=== PATIENT | female | born 1935 | race Caucasian/White ===

== ENCOUNTER → 2016-08-15 | Outpatient (CLI) | payer MEDICARE, BC ==
--- NOTE | 2016-08-16 07:18 | MM ---
Reason for exam: additional evaluation requested from abnormal screening. Last mammogram was performed less than 1 month ago. History: Patient is postmenopausal and has history of endometrial cancer at age 66. Cancelled Left Mammotome of the left breast, September 22, 2009. Benign cyst aspiration of the left breast, 1996. Physical Findings: Nurse did not find any significant physical abnormalities on exam. MG Work Up Mamm w CAD RT LM and CC with magnification view(s) were taken of the right breast. Prior study comparison: August 05, 2016, bilateral MG 3d screening mammo w/cad. August 03, 2015, bilateral MG screening mammo w CAD. Calcifications are part of the calcified vessel. No suspicious calcifications. These results were verbally communicated with the patient and result sheet given to the patient on 08/15/16. ASSESSMENT: Benign, BI-RAD 2 RECOMMENDATION: Return to routine screening mammogram schedule for both breasts.
== END | disposition home or self-care (01) ==
LOC: RADMAMWWP 14:22
PROVIDERS: ATTEND Internal Medicine Hematology & Oncology
DX: R92.8 Other abnormal and inconclusive findings on diagnostic imaging of breast (principal)

== ENCOUNTER 2017-01-11 06:53 | Day surgery (SDC) | payer MEDICARE, BC ==
--- NOTE | 2016-12-23 21:30 | P.GSHP ---
History of Present Illness H&P Date: 12/23/16 Chief Complaint: Left brachial skin lesion Patient seen in the office complaining of an atypical skin lesion in the left brachial region. It was first noticed a few months ago but has been increasing in size and at times his bleeding. The family states it is ulcerating at times. No history of similar events in the past. Only minimal discomfort. No prior biopsy. Past Medical History Past Medical History: Atrial Fibrillation, Coronary Artery Disease (CAD), Cancer , Deep Vein Thrombosis (DVT), GERD/Reflux, Hypertension Additional Past Medical History / Comment(s): Macular Degeneration, Needs hip replacement on Right Side. Greenfleid Filter in right leg. has gallstones, stage 4 kidney failure History of Any Multi-Drug Resistant Organisms: ESBL, VRE Date of last positivie culture/infection: 01/13/16 MDRO Source:: urine, E.coli, VRE 09/29/13 Past Surgical History: Appendectomy, Hysterectomy, Orthopedic Surgery Additional Past Surgical History / Comment(s): uterus ca 2001 and Groin Ca 2003 , gastrointestinal surgery for bowel obstruction 01/22/2014. left hip replacement Past Anesthesia/Blood Transfusion Reactions: No Reported Reaction Past Psychological History: No Psychological Hx Reported Smoking Status: Former smoker Past Alcohol Use History: None Reported Past Drug Use History: None Reported Medications and Allergies Home Medications Medication Instructions Recorded Confirmed Type Allopurinol [Zyloprim] 200 mg PO DAILY@79901/22/14 11/08/16 History Digoxin [Lanoxin] 125 mcg PO DAILY@69901/22/14 11/08/16 History Furosemide [Lasix] 40 mg PO DAILY@79901/22/14 11/08/16 History Linagliptin [Tradjenta] 5 mg PO DAILY@1600 01/22/14 11/08/16 History Omeprazole [PriLOSEC] 20 mg PO DAILY@69901/22/14 11/08/16 History Rivaroxaban [Xarelto] 15 mg PO DAILY@79901/22/14 11/08/16 History Spironolactone [Aldactone] 25 mg PO DAILY@79901/22/14 11/08/16 History Docusate Sodium [Stool Softener] 100 mg PO BID@899,199902/22/14 11/08/16 History Garlic 1 tab PO BID@899,199902/22/14 11/08/16 History Calcitriol 0.25 mcg PO DIRECTED 08/22/14 11/08/16 History Diclofenac Sodium Gel [Voltaren 1 applic TOPICAL Q8H PRN 01/13/16 11/08/16 History Gel] Diltiazem HCl [Diltiazem ER] 240 mg PO DAILY@0701/13/16 11/08/16 History Magnesium Oxide [Mag-Ox] 400 mg PO DAILY@79901/13/16 11/08/16 History Wheat Dextrin [Benefiber] 1 pack PO BID@799,199901/13/16 11/08/16 History traMADol HCL [Ultram] 50 mg PO Q8HR PRN 01/13/16 11/08/16 History Cholecalciferol [Vitamin D3] 2,000 mg PO DAILY 11/08/16 11/08/16 History Allergies Allergy/AdvReac Type Severity Reaction Status Date / Time atorvastatin calcium Allergy Unknown Verified 11/08/16 08:13 [From Lipitor] hydrocodone Allergy Vomiting Verified 11/08/16 08:13 Surgical - Exam GENERAL: Well-developed, well-nourished HEENT: Normocephalic, sclera nonicteric, EOM intact, no swelling CHEST: No deformities ABDOMEN: Soft, nontender, nondistended EXTREMITIES: No deformities, motor grossly intact, Left brachial region posterior laterally reveals a 1.5-2 cm raised ulcerated almost necrotic- appearing skin lesion minimally tender, no satellite lesions, no adenopathy in the axilla or Antecubital region NEURO: Awake and alert Assessment and Plan (1) Skin cancer Narrative/Plan: Options discussed with the patient and her family. They wish for us to proceed with surgical resection. We'll proceed under sedation. Risks of bleeding, infection, potential need for reresection,, recurrence were discussed. They understand and wish to proceed. Status: Acute
[2017-01-05 14:41] VITALS: BMI 33.0
[~2017-01-11 06:53] MED LIST: HEPARIN SODIUM,PORCINE 5,000 UNIT/ML 1 ML VIAL SQ ONE; HYDROmorphone 1 MG/ML 1 ML SYRINGE IVP PRN; LACTATED RINGERS 1,000 ML IV SCH; LIDOCAINE 1% 20 ML VIAL (10MG/ML) FOR IV START INTRADERMA PRN; Pre Op ABX Message 1 EACH MISC MISCELLANE ONE
[2017-01-11 07:21] VITALS: RESP 16; TEMP 97.7
[2017-01-11 07:25] LABS: Glucose,Whole Blood 146 mg/dL (75-99)
[2017-01-11] MEDS ORDERED: ONDANSETRON 4 MG/2 ML VIAL IVP ONE (07:49)
[2017-01-11] MEDS ORDERED: BUPIVACAIN-EPI 0.25%-1:200,000 30 ML VIAL SQ ONE ×2 (08:03)
[2017-01-11 08:13] LABS: Calcium 9.3 mg/dL (8.4-10.2); Potassium 4.2 mmol/L (3.5-5.1)
[2017-01-11] MEDS ORDERED: MIDAZOLAM 2 MG/2 ML VIAL ONE (08:24)
[2017-01-11] MEDS ORDERED: fentaNYL (PF) 50 MCG/ML 2 ML AMP ONE (08:24)
[2017-01-11] MEDS ORDERED: PROPOFOL 10 MG/ML 20 ML VIAL IV ONE (08:24)
[2017-01-11] MEDS ORDERED: SODIUM CHLORIDE 0.9% 50 ML with ceFAZolin 2,000 MG IV ONE ×2 (08:30)
[2017-01-11] MEDS ORDERED: BACITRACIN 500 UNIT/GM OINT 28.4 GM TUBE TOPICAL ONE (08:47)
[2017-01-11] MEDS ORDERED: HYDROcodone/APAP 5-325MG 1 EACH TAB PO PRN (08:59)
[2017-01-11] MEDS ORDERED: NALOXONE 0.4 MG/ML 1 ML VIAL IV PRN (08:59)
[2017-01-11 09:06] LABS: Glucose,Whole Blood 174 mg/dL (75-99)
--- NOTE | 2017-01-11 09:10 | P.OP ---
Date of Procedure: 01/11/17 Preoperative Diagnosis: Postoperative Diagnosis: Procedure(s) Performed: PREOPERATIVE DIAGNOSIS: Left arm lesion POSTOPERATIVE DIAGNOSIS: Same PROCEDURE: Excision left arm lesion SURGEON: Yevgeniy EBL: Minimal ANESTHESIA: Sedation COMPLICATIONS: None OPERATIVE PROCEDURE: Patient In the supine position. Left arm was prepped and draped in usual sterile fashion. The 2.1 cm mass in the left posterior brachial region was prepped and draped in usual sterile fashion. The skin was localized with Marcaine. An elliptical incision was made with a margin of approximately 6 mm laterally. The subcutaneous tissues were dissected using both the scalpel and electrocautery. The subcutaneous tissues were closed using 3-0 Vicryl sutures. The skin was closed using a running 4-0 nylon stitch. Sterile dressings were applied. DISPOSITION: Stable to recovery room Implants: Indications for Procedure: Operative Findings: Description of Procedure:
[2017-01-11 09:41] VITALS: BP 116/69; PULSE 71
== END 2017-01-11 09:52 | disposition home or self-care (01) ==
LOC: OR 06:53
PROVIDERS: ATTEND Surgery
DX: C44.619 Basal cell carcinoma of skin of left upper limb, including shoulder (principal); I10 Essential (primary) hypertension; E78.5 Hyperlipidemia, unspecified; I25.10 Atherosclerotic heart disease of native coronary artery without angina pectoris; I48.91 Unspecified atrial fibrillation; E11.9 Type 2 diabetes mellitus without complications; H35.30 Unspecified macular degeneration; K21.9 Gastro-esophageal reflux disease without esophagitis; M10.9 Gout, unspecified; Z87.891 Personal history of nicotine dependence; Z79.899 Other long term (current) drug therapy; Z79.01 Long term (current) use of anticoagulants; Z88.8 Allergy status to other drugs, medicaments and biological substances; Z86.718 Personal history of other venous thrombosis and embolism
CPT/HCPCS: 88305; 80048; 11603; J2250; J1644; J2405; J3010; J0690; J2704

== ENCOUNTER → 2017-02-24 | Outpatient (CLI) | payer MEDICARE, BC ==
--- NOTE | 2017-02-24 10:04 | CT ---
EXAMINATION TYPE: CT ChestAbdPelvis wo con DATE OF EXAM: 02/24/2017 COMPARISON: January 08, 2015 HISTORY: Carcinoma of the uterus CT DLP: 640.30mGycm Unenhanced CT of the Chest, Abdomen and Pelvis Unenhanced CT of the chest ,abdomen and pelvis is performed. The lack of intravenous contrast limits evaluation of the solid and hollow viscera. Oral contrast: Yes CT Chest: LUNGS: The lungs are clear and free of infiltrate or atelectasis. No pulmonary nodule or mass is det ected. No pleural effusion or CT evidence of interstitial lung disease. MEDIASTINUM: Thoracic aorta is of normal caliber. The heart is enlarged. No evidence for mediastin al mass or adenopathy. HILAR STRUCTURES: No evidence for mass. No hilar adenopathy is appreciated. OTHER: No significant abnormality. CONTRAST CT ABDOMEN AND PELVIS: LIVER/GB: Numerous calcified gallstones without wall thickening. No space occupying hepatic lesion. B iliary tree is of normal caliber. PANCREAS: No inflammation. No distinct mass. SPLEEN: No splenic enlargement. No lesion seen. ADRENALS: No nodule. No thickening. KIDNEYS/BLADDER: Renal parenchymal thinning noted bilaterally. No hydronephrosis. No nephrolithiasi s. No disctinct renal mass. BOWEL: Normal appendix. Normal bowel caliber. No inflammation. Small sliding-type hiatal hernia. Co lonic diverticulosis without diverticulitis. GENITAL ORGANS: No gross abnormality. LYMPH NODES: No greater than 1cm abdominal or pelvic lymph nodes areappreciated. AORTA: No significant abnormality. OSSEOUS STRUCTURES: Degenerative changes lumbar spine. Left hip prosthesis. OTHER: IVC filter is noted. IMPRESSION: 1. No CT evidence to suggest metastatic disease at this time. Overall stable examination.
== END | disposition home or self-care (01) ==
LOC: RADCTMAIN 09:19
PROVIDERS: ATTEND Internal Medicine Hematology & Oncology
DX: C54.9 Malignant neoplasm of corpus uteri, unspecified (principal)
CPT/HCPCS: 71250; 74176

== ENCOUNTER → 2017-05-11 | Outpatient (CLI) | payer MEDICARE, BC ==
[2017-05-11 14:02] VITALS: BP 176/84; PULSE 44; RESP 16; TEMP 97.4
--- NOTE | 2017-05-11 16:11 | P.CONS ---
History of Present Illness - Reason for Consult Consult date: 05/11/17 - History of Present Illness This is the initial consultation visit for this 81 years old female , with a chronic history of severe right hip pain, pain is constant and increases with any activity intensity of the pain is 8/10 increased to 10 over 10, he was diagnosed with also arthritis of the right hip and she was evaluated by orthopedic surgeon , Dr. Dr. Wan and he did not recommend surgical interventions, go she is high risk secondary to history of a blood clot in her right leg, and he recommended medication management, she'll continue to use Ultram 50 mg every morning and 50 mg every 2 p.m. and 100 mg daily at bedtime, she denies any side effect of the medication she denies any excessive drowsiness or sleepiness and she for the current medication helping to some degree but she wished that she had a better control of her pain, she tried Tylenol 3 she had significant side effects from it , she had side effects from hydrocodone and oxycodone, her insurance did not cover fentanyl patch,, she denies any bowel or bladder dysfunction, she describe her pain as sharp stabbing aching pain localized in the right hip area exacerbated with standing and walking and twisting bending, tried physical therapy without any benefit Past Medical History Past Medical History: Atrial Fibrillation, Coronary Artery Disease (CAD), Cancer , Diabetes Mellitus, Deep Vein Thrombosis (DVT), Eye Disorder, GERD/Reflux, Hypertension Additional Past Medical History / Comment(s): Macular Degeneration, Needs hip replacement on Right Side. Toyin Filter in right leg. has gallstones, stage 3 kidney failure; Uterine & groin CA; "borderline diabetes" History of Any Multi-Drug Resistant Organisms: ESBL, VRE Year Discovered:: 01/13/16 MDRO Source:: urine, E.coli, VRE 09/29/13 Past Surgical History: Appendectomy, Hysterectomy, Orthopedic Surgery Additional Past Surgical History / Comment(s): uterus ca 2001 and Groin Ca 2003 , gastrointestinal surgery for bowel obstruction 01/22/2014. left hip replacement Past Anesthesia/Blood Transfusion Reactions: No Reported Reaction Past Psychological History: No Psychological Hx Reported Smoking Status: Former smoker Past Alcohol Use History: None Reported Additional Past Alcohol Use History / Comment(s): smoked 1 pkg from 1961 to 1971 Past Drug Use History: None Reported - Past Family History Mother Family Medical History: No Reported History Medications and Allergies Home Medications Medication Instructions Recorded Confirmed Type Allopurinol [Zyloprim] 200 mg PO DAILY@0801/22/14 05/11/17 History Digoxin [Lanoxin] 125 mcg PO DAILY@0701/22/14 05/11/17 History Furosemide [Lasix] 40 mg PO DAILY@0800 01/22/14 05/11/17 History Linagliptin [Tradjenta] 5 mg PO DAILY@159901/22/14 05/11/17 History Omeprazole [PriLOSEC] 20 mg PO DAILY@69901/22/14 05/11/17 History Rivaroxaban [Xarelto] 15 mg PO DAILY@79901/22/14 05/11/17 History Spironolactone [Aldactone] 25 mg PO DAILY@79901/22/14 05/11/17 History Docusate Sodium [Stool Softener] 100 mg PO BID@0900,199902/22/14 05/11/17 History Garlic 1 tab PO BID@899,199902/22/14 05/11/17 History Calcitriol 0.25 mcg PO DIRECTED 08/22/14 05/11/17 History Diclofenac Sodium Gel [Voltaren 1 applic TOPICAL Q8H PRN 01/13/16 05/11/17 History Gel] Diltiazem HCl [Diltiazem ER] 240 mg PO DAILY@69901/13/16 05/11/17 History Magnesium Oxide [Mag-Ox] 400 mg PO DAILY@79901/13/16 05/11/17 History Wheat Dextrin [Benefiber] 1 pack PO BID@08,199901/13/16 05/11/17 History traMADol HCL [Ultram] 50 mg PO Q8HR PRN 01/13/16 05/11/17 History Cholecalciferol [Vitamin D3] 2,000 mg PO DAILY 11/08/16 05/11/17 History Acetaminophen [Tylenol Extra 500 mg PO DIRECTED PRN 05/11/17 05/11/17 History Strength] Brinzolamide/Brimonidine Tart 1 drop BOTH EYES BID 05/11/17 05/11/17 History [Simbrinza 1%-0.2% Eye Drops] Lanacane Otc Cream 05/11/17 History Vit C/E/Zn/Coppr/Lutein/Zeaxan 2 each PO DAILY 05/11/17 05/11/17 History [Preservision Areds 2 Softgel] Allergies Allergy/AdvReac Type Severity Reaction Status Date / Time atorvastatin calcium Allergy Unknown Verified 05/11/17 13:40 [From Lipitor] hydrocodone Allergy Vomiting Verified 05/11/17 13:40 Physical Exam Vitals: Vital Signs Temp Pulse Resp BP 05/11/17 13:45 97.4 F L 44 L 16 176/84 Intake and Output 05/11/17 05/11/17 05/11/17 06:59 14:59 22:59 Other: Weight 81.647 kg Patient Weight 05/12/17 06:59 Weight 81.647 kg Social history : not smoker , NO ETOH , NO Illegal drugs use Review of Systems : 1- Constitutional : no chills , no fever , no night sweats , 2- Ears : no ear discharge , no change in hearing 3-Nose, Mouth ,Throat ; no bleeding gums, no sore throat , no epistaxis , 4-Cardiovascular : Denies chest pain, , no orthopnea , no palpitation 5-Respiratory : Denies cough , no dyspnea , no hemoptysis 6-Gastrointestinal :, no change in bowel habits , no coffee- ground emesis . 7-Genitourinary : No hematuria , no discharge , no incontinence, 8-Musculoskeletal : No gait dysfunction , report low back pain , 9- Neurological : no ataxia , no tremor , no sezure , 10-Psychatric , no suicidal ideation no hallucination 11- Endocrine : no cold intolerence , no polyuria , no polydypsia , 12-Hematologic : no easy bleeding , no easy brusing , 13-Allergic / immunology : no angioedema , no wheezing ,no allergic rhinitis 14-Integumentary : no brttle nails , no change hair / nails , no foot/leg ulcers . Physical Examinations : 1-Constitutional : Cooperative , not in acute distress . 2-HEENT : nech ; supple , no Lymphadenopathy , no Thyromegaly , :eyes , no icterus, no photophobia . ENT : , normal oropharynx , no Thrush 3- Respiratory : Chest clear to auscultations Bilaterally , no wheezing . 4- Cardiovascular : irregular rate and rhythem , S1 , S2 , no S3 , no S4. 5- Gastrointestinal: abdomen soft no tenderness , no organomegally . 6- Genitourinary : Defferred . 7-Integumentary : No cellulitis , no ulcers , normal skin turgor , no cyanotic . 8- neurologic : Cranial nerve II to XII intact , no focal neurological deffecit 9-psychatric : alert , oriented X 3 , appropriate affect , intact judgment and insight . 10-Lymphatic : no Lymphadenopathy. 11- musculoskeltal: abnormal gait Severe pain in the right hip with flexion and extension and severe tenderness in the lateral palpation of the right hip, severe pain at the groin with manipulated the right hip joint Assessment and Plan Plan: Assessment and plan= severe right hip pain secondary to also arthritis of the right hip she is not candidate to have a total hip replacement secondary to history of blood clot in the right lower extremity Patient could benefit from increased the ultram to 50 mg 2 tablets every 8 hours ( total 6 per day ) In the future she continued to have pain then we can consider doing a block of the right hip and possible radiofrequency ablation of the hip joint , I will try to keep the interventional pain management as a last options ,because she had a history of atrial fibrillation and she is currently on blood thinner ( Xeralto ) also patient had a blood clot in the lower extremity, patient will be seen in the pain clinic in 4-6 weeks to reevaluate Time with Patient: Greater than 30
== END | disposition home or self-care (01) ==
LOC: PNWHC3 12:32
PROVIDERS: ATTEND Specialist
DX: M16.11 Unilateral primary osteoarthritis, right hip (principal); I48.91 Unspecified atrial fibrillation; I25.10 Atherosclerotic heart disease of native coronary artery without angina pectoris; E11.9 Type 2 diabetes mellitus without complications; K21.9 Gastro-esophageal reflux disease without esophagitis; I10 Essential (primary) hypertension; Z88.5 Allergy status to narcotic agent; Z88.8 Allergy status to other drugs, medicaments and biological substances; Z86.718 Personal history of other venous thrombosis and embolism; Z85.9 Personal history of malignant neoplasm, unspecified; Z87.891 Personal history of nicotine dependence; Z79.01 Long term (current) use of anticoagulants; Z79.899 Other long term (current) drug therapy
CPT/HCPCS: 99211

== ENCOUNTER → 2017-06-22 | Outpatient (CLI) | payer MEDICARE, BC ==
[2017-06-22 12:50] VITALS: BP 125/80; PULSE 75; RESP 16; TEMP 98.2
--- NOTE | 2017-06-22 14:47 | CT ---
EXAMINATION TYPE: CT lumbar spine wo con DATE OF EXAM: 06/22/2017 COMPARISON: NONE HISTORY: Right hip osteoarthritis CT DLP: 629.60 mGycm CONTRAST: None TECHNIQUE: CT of the lumbar spine is performed on a spiral scan at 3 mm thick sections. Reconstructed images are performed in the coronal and sagittal planes. FINDINGS: T10-T11: No focal disc herniation or significant disc bulge is evident. No spinal canal stenosis or n eural foraminal stenosis present. T11-T12: No focal disc herniation or significant disc bulge is evident. No spinal canal stenosis or neural foraminal stenosis present. T12-L1: No focal disc herniation or significant disc bulge is evident. No spinal canal stenosis or neural foraminal stenosis is present. There is a small left paracentral calcification likely calcific ation along the disc annulus which may have mild anterior thecal sac compression. No stenosis however is evident. L1-L2: Minimal disc bulge is present with anterior thecal sac contact. No spinal canal stenosis or ne ural foraminal stenosis present. L2-L3: Mild disc bulge has anterior thecal sac compression. No spinal canal stenosis or neural forami nal stenosis is present. L3-L4: Broad-based disc bulge has moderate anterior thecal sac compression. Ligamentum flavum laxity and facet hypertrophy are contributing to spinal canal stenosis. Bilateral foraminal narrowing is pre sent, greater on the left. L4-L5: Grade 1 spondylolisthesis is present with disc uncovering. Broad-based anterior thecal sac com pression from the disc uncovering is evident. Facet hypertrophy and ligamentum flavum laxity is contr ibuting to spinal canal stenosis at this level. Facet degenerative changes are present. L5-S1: Broad-based disc bulge is present with anterior thecal sac contact. No AP spinal canal stenosi s present. Some calcification of the posterior disc space may be present. Neural foramen are patent. Vertebral body heights are preserved. Minimal disc vacuum phenomenon may be present at L3-4. Vascular calcification is within the aorta. Note is made of an inferior vena cava filter. IMPRESSION: 1. Spinal canal stenosis due to disc bulging and facet hypertrophy with ligamentum flavum laxity L3-4 and to a lesser degree L4-5. 2. Grade 1 spondylolisthesis of L4 anterior and L5. 3. Additional levels of disc bulging with anterior thecal sac contact without stenosis.
--- NOTE | 2017-06-22 20:40 | P.PN ---
Subjective Progress Note Date: 06/22/17 this is 82 years old female with a chronic history of severe right hip pain, most with osteoarthritis of the hip and she is not a surgical candidate, or hip replacement because she had history of clot in the right lower extremity, he shouldn't currently complaining of severe low back pain, and severe right hip pain and she is currently on Ultram 50 mg 2 tablets every 8 hours, she continued to have severe pain in spite of the medication management, pain is constant and increases with any activity she is not able to ambulate on her own , she is using a cane, wheelchair , pain is constant but fluctuates in intensity between 6-10 over 10 Objective - Vital Signs Vital signs: Vital Signs Temp 98.2 F 06/22/17 12:39 Pulse 75 06/22/17 12:39 Resp 16 06/22/17 12:39 BP 125/80 06/22/17 12:39 Pulse Ox Intake & Output 06/22/17 06/22/17 06/23/17 06:59 18:59 06:59 Weight 80.739 kg - Exam Physical Examinations : 1-Constitutiona : Cooperative , not in acute distress . 2-HEENT : nech ; supple , no Lymphadenopathy , normal thyroid size . eyes : no ptosis , no icterus, no photophobia . ENT : normal of hearing , normal oropharynx , no Thrush . 3- Respiratory : Chest clear to auscultations Bilaterally , no wheezing , no Rhonchi . 4- Cardiovascular : regular rate and rhythem , S1 , S2 , no S3 , no S4. 5- Gastrointestinal : abdomen soft no tenderness , bowel sounds positive all four quadrents , no organomegally . 6- Genitourinary : Defferred . 7- neurologic : Cranial nerve II to XII intact , no focal neurological deffecit . 8-psychatric : alert , oriented X 3 , appropriate affect , intact judgment and insight . 9-Lymphatic : no Lymphadenopathy . 10- musculoskeltal : can not Ambulate on her own , severe pain in flexion and extension of the both hips R>L , Lumber spine = normal moter stegnth lower extremities ,thigh and legs .4/5 positive lumber facet Loading Test strait leg raising test positive at 30 degree , RT ,LT , Fabere test positive RT and positive LT . Sever tenderness over the Sacroiliac joint on the Right , and Left side Assessment and Plan Plan: Assessment and plan= chronic low back pain secondary to lumbar degenerative disc disease , lumbar spondylosis with lumbar facet arthropathy , Severe osteoarthritis of the hip joint mainly the right side,she is not a candidate to have right hip replacement chronic and current use of high-risk medication (opioids) Patient denies any side effects of the current pain medication and the current treatment/medication ML and the patient to do activity of daily living , Diagnoses, prognosis, treatment options, including but not limited to physical therapy, medication management, interventional therapies, and surgery, were discussed with the patient All the questions answered Patient signed the narcotic agreement, and he was orally counseled, not to overuse, not to abuse, not to Divert , not tp sell pain medication, and to take it as prescribed only, Patient was counseled not to drive or operate heavy equipment while using narcotic medication, and advised not to use alcohol or any Illicit drugs while using the narcotis, the patient's verbalized understanding that lack of compliance with any of the above instructions and will likely to cause discharge from the pain service, not to renew his narcotic prescriptions Medication managements= patient will be given prescription refills for 1-refile ultram 50 MG 2 TABLETS EVERY 8 HOURS WHEN NECESSAR Interventional pain management= we'll consider doing diagnostic medial branch block lumbar area L3-4 /l 45/L5-S1 (had to stop Xarelto for 24 hours before the procedure ) Refferal = to regularly department to have computed tomography scan of the lumbar spine (not candidate to have MRI because patient had a Toyin filter ) Follow-up=2-3 weeks ,
== END | disposition home or self-care (01) ==
LOC: PNWHC3 12:21
PROVIDERS: ATTEND Specialist
DX: M51.36 Other intervertebral disc degeneration, lumbar region (principal); M47.816 Spondylosis without myelopathy or radiculopathy, lumbar region; M46.86 Other specified inflammatory spondylopathies, lumbar region; M16.11 Unilateral primary osteoarthritis, right hip
CPT/HCPCS: 72131; G0463; 99211

== ENCOUNTER → 2017-07-20 | Outpatient (CLI) | payer MEDICARE, BC ==
[2017-07-20 12:55] VITALS: BP 157/81; RESP 18
--- NOTE | 2017-07-20 15:32 | P.PN ---
Subjective Progress Note Date: 07/20/17 This is follow-up visit for this patient with a history of severe and chronic hip pain and low back pain , diagnosed with osteoarthritis of the right hip , to surgical candidate because she had a clot in the lower extremity and , recently we ordered a computed tomography scan of the lumbar spine , as he today to diagnosed a result of the skin of the spine . Patients currently on 1-ultram 50 mg 2 tablets every 8 hours Patient denies any side effects of the medication, denies excessive drowsiness or sleepiness, denies suicidal ideation, and reports that the current pain medication is NOT helping To control the pain and improve activity of daily living Patient denies any motor or sensory deficit , patient denies any fever or night sweats, denies any change in the bowel movements or urination Physical Examinations : 1-Constitutiona : Cooperative , not in acute distress . 2-HEENT : nech ; supple , no Lymphadenopathy , no Thyromegaly , normal thyroid size . eyes : no ptosis , no icterus, no photophobia . ENT : normal of hearing , normal oropharynx , no Thrush . 3- Respiratory : Chest clear to auscultations Bilaterally , no wheezing , no Rhonchi . 4- Cardiovascular : regular rate and rhythem , S1 , S2 , no S3 , no S4. 5- Gastrointestinal : abdomen soft no tenderness , bowel sounds positive all four quadrents , no organomegally . 6- Genitourinary : Defferred . 7- neurologic : Cranial nerve II to XII intact , no focal neurological deffecit . 8-psychatric : alert , oriented X 3 , appropriate affect , intact judgment and insight . 9-Lymphatic : no Lymphadenopathy . 10- musculoskeltal : exams of the Lumber spine = motor strength lower extremities ,thigh and legs .4/5 deep tendon reflexes : normal Knee Jerk , normal ankle Jerk . lumber facet Loading Test positive strait leg raising test positive at 30 degree , RT ,LT , Fabere test positive RT and positive LT . Range of motion: Range of motion in flexion of the lumbar spine 30 degrees Range of motion range of motion of extension of the lumbar spine 10 Sever tenderness over the Sacroiliac joint on the Right , and Left side Active and passive movement of the right hip associated with severe pain Computed tomography scan of the lumbar spine reviewed and it showed patient had multilevel lumbar degenerative disc disease and lumbar facet arthropathy and lumbar anterolisthesis Assessment and plan = Chronic low back pain secondary to lumbar degenerative disc disease , lumbar spondylosis with facet arthropathy without myelopathy , severe right hip secondary to osteoarthritis of the right hip , patient is not a surgical candidate because she had a history of DVT in the lower extremity chronic and current use of high-risk medication (Opioids). Patient could benefit from a right hip steroid injections , seizure risk and benefits and alternatives discussed with the patient she agreed with the preceding patient has to stop her Xarelto 448 hours before the procedure
== END | disposition home or self-care (01) ==
LOC: PNWHC3 12:18
PROVIDERS: ATTEND Specialist
DX: G89.29 Other chronic pain (principal); M54.5 Low back pain; M25.551 Pain in right hip; M51.36 Other intervertebral disc degeneration, lumbar region; M47.816 Spondylosis without myelopathy or radiculopathy, lumbar region; M46.96 Unspecified inflammatory spondylopathy, lumbar region; M16.11 Unilateral primary osteoarthritis, right hip; Z79.899 Other long term (current) drug therapy; Z79.891 Long term (current) use of opiate analgesic
CPT/HCPCS: 99211

== ENCOUNTER → 2017-08-16 | Outpatient (CLI) | payer MEDICARE, BC ==
--- NOTE | 2017-08-17 07:42 | MM ---
Reason for exam: additional evaluation requested from prior study. Last mammogram was performed 1 year ago. History: Patient is postmenopausal and has history of endometrial cancer at age 66. Cancelled Left Mammotome of the left breast, September 22, 2009. Benign cyst aspiration of the left breast, 1996. Physical Findings: Nurse did not find any significant physical abnormalities on exam. MG 3D Diag Mammo W/Cad VIK Bilateral CC and MLO view(s) were taken. Prior study comparison: August 15, 2016, right breast MG work up mamm w CAD RT. August 05, 2016, bilateral MG 3d screening mammo w/cad. The breast tissue is heterogeneously dense. This may lower the sensitivity of mammography. Stable benign calcifications. Area improves in the upper outer quadrant, 10cm from nipple. Ultrasound is recommended. These results were verbally communicated with the patient and result sheet given to the patient on 08/16/17. ASSESSMENT: Incomplete: need additional imaging evaluation, BI-RAD 0 RECOMMENDATION: Ultrasound of the left breast.
--- NOTE | 2017-08-17 07:44 | USB ---
Reason for exam: additional evaluation requested from abnormal screening. History: Patient is postmenopausal and has history of endometrial cancer at age 66. Cancelled Left Mammotome of the left breast, September 22, 2009. Benign cyst aspiration of the left breast, 1996. US Breast Limited LT Left breast ultrasound demonstrates a 8 x 3 x 8mm lobular, mixed, hypoechoic lesion at 2 o'clock. These results were verbally communicated with the patient and result sheet given to the patient on 08/16/17. ASSESSMENT: Suspicious, BI-RAD 4 RECOMMENDATION: Ultrasound core biopsy of the left breast. Called Dr. Barreto with mammographic findings and has scheduled an appointment for the patient for 09/13/17 at 1:[address] Vuong. Biopsy scheduled for 08/31/17 at 12:20. PRELIMINARY REPORT CALLED AND FAXED TO DR. VUONG ON 08/17/17.
== END | disposition home or self-care (01) ==
LOC: RADMAMWWP 14:15
PROVIDERS: ATTEND Internal Medicine Hematology & Oncology
DX: R92.8 Other abnormal and inconclusive findings on diagnostic imaging of breast (principal)
CPT/HCPCS: 77066; 76642; G0279

== ENCOUNTER → 2017-08-24 | Outpatient (CLI) | payer MEDICARE, BC ==
[2017-08-24 10:47] LABS: Potassium 4.8 mmol/L (3.5-5.1)
== END ==
LOC: LABWHC1 09:56
PROVIDERS: ATTEND Internal Medicine Interventional Cardiology
DX: I10 Essential (primary) hypertension (principal)
CPT/HCPCS: 36415; 80051; 82565; 84520

== ENCOUNTER → 2017-08-31 | Day surgery (SDC) | payer MEDICARE, BC ==
[2017-08-31 11:39] VITALS: RESP 16; BMI 33.0
[2017-08-31 13:46] VITALS: BP 152/80; PULSE 75; TEMP 97.6
--- NOTE | 2017-08-31 19:56 | USB ---
EXAMINATION TYPE: US biopsy breast VAD LT DATE OF EXAM: 08/31/2017 CLINICAL HISTORY: R92.8 PREV ABN MAMMO. TECHNIQUE: Ultrasound guided core biopsy of left breast. COMPARISON: 08/16/2017 ultrasound and mammogram. FINDINGS: The procedure of ultrasound guided core biopsy was explained to the patient. Benefits, alternatives, and risks were discussed. An informed consent was then obtained. The patient was placed in supine positioning for imaging and for the procedure. The overlying skin was prepped and draped in usual sterile fashion. Lidocaine buffered with bicarbonate was used as anesthetic into the skin and subcutaneous tissue up to area of concern in the left breast. A erika was made with surgical scalpel. Under ultrasound guidance, a 12-gauge vacuum assisted biopsy gun device was used to obtain 4 core samples. Additional sampling was not performed as the lesion was largely resected and the biopsy window was very close to a known vessel. Additionally, patient had slight discomfort with the fourth biopsy. Following this, a biopsy clip was left in lesion. The patient tolerated the procedure well without any immediate complication. Good hemostasis was obtained with direct pressure. Discharge instructions were discussed with the patient. Patient tolerated procedure very well. Patient will follow-up with her referring physician. Postprocedure mammogram ordered by the physician was obtained. Clip appears to be within the region evaluated with diagnostic mammography 08/16/2017. IMPRESSION: 1. Successful ultrasound-guided core biopsy left breast upper outer quadrant. Recommendations: 1. Recommendations are pending pathology results. Pathology Results: Benign BREAST, LEFT, ULTRASOUND GUIDED CORE BIOPSY: FIBROCYSTIC CHANGE (STROMAL FIBROSIS, CYST FORMATION, ADENOSIS, COLUMNAR CELL CHANGE, DUCT HYPERPLASIA AND CALCIFICATIONS). Recommendation Follow up mammogram of the left breast in 6 months. SUJATHA
--- NOTE | 2017-09-01 07:35 | MM ---
Reason for exam: additional evaluation requested from abnormal screening. Last mammogram was performed less than 1 month ago. History: Patient is postmenopausal and has history of endometrial cancer at age 66. Cancelled Left Mammotome of the left breast, September 22, 2009. Benign cyst aspiration of the left breast, 1996. MG Diagnostic Mammo LT Wo CAD CC and LM view(s) were taken of the left breast. Prior study comparison: August 16, 2017, bilateral MG 3d diag mammo w/cad VIK. August 15, 2016, right breast MG work up mamm w CAD RT. ASSESSMENT: Post procedure mammogram for marker placement RECOMMENDATION: Ultrasound of the left breast in 6 months. PENDING PATHOLOGY RESULTS.
== END ==
LOC: RADUSWWP 11:11
PROVIDERS: ATTEND Surgery
DX: N60.32 Fibrosclerosis of left breast (principal); N60.02 Solitary cyst of left breast; N60.22 Fibroadenosis of left breast; N60.92 Unspecified benign mammary dysplasia of left breast; R92.1 Mammographic calcification found on diagnostic imaging of breast; Z88.5 Allergy status to narcotic agent; Z88.8 Allergy status to other drugs, medicaments and biological substances
CPT/HCPCS: 88305; 77065; 19083; A4648; J2001

== ENCOUNTER 2017-09-28 10:12 | Day surgery (SDC) | payer MEDICARE, BC ==
[2017-09-26 11:13] VITALS: BMI 34.4
[2017-09-28 10:38] VITALS: TEMP 97.9
[2017-09-28] MEDS: LACTATED RINGERS 1,000 ML IV SCH ×2 (10:39→10:43)
[2017-09-28 10:51] LABS: Glucose,Whole Blood 132 mg/dL (75-99)
--- NOTE | 2017-09-28 11:17 | P.PCN ---
Date of Procedure: 09/28/17 Procedure(s) Performed: Preoperative diagnoses= 1-severe osteoarthritis of the right hip. 2-lumbar degenerative disc disease. 3-lumbar spondylosis with lumbar facet arthropathy Postoperative diagnoses= same as preoperative diagnosis. Procedure= Right hip joint steroid injection under fluoroscopic guidance. Anesthesia= moderate sedation with Versed 2 mg and fentanyl 100 micrograms and local infiltration with lidocaine 1% 2 ml Estimated blood loss=minimal. Procedure indication= the patient had a history of severe chronic low back pain , diagnosed with sacroiliitis and lumbar sacral facet arthropathy unresponsive to conservative treatment. Procedure description= the patient was seen and identified in the preoperative holding area, risks and benefits and alternative of the procedure and possible complications discussed with the patient, and he agreed with the preceding, patient signed the consent, an IV was started, and vital signs were monitored and were stable throughout the procedure, patient was placed in the supine position or table and the right hip area was prepped and draped with a sterile fashion, vital signs were closely monitored during the procedure, the fluoroscopy camera was placed in the PA view on the right hip joint and the lower part of the joint was identified, local infiltration of the skin and subcutaneous tissue with lidocaine 1% 2 mL then a 22-gauge Quincke-type 5 inches spinal needle advanced slowly under fluoroscopy and placed in the anterior , inferior border of the right hip joint, placement confirmed with AP and lateral view, and with injections of omnipaque 2 ml , and after appropriate needle placement confirmed and after negative aspiration for heme and CSF and there was no paresthesia during the injection, 5 ml of Marcaine 0.5% and 40 mg of Kenalog injected after negative aspiration, the needle removed, Patient tolerated the procedure well without any complication, the hip area was cleaned and a Band-Aid applied, the patient transported to recovery room in stable condition and he was monitored for 30 minutes before he was discharged home and then patient was reexamined before going home and patient was discharged in stable condition and patient will follow up with the pain clinic in a few weeks
[2017-09-28] MEDS ORDERED: IV FLUID CONTINUATION 1,000 ML IV ONE (11:21)
[2017-09-28 11:42] VITALS: PULSE 75
[2017-09-28] MEDS ORDERED: HYDROcodone/APAP 5-325MG 1 EACH TAB PO ONE (11:46)
[2017-09-28 11:52] VITALS: BP 153/96; RESP 18
--- NOTE | 2017-09-28 14:38 | FL ---
Fluoroscopy HISTORY: Pain 16 seconds fluoroscopy time supplied to the referring clinician. 1 intraoperative C-arm images docum ent the procedure. See dictated report from anesthesia.
== END 2017-09-28 12:22 | disposition home or self-care (01) ==
LOC: ORPAIN 10:12
PROVIDERS: ATTEND Specialist
DX: M16.11 Unilateral primary osteoarthritis, right hip (principal); M51.36 Other intervertebral disc degeneration, lumbar region; M47.816 Spondylosis without myelopathy or radiculopathy, lumbar region; Z79.01 Long term (current) use of anticoagulants; Z88.6 Allergy status to analgesic agent; Z88.5 Allergy status to narcotic agent; Z88.8 Allergy status to other drugs, medicaments and biological substances
CPT/HCPCS: 20610; J2250; J3301; Q9965; J3010; 99152

== ENCOUNTER → 2017-10-26 | Day surgery (SDC) | payer MEDICARE, BC ==
[2017-10-24 14:54] VITALS: BMI 32.7
[~2017-10-26] MED LIST changes: -HEPARIN SODIUM,PORCINE 5,000 UNIT/ML 1 ML VIAL SQ ONE; -HYDROmorphone 1 MG/ML 1 ML SYRINGE IVP PRN; +IV FLUID CONTINUATION 1,000 ML IV ONE; +LIDOCAINE 1% 20 ML VIAL (10MG/ML) FOR IV START INTRADERMA ONE; -LIDOCAINE 1% 20 ML VIAL (10MG/ML) FOR IV START INTRADERMA PRN; -Pre Op ABX Message 1 EACH MISC MISCELLANE ONE
[2017-10-26 10:31] VITALS: TEMP 97.6
[2017-10-26 10:38] LABS: Glucose,Whole Blood 157 mg/dL (75-99)
--- NOTE | 2017-10-26 11:03 | P.PCN ---
Date of Procedure: 10/26/17 Procedure(s) Performed: Preoperative diagnoses= 1-severe osteoarthritis of the right hip joint 2- lumbar degenerative disc disease 3-lumbar spondylosis with lumbar facet arthropathy Postoperative diagnoses= same as preoperative diagnosis. Procedure= Right hip showing steroid injections under fluoroscopy guidance Anesthesia= moderate sedation with Versed 1 mg and fentanyl 50 micrograms and local infiltration with lidocaine 1% 2 ml Estimated blood loss=minimal. Procedure indication= the patient had a history of severe chronic low back pain today] osteoarthritis of the right hip joint and lumbar sacral facet arthropathy unresponsive to conservative treatment. Procedure description= the patient was seen and identified in the preoperative holding area, risks and benefits and alternative of the procedure and possible complications discussed with the patient, and he agreed with the preceding, patient signed the consent, an IV was started, and vital signs were monitored and were stable throughout the procedure, patient was placed in the supine position or table, and the right hip area was prepped and draped with a sterile fashion, vital signs were closely monitored during the procedure, the fluoroscopy camera was placed in the contralateral oblique view on the right sacroiliac joint and the lower part of the joint was identified, local infiltration of the skin and subcutaneous tissue with lidocaine 1% 2 mL then a 22-gauge 5 inches Quincke-type spinal needle advanced slowly under fluoroscopy and placed in the anterior, and inferior border of the right hip joint, placement confirmed with AP and lateral view, and after appropriate needle placement confirmed and after negative aspiration for heme and CSF , and after injection of Omnipaque 180 mg/mL 2 mL injected , which showed appropriate placement of the needle and there was no paresthesia during the injection, 5 ml of Marcaine 0.5% and 40 mg of Kenalog injected after negative aspiration, the needle removed, Patient tolerated the procedure well without any complication, The patient returned to supine position after the back was cleaned and a Band- Aid applied, the patient transported to recovery room in stable condition and he was monitored for 30 minutes before he was discharged home and then patient was reexamined before going home and patient was discharged in stable condition and patient will follow up with the pain clinic in a few weeks , if she gets good results after the injection today she would be good candidate to have RF of the right hip joint Patient gets more than 80% decrease in her right hip pain, after the first hip injection done a few weeks ago
[2017-10-26 11:15] VITALS: RESP 18
[2017-10-26 11:32] VITALS: BP 140/83; PULSE 73
--- NOTE | 2017-10-26 13:17 | FL ---
Fluoroscopy HISTORY: Pain 5 seconds fluoroscopy time supplied to the referring clinician. 1 intraoperative C-arm images docume nt the procedure. See dictated report from anesthesia.
== END | disposition home or self-care (01) ==
LOC: ORPAIN 08:39
PROVIDERS: ATTEND Specialist
DX: G89.29 Other chronic pain (principal); M16.11 Unilateral primary osteoarthritis, right hip; M51.36 Other intervertebral disc degeneration, lumbar region; E11.9 Type 2 diabetes mellitus without complications; I25.10 Atherosclerotic heart disease of native coronary artery without angina pectoris; I48.91 Unspecified atrial fibrillation; Z79.01 Long term (current) use of anticoagulants; Z88.5 Allergy status to narcotic agent; Z88.6 Allergy status to analgesic agent; Z86.718 Personal history of other venous thrombosis and embolism
CPT/HCPCS: 20610; J2250; J1030; Q9965; J3010; 99152

== ENCOUNTER → 2017-11-20 | Outpatient (CLI) | payer MEDICARE, BC ==
--- NOTE | 2017-11-20 15:02 | P.PN ---
Progress Note - Text Progress Note Date: 11/20/17 Patient returns for followup for chronic R hip pain without substantial radiation. Patient recently underwent R hip steroid injection (intra-articular ) x 2, which provided two weeks' relief from first procedure and less than 1 day 's relief from second. Patient continues on tramadol medications for pain with some relief. Patient denies adverse drug effects from medications. Today, pt denies new-onset weakness, bowel/bladder incontinence, or any other signs or symptoms of cauda equina syndrome. There are no signs of acute intoxication, and no indications of medication diversion or overuse. In addition to above, 13-point review of systems is also negative for chest pain , shortness of breath, changes in vision, changes in hearing, new onset weakness , abdominal pain, diarrhea, extreme fatigue, malaise, fever, skin changes, homicidal or suicidal ideation, or bowel or bladder incontinence. Vital Signs: Reviewed in EMR Gen: WDWN, AAOx3, NAD HEENT: NCAT, EOMI, hearing grossly normal Pulm: resp unlabored Abd: soft, NT, ND Neck: supple, trachea midline ROM in flexion lumbar spine: neg ROM in extension lumbar spine: neg Lumbar paravertebral tenderness: neg Facet loading: neg SI joint tenderness: + R side Carroll's test: + R side Straight leg raise: neg Imaging: Reviewed in EMR Assessment: 1. hip OA 2. SIJ dysfunction 3. chronic pain syndrome Plan: 1. Explanation: Opioid and psychological risk scores were reviewed. Diagnoses , prognoses, and multiple treatment options including but not limited to physical therapy, interventional therapies, adjuvant medical therapies, narcotic medication therapies, and surgery were discussed with the patient and all questions were answered to the patient's satisfaction. 2. Opioid agreement: Patient has previously signed narcotic agreement, and was orally counseled to not overuse, abuse, divert, or cell medications, and to take them as prescribed by only 1 healthcare provider. The patient was also counseled to store opioid medications in a safe and preferably locked location. Patient was also counseled against driving or operating heavy equipment while using narcotic medications and also to not use alcohol or any illicit or recreational drugs. The patient verbalized understanding that lack of compliance with any of the above and likely result in failure to renew narcotic prescriptions, possible discharge from the clinic, and possible legal ramifications thereafter if indicated. 3. Counseling: The patient was counseled extensively on BODY MASS INDEX, EXERCISE. Specifically, the patient was instructed regarding the importance of weight control, and exercise in the context of both chronic pain and overall health. 4. Procedures: R SIJ injection + R trochanteric bursa injection 5. Consultations: None 6. Investigations: UDS not done today, MAPS queried and appropriate 7. Medications: none for now, patient has refills 8. Disposition: f/u for procedure as scheduled; anticipate decreasing tramadol to #120 in future if patient gets relief from procedures
[2017-11-20 15:29] VITALS: BP 147/77; PULSE 75; RESP 16
== END | disposition home or self-care (01) ==
LOC: PNWHC3 14:23
PROVIDERS: ATTEND Anesthesiology
DX: G89.4 Chronic pain syndrome (principal); M16.10 Unilateral primary osteoarthritis, unspecified hip; M53.3 Sacrococcygeal disorders, not elsewhere classified; Z79.891 Long term (current) use of opiate analgesic
CPT/HCPCS: 99211

== ENCOUNTER 2017-12-02 15:30 | Inpatient (IN) | payer MEDICARE, BC ==
[2017-12-02] MEDS ORDERED: IPRATROPIUM-ALBUTEROL 3 ML NEB INHALATION STA (15:51)
--- NOTE | 2017-12-02 15:54 | ED ---
Chest Pain HPI - General Chief Complaint: Chest Pain Stated Complaint: CP Time Seen by Provider: 12/02/17 15:39 Source: patient, family, RN notes reviewed Mode of arrival: wheelchair Limitations: no limitations - History of Present Illness Initial Comments: This 82-year-old female who presents with family members complaints of shortness of breath and chest pain for the past 3 days she had a 4 pound weight gain overnight she has a history of chronic right DVT. History of chronic A. fib. No fevers chills nausea vomiting sweats. She recently was changed from digoxin to metoprolol. Patient has also been having some intermittent right upper quadrant discomfort the family does believe it may be intermittent episodes of gallbladder pain. No other complaints are reported problems at this time MD Complaint: chest pain, other - Related Data Home Medications Medication Instructions Recorded Confirmed Allopurinol [Zyloprim] 200 mg PO DAILY 01/22/14 11/20/17 Furosemide [Lasix] 20 mg PO Q48H 01/22/14 11/20/17 Linagliptin [Tradjenta] 5 mg PO DAILY@1600 01/22/14 11/20/17 Omeprazole [PriLOSEC] 20 mg PO QAM 01/22/14 11/20/17 Rivaroxaban [Xarelto] 15 mg PO QAM 01/22/14 11/20/17 Spironolactone [Aldactone] 25 mg PO QAM 01/22/14 11/20/17 Docusate Sodium [Stool Softener] 100 mg PO BID 02/22/14 11/20/17 Garlic 1 tab PO BID 02/22/14 11/20/17 Calcitriol 0.25 mcg PO SUTUTHSA 08/22/14 11/20/17 Diclofenac Sodium Gel [Voltaren 1 applic TOPICAL Q8H PRN 01/13/16 11/20/17 Gel] Diltiazem HCl [Diltiazem ER] 240 mg PO QAM 01/13/16 11/20/17 Magnesium Oxide [Mag-Ox] 400 mg PO QAM 01/13/16 11/20/17 Wheat Dextrin [Benefiber] 1 pack PO BID 01/13/16 11/20/17 traMADol HCL [Ultram] 50 mg PO Q6HR PRN 01/13/16 11/20/17 Cholecalciferol [Vitamin D3] 5,000 mg PO QMONTH 11/08/16 11/20/17 Acetaminophen [Tylenol Extra 500 mg PO DIRECTED PRN 05/11/17 11/20/17 Strength] Brinzolamide/Brimonidine Tart 1 drop BOTH EYES BID 05/11/17 11/20/17 [Simbrinza 1%-0.2% Eye Drops] Vit C/E/Zn/Coppr/Lutein/Zeaxan 2 each PO DAILY 05/11/17 11/20/17 [Preservision Areds 2 Softgel] Furosemide [Lasix] 40 mg PO Q48H 10/24/17 11/20/17 Allergies Allergy/AdvReac Type Severity Reaction Status Date / Time acetaminophen Allergy Unknown Verified 11/20/17 15:20 [From Tylenol-Codeine #3] atorvastatin calcium Allergy Unknown Verified 11/20/17 15:20 [From Lipitor] codeine Allergy Unknown Verified 11/20/17 15:20 [From Tylenol-Codeine #3] hydrocodone Allergy Vomiting Verified 11/20/17 15:20 Review of Systems ROS Statement: Those systems with pertinent positive or pertinent negative responses have been documented in the HPI. ROS Other: All systems not noted in ROS Statement are negative. EKG Findings - EKG Results: EKG: interpreted by ERMD, sinus rhythm (Atrial fibrillation rate 94 QRS 80 QT since QTC of 358/447 nonspecific T-wave configuration) Past Medical History Past Medical History: Atrial Fibrillation, Coronary Artery Disease (CAD), Cancer , Diabetes Mellitus, Deep Vein Thrombosis (DVT), Eye Disorder, GERD/Reflux, Hypertension, Renal Disease Additional Past Medical History / Comment(s): Macular Degeneration, gallstones, stage 3 kidney failure, hx Uterine & groin CA; WEARS BILAT THIGH HIGH HOSE, uses cane or walker History of Any Multi-Drug Resistant Organisms: ESBL, VRE Date of last positivie culture/infection: 01/13/16 MDRO Source:: urine, E.coli, VRE 09/29/13 Past Surgical History: Appendectomy, Bowel Resection, Hysterectomy, Joint Replacement Additional Past Surgical History / Comment(s): gastrointestinal surgery for bowel obstruction. left hip replacement, rt breast biopsy, darcy filter rt leg, Past Anesthesia/Blood Transfusion Reactions: No Reported Reaction Past Psychological History: No Psychological Hx Reported Smoking Status: Former smoker Past Alcohol Use History: None Reported Past Drug Use History: None Reported - Past Family History Mother Family Medical History: No Reported History General Exam - General Exam Comments Initial Comments: This is a well-developed well-nourished awake alert oriented 3 female Limitations: no limitations General appearance: alert, in no apparent distress Head exam: Present: atraumatic, normocephalic, normal inspection Eye exam: Present: normal appearance, PERRL, EOMI. Absent: scleral icterus, conjunctival injection, periorbital swelling ENT exam: Present: normal exam, mucous membranes moist Neck exam: Present: normal inspection. Absent: tenderness, meningismus, lymphadenopathy Respiratory exam: Present: decreased breath sounds. Absent: respiratory distress, wheezes, rales, rhonchi, stridor Cardiovascular Exam: Present: irregular rhythm. Absent: systolic murmur, diastolic murmur, rubs, gallop, clicks GI/Abdominal exam: Present: soft, normal bowel sounds. Absent: distended, tenderness, guarding, rebound, rigid Extremities exam: Present: full ROM, normal capillary refill, pedal edema. Absent: tenderness, joint swelling, calf tenderness Back exam: Present: normal inspection Neurological exam: Present: alert, oriented X3, CN II-XII intact Psychiatric exam: Present: normal affect, normal mood Skin exam: Present: warm, dry, intact, normal color. Absent: rash Course Vital Signs 12/02/17 12/02/17 12/02/17 15:35 16:01 16:18 Temperature 97.1 F L Pulse Rate 94 82 90 Respiratory 18 16 Rate Blood Pressure 122/80 134/79 O2 Sat by Pulse 93 L Oximetry 12/02/17 12/02/17 12/02/17 16:27 17:31 18:00 Temperature Pulse Rate 90 78 83 Respiratory 18 16 Rate Blood Pressure 112/83 111/73 O2 Sat by Pulse 96 96 Oximetry 12/02/17 19:09 Temperature Pulse Rate 83 Respiratory 16 Rate Blood Pressure 111/64 O2 Sat by Pulse 98 Oximetry - Reevaluation(s) Reevaluation #1: 12/02/17 19:12 Reevaluation patient reveals some improvement after the nebulizer treatment she still dyspneic however. Chest Pain MDM - MDM Review the x-ray shows evidence can't medically and CHF. I did discuss findings with patient family as well as with Dr. Rodriges, patient will be admitted for inpatient treatment of congestive heart failure renal insufficiency Critical Care Time Critical Care Time: Yes Critical Care Time: 37 minutes of critical care time which includes the initial history physical evaluation the presentation several reevaluation the patient discussed with the patient family members discussion with the admitting physician and documentation of the above Disposition Clinical Impression: Congestive heart failure (CHF), Acute bronchospasm, Renal insufficiency syndrome, Chronic atrial fibrillation Disposition: ADMITTED IP TO THIS HOSP Condition: Stable Referrals: Jak Nathan MD [Primary Care Provider] - 1-2 days
[2017-12-02 16:09] LABS: Basophils % (A) 0 %; Eosinophils # (A) 0.1 k/uL (0-0.7); Eosinophils % (A) 1 %; HCT 38.3 % (34.0-46.0); HGB 11.9 gm/dL (11.4-16.0); Hypochromasia Slight; Lymphocytes # (A) 1.5 k/uL (1.0-4.8); Lymphocytes % (A) 11 %; MCH 32.4 pg (25.0-35.0); MCHC 31.2 g/dL (31.0-37.0); MCV 104.1 fL (80.0-100.0); Macrocytosis Moderate; Mean Platelet Volume 8.6; Monocytes # (A) 0.6 k/uL (0-1.0); Monocytes % (A) 4 %; Neutrophils # (A) 11.9 k/uL (1.3-7.7); Neutrophils % (A) 84 %; Platelet Count 243 k/uL (150-450); RBC 3.68 m/uL (3.80-5.40); RDW 15.6 % (11.5-15.5); WBC 14.2 k/uL (3.8-10.6)
[2017-12-02 16:20] LABS: Calcium 9.7 mg/dL (8.4-10.2); Magnesium 2.3 mg/dL (1.6-2.3); Potassium 5.2 mmol/L (3.5-5.1); Total Bilirubin 0.8 mg/dL (0.2-1.3); Total Protein 6.7 g/dL (6.3-8.2)
[2017-12-02 16:23] LABS: INR 1.5 (<1.2); Prothrombin Time 14.2 sec (9.0-12.0)
[2017-12-02 16:24] LABS: Creatine Kinase <20 U/L (30-135)
[2017-12-02 16:31] LABS: D-Dimer 0.94 mg/L FEU (<0.60)
[2017-12-02 16:37] LABS: Amylase 69 U/L (30-110); Lipase 139 U/L (23-300)
[2017-12-02 16:38] LABS: Troponin I 0.038 ng/mL (0.000-0.034)
--- NOTE | 2017-12-02 17:03 | XR ---
EXAMINATION TYPE: XR chest 2V DATE OF EXAM: 12/02/2017 COMPARISON: 01/13/2016 HISTORY: 82-year-old female difficulty breathing TECHNIQUE: AP and lateral views FINDINGS: Heart mildly enlarged. Diffuse interstitial prominence. Strands of atelectasis in the mid lungs. Poss ible trace effusions. IMPRESSION: Mild cardiomegaly and interstitial changes increased from prior. Trace effusions. Correlate for mild CHF.
[2017-12-02] MEDS ORDERED: FUROSEMIDE 10 MG/ML 4 ML VIAL IV STA (17:51)
[2017-12-02] MEDS ORDERED: ACETAMINOPHEN TAB 500 MG TAB PO PRN (19:18)
[2017-12-02] MEDS ORDERED: DICLOFENAC SODIUM GEL 100 GM TUBE TOPICAL PRN (19:18)
[2017-12-02] MEDS: DOCUSATE 100 MG CAP PO SCH (21:47)
[2017-12-02] MEDS: NITROGLYCERIN OINT 1 INCH/GM PACKET TOPICAL SCH (21:48)
[2017-12-02] MEDS: DORZOLAMIDE HCL 2% DROPS 10 ML BTL BOTH EYES SCH (21:48)
[2017-12-02] MEDS: BRIMONIDINE TARTRATE 0.2% DROPS 5 ML BTL BOTH EYES SCH (21:48)
[2017-12-02] MEDS: traMADol 50 MG TAB PO PRN (21:56)
[2017-12-02] MEDS: FUROSEMIDE 10 MG/ML 4 ML VIAL IV SCH (21:58)
[2017-12-03] MEDS: traMADol 50 MG TAB PO PRN ×3 (04:27→21:45)
[2017-12-03 04:51] LABS: Anisocytosis Slight; Basophils # (A) 0.1 k/uL (0-0.2); Basophils % (A) 1 %; Eosinophils # (A) 0.1 k/uL (0-0.7); Eosinophils % (A) 1 %; HCT 34.3 % (34.0-46.0); HGB 10.5 gm/dL (11.4-16.0); Lymphocytes # (A) 1.5 k/uL (1.0-4.8); Lymphocytes % (A) 14 %; MCH 32.3 pg (25.0-35.0); MCHC 30.8 g/dL (31.0-37.0); Macrocytosis Moderate; Mean Platelet Volume 8.3; Monocytes # (A) 0.5 k/uL (0-1.0); Monocytes % (A) 4 %; Neutrophils % (A) 78 %; Platelet Count 207 k/uL (150-450); RBC 3.26 m/uL (3.80-5.40); RDW 16.1 % (11.5-15.5); WBC 10.3 k/uL (3.8-10.6)
[2017-12-03 04:58] LABS: Calcium 9.5 mg/dL (8.4-10.2)
[2017-12-03 05:05] LABS: Potassium 4.4 mmol/L (3.5-5.1)
[2017-12-03 05:57] LABS: Glucose,Whole Blood 116 mg/dL (75-99)
[2017-12-03] MEDS: FUROSEMIDE 10 MG/ML 4 ML VIAL IV SCH ×2 (06:19→19:00)
[2017-12-03] MEDS: PANTOPRAZOLE 40 MG TABLET PO SCH (06:19)
[2017-12-03] MEDS: NITROGLYCERIN OINT 1 INCH/GM PACKET TOPICAL SCH ×2 (09:29→15:49)
[2017-12-03] MEDS: SPIRONOLACTONE 25 MG TAB PO SCH (09:29)
[2017-12-03] MEDS: DORZOLAMIDE HCL 2% DROPS 10 ML BTL BOTH EYES SCH ×2 (09:29→19:57)
[2017-12-03] MEDS: DILTIAZEM CD 240 MG CAP.ER.24H PO SCH (09:30)
[2017-12-03] MEDS: CHOLECALCIFEROL 1,000 UNIT TAB PO SCH (09:30)
[2017-12-03] MEDS: RIVAROXABAN 15 MG TAB PO SCH (09:30)
[2017-12-03] MEDS: DOCUSATE 100 MG CAP PO SCH ×2 (09:30→19:57)
[2017-12-03] MEDS: BRIMONIDINE TARTRATE 0.2% DROPS 5 ML BTL BOTH EYES SCH ×2 (09:30→19:57)
[2017-12-03] MEDS: ALLOPURINOL 100 MG TAB PO SCH (09:30)
[2017-12-03 11:27] LABS: Glucose,Whole Blood 182 mg/dL (75-99)
--- NOTE | 2017-12-03 13:10 | P.HPIM ---
History of Present Illness H&P Date: 12/03/17 Chief Complaint: Shortness of breath This is a 82-year-old female with past medical history noted below presented to the emergency room with shortness of breath. Patient said that her symptoms started few days ago and is being getting progressively worse. Yesterday she was having difficulty even walking around without being short of breath. She also reported worsening lower extremity edema. Patient said that she had chronic edema involving the right lower extremity where she was diagnosed with a chronic DVT years and years ago and she is maintained on anticoagulation. She also had a history of [place] filter placed several years ago. She is on anticoagulation at home with Rivaroxaban. She is known to have underlying heart failure but no known history of coronary artery disease. She was evaluated in the emergency room and was found to have evidence of fluid overload. There was evidence of early heart failure and congestion on chest x- ray. D-dimer was elevated and patient underwent a VQ scan that is not reported as of yet. Patient also was noted to have slightly elevated troponin. She denies any chest pain. She is currently admitted to telemetry floor for further evaluation. Review of Systems Review of system: 14 points review of systems were obtained and were negative except to what were mentioned in the HPI. Past Medical History Past Medical History: Atrial Fibrillation, Coronary Artery Disease (CAD), Cancer , Diabetes Mellitus, Deep Vein Thrombosis (DVT), Eye Disorder, GERD/Reflux, Hypertension, Renal Disease Additional Past Medical History / Comment(s): Macular Degeneration, gallstones, stage 3 kidney failure, hx Uterine & groin CA; WEARS BILAT THIGH HIGH HOSE, uses cane or walker, patient states she has "2 blood clots in right groin since 2003" History of Any Multi-Drug Resistant Organisms: ESBL, VRE Date of last positivie culture/infection: 01/13/16 MDRO Source:: urine, E.coli, VRE 09/29/13 Past Surgical History: Appendectomy, Bowel Resection, Hysterectomy, Joint Replacement Additional Past Surgical History / Comment(s): gastrointestinal surgery for bowel obstruction. left hip replacement, rt breast biopsy, darcy filter rt leg, Past Anesthesia/Blood Transfusion Reactions: No Reported Reaction Past Psychological History: No Psychological Hx Reported Smoking Status: Former smoker Past Alcohol Use History: None Reported Additional Past Alcohol Use History / Comment(s): smoked 1 pkg from 1961 to 1971 Past Drug Use History: None Reported - Past Family History Mother Family Medical History: No Reported History Medications and Allergies Home Medications Medication Instructions Recorded Confirmed Type Allopurinol [Zyloprim] 200 mg PO DAILY 01/22/14 12/03/17 History Furosemide [Lasix] 20 mg PO Q48H 01/22/14 12/03/17 History Linagliptin [Tradjenta] 5 mg PO DAILY@1600 01/22/14 12/03/17 History Omeprazole [PriLOSEC] 20 mg PO QAM 01/22/14 12/03/17 History Rivaroxaban [Xarelto] 15 mg PO QAM 01/22/14 12/03/17 History Spironolactone [Aldactone] 25 mg PO QAM 01/22/14 12/03/17 History Docusate Sodium [Stool Softener] 100 mg PO BID 02/22/14 12/03/17 History Garlic 1 tab PO BID 02/22/14 12/03/17 History Calcitriol 0.25 mcg PO SUTUTHSA 08/22/14 12/03/17 History Diltiazem HCl [Diltiazem ER] 240 mg PO QAM 01/13/16 12/03/17 History Magnesium Oxide [Mag-Ox] 400 mg PO QAM 01/13/16 12/03/17 History Wheat Dextrin [Benefiber] 1 pack PO BID 01/13/16 12/03/17 History traMADol HCL [Ultram] 50 mg PO Q8HR 01/13/16 12/03/17 History Cholecalciferol [Vitamin D3] 2,000 mg PO DAILY 11/08/16 12/03/17 History Brinzolamide/Brimonidine Tart 1 drop BOTH EYES BID 05/11/17 12/03/17 History [Simbrinza 1%-0.2% Eye Drops] Furosemide [Lasix] 40 mg PO Q48H 10/24/17 12/03/17 History Acetaminophen Tab [Tylenol Tab] 500 - 1,000 mg PO Q6HR PRN 12/03/17 12/03/17 History Ammonium Lactate Lotion 1 applic TOPICAL BID 12/03/17 12/03/17 History [Lac-Hydrin 12% Lotion] Metoprolol Tartrate [Lopressor] 25 mg PO BID 12/03/17 12/03/17 History Vit C/E/Zn/Coppr/Lutein/Zeaxan 1 cap PO BID 12/03/17 12/03/17 History [Preservision Areds 2 Softgel] Allergies Allergy/AdvReac Type Severity Reaction Status Date / Time atorvastatin calcium Allergy Unknown Verified 12/03/17 11:25 [From Lipitor] codeine Allergy Unknown Verified 12/03/17 11:25 [From Tylenol-Codeine #3] hydrocodone Allergy Vomiting Verified 12/03/17 11:25 Physical Exam Vitals: Vital Signs Temp Pulse Pulse Resp BP BP Pulse Ox 12/03/17 03:54 76 18 12/03/17 03:52 96.9 F L 76 18 111/50 98 12/02/17 23:30 97.1 F L 83 18 94/67 97 12/02/17 20:46 96.9 F L 89 18 129/76 97 12/02/17 20:40 89 18 12/02/17 19:09 83 16 111/64 98 12/02/17 18:00 83 16 111/73 96 12/02/17 17:31 78 18 112/83 96 12/02/17 16:27 90 12/02/17 16:18 90 12/02/17 16:01 82 16 134/79 12/02/17 15:35 97.1 F L 94 18 122/80 93 L Intake and Output 12/02/17 12/03/17 12/03/17 22:59 06:59 14:59 Intake Total 600 240 Output Total 300 Balance 600 -60 Intake: Oral 600 240 Output: Urine 300 Other: Voiding Method Toilet Toilet Bedside Commode Bedside Commode # Voids 1 # Bowel Movements 1 Weight 85.2 kg 85.2 kg General: The patient is awake and alert, in no distress Eye: there is normal conjunctiva bilaterally. Neck: The neck is supple, there is no JVD. Cardiovascular: Normal S1-S2, no S3-S4, no murmurs. Respiratory: Lungs clear to auscultation bilaterally Gastrointestinal: Abdomen is soft, nontender Musculoskeletal: There is +1-2 pedal edema. Neurological:. Speech is normal. Skin: Skin is warm and dry Results CBC & Chem 7: 12/03/17 04:19 12/03/17 04:19 Labs: Abnormal Lab Results - Last 24 Hours (Table) 12/02/17 12/02/17 12/02/17 Range/Units 15:57 15:57 15:57 WBC 14.2 H (3.8-10.6) k/uL RBC 3.68 L (3.80-5.40) m/uL Hgb (11.4-16.0) gm/dL MCV 104.1 H (80.0-100.0) fL MCHC (31.0-37.0) g/dL RDW 15.6 H (11.5-15.5) % Neutrophils # 11.9 H (1.3-7.7) k/uL PT (9.0-12.0) sec INR (<1.2) APTT (22.0-30.0) sec D-Dimer (<0.60) mg/L FEU Potassium 5.2 H (3.5-5.1) mmol/L Carbon Dioxide 21 L (22-30) mmol/L BUN 43 H (7-17) mg/dL Creatinine 2.00 H (0.52-1.04) mg/dL Glucose 166 H (74-99) mg/dL POC Glucose (mg/dL) (75-99) mg/dL Total Creatine Kinase <20 L (30-135) U/L Troponin I 0.038 H* (0.000-0.034) ng/mL 12/02/17 12/02/17 12/03/17 Range/Units 15:57 23:34 04:19 WBC (3.8-10.6) k/uL RBC (3.80-5.40) m/uL Hgb (11.4-16.0) gm/dL MCV (80.0-100.0) fL MCHC (31.0-37.0) g/dL RDW (11.5-15.5) % Neutrophils # (1.3-7.7) k/uL PT 14.2 H (9.0-12.0) sec INR 1.5 H (<1.2) APTT 47.0 H (22.0-30.0) sec D-Dimer 0.94 H (<0.60) mg/L FEU Potassium (3.5-5.1) mmol/L Carbon Dioxide (22-30) mmol/L BUN (7-17) mg/dL Creatinine (0.52-1.04) mg/dL Glucose (74-99) mg/dL POC Glucose (mg/dL) (75-99) mg/dL Total Creatine Kinase (30-135) U/L Troponin I 0.038 H* 0.039 H* (0.000-0.034) ng/mL 12/03/17 12/03/17 12/03/17 Range/Units 04:19 04:19 05:56 WBC (3.8-10.6) k/uL RBC 3.26 L (3.80-5.40) m/uL Hgb 10.5 L (11.4-16.0) gm/dL MCV 105.0 H (80.0-100.0) fL MCHC 30.8 L (31.0-37.0) g/dL RDW 16.1 H (11.5-15.5) % Neutrophils # 8.0 H (1.3-7.7) k/uL PT (9.0-12.0) sec INR (<1.2) APTT (22.0-30.0) sec D-Dimer (<0.60) mg/L FEU Potassium (3.5-5.1) mmol/L Carbon Dioxide (22-30) mmol/L BUN 47 H (7-17) mg/dL Creatinine 2.00 H (0.52-1.04) mg/dL Glucose 125 H (74-99) mg/dL POC Glucose (mg/dL) 116 H (75-99) mg/dL Total Creatine Kinase (30-135) U/L Troponin I (0.000-0.034) ng/mL 12/03/17 Range/Units 11:24 WBC (3.8-10.6) k/uL RBC (3.80-5.40) m/uL Hgb (11.4-16.0) gm/dL MCV (80.0-100.0) fL MCHC (31.0-37.0) g/dL RDW (11.5-15.5) % Neutrophils # (1.3-7.7) k/uL PT (9.0-12.0) sec INR (<1.2) APTT (22.0-30.0) sec D-Dimer (<0.60) mg/L FEU Potassium (3.5-5.1) mmol/L Carbon Dioxide (22-30) mmol/L BUN (7-17) mg/dL Creatinine (0.52-1.04) mg/dL Glucose (74-99) mg/dL POC Glucose (mg/dL) 182 H (75-99) mg/dL Total Creatine Kinase (30-135) U/L Troponin I (0.000-0.034) ng/mL Thrombosis Risk Factor Assmnt - Choose All That Apply Any of the Below Risk Factors Present?: Yes Each Factor Represents 1 point: Obesity (BMI >25) Other Risk Factors: Yes Each Risk Factor Represents 3 Points: Age 75 years or older, History of DVT/PE Other congenital or acquired thrombophilia - If yes, enter type in comment: No Thrombosis Risk Factor Assessment Total Risk Factor Score: 7 Thrombosis Risk Factor Assessment Level: High Risk Assessment and Plan Assessment: 1. Acute congestive heart failure exacerbation, possibly systolic. Would obtain echocardiogram. Continue IV Lasix for now. May consider repeat chest x- ray within the next day or 2. May consider repeat BMP within the next day or 2. 2. Chronic atrial fibrillation on anticoagulation with Rivaroxaban 3. History of right lower extremity DVT status post filter placement several years ago. Also on anticoagulation 4. History of uterine cancer status post complete hysterectomy several years ago 5. Stage IIIB chronic kidney disease with baseline creatinine around 1.8 Today, I reviewed her medication list and lab work results. I had a prolonged discussion with patient and her family about her current condition. We will continue gentle diuresis. Obtain echocardiogram of the heart. Awaiting cardiology evaluation
--- NOTE | 2017-12-03 14:07 | CONS ---
CONSULTATION Mrs. Carrillo is an 82-year-old, history patient who came to the emergency room with a complaint of shortness of breath. The patient has been having difficulty in breathing over the last 3-4 days. The patient's pain and shortness of breath occurs with minimal activities with a history suggestive of orthopnea and PND and patient also developed lower extremity edema. The patient denied any cough, fever or chills. Chest x-ray was suggestive of congestive heart failure. This patient has a history of chronic atrial fibrillation. History of a DVT and history of [place] filter. She has been on anticoagulation at home. The patient lives alone and is physically and functionally independent. There is no definite previous history of myocardial infarction. The patient has a history of chronic atrial fibrillation. PAST MEDICAL HISTORY: Includes history of macular degeneration, stage III chronic disease, uterine cancer and she had a blood clot in the right groin 2004, appendicectomy, bowel resection, hysterectomy, bowel obstruction, left hip replacement and right breast biopsy. HOME MEDICATIONS: Included Lasix, Prilosec, Xarelto, Aldactone 25 mg daily, Lopressor 25 mg b.i.d., Lipitor, and Cardizem. PHYSICAL EXAMINATION: At present reveals an 82-year-old female, who does not appear to be in any acute distress. Patient's heart rate is 85 per minute, blood pressure is 112/71 mmHg. Head and ENT examination is negative. NECK: Supple. Jugular venous pressure is elevated. Both the carotid pulses are felt. There is no bruit. Chest is symmetrical. Heart the PMI is not felt. First and second heart sounds are normal. There is a holosystolic murmur heard at the apex suggestive of mitral insufficiency. Lungs examination reveals bilateral basilar rales. ABDOMEN: Soft. EXTREMITIES: There is a 2+ leg edema. EKG shows evidence of atrial fibrillation with a controlled rate. Chest x-ray suggestive of congestive cardiac failure. Patient's 3 sets of troponins are identical and it is not suggestive of acute coronary syndrome. The patient's proBNP level is 9300. FINAL IMPRESSION: 1. This patient is admitted with acute congestive cardiac failure. At present, patient's ejection fraction is unknown. 2. Patient has a murmur of mitral insufficiency. Echo and Doppler study will be done to assess for mitral regurgitation. 3. Chronic kidney disease. The GFR of 23. 4. Chronic atrial fibrillation with a controlled rate. We will add hydralazine 25 mg b.i.d. and Imdur and continue the rest of the medications. Echo and Doppler study will be done. EL / HARRISONN: [id number] /
--- NOTE | 2017-12-03 14:45 | NM ---
EXAMINATION TYPE: NM pul vent and perfuse DATE OF EXAM: 12/03/2017 COMPARISON: NONE HISTORY: Difficulty breathing. TECHNIQUE: Utilizing inhalation of 64.2 mCi Tc 99m DTPA aerosol and intravenous injection of 4.97 mC i of Tc 99m MAA, ventilation and perfusion images are acquired post injection in multiple projections . FINDINGS: There are patchy, matched defects bilaterally. There are no VQ mismatches. IMPRESSION: THIS EXAMINATION IS LOW PROBABILITY FOR PULMONARY EMBOLUS.
[2017-12-03] MEDS ORDERED: LINAGLIPTIN 5 MG TABLET PO SCH (16:00)
[2017-12-03 17:02] LABS: Glucose,Whole Blood 149 mg/dL (75-99)
[2017-12-03] MEDS: ISOSORBIDE MONONITRATE ER 60 MG TAB.ER.24H PO SCH (18:59)
[2017-12-03 20:43] LABS: Glucose,Whole Blood 182 mg/dL (75-99)
[2017-12-03] MEDS: hydrALAZINE HCL 25 MG TAB PO SCH (21:41)
--- NOTE | 2017-12-03 22:49 | P.CNPUL ---
History of Present Illness Consult date: 12/03/17 Reason for consult: dyspnea Chief complaint: Increased shortness of breath and lower extremity swelling for over a week History of present illness: Ms. Carrillo is a pleasant 82-year-old female who is been noted by family member to have increasing shortness of breath also has intermittent chest pain patient bilateral lower extremity were more swelling which were asymmetric patient does have a history of chronic swelling of the right lower extremity related chronic DVT she has been on the Xaralto, since arrival patient has been diuresed with furosemide has been responding well with improvement in shortness of breath and decreased swelling Review of Systems All systems: negative Past Medical History Past Medical History: Atrial Fibrillation, Coronary Artery Disease (CAD), Cancer , Diabetes Mellitus, Deep Vein Thrombosis (DVT), Eye Disorder, GERD/Reflux, Hypertension, Renal Disease Additional Past Medical History / Comment(s): Macular Degeneration, gallstones, stage 3 kidney failure, hx Uterine & groin CA; WEARS BILAT THIGH HIGH HOSE, uses cane or walker, patient states she has "2 blood clots in right groin since 2003" History of Any Multi-Drug Resistant Organisms: ESBL, VRE Date of last positivie culture/infection: 01/13/16 MDRO Source:: urine, E.coli, VRE 09/29/13 Past Surgical History: Appendectomy, Bowel Resection, Hysterectomy, Joint Replacement Additional Past Surgical History / Comment(s): gastrointestinal surgery for bowel obstruction. left hip replacement, rt breast biopsy, darcy filter rt leg, Past Anesthesia/Blood Transfusion Reactions: No Reported Reaction Past Psychological History: No Psychological Hx Reported Smoking Status: Former smoker Past Alcohol Use History: None Reported Additional Past Alcohol Use History / Comment(s): smoked 1 pkg from 1961 to 1971 Past Drug Use History: None Reported - Past Family History Mother Family Medical History: No Reported History Medications and Allergies Home Medications Medication Instructions Recorded Confirmed Type Allopurinol [Zyloprim] 200 mg PO DAILY 01/22/14 12/03/17 History Furosemide [Lasix] 20 mg PO Q48H 01/22/14 12/03/17 History Linagliptin [Tradjenta] 5 mg PO DAILY@1600 01/22/14 12/03/17 History Omeprazole [PriLOSEC] 20 mg PO QAM 01/22/14 12/03/17 History Rivaroxaban [Xarelto] 15 mg PO QAM 01/22/14 12/03/17 History Spironolactone [Aldactone] 25 mg PO QAM 01/22/14 12/03/17 History Docusate Sodium [Stool Softener] 100 mg PO BID 02/22/14 12/03/17 History Garlic 1 tab PO BID 02/22/14 12/03/17 History Calcitriol 0.25 mcg PO SUTUTHSA 08/22/14 12/03/17 History Diltiazem HCl [Diltiazem ER] 240 mg PO QAM 01/13/16 12/03/17 History Magnesium Oxide [Mag-Ox] 400 mg PO QAM 01/13/16 12/03/17 History Wheat Dextrin [Benefiber] 1 pack PO BID 01/13/16 12/03/17 History traMADol HCL [Ultram] 50 mg PO Q8HR 01/13/16 12/03/17 History Cholecalciferol [Vitamin D3] 2,000 mg PO DAILY 11/08/16 12/03/17 History Brinzolamide/Brimonidine Tart 1 drop BOTH EYES BID 05/11/17 12/03/17 History [Simbrinza 1%-0.2% Eye Drops] Furosemide [Lasix] 40 mg PO Q48H 10/24/17 12/03/17 History Acetaminophen Tab [Tylenol Tab] 500 - 1,000 mg PO Q6HR PRN 12/03/17 12/03/17 History Ammonium Lactate Lotion 1 applic TOPICAL BID 12/03/17 12/03/17 History [Lac-Hydrin 12% Lotion] Metoprolol Tartrate [Lopressor] 25 mg PO BID 12/03/17 12/03/17 History Vit C/E/Zn/Coppr/Lutein/Zeaxan 1 cap PO BID 12/03/17 12/03/17 History [Preservision Areds 2 Softgel] Allergies Allergy/AdvReac Type Severity Reaction Status Date / Time atorvastatin calcium Allergy Unknown Verified 12/03/17 11:25 [From Lipitor] codeine Allergy Unknown Verified 12/03/17 11:25 [From Tylenol-Codeine #3] hydrocodone Allergy Vomiting Verified 12/03/17 11:25 Physical Exam Vitals: Vital Signs Temp Pulse Resp BP Pulse Ox 12/03/17 15:38 96.8 F L 88 16 102/68 95 12/03/17 12:00 96.7 F L 88 16 112/71 99 12/03/17 08:00 96.9 F L 91 16 100 12/03/17 03:54 76 18 12/03/17 03:52 96.9 F L 76 18 111/50 98 12/02/17 23:30 97.1 F L 83 18 94/67 97 Intake and Output 12/03/17 12/03/17 12/03/17 06:59 14:59 22:59 Intake Total 600 240 Output Total 600 1000 Balance 600 -360 -1000 Intake: Oral 600 240 Output: Urine 600 1000 Other: Voiding Method Toilet Toilet Toilet Bedside Commode # Voids 1 200 # Bowel Movements 1 1 Weight 85.2 kg This is a well-developed well-nourished awake alert oriented 3 female Limitations: no limitations General appearance: alert, in no apparent distress Head exam: Present: atraumatic, normocephalic, normal inspection Eye exam: Present: normal appearance, PERRL, EOMI. Absent: scleral icterus, conjunctival injection, periorbital swelling ENT exam: Present: normal exam, mucous membranes moist Neck exam: Present: normal inspection. Absent: tenderness, meningismus, lymphadenopathy Respiratory exam: Present: decreased breath sounds. Absent: respiratory distress, wheezes, rales, rhonchi, stridor Cardiovascular Exam: Present: irregular rhythm. Absent: systolic murmur, diastolic murmur, rubs, gallop, clicks GI/Abdominal exam: Present: soft, normal bowel sounds. Absent: distended, tenderness, guarding, rebound, rigid Extremities exam: Present: full ROM, normal capillary refill, pedal edema. Absent: tenderness, joint swelling, calf tenderness, asymmetric swelling noted more so on the right side compared to left side Back exam: Present: normal inspection Neurological exam: Present: alert, oriented X3, CN II-XII intact Psychiatric exam: Present: normal affect, normal mood Skin exam: Present: warm, dry, intact, normal color. Absent: rash Results - Laboratory Findings CBC and BMP: 12/03/17 04:19 12/03/17 04:19 PT/INR, D-dimer PT 14.2 sec (9.0-12.0) H 12/02/17 15:57 INR 1.5 (<1.2) H 12/02/17 15:57 D-Dimer 0.94 mg/L FEU (<0.60) H 12/02/17 15:57 Abnormal lab findings: Abnormal Labs 12/02/17 12/02/17 12/02/17 15:57 15:57 15:57 WBC 14.2 H RBC 3.68 L Hgb MCV 104.1 H MCHC RDW 15.6 H Neutrophils # 11.9 H PT INR APTT D-Dimer Potassium 5.2 H Carbon Dioxide 21 L BUN 43 H Creatinine 2.00 H Glucose 166 H POC Glucose (mg/dL) Total Creatine Kinase <20 L Troponin I 0.038 H* 12/02/17 12/02/17 12/03/17 15:57 23:34 04:19 WBC RBC Hgb MCV MCHC RDW Neutrophils # PT 14.2 H INR 1.5 H APTT 47.0 H D-Dimer 0.94 H Potassium Carbon Dioxide BUN Creatinine Glucose POC Glucose (mg/dL) Total Creatine Kinase Troponin I 0.038 H* 0.039 H* 12/03/17 12/03/17 12/03/17 04:19 04:19 05:56 WBC RBC 3.26 L Hgb 10.5 L MCV 105.0 H MCHC 30.8 L RDW 16.1 H Neutrophils # 8.0 H PT INR APTT D-Dimer Potassium Carbon Dioxide BUN 47 H Creatinine 2.00 H Glucose 125 H POC Glucose (mg/dL) 116 H Total Creatine Kinase Troponin I 12/03/17 12/03/17 12/03/17 11:24 16:52 20:41 WBC RBC Hgb MCV MCHC RDW Neutrophils # PT INR APTT D-Dimer Potassium Carbon Dioxide BUN Creatinine Glucose POC Glucose (mg/dL) 182 H 149 H 182 H Total Creatine Kinase Troponin I - Diagnostic Findings Chest x-ray: report reviewed, image reviewed (VQ scan results reviewed very low probably for pulmonary embolism) Assessment and Plan Assessment: Acute exacerbation of CHF likely acute on chronic diastolic heart failure Chronic atrial fibrillation Chronic renal failure stage III History of prior pleural effusion History of DVT on anticoagulation Plan: Continue gentle diuresis Follow up on echocardiogram report and results Bronchodilator as needed Increase activity as follows tolerated but continued to have fall precautions Further recommendations pending plan of care as per clinical response of the patient Time with Patient: Greater than 30
[2017-12-04] MEDS: traMADol 50 MG TAB PO PRN ×4 (04:13→23:28)
[2017-12-04 06:05] LABS: Glucose,Whole Blood 119 mg/dL (75-99)
[2017-12-04 06:19] LABS: Basophils % (A) 0 %; Eosinophils # (A) 0.2 k/uL (0-0.7); Eosinophils % (A) 2 %; HCT 34.5 % (34.0-46.0); Lymphocytes # (A) 1.6 k/uL (1.0-4.8); Lymphocytes % (A) 14 %; MCH 33.3 pg (25.0-35.0); MCHC 31.8 g/dL (31.0-37.0); MCV 104.9 fL (80.0-100.0); Macrocytosis Moderate; Mean Platelet Volume 8.4; Monocytes # (A) 0.5 k/uL (0-1.0); Monocytes % (A) 5 %; Neutrophils # (A) 8.5 k/uL (1.3-7.7); Neutrophils % (A) 77 %; Platelet Count 230 k/uL (150-450); RBC 3.29 m/uL (3.80-5.40)
[2017-12-04] MEDS: FUROSEMIDE 10 MG/ML 4 ML VIAL IV SCH ×2 (06:29→15:29)
[2017-12-04] MEDS: PANTOPRAZOLE 40 MG TABLET PO SCH (06:29)
[2017-12-04 06:41] LABS: Albumin 3.4 g/dL (3.5-5.0); Calcium 9.7 mg/dL (8.4-10.2); Magnesium 2.2 mg/dL (1.6-2.3); Total Bilirubin 0.5 mg/dL (0.2-1.3); Total Protein 6.1 g/dL (6.3-8.2)
[2017-12-04] MEDS: DORZOLAMIDE HCL 2% DROPS 10 ML BTL BOTH EYES SCH ×2 (08:16→19:36)
[2017-12-04] MEDS: DOCUSATE 100 MG CAP PO SCH ×2 (08:16→19:42)
[2017-12-04] MEDS: RIVAROXABAN 15 MG TAB PO SCH (08:17)
[2017-12-04] MEDS: SPIRONOLACTONE 25 MG TAB PO SCH (08:18)
[2017-12-04] MEDS: ALLOPURINOL 100 MG TAB PO SCH (08:18)
[2017-12-04] MEDS: BRIMONIDINE TARTRATE 0.2% DROPS 5 ML BTL BOTH EYES SCH ×2 (08:18→19:36)
[2017-12-04] MEDS: CHOLECALCIFEROL 1,000 UNIT TAB PO SCH (08:18)
[2017-12-04] MEDS: DILTIAZEM CD 240 MG CAP.ER.24H PO SCH (08:18)
[2017-12-04] MEDS: hydrALAZINE HCL 25 MG TAB PO SCH ×3 (08:19→19:36)
[2017-12-04] MEDS: METOPROLOL TARTRATE 25 MG TAB PO SCH ×2 (09:57→19:36)
--- NOTE | 2017-12-04 10:48 | P.PN ---
Subjective Progress Note Date: 12/04/17 This is a 82-year-old female with past medical history noted below presented to the emergency room with shortness of breath. Patient said that her symptoms started few days ago and is being getting progressively worse. Yesterday she was having difficulty even walking around without being short of breath. She also reported worsening lower extremity edema. Patient said that she had chronic edema involving the right lower extremity where she was diagnosed with a chronic DVT years and years ago and she is maintained on anticoagulation. She also had a history of Toyin filter placed several years ago. She is on anticoagulation at home with Rivaroxaban. She is known to have underlying heart failure but no known history of coronary artery disease. She was evaluated in the emergency room and was found to have evidence of fluid overload. There was evidence of early heart failure and congestion on chest x- ray. D-dimer was elevated and patient underwent a VQ scan that is not reported as of yet. Patient also was noted to have slightly elevated troponin. She denies any chest pain. She is currently admitted to telemetry floor for further evaluation. 12/04/2017 Patient is reporting improvement in her shortness of breath. Still having lower extremity edema. Nursing staff is replacing patient's IV to continue IV Lasix. Patient is being followed by cardiology and pulmonary service. Cardiology has added hydralazine and Imdur. On telemetry was reported that her heart rate did get into the 180s. We'll resume patient's home dose metoprolol 25 mg twice a day. Patient denies any chest pain. Denies any nausea or vomiting. Denies any bowel movement changes or urinary symptoms Objective - Vital Signs Vital signs: Vital Signs Temp 95.7 F L 12/04/17 08:00 Pulse 113 H 12/04/17 08:00 Resp 20 12/04/17 08:00 BP 125/64 12/04/17 08:00 Pulse Ox 97 12/04/17 08:00 Intake & Output 12/03/17 12/04/17 12/04/17 18:59 06:59 18:59 Intake Total 240 240 Output Total 1400 1200 300 Balance -1160 -1200 -60 Weight 82 kg Intake: Oral 240 240 Output: Urine 1400 1200 300 Other: Voiding Method Toilet Toilet # Voids 200 # Bowel Movements 1 1 - Exam Head normocephalic Neck supple Lungs clear to auscultation bilaterally no wheezing or crackles Heart regular rate and rhythm S1-S2, no rub or gallop Abdomen is soft nontender nondistended positive bowel sounds no hepatosplenomegaly Extremities +1 to +2 pitting edema bilateral lower extremities. Right greater than left Neuro alert and orientated to 3 - Labs CBC & Chem 7: 12/04/17 06:08 12/04/17 06:08 Labs: Abnormal Lab Results - Last 24 Hours (Table) 12/03/17 12/03/17 12/03/17 Range/Units 11:24 16:52 20:41 WBC (3.8-10.6) k/uL RBC (3.80-5.40) m/uL Hgb (11.4-16.0) gm/dL MCV (80.0-100.0) fL RDW (11.5-15.5) % Neutrophils # (1.3-7.7) k/uL BUN (7-17) mg/dL Creatinine (0.52-1.04) mg/dL Glucose (74-99) mg/dL POC Glucose (mg/dL) 182 H 149 H 182 H (75-99) mg/dL Total Protein (6.3-8.2) g/dL Albumin (3.5-5.0) g/dL 12/04/17 12/04/17 12/04/17 Range/Units 06:03 06:08 06:08 WBC 11.0 H (3.8-10.6) k/uL RBC 3.29 L (3.80-5.40) m/uL Hgb 11.0 L (11.4-16.0) gm/dL MCV 104.9 H (80.0-100.0) fL RDW 16.0 H (11.5-15.5) % Neutrophils # 8.5 H (1.3-7.7) k/uL BUN 47 H (7-17) mg/dL Creatinine 2.00 H (0.52-1.04) mg/dL Glucose 126 H (74-99) mg/dL POC Glucose (mg/dL) 119 H (75-99) mg/dL Total Protein 6.1 L (6.3-8.2) g/dL Albumin 3.4 L (3.5-5.0) g/dL Assessment and Plan Assessment: 1. Acute congestive heart failure exacerbation, possibly systolic. Echo results pending. Continue IV Lasix for now. 2. Chronic atrial fibrillation on anticoagulation with Rivaroxaban. Resume patient's metoprolol 3. History of right lower extremity DVT status post filter placement several years ago. Also on anticoagulation 4. History of uterine cancer status post complete hysterectomy several years ago 5. Stage IIIB chronic kidney disease with baseline creatinine around 1.8. Creatinine 2. Monitor kidney functions closely while on Lasix 6. Chronic right hip pain: Followed at the pain clinic for injections. We'll continue with Ultram for pain control. I performed an examination of the patient and discussed their management with the physician Vest Finisher. I have reviewed the Physician Vest Finisher's notes and agree with the documented findings and plan of care
--- NOTE | 2017-12-04 11:26 | ECHOF ---
Referral Reason:CHF MEASUREMENTS -------- HEIGHT: 157.5 cm WEIGHT: 81.6 kg BP: 109/66 IVSd: 1.2 cm (0.6 - 1.1) LVIDd: 4.8 cm (3.9 - 5.3) LVPWd: 1.0 cm (0.6 - 1.1) IVSs: 1.5 cm LVIDs: 4.3 cm LVPWs: 1.3 cm LA Diam: 4.7 cm (2.7 - 3.8) LAESV Index (A-L): 64.50 ml/m Ao Diam: 3.2 cm (2.0 - 3.7) AV Cusp: 1.2 cm (1.5 - 2.6) LA Diam: 5.3 cm (2.7 - 3.8) MV EXCURSION: 13.883 mm (> 18.000) MV EF SLOPE: 78 mm/s (70 - 150) EPSS: 1.4 cm AV maxP.44 mmHg AV meanP.82 mmHg RAP: 5.00 mmHg RVSP: 37.51 mmHg FINDINGS -------- Atrial fibrillation. This was a technically adequate study. The left ventricular size is normal. There is mild concentric left ventricular hypertrophy. Overa ll left ventricular systolic function is mild-moderately impaired with, an EF between 40 - 45 %. Po sterior hypokinesis The right ventricle is normal in size. The left atrium is markedly dilated. LA is severely dilated >40 ml/m2 The right atrial size is normal. There is mild aortic stenosis present. Peak/mean gradient across the Aortic Valve is 16.44mmHg / 8. 82mmHg. The mitral valve leaflets are mildly thickened. Mild mitral annular calcification present. Modera lg-sd-mlwhhy mitral regurgitation is present. Mild tricuspid regurgitation present. There is mild pulmonary hypertension. The right ventricular systolic pressure, as measured by Doppler, is 37.51mmHg. Trace/mild (physiologic) pulmonic regurgitation. The aortic root size is normal. There is no pericardial effusion. Small Pleural Effusion. CONCLUSIONS -------- 1. The left ventricular size is normal. 2. There is mild concentric left ventricular hypertrophy. 3. Overall left ventricular systolic function is mild-moderately impaired with, an EF between 40 - 45 %. 4. Posterior hypokinesis 5. The right ventricle is normal in size. 6. The left atrium is markedly dilated. 7. LA is severely dilated >40 ml/m2 8. There is mild aortic stenosis present. 9. Peak/mean gradient across the Aortic Valve is 16.44mmHg / 8.82mmHg. 10. The mitral valve leaflets are mildly thickened. 11. Mild mitral annular calcification present. 12. Cjngahxn-kl-clgdnt mitral regurgitation is present. 13. Mild tricuspid regurgitation present. 14. There is mild pulmonary hypertension. 15. The right ventricular systolic pressure, as measured by Doppler, is 37.51mmHg. 16. Trace/mild (physiologic) pulmonic regurgitation. 17. The aortic root size is normal. 18. There is no pericardial effusion. 19. Small Pleural Effusion. TEMPORARY ADMINISTRATIVE ASSISTANT: Tasha Harley RDCS
[2017-12-04 11:53] LABS: Glucose,Whole Blood 140 mg/dL (75-99)
[2017-12-04] MEDS: INSULIN ASPART 100 UNIT/ML 1 ML 10 ML VIAL SQ SCH ×3 (12:42→21:11)
--- NOTE | 2017-12-04 14:52 | P.PN ---
Subjective Progress Note Date: 12/04/17 Principal diagnosis: CHF This is a pleasant 82-year-old female who presented to the emergency room with symptoms of progressively worsening shortness of breath for 3-4 duration, patient was also noticing a significant increase in peripheral edema. For this reason she came to the emergency room for further evaluation. Patient was seen in consultation yesterday by Dr. VC Enamorado. She's been diuresing overall very well on IV Lasix. His weight is down 3 kg from admission. Blood cell count 11 , hemoglobin 11, platelet count 2:30. Sodium 140, potassium 4.0, BUN 47, creatinine 2.0. Blood pressure 104/64 with a heart rate in the 90s. 100% on 2 L. Objective - Vital Signs Vital signs: Vital Signs Temp 97 F L 12/04/17 11:04 Pulse 94 12/04/17 11:04 Resp 20 12/04/17 11:04 BP 103/63 12/04/17 11:04 Pulse Ox 100 12/04/17 11:04 Intake & Output 12/03/17 12/04/17 12/04/17 18:59 06:59 18:59 Intake Total 240 240 Output Total 1400 1200 300 Balance -1160 -1200 -60 Weight 82 kg Intake: Oral 240 240 Output: Urine 1400 1200 300 Other: Voiding Method Toilet Toilet Toilet # Voids 200 # Bowel Movements 1 1 - Exam PHYSICAL EXAMINATION: HEENT: Head is atraumatic, normocephalic. Pupils equal, round. Neck is supple. There is elevated jugular venous pressure. HEART EXAMINATION: S1 and S2 1 holosystolic murmur is heard. CHEST EXAMINATION: His reveal diminished air entry with fine rales to the bases bilaterally ABDOMEN: Soft, nontender. Bowel sounds are heard. No organomegaly noted. EXTREMITIES: 2+ peripheral pulses with 1+ evidence of peripheral edema and no calf tenderness noted. NEUROLOGIC patient is awake, alert and oriented -3. . - Labs CBC & Chem 7: 12/04/17 06:08 12/04/17 06:08 Labs: Abnormal Lab Results - Last 24 Hours (Table) 12/03/17 12/03/17 12/04/17 Range/Units 16:52 20:41 06:03 WBC (3.8-10.6) k/uL RBC (3.80-5.40) m/uL Hgb (11.4-16.0) gm/dL MCV (80.0-100.0) fL RDW (11.5-15.5) % Neutrophils # (1.3-7.7) k/uL BUN (7-17) mg/dL Creatinine (0.52-1.04) mg/dL Glucose (74-99) mg/dL POC Glucose (mg/dL) 149 H 182 H 119 H (75-99) mg/dL Total Protein (6.3-8.2) g/dL Albumin (3.5-5.0) g/dL 12/04/17 12/04/17 12/04/17 Range/Units 06:08 06:08 11:50 WBC 11.0 H (3.8-10.6) k/uL RBC 3.29 L (3.80-5.40) m/uL Hgb 11.0 L (11.4-16.0) gm/dL MCV 104.9 H (80.0-100.0) fL RDW 16.0 H (11.5-15.5) % Neutrophils # 8.5 H (1.3-7.7) k/uL BUN 47 H (7-17) mg/dL Creatinine 2.00 H (0.52-1.04) mg/dL Glucose 126 H (74-99) mg/dL POC Glucose (mg/dL) 140 H (75-99) mg/dL Total Protein 6.1 L (6.3-8.2) g/dL Albumin 3.4 L (3.5-5.0) g/dL Assessment and Plan Plan: Assessment and plan #1 systolic congestive heart failure acute on chronic\ #2 chronic kidney disease #3 chronic persistent atrial fibrillation Plan Echo cardiac gram with Doppler study was performed which revealed an ejection fraction of 40-45%, posterior hypokinesis noted. Severely dilated left atrium with moderate to severe mitral regurgitation noted. We will continue current dose of IV Lasix, check lytes BUN and creatinine as well as daily weights in the morning. DNP note has been reviewed, I agree with a documented findings and plan of care. Patient was seen and examined.
[2017-12-04] MEDS: ISOSORBIDE MONONITRATE ER 60 MG TAB.ER.24H PO SCH (15:29)
[2017-12-04 16:30] LABS: Glucose,Whole Blood 151 mg/dL (75-99)
--- NOTE | 2017-12-04 18:37 | P.PN ---
Subjective Progress Note Date: 12/04/17 Principal diagnosis: Acute exacerbation of CHF related to acute on chronic systolic heart failure, paroxysmal atrial fibrillation, history of pleural effusion, DVT chronic on right lower extremity 12/04/2017, patient seen and evaluated examined during the rounds clinically patient is doing better continued to diurese very well shortness of breath on activity and exertion is still present swelling the lower extremity however has improved labs reviewed medications reviewed care plan discussed with patient and daughter present at bedside at length Ms. Carrillo is a pleasant 82-year-old female who is been noted by family member to have increasing shortness of breath also has intermittent chest pain patient bilateral lower extremity were more swelling which were asymmetric patient does have a history of chronic swelling of the right lower extremity related chronic DVT she has been on the [place]ar[place], since arrival patient has been diuresed with furosemide has been responding well with improvement in shortness of breath and decreased swelling Objective - Vital Signs Vital signs: Vital Signs Temp 96.9 F L 12/04/17 15:25 Pulse 79 12/04/17 15:25 Resp 20 12/04/17 15:25 BP 103/61 12/04/17 15:25 Pulse Ox 98 12/04/17 15:25 Intake & Output 12/03/17 12/04/17 12/04/17 18:59 06:59 18:59 Intake Total 240 480 Output Total 1400 1200 900 Balance -1160 -1200 -420 Weight 82 kg 82 kg Intake: Oral 240 480 Output: Urine 1400 1200 900 Other: Voiding Method Toilet Toilet Toilet # Voids 200 # Bowel Movements 1 1 - Exam This is a well-developed well-nourished awake alert oriented 3 female Limitations: no limitations General appearance: alert, in no apparent distress Head exam: Present: atraumatic, normocephalic, normal inspection Eye exam: Present: normal appearance, PERRL, EOMI. Absent: scleral icterus, conjunctival injection, periorbital swelling ENT exam: Present: normal exam, mucous membranes moist Neck exam: Present: normal inspection. Absent: tenderness, meningismus, lymphadenopathy Respiratory exam: Present: decreased breath sounds. Absent: respiratory distress, wheezes, rales, rhonchi, stridor Cardiovascular Exam: Present: irregular rhythm. Absent: systolic murmur, diastolic murmur, rubs, gallop, clicks GI/Abdominal exam: Present: soft, normal bowel sounds. Absent: distended, tenderness, guarding, rebound, rigid Extremities exam: Present: full ROM, normal capillary refill, pedal edema. Absent: tenderness, joint swelling, calf tenderness, asymmetric swelling noted more so on the right side compared to left side Back exam: Present: normal inspection Neurological exam: Present: alert, oriented X3, CN II-XII intact Psychiatric exam: Present: normal affect, normal mood Skin exam: Present: warm, dry, intact, normal color. Absent: rash - Labs CBC & Chem 7: 12/04/17 06:08 12/04/17 06:08 Labs: Abnormal Lab Results - Last 24 Hours (Table) 12/03/17 12/04/17 12/04/17 Range/Units 20:41 06:03 06:08 WBC 11.0 H (3.8-10.6) k/uL RBC 3.29 L (3.80-5.40) m/uL Hgb 11.0 L (11.4-16.0) gm/dL MCV 104.9 H (80.0-100.0) fL RDW 16.0 H (11.5-15.5) % Neutrophils # 8.5 H (1.3-7.7) k/uL BUN (7-17) mg/dL Creatinine (0.52-1.04) mg/dL Glucose (74-99) mg/dL POC Glucose (mg/dL) 182 H 119 H (75-99) mg/dL Total Protein (6.3-8.2) g/dL Albumin (3.5-5.0) g/dL 12/04/17 12/04/17 12/04/17 Range/Units 06:08 11:50 16:27 WBC (3.8-10.6) k/uL RBC (3.80-5.40) m/uL Hgb (11.4-16.0) gm/dL MCV (80.0-100.0) fL RDW (11.5-15.5) % Neutrophils # (1.3-7.7) k/uL BUN 47 H (7-17) mg/dL Creatinine 2.00 H (0.52-1.04) mg/dL Glucose 126 H (74-99) mg/dL POC Glucose (mg/dL) 140 H 151 H (75-99) mg/dL Total Protein 6.1 L (6.3-8.2) g/dL Albumin 3.4 L (3.5-5.0) g/dL Assessment and Plan Assessment: Acute exacerbation of CHF likely acute on chronic diastolic heart failure Chronic atrial fibrillation Chronic renal failure stage III History of prior pleural effusion History of DVT on anticoagulation Plan: Continue gentle diuresis Follow up on echocardiogram report and results Bronchodilator as needed Increase activity as follows tolerated but continued to have fall precautions Further recommendations pending plan of care as per clinical response of the patient Time with Patient: Greater than 30
[2017-12-04] MEDS: VIT A,C & E-LUTEIN-MINERALS 1 EACH TAB PO SCH (19:36)
[2017-12-04 20:24] LABS: Hemoglobin A1C 7.4 % (4.0-6.0)
[2017-12-04 20:58] LABS: Glucose,Whole Blood 178 mg/dL (75-99)
[2017-12-05] MEDS: traMADol 50 MG TAB PO PRN ×3 (05:20→18:35)
[2017-12-05 06:03] LABS: Glucose,Whole Blood 126 mg/dL (75-99)
[2017-12-05] MEDS: INSULIN ASPART 100 UNIT/ML 1 ML 10 ML VIAL SQ SCH ×4 (06:10→21:41)
[2017-12-05] MEDS: FUROSEMIDE 10 MG/ML 4 ML VIAL IV SCH ×2 (06:33→18:35)
[2017-12-05] MEDS: PANTOPRAZOLE 40 MG TABLET PO SCH (06:33)
[2017-12-05 06:58] LABS: Anisocytosis Slight; Basophils % (A) 0 %; Eosinophils # (A) 0.2 k/uL (0-0.7); Eosinophils % (A) 2 %; HCT 33.4 % (34.0-46.0); HGB 10.6 gm/dL (11.4-16.0); Lymphocytes # (A) 1.2 k/uL (1.0-4.8); Lymphocytes % (A) 14 %; MCH 33.4 pg (25.0-35.0); MCHC 31.9 g/dL (31.0-37.0); MCV 104.7 fL (80.0-100.0); Macrocytosis Moderate; Monocytes # (A) 0.4 k/uL (0-1.0); Monocytes % (A) 5 %; Neutrophils # (A) 6.8 k/uL (1.3-7.7); Neutrophils % (A) 77 %; Platelet Count 204 k/uL (150-450); RBC 3.19 m/uL (3.80-5.40); RDW 16.2 % (11.5-15.5); WBC 8.8 k/uL (3.8-10.6)
[2017-12-05 07:11] LABS: Albumin 3.1 g/dL (3.5-5.0); Calcium 9.2 mg/dL (8.4-10.2); Potassium 4.1 mmol/L (3.5-5.1); Total Bilirubin 0.5 mg/dL (0.2-1.3); Total Protein 5.7 g/dL (6.3-8.2)
[2017-12-05] MEDS: METOPROLOL TARTRATE 25 MG TAB PO SCH ×2 (09:39→19:41)
[2017-12-05] MEDS: ALLOPURINOL 100 MG TAB PO SCH (09:39)
[2017-12-05] MEDS: SPIRONOLACTONE 25 MG TAB PO SCH (09:39)
[2017-12-05] MEDS: hydrALAZINE HCL 25 MG TAB PO SCH ×2 (09:39→19:40)
[2017-12-05] MEDS: VIT A,C & E-LUTEIN-MINERALS 1 EACH TAB PO SCH ×2 (09:39→19:41)
[2017-12-05] MEDS: DOCUSATE 100 MG CAP PO SCH ×2 (09:39→19:40)
[2017-12-05] MEDS: CHOLECALCIFEROL 1,000 UNIT TAB PO SCH (09:39)
[2017-12-05] MEDS: DORZOLAMIDE HCL 2% DROPS 10 ML BTL BOTH EYES SCH ×2 (09:40→19:40)
[2017-12-05] MEDS: BRIMONIDINE TARTRATE 0.2% DROPS 5 ML BTL BOTH EYES SCH ×2 (09:40→19:40)
[2017-12-05] MEDS: RIVAROXABAN 15 MG TAB PO SCH (09:40)
--- NOTE | 2017-12-05 10:41 | P.PN ---
Subjective Progress Note Date: 12/05/17 This is a 82-year-old female with past medical history noted below presented to the emergency room with shortness of breath. Patient said that her symptoms started few days ago and is being getting progressively worse. Yesterday she was having difficulty even walking around without being short of breath. She also reported worsening lower extremity edema. Patient said that she had chronic edema involving the right lower extremity where she was diagnosed with a chronic DVT years and years ago and she is maintained on anticoagulation. She also had a history of Toyin filter placed several years ago. She is on anticoagulation at home with Rivaroxaban. She is known to have underlying heart failure but no known history of coronary artery disease. She was evaluated in the emergency room and was found to have evidence of fluid overload. There was evidence of early heart failure and congestion on chest x- ray. D-dimer was elevated and patient underwent a VQ scan that is not reported as of yet. Patient also was noted to have slightly elevated troponin. She denies any chest pain. She is currently admitted to telemetry floor for further evaluation. 12/04/2017 Patient is reporting improvement in her shortness of breath. Still having lower extremity edema. Nursing staff is replacing patient's IV to continue IV Lasix. Patient is being followed by cardiology and pulmonary service. Cardiology has added hydralazine and Imdur. On telemetry was reported that her heart rate did get into the 180s. We'll resume patient's home dose metoprolol 25 mg twice a day. Patient denies any chest pain. Denies any nausea or vomiting. Denies any bowel movement changes or urinary symptoms 12/05/2017 patient still having significant lower extremity edema. She remains on IV Lasix. Her weight is staying about the same. Echo shows an EF of 40-45% with moderate to severe mitral regurgitation. Patient reports improvement in her shortness of breath. She denies any chest pain. Denies any nausea vomiting. Reports having bowel movements. Denies any difficulty urinating. Hemoglobin is dropped to 10.6 no evidence of blood in the stools. She does have iron deficiency anemia and receives IV injections a couple times a year. Objective - Vital Signs Vital signs: Vital Signs Temp 96.8 F L 12/05/17 09:20 Pulse 85 12/05/17 09:20 Resp 20 12/05/17 09:20 BP 130/76 12/05/17 09:20 Pulse Ox 98 12/05/17 09:20 Intake & Output 12/04/17 12/05/17 12/05/17 18:59 06:59 18:59 Intake Total 840 300 240 Output Total 900 700 Balance -60 -400 240 Weight 82 kg 82.2 kg Intake: Oral 840 300 240 Output: Urine 900 700 Other: Voiding Method Toilet Toilet # Voids 2 1 # Bowel Movements 1 1 - Exam Head normocephalic Neck supple Lungs clear to auscultation bilaterally no wheezing or crackles Heart regular rate and rhythm S1-S2, no rub or gallop Abdomen is soft nontender nondistended positive bowel sounds no hepatosplenomegaly Extremities +1 to +2 pitting edema bilateral lower extremities. Neuro alert and orientated to 3 - Labs CBC & Chem 7: 12/05/17 06:29 12/05/17 06:29 Labs: Abnormal Lab Results - Last 24 Hours (Table) 12/03/17 12/04/17 12/04/17 Range/Units 04:19 11:50 16:27 RBC (3.80-5.40) m/uL Hgb (11.4-16.0) gm/dL Hct (34.0-46.0) % MCV (80.0-100.0) fL RDW (11.5-15.5) % BUN (7-17) mg/dL Creatinine (0.52-1.04) mg/dL Glucose (74-99) mg/dL POC Glucose (mg/dL) 140 H 151 H (75-99) mg/dL Hemoglobin A1c 7.4 H (4.0-6.0) % Total Protein (6.3-8.2) g/dL Albumin (3.5-5.0) g/dL 12/04/17 12/05/17 12/05/17 Range/Units 20:57 06:02 06:29 RBC 3.19 L (3.80-5.40) m/uL Hgb 10.6 L (11.4-16.0) gm/dL Hct 33.4 L (34.0-46.0) % MCV 104.7 H (80.0-100.0) fL RDW 16.2 H (11.5-15.5) % BUN (7-17) mg/dL Creatinine (0.52-1.04) mg/dL Glucose (74-99) mg/dL POC Glucose (mg/dL) 178 H 126 H (75-99) mg/dL Hemoglobin A1c (4.0-6.0) % Total Protein (6.3-8.2) g/dL Albumin (3.5-5.0) g/dL 12/05/17 Range/Units 06:29 RBC (3.80-5.40) m/uL Hgb (11.4-16.0) gm/dL Hct (34.0-46.0) % MCV (80.0-100.0) fL RDW (11.5-15.5) % BUN 48 H (7-17) mg/dL Creatinine 1.99 H (0.52-1.04) mg/dL Glucose 114 H (74-99) mg/dL POC Glucose (mg/dL) (75-99) mg/dL Hemoglobin A1c (4.0-6.0) % Total Protein 5.7 L (6.3-8.2) g/dL Albumin 3.1 L (3.5-5.0) g/dL Assessment and Plan Assessment: 1. Acute on chronic systolic congestive heart failure exacerbation: Continue IV Lasix. Cardiology following and will await their further recommendations 2. Chronic atrial fibrillation on anticoagulation with Rivaroxaban. Heart rate improved resuming her metoprolol 3. History of right lower extremity DVT status post filter placement several years ago. Also on anticoagulation 4. History of uterine cancer status post complete hysterectomy several years ago 5. Stage IIIB chronic kidney disease with baseline creatinine around 1.8. Creatinine 2. Monitor kidney functions closely while on Lasix 6. Chronic right hip pain: Followed at the pain clinic for injections. We'll continue with Ultram for pain control. 7. History of iron deficiency anemia: Hemoglobin dropped to 10.6. Check iron studies. No evidence of blood in the stools. 8. Diabetes mellitus type 2 continue sliding scale coverage. Tradjenta her home medication is nonformulary. A1c 7.4 Consult physical therapy I performed an examination of the patient and discussed their management with the physician Laundry Housekeeper. I have reviewed the Physician Laundry Housekeeper's notes and agree with the documented findings and plan of care
[2017-12-05 11:23] LABS: Glucose,Whole Blood 138 mg/dL (75-99)
[2017-12-05] MEDS: ISOSORBIDE MONONITRATE ER 60 MG TAB.ER.24H PO SCH (12:40)
[2017-12-05] MEDS: CALCITRIOL 0.25 MCG CAP PO SCH (12:40)
[2017-12-05] MEDS: MAGNESIUM OXIDE 400 MG TAB PO SCH (12:41)
[2017-12-05 16:04] LABS: Iron Saturation 11.46 (12.00-45.00)
[2017-12-05 16:27] LABS: Glucose,Whole Blood 165 mg/dL (75-99)
--- NOTE | 2017-12-05 17:05 | XR ---
EXAMINATION TYPE: XR chest 2V DATE OF EXAM: 12/05/2017 COMPARISON: 12/02/2017 HISTORY: 82-year-old female follow-up CHF TECHNIQUE: Frontal and lateral views FINDINGS: Heart mildly enlarged. Elongation of the thoracic aorta. Diffuse interstitial and vascular prominence . Slight improving aeration in the lower lungs with persistent small effusions. IMPRESSION: 1. CHF with pulmonary vascular congestion/mild interstitial edema, stable to slightly improved. 2. Small effusions persist.
--- NOTE | 2017-12-05 17:07 | P.PN ---
Subjective Progress Note Date: 12/05/17 Principal diagnosis: CHF This is a pleasant 82-year-old female who presented to the emergency room with symptoms of progressively worsening shortness of breath for 3-4 duration, patient was also noticing a significant increase in peripheral edema. For this reason she came to the emergency room for further evaluation. Patient was seen in consultation yesterday by Dr. VC Enamorado. She's been diuresing overall very well on IV Lasix. His weight is down 3 kg from admission. Blood cell count 11 , hemoglobin 11, platelet count 2:30. Sodium 140, potassium 4.0, BUN 47, creatinine 2.0. Blood pressure 104/64 with a heart rate in the 90s. 100% on 2 L. 12/05/2017 Patient was seen and examined this morning, sitting up in the chair at bedside. Continues to be on IV Lasix 40 mg twice a day, blood pressure 118/70, heart rate in the 80s to 90s, 99% on 2 L of oxygen. BUN 48, creatinine 1.9, 1300 out last night. We will repeat a chest x-ray, continue current dose of IV Lasix. Patient continues to have significant edema in both of her extremities, right leg greater than the left because of history of blood clots. Objective - Vital Signs Vital signs: Vital Signs Temp 96.8 F L 12/05/17 16:00 Pulse 88 12/05/17 16:00 Resp 16 12/05/17 16:00 BP 114/77 12/05/17 16:00 Pulse Ox 97 12/05/17 16:00 Intake & Output 12/04/17 12/05/17 12/05/17 18:59 06:59 18:59 Intake Total 840 300 476 Output Total 900 700 Balance -60 -400 476 Weight 82 kg 82.2 kg Intake: Oral 840 300 476 Output: Urine 900 700 Other: Voiding Method Toilet Toilet Toilet # Voids 2 1 1 # Bowel Movements 1 1 - Exam PHYSICAL EXAMINATION: HEENT: Head is atraumatic, normocephalic. Pupils equal, round. Neck is supple. There is elevated jugular venous pressure. HEART EXAMINATION: S1 and S2 1 holosystolic murmur is heard. CHEST EXAMINATION: His reveal diminished air entry with fine rales to the bases bilaterally ABDOMEN: Soft, nontender. Bowel sounds are heard. No organomegaly noted. EXTREMITIES: 2+ peripheral pulses with 1-2+ evidence of peripheral edema and no calf tenderness noted. Right leg more swelling than the left NEUROLOGIC patient is awake, alert and oriented -3. . - Labs CBC & Chem 7: 12/05/17 06:29 12/05/17 06:29 Labs: Abnormal Lab Results - Last 24 Hours (Table) 12/03/17 12/04/17 12/05/17 Range/Units 04:19 20:57 06:02 RBC (3.80-5.40) m/uL Hgb (11.4-16.0) gm/dL Hct (34.0-46.0) % MCV (80.0-100.0) fL RDW (11.5-15.5) % BUN (7-17) mg/dL Creatinine (0.52-1.04) mg/dL Glucose (74-99) mg/dL POC Glucose (mg/dL) 178 H 126 H (75-99) mg/dL Hemoglobin A1c 7.4 H (4.0-6.0) % Total Protein (6.3-8.2) g/dL Albumin (3.5-5.0) g/dL 12/05/17 12/05/17 12/05/17 Range/Units 06:29 06:29 11:22 RBC 3.19 L (3.80-5.40) m/uL Hgb 10.6 L (11.4-16.0) gm/dL Hct 33.4 L (34.0-46.0) % MCV 104.7 H (80.0-100.0) fL RDW 16.2 H (11.5-15.5) % BUN 48 H (7-17) mg/dL Creatinine 1.99 H (0.52-1.04) mg/dL Glucose 114 H (74-99) mg/dL POC Glucose (mg/dL) 138 H (75-99) mg/dL Hemoglobin A1c (4.0-6.0) % Total Protein 5.7 L (6.3-8.2) g/dL Albumin 3.1 L (3.5-5.0) g/dL 12/05/17 Range/Units 16:25 RBC (3.80-5.40) m/uL Hgb (11.4-16.0) gm/dL Hct (34.0-46.0) % MCV (80.0-100.0) fL RDW (11.5-15.5) % BUN (7-17) mg/dL Creatinine (0.52-1.04) mg/dL Glucose (74-99) mg/dL POC Glucose (mg/dL) 165 H (75-99) mg/dL Hemoglobin A1c (4.0-6.0) % Total Protein (6.3-8.2) g/dL Albumin (3.5-5.0) g/dL Assessment and Plan Plan: Assessment and plan #1 systolic congestive heart failure acute on chronic\ #2 chronic kidney disease #3 chronic persistent atrial fibrillation Plan Echo cardiac gram with Doppler study was performed which revealed an ejection fraction of 40-45%, posterior hypokinesis noted. Severely dilated left atrium with moderate to severe mitral regurgitation noted. We will continue current dose of IV Lasix, check lytes BUN and creatinine as well as daily weights in the morning. Repeat chest x-ray. DNP note has been reviewed, I agree with a documented findings and plan of care. Patient was seen and examined.
--- NOTE | 2017-12-05 18:48 | P.PN ---
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 12/05/2017, patient seen eval examined during the rounds her shortness of breath is stable she is diuresing well however lower extremity continued to be significantly erythematous patient is keeping her legs propped up, chest x-ray performed today reviewed and compared with the prior x-ray continued to manifest CHF-like changes with interstitial edema and small bilateral pleural effusion overall interstitial edema has improved significantly compared to prior radiographic studies 12/04/2017, patient seen and evaluated examined during the rounds clinically patient is doing better continued to diurese very well shortness of breath on activity and exertion is still present swelling the lower extremity however has improved labs reviewed medications reviewed care plan discussed with patient and daughter present at bedside at length Ms. Carrillo is a pleasant 82-year-old female who is been noted by family member to have increasing shortness of breath also has intermittent chest pain patient bilateral lower extremity were more swelling which were asymmetric patient does have a history of chronic swelling of the right lower extremity related chronic DVT she has been on the Xaralto, since arrival patient has been diuresed with furosemide has been responding well with improvement in shortness of breath and decreased swelling Objective - Vital Signs Vital signs: Vital Signs Temp 96.8 F L 12/05/17 16:00 Pulse 88 12/05/17 16:00 Resp 16 12/05/17 16:00 BP 114/77 12/05/17 16:00 Pulse Ox 97 12/05/17 16:00 Intake & Output 12/04/17 12/05/17 12/05/17 18:59 06:59 18:59 Intake Total 840 300 712 Output Total 900 700 Balance -60 -400 712 Weight 82 kg 82.2 kg Intake: Oral 840 300 712 Output: Urine 900 700 Other: Voiding Method Toilet Toilet Toilet # Voids 2 1 1 # Bowel Movements 1 1 - Exam This is a well-developed well-nourished awake alert oriented 3 female Limitations: no limitations General appearance: alert, in no apparent distress Head exam: Present: atraumatic, normocephalic, normal inspection Eye exam: Present: normal appearance, PERRL, EOMI. Absent: scleral icterus, conjunctival injection, periorbital swelling ENT exam: Present: normal exam, mucous membranes moist Neck exam: Present: normal inspection. Absent: tenderness, meningismus, lymphadenopathy Respiratory exam: Present: decreased breath sounds. Absent: respiratory distress, wheezes, rales, rhonchi, stridor Cardiovascular Exam: Present: irregular rhythm. Absent: systolic murmur, diastolic murmur, rubs, gallop, clicks GI/Abdominal exam: Present: soft, normal bowel sounds. Absent: distended, tenderness, guarding, rebound, rigid Extremities exam: Present: full ROM, normal capillary refill, pedal edema. Extensive bilateral asymmetric swelling noted more so on the right side compared to left side Back exam: Present: normal inspection Neurological exam: Present: alert, oriented X3, CN II-XII intact Psychiatric exam: Present: normal affect, normal mood Skin exam: Present: warm, dry, intact, normal color. Absent: rash - Labs CBC & Chem 7: 12/05/17 06:29 12/05/17 06:29 Labs: Abnormal Lab Results - Last 24 Hours (Table) 12/03/17 12/04/17 12/05/17 Range/Units 04:19 20:57 06:02 RBC (3.80-5.40) m/uL Hgb (11.4-16.0) gm/dL Hct (34.0-46.0) % MCV (80.0-100.0) fL RDW (11.5-15.5) % BUN (7-17) mg/dL Creatinine (0.52-1.04) mg/dL Glucose (74-99) mg/dL POC Glucose (mg/dL) 178 H 126 H (75-99) mg/dL Hemoglobin A1c 7.4 H (4.0-6.0) % Total Protein (6.3-8.2) g/dL Albumin (3.5-5.0) g/dL 12/05/17 12/05/17 12/05/17 Range/Units 06:29 06:29 11:22 RBC 3.19 L (3.80-5.40) m/uL Hgb 10.6 L (11.4-16.0) gm/dL Hct 33.4 L (34.0-46.0) % MCV 104.7 H (80.0-100.0) fL RDW 16.2 H (11.5-15.5) % BUN 48 H (7-17) mg/dL Creatinine 1.99 H (0.52-1.04) mg/dL Glucose 114 H (74-99) mg/dL POC Glucose (mg/dL) 138 H (75-99) mg/dL Hemoglobin A1c (4.0-6.0) % Total Protein 5.7 L (6.3-8.2) g/dL Albumin 3.1 L (3.5-5.0) g/dL 12/05/17 Range/Units 16:25 RBC (3.80-5.40) m/uL Hgb (11.4-16.0) gm/dL Hct (34.0-46.0) % MCV (80.0-100.0) fL RDW (11.5-15.5) % BUN (7-17) mg/dL Creatinine (0.52-1.04) mg/dL Glucose (74-99) mg/dL POC Glucose (mg/dL) 165 H (75-99) mg/dL Hemoglobin A1c (4.0-6.0) % Total Protein (6.3-8.2) g/dL Albumin (3.5-5.0) g/dL Assessment and Plan Assessment: Acute exacerbation of CHF likely acute on chronic diastolic heart failure Chronic atrial fibrillation Chronic renal failure stage III History of prior pleural effusion History of right lower extremity DVT on anticoagulation Plan: Continue gentle diuresis U echocardiogram report and results Bronchodilator as needed Increase activity as follows tolerated but continued to have fall precautions Further recommendations pending plan of care as per clinical response of the patient Time with Patient: Greater than 30
[2017-12-05] MEDS: DILTIAZEM CD 240 MG CAP.ER.24H PO SCH (19:32)
[2017-12-05] MEDS: AMMONIUM LACTATE 12% LOTION 225 GM BTL TOPICAL SCH (19:53)
[2017-12-05 20:53] LABS: Glucose,Whole Blood 152 mg/dL (75-99)
[2017-12-06] MEDS: traMADol 50 MG TAB PO PRN ×3 (00:02→14:22)
[2017-12-06 05:49] LABS: Glucose,Whole Blood 129 mg/dL (75-99)
[2017-12-06] MEDS: INSULIN ASPART 100 UNIT/ML 1 ML 10 ML VIAL SQ SCH ×4 (06:01→20:47)
[2017-12-06] MEDS: PANTOPRAZOLE 40 MG TABLET PO SCH (06:27)
[2017-12-06] MEDS: FUROSEMIDE 10 MG/ML 4 ML VIAL IV SCH ×2 (06:27→18:33)
[2017-12-06 07:02] LABS: Basophils % (A) 0 %; Eosinophils # (A) 0.1 k/uL (0-0.7); Eosinophils % (A) 1 %; HCT 31.9 % (34.0-46.0); Hypochromasia Slight; Lymphocytes # (A) 1.4 k/uL (1.0-4.8); Lymphocytes % (A) 16 %; MCH 32.3 pg (25.0-35.0); MCHC 31.4 g/dL (31.0-37.0); MCV 102.9 fL (80.0-100.0); Macrocytosis Moderate; Mean Platelet Volume 8.4; Monocytes # (A) 0.5 k/uL (0-1.0); Monocytes % (A) 5 %; Neutrophils # (A) 6.7 k/uL (1.3-7.7); Neutrophils % (A) 76 %; Platelet Count 194 k/uL (150-450); RDW 15.8 % (11.5-15.5); WBC 8.9 k/uL (3.8-10.6)
[2017-12-06 07:27] LABS: Albumin 3.2 g/dL (3.5-5.0); Calcium 9.3 mg/dL (8.4-10.2); Potassium 3.9 mmol/L (3.5-5.1); Total Bilirubin 0.4 mg/dL (0.2-1.3); Total Protein 5.6 g/dL (6.3-8.2)
[2017-12-06] MEDS: RIVAROXABAN 15 MG TAB PO SCH (08:22)
[2017-12-06] MEDS: DOCUSATE 100 MG CAP PO SCH ×2 (08:22→20:42)
[2017-12-06] MEDS: CHOLECALCIFEROL 1,000 UNIT TAB PO SCH (08:22)
[2017-12-06] MEDS: MAGNESIUM OXIDE 400 MG TAB PO SCH (08:22)
[2017-12-06] MEDS: ALLOPURINOL 100 MG TAB PO SCH (08:22)
[2017-12-06] MEDS: DORZOLAMIDE HCL 2% DROPS 10 ML BTL BOTH EYES SCH ×2 (08:23→20:42)
[2017-12-06] MEDS: VIT A,C & E-LUTEIN-MINERALS 1 EACH TAB PO SCH ×2 (08:23→20:42)
[2017-12-06] MEDS: BRIMONIDINE TARTRATE 0.2% DROPS 5 ML BTL BOTH EYES SCH ×2 (08:23→23:19)
[2017-12-06] MEDS: AMMONIUM LACTATE 12% LOTION 225 GM BTL TOPICAL SCH ×2 (10:28→20:42)
[2017-12-06 10:54] VITALS: BMI 32.7
[2017-12-06] MEDS: ISOSORBIDE MONONITRATE ER 60 MG TAB.ER.24H PO SCH (12:01)
[2017-12-06] MEDS: SPIRONOLACTONE 25 MG TAB PO SCH ×2 (12:01→15:48)
[2017-12-06] MEDS: METOPROLOL TARTRATE 25 MG TAB PO SCH ×2 (12:01→20:42)
[2017-12-06] MEDS: hydrALAZINE HCL 25 MG TAB PO SCH ×2 (12:01→20:42)
[2017-12-06 12:14] LABS: Glucose,Whole Blood 174 mg/dL (75-99)
--- NOTE | 2017-12-06 12:45 | P.PN ---
Subjective Progress Note Date: 12/06/17 This is a 82-year-old female with past medical history noted below presented to the emergency room with shortness of breath. Patient said that her symptoms started few days ago and is being getting progressively worse. Yesterday she was having difficulty even walking around without being short of breath. She also reported worsening lower extremity edema. Patient said that she had chronic edema involving the right lower extremity where she was diagnosed with a chronic DVT years and years ago and she is maintained on anticoagulation. She also had a history of Toyin filter placed several years ago. She is on anticoagulation at home with Rivaroxaban. She is known to have underlying heart failure but no known history of coronary artery disease. She was evaluated in the emergency room and was found to have evidence of fluid overload. There was evidence of early heart failure and congestion on chest x- ray. D-dimer was elevated and patient underwent a VQ scan that is not reported as of yet. Patient also was noted to have slightly elevated troponin. She denies any chest pain. She is currently admitted to telemetry floor for further evaluation. 12/04/2017 Patient is reporting improvement in her shortness of breath. Still having lower extremity edema. Nursing staff is replacing patient's IV to continue IV Lasix. Patient is being followed by cardiology and pulmonary service. Cardiology has added hydralazine and Imdur. On telemetry was reported that her heart rate did get into the 180s. We'll resume patient's home dose metoprolol 25 mg twice a day. Patient denies any chest pain. Denies any nausea or vomiting. Denies any bowel movement changes or urinary symptoms 12/05/2017 patient still having significant lower extremity edema. She remains on IV Lasix. Her weight is staying about the same. Echo shows an EF of 40-45% with moderate to severe mitral regurgitation. Patient reports improvement in her shortness of breath. She denies any chest pain. Denies any nausea vomiting. Reports having bowel movements. Denies any difficulty urinating. Hemoglobin is dropped to 10.6 no evidence of blood in the stools. She does have iron deficiency anemia and receives IV injections a couple times a year. On 12/06/2017 patient is alert and oriented complaining of shortness of breath with activity, feels comfortable at rest, denies any chest pain, no nausea or vomiting, no abdominal pain, no diarrhea and no urinary symptoms. Objective - Vital Signs Vital signs: Vital Signs Temp 97.4 F L 12/06/17 08:00 Pulse 63 12/06/17 10:27 Resp 18 12/06/17 08:00 BP 98/64 12/06/17 10:27 Pulse Ox 96 12/06/17 08:00 Intake & Output 12/05/17 12/06/17 12/06/17 18:59 06:59 18:59 Intake Total 712 600 240 Output Total 100 600 Balance 712 500 -360 Weight 81.2 kg 81.2 kg Intake: Oral 712 600 240 Output: Urine 100 600 Other: Voiding Method Toilet Toilet Toilet # Voids 1 1 # Bowel Movements 1 - Exam Head normocephalic Neck supple Lungs clear to auscultation bilaterally no wheezing or crackles Heart regular rate and rhythm S1-S2, no rub or gallop Abdomen is soft nontender nondistended positive bowel sounds no hepatosplenomegaly Extremities +1 to +2 pitting edema bilateral lower extremities. Right more than left. Neuro alert and orientated to 3 - Labs CBC & Chem 7: 12/06/17 06:24 12/06/17 06:24 Labs: Abnormal Lab Results - Last 24 Hours (Table) 12/05/17 12/05/17 12/05/17 Range/Units 06:29 16:25 20:51 RBC (3.80-5.40) m/uL Hgb (11.4-16.0) gm/dL Hct (34.0-46.0) % MCV (80.0-100.0) fL RDW (11.5-15.5) % BUN (7-17) mg/dL Creatinine (0.52-1.04) mg/dL Glucose (74-99) mg/dL POC Glucose (mg/dL) 165 H 152 H (75-99) mg/dL Iron 33 L (50-170) ug/dL Iron Saturation 11.46 L (12.00-45.00) Total Protein (6.3-8.2) g/dL Albumin (3.5-5.0) g/dL 12/06/17 12/06/17 12/06/17 Range/Units 05:48 06:24 06:24 RBC 3.10 L (3.80-5.40) m/uL Hgb 10.0 L (11.4-16.0) gm/dL Hct 31.9 L (34.0-46.0) % MCV 102.9 H (80.0-100.0) fL RDW 15.8 H (11.5-15.5) % BUN 53 H (7-17) mg/dL Creatinine 2.15 H (0.52-1.04) mg/dL Glucose 112 H (74-99) mg/dL POC Glucose (mg/dL) 129 H (75-99) mg/dL Iron (50-170) ug/dL Iron Saturation (12.00-45.00) Total Protein 5.6 L (6.3-8.2) g/dL Albumin 3.2 L (3.5-5.0) g/dL 12/06/17 Range/Units 11:44 RBC (3.80-5.40) m/uL Hgb (11.4-16.0) gm/dL Hct (34.0-46.0) % MCV (80.0-100.0) fL RDW (11.5-15.5) % BUN (7-17) mg/dL Creatinine (0.52-1.04) mg/dL Glucose (74-99) mg/dL POC Glucose (mg/dL) 174 H (75-99) mg/dL Iron (50-170) ug/dL Iron Saturation (12.00-45.00) Total Protein (6.3-8.2) g/dL Albumin (3.5-5.0) g/dL Assessment and Plan Plan: 1. Acute on chronic systolic congestive heart failure exacerbation: Continue IV Lasix. Cardiology following and will await their further recommendations 2. Chronic atrial fibrillation on anticoagulation with Rivaroxaban. Heart rate improved resuming her metoprolol 3. History of right lower extremity DVT status post filter placement several years ago. Also on anticoagulation 4. History of uterine cancer status post complete hysterectomy several years ago 5. Stage IIIB chronic kidney disease with baseline creatinine around 1.8. Creatinine 2. Monitor kidney functions closely while on Lasix 6. Chronic right hip pain: Followed at the pain clinic for injections. We'll continue with Ultram for pain control. 7. History of iron deficiency anemia: Hemoglobin dropped to 10.6. Check iron studies. No evidence of blood in the stools. 8. Diabetes mellitus type 2 continue sliding scale coverage. Adryan her home medication is nonformulary. A1c 7.4 9. Right lower extremity larger than left will check Doppler Consult physical therapy
--- NOTE | 2017-12-06 14:41 | P.PN ---
Subjective Progress Note Date: 12/06/17 Principal diagnosis: CHF This is a pleasant 82-year-old female who presented to the emergency room with symptoms of progressively worsening shortness of breath for 3-4 duration, patient was also noticing a significant increase in peripheral edema. For this reason she came to the emergency room for further evaluation. Patient was seen in consultation yesterday by Dr. VC Enamorado. She's been diuresing overall very well on IV Lasix. His weight is down 3 kg from admission. Blood cell count 11 , hemoglobin 11, platelet count 2:30. Sodium 140, potassium 4.0, BUN 47, creatinine 2.0. Blood pressure 104/64 with a heart rate in the 90s. 100% on 2 L. 12/05/2017 Patient was seen and examined this morning, sitting up in the chair at bedside. Continues to be on IV Lasix 40 mg twice a day, blood pressure 118/70, heart rate in the 80s to 90s, 99% on 2 L of oxygen. BUN 48, creatinine 1.9, 1300 out last night. We will repeat a chest x-ray, continue current dose of IV Lasix. Patient continues to have significant edema in both of her extremities, right leg greater than the left because of history of blood clots. 12/06/2017 Patient was seen and examined this morning, sitting up in the chair at bedside. Repeat chest x-ray revealed CHF with pulmonary vascular congestion, slightly improved from prior. Weight is unchanged from yesterday, patient is diuresing from the IV Lasix. White blood cell count 8.9, hemoglobin 10.0, platelet count 194. Sodium 140, potassium 3.9, BUN 53, creatinine 2.1., 1.9 creatinine yesterday. Objective - Vital Signs Vital signs: Vital Signs Temp 96.8 F L 12/06/17 12:00 Pulse 94 12/06/17 12:00 Resp 18 12/06/17 12:00 BP 101/76 12/06/17 12:00 Pulse Ox 96 12/06/17 12:00 Intake & Output 12/05/17 12/06/17 12/06/17 18:59 06:59 18:59 Intake Total 712 600 480 Output Total 100 900 Balance 712 500 -420 Weight 81.2 kg 81.2 kg Intake: Oral 712 600 480 Output: Urine 100 900 Other: Voiding Method Toilet Toilet Toilet # Voids 1 1 # Bowel Movements 1 1 - Exam PHYSICAL EXAMINATION: HEENT: Head is atraumatic, normocephalic. Pupils equal, round. Neck is supple. There is elevated jugular venous pressure. HEART EXAMINATION: S1 and S2 1 holosystolic murmur is heard. CHEST EXAMINATION: His reveal diminished air entry with fine rales to the bases bilaterally ABDOMEN: Soft, nontender. Bowel sounds are heard. No organomegaly noted. EXTREMITIES: 2+ peripheral pulses with 1-2+ evidence of peripheral edema and no calf tenderness noted. Right leg more swelling than the left NEUROLOGIC patient is awake, alert and oriented -3. . - Labs CBC & Chem 7: 12/06/17 06:24 12/06/17 06:24 Labs: Abnormal Lab Results - Last 24 Hours (Table) 12/05/17 12/05/17 12/05/17 Range/Units 06:29 16:25 20:51 RBC (3.80-5.40) m/uL Hgb (11.4-16.0) gm/dL Hct (34.0-46.0) % MCV (80.0-100.0) fL RDW (11.5-15.5) % BUN (7-17) mg/dL Creatinine (0.52-1.04) mg/dL Glucose (74-99) mg/dL POC Glucose (mg/dL) 165 H 152 H (75-99) mg/dL Iron 33 L (50-170) ug/dL Iron Saturation 11.46 L (12.00-45.00) Total Protein (6.3-8.2) g/dL Albumin (3.5-5.0) g/dL 12/06/17 12/06/17 12/06/17 Range/Units 05:48 06:24 06:24 RBC 3.10 L (3.80-5.40) m/uL Hgb 10.0 L (11.4-16.0) gm/dL Hct 31.9 L (34.0-46.0) % MCV 102.9 H (80.0-100.0) fL RDW 15.8 H (11.5-15.5) % BUN 53 H (7-17) mg/dL Creatinine 2.15 H (0.52-1.04) mg/dL Glucose 112 H (74-99) mg/dL POC Glucose (mg/dL) 129 H (75-99) mg/dL Iron (50-170) ug/dL Iron Saturation (12.00-45.00) Total Protein 5.6 L (6.3-8.2) g/dL Albumin 3.2 L (3.5-5.0) g/dL 12/06/17 Range/Units 11:44 RBC (3.80-5.40) m/uL Hgb (11.4-16.0) gm/dL Hct (34.0-46.0) % MCV (80.0-100.0) fL RDW (11.5-15.5) % BUN (7-17) mg/dL Creatinine (0.52-1.04) mg/dL Glucose (74-99) mg/dL POC Glucose (mg/dL) 174 H (75-99) mg/dL Iron (50-170) ug/dL Iron Saturation (12.00-45.00) Total Protein (6.3-8.2) g/dL Albumin (3.5-5.0) g/dL Assessment and Plan Plan: Assessment and plan #1 systolic congestive heart failure acute on chronic\ #2 chronic kidney disease #3 chronic persistent atrial fibrillation Plan Echo cardiac gram with Doppler study was performed which revealed an ejection fraction of 40-45%, posterior hypokinesis noted. Severely dilated left atrium with moderate to severe mitral regurgitation noted. We will continue current dose of IV Lasix, check lytes BUN and creatinine as well as daily weights in the morning. DNP note has been reviewed, I agree with a documented findings and plan of care. Patient was seen and examined.
[2017-12-06] MEDS ORDERED: METOLAZONE 5 MG TAB PO STA (15:00)
--- NOTE | 2017-12-06 15:38 | US ---
EXAMINATION TYPE: US venous doppler duplex LE RT DATE OF EXAM: 12/06/2017 3:19 PM COMPARISON: 09/25/2013 CLINICAL HISTORY: lower extremity swelling. Right leg pain and swelling, history of right leg DVT, pa tient on blood thinners SIDE PERFORMED: Right TECHNIQUE: The lower extremity deep venous system is examined utilizing real time linear array sonog momo with graded compression, doppler sonography and color-flow sonography. VESSELS IMAGED: External Iliac Vein (EIV) Common Femoral Vein Deep Femoral Vein Greater Saphenous Vein * Femoral Vein Popliteal Vein Small Saphenous Vein * Proximal Calf Veins (* superficial vessels) Difficult and limited study due to leg swelling Right Leg: Visualized portions appear positive for DVT from EIV through proximal calf veins IMPRESSION: 1. Findings are compatible with diffuse DVT. Similar findings are seen in the exam of 09/25/2013. Supe rimposed acute thrombus in the differential diagnosis.
[2017-12-06 17:18] LABS: Glucose,Whole Blood 113 mg/dL (75-99)
[2017-12-06 20:45] LABS: Glucose,Whole Blood 191 mg/dL (75-99)
[2017-12-07 06:05] LABS: Glucose,Whole Blood 127 mg/dL (75-99)
[2017-12-07] MEDS: PANTOPRAZOLE 40 MG TABLET PO SCH (06:21)
[2017-12-07] MEDS: FUROSEMIDE 10 MG/ML 4 ML VIAL IV SCH (06:21)
[2017-12-07] MEDS: INSULIN ASPART 100 UNIT/ML 1 ML 10 ML VIAL SQ SCH ×4 (06:21→20:40)
[2017-12-07 07:42] LABS: Basophils % (A) 0 %; Eosinophils # (A) 0.1 k/uL (0-0.7); Eosinophils % (A) 1 %; HCT 35.8 % (34.0-46.0); HGB 11.7 gm/dL (11.4-16.0); Lymphocytes # (A) 1.5 k/uL (1.0-4.8); Lymphocytes % (A) 16 %; MCH 33.1 pg (25.0-35.0); MCHC 32.7 g/dL (31.0-37.0); MCV 101.1 fL (80.0-100.0); Macrocytosis Slight; Mean Platelet Volume 7.9; Monocytes # (A) 0.4 k/uL (0-1.0); Monocytes % (A) 4 %; Neutrophils # (A) 7.3 k/uL (1.3-7.7); Neutrophils % (A) 77 %; Platelet Count 218 k/uL (150-450); RBC 3.54 m/uL (3.80-5.40); RDW 15.9 % (11.5-15.5); WBC 9.5 k/uL (3.8-10.6)
[2017-12-07 07:46] LABS: Albumin 3.7 g/dL (3.5-5.0); Calcium 9.6 mg/dL (8.4-10.2); Total Bilirubin 0.5 mg/dL (0.2-1.3); Total Protein 6.4 g/dL (6.3-8.2)
[2017-12-07] MEDS: VIT A,C & E-LUTEIN-MINERALS 1 EACH TAB PO SCH ×2 (08:06→20:03)
[2017-12-07] MEDS: CHOLECALCIFEROL 1,000 UNIT TAB PO SCH (08:07)
[2017-12-07] MEDS: BRIMONIDINE TARTRATE 0.2% DROPS 5 ML BTL BOTH EYES SCH ×2 (08:07→20:02)
[2017-12-07] MEDS: CALCITRIOL 0.25 MCG CAP PO SCH (08:07)
[2017-12-07] MEDS: AMMONIUM LACTATE 12% LOTION 225 GM BTL TOPICAL SCH ×2 (08:07→20:02)
[2017-12-07] MEDS: DOCUSATE 100 MG CAP PO SCH ×2 (08:07→20:03)
[2017-12-07] MEDS: ALLOPURINOL 100 MG TAB PO SCH (08:07)
[2017-12-07] MEDS: RIVAROXABAN 15 MG TAB PO SCH (08:08)
[2017-12-07] MEDS: METOPROLOL TARTRATE 25 MG TAB PO SCH ×2 (08:08→20:03)
[2017-12-07] MEDS: SPIRONOLACTONE 25 MG TAB PO SCH (08:08)
[2017-12-07] MEDS: DORZOLAMIDE HCL 2% DROPS 10 ML BTL BOTH EYES SCH ×2 (08:09→20:03)
[2017-12-07] MEDS: MAGNESIUM OXIDE 400 MG TAB PO SCH (08:09)
[2017-12-07] MEDS: ISOSORBIDE MONONITRATE ER 60 MG TAB.ER.24H PO SCH (08:09)
[2017-12-07] MEDS: hydrALAZINE HCL 25 MG TAB PO SCH ×2 (08:09→20:03)
[2017-12-07] MEDS: FERROUS SULFATE 325 MG TAB PO SCH ×2 (09:33→20:03)
[2017-12-07] MEDS: traMADol 50 MG TAB PO PRN ×3 (09:33→22:42)
[2017-12-07 11:23] LABS: Glucose,Whole Blood 160 mg/dL (75-99)
--- NOTE | 2017-12-07 11:36 | P.PN ---
Subjective Progress Note Date: 12/07/17 This is a 82-year-old female with past medical history noted below presented to the emergency room with shortness of breath. Patient said that her symptoms started few days ago and is being getting progressively worse. Yesterday she was having difficulty even walking around without being short of breath. She also reported worsening lower extremity edema. Patient said that she had chronic edema involving the right lower extremity where she was diagnosed with a chronic DVT years and years ago and she is maintained on anticoagulation. She also had a history of Toyin filter placed several years ago. She is on anticoagulation at home with Rivaroxaban. She is known to have underlying heart failure but no known history of coronary artery disease. She was evaluated in the emergency room and was found to have evidence of fluid overload. There was evidence of early heart failure and congestion on chest x- ray. D-dimer was elevated and patient underwent a VQ scan that is not reported as of yet. Patient also was noted to have slightly elevated troponin. She denies any chest pain. She is currently admitted to telemetry floor for further evaluation. 12/04/2017 Patient is reporting improvement in her shortness of breath. Still having lower extremity edema. Nursing staff is replacing patient's IV to continue IV Lasix. Patient is being followed by cardiology and pulmonary service. Cardiology has added hydralazine and Imdur. On telemetry was reported that her heart rate did get into the 180s. We'll resume patient's home dose metoprolol 25 mg twice a day. Patient denies any chest pain. Denies any nausea or vomiting. Denies any bowel movement changes or urinary symptoms 12/05/2017 patient still having significant lower extremity edema. She remains on IV Lasix. Her weight is staying about the same. Echo shows an EF of 40-45% with moderate to severe mitral regurgitation. Patient reports improvement in her shortness of breath. She denies any chest pain. Denies any nausea vomiting. Reports having bowel movements. Denies any difficulty urinating. Hemoglobin is dropped to 10.6 no evidence of blood in the stools. She does have iron deficiency anemia and receives IV injections a couple times a year. 12/07/2017 patient still having some shortness of breath with activity. Lower extremity edema present but showing improvement. She has had decrease in her weight. Patient denies any chest pain. Denies any nausea or vomiting. Reports having bowel movements. Denies any burning with urination. Venous Doppler shows diffuse DVT in the right leg similar on exam in 09/25/2013. Also , superimposed acute thrombus in the differential. Dr. Collado has been consulted for further evaluation patient is also having elevated heart rate into the 160s and 170s with activity. Discussed with nursing staff cardiology has been notified. We'll await their further recommendations. Objective - Vital Signs Vital signs: Vital Signs Temp 96.7 F L 12/07/17 08:00 Pulse 97 12/07/17 08:00 Resp 18 12/07/17 08:00 BP 105/62 12/07/17 08:00 Pulse Ox 95 12/07/17 08:00 Intake & Output 12/06/17 12/07/17 12/07/17 18:59 06:59 18:59 Intake Total 480 250 360 Output Total 1100 1100 900 Balance -620 -850 -540 Weight 81.2 kg 81.1 kg 80.7 kg Intake: IV 10 0.9 10 Oral 480 240 360 Output: Urine 1100 1100 700 Stool 200 Other: Voiding Method Toilet Toilet Toilet # Voids 5 # Bowel Movements 1 - Exam Head normocephalic Neck supple Lungs clear to auscultation bilaterally no wheezing or crackles Heart regular rate and rhythm S1-S2, no rub or gallop Abdomen is soft nontender nondistended positive bowel sounds no hepatosplenomegaly Extremities +1 pitting edema bilateral lower extremities. Right greater than left Neuro alert and orientated to 3 - Labs CBC & Chem 7: 12/07/17 07:00 12/07/17 07:00 Labs: Abnormal Lab Results - Last 24 Hours (Table) 12/06/17 12/06/17 12/06/17 Range/Units 11:44 16:33 20:43 RBC (3.80-5.40) m/uL MCV (80.0-100.0) fL RDW (11.5-15.5) % Chloride (98-107) mmol/L BUN (7-17) mg/dL Creatinine (0.52-1.04) mg/dL Glucose (74-99) mg/dL POC Glucose (mg/dL) 174 H 113 H 191 H (75-99) mg/dL 12/07/17 12/07/17 12/07/17 Range/Units 06:03 07:00 07:00 RBC 3.54 L (3.80-5.40) m/uL MCV 101.1 H (80.0-100.0) fL RDW 15.9 H (11.5-15.5) % Chloride 97 L (98-107) mmol/L BUN 59 H (7-17) mg/dL Creatinine 2.06 H (0.52-1.04) mg/dL Glucose 128 H (74-99) mg/dL POC Glucose (mg/dL) 127 H (75-99) mg/dL 12/07/17 Range/Units 11:20 RBC (3.80-5.40) m/uL MCV (80.0-100.0) fL RDW (11.5-15.5) % Chloride (98-107) mmol/L BUN (7-17) mg/dL Creatinine (0.52-1.04) mg/dL Glucose (74-99) mg/dL POC Glucose (mg/dL) 160 H (75-99) mg/dL Assessment and Plan Assessment: 1. Acute on chronic systolic congestive heart failure exacerbation: Echo shows an EF of 40-45%. Continue IV Lasix. Cardiology following 2. Chronic atrial fibrillation on anticoagulation with Rivaroxaban. Has increased heart rate with activity. We'll await further recommendations per cardiology 3. History of right lower extremity DVT status post filter placement several years ago. Also on anticoagulation. Venous Doppler showing a diffusely DVT similar from 09/25/2013 with superimposed acute thrombus into her differential. Consult Dr. Collado for further evaluation 4. History of uterine cancer status post complete hysterectomy several years ago 5. Stage IIIB chronic kidney disease with baseline creatinine around 1.8. Creatinine 2.06 Monitor kidney functions closely while on Lasix 6. Chronic right hip pain: Followed at the pain clinic for injections. We'll continue with Ultram for pain control. 7. History of iron deficiency anemia: Hemoglobin dropped to 10.6. Iron low at 33 and iron saturation 11.46. Start ferrous sulfate. No evidence of blood in the stools. 8. Diabetes mellitus type 2 continue sliding scale coverage. Tradjenta her home medication is nonformulary. A1c 7.4 Consult physical therapy I performed an examination of the patient and discussed their management with the physician Bed Manager. I have reviewed the Physician Bed Manager's notes and agree with the documented findings and plan of care
--- NOTE | 2017-12-07 14:40 | P.PN ---
Subjective Progress Note Date: 12/07/17 Principal diagnosis: CHF This is a pleasant 82-year-old female who presented to the emergency room with symptoms of progressively worsening shortness of breath for 3-4 duration, patient was also noticing a significant increase in peripheral edema. For this reason she came to the emergency room for further evaluation. Patient was seen in consultation yesterday by Dr. VC Enamorado. She's been diuresing overall very well on IV Lasix. His weight is down 3 kg from admission. Blood cell count 11 , hemoglobin 11, platelet count 2:30. Sodium 140, potassium 4.0, BUN 47, creatinine 2.0. Blood pressure 104/64 with a heart rate in the 90s. 100% on 2 L. 12/05/2017 Patient was seen and examined this morning, sitting up in the chair at bedside. Continues to be on IV Lasix 40 mg twice a day, blood pressure 118/70, heart rate in the 80s to 90s, 99% on 2 L of oxygen. BUN 48, creatinine 1.9, 1300 out last night. We will repeat a chest x-ray, continue current dose of IV Lasix. Patient continues to have significant edema in both of her extremities, right leg greater than the left because of history of blood clots. 12/06/2017 Patient was seen and examined this morning, sitting up in the chair at bedside. Repeat chest x-ray revealed CHF with pulmonary vascular congestion, slightly improved from prior. Weight is unchanged from yesterday, patient is diuresing from the IV Lasix. White blood cell count 8.9, hemoglobin 10.0, platelet count 194. Sodium 140, potassium 3.9, BUN 53, creatinine 2.1., 1.9 creatinine yesterday. 12/07/2017 Patient seen and examined this morning, weight is down 1 kg today, diuresing well. We had given her one dose of Zaroxolyn yesterday which she responded well to. Patient was up to the bathroom earlier this morning, it was noted that her heart rate was up in the 150s, quickly came back down to normal. We will continue to monitor her, continue to increase her activity as tolerated. We will give her one more dose of Zaroxolyn today, discontinue the IV Lasix and start her on oral diuretics. Plan for possible discharge home in 24-48 hours if stable. Objective - Vital Signs Vital signs: Vital Signs Temp 97.1 F L 12/07/17 12:00 Pulse 86 12/07/17 12:00 Resp 18 12/07/17 12:00 BP 102/65 12/07/17 12:00 Pulse Ox 95 12/07/17 12:27 Intake & Output 12/06/17 12/07/17 12/07/17 18:59 06:59 18:59 Intake Total 480 250 360 Output Total 1100 1100 1200 Balance -620 -850 -840 Weight 81.2 kg 81.1 kg 80.7 kg Intake: IV 10 0.9 10 Oral 480 240 360 Output: Urine 1100 1100 1000 Stool 200 Other: Voiding Method Toilet Toilet Toilet # Voids 5 # Bowel Movements 1 - Exam PHYSICAL EXAMINATION: HEENT: Head is atraumatic, normocephalic. Pupils equal, round. Neck is supple. There is elevated jugular venous pressure. HEART EXAMINATION: S1 and S2 1 holosystolic murmur is heard. CHEST EXAMINATION: Lungs reveal improvement in entry bilaterally ABDOMEN: Soft, nontender. Bowel sounds are heard. No organomegaly noted. EXTREMITIES: 2+ peripheral pulses with trace evidence of peripheral edema and no calf tenderness noted. Right leg more swelling than the left NEUROLOGIC patient is awake, alert and oriented -3. . - Labs CBC & Chem 7: 12/07/17 07:00 12/07/17 07:00 Labs: Abnormal Lab Results - Last 24 Hours (Table) 12/06/17 12/06/17 12/07/17 Range/Units 16:33 20:43 06:03 RBC (3.80-5.40) m/uL MCV (80.0-100.0) fL RDW (11.5-15.5) % Chloride (98-107) mmol/L BUN (7-17) mg/dL Creatinine (0.52-1.04) mg/dL Glucose (74-99) mg/dL POC Glucose (mg/dL) 113 H 191 H 127 H (75-99) mg/dL 12/07/17 12/07/17 12/07/17 Range/Units 07:00 07:00 11:20 RBC 3.54 L (3.80-5.40) m/uL MCV 101.1 H (80.0-100.0) fL RDW 15.9 H (11.5-15.5) % Chloride 97 L (98-107) mmol/L BUN 59 H (7-17) mg/dL Creatinine 2.06 H (0.52-1.04) mg/dL Glucose 128 H (74-99) mg/dL POC Glucose (mg/dL) 160 H (75-99) mg/dL Assessment and Plan Plan: Assessment and plan #1 systolic congestive heart failure acute on chronic\ #2 chronic kidney disease #3 chronic persistent atrial fibrillation Plan We will give the patient a one time additional dose of Zaroxolyn. Discontinue IV Lasix and start the patient on oral diuretics today. Plan for possible discharge home in 24-48 hours if stable. DNP note has been reviewed, I agree with a documented findings and plan of care. Patient was seen and examined.
--- NOTE | 2017-12-07 15:06 | P.PN ---
Subjective Progress Note Date: 12/06/17 (Late entry note for services provided on 2017) Principal diagnosis: Acute exacerbation of CHF related to acute on chronic systolic heart failure, paroxysmal atrial fibrillation, history of pleural effusion, DVT chronic on right lower extremity 12/06/2017, patient seen eval examined during the rounds clinically patient is doing better from respiratory standpoint but has significant swelling of the lower extremity she gets short of breath on minimal activity and exertion she still have intermittent episodes of tachycardia as well family is present at the bedside, labs reviewed medications reviewed him a duplex ultrasound of the lower extremity reviewed, on right-sided diffuse deep venous thromboses noted, patient is already on Xarelto 12/05/2017, patient seen eval examined during the rounds her shortness of breath is stable she is diuresing well however lower extremity continued to be significantly erythematous patient is keeping her legs propped up, chest x-ray performed today reviewed and compared with the prior x-ray continued to manifest CHF-like changes with interstitial edema and small bilateral pleural effusion overall interstitial edema has improved significantly compared to prior radiographic studies 12/04/2017, patient seen and evaluated examined during the rounds clinically patient is doing better continued to diurese very well shortness of breath on activity and exertion is still present swelling the lower extremity however has improved labs reviewed medications reviewed care plan discussed with patient and daughter present at bedside at length Ms. Carrillo is a pleasant 82-year-old female who is been noted by family member to have increasing shortness of breath also has intermittent chest pain patient bilateral lower extremity were more swelling which were asymmetric patient does have a history of chronic swelling of the right lower extremity related chronic DVT she has been on the Xaralto, since arrival patient has been diuresed with furosemide has been responding well with improvement in shortness of breath and decreased swelling Objective - Vital Signs Vital signs: Vital Signs Temp 97.1 F L 12/07/17 12:00 Pulse 86 12/07/17 12:00 Resp 18 12/07/17 12:00 BP 102/65 12/07/17 12:00 Pulse Ox 95 12/07/17 12:27 Intake & Output 12/06/17 12/07/17 12/07/17 18:59 06:59 18:59 Intake Total 480 250 360 Output Total 1100 1100 1200 Balance -620 -850 -840 Weight 81.2 kg 81.1 kg 80.7 kg Intake: IV 10 0.9 10 Oral 480 240 360 Output: Urine 1100 1100 1000 Stool 200 Other: Voiding Method Toilet Toilet Toilet # Voids 5 # Bowel Movements 1 - Exam This is a well-developed well-nourished awake alert oriented 3 female Limitations: no limitations General appearance: alert, in no apparent distress Head exam: Present: atraumatic, normocephalic, normal inspection Eye exam: Present: normal appearance, PERRL, EOMI. Absent: scleral icterus, conjunctival injection, periorbital swelling ENT exam: Present: normal exam, mucous membranes moist Neck exam: Present: normal inspection. Absent: tenderness, meningismus, lymphadenopathy Respiratory exam: Present: decreased breath sounds. Absent: respiratory distress, wheezes, rales, rhonchi, stridor Cardiovascular Exam: Present: irregular rhythm. Absent: systolic murmur, diastolic murmur, rubs, gallop, clicks GI/Abdominal exam: Present: soft, normal bowel sounds. Absent: distended, tenderness, guarding, rebound, rigid Extremities exam: Present: full ROM, normal capillary refill, pedal edema. Extensive bilateral asymmetric swelling noted more so on the right side compared to left side Back exam: Present: normal inspection Neurological exam: Present: alert, oriented X3, CN II-XII intact Psychiatric exam: Present: normal affect, normal mood Skin exam: Present: warm, dry, intact, normal color. Absent: rash - Labs CBC & Chem 7: 12/07/17 07:00 12/07/17 07:00 Labs: Abnormal Lab Results - Last 24 Hours (Table) 12/06/17 12/06/17 12/07/17 Range/Units 16:33 20:43 06:03 RBC (3.80-5.40) m/uL MCV (80.0-100.0) fL RDW (11.5-15.5) % Chloride (98-107) mmol/L BUN (7-17) mg/dL Creatinine (0.52-1.04) mg/dL Glucose (74-99) mg/dL POC Glucose (mg/dL) 113 H 191 H 127 H (75-99) mg/dL 12/07/17 12/07/17 12/07/17 Range/Units 07:00 07:00 11:20 RBC 3.54 L (3.80-5.40) m/uL MCV 101.1 H (80.0-100.0) fL RDW 15.9 H (11.5-15.5) % Chloride 97 L (98-107) mmol/L BUN 59 H (7-17) mg/dL Creatinine 2.06 H (0.52-1.04) mg/dL Glucose 128 H (74-99) mg/dL POC Glucose (mg/dL) 160 H (75-99) mg/dL Assessment and Plan Assessment: Acute exacerbation of CHF likely acute on chronic diastolic heart failure Chronic atrial fibrillation Chronic renal failure stage III History of prior pleural effusion Chronic right lower extremity DVT on anticoagulation Plan: Continue gentle diuresis Reviewed echocardiogram report and results Bronchodilator as needed Increase activity as follows tolerated but continued to have fall precautions Further recommendations pending plan of care as per clinical response of the patient Continues Xarelto, adjustment of dose to 20 mg daily will be deferred to cardiovascular services Time with Patient: Greater than 30
--- NOTE | 2017-12-07 15:09 | P.PN ---
Subjective Progress Note Date: 12/07/17 Principal diagnosis: Acute exacerbation of CHF related to acute on chronic systolic heart failure, paroxysmal atrial fibrillation, history of pleural effusion, DVT chronic on right lower extremity 12/07/2017, patient seen eval examined during the rounds care plan discussed with the staff patient had episode of tachycardia while she was walking however spontaneously resolved at rest, patient is aggressively being diuresed, has received a dose of Zaroxolyn yesterday and today and seems to be working well as she is been diuresing well and lost over a kilogram in last 24 hours. From respiratory standpoint address denies any shortness of breath cough or congestion denies any sputum production 12/06/2017, patient seen eval examined during the rounds clinically patient is doing better from respiratory standpoint but has significant swelling of the lower extremity she gets short of breath on minimal activity and exertion she still have intermittent episodes of tachycardia as well family is present at the bedside, labs reviewed medications reviewed him a duplex ultrasound of the lower extremity reviewed, on right-sided diffuse deep venous thromboses noted, patient is already on Xarelto 12/05/2017, patient seen eval examined during the rounds her shortness of breath is stable she is diuresing well however lower extremity continued to be significantly erythematous patient is keeping her legs propped up, chest x-ray performed today reviewed and compared with the prior x-ray continued to manifest CHF-like changes with interstitial edema and small bilateral pleural effusion overall interstitial edema has improved significantly compared to prior radiographic studies 12/04/2017, patient seen and evaluated examined during the rounds clinically patient is doing better continued to diurese very well shortness of breath on activity and exertion is still present swelling the lower extremity however has improved labs reviewed medications reviewed care plan discussed with patient and daughter present at bedside at length Ms. Carrillo is a pleasant 82-year-old female who is been noted by family member to have increasing shortness of breath also has intermittent chest pain patient bilateral lower extremity were more swelling which were asymmetric patient does have a history of chronic swelling of the right lower extremity related chronic DVT she has been on the Xaralto, since arrival patient has been diuresed with furosemide has been responding well with improvement in shortness of breath and decreased swelling Objective - Vital Signs Vital signs: Vital Signs Temp 97.1 F L 12/07/17 12:00 Pulse 86 05/03/18 12:00 Resp 18 12/07/17 12:00 BP 102/65 12/07/17 12:00 Pulse Ox 95 12/07/17 12:27 Intake & Output 12/06/17 12/07/17 12/07/17 18:59 06:59 18:59 Intake Total 480 250 360 Output Total 1100 1100 1200 Balance -620 -850 -840 Weight 81.2 kg 81.1 kg 80.7 kg Intake: IV 10 0.9 10 Oral 480 240 360 Output: Urine 1100 1100 1000 Stool 200 Other: Voiding Method Toilet Toilet Toilet # Voids 5 # Bowel Movements 1 - Exam This is a well-developed well-nourished awake alert oriented 3 female Limitations: no limitations General appearance: alert, in no apparent distress Head exam: Present: atraumatic, normocephalic, normal inspection Eye exam: Present: normal appearance, PERRL, EOMI. Absent: scleral icterus, conjunctival injection, periorbital swelling ENT exam: Present: normal exam, mucous membranes moist Neck exam: Present: normal inspection. Absent: tenderness, meningismus, lymphadenopathy Respiratory exam: Present: decreased breath sounds. Absent: respiratory distress, wheezes, rales, rhonchi, stridor Cardiovascular Exam: Present: irregular rhythm. Absent: systolic murmur, diastolic murmur, rubs, gallop, clicks GI/Abdominal exam: Present: soft, normal bowel sounds. Absent: distended, tenderness, guarding, rebound, rigid Extremities exam: Present: full ROM, normal capillary refill, pedal edema. Extensive bilateral asymmetric swelling noted more so on the right side compared to left side Back exam: Present: normal inspection Neurological exam: Present: alert, oriented X3, CN II-XII intact Psychiatric exam: Present: normal affect, normal mood Skin exam: Present: warm, dry, intact, normal color. Absent: rash - Labs CBC & Chem 7: 12/07/17 07:00 12/07/17 07:00 Labs: Abnormal Lab Results - Last 24 Hours (Table) 12/06/17 12/06/17 12/07/17 Range/Units 16:33 20:43 06:03 RBC (3.80-5.40) m/uL MCV (80.0-100.0) fL RDW (11.5-15.5) % Chloride (98-107) mmol/L BUN (7-17) mg/dL Creatinine (0.52-1.04) mg/dL Glucose (74-99) mg/dL POC Glucose (mg/dL) 113 H 191 H 127 H (75-99) mg/dL 12/07/17 12/07/17 12/07/17 Range/Units 07:00 07:00 11:20 RBC 3.54 L (3.80-5.40) m/uL MCV 101.1 H (80.0-100.0) fL RDW 15.9 H (11.5-15.5) % Chloride 97 L (98-107) mmol/L BUN 59 H (7-17) mg/dL Creatinine 2.06 H (0.52-1.04) mg/dL Glucose 128 H (74-99) mg/dL POC Glucose (mg/dL) 160 H (75-99) mg/dL Assessment and Plan Assessment: Acute exacerbation of CHF likely acute on chronic diastolic heart failure Chronic atrial fibrillation Chronic renal failure stage III History of prior pleural effusion Chronic right lower extremity DVT on anticoagulation with Xarelto Plan: Continue gentle diuresis Reviewed echocardiogram report and results Bronchodilator as needed Increase activity as follows tolerated but continued to have fall precautions Further recommendations pending plan of care as per clinical response of the patient Continues Xarelto, Time with Patient: Greater than 30
[2017-12-07] MEDS: METOLAZONE 5 MG TAB PO SCH (15:52)
[2017-12-07] MEDS: FUROSEMIDE 40 MG TAB PO SCH (15:52)
[2017-12-07 16:59] LABS: Glucose,Whole Blood 225 mg/dL (75-99)
[2017-12-07 20:47] LABS: Glucose,Whole Blood 122 mg/dL (75-99)
[2017-12-08 06:11] LABS: Glucose,Whole Blood 130 mg/dL (75-99)
[2017-12-08] MEDS: PANTOPRAZOLE 40 MG TABLET PO SCH (06:23)
[2017-12-08] MEDS: INSULIN ASPART 100 UNIT/ML 1 ML 10 ML VIAL SQ SCH ×4 (06:24→20:37)
[2017-12-08 07:01] LABS: Anisocytosis Slight; Basophils % (A) 0 %; Eosinophils # (A) 0.2 k/uL (0-0.7); Eosinophils % (A) 2 %; HCT 35.3 % (34.0-46.0); HGB 11.5 gm/dL (11.4-16.0); Lymphocytes # (A) 1.5 k/uL (1.0-4.8); Lymphocytes % (A) 16 %; MCH 33.1 pg (25.0-35.0); MCHC 32.5 g/dL (31.0-37.0); MCV 101.6 fL (80.0-100.0); Macrocytosis Slight; Mean Platelet Volume 8.1; Monocytes # (A) 0.5 k/uL (0-1.0); Monocytes % (A) 5 %; Neutrophils # (A) 6.9 k/uL (1.3-7.7); Neutrophils % (A) 75 %; Platelet Count 226 k/uL (150-450); RBC 3.47 m/uL (3.80-5.40); RDW 16.1 % (11.5-15.5); WBC 9.2 k/uL (3.8-10.6)
[2017-12-08 07:31] LABS: Albumin 3.6 g/dL (3.5-5.0); Calcium 9.5 mg/dL (8.4-10.2); Magnesium 1.9 mg/dL (1.6-2.3); Potassium 3.8 mmol/L (3.5-5.1); Total Bilirubin 0.4 mg/dL (0.2-1.3); Total Protein 6.2 g/dL (6.3-8.2)
--- NOTE | 2017-12-08 07:34 | CONS ---
DATE OF CONSULTATION: 12/08/2017 This is an 82-year-old female. She has been admitted to [facility]. I was consulted for acute chronic DVT involving the right leg. Patient had this history of DVT in the past and she has been on anticoagulation. Patient also has a history of a Toyin filter placed in the past. She also has some history of congestive heart failure by the chest x-ray. Medically, patient has history of atrial fibrillation, coronary artery disease, history of diabetes mellitus, history of hypertension and renal disease. Patient was seen in her room. She is sitting and her vital signs are stable, neck is supple, chest is clear to auscultation. Abdomen is soft. Femoral pulses are present. No calf tenderness noted. Ultrasound reviewed which showed patient has a diffuse DVT as similar finding was noted in study in 09/25/2013, superimposed acute thrombosis in the differential diagnosis. At this point, patient has no vascular compromise. Patient is on anticoagulation. Recommend continue with anticoagulation. At this point, no role of any surgical intervention. Follow with you. MARIBELODL / IJN: [id number] / MTDD
--- NOTE | 2017-12-08 07:51 | P.PN ---
Subjective Progress Note Date: 12/08/17 Principal diagnosis: Acute exacerbation of CHF related to acute on chronic systolic heart failure, paroxysmal atrial fibrillation, history of pleural effusion, DVT chronic on right lower extremity 2017, patient seen eval examined during the rounds clinically she is doing slightly better respiratory status is improved to she however does get short of breath activity and exertion no more episodes tachycardia or tachypnea has been noted overnight she able to get up and move around but does get short of breath , for chronic DVT venous thrombosis in the right lower extremity doctor who sent for vascular surgery is on consult commended to continue current anticoagulation therapy 12/07/2017, patient seen eval examined during the rounds care plan discussed with the staff patient had episode of tachycardia while she was walking however spontaneously resolved at rest, patient is aggressively being diuresed, has received a dose of Zaroxolyn yesterday and today and seems to be working well as she is been diuresing well and lost over a kilogram in last 24 hours. From respiratory standpoint address denies any shortness of breath cough or congestion denies any sputum production 12/06/2017, patient seen eval examined during the rounds clinically patient is doing better from respiratory standpoint but has significant swelling of the lower extremity she gets short of breath on minimal activity and exertion she still have intermittent episodes of tachycardia as well family is present at the bedside, labs reviewed medications reviewed him a duplex ultrasound of the lower extremity reviewed, on right-sided diffuse deep venous thromboses noted, patient is already on Xarelto 12/05/2017, patient seen eval examined during the rounds her shortness of breath is stable she is diuresing well however lower extremity continued to be significantly erythematous patient is keeping her legs propped up, chest x-ray performed today reviewed and compared with the prior x-ray continued to manifest CHF-like changes with interstitial edema and small bilateral pleural effusion overall interstitial edema has improved significantly compared to prior radiographic studies 12/04/2017, patient seen and evaluated examined during the rounds clinically patient is doing better continued to diurese very well shortness of breath on activity and exertion is still present swelling the lower extremity however has improved labs reviewed medications reviewed care plan discussed with patient and daughter present at bedside at length Ms. Carrillo is a pleasant 82-year-old female who is been noted by family member to have increasing shortness of breath also has intermittent chest pain patient bilateral lower extremity were more swelling which were asymmetric patient does have a history of chronic swelling of the right lower extremity related chronic DVT she has been on the Xaralto, since arrival patient has been diuresed with furosemide has been responding well with improvement in shortness of breath and decreased swelling Objective - Vital Signs Vital signs: Vital Signs Temp 97.6 F 12/08/17 04:00 Pulse 76 12/08/17 04:00 Resp 18 12/08/17 04:00 BP 102/57 12/08/17 04:00 Pulse Ox 96 12/08/17 04:00 Intake & Output 12/07/17 12/08/17 12/08/17 18:59 06:59 18:59 Intake Total 360 10 Output Total 1200 800 Balance -840 -790 Weight 80.7 kg 80.1 kg Intake: IV 10 0.9 10 Oral 360 Output: Urine 1000 800 Stool 200 Other: Voiding Method Toilet Toilet - Exam This is a well-developed well-nourished awake alert oriented 3 female Limitations: no limitations General appearance: alert, in no apparent distress Head exam: Present: atraumatic, normocephalic, normal inspection Eye exam: Present: normal appearance, PERRL, EOMI. Absent: scleral icterus, conjunctival injection, periorbital swelling ENT exam: Present: normal exam, mucous membranes moist Neck exam: Present: normal inspection. Absent: tenderness, meningismus, lymphadenopathy Respiratory exam: Present: decreased breath sounds. Absent: respiratory distress, wheezes, rales, rhonchi, stridor Cardiovascular Exam: Present: irregular rhythm. Absent: systolic murmur, diastolic murmur, rubs, gallop, clicks GI/Abdominal exam: Present: soft, normal bowel sounds. Absent: distended, tenderness, guarding, rebound, rigid Extremities exam: Present: full ROM, normal capillary refill, pedal edema. Extensive bilateral asymmetric swelling noted more so on the right side compared to left side Back exam: Present: normal inspection Neurological exam: Present: alert, oriented X3, CN II-XII intact Psychiatric exam: Present: normal affect, normal mood Skin exam: Present: warm, dry, intact, normal color. Absent: rash - Labs CBC & Chem 7: 12/08/17 06:33 12/08/17 06:33 Labs: Abnormal Lab Results - Last 24 Hours (Table) 12/07/17 12/07/17 12/07/17 Range/Units 07:00 11:20 16:29 RBC (3.80-5.40) m/uL MCV (80.0-100.0) fL RDW (11.5-15.5) % Sodium (137-145) mmol/L Chloride 97 L (98-107) mmol/L BUN 59 H (7-17) mg/dL Creatinine 2.06 H (0.52-1.04) mg/dL Glucose 128 H (74-99) mg/dL POC Glucose (mg/dL) 160 H 225 H (75-99) mg/dL Total Protein (6.3-8.2) g/dL 12/07/17 12/08/17 12/08/17 Range/Units 20:40 06:03 06:33 RBC 3.47 L (3.80-5.40) m/uL MCV 101.6 H (80.0-100.0) fL RDW 16.1 H (11.5-15.5) % Sodium (137-145) mmol/L Chloride (98-107) mmol/L BUN (7-17) mg/dL Creatinine (0.52-1.04) mg/dL Glucose (74-99) mg/dL POC Glucose (mg/dL) 122 H 130 H (75-99) mg/dL Total Protein (6.3-8.2) g/dL 12/08/17 Range/Units 06:33 RBC (3.80-5.40) m/uL MCV (80.0-100.0) fL RDW (11.5-15.5) % Sodium 136 L (137-145) mmol/L Chloride 93 L (98-107) mmol/L BUN 61 H (7-17) mg/dL Creatinine 2.09 H (0.52-1.04) mg/dL Glucose 121 H (74-99) mg/dL POC Glucose (mg/dL) (75-99) mg/dL Total Protein 6.2 L (6.3-8.2) g/dL Assessment and Plan Assessment: Acute exacerbation of CHF likely acute on chronic diastolic heart failure Chronic atrial fibrillation Chronic renal failure stage III History of prior pleural effusion Chronic right lower extremity DVT on anticoagulation with Xarelto Plan: Continue gentle diuresis Reviewed echocardiogram report and results Bronchodilator as needed Increase activity as follows tolerated but continued to have fall precautions Further recommendations pending plan of care as per clinical response of the patient Continues Charito, Agree with discharge planning with follow-up in outpatient setting Time with Patient: Greater than 30
[2017-12-08] MEDS: VIT A,C & E-LUTEIN-MINERALS 1 EACH TAB PO SCH ×2 (08:40→20:39)
[2017-12-08] MEDS: FUROSEMIDE 40 MG TAB PO SCH ×2 (08:40→16:24)
[2017-12-08] MEDS: METOPROLOL TARTRATE 25 MG TAB PO SCH ×2 (08:40→20:39)
[2017-12-08] MEDS: traMADol 50 MG TAB PO PRN ×3 (08:40→22:59)
[2017-12-08] MEDS: BRIMONIDINE TARTRATE 0.2% DROPS 5 ML BTL BOTH EYES SCH ×2 (08:41→20:40)
[2017-12-08] MEDS: MAGNESIUM OXIDE 400 MG TAB PO SCH (08:41)
[2017-12-08] MEDS: ALLOPURINOL 100 MG TAB PO SCH (08:41)
[2017-12-08] MEDS: CHOLECALCIFEROL 1,000 UNIT TAB PO SCH (08:41)
[2017-12-08] MEDS: AMMONIUM LACTATE 12% LOTION 225 GM BTL TOPICAL SCH ×2 (08:41→20:40)
[2017-12-08] MEDS: DORZOLAMIDE HCL 2% DROPS 10 ML BTL BOTH EYES SCH ×2 (08:41→20:39)
[2017-12-08] MEDS: ISOSORBIDE MONONITRATE ER 60 MG TAB.ER.24H PO SCH (08:41)
[2017-12-08] MEDS: hydrALAZINE HCL 25 MG TAB PO SCH ×2 (08:42→20:39)
[2017-12-08] MEDS: RIVAROXABAN 15 MG TAB PO SCH (08:42)
[2017-12-08] MEDS: DOCUSATE 100 MG CAP PO SCH ×2 (08:42→20:39)
[2017-12-08] MEDS: SPIRONOLACTONE 25 MG TAB PO SCH (08:42)
[2017-12-08] MEDS: FERROUS SULFATE 325 MG TAB PO SCH ×2 (08:42→20:38)
[2017-12-08] MEDS: METOLAZONE 5 MG TAB PO SCH (08:42)
[2017-12-08 12:08] LABS: Glucose,Whole Blood 161 mg/dL (75-99)
--- NOTE | 2017-12-08 14:15 | P.PN ---
Subjective Progress Note Date: 12/08/17 Principal diagnosis: CHF This is a pleasant 82-year-old female who presented to the emergency room with symptoms of progressively worsening shortness of breath for 3-4 duration, patient was also noticing a significant increase in peripheral edema. For this reason she came to the emergency room for further evaluation. Patient was seen in consultation yesterday by Dr. VC Enamorado. She's been diuresing overall very well on IV Lasix. His weight is down 3 kg from admission. Blood cell count 11 , hemoglobin 11, platelet count 2:30. Sodium 140, potassium 4.0, BUN 47, creatinine 2.0. Blood pressure 104/64 with a heart rate in the 90s. 100% on 2 L. 12/05/2017 Patient was seen and examined this morning, sitting up in the chair at bedside. Continues to be on IV Lasix 40 mg twice a day, blood pressure 118/70, heart rate in the 80s to 90s, 99% on 2 L of oxygen. BUN 48, creatinine 1.9, 1300 out last night. We will repeat a chest x-ray, continue current dose of IV Lasix. Patient continues to have significant edema in both of her extremities, right leg greater than the left because of history of blood clots. 12/06/2017 Patient was seen and examined this morning, sitting up in the chair at bedside. Repeat chest x-ray revealed CHF with pulmonary vascular congestion, slightly improved from prior. Weight is unchanged from yesterday, patient is diuresing from the IV Lasix. White blood cell count 8.9, hemoglobin 10.0, platelet count 194. Sodium 140, potassium 3.9, BUN 53, creatinine 2.1., 1.9 creatinine yesterday. 12/07/2017 Patient seen and examined this morning, weight is down 1 kg today, diuresing well. We had given her one dose of Zaroxolyn yesterday which she responded well to. Patient was up to the bathroom earlier this morning, it was noted that her heart rate was up in the 150s, quickly came back down to normal. We will continue to monitor her, continue to increase her activity as tolerated. We will give her one more dose of Zaroxolyn today, discontinue the IV Lasix and start her on oral diuretics. Plan for possible discharge home in 24-48 hours if stable. 12/08/2017 Patient seen and examined this morning, diuresing well through the night last night. Feels significantly better today. Edema has also significantly improved overall. From cardiology's perspective, patient may be able to be discharged home today. We will make her a follow-up appointment with Dr. May in the office post discharge. Objective - Vital Signs Vital signs: Vital Signs Temp 97.8 F 12/08/17 11:53 Pulse 97 12/08/17 11:53 Resp 18 12/08/17 11:53 BP 95/48 12/08/17 11:53 Pulse Ox 95 12/08/17 11:53 Intake & Output 12/07/17 12/08/17 12/08/17 18:59 06:59 18:59 Intake Total 360 10 720 Output Total 1200 800 900 Balance -840 -790 -180 Weight 80.7 kg 80.1 kg Intake: IV 10 0.9 10 Oral 360 720 Output: Urine 1000 800 900 Stool 200 Other: Voiding Method Toilet Toilet Toilet # Bowel Movements 1 - Exam PHYSICAL EXAMINATION: HEENT: Head is atraumatic, normocephalic. Pupils equal, round. Neck is supple. There is elevated jugular venous pressure. HEART EXAMINATION: S1 and S2 1 holosystolic murmur is heard. CHEST EXAMINATION: Lungs reveal improvement in entry bilaterally ABDOMEN: Soft, nontender. Bowel sounds are heard. No organomegaly noted. EXTREMITIES: 2+ peripheral pulses with trace evidence of peripheral edema and no calf tenderness noted. Right leg more swelling than the left NEUROLOGIC patient is awake, alert and oriented -3. . - Labs CBC & Chem 7: 12/08/17 06:33 12/08/17 06:33 Labs: Abnormal Lab Results - Last 24 Hours (Table) 12/07/17 12/07/17 12/08/17 Range/Units 16:29 20:40 06:03 RBC (3.80-5.40) m/uL MCV (80.0-100.0) fL RDW (11.5-15.5) % Sodium (137-145) mmol/L Chloride (98-107) mmol/L BUN (7-17) mg/dL Creatinine (0.52-1.04) mg/dL Glucose (74-99) mg/dL POC Glucose (mg/dL) 225 H 122 H 130 H (75-99) mg/dL Total Protein (6.3-8.2) g/dL 12/08/17 12/08/17 12/08/17 Range/Units 06:33 06:33 11:50 RBC 3.47 L (3.80-5.40) m/uL MCV 101.6 H (80.0-100.0) fL RDW 16.1 H (11.5-15.5) % Sodium 136 L (137-145) mmol/L Chloride 93 L (98-107) mmol/L BUN 61 H (7-17) mg/dL Creatinine 2.09 H (0.52-1.04) mg/dL Glucose 121 H (74-99) mg/dL POC Glucose (mg/dL) 161 H (75-99) mg/dL Total Protein 6.2 L (6.3-8.2) g/dL Assessment and Plan Plan: Assessment and plan #1 systolic congestive heart failure acute on chronic\ #2 chronic kidney disease #3 chronic persistent atrial fibrillation Plan From cardiology's perspective, patient may be able to be discharged once cleared by the primary. We'll make a follow-up appointment to see Dr. May in the office post discharge. DNP note has been reviewed, I agree with a documented findings and plan of care. Patient was seen and examined.
--- NOTE | 2017-12-08 15:10 | P.DS ---
Providers Date of admission: 12/02/17 19:20 Expected date of discharge: 12/08/17 Attending physician: Zuleima Rodriges Consults: 12/02/17 19:15 Consult Physician Routine Consulting Provider: Rocky Wellington Consult Reason/Comments: CHF, acute bronchospasm Do you want consulting provider notified?: Yes Consult Physician Routine Consulting Provider: Tasha May Consult Reason/Comments: CHF, chronic A. fib Do you want consulting provider notified?: Yes 12/07/17 08:48 Consult Physician Routine Consulting Provider: Sandip Collado Consult Reason/Comments: possible new DVT Do you want consulting provider notified?: Yes Primary care physician: Jak Nathan Hospital Course: Discharge diagnosis 1. Acute on chronic systolic congestive heart failure exacerbation: Echo shows an EF of 40-45%. Continue IV Lasix. Cardiology following 2. Chronic atrial fibrillation on anticoagulation with Rivaroxaban. Has increased heart rate with activity. We'll await further recommendations per cardiology 3. History of right lower extremity DVT status post filter placement several years ago. Also on anticoagulation. Venous Doppler showing a diffusely DVT similar from 09/25/2013 with superimposed acute thrombus into her differential. Consult Dr. Collado for further evaluation 4. History of uterine cancer status post complete hysterectomy several years ago 5. Stage IIIB chronic kidney disease with baseline creatinine around 1.8. Creatinine 2.06 Monitor kidney functions closely while on Lasix 6. Chronic right hip pain: Followed at the pain clinic for injections. We'll continue with Ultram for pain control. 7. History of iron deficiency anemia: Hemoglobin dropped to 10.6. Iron low at 33 and iron saturation 11.46. Start ferrous sulfate. No evidence of blood in the stools. 8. Diabetes mellitus type 2 continue sliding scale coverage. A1c 7.4 Hospital course This is a 82-year-old female with past medical history noted below presented to the emergency room with shortness of breath. Patient said that her symptoms started few days ago and is being getting progressively worse. Yesterday she was having difficulty even walking around without being short of breath. She also reported worsening lower extremity edema. Patient said that she had chronic edema involving the right lower extremity where she was diagnosed with a chronic DVT years and years ago and she is maintained on anticoagulation. She also had a history of Toyin filter placed several years ago. She is on anticoagulation at home with Rivaroxaban. She is known to have underlying heart failure but no known history of coronary artery disease. She was evaluated in the emergency room and was found to have evidence of fluid overload. There was evidence of early heart failure and congestion on chest x- ray. D-dimer was elevated and patient underwent a VQ scan that is not reported as of yet. Patient also was noted to have slightly elevated troponin. She denies any chest pain. She is currently admitted to telemetry floor for further evaluation. 12/04/2017 Patient is reporting improvement in her shortness of breath. Still having lower extremity edema. Nursing staff is replacing patient's IV to continue IV Lasix. Patient is being followed by cardiology and pulmonary service. Cardiology has added hydralazine and Imdur. On telemetry was reported that her heart rate did get into the 180s. We'll resume patient's home dose metoprolol 25 mg twice a day. Patient denies any chest pain. Denies any nausea or vomiting. Denies any bowel movement changes or urinary symptoms 12/05/2017 patient still having significant lower extremity edema. She remains on IV Lasix. Her weight is staying about the same. Echo shows an EF of 40-45% with moderate to severe mitral regurgitation. Patient reports improvement in her shortness of breath. She denies any chest pain. Denies any nausea vomiting. Reports having bowel movements. Denies any difficulty urinating. Hemoglobin is dropped to 10.6 no evidence of blood in the stools. She does have iron deficiency anemia and receives IV injections a couple times a year. 12/07/2017 patient still having some shortness of breath with activity. Lower extremity edema present but showing improvement. She has had decrease in her weight. Patient denies any chest pain. Denies any nausea or vomiting. Reports having bowel movements. Denies any burning with urination. Venous Doppler shows diffuse DVT in the right leg similar on exam in 09/25/2013. Also , superimposed acute thrombus in the differential. Dr. Collado has been consulted for further evaluation patient is also having elevated heart rate into the 160s and 170s with activity. Discussed with nursing staff cardiology has been notified. We'll await their further recommendations. Patient was seen by cardiology, pulmonary service and vascular surgery. Cardiology has adjusted patient's medications. During this admission Imdur 60 mg daily and hydralazine 25 mg twice a day. Patient's Lasix was increased to 40 mg twice a day. Aldactone increased to 50 mg daily and they added Zaroxolyn 5 mg daily. Patient has had improvement in her shortness of breath lower extremity edema and decrease in her overall weight. Vision does have some lower extremity edema present. Some of this is chronic especially on the right leg due to her DVT. Patient seen by vascular surgery in regards to possible new DVT in that right leg they are not recommending any surgical intervention. The recommend patient continues on her Xarelto for anticoagulation. Patient is been cleared by consulting physicians for discharge. Please refer to chart for any further details. I performed an examination of the patient and discussed their management with the physician Public Records Officer. I have reviewed the Physician Public Records Officer's notes and agree with the documented findings and plan of care Patient Condition at Discharge: Stable Plan - Discharge Summary Discharge Rx Participant: No New Discharge Prescriptions: New Ferrous Sulfate [Iron (65 MG Elemental)] 325 mg PO BID #60 tab Furosemide [Lasix] 40 mg PO BID@0900,1600 #60 tab hydrALAZINE HCL [Apresoline] 25 mg PO BID #60 tab Isosorbide Mononitrate ER [Imdur] 60 mg PO DAILY #30 tab.er.24h Metolazone [Zaroxolyn] 5 mg PO DAILY #30 tab Spironolactone [Aldactone] 50 mg PO DAILY #30 tab Continue Linagliptin [Tradjenta] 5 mg PO DAILY@1600 Allopurinol [Zyloprim] 200 mg PO DAILY Rivaroxaban [Xarelto] 15 mg PO QAM Omeprazole [PriLOSEC] 20 mg PO QAM Docusate Sodium [Stool Softener] 100 mg PO BID Garlic 1 tab PO BID Calcitriol 0.25 mcg PO SUTUTHSA Wheat Dextrin [Benefiber] 1 pack PO BID traMADol HCL [Ultram] 50 mg PO Q8HR Magnesium Oxide [Mag-Ox] 400 mg PO QAM Cholecalciferol [Vitamin D3] 2,000 mg PO DAILY Brinzolamide/Brimonidine Tart [Simbrinza 1%-0.2% Eye Drops] 1 drop BOTH EYES BID Ammonium Lactate Lotion [Lac-Hydrin 12% Lotion] 1 applic TOPICAL BID Vit C/E/Zn/Coppr/Lutein/Zeaxan [Preservision Areds 2 Softgel] 1 cap PO BID Acetaminophen Tab [Tylenol] 500 - 1,000 mg PO Q6HR PRN PRN Reason: Pain Metoprolol Tartrate [Lopressor] 25 mg PO BID Discontinued Spironolactone [Aldactone] 25 mg PO QAM Furosemide [Lasix] 20 mg PO Q48H Diltiazem HCl [Diltiazem ER] 240 mg PO QAM Furosemide [Lasix] 40 mg PO Q48H Discharge Medication List Allopurinol [Zyloprim] 200 mg PO DAILY 01/22/14 [History] Linagliptin [Tradjenta] 5 mg PO DAILY@1600 01/22/14 [History] Omeprazole [PriLOSEC] 20 mg PO QAM 01/22/14 [History] Rivaroxaban [Xarelto] 15 mg PO QAM 01/22/14 [History] Docusate Sodium [Stool Softener] 100 mg PO BID 02/22/14 [History] Garlic 1 tab PO BID 02/22/14 [History] Calcitriol 0.25 mcg PO SUTUTHSA 08/22/14 [History] Magnesium Oxide [Mag-Ox] 400 mg PO QAM 01/13/16 [History] Wheat Dextrin [Benefiber] 1 pack PO BID 01/13/16 [History] traMADol HCL [Ultram] 50 mg PO Q8HR 01/13/16 [History] Cholecalciferol [Vitamin D3] 2,000 mg PO DAILY 11/08/16 [History] Brinzolamide/Brimonidine Tart [Simbrinza 1%-0.2% Eye Drops] 1 drop BOTH EYES BID 05/11/17 [History] Acetaminophen Tab [Tylenol] 500 - 1,000 mg PO Q6HR PRN 12/03/17 [History] Ammonium Lactate Lotion [Lac-Hydrin 12% Lotion] 1 applic TOPICAL BID 12/03/17 [ History] Metoprolol Tartrate [Lopressor] 25 mg PO BID 12/03/17 [History] Vit C/E/Zn/Coppr/Lutein/Zeaxan [Preservision Areds 2 Softgel] 1 cap PO BID 12/03 [History] Ferrous Sulfate [Iron (65 MG Elemental)] 325 mg PO BID #60 tab 12/08/17 [Rx] Furosemide [Lasix] 40 mg PO BID@0900,1600 #60 tab 12/08/17 [Rx] Isosorbide Mononitrate ER [Imdur] 60 mg PO DAILY #30 tab.er.24h 12/08/17 [Rx] Metolazone [Zaroxolyn] 5 mg PO DAILY #30 tab 12/08/17 [Rx] Spironolactone [Aldactone] 50 mg PO DAILY #30 tab 12/08/17 [Rx] hydrALAZINE HCL [Apresoline] 25 mg PO BID #60 tab 12/08/17 [Rx] Follow up Appointment(s)/Referral(s): [facility], [NON-STAFF] - Jak Nathan MD [Primary Care Provider] - 1 Week Rocky Wellington MD [STAFF PHYSICIAN] - 1 Week Tasha May MD [STAFF PHYSICIAN] - 1 Week Ambulatory/Diagnostic Orders: Basic Metabolic Panel [LAB.AMB] Time Frame: 3 Days, Location: Determined By Patient Activity/Diet/Wound Care/Special Instructions: Diet: cardiac, diabetic Activity: as tolerated Discharge Disposition: HOME WITH HOME HEALTH SERVICES
[2017-12-08 16:24] LABS: Glucose,Whole Blood 176 mg/dL (75-99)
[2017-12-08 17:12] LABS: Glucose,Whole Blood 167 mg/dL (75-99)
[2017-12-08 20:39] LABS: Glucose,Whole Blood 151 mg/dL (75-99)
[2017-12-09 01:15] VITALS: RESP 18
[2017-12-09] MEDS: traMADol 50 MG TAB PO PRN (06:09)
[2017-12-09 06:28] VITALS: BP 105/71; PULSE 88; TEMP 97.7
[2017-12-09 07:29] LABS: Glucose,Whole Blood 131 mg/dL (75-99)
[2017-12-09] MEDS: hydrALAZINE HCL 25 MG TAB PO SCH (08:01)
[2017-12-09] MEDS: INSULIN ASPART 100 UNIT/ML 1 ML 10 ML VIAL SQ SCH ×2 (08:03→12:29)
[2017-12-09] MEDS: AMMONIUM LACTATE 12% LOTION 225 GM BTL TOPICAL SCH (08:04)
[2017-12-09] MEDS: FERROUS SULFATE 325 MG TAB PO SCH (08:05)
[2017-12-09] MEDS: RIVAROXABAN 15 MG TAB PO SCH (08:05)
[2017-12-09] MEDS: DORZOLAMIDE HCL 2% DROPS 10 ML BTL BOTH EYES SCH (08:05)
[2017-12-09] MEDS: ALLOPURINOL 100 MG TAB PO SCH (08:05)
[2017-12-09] MEDS: METOLAZONE 5 MG TAB PO SCH (08:05)
[2017-12-09] MEDS: BRIMONIDINE TARTRATE 0.2% DROPS 5 ML BTL BOTH EYES SCH (08:05)
[2017-12-09] MEDS: METOPROLOL TARTRATE 25 MG TAB PO SCH (08:05)
[2017-12-09] MEDS: DOCUSATE 100 MG CAP PO SCH (08:05)
[2017-12-09] MEDS: PANTOPRAZOLE 40 MG TABLET PO SCH (08:05)
[2017-12-09] MEDS: ISOSORBIDE MONONITRATE ER 60 MG TAB.ER.24H PO SCH (08:05)
[2017-12-09] MEDS: FUROSEMIDE 40 MG TAB PO SCH (08:05)
[2017-12-09] MEDS: VIT A,C & E-LUTEIN-MINERALS 1 EACH TAB PO SCH (08:06)
[2017-12-09] MEDS: CALCITRIOL 0.25 MCG CAP PO SCH (08:06)
[2017-12-09] MEDS: CHOLECALCIFEROL 1,000 UNIT TAB PO SCH (08:06)
[2017-12-09] MEDS: MAGNESIUM OXIDE 400 MG TAB PO SCH (08:06)
[2017-12-09] MEDS: SPIRONOLACTONE 25 MG TAB PO SCH (08:06)
[2017-12-09 12:13] LABS: Glucose,Whole Blood 145 mg/dL (75-99)
--- NOTE | 2017-12-09 15:00 | PN ---
PROGRESS NOTE DATE OF SERVICE: 12/09/2017 The patient has been hemodynamically stable. She is not complaining of shortness of breath. She is in a chair. She has no electricity at home. PHYSICAL EXAMINATION: Her blood pressure is 105/71, respiratory rate of 18, pulse rate 88, temperature 97.7 degrees Fahrenheit, O2 saturation on room air is 99%. HEENT reveals pupils that equal. Mild prominence of the jugular veins. Chest reveals occasional rhonchi. Cardiovascular system reveals an S1, S2. Abdomen is soft. There is trace pedal edema. IMPRESSION: 1. Congestive heart failure. 2. Chronic atrial fibrillation. 3. Previous pleural effusion. 4. Chronic right lower extremity deep venous thrombosis. Continue to keep her fluid status optimal with diuresis. Continue anticoagulation. Increase her activity level. Agree with discharge planning on her. MMODL / HARRISONN: [id number] /
== END 2017-12-09 15:22 | disposition home health service (06) | DRG 291 ==
LOC: EC 15:30 → 6SEL 19:20 → 4MS4W 12-08 17:09
PROVIDERS: ADMIT Internal Medicine; ATTEND Internal Medicine
DX: I13.0 Hypertensive heart and chronic kidney disease with heart failure and stage 1 through stage 4 chronic kidney disease, or unspecified chronic kidney disease (principal); I50.23 Acute on chronic systolic (congestive) heart failure; E44.1 Mild protein-calorie malnutrition; I82.501 Chronic embolism and thrombosis of unspecified deep veins of right lower extremity; D50.9 Iron deficiency anemia, unspecified; E11.22 Type 2 diabetes mellitus with diabetic chronic kidney disease; G89.29 Other chronic pain; H35.30 Unspecified macular degeneration; I25.10 Atherosclerotic heart disease of native coronary artery without angina pectoris; I34.0 Nonrheumatic mitral (valve) insufficiency; I48.2 Chronic atrial fibrillation; J98.01 Acute bronchospasm; K21.9 Gastro-esophageal reflux disease without esophagitis; N18.3 Chronic kidney disease, stage 3 (moderate); K80.20 Calculus of gallbladder without cholecystitis without obstruction; M25.551 Pain in right hip; R77.8 Other specified abnormalities of plasma proteins; Z79.84 Long term (current) use of oral hypoglycemic drugs; Z79.01 Long term (current) use of anticoagulants; Z79.899 Other long term (current) drug therapy; Z96.642 Presence of left artificial hip joint; Z90.710 Acquired absence of both cervix and uterus; Z90.49 Acquired absence of other specified parts of digestive tract; Z87.891 Personal history of nicotine dependence; Z85.42 Personal history of malignant neoplasm of other parts of uterus; Z68.31 Body mass index [BMI] 31.0-31.9, adult; Z88.6 Allergy status to analgesic agent; Z88.5 Allergy status to narcotic agent; Z88.8 Allergy status to other drugs, medicaments and biological substances
CPT/HCPCS: 36415; 71046; 78582; 80048; 80053; 82150; 82550; 82553; 82728; 83036; 83540; 83550; 83690; 83735; 83880; 84484; 85025; 85379; 85610; 85730; 93005; 93306; 94640; 94760; 96374; 99291

== ENCOUNTER → 2017-12-15 | Outpatient (CLI) | payer MEDICARE, BC ==
[2017-12-15 11:43] LABS: Calcium 9.9 mg/dL (8.4-10.2); Potassium 3.3 mmol/L (3.5-5.1)
== END | disposition home or self-care (01) ==
LOC: LABWHC1 10:40
PROVIDERS: ATTEND Internal Medicine Interventional Cardiology
DX: E87.6 Hypokalemia (principal)
CPT/HCPCS: 36415; 80048

== ENCOUNTER → 2017-12-18 | Outpatient (CLI) | payer MEDICARE, BC ==
[2017-12-18 10:19] LABS: Calcium 9.1 mg/dL (8.4-10.2)
[2017-12-18 10:27] LABS: Potassium 2.7 mmol/L (3.5-5.1)
== END | disposition home or self-care (01) ==
LOC: LABWHC1 09:16
PROVIDERS: ATTEND Internal Medicine Interventional Cardiology
DX: I42.8 Other cardiomyopathies (principal)
CPT/HCPCS: 36415; 80048

== ENCOUNTER → 2017-12-20 | Outpatient (CLI) | payer MEDICARE, BC ==
[2017-12-20 12:48] LABS: Potassium 3.6 mmol/L (3.5-5.1)
== END | disposition home or self-care (01) ==
LOC: LABWHC1 11:43
PROVIDERS: ATTEND Internal Medicine Interventional Cardiology
DX: E87.6 Hypokalemia (principal)
CPT/HCPCS: 36415; 80051; 82565; 84520

== ENCOUNTER → 2017-12-27 | Outpatient (CLI) | payer MEDICARE, BC ==
[2017-12-27 12:20] LABS: Potassium 3.7 mmol/L (3.5-5.1)
== END | disposition home or self-care (01) ==
LOC: LABWHC1 11:39
PROVIDERS: ATTEND Internal Medicine Interventional Cardiology
DX: I10 Essential (primary) hypertension (principal)
CPT/HCPCS: 36415; 80051; 82565; 84520

== ENCOUNTER 2018-01-10 17:02 | Inpatient (IN) | payer MEDICARE, BC ==
[2018-01-10] MEDS ORDERED: ACETAMINOPHEN TAB 500 MG TAB PO PRN (18:24)
--- NOTE | 2018-01-10 18:54 | XR ---
EXAMINATION: XR chest 2V DATE AND TIME: 01/10/2018 6:44 PM ORDERING PROVIDER: Elyse Owen MD CLINICAL INDICATION: chf TECHNIQUE: PA and lateral COMPARISON: None. DESCRIPTION: Mild-moderately enlarged cardiac silhouette appears similar to the prior study. Also similar is the anterior interstitial phase cardiogenic pulmonary edema pattern seen at that time . There are no pulmonary consolidations; the lungs appear clear and well expanded otherwise. Pleural spaces are negative. Bones and soft tissues are unremarkable for acute findings. IMPRESSION: Mild plus interstitial phase cardiac pulmonary edema pattern.
[2018-01-10 18:58] LABS: Anisocytosis Slight; Basophils % (A) 0 %; Eosinophils # (A) 0.1 k/uL (0-0.7); Eosinophils % (A) 1 %; HCT 37.3 % (34.0-46.0); HGB 11.7 gm/dL (11.4-16.0); Hypochromasia Moderate; Lymphocytes # (A) 1.3 k/uL (1.0-4.8); Lymphocytes % (A) 16 %; MCH 33.7 pg (25.0-35.0); MCHC 31.5 g/dL (31.0-37.0); Macrocytosis Marked; Monocytes # (A) 0.5 k/uL (0-1.0); Monocytes % (A) 6 %; Neutrophils # (A) 6.2 k/uL (1.3-7.7); Neutrophils % (A) 75 %; Platelet Count 212 k/uL (150-450); RBC 3.48 m/uL (3.80-5.40); WBC 8.2 k/uL (3.8-10.6)
[2018-01-10 19:00] LABS: Albumin 3.8 g/dL (3.5-5.0); Calcium 9.6 mg/dL (8.4-10.2); Total Bilirubin 0.6 mg/dL (0.2-1.3); Total Protein 6.5 g/dL (6.3-8.2)
[2018-01-10 19:13] LABS: Anisocytosis (M) Present; Polychromasia Present; Target Cells Present
[2018-01-10] MEDS: METOPROLOL TARTRATE 25 MG TAB PO SCH ×2 (19:41→23:30)
[2018-01-10] MEDS: LINAGLIPTIN 5 MG TABLET PO SCH (19:41)
[2018-01-10 20:51] LABS: Glucose,Whole Blood 160 mg/dL (75-99)
[2018-01-10] MEDS ORDERED: BRIMONIDINE TARTRATE 0.2% DROPS 5 ML BTL BOTH EYES SCH (21:00)
[2018-01-10] MEDS ORDERED: NON-FORMULARY DRUG (Garlic [Garlic] 1 TAB) PO SCH (21:00)
[2018-01-10] MEDS ORDERED: DORZOLAMIDE HCL 2% DROPS 10 ML BTL BOTH EYES SCH (21:00)
[2018-01-10] MEDS: hydrALAZINE HCL 25 MG TAB PO SCH (21:39)
[2018-01-10] MEDS: CALCIUM POLYCARBOPHIL 625 MG TAB PO SCH (21:39)
[2018-01-10] MEDS: FERROUS SULFATE 325 MG TAB PO SCH (21:39)
[2018-01-10] MEDS: DOCUSATE 100 MG CAP PO SCH (21:39)
[2018-01-10] MEDS: VIT A,C & E-LUTEIN-MINERALS 1 EACH TAB PO SCH (21:41)
[2018-01-10] MEDS: AMMONIUM LACTATE 12% LOTION 225 GM BTL TOPICAL SCH (22:01)
[2018-01-10] MEDS: traMADol 50 MG TAB PO SCH (23:30)
[2018-01-11 06:13] LABS: Glucose,Whole Blood 112 mg/dL (75-99)
[2018-01-11] MEDS: PANTOPRAZOLE 40 MG TABLET PO SCH (06:25)
[2018-01-11 06:29] LABS: Anisocytosis Slight; Basophils % (A) 0 %; Eosinophils # (A) 0.1 k/uL (0-0.7); Eosinophils % (A) 1 %; HCT 34.6 % (34.0-46.0); HGB 10.6 gm/dL (11.4-16.0); Hypochromasia Moderate; Lymphocytes % (A) 16 %; MCH 32.4 pg (25.0-35.0); MCHC 30.5 g/dL (31.0-37.0); MCV 106.2 fL (80.0-100.0); Mean Platelet Volume 8.7; Monocytes # (A) 0.4 k/uL (0-1.0); Monocytes % (A) 6 %; Neutrophils # (A) 4.9 k/uL (1.3-7.7); Neutrophils % (A) 74 %; Platelet Count 174 k/uL (150-450); RBC 3.26 m/uL (3.80-5.40); RDW 18.1 % (11.5-15.5); WBC 6.5 k/uL (3.8-10.6)
[2018-01-11 06:31] LABS: Macrocytosis Marked
[2018-01-11 06:42] LABS: Albumin 3.2 g/dL (3.5-5.0); Calcium 9.1 mg/dL (8.4-10.2); Potassium 4.6 mmol/L (3.5-5.1); Total Bilirubin 0.5 mg/dL (0.2-1.3); Total Protein 5.7 g/dL (6.3-8.2)
--- NOTE | 2018-01-11 08:01 | P.CRDCN ---
History of Present Illness Consult date: 01/11/18 Requesting physician: Elyse Owen Consult reason: congestive heart failure Chief complaint: BiLateral leg swelling and shortness of breath History of present illness: This is an 82-year-old female with known history of stage III chronic kidney disease, macular degeneration, uterine cancer, history of DVT with Darcy filter placement on anticoagulation at home, chronic persistent atrial fibrillation, chronic systolic congestive heart failure, most recent echocardiogram with Doppler study was performed in November of this year which revealed an ejection fraction of 40-45%, moderate to severe mitral regurg. Patient was seen yesterday by her visiting nurse, she was concerned about low blood pressure and call Dr. Owen who directly admitted patient to the hospital. Patient was also noted to have a significant increase in bilateral lower extremity edema. Her blood pressure on arrival here 102/80 with a heart rate in the 70s, 96% on room air. Blood pressure this morning 98/68 with a heart rate in the 80s, temperature 98.1. White blood cell count 6.5, hemoglobin 10.6, platelet count 174. Sodium 137, potassium 4.6, BUN 80, creatinine 2.5. BNP level 17,600, troponin 0.016. Patient was seen and examined this morning, overall she states that she doesn't feel too bad, mild shortness of breath especially when laying flat, she does have an increase in her bilateral peripheral edema. Patient was resumed on her home medications, she was not heard on IV Lasix. Chest x-ray shows mild plus interstitial phase cardiac pulmonary edema pattern. No EKG was performed. Past Medical History Past Medical History: Atrial Fibrillation, Coronary Artery Disease (CAD), Cancer , Diabetes Mellitus, Deep Vein Thrombosis (DVT), Eye Disorder, GERD/Reflux, Hypertension, Renal Disease Additional Past Medical History / Comment(s): Macular Degeneration, gallstones, stage 3 kidney failure, hx Uterine & groin CA; WEARS BILAT THIGH HIGH HOSE, uses cane or walker, patient states she has "2 blood clots in right groin since 2003" History of Any Multi-Drug Resistant Organisms: ESBL, VRE Date of last positivie culture/infection: 01/13/16 MDRO Source:: urine, E.coli, VRE 09/29/13 Past Surgical History: Appendectomy, Bowel Resection, Hysterectomy, Joint Replacement Additional Past Surgical History / Comment(s): gastrointestinal surgery for bowel obstruction. left hip replacement, rt breast biopsy, darcy filter rt leg, Past Anesthesia/Blood Transfusion Reactions: No Reported Reaction Past Psychological History: No Psychological Hx Reported Smoking Status: Former smoker Past Alcohol Use History: None Reported Additional Past Alcohol Use History / Comment(s): smoked 1 pkg from 1961 to 1971 Past Drug Use History: None Reported - Past Family History Mother Family Medical History: No Reported History Medications and Allergies Home Medications Medication Instructions Recorded Confirmed Type Allopurinol [Zyloprim] 200 mg PO DAILY 01/22/14 01/10/18 History Linagliptin [Tradjenta] 5 mg PO DAILY@1600 01/22/14 01/10/18 History Omeprazole [PriLOSEC] 20 mg PO QAM 01/22/14 01/10/18 History Rivaroxaban [Xarelto] 15 mg PO QAM 01/22/14 01/10/18 History Docusate Sodium [Stool Softener] 100 mg PO BID 02/22/14 01/10/18 History Garlic 1 tab PO BID 02/22/14 01/10/18 History Calcitriol 0.25 mcg PO SUTUTHSA 08/22/14 01/10/18 History Magnesium Oxide [Mag-Ox] 400 mg PO QAM 01/13/16 01/10/18 History Wheat Dextrin [Benefiber] 1 pack PO BID 01/13/16 01/10/18 History traMADol HCL [Ultram] 50 mg PO QAM 01/13/16 01/10/18 History Brinzolamide/Brimonidine Tart 1 drop BOTH EYES BID 05/11/17 01/10/18 History [Simbrinza 1%-0.2% Eye Drops] Metoprolol Tartrate [Lopressor] 25 mg PO BID 12/03/17 01/10/18 History Vit C/E/Zn/Coppr/Lutein/Zeaxan 1 cap PO BID 12/03/17 01/10/18 History [Preservision Areds 2 Softgel] Furosemide [Lasix] 40 mg PO BID@0900,1600 #60 tab 12/08/17 01/10/18 Rx Isosorbide Mononitrate ER [Imdur] 60 mg PO DAILY #30 tab.er.24h 12/08/17 Rx Spironolactone [Aldactone] 50 mg PO DAILY #30 tab 12/08/17 01/10/18 Rx hydrALAZINE HCL [Apresoline] 25 mg PO BID #60 tab 12/08/17 01/10/18 Rx Diltiazem HCl [Cartia Xt] 240 mg PO DAILY 01/10/18 01/10/18 History traMADol HCL [Ultram] 100 mg PO HS 01/10/18 01/10/18 History Ferrous Sulfate [Feosol] 325 mg PO DAILY 01/11/18 01/11/18 History Ferrous Sulfate [Iron (65 MG 01/11/18 History Elemental)] Allergies Allergy/AdvReac Type Severity Reaction Status Date / Time atorvastatin calcium Allergy Unknown Verified 01/10/18 19:16 [From Lipitor] codeine Allergy Unknown Verified 01/10/18 19:16 [From Tylenol-Codeine #3] hydrocodone Allergy Vomiting Verified 01/10/18 19:16 Physical Exam Vitals: Vital Signs Temp Pulse Resp BP Pulse Ox 01/11/18 03:30 98.1 F 86 16 98/68 97 01/10/18 23:25 97.1 F L 94 16 104/64 98 01/10/18 21:20 96.8 F L 73 18 114/74 99 01/10/18 19:09 97.7 F 73 18 102/83 96 Intake and Output 01/10/18 01/11/18 01/11/18 22:59 06:59 14:59 Output Total 0 300 Balance 0 -300 Output: Urine 0 300 Stool 0 Urine/Stool Mix 0 Emesis 0 Other: Voiding Method Toilet Toilet # Voids 0 1 # Bowel Movements 0 Weight 82.4 kg 82.5 kg PHYSICAL EXAMINATION: GENERAL: 82-year-old female in no apparent distress at the time of my examination HEENT: Head is atraumatic, normocephalic. Pupils equal, round. Sclera anicteric. Conjunctiva are clear. Mucous membranes of the mouth are moist. Neck is supple. There is elevated jugular venous pressure.] bruit is heard. HEART EXAMINATION: Heart S1 and S2 irregularly irregular, systolic murmur is heard. CHEST EXAMINATION: Lungs are essentially clear with fine rales to bilateral bases ABDOMEN: Soft, nontender. Bowel sounds are heard. No organomegaly noted. EXTREMITIES: 2+ peripheral pulses with 2+ evidence of peripheral edema and no calf tenderness noted. NEUROLOGIC patient is awake, alert and oriented -3. . Results 01/11/18 05:46 01/11/18 05:46 Cardiac Enzymes 01/10/18 01/11/18 01/11/18 Range/Units 18:28 00:25 05:46 AST 23 18 (14-36) U/L Troponin I 0.016 (0.000-0.034) ng/mL CBC 01/10/18 01/11/18 Range/Units 18:28 05:46 WBC 8.2 6.5 (3.8-10.6) k/uL RBC 3.48 L 3.26 L (3.80-5.40) m/uL Hgb 11.7 10.6 L (11.4-16.0) gm/dL Hct 37.3 34.6 (34.0-46.0) % Plt Count 212 174 (150-450) k/uL Comprehensive Metabolic Panel 01/10/18 01/11/18 Range/Units 18:28 05:46 Sodium 137 137 (137-145) mmol/L Potassium 5.0 4.6 (3.5-5.1) mmol/L Chloride 104 105 (98-107) mmol/L Carbon Dioxide 17 L 17 L (22-30) mmol/L BUN 82 H* 80 H* (7-17) mg/dL Creatinine 2.40 H 2.50 H (0.52-1.04) mg/dL Glucose 128 H 111 H (74-99) mg/dL Calcium 9.6 9.1 (8.4-10.2) mg/dL AST 23 18 (14-36) U/L ALT 39 34 (9-52) U/L Alkaline Phosphatase 79 69 (38-126) U/L Total Protein 6.5 5.7 L (6.3-8.2) g/dL Albumin 3.8 3.2 L (3.5-5.0) g/dL Current Medications Generic Name Dose Route Start Last Admin Trade Name Freq PRN Reason Stop Dose Admin Acetaminophen 1,000 mg 01/10/18 18:24 Tylenol Tab PO Q6HR PRN Mild Pain Allopurinol 200 mg 01/11/18 09:00 Zyloprim PO DAILY [facility] Calcitriol 0.25 mcg 06/07/18 09:00 Rocaltrol PO SUTUTHSA [facility] Calcium Polycarbophil 625 mg 01/10/18 21:00 01/10/18 21:39 Fibercon PO 625 mg BID [facility] Administration Cholecalciferol 2,000 unit 01/11/18 12:00 Vitamin D3 PO DAILY@1200 [facility] Docusate Sodium 100 mg 01/10/18 21:00 01/10/18 21:39 Colace PO 100 mg BID [facility] Administration Ferrous Sulfate 325 mg 01/10/18 21:00 01/10/18 21:39 Feosol PO 325 mg BID [facility] Administration Hydralazine HCl 25 mg 01/10/18 21:00 01/10/18 21:39 Apresoline PO 25 mg BID [facility] Administration Isosorbide Mononitrate 60 mg 01/11/18 09:00 Imdur PO DAILY [facility] Lactic Acid 1 applic 01/10/18 21:00 01/10/18 22:01 Lac-Hydrin 12% TOPICAL 1 applic BID [facility] Administration Linagliptin 5 mg 01/10/18 18:45 01/10/18 19:41 Tradjenta PO 5 mg DAILY@1600 [facility] Administration Magnesium Oxide 400 mg 01/11/18 09:00 Mag-Ox PO QAM [facility] Metolazone 5 mg 01/11/18 09:00 Zaroxolyn PO DAILY [facility] Metoprolol Tartrate 25 mg 01/10/18 18:45 01/10/18 23:30 Lopressor PO 25 mg TID [facility] Administration Multivitamins/Minerals 1 each 01/10/18 21:00 01/10/18 21:41 Ivite PO 1 each BID [facility] Administration Simbrinza 1%-0.2% 1 each 01/10/18 21:00 01/10/18 21:41 Eye Drops BOTH EYES 1 each BID [facility] Administration Pantoprazole Sodium 40 mg 01/11/18 07:30 01/11/18 06:25 Protonix PO 40 mg [id number] [facility] Administration Rivaroxaban 15 mg 01/11/18 09:00 Xarelto PO QAM [facility] Spironolactone 50 mg 01/11/18 09:00 Aldactone PO DAILY [facility] Tramadol HCl 50 mg 01/10/18 23:00 01/10/18 23:30 Ultram PO 50 mg Q8HR@0800,1600,2300 [facility] Administration Intake and Output 01/10/18 01/11/18 01/11/18 22:59 06:59 14:59 Output Total 0 300 Balance 0 -300 Output: Urine 0 300 Stool 0 Urine/Stool Mix 0 Emesis 0 Other: Voiding Method Toilet Toilet # Voids 0 1 # Bowel Movements 0 Weight 82.4 kg 82.5 kg 01/11/18 05:46 01/11/18 05:46 EKG Interpretations (text) No EKG performed. Rhythm strips show atrial fibrillation with a controlled ventricular response. Assessment and Plan Plan: Assessment and plan #1 systolic congestive heart failure acute on chronic, BNP level 17,600. Chest x-ray shows early pulmonary edema #2 chronic kidney disease stage III #3 chronic persistent atrial fibrillation on xarelto #4 history of DVT with prior Darcy filter placement #5 diabetes #6 hypertension Plan We will give the patient one time dose of 40 mg IV Lasix. Start her on Lasix 60 mg IV twice a day we will also initiate Zaroxolyn 2.5 mg every other day. Obtain EKG. She just had an echo performed in November of this year, we will not repeat an echo this admission, her EF at that time was 40-45% with moderate to severe MR. Further recommendations to follow. DNP note has been reviewed, I agree with a documented findings and plan of care. Patient was seen and examined.
[2018-01-11] MEDS ORDERED: FUROSEMIDE 10 MG/ML 4 ML VIAL IV STA (08:02)
[2018-01-11] MEDS: traMADol 50 MG TAB PO SCH ×3 (08:26→22:12)
[2018-01-11] MEDS: CALCITRIOL 0.25 MCG CAP PO SCH (08:27)
[2018-01-11] MEDS: DOCUSATE 100 MG CAP PO SCH ×2 (08:27→19:48)
[2018-01-11] MEDS: AMMONIUM LACTATE 12% LOTION 225 GM BTL TOPICAL SCH ×2 (08:27→19:47)
[2018-01-11] MEDS: ALLOPURINOL 100 MG TAB PO SCH (08:27)
[2018-01-11] MEDS: CALCIUM POLYCARBOPHIL 625 MG TAB PO SCH ×2 (08:27→19:50)
[2018-01-11] MEDS: FERROUS SULFATE 325 MG TAB PO SCH ×2 (08:28→19:48)
[2018-01-11] MEDS: MAGNESIUM OXIDE 400 MG TAB PO SCH (08:28)
[2018-01-11] MEDS: hydrALAZINE HCL 25 MG TAB PO SCH (08:28)
[2018-01-11] MEDS: ISOSORBIDE MONONITRATE ER 60 MG TAB.ER.24H PO SCH (08:28)
[2018-01-11] MEDS: RIVAROXABAN 15 MG TAB PO SCH (08:29)
[2018-01-11] MEDS: METOPROLOL TARTRATE 25 MG TAB PO SCH ×3 (08:29→19:50)
[2018-01-11] MEDS: VIT A,C & E-LUTEIN-MINERALS 1 EACH TAB PO SCH (08:30)
[2018-01-11] MEDS ORDERED: SPIRONOLACTONE 25 MG TAB PO SCH (09:00)
--- NOTE | 2018-01-11 10:35 | P.NPCON ---
History of Present Illness - Reason for Consult acute renal failure, chronic renal failure - History of Present Illness Reason for consultation: Acute kidney injury on chronic kidney disease History of present illness: Patient is a 82-year-old female sitting in consultation for acute kidney injury on chronic kidney disease. Patient has chronic kidney disease stage IV secondary to cardiorenal syndrome with baseline creatinine in the range of 1.8- 2. Creatinine on admission was 2.4 and is up to 2.5 today. Patient has history of systolic CHF with ejection fraction of 40-45% with severe mitral regurgitation. Patient was taking Lasix but states that it was recently discontinued. She subsequently developed worsening left lower extremity swelling and weight gain. She also admits to abdominal bloating. Her chest x- ray was suggestive of early pulmonary edema. She is currently maintained on Lasix 60 mg IV twice daily. Oral intake is good. Denies vomiting or diarrhea. Denies use of NSAIDs. Denies chest pain. Her blood pressure was in the systolic 90s this admission and was 116/69 this morning. Denies hematuria or dysuria. Vital signs are stable. General: The patient appeared well nourished and normally developed. HEENT: Head exam is unremarkable. Neck is without jugular venous distension. LUNGS: Lungs are clear to auscultation and percussion. Breath sounds decreased. HEART: Rate and Rhythm are regular. First and second heart sounds normal. No murmurs, rubs or gallops. ABDOMEN: Abdominal exam reveals normal bowel sounds. Non-tender and non- distended. No evidence of peritonitis. EXTREMITITES: 2+ edema. Past Medical History Past Medical History: Atrial Fibrillation, Coronary Artery Disease (CAD), Cancer , Diabetes Mellitus, Deep Vein Thrombosis (DVT), Eye Disorder, GERD/Reflux, Hypertension, Renal Disease Additional Past Medical History / Comment(s): Macular Degeneration, gallstones, stage 3 kidney failure, hx Uterine & groin CA; WEARS BILAT THIGH HIGH HOSE, uses cane or walker, patient states she has "2 blood clots in right groin since 2003" History of Any Multi-Drug Resistant Organisms: ESBL, VRE Date of last positivie culture/infection: 01/13/16 MDRO Source:: urine, E.coli, VRE 09/29/13 Past Surgical History: Appendectomy, Bowel Resection, Hysterectomy, Joint Replacement Additional Past Surgical History / Comment(s): gastrointestinal surgery for bowel obstruction. left hip replacement, rt breast biopsy, darcy filter rt leg, Past Anesthesia/Blood Transfusion Reactions: No Reported Reaction Past Psychological History: No Psychological Hx Reported Smoking Status: Former smoker Past Alcohol Use History: None Reported Additional Past Alcohol Use History / Comment(s): smoked 1 pkg from 1961 to 1971 Past Drug Use History: None Reported - Past Family History Mother Family Medical History: No Reported History Medications and Allergies Home Medications Medication Instructions Recorded Confirmed Type Allopurinol [Zyloprim] 200 mg PO DAILY 01/22/14 01/10/18 History Linagliptin [Tradjenta] 5 mg PO DAILY@1600 01/22/14 01/10/18 History Omeprazole [PriLOSEC] 20 mg PO QAM 01/22/14 01/10/18 History Rivaroxaban [Xarelto] 15 mg PO QAM 01/22/14 01/10/18 History Docusate Sodium [Stool Softener] 100 mg PO BID 02/22/14 01/10/18 History Garlic 1 tab PO BID 02/22/14 01/10/18 History Calcitriol 0.25 mcg PO SUTUTHSA 08/22/14 01/10/18 History Magnesium Oxide [Mag-Ox] 400 mg PO QAM 01/13/16 01/10/18 History Wheat Dextrin [Benefiber] 1 pack PO BID 01/13/16 01/10/18 History traMADol HCL [Ultram] 50 mg PO QAM 01/13/16 01/10/18 History Brinzolamide/Brimonidine Tart 1 drop BOTH EYES BID 05/11/17 01/10/18 History [Simbrinza 1%-0.2% Eye Drops] Metoprolol Tartrate [Lopressor] 25 mg PO BID 12/03/17 01/10/18 History Vit C/E/Zn/Coppr/Lutein/Zeaxan 1 cap PO BID 12/03/17 01/10/18 History [Preservision Areds 2 Softgel] Furosemide [Lasix] 40 mg PO BID@0900,1600 #60 tab 12/08/17 01/10/18 Rx Isosorbide Mononitrate ER [Imdur] 60 mg PO DAILY #30 tab.er.24h 12/08/17 Rx Spironolactone [Aldactone] 50 mg PO DAILY #30 tab 12/08/17 01/10/18 Rx hydrALAZINE HCL [Apresoline] 25 mg PO BID #60 tab 12/08/17 01/10/18 Rx Diltiazem HCl [Cartia Xt] 240 mg PO DAILY 01/10/18 01/10/18 History traMADol HCL [Ultram] 100 mg PO HS 01/10/18 01/10/18 History Ferrous Sulfate [Feosol] 325 mg PO DAILY 01/11/18 01/11/18 History Ferrous Sulfate [Iron (65 MG 01/11/18 History Elemental)] Allergies Allergy/AdvReac Type Severity Reaction Status Date / Time atorvastatin calcium Allergy Unknown Verified 01/10/18 19:16 [From Lipitor] codeine Allergy Unknown Verified 01/10/18 19:16 [From Tylenol-Codeine #3] hydrocodone Allergy Vomiting Verified 01/10/18 19:16 Physical Exam Vitals: Vital Signs Temp Pulse Resp BP Pulse Ox 01/11/18 08:00 97.1 F L 95 16 116/69 98 01/11/18 03:30 98.1 F 86 16 98/68 97 01/10/18 23:25 97.1 F L 94 16 104/64 98 01/10/18 21:20 96.8 F L 73 18 114/74 99 01/10/18 19:09 97.7 F 73 18 102/83 96 Intake and Output 01/10/18 01/11/18 01/11/18 22:59 06:59 14:59 Output Total 0 300 Balance 0 -300 Output: Urine 0 300 Stool 0 0 Urine/Stool Mix 0 Emesis 0 Other: Voiding Method Toilet Toilet Toilet # Voids 0 1 # Bowel Movements 0 Weight 82.4 kg 82.5 kg Results - Lab Results Most recent lab results Calcium 9.1 mg/dL (8.4-10.2) 01/11/18 05:46 01/11/18 05:46 01/11/18 05:46 Assessment and Plan Plan: Assessment: 1. Nonoliguric acute kidney injury secondary to ATN secondary to cardiorenal syndrome. Creatinine up to 2.5 today. Rule out urinary retention. 2. Volume overload. 3. Systolic CHF with ejection fraction of 40-45% with severe mitral regurgitation. 4. Metabolic acidosis secondary to chronic kidney disease. 5. Chronic kidney disease stage IV with baseline creatinine in the range of 1.8 -2 secondary to cardiorenal syndrome. 6. Chronic kidney disease mineral bone disease maintained on calcitriol. 7. Diabetes mellitus. Plan: Continue Lasix 60 mg IV twice daily. Check postvoid residual. Add oral sodium bicarbonate 650 mg twice daily. Check urinalysis. Low-salt diet. Repeat electrolytes in the morning. Thank you for the consultation. I will continue to follow the patient with you during her hospital stay.
[2018-01-11] MEDS: METOLAZONE 5 MG TAB PO SCH (11:01)
--- NOTE | 2018-01-11 11:48 | P.HPIM ---
History of Present Illness H&P Date: 01/11/18 Chief Complaint: Low blood pressure This is a 82-year-old female with complex past medical history noted below significant for chronic systolic congestive heart failure who was sent to the hospital for further evaluation of hypotension. Apparently her systolic blood pressure was found to be in the 90s to low 100 by her visiting nurse. Patient reports mild shortness of breath. She also reports worsening bilateral lower extremity edema. She was admitted to the hospital directly by her primary care physician. She was found to have a BNP of 17,000 which is significantly higher than her baseline. Chest x-ray showed evidence of congestion. Patient was started on IV Lasix and was seen and evaluated by cardiology. She is feeling relatively better right now. Family at bedside. Review of Systems Review of system: 14 points review of systems were obtained and were negative except to what were mentioned in the HPI. Past Medical History Past Medical History: Atrial Fibrillation, Coronary Artery Disease (CAD), Cancer , Diabetes Mellitus, Deep Vein Thrombosis (DVT), Eye Disorder, GERD/Reflux, Hypertension, Renal Disease Additional Past Medical History / Comment(s): Macular Degeneration, gallstones, stage 3 kidney failure, hx Uterine & groin CA; WEARS BILAT THIGH HIGH HOSE, uses cane or walker, patient states she has "2 blood clots in right groin since 2003" History of Any Multi-Drug Resistant Organisms: ESBL, VRE Date of last positivie culture/infection: 01/13/16 MDRO Source:: urine, E.coli, VRE 09/29/13 Past Surgical History: Appendectomy, Bowel Resection, Hysterectomy, Joint Replacement Additional Past Surgical History / Comment(s): gastrointestinal surgery for bowel obstruction. left hip replacement, rt breast biopsy, darcy filter rt leg, Past Anesthesia/Blood Transfusion Reactions: No Reported Reaction Past Psychological History: No Psychological Hx Reported Smoking Status: Former smoker Past Alcohol Use History: None Reported Additional Past Alcohol Use History / Comment(s): smoked 1 pkg from 2 to 1971 Past Drug Use History: None Reported - Past Family History Mother Family Medical History: No Reported History Medications and Allergies Home Medications Medication Instructions Recorded Confirmed Type Allopurinol [Zyloprim] 200 mg PO DAILY 01/22/14 01/10/18 History Linagliptin [Tradjenta] 5 mg PO DAILY@1600 01/22/14 01/10/18 History Omeprazole [PriLOSEC] 20 mg PO QAM 01/22/14 01/10/18 History Rivaroxaban [Xarelto] 15 mg PO QAM 01/22/14 01/10/18 History Docusate Sodium [Stool Softener] 100 mg PO BID 02/22/14 01/10/18 History Garlic 1 tab PO BID 02/22/14 01/10/18 History Calcitriol 0.25 mcg PO SUTUTHSA 08/22/14 01/10/18 History Magnesium Oxide [Mag-Ox] 400 mg PO QAM 01/13/16 01/10/18 History Wheat Dextrin [Benefiber] 1 pack PO BID 01/13/16 01/10/18 History traMADol HCL [Ultram] 50 mg PO QAM 01/13/16 01/10/18 History Brinzolamide/Brimonidine Tart 1 drop BOTH EYES BID 05/11/17 01/10/18 History [Simbrinza 1%-0.2% Eye Drops] Metoprolol Tartrate [Lopressor] 25 mg PO BID 12/03/17 01/10/18 History Vit C/E/Zn/Coppr/Lutein/Zeaxan 1 cap PO BID 12/03/17 01/10/18 History [Preservision Areds 2 Softgel] Furosemide [Lasix] 40 mg PO BID@0900,1600 #60 tab 12/08/17 01/10/18 Rx Isosorbide Mononitrate ER [Imdur] 60 mg PO DAILY #30 tab.er.24h 12/08/17 Rx Spironolactone [Aldactone] 50 mg PO DAILY #30 tab 12/08/17 01/10/18 Rx hydrALAZINE HCL [Apresoline] 25 mg PO BID #60 tab 12/08/17 01/10/18 Rx Diltiazem HCl [Cartia Xt] 240 mg PO DAILY 01/10/18 01/10/18 History traMADol HCL [Ultram] 100 mg PO HS 01/10/18 01/10/18 History Ferrous Sulfate [Feosol] 325 mg PO DAILY 01/11/18 01/11/18 History Ferrous Sulfate [Iron (65 MG 01/11/18 History Elemental)] Allergies Allergy/AdvReac Type Severity Reaction Status Date / Time atorvastatin calcium Allergy Unknown Verified 01/10/18 19:16 [From Lipitor] codeine Allergy Unknown Verified 01/10/18 19:16 [From Tylenol-Codeine #3] hydrocodone Allergy Vomiting Verified 01/10/18 19:16 Physical Exam Vitals: Vital Signs Temp Pulse Resp BP Pulse Ox 01/11/18 08:00 97.1 F L 95 16 116/69 98 01/11/18 03:30 98.1 F 86 16 98/68 97 01/10/18 23:25 97.1 F L 94 16 104/64 98 01/10/18 21:20 96.8 F L 73 18 114/74 99 01/10/18 19:09 97.7 F 73 18 102/83 96 Intake and Output 01/10/18 01/11/18 01/11/18 22:59 06:59 14:59 Output Total 0 300 Balance 0 -300 Output: Urine 0 300 Stool 0 0 Urine/Stool Mix 0 Emesis 0 Other: Voiding Method Toilet Toilet Toilet # Voids 0 1 # Bowel Movements 0 Weight 82.4 kg 82.5 kg General: The patient is awake and alert, in no distress Eye: there is normal conjunctiva bilaterally. Neck: The neck is supple, there is no JVD. Cardiovascular: Normal S1-S2, no S3-S4, no murmurs. Respiratory: Lungs clear to auscultation bilaterally Gastrointestinal: Abdomen is soft, nontender Musculoskeletal: There is +2 pedal edema. Neurological:. Speech is normal. Skin: Skin is warm and dry Results CBC & Chem 7: 01/11/18 05:46 01/11/18 05:46 Labs: Abnormal Lab Results - Last 24 Hours (Table) 01/10/18 01/10/18 01/10/18 Range/Units 18:28 18:28 20:49 RBC 3.48 L (3.80-5.40) m/uL Hgb (11.4-16.0) gm/dL MCV 107.0 H D (80.0-100.0) fL MCHC (31.0-37.0) g/dL RDW 18.0 H (11.5-15.5) % Carbon Dioxide 17 L (22-30) mmol/L BUN 82 H* (7-17) mg/dL Creatinine 2.40 H (0.52-1.04) mg/dL Glucose 128 H (74-99) mg/dL POC Glucose (mg/dL) 160 H (75-99) mg/dL Total Protein (6.3-8.2) g/dL Albumin (3.5-5.0) g/dL 01/11/18 01/11/18 01/11/18 Range/Units 05:46 05:46 06:11 RBC 3.26 L (3.80-5.40) m/uL Hgb 10.6 L (11.4-16.0) gm/dL MCV 106.2 H (80.0-100.0) fL MCHC 30.5 L (31.0-37.0) g/dL RDW 18.1 H (11.5-15.5) % Carbon Dioxide 17 L (22-30) mmol/L BUN 80 H* (7-17) mg/dL Creatinine 2.50 H (0.52-1.04) mg/dL Glucose 111 H (74-99) mg/dL POC Glucose (mg/dL) 112 H (75-99) mg/dL Total Protein 5.7 L (6.3-8.2) g/dL Albumin 3.2 L (3.5-5.0) g/dL Thrombosis Risk Factor Assmnt - Choose All That Apply Each Factor Represents 1 point: Obesity (BMI >25), Swollen legs (current) Each Risk Factor Represents 3 Points: Age 75 years or older, History of DVT/PE Thrombosis Risk Factor Assessment Total Risk Factor Score: 8 Thrombosis Risk Factor Assessment Level: High Risk Assessment and Plan Assessment: 1. Acute systolic heart failure exacerbation with elevated BNP and evidence of fluid overload. Continue IV Lasix for now. Cardiology following. Last echocardiogram showed ejection fraction of 40%. 2. Acute on chronic kidney disease stage IIIB. Nephrology following closely. We will continue to monitor while on IV Lasix 3. Chronic atrial fibrillation on anticoagulation with Rivaroxaban. Heart rate within acceptable range 4. History of DVT with prior Darcy filter placement 5. Essential hypertension: Blood pressure on the lower side now. I adjusted her regimen by discontinuing hydralazine and decreasing Aldactone dose to 25. We will continue to monitor closely 6. Type 2 diabetes mellitus 7. DVT prophylaxis, patient anticoagulated with Rivaroxaban.
[2018-01-11 12:20] LABS: Glucose,Whole Blood 137 mg/dL (75-99)
[2018-01-11] MEDS: CHOLECALCIFEROL 1,000 UNIT TAB PO SCH (12:36)
[2018-01-11] MEDS: SODIUM BICARBONATE TAB 650 MG TAB PO SCH ×2 (12:36→19:51)
[2018-01-11] MEDS: [UNRECOGNIZED DRUG - OTHER] PO SCH ×2 (13:04→19:49)
[2018-01-11 13:41] VITALS: BMI 33.3
--- NOTE | 2018-01-11 13:57 | P.CNPUL ---
History of Present Illness Consult date: 01/11/18 Reason for consult: dyspnea, cough, pleural effusion Chief complaint: Shortness of breath, hypotension, increased swelling of the lower extremit History of present illness: 82-year-old female with prior medical history of chronic systolic heart failure as well as history of small bilateral pleural effusion and chronic atrial fibrillation patient has been having issues associated low blood pressure also increased swelling of the lower extremity has been more short of breath than baseline came into emergency department was seen eval reexamined and found to have been acute exacerbation of CHF likely related to acute systolic heart failure with baseline chronic systolic heart failure BNP was over 17,000 she has increased swelling of the lower extremity and chest x-ray suggestive of interstitial edema as well as a small bilateral pleural effusion patient has received a dose of Lasix since then she is feeling slightly better and they're making a good urine Her significant history includes coronary artery disease chronic systolic heart failure, history of deep venous thrombosis GERD history of the eye disorder chronic atrial fibrillation type 2 diabetes mellitus and 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 patient also has history of macular degeneration On specific questioning denies any loss of consciousness) denies any chest pain denies any cough or sputum production denies any bowel or bladder dysfunction Review of Systems All systems: negative Past Medical History Past Medical History: Atrial Fibrillation, Coronary Artery Disease (CAD), Cancer , Diabetes Mellitus, Deep Vein Thrombosis (DVT), Eye Disorder, GERD/Reflux, Hypertension, Renal Disease Additional Past Medical History / Comment(s): Macular Degeneration, gallstones, stage 3 kidney failure, hx Uterine & groin CA; WEARS BILAT THIGH HIGH HOSE, uses cane or walker, patient states she has "2 blood clots in right groin since 2003" History of Any Multi-Drug Resistant Organisms: ESBL, VRE Date of last positivie culture/infection: 01/13/16 MDRO Source:: urine, E.coli, VRE 09/29/13 Past Surgical History: Appendectomy, Bowel Resection, Hysterectomy, Joint Replacement Additional Past Surgical History / Comment(s): gastrointestinal surgery for bowel obstruction. left hip replacement, rt breast biopsy, [place] filter rt leg, Past Anesthesia/Blood Transfusion Reactions: No Reported Reaction Past Psychological History: No Psychological Hx Reported Smoking Status: Former smoker Past Alcohol Use History: None Reported Additional Past Alcohol Use History / Comment(s): smoked 1 pkg from 1961 to 1971 Past Drug Use History: None Reported - Past Family History Mother Family Medical History: No Reported History Medications and Allergies Home Medications Medication Instructions Recorded Confirmed Type Allopurinol [Zyloprim] 200 mg PO DAILY 01/22/14 01/10/18 History Linagliptin [Tradjenta] 5 mg PO DAILY@1600 01/22/14 01/10/18 History Omeprazole [PriLOSEC] 20 mg PO QAM 01/22/14 01/10/18 History Rivaroxaban [Xarelto] 15 mg PO QAM 01/22/14 01/10/18 History Docusate Sodium [Stool Softener] 100 mg PO BID 02/22/14 01/10/18 History Garlic 1 tab PO BID 02/22/14 01/10/18 History Calcitriol 0.25 mcg PO SUTUTHSA 08/22/14 01/10/18 History Magnesium Oxide [Mag-Ox] 400 mg PO QAM 01/13/16 01/10/18 History Wheat Dextrin [Benefiber] 1 pack PO BID 01/13/16 01/10/18 History traMADol HCL [Ultram] 50 mg PO QAM 01/13/16 01/10/18 History Brinzolamide/Brimonidine Tart 1 drop BOTH EYES BID 05/11/17 01/10/18 History [Simbrinza 1%-0.2% Eye Drops] Metoprolol Tartrate [Lopressor] 25 mg PO BID 12/03/17 01/10/18 History Vit C/E/Zn/Coppr/Lutein/Zeaxan 1 cap PO BID 12/03/17 01/10/18 History [Preservision Areds 2 Softgel] Furosemide [Lasix] 40 mg PO BID@0900,1600 #60 tab 12/08/17 01/10/18 Rx Isosorbide Mononitrate ER [Imdur] 60 mg PO DAILY #30 tab.er.24h 12/08/17 Rx Spironolactone [Aldactone] 50 mg PO DAILY #30 tab 12/08/17 01/10/18 Rx hydrALAZINE HCL [Apresoline] 25 mg PO BID #60 tab 12/08/17 01/10/18 Rx Diltiazem HCl [Cartia Xt] 240 mg PO DAILY 01/10/18 01/10/18 History traMADol HCL [Ultram] 100 mg PO HS 01/10/18 01/10/18 History Ferrous Sulfate [Feosol] 325 mg PO DAILY 01/11/18 01/11/18 History Ferrous Sulfate [Iron (65 MG 01/11/18 History Elemental)] Allergies Allergy/AdvReac Type Severity Reaction Status Date / Time atorvastatin calcium Allergy Unknown Verified 01/10/18 19:16 [From Lipitor] codeine Allergy Unknown Verified 01/10/18 19:16 [From Tylenol-Codeine #3] hydrocodone Allergy Vomiting Verified 01/10/18 19:16 Physical Exam Vitals: Vital Signs Temp Pulse Resp BP Pulse Ox 01/11/18 12:00 97.1 F L 104 H 16 117/69 97 01/11/18 08:00 97.1 F L 95 16 116/69 98 01/11/18 03:30 98.1 F 86 16 98/68 97 01/10/18 23:25 97.1 F L 94 16 104/64 98 01/10/18 21:20 96.8 F L 73 18 114/74 99 01/10/18 19:09 97.7 F 73 18 102/83 96 Intake and Output 01/10/18 01/11/18 01/11/18 22:59 06:59 14:59 Output Total 0 300 Balance 0 -300 Output: Urine 0 300 Stool 0 0 Urine/Stool Mix 0 Emesis 0 Other: Voiding Method Toilet Toilet Toilet # Voids 0 1 # Bowel Movements 0 Weight 82.4 kg 82.5 kg 82.5 kg - Constitutional General appearance: cooperative, disheveled, mild distress, obese - EENT Eyes: EOMI, PERRLA, normal appearance ENT: hearing grossly normal, normal oropharynx Ears: bilateral: normal - Neck Carotids: bilateral: upstroke normal, bruit absent Thyroid: bilateral: normal size - Respiratory Respiratory: bilateral: diminished, rales, negative: dullness, rhonchi, wheezing - Cardiovascular Heart sounds: normal: S1, S2 - Integumentary +3 edema bilaterally Integumentary: normal, normal turgor - Neurologic Neurologic: CNII-XII intact, focal deficits - Musculoskeletal Musculoskeletal: gait normal, generalized weakness, strength equal bilaterally - Psychiatric Psychiatric: A&O x's 3, appropriate affect, intact judgment & insight Results - Laboratory Findings CBC and BMP: 01/11/18 05:46 01/11/18 05:46 Abnormal lab findings: Abnormal Labs 01/10/18 01/10/18 01/10/18 18:28 18:28 20:49 RBC 3.48 L Hgb MCV 107.0 H D MCHC RDW 18.0 H Carbon Dioxide 17 L BUN 82 H* Creatinine 2.40 H Glucose 128 H POC Glucose (mg/dL) 160 H Total Protein Albumin 01/11/18 01/11/18 01/11/18 05:46 05:46 06:11 RBC 3.26 L Hgb 10.6 L MCV 106.2 H MCHC 30.5 L RDW 18.1 H Carbon Dioxide 17 L BUN 80 H* Creatinine 2.50 H Glucose 111 H POC Glucose (mg/dL) 112 H Total Protein 5.7 L Albumin 3.2 L 01/11/18 12:00 RBC Hgb MCV MCHC RDW Carbon Dioxide BUN Creatinine Glucose POC Glucose (mg/dL) 137 H Total Protein Albumin - Diagnostic Findings Chest x-ray: report reviewed, image reviewed (Cardiomegaly, interstitial edema, very small bilateral tiny pleural effusion cannot be excluded) Assessment and Plan Assessment: Acute hypoxic respirator failure Acute exacerbation of congestive heart failure related chronic systolic heart failure with acute exacerbation Chronic atrial failure acute worsening stage IV Chronic atrial fibrillation Obesity Small bilateral pleural effusion History of chronic recurrent right-sided DVT Plan: Gentle diuresis Continue Anticoagulation Deep breathing exercise incentive spirometry Monitor renal functions closely Increase activity as tolerated Monitor pleural effusion closely no plans for more invasive to mention we'll diurese and observe Time with Patient: Greater than 30
[2018-01-11] MEDS: GARLIC PO SCH ×2 (14:47→19:48)
[2018-01-11] MEDS: LINAGLIPTIN 5 MG TABLET PO SCH (15:01)
[2018-01-11 17:26] LABS: Glucose,Whole Blood 164 mg/dL (75-99)
[2018-01-11] MEDS: FUROSEMIDE 10 MG/ML 10 ML VIAL IV SCH (19:53)
[2018-01-11] MEDS ORDERED: VIT A,C & E-LUTEIN-MINERALS 1 EACH TAB PO SCH (21:00)
[2018-01-11 21:43] LABS: Glucose,Whole Blood 165 mg/dL (75-99)
[2018-01-12] MEDS: PANTOPRAZOLE 40 MG TABLET PO SCH (06:26)
[2018-01-12 06:37] LABS: Anisocytosis Slight; Basophils % (A) 0 %; Eosinophils # (A) 0.1 k/uL (0-0.7); Eosinophils % (A) 2 %; HCT 34.1 % (34.0-46.0); HGB 10.5 gm/dL (11.4-16.0); Hypochromasia Moderate; Lymphocytes # (A) 1.2 k/uL (1.0-4.8); Lymphocytes % (A) 18 %; MCH 33.1 pg (25.0-35.0); MCHC 30.9 g/dL (31.0-37.0); MCV 106.9 fL (80.0-100.0); Mean Platelet Volume 8.3; Monocytes # (A) 0.4 k/uL (0-1.0); Monocytes % (A) 5 %; Neutrophils % (A) 72 %; Platelet Count 180 k/uL (150-450); RBC 3.19 m/uL (3.80-5.40); RDW 19.1 % (11.5-15.5); WBC 6.9 k/uL (3.8-10.6)
[2018-01-12 06:38] LABS: Macrocytosis Marked
[2018-01-12 06:41] LABS: Glucose,Whole Blood 107 mg/dL (75-99)
[2018-01-12 06:51] LABS: Calcium 9.3 mg/dL (8.4-10.2); Magnesium 2.6 mg/dL (1.6-2.3); Phosphorus 5.7 mg/dL (2.5-4.5); Potassium 4.2 mmol/L (3.5-5.1)
[2018-01-12] MEDS: AMMONIUM LACTATE 12% LOTION 225 GM BTL TOPICAL SCH ×2 (09:25→21:27)
[2018-01-12] MEDS: ALLOPURINOL 100 MG TAB PO SCH (09:26)
[2018-01-12] MEDS: CALCIUM POLYCARBOPHIL 625 MG TAB PO SCH ×2 (09:26→21:27)
[2018-01-12] MEDS: FERROUS SULFATE 325 MG TAB PO SCH ×2 (09:26→21:27)
[2018-01-12] MEDS: DOCUSATE 100 MG CAP PO SCH ×2 (09:26→21:27)
[2018-01-12] MEDS: FUROSEMIDE 10 MG/ML 10 ML VIAL IV SCH ×2 (09:26→21:27)
[2018-01-12] MEDS: ISOSORBIDE MONONITRATE ER 60 MG TAB.ER.24H PO SCH (09:27)
[2018-01-12] MEDS: GARLIC PO SCH ×2 (09:27→21:28)
[2018-01-12] MEDS: MAGNESIUM OXIDE 400 MG TAB PO SCH (09:27)
[2018-01-12] MEDS: METOLAZONE 5 MG TAB PO SCH (09:28)
[2018-01-12] MEDS: METOPROLOL TARTRATE 25 MG TAB PO SCH ×3 (09:28→21:29)
[2018-01-12] MEDS: [UNRECOGNIZED DRUG - OTHER] PO SCH ×2 (09:28→21:28)
[2018-01-12] MEDS: RIVAROXABAN 15 MG TAB PO SCH (09:29)
[2018-01-12] MEDS: SPIRONOLACTONE 25 MG TAB PO SCH (09:29)
[2018-01-12] MEDS: SODIUM BICARBONATE TAB 650 MG TAB PO SCH ×2 (09:29→21:29)
[2018-01-12] MEDS: traMADol 50 MG TAB PO SCH ×3 (09:31→21:45)
--- NOTE | 2018-01-12 10:33 | P.PN ---
Subjective Progress Note Date: 01/12/18 This is an 82-year-old female with known history of stage III chronic kidney disease, macular degeneration, uterine cancer, history of DVT with [place] filter placement on anticoagulation at home, chronic persistent atrial fibrillation, chronic systolic congestive heart failure, most recent echocardiogram with Doppler study was performed in November of this year which revealed an ejection fraction of 40-45%, moderate to severe mitral regurg. Patient was seen yesterday by her visiting nurse, she was concerned about low blood pressure and call Dr. Owen who directly admitted patient to the hospital. Patient was also noted to have a significant increase in bilateral lower extremity edema. Her blood pressure on arrival here 102/80 with a heart rate in the 70s, 96% on room air. Blood pressure this morning 98/68 with a heart rate in the 80s, temperature 98.1. White blood cell count 6.5, hemoglobin 10.6, platelet count 174. Sodium 137, potassium 4.6, BUN 80, creatinine 2.5. BNP level 17,600, troponin 0.016. Patient was seen and examined this morning, overall she states that she doesn't feel too bad, mild shortness of breath especially when laying flat, she does have an increase in her bilateral peripheral edema. Patient was resumed on her home medications, she was not heard on IV Lasix. Chest x-ray shows mild plus interstitial phase cardiac pulmonary edema pattern. No EKG was performed. 01/12/2010 Patient was seen and examined this morning, echocardiogram revealed an ejection fraction of 40-45%. Her weight is down today, creatinine down to 2.4, she continues to be on IV Lasix. She is sitting up at the bedside time of her examination today, continues to have bilateral peripheral edema, breathing is overall improving. Blood pressure 108/60 with a heart rate in the 80s. 97% on room air. White blood cell count 6.9, hemoglobin 10.5, platelet count 180. Sodium 138, potassium 4.2, BUN 80, creatinine 2.4. Objective - Vital Signs Vital signs: Vital Signs Temp 97.2 F L 01/12/18 08:00 Pulse 107 H 01/12/18 08:00 Resp 16 01/12/18 08:00 BP 108/64 01/12/18 04:00 Pulse Ox 97 01/12/18 08:00 Intake & Output 01/11/18 01/12/18 01/12/18 18:59 06:59 18:59 Intake Total 600 400 Output Total 1650 800 0 Balance -1050 -800 400 Weight 82.5 kg 81.4 kg Intake: IV 10 sodium chloride 10 Oral 590 400 Output: Urine 1650 800 Stool 0 0 Other: Voiding Method Toilet Toilet Toilet # Voids 1 3 1 # Bowel Movements 1 - Exam PHYSICAL EXAMINATION: GENERAL: 82-year-old female in no apparent distress at the time of my examination HEENT: Head is atraumatic, normocephalic. Pupils equal, round. Sclera anicteric. Conjunctiva are clear. Mucous membranes of the mouth are moist. Neck is supple. There is no elevated jugular venous pressure.] bruit is heard. HEART EXAMINATION: Heart S1 and S2 irregularly irregular, systolic murmur is heard. CHEST EXAMINATION: Lungs are clear to auscultation. ABDOMEN: Soft, nontender. Bowel sounds are heard. No organomegaly noted. EXTREMITIES: 2+ peripheral pulses with 1+ evidence of peripheral edema, Rt Leg > Lt and no calf tenderness noted. NEUROLOGIC patient is awake, alert and oriented -3. - Labs CBC & Chem 7: 01/12/18 05:57 01/12/18 05:57 Labs: Abnormal Lab Results - Last 24 Hours (Table) 01/11/18 01/11/18 01/11/18 Range/Units 12:00 17:18 21:41 RBC (3.80-5.40) m/uL Hgb (11.4-16.0) gm/dL MCV (80.0-100.0) fL MCHC (31.0-37.0) g/dL RDW (11.5-15.5) % Carbon Dioxide (22-30) mmol/L BUN (7-17) mg/dL Creatinine (0.52-1.04) mg/dL POC Glucose (mg/dL) 137 H 164 H 165 H (75-99) mg/dL Phosphorus (2.5-4.5) mg/dL Magnesium (1.6-2.3) mg/dL 01/12/18 01/12/18 01/12/18 Range/Units 05:57 05:57 06:39 RBC 3.19 L (3.80-5.40) m/uL Hgb 10.5 L (11.4-16.0) gm/dL MCV 106.9 H (80.0-100.0) fL MCHC 30.9 L (31.0-37.0) g/dL RDW 19.1 H (11.5-15.5) % Carbon Dioxide 17 L (22-30) mmol/L BUN 80 H* (7-17) mg/dL Creatinine 2.40 H (0.52-1.04) mg/dL POC Glucose (mg/dL) 107 H (75-99) mg/dL Phosphorus 5.7 H (2.5-4.5) mg/dL Magnesium 2.6 H (1.6-2.3) mg/dL Assessment and Plan Plan: Assessment and plan #1 systolic congestive heart failure acute on chronic, BNP level 17,600. Chest x-ray shows early pulmonary edema #2 chronic kidney disease stage III #3 chronic persistent atrial fibrillation on xarelto #4 history of DVT with prior [place] filter placement #5 diabetes #6 hypertension Plan From cardiology's perspective, we will recommend to continue the patient on her current medications. Continue to monitor daily weights, daily lytes BUN and creatinine as well as intake and outputs. Patient has also been encouraged to keep her feet elevated. DNP note has been reviewed, I agree with a documented findings and plan of care. Patient was seen and examined.
[2018-01-12] MEDS: CHOLECALCIFEROL 1,000 UNIT TAB PO SCH (11:07)
[2018-01-12 11:53] LABS: Glucose,Whole Blood 131 mg/dL (75-99)
--- NOTE | 2018-01-12 14:15 | P.PN ---
Subjective Progress Note Date: 01/12/18 Patient is doing well today. She was up in the chair when I saw her. She is diuresing well. Lower extremity edema is improving. Objective - Vital Signs Vital signs: Vital Signs Temp 96.9 F L 01/12/18 11:46 Pulse 82 01/12/18 11:46 Resp 18 01/12/18 11:46 BP 102/58 01/12/18 11:46 Pulse Ox 97 01/12/18 11:46 Intake & Output 01/11/18 01/12/18 01/12/18 18:59 06:59 18:59 Intake Total 600 400 Output Total 1650 800 0 Balance -1050 -800 400 Weight 82.5 kg 81.4 kg Intake: IV 10 sodium chloride 10 Oral 590 400 Output: Urine 1650 800 Stool 0 0 Other: Voiding Method Toilet Toilet Toilet # Voids 1 3 1 # Bowel Movements 1 - Exam General: The patient is awake and alert, in no distress Eye: there is normal conjunctiva bilaterally. Neck: The neck is supple, there is no JVD. Cardiovascular: Normal S1-S2, no S3-S4, no murmurs. Respiratory: Lungs clear to auscultation bilaterally Gastrointestinal: Abdomen is soft, nontender Musculoskeletal: There is +2 pedal edema. Neurological:. Speech is normal. Skin: Skin is warm and dry - Labs CBC & Chem 7: 01/12/18 05:57 01/12/18 05:57 Labs: Abnormal Lab Results - Last 24 Hours (Table) 01/11/18 01/11/18 01/12/18 Range/Units 17:18 21:41 05:57 RBC 3.19 L (3.80-5.40) m/uL Hgb 10.5 L (11.4-16.0) gm/dL MCV 106.9 H (80.0-100.0) fL MCHC 30.9 L (31.0-37.0) g/dL RDW 19.1 H (11.5-15.5) % Carbon Dioxide (22-30) mmol/L BUN (7-17) mg/dL Creatinine (0.52-1.04) mg/dL POC Glucose (mg/dL) 164 H 165 H (75-99) mg/dL Phosphorus (2.5-4.5) mg/dL Magnesium (1.6-2.3) mg/dL 01/12/18 01/12/18 01/12/18 Range/Units 05:57 06:39 11:50 RBC (3.80-5.40) m/uL Hgb (11.4-16.0) gm/dL MCV (80.0-100.0) fL MCHC (31.0-37.0) g/dL RDW (11.5-15.5) % Carbon Dioxide 17 L (22-30) mmol/L BUN 80 H* (7-17) mg/dL Creatinine 2.40 H (0.52-1.04) mg/dL POC Glucose (mg/dL) 107 H 131 H (75-99) mg/dL Phosphorus 5.7 H (2.5-4.5) mg/dL Magnesium 2.6 H (1.6-2.3) mg/dL Assessment and Plan Assessment: 1. Acute systolic heart failure exacerbation with elevated BNP and evidence of fluid overload. Continue IV Lasix for now. Cardiology following. Last echocardiogram showed ejection fraction of 40%. 2. Acute on chronic kidney disease stage IIIB. Nephrology following closely. We will continue to monitor while on IV Lasix 3. Chronic atrial fibrillation on anticoagulation with Rivaroxaban. Heart rate within acceptable range 4. History of DVT with prior [place] filter placement 5. Essential hypertension: Blood pressure on the lower side now. I adjusted her regimen by discontinuing hydralazine and decreasing Aldactone dose to 25. We will continue to monitor closely 6. Type 2 diabetes mellitus 7. DVT prophylaxis, patient anticoagulated with Rivaroxaban.
--- NOTE | 2018-01-12 14:24 | PN ---
PROGRESS NOTE Patient is seen for followup for CKD and acute kidney injury. She was admitted to the hospital with volume overload. Patient is currently maintained on IV push Lasix 60 mg q.12 hours. She has had good urine output. She states she is feeling better. Her lower extremity edema has improved. Ejection fraction on echocardiogram done in November of 2017 was 40%-45%. PHYSICAL EXAMINATION: Today blood pressure is 108/64, heart rate 107 per minute. Patient is afebrile. Examination of the heart S1, S2. Examination of the lungs, bilateral breath sounds are heard. Abdomen is soft, nontender, obese. Examination lower extremity shows 3+ edema bilaterally. OPTHALMIC TECH exam is grossly intact. LABS SHOW: 1. Sodium 138, potassium 4.2, chloride 105, BUN 80, serum creatinine 2.4, hemoglobin 10.5 g/dL. ASSESSMENT: 1. Acute kidney injury, mainly cardiorenal. Currently maintained on IV push Lasix which she will continue for now. Renal function is fairly stable with creatinine staying at 2.4. 2. Chronic kidney disease and NKF stage IIIB to 4 with baseline creatinine about 1.6-2 mg/dL. 3. Cardiomyopathy, ejection fraction 40r\-45%. 4. Congestive heart failure, acute on top of chronic, systolic. 5. Severe mitral regurgitation. 6. Mineral bone disorder maintained on calcitriol. PLAN: Continue with Rocaltrol. Continue current dose of IV Lasix and the metolazone and repeat labs in a.m. MMODL / IJN: [id number] /
[2018-01-12] MEDS: LINAGLIPTIN 5 MG TABLET PO SCH (16:28)
[2018-01-12 16:44] LABS: Glucose,Whole Blood 137 mg/dL (75-99)
[2018-01-12 21:04] LABS: Glucose,Whole Blood 165 mg/dL (75-99)
[2018-01-13] MEDS: PANTOPRAZOLE 40 MG TABLET PO SCH (06:18)
[2018-01-13 06:21] LABS: Glucose,Whole Blood 117 mg/dL (75-99)
[2018-01-13 06:43] LABS: Anisocytosis Slight; Basophils % (A) 0 %; Eosinophils # (A) 0.2 k/uL (0-0.7); Eosinophils % (A) 2 %; HCT 37.5 % (34.0-46.0); HGB 11.8 gm/dL (11.4-16.0); Hypochromasia Moderate; Lymphocytes # (A) 1.5 k/uL (1.0-4.8); Lymphocytes % (A) 18 %; MCH 33.6 pg (25.0-35.0); MCHC 31.4 g/dL (31.0-37.0); Macrocytosis Marked; Mean Platelet Volume 7.9; Monocytes # (A) 0.4 k/uL (0-1.0); Monocytes % (A) 5 %; Neutrophils # (A) 5.7 k/uL (1.3-7.7); Neutrophils % (A) 72 %; Platelet Count 192 k/uL (150-450); RBC 3.51 m/uL (3.80-5.40); RDW 19.3 % (11.5-15.5)
[2018-01-13 06:55] LABS: Calcium 9.9 mg/dL (8.4-10.2); Magnesium 2.5 mg/dL (1.6-2.3); Phosphorus 5.6 mg/dL (2.5-4.5); Potassium 4.2 mmol/L (3.5-5.1)
[2018-01-13] MEDS: traMADol 50 MG TAB PO SCH ×3 (08:47→21:57)
[2018-01-13] MEDS: ALLOPURINOL 100 MG TAB PO SCH (08:48)
[2018-01-13] MEDS: CALCIUM POLYCARBOPHIL 625 MG TAB PO SCH ×2 (08:49→20:29)
[2018-01-13] MEDS: CALCITRIOL 0.25 MCG CAP PO SCH (08:49)
[2018-01-13] MEDS: DOCUSATE 100 MG CAP PO SCH ×2 (08:49→20:30)
[2018-01-13] MEDS: FERROUS SULFATE 325 MG TAB PO SCH ×2 (08:49→20:30)
[2018-01-13] MEDS: AMMONIUM LACTATE 12% LOTION 225 GM BTL TOPICAL SCH ×2 (08:49→20:29)
[2018-01-13] MEDS: FUROSEMIDE 10 MG/ML 10 ML VIAL IV SCH ×2 (08:49→20:30)
[2018-01-13] MEDS: ISOSORBIDE MONONITRATE ER 60 MG TAB.ER.24H PO SCH (08:50)
[2018-01-13] MEDS: [UNRECOGNIZED DRUG - OTHER] PO SCH ×2 (08:50→20:30)
[2018-01-13] MEDS: MAGNESIUM OXIDE 400 MG TAB PO SCH (08:50)
[2018-01-13] MEDS: GARLIC PO SCH ×2 (08:50→20:30)
[2018-01-13] MEDS: METOLAZONE 5 MG TAB PO SCH (08:50)
[2018-01-13] MEDS: METOPROLOL TARTRATE 25 MG TAB PO SCH ×3 (08:50→20:30)
[2018-01-13] MEDS: SODIUM BICARBONATE TAB 650 MG TAB PO SCH ×2 (08:52→20:30)
[2018-01-13] MEDS: SPIRONOLACTONE 25 MG TAB PO SCH (08:52)
[2018-01-13] MEDS: CHOLECALCIFEROL 1,000 UNIT TAB PO SCH (08:52)
[2018-01-13] MEDS: RIVAROXABAN 15 MG TAB PO SCH (08:52)
--- NOTE | 2018-01-13 10:37 | P.PN ---
Subjective Progress Note Date: 01/13/18 This is an 82-year-old female with known history of stage III chronic kidney disease, macular degeneration, uterine cancer, history of DVT with [place] filter placement on anticoagulation at home, chronic persistent atrial fibrillation, chronic systolic congestive heart failure, most recent echocardiogram with Doppler study was performed in November of this year which revealed an ejection fraction of 40-45%, moderate to severe mitral regurg. Patient was seen yesterday by her visiting nurse, she was concerned about low blood pressure and call Dr. Owen who directly admitted patient to the hospital. Patient was also noted to have a significant increase in bilateral lower extremity edema. Her blood pressure on arrival here 102/80 with a heart rate in the 70s, 96% on room air. Blood pressure this morning 98/68 with a heart rate in the 80s, temperature 98.1. White blood cell count 6.5, hemoglobin 10.6, platelet count 174. Sodium 137, potassium 4.6, BUN 80, creatinine 2.5. BNP level 17,600, troponin 0.016. Patient was seen and examined this morning, overall she states that she doesn't feel too bad, mild shortness of breath especially when laying flat, she does have an increase in her bilateral peripheral edema. Patient was resumed on her home medications, she was not heard on IV Lasix. Chest x-ray shows mild plus interstitial phase cardiac pulmonary edema pattern. No EKG was performed. 01/12/2010 Patient was seen and examined this morning, echocardiogram revealed an ejection fraction of 40-45%. Her weight is down today, creatinine down to 2.4, she continues to be on IV Lasix. She is sitting up at the bedside time of her examination today, continues to have bilateral peripheral edema, breathing is overall improving. Blood pressure 108/60 with a heart rate in the 80s. 97% on room air. White blood cell count 6.9, hemoglobin 10.5, platelet count 180. Sodium 138, potassium 4.2, BUN 80, creatinine 2.4. 01/13/2010 Patient was seen and examined this morning, sitting up in the chair at bedside. Breathing is improving overall. Swelling is down however she still continues to have at least one plus bilateral edema, weight is down 2 kg today and creatinine stable at 2.4. Repeat chest x-ray has been ordered for this morning. Objective - Vital Signs Vital signs: Vital Signs Temp 97.8 F 01/13/18 08:00 Pulse 82 01/13/18 08:00 Resp 18 01/13/18 08:00 BP 99/55 01/13/18 08:00 Pulse Ox 99 01/13/18 08:00 Intake & Output 01/12/18 01/13/18 01/13/18 18:59 06:59 18:59 Intake Total 880 10 Output Total 400 Balance 480 10 Weight 79.9 kg Intake: IV 10 sodium chloride 10 Oral 880 Output: Urine 400 Stool 0 Other: Voiding Method Toilet Toilet # Voids 1 2 # Bowel Movements 1 - Exam PHYSICAL EXAMINATION: GENERAL: 82-year-old female in no apparent distress at the time of my examination HEENT: Head is atraumatic, normocephalic. Pupils equal, round. Sclera anicteric. Conjunctiva are clear. Mucous membranes of the mouth are moist. Neck is supple. There is no elevated jugular venous pressure.] bruit is heard. HEART EXAMINATION: Heart S1 and S2 irregularly irregular, systolic murmur is heard. CHEST EXAMINATION: Lungs are clear to auscultation. ABDOMEN: Soft, nontender. Bowel sounds are heard. No organomegaly noted. EXTREMITIES: 2+ peripheral pulses with 1+ evidence of peripheral edema, Rt Leg > Lt and no calf tenderness noted. NEUROLOGIC patient is awake, alert and oriented -3. - Labs CBC & Chem 7: 01/13/18 06:28 01/13/18 06:28 Labs: Abnormal Lab Results - Last 24 Hours (Table) 01/12/18 01/12/18 01/12/18 Range/Units 11:50 16:42 21:01 RBC (3.80-5.40) m/uL MCV (80.0-100.0) fL RDW (11.5-15.5) % Carbon Dioxide (22-30) mmol/L BUN (7-17) mg/dL Creatinine (0.52-1.04) mg/dL Glucose (74-99) mg/dL POC Glucose (mg/dL) 131 H 137 H 165 H (75-99) mg/dL Phosphorus (2.5-4.5) mg/dL Magnesium (1.6-2.3) mg/dL 01/13/18 01/13/18 01/13/18 Range/Units 06:15 06:28 06:28 RBC 3.51 L (3.80-5.40) m/uL MCV 107.0 H (80.0-100.0) fL RDW 19.3 H (11.5-15.5) % Carbon Dioxide 20 L (22-30) mmol/L BUN 82 H* (7-17) mg/dL Creatinine 2.40 H (0.52-1.04) mg/dL Glucose 114 H (74-99) mg/dL POC Glucose (mg/dL) 117 H (75-99) mg/dL Phosphorus 5.6 H (2.5-4.5) mg/dL Magnesium 2.5 H (1.6-2.3) mg/dL Assessment and Plan Plan: Assessment and plan #1 systolic congestive heart failure acute on chronic, BNP level 17,600. Chest x-ray shows early pulmonary edema #2 chronic kidney disease stage III #3 chronic persistent atrial fibrillation on xarelto #4 history of DVT with prior [place] filter placement #5 diabetes #6 hypertension Plan From cardiology's perspective, we will recommend to continue the patient on her current medications. Continue to monitor daily weights, daily lytes BUN and creatinine as well as intake and outputs. Patient has also been encouraged to keep her feet elevated. View chest x-ray from today. DNP note has been reviewed, I agree with a documented findings and plan of care. Patient was seen and examined.
--- NOTE | 2018-01-13 11:04 | XR ---
EXAMINATION TYPE: XR chest 2V DATE OF EXAM: 01/13/2018 COMPARISON: 01/10/2018 HISTORY: Shortness of breath TECHNIQUE: Frontal and lateral views of the chest are obtained. FINDINGS: Prominent interstitial lung markings are unchanged from the prior. Chronic atelectasis and /or parenchymal scarring are seen within the bilateral mid lungs. Cardiomediastinal silhouette is aga in mildly enlarged. There is generalized osseous demineralization. There is slight vertebral body hei ght loss of a midthoracic vertebral body, unchanged from the prior. There is no new focal air space o pacity, pleural effusion, or pneumothorax seen. IMPRESSION: Running changes with no acute cardiopulmonary process.
[2018-01-13 12:07] LABS: Glucose,Whole Blood 144 mg/dL (75-99)
--- NOTE | 2018-01-13 13:49 | P.PN ---
Subjective Progress Note Date: 01/12/18 (Late entry note) Principal diagnosis: Acute exacerbation of congestive heart failure, acute on chronic diastolic and systolic heart failure baseline ejection fraction 40%, small bilateral pleural effusion, chronic atrial fibrillation, chronic anemia, history of prior DVT on the right lower extremity 01/12/2018, patient seen eval examined during the rounds clinically patient is slightly better as she is being diuresed breathing more comfortably echocardiogram results and reports are reviewed patient's renal functions are being monitor observe closely on Lasix creatinine remains stable, the lower extremity swelling is not much changed however symptomatically patient is slightly improved 82-year-old female with prior medical history of chronic systolic heart failure as well as history of small bilateral pleural effusion and chronic atrial fibrillation patient has been having issues associated low blood pressure also increased swelling of the lower extremity has been more short of breath than baseline came into emergency department was seen eval reexamined and found to have been acute exacerbation of CHF likely related to acute systolic heart failure with baseline chronic systolic heart failure BNP was over 17,000 she has increased swelling of the lower extremity and chest x-ray suggestive of interstitial edema as well as a small bilateral pleural effusion patient has received a dose of Lasix since then she is feeling slightly better and they're making a good urine Her significant history includes coronary artery disease chronic systolic heart failure, history of deep venous thrombosis GERD history of the eye disorder chronic atrial fibrillation type 2 diabetes mellitus and 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 patient also has history of macular degeneration On specific questioning denies any loss of consciousness) denies any chest pain denies any cough or sputum production denies any bowel or bladder dysfunction Objective - Vital Signs Vital signs: Vital Signs Temp 97.7 F 01/13/18 11:29 Pulse 94 01/13/18 11:31 Resp 18 01/13/18 11:29 BP 99/69 01/13/18 11:29 Pulse Ox 97 01/13/18 11:29 Intake & Output 01/12/18 01/13/18 01/13/18 18:59 06:59 18:59 Intake Total 880 10 Output Total 400 Balance 480 10 Weight 79.9 kg Intake: IV 10 sodium chloride 10 Oral 880 Output: Urine 400 Stool 0 Other: Voiding Method Toilet Toilet # Voids 1 2 # Bowel Movements 1 - Exam - Constitutional General appearance: cooperative, disheveled, mild distress, obese - EENT Eyes: EOMI, PERRLA, normal appearance ENT: hearing grossly normal, normal oropharynx Ears: bilateral: normal - Neck Carotids: bilateral: upstroke normal, bruit absent Thyroid: bilateral: normal size - Respiratory Respiratory: bilateral: diminished, rales, negative: dullness, rhonchi, wheezing - Cardiovascular Heart sounds: normal: S1, S2 - Integumentary +3 edema bilaterally Integumentary: normal, normal turgor - Neurologic Neurologic: CNII-XII intact, focal deficits - Musculoskeletal Musculoskeletal: gait normal, generalized weakness, strength equal bilaterally - Psychiatric Psychiatric: A&O x's 3, appropriate affect, intact judgment & insight - Labs CBC & Chem 7: 01/13/18 06:28 18 06:28 Labs: Abnormal Lab Results - Last 24 Hours (Table) 01/12/18 01/12/18 01/13/18 Range/Units 16:42 21:01 06:15 RBC (3.80-5.40) m/uL MCV (80.0-100.0) fL RDW (11.5-15.5) % Carbon Dioxide (22-30) mmol/L BUN (7-17) mg/dL Creatinine (0.52-1.04) mg/dL Glucose (74-99) mg/dL POC Glucose (mg/dL) 137 H 165 H 117 H (75-99) mg/dL Phosphorus (2.5-4.5) mg/dL Magnesium (1.6-2.3) mg/dL 01/13/18 01/13/18 01/13/18 Range/Units 06:28 06:28 12:00 RBC 3.51 L (3.80-5.40) m/uL MCV 107.0 H (80.0-100.0) fL RDW 19.3 H (11.5-15.5) % Carbon Dioxide 20 L (22-30) mmol/L BUN 82 H* (7-17) mg/dL Creatinine 2.40 H (0.52-1.04) mg/dL Glucose 114 H (74-99) mg/dL POC Glucose (mg/dL) 144 H (75-99) mg/dL Phosphorus 5.6 H (2.5-4.5) mg/dL Magnesium 2.5 H (1.6-2.3) mg/dL Assessment and Plan Assessment: Acute hypoxic respirator failure Acute exacerbation of congestive heart failure related chronic systolic heart failure with acute exacerbation ejection fraction 40% Chronic atrial failure acute worsening stage IV Chronic atrial fibrillation Obesity Small bilateral pleural effusion History of chronic recurrent right-sided DVT Plan: Gentle diuresis Continue Anticoagulation Deep breathing exercise incentive spirometry Monitor renal functions closely Increase activity as tolerated Monitor pleural effusion closely no plans for more invasive to mention we'll diurese and observe Time with Patient: Greater than 30
--- NOTE | 2018-01-13 14:40 | P.PN ---
Subjective Progress Note Date: 01/13/18 Principal diagnosis: This is an 82-year-old female followed up because of chronic kidney disease and acute kidney injury from cardiorenal syndrome she is being diuresed. She continues to have significant edema. She is overall improved though with less shortness of breath appetite is fair no dizziness on standing up and walking. She has chronic kidney disease stage III with baseline creatinine of about 1.6-2 , cardiomyopathy ejection fraction is 40-45%. She has mitral regurg. Currently she is on Zaroxolyn 5 mg, Lasix 60 every 12 IV, Aldactone 25 mg. She is responding clinically but with urine output not well documented though. Last 24 hours only 590 mL have been documented. Her weight though is going down from 82.5-79.9 or the last 3 days. Objective - Vital Signs Vital signs: Vital Signs Temp 97.7 F 01/13/18 11:29 Pulse 94 01/13/18 11:31 Resp 18 01/13/18 11:29 BP 99/69 01/13/18 11:29 Pulse Ox 97 01/13/18 11:29 Intake & Output 01/12/18 01/13/18 01/13/18 18:59 06:59 18:59 Intake Total 880 10 Output Total 400 Balance 480 10 Weight 79.9 kg Intake: IV 10 sodium chloride 10 Oral 880 Output: Urine 400 Stool 0 Other: Voiding Method Toilet Toilet # Voids 1 2 # Bowel Movements 1 On examination she is awake alert oriented comfortable. HEENT exam no JVP neck is supple no facial asymmetry Lungs are clear to auscultation fair air entry bilaterally normal to percussion Heart sounds are unremarkable for any murmur rub gallop, she does have mitral regurg though. Abdomen soft nontender Extremity exam was 2+ edema - Labs CBC & Chem 7: 01/13/18 06:28 01/13/18 06:28 Labs: Abnormal Lab Results - Last 24 Hours (Table) 01/12/18 01/12/18 01/13/18 Range/Units 16:42 21:01 06:15 RBC (3.80-5.40) m/uL MCV (80.0-100.0) fL RDW (11.5-15.5) % Carbon Dioxide (22-30) mmol/L BUN (7-17) mg/dL Creatinine (0.52-1.04) mg/dL Glucose (74-99) mg/dL POC Glucose (mg/dL) 137 H 165 H 117 H (75-99) mg/dL Phosphorus (2.5-4.5) mg/dL Magnesium (1.6-2.3) mg/dL 01/13/18 01/13/18 01/13/18 Range/Units 06:28 06:28 12:00 RBC 3.51 L (3.80-5.40) m/uL MCV 107.0 H (80.0-100.0) fL RDW 19.3 H (11.5-15.5) % Carbon Dioxide 20 L (22-30) mmol/L BUN 82 H* (7-17) mg/dL Creatinine 2.40 H (0.52-1.04) mg/dL Glucose 114 H (74-99) mg/dL POC Glucose (mg/dL) 144 H (75-99) mg/dL Phosphorus 5.6 H (2.5-4.5) mg/dL Magnesium 2.5 H (1.6-2.3) mg/dL Assessment and Plan Assessment: Impression 1. Acute kidney injury from cardiorenal syndrome. Creatinine is slowly getting better on Lasix, creatinine down from 2.5-2.4. 2. Maintain current diuretic regimen with Lasix and metolazone and Aldactone. 3. Check orthostatic changes. 4. Accurate I's and O's 5. Monitor labs daily.
[2018-01-13] MEDS: LINAGLIPTIN 5 MG TABLET PO SCH (15:15)
--- NOTE | 2018-01-13 15:31 | P.PN ---
Subjective Patient is doing well today. She was up in the chair when I saw her. She is diuresing well. Lower extremity edema is improving. Objective - Vital Signs Vital signs: Vital Signs Temp 97.8 F 01/13/18 15:19 Pulse 121 H 01/13/18 15:19 Resp 18 01/13/18 15:19 BP 91/63 01/13/18 15:19 Pulse Ox 99 01/13/18 15:19 Intake & Output 01/12/18 01/13/18 01/13/18 18:59 06:59 18:59 Intake Total 880 10 Output Total 400 Balance 480 10 Weight 79.9 kg Intake: IV 10 sodium chloride 10 Oral 880 Output: Urine 400 Stool 0 Other: Voiding Method Toilet Toilet # Voids 1 2 # Bowel Movements 1 - Exam General: The patient is awake and alert, in no distress Eye: there is normal conjunctiva bilaterally. Neck: The neck is supple, there is no JVD. Cardiovascular: Normal S1-S2, no S3-S4, no murmurs. Respiratory: Lungs clear to auscultation bilaterally Gastrointestinal: Abdomen is soft, nontender Musculoskeletal: There is +2 pedal edema. Neurological:. Speech is normal. Skin: Skin is warm and dry - Labs CBC & Chem 7: 01/13/18 06:28 01/13/18 06:28 Labs: Abnormal Lab Results - Last 24 Hours (Table) 01/12/18 01/12/18 01/13/18 Range/Units 16:42 21:01 06:15 RBC (3.80-5.40) m/uL MCV (80.0-100.0) fL RDW (11.5-15.5) % Carbon Dioxide (22-30) mmol/L BUN (7-17) mg/dL Creatinine (0.52-1.04) mg/dL Glucose (74-99) mg/dL POC Glucose (mg/dL) 137 H 165 H 117 H (75-99) mg/dL Phosphorus (2.5-4.5) mg/dL Magnesium (1.6-2.3) mg/dL 01/13/18 01/13/18 01/13/18 Range/Units 06:28 06:28 12:00 RBC 3.51 L (3.80-5.40) m/uL MCV 107.0 H (80.0-100.0) fL RDW 19.3 H (11.5-15.5) % Carbon Dioxide 20 L (22-30) mmol/L BUN 82 H* (7-17) mg/dL Creatinine 2.40 H (0.52-1.04) mg/dL Glucose 114 H (74-99) mg/dL POC Glucose (mg/dL) 144 H (75-99) mg/dL Phosphorus 5.6 H (2.5-4.5) mg/dL Magnesium 2.5 H (1.6-2.3) mg/dL Assessment and Plan Assessment: 1. Acute systolic heart failure exacerbation with elevated BNP and evidence of fluid overload. Continue IV Lasix for now. Cardiology following. Last echocardiogram showed ejection fraction of 40%. 2. Acute on chronic kidney disease stage IIIB. Nephrology following closely. We will continue to monitor while on IV Lasix 3. Chronic atrial fibrillation on anticoagulation with Rivaroxaban. Heart rate within acceptable range 4. History of DVT with prior [place] filter placement 5. Essential hypertension: Blood pressure on the lower side now. I adjusted her regimen by discontinuing hydralazine and decreasing Aldactone dose to 25. We will continue to monitor closely 6. Type 2 diabetes mellitus 7. DVT prophylaxis, patient anticoagulated with Rivaroxaban.
[2018-01-13 16:51] LABS: Glucose,Whole Blood 190 mg/dL (75-99)
[2018-01-13 20:42] LABS: Glucose,Whole Blood 183 mg/dL (75-99)
[2018-01-14 06:08] LABS: Glucose,Whole Blood 120 mg/dL (75-99)
[2018-01-14] MEDS: PANTOPRAZOLE 40 MG TABLET PO SCH (06:26)
[2018-01-14 06:50] LABS: Anisocytosis Slight; Basophils % (A) 0 %; Eosinophils # (A) 0.1 k/uL (0-0.7); Eosinophils % (A) 2 %; HCT 34.5 % (34.0-46.0); HGB 10.7 gm/dL (11.4-16.0); Hypochromasia Slight; Lymphocytes # (A) 1.3 k/uL (1.0-4.8); Lymphocytes % (A) 18 %; MCH 33.3 pg (25.0-35.0); MCV 107.2 fL (80.0-100.0); Mean Platelet Volume 7.9; Monocytes # (A) 0.4 k/uL (0-1.0); Monocytes % (A) 5 %; Neutrophils # (A) 5.2 k/uL (1.3-7.7); Neutrophils % (A) 73 %; Platelet Count 189 k/uL (150-450); RBC 3.22 m/uL (3.80-5.40); RDW 19.5 % (11.5-15.5); WBC 7.2 k/uL (3.8-10.6)
[2018-01-14 06:53] LABS: Macrocytosis Marked
[2018-01-14 07:10] LABS: Calcium 9.5 mg/dL (8.4-10.2); Magnesium 2.1 mg/dL (1.6-2.3); Phosphorus 5.3 mg/dL (2.5-4.5); Potassium 3.6 mmol/L (3.5-5.1)
[2018-01-14] MEDS: traMADol 50 MG TAB PO SCH ×2 (07:39→17:43)
[2018-01-14] MEDS: AMMONIUM LACTATE 12% LOTION 225 GM BTL TOPICAL SCH ×2 (07:40→21:29)
[2018-01-14] MEDS: [UNRECOGNIZED DRUG - OTHER] PO SCH ×2 (07:40→21:32)
[2018-01-14] MEDS: GARLIC PO SCH ×2 (07:40→21:31)
[2018-01-14] MEDS: SODIUM BICARBONATE TAB 650 MG TAB PO SCH ×2 (07:41→21:33)
[2018-01-14] MEDS: CHOLECALCIFEROL 1,000 UNIT TAB PO SCH (07:41)
[2018-01-14] MEDS: FUROSEMIDE 10 MG/ML 10 ML VIAL IV SCH ×2 (07:41→21:30)
[2018-01-14] MEDS: MAGNESIUM OXIDE 400 MG TAB PO SCH (07:41)
[2018-01-14] MEDS: RIVAROXABAN 15 MG TAB PO SCH (07:42)
[2018-01-14] MEDS: METOLAZONE 5 MG TAB PO SCH (07:42)
[2018-01-14] MEDS: METOPROLOL TARTRATE 25 MG TAB PO SCH ×3 (07:42→21:34)
[2018-01-14] MEDS: CALCIUM POLYCARBOPHIL 625 MG TAB PO SCH ×2 (07:43→21:30)
[2018-01-14] MEDS: FERROUS SULFATE 325 MG TAB PO SCH ×2 (07:43→21:30)
[2018-01-14] MEDS: ISOSORBIDE MONONITRATE ER 60 MG TAB.ER.24H PO SCH (07:43)
[2018-01-14] MEDS: DOCUSATE 100 MG CAP PO SCH ×2 (07:43→21:30)
[2018-01-14] MEDS: CALCITRIOL 0.25 MCG CAP PO SCH (07:43)
[2018-01-14] MEDS: ALLOPURINOL 100 MG TAB PO SCH (07:43)
[2018-01-14] MEDS: SPIRONOLACTONE 25 MG TAB PO SCH (07:44)
--- NOTE | 2018-01-14 10:53 | P.PN ---
Subjective Progress Note Date: 01/14/18 Principal diagnosis: Acute exacerbation of congestive heart failure, acute on chronic diastolic and systolic heart failure baseline ejection fraction 40%, small bilateral pleural effusion, chronic atrial fibrillation, chronic anemia, history of prior DVT on the right lower extremity 01/14/2018, patient seen eval examined during the rounds clinically overall remains stable but still mild degree or shortness of breath and lower extremity edema is present which however has improved patient is breathing more comfortably, she has poor quality of sleep due to frequently nocturnal awakening in order to go to the washroom to pass urine she is been diuresing very well labs reviewed medications reviewed, on current dose of diuresis his BUN/creatinine remains 82 and 2.5 for overall stable sugar levels are stable as well while cell count and hemoglobin count remains stable as well 01/13/2018, patient seen eval examined during the rounds clinically has been doing well awake and alert breathing comfortably she has been on diuresis tolerating well no obvious distress is present 01/12/2018, patient seen eval examined during the rounds clinically patient is slightly better as she is being diuresed breathing more comfortably echocardiogram results and reports are reviewed patient's renal functions are being monitor observe closely on Lasix creatinine remains stable, the lower extremity swelling is not much changed however symptomatically patient is slightly improved 82-year-old female with prior medical history of chronic systolic heart failure as well as history of small bilateral pleural effusion and chronic atrial fibrillation patient has been having issues associated low blood pressure also increased swelling of the lower extremity has been more short of breath than baseline came into emergency department was seen eval reexamined and found to have been acute exacerbation of CHF likely related to acute systolic heart failure with baseline chronic systolic heart failure BNP was over 17,000 she has increased swelling of the lower extremity and chest x-ray suggestive of interstitial edema as well as a small bilateral pleural effusion patient has received a dose of Lasix since then she is feeling slightly better and they're making a good urine Her significant history includes coronary artery disease chronic systolic heart failure, history of deep venous thrombosis GERD history of the eye disorder chronic atrial fibrillation type 2 diabetes mellitus and 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 patient also has history of macular degeneration On specific questioning denies any loss of consciousness) denies any chest pain denies any cough or sputum production denies any bowel or bladder dysfunction Objective - Vital Signs Vital signs: Vital Signs Temp 97.6 F 01/14/18 07:37 Pulse 87 01/14/18 08:00 Resp 18 01/14/18 07:37 BP 104/59 01/14/18 07:37 Pulse Ox 98 01/14/18 07:37 Intake & Output 01/13/18 01/14/18 01/14/18 18:59 06:59 18:59 Intake Total 240 Balance 240 Weight 78.1 kg Intake: Oral 240 Other: Voiding Method Toilet # Voids 1 - Exam - Constitutional General appearance: cooperative, disheveled, mild distress, obese - EENT Eyes: EOMI, PERRLA, normal appearance ENT: hearing grossly normal, normal oropharynx Ears: bilateral: normal - Neck Carotids: bilateral: upstroke normal, bruit absent Thyroid: bilateral: normal size - Respiratory Respiratory: bilateral: diminished, minimal basal rales, negative: dullness, rhonchi, wheezing - Cardiovascular Heart sounds: normal: S1, S2 - Integumentary +3 edema bilaterally Integumentary: normal, normal turgor - Neurologic Neurologic: CNII-XII intact, focal deficits - Musculoskeletal Musculoskeletal: gait normal, generalized weakness, strength equal bilaterally - Psychiatric Psychiatric: A&O x's 3, appropriate affect, intact judgment & insight - Labs CBC & Chem 7: 01/14/18 06:02 01/14/18 06:02 Labs: Abnormal Lab Results - Last 24 Hours (Table) 01/13/18 01/13/18 01/13/18 Range/Units 12:00 16:49 20:40 RBC (3.80-5.40) m/uL Hgb (11.4-16.0) gm/dL MCV (80.0-100.0) fL RDW (11.5-15.5) % BUN (7-17) mg/dL Creatinine (0.52-1.04) mg/dL Glucose (74-99) mg/dL POC Glucose (mg/dL) 144 H 190 H 183 H (75-99) mg/dL Phosphorus (2.5-4.5) mg/dL 01/14/18 01/14/18 01/14/18 Range/Units 06:02 06:02 06:06 RBC 3.22 L (3.80-5.40) m/uL Hgb 10.7 L (11.4-16.0) gm/dL MCV 107.2 H (80.0-100.0) fL RDW 19.5 H (11.5-15.5) % BUN 82 H* (7-17) mg/dL Creatinine 2.54 H (0.52-1.04) mg/dL Glucose 106 H (74-99) mg/dL POC Glucose (mg/dL) 120 H (75-99) mg/dL Phosphorus 5.3 H (2.5-4.5) mg/dL Assessment and Plan Assessment: Acute hypoxic respirator failure Acute exacerbation of congestive heart failure related chronic systolic heart failure with acute exacerbation ejection fraction 40% Acute on Chronic renal failure with some acute worsening stage IV, however renal functions are stable now Chronic atrial fibrillation Obesity Small bilateral minimal pleural effusion History of chronic recurrent right-sided DVT Plan: Gentle diuresis Continue Anticoagulation Deep breathing exercise incentive spirometry Monitor renal functions closely Increase activity as tolerated Monitor pleural effusion closely no plans for more invasive intervention we'll diurese and observe Time with Patient: Greater than 30
[2018-01-14 11:40] LABS: Glucose,Whole Blood 135 mg/dL (75-99)
--- NOTE | 2018-01-14 13:08 | PN ---
PROGRESS NOTE DATE OF SERVICE: 01/14/2018. HISTORY: Trina is an 82-year-old lady who was admitted to the hospital with congestive heart failure. She has she has chronic and complex medical problems including renal failure, macular degeneration, history of DVT with a [place] filter. She continues to be on IV diuretics with improvement in her symptoms. Leg edema has improved. She lost another 4 pounds. EXAM: She is afebrile. Heart rate is 90 beats per minute. Blood pressure is 97/50, respirations 18. Chest exam reveals good air entry bilaterally. Heart exam reveals first and second heart sounds. No gallop. Abdomen is soft. Exam of extremities reveals bilateral pitting edema. The patient is currently on Xarelto 15 mg daily along with Lasix 60 IV every 12, Lopressor 25 t.i.d., and Aldactone. ASSESSMENT: 1. Acute exacerbation of chronic congestive heart failure. 2. Chronic atrial fibrillation. 3. Diabetes. 4. Hypertension. PLAN: 1. I will continue the IV Lasix. 2. Patient will continue the anticoagulant. Given the renal insufficiency, I am going to stop the Aldactone that the patient is on. MMODL / IJN: [id number] /
--- NOTE | 2018-01-14 14:29 | P.PN ---
Subjective Progress Note Date: 01/14/18 Principal diagnosis: This is an 82-year-old female followed up because of chronic kidney disease and acute kidney injury from cardiorenal syndrome she is being diuresed. She continues to have significant edema although it's much improved. She is overall improved though with less shortness of breath appetite is fair no dizziness on standing up and walking. She has chronic kidney disease stage III with baseline creatinine of about 1.6-2 , cardiomyopathy ejection fraction is 40-45%. She has mitral regurg. Currently she is on Zaroxolyn 5 mg, Lasix 60 every 12 IV, Aldactone 25 mg. Objective - Vital Signs Vital signs: Vital Signs Temp 97.5 F L 01/14/18 11:08 Pulse 92 01/14/18 11:08 Resp 18 01/14/18 11:08 BP 97/53 01/14/18 11:08 Pulse Ox 98 01/14/18 11:08 Intake & Output 01/13/18 01/14/18 01/14/18 18:59 06:59 18:59 Intake Total 240 Balance 240 Weight 78.1 kg Intake: Oral 240 Other: Voiding Method Toilet # Voids 1 On examination she is awake alert oriented cheerful HEENT exam JVP is elevated about 8 cm neck is supple no facial asymmetry Lungs are clear to auscultation percussion good air entry bilaterally Heart sounds are unremarkable for any murmur rub gallop Abdomen soft nontender Extremity exam was moderate edema but much better. Neurologically awake alert oriented - Labs CBC & Chem 7: 01/14/18 06:02 01/14/18 06:02 Labs: Abnormal Lab Results - Last 24 Hours (Table) 01/13/18 01/13/18 01/14/18 Range/Units 16:49 20:40 06:02 RBC 3.22 L (3.80-5.40) m/uL Hgb 10.7 L (11.4-16.0) gm/dL MCV 107.2 H (80.0-100.0) fL RDW 19.5 H (11.5-15.5) % BUN (7-17) mg/dL Creatinine (0.52-1.04) mg/dL Glucose (74-99) mg/dL POC Glucose (mg/dL) 190 H 183 H (75-99) mg/dL Phosphorus (2.5-4.5) mg/dL 01/14/18 01/14/18 01/14/18 Range/Units 06:02 06:06 11:39 RBC (3.80-5.40) m/uL Hgb (11.4-16.0) gm/dL MCV (80.0-100.0) fL RDW (11.5-15.5) % BUN 82 H* (7-17) mg/dL Creatinine 2.54 H (0.52-1.04) mg/dL Glucose 106 H (74-99) mg/dL POC Glucose (mg/dL) 120 H 135 H (75-99) mg/dL Phosphorus 5.3 H (2.5-4.5) mg/dL Assessment and Plan Assessment: Impression 1. Acute kidney injury from cardiorenal syndrome. Creatinine is slowly getting better on Lasix, creatinine down from 2.5-2.4. 2. Chronic kidney disease with baseline creatinine off 1.8 g to 2 mg, etiology is nephrosclerosis 3. History of mitral regurgitation. 4. 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 5. History of coronary artery disease and atrial fibrillation. 6. History of diabetes mellitus. 7. History of DVT. Recommendation 1. Maintain current diuretic regimen with Lasix and metolazone and Aldactone. 2. If she is discharged she needs to be on Lasix and possibly other diuretics but this may need to be frequently adjusted therefore she needs to call our office with blood pressures and urine outputs on a frequent basis. 3. Check orthostatic changes. 4. Accurate I's and O's 5. Monitor labs daily.
--- NOTE | 2018-01-14 15:07 | P.PN ---
Subjective Patient is doing well today. She was up in the chair when I saw her. She is diuresing well. Lower extremity edema is improving. Objective - Vital Signs Vital signs: Vital Signs Temp 97.5 F L 01/14/18 11:08 Pulse 92 01/14/18 11:08 Resp 18 01/14/18 11:08 BP 97/53 01/14/18 11:08 Pulse Ox 98 01/14/18 11:08 Intake & Output 01/13/18 01/14/18 01/14/18 18:59 06:59 18:59 Intake Total 240 Balance 240 Weight 78.1 kg Intake: Oral 240 Other: Voiding Method Toilet # Voids 1 - Exam General: The patient is awake and alert, in no distress Eye: there is normal conjunctiva bilaterally. Neck: The neck is supple, there is no JVD. Cardiovascular: Normal S1-S2, no S3-S4, no murmurs. Respiratory: Lungs clear to auscultation bilaterally Gastrointestinal: Abdomen is soft, nontender Musculoskeletal: There is +2 pedal edema. Neurological:. Speech is normal. Skin: Skin is warm and dry - Labs CBC & Chem 7: 01/14/18 06:02 01/14/18 06:02 Labs: Abnormal Lab Results - Last 24 Hours (Table) 01/13/18 01/13/18 01/14/18 Range/Units 16:49 20:40 06:02 RBC 3.22 L (3.80-5.40) m/uL Hgb 10.7 L (11.4-16.0) gm/dL MCV 107.2 H (80.0-100.0) fL RDW 19.5 H (11.5-15.5) % BUN (7-17) mg/dL Creatinine (0.52-1.04) mg/dL Glucose (74-99) mg/dL POC Glucose (mg/dL) 190 H 183 H (75-99) mg/dL Phosphorus (2.5-4.5) mg/dL 01/14/18 01/14/18 01/14/18 Range/Units 06:02 06:06 11:39 RBC (3.80-5.40) m/uL Hgb (11.4-16.0) gm/dL MCV (80.0-100.0) fL RDW (11.5-15.5) % BUN 82 H* (7-17) mg/dL Creatinine 2.54 H (0.52-1.04) mg/dL Glucose 106 H (74-99) mg/dL POC Glucose (mg/dL) 120 H 135 H (75-99) mg/dL Phosphorus 5.3 H (2.5-4.5) mg/dL Assessment and Plan Assessment: 1. Acute systolic heart failure exacerbation with elevated BNP and evidence of fluid overload. Continue IV Lasix for now. Cardiology following. Last echocardiogram showed ejection fraction of 40%. 2. Acute on chronic kidney disease stage IIIB. Nephrology following closely. We will continue to monitor while on IV Lasix 3. Chronic atrial fibrillation on anticoagulation with Rivaroxaban. Heart rate within acceptable range 4. History of DVT with prior [place] filter placement 5. Essential hypertension: Blood pressure on the lower side now. I adjusted her regimen by discontinuing hydralazine and decreasing Aldactone dose to 25. We will continue to monitor closely 6. Type 2 diabetes mellitus 7. DVT prophylaxis, patient anticoagulated with Rivaroxaban. Anticipated discharge home
[2018-01-14 16:35] LABS: Glucose,Whole Blood 147 mg/dL (75-99)
[2018-01-14] MEDS: LINAGLIPTIN 5 MG TABLET PO SCH (17:42)
[2018-01-15 06:49] LABS: Anisocytosis Slight; Basophils % (A) 0 %; Eosinophils # (A) 0.1 k/uL (0-0.7); Eosinophils % (A) 1 %; HCT 35.5 % (34.0-46.0); HGB 11.1 gm/dL (11.4-16.0); Hypochromasia Slight; Lymphocytes # (A) 1.3 k/uL (1.0-4.8); Lymphocytes % (A) 18 %; MCH 32.9 pg (25.0-35.0); MCHC 31.4 g/dL (31.0-37.0); MCV 104.8 fL (80.0-100.0); Mean Platelet Volume 8.9; Monocytes # (A) 0.4 k/uL (0-1.0); Monocytes % (A) 5 %; Neutrophils # (A) 5.1 k/uL (1.3-7.7); Neutrophils % (A) 72 %; Platelet Count 177 k/uL (150-450); RBC 3.39 m/uL (3.80-5.40); RDW 18.6 % (11.5-15.5)
[2018-01-15 06:53] LABS: Macrocytosis Marked
[2018-01-15 07:00] LABS: Calcium 9.6 mg/dL (8.4-10.2); Magnesium 1.9 mg/dL (1.6-2.3); Potassium 3.4 mmol/L (3.5-5.1)
[2018-01-15] MEDS: FUROSEMIDE 10 MG/ML 10 ML VIAL IV SCH (07:05)
[2018-01-15] MEDS: PANTOPRAZOLE 40 MG TABLET PO SCH (07:05)
[2018-01-15] MEDS: traMADol 50 MG TAB PO SCH ×4 (08:01→23:44)
[2018-01-15] MEDS: AMMONIUM LACTATE 12% LOTION 225 GM BTL TOPICAL SCH ×2 (08:27→21:21)
[2018-01-15] MEDS: CALCIUM POLYCARBOPHIL 625 MG TAB PO SCH ×2 (08:27→21:23)
[2018-01-15] MEDS: ALLOPURINOL 100 MG TAB PO SCH (08:27)
[2018-01-15] MEDS: DOCUSATE 100 MG CAP PO SCH ×2 (08:27→21:23)
[2018-01-15] MEDS: MAGNESIUM OXIDE 400 MG TAB PO SCH (08:28)
[2018-01-15] MEDS: FERROUS SULFATE 325 MG TAB PO SCH ×2 (08:28→21:22)
[2018-01-15] MEDS: [UNRECOGNIZED DRUG - OTHER] PO SCH ×2 (08:28→21:21)
[2018-01-15] MEDS: METOPROLOL TARTRATE 25 MG TAB PO SCH ×3 (08:28→21:24)
[2018-01-15] MEDS: RIVAROXABAN 15 MG TAB PO SCH (08:28)
[2018-01-15] MEDS: ISOSORBIDE MONONITRATE ER 60 MG TAB.ER.24H PO SCH (08:28)
[2018-01-15] MEDS: METOLAZONE 5 MG TAB PO SCH (08:28)
[2018-01-15] MEDS: GARLIC PO SCH ×2 (08:28→21:23)
[2018-01-15] MEDS: SODIUM BICARBONATE TAB 650 MG TAB PO SCH (08:28)
--- NOTE | 2018-01-15 11:18 | PN ---
PROGRESS NOTE Patient is seen for followup for chronic kidney disease and acute kidney injury. She is currently being diuresed. The patient states she is feeling much better. The Lasix has been switched to p.o. Leg swelling has decreased. PHYSICAL EXAMINATION: On examination, blood pressure is 108/66, heart rate 94 per minute. She is afebrile. EXAMINATION OF THE HEART: S1, S2. EXAMINATION OF THE LUNGS: Bilateral breath sounds are heard. Abdomen is soft, nontender. Examination of the lower extremities shows edema 1+ bilaterally with chronic skin changes. [employer] exam is grossly intact. LABS: Labs show sodium of 140, potassium 3.4, chloride 95, CO2 of 28, BUN 81, serum creatinine 2.5 mg/dL. Phosphorus 5.0. ASSESSMENT: 1. Acute kidney injury, cardiorenal, renal function is fairly stable. Agree with changing Lasix to p.o. 2. Hypokalemia secondary to diuresis. Will replace. 3. Metabolic acidosis, now improved. I will decrease the sodium bicarb to help decrease some of the sodium load which will help with the swelling as well. 4. Chronic kidney disease secondary to nephrosclerosis with baseline creatinine about 1.8. NKF stage IIIB to 4. 5. Cardiomyopathy, ejection fraction of 40% to 45%. 6. Coronary artery disease. 7. History of atrial fibrillation. PLAN: sodium bicarb. Continue current dose of p.o. Lasix. The patient will need follow up as outpatient in about 1 week's time. MMROMINAL / HARRISONN: [id number] /
[2018-01-15] MEDS: CHOLECALCIFEROL 1,000 UNIT TAB PO SCH (11:38)
[2018-01-15] MEDS ORDERED: POTASSIUM CHLORIDE ER 20 MEQ TAB.ER PO STA (12:09)
--- NOTE | 2018-01-15 12:11 | P.PN ---
Subjective Progress Note Date: 01/15/18 This is a 82-year-old female with complex past medical history noted below significant for chronic systolic congestive heart failure who was sent to the hospital for further evaluation of hypotension. Apparently her systolic blood pressure was found to be in the 90s to low 100 by her visiting nurse. Patient reports mild shortness of breath. She also reports worsening bilateral lower extremity edema. She was admitted to the hospital directly by her primary care physician. She was found to have a BNP of 17,000 which is significantly higher than her baseline. Chest x-ray showed evidence of congestion. Patient was started on IV Lasix and was seen and evaluated by cardiology. She is feeling relatively better right now. Family at bedside. 01/15/2018 patient shortness of breath and lower extremity edema are improving. Cardiology has just switched her over to oral Lasix starting tomorrow. Blood pressures are stable. Potassium will be replaced. Creatinine is down to 2.50. She is followed by nephrology. Nephrology discontinue the sodium bicarbonate Objective - Vital Signs Vital signs: Vital Signs Temp 97.0 F L 01/15/18 08:00 Pulse 87 01/15/18 08:00 Resp 18 01/15/18 08:00 BP 102/59 01/15/18 08:00 Pulse Ox 98 01/15/18 08:00 Intake & Output 01/14/18 01/15/18 01/15/18 18:59 06:59 18:59 Intake Total 240 240 Output Total 600 Balance 240 -600 240 Weight 75.5 kg Intake: Oral 240 240 Output: Urine 600 Stool 0 Other: Voiding Method Toilet # Voids 1 1 - Exam Head normocephalic Neck supple Lungs clear to auscultation bilaterally no wheezing or crackles Heart irregular. A. fib on monitor Abdomen is soft nontender nondistended positive bowel sounds no hepatosplenomegaly Extremities no edema Neuro alert and orientated to 3 - Labs CBC & Chem 7: 01/15/18 06:29 01/15/18 06:29 Labs: Abnormal Lab Results - Last 24 Hours (Table) 01/14/18 01/15/18 01/15/18 Range/Units 16:30 06:29 06:29 RBC 3.39 L (3.80-5.40) m/uL Hgb 11.1 L (11.4-16.0) gm/dL MCV 104.8 H (80.0-100.0) fL RDW 18.6 H (11.5-15.5) % Potassium 3.4 L (3.5-5.1) mmol/L Chloride 95 L (98-107) mmol/L BUN 81 H* (7-17) mg/dL Creatinine 2.50 H (0.52-1.04) mg/dL Glucose 108 H (74-99) mg/dL POC Glucose (mg/dL) 147 H (75-99) mg/dL Phosphorus 5.0 H (2.5-4.5) mg/dL Assessment and Plan Assessment: 1. Acute systolic heart failure exacerbation with elevated BNP and evidence of fluid overload. Cardiology is switched her over to oral Lasix starting tomorrow. Last echocardiogram showed ejection fraction of 40%. 2. Acute on chronic kidney disease stage IIIB. Nephrology following closely. 3. Chronic atrial fibrillation on anticoagulation with Rivaroxaban. Heart rate within acceptable range 4. History of DVT with prior [place] filter placement 5. Essential hypertension: Blood pressure on the lower side now. Aldactone and hydralazine discontinued during this admission. BP has shown improvement 6. Type 2 diabetes mellitus 7. DVT prophylaxis, patient anticoagulated with Rivaroxaban. Anticipate discharge home tomorrow, if cleared by all consulting physicians I performed an examination of the patient and discussed their management with the physician Layout Technician. I have reviewed the Physician Layout Technician's notes and agree with the documented findings and plan of care
--- NOTE | 2018-01-15 13:08 | P.PN ---
Subjective Principal diagnosis: Patient looks comfortable. She is doing well. No chest pain no undue shortness of breath. Afebrile lead 7.2F pulse rate in the 80s and 90s, respirations 18, blood pressure 103/61 mmHg Breath sounds are reduced bilaterally but no rhonchi no crackles Heart sounds. Irregular normal Lower extremity edema improving Suggest Switched to by mouth Lasix 40 mrem by mouth daily. Lasix was recently discontinued as an outpatient Continue metoprolol for rate control of atrial fibrillation Will sign off now and please call us as needed Objective - Vital Signs Vital signs: Vital Signs Temp 97.2 F L 01/15/18 11:51 Pulse 91 01/15/18 11:51 Resp 18 01/15/18 11:51 BP 103/61 01/15/18 11:51 Pulse Ox 96 01/15/18 11:51 Intake & Output 01/14/18 01/15/18 01/15/18 18:59 06:59 18:59 Intake Total 240 240 Output Total 600 Balance 240 -600 240 Weight 75.5 kg Intake: Oral 240 240 Output: Urine 600 Stool 0 Other: Voiding Method Toilet # Voids 1 1 - Labs CBC & Chem 7: 01/15/18 06:29 01/15/18 06:29 Labs: Abnormal Lab Results - Last 24 Hours (Table) 01/14/18 01/15/18 01/15/18 Range/Units 16:30 06:29 06:29 RBC 3.39 L (3.80-5.40) m/uL Hgb 11.1 L (11.4-16.0) gm/dL MCV 104.8 H (80.0-100.0) fL RDW 18.6 H (11.5-15.5) % Potassium 3.4 L (3.5-5.1) mmol/L Chloride 95 L (98-107) mmol/L BUN 81 H* (7-17) mg/dL Creatinine 2.50 H (0.52-1.04) mg/dL Glucose 108 H (74-99) mg/dL POC Glucose (mg/dL) 147 H (75-99) mg/dL Phosphorus 5.0 H (2.5-4.5) mg/dL
[2018-01-15] MEDS: LINAGLIPTIN 5 MG TABLET PO SCH (15:25)
--- NOTE | 2018-01-15 17:11 | P.PN ---
Subjective Progress Note Date: 01/15/18 Principal diagnosis: Acute exacerbation of congestive heart failure, acute on chronic diastolic and systolic heart failure baseline ejection fraction 40%, small bilateral pleural effusion, chronic atrial fibrillation, chronic anemia, history of prior DVT on the right lower extremity 01/14/2018, patient seen evmin examined during the rounds clinically patient has been doing relatively better in terms of breathing has been on oral furosemide cardiovascular service and recommended to maintain patient's furosemide not to stop it, from respiratory standpoint she is doing well breathing comfortably no obvious distress present denies any cough or sputum production labs reviewed medications reviewed 01/14/2018, patient seen evmin examined during the rounds clinically overall remains stable but still mild degree or shortness of breath and lower extremity edema is present which however has improved patient is breathing more comfortably, she has poor quality of sleep due to frequently nocturnal awakening in order to go to the washroom to pass urine she is been diuresing very well labs reviewed medications reviewed, on current dose of diuresis his BUN/creatinine remains 82 and 2.5 for overall stable sugar levels are stable as well while cell count and hemoglobin count remains stable as well 01/13/2018, patient seen evmin examined during the rounds clinically has been doing well awake and alert breathing comfortably she has been on diuresis tolerating well no obvious distress is present 01/12/2018, patient seen juventino examined during the rounds clinically patient is slightly better as she is being diuresed breathing more comfortably echocardiogram results and reports are reviewed patient's renal functions are being monitor observe closely on Lasix creatinine remains stable, the lower extremity swelling is not much changed however symptomatically patient is slightly improved 82-year-old female with prior medical history of chronic systolic heart failure as well as history of small bilateral pleural effusion and chronic atrial fibrillation patient has been having issues associated low blood pressure also increased swelling of the lower extremity has been more short of breath than baseline came into emergency department was seen juventino reexamined and found to have been acute exacerbation of CHF likely related to acute systolic heart failure with baseline chronic systolic heart failure BNP was over 17,000 she has increased swelling of the lower extremity and chest x-ray suggestive of interstitial edema as well as a small bilateral pleural effusion patient has received a dose of Lasix since then she is feeling slightly better and they're making a good urine Her significant history includes coronary artery disease chronic systolic heart failure, history of deep venous thrombosis GERD history of the eye disorder chronic atrial fibrillation type 2 diabetes mellitus and 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 patient also has history of macular degeneration On specific questioning denies any loss of consciousness) denies any chest pain denies any cough or sputum production denies any bowel or bladder dysfunction Objective - Vital Signs Vital signs: Vital Signs Temp 97.4 F L 01/15/18 16:00 Pulse 87 01/15/18 16:00 Resp 18 01/15/18 16:00 BP 109/56 01/15/18 16:00 Pulse Ox 100 01/15/18 16:00 Intake & Output 01/14/18 01/15/18 01/15/18 18:59 06:59 18:59 Intake Total 240 480 Output Total 600 400 Balance 240 -600 80 Weight 75.5 kg Intake: Oral 240 480 Output: Urine 600 400 Stool 0 Other: Voiding Method Toilet # Voids 1 1 - Exam - Constitutional General appearance: cooperative, disheveled, mild distress, obese - EENT Eyes: EOMI, PERRLA, normal appearance ENT: hearing grossly normal, normal oropharynx Ears: bilateral: normal - Neck Carotids: bilateral: upstroke normal, bruit absent Thyroid: bilateral: normal size - Respiratory Respiratory: bilateral: diminished, minimal basal rales, negative: dullness, rhonchi, wheezing - Cardiovascular Heart sounds: normal: S1, S2 - Integumentary +3 edema bilaterally Integumentary: normal, normal turgor - Neurologic Neurologic: CNII-XII intact, focal deficits - Musculoskeletal Musculoskeletal: gait normal, generalized weakness, strength equal bilaterally - Psychiatric Psychiatric: A&O x's 3, appropriate affect, intact judgment & insight - Labs CBC & Chem 7: 01/15/18 06:29 01/15/18 06:29 Labs: Abnormal Lab Results - Last 24 Hours (Table) 01/15/18 01/15/18 Range/Units 06:29 06:29 RBC 3.39 L (3.80-5.40) m/uL Hgb 11.1 L (11.4-16.0) gm/dL MCV 104.8 H (80.0-100.0) fL RDW 18.6 H (11.5-15.5) % Potassium 3.4 L (3.5-5.1) mmol/L Chloride 95 L (98-107) mmol/L BUN 81 H* (7-17) mg/dL Creatinine 2.50 H (0.52-1.04) mg/dL Glucose 108 H (74-99) mg/dL Phosphorus 5.0 H (2.5-4.5) mg/dL Assessment and Plan Assessment: Acute hypoxic respirator failure Acute exacerbation of congestive heart failure related chronic systolic heart failure with acute exacerbation ejection fraction 40% Acute on Chronic renal failure with some acute worsening stage IV, however renal functions are stable now Chronic atrial fibrillation Obesity Small bilateral minimal pleural effusion History of chronic recurrent right-sided DVT Plan: Gentle diuresis Continue Anticoagulation Deep breathing exercise incentive spirometry Monitor renal functions closely Increase activity as tolerated Monitor pleural effusion closely no plans for more invasive intervention we'll diurese and observe Time with Patient: Greater than 30
[2018-01-16 06:56] LABS: Anisocytosis Slight; Basophils % (A) 0 %; Eosinophils # (A) 0.1 k/uL (0-0.7); Eosinophils % (A) 1 %; HCT 37.7 % (34.0-46.0); HGB 11.9 gm/dL (11.4-16.0); Hypochromasia Slight; Lymphocytes # (A) 1.7 k/uL (1.0-4.8); Lymphocytes % (A) 20 %; MCH 33.7 pg (25.0-35.0); MCHC 31.4 g/dL (31.0-37.0); MCV 107.2 fL (80.0-100.0); Mean Platelet Volume 7.7; Monocytes # (A) 0.5 k/uL (0-1.0); Monocytes % (A) 5 %; Neutrophils # (A) 6.2 k/uL (1.3-7.7); Neutrophils % (A) 71 %; Platelet Count 185 k/uL (150-450); RBC 3.52 m/uL (3.80-5.40); RDW 19.2 % (11.5-15.5); WBC 8.8 k/uL (3.8-10.6)
[2018-01-16 06:59] LABS: Macrocytosis Marked
[2018-01-16] MEDS: PANTOPRAZOLE 40 MG TABLET PO SCH (07:02)
[2018-01-16 07:08] LABS: Calcium 9.6 mg/dL (8.4-10.2); Phosphorus 4.9 mg/dL (2.5-4.5)
[2018-01-16] MEDS: AMMONIUM LACTATE 12% LOTION 225 GM BTL TOPICAL SCH (08:15)
[2018-01-16] MEDS: DOCUSATE 100 MG CAP PO SCH (08:15)
[2018-01-16] MEDS: CHOLECALCIFEROL 1,000 UNIT TAB PO SCH (08:16)
[2018-01-16] MEDS: METOLAZONE 5 MG TAB PO SCH (08:16)
[2018-01-16] MEDS: ALLOPURINOL 100 MG TAB PO SCH (08:16)
[2018-01-16] MEDS: ISOSORBIDE MONONITRATE ER 60 MG TAB.ER.24H PO SCH (08:16)
[2018-01-16] MEDS: METOPROLOL TARTRATE 25 MG TAB PO SCH (08:16)
[2018-01-16] MEDS: MAGNESIUM OXIDE 400 MG TAB PO SCH (08:16)
[2018-01-16] MEDS: CALCITRIOL 0.25 MCG CAP PO SCH (08:17)
[2018-01-16] MEDS: CALCIUM POLYCARBOPHIL 625 MG TAB PO SCH (08:17)
[2018-01-16] MEDS: FERROUS SULFATE 325 MG TAB PO SCH (08:17)
[2018-01-16] MEDS: GARLIC PO SCH (08:18)
[2018-01-16] MEDS: RIVAROXABAN 15 MG TAB PO SCH (08:18)
[2018-01-16] MEDS: [UNRECOGNIZED DRUG - OTHER] PO SCH (08:19)
[2018-01-16] MEDS: traMADol 50 MG TAB PO SCH (08:23)
[2018-01-16 08:41] VITALS: BP 109/66; PULSE 67; RESP 18; TEMP 97.7
[2018-01-16] MEDS ORDERED: FUROSEMIDE 40 MG TAB PO SCH (09:00)
--- NOTE | 2018-01-16 10:44 | P.DS ---
Providers Date of admission: 01/10/18 17:27 Expected date of discharge: 01/16/18 Attending physician: Elyse Owen Consults: 01/10/18 18:20 Consult Physician Routine Consulting Provider: Tasha May Consult Reason/Comments: CHF Do you want consulting provider notified?: Yes 01/10/18 18:21 Consult Physician Routine Consulting Provider: Amish Torres Consult Reason/Comments: hypotension shortness of breath Do you want consulting provider notified?: Yes 01/10/18 21:34 Consult Physician Routine Consulting Provider: Hanna Escobar Consult Reason/Comments: CKD, elevated BUN and creatinine Do you want consulting provider notified?: Yes, Notify in am Primary care physician: Elyse Owen [facility] Course: Discharge diagnosis 1. Acute systolic heart failure exacerbation with elevated BNP and evidence of fluid overload. Cardiology is switched her over to oral Lasix starting tomorrow. Last echocardiogram showed ejection fraction of 40%. 2. Acute on chronic kidney disease stage IIIB. Nephrology following closely. 3. Chronic atrial fibrillation on anticoagulation with Rivaroxaban. Heart rate within acceptable range 4. History of DVT with prior [place] filter placement 5. Essential hypertension: Blood pressure on the lower side now. Aldactone and hydralazine discontinued during this admission. BP has shown improvement 6. Type 2 diabetes mellitus 7. DVT prophylaxis, patient anticoagulated with Rivaroxaban. Hospital course This is a 82-year-old female with complex past medical history noted below significant for chronic systolic congestive heart failure who was sent to the hospital for further evaluation of hypotension. Apparently her systolic blood pressure was found to be in the 90s to low 100 by her visiting nurse. Patient reports mild shortness of breath. She also reports worsening bilateral lower extremity edema. She was admitted to the hospital directly by her primary care physician. She was found to have a BNP of 17,000 which is significantly higher than her baseline. Chest x-ray showed evidence of congestion. Patient was started on IV Lasix and was seen and evaluated by cardiology. She is feeling relatively better right now. Family at bedside. During this admission patient's Aldactone and hydralazine were discontinued because of hypotension. Blood pressures had shown improvement. She was also treated for congestive heart failure exacerbation. She is followed closely by cardiology and nephrology. She was able to be switched over from IV Lasix to oral Lasix 40 mg daily. Her shortness of breath and lower extremity edema has improved greatly. Cardiology is recommending that patient continues on Lasix 40 mg daily for her congestive heart failure. Patient has been cleared by consulting physicians. She'll follow-up with cardiology and nephrology in the outpatient setting. Creatinine at discharge is 2.30. Case was discussed with cardiology. Patient is medically stable for discharge. Please refer to chart for any further details. I performed an examination of the patient and discussed their management with the physician Organic Section Technical Lead. I have reviewed the Physician Organic Section Technical Lead's notes and agree with the documented findings and plan of care Patient Condition at Discharge: Stable Plan - Discharge Summary Discharge Rx Participant: No New Discharge Prescriptions: New Furosemide [Lasix] 40 mg PO DAILY #30 tab Metoprolol Tartrate [Lopressor] 25 mg PO TID #90 tab Continue Linagliptin [Tradjenta] 5 mg PO DAILY@1600 Allopurinol [Zyloprim] 200 mg PO DAILY Rivaroxaban [Xarelto] 15 mg PO QAM Omeprazole [PriLOSEC] 20 mg PO QAM Docusate Sodium [Stool Softener] 100 mg PO BID Garlic 1 tab PO BID Calcitriol 0.25 mcg PO SUTUTHSA Wheat Dextrin [Benefiber] 1 pack PO BID traMADol HCL [Ultram] 50 mg PO QAM Magnesium Oxide [Mag-Ox] 400 mg PO QAM Brinzolamide/Brimonidine Tart [Simbrinza 1%-0.2% Eye Drops] 1 drop BOTH EYES BID Vit C/E/Zn/Coppr/Lutein/Zeaxan [Preservision Areds 2 Softgel] 1 cap PO BID Isosorbide Mononitrate ER [Imdur] 60 mg PO DAILY #30 tab.er.24h traMADol HCL [Ultram] 100 mg PO HS Ferrous Sulfate [Feosol] 325 mg PO DAILY Discontinued Metoprolol Tartrate [Lopressor] 25 mg PO BID Furosemide [Lasix] 40 mg PO BID@0900,1600 #60 tab hydrALAZINE HCL [Apresoline] 25 mg PO BID #60 tab Spironolactone [Aldactone] 50 mg PO DAILY #30 tab Diltiazem HCl [Cartia Xt] 240 mg PO DAILY Ferrous Sulfate [Iron (65 MG Elemental)] Discharge Medication List Allopurinol [Zyloprim] 200 mg PO DAILY 01/22/14 [History] Linagliptin [Tradjenta] 5 mg PO DAILY@1600 01/22/14 [History] Omeprazole [PriLOSEC] 20 mg PO QAM 01/22/14 [History] Rivaroxaban [Xarelto] 15 mg PO QAM 01/22/14 [History] Docusate Sodium [Stool Softener] 100 mg PO BID 02/22/14 [History] Garlic 1 tab PO BID 02/22/14 [History] Calcitriol 0.25 mcg PO SUTUTHSA 08/22/14 [History] Magnesium Oxide [Mag-Ox] 400 mg PO QAM 01/13/16 [History] Wheat Dextrin [Benefiber] 1 pack PO BID 01/13/16 [History] traMADol HCL [Ultram] 50 mg PO QAM 01/13/16 [History] Brinzolamide/Brimonidine Tart [Simbrinza 1%-0.2% Eye Drops] 1 drop BOTH EYES BID 05/11/17 [History] Vit C/E/Zn/Coppr/Lutein/Zeaxan [Preservision Areds 2 Softgel] 1 cap PO BID 12/03 [History] Isosorbide Mononitrate ER [Imdur] 60 mg PO DAILY #30 tab.er.24h 12/08/17 [Rx] traMADol HCL [Ultram] 100 mg PO HS 01/10/18 [History] Ferrous Sulfate [Feosol] 325 mg PO DAILY 01/11/18 [History] Furosemide [Lasix] 40 mg PO DAILY #30 tab 01/16/18 [Rx] Metoprolol Tartrate [Lopressor] 25 mg PO TID #90 tab 01/16/18 [Rx] Follow up Appointment(s)/Referral(s): Hanna Escobar MD [STAFF PHYSICIAN] - 01/26/18 11:00 am (Next available appointment not until February.) [facility], [NON-STAFF] - Tasha May MD [STAFF PHYSICIAN] - 01/29/18 (Please keep previous follow up appointment.) Jak Nathan MD [STAFF PHYSICIAN] - 01/26/18 9:45 am (Monday- Previous appointment changed per hospital protocol.) Rocky Wellington MD [STAFF PHYSICIAN] - 01/25/18 11:45 am Patient Instructions/Handouts: Heart Failure (DC), Acute Kidney Injury (DC), Hypotension (DC) Activity/Diet/Wound Care/Special Instructions: Diet: cardiac, diabetic, renal Activity: as tolerated Discharge Disposition: HOME WITH HOME HEALTH SERVICES
--- NOTE | 2018-01-16 14:19 | P.PN ---
Subjective Progress Note Date: 01/16/18 This is an 82-year-old female with known history of stage III chronic kidney disease, macular degeneration, uterine cancer, history of DVT with [place] filter placement on anticoagulation at home, chronic persistent atrial fibrillation, chronic systolic congestive heart failure, most recent echocardiogram with Doppler study was performed in November of this year which revealed an ejection fraction of 40-45%, moderate to severe mitral regurg. Patient was seen yesterday by her visiting nurse, she was concerned about low blood pressure and call Dr. Owen who directly admitted patient to the hospital. Patient was also noted to have a significant increase in bilateral lower extremity edema. Her blood pressure on arrival here 102/80 with a heart rate in the 70s, 96% on room air. Blood pressure this morning 98/68 with a heart rate in the 80s, temperature 98.1. White blood cell count 6.5, hemoglobin 10.6, platelet count 174. Sodium 137, potassium 4.6, BUN 80, creatinine 2.5. BNP level 17,600, troponin 0.016. Patient was seen and examined this morning, overall she states that she doesn't feel too bad, mild shortness of breath especially when laying flat, she does have an increase in her bilateral peripheral edema. Patient was resumed on her home medications, she was not heard on IV Lasix. Chest x-ray shows mild plus interstitial phase cardiac pulmonary edema pattern. No EKG was performed. 01/12/2010 Patient was seen and examined this morning, echocardiogram revealed an ejection fraction of 40-45%. Her weight is down today, creatinine down to 2.4, she continues to be on IV Lasix. She is sitting up at the bedside time of her examination today, continues to have bilateral peripheral edema, breathing is overall improving. Blood pressure 108/60 with a heart rate in the 80s. 97% on room air. White blood cell count 6.9, hemoglobin 10.5, platelet count 180. Sodium 138, potassium 4.2, BUN 80, creatinine 2.4. 01/13/2010 Patient was seen and examined this morning, sitting up in the chair at bedside. Breathing is improving overall. Swelling is down however she still continues to have at least one plus bilateral edema, weight is down 2 kg today and creatinine stable at 2.4. Repeat chest x-ray has been ordered for this morning. 01/16/2018 Patient seen and examined this morning, feeling well overall. Anticipating discharge home today. Hemodynamically stable. Objective - Vital Signs Vital signs: Vital Signs Temp 97.7 F 01/16/18 08:00 Pulse 67 01/16/18 08:00 Resp 18 01/16/18 08:00 BP 109/66 01/16/18 08:00 Pulse Ox 96 01/16/18 08:00 Intake & Output 01/15/18 01/16/18 01/16/18 18:59 06:59 18:59 Intake Total 716 200 180 Output Total 400 1000 Balance 316 -800 180 Weight 75 kg Intake: Oral 716 200 180 Output: Urine 400 1000 Stool 0 Other: Voiding Method Toilet # Voids 3 - Exam PHYSICAL EXAMINATION: GENERAL: 82-year-old female in no apparent distress at the time of my examination HEENT: Head is atraumatic, normocephalic. Pupils equal, round. Sclera anicteric. Conjunctiva are clear. Mucous membranes of the mouth are moist. Neck is supple. There is no elevated jugular venous pressure.] bruit is heard. HEART EXAMINATION: Heart S1 and S2 irregularly irregular, systolic murmur is heard. CHEST EXAMINATION: Lungs are clear to auscultation. ABDOMEN: Soft, nontender. Bowel sounds are heard. No organomegaly noted. EXTREMITIES: 2+ peripheral pulses with trace to 1+ evidence of peripheral edema , Rt Leg > Lt and no calf tenderness noted. NEUROLOGIC patient is awake, alert and oriented -3. - Labs CBC & Chem 7: 01/16/18 06:33 01/16/18 06:33 Labs: Abnormal Lab Results - Last 24 Hours (Table) 01/16/18 01/16/18 Range/Units 06:33 06:33 RBC 3.52 L (3.80-5.40) m/uL MCV 107.2 H (80.0-100.0) fL RDW 19.2 H (11.5-15.5) % Chloride 96 L (98-107) mmol/L BUN 83 H* (7-17) mg/dL Creatinine 2.30 H (0.52-1.04) mg/dL Glucose 109 H (74-99) mg/dL Phosphorus 4.9 H (2.5-4.5) mg/dL Assessment and Plan Plan: Assessment and plan #1 systolic congestive heart failure acute on chronic, BNP level 17,600. Chest x-ray shows early pulmonary edema #2 chronic kidney disease stage III #3 chronic persistent atrial fibrillation on xarelto #4 history of DVT with prior [place] filter placement #5 diabetes #6 hypertension Plan From cardiology's perspective, we will recommend to continue the patient on her current medications. Arrangements are being made for her to be discharged home today. We will make a follow-up appointment in the office post discharge. DNP note has been reviewed, I agree with a documented findings and plan of care. Patient was seen and examined.
--- NOTE | 2018-01-16 16:16 | PN ---
PROGRESS NOTE Patient is seen for followup for chronic kidney disease and acute kidney injury. She was admitted with volume overload. She has been diuresed. Patient states she is feeling much better. Her Lasix is currently at 40 mg p.o. daily. Patient is ready for discharge. Her creatinine has decreased slightly to 2.3 from 2.5 mg/dL. On examination, blood pressure is 100/57, heart rate 87 per minute. Patient is afebrile. EXAMINATION OF THE HEART: S1, S2. EXAMINATION OF LUNGS: Bilateral breath sounds are heard. ABDOMEN: Soft, non-tender. Examination of lower extremities shows trace edema bilaterally. ROLLER SKATER exam is grossly intact. Labs show sodium 138, potassium 4.0, BUN 83, serum creatinine 2.3, hemoglobin 11.9 g/dL. ASSESSMENT: 1. Acute kidney injury, cardiorenal, currently improved. 2. Congestive heart failure, systolic, acute on top of chronic. 3. Cardiomyopathy, ejection fraction 40% to 45%. 4. Chronic kidney disease secondary to nephrosclerosis, NKF stage IIIB to IV with baseline creatinine about 1.8 mg/dL. 5. History of atrial fibrillation. 6. Hypokalemia secondary to diuretics, status post replacement. PLAN: Patient can be discharged on 40 mg p.o. daily of Lasix. She will see us for followup in about one week's time. MMODL / IJN: [id number] /
== END 2018-01-16 11:35 | disposition home health service (06) | DRG 291 ==
LOC: EEVIPCON 17:27 → 6SEL 17:27
PROVIDERS: ADMIT Internal Medicine; ATTEND Internal Medicine
DX: I13.0 Hypertensive heart and chronic kidney disease with heart failure and stage 1 through stage 4 chronic kidney disease, or unspecified chronic kidney disease (principal); I50.23 Acute on chronic systolic (congestive) heart failure; N17.9 Acute kidney failure, unspecified; E87.2 Acidosis; N18.4 Chronic kidney disease, stage 4 (severe); I95.9 Hypotension, unspecified; E11.22 Type 2 diabetes mellitus with diabetic chronic kidney disease; I34.0 Nonrheumatic mitral (valve) insufficiency; I42.9 Cardiomyopathy, unspecified; I48.2 Chronic atrial fibrillation; D63.1 Anemia in chronic kidney disease; E66.9 Obesity, unspecified; E87.6 Hypokalemia; H35.30 Unspecified macular degeneration; I25.10 Atherosclerotic heart disease of native coronary artery without angina pectoris; K21.9 Gastro-esophageal reflux disease without esophagitis; E83.89 Other disorders of mineral metabolism; T50.2X5A Adverse effect of carbonic-anhydrase inhibitors, benzothiadiazides and other diuretics, initial encounter; T50.0X5A Adverse effect of mineralocorticoids and their antagonists, initial encounter; T46.5X5A Adverse effect of other antihypertensive drugs, initial encounter; Z79.84 Long term (current) use of oral hypoglycemic drugs; Z79.01 Long term (current) use of anticoagulants; Z79.899 Other long term (current) drug therapy; Z88.5 Allergy status to narcotic agent; Z88.8 Allergy status to other drugs, medicaments and biological substances; Z85.42 Personal history of malignant neoplasm of other parts of uterus; Z86.718 Personal history of other venous thrombosis and embolism; Z96.642 Presence of left artificial hip joint; Z90.710 Acquired absence of both cervix and uterus; Z87.891 Personal history of nicotine dependence; Z68.30 Body mass index [BMI] 30.0-30.9, adult; Z90.49 Acquired absence of other specified parts of digestive tract; Y92.009 Unspecified place in unspecified non-institutional (private) residence as the place of occurrence of the external cause
CPT/HCPCS: 71046; 80048; 80053; 83735; 83880; 84100; 84484; 85025

== ENCOUNTER → 2018-02-09 | Outpatient (CLI) | payer MEDICARE, BC ==
--- NOTE | 2018-02-09 12:48 | US ---
EXAMINATION TYPE: US kidneys/renal and bladder DATE OF EXAM: 02/09/2018 COMPARISON: NONE CLINICAL HISTORY: N17.9 Acute Kidney Injury. elderly pt EXAM MEASUREMENTS: Right Kidney: 10.2 x 4.0 x 4.4 cm Left Kidney: 11.0 x 6.3 x 6.2 cm Some limitations due to overlying bowel gas. Right Kidney: cortical thinning with heterogeneous sinus Left Kidney: somewhat heterogeneous sinus and cortical thinning Bladder: Bilateral Jets seen: wnl as seen Incidental note of cholelithiasis. Right kidney shows increased cortical echogenicity, cortical medullary differentiation is maintained. IMPRESSION: No evident hydronephrosis. Findings suggest medical renal disease.
== END | disposition home or self-care (01) ==
LOC: RADUSWWP 10:14
PROVIDERS: ATTEND Internal Medicine Nephrology
DX: N17.9 Acute kidney failure, unspecified (principal)
CPT/HCPCS: 76770

== ENCOUNTER 2018-02-10 12:26 | Inpatient (IN) | payer MEDICARE, BC ==
[2018-02-10] MEDS ORDERED: KETOROLAC 60 MG/2 ML VIAL IVP STA (12:55)
--- NOTE | 2018-02-10 12:57 | ED ---
General Adult HPI - General Chief complaint: Shortness of Breath Stated complaint: john, chest pain Time Seen by Provider: 02/10/18 12:26 Source: patient, RN notes reviewed Mode of arrival: wheelchair Limitations: no limitations - History of Present Illness Initial comments: This is an 83-year-old female presents emergency Department with a past medical history significant for hypertension and congestive heart failure. Patient also has chronic right hip pain. Patient comes in today because when she was up trying to get around she was having significant right hip pain and she became short of breath until she sat down and rested. Patient also complains of left-sided chest tightness associated with this difficulty breathing. Patient denies any difficulty breathing at this time is only complaining of right hip pain. Patient denies any recent fever chills or cough. Patient denies any abdominal pain patient denies nausea vomiting diarrhea. Patient denies any lightheadedness or dizziness. Patient denies any headache patient denies numbness weakness. Patient also states she has a chronic clot in her right leg. Patient states she has not noticed any increased edema in her feet lately but has noticed an increase in weight over the last couple of days - Related Data Home Medications Medication Instructions Recorded Confirmed Allopurinol [Zyloprim] 200 mg PO DAILY@79901/22/14 02/10/18 Linagliptin [Tradjenta] 5 mg PO DAILY@1500 01/22/14 02/10/18 Omeprazole [PriLOSEC] 20 mg PO DAILY@69901/22/14 02/10/18 Rivaroxaban [Xarelto] 15 mg PO DAILY@79901/22/14 02/10/18 Docusate Sodium [Stool Softener] 100 mg PO BID@02/22/14 02/10/18 Garlic 1 tab PO BID@02/22/14 02/10/18 Calcitriol 0.25 mcg PO SUTUTHSA@0808/22/14 02/10/18 Magnesium Oxide [Mag-Ox] 400 mg PO DAILY@79901/13/16 02/10/18 traMADol HCL [Ultram] 50 mg PO TID@08,16,01/13/16 02/10/18 Brinzolamide/Brimonidine Tart 1 drop BOTH EYES BID@,05/11/17 02/10/18 [Simbrinza 1%-0.2% Eye Drops] Vit C/E/Zn/Coppr/Lutein/Zeaxan 1 cap PO BID@12/03/17 02/10/18 [Preservision Areds 2 Softgel] Ferrous Sulfate [Feosol] 325 mg PO DAILY@79901/11/18 02/10/18 Ammonium Lactate Cream [Lac-Hydrin 1 applic TOPICAL BID@02/10/18 02/10/18 12% Cream] Cholecalciferol (Vitamin D3) 2,000 unit PO DAILY@79902/10/18 02/10/18 [Vitamin D3] Isosorbide Mononitrate ER [Imdur] 60 mg PO DAILY@79902/10/18 02/10/18 Metoprolol Tartrate [Lopressor] 25 mg PO TID@,,02/10/18 02/10/18 Torsemide 10 mg PO DAILY@79902/10/18 02/10/18 Wheat Dextrin [Benefiber] 1 packet PO BID@02/10/18 02/10/18 Allergies Allergy/AdvReac Type Severity Reaction Status Date / Time atorvastatin calcium Allergy Unknown Verified 02/10/18 12:58 [From Lipitor] codeine Allergy Unknown Verified 02/10/18 12:58 [From Tylenol-Codeine #3] hydrocodone Allergy Vomiting Verified 02/10/18 12:58 Review of Systems ROS Statement: Those systems with pertinent positive or pertinent negative responses have been documented in the HPI. ROS Other: All systems not noted in ROS Statement are negative. Past Medical History Past Medical History: Atrial Fibrillation, Coronary Artery Disease (CAD), Cancer , Heart Failure, Diabetes Mellitus, Deep Vein Thrombosis (DVT), Eye Disorder, GERD/Reflux, Hypertension, Renal Disease Additional Past Medical History / Comment(s): Macular Degeneration, gallstones, stage 3 kidney failure, hx Uterine & groin CA; WEARS BILAT THIGH HIGH HOSE, uses cane or walker, patient states she has "2 blood clots in right groin since 2003" CHF History of Any Multi-Drug Resistant Organisms: ESBL, VRE Date of last positivie culture/infection: 01/13/16 MDRO Source:: urine, E.coli, VRE 09/29/13 Past Surgical History: Appendectomy, Bowel Resection, Hysterectomy, Joint Replacement Additional Past Surgical History / Comment(s): gastrointestinal surgery for bowel obstruction. left hip replacement, rt breast biopsy, darcy filter rt leg, Past Anesthesia/Blood Transfusion Reactions: No Reported Reaction Past Psychological History: No Psychological Hx Reported Smoking Status: Former smoker Past Alcohol Use History: None Reported Past Drug Use History: None Reported - Past Family History Mother Family Medical History: No Reported History General Exam - General Exam Comments Initial Comments: GENERAL: Patient is well-developed and well-nourished. Patient is nontoxic and well- hydrated and is in mild distress. ENT: Neck is soft and supple. No significant lymphadenopathy is noted. Oropharynx is clear. Moist mucous membranes. Neck has full range of motion without eliciting any pain. EYES: The sclera were anicteric and conjunctiva were pink and moist. Extraocular movements were intact and pupils were equal round and reactive to light. Eyelids were unremarkable. PULMONARY: Unlabored respirations. Good breath sounds bilaterally. No audible rales rhonchi or wheezing was noted. CARDIOVASCULAR: There is a regular rate and rhythm without any murmurs gallops or rubs. ABDOMEN: Soft and nontender with normal bowel sounds. No palpable organomegaly was noted. There is no palpable pulsatile mass. SKIN: Skin is clear with no lesions or rashes and otherwise unremarkable. NEUROLOGIC: Patient is alert and oriented x3. Cranial nerves II through XII are grossly intact. Motor and sensory are also intact. Normal speech, volume and content. Symmetrical smile. MUSCULOSKELETAL: Normal extremities with adequate strength and full range of motion. No lower extremity swelling or edema. No calf tenderness. LYMPHATICS: No significant lymphadenopathy is noted PSYCHIATRIC: Normal psychiatric evaluation. Limitations: no limitations Course Vital Signs 02/10/18 02/10/18 12:31 13:19 Temperature 97.5 F L Pulse Rate 98 84 Respiratory 18 20 Rate Blood Pressure 125/83 110/70 O2 Sat by Pulse 100 100 Oximetry Medical Decision Making - Medical Decision Making EKG shows atrial fibrillation with rapid ventricular response at 112 bpm QRS is 90 QT interval 370 QTC is 505. Patient's EKG shows no ST segment elevation or depression or T wave abnormalities are noted Chest x-ray shows mild pulmonary edema. Patient did get up and ambulate but became significantly short of breath on ambulation. - Lab Data Result diagrams: 02/10/18 13:15 02/10/18 13:15 Lab Results 02/10/18 02/10/18 02/10/18 Range/Units 13:15 13:15 13:15 WBC 9.5 (3.8-10.6) k/uL RBC 3.47 L (3.80-5.40) m/uL Hgb 11.8 (11.4-16.0) gm/dL Hct 38.2 (34.0-46.0) % MCV 110.1 H (80.0-100.0) fL MCH 34.1 (25.0-35.0) pg MCHC 31.0 (31.0-37.0) g/dL RDW 19.3 H (11.5-15.5) % Plt Count 161 (150-450) k/uL PT (9.0-12.0) sec INR (<1.2) APTT (22.0-30.0) sec Sodium 137 (137-145) mmol/L Potassium 3.9 (3.5-5.1) mmol/L Chloride 102 (98-107) mmol/L Carbon Dioxide 22 (22-30) mmol/L Anion Gap 13 mmol/L BUN 51 H (7-17) mg/dL Creatinine 1.90 H (0.52-1.04) mg/dL Est GFR (CKD-EPI)AfAm 27 (>60 ml/min/1.73 sqM) Est GFR (CKD-EPI)NonAf 24 (>60 ml/min/1.73 sqM) Glucose 128 H (74-99) mg/dL Calcium 9.4 (8.4-10.2) mg/dL Magnesium 2.3 (1.6-2.3) mg/dL Total Bilirubin 1.2 (0.2-1.3) mg/dL AST 23 (14-36) U/L ALT 25 (9-52) U/L Alkaline Phosphatase 80 (38-126) U/L Total Creatine Kinase <20 L (30-135) U/L CK-MB (CK-2) 1.0 (0.0-2.4) ng/mL CK-MB (CK-2) Rel Index Troponin I 0.019 (0.000-0.034) ng/mL NT-Pro-B Natriuret Pep pg/mL Total Protein 6.4 (6.3-8.2) g/dL Albumin 3.5 (3.5-5.0) g/dL 02/10/18 02/10/18 Range/Units 13:15 13:15 WBC (3.8-10.6) k/uL RBC (3.80-5.40) m/uL Hgb (11.4-16.0) gm/dL Hct (34.0-46.0) % MCV (80.0-100.0) fL MCH (25.0-35.0) pg MCHC (31.0-37.0) g/dL RDW (11.5-15.5) % Plt Count (150-450) k/uL PT 14.7 H (9.0-12.0) sec INR 1.6 H (<1.2) APTT 42.0 H (22.0-30.0) sec Sodium (137-145) mmol/L Potassium (3.5-5.1) mmol/L Chloride (98-107) mmol/L Carbon Dioxide (22-30) mmol/L Anion Gap mmol/L BUN (7-17) mg/dL Creatinine (0.52-1.04) mg/dL Est GFR (CKD-EPI)AfAm (>60 ml/min/1.73 sqM) Est GFR (CKD-EPI)NonAf (>60 ml/min/1.73 sqM) Glucose (74-99) mg/dL Calcium (8.4-10.2) mg/dL Magnesium (1.6-2.3) mg/dL Total Bilirubin (0.2-1.3) mg/dL AST (14-36) U/L ALT (9-52) U/L Alkaline Phosphatase (38-126) U/L Total Creatine Kinase (30-135) U/L CK-MB (CK-2) (0.0-2.4) ng/mL CK-MB (CK-2) Rel Index Troponin I (0.000-0.034) ng/mL NT-Pro-B Natriuret Pep 98238 pg/mL Total Protein (6.3-8.2) g/dL Albumin (3.5-5.0) g/dL Disposition Clinical Impression: Acute pulmonary edema, Chronic hip pain Disposition: ADMITTED IP TO THIS HOSP Referrals: Jak Nathan MD [Primary Care Provider] - 1-2 days Time of Disposition: 14:27
[2018-02-10 13:36] LABS: Anisocytosis Slight; Basophils % (A) 0 %; Eosinophils # (A) 0.1 k/uL (0-0.7); Eosinophils % (A) 1 %; HCT 38.2 % (34.0-46.0); HGB 11.8 gm/dL (11.4-16.0); Hypochromasia Moderate; Lymphocytes # (A) 1.3 k/uL (1.0-4.8); Lymphocytes % (A) 14 %; MCH 34.1 pg (25.0-35.0); MCV 110.1 fL (80.0-100.0); Macrocytosis Marked; Mean Platelet Volume 8.4; Monocytes # (A) 0.7 k/uL (0-1.0); Monocytes % (A) 7 %; Neutrophils # (A) 7.2 k/uL (1.3-7.7); Neutrophils % (A) 75 %; Platelet Count 161 k/uL (150-450); RBC 3.47 m/uL (3.80-5.40); RDW 19.3 % (11.5-15.5); WBC 9.5 k/uL (3.8-10.6)
--- NOTE | 2018-02-10 13:40 | XR ---
EXAMINATION TYPE: XR chest 2V DATE OF EXAM: 02/10/2018 HISTORY: difficulty breathing. REFERENCE: Previous study dated 01/13/2018. FINDINGS: Lung volumes are prominent. The heart is enlarged. There is mild vascular congestion and delgado btle interstitial change. This has improved from previous. There is blunting of the posterior costoph renic sulcus on the right on the lateral projection. I could not exclude a small right-sided effusion . IMPRESSION: 1. COPD. 2. CARDIOMEGALY. 3. MILD VASCULAR CONGESTION AND INTERSTITIAL CHANGE, COMPATIBLE WITH MILD CONGESTIVE HEART FAILURE. 4. I CANNOT EXCLUDE A SMALL RIGHT-SIDED EFFUSION.
[2018-02-10 13:44] LABS: INR 1.6 (<1.2); Prothrombin Time 14.7 sec (9.0-12.0)
[2018-02-10 13:56] LABS: Creatine Kinase <20 U/L (30-135)
[2018-02-10 13:57] LABS: Albumin 3.5 g/dL (3.5-5.0); Calcium 9.4 mg/dL (8.4-10.2); Magnesium 2.3 mg/dL (1.6-2.3); Potassium 3.9 mmol/L (3.5-5.1); Total Bilirubin 1.2 mg/dL (0.2-1.3); Total Protein 6.4 g/dL (6.3-8.2)
[2018-02-10 14:09] LABS: Troponin I 0.019 ng/mL (0.000-0.034)
[2018-02-10] MEDS ORDERED: FUROSEMIDE 10 MG/ML 4 ML VIAL IV STA (14:26)
[2018-02-10] MEDS ORDERED: NITROGLYCERIN OINT 1 INCH/GM PACKET TOPICAL STA (14:27)
[2018-02-10 16:27] LABS: Glucose,Whole Blood 128 mg/dL (75-99)
[2018-02-10] MEDS: METOPROLOL TARTRATE 25 MG TAB PO SCH ×2 (16:33→22:51)
[2018-02-10] MEDS: traMADol 50 MG TAB PO SCH ×2 (16:34→22:51)
[2018-02-10] MEDS: LINAGLIPTIN 5 MG TABLET PO SCH (17:48)
[2018-02-10] MEDS: NITROGLYCERIN OINT 1 INCH/GM PACKET TOPICAL SCH ×2 (17:48→20:59)
[2018-02-10] MEDS ORDERED: DORZOLAMIDE HCL 2% DROPS 10 ML BTL BOTH EYES SCH (20:00)
[2018-02-10] MEDS ORDERED: BRIMONIDINE TARTRATE 0.2% DROPS 5 ML BTL BOTH EYES SCH (20:00)
[2018-02-10 20:53] LABS: Glucose,Whole Blood 161 mg/dL (75-99)
[2018-02-10] MEDS: AMMONIUM LACTATE 12% CREAM 140 GM TUBE TOPICAL SCH (20:58)
[2018-02-10] MEDS: DOCUSATE 100 MG CAP PO SCH (20:58)
[2018-02-10] MEDS: VIT A,C & E-LUTEIN-MINERALS 1 EACH TAB PO SCH (20:58)
[2018-02-10] MEDS: FUROSEMIDE 10 MG/ML 4 ML VIAL IV SCH (20:59)
[2018-02-10] MEDS: GARLIC PO SCH (21:00)
[2018-02-10] MEDS: SIMBRINZA BOTH EYES SCH (21:00)
[2018-02-10] MEDS: PSYLLIUM HUSK 100% 6 GM PACKET PO SCH (21:01)
[2018-02-11 05:45] LABS: Glucose,Whole Blood 117 mg/dL (75-99)
[2018-02-11] MEDS: AMMONIUM LACTATE 12% CREAM 140 GM TUBE TOPICAL SCH ×2 (06:21→22:05)
[2018-02-11] MEDS: METOPROLOL TARTRATE 25 MG TAB PO SCH ×3 (06:22→22:07)
[2018-02-11] MEDS: PANTOPRAZOLE 40 MG TABLET PO SCH (06:22)
[2018-02-11] MEDS: SIMBRINZA BOTH EYES SCH ×2 (06:23→22:04)
[2018-02-11] MEDS ORDERED: FUROSEMIDE 20 MG TAB PO SCH (08:00)
[2018-02-11] MEDS: traMADol 50 MG TAB PO SCH ×3 (08:24→22:03)
[2018-02-11] MEDS: CALCITRIOL 0.25 MCG CAP PO SCH (08:24)
[2018-02-11] MEDS: ALLOPURINOL 100 MG TAB PO SCH (08:24)
[2018-02-11] MEDS: FUROSEMIDE 10 MG/ML 4 ML VIAL IV SCH ×2 (08:25→22:06)
[2018-02-11] MEDS: CHOLECALCIFEROL 1,000 UNIT TAB PO SCH (08:25)
[2018-02-11] MEDS: VIT A,C & E-LUTEIN-MINERALS 1 EACH TAB PO SCH ×2 (08:25→22:05)
[2018-02-11] MEDS: ISOSORBIDE MONONITRATE ER 60 MG TAB.ER.24H PO SCH (08:25)
[2018-02-11] MEDS: MAGNESIUM OXIDE 400 MG TAB PO SCH (08:25)
[2018-02-11] MEDS: DOCUSATE 100 MG CAP PO SCH ×2 (08:25→22:08)
[2018-02-11] MEDS: FERROUS SULFATE 325 MG TAB PO SCH (08:25)
[2018-02-11] MEDS: PSYLLIUM HUSK 100% 6 GM PACKET PO SCH ×2 (08:25→22:00)
[2018-02-11] MEDS: RIVAROXABAN 15 MG TAB PO SCH (08:25)
[2018-02-11] MEDS: NITROGLYCERIN OINT 1 INCH/GM PACKET TOPICAL SCH ×4 (08:25→22:00)
[2018-02-11] MEDS: GARLIC PO SCH ×2 (08:26→22:07)
--- NOTE | 2018-02-11 10:47 | P.CRDCN ---
History of Present Illness Consult date: 02/11/18 Chief complaint: Shortness of breath History of present illness: This is a pleasant 83-year-old female patient who sees Dr. 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 The patient just discharged from the hospital recently on new medical regimen and the new diuretics. Since then she has been gaining weight very slowly and she was seen in the office recently by Dr. May who did increase the dose of diuretics and in spite of that the patient continues to gain weight very slowly and over the last 3 days she has been feeling short of breath with exertion and also she did develop bilateral lower extremities edema. No chest pain or chest discomfort. No dizziness or lightheadedness and no syncope. The patient stated that she was compliant with her medications and also she has been compliant with her diet and not having any salt whatsoever. The chest x-ray showed findings consistent with CHF. The BNP came in to be elevated as well. The EKG showed A. fib with controlled heart rate. Clearly on physical examination she does have crackles in both lung devlin and also she does have bilateral lower extremities edema worse on the right side probably because of the history of DVT in the right leg. The creatinine is 1.90 which is her baseline. The patient seems to be clinically in overt congestive heart failure. I will continue the Lasix IV and DC the Lasix by mouth. Continue monitor the kidney function and electrolytes and follow-up with the patient. Past Medical History Past Medical History: Atrial Fibrillation, Coronary Artery Disease (CAD), Cancer , Heart Failure, Diabetes Mellitus, Deep Vein Thrombosis (DVT), Eye Disorder, GERD/Reflux, Hypertension, Renal Disease Additional Past Medical History / Comment(s): Macular Degeneration, gallstones, stage 3 kidney failure, hx Uterine & groin CA; WEARS BILAT THIGH HIGH HOSE, uses cane or walker, patient states she has "2 blood clots in right groin since 2003" family states now clot is "through the whole leg" CHF History of Any Multi-Drug Resistant Organisms: ESBL, VRE Date of last positivie culture/infection: 01/13/16 MDRO Source:: urine, E.coli, VRE 09/29/13 Past Surgical History: Appendectomy, Bowel Resection, Hysterectomy, Joint Replacement Additional Past Surgical History / Comment(s): gastrointestinal surgery for bowel obstruction. left hip replacement, rt breast biopsy, darcy filter rt leg, Past Anesthesia/Blood Transfusion Reactions: No Reported Reaction Past Psychological History: No Psychological Hx Reported Smoking Status: Former smoker Past Alcohol Use History: None Reported Additional Past Alcohol Use History / Comment(s): smoked 1 pkg from 1961 to 1971 Past Drug Use History: None Reported - Past Family History Mother Family Medical History: No Reported History Medications and Allergies Home Medications Medication Instructions Recorded Confirmed Type Allopurinol [Zyloprim] 200 mg PO DAILY@0801/22/14 02/10/18 History Linagliptin [Tradjenta] 5 mg PO DAILY@1500 01/22/14 02/10/18 History Omeprazole [PriLOSEC] 20 mg PO DAILY@69901/22/14 02/10/18 History Rivaroxaban [Xarelto] 15 mg PO DAILY@79901/22/14 02/10/18 History Docusate Sodium [Stool Softener] 100 mg PO BID@02/22/14 02/10/18 History Garlic 1 tab PO BID@02/22/14 02/10/18 History Calcitriol 0.25 mcg PO SUTUTHSA@79908/22/14 02/10/18 History Magnesium Oxide [Mag-Ox] 400 mg PO DAILY@79901/13/16 02/10/18 History traMADol HCL [Ultram] 50 mg PO TID@,,01/13/16 02/10/18 History Brinzolamide/Brimonidine Tart 1 drop BOTH EYES BID@05/11/17 02/10/18 History [Simbrinza 1%-0.2% Eye Drops] Vit C/E/Zn/Coppr/Lutein/Zeaxan 1 cap PO BID@12/03/17 02/10/18 History [Preservision Areds 2 Softgel] Ferrous Sulfate [Feosol] 325 mg PO DAILY@79901/11/18 02/10/18 History Ammonium Lactate Cream [Lac-Hydrin 1 applic TOPICAL BID@02/10/18 02/10/18 History 12% Cream] Cholecalciferol (Vitamin D3) 2,000 unit PO DAILY@79902/10/18 02/10/18 History [Vitamin D3] Isosorbide Mononitrate ER [Imdur] 60 mg PO DAILY@79902/10/18 02/10/18 History Metoprolol Tartrate [Lopressor] 25 mg PO TID@,,02/10/18 02/10/18 History Torsemide 10 mg PO DAILY@79902/10/18 02/10/18 History Wheat Dextrin [Benefiber] 1 packet PO BID@02/10/18 02/10/18 History Allergies Allergy/AdvReac Type Severity Reaction Status Date / Time atorvastatin calcium Allergy Unknown Verified 02/10/18 12:58 [From Lipitor] codeine Allergy Unknown Verified 02/10/18 12:58 [From Tylenol-Codeine #3] hydrocodone Allergy Vomiting Verified 02/10/18 12:58 Physical Exam Vitals: Vital Signs Temp Pulse Pulse Resp BP BP Pulse Ox 02/11/18 08:20 96.8 F L 90 18 98/68 96 02/11/18 08:18 93 L 02/11/18 02:16 97.1 F L 100 17 100/63 97 02/10/18 23:49 97.0 F L 105 H 18 115/61 98 02/10/18 20:00 97.0 F L 87 17 104/61 95 02/10/18 15:10 96 F L 95 18 113/77 99 02/10/18 15:05 97.8 F 98 16 116/78 98 02/10/18 14:34 97.8 F 93 16 117/72 96 02/10/18 14:27 96 02/10/18 13:19 84 20 110/70 100 02/10/18 12:31 97.5 F L 98 18 125/83 100 Intake and Output 02/10/18 02/11/18 02/11/18 22:59 06:59 14:59 Output Total 400 Balance -400 Output: Urine 400 Other: Voiding Method Toilet Toilet # Voids 1 Weight 81.9 kg - Constitutional General appearance: no acute distress - Respiratory Respiratory: bilateral: diminished, rales - Cardiovascular Rhythm: irregularly irregular Heart sounds: normal: S1, S2 Abnormal Heart Sounds: systolic murmur Results 02/10/18 13:15 02/10/18 13:15 Cardiac Enzymes 02/10/18 02/10/18 Range/Units 13:15 13:15 AST 23 (14-36) U/L CK-MB (CK-2) 1.0 (0.0-2.4) ng/mL Troponin I 0.019 (0.000-0.034) ng/mL Coagulation 02/10/18 Range/Units 13:15 PT 14.7 H (9.0-12.0) sec APTT 42.0 H (22.0-30.0) sec CBC 02/10/18 Range/Units 13:15 WBC 9.5 (3.8-10.6) k/uL RBC 3.47 L (3.80-5.40) m/uL Hgb 11.8 (11.4-16.0) gm/dL Hct 38.2 (34.0-46.0) % Plt Count 161 (150-450) k/uL Comprehensive Metabolic Panel 02/10/18 Range/Units 13:15 Sodium 137 (137-145) mmol/L Potassium 3.9 (3.5-5.1) mmol/L Chloride 102 (98-107) mmol/L Carbon Dioxide 22 (22-30) mmol/L BUN 51 H (7-17) mg/dL Creatinine 1.90 H (0.52-1.04) mg/dL Glucose 128 H (74-99) mg/dL Calcium 9.4 (8.4-10.2) mg/dL AST 23 (14-36) U/L ALT 25 (9-52) U/L Alkaline Phosphatase 80 (38-126) U/L Total Protein 6.4 (6.3-8.2) g/dL Albumin 3.5 (3.5-5.0) g/dL Current Medications Generic Name Dose Route Start Last Admin Trade Name Freq PRN Reason Stop Dose Admin Allopurinol 200 mg 02/11/18 08:00 02/11/18 08:24 Zyloprim PO 200 mg DAILY@0800 [facility] Administration Calcitriol 0.25 mcg 02/11/18 08:00 02/11/18 08:24 Rocaltrol PO 0.25 mcg SUTUTHSA@0800 [facility] Administration Cholecalciferol 2,000 unit 02/11/18 08:00 02/11/18 08:25 Vitamin D3 PO 2,000 unit DAILY@08 [facility] Administration Docusate Sodium 100 mg 02/10/18 20:00 02/11/18 08:25 Colace PO 100 mg BID@ [facility] Administration Ferrous Sulfate 325 mg 02/11/18 08:00 02/11/18 08:25 Feosol PO 325 mg DAILY@08 [facility] Administration Furosemide 40 mg 02/10/18 21:00 02/11/18 08:25 Lasix IV 40 mg Q12HR [facility] Administration Furosemide 20 mg 02/11/18 08:00 02/11/18 08:26 Lasix PO Not Given DAILY@08 [facility] Isosorbide Mononitrate 60 mg 02/11/18 08:00 02/11/18 08:25 Imdur PO 60 mg DAILY@08 [facility] Administration Lactic Acid 1 applic 02/10/18 20:00 02/11/18 06:21 Ammonium Lactate TOPICAL 1 applic BID@ [facility] Administration Linagliptin 5 mg 02/10/18 16:35 02/10/18 17:48 Tradjenta PO 5 mg DAILY@1500 [facility] Administration Magnesium Oxide 400 mg 02/11/18 08:00 02/11/18 08:25 Mag-Ox PO 400 mg DAILY@08 [facility] Administration Metoprolol Tartrate 25 mg 02/10/18 16:07 02/11/18 06:22 Lopressor PO 25 mg TID@ [facility] Administration Multivitamins/Minerals 1 each 02/10/18 20:00 02/11/18 08:25 Ivite PO 1 each BID@ [facility] Administration Nitroglycerin 1 inch 02/10/18 18:00 02/11/18 08:25 Nitro-Bid Oint TOPICAL 1 inch QID [facility] Administration Garlic 1 tab 02/10/18 20:00 02/11/18 08:26 PO Not Given BID@09,20 [facility] Simbrinza Ophth 1 each 02/10/18 20:00 02/11/18 06:23 BOTH EYES 1 each BID@699,1999 [facility] Administration Pantoprazole Sodium 40 mg 02/11/18 07:00 02/11/18 06:22 Protonix PO 40 mg DAILY@0700 [facility] Administration Psyllium Hydrophilic Mucilloid 6 gm 02/10/18 20:00 02/11/18 08:25 Metamucil PO 6 gm BID@08,20 [facility] Administration Rivaroxaban 15 mg 02/11/18 08:00 02/11/18 08:25 Xarelto PO 15 mg DAILY@0800 [facility] Administration Tramadol HCl 50 mg 02/10/18 16:07 02/11/18 08:24 Ultram PO 50 mg TID@08,16,23 [facility] Administration Intake and Output 02/10/18 02/11/18 02/11/18 22:59 06:59 14:59 Output Total 400 Balance -400 Output: Urine 400 Other: Voiding Method Toilet Toilet # Voids 1 Weight 81.9 kg 02/10/18 13:15 02/10/18 13:15 Assessment and Plan Assessment: Assessment #1 congestive heart failure exacerbation secondary to systolic dysfunction #2 chronic atrial fibrillation was controlled heart rate #3 history of right leg DVT #4 moderate to severe mitral regurgitation #5 mild aortic stenosis #6 cardiomyopathy with an EF around 40%. Plan #1 I would continue the Lasix IV for at least additional 24 hours #2 monitor the kidney function and electrolytes giving the patient known chronic kidney disease. Her creatinine on admission is a baseline #3 monitor the input and output and weight daily #4 follow-up with the patient.
[2018-02-11 11:32] LABS: Glucose,Whole Blood 118 mg/dL (75-99)
--- NOTE | 2018-02-11 13:10 | P.HPIM ---
History of Present Illness H&P Date: 02/11/18 Chief Complaint: Worsening shortness of breath Trina Carrillo is an 83-year-old female who presented to [facility] emergency room with a chief complaint of worsening shortness of breath patient has a known history of congestive heart failure was cardiomyopathy she also has a known history of chronic kidney disease she was last admitted to [facility] 3 weeks ago, she has been following was Dr. May switchgear repairer and Dr. Escobar ranch rider as outpatient, she states that recently Lasix was discontinued and patient was started on torsemide 10 mg by mouth daily she states that her weight has been going up gradually, she gained 19 pounds in the last 3 weeks, she started having worsening shortness of breath, and eventually her family decided to bring her back to emergency room. She has a known history of atrial fibrillation with controlled heart rate, she is maintained on Xarelto 15 mg daily for stroke prevention, her last echocardiogram was done on 12/04/2017 and revealed an ejection fraction of 40-45 %. Past Medical History Past Medical History: Atrial Fibrillation, Coronary Artery Disease (CAD), Cancer , Heart Failure, Diabetes Mellitus, Deep Vein Thrombosis (DVT), Eye Disorder, GERD/Reflux, Hypertension, Renal Disease Additional Past Medical History / Comment(s): Macular Degeneration, gallstones, stage 3 kidney failure, hx Uterine & groin CA; WEARS BILAT THIGH HIGH HOSE, uses cane or walker, patient states she has "2 blood clots in right groin since 2003" family states now clot is "through the whole leg" CHF History of Any Multi-Drug Resistant Organisms: ESBL, VRE Date of last positivie culture/infection: 01/13/16 MDRO Source:: urine, E.coli, VRE 09/29/13 Past Surgical History: Appendectomy, Bowel Resection, Hysterectomy, Joint Replacement Additional Past Surgical History / Comment(s): gastrointestinal surgery for bowel obstruction. left hip replacement, rt breast biopsy, darcy filter rt leg, Past Anesthesia/Blood Transfusion Reactions: No Reported Reaction Past Psychological History: No Psychological Hx Reported Smoking Status: Former smoker Past Alcohol Use History: None Reported Additional Past Alcohol Use History / Comment(s): smoked 1 pkg from 1962 to 1971 Past Drug Use History: None Reported - Past Family History Mother Family Medical History: No Reported History Medications and Allergies Home Medications Medication Instructions Recorded Confirmed Type Allopurinol [Zyloprim] 200 mg PO DAILY@79901/22/14 02/10/18 History Linagliptin [Tradjenta] 5 mg PO DAILY@149901/22/14 02/10/18 History Omeprazole [PriLOSEC] 20 mg PO DAILY@69901/22/14 02/10/18 History Rivaroxaban [Xarelto] 15 mg PO DAILY@79901/22/14 02/10/18 History Docusate Sodium [Stool Softener] 100 mg PO BID@02/22/14 02/10/18 History Garlic 1 tab PO BID@02/22/14 02/10/18 History Calcitriol 0.25 mcg PO SUTUTHSA@79908/22/14 02/10/18 History Magnesium Oxide [Mag-Ox] 400 mg PO DAILY@79901/13/16 02/10/18 History traMADol HCL [Ultram] 50 mg PO TID@,,01/13/16 02/10/18 History Brinzolamide/Brimonidine Tart 1 drop BOTH EYES BID@05/11/17 02/10/18 History [Simbrinza 1%-0.2% Eye Drops] Vit C/E/Zn/Coppr/Lutein/Zeaxan 1 cap PO BID@12/03/17 02/10/18 History [Preservision Areds 2 Softgel] Ferrous Sulfate [Feosol] 325 mg PO DAILY@79901/11/18 02/10/18 History Ammonium Lactate Cream [Lac-Hydrin 1 applic TOPICAL BID@02/10/18 02/10/18 History 12% Cream] Cholecalciferol (Vitamin D3) 2,000 unit PO DAILY@79902/10/18 02/10/18 History [Vitamin D3] Isosorbide Mononitrate ER [Imdur] 60 mg PO DAILY@79902/10/18 02/10/18 History Metoprolol Tartrate [Lopressor] 25 mg PO TID@,,02/10/18 02/10/18 History Torsemide 10 mg PO DAILY@79902/10/18 02/10/18 History Wheat Dextrin [Benefiber] 1 packet PO BID@08,20 02/10/18 02/10/18 History Allergies Allergy/AdvReac Type Severity Reaction Status Date / Time atorvastatin calcium Allergy Unknown Verified 02/10/18 12:58 [From Lipitor] codeine Allergy Unknown Verified 02/10/18 12:58 [From Tylenol-Codeine #3] hydrocodone Allergy Vomiting Verified 02/10/18 12:58 Physical Exam Vitals: Vital Signs Temp Pulse Pulse Resp BP BP Pulse Ox 02/11/18 11:50 90 16 114/65 96 02/11/18 08:20 96.8 F L 90 18 98/68 96 02/11/18 08:18 93 L 02/11/18 02:16 97.1 F L 100 17 100/63 97 02/10/18 23:49 97.0 F L 105 H 18 115/61 98 02/10/18 20:00 97.0 F L 87 17 104/61 95 02/10/18 15:10 96 F L 95 18 113/77 99 02/10/18 15:05 97.8 F 98 16 116/78 98 02/10/18 14:34 97.8 F 93 16 117/72 96 02/10/18 14:27 96 02/10/18 13:19 84 20 110/70 100 Intake and Output 02/10/18 02/11/18 02/11/18 22:59 06:59 14:59 Intake Total 360 Output Total 400 Balance -400 360 Intake: Oral 360 Output: Urine 400 Other: Voiding Method Toilet Toilet # Voids 1 Weight 81.9 kg In general patient is alert and oriented 3 in no apparent distress HEENT head normocephalic and atraumatic Neck is supple no JVD no goiter no lymphadenopathy Chest exam reveals a few scattered crackles no wheezing Cardiac exam reveals irregular heart sounds no gallops no murmurs Abdomen is soft nontender no organomegaly with normal bowel sounds Extremity exam reveals 3+ edema no cyanosis or clubbing Neurological examination reveals no gross focal deficit Results CBC & Chem 7: 02/10/18 13:15 02/10/18 13:15 Labs: Abnormal Lab Results - Last 24 Hours (Table) 02/10/18 02/10/18 02/10/18 Range/Units 13:15 13:15 13:15 RBC 3.47 L (3.80-5.40) m/uL MCV 110.1 H (80.0-100.0) fL RDW 19.3 H (11.5-15.5) % PT (9.0-12.0) sec INR (<1.2) APTT (22.0-30.0) sec BUN 51 H (7-17) mg/dL Creatinine 1.90 H (0.52-1.04) mg/dL Glucose 128 H (74-99) mg/dL POC Glucose (mg/dL) (75-99) mg/dL Total Creatine Kinase <20 L (30-135) U/L 02/10/18 02/10/18 02/10/18 Range/Units 13:15 16:25 20:42 RBC (3.80-5.40) m/uL MCV (80.0-100.0) fL RDW (11.5-15.5) % PT 14.7 H (9.0-12.0) sec INR 1.6 H (<1.2) APTT 42.0 H (22.0-30.0) sec BUN (7-17) mg/dL Creatinine (0.52-1.04) mg/dL Glucose (74-99) mg/dL POC Glucose (mg/dL) 128 H 161 H (75-99) mg/dL Total Creatine Kinase (30-135) U/L 02/11/18 02/11/18 Range/Units 05:41 11:29 RBC (3.80-5.40) m/uL MCV (80.0-100.0) fL RDW (11.5-15.5) % PT (9.0-12.0) sec INR (<1.2) APTT (22.0-30.0) sec BUN (7-17) mg/dL Creatinine (0.52-1.04) mg/dL Glucose (74-99) mg/dL POC Glucose (mg/dL) 117 H 118 H (75-99) mg/dL Total Creatine Kinase (30-135) U/L Thrombosis Risk Factor Assmnt - Choose All That Apply Any of the Below Risk Factors Present?: Yes Each Factor Represents 1 point: Swollen legs (current) Other Risk Factors: No Each Risk Factor Represents 3 Points: Age 75 years or older Other congenital or acquired thrombophilia - If yes, enter type in comment: No Thrombosis Risk Factor Assessment Total Risk Factor Score: 4 Thrombosis Risk Factor Assessment Level: Moderate Risk Assessment and Plan Plan: #1 acute exacerbation of systolic congestive heart failure #2 underlying history of cardiomyopathy with decreased ejection fraction to 40- 45% #3 underlying history of atrial fibrillation heart rate is well-controlled #4 underlying history of moderate to severe mitral regurgitation #5 underlying history of chronic kidney disease #6 underlying history of hypertension #7 underlying history of diabetes mellitus, will check hemoglobin A1c to assess control #8 underlying history of gout #9 underlying history of chronic back pain At this time patient is admitted to telemetry floor cardiology consultation is requested We'll add nephrology consultation patient is well known to Dr. Escobar Continue with IV Lasix at this time and monitor input and output and daily weight For DVT prophylaxis patient is on Xarelto, for GI prophylaxis patient on pantoprazole
[2018-02-11] MEDS ORDERED: LINAGLIPTIN 5 MG TABLET PO SCH (15:00)
[2018-02-11] MEDS: LINAGLIPTIN 5 MG TABLET PO SCH (15:05)
[2018-02-11 16:25] LABS: Glucose,Whole Blood 119 mg/dL (75-99)
[2018-02-11 21:19] LABS: Glucose,Whole Blood 146 mg/dL (75-99)
[2018-02-12 06:05] LABS: Glucose,Whole Blood 124 mg/dL (75-99)
[2018-02-12 06:24] LABS: Anisocytosis Slight; Basophils % (A) 0 %; Eosinophils # (A) 0.1 k/uL (0-0.7); Eosinophils % (A) 2 %; HCT 34.4 % (34.0-46.0); HGB 10.6 gm/dL (11.4-16.0); Hypochromasia Moderate; Lymphocytes # (A) 1.1 k/uL (1.0-4.8); Lymphocytes % (A) 17 %; MCH 32.9 pg (25.0-35.0); MCHC 30.7 g/dL (31.0-37.0); MCV 107.1 fL (80.0-100.0); Mean Platelet Volume 8.7; Monocytes # (A) 0.4 k/uL (0-1.0); Monocytes % (A) 6 %; Neutrophils # (A) 4.7 k/uL (1.3-7.7); Neutrophils % (A) 73 %; Platelet Count 138 k/uL (150-450); RBC 3.21 m/uL (3.80-5.40); RDW 18.5 % (11.5-15.5); WBC 6.5 k/uL (3.8-10.6)
[2018-02-12] MEDS: SIMBRINZA BOTH EYES SCH ×2 (06:24→21:12)
[2018-02-12] MEDS: AMMONIUM LACTATE 12% CREAM 140 GM TUBE TOPICAL SCH ×2 (06:24→21:06)
[2018-02-12] MEDS: METOPROLOL TARTRATE 25 MG TAB PO SCH ×3 (06:25→22:15)
[2018-02-12] MEDS: PANTOPRAZOLE 40 MG TABLET PO SCH (06:26)
[2018-02-12 06:29] LABS: Macrocytosis A
[2018-02-12 06:33] LABS: Albumin 3.2 g/dL (3.5-5.0); Calcium 9.3 mg/dL (8.4-10.2); Potassium 3.6 mmol/L (3.5-5.1); Total Bilirubin 0.7 mg/dL (0.2-1.3); Total Protein 5.8 g/dL (6.3-8.2)
[2018-02-12] MEDS: CHOLECALCIFEROL 1,000 UNIT TAB PO SCH (08:42)
[2018-02-12] MEDS: ALLOPURINOL 100 MG TAB PO SCH (08:42)
[2018-02-12] MEDS: traMADol 50 MG TAB PO SCH ×3 (08:42→22:14)
[2018-02-12] MEDS: FERROUS SULFATE 325 MG TAB PO SCH (08:42)
[2018-02-12] MEDS: VIT A,C & E-LUTEIN-MINERALS 1 EACH TAB PO SCH ×2 (08:43→21:12)
[2018-02-12] MEDS: RIVAROXABAN 15 MG TAB PO SCH (08:43)
[2018-02-12] MEDS: ISOSORBIDE MONONITRATE ER 60 MG TAB.ER.24H PO SCH (08:43)
[2018-02-12] MEDS: DOCUSATE 100 MG CAP PO SCH ×2 (08:43→21:11)
[2018-02-12] MEDS: PSYLLIUM HUSK 100% 6 GM PACKET PO SCH ×3 (08:43→21:10)
[2018-02-12] MEDS: MAGNESIUM OXIDE 400 MG TAB PO SCH (08:43)
[2018-02-12] MEDS: FUROSEMIDE 10 MG/ML 4 ML VIAL IV SCH (08:44)
[2018-02-12] MEDS: NITROGLYCERIN OINT 1 INCH/GM PACKET TOPICAL SCH ×2 (08:45→12:54)
[2018-02-12] MEDS: GARLIC PO SCH ×2 (08:45→21:10)
--- NOTE | 2018-02-12 10:12 | P.PN ---
Subjective Progress Note Date: 02/12/18 Trina Carrillo is an 83-year-old female who presented to [facility] emergency room with a chief complaint of worsening shortness of breath patient has a known history of congestive heart failure was cardiomyopathy she also has a known history of chronic kidney disease she was last admitted to [facility] 3 weeks ago, she has been following was Dr. May tongsman and Dr. Escobar home care consultant as outpatient, she states that recently Lasix was discontinued and patient was started on torsemide 10 mg by mouth daily she states that her weight has been going up gradually, she gained 19 pounds in the last 3 weeks, she started having worsening shortness of breath, and eventually her family decided to bring her back to emergency room. She has a known history of atrial fibrillation with controlled heart rate, she is maintained on Xarelto 15 mg daily for stroke prevention, her last echocardiogram was done on 12/04/2017 and revealed an ejection fraction of 40-45 %. 02/12/2018 patient still having lower extremity edema and shortness of breath with activity. Nephrology is consulted, patient follows with Dr. Bernal outpatient and is known to her. Patient denies any chest pain. Denies any nausea or vomiting. Denies any bowel movement changes or urinary symptoms. Patient does reports that she feels she should be urinating more often than she has with the IV Lasix Objective - Vital Signs Vital signs: Vital Signs Temp 97.2 F L 02/12/18 06:28 Pulse 88 02/12/18 06:28 Resp 16 02/12/18 06:28 BP 117/67 02/12/18 06:28 Pulse Ox 95 02/12/18 06:28 Intake & Output 02/11/18 02/12/18 02/12/18 18:59 06:59 18:59 Intake Total 600 240 Output Total 200 250 Balance 400 -250 240 Weight 81.9 kg Intake: Oral 600 240 Output: Urine 200 250 Other: Voiding Method Toilet # Voids 1 1 - Exam Head normocephalic Neck supple Lungs diminished in the bases bilaterally Heart regular rate and rhythm S1-S2, no rub or gallop Abdomen is soft nontender nondistended positive bowel sounds no hepatosplenomegaly Extremities +1 to +2 pitting edema bilaterally Neuro alert and orientated to 3 - Labs CBC & Chem 7: 02/12/18 05:38 02/12/18 05:38 Labs: Abnormal Lab Results - Last 24 Hours (Table) 02/11/18 02/11/18 02/11/18 Range/Units 11:29 16:23 21:17 RBC (3.80-5.40) m/uL Hgb (11.4-16.0) gm/dL MCV (80.0-100.0) fL MCHC (31.0-37.0) g/dL RDW (11.5-15.5) % Plt Count (150-450) k/uL Carbon Dioxide (22-30) mmol/L BUN (7-17) mg/dL Creatinine (0.52-1.04) mg/dL Glucose (74-99) mg/dL POC Glucose (mg/dL) 118 H 119 H 146 H (75-99) mg/dL Total Protein (6.3-8.2) g/dL Albumin (3.5-5.0) g/dL HDL Cholesterol (40-60) mg/dL 02/12/18 02/12/18 02/12/18 Range/Units 05:38 05:38 06:04 RBC 3.21 L (3.80-5.40) m/uL Hgb 10.6 L (11.4-16.0) gm/dL MCV 107.1 H (80.0-100.0) fL MCHC 30.7 L (31.0-37.0) g/dL RDW 18.5 H (11.5-15.5) % Plt Count 138 L (150-450) k/uL Carbon Dioxide 21 L (22-30) mmol/L BUN 55 H (7-17) mg/dL Creatinine 1.80 H (0.52-1.04) mg/dL Glucose 113 H (74-99) mg/dL POC Glucose (mg/dL) 124 H (75-99) mg/dL Total Protein 5.8 L (6.3-8.2) g/dL Albumin 3.2 L (3.5-5.0) g/dL HDL Cholesterol 30 L (40-60) mg/dL Assessment and Plan Assessment: #1 acute on chronic systolic congestive heart failure exacerbation: Currently on IV Lasix 40 mg every 12 hours. Cardiology and nephrology following. Continue to monitor daily weights and I's and O's #2 underlying history of cardiomyopathy with decreased ejection fraction to 40- 45% #3 underlying history of atrial fibrillation heart rate is well-controlled #4 underlying history of moderate to severe mitral regurgitation #5 underlying history of chronic kidney disease #6 underlying history of hypertension #7 underlying history of diabetes mellitus, will check hemoglobin A1c to assess control #8 underlying history of gout #9 underlying history of chronic back pain For DVT prophylaxis patient is on Xarelto, for GI prophylaxis patient on pantoprazole I performed an examination of the patient and discussed their management with the physician Roast Master. I have reviewed the Physician Roast Master's notes and agree with the documented findings and plan of care
--- NOTE | 2018-02-12 10:12 | P.PN ---
Subjective Progress Note Date: 02/12/18 Principal diagnosis: CHF secondary to systolic dysfunction This is a pleasant 83-year-old female patient who sees Dr. 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 The patient just discharged from the hospital recently on new medical regimen and the new diuretics. Since then she has been gaining weight very slowly and she was seen in the office recently by Dr. May who did increase the dose of diuretics and in spite of that the patient continues to gain weight very slowly and over the last 3 days she has been feeling short of breath with exertion and also she did develop bilateral lower extremities edema. No chest pain or chest discomfort. No dizziness or lightheadedness and no syncope. The patient stated that she was compliant with her medications and also she has been compliant with her diet and not having any salt whatsoever. The chest x-ray showed findings consistent with CHF. The BNP came in to be elevated as well. The EKG showed A. fib with controlled heart rate. Clearly on physical examination she does have crackles in both lung devlin and also she does have bilateral lower extremities edema worse on the right side probably because of the history of DVT in the right leg. The creatinine is 1.90 which is her baseline. On follow-up with the patient today, she stated that the shortness of breath is better. She still have severe bilateral lower extremities edema which seems to be pitting edema and worse on the right side. She is on Lasix at 40 mg IV twice a day. The creatinine seems to be slightly better today. The nephrology service is on the case and there is a possibility that she might need to be started on Lasix drip. Objective - Vital Signs Vital signs: Vital Signs Temp 97.2 F L 02/12/18 06:28 Pulse 88 02/12/18 06:28 Resp 16 02/12/18 06:28 BP 117/67 02/12/18 06:28 Pulse Ox 95 02/12/18 06:28 Intake & Output 02/11/18 02/12/18 02/12/18 18:59 06:59 18:59 Intake Total 600 240 Output Total 200 250 Balance 400 -250 240 Weight 81.9 kg Intake: Oral 600 240 Output: Urine 200 250 Other: Voiding Method Toilet # Voids 1 1 - Constitutional General appearance: Present: no acute distress - Respiratory Respiratory: bilateral: CTA - Cardiovascular Heart sounds: normal: S1, S2 Abnormal Heart Sounds: Present: systolic murmur - Labs CBC & Chem 7: 02/12/18 05:38 02/12/18 05:38 Labs: Abnormal Lab Results - Last 24 Hours (Table) 02/11/18 02/11/18 02/11/18 Range/Units 11:29 16:23 21:17 RBC (3.80-5.40) m/uL Hgb (11.4-16.0) gm/dL MCV (80.0-100.0) fL MCHC (31.0-37.0) g/dL RDW (11.5-15.5) % Plt Count (150-450) k/uL Carbon Dioxide (22-30) mmol/L BUN (7-17) mg/dL Creatinine (0.52-1.04) mg/dL Glucose (74-99) mg/dL POC Glucose (mg/dL) 118 H 119 H 146 H (75-99) mg/dL Total Protein (6.3-8.2) g/dL Albumin (3.5-5.0) g/dL HDL Cholesterol (40-60) mg/dL 02/12/18 02/12/18 02/12/18 Range/Units 05:38 05:38 06:04 RBC 3.21 L (3.80-5.40) m/uL Hgb 10.6 L (11.4-16.0) gm/dL MCV 107.1 H (80.0-100.0) fL MCHC 30.7 L (31.0-37.0) g/dL RDW 18.5 H (11.5-15.5) % Plt Count 138 L (150-450) k/uL Carbon Dioxide 21 L (22-30) mmol/L BUN 55 H (7-17) mg/dL Creatinine 1.80 H (0.52-1.04) mg/dL Glucose 113 H (74-99) mg/dL POC Glucose (mg/dL) 124 H (75-99) mg/dL Total Protein 5.8 L (6.3-8.2) g/dL Albumin 3.2 L (3.5-5.0) g/dL HDL Cholesterol 30 L (40-60) mg/dL Assessment and Plan Assessment: Assessment #1 congestive heart failure exacerbation secondary to systolic dysfunction #2 chronic atrial fibrillation was controlled heart rate #3 history of right leg DVT #4 moderate to severe mitral regurgitation #5 mild aortic stenosis #6 cardiomyopathy with an EF around 40%. Plan #1 continue the Lasix IV #2 monitor the kidney function and electrolytes giving the patient known chronic kidney disease. Her creatinine on admission is a baseline #3 monitor the input and output and weight daily #4 follow-up with the patient.
[2018-02-12 11:55] LABS: Glucose,Whole Blood 124 mg/dL (75-99)
[2018-02-12] MEDS ORDERED: FUROSEMIDE 10 MG/ML 10 ML VIAL IV SCH (12:00)
[2018-02-12] MEDS: FUROSEMIDE 250 MG in SODIUM CHLORIDE 0.9% 225 ML IVP SCH (13:30)
[2018-02-12 15:44] LABS: Hemoglobin A1C 7.1 % (4.0-6.0)
[2018-02-12] MEDS: LINAGLIPTIN 5 MG TABLET PO SCH (15:53)
[2018-02-12 17:16] LABS: Glucose,Whole Blood 151 mg/dL (75-99)
[2018-02-12 20:49] LABS: Glucose,Whole Blood 156 mg/dL (75-99)
--- NOTE | 2018-02-12 21:06 | CONS ---
CONSULTATION REASON FOR CONSULT: Renal failure. HISTORY OF PRESENT ILLNESS: Patient is an 83-year-old female with history of chronic kidney disease and NKF stage IV with baseline creatinine about 1.82 mg/dL secondary to nephrosclerosis. The patient was admitted to the hospital with increasing weight gain and shortness of breath. She was recently discharged from the hospital in the beginning of January after hospitalization for a similar complaint of fluid overload. According to the family the patient's weight steadily climbed after she was discharged and she felt significantly short of breath yesterday and came in. There was no complaints of chest pain, fever, chills, or cough. The patient does have underlying cardiomyopathy with ejection fraction of 40% to 45%. She is currently maintained on Lasix 40 mg IV q.12 hours. The patient states she has not been losing much weight. PAST MEDICAL HISTORY: CKD stage IV, cardiomyopathy, previous history of CHF, ejection fraction 40 to 45%, coronary artery disease, type 2 diabetes, gastroesophageal reflux disease, hypertension, DVT, macular degeneration, gallstones, chronic lower extremity edema. History of VRE, ESBL E coli. PAST SURGICAL HISTORY: Appendectomy, bowel resection for bowel obstruction. Hysterectomy, right breast biopsy, left hip arthroplasty, Toyin filter placement. SOCIAL HISTORY: Patient is a former smoker. No history of drug abuse or alcohol abuse. MEDICATIONS: Medications at home included Zyloprim, Tradjenta, Prilosec, Xarelto, iron, Imdur, vitamin D3, Lopressor, torsemide. ALLERGIES: Include LIPITOR, CODEINE. EXAMINATION: Patient is currently comfortable, awake. She is not in any acute distress. She is alert and oriented x3. Blood pressure this morning was 121/60, heart rate of 95 per minute. Patient is afebrile. Examination of the heart: S1, S2. Examination lungs: Bilateral breath sounds are heard. Decreased breath sounds bases. Abdomen is soft, nontender. Examination of lower extremities shows edema 2+ bilaterally. SANDBLAST CARVER exam is grossly intact. LAB: Shows sodium 139, potassium 3.6, chloride 104, BUN 55, serum creatinine 1.8, hemoglobin 10.6 g/dL. ASSESSMENT: 1. 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 Renal function close to baseline. 2. Fluid overload and congestive heart failure. Will start patient on Lasix drip. I will increase the Lasix to 60 mg q.8 hours and if she does not respond by this afternoon, we will switch her to an IV Lasix drip. The patient will be discharged on higher dose of torsemide this time along with Zaroxolyn as well. 3. Cardiomyopathy, ejection fraction 40 to 45%. 4. Congestive heart failure, acute on top of chronic systolic. 5. Anemia of chronic disease. PLAN: Increase diuretics, will likely be switched to Lasix drip if the patient does not respond by this afternoon. Upon discharge, patient will need higher dose of Demadex along with Zaroxolyn. Thank you for this consultation. We will continue to follow the patient with you during her hospitalization. MMROMINAL / IJN: [id number] /
[2018-02-13] MEDS: AMMONIUM LACTATE 12% CREAM 140 GM TUBE TOPICAL SCH ×2 (06:03→21:22)
[2018-02-13 06:04] LABS: Glucose,Whole Blood 121 mg/dL (75-99)
[2018-02-13] MEDS: PANTOPRAZOLE 40 MG TABLET PO SCH (06:05)
[2018-02-13] MEDS: METOPROLOL TARTRATE 25 MG TAB PO SCH ×3 (06:05→22:00)
[2018-02-13] MEDS: SIMBRINZA BOTH EYES SCH ×2 (06:05→22:00)
[2018-02-13 06:44] LABS: Anisocytosis Slight; Basophils % (A) 0 %; Eosinophils # (A) 0.1 k/uL (0-0.7); Eosinophils % (A) 2 %; HCT 35.1 % (34.0-46.0); HGB 11.2 gm/dL (11.4-16.0); Hypochromasia Slight; Lymphocytes # (A) 1.1 k/uL (1.0-4.8); Lymphocytes % (A) 15 %; MCH 34.2 pg (25.0-35.0); MCHC 31.9 g/dL (31.0-37.0); MCV 107.3 fL (80.0-100.0); Monocytes # (A) 0.4 k/uL (0-1.0); Monocytes % (A) 6 %; Neutrophils # (A) 5.4 k/uL (1.3-7.7); Neutrophils % (A) 75 %; Platelet Count 149 k/uL (150-450); RBC 3.27 m/uL (3.80-5.40); RDW 19.3 % (11.5-15.5); WBC 7.2 k/uL (3.8-10.6)
[2018-02-13 06:46] LABS: Macrocytosis Marked
[2018-02-13 07:20] LABS: Calcium 9.3 mg/dL (8.4-10.2); Potassium 3.5 mmol/L (3.5-5.1)
[2018-02-13] MEDS: PSYLLIUM HUSK 100% 6 GM PACKET PO SCH ×2 (09:11→21:22)
[2018-02-13] MEDS: GARLIC PO SCH ×2 (09:12→21:22)
[2018-02-13] MEDS: VIT A,C & E-LUTEIN-MINERALS 1 EACH TAB PO SCH ×2 (09:18→22:00)
[2018-02-13] MEDS: ALLOPURINOL 100 MG TAB PO SCH (09:18)
[2018-02-13] MEDS: RIVAROXABAN 15 MG TAB PO SCH (09:18)
[2018-02-13] MEDS: CALCITRIOL 0.25 MCG CAP PO SCH (09:18)
[2018-02-13] MEDS: FERROUS SULFATE 325 MG TAB PO SCH (09:18)
[2018-02-13] MEDS: DOCUSATE 100 MG CAP PO SCH ×2 (09:18→22:00)
[2018-02-13] MEDS: traMADol 50 MG TAB PO SCH ×3 (09:18→22:00)
[2018-02-13] MEDS: CHOLECALCIFEROL 1,000 UNIT TAB PO SCH (09:18)
[2018-02-13] MEDS: ISOSORBIDE MONONITRATE ER 60 MG TAB.ER.24H PO SCH (09:18)
[2018-02-13] MEDS: MAGNESIUM OXIDE 400 MG TAB PO SCH (09:18)
[2018-02-13] MEDS ORDERED: Potassium Replacement Protocol 1 EACH MISC MISCELLANE PRN (10:30)
--- NOTE | 2018-02-13 11:32 | P.PN ---
Subjective Progress Note Date: 02/13/18 Trina Carrillo is an 83-year-old female who presented to [facility] emergency room with a chief complaint of worsening shortness of breath patient has a known history of congestive heart failure was cardiomyopathy she also has a known history of chronic kidney disease she was last admitted to [facility] 3 weeks ago, she has been following was Dr. May dredge master and Dr. Escobar insulation estimator as outpatient, she states that recently Lasix was discontinued and patient was started on torsemide 10 mg by mouth daily she states that her weight has been going up gradually, she gained 19 pounds in the last 3 weeks, she started having worsening shortness of breath, and eventually her family decided to bring her back to emergency room. She has a known history of atrial fibrillation with controlled heart rate, she is maintained on Xarelto 15 mg daily for stroke prevention, her last echocardiogram was done on 12/04/2017 and revealed an ejection fraction of 40-45 %. 02/12/2018 patient still having lower extremity edema and shortness of breath with activity. Nephrology is consulted, patient follows with Dr. Bernal outpatient and is known to her. Patient denies any chest pain. Denies any nausea or vomiting. Denies any bowel movement changes or urinary symptoms. Patient does reports that she feels she should be urinating more often than she has with the IV Lasix 02/13/2018 patient was started on IV Lasix drip yesterday. She's had 1 pound weight loss. Patient denies any chest pain. Still having some lower extremity edema. Shortness of breath is improving. Denies any nausea or vomiting. Reports bowel movement. Denies any difficulty urinating. Objective - Vital Signs Vital signs: Vital Signs Temp 97.8 F 02/13/18 09:00 Pulse 93 02/13/18 09:00 Resp 16 02/13/18 09:00 BP 107/57 02/13/18 09:00 Pulse Ox 97 02/13/18 09:00 Intake & Output 02/12/18 02/13/18 02/13/18 18:59 06:59 18:59 Intake Total 617 Output Total 1450 1250 Balance -833 -1250 Weight 81.9 kg 81.5 kg Intake: Intake, IV Titration 20 Amount Furosemide 250 mg In 20 Sodium Chloride 0.9% 225 ml @ 10 MG/HR 10 mls/hr IVP .Q24H [facility] Rx#: [id number] Oral 597 Output: Urine 1450 1250 Other: Voiding Method Toilet # Bowel Movements 1 - Exam Head normocephalic Neck supple Lungs diminished in the bases bilaterally Heart regular rate and rhythm S1-S2, no rub or gallop Abdomen is soft nontender nondistended positive bowel sounds no hepatosplenomegaly Extremities +1 to +2 pitting edema bilaterally Neuro alert and orientated to 3 - Labs CBC & Chem 7: 02/13/18 06:03 02/13/18 06:03 Labs: Abnormal Lab Results - Last 24 Hours (Table) 02/11/18 02/12/18 02/12/18 Range/Units 13:15 11:44 17:00 RBC (3.80-5.40) m/uL Hgb (11.4-16.0) gm/dL MCV (80.0-100.0) fL RDW (11.5-15.5) % Plt Count (150-450) k/uL BUN (7-17) mg/dL Creatinine (0.52-1.04) mg/dL Glucose (74-99) mg/dL POC Glucose (mg/dL) 124 H 151 H (75-99) mg/dL Hemoglobin A1c 7.1 H (4.0-6.0) % 02/12/18 02/13/18 02/13/18 Range/Units 20:48 06:02 06:03 RBC 3.27 L (3.80-5.40) m/uL Hgb 11.2 L (11.4-16.0) gm/dL MCV 107.3 H (80.0-100.0) fL RDW 19.3 H (11.5-15.5) % Plt Count 149 L (150-450) k/uL BUN (7-17) mg/dL Creatinine (0.52-1.04) mg/dL Glucose (74-99) mg/dL POC Glucose (mg/dL) 156 H 121 H (75-99) mg/dL Hemoglobin A1c (4.0-6.0) % 02/13/18 Range/Units 06:03 RBC (3.80-5.40) m/uL Hgb (11.4-16.0) gm/dL MCV (80.0-100.0) fL RDW (11.5-15.5) % Plt Count (150-450) k/uL BUN 57 H (7-17) mg/dL Creatinine 1.88 H (0.52-1.04) mg/dL Glucose 119 H (74-99) mg/dL POC Glucose (mg/dL) (75-99) mg/dL Hemoglobin A1c (4.0-6.0) % Assessment and Plan Assessment: #1 acute on chronic systolic congestive heart failure exacerbation: Started on IV Lasix drip. Continue to monitor daily weights and I's and O's. Followed by cardiology and nephrology. Appreciate nephrology input. #2 underlying history of cardiomyopathy with decreased ejection fraction to 40- 45% #3 underlying history of atrial fibrillation heart rate is well-controlled #4 underlying history of moderate to severe mitral regurgitation #5 underlying history of chronic kidney disease #6 underlying history of hypertension #7 underlying history of diabetes mellitus, will check hemoglobin A1c to assess control #8 underlying history of gout #9 underlying history of chronic back pain For DVT prophylaxis patient is on Xarelto, for GI prophylaxis patient on pantoprazole I performed an examination of the patient and discussed their management with the physician Filter Assembler. I have reviewed the Physician Filter Assembler's notes and agree with the documented findings and plan of care
[2018-02-13 11:44] LABS: Glucose,Whole Blood 134 mg/dL (75-99)
[2018-02-13] MEDS: POTASSIUM CHLORIDE ER 20 MEQ TAB.ER PO SCH ×2 (11:58→13:17)
--- NOTE | 2018-02-13 12:22 | P.PN ---
Subjective Progress Note Date: 02/13/18 Principal diagnosis: CHF secondary to systolic dysfunction This is a pleasant 83-year-old female patient who sees Dr. 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 The patient just discharged from the hospital recently on new medical regimen and the new diuretics. Since then she has been gaining weight very slowly and she was seen in the office recently by Dr. May who did increase the dose of diuretics and in spite of that the patient continues to gain weight very slowly and over the last 3 days she has been feeling short of breath with exertion and also she did develop bilateral lower extremities edema. No chest pain or chest discomfort. No dizziness or lightheadedness and no syncope. The patient stated that she was compliant with her medications and also she has been compliant with her diet and not having any salt whatsoever. The chest x-ray showed findings consistent with CHF. The BNP came in to be elevated as well. The EKG showed A. fib with controlled heart rate. Clearly on physical examination she does have crackles in both lung devlin and also she does have bilateral lower extremities edema worse on the right side probably because of the history of DVT in the right leg. The creatinine is 1.90 which is her baseline. On follow-up with the patient today, she stated that the shortness of breath is better. She still have severe bilateral lower extremities edema which seems to be pitting edema and worse on the right side. The patient was started on Lasix drip yesterday. The kidney function seems to be stable and creatinine is 1.9. I would keep the patient on Lasix drip for at least 0.4 hour and continue monitor the kidney function and electrolytes. Objective - Vital Signs Vital signs: Vital Signs Temp 97.8 F 02/13/18 09:00 Pulse 93 02/13/18 09:00 Resp 16 02/13/18 09:00 BP 107/57 02/13/18 09:00 Pulse Ox 97 02/13/18 09:00 Intake & Output 02/12/18 02/13/18 02/13/18 18:59 06:59 18:59 Intake Total 617 240 Output Total 1450 1250 Balance -833 -1250 240 Weight 81.9 kg 81.5 kg Intake: Intake, IV Titration 20 Amount Furosemide 250 mg In 20 Sodium Chloride 0.9% 225 ml @ 10 MG/HR 10 mls/hr IVP .Q24H [facility] Rx#: [id number] Oral 597 240 Output: Urine 1450 1250 Other: Voiding Method Toilet # Bowel Movements 1 - Constitutional General appearance: Present: no acute distress - Respiratory Respiratory: bilateral: CTA - Cardiovascular Heart sounds: normal: S1, S2 - Labs CBC & Chem 7: 02/13/18 06:03 02/13/18 06:03 Labs: Abnormal Lab Results - Last 24 Hours (Table) 02/11/18 02/12/18 02/12/18 Range/Units 13:15 17:00 20:48 RBC (3.80-5.40) m/uL Hgb (11.4-16.0) gm/dL MCV (80.0-100.0) fL RDW (11.5-15.5) % Plt Count (150-450) k/uL BUN (7-17) mg/dL Creatinine (0.52-1.04) mg/dL Glucose (74-99) mg/dL POC Glucose (mg/dL) 151 H 156 H (75-99) mg/dL Hemoglobin A1c 7.1 H (4.0-6.0) % 02/13/18 02/13/18 02/13/18 Range/Units 06:02 06:03 06:03 RBC 3.27 L (3.80-5.40) m/uL Hgb 11.2 L (11.4-16.0) gm/dL MCV 107.3 H (80.0-100.0) fL RDW 19.3 H (11.5-15.5) % Plt Count 149 L (150-450) k/uL BUN 57 H (7-17) mg/dL Creatinine 1.88 H (0.52-1.04) mg/dL Glucose 119 H (74-99) mg/dL POC Glucose (mg/dL) 121 H (75-99) mg/dL Hemoglobin A1c (4.0-6.0) % 02/13/18 Range/Units 11:23 RBC (3.80-5.40) m/uL Hgb (11.4-16.0) gm/dL MCV (80.0-100.0) fL RDW (11.5-15.5) % Plt Count (150-450) k/uL BUN (7-17) mg/dL Creatinine (0.52-1.04) mg/dL Glucose (74-99) mg/dL POC Glucose (mg/dL) 134 H (75-99) mg/dL Hemoglobin A1c (4.0-6.0) % Assessment and Plan Assessment: Assessment #1 congestive heart failure exacerbation secondary to systolic dysfunction #2 chronic atrial fibrillation was controlled heart rate #3 history of right leg DVT #4 moderate to severe mitral regurgitation #5 mild aortic stenosis #6 cardiomyopathy with an EF around 40%. Plan #1 continue the Lasix drip #2 monitor the kidney function and electrolytes giving the patient known chronic kidney disease. Her creatinine on admission is a baseline #3 monitor the input and output and weight daily #4 follow-up with the patient.
--- NOTE | 2018-02-13 12:31 | PN ---
PROGRESS NOTE Patient is seen for followup for chronic kidney disease and fluid overload. Patient states was started on a Lasix drip yesterday. She states she is feeling slightly better. She has had good urine output. Weight is down by about half a kg. PHYSICAL EXAMINATION: This morning, blood pressure is 107/57, heart rate 93 per minute, patient is afebrile. Examination of the heart, S1, S2. Examination of the lungs, bilateral breath sounds are heard. Abdomen is soft, nontender. Examination of the lower extremities shows no gross edema, 2+ bilaterally. POSTDOCTORAL RESEARCH FELLOW exam is grossly intact. LABS SHOW: Sodium of 143, potassium 3.5, BUN 57, serum creatinine 1.8, hemoglobin 11.2 g/dL. ASSESSMENT: 1. 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 Renal function at baseline. 2. Fluid overload, currently maintained on Lasix drip and this morning, I will continue with the Lasix drip for now. 3. Cardiomyopathy, ejection fraction 40%-45%. 4. Congestive heart failure, acute on top of chronic mainly systolic. 5. Anemia of chronic disease. PLAN: Continue with the Lasix drip. Repeat labs in a.m. MMODL / IJN: [id number] /
[2018-02-13] MEDS: FUROSEMIDE 250 MG in SODIUM CHLORIDE 0.9% 225 ML IVP SCH (13:17)
[2018-02-13 14:20] VITALS: BMI 32.8
[2018-02-13] MEDS: LINAGLIPTIN 5 MG TABLET PO SCH (15:22)
[2018-02-13 17:10] LABS: Glucose,Whole Blood 146 mg/dL (75-99)
[2018-02-13 21:12] LABS: Glucose,Whole Blood 162 mg/dL (75-99)
[2018-02-14] MEDS: AMMONIUM LACTATE 12% CREAM 140 GM TUBE TOPICAL SCH ×2 (06:31→21:37)
[2018-02-14] MEDS: PANTOPRAZOLE 40 MG TABLET PO SCH (06:37)
[2018-02-14] MEDS: SIMBRINZA BOTH EYES SCH ×2 (06:37→21:39)
[2018-02-14] MEDS: METOPROLOL TARTRATE 25 MG TAB PO SCH ×3 (06:37→21:38)
[2018-02-14 06:50] LABS: Anisocytosis Slight; Basophils % (A) 0 %; Eosinophils # (A) 0.1 k/uL (0-0.7); Eosinophils % (A) 2 %; HCT 35.4 % (34.0-46.0); HGB 10.9 gm/dL (11.4-16.0); Hypochromasia Moderate; Lymphocytes # (A) 1.4 k/uL (1.0-4.8); Lymphocytes % (A) 20 %; MCH 33.7 pg (25.0-35.0); MCHC 30.7 g/dL (31.0-37.0); MCV 109.9 fL (80.0-100.0); Macrocytosis Marked; Mean Platelet Volume 8.3; Monocytes # (A) 0.4 k/uL (0-1.0); Monocytes % (A) 5 %; Neutrophils # (A) 4.7 k/uL (1.3-7.7); Neutrophils % (A) 70 %; Platelet Count 143 k/uL (150-450); RBC 3.22 m/uL (3.80-5.40); RDW 19.2 % (11.5-15.5); WBC 6.7 k/uL (3.8-10.6)
[2018-02-14 07:45] LABS: Calcium 9.5 mg/dL (8.4-10.2); Potassium 3.4 mmol/L (3.5-5.1)
[2018-02-14] MEDS: GARLIC PO SCH ×2 (08:15→21:39)
[2018-02-14] MEDS: PSYLLIUM HUSK 100% 6 GM PACKET PO SCH ×2 (08:17→21:39)
[2018-02-14] MEDS: ALLOPURINOL 100 MG TAB PO SCH (08:22)
[2018-02-14] MEDS: FERROUS SULFATE 325 MG TAB PO SCH (08:22)
[2018-02-14] MEDS: ISOSORBIDE MONONITRATE ER 60 MG TAB.ER.24H PO SCH (08:22)
[2018-02-14] MEDS: VIT A,C & E-LUTEIN-MINERALS 1 EACH TAB PO SCH ×2 (08:22→21:38)
[2018-02-14] MEDS: MAGNESIUM OXIDE 400 MG TAB PO SCH (08:23)
[2018-02-14] MEDS: DOCUSATE 100 MG CAP PO SCH ×2 (08:23→21:37)
[2018-02-14] MEDS: CHOLECALCIFEROL 1,000 UNIT TAB PO SCH (08:23)
[2018-02-14] MEDS: RIVAROXABAN 15 MG TAB PO SCH (08:23)
[2018-02-14] MEDS: traMADol 50 MG TAB PO SCH ×3 (08:23→21:37)
[2018-02-14] MEDS: FUROSEMIDE 250 MG in SODIUM CHLORIDE 0.9% 225 ML IVP SCH (08:25)
[2018-02-14] MEDS: POTASSIUM CHLORIDE ER 20 MEQ TAB.ER PO SCH ×2 (09:26→10:14)
--- NOTE | 2018-02-14 10:17 | CDI ---
Last Revision, July 2017 Documentation Clarification Form Date: 02/14/2018 12:00:00 AM From: Vandana Davis Admit Date: 02/10/2018 2:28:00 PM Patient Name: Trina Carrillo Visit Number: [id number] Discharge Date: ATTENTION: The Clinical Documentation Specialists (CDI) and [facility] Coding Staff appreciate your assistance in clarifying documentation. Please respond to the clarification below the line at the bottom and electronically sign. The CDI & [facility] Coding staff will review the response and follow-up if needed. Please note: Queries are made part of the Legal Health Record. If you have any questions, please contact the author of this message via ITS. Dr. Buck Peres Cardiomyopathy is documented in the past medical history, your consultation and ongoing progress notes. . History/Risk Factors: Systolic congestive heart failure, CKD stage IV, Hypertension, Chronic atrial fibrillation, Cardiomyopathy Former smoker Clinical indicators: Present with complaints of shortness of breath and chest pain. patient did get up and ambulate but became significantly short of breath on ambulation. He continues to gain weight. Radiology Reports: Chest x-ray; shows mild pulmonary edema Echocardiogram: EF 40 %, valvular heart disease with moderate to severe MR and mild aortic stenosis. Treatment: Lasix IV Imdur PO Lopressor PO Monitor Labs Monitor input and output and weight daily In your professional opinion, can you please clarify the type of cardiomyopathy and underlying cause if known Dilated Hypertrophic Ischemic Secondary, please indicate underlying cause if known Other, please specify Unable to determine Please continue to document in your progress notes and discharge summary in order to capture severity of illness and risk of mortality. Include clinical findings that support your diagnosis. MTDD
--- NOTE | 2018-02-14 10:18 | P.PN ---
Subjective Progress Note Date: 02/14/18 Principal diagnosis: CHF secondary to systolic dysfunction This is a pleasant 83-year-old female patient who sees Dr. 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 The patient just discharged from the hospital recently on new medical regimen and the new diuretics. Since then she has been gaining weight very slowly and she was seen in the office recently by Dr. May who did increase the dose of diuretics and in spite of that the patient continues to gain weight very slowly and over the last 3 days she has been feeling short of breath with exertion and also she did develop bilateral lower extremities edema. No chest pain or chest discomfort. No dizziness or lightheadedness and no syncope. The patient stated that she was compliant with her medications and also she has been compliant with her diet and not having any salt whatsoever. The chest x-ray showed findings consistent with CHF. The BNP came in to be elevated as well. The EKG showed A. fib with controlled heart rate. Clearly on physical examination she does have crackles in both lung devlin and also she does have bilateral lower extremities edema worse on the right side probably because of the history of DVT in the right leg. The creatinine is 1.90 which is her baseline. On follow-up with the patient today, she stated that the shortness of breath is better. She still have severe bilateral lower extremities edema which seems to be pitting edema and worse on the right side. She continues to be on Lasix drip. The kidney function is slightly worse today. Objective - Vital Signs Vital signs: Vital Signs Temp 97.1 F L 02/14/18 08:23 Pulse 90 02/14/18 08:23 Resp 18 02/14/18 08:23 BP 113/47 02/14/18 08:23 Pulse Ox 96 02/14/18 08:23 Intake & Output 02/13/18 02/14/18 02/14/18 18:59 06:59 18:59 Intake Total 1237.833 431.333 Output Total 600 Balance 1237.833 -600 431.333 Weight 81.5 kg 80.2 kg Intake: IV 40 .9 40 Intake, IV Titration 237.833 191.333 Amount Furosemide 250 mg In 237.833 191.333 Sodium Chloride 0.9% 225 ml @ 10 MG/HR 10 mls/hr IVP .Q24H [facility] Rx#: [id number] Oral 960 240 Output: Urine 600 Other: Voiding Method Toilet - Constitutional General appearance: Present: no acute distress - Respiratory Respiratory: bilateral: CTA - Cardiovascular Heart sounds: normal: S1, S2 - Labs CBC & Chem 7: 02/14/18 05:33 02/14/18 05:33 Labs: Abnormal Lab Results - Last 24 Hours (Table) 02/13/18 02/13/18 02/13/18 Range/Units 11:23 16:52 21:10 RBC (3.80-5.40) m/uL Hgb (11.4-16.0) gm/dL MCV (80.0-100.0) fL MCHC (31.0-37.0) g/dL RDW (11.5-15.5) % Plt Count (150-450) k/uL Potassium (3.5-5.1) mmol/L BUN (7-17) mg/dL Creatinine (0.52-1.04) mg/dL Glucose (74-99) mg/dL POC Glucose (mg/dL) 134 H 146 H 162 H (75-99) mg/dL 02/14/18 02/14/18 Range/Units 05:33 05:33 RBC 3.22 L (3.80-5.40) m/uL Hgb 10.9 L (11.4-16.0) gm/dL MCV 109.9 H (80.0-100.0) fL MCHC 30.7 L (31.0-37.0) g/dL RDW 19.2 H (11.5-15.5) % Plt Count 143 L (150-450) k/uL Potassium 3.4 L (3.5-5.1) mmol/L BUN 58 H (7-17) mg/dL Creatinine 2.07 H (0.52-1.04) mg/dL Glucose 112 H (74-99) mg/dL POC Glucose (mg/dL) (75-99) mg/dL Assessment and Plan Assessment: Assessment #1 congestive heart failure exacerbation secondary to systolic dysfunction #2 chronic atrial fibrillation was controlled heart rate #3 history of right leg DVT #4 moderate to severe mitral regurgitation #5 mild aortic stenosis #6 cardiomyopathy with an EF around 40%. Plan #1 continue the Lasix drip #2 monitor the kidney function and electrolytes giving the patient known chronic kidney disease. Her creatinine on admission is a baseline #3 monitor the input and output and weight daily #4 follow-up with the patient.
--- NOTE | 2018-02-14 11:58 | P.PN ---
Subjective Progress Note Date: 02/14/18 Trina Carrillo is an 83-year-old female who presented to [facility] emergency room with a chief complaint of worsening shortness of breath patient has a known history of congestive heart failure was cardiomyopathy she also has a known history of chronic kidney disease she was last admitted to [facility] 3 weeks ago, she has been following was Dr. May pipe racker and Dr. Escobar professor of industrial technology as outpatient, she states that recently Lasix was discontinued and patient was started on torsemide 10 mg by mouth daily she states that her weight has been going up gradually, she gained 19 pounds in the last 3 weeks, she started having worsening shortness of breath, and eventually her family decided to bring her back to emergency room. She has a known history of atrial fibrillation with controlled heart rate, she is maintained on Xarelto 15 mg daily for stroke prevention, her last echocardiogram was done on 12/04/2017 and revealed an ejection fraction of 40-45 %. 02/12/2018 patient still having lower extremity edema and shortness of breath with activity. Nephrology is consulted, patient follows with Dr. Bernal outpatient and is known to her. Patient denies any chest pain. Denies any nausea or vomiting. Denies any bowel movement changes or urinary symptoms. Patient does reports that she feels she should be urinating more often than she has with the IV Lasix 02/13/2018 patient was started on IV Lasix drip yesterday. She's had 1 pound weight loss. Patient denies any chest pain. Still having some lower extremity edema. Shortness of breath is improving. Denies any nausea or vomiting. Reports bowel movement. Denies any difficulty urinating. On 02/14/2018 patient remains on IV Lasix drip. Patient weight down from 81.5 kg to 80.2 kg this a.m. patient states the shortness of breath is significantly improving along with lower extremity edema. Denies chest pain or shortness of breath at this time. Creatinine increasing to 2.07, discussed case with nurse who spoke to Dr. Escobar. Per nephrology would like to keep patient on Lasix drip for 1 more day. Objective - Vital Signs Vital signs: Vital Signs Temp 97 F L 02/14/18 11:00 Pulse 95 02/14/18 11:00 Resp 18 02/14/18 11:00 BP 140/63 02/14/18 11:00 Pulse Ox 98 02/14/18 11:00 Intake & Output 02/13/18 02/14/18 02/14/18 18:59 06:59 18:59 Intake Total 1237.833 431.333 Output Total 600 300 Balance 1237.833 -600 131.333 Weight 81.5 kg 80.2 kg Intake: IV 40 .9 40 Intake, IV Titration 237.833 191.333 Amount Furosemide 250 mg In 237.833 191.333 Sodium Chloride 0.9% 225 ml @ 10 MG/HR 10 mls/hr IVP .Q24H [facility] Rx#: [id number] Oral 960 240 Output: Urine 600 300 Other: Voiding Method Toilet - Exam Head normocephalic Neck supple Lungs diminished in the bases bilaterally Heart regular rate and rhythm S1-S2, no rub or gallop Abdomen is soft nontender nondistended positive bowel sounds no hepatosplenomegaly Extremities +1 to +2 pitting edema bilaterally Neuro alert and orientated to 3 - Labs CBC & Chem 7: 02/14/18 05:33 02/14/18 05:33 Labs: Abnormal Lab Results - Last 24 Hours (Table) 02/13/18 02/13/18 02/14/18 Range/Units 16:52 21:10 05:33 RBC 3.22 L (3.80-5.40) m/uL Hgb 10.9 L (11.4-16.0) gm/dL MCV 109.9 H (80.0-100.0) fL MCHC 30.7 L (31.0-37.0) g/dL RDW 19.2 H (11.5-15.5) % Plt Count 143 L (150-450) k/uL Potassium (3.5-5.1) mmol/L BUN (7-17) mg/dL Creatinine (0.52-1.04) mg/dL Glucose (74-99) mg/dL POC Glucose (mg/dL) 146 H 162 H (75-99) mg/dL 02/14/18 Range/Units 05:33 RBC (3.80-5.40) m/uL Hgb (11.4-16.0) gm/dL MCV (80.0-100.0) fL MCHC (31.0-37.0) g/dL RDW (11.5-15.5) % Plt Count (150-450) k/uL Potassium 3.4 L (3.5-5.1) mmol/L BUN 58 H (7-17) mg/dL Creatinine 2.07 H (0.52-1.04) mg/dL Glucose 112 H (74-99) mg/dL POC Glucose (mg/dL) (75-99) mg/dL Assessment and Plan Assessment: #1 acute on chronic systolic congestive heart failure exacerbation: Started on IV Lasix drip. Continue to monitor daily weights and I's and O's. Followed by cardiology and nephrology. Per nephrology would like to keep patient on Lasix drip for 24 more hours. Patient weight down from 81.5-80.2 kg #2 underlying history of cardiomyopathy with decreased ejection fraction to 40- 45% #3 underlying history of atrial fibrillation heart rate is well-controlled. Patient on Xarelto. #4 underlying history of moderate to severe mitral regurgitation #5 underlying history of chronic kidney disease. Creatinine increasing to 2.07 this a.m. Per nephrology services would like to keep patient on Lasix drip for 1 more day . We'll continue to monitor closely #6 underlying history of hypertension #7 underlying history of diabetes mellitus. Hemoglobin A1c 7.1. #8 underlying history of gout. Maintained on Allopurional #9 underlying history of chronic back pain #10 hypokalemia. Potassium replacement per protocol For DVT prophylaxis patient is on Xarelto, for GI prophylaxis patient on pantoprazole I performed an examination of the patient and discussed their management with the Nurse Practitioner. I have reviewed the Nurse Practitioner's notes and agree with the documented findings and plan of care
--- NOTE | 2018-02-14 14:20 | PN ---
PROGRESS NOTE Patient is seen for followup for chronic kidney disease and volume overload. She is maintained on Lasix drip. She is doing better with good diuresis. Her weight is down as well. Renal function is not far from baseline. Creatinine did not go up from 1.8 to 2, but she has been at 2 as outpatient. PHYSICAL EXAMINATION: Blood pressure 140/63, heart rate 95 per minute, patient is afebrile. Examination of the heart, S1, S2. Examination of the lungs, bilateral breath sounds are heard. Abdomen is soft, nontender. Examination of the lower extremities shows edema 1+ bilaterally. Chronic skin changes are noted. LABS: Show sodium 143, potassium 3.4, BUN 58, serum creatinine 2.07, hemoglobin 10.9 g/dL. ASSESSMENT: 1. Chronic kidney disease secondary to nephrosclerosis, NKF stage IV, renal function close to baseline. 2. Hypokalemia, secondary to diuretics, currently being replaced. 3. Volume overload maintained on Lasix drip, responding well. I will continue Lasix drip for one more day. 4. Cardiomyopathy, ejection fraction 40%-45%. 5. Congestive heart failure, acute on top of chronic, mainly systolic. 6. Anemia of chronic disease. 7. Chronic kidney disease mineral bone disorder, maintained on calcitriol, which I will continue. PLAN: Replace potassium. Continue with the Lasix drip for one more day. Will switch to IV push Lasix tomorrow. MMODL / IJN: [id number] /
[2018-02-14] MEDS: LINAGLIPTIN 5 MG TABLET PO SCH (15:11)
[2018-02-14 16:47] LABS: Glucose,Whole Blood 135 mg/dL (75-99)
[2018-02-14 20:58] LABS: Glucose,Whole Blood 202 mg/dL (75-99)
[2018-02-15 06:14] LABS: Anisocytosis Slight; Basophils % (A) 0 %; Eosinophils # (A) 0.1 k/uL (0-0.7); Eosinophils % (A) 2 %; HCT 34.3 % (34.0-46.0); HGB 10.6 gm/dL (11.4-16.0); Hypochromasia Moderate; Lymphocytes # (A) 1.2 k/uL (1.0-4.8); Lymphocytes % (A) 20 %; MCH 34.2 pg (25.0-35.0); MCV 110.2 fL (80.0-100.0); Macrocytosis Marked; Mean Platelet Volume 8.2; Monocytes # (A) 0.3 k/uL (0-1.0); Monocytes % (A) 5 %; Neutrophils # (A) 4.4 k/uL (1.3-7.7); Neutrophils % (A) 70 %; Platelet Count 141 k/uL (150-450); RBC 3.11 m/uL (3.80-5.40); RDW 19.4 % (11.5-15.5); WBC 6.3 k/uL (3.8-10.6)
[2018-02-15 06:16] LABS: Glucose,Whole Blood 120 mg/dL (75-99)
[2018-02-15] MEDS: AMMONIUM LACTATE 12% CREAM 140 GM TUBE TOPICAL SCH ×2 (06:16→20:07)
[2018-02-15] MEDS: SIMBRINZA BOTH EYES SCH ×2 (06:16→20:07)
[2018-02-15] MEDS: METOPROLOL TARTRATE 25 MG TAB PO SCH ×3 (06:17→23:07)
[2018-02-15] MEDS: PANTOPRAZOLE 40 MG TABLET PO SCH (06:17)
[2018-02-15 06:31] LABS: Calcium 9.2 mg/dL (8.4-10.2); Potassium 3.5 mmol/L (3.5-5.1)
[2018-02-15 07:11] LABS: Poikilocytosis (M) Present
[2018-02-15] MEDS: GARLIC PO SCH ×2 (08:09→20:02)
[2018-02-15] MEDS: VIT A,C & E-LUTEIN-MINERALS 1 EACH TAB PO SCH ×2 (08:13→20:07)
[2018-02-15] MEDS: CALCITRIOL 0.25 MCG CAP PO SCH (08:13)
[2018-02-15] MEDS: ALLOPURINOL 100 MG TAB PO SCH (08:13)
[2018-02-15] MEDS: MAGNESIUM OXIDE 400 MG TAB PO SCH (08:14)
[2018-02-15] MEDS: CHOLECALCIFEROL 1,000 UNIT TAB PO SCH (08:14)
[2018-02-15] MEDS: FERROUS SULFATE 325 MG TAB PO SCH (08:14)
[2018-02-15] MEDS: PSYLLIUM HUSK 100% 6 GM PACKET PO SCH ×2 (08:15→20:03)
[2018-02-15] MEDS: RIVAROXABAN 15 MG TAB PO SCH (08:15)
[2018-02-15] MEDS: DOCUSATE 100 MG CAP PO SCH ×2 (08:16→20:07)
[2018-02-15] MEDS: traMADol 50 MG TAB PO SCH ×3 (08:16→23:07)
[2018-02-15] MEDS: ISOSORBIDE MONONITRATE ER 60 MG TAB.ER.24H PO SCH (08:20)
[2018-02-15] MEDS ORDERED: METOLAZONE 2.5 MG TAB PO SCH (09:45)
[2018-02-15] MEDS: TORSEMIDE 20 MG TAB PO SCH ×2 (10:12→15:27)
--- NOTE | 2018-02-15 10:18 | P.PN ---
Subjective Progress Note Date: 02/15/18 Principal diagnosis: CHF secondary to systolic dysfunction This is a pleasant 83-year-old female patient who sees Dr. 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 The patient just discharged from the hospital recently on new medical regimen and the new diuretics. Since then she has been gaining weight very slowly and she was seen in the office recently by Dr. May who did increase the dose of diuretics and in spite of that the patient continues to gain weight very slowly and over the last 3 days she has been feeling short of breath with exertion and also she did develop bilateral lower extremities edema. No chest pain or chest discomfort. No dizziness or lightheadedness and no syncope. The patient stated that she was compliant with her medications and also she has been compliant with her diet and not having any salt whatsoever. The chest x-ray showed findings consistent with CHF. The BNP came in to be elevated as well. The EKG showed A. fib with controlled heart rate. Clearly on physical examination she does have crackles in both lung devlin and also she does have bilateral lower extremities edema worse on the right side probably because of the history of DVT in the right leg. The creatinine is 1.90 which is her baseline. On follow-up with the patient today, she stated that the shortness of breath is better. She still have severe bilateral lower extremities edema which seems to be pitting edema and worse on the right side. The Lasix drip was stopped and the patient currently on the Torsemide and Zaroxolyn Objective - Vital Signs Vital signs: Vital Signs Temp 98.6 F 02/15/18 08:00 Pulse 99 02/15/18 08:00 Resp 20 02/15/18 08:00 BP 99/52 02/15/18 08:00 Pulse Ox 94 L 02/15/18 08:00 Intake & Output 02/14/18 02/15/18 02/15/18 18:59 06:59 18:59 Intake Total 671.333 Output Total 600 1050 Balance 71.333 -1050 Weight 79.8 kg Intake: Intake, IV Titration 191.333 Amount Furosemide 250 mg In 191.333 Sodium Chloride 0.9% 225 ml @ 10 MG/HR 10 mls/hr IVP .Q24H [facility] Rx#: [id number] Oral 480 Output: Urine 600 1050 Other: Voiding Method Toilet Toilet # Voids 1 # Bowel Movements 0 - Constitutional General appearance: Present: no acute distress - Respiratory Respiratory: bilateral: CTA - Cardiovascular Heart sounds: normal: S1, S2 - Labs CBC & Chem 7: 02/15/18 05:38 02/15/18 05:38 Labs: Abnormal Lab Results - Last 24 Hours (Table) 02/14/18 02/14/18 02/15/18 Range/Units 16:44 20:55 05:38 RBC 3.11 L (3.80-5.40) m/uL Hgb 10.6 L (11.4-16.0) gm/dL MCV 110.2 H (80.0-100.0) fL RDW 19.4 H (11.5-15.5) % Plt Count 141 L (150-450) k/uL BUN (7-17) mg/dL Creatinine (0.52-1.04) mg/dL Glucose (74-99) mg/dL POC Glucose (mg/dL) 135 H 202 H (75-99) mg/dL 02/15/18 02/15/18 Range/Units 05:38 06:15 RBC (3.80-5.40) m/uL Hgb (11.4-16.0) gm/dL MCV (80.0-100.0) fL RDW (11.5-15.5) % Plt Count (150-450) k/uL BUN 60 H (7-17) mg/dL Creatinine 2.00 H (0.52-1.04) mg/dL Glucose 114 H (74-99) mg/dL POC Glucose (mg/dL) 120 H (75-99) mg/dL Assessment and Plan Assessment: Assessment #1 congestive heart failure exacerbation secondary to systolic dysfunction #2 chronic atrial fibrillation was controlled heart rate #3 history of right leg DVT #4 moderate to severe mitral regurgitation #5 mild aortic stenosis #6 cardiomyopathy with an EF around 40%. Plan #1 continue the current by mouth diuretics #2 monitor the kidney function and electrolytes giving the patient known chronic kidney disease. Her creatinine on admission is a baseline #3 monitor the input and output and weight daily #4 follow-up with the patient.
--- NOTE | 2018-02-15 11:13 | P.PN ---
Subjective Progress Note Date: 02/08/18 Trina Carrillo is an 83-year-old female who presented to [facility] emergency room with a chief complaint of worsening shortness of breath patient has a known history of congestive heart failure was cardiomyopathy she also has a known history of chronic kidney disease she was last admitted to [facility] 3 weeks ago, she has been following was Dr. May farm products shipper and Dr. Escobar setter up as outpatient, she states that recently Lasix was discontinued and patient was started on torsemide 10 mg by mouth daily she states that her weight has been going up gradually, she gained 19 pounds in the last 3 weeks, she started having worsening shortness of breath, and eventually her family decided to bring her back to emergency room. She has a known history of atrial fibrillation with controlled heart rate, she is maintained on Xarelto 15 mg daily for stroke prevention, her last echocardiogram was done on 12/04/2017 and revealed an ejection fraction of 40-45 %. 02/12/2018 patient still having lower extremity edema and shortness of breath with activity. Nephrology is consulted, patient follows with Dr. Bernal outpatient and is known to her. Patient denies any chest pain. Denies any nausea or vomiting. Denies any bowel movement changes or urinary symptoms. Patient does reports that she feels she should be urinating more often than she has with the IV Lasix 02/13/2018 patient was started on IV Lasix drip yesterday. She's had 1 pound weight loss. Patient denies any chest pain. Still having some lower extremity edema. Shortness of breath is improving. Denies any nausea or vomiting. Reports bowel movement. Denies any difficulty urinating. On 02/14/2018 patient remains on IV Lasix drip. Patient weight down from 81.5 kg to 80.2 kg this a.m. patient states the shortness of breath is significantly improving along with lower extremity edema. Denies chest pain or shortness of breath at this time. Creatinine increasing to 2.07, discussed case with nurse who spoke to Dr. Escobar. Per nephrology would like to keep patient on Lasix drip for 1 more day. 02/15/2018 Lasix drip discontinued today by nephrology. They have started patient on torsemide 20 mg twice a day and Zaroxolyn 2.5 mg daily. Patient's weight has decreased from 80.2 kg to 79.8 kg. She denies any shortness of breath. Has had some decrease in the lower extremity swelling. She is complaining of some burning when she urinates. However, she feels it's more due to skin irritation from the frequent urinating from the Lasix. However, we' ll check a urinalysis with culture. Also will supply zinc oxide to the irritated skin Objective - Vital Signs Vital signs: Vital Signs Temp 98.6 F 02/15/18 08:00 Pulse 99 02/15/18 08:00 Resp 20 02/15/18 08:00 BP 99/52 02/15/18 08:00 Pulse Ox 94 L 02/15/18 08:00 Intake & Output 02/14/18 02/15/18 02/15/18 18:59 06:59 18:59 Intake Total 671.333 236 Output Total 600 1050 Balance 71.333 -1050 236 Weight 79.8 kg Intake: Intake, IV Titration 191.333 Amount Furosemide 250 mg In 191.333 Sodium Chloride 0.9% 225 ml @ 10 MG/HR 10 mls/hr IVP .Q24H [facility] Rx#: [id number] Oral 480 236 Output: Urine 600 1050 Other: Voiding Method Toilet Toilet # Voids 1 # Bowel Movements 0 - Exam Head normocephalic Neck supple Lungs diminished in the bases bilaterally Heart irregular. A. fib on monitor Abdomen is soft nontender nondistended positive bowel sounds no hepatosplenomegaly Extremities +1 pitting edema bilaterally Neuro alert and orientated to 3 - Labs CBC & Chem 7: 02/15/18 05:38 02/15/18 05:38 Labs: Abnormal Lab Results - Last 24 Hours (Table) 02/14/18 02/14/18 02/15/18 Range/Units 16:44 20:55 05:38 RBC 3.11 L (3.80-5.40) m/uL Hgb 10.6 L (11.4-16.0) gm/dL MCV 110.2 H (80.0-100.0) fL RDW 19.4 H (11.5-15.5) % Plt Count 141 L (150-450) k/uL BUN (7-17) mg/dL Creatinine (0.52-1.04) mg/dL Glucose (74-99) mg/dL POC Glucose (mg/dL) 135 H 202 H (75-99) mg/dL 02/15/18 02/15/18 Range/Units 05:38 06:15 RBC (3.80-5.40) m/uL Hgb (11.4-16.0) gm/dL MCV (80.0-100.0) fL RDW (11.5-15.5) % Plt Count (150-450) k/uL BUN 60 H (7-17) mg/dL Creatinine 2.00 H (0.52-1.04) mg/dL Glucose 114 H (74-99) mg/dL POC Glucose (mg/dL) 120 H (75-99) mg/dL Assessment and Plan Assessment: #1 acute on chronic systolic congestive heart failure exacerbation: Nephrology has discontinue the Lasix drip. Started patient on torsemide 20 g twice a day and Zaroxolyn 2.5 mg daily #2 underlying history of cardiomyopathy with decreased ejection fraction to 40- 45% #3 underlying history of atrial fibrillation heart rate is well-controlled #4 underlying history of moderate to severe mitral regurgitation #5 underlying history of chronic kidney disease #6 underlying history of hypertension #7 underlying history of diabetes mellitus, type II A1c 7.1 #8 underlying history of gout #9 underlying history of chronic back pain For DVT prophylaxis patient is on Xarelto, for GI prophylaxis patient on pantoprazole Possible discharge home tomorrow I performed an examination of the patient and discussed their management with the physician Egg Smeller. I have reviewed the Physician Egg Smeller's notes and agree with the documented findings and plan of care
[2018-02-15 11:50] LABS: Glucose,Whole Blood 141 mg/dL (75-99)
[2018-02-15] MEDS: ZINC OXIDE 20% OINT 28.4 GM TUBE TOPICAL SCH ×2 (12:19→20:07)
[2018-02-15 12:39] LABS: Appearance,Urine Cloudy (Clear); Bacteria,Urine Moderate /hpf; Bilirubin,Urine Negative (Negative); Blood,Urine Small (Negative); Color,Urine Yellow; Glucose,Urine (UA) Negative (Negative); Hyaline Casts,Urine 4 /lpf (0-2); Ketones,Urine Negative (Negative); Leukocyte Esterase,Urine Large (Negative); Mucus,Urine Rare /hpf; Nitrite,Urine Negative (Negative); PH, Urine 5.5 (5.0-8.0); Protein,Urine Trace (Negative); RBC,Urine 1 /hpf (0-5); Specific Gravity,Urine 1.008 (1.001-1.035); Squamous Epithelial Cell,Urine <1 /hpf (0-4); Urobilinogen,Urine <2.0 mg/dL (<2.0); WBC,Urine 175 /hpf (0-5)
[2018-02-15] MEDS: LINAGLIPTIN 5 MG TABLET PO SCH (15:27)
[2018-02-15 16:33] LABS: Glucose,Whole Blood 148 mg/dL (75-99)
--- NOTE | 2018-02-15 17:51 | PN ---
PROGRESS NOTE Patient is seen for followup for chronic kidney disease and volume overload. She has been maintained on Lasix drip. Her weight has improved. She has diuresed fairly well. I will switch her to p.o. diuretics. We can observe her for one more day and she can be discharged tomorrow. On examination, blood pressure is 100/62, heart rate 99 per minute. She is afebrile. EXAMINATION OF THE HEART: S1, S2. EXAMINATION OF LUNGS: Bilateral breath sounds are heard. ABDOMEN: Soft, non-tender. Examination of lower extremities shows edema 1+ bilaterally which is currently improved since admission. AUTO BODY SERVICE MECHANIC exam is grossly intact. Labs show sodium 140, potassium 3.5, BUN 60, serum creatinine 2.0, hemoglobin 10.6 g/dL. ASSESSMENT: 1. Chronic kidney disease secondary to nephrosclerosis, NKF stage IV. Renal function close to baseline. 2. Congestive heart failure, acute on top of chronic, mainly systolic, currently on Lasix drip. We will switch her to oral diuretics. 3. Urinary tract infection. UA is positive for UTI. I will check urine culture and we will give her a dose of Rocephin. 4. Atrial fibrillation with controlled ventricular response. 5. Moderate to severe mitral regurgitation. 6. Type 2 diabetes. PLAN: Check urine cultures and Rocephin IV x1 today. Repeat labs in a.m. and switch to oral Demadex along with small dose of Zaroxolyn. Possible discharge in a.m. MMODL / IJN: [id number] /
[2018-02-15] MEDS: cefTRIAXone IN SWFI 1,000 MG/10 ML SYRINGE IVP SCH (18:07)
[2018-02-15 21:03] LABS: Glucose,Whole Blood 164 mg/dL (75-99)
[2018-02-16] MEDS: AMMONIUM LACTATE 12% CREAM 140 GM TUBE TOPICAL SCH ×2 (05:54→21:44)
[2018-02-16 06:00] LABS: Glucose,Whole Blood 105 mg/dL (75-99)
[2018-02-16 06:17] LABS: Anisocytosis Slight; Basophils % (A) 0 %; Eosinophils # (A) 0.2 k/uL (0-0.7); Eosinophils % (A) 3 %; HCT 34.5 % (34.0-46.0); HGB 10.6 gm/dL (11.4-16.0); Hypochromasia Slight; Lymphocytes # (A) 1.4 k/uL (1.0-4.8); Lymphocytes % (A) 22 %; MCH 33.5 pg (25.0-35.0); MCHC 30.8 g/dL (31.0-37.0); MCV 108.7 fL (80.0-100.0); Macrocytosis Marked; Mean Platelet Volume 8.2; Monocytes # (A) 0.4 k/uL (0-1.0); Monocytes % (A) 6 %; Neutrophils # (A) 4.2 k/uL (1.3-7.7); Neutrophils % (A) 67 %; Platelet Count 149 k/uL (150-450); RBC 3.17 m/uL (3.80-5.40); RDW 19.2 % (11.5-15.5); WBC 6.3 k/uL (3.8-10.6)
[2018-02-16 06:20] LABS: Calcium 9.4 mg/dL (8.4-10.2); Potassium 3.2 mmol/L (3.5-5.1)
[2018-02-16] MEDS: METOPROLOL TARTRATE 25 MG TAB PO SCH ×2 (06:45→21:48)
[2018-02-16] MEDS: PANTOPRAZOLE 40 MG TABLET PO SCH (06:45)
[2018-02-16] MEDS: SIMBRINZA BOTH EYES SCH ×2 (06:45→21:47)
[2018-02-16] MEDS: GARLIC PO SCH (08:18)
[2018-02-16] MEDS: MAGNESIUM OXIDE 400 MG TAB PO SCH (08:22)
[2018-02-16] MEDS: ALLOPURINOL 100 MG TAB PO SCH (08:22)
[2018-02-16] MEDS: DOCUSATE 100 MG CAP PO SCH ×2 (08:22→21:47)
[2018-02-16] MEDS: RIVAROXABAN 15 MG TAB PO SCH (08:23)
[2018-02-16] MEDS: VIT A,C & E-LUTEIN-MINERALS 1 EACH TAB PO SCH ×2 (08:23→21:48)
[2018-02-16] MEDS: FERROUS SULFATE 325 MG TAB PO SCH (08:23)
[2018-02-16] MEDS: PSYLLIUM HUSK 100% 6 GM PACKET PO SCH ×2 (08:23→21:43)
[2018-02-16] MEDS: CHOLECALCIFEROL 1,000 UNIT TAB PO SCH (08:23)
[2018-02-16] MEDS: traMADol 50 MG TAB PO SCH ×3 (08:24→23:54)
[2018-02-16] MEDS: TORSEMIDE 20 MG TAB PO SCH ×2 (08:24→15:49)
[2018-02-16] MEDS: ZINC OXIDE 20% OINT 28.4 GM TUBE TOPICAL SCH ×2 (08:28→21:44)
[2018-02-16] MEDS ORDERED: METOLAZONE 2.5 MG TAB PO SCH (09:00)
[2018-02-16] MEDS: ISOSORBIDE MONONITRATE ER 60 MG TAB.ER.24H PO SCH (10:00)
[2018-02-16] MEDS: METOLAZONE 5 MG TAB PO SCH (10:00)
--- NOTE | 2018-02-16 10:03 | P.PN ---
Subjective Progress Note Date: 02/16/18 Trina Carrillo is an 83-year-old female who presented to [facility] emergency room with a chief complaint of worsening shortness of breath patient has a known history of congestive heart failure was cardiomyopathy she also has a known history of chronic kidney disease she was last admitted to [facility] 3 weeks ago, she has been following was Dr. May machine container washer and Dr. Escobar literacy consultant as outpatient, she states that recently Lasix was discontinued and patient was started on torsemide 10 mg by mouth daily she states that her weight has been going up gradually, she gained 19 pounds in the last 3 weeks, she started having worsening shortness of breath, and eventually her family decided to bring her back to emergency room. She has a known history of atrial fibrillation with controlled heart rate, she is maintained on Xarelto 15 mg daily for stroke prevention, her last echocardiogram was done on 12/04/2017 and revealed an ejection fraction of 40-45 %. 02/12/2018 patient still having lower extremity edema and shortness of breath with activity. Nephrology is consulted, patient follows with Dr. Bernal outpatient and is known to her. Patient denies any chest pain. Denies any nausea or vomiting. Denies any bowel movement changes or urinary symptoms. Patient does reports that she feels she should be urinating more often than she has with the IV Lasix 02/13/2018 patient was started on IV Lasix drip yesterday. She's had 1 pound weight loss. Patient denies any chest pain. Still having some lower extremity edema. Shortness of breath is improving. Denies any nausea or vomiting. Reports bowel movement. Denies any difficulty urinating. On 02/14/2018 patient remains on IV Lasix drip. Patient weight down from 81.5 kg to 80.2 kg this a.m. patient states the shortness of breath is significantly improving along with lower extremity edema. Denies chest pain or shortness of breath at this time. Creatinine increasing to 2.07, discussed case with nurse who spoke to Dr. Escobar. Per nephrology would like to keep patient on Lasix drip for 1 more day. 02/15/2018 Lasix drip discontinued today by nephrology. They have started patient on torsemide 20 mg twice a day and Zaroxolyn 2.5 mg daily. Patient's weight has decreased from 80.2 kg to 79.8 kg. She denies any shortness of breath. Has had some decrease in the lower extremity swelling. She is complaining of some burning when she urinates. However, she feels it's more due to skin irritation from the frequent urinating from the Lasix. However, we' ll check a urinalysis with culture. Also will supply zinc oxide to the irritated skin 02/16/2018 patient still having lower extremity edema. Weight increased from 79.8 kg to 80.1 kg. Denies shortness of breath. Blood pressure 97/51. Patient seen by nephrology. The recommending patient stay 1 more day. Zaroxolyn increased to 5 mg daily. Patient found to have evidence of a UTI started on Rocephin. Awaiting urine culture. Objective - Vital Signs Vital signs: Vital Signs Temp 96.4 F L 02/16/18 08:00 Pulse 73 02/16/18 08:00 Resp 18 02/16/18 08:00 BP 97/51 02/16/18 08:00 Pulse Ox 95 02/16/18 08:00 Intake & Output 02/15/18 02/16/18 02/16/18 18:59 06:59 18:59 Intake Total 472 236 Output Total 300 1075 Balance 172 -1075 236 Weight 80.1 kg Intake: Oral 472 236 Output: Urine 300 1075 Other: Voiding Method Toilet Toilet # Voids 2 # Bowel Movements 1 - Exam Head normocephalic Neck supple Lungs diminished in the bases bilaterally Heart irregular. A. fib on monitor Abdomen is soft nontender nondistended positive bowel sounds no hepatosplenomegaly Extremities +1 pitting edema bilaterally Neuro alert and orientated to 3 - Labs CBC & Chem 7: 02/16/18 05:28 02/16/18 05:28 Labs: Abnormal Lab Results - Last 24 Hours (Table) 02/15/18 02/15/18 02/15/18 Range/Units 11:49 12:22 16:32 RBC (3.80-5.40) m/uL Hgb (11.4-16.0) gm/dL MCV (80.0-100.0) fL MCHC (31.0-37.0) g/dL RDW (11.5-15.5) % Plt Count (150-450) k/uL Potassium (3.5-5.1) mmol/L BUN (7-17) mg/dL Creatinine (0.52-1.04) mg/dL Glucose (74-99) mg/dL POC Glucose (mg/dL) 141 H 148 H (75-99) mg/dL Urine Appearance Cloudy H (Clear) Urine Protein Trace H (Negative) Urine Blood Small H (Negative) Ur Leukocyte Esterase Large H (Negative) Urine WBC 175 H (0-5) /hpf Urine WBC Clumps Moderate H (None) /hpf Urine Bacteria Moderate H (None) /hpf Hyaline Casts 4 H (0-2) /lpf Urine Mucus Rare H (None) /hpf 02/15/18 02/16/18 02/16/18 Range/Units 21:01 05:28 05:28 RBC 3.17 L (3.80-5.40) m/uL Hgb 10.6 L (11.4-16.0) gm/dL MCV 108.7 H (80.0-100.0) fL MCHC 30.8 L (31.0-37.0) g/dL RDW 19.2 H (11.5-15.5) % Plt Count 149 L (150-450) k/uL Potassium 3.2 L (3.5-5.1) mmol/L BUN 61 H (7-17) mg/dL Creatinine 2.00 H (0.52-1.04) mg/dL Glucose 101 H (74-99) mg/dL POC Glucose (mg/dL) 164 H (75-99) mg/dL Urine Appearance (Clear) Urine Protein (Negative) Urine Blood (Negative) Ur Leukocyte Esterase (Negative) Urine WBC (0-5) /hpf Urine WBC Clumps (None) /hpf Urine Bacteria (None) /hpf Hyaline Casts (0-2) /lpf Urine Mucus (None) /hpf 02/16/18 Range/Units 05:59 RBC (3.80-5.40) m/uL Hgb (11.4-16.0) gm/dL MCV (80.0-100.0) fL MCHC (31.0-37.0) g/dL RDW (11.5-15.5) % Plt Count (150-450) k/uL Potassium (3.5-5.1) mmol/L BUN (7-17) mg/dL Creatinine (0.52-1.04) mg/dL Glucose (74-99) mg/dL POC Glucose (mg/dL) 105 H (75-99) mg/dL Urine Appearance (Clear) Urine Protein (Negative) Urine Blood (Negative) Ur Leukocyte Esterase (Negative) Urine WBC (0-5) /hpf Urine WBC Clumps (None) /hpf Urine Bacteria (None) /hpf Hyaline Casts (0-2) /lpf Urine Mucus (None) /hpf Microbiology - Last 24 Hours (Table) 02/15/18 12:22 Urine Culture - Preliminary Urine,Clean Catch Assessment and Plan Assessment: #1 acute on chronic systolic congestive heart failure exacerbation: Nephrology has discontinue the Lasix drip. Started patient on torsemide 20 g twice a day yesterday. Nephrology has increase the Zaroxolyn to 5 mg daily. Continue to monitor daily weights #2 underlying history of cardiomyopathy with decreased ejection fraction to 40- 45% #3 underlying history of atrial fibrillation heart rate is well-controlled #4 underlying history of moderate to severe mitral regurgitation #5 underlying history of chronic kidney disease #6 underlying history of hypertension #7 underlying history of diabetes mellitus, type II A1c 7.1 #8 underlying history of gout #9 underlying history of chronic back pain #10 UTI: Continue Rocephin 1 g daily. Await urine culture Patient is not ready for discharge today For DVT prophylaxis patient is on Xarelto, for GI prophylaxis patient on pantoprazole I performed an examination of the patient and discussed their management with the physician Health Underwriter. I have reviewed the Physician Health Underwriter's notes and agree with the documented findings and plan of care
--- NOTE | 2018-02-16 10:23 | P.PN ---
Subjective Progress Note Date: 02/16/18 Principal diagnosis: CHF secondary to systolic dysfunction This is a pleasant 83-year-old female patient who sees Dr. 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 The patient just discharged from the hospital recently on new medical regimen and the new diuretics. Since then she has been gaining weight very slowly and she was seen in the office recently by Dr. May who did increase the dose of diuretics and in spite of that the patient continues to gain weight very slowly and over the last 3 days she has been feeling short of breath with exertion and also she did develop bilateral lower extremities edema. No chest pain or chest discomfort. No dizziness or lightheadedness and no syncope. The patient stated that she was compliant with her medications and also she has been compliant with her diet and not having any salt whatsoever. The chest x-ray showed findings consistent with CHF. The BNP came in to be elevated as well. The EKG showed A. fib with controlled heart rate. Clearly on physical examination she does have crackles in both lung devlin and also she does have bilateral lower extremities edema worse on the right side probably because of the history of DVT in the right leg. The creatinine is 1.90 which is her baseline. I'll follow-up with the patient today, she denies having any chest pain or discomfort or shortness of breath that she has been up and around. She still have bilateral lower extremities edema worse on the right side. The blood pressure has been marginally low. I'm going to decrease the dose of metoprolol to 25 mg by mouth twice a day. The weight did not change a lot compared to before. Objective - Vital Signs Vital signs: Vital Signs Temp 96.4 F L 02/16/18 08:00 Pulse 73 02/16/18 08:00 Resp 18 02/16/18 08:00 BP 97/51 02/16/18 08:00 Pulse Ox 95 02/16/18 08:00 Intake & Output 02/15/18 02/16/18 02/16/18 18:59 06:59 18:59 Intake Total 472 236 Output Total 300 1075 Balance 172 -1075 236 Weight 80.1 kg Intake: Oral 472 236 Output: Urine 300 1075 Other: Voiding Method Toilet Toilet # Voids 2 # Bowel Movements 1 - Constitutional General appearance: Present: no acute distress - Respiratory Respiratory: bilateral: CTA - Cardiovascular Heart sounds: normal: S1, S2 - Labs CBC & Chem 7: 02/16/18 05:28 02/16/18 05:28 Labs: Abnormal Lab Results - Last 24 Hours (Table) 02/15/18 02/15/18 02/15/18 Range/Units 11:49 12:22 16:32 RBC (3.80-5.40) m/uL Hgb (11.4-16.0) gm/dL MCV (80.0-100.0) fL MCHC (31.0-37.0) g/dL RDW (11.5-15.5) % Plt Count (150-450) k/uL Potassium (3.5-5.1) mmol/L BUN (7-17) mg/dL Creatinine (0.52-1.04) mg/dL Glucose (74-99) mg/dL POC Glucose (mg/dL) 141 H 148 H (75-99) mg/dL Urine Appearance Cloudy H (Clear) Urine Protein Trace H (Negative) Urine Blood Small H (Negative) Ur Leukocyte Esterase Large H (Negative) Urine WBC 175 H (0-5) /hpf Urine WBC Clumps Moderate H (None) /hpf Urine Bacteria Moderate H (None) /hpf Hyaline Casts 4 H (0-2) /lpf Urine Mucus Rare H (None) /hpf 02/15/18 02/16/18 02/16/18 Range/Units 21:01 05:28 05:28 RBC 3.17 L (3.80-5.40) m/uL Hgb 10.6 L (11.4-16.0) gm/dL MCV 108.7 H (80.0-100.0) fL MCHC 30.8 L (31.0-37.0) g/dL RDW 19.2 H (11.5-15.5) % Plt Count 149 L (150-450) k/uL Potassium 3.2 L (3.5-5.1) mmol/L BUN 61 H (7-17) mg/dL Creatinine 2.00 H (0.52-1.04) mg/dL Glucose 101 H (74-99) mg/dL POC Glucose (mg/dL) 164 H (75-99) mg/dL Urine Appearance (Clear) Urine Protein (Negative) Urine Blood (Negative) Ur Leukocyte Esterase (Negative) Urine WBC (0-5) /hpf Urine WBC Clumps (None) /hpf Urine Bacteria (None) /hpf Hyaline Casts (0-2) /lpf Urine Mucus (None) /hpf 02/16/18 Range/Units 05:59 RBC (3.80-5.40) m/uL Hgb (11.4-16.0) gm/dL MCV (80.0-100.0) fL MCHC (31.0-37.0) g/dL RDW (11.5-15.5) % Plt Count (150-450) k/uL Potassium (3.5-5.1) mmol/L BUN (7-17) mg/dL Creatinine (0.52-1.04) mg/dL Glucose (74-99) mg/dL POC Glucose (mg/dL) 105 H (75-99) mg/dL Urine Appearance (Clear) Urine Protein (Negative) Urine Blood (Negative) Ur Leukocyte Esterase (Negative) Urine WBC (0-5) /hpf Urine WBC Clumps (None) /hpf Urine Bacteria (None) /hpf Hyaline Casts (0-2) /lpf Urine Mucus (None) /hpf Microbiology - Last 24 Hours (Table) 02/15/18 12:22 Urine Culture - Preliminary Urine,Clean Catch Assessment and Plan Assessment: Assessment #1 congestive heart failure exacerbation secondary to systolic dysfunction #2 chronic atrial fibrillation was controlled heart rate #3 history of right leg DVT #4 moderate to severe mitral regurgitation #5 mild aortic stenosis #6 cardiomyopathy with an EF around 40%. Plan #1 decrease the dose of metoprolol to 25 mg by mouth twice a day. #2 monitor the kidney function and electrolytes giving the patient known chronic kidney disease. Her creatinine on admission is a baseline #3 monitor the input and output and weight daily #4 follow-up with the patient.
[2018-02-16 11:44] LABS: Glucose,Whole Blood 127 mg/dL (75-99)
[2018-02-16] MEDS: MIDODRINE 5 MG TAB PO SCH ×2 (12:31→17:30)
[2018-02-16] MEDS: POTASSIUM CHLORIDE ER 20 MEQ TAB.ER PO SCH ×2 (12:31→13:58)
--- NOTE | 2018-02-16 12:49 | PN ---
PROGRESS NOTE Patient is seen for followup for chronic kidney disease and volume overload. She was admitted with CHF exacerbation. Patient has been on Lasix drip. Her volume status has improved. She was switched over to oral diuretic yesterday. Patient's daughter is concerned that she may come back with increased weight gain if we do not observe her more closely. She has had about 1.3 L of urine output this morning. Blood pressure was low. I have added Zaroxolyn. Patient also has underlying A. Fib and is maintained on beta blockers. Her heart rate goes up in the 102-110 range with exertion. Therefore, we are not able to decrease the dose of beta blockers significantly. Patient is also maintained on Imdur. If her blood pressure remains low, we can consider adding midodrine. Overall volume status is improved since admission. PHYSICAL EXAMINATION: Blood pressure is 87/48, heart rate 90 per minute, patient is afebrile. Examination of the heart, S1, S2. Examination of the lungs, bilateral breath sounds are heard. Abdomen is soft, nontender. Examination of the lower extremities shows edema 1+ bilaterally. CHART PICKER exam is grossly intact. Patient is moving all 4 extremities. LABS: Show sodium of 139, potassium 3.2, chloride 103, BUN 61, serum creatinine 2.0. ASSESSMENT: 1. Chronic kidney disease, NKF stage IV. Renal function at baseline. Etiology is nephrosclerosis. 2. Volume overload, currently improved. patient has been switched over from Lasix drip to torsemide p.o. I have added Zaroxolyn. Her output for 24 hours was okay at 1.3 L. She did have low blood pressure which will affect the diuresis as well. I will add midodrine to help with the hypotension. Patient needs to be maintained on the beta blockers for the atrial fibrillation. 3. Hypokalemia, secondary to diuretics. Will replace. 4. Cardiomyopathy, ejection fraction 40%-45% on previous echocardiogram in November of 2016. 5. Moderate to severe mitral regurgitation. PLAN: Add low-dose midodrine. Continue with current dose of torsemide. Increase Zaroxolyn to 5 mg daily. Repeat labs in a.m. Patient should be stable for discharge tomorrow. MMODL / IJN: [id number] /
[2018-02-16] MEDS: LINAGLIPTIN 5 MG TABLET PO SCH (15:11)
[2018-02-16] MEDS ORDERED: POTASSIUM CHLORIDE ER 20 MEQ TAB.ER PO STA (15:50)
[2018-02-16 16:33] LABS: Glucose,Whole Blood 181 mg/dL (75-99)
[2018-02-16] MEDS: cefTRIAXone IN SWFI 1,000 MG/10 ML SYRINGE IVP SCH (17:30)
[2018-02-16 21:01] LABS: Glucose,Whole Blood 197 mg/dL (75-99)
[2018-02-17] MEDS: AMMONIUM LACTATE 12% CREAM 140 GM TUBE TOPICAL SCH ×2 (06:28→19:48)
[2018-02-17] MEDS: MIDODRINE 5 MG TAB PO SCH ×2 (06:29→17:37)
[2018-02-17] MEDS: SIMBRINZA BOTH EYES SCH ×2 (06:29→19:51)
[2018-02-17] MEDS: PANTOPRAZOLE 40 MG TABLET PO SCH (06:29)
[2018-02-17 06:41] LABS: Anisocytosis Slight; Basophils % (A) 1 %; Eosinophils # (A) 0.2 k/uL (0-0.7); Eosinophils % (A) 3 %; HCT 36.3 % (34.0-46.0); HGB 11.1 gm/dL (11.4-16.0); Hypochromasia Slight; Lymphocytes # (A) 1.5 k/uL (1.0-4.8); Lymphocytes % (A) 22 %; MCH 33.5 pg (25.0-35.0); MCHC 30.7 g/dL (31.0-37.0); MCV 109.1 fL (80.0-100.0); Macrocytosis Marked; Mean Platelet Volume 8.6; Monocytes # (A) 0.4 k/uL (0-1.0); Monocytes % (A) 6 %; Neutrophils # (A) 4.6 k/uL (1.3-7.7); Neutrophils % (A) 67 %; Platelet Count 162 k/uL (150-450); RBC 3.33 m/uL (3.80-5.40); RDW 19.1 % (11.5-15.5); WBC 6.9 k/uL (3.8-10.6)
[2018-02-17 06:50] LABS: Albumin 3.4 g/dL (3.5-5.0); Calcium 9.6 mg/dL (8.4-10.2); Potassium 3.4 mmol/L (3.5-5.1); Total Bilirubin 0.6 mg/dL (0.2-1.3); Total Protein 5.9 g/dL (6.3-8.2)
[2018-02-17] MEDS ORDERED: POTASSIUM CHLORIDE ER 20 MEQ TAB.ER PO STA (09:50)
--- NOTE | 2018-02-17 10:22 | P.PN ---
Subjective Patient is seen in follow-up for chronic kidney disease. Patient has chronic kidney disease stage IV with baseline creatinine near 2. GFR is at baseline. Patient's currently resting in bed. Denies vomiting or diarrhea. Oral intake is good. Vital signs are stable. General: The patient appeared well nourished and normally developed. HEENT: Head exam is unremarkable. Neck is without jugular venous distension. LUNGS: Lungs are clear to auscultation and percussion. Breath sounds decreased. HEART: Rate and Rhythm are regular. First and second heart sounds normal. No murmurs, rubs or gallops. ABDOMEN: Abdominal exam reveals normal bowel sounds. Non-tender and non- distended. No evidence of peritonitis. EXTREMITITES: No clubbing, cyanosis, or edema. Objective - Vital Signs Vital signs: Vital Signs Temp 96.9 F L 02/16/18 23:59 Pulse 93 02/17/18 04:00 Resp 16 02/17/18 04:00 BP 129/72 02/17/18 04:00 Pulse Ox 97 02/17/18 04:00 Intake & Output 02/16/18 02/17/18 02/17/18 18:59 06:59 18:59 Intake Total 652 540 Output Total 800 200 Balance -148 340 Weight 78.3 kg Intake: Oral 652 540 Output: Urine 800 200 Other: Voiding Method Toilet Toilet # Voids 3 # Bowel Movements 1 1 - Labs CBC & Chem 7: 02/17/18 06:09 02/17/18 06:09 Labs: Abnormal Lab Results - Last 24 Hours (Table) 02/16/18 02/16/18 02/16/18 Range/Units 11:43 16:31 21:00 RBC (3.80-5.40) m/uL Hgb (11.4-16.0) gm/dL MCV (80.0-100.0) fL MCHC (31.0-37.0) g/dL RDW (11.5-15.5) % Potassium (3.5-5.1) mmol/L BUN (7-17) mg/dL Creatinine (0.52-1.04) mg/dL Glucose (74-99) mg/dL POC Glucose (mg/dL) 127 H 181 H 197 H (75-99) mg/dL Total Protein (6.3-8.2) g/dL Albumin (3.5-5.0) g/dL 02/17/18 02/17/18 Range/Units 06:09 06:09 RBC 3.33 L (3.80-5.40) m/uL Hgb 11.1 L (11.4-16.0) gm/dL MCV 109.1 H (80.0-100.0) fL MCHC 30.7 L (31.0-37.0) g/dL RDW 19.1 H (11.5-15.5) % Potassium 3.4 L (3.5-5.1) mmol/L BUN 60 H (7-17) mg/dL Creatinine 1.99 H (0.52-1.04) mg/dL Glucose 108 H (74-99) mg/dL POC Glucose (mg/dL) (75-99) mg/dL Total Protein 5.9 L (6.3-8.2) g/dL Albumin 3.4 L (3.5-5.0) g/dL Microbiology - Last 24 Hours (Table) 02/15/18 12:22 Urine Culture - Preliminary Urine,Clean Catch Gram Neg Bacilli Assessment and Plan Plan: Assessment: 1. Chronic kidney disease stage IV secondary to nephrosclerosis and cardiorenal syndrome with baseline creatinine near 2. GFR at baseline. 2. Systolic CHF with ejection fraction of 40-45% with moderate to severe mitral regurgitation. 3. Hypokalemia secondary to diuresis. 4. Chronic kidney disease mineral bone disease maintained on calcitriol. 5. Volume overload. Improved. 6. UTI with urine culture positive for gram-negative bacilli maintained on IV Rocephin. Plan: Continue torsemide 20 mg twice daily. Replace potassium. 40 mEq today. Add maintenance potassium supplementation. Anticipate discharge soon. She will need to follow-up as an outpatient in the next 1-2 weeks.
[2018-02-17] MEDS: traMADol 50 MG TAB PO SCH ×3 (10:34→22:00)
[2018-02-17] MEDS: DOCUSATE 100 MG CAP PO SCH ×2 (10:35→19:51)
[2018-02-17] MEDS: FERROUS SULFATE 325 MG TAB PO SCH (10:35)
[2018-02-17] MEDS: CALCITRIOL 0.25 MCG CAP PO SCH (10:35)
[2018-02-17] MEDS: ISOSORBIDE MONONITRATE ER 60 MG TAB.ER.24H PO SCH (10:35)
[2018-02-17] MEDS: METOLAZONE 5 MG TAB PO SCH (10:35)
[2018-02-17] MEDS: TORSEMIDE 20 MG TAB PO SCH ×2 (10:35→14:17)
[2018-02-17] MEDS: CHOLECALCIFEROL 1,000 UNIT TAB PO SCH (10:36)
[2018-02-17] MEDS: RIVAROXABAN 15 MG TAB PO SCH (10:36)
[2018-02-17] MEDS: MAGNESIUM OXIDE 400 MG TAB PO SCH (10:37)
[2018-02-17] MEDS: ALLOPURINOL 100 MG TAB PO SCH (10:38)
[2018-02-17] MEDS: METOPROLOL TARTRATE 25 MG TAB PO SCH ×2 (10:38→19:50)
[2018-02-17] MEDS: VIT A,C & E-LUTEIN-MINERALS 1 EACH TAB PO SCH ×2 (10:38→19:51)
[2018-02-17] MEDS: PSYLLIUM HUSK 100% 6 GM PACKET PO SCH ×2 (10:41→19:49)
[2018-02-17] MEDS: ZINC OXIDE 20% OINT 28.4 GM TUBE TOPICAL SCH ×2 (10:41→19:50)
--- NOTE | 2018-02-17 10:51 | P.PN ---
Subjective Progress Note Date: 02/17/18 Principal diagnosis: CHF secondary to systolic dysfunction This is a pleasant 83-year-old female patient who sees Dr. 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 The patient just discharged from the hospital recently on new medical regimen and the new diuretics. Since then she has been gaining weight very slowly and she was seen in the office recently by Dr. May who did increase the dose of diuretics and in spite of that the patient continues to gain weight very slowly and over the last 3 days she has been feeling short of breath with exertion and also she did develop bilateral lower extremities edema. No chest pain or chest discomfort. No dizziness or lightheadedness and no syncope. The patient stated that she was compliant with her medications and also she has been compliant with her diet and not having any salt whatsoever. The chest x-ray showed findings consistent with CHF. The BNP came in to be elevated as well. The EKG showed A. fib with controlled heart rate. Clearly on physical examination she does have crackles in both lung devlin and also she does have bilateral lower extremities edema worse on the right side probably because of the history of DVT in the right leg. The creatinine is 1.90 which is her baseline. I'll follow-up with the patient today, she denies having any chest pain or discomfort or shortness of breath that she has been up and around. She still have bilateral lower extremities edema worse on the right side. The blood pressure is better. The patient would like to go home. Objective - Vital Signs Vital signs: Vital Signs Temp 96.9 F L 02/16/18 23:59 Pulse 93 02/17/18 04:00 Resp 16 02/17/18 04:00 BP 129/72 02/17/18 04:00 Pulse Ox 97 02/17/18 04:00 Intake & Output 02/16/18 02/17/18 02/17/18 18:59 06:59 18:59 Intake Total 652 540 Output Total 800 200 Balance -148 340 Weight 78.3 kg Intake: Oral 652 540 Output: Urine 800 200 Other: Voiding Method Toilet Toilet # Voids 3 # Bowel Movements 1 1 - Constitutional General appearance: Present: no acute distress - Respiratory Respiratory: bilateral: CTA - Cardiovascular Heart sounds: normal: S1, S2 - Labs CBC & Chem 7: 02/17/18 06:09 02/17/18 06:09 Labs: Abnormal Lab Results - Last 24 Hours (Table) 02/16/18 02/16/18 02/16/18 Range/Units 11:43 16:31 21:00 RBC (3.80-5.40) m/uL Hgb (11.4-16.0) gm/dL MCV (80.0-100.0) fL MCHC (31.0-37.0) g/dL RDW (11.5-15.5) % Potassium (3.5-5.1) mmol/L BUN (7-17) mg/dL Creatinine (0.52-1.04) mg/dL Glucose (74-99) mg/dL POC Glucose (mg/dL) 127 H 181 H 197 H (75-99) mg/dL Total Protein (6.3-8.2) g/dL Albumin (3.5-5.0) g/dL 02/17/18 02/17/18 Range/Units 06:09 06:09 RBC 3.33 L (3.80-5.40) m/uL Hgb 11.1 L (11.4-16.0) gm/dL MCV 109.1 H (80.0-100.0) fL MCHC 30.7 L (31.0-37.0) g/dL RDW 19.1 H (11.5-15.5) % Potassium 3.4 L (3.5-5.1) mmol/L BUN 60 H (7-17) mg/dL Creatinine 1.99 H (0.52-1.04) mg/dL Glucose 108 H (74-99) mg/dL POC Glucose (mg/dL) (75-99) mg/dL Total Protein 5.9 L (6.3-8.2) g/dL Albumin 3.4 L (3.5-5.0) g/dL Microbiology - Last 24 Hours (Table) 07/12/18 12:22 Urine Culture - Preliminary Urine,Clean Catch Gram Neg Bacilli Assessment and Plan Assessment: Assessment #1 congestive heart failure exacerbation secondary to systolic dysfunction #2 chronic atrial fibrillation was controlled heart rate #3 history of right leg DVT #4 moderate to severe mitral regurgitation #5 mild aortic stenosis #6 cardiomyopathy with an EF around 40%. Plan #1 the blood pressure has improved after we decrease the dose of metoprolol and after she was started on midodrine and #2 the kidney function continues to be stable with a creatinine of 1.90 #3 follow-up with the patient.
[2018-02-17 11:56] LABS: Glucose,Whole Blood 189 mg/dL (75-99)
--- NOTE | 2018-02-17 12:10 | P.PN ---
Subjective Progress Note Date: 02/17/18 Trina Carrillo is an 83-year-old female who presented to [facility] emergency room with a chief complaint of worsening shortness of breath patient has a known history of congestive heart failure was cardiomyopathy she also has a known history of chronic kidney disease she was last admitted to [facility] 3 weeks ago, she has been following was Dr. May room service manager and Dr. Escobar packing and shipping clerk as outpatient, she states that recently Lasix was discontinued and patient was started on torsemide 10 mg by mouth daily she states that her weight has been going up gradually, she gained 19 pounds in the last 3 weeks, she started having worsening shortness of breath, and eventually her family decided to bring her back to emergency room. She has a known history of atrial fibrillation with controlled heart rate, she is maintained on Xarelto 15 mg daily for stroke prevention, her last echocardiogram was done on 12/04/2017 and revealed an ejection fraction of 40-45 %. 02/12/2018 patient still having lower extremity edema and shortness of breath with activity. Nephrology is consulted, patient follows with Dr. Bernal outpatient and is known to her. Patient denies any chest pain. Denies any nausea or vomiting. Denies any bowel movement changes or urinary symptoms. Patient does reports that she feels she should be urinating more often than she has with the IV Lasix 02/13/2018 patient was started on IV Lasix drip yesterday. She's had 1 pound weight loss. Patient denies any chest pain. Still having some lower extremity edema. Shortness of breath is improving. Denies any nausea or vomiting. Reports bowel movement. Denies any difficulty urinating. On 02/14/2018 patient remains on IV Lasix drip. Patient weight down from 81.5 kg to 80.2 kg this a.m. patient states the shortness of breath is significantly improving along with lower extremity edema. Denies chest pain or shortness of breath at this time. Creatinine increasing to 2.07, discussed case with nurse who spoke to Dr. Escobar. Per nephrology would like to keep patient on Lasix drip for 1 more day. 02/15/2018 Lasix drip discontinued today by nephrology. They have started patient on torsemide 20 mg twice a day and Zaroxolyn 2.5 mg daily. Patient's weight has decreased from 80.2 kg to 79.8 kg. She denies any shortness of breath. Has had some decrease in the lower extremity swelling. She is complaining of some burning when she urinates. However, she feels it's more due to skin irritation from the frequent urinating from the Lasix. However, we' ll check a urinalysis with culture. Also will supply zinc oxide to the irritated skin 02/16/2018 patient still having lower extremity edema. Weight increased from 79.8 kg to 80.1 kg. Denies shortness of breath. Blood pressure 97/51. Patient seen by nephrology. The recommending patient stay 1 more day. Zaroxolyn increased to 5 mg daily. Patient found to have evidence of a UTI started on Rocephin. Awaiting urine culture. On 02/17/2018 patient is alert and oriented 3 still having significant lower extremity edema her weight today is 78.3 kg. She is ambulating and her shortness of breath has improved, she denies any chest pain no fever or chills no headache or dizziness no nausea or vomiting no abdominal pain and no urinary symptoms Objective - Vital Signs Vital signs: Vital Signs Temp 96.9 F L 02/16/18 23:59 Pulse 93 02/17/18 04:00 Resp 16 02/17/18 04:00 BP 129/72 02/17/18 04:00 Pulse Ox 97 02/17/18 04:00 Intake & Output 02/16/18 02/17/18 02/17/18 18:59 06:59 18:59 Intake Total 652 540 Output Total 800 200 Balance -148 340 Weight 78.3 kg Intake: Oral 652 540 Output: Urine 800 200 Other: Voiding Method Toilet Toilet # Voids 3 # Bowel Movements 1 1 - Exam Head normocephalic and atraumatic Neck supple no JVD no goiter Lungs diminished in the bases bilaterally Heart irregular, no gallops no murmurs Abdomen is soft nontender nondistended positive bowel sounds no hepatosplenomegaly Extremities +1 pitting edema bilaterally Neuro alert and orientated to 3 - Labs CBC & Chem 7: 02/17/18 06:09 02/17/18 06:09 Labs: Abnormal Lab Results - Last 24 Hours (Table) 02/16/18 02/16/18 02/17/18 Range/Units 16:31 21:00 06:09 RBC 3.33 L (3.80-5.40) m/uL Hgb 11.1 L (11.4-16.0) gm/dL MCV 109.1 H (80.0-100.0) fL MCHC 30.7 L (31.0-37.0) g/dL RDW 19.1 H (11.5-15.5) % Potassium (3.5-5.1) mmol/L BUN (7-17) mg/dL Creatinine (0.52-1.04) mg/dL Glucose (74-99) mg/dL POC Glucose (mg/dL) 181 H 197 H (75-99) mg/dL Total Protein (6.3-8.2) g/dL Albumin (3.5-5.0) g/dL 02/17/18 02/17/18 Range/Units 06:09 11:52 RBC (3.80-5.40) m/uL Hgb (11.4-16.0) gm/dL MCV (80.0-100.0) fL MCHC (31.0-37.0) g/dL RDW (11.5-15.5) % Potassium 3.4 L (3.5-5.1) mmol/L BUN 60 H (7-17) mg/dL Creatinine 1.99 H (0.52-1.04) mg/dL Glucose 108 H (74-99) mg/dL POC Glucose (mg/dL) 189 H (75-99) mg/dL Total Protein 5.9 L (6.3-8.2) g/dL Albumin 3.4 L (3.5-5.0) g/dL Microbiology - Last 24 Hours (Table) 02/15/18 12:22 Urine Culture - Preliminary Urine,Clean Catch Gram Neg Bacilli Assessment and Plan Plan: #1 acute on chronic systolic congestive heart failure exacerbation: Nephrology has discontinue the Lasix drip. Started patient on torsemide 20 g twice a day yesterday. Nephrology has increase the Zaroxolyn to 5 mg daily. Continue to monitor daily weights #2 underlying history of cardiomyopathy with decreased ejection fraction to 40- 45% #3 underlying history of atrial fibrillation heart rate is well-controlled #4 underlying history of moderate to severe mitral regurgitation #5 underlying history of chronic kidney disease #6 underlying history of hypertension #7 underlying history of diabetes mellitus, type II A1c 7.1 #8 underlying history of gout #9 underlying history of chronic back pain #10 UTI: Continue Rocephin 1 g daily. Await urine culture For DVT prophylaxis patient is on Xarelto, for GI prophylaxis patient on pantoprazole Patient is improving gradually possible discharge to home in the next 1-2 days medications are still being adjusted by cardiology and nephrology
[2018-02-17] MEDS: POTASSIUM CHLORIDE ER 10 MEQ TAB.ER.PRT PO SCH (14:17)
[2018-02-17] MEDS: LINAGLIPTIN 5 MG TABLET PO SCH (14:17)
[2018-02-17 17:03] LABS: Glucose,Whole Blood 133 mg/dL (75-99)
[2018-02-17] MEDS: cefTRIAXone IN SWFI 1,000 MG/10 ML SYRINGE IVP SCH (17:36)
[2018-02-17 20:54] LABS: Glucose,Whole Blood 159 mg/dL (75-99)
[2018-02-18] MEDS: MEROPENEM 1 GM in SODIUM CHLORIDE 0.9% 100 ML IVPB SCH ×4 (01:15→23:16)
[2018-02-18 05:49] VITALS: RESP 18
[2018-02-18 06:19] LABS: Glucose,Whole Blood 122 mg/dL (75-99)
[2018-02-18] MEDS: AMMONIUM LACTATE 12% CREAM 140 GM TUBE TOPICAL SCH ×2 (06:53→20:26)
[2018-02-18] MEDS: SIMBRINZA BOTH EYES SCH ×2 (06:55→20:26)
[2018-02-18] MEDS: PANTOPRAZOLE 40 MG TABLET PO SCH (06:56)
[2018-02-18] MEDS: MIDODRINE 5 MG TAB PO SCH ×2 (06:56→18:02)
[2018-02-18 07:05] LABS: Albumin 3.4 g/dL (3.5-5.0); Calcium 9.7 mg/dL (8.4-10.2); Magnesium 1.8 mg/dL (1.6-2.3); Potassium 3.5 mmol/L (3.5-5.1); Total Bilirubin 0.5 mg/dL (0.2-1.3); Total Protein 6.1 g/dL (6.3-8.2)
[2018-02-18 07:21] LABS: Anisocytosis Slight; Basophils % (A) 1 %; Eosinophils # (A) 0.1 k/uL (0-0.7); Eosinophils % (A) 2 %; HCT 35.7 % (34.0-46.0); HGB 11.1 gm/dL (11.4-16.0); Hypochromasia Moderate; Lymphocytes # (A) 1.5 k/uL (1.0-4.8); Lymphocytes % (A) 22 %; MCH 33.6 pg (25.0-35.0); MCV 108.3 fL (80.0-100.0); Macrocytosis Marked; Mean Platelet Volume 8.3; Monocytes # (A) 0.4 k/uL (0-1.0); Monocytes % (A) 6 %; Neutrophils # (A) 4.3 k/uL (1.3-7.7); Neutrophils % (A) 66 %; Platelet Count 160 k/uL (150-450); RDW 18.8 % (11.5-15.5); WBC 6.6 k/uL (3.8-10.6)
[2018-02-18] MEDS: ISOSORBIDE MONONITRATE ER 60 MG TAB.ER.24H PO SCH (08:12)
[2018-02-18] MEDS: POTASSIUM CHLORIDE ER 10 MEQ TAB.ER.PRT PO SCH (08:12)
[2018-02-18] MEDS: MAGNESIUM OXIDE 400 MG TAB PO SCH (08:12)
[2018-02-18] MEDS: METOLAZONE 5 MG TAB PO SCH (08:12)
[2018-02-18] MEDS: ALLOPURINOL 100 MG TAB PO SCH (08:12)
[2018-02-18] MEDS: CHOLECALCIFEROL 1,000 UNIT TAB PO SCH (08:12)
[2018-02-18] MEDS: CALCITRIOL 0.25 MCG CAP PO SCH (08:12)
[2018-02-18] MEDS: FERROUS SULFATE 325 MG TAB PO SCH (08:13)
[2018-02-18] MEDS: METOPROLOL TARTRATE 25 MG TAB PO SCH ×2 (08:13→20:27)
[2018-02-18] MEDS: traMADol 50 MG TAB PO SCH ×3 (08:13→21:59)
[2018-02-18] MEDS: VIT A,C & E-LUTEIN-MINERALS 1 EACH TAB PO SCH ×2 (08:13→20:27)
[2018-02-18] MEDS: RIVAROXABAN 15 MG TAB PO SCH (08:13)
[2018-02-18] MEDS: TORSEMIDE 20 MG TAB PO SCH ×2 (08:13→15:42)
[2018-02-18] MEDS: DOCUSATE 100 MG CAP PO SCH ×2 (08:14→20:26)
[2018-02-18] MEDS: ZINC OXIDE 20% OINT 28.4 GM TUBE TOPICAL SCH ×2 (08:19→20:27)
[2018-02-18] MEDS: PSYLLIUM HUSK 100% 6 GM PACKET PO SCH ×2 (08:19→20:28)
[2018-02-18] MEDS ORDERED: POTASSIUM CHLORIDE ER 20 MEQ TAB.ER PO STA (09:27)
--- NOTE | 2018-02-18 09:46 | P.PN ---
Subjective Patient is seen in follow-up for chronic kidney disease. Patient has chronic kidney disease stage IV with baseline creatinine near 2. Renal function a little worse with creatinine at 2.3 today. Edema is gradually improving. No vomiting or diarrhea. Currently being treated for ESBL E. coli UTI. Vital signs are stable. General: The patient appeared well nourished and normally developed. HEENT: Head exam is unremarkable. Neck is without jugular venous distension. LUNGS: Lungs are clear to auscultation and percussion. Breath sounds decreased. HEART: Rate and Rhythm are regular. First and second heart sounds normal. No murmurs, rubs or gallops. ABDOMEN: Abdominal exam reveals normal bowel sounds. Non-tender and non- distended. No evidence of peritonitis. EXTREMITITES: 1+ edema. Objective - Vital Signs Vital signs: Vital Signs Temp 98 F 02/18/18 08:00 Pulse 96 02/18/18 08:00 Resp 18 02/18/18 08:00 BP 116/68 02/18/18 08:00 Pulse Ox 95 02/18/18 08:00 Intake & Output 02/17/18 02/18/18 02/18/18 18:59 06:59 18:59 Intake Total 240 240 Output Total 1500 Balance -1260 240 Weight 77.7 kg Intake: Oral 240 240 Output: Urine 1500 Other: Voiding Method Toilet # Voids 2 # Bowel Movements 0 - Labs CBC & Chem 7: 02/18/18 06:09 02/18/18 06:09 Labs: Abnormal Lab Results - Last 24 Hours (Table) 02/17/18 02/17/18 02/17/18 Range/Units 11:52 17:00 20:43 RBC (3.80-5.40) m/uL Hgb (11.4-16.0) gm/dL MCV (80.0-100.0) fL RDW (11.5-15.5) % BUN (7-17) mg/dL Creatinine (0.52-1.04) mg/dL Glucose (74-99) mg/dL POC Glucose (mg/dL) 189 H 133 H 159 H (75-99) mg/dL Total Protein (6.3-8.2) g/dL Albumin (3.5-5.0) g/dL 02/18/18 02/18/18 02/18/18 Range/Units 06:09 06:09 06:16 RBC 3.30 L (3.80-5.40) m/uL Hgb 11.1 L (11.4-16.0) gm/dL MCV 108.3 H (80.0-100.0) fL RDW 18.8 H (11.5-15.5) % BUN 65 H (7-17) mg/dL Creatinine 2.31 H (0.52-1.04) mg/dL Glucose 113 H (74-99) mg/dL POC Glucose (mg/dL) 122 H (75-99) mg/dL Total Protein 6.1 L (6.3-8.2) g/dL Albumin 3.4 L (3.5-5.0) g/dL Microbiology - Last 24 Hours (Table) 02/15/18 12:22 Urine Culture - Final Urine,Clean Catch Escherichia coli Assessment and Plan Plan: Assessment: 1. Chronic kidney disease stage IV secondary to nephrosclerosis and cardiorenal syndrome with baseline creatinine near 2. 2. Systolic CHF with ejection fraction of 40-45% with moderate to severe mitral regurgitation. 3. Hypokalemia secondary to diuresis. 4. Chronic kidney disease mineral bone disease maintained on calcitriol. 5. Volume overload. Improved. 6. UTI with urine culture positive ESBL E. coli maintained on IV antibiotics. 7. Acute kidney injury secondary to diuresis and UTI. Creatinine up to 2.3 today. Plan: Continue torsemide 20 mg twice daily. Replace potassium. 40 mEq today. Continue maintenance potassium supplementation. Continue to monitor renal function and urine output. Repeat electrolytes in the morning.
--- NOTE | 2018-02-18 10:52 | P.PN ---
Subjective Progress Note Date: 02/18/18 Principal diagnosis: CHF secondary to systolic dysfunction This is a pleasant 83-year-old female patient who sees Dr. 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 The patient just discharged from the hospital recently on new medical regimen and the new diuretics. Since then she has been gaining weight very slowly and she was seen in the office recently by Dr. May who did increase the dose of diuretics and in spite of that the patient continues to gain weight very slowly and over the last 3 days she has been feeling short of breath with exertion and also she did develop bilateral lower extremities edema. No chest pain or chest discomfort. No dizziness or lightheadedness and no syncope. The patient stated that she was compliant with her medications and also she has been compliant with her diet and not having any salt whatsoever. The chest x-ray showed findings consistent with CHF. The BNP came in to be elevated as well. The EKG showed A. fib with controlled heart rate. Clearly on physical examination she does have crackles in both lung devlin and also she does have bilateral lower extremities edema worse on the right side probably because of the history of DVT in the right leg. The creatinine is 1.90 which is her baseline. I'll follow-up with the patient today, she denies having any chest pain or discomfort or shortness of breath that she has been up and around. She still have bilateral lower extremities edema worse on the right side. The blood pressure is better. She was found to have ESBL in the urine and for that reason the patient stayed in the hospital and currently she is on IV antibiotic. From the cardiac standpoint she seems to be stable. Objective - Vital Signs Vital signs: Vital Signs Temp 98 F 02/18/18 08:00 Pulse 96 02/18/18 08:00 Resp 18 02/18/18 08:00 BP 116/68 02/18/18 08:00 Pulse Ox 95 02/18/18 08:00 Intake & Output 02/17/18 02/18/18 02/18/18 18:59 06:59 18:59 Intake Total 240 240 Output Total 1500 Balance -1260 240 Weight 77.7 kg Intake: Oral 240 240 Output: Urine 1500 Other: Voiding Method Toilet # Voids 2 # Bowel Movements 0 - Labs CBC & Chem 7: 02/18/18 06:09 02/18/18 06:09 Labs: Abnormal Lab Results - Last 24 Hours (Table) 02/17/18 02/17/18 02/17/18 Range/Units 11:52 17:00 20:43 RBC (3.80-5.40) m/uL Hgb (11.4-16.0) gm/dL MCV (80.0-100.0) fL RDW (11.5-15.5) % BUN (7-17) mg/dL Creatinine (0.52-1.04) mg/dL Glucose (74-99) mg/dL POC Glucose (mg/dL) 189 H 133 H 159 H (75-99) mg/dL Total Protein (6.3-8.2) g/dL Albumin (3.5-5.0) g/dL 02/18/18 02/18/18 02/18/18 Range/Units 06:09 06:09 06:16 RBC 3.30 L (3.80-5.40) m/uL Hgb 11.1 L (11.4-16.0) gm/dL MCV 108.3 H (80.0-100.0) fL RDW 18.8 H (11.5-15.5) % BUN 65 H (7-17) mg/dL Creatinine 2.31 H (0.52-1.04) mg/dL Glucose 113 H (74-99) mg/dL POC Glucose (mg/dL) 122 H (75-99) mg/dL Total Protein 6.1 L (6.3-8.2) g/dL Albumin 3.4 L (3.5-5.0) g/dL Microbiology - Last 24 Hours (Table) 02/15/18 12:22 Urine Culture - Final Urine,Clean Catch Escherichia coli Assessment and Plan Assessment: Assessment #1 congestive heart failure exacerbation secondary to systolic dysfunction #2 chronic atrial fibrillation was controlled heart rate #3 history of right leg DVT #4 moderate to severe mitral regurgitation #5 mild aortic stenosis #6 cardiomyopathy with an EF around 40%. Plan #1 the blood pressure has improved after we decrease the dose of metoprolol and after she was started on midodrine and #2 the kidney function continues to be stable with a creatinine of 1.90 #3 the patient can be discharged home.
[2018-02-18 11:46] LABS: Glucose,Whole Blood 122 mg/dL (75-99)
--- NOTE | 2018-02-18 13:21 | P.PN ---
Subjective Progress Note Date: 02/18/18 Trina Carrillo is an 83-year-old female who presented to [facility] emergency room with a chief complaint of worsening shortness of breath patient has a known history of congestive heart failure was cardiomyopathy she also has a known history of chronic kidney disease she was last admitted to [facility] 3 weeks ago, she has been following was Dr. May histology technologist and Dr. Escobar surgical attendant as outpatient, she states that recently Lasix was discontinued and patient was started on torsemide 10 mg by mouth daily she states that her weight has been going up gradually, she gained 19 pounds in the last 3 weeks, she started having worsening shortness of breath, and eventually her family decided to bring her back to emergency room. She has a known history of atrial fibrillation with controlled heart rate, she is maintained on Xarelto 15 mg daily for stroke prevention, her last echocardiogram was done on 12/04/2017 and revealed an ejection fraction of 40-45 %. 02/12/2018 patient still having lower extremity edema and shortness of breath with activity. Nephrology is consulted, patient follows with Dr. Bernal outpatient and is known to her. Patient denies any chest pain. Denies any nausea or vomiting. Denies any bowel movement changes or urinary symptoms. Patient does reports that she feels she should be urinating more often than she has with the IV Lasix 02/13/2018 patient was started on IV Lasix drip yesterday. She's had 1 pound weight loss. Patient denies any chest pain. Still having some lower extremity edema. Shortness of breath is improving. Denies any nausea or vomiting. Reports bowel movement. Denies any difficulty urinating. On 02/14/2018 patient remains on IV Lasix drip. Patient weight down from 81.5 kg to 80.2 kg this a.m. patient states the shortness of breath is significantly improving along with lower extremity edema. Denies chest pain or shortness of breath at this time. Creatinine increasing to 2.07, discussed case with nurse who spoke to Dr. Escobar. Per nephrology would like to keep patient on Lasix drip for 1 more day. 02/15/2018 Lasix drip discontinued today by nephrology. They have started patient on torsemide 20 mg twice a day and Zaroxolyn 2.5 mg daily. Patient's weight has decreased from 80.2 kg to 79.8 kg. She denies any shortness of breath. Has had some decrease in the lower extremity swelling. She is complaining of some burning when she urinates. However, she feels it's more due to skin irritation from the frequent urinating from the Lasix. However, we' ll check a urinalysis with culture. Also will supply zinc oxide to the irritated skin 02/16/2018 patient still having lower extremity edema. Weight increased from 79.8 kg to 80.1 kg. Denies shortness of breath. Blood pressure 97/51. Patient seen by nephrology. The recommending patient stay 1 more day. Zaroxolyn increased to 5 mg daily. Patient found to have evidence of a UTI started on Rocephin. Awaiting urine culture. On 02/17/2018 patient is alert and oriented 3 still having significant lower extremity edema her weight today is 78.3 kg. She is ambulating and her shortness of breath has improved, she denies any chest pain no fever or chills no headache or dizziness no nausea or vomiting no abdominal pain and no urinary symptoms On 02/18/2018 patient is alert and oriented 3 in no apparent distress lower extremity edema is improving, weight is down to 77.7 kg BUN is up to 65 creatinine to 2.31 shortness of breath improved significantly since admission, urine culture now is positive for ESBL IV Rocephin discontinued yesterday and patient was started on meropenem infectious disease consultation requested Objective - Vital Signs Vital signs: Vital Signs Temp 98 F 02/18/18 08:00 Pulse 96 02/18/18 08:00 Resp 18 02/18/18 08:00 BP 116/68 02/18/18 08:00 Pulse Ox 95 02/18/18 08:00 Intake & Output 02/17/18 02/18/18 02/18/18 18:59 06:59 18:59 Intake Total 240 240 Output Total 1500 Balance -1260 240 Weight 77.7 kg Intake: Oral 240 240 Output: Urine 1500 Other: Voiding Method Toilet # Voids 2 # Bowel Movements 0 - Exam Head normocephalic and atraumatic Neck supple no JVD no goiter Lungs diminished in the bases bilaterally Heart irregular, no gallops no murmurs Abdomen is soft nontender nondistended positive bowel sounds no hepatosplenomegaly Extremities +1 pitting edema bilaterally Neuro alert and orientated to 3 - Labs CBC & Chem 7: 02/18/18 06:09 02/18/18 06:09 Labs: Abnormal Lab Results - Last 24 Hours (Table) 02/17/18 02/17/18 02/18/18 Range/Units 17:00 20:43 06:09 RBC 3.30 L (3.80-5.40) m/uL Hgb 11.1 L (11.4-16.0) gm/dL MCV 108.3 H (80.0-100.0) fL RDW 18.8 H (11.5-15.5) % BUN (7-17) mg/dL Creatinine (0.52-1.04) mg/dL Glucose (74-99) mg/dL POC Glucose (mg/dL) 133 H 159 H (75-99) mg/dL Total Protein (6.3-8.2) g/dL Albumin (3.5-5.0) g/dL 02/18/18 02/18/18 02/18/18 Range/Units 06:09 06:16 11:42 RBC (3.80-5.40) m/uL Hgb (11.4-16.0) gm/dL MCV (80.0-100.0) fL RDW (11.5-15.5) % BUN 65 H (7-17) mg/dL Creatinine 2.31 H (0.52-1.04) mg/dL Glucose 113 H (74-99) mg/dL POC Glucose (mg/dL) 122 H 122 H (75-99) mg/dL Total Protein 6.1 L (6.3-8.2) g/dL Albumin 3.4 L (3.5-5.0) g/dL Microbiology - Last 24 Hours (Table) 02/15/18 12:22 Urine Culture - Final Urine,Clean Catch Escherichia coli Assessment and Plan Plan: #1 acute on chronic systolic congestive heart failure exacerbation: Nephrology has discontinue the Lasix drip. Started patient on torsemide 20 g twice a day yesterday. Nephrology has increase the Zaroxolyn to 5 mg daily. Continue to monitor daily weights, continue to monitor kidney function #2 underlying history of cardiomyopathy with decreased ejection fraction to 40- 45% #3 underlying history of atrial fibrillation heart rate is well-controlled #4 underlying history of moderate to severe mitral regurgitation #5 underlying history of chronic kidney disease #6 underlying history of hypertension #7 underlying history of diabetes mellitus, type II A1c 7.1 #8 underlying history of gout #9 underlying history of chronic back pain #10 UTI urine culture positive for ESBL IV Rocephin discontinued patient was started on IV meropenem infectious disease consultation was requested For DVT prophylaxis patient is on Xarelto, for GI prophylaxis patient on pantoprazole Patient is improving gradually possible discharge to home in the next 1-2 days medications are still being adjusted by cardiology and nephrology
[2018-02-18] MEDS: LINAGLIPTIN 5 MG TABLET PO SCH (15:42)
[2018-02-18 16:59] LABS: Glucose,Whole Blood 152 mg/dL (75-99)
[2018-02-18 21:35] LABS: Glucose,Whole Blood 182 mg/dL (75-99)
[2018-02-19] MEDS: SIMBRINZA BOTH EYES SCH (06:03)
[2018-02-19] MEDS: AMMONIUM LACTATE 12% CREAM 140 GM TUBE TOPICAL SCH (06:03)
[2018-02-19] MEDS: MIDODRINE 5 MG TAB PO SCH ×4 (06:04→15:22)
[2018-02-19] MEDS: PANTOPRAZOLE 40 MG TABLET PO SCH (06:04)
[2018-02-19 06:45] LABS: Glucose,Whole Blood 134 mg/dL (75-99)
[2018-02-19 07:28] LABS: Anisocytosis Slight; Basophils % (A) 0 %; Eosinophils # (A) 0.2 k/uL (0-0.7); Eosinophils % (A) 3 %; HGB 11.5 gm/dL (11.4-16.0); Hypochromasia Slight; Lymphocytes # (A) 1.6 k/uL (1.0-4.8); Lymphocytes % (A) 22 %; MCH 33.1 pg (25.0-35.0); MCHC 31.1 g/dL (31.0-37.0); MCV 106.5 fL (80.0-100.0); Macrocytosis Marked; Mean Platelet Volume 8.3; Monocytes # (A) 0.4 k/uL (0-1.0); Monocytes % (A) 5 %; Neutrophils # (A) 4.9 k/uL (1.3-7.7); Neutrophils % (A) 67 %; Platelet Count 180 k/uL (150-450); RBC 3.47 m/uL (3.80-5.40); RDW 18.6 % (11.5-15.5); WBC 7.3 k/uL (3.8-10.6)
[2018-02-19 07:51] LABS: Albumin 3.7 g/dL (3.5-5.0); Potassium 3.2 mmol/L (3.5-5.1); Total Bilirubin 0.6 mg/dL (0.2-1.3); Total Protein 6.4 g/dL (6.3-8.2)
[2018-02-19] MEDS: ALLOPURINOL 100 MG TAB PO SCH (07:53)
[2018-02-19] MEDS: FERROUS SULFATE 325 MG TAB PO SCH (07:54)
[2018-02-19] MEDS: CHOLECALCIFEROL 1,000 UNIT TAB PO SCH (07:54)
[2018-02-19] MEDS: ISOSORBIDE MONONITRATE ER 60 MG TAB.ER.24H PO SCH (07:55)
[2018-02-19] MEDS: RIVAROXABAN 15 MG TAB PO SCH (07:55)
[2018-02-19] MEDS: MAGNESIUM OXIDE 400 MG TAB PO SCH (07:55)
[2018-02-19] MEDS: DOCUSATE 100 MG CAP PO SCH (07:55)
[2018-02-19] MEDS: TORSEMIDE 20 MG TAB PO SCH ×2 (07:56→15:22)
[2018-02-19] MEDS: METOPROLOL TARTRATE 25 MG TAB PO SCH (07:56)
[2018-02-19] MEDS: METOLAZONE 5 MG TAB PO SCH (07:56)
[2018-02-19] MEDS: POTASSIUM CHLORIDE ER 10 MEQ TAB.ER.PRT PO SCH (07:56)
[2018-02-19] MEDS: VIT A,C & E-LUTEIN-MINERALS 1 EACH TAB PO SCH (07:57)
[2018-02-19] MEDS: MEROPENEM 1 GM in SODIUM CHLORIDE 0.9% 100 ML IVPB SCH (08:00)
[2018-02-19] MEDS: traMADol 50 MG TAB PO SCH (08:00)
[2018-02-19] MEDS: PSYLLIUM HUSK 100% 6 GM PACKET PO SCH (08:01)
[2018-02-19] MEDS ORDERED: POTASSIUM CHLORIDE ER 20 MEQ TAB.ER PO STA (08:10)
[2018-02-19 08:25] LABS: Poikilocytosis (M) Present
--- NOTE | 2018-02-19 08:27 | P.PN ---
Subjective Patient is seen in follow-up for chronic kidney disease. Patient has chronic kidney disease stage IV with baseline creatinine near 2. Renal function a little worse with creatinine at 2.43 today. Edema is gradually improving. No vomiting or diarrhea. Currently being treated for ESBL E. coli UTI. She is eager to go home. Vital signs are stable. General: The patient appeared well nourished and normally developed. HEENT: Head exam is unremarkable. Neck is without jugular venous distension. LUNGS: Lungs are clear to auscultation and percussion. Breath sounds decreased. HEART: Rate and Rhythm are regular. First and second heart sounds normal. No murmurs, rubs or gallops. ABDOMEN: Abdominal exam reveals normal bowel sounds. Non-tender and non- distended. No evidence of peritonitis. EXTREMITITES: 1+ edema. Objective - Vital Signs Vital signs: Vital Signs Temp 97.2 F L 02/19/18 04:00 Pulse 94 02/19/18 04:00 Resp 18 02/19/18 04:00 BP 101/57 02/19/18 04:00 Pulse Ox 98 02/19/18 04:00 Intake & Output 02/18/18 02/19/18 02/19/18 18:59 06:59 18:59 Intake Total 480 100 180 Balance 480 100 180 Weight 76.3 kg Intake: Intake, IV Titration 100 Amount Meropenem 1 gm In Sodium 100 Chloride 0.9% 100 ml @ 200 mls/hr IVPB Q8HR [facility] Rx#:[id number] Oral 480 180 Other: Voiding Method Toilet Toilet # Voids 1 1 - Labs CBC & Chem 7: 02/19/18 06:35 02/19/18 06:35 Labs: Abnormal Lab Results - Last 24 Hours (Table) 02/18/18 02/18/18 02/18/18 Range/Units 11:42 16:57 21:15 RBC (3.80-5.40) m/uL MCV (80.0-100.0) fL RDW (11.5-15.5) % Potassium (3.5-5.1) mmol/L Chloride (98-107) mmol/L BUN (7-17) mg/dL Creatinine (0.52-1.04) mg/dL Glucose (74-99) mg/dL POC Glucose (mg/dL) 122 H 152 H 182 H (75-99) mg/dL 02/19/18 02/19/18 02/19/18 Range/Units 06:35 06:35 06:41 RBC 3.47 L (3.80-5.40) m/uL MCV 106.5 H (80.0-100.0) fL RDW 18.6 H (11.5-15.5) % Potassium 3.2 L (3.5-5.1) mmol/L Chloride 97 L (98-107) mmol/L BUN 66 H (7-17) mg/dL Creatinine 2.43 H (0.52-1.04) mg/dL Glucose 118 H (74-99) mg/dL POC Glucose (mg/dL) 134 H (75-99) mg/dL Microbiology - Last 24 Hours (Table) 02/15/18 12:22 Urine Culture - Final Urine,Clean Catch Escherichia coli Assessment and Plan Plan: Assessment: 1. Chronic kidney disease stage IV secondary to nephrosclerosis and cardiorenal syndrome with baseline creatinine near 2. 2. Systolic CHF with ejection fraction of 40-45% with moderate to severe mitral regurgitation. 3. Hypokalemia secondary to diuresis. 4. Chronic kidney disease mineral bone disease maintained on calcitriol. 5. Volume overload. Improved. 6. UTI with urine culture positive ESBL E. coli maintained on IV antibiotics. 7. Acute kidney injury secondary to diuresis and UTI. Creatinine up to 2.43 today. Plan: Continue torsemide 20 mg twice daily. Replace potassium. 40 mEq today. Continue maintenance potassium supplementation - increased to 20 meq daily. Continue to monitor renal function and urine output. Repeat electrolytes in the morning. Increase midodrine to 5 mg 3 times daily. She will need to get a BMP checked within 2-3 days of discharge and follow-up as an outpatient within 1 week.
[2018-02-19] MEDS ORDERED: POTASSIUM CHLORIDE ER 20 MEQ TAB.ER PO SCH (09:00)
--- NOTE | 2018-02-19 09:04 | P.PN ---
Subjective Progress Note Date: 02/19/18 Principal diagnosis: CHF secondary to systolic dysfunction This is a pleasant 83-year-old female patient who sees Dr. 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 The patient just discharged from the hospital recently on new medical regimen and the new diuretics. Since then she has been gaining weight very slowly and she was seen in the office recently by Dr. May who did increase the dose of diuretics and in spite of that the patient continues to gain weight very slowly and over the last 3 days she has been feeling short of breath with exertion and also she did develop bilateral lower extremities edema. No chest pain or chest discomfort. No dizziness or lightheadedness and no syncope. The patient stated that she was compliant with her medications and also she has been compliant with her diet and not having any salt whatsoever. The chest x-ray showed findings consistent with CHF. The BNP came in to be elevated as well. The EKG showed A. fib with controlled heart rate. Clearly on physical examination she does have crackles in both lung devlin and also she does have bilateral lower extremities edema worse on the right side probably because of the history of DVT in the right leg. The creatinine is 1.90 which is her baseline. I'll follow-up with the patient today, she denies having any chest pain or discomfort or shortness of breath that she has been up and around. She still have bilateral lower extremities edema worse on the right side. The blood pressure is better. She was found to have ESBL in the urine and for that reason the patient stayed in the hospital and currently she is on IV antibiotic. From the cardiac standpoint she seems to be stable. The patient can be discharged home. Objective - Vital Signs Vital signs: Vital Signs Temp 97.2 F L 02/19/18 04:00 Pulse 94 02/19/18 04:00 Resp 18 02/19/18 04:00 BP 101/57 02/19/18 04:00 Pulse Ox 98 02/19/18 04:00 Intake & Output 07/02/19/18 02/19/18 18:59 06:59 18:59 Intake Total 480 100 180 Balance 480 100 180 Weight 76.3 kg Intake: Intake, IV Titration 100 Amount Meropenem 1 gm In Sodium 100 Chloride 0.9% 100 ml @ 200 mls/hr IVPB Q8HR [facility] Rx#:[id number] Oral 480 180 Other: Voiding Method Toilet Toilet # Voids 1 1 - Constitutional General appearance: Present: no acute distress - Respiratory Respiratory: bilateral: CTA - Cardiovascular Rhythm: regular Heart sounds: normal: S1, S2 - Labs CBC & Chem 7: 02/19/18 06:35 02/19/18 06:35 Labs: Abnormal Lab Results - Last 24 Hours (Table) 02/18/18 02/18/18 02/18/18 Range/Units 11:42 16:57 21:15 RBC (3.80-5.40) m/uL MCV (80.0-100.0) fL RDW (11.5-15.5) % Potassium (3.5-5.1) mmol/L Chloride (98-107) mmol/L BUN (7-17) mg/dL Creatinine (0.52-1.04) mg/dL Glucose (74-99) mg/dL POC Glucose (mg/dL) 122 H 152 H 182 H (75-99) mg/dL 02/19/18 02/19/18 02/19/18 Range/Units 06:35 06:35 06:41 RBC 3.47 L (3.80-5.40) m/uL MCV 106.5 H (80.0-100.0) fL RDW 18.6 H (11.5-15.5) % Potassium 3.2 L (3.5-5.1) mmol/L Chloride 97 L (98-107) mmol/L BUN 66 H (7-17) mg/dL Creatinine 2.43 H (0.52-1.04) mg/dL Glucose 118 H (74-99) mg/dL POC Glucose (mg/dL) 134 H (75-99) mg/dL Microbiology - Last 24 Hours (Table) 02/15/18 12:22 Urine Culture - Final Urine,Clean Catch Escherichia coli Assessment and Plan Assessment: Assessment #1 congestive heart failure exacerbation secondary to systolic dysfunction #2 chronic atrial fibrillation was controlled heart rate #3 history of right leg DVT #4 moderate to severe mitral regurgitation #5 mild aortic stenosis #6 cardiomyopathy with an EF around 40%. Plan #1 the blood pressure has improved after we decrease the dose of metoprolol and after she was started on midodrine and #2 the kidney function continues to be stable with a creatinine of 1.90 #3 the patient can be discharged home.
[2018-02-19 10:14] VITALS: TEMP 97.3
[2018-02-19 11:36] LABS: Glucose,Whole Blood 131 mg/dL (75-99)
--- NOTE | 2018-02-19 13:13 | P.PN ---
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 She has a known history of atrial fibrillation with controlled heart rate, she is maintained on Xarelto 15 mg daily for stroke prevention, her last echocardiogram was done on 12/04/2017 and revealed an ejection fraction of 40-45 %. 02/12/2018 patient still having lower extremity edema and shortness of breath with activity. Nephrology is consulted, patient follows with Dr. Bernal outpatient and is known to her. Patient denies any chest pain. Denies any nausea or vomiting. Denies any bowel movement changes or urinary symptoms. Patient does reports that she feels she should be urinating more often than she has with the IV Lasix 02/13/2018 patient was started on IV Lasix drip yesterday. She's had 1 pound weight loss. Patient denies any chest pain. Still having some lower extremity edema. Shortness of breath is improving. Denies any nausea or vomiting. Reports bowel movement. Denies any difficulty urinating. On 02/14/2018 patient remains on IV Lasix drip. Patient weight down from 81.5 kg to 80.2 kg this a.m. patient states the shortness of breath is significantly improving along with lower extremity edema. Denies chest pain or shortness of breath at this time. Creatinine increasing to 2.07, discussed case with nurse who spoke to Dr. Escobar. Per nephrology would like to keep patient on Lasix drip for 1 more day. 02/15/2018 Lasix drip discontinued today by nephrology. They have started patient on torsemide 20 mg twice a day and Zaroxolyn 2.5 mg daily. Patient's weight has decreased from 80.2 kg to 79.8 kg. She denies any shortness of breath. Has had some decrease in the lower extremity swelling. She is complaining of some burning when she urinates. However, she feels it's more due to skin irritation from the frequent urinating from the Lasix. However, we' ll check a urinalysis with culture. Also will supply zinc oxide to the irritated skin 02/16/2018 patient still having lower extremity edema. Weight increased from 79.8 kg to 80.1 kg. Denies shortness of breath. Blood pressure 97/51. Patient seen by nephrology. The recommending patient stay 1 more day. Zaroxolyn increased to 5 mg daily. Patient found to have evidence of a UTI started on Rocephin. Awaiting urine culture. On 02/17/2018 patient is alert and oriented 3 still having significant lower extremity edema her weight today is 78.3 kg. She is ambulating and her shortness of breath has improved, she denies any chest pain no fever or chills no headache or dizziness no nausea or vomiting no abdominal pain and no urinary symptoms On 02/18/2018 patient is alert and oriented 3 in no apparent distress lower extremity edema is improving, weight is down to 77.7 kg BUN is up to 65 creatinine to 2.31 shortness of breath improved significantly since admission, urine culture now is positive for ESBL IV Rocephin discontinued yesterday and patient was started on meropenem infectious disease consultation requested 02/19/2018 patient wants to be discharged home. Her lower extremity edema is showing improvement. She continues to have a decrease in her weight. Weight has dropped from 77.7 kg to 76.3 kg. Nephrology and cardiology had cleared her for discharge. Urine culture growing ESBL. Case discussed with infectious disease. They are recommending a repeat urinalysis with culture. Per infectious disease if urinalysis is clean and no further antibiotics are needed. If urinalysis is still showing evidence of infection patient will require IV antibiotics at discharge. Case discussed with nephrology Zaroxolyn will be decreased to 2.5 mg daily since patient has had increase of creatinine up to 2.43. Objective - Vital Signs Vital signs: Vital Signs Temp 97.3 F L 02/19/18 08:00 Pulse 94 07/16/18 08:00 Resp 18 02/19/18 08:00 BP 90/53 02/19/18 08:00 Pulse Ox 95 02/19/18 08:00 Intake & Output 02/18/18 02/19/18 02/19/18 18:59 06:59 18:59 Intake Total 480 100 180 Balance 480 100 180 Weight 76.3 kg Intake: Intake, IV Titration 100 Amount Meropenem 1 gm In Sodium 100 Chloride 0.9% 100 ml @ 200 mls/hr IVPB Q8HR [facility] Rx#:[id number] Oral 480 180 Other: Voiding Method Toilet Toilet Toilet # Voids 1 1 - Exam Head normocephalic Neck supple Lungs diminished in the bases bilaterally Heart irregular. A. fib on monitor Abdomen is soft nontender nondistended positive bowel sounds no hepatosplenomegaly Extremities +1 pitting edema bilaterally legs are becoming softer. There is improvement in her overall edema. Neuro alert and orientated to 3 - Labs CBC & Chem 7: 02/19/18 06:35 02/19/18 06:35 Labs: Abnormal Lab Results - Last 24 Hours (Table) 02/18/18 02/18/18 02/19/18 Range/Units 16:57 21:15 06:35 RBC 3.47 L (3.80-5.40) m/uL MCV 106.5 H (80.0-100.0) fL RDW 18.6 H (11.5-15.5) % Potassium (3.5-5.1) mmol/L Chloride (98-107) mmol/L BUN (7-17) mg/dL Creatinine (0.52-1.04) mg/dL Glucose (74-99) mg/dL POC Glucose (mg/dL) 152 H 182 H (75-99) mg/dL 02/19/18 02/19/18 02/19/18 Range/Units 06:35 06:41 11:34 RBC (3.80-5.40) m/uL MCV (80.0-100.0) fL RDW (11.5-15.5) % Potassium 3.2 L (3.5-5.1) mmol/L Chloride 97 L (98-107) mmol/L BUN 66 H (7-17) mg/dL Creatinine 2.43 H (0.52-1.04) mg/dL Glucose 118 H (74-99) mg/dL POC Glucose (mg/dL) 134 H 131 H (75-99) mg/dL Microbiology - Last 24 Hours (Table) 02/15/18 12:22 Urine Culture - Final Urine,Clean Catch Escherichia coli Assessment and Plan Assessment: #1 acute on chronic systolic congestive heart failure exacerbation: Nephrology has discontinue the Lasix drip. Started patient on torsemide 20 g twice a day. Continue to monitor daily weights, I's and O's and kidney function. Case discussed with nephrology. We'll decrease the Zaroxolyn to 2.5 mg daily due to the increase in her creatinine. #2 underlying history of cardiomyopathy with decreased ejection fraction to 40- 45% #3 underlying history of atrial fibrillation heart rate is well-controlled #4 underlying history of moderate to severe mitral regurgitation #5 underlying history of chronic kidney disease #6 underlying history of hypertension #7 underlying history of diabetes mellitus, type II A1c 7.1 #8 underlying history of gout #9 underlying history of chronic back pain #10 UTI: Urine culture growing ESBL. Case discussed with infectious disease. Awaiting repeat urinalysis with culture and sensitivity to finalize antibiotics Anticipate discharge possibly tomorrow For DVT prophylaxis patient is on Xarelto, for GI prophylaxis patient on pantoprazole I performed an examination of the patient and discussed their management with the physician Arabic Linguist. I have reviewed the Physician Arabic Linguist's notes and agree with the documented findings and plan of care
[2018-02-19] MEDS: ZINC OXIDE 20% OINT 28.4 GM TUBE TOPICAL SCH (14:05)
[2018-02-19 14:17] LABS: Appearance,Urine Clear (Clear); Bacteria,Urine Rare /hpf; Bilirubin,Urine Negative (Negative); Blood,Urine Trace (Negative); Color,Urine Light Yellow; Glucose,Urine (UA) Negative (Negative); Hyaline Casts,Urine 5 /lpf (0-2); Ketones,Urine Negative (Negative); Leukocyte Esterase,Urine Trace (Negative); Mucus,Urine Rare /hpf; Nitrite,Urine Negative (Negative); Protein,Urine Negative (Negative); RBC,Urine 1 /hpf (0-5); Specific Gravity,Urine 1.007 (1.001-1.035); Squamous Epithelial Cell,Urine 1 /hpf (0-4); Urobilinogen,Urine <2.0 mg/dL (<2.0); WBC,Urine 3 /hpf (0-5)
[2018-02-19] MEDS ORDERED: ERTAPENEM 1 GM in SODIUM CHLORIDE 0.9% 50 ML IVPB STA (14:44)
[2018-02-19] MEDS: LINAGLIPTIN 5 MG TABLET PO SCH (15:22)
[2018-02-19 15:33] VITALS: BP 106/59; PULSE 94
--- NOTE | 2018-02-19 15:49 | P.DS ---
Providers Date of admission: 02/10/18 14:28 Expected date of discharge: 02/19/18 Attending physician: Elyse Owen Consults: 02/10/18 14:28 Consult Physician Routine Consulting Provider: [facility] Consult Reason/Comments: Acute pulmonary edema Do you want consulting provider notified?: Yes 02/12/18 08:24 Consult Physician ONCE Consulting Provider: Hanna Escobar Consult Reason/Comments: CKD, CHF Do you want consulting provider notified?: Yes 02/18/18 13:04 Consult Physician Routine Consulting Provider: Beau Berman Consult Reason/Comments: ESBL in urine Do you want consulting provider notified?: Yes Primary care physician: Jak Nathan [facility] Course: Discharge diagnosis #1 acute on chronic systolic congestive heart failure exacerbation: Patient will continue torsemide 20 mg twice a day and Zaroxolyn 2.5 mg daily #2 underlying history of cardiomyopathy with decreased ejection fraction to 40- 45% #3 underlying history of atrial fibrillation heart rate is well-controlled #4 underlying history of moderate to severe mitral regurgitation #5 underlying history of chronic kidney disease #6 underlying history of hypertension #7 underlying history of diabetes mellitus, type II A1c 7.1 #8 underlying history of gout #9 underlying history of chronic back pain #10 UTI: Urine culture growing ESBL. Repeat urinalysis shows improvement in infection. Infectious diseases recommending one more dose of Invanz. 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 Escobar horse farm manager as outpatient, she states that recently Lasix was discontinued and patient was started on torsemide 10 mg by mouth daily she states that her weight has been going up gradually, she gained 19 pounds in the last 3 weeks, she started having worsening shortness of breath, and eventually her family decided to bring her back to emergency room. She has a known history of atrial fibrillation with controlled heart rate, she is maintained on Xarelto 15 mg daily for stroke prevention, her last echocardiogram was done on 12/04/2017 and revealed an ejection fraction of 40-45 %. 02/12/2018 patient still having lower extremity edema and shortness of breath with activity. Nephrology is consulted, patient follows with Dr. Bernal outpatient and is known to her. Patient denies any chest pain. Denies any nausea or vomiting. Denies any bowel movement changes or urinary symptoms. Patient does reports that she feels she should be urinating more often than she has with the IV Lasix 02/13/2018 patient was started on IV Lasix drip yesterday. She's had 1 pound weight loss. Patient denies any chest pain. Still having some lower extremity edema. Shortness of breath is improving. Denies any nausea or vomiting. Reports bowel movement. Denies any difficulty urinating. On 02/14/2018 patient remains on IV Lasix drip. Patient weight down from 81.5 kg to 80.2 kg this a.m. patient states the shortness of breath is significantly improving along with lower extremity edema. Denies chest pain or shortness of breath at this time. Creatinine increasing to 2.07, discussed case with nurse who spoke to Dr. Escobar. Per nephrology would like to keep patient on Lasix drip for 1 more day. 02/15/2018 Lasix drip discontinued today by nephrology. They have started patient on torsemide 20 mg twice a day and Zaroxolyn 2.5 mg daily. Patient's weight has decreased from 80.2 kg to 79.8 kg. She denies any shortness of breath. Has had some decrease in the lower extremity swelling. She is complaining of some burning when she urinates. However, she feels it's more due to skin irritation from the frequent urinating from the Lasix. However, we' ll check a urinalysis with culture. Also will supply zinc oxide to the irritated skin 02/16/2018 patient still having lower extremity edema. Weight increased from 79.8 kg to 80.1 kg. Denies shortness of breath. Blood pressure 97/51. Patient seen by nephrology. The recommending patient stay 1 more day. Zaroxolyn increased to 5 mg daily. Patient found to have evidence of a UTI started on Rocephin. Awaiting urine culture. On 02/17/2018 patient is alert and oriented 3 still having significant lower extremity edema her weight today is 78.3 kg. She is ambulating and her shortness of breath has improved, she denies any chest pain no fever or chills no headache or dizziness no nausea or vomiting no abdominal pain and no urinary symptoms On 02/18/2018 patient is alert and oriented 3 in no apparent distress lower extremity edema is improving, weight is down to 77.7 kg BUN is up to 65 creatinine to 2.31 shortness of breath improved significantly since admission, urine culture now is positive for ESBL IV Rocephin discontinued yesterday and patient was started on meropenem infectious disease consultation requested 02/19/2018 patient wants to be discharged home. Her lower extremity edema is showing improvement. She continues to have a decrease in her weight. Weight has dropped from 77.7 kg to 76.3 kg. Nephrology and cardiology had cleared her for discharge. Urine culture growing ESBL. Case discussed with infectious disease. They are recommending a repeat urinalysis with culture. Per infectious disease if urinalysis is clean and no further antibiotics are needed. If urinalysis is still showing evidence of infection patient will require IV antibiotics at discharge. Case discussed with nephrology Zaroxolyn will be decreased to 2.5 mg daily since patient has had increase of creatinine up to 2.43. Patient shortness of breath and lower extremity edema improved slowly over this admission. She did require IV Lasix drip. Patient will follow-up with nephrology and cardiology outpatient. Diuretics have been adjusted. She's been placed on torsemide 20 mg twice a day and Zaroxolyn 2.5 mg daily. Midodrin needed to be added due to her episodes of hypotension. Blood pressures have improved. She is now tolerating her diuretics and symptomatically her congestive heart failure has improved greatly. Lopressor was adjusted to 25 mg twice a day instead of 3 times a day. Patient was cleared by nephrology and cardiology for discharge. Patient was also treated for UTI initially started on Rocephin urine culture came back positive with ESBL. Antibiotics were changed to meropenem. She was seen evaluated by infectious disease. They have repeated urinalysis which shows improvement and given 1 dose of Invanz. Infectious diseases recommending discharge with no further need of antibiotics. Patient's symptoms have improved. Patient is medical stable for discharge. Please refer to chart for any further details. Patient will have a BMP checked in 3 days I performed an examination of the patient and discussed their management with the physician Aircraft Quality Control Inspector. I have reviewed the Physician Aircraft Quality Control Inspector's notes and agree with the documented findings and plan of care Patient Condition at Discharge: Stable Plan - Discharge Summary Discharge Rx Participant: No New Discharge Prescriptions: New Metolazone [Zaroxolyn] 2.5 mg PO DAILY #30 tab Metoprolol Tartrate [Lopressor] 25 mg PO BID #60 tab Midodrine [ProAmatine] 5 mg PO TID-W/MEALS #90 tab Potassium Chloride ER [K-Dur 20] 20 meq PO DAILY #30 tab.er.prt Torsemide [Demadex] 20 mg PO BID@0900,1600 #60 tab Zinc Oxide 20% Oint 1 applic TOPICAL BID applic Continue Linagliptin [Tradjenta] 5 mg PO DAILY@1500 Allopurinol [Zyloprim] 200 mg PO DAILY@0800 Rivaroxaban [Xarelto] 15 mg PO DAILY@0800 Omeprazole [PriLOSEC] 20 mg PO DAILY@0700 Docusate Sodium [Stool Softener] 100 mg PO BID@, Garlic 1 tab PO BID@,20 Calcitriol 0.25 mcg PO SUTUTHSA@0800 traMADol HCL [Ultram] 50 mg PO TID@,, Magnesium Oxide [Mag-Ox] 400 mg PO DAILY@0800 Brinzolamide/Brimonidine Tart [Simbrinza 1%-0.2% Eye Drops] 1 drop BOTH EYES BID@07,20 Vit C/E/Zn/Coppr/Lutein/Zeaxan [Preservision Areds 2 Softgel] 1 cap PO BID@09 ,20 Ferrous Sulfate [Feosol] 325 mg PO DAILY@0800 Ammonium Lactate Cream [Lac-Hydrin 12% Cream] 1 applic TOPICAL BID@07,20 Cholecalciferol (Vitamin D3) [Vitamin D3] 2,000 unit PO DAILY@0800 Wheat Dextrin [Benefiber] 1 packet PO BID@08,20 Isosorbide Mononitrate ER [Imdur] 60 mg PO DAILY@0800 Discontinued Torsemide 10 mg PO DAILY@0800 Metoprolol Tartrate [Lopressor] 25 mg PO TID@,, Discharge Medication List Allopurinol [Zyloprim] 200 mg PO DAILY@0800 01/22/14 [History] Linagliptin [Tradjenta] 5 mg PO DAILY@149901/22/14 [History] Omeprazole [PriLOSEC] 20 mg PO DAILY@69901/22/14 [History] Rivaroxaban [Xarelto] 15 mg PO DAILY@79901/22/14 [History] Docusate Sodium [Stool Softener] 100 mg PO BID@,02/22/14 [History] Garlic 1 tab PO BID@02/22/14 [History] Calcitriol 0.25 mcg PO SUTUTHSA@79908/22/14 [History] Magnesium Oxide [Mag-Ox] 400 mg PO DAILY@79901/13/16 [History] traMADol HCL [Ultram] 50 mg PO TID@,,01/13/16 [History] Brinzolamide/Brimonidine Tart [Simbrinza 1%-0.2% Eye Drops] 1 drop BOTH EYES BID @05/11/17 [History] Vit C/E/Zn/Coppr/Lutein/Zeaxan [Preservision Areds 2 Softgel] 1 cap PO BID@12/03/17 [History] Ferrous Sulfate [Feosol] 325 mg PO DAILY@79901/11/18 [History] Ammonium Lactate Cream [Lac-Hydrin 12% Cream] 1 applic TOPICAL BID@ [History] Cholecalciferol (Vitamin D3) [Vitamin D3] 2,000 unit PO DAILY@79902/10/18 [ History] Isosorbide Mononitrate ER [Imdur] 60 mg PO DAILY@79902/10/18 [History] Wheat Dextrin [Benefiber] 1 packet PO BID@02/10/18 [History] Metolazone [Zaroxolyn] 2.5 mg PO DAILY #30 tab 02/19/18 [Rx] Metoprolol Tartrate [Lopressor] 25 mg PO BID #60 tab 02/19/18 [Rx] Midodrine [ProAmatine] 5 mg PO TID-W/MEALS #90 tab 02/19/18 [Rx] Potassium Chloride ER [K-Dur 20] 20 meq PO DAILY #30 tab.er.prt 02/19/18 [Rx] Torsemide [Demadex] 20 mg PO BID@0900,1600 #60 tab 02/19/18 [Rx] Zinc Oxide 20% Oint 1 applic TOPICAL BID applic 02/19/18 [Rx] Follow up Appointment(s)/Referral(s): [facility], [NON-STAFF] - As Needed Jak Nathan MD [Primary Care Provider] - 02/22/18 11:10 am () Beau Berman MD [STAFF PHYSICIAN] - 1 Week Hanna Escobar MD [STAFF PHYSICIAN] - 1 Week Buck Peres MD [STAFF PHYSICIAN] - 1 Week Ambulatory/Diagnostic Orders: Basic Metabolic Panel [LAB.AMB] Time Frame: 3 Days, Location: None Selected Activity/Diet/Wound Care/Special Instructions: Diet: cardiac, diabetic Activity: as tolerated Discharge Disposition: HOME SELF-CARE
[2018-02-19 16:54] LABS: Glucose,Whole Blood 151 mg/dL (75-99)
[2018-02-20] MEDS ORDERED: METOLAZONE 2.5 MG TAB PO SCH (09:00)
--- NOTE | 2018-02-20 11:14 | CONS ---
CONSULTATION DATE OF SERVICE: 02/19/2018. REASON FOR CONSULTATION: ESBL E coli positive urine culture. HISTORY OF PRESENT ILLNESS: The patient is an 83-year-old female who presented to the [facility] ER about 9 days ago with chief complaints of worsening shortness of breath. The patient did have history of congestive heart failure and chronic insufficiency. The patient subsequently has been admitted to the hospital and been diagnosed with CHF and being treated with torsemide and Xarelto for underlying atrial fibrillation with RVR. The patient did not have any fever during this admission. She did have urinary incontinence into the pads. On the , the patient did have a UA obtained which shows large leukocyte esterases with moderate WBC clumps and moderate bacteria. Blood culture finalized with the ESBL E coli yesterday for which the patient started on meropenem and Infectious Disease was consulted for further recommendation regarding antibiotic therapy. At the time of my evaluation this morning, the patient has been afebrile. She continued complaining of some urinary frequency with minimal burning on urination, but no suprapubic or flank pain. No nausea, vomiting, or any diarrhea. The patient has been very adamant about going home today. She has been here for almost 9 days now and no fever has been recorded or elevated white count. REVIEW OF SYSTEMS: CONSTITUTIONAL: Positive for weakness. Denies any fever. EYES: No complaint. ENT: No complaint. RESPIRATORY: As per HPI. CARDIOVASCULAR: As per HPI. GENITOURINARY: As per HPI. GASTROINTESTINAL: No complaint. MUSCULOSKELETAL: No complaint. INTEGUMENTARY: No complaint. PSYCHOLOGICAL: No complaint. NEUROLOGIC: No complaint. PAST MEDICAL HISTORY: Atrial fibrillation, coronary artery disease, heart failure, diabetes mellitus, DVT, gastroesophageal reflux disease, hypertension, macular degeneration, gallstones, previous history of VRE and urinary tract infection. PAST SURGICAL HISTORY: Appendectomy, bowel resection, hysterectomy, right breast biopsy, left hip replacement and Toyin filter placement. SOCIAL HISTORY: Remote history of smoking. Quit back in 1971. Denies any drinking or drug use. FAMILY HISTORY: No pertinent findings noticed. ALLERGIES: To LIPITOR and HYDROCODONE. MEDICATIONS: Include the patient is currently on allopurinol, Rocaltrol, vitamin D3, Colace, iron sulfate, Imdur, lactic acid, Tradjenta, meropenem 1 g q.i.d., Zaroxolyn, Lopressor, I- Shanice, zinc oxide, Protonix, K-Dur, Metamucil. EXAMINATION: Blood pressure 153/59, pulse 89, temperature 97.3. She is 95% on room air. General description is an elderly female up in the chair in no distress. No tachypnea or accessory muscle of respiration use. HEENT: Shows no pallor or scleral icterus. Oral mucosa is dry. No pharyngeal erythema or thrush. NECK: Trachea central. No thyromegaly. LUNGS: Unlabored breathing. Clear to auscultation anteriorly. No wheeze or crackle. HEART: S1, S2. Regular rate and rhythm. ABDOMEN: Soft, no tenderness. No guarding or rigidity. EXTREMITIES: No edema of the feet. SKIN: No rash or mass palpable. NEUROLOGICAL: Patient is awake, alert, oriented x3. Mood and affect normal. LABS: Hemoglobin 11.5, white count 7.3, BUN of 66, creatinine 2.43. UA on 02/07 has been positive. Repeat UA ordered today. Straight cath did shows some trace leukocyte esterases and rare bacteria. Culture positive for ESBL E coli. DIAGNOSTIC IMPRESSION AND PLAN: Patient with ESBL E coli positive urine cultures with question of possible mild urinary tract infection and possible cystitis versus possible contamination as the patient is currently not running fever or elevated white count. However, the patient did have some urinary symptom. PLAN: 1. The patient will be given 1 dose of Invanz. 2. Afterward the patient will go home and I will follow patient in outpatient setting and if the urinary symptoms persist will repeat urine cultures before finishing further antibiotic therapy. Plan of care was discussed in detail with the nurse practitioner for the primary team. MMODL / IJN: [id number] /
== END 2018-02-19 18:06 | disposition home or self-care (01) | DRG 291 ==
LOC: EC 12:26 → 6SEL 14:28
PROVIDERS: ADMIT Internal Medicine; ATTEND Internal Medicine
DX: I13.0 Hypertensive heart and chronic kidney disease with heart failure and stage 1 through stage 4 chronic kidney disease, or unspecified chronic kidney disease (principal); I50.23 Acute on chronic systolic (congestive) heart failure; N17.9 Acute kidney failure, unspecified; N18.4 Chronic kidney disease, stage 4 (severe); N39.0 Urinary tract infection, site not specified; B96.20 Unspecified Escherichia coli [E. coli] as the cause of diseases classified elsewhere; D63.8 Anemia in other chronic diseases classified elsewhere; E11.22 Type 2 diabetes mellitus with diabetic chronic kidney disease; E87.6 Hypokalemia; G89.29 Other chronic pain; H35.30 Unspecified macular degeneration; I25.10 Atherosclerotic heart disease of native coronary artery without angina pectoris; I42.9 Cardiomyopathy, unspecified; I48.2 Chronic atrial fibrillation; K21.9 Gastro-esophageal reflux disease without esophagitis; T50.2X5A Adverse effect of carbonic-anhydrase inhibitors, benzothiadiazides and other diuretics, initial encounter; K80.20 Calculus of gallbladder without cholecystitis without obstruction; M10.9 Gout, unspecified; I95.9 Hypotension, unspecified; M25.551 Pain in right hip; M54.9 Dorsalgia, unspecified; I08.0 Rheumatic disorders of both mitral and aortic valves; E83.89 Other disorders of mineral metabolism; Z16.12 Extended spectrum beta lactamase (ESBL) resistance; Z79.01 Long term (current) use of anticoagulants; Z79.899 Other long term (current) drug therapy; Z79.84 Long term (current) use of oral hypoglycemic drugs; Z96.642 Presence of left artificial hip joint; Z90.710 Acquired absence of both cervix and uterus; Z87.891 Personal history of nicotine dependence; Z86.718 Personal history of other venous thrombosis and embolism; Z90.49 Acquired absence of other specified parts of digestive tract; Z85.42 Personal history of malignant neoplasm of other parts of uterus; Z88.5 Allergy status to narcotic agent; Z88.8 Allergy status to other drugs, medicaments and biological substances
CPT/HCPCS: 36415; 71046; 80048; 80053; 80061; 81001; 82550; 82553; 83036; 83735; 83880; 84132; 84484; 85025; 85610; 85730; 87077; 87086; 87186; 93005; 94760; 96374; 96375; 99285

== ENCOUNTER → 2018-02-22 | Outpatient (CLI) | payer MEDICARE, BC ==
[2018-02-22 11:07] LABS: Calcium 9.7 mg/dL (8.4-10.2); Potassium 3.3 mmol/L (3.5-5.1)
== END | disposition home or self-care (01) ==
LOC: LABWHC1 09:36
PROVIDERS: ATTEND Physician Assistant
DX: N17.9 Acute kidney failure, unspecified (principal); E87.6 Hypokalemia
CPT/HCPCS: 36415; 80048

== ENCOUNTER → 2018-03-13 | Outpatient (CLI) | payer MEDICARE, BC ==
--- NOTE | 2018-03-13 14:47 | USB ---
Reason for exam: follow-up at short interval from prior study. History: Patient is postmenopausal and has history of endometrial cancer at age 66. Benign US biopsy breast VAD LT of the left breast, August 31, 2017. Cancelled Left Mammotome of the left breast, September 22, 2009. Benign cyst aspiration of the left breast, 1996. Physical Findings: Nurse did not find any significant physical abnormalities on exam. US Breast LT Left complete breast ultrasound includes all four quadrants, the retroareolar region and axilla. Finding demonstrates a 8 x 3 x 6 mm lobular hypoechoic lesion at 2 o'clock that was previously biopsied. These results were verbally communicated with the patient and result sheet given to the patient on 03/13/18. ASSESSMENT: Probably benign, BI-RAD 3 RECOMMENDATION: Routine screening mammogram of both breasts in 6 months. Ultrasound of the left breast in 6 months.
== END | disposition home or self-care (01) ==
LOC: RADUSWWP 09:34
PROVIDERS: ATTEND Surgery
DX: R92.8 Other abnormal and inconclusive findings on diagnostic imaging of breast (principal)

== ENCOUNTER 2018-05-18 00:42 | Emergency (ER) | payer MEDICARE, BC ==
[2018-05-18] MEDS ORDERED: DIPH,PERTUS(ACELL)TETVAC-LF 0.5 ML VIAL IM ONE (01:09)
--- NOTE | 2018-05-18 01:46 | XR ---
EXAMINATION TYPE: XR Hip Complete RT DATE OF EXAM: 05/18/2018 COMPARISON: 03/05/2014 HISTORY: Fall. Right hip pain TECHNIQUE: 2 views. FINDINGS: There is severe narrowing of the right hip joint space with sclerosis on both sides of the joint. The re are subchondral cystic changes. I see no fracture. IMPRESSION: Advanced osteoarthritis. No fracture. There is progression of the osteosclerosis compared to old exam.
--- NOTE | 2018-05-18 01:47 | XR ---
EXAMINATION TYPE: XR thoracic spine 2V DATE OF EXAM: 05/18/2018 COMPARISON: 04/10/2018 HISTORY: Back pain TECHNIQUE: 3 views FINDINGS: The thoracic vertebra have normal alignment. Posterior elements are intact. There is no par aspinal mass. I see no compression fracture. IMPRESSION: Degenerative spur formation. No fracture. No change compared to old chest x-ray.
--- NOTE | 2018-05-18 01:54 | ED ---
Fall HPI - General Chief Complaint: Fall Stated Complaint: Fall Time Seen by Provider: 05/18/18 00:57 Source: patient Mode of arrival: ambulatory - History of Present Illness Initial Comments: This patient is an 83-year-old woman who presents to be evaluated after she had a fall tonight. The patient states that she had gotten out of bed and was leaning forward to get her walker. The walker has wheels and as she was reaching forward and rolled forward. She lost her balance and then fell. She states that when she fell she landed mainly on her back, sliding down and then also landing on her right hip. She complains of pain to the thoracic area of the back and also to the right hip. She denies any head or neck injury. She denies injury to the other extremities. The patient also had a couple of small skin tears. Complaint: fall Onset/Timin -: hour(s) Fall From: standing When Fall Occurred: just prior to arrival Fall Witnessed: no Place Fall Occurred: home Loss of Consciousness: none Prolonged Down Time?: no Symptoms Prior to Fall: none Location: back Location - Extremities: Right: Leg Severity: moderate Quality: aching Context: other (Lost balance) Associated Symptoms: denies - Related Data Home Medications Medication Instructions Recorded Confirmed Allopurinol [Zyloprim] 200 mg PO DAILY@0800 01/22/14 04/10/18 Linagliptin [Tradjenta] 5 mg PO DAILY@1500 01/22/14 04/10/18 Omeprazole [PriLOSEC] 20 mg PO DAILY@0701/22/14 04/10/18 Docusate Sodium [Stool Softener] 100 mg PO BID@02/22/14 04/10/18 Garlic 1 tab PO BID@02/22/14 04/10/18 Calcitriol 0.25 mcg PO SUTUTHSA@0800 08/22/14 04/10/18 Magnesium Oxide [Mag-Ox] 400 mg PO DAILY@0800 01/13/16 04/10/18 traMADol HCL [Ultram] 50 mg PO TID@0800,1500,2300 01/13/16 04/10/18 Brinzolamide/Brimonidine Tart 1 drop BOTH EYES BID@07,20 05/11/17 04/10/18 [Simbrinza 1%-0.2% Eye Drops] Vit C/E/Zn/Coppr/Lutein/Zeaxan 1 cap PO BID@,12/03/17 04/10/18 [Preservision Areds 2 Softgel] Ferrous Sulfate [Feosol] 325 mg PO DAILY@79901/11/18 04/10/18 Ammonium Lactate Cream [Lac-Hydrin 1 applic TOPICAL BID@,02/10/18 04/10/18 12% Cream] Cholecalciferol (Vitamin D3) 2,000 unit PO DAILY@79902/10/18 04/10/18 [Vitamin D3] Isosorbide Mononitrate ER [Imdur] 60 mg PO DAILY@79902/10/18 04/10/18 Wheat Dextrin [Benefiber] 1 packet PO BID@,02/10/18 04/10/18 Midodrine [ProAmatine] 5 mg PO TID@07,15,04/10/18 04/10/18 Rivaroxaban [Xarelto] 10 mg PO DAILY@79904/10/18 04/10/18 Torsemide [Demadex] 10 mg PO BID@0900,1500 04/10/18 04/10/18 Previous Rx's Medication Instructions Recorded Zinc Oxide 20% Oint 1 applic TOPICAL BID applic 02/19/18 Metoprolol Tartrate [Lopressor] 25 mg PO DIRECTED #90 tab 04/13/18 Potassium Chloride ER [K-Dur 20] 20 meq PO DAILY #30 tab 04/13/18 Sodium Bicarbonate Tab 650 mg PO BID #60 tab 04/13/18 Allergies Allergy/AdvReac Type Severity Reaction Status Date / Time atorvastatin calcium Allergy Unknown Verified 05/18/18 00:49 [From Lipitor] codeine Allergy Unknown Verified 05/18/18 00:49 [From Tylenol-Codeine #3] hydrocodone Allergy Vomiting Verified 05/18/18 00:49 Review of Systems ROS Statement: Those systems with pertinent positive or pertinent negative responses have been documented in the HPI. ROS Other: All systems not noted in ROS Statement are negative. Constitutional: Denies: fever, weakness ENT: Denies: epistaxis Respiratory: Denies: cough, dyspnea Cardiovascular: Denies: chest pain, edema, syncope Gastrointestinal: Denies: abdominal pain, nausea, vomiting Musculoskeletal: Reports: as per HPI, back pain, arthralgia. Denies: joint swelling, myalgia Skin: Reports: lesions. Denies: rash Neurological: Denies: headache, weakness, numbness, paresthesias, confusion Past Medical History Past Medical History: Atrial Fibrillation, Coronary Artery Disease (CAD), Cancer , Heart Failure, Diabetes Mellitus, Deep Vein Thrombosis (DVT), Eye Disorder, GERD/Reflux, Hypertension, Renal Disease Additional Past Medical History / Comment(s): Macular Degeneration and gluacoma , gallstones, stage 3 kidney failure, hx Uterine & groin CA; WEARS BILAT THIGH HIGH HOSE, uses cane or walker, patient states she has "2 blood clots in right groin since 2003" family states now clot is "through the whole leg" CHF, History of Any Multi-Drug Resistant Organisms: ESBL, VRE Date of last positivie culture/infection: 02/15/18 MDRO Source:: urine, E.coli, VRE 09/29/13 Past Surgical History: Appendectomy, Bowel Resection, Hysterectomy, Joint Replacement Additional Past Surgical History / Comment(s): gastrointestinal surgery for bowel obstruction. left hip replacement, rt breast biopsy, darcy filter rt leg, biopsy of right nostril no results yet Past Anesthesia/Blood Transfusion Reactions: No Reported Reaction Past Psychological History: No Psychological Hx Reported Smoking Status: Former smoker Past Alcohol Use History: None Reported Past Drug Use History: None Reported - Past Family History Mother Family Medical History: No Reported History General Exam Limitations: no limitations General appearance: alert, in no apparent distress Head exam: Present: atraumatic, normocephalic Eye exam: Present: normal appearance, PERRL, EOMI. Absent: scleral icterus, conjunctival injection ENT exam: Present: normal oropharynx Neck exam: Present: normal inspection, full ROM. Absent: tenderness Respiratory exam: Present: normal lung sounds bilaterally. Absent: respiratory distress, wheezes, rales, rhonchi, stridor Cardiovascular Exam: Present: normal rhythm, irregular rhythm, normal heart sounds. Absent: systolic murmur, diastolic murmur, rubs, gallop GI/Abdominal exam: Present: soft. Absent: distended, tenderness, guarding, rebound, rigid, mass Extremities exam: Present: full ROM, tenderness, normal capillary refill. Absent: pedal edema, calf tenderness Back exam: Present: full ROM, vertebral tenderness. Absent: CVA tenderness (R) , CVA tenderness (L) Neurological exam: Present: alert, oriented X3, CN II-XII intact. Absent: motor sensory deficit Skin exam: Present: warm, dry, intact, normal color, abrasion (Patient has abrasions overlying the mid portion of the T-spine. She has 2 small approximately 2 x 3 cm skin tears to the forearm.), other (2 small skin tears). Absent: rash Course Vital Signs 05/18/18 05/18/18 00:44 03:47 Temperature 97.6 F 97.8 F Pulse Rate 95 94 Respiratory 16 18 Rate Blood Pressure 121/93 148/77 O2 Sat by Pulse 99 98 Oximetry Medical Decision Making - Medical Decision Making Patient is a 3-year-old woman presenting with ground-level low mechanism of injury fall. Radiographs of the areas of injury reveal no fracture. The patient did have relief with analgesia here. We discussed appropriate further care and follow-up. Disposition Clinical Impression: Fall, Contusion Disposition: HOME SELF-CARE Condition: Fair Instructions: Fall Prevention for Older Adults (ED) Is patient prescribed a controlled substance at d/c from ED?: No Referrals: Jak Nathan MD [Primary Care Provider] - 1-2 days
[2018-05-18] MEDS ORDERED: MORPHINE SULFATE 4 MG/ML SYRINGE IM STA (03:31)
[2018-05-18 03:48] VITALS: BP 148/77; PULSE 94; RESP 18; TEMP 97.8
--- NOTE | 2018-05-21 03:03 | CDI ---
Dear Giancarlo Springer MD: Please do addendum the Contusion site. Thank you, Tiny Calvin, Boarding House Cook. If you have any questions, please contact Boat Cleaning Supervisor at [phone]. JADED
== END 2018-05-18 03:50 | disposition home or self-care (01) ==
LOC: EEVIPCON 00:42 → EC 00:42
DX: S70.01XA Contusion of right hip, initial encounter (principal); S51.819A Laceration without foreign body of unspecified forearm, initial encounter; S20.419A Abrasion of unspecified back wall of thorax, initial encounter; I49.9 Cardiac arrhythmia, unspecified; I48.91 Unspecified atrial fibrillation; N18.3 Chronic kidney disease, stage 3 (moderate); I13.0 Hypertensive heart and chronic kidney disease with heart failure and stage 1 through stage 4 chronic kidney disease, or unspecified chronic kidney disease; E11.22 Type 2 diabetes mellitus with diabetic chronic kidney disease; I50.9 Heart failure, unspecified; I25.10 Atherosclerotic heart disease of native coronary artery without angina pectoris; H35.30 Unspecified macular degeneration; H40.9 Unspecified glaucoma; K21.9 Gastro-esophageal reflux disease without esophagitis; Z87.891 Personal history of nicotine dependence; Z88.5 Allergy status to narcotic agent; Z88.8 Allergy status to other drugs, medicaments and biological substances; Z79.01 Long term (current) use of anticoagulants; Z79.84 Long term (current) use of oral hypoglycemic drugs; Z79.891 Long term (current) use of opiate analgesic; Z79.899 Other long term (current) drug therapy; Z86.718 Personal history of other venous thrombosis and embolism; Z90.710 Acquired absence of both cervix and uterus; Z85.42 Personal history of malignant neoplasm of other parts of uterus; Z23 Encounter for immunization; W01.0XXA Fall on same level from slipping, tripping and stumbling without subsequent striking against object, initial encounter; Y93.89 Activity, other specified; Y92.009 Unspecified place in unspecified non-institutional (private) residence as the place of occurrence of the external cause
CPT/HCPCS: 99283; 90471; 96372; 72070; 73502; 90715; J2270

== ENCOUNTER 2018-06-02 10:02 | Inpatient (IN) | payer MEDICARE, BC ==
[2018-06-02] MEDS ORDERED: ONDANSETRON 4 MG/2 ML VIAL IVP STA (10:44)
[2018-06-02] MEDS ORDERED: FUROSEMIDE 10 MG/ML 4 ML VIAL IV STA (10:44)
--- NOTE | 2018-06-02 10:47 | ED ---
General Adult HPI - General Chief complaint: Recheck/Abnormal Lab/Rx Stated complaint: Palpitations/vomiting Time Seen by Provider: 06/02/18 10:24 Source: patient, family, RN notes reviewed Mode of arrival: wheelchair Limitations: no limitations - History of Present Illness Initial comments: Patient is a pleasant 83-year-old female presenting to the emergency department with weight gain. Patient has been having some increased swelling and mild dyspnea over the past several days. Patient did gain 6 pounds since last night. Legs are more swollen. Patient denies fevers. Patient does have a history of similar symptoms previously associated with congestive heart failure. - Related Data Home Medications Medication Instructions Recorded Confirmed Allopurinol [Zyloprim] 200 mg PO DAILY@0800 01/22/14 04/10/18 Linagliptin [Tradjenta] 5 mg PO DAILY@1500 01/22/14 04/10/18 Omeprazole [PriLOSEC] 20 mg PO DAILY@0701/22/14 04/10/18 Docusate Sodium [Stool Softener] 100 mg PO BID@02/22/14 04/10/18 Garlic 1 tab PO BID@02/22/14 04/10/18 Calcitriol 0.25 mcg PO SUTUTHSA@0800 08/22/14 04/10/18 Magnesium Oxide [Mag-Ox] 400 mg PO DAILY@79901/13/16 04/10/18 traMADol HCL [Ultram] 50 mg PO TID@0800,1500,2300 01/13/16 04/10/18 Brinzolamide/Brimonidine Tart 1 drop BOTH EYES BID@05/11/17 04/10/18 [Simbrinza 1%-0.2% Eye Drops] Vit C/E/Zn/Coppr/Lutein/Zeaxan 1 cap PO BID@12/03/17 04/10/18 [Preservision Areds 2 Softgel] Ferrous Sulfate [Feosol] 325 mg PO DAILY@79901/11/18 04/10/18 Ammonium Lactate Cream [Lac-Hydrin 1 applic TOPICAL BID@,02/10/18 04/10/18 12% Cream] Cholecalciferol (Vitamin D3) 2,000 unit PO DAILY@79902/10/1818 [Vitamin D3] Isosorbide Mononitrate ER [Imdur] 60 mg PO DAILY@0800 02/10/18 04/10/18 Wheat Dextrin [Benefiber] 1 packet PO BID@08,20 02/10/18 04/10/18 Midodrine [ProAmatine] 5 mg PO TID@07,15,23 04/10/18 04/10/18 Rivaroxaban [Xarelto] 10 mg PO DAILY@0800 04/10/18 04/10/18 Torsemide [Demadex] 10 mg PO BID@0900,1500 04/10/18 04/10/18 Previous Rx's Medication Instructions Recorded Zinc Oxide 20% Oint 1 applic TOPICAL BID applic 02/19/18 Metoprolol Tartrate [Lopressor] 25 mg PO DIRECTED #90 tab 04/13/18 Potassium Chloride ER [K-Dur 20] 20 meq PO DAILY #30 tab 04/13/18 Sodium Bicarbonate Tab 650 mg PO BID #60 tab 04/13/18 Allergies Allergy/AdvReac Type Severity Reaction Status Date / Time atorvastatin calcium Allergy Unknown Verified 06/02/18 13:03 [From Lipitor] codeine Allergy Unknown Verified 06/02/18 13:03 [From Tylenol-Codeine #3] hydrocodone Allergy Vomiting Verified 06/02/18 13:03 Review of Systems ROS Statement: Those systems with pertinent positive or pertinent negative responses have been documented in the HPI. ROS Other: All systems not noted in ROS Statement are negative. Constitutional: Denies: fever Eyes: Denies: eye pain ENT: Denies: ear pain Respiratory: Reports: dyspnea Cardiovascular: Denies: chest pain Endocrine: Reports: fatigue Gastrointestinal: Denies: abdominal pain Genitourinary: Denies: dysuria Musculoskeletal: Denies: back pain Skin: Denies: rash Neurological: Denies: weakness Past Medical History Past Medical History: Atrial Fibrillation, Coronary Artery Disease (CAD), Cancer , Heart Failure, Diabetes Mellitus, Deep Vein Thrombosis (DVT), Eye Disorder, GERD/Reflux, Hypertension, Renal Disease Additional Past Medical History / Comment(s): Macular Degeneration and gluacoma , gallstones, stage 3 kidney failure, hx Uterine & groin CA; WEARS BILAT THIGH HIGH HOSE, uses cane or walker, patient states she has "2 blood clots in right groin since 2003" family states now clot is "through the whole leg" CHF, History of Any Multi-Drug Resistant Organisms: ESBL, VRE Date of last positivie culture/infection: 02/15/18 MDRO Source:: urine, E.coli, VRE 09/29/13 Past Surgical History: Appendectomy, Bowel Resection, Hysterectomy, Joint Replacement Additional Past Surgical History / Comment(s): gastrointestinal surgery for bowel obstruction. left hip replacement, rt breast biopsy, darcy filter rt leg, biopsy of right nostril no results yet Past Anesthesia/Blood Transfusion Reactions: No Reported Reaction Past Psychological History: No Psychological Hx Reported Smoking Status: Former smoker Past Alcohol Use History: None Reported Past Drug Use History: None Reported - Past Family History Mother Family Medical History: No Reported History General Exam Limitations: no limitations General appearance: alert, in no apparent distress Head exam: Present: atraumatic Eye exam: Present: normal appearance, PERRL Neck exam: Present: normal inspection Respiratory exam: Present: normal lung sounds bilaterally Cardiovascular Exam: Present: tachycardia, irregular rhythm GI/Abdominal exam: Present: soft. Absent: tenderness Extremities exam: Present: pedal edema. Absent: calf tenderness Back exam: Present: normal inspection Neurological exam: Present: alert Psychiatric exam: Present: normal affect, normal mood Skin exam: Present: normal color Course Vital Signs 06/02/18 06/02/18 06/02/18 10:16 11:10 11:30 Temperature 97 F L Pulse Rate 109 H 93 Respiratory 16 16 Rate Blood Pressure 103/76 116/91 116/91 O2 Sat by Pulse 99 94 L Oximetry 06/02/18 12:30 Temperature Pulse Rate 104 H Respiratory 9 L Rate Blood Pressure 121/85 O2 Sat by Pulse Oximetry EKG Findings - EKG Comments: EKG Findings:: A. fib with rate of 99. QRS 90. QT 342. QTC 438. Right axis. Normal QRS. T wave inversion in V4 through V6. Medical Decision Making - Medical Decision Making Patient reevaluated. Patient and family updated. Case was discussed in detail with Dr. marquis, who will admit for Dr. Nathan - Lab Data Result diagrams: 06/02/18 11:00 06/02/18 11:00 Lab Results 06/02/18 06/02/18 06/02/18 Range/Units 11:00 11:00 11:00 WBC 11.4 H (3.8-10.6) k/uL RBC 3.73 L (3.80-5.40) m/uL Hgb 13.1 (11.4-16.0) gm/dL Hct 43.0 (34.0-46.0) % MCV 115.1 H (80.0-100.0) fL MCH 35.2 H (25.0-35.0) pg MCHC 30.6 L (31.0-37.0) g/dL RDW 18.0 H (11.5-15.5) % Plt Count 202 (150-450) k/uL Neutrophils % 80 % Lymphocytes % 13 % Monocytes % 4 % Eosinophils % 1 % Basophils % 0 % Neutrophils # 9.1 H (1.3-7.7) k/uL Lymphocytes # 1.4 (1.0-4.8) k/uL Monocytes # 0.5 (0-1.0) k/uL Eosinophils # 0.1 (0-0.7) k/uL Basophils # 0.0 (0-0.2) k/uL Manual Slide Review Performed Hypochromasia Marked Anisocytosis Slight Macrocytosis Marked PT (9.0-12.0) sec INR (<1.2) APTT (22.0-30.0) sec Sodium 139 (137-145) mmol/L Potassium 4.4 (3.5-5.1) mmol/L Chloride 102 (98-107) mmol/L Carbon Dioxide 23 (22-30) mmol/L Anion Gap 14 mmol/L BUN 54 H (7-17) mg/dL Creatinine 2.46 H (0.52-1.04) mg/dL Est GFR (CKD-EPI)AfAm 20 (>60 ml/min/1.73 sqM) Est GFR (CKD-EPI)NonAf 17 (>60 ml/min/1.73 sqM) Glucose 157 H (74-99) mg/dL Calcium 9.4 (8.4-10.2) mg/dL Total Bilirubin 2.2 H (0.2-1.3) mg/dL AST 25 (14-36) U/L ALT 27 (9-52) U/L Alkaline Phosphatase 101 (38-126) U/L Total Creatine Kinase <20 L (30-135) U/L CK-MB (CK-2) 0.8 (0.0-2.4) ng/mL CK-MB (CK-2) Rel Index Troponin I <0.012 (0.000-0.034) ng/mL NT-Pro-B Natriuret Pep pg/mL Total Protein 6.8 (6.3-8.2) g/dL Albumin 3.7 (3.5-5.0) g/dL 06/02/18 06/02/18 Range/Units 11:00 11:00 WBC (3.8-10.6) k/uL RBC (3.80-5.40) m/uL Hgb (11.4-16.0) gm/dL Hct (34.0-46.0) % MCV (80.0-100.0) fL MCH (25.0-35.0) pg MCHC (31.0-37.0) g/dL RDW (11.5-15.5) % Plt Count (150-450) k/uL Neutrophils % % Lymphocytes % % Monocytes % % Eosinophils % % Basophils % % Neutrophils # (1.3-7.7) k/uL Lymphocytes # (1.0-4.8) k/uL Monocytes # (0-1.0) k/uL Eosinophils # (0-0.7) k/uL Basophils # (0-0.2) k/uL Manual Slide Review Hypochromasia Anisocytosis Macrocytosis PT 12.8 H (9.0-12.0) sec INR 1.4 H (<1.2) APTT 34.8 H (22.0-30.0) sec Sodium (137-145) mmol/L Potassium (3.5-5.1) mmol/L Chloride (98-107) mmol/L Carbon Dioxide (22-30) mmol/L Anion Gap mmol/L BUN (7-17) mg/dL Creatinine (0.52-1.04) mg/dL Est GFR (CKD-EPI)AfAm (>60 ml/min/1.73 sqM) Est GFR (CKD-EPI)NonAf (>60 ml/min/1.73 sqM) Glucose (74-99) mg/dL Calcium (8.4-10.2) mg/dL Total Bilirubin (0.2-1.3) mg/dL AST (14-36) U/L ALT (9-52) U/L Alkaline Phosphatase (38-126) U/L Total Creatine Kinase (30-135) U/L CK-MB (CK-2) (0.0-2.4) ng/mL CK-MB (CK-2) Rel Index Troponin I (0.000-0.034) ng/mL NT-Pro-B Natriuret Pep 10650 pg/mL Total Protein (6.3-8.2) g/dL Albumin (3.5-5.0) g/dL - Radiology Data Radiology results: image reviewed (Chest x-ray with findings consistent of mild heart failure) Disposition Clinical Impression: Congestive heart failure (CHF) Disposition: ADMITTED IP TO THIS HOSP Is patient prescribed a controlled substance at d/c from ED?: No Referrals: Jak Nathan MD [Primary Care Provider] - 1-2 days Decision Time: 13:11
[2018-06-02 11:33] LABS: Albumin 3.7 g/dL (3.5-5.0); Calcium 9.4 mg/dL (8.4-10.2); Total Bilirubin 2.2 mg/dL (0.2-1.3); Total Protein 6.8 g/dL (6.3-8.2)
[2018-06-02 11:34] LABS: Anisocytosis Slight; Basophils % (A) 0 %; Eosinophils # (A) 0.1 k/uL (0-0.7); Eosinophils % (A) 1 %; HGB 13.1 gm/dL (11.4-16.0); Hypochromasia Marked; Lymphocytes # (A) 1.4 k/uL (1.0-4.8); Lymphocytes % (A) 13 %; MCH 35.2 pg (25.0-35.0); MCHC 30.6 g/dL (31.0-37.0); MCV 115.1 fL (80.0-100.0); Macrocytosis Marked; Mean Platelet Volume 8.5; Monocytes # (A) 0.5 k/uL (0-1.0); Monocytes % (A) 4 %; Neutrophils # (A) 9.1 k/uL (1.3-7.7); Neutrophils % (A) 80 %; Platelet Count 202 k/uL (150-450); RBC 3.73 m/uL (3.80-5.40); WBC 11.4 k/uL (3.8-10.6)
[2018-06-02 11:42] LABS: Creatine Kinase <20 U/L (30-135)
--- NOTE | 2018-06-02 11:42 | XR ---
EXAMINATION TYPE: XR chest 2V DATE OF EXAM: 06/02/2018 HISTORY: difficulty breathing. REFERENCE: Previous study dated 04/10/2018. FINDINGS: The heart is enlarged in this has worsened from the previous study. There is vascular conge stion. There are small, bilateral effusions. I cannot exclude some mild interstitial change. IMPRESSION: FINDINGS CONSISTENT WITH MILD HEART FAILURE.
[2018-06-02 11:54] LABS: Potassium 4.4 mmol/L (3.5-5.1)
[2018-06-02 11:56] LABS: Creatine Kinase MB 0.8 ng/mL (0.0-2.4); Troponin I <0.012 ng/mL (0.000-0.034)
[2018-06-02 11:58] LABS: INR 1.4 (<1.2); Partial Thromboplastin Time 34.8 sec (22.0-30.0); Prothrombin Time 12.8 sec (9.0-12.0)
[2018-06-02] MEDS ORDERED: ASPIRIN 325 MG TAB PO STA (13:12)
[2018-06-02] MEDS ORDERED: FUROSEMIDE 10 MG/ML 4 ML VIAL IV SCH (18:00)
[2018-06-02] MEDS ORDERED: traMADol 50 MG TAB PO STA (18:54)
[2018-06-02] MEDS ORDERED: METOPROLOL TARTRATE 25 MG TAB PO STA (18:55)
[2018-06-02] MEDS: NITROGLYCERIN OINT 1 INCH/GM PACKET TOPICAL SCH ×2 (20:54→22:56)
[2018-06-02 21:20] LABS: Glucose,Whole Blood 111 mg/dL (75-99)
[2018-06-02] MEDS ORDERED: METOPROLOL TARTRATE 25 MG TAB PO SCH (21:45)
[2018-06-02] MEDS ORDERED: traMADol 50 MG TAB PO PRN (23:00)
[2018-06-02] MEDS: METOPROLOL TARTRATE 50 MG TAB PO SCH (23:01)
[2018-06-02] MEDS: MIDODRINE 5 MG TAB PO SCH (23:01)
[2018-06-03] MEDS ORDERED: FUROSEMIDE 10 MG/ML 4 ML VIAL IV SCH (06:00)
[2018-06-03 06:23] LABS: Glucose,Whole Blood 103 mg/dL (75-99)
[2018-06-03] MEDS: INSULIN ASPART 100 UNIT/ML 1 ML 10 ML VIAL SQ SCH ×4 (06:26→21:20)
[2018-06-03] MEDS: MIDODRINE 5 MG TAB PO SCH ×2 (06:38→16:10)
[2018-06-03] MEDS: PANTOPRAZOLE 40 MG TABLET PO SCH (06:38)
[2018-06-03] MEDS: Brinzolamide/Brimonidine Tart [Simbrinza 1%-0.2% Eye Drops] BOTH EYES SCH ×2 (06:47→19:51)
[2018-06-03] MEDS ORDERED: NON-FORMULARY DRUG (Vit C/E/Zn/Coppr/Lutein/Zeaxan [Preservision Areds 2 Softgel] 1 CAP) PO SCH (08:00)
[2018-06-03] MEDS ORDERED: WHEAT DEXTRIN PO SCH (08:00)
[2018-06-03] MEDS ORDERED: NON-FORMULARY DRUG (Garlic [Garlic] 1 TAB) PO SCH (09:00)
[2018-06-03] MEDS: NITROGLYCERIN OINT 1 INCH/GM PACKET TOPICAL SCH (10:16)
[2018-06-03] MEDS: FERROUS SULFATE 325 MG TAB PO SCH (10:16)
[2018-06-03] MEDS: CALCITRIOL 0.25 MCG CAP PO SCH (10:16)
[2018-06-03] MEDS: SODIUM BICARBONATE TAB 650 MG TAB PO SCH ×2 (10:16→19:51)
[2018-06-03] MEDS: POTASSIUM CHLORIDE ER 10 MEQ TAB.ER.PRT PO SCH (10:17)
[2018-06-03] MEDS: POTASSIUM CHLORIDE ER 20 MEQ TAB.ER PO SCH (10:17)
[2018-06-03] MEDS: DOCUSATE 100 MG CAP PO SCH ×2 (10:17→19:51)
[2018-06-03] MEDS: RIVAROXABAN 10 MG TAB PO SCH (10:17)
[2018-06-03] MEDS: ISOSORBIDE MONONITRATE ER 60 MG TAB.ER.24H PO SCH (10:18)
[2018-06-03] MEDS: CHOLECALCIFEROL 1,000 UNIT TAB PO SCH (10:18)
[2018-06-03] MEDS: ALLOPURINOL 100 MG TAB PO SCH (10:18)
[2018-06-03] MEDS: MAGNESIUM OXIDE 400 MG TAB PO SCH (10:18)
[2018-06-03] MEDS: METOPROLOL TARTRATE 50 MG TAB PO SCH ×2 (10:18→19:51)
[2018-06-03] MEDS: NON-FORMULARY DRUG (Garlic [Garlic] 1 TAB) PO SCH ×2 (10:19→19:51)
[2018-06-03] MEDS: Wheat Dextrin [Benefiber] PO SCH ×2 (10:19→19:55)
[2018-06-03] MEDS: [UNRECOGNIZED DRUG - OTHER] PO SCH ×2 (10:19→19:52)
[2018-06-03 12:20] LABS: Glucose,Whole Blood 134 mg/dL (75-99)
[2018-06-03] MEDS: FUROSEMIDE 10 MG/ML 4 ML VIAL IV SCH (13:09)
[2018-06-03] MEDS ORDERED: ASPIRIN 325 MG TAB PO SCH (13:14)
[2018-06-03] MEDS: METOPROLOL TARTRATE 25 MG TAB PO SCH (13:18)
--- NOTE | 2018-06-03 13:42 | CONS ---
CONSULTATION Ms. Carrillo is an 83-year-old female with a known history of chronic persistent atrial fibrillation, history of congestive heart failure, chronic kidney disease who presented to the hospital with symptoms of progressive dyspnea that happened over the last couple days with weight gain. She had taken extra diuretics without a lot of improvement and because of that she came into the emergency room. She has some cough productive of clear sputum. She had no fever. She had some peripheral edema. No palpitation. No dizziness. Her ejection fraction is in the 45% in the past, but she had moderate severe mitral regurgitation. The patient was not felt to be a candidate for surgical intervention and was treated medically. The patient has been anticoagulated all along and has a history of DVT and [place] filter placement. On presentation her medications include: Tramadol, Demodex 10 mg twice a day, sodium bicarb, Xarelto 10 mg daily, potassium, midodrine, metoprolol tartrate at 25 mg daily, magnesium, Tradjenta, Zyloprim. REVIEW OF SYSTEMS: RESPIRATORY SYSTEM: She had dyspnea on exertion. She has the cough. No recent wheezing. GI SYSTEM: No recent GI bleed. No peptic ulcer disease. SYSTEM: No dysuria or hematuria. NERVOUS SYSTEM: No history of seizure. PHYSICAL EXAMINATION: 83-year-old female, alert, oriented, in no apparent distress. Blood pressure 148/90 with a heart in the 70s. HEAD: Normocephalic. EYES: Sclerae anicteric. NECK: Good upstroke, no bruit. LUNGS: With few crackles at the bases. HEART: Irregular regular S1, S2. No S3 with a holosystolic murmur. No diastolic murmur, no rub. ABDOMEN: Soft, nontender. EXTREMITIES: 1+ edema. LAB DATA: Revealed hemoglobin of 13.1. INR of 1.4. BUN and creatinine 54 and 2.46. Troponin less than 0.012. NT proBNP of 19,800. EKG shows atrial fibrillation with nonspecific ST-T wave changes and poor R progression. Her chest x-ray shows mild heart failure. IMPRESSION: 1. Worsening heart failure, was mildly impaired left ventricular systolic functions and significant valve disease. 2. Chronic kidney disease. 3. Persistent chronic atrial fibrillation. 4. Prior history of DVT. RECOMMENDATION: From the cardiac standpoint, I will continue on intravenous diuretics. I will follow her renal function closely, adjust her medical regimen and depending on her progress, further recommendation will be made. The patient has been compliant with his salt intake in the recent past and has done well with that. Unfortunately, the long-term prognosis remains guarded. Thank you for this consult. We will follow with you. EL / LUCI: [id number] /
--- NOTE | 2018-06-03 13:43 | P.HPIM ---
History of Present Illness H&P Date: 06/03/18 Chief Complaint: Nausea and shortness of breath Trina Carrillo is an 83-year-old female patient of Dr. Nathan who presented to [facility] emergency room with a chief complaint of nausea and worsening shortness of breath. Patient has a known history of congestive heart failure she had an echocardiogram in November 2017 which revealed an ejection fraction of 40-45% she was admitted recently to [facility] with acute congestive heart failure exacerbation and was discharged home on 02/2018 patient has been doing well since then. However in the last few days she started having episodes of nausea and worsening shortness of breath and weight gain with lower extremity edema she decided to come to emergency room. In the ER patient was evaluated her clinical picture, BNP level, and chest x- ray were all compatible with acute congestive heart failure exacerbation, she was started on IV Lasix, oral Demadex was held patient was admitted to telemetry floor, cardiology consultation was requested. Patient has a known history of atrial fibrillation heart rate on presentation was 99 she is maintained on Xarelto for anticoagulation. Past Medical History Past Medical History: Atrial Fibrillation, Coronary Artery Disease (CAD), Cancer , Heart Failure, Diabetes Mellitus, Deep Vein Thrombosis (DVT), Eye Disorder, GERD/Reflux, Hypertension, Renal Disease Additional Past Medical History / Comment(s): Macular Degeneration and gluacoma , gallstones, stage 3 kidney failure, hx Uterine & groin CA; WEARS BILAT THIGH HIGH HOSE, uses cane or walker, patient states she has "2 blood clots in right groin since 2003" family states now clot is "through the whole leg" CHF, History of Any Multi-Drug Resistant Organisms: ESBL, VRE Date of last positivie culture/infection: 02/15/18 MDRO Source:: urine, E.coli, VRE 09/29/13 Past Surgical History: Appendectomy, Bowel Resection, Hysterectomy, Joint Replacement Additional Past Surgical History / Comment(s): gastrointestinal surgery for bowel obstruction. left hip replacement, rt breast biopsy, darcy filter rt leg, biopsy of right nostril no results yet Past Anesthesia/Blood Transfusion Reactions: No Reported Reaction Past Psychological History: No Psychological Hx Reported Smoking Status: Former smoker Past Alcohol Use History: None Reported Additional Past Alcohol Use History / Comment(s): smoked 1 pkg from 1962 to 1971 Past Drug Use History: None Reported - Past Family History Mother Family Medical History: No Reported History Medications and Allergies Home Medications Medication Instructions Recorded Confirmed Type Allopurinol [Zyloprim] 200 mg PO DAILY@0800 01/22/14 06/02/18 History Linagliptin [Tradjenta] 5 mg PO DAILY@1500 01/22/14 06/02/18 History Omeprazole [PriLOSEC] 20 mg PO DAILY@0700 01/22/14 06/02/18 History Docusate Sodium [Stool Softener] 100 mg PO BID@0900,199902/22/14 06/02/18 History Garlic 1 tab PO BID@09,199902/22/14 06/02/18 History Calcitriol 0.25 mcg PO SUTUTHSA@0800 08/22/14 06/02/18 History Magnesium Oxide [Mag-Ox] 400 mg PO DAILY@0800 01/13/16 06/02/18 History traMADol HCL [Ultram] 50 mg PO TID@0800,1500,2300 01/13/16 06/02/18 History Brinzolamide/Brimonidine Tart 1 drop BOTH EYES BID@0700,199905/11/17 06/02/18 History [Simbrinza 1%-0.2% Eye Drops] Vit C/E/Zn/Coppr/Lutein/Zeaxan 1 cap PO BID@0800,199912/03/17 06/02/18 History [Preservision Areds 2 Softgel] Ferrous Sulfate [Feosol] 325 mg PO DAILY@0801/11/18 06/02/18 History Ammonium Lactate Cream [Lac-Hydrin 1 applic TOPICAL BID@07,199902/10/1806/02 History 12% Cream] Cholecalciferol (Vitamin D3) 2,000 unit PO DAILY@79902/10/18 06/02/18 History [Vitamin D3] Isosorbide Mononitrate ER [Imdur] 60 mg PO DAILY@0800 02/10/18 06/02/18 History Wheat Dextrin [Benefiber] 1 packet PO BID@0800,199902/10/18 06/02/18 History Midodrine [ProAmatine] 5 mg PO TID@0700,1500,2300 04/10/18 06/02/18 History Rivaroxaban [Xarelto] 10 mg PO DAILY@0800 04/10/18 06/02/18 History Metoprolol Tartrate [Lopressor] 25 mg PO DIRECTED #90 tab 04/13/18 06/02/18 Rx Potassium Chloride ER [K-Dur 20] 20 meq PO DAILY #30 tab 04/13/18 06/02/18 Rx Sodium Bicarbonate Tab 650 mg PO BID #60 tab 04/13/18 06/02/18 Rx Potassium Chloride ER [K-Dur 10] 10 meq PO DAILY 06/02/18 06/02/18 History Torsemide [Demadex] 10 mg PO BID@0900,1500 06/02/18 06/02/18 History Allergies Allergy/AdvReac Type Severity Reaction Status Date / Time atorvastatin calcium Allergy Unknown Verified 06/02/18 13:03 [From Lipitor] codeine Allergy Unknown Verified 06/02/18 13:03 [From Tylenol-Codeine #3] hydrocodone Allergy Vomiting Verified 06/02/18 13:03 Physical Exam Vitals: Vital Signs Temp Pulse Pulse Resp BP BP Pulse Ox 06/03/18 08:00 97.7 F 79 14 148/93 96 06/03/18 04:00 97 F L 110 H 18 119/88 100 06/03/18 01:04 168/99 06/03/18 00:00 97.8 F 99 18 123/87 98 06/02/18 20:00 97.7 F 111 H 18 111/87 99 06/02/18 19:00 92 12 134/83 96 06/02/18 18:30 100 15 125/99 93 L 06/02/18 18:00 96 10 L 121/86 95 06/02/18 17:30 88 15 121/91 96 06/02/18 17:00 95 17 123/98 96 06/02/18 16:30 88 11 L 116/90 91 L 06/02/18 16:00 105 H 15 124/93 96 06/02/18 15:40 91 11 L 124/93 96 06/02/18 14:00 97 18 128/106 96 Intake and Output 06/02/18 06/03/18 06/03/18 22:59 06:59 14:59 Intake Total 10 10 Balance 10 10 Intake: IV 10 10 0.9 10 10 Other: Voiding Method Toilet Toilet Weight 76.9 kg In general patient is alert and oriented 3 in no apparent distress HEENT head normocephalic and atraumatic Neck is supple no JVD no goiter no lymphadenopathy Chest exam reveals a few scattered rhonchi in bases no wheezing Cardiac exam reveals regular heart sounds S1 and S2 no gallops no murmurs Abdomen is soft nontender no organomegaly with normal bowel sounds Extremity exam reveals 2+ edema no cyanosis or clubbing Neurological examination reveals no gross focal deficit Results CBC & Chem 7: 06/02/18 11:00 06/02/18 11:00 Labs: Abnormal Lab Results - Last 24 Hours (Table) 06/02/18 06/03/18 06/03/18 Range/Units 21:17 06:01 11:56 POC Glucose (mg/dL) 111 H 103 H 134 H (75-99) mg/dL Thrombosis Risk Factor Assmnt - Choose All That Apply Any of the Below Risk Factors Present?: Yes Each Factor Represents 1 point: Swollen legs (current) Each Risk Factor Represents 3 Points: Age 75 years or older, Family history of DVT/PE Thrombosis Risk Factor Assessment Total Risk Factor Score: 7 Thrombosis Risk Factor Assessment Level: High Risk Assessment and Plan Plan: #1 acute on chronic systolic congestive heart failure exacerbation #2 atrial fibrillation chronic heart rate is well-controlled, maintained on Xarelto for anticoagulation #3 nausea, cause is unclear family is relating that to taking potassium. We will add Zofran if not improving will proceed with further testing for nausea #4 history of chronic kidney disease stage IV #5 underlying history of hypertension #6 underlying history of diabetes mellitus type 2 continue home medication and add insulin sliding scale #7 underlying history of gout #8 Underlying history of chronic back pain #9 Chronic history of gallstones patient evaluated by surgery last admission no surgical intervention recommended at that time At this time patient is maintained on IV Lasix will monitor daily weight lower extremity edema and respiratory status We will add Zofran and monitor response with nausea Will obtain ultrasound of the gallbladder to assess if there is any evidence of common bile duct stones or acute cholecystitis Will recheck labs and follow in a.m.
[2018-06-03] MEDS: LINAGLIPTIN 5 MG TABLET PO SCH (16:10)
[2018-06-03 17:10] LABS: Glucose,Whole Blood 124 mg/dL (75-99)
--- NOTE | 2018-06-03 18:05 | P.CNPUL ---
History of Present Illness Consult date: 06/03/18 Reason for consult: dyspnea, cough, hypoxemia, pleural effusion Chief complaint: Shortness of breath History of present illness: 83-year-old female with the history of chronic atrial fibrillation and chronic systolic and diastolic heart failure with baseline ejection fraction of 40-45% patient does have a history of the pleural effusion requiring thoracentesis in the past however lately her fluid status has been fairly stable does follow in outpatient setting for her chronic intermittent asthma as well as pleural effusion, patient has not been feeling well with increasing shortness of breath started about 3-4 days ago, prior exacerbation occurred back in April she has been doing otherwise fairly well has intermittent cough but stable severity denies any sputum production she also noted increased swelling of the lower extremity patient presented into the emergency department she was seen eval reexamined has been admitted to hospital she has received IV furosemide with good urine output she has lost close to about 7-10 pounds in last 24 hours with diuresis, she is legally blind, she is on anticoagulation and tolerating very well, on specific questioning he denies any seizure-like to a loss of consciousness), denies any night sweats fever or chills denies any chest pain, denies any other bowel or bladder dysfunction, patient does have a chronic lower extremity swelling which has progressed in the last few days but settling down now, Review of Systems All systems: negative Past Medical History Past Medical History: Atrial Fibrillation, Coronary Artery Disease (CAD), Cancer , Heart Failure, Diabetes Mellitus, Deep Vein Thrombosis (DVT), Eye Disorder, GERD/Reflux, Hypertension, Renal Disease Additional Past Medical History / Comment(s): Macular Degeneration and gluacoma , gallstones, stage 3 kidney failure, hx Uterine & groin CA; WEARS BILAT THIGH HIGH HOSE, uses cane or walker, patient states she has "2 blood clots in right groin since 2003" family states now clot is "through the whole leg" CHF, History of Any Multi-Drug Resistant Organisms: ESBL, VRE Date of last positivie culture/infection: 02/15/18 MDRO Source:: urine, E.coli, VRE 09/29/13 Past Surgical History: Appendectomy, Bowel Resection, Hysterectomy, Joint Replacement Additional Past Surgical History / Comment(s): gastrointestinal surgery for bowel obstruction. left hip replacement, rt breast biopsy, darcy filter rt leg, biopsy of right nostril no results yet Past Anesthesia/Blood Transfusion Reactions: No Reported Reaction Past Psychological History: No Psychological Hx Reported Smoking Status: Former smoker Past Alcohol Use History: None Reported Additional Past Alcohol Use History / Comment(s): smoked 1 pkg from 2 to 1971 Past Drug Use History: None Reported - Past Family History Mother Family Medical History: No Reported History Medications and Allergies Home Medications Medication Instructions Recorded Confirmed Type Allopurinol [Zyloprim] 200 mg PO DAILY@0800 01/22/14 06/02/18 History Linagliptin [Tradjenta] 5 mg PO DAILY@1500 01/22/14 06/02/18 History Omeprazole [PriLOSEC] 20 mg PO DAILY@0701/22/14 06/02/18 History Docusate Sodium [Stool Softener] 100 mg PO BID@0900,199902/22/14 06/02/18 History Garlic 1 tab PO BID@899,199902/22/14 06/02/18 History Calcitriol 0.25 mcg PO SUTUTHSA@0800 08/22/14 06/02/18 History Magnesium Oxide [Mag-Ox] 400 mg PO DAILY@0801/13/16 06/02/18 History traMADol HCL [Ultram] 50 mg PO TID@0800,1500,2300 01/13/16 06/02/18 History Brinzolamide/Brimonidine Tart 1 drop BOTH EYES BID@699,199905/11/17 06/02/18 History [Simbrinza 1%-0.2% Eye Drops] Vit C/E/Zn/Coppr/Lutein/Zeaxan 1 cap PO BID@0800,199912/03/17 06/02/18 History [Preservision Areds 2 Softgel] Ferrous Sulfate [Feosol] 325 mg PO DAILY@79901/11/18 06/02/18 History Ammonium Lactate Cream [Lac-Hydrin 1 applic TOPICAL BID@699,199902/10/1806/02 History 12% Cream] Cholecalciferol (Vitamin D3) 2,000 unit PO DAILY@0800 02/10/18 06/02/18 History [Vitamin D3] Isosorbide Mononitrate ER [Imdur] 60 mg PO DAILY@0800 02/10/18 06/02/18 History Wheat Dextrin [Benefiber] 1 packet PO BID@0800,2000 02/10/18 06/02/18 History Midodrine [ProAmatine] 5 mg PO TID@0700,1500,2300 04/10/18 06/02/18 History Rivaroxaban [Xarelto] 10 mg PO DAILY@0800 04/10/18 06/02/18 History Metoprolol Tartrate [Lopressor] 25 mg PO DIRECTED #90 tab 04/13/18 06/02/18 Rx Potassium Chloride ER [K-Dur 20] 20 meq PO DAILY #30 tab 04/13/18 06/02/18 Rx Sodium Bicarbonate Tab 650 mg PO BID #60 tab 04/13/18 06/02/18 Rx Potassium Chloride ER [K-Dur 10] 10 meq PO DAILY 06/02/18 06/02/18 History Torsemide [Demadex] 10 mg PO BID@0900,1500 06/02/18 06/02/18 History Allergies Allergy/AdvReac Type Severity Reaction Status Date / Time atorvastatin calcium Allergy Unknown Verified 06/02/18 13:03 [From Lipitor] codeine Allergy Unknown Verified 06/02/18 13:03 [From Tylenol-Codeine #3] hydrocodone Allergy Vomiting Verified 06/02/18 13:03 Physical Exam Vitals: Vital Signs Temp Pulse Pulse Resp BP BP Pulse Ox 06/03/18 16:00 98.7 F 103 H 18 102/68 96 06/03/18 12:00 96 14 107/71 96 06/03/18 08:00 97.8 F 79 16 92/59 97 06/03/18 04:00 97 F L 110 H 18 119/88 100 06/03/18 01:04 168/99 06/03/18 00:00 97.8 F 99 18 123/87 98 06/02/18 20:00 97.7 F 111 H 18 111/87 99 06/02/18 19:00 92 12 134/83 96 06/02/18 18:30 100 15 125/99 93 L 06/02/18 18:00 96 10 L 121/86 95 Intake and Output 06/03/18 06/03/18 06/03/18 06:59 14:59 22:59 Intake Total 10 Balance 10 Intake: IV 10 0.9 10 Other: Voiding Method Toilet Toilet Weight 76.9 kg - Constitutional General appearance: cooperative, disheveled, mild distress - EENT Eyes: EOMI, PERRLA, normal appearance ENT: hard of hearing, normal oropharynx Ears: bilateral: normal - Neck Neck: normal ROM Carotids: bilateral: upstroke normal, bruit absent Thyroid: bilateral: normal size - Respiratory Respiratory: bilateral: diminished, rales, negative: dullness, rhonchi, wheezing , prolonged expiration, prolonged inspiration - Cardiovascular Rhythm: irregularly irregular Heart sounds: normal: S1, S2 - Gastrointestinal General gastrointestinal: decreased bowel sounds, distended, normal bowel sounds , soft - Integumentary Integumentary: normal turgor - Musculoskeletal Musculoskeletal: gait normal, generalized weakness, strength equal bilaterally - Psychiatric Psychiatric: A&O x's 3, appropriate affect, intact judgment & insight Results - Laboratory Findings CBC and BMP: 06/02/18 11:00 06/02/18 11:00 PT/INR, D-dimer PT 12.8 sec (9.0-12.0) H 06/02/18 11:00 INR 1.4 (<1.2) H 06/02/18 11:00 Abnormal lab findings: Abnormal Labs 06/02/18 06/02/18 06/02/18 11:00 11:00 11:00 WBC 11.4 H RBC 3.73 L MCV 115.1 H MCH 35.2 H MCHC 30.6 L RDW 18.0 H Neutrophils # 9.1 H PT INR APTT BUN 54 H Creatinine 2.46 H Glucose 157 H POC Glucose (mg/dL) Total Bilirubin 2.2 H Total Creatine Kinase <20 L 06/02/18 06/02/18 06/03/18 11:00 21:17 06:01 WBC RBC MCV MCH MCHC RDW Neutrophils # PT 12.8 H INR 1.4 H APTT 34.8 H BUN Creatinine Glucose POC Glucose (mg/dL) 111 H 103 H Total Bilirubin Total Creatine Kinase 06/03/18 06/03/18 11:56 17:08 WBC RBC MCV MCH MCHC RDW Neutrophils # PT INR APTT BUN Creatinine Glucose POC Glucose (mg/dL) 134 H 124 H Total Bilirubin Total Creatine Kinase - Diagnostic Findings Chest x-ray: report reviewed, image reviewed (Cardiomegaly, interstitial edema, very small bilateral pleural effusion) Assessment and Plan Assessment: Acute exacerbation of acute on chronic systolic heart failure as well as diastolic heart failure Small bilateral pleural effusion Atrial fibrillation with rapid ventricular response now better under control Chronic asthma mild intermittent, patient is being monitored off of therapy Chronic renal failure stage IV Hypertension hypertensive cardiovascular disease Type 2 diabetes mellitus with complication Chronic gout Legally blind Plan: Observe patient off of bronchodilators Pleural effusion is very small no plans for thoracentesis continue maximal medical therapy with diuresis with close monitoring and observation of renal function Continue anticoagulation Fall precautions Care plan discussed with the patient and son present at bedside at length, will follow closely Time with Patient: Greater than 30
[2018-06-03 20:34] LABS: Glucose,Whole Blood 166 mg/dL (75-99)
[2018-06-04] MEDS: MIDODRINE 5 MG TAB PO SCH ×4 (00:41→22:56)
[2018-06-04] MEDS: FUROSEMIDE 10 MG/ML 4 ML VIAL IV SCH ×3 (00:41→22:56)
[2018-06-04 05:53] LABS: Glucose,Whole Blood 121 mg/dL (75-99)
[2018-06-04] MEDS: INSULIN ASPART 100 UNIT/ML 1 ML 10 ML VIAL SQ SCH ×4 (06:03→21:18)
[2018-06-04] MEDS: Brinzolamide/Brimonidine Tart [Simbrinza 1%-0.2% Eye Drops] BOTH EYES SCH ×2 (06:34→20:03)
[2018-06-04] MEDS: PANTOPRAZOLE 40 MG TABLET PO SCH (06:34)
[2018-06-04 07:03] LABS: Anisocytosis Slight; Basophils % (A) 0 %; Eosinophils # (A) 0.1 k/uL (0-0.7); Eosinophils % (A) 2 %; HCT 38.2 % (34.0-46.0); HGB 11.9 gm/dL (11.4-16.0); Hypochromasia Moderate; Lymphocytes # (A) 1.5 k/uL (1.0-4.8); Lymphocytes % (A) 16 %; MCH 35.9 pg (25.0-35.0); MCHC 31.3 g/dL (31.0-37.0); MCV 114.8 fL (80.0-100.0); Mean Platelet Volume 8.4; Monocytes # (A) 0.5 k/uL (0-1.0); Monocytes % (A) 6 %; Neutrophils # (A) 6.8 k/uL (1.3-7.7); Neutrophils % (A) 74 %; Platelet Count 180 k/uL (150-450); RBC 3.32 m/uL (3.80-5.40); RDW 18.5 % (11.5-15.5); WBC 9.2 k/uL (3.8-10.6)
[2018-06-04 07:13] LABS: Macrocytosis Marked
[2018-06-04 08:42] LABS: Albumin 2.9 g/dL (3.5-5.0); Calcium 9.1 mg/dL (8.4-10.2); Potassium 4.1 mmol/L (3.5-5.1); Total Bilirubin 1.6 mg/dL (0.2-1.3); Total Protein 5.8 g/dL (6.3-8.2)
[2018-06-04] MEDS: CHOLECALCIFEROL 1,000 UNIT TAB PO SCH (08:49)
[2018-06-04] MEDS: ALLOPURINOL 100 MG TAB PO SCH (08:49)
[2018-06-04] MEDS: ISOSORBIDE MONONITRATE ER 60 MG TAB.ER.24H PO SCH (08:50)
[2018-06-04] MEDS: FERROUS SULFATE 325 MG TAB PO SCH (08:50)
[2018-06-04] MEDS: RIVAROXABAN 10 MG TAB PO SCH (08:50)
[2018-06-04] MEDS: [UNRECOGNIZED DRUG - OTHER] PO SCH ×2 (08:50→20:03)
[2018-06-04] MEDS: MAGNESIUM OXIDE 400 MG TAB PO SCH (08:50)
[2018-06-04] MEDS: Wheat Dextrin [Benefiber] PO SCH ×2 (08:50→20:03)
[2018-06-04] MEDS: NON-FORMULARY DRUG (Garlic [Garlic] 1 TAB) PO SCH (08:52)
[2018-06-04] MEDS: DOCUSATE 100 MG CAP PO SCH ×2 (08:52→20:03)
[2018-06-04] MEDS: POTASSIUM CHLORIDE ER 10 MEQ TAB.ER.PRT PO SCH (08:53)
[2018-06-04] MEDS: METOPROLOL TARTRATE 50 MG TAB PO SCH ×2 (08:53→20:07)
[2018-06-04] MEDS: POTASSIUM CHLORIDE ER 20 MEQ TAB.ER PO SCH (08:53)
[2018-06-04] MEDS: SODIUM BICARBONATE TAB 650 MG TAB PO SCH ×2 (08:53→20:07)
[2018-06-04 10:31] LABS: Hemoglobin A1C 6.8 % (4.0-6.0)
[2018-06-04 11:23] LABS: Glucose,Whole Blood 142 mg/dL (75-99)
[2018-06-04] MEDS: METOPROLOL TARTRATE 25 MG TAB PO SCH (11:45)
--- NOTE | 2018-06-04 11:47 | P.PN ---
Subjective Progress Note Date: 06/04/18 Trina Carrillo is an 83-year-old female patient of Dr. Nathan who presented to [facility] emergency room with a chief complaint of nausea and worsening shortness of breath. Patient has a known history of congestive heart failure she had an echocardiogram in November 2017 which revealed an ejection fraction of 40-45% she was admitted recently to [facility] with acute congestive heart failure exacerbation and was discharged home on 02/2018 patient has been doing well since then. However in the last few days she started having episodes of nausea and worsening shortness of breath and weight gain with lower extremity edema she decided to come to emergency room. In the ER patient was evaluated her clinical picture, BNP level, and chest x- ray were all compatible with acute congestive heart failure exacerbation, she was started on IV Lasix, oral Demadex was held patient was admitted to telemetry floor, cardiology consultation was requested. Patient has a known history of atrial fibrillation heart rate on presentation was 99 she is maintained on Xarelto for anticoagulation. 06/04/2018 patient is reporting improvement in her shortness of breath since being placed on the IV Lasix. She is tolerating a diet no longer having any nausea or dry heaves. Initially an abdominal ultrasound was ordered this morning it was canceled. We'll look into further why ultrasound was canceled. At this time patient reports regular bowel movements. Denies any chest pain. Denies any difficulty or burning with urination. White count has normalized. Creatinine down from 2.46-2.34. Weight has gone up from 76.9 kg to 77.4 Objective - Vital Signs Vital signs: Vital Signs Temp 97.6 F 06/04/18 08:52 Pulse 86 06/04/18 08:52 Resp 18 06/04/18 08:52 BP 124/56 06/04/18 08:52 Pulse Ox 98 06/04/18 08:52 Intake & Output 06/03/18 06/04/18 06/04/18 18:59 06:59 18:59 Intake Total 360 Balance 360 Weight 77.4 kg Intake: Oral 360 Other: Voiding Method Toilet Toilet Toilet # Voids 1 1 # Bowel Movements 1 - Exam Head normocephalic Neck supple Lungs clear to auscultation bilaterally no wheezing or crackles Heart regular rate and rhythm S1-S2, no rub or gallop Abdomen is soft nontender nondistended positive bowel sounds no hepatosplenomegaly Extremities +1 edema bilaterally Neuro alert and orientated to 3 - Labs CBC & Chem 7: 06/04/18 05:45 06/04/18 05:45 Labs: Abnormal Lab Results - Last 24 Hours (Table) 06/02/18 06/03/18 06/03/18 Range/Units 11:00 11:56 17:08 RBC (3.80-5.40) m/uL MCV (80.0-100.0) fL MCH (25.0-35.0) pg RDW (11.5-15.5) % BUN (7-17) mg/dL Creatinine (0.52-1.04) mg/dL Glucose (74-99) mg/dL POC Glucose (mg/dL) 134 H 124 H (75-99) mg/dL Hemoglobin A1c 6.8 H (4.0-6.0) % Total Bilirubin (0.2-1.3) mg/dL Total Protein (6.3-8.2) g/dL Albumin (3.5-5.0) g/dL 06/03/18 06/04/18 06/04/18 Range/Units 20:31 05:45 05:45 RBC 3.32 L (3.80-5.40) m/uL MCV 114.8 H (80.0-100.0) fL MCH 35.9 H (25.0-35.0) pg RDW 18.5 H (11.5-15.5) % BUN 54 H (7-17) mg/dL Creatinine 2.34 H (0.52-1.04) mg/dL Glucose 119 H (74-99) mg/dL POC Glucose (mg/dL) 166 H (75-99) mg/dL Hemoglobin A1c (4.0-6.0) % Total Bilirubin 1.6 H (0.2-1.3) mg/dL Total Protein 5.8 L (6.3-8.2) g/dL Albumin 2.9 L (3.5-5.0) g/dL 06/04/18 06/04/18 Range/Units 05:48 11:21 RBC (3.80-5.40) m/uL MCV (80.0-100.0) fL MCH (25.0-35.0) pg RDW (11.5-15.5) % BUN (7-17) mg/dL Creatinine (0.52-1.04) mg/dL Glucose (74-99) mg/dL POC Glucose (mg/dL) 121 H 142 H (75-99) mg/dL Hemoglobin A1c (4.0-6.0) % Total Bilirubin (0.2-1.3) mg/dL Total Protein (6.3-8.2) g/dL Albumin (3.5-5.0) g/dL Assessment and Plan Assessment: #1 acute on chronic systolic congestive heart failure exacerbation. Last echo from November 2017 shows an EF of 40-45%. Continue with IV Lasix. Continue monitor I's and O's and daily weights. Cardiology following #2 chronic atrial fibrillation. heart rate is well-controlled, maintained on Xarelto for anticoagulation #3 nausea, cause is unclear family is relating that to taking potassium. #4 history of chronic kidney disease stage IV #5 underlying history of hypertension #6 underlying history of diabetes mellitus type 2 continue home medication and add insulin sliding scale #7 underlying history of gout #8 Underlying history of chronic back pain #9 Chronic history of gallstones patient evaluated by surgery last admission no surgical intervention recommended at that time GI prophylaxis Protonix and DVT prophylaxis Xarelto I performed an examination of the patient and discussed their management with the physician Sec Accountant. I have reviewed the Physician Sec Accountant's notes and agree with the documented findings and plan of care
--- NOTE | 2018-06-04 12:05 | P.PN ---
Subjective Progress Note Date: 06/04/18 Principal diagnosis: Acute exacerbation of CHF, acute on chronic systolic heart failure, atrial fibrillation with rapid ventricular response, coronary artery disease, history of prior lower extremity deep venous thrombosis, legally blind 06/04/2018, patient seen eval reexamined during the rounds clinically patient is doing slightly better in terms of breathing cuff congestion shortness of breath remains absent, does get short of breath on activity and exertion she has been diuresing very well labs reviewed medications reviewed, BUN/creatinine today is 54 and 2.34 83-year-old female with the history of chronic atrial fibrillation and chronic systolic and diastolic heart failure with baseline ejection fraction of 40-45% patient does have a history of the pleural effusion requiring thoracentesis in the past however lately her fluid status has been fairly stable does follow in outpatient setting for her chronic intermittent asthma as well as pleural effusion, patient has not been feeling well with increasing shortness of breath started about 3-4 days ago, prior exacerbation occurred back in April she has been doing otherwise fairly well has intermittent cough but stable severity denies any sputum production she also noted increased swelling of the lower extremity patient presented into the emergency department she was seen eval reexamined has been admitted to hospital she has received IV furosemide with good urine output she has lost close to about 7-10 pounds in last 24 hours with diuresis, she is legally blind, she is on anticoagulation and tolerating very well, on specific questioning he denies any seizure-like to a loss of consciousness), denies any night sweats fever or chills denies any chest pain, denies any other bowel or bladder dysfunction, patient does have a chronic lower extremity swelling which has progressed in the last few days but settling down now, Objective - Vital Signs Vital signs: Vital Signs Temp 97.6 F 06/04/18 08:52 Pulse 86 06/04/18 08:52 Resp 18 06/04/18 08:52 BP 124/56 06/04/18 08:52 Pulse Ox 98 06/04/18 08:52 Intake & Output 06/03/18 06/04/18 06/04/18 18:59 06:59 18:59 Intake Total 360 Balance 360 Weight 77.4 kg Intake: Oral 360 Other: Voiding Method Toilet Toilet Toilet # Voids 1 1 # Bowel Movements 1 - Exam Constitutional General appearance: cooperative, disheveled, mild distress - EENT Eyes: EOMI, PERRLA, normal appearance ENT: hard of hearing, normal oropharynx Ears: bilateral: normal - Neck Neck: normal ROM Carotids: bilateral: upstroke normal, bruit absent Thyroid: bilateral: normal size - Respiratory Respiratory: bilateral: diminished, rales, negative: dullness, rhonchi, wheezing , prolonged expiration, prolonged inspiration - Cardiovascular Rhythm: irregularly irregular Heart sounds: normal: S1, S2 - Gastrointestinal General gastrointestinal: decreased bowel sounds, distended, normal bowel sounds , soft - Integumentary Integumentary: normal turgor - Musculoskeletal Musculoskeletal: gait normal, generalized weakness, strength equal bilaterally - Psychiatric Psychiatric: A&O x's 3, appropriate affect, intact judgment & insight - Labs CBC & Chem 7: 06/04/18 05:45 06/04/18 05:45 Labs: Abnormal Lab Results - Last 24 Hours (Table) 06/02/18 06/03/18 06/03/18 Range/Units 11:00 11:56 17:08 RBC (3.80-5.40) m/uL MCV (80.0-100.0) fL MCH (25.0-35.0) pg RDW (11.5-15.5) % BUN (7-17) mg/dL Creatinine (0.52-1.04) mg/dL Glucose (74-99) mg/dL POC Glucose (mg/dL) 134 H 124 H (75-99) mg/dL Hemoglobin A1c 6.8 H (4.0-6.0) % Total Bilirubin (0.2-1.3) mg/dL Total Protein (6.3-8.2) g/dL Albumin (3.5-5.0) g/dL 06/03/18 06/04/18 06/04/18 Range/Units 20:31 05:45 05:45 RBC 3.32 L (3.80-5.40) m/uL MCV 114.8 H (80.0-100.0) fL MCH 35.9 H (25.0-35.0) pg RDW 18.5 H (11.5-15.5) % BUN 54 H (7-17) mg/dL Creatinine 2.34 H (0.52-1.04) mg/dL Glucose 119 H (74-99) mg/dL POC Glucose (mg/dL) 166 H (75-99) mg/dL Hemoglobin A1c (4.0-6.0) % Total Bilirubin 1.6 H (0.2-1.3) mg/dL Total Protein 5.8 L (6.3-8.2) g/dL Albumin 2.9 L (3.5-5.0) g/dL 06/04/18 06/04/18 Range/Units 05:48 11:21 RBC (3.80-5.40) m/uL MCV (80.0-100.0) fL MCH (25.0-35.0) pg RDW (11.5-15.5) % BUN (7-17) mg/dL Creatinine (0.52-1.04) mg/dL Glucose (74-99) mg/dL POC Glucose (mg/dL) 121 H 142 H (75-99) mg/dL Hemoglobin A1c (4.0-6.0) % Total Bilirubin (0.2-1.3) mg/dL Total Protein (6.3-8.2) g/dL Albumin (3.5-5.0) g/dL Assessment and Plan Assessment: Acute exacerbation of acute on chronic systolic heart failure as well as some component of diastolic heart failure Small bilateral pleural effusion Atrial fibrillation with rapid ventricular response now better under control Chronic asthma mild intermittent, patient is being monitored off of therapy Chronic renal failure stage IV Hypertension hypertensive cardiovascular disease Type 2 diabetes mellitus with complication Chronic gout Legally blind Plan: Observe patient off of bronchodilators Continue gentle diuresis monitor renal functions closely Pleural effusion is very small no plans for thoracentesis continue maximal medical therapy with diuresis with close monitoring and observation of renal function Continue anticoagulation Fall precautions Care plan discussed with the patient and daughter present at bedside at length, will follow closely Time with Patient: Greater than 30
[2018-06-04 13:56] VITALS: BMI 31.1
[2018-06-04] MEDS: LINAGLIPTIN 5 MG TABLET PO SCH (15:10)
[2018-06-04] MEDS: traMADol 50 MG TAB PO SCH ×2 (15:10→22:55)
--- NOTE | 2018-06-04 15:34 | P.PN ---
Subjective Progress Note Date: 06/04/18 This is a pleasant 83-year-old female who follows regularly with Dr. May in the office. She has known history of chronic kidney disease, chronic persistent atrial fibrillation, congestive heart failure, presented to the hospital with symptoms of progressively worsening shortness of breath with associated peripheral edema. Her ejection fraction was documented to be 45% in the past with moderate to severe mitral regurgitation. Patient was not felt to be a candidate for surgical intervention and was treated medically. She's been anticoagulated all along and has a history of DVT and [place] filter placement. Patient was seen and examined this morning, she sitting up in the chair at bedside. Breathing overall is significantly improved, she still continues to have at least one plus peripheral edema. He is diuresing however her weight reflected that it was up from yesterday. I pressure this morning 120 /70 with a heart rate in the 80s, 98% on room air. Sodium 142, potassium 4.1, BUN 54, creatinine 2.3. White blood cell count 9.2, hemoglobin 11.9, platelet count 180. Objective - Vital Signs Vital signs: Vital Signs Temp 97.6 F 06/04/18 08:52 Pulse 88 06/04/18 11:46 Resp 18 06/04/18 11:46 BP 119/71 06/04/18 11:46 Pulse Ox 98 06/04/18 11:46 Intake & Output 06/03/18 06/04/18 06/04/18 18:59 06:59 18:59 Intake Total 540 Balance 540 Weight 77.4 kg 77.4 kg Intake: Oral 540 Other: Voiding Method Toilet Toilet Toilet # Voids 1 1 # Bowel Movements 1 - Exam PHYSICAL EXAMINATION: GENERAL: 83-year-old female in no acute distress at the time of my examination HEENT: Head is atraumatic, normocephalic. Pupils equal, round. Sclera anicteric. Conjunctiva are clear. Mucous membranes of the mouth are moist. Neck is supple. There is no elevated jugular venous pressure. Carotid bruit is heard. HEART EXAMINATION: S1-S2 irregularly irregular a holosystolic murmur is heard. CHEST EXAMINATION: Lungs are clear to auscultation and precussion. No chest wall tenderness is noted on palpation or with deep breathing. ABDOMEN: Soft, nontender. Bowel sounds are heard. No organomegaly noted. EXTREMITIES: 2+ peripheral pulses with 2+ evidence of peripheral edema and no calf tenderness noted. NEUROLOGIC patient is awake, alert and oriented X3. . - Labs CBC & Chem 7: 06/04/18 05:45 06/04/18 05:45 Labs: Abnormal Lab Results - Last 24 Hours (Table) 06/02/18 06/03/18 06/03/18 Range/Units 11:00 17:08 20:31 RBC (3.80-5.40) m/uL MCV (80.0-100.0) fL MCH (25.0-35.0) pg RDW (11.5-15.5) % BUN (7-17) mg/dL Creatinine (0.52-1.04) mg/dL Glucose (74-99) mg/dL POC Glucose (mg/dL) 124 H 166 H (75-99) mg/dL Hemoglobin A1c 6.8 H (4.0-6.0) % Magnesium (1.6-2.3) mg/dL Total Bilirubin (0.2-1.3) mg/dL Total Protein (6.3-8.2) g/dL Albumin (3.5-5.0) g/dL 06/04/18 06/04/18 06/04/18 Range/Units 05:45 05:45 05:45 RBC 3.32 L (3.80-5.40) m/uL MCV 114.8 H (80.0-100.0) fL MCH 35.9 H (25.0-35.0) pg RDW 18.5 H (11.5-15.5) % BUN 54 H (7-17) mg/dL Creatinine 2.34 H (0.52-1.04) mg/dL Glucose 119 H (74-99) mg/dL POC Glucose (mg/dL) (75-99) mg/dL Hemoglobin A1c (4.0-6.0) % Magnesium 2.7 H (1.6-2.3) mg/dL Total Bilirubin 1.6 H (0.2-1.3) mg/dL Total Protein 5.8 L (6.3-8.2) g/dL Albumin 2.9 L (3.5-5.0) g/dL 06/04/18 06/04/18 Range/Units 05:48 11:21 RBC (3.80-5.40) m/uL MCV (80.0-100.0) fL MCH (25.0-35.0) pg RDW (11.5-15.5) % BUN (7-17) mg/dL Creatinine (0.52-1.04) mg/dL Glucose (74-99) mg/dL POC Glucose (mg/dL) 121 H 142 H (75-99) mg/dL Hemoglobin A1c (4.0-6.0) % Magnesium (1.6-2.3) mg/dL Total Bilirubin (0.2-1.3) mg/dL Total Protein (6.3-8.2) g/dL Albumin (3.5-5.0) g/dL Assessment and Plan Plan: Assessment and plan #1 systolic congestive heart failure acute on chronic #2 acute on chronic kidney disease #3 chronic persistent atrial fibrillation #4 history of DVT prior [place] filter placement #5 severe MR Plan From cardiology's perspective, we'll continue current dose of IV Lasix, check lytes BUN and creatinine in the morning. DNP note has been reviewed, I agree with a documented findings and plan of care. Patient was seen and examined.
[2018-06-04 16:20] LABS: Glucose,Whole Blood 121 mg/dL (75-99)
[2018-06-04 20:52] LABS: Glucose,Whole Blood 171 mg/dL (75-99)
[2018-06-05] MEDS: Brinzolamide/Brimonidine Tart [Simbrinza 1%-0.2% Eye Drops] BOTH EYES SCH ×2 (05:28→20:53)
[2018-06-05] MEDS: PANTOPRAZOLE 40 MG TABLET PO SCH (05:28)
[2018-06-05] MEDS: MIDODRINE 5 MG TAB PO SCH ×3 (05:28→22:32)
[2018-06-05 05:52] LABS: Glucose,Whole Blood 83 mg/dL (75-99)
[2018-06-05] MEDS: INSULIN ASPART 100 UNIT/ML 1 ML 10 ML VIAL SQ SCH ×4 (06:11→20:57)
[2018-06-05 07:13] LABS: Albumin 3.2 g/dL (3.5-5.0); Calcium 9.2 mg/dL (8.4-10.2); Potassium 3.9 mmol/L (3.5-5.1); Total Bilirubin 1.8 mg/dL (0.2-1.3); Total Protein 6.2 g/dL (6.3-8.2)
[2018-06-05 07:33] LABS: Anisocytosis Slight; Basophils % (A) 0 %; Eosinophils # (A) 0.2 k/uL (0-0.7); Eosinophils % (A) 2 %; HCT 39.7 % (34.0-46.0); HGB 11.9 gm/dL (11.4-16.0); Hypochromasia Marked; Lymphocytes # (A) 1.4 k/uL (1.0-4.8); Lymphocytes % (A) 17 %; MCH 35.3 pg (25.0-35.0); MCHC 30.1 g/dL (31.0-37.0); MCV 117.1 fL (80.0-100.0); Macrocytosis Marked; Mean Platelet Volume 8.3; Monocytes # (A) 0.4 k/uL (0-1.0); Monocytes % (A) 5 %; Neutrophils # (A) 6.1 k/uL (1.3-7.7); Neutrophils % (A) 73 %; Platelet Count 173 k/uL (150-450); RBC 3.39 m/uL (3.80-5.40); RDW 18.2 % (11.5-15.5); WBC 8.3 k/uL (3.8-10.6)
--- NOTE | 2018-06-05 08:27 | US ---
EXAMINATION TYPE: US abdomen complete DATE OF EXAM: 06/05/2018 COMPARISON: NONE CLINICAL HISTORY: abdominal pain, nausea. Abdominal pain, history of gallstones EXAM MEASUREMENTS: Liver Length: 16.4 cm Gallbladder Wall: 0.8 cm CBD: 0.3 cm Spleen: 9.5 cm Right Kidney: 10.1 x 4.2 x 5.0 cm Left Kidney: 10.4 x 5.0 x 4.7 cm Technical limitation due to overlying bowel content Pancreas: limited evaluation due to overlying bowel content Liver: appears wnl Gallbladder: multiple stones noted, thickened GB wall Evidence for sonographic Crawford's sign: no CBD: limited evaluation Spleen: wnl Right Kidney: thin renal cortex Left Kidney: thin renal cortex Upper IVC: wnl Abd Aorta: calcifications noted There is no ascites. Kidneys show normal cortical medullary differentiation. No hydronephrosis or per inephric fluid, no pathologic calcification. IMPRESSION: Cholelithiasis, correlate for cholecystitis
[2018-06-05 09:01] LABS: Target Cells Present
[2018-06-05] MEDS: ALLOPURINOL 100 MG TAB PO SCH (09:14)
[2018-06-05] MEDS: CALCITRIOL 0.25 MCG CAP PO SCH (09:14)
[2018-06-05] MEDS: METOPROLOL TARTRATE 50 MG TAB PO SCH ×2 (09:14→20:54)
[2018-06-05] MEDS: CHOLECALCIFEROL 1,000 UNIT TAB PO SCH (09:15)
[2018-06-05] MEDS: MAGNESIUM OXIDE 400 MG TAB PO SCH (09:15)
[2018-06-05] MEDS: DOCUSATE 100 MG CAP PO SCH ×2 (09:15→20:53)
[2018-06-05] MEDS: FERROUS SULFATE 325 MG TAB PO SCH (09:15)
[2018-06-05] MEDS: traMADol 50 MG TAB PO SCH ×3 (09:15→22:32)
[2018-06-05] MEDS: SODIUM BICARBONATE TAB 650 MG TAB PO SCH ×2 (09:15→20:54)
[2018-06-05] MEDS: POTASSIUM CHLORIDE ER 10 MEQ TAB.ER.PRT PO SCH (09:16)
[2018-06-05] MEDS: POTASSIUM CHLORIDE ER 20 MEQ TAB.ER PO SCH (09:16)
[2018-06-05] MEDS: [UNRECOGNIZED DRUG - OTHER] PO SCH ×2 (09:23→20:53)
[2018-06-05] MEDS: Wheat Dextrin [Benefiber] PO SCH ×2 (09:23→20:53)
[2018-06-05] MEDS: RIVAROXABAN 10 MG TAB PO SCH (09:23)
[2018-06-05] MEDS: ISOSORBIDE MONONITRATE ER 60 MG TAB.ER.24H PO SCH (09:24)
[2018-06-05 11:31] LABS: Glucose,Whole Blood 124 mg/dL (75-99)
[2018-06-05] MEDS: METOPROLOL TARTRATE 25 MG TAB PO SCH (12:38)
[2018-06-05] MEDS: FUROSEMIDE 10 MG/ML 4 ML VIAL IV SCH (12:40)
--- NOTE | 2018-06-05 13:20 | P.PN ---
Subjective Progress Note Date: 06/05/18 Trina Carrillo is an 83-year-old female patient of Dr. Nathan who presented to [facility] emergency room with a chief complaint of nausea and worsening shortness of breath. Patient has a known history of congestive heart failure she had an echocardiogram in November 2017 which revealed an ejection fraction of 40-45% she was admitted recently to [facility] with acute congestive heart failure exacerbation and was discharged home on 02/2018 patient has been doing well since then. However in the last few days she started having episodes of nausea and worsening shortness of breath and weight gain with lower extremity edema she decided to come to emergency room. In the ER patient was evaluated her clinical picture, BNP level, and chest x- ray were all compatible with acute congestive heart failure exacerbation, she was started on IV Lasix, oral Demadex was held patient was admitted to telemetry floor, cardiology consultation was requested. Patient has a known history of atrial fibrillation heart rate on presentation was 99 she is maintained on Xarelto for anticoagulation. 06/04/2018 patient is reporting improvement in her shortness of breath since being placed on the IV Lasix. She is tolerating a diet no longer having any nausea or dry heaves. Initially an abdominal ultrasound was ordered this morning it was canceled. We'll look into further why ultrasound was canceled. At this time patient reports regular bowel movements. Denies any chest pain. Denies any difficulty or burning with urination. White count has normalized. Creatinine down from 2.46-2.34. Weight has gone up from 76.9 kg to 77.4 06/05/2018 patient reports improvement in her shortness of breath. She is stomach some lower extremity edema. Nausea has also shown improvement. No vomiting. Reports having a bowel movement. Abdominal ultrasound shows cholelithiasis and correlate for cholecystitis. Surgical consult has been placed. Total bili of has gone up from 1.6-1.8. Creatinine 2.34-2.43. Weight has decreased from 77.4 kg to 76.43 Objective - Vital Signs Vital signs: Vital Signs Temp 97.1 F L 06/05/18 08:00 Pulse 90 06/05/18 08:00 Resp 16 06/05/18 08:00 BP 105/64 06/05/18 08:00 Pulse Ox 96 06/05/18 08:00 Intake & Output 06/04/18 06/05/18 06/05/18 18:59 06:59 18:59 Intake Total 960 240 Output Total 1 Balance 960 -1 240 Weight 77.4 kg 76.43 kg Intake: Oral 960 240 Output: Stool 1 Other: Voiding Method Toilet Toilet Toilet # Voids 2 1 2 # Bowel Movements 1 - Exam Head normocephalic Neck supple Lungs clear to auscultation bilaterally no wheezing or crackles Heart regular rate and rhythm S1-S2, no rub or gallop Abdomen is soft nontender nondistended positive bowel sounds no hepatosplenomegaly Extremities +1 edema bilaterally right leg more swollen than left. No calf tenderness Neuro alert and orientated to 3 - Labs CBC & Chem 7: 06/05/18 06:10 06/05/18 06:10 Labs: Abnormal Lab Results - Last 24 Hours (Table) 06/04/18 06/04/18 06/05/18 Range/Units 16:18 20:50 06:10 RBC 3.39 L (3.80-5.40) m/uL MCV 117.1 H (80.0-100.0) fL MCH 35.3 H (25.0-35.0) pg MCHC 30.1 L (31.0-37.0) g/dL RDW 18.2 H (11.5-15.5) % Chloride (98-107) mmol/L BUN (7-17) mg/dL Creatinine (0.52-1.04) mg/dL POC Glucose (mg/dL) 121 H 171 H (75-99) mg/dL Total Bilirubin (0.2-1.3) mg/dL Total Protein (6.3-8.2) g/dL Albumin (3.5-5.0) g/dL 06/05/18 06/05/18 Range/Units 06:10 11:29 RBC (3.80-5.40) m/uL MCV (80.0-100.0) fL MCH (25.0-35.0) pg MCHC (31.0-37.0) g/dL RDW (11.5-15.5) % Chloride 108 H (98-107) mmol/L BUN 52 H (7-17) mg/dL Creatinine 2.43 H (0.52-1.04) mg/dL POC Glucose (mg/dL) 124 H (75-99) mg/dL Total Bilirubin 1.8 H (0.2-1.3) mg/dL Total Protein 6.2 L (6.3-8.2) g/dL Albumin 3.2 L (3.5-5.0) g/dL Assessment and Plan Assessment: #1 acute on chronic systolic congestive heart failure exacerbation. Last echo from November 2017 shows an EF of 40-45%. Continue with IV Lasix. Continue monitor I's and O's and daily weights. Cardiology following. Add NING hose for lower extremity edema. Keep legs elevated. #2 chronic atrial fibrillation. heart rate is well-controlled, maintained on Xarelto for anticoagulation #3 nausea, cause is unclear family is relating that to taking potassium. Abdominal ultrasound showing cholelithiasis and correlate for cholecystitis. Dr. Vuong will be consulted #4 history of chronic kidney disease stage IV #5 underlying history of hypertension #6 underlying history of diabetes mellitus type 2 continue home medication and add insulin sliding scale #7 underlying history of gout #8 Underlying history of chronic back pain #9 Chronic history of gallstones patient evaluated by surgery last admission no surgical intervention recommended at that time #10. Moderate protein calorie malnutrition: Add Glucerna shakes GI prophylaxis Protonix and DVT prophylaxis Xarelto I performed an examination of the patient and discussed their management with the physician Sports Equipment Repairer. I have reviewed the Physician Sports Equipment Repairer's notes and agree with the documented findings and plan of care
--- NOTE | 2018-06-05 14:38 | P.GSCN ---
History of Present Illness Consult date: 06/05/18 Reason for Consult: Cholelithiasis History of present illness: Patient will known to our service. Patient admitted for nausea and shortness of breath. She was having dry heaves. No abdominal pain. She noticed an increased weight gain while at home. For that reason she was admitted. She is being told she is being treated for congestive heart failure. Her bilirubin is slightly elevated at this time. Apparently at one point she was tender in the right upper quadrant. Ultrasound was repeated. Mild gallbladder wall thickening with stones as seen. Denies pain. Her dry heaves have resolved. She is tolerating a diet. Appetite is diminished. She is afebrile. The remainder of her liver enzymes are normal. White blood cell count was 11 on arrival. It is now normalized. Review of Systems The patient denies any acute changes in vision or hearing, no dysphagia or odynophagia, no chest pain or shortness of breath, no dysuria or hematuria, no headache, no runny nose, no rectal bleeding or melena, no unexplained weight loss Past Medical History Past Medical History: Atrial Fibrillation, Coronary Artery Disease (CAD), Cancer , Heart Failure, Diabetes Mellitus, Deep Vein Thrombosis (DVT), Eye Disorder, GERD/Reflux, Hypertension, Renal Disease Additional Past Medical History / Comment(s): Macular Degeneration and gluacoma , gallstones, stage 3 kidney failure, hx Uterine & groin CA; WEARS BILAT THIGH HIGH HOSE, uses cane or walker, patient states she has "2 blood clots in right groin since 2003" family states now clot is "through the whole leg" CHF, History of Any Multi-Drug Resistant Organisms: ESBL, VRE Year Discovered:: 02/15/18 ESBL E.Coli; 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 left hip replacement, rt breast biopsy, darcy filter rt leg, biopsy of right nostril no results yet Past Anesthesia/Blood Transfusion Reactions: No Reported Reaction Past Psychological History: No Psychological Hx Reported Smoking Status: Former smoker Past Alcohol Use History: None Reported Additional Past Alcohol Use History / Comment(s): smoked 1 pkg from 1961 to 1971 Past Drug Use History: None Reported - Past Family History Mother Family Medical History: No Reported History Medications and Allergies Home Medications Medication Instructions Recorded Confirmed Type Allopurinol [Zyloprim] 200 mg PO DAILY@0800 01/22/14 06/02/18 History Linagliptin [Tradjenta] 5 mg PO DAILY@1500 01/22/14 06/02/18 History Omeprazole [PriLOSEC] 20 mg PO DAILY@0700 01/22/14 06/02/18 History Docusate Sodium [Stool Softener] 100 mg PO BID@09,199902/22/14 06/02/18 History Garlic 1 tab PO BID@09,199902/22/14 06/02/18 History Calcitriol 0.25 mcg PO SUTUTHSA@0800 08/22/14 06/02/18 History Magnesium Oxide [Mag-Ox] 400 mg PO DAILY@0800 01/13/16 06/02/18 History traMADol HCL [Ultram] 50 mg PO TID@0800,1500,2300 01/13/16 06/02/18 History Brinzolamide/Brimonidine Tart 1 drop BOTH EYES BID@0700,199905/11/17 06/02/18 History [Simbrinza 1%-0.2% Eye Drops] Vit C/E/Zn/Coppr/Lutein/Zeaxan 1 cap PO BID@0800,199912/03/17 06/02/18 History [Preservision Areds 2 Softgel] Ferrous Sulfate [Feosol] 325 mg PO DAILY@0800 01/11/18 06/02/18 History Ammonium Lactate Cream [Lac-Hydrin 1 applic TOPICAL BID@07,199902/10/1806/02 History 12% Cream] Cholecalciferol (Vitamin D3) 2,000 unit PO DAILY@0800 02/10/18 06/02/18 History [Vitamin D3] Isosorbide Mononitrate ER [Imdur] 60 mg PO DAILY@0800 02/10/18 06/02/18 History Wheat Dextrin [Benefiber] 1 packet PO BID@0800,199902/10/18 06/02/18 History Midodrine [ProAmatine] 5 mg PO TID@0700,1500,2300 04/10/18 06/02/18 History Rivaroxaban [Xarelto] 10 mg PO DAILY@0800 04/10/18 06/02/18 History Metoprolol Tartrate [Lopressor] 25 mg PO DIRECTED #90 tab 04/13/18 06/02/18 Rx Potassium Chloride ER [K-Dur 20] 20 meq PO DAILY #30 tab 04/13/18 06/02/18 Rx Sodium Bicarbonate Tab 650 mg PO BID #60 tab 04/13/18 06/02/18 Rx Potassium Chloride ER [K-Dur 10] 10 meq PO DAILY 06/02/18 06/02/18 History Torsemide [Demadex] 10 mg PO BID@0900,1500 06/02/18 06/02/18 History Allergies Allergy/AdvReac Type Severity Reaction Status Date / Time atorvastatin calcium Allergy Unknown Verified 06/02/18 13:03 [From Lipitor] codeine Allergy Unknown Verified 06/02/18 13:03 [From Tylenol-Codeine #3] hydrocodone Allergy Vomiting Verified 06/02/18 13:03 Surgical - Exam Vital Signs Temp Pulse Resp BP Pulse Ox 97 F L 109 H 16 103/76 99 06/02/18 10:16 06/02/18 10:16 06/02/18 10:16 06/02/18 10:16 06/02/18 10:16 Physical exam: General: Well-developed, well-nourished HEENT: Normocephalic, sclerae nonicteric Abdomen: Nontender, nondistended Extremities: Bilateral lower cavity edema right greater than left Neuro: Alert and oriented Results - Labs 06/05/18 06:10 06/05/18 06:10 Abnormal Lab Results - Last 24 Hours (Table) 06/04/18 06/04/18 06/05/18 Range/Units 16:18 20:50 06:10 RBC 3.39 L (3.80-5.40) m/uL MCV 117.1 H (80.0-100.0) fL MCH 35.3 H (25.0-35.0) pg MCHC 30.1 L (31.0-37.0) g/dL RDW 18.2 H (11.5-15.5) % Chloride (98-107) mmol/L BUN (7-17) mg/dL Creatinine (0.52-1.04) mg/dL POC Glucose (mg/dL) 121 H 171 H (75-99) mg/dL Total Bilirubin (0.2-1.3) mg/dL Total Protein (6.3-8.2) g/dL Albumin (3.5-5.0) g/dL 06/05/18 06/05/18 Range/Units 06:10 11:29 RBC (3.80-5.40) m/uL MCV (80.0-100.0) fL MCH (25.0-35.0) pg MCHC (31.0-37.0) g/dL RDW (11.5-15.5) % Chloride 108 H (98-107) mmol/L BUN 52 H (7-17) mg/dL Creatinine 2.43 H (0.52-1.04) mg/dL POC Glucose (mg/dL) 124 H (75-99) mg/dL Total Bilirubin 1.8 H (0.2-1.3) mg/dL Total Protein 6.2 L (6.3-8.2) g/dL Albumin 3.2 L (3.5-5.0) g/dL Diabetes panel 06/05/18 Range/Units 06:10 Sodium 142 (137-145) mmol/L Potassium 3.9 (3.5-5.1) mmol/L Chloride 108 H (98-107) mmol/L Carbon Dioxide 25 (22-30) mmol/L BUN 52 H (7-17) mg/dL Creatinine 2.43 H (0.52-1.04) mg/dL Glucose 89 (74-99) mg/dL Calcium 9.2 (8.4-10.2) mg/dL AST 26 (14-36) U/L ALT 24 (9-52) U/L Alkaline Phosphatase 109 (38-126) U/L Total Protein 6.2 L (6.3-8.2) g/dL Albumin 3.2 L (3.5-5.0) g/dL Calcium panel 06/05/18 Range/Units 06:10 Calcium 9.2 (8.4-10.2) mg/dL Albumin 3.2 L (3.5-5.0) g/dL Pituitary panel 06/05/18 Range/Units 06:10 Sodium 142 (137-145) mmol/L Potassium 3.9 (3.5-5.1) mmol/L Chloride 108 H (98-107) mmol/L Carbon Dioxide 25 (22-30) mmol/L BUN 52 H (7-17) mg/dL Creatinine 2.43 H (0.52-1.04) mg/dL Glucose 89 (74-99) mg/dL Calcium 9.2 (8.4-10.2) mg/dL Adrenal panel 06/05/18 Range/Units 06:10 Sodium 142 (137-145) mmol/L Potassium 3.9 (3.5-5.1) mmol/L Chloride 108 H (98-107) mmol/L Carbon Dioxide 25 (22-30) mmol/L BUN 52 H (7-17) mg/dL Creatinine 2.43 H (0.52-1.04) mg/dL Glucose 89 (74-99) mg/dL Calcium 9.2 (8.4-10.2) mg/dL Total Bilirubin 1.8 H (0.2-1.3) mg/dL AST 26 (14-36) U/L ALT 24 (9-52) U/L Alkaline Phosphatase 109 (38-126) U/L Total Protein 6.2 L (6.3-8.2) g/dL Albumin 3.2 L (3.5-5.0) g/dL Assessment and Plan (1) Cholelithiasis Narrative/Plan: Patient with history of known cholelithiasis. Recent physical exam findings and ultrasound findings along with elevated bilirubin is likely related to liver congestion. Underlying cholecystitis is difficult to exclude with certainty. At this time we'll continue close observation. Options of cholecystectomy discussed with the patient and her family. They would like to avoid if possible which given her underlying cardiac issues is reasonable. Continue diet for now. We'll follow closely. Current Visit: No Status: Acute Code(s): K80.20 - CALCULUS OF GALLBLADDER W/ O CHOLECYSTITIS W/O OBSTRUCTION SNOMED Code(s): 304918756
--- NOTE | 2018-06-05 16:32 | P.PN ---
Subjective Progress Note Date: 06/05/18 This is a pleasant 83-year-old female who follows regularly with Dr. May in the office. She has known history of chronic kidney disease, chronic persistent atrial fibrillation, congestive heart failure, presented to the hospital with symptoms of progressively worsening shortness of breath with associated peripheral edema. Her ejection fraction was documented to be 45% in the past with moderate to severe mitral regurgitation. Patient was not felt to be a candidate for surgical intervention and was treated medically. She's been anticoagulated all along and has a history of DVT and [place] filter placement. Patient was seen and examined this morning, she sitting up in the chair at bedside. Breathing overall is significantly improved, she still continues to have at least one plus peripheral edema. He is diuresing however her weight reflected that it was up from yesterday. I pressure this morning 120 /70 with a heart rate in the 80s, 98% on room air. Sodium 142, potassium 4.1, BUN 54, creatinine 2.3. White blood cell count 9.2, hemoglobin 11.9, platelet count 180. 06/05/2018 Patient was seen and examined today, overall doing significantly better. Weight is down 1 kg today, creatinine up to 2.4. He did have an ultrasound of the abdomen performed today which revealed cholelithiasis, Dr. ferrer did see the patient in consultation and is just continue observation at this time. Objective - Vital Signs Vital signs: Vital Signs Temp 96.8 F L 06/05/18 12:00 Pulse 87 06/05/18 12:00 Resp 16 06/05/18 12:00 BP 107/69 06/05/18 12:00 Pulse Ox 100 06/05/18 12:00 Intake & Output 06/04/18 06/05/18 06/05/18 18:59 06:59 18:59 Intake Total 960 358 Output Total 1 1 Balance 960 -1 357 Weight 77.4 kg 76.43 kg Intake: Oral 960 358 Output: Stool 1 1 Other: Voiding Method Toilet Toilet Toilet # Voids 2 1 1 # Bowel Movements 1 - Exam PHYSICAL EXAMINATION: GENERAL: 83-year-old female in no acute distress at the time of my examination HEENT: Head is atraumatic, normocephalic. Pupils equal, round. Sclera anicteric. Conjunctiva are clear. Mucous membranes of the mouth are moist. Neck is supple. There is no elevated jugular venous pressure. Carotid bruit is heard. HEART EXAMINATION: S1-S2 irregularly irregular a holosystolic murmur is heard. CHEST EXAMINATION: Lungs are clear to auscultation and precussion. No chest wall tenderness is noted on palpation or with deep breathing. ABDOMEN: Soft, nontender. Bowel sounds are heard. No organomegaly noted. EXTREMITIES: 2+ peripheral pulses with 2+ evidence of peripheral edema and no calf tenderness noted. NEUROLOGIC patient is awake, alert and oriented X3. . - Labs CBC & Chem 7: 06/05/18 06:10 06/05/18 06:10 Labs: Abnormal Lab Results - Last 24 Hours (Table) 06/04/18 06/05/18 06/05/18 Range/Units 20:50 06:10 06:10 RBC 3.39 L (3.80-5.40) m/uL MCV 117.1 H (80.0-100.0) fL MCH 35.3 H (25.0-35.0) pg MCHC 30.1 L (31.0-37.0) g/dL RDW 18.2 H (11.5-15.5) % Chloride 108 H (98-107) mmol/L BUN 52 H (7-17) mg/dL Creatinine 2.43 H (0.52-1.04) mg/dL POC Glucose (mg/dL) 171 H (75-99) mg/dL Total Bilirubin 1.8 H (0.2-1.3) mg/dL Total Protein 6.2 L (6.3-8.2) g/dL Albumin 3.2 L (3.5-5.0) g/dL 06/05/18 Range/Units 11:29 RBC (3.80-5.40) m/uL MCV (80.0-100.0) fL MCH (25.0-35.0) pg MCHC (31.0-37.0) g/dL RDW (11.5-15.5) % Chloride (98-107) mmol/L BUN (7-17) mg/dL Creatinine (0.52-1.04) mg/dL POC Glucose (mg/dL) 124 H (75-99) mg/dL Total Bilirubin (0.2-1.3) mg/dL Total Protein (6.3-8.2) g/dL Albumin (3.5-5.0) g/dL Assessment and Plan Plan: Assessment and plan #1 systolic congestive heart failure acute on chronic #2 acute on chronic kidney disease #3 chronic persistent atrial fibrillation #4 history of DVT prior [place] filter placement #5 severe MR Plan From cardiology's perspective, we will discontinue IV Lasix and start oral diuretics today. Check lytes BUN and creatinine in the morning. DNP note has been reviewed, I agree with a documented findings and plan of care. Patient was seen and examined.
[2018-06-05 16:36] LABS: Glucose,Whole Blood 135 mg/dL (75-99)
[2018-06-05] MEDS: LINAGLIPTIN 5 MG TABLET PO SCH (16:52)
--- NOTE | 2018-06-05 17:55 | P.PN ---
Subjective Progress Note Date: 06/05/18 Principal diagnosis: Acute exacerbation of CHF, acute on chronic systolic heart failure, atrial fibrillation with rapid ventricular response, coronary artery disease, history of prior lower extremity deep venous thrombosis, legally blind 06/05/2018, patient seen and evaluated examined during the rounds clinically patient remains stable however is still left shortness breath activity and exertion, due to abdominal discomfort and pain patient underwent AN ultrasound of the abdomen which revealed presence of [place] cases with gallbladder thickening CBD is within normal limit oral appearance of possible chronic cholecystitis along with cholelithiasis, abs reviewed medications reviewed 06/04/2018, patient seen eval reexamined during the rounds clinically patient is doing slightly better in terms of breathing cuff congestion shortness of breath remains absent, does get short of breath on activity and exertion she has been diuresing very well labs reviewed medications reviewed, BUN/creatinine today is 54 and 2.34 83-year-old female with the history of chronic atrial fibrillation and chronic systolic and diastolic heart failure with baseline ejection fraction of 40-45% patient does have a history of the pleural effusion requiring thoracentesis in the past however lately her fluid status has been fairly stable does follow in outpatient setting for her chronic intermittent asthma as well as pleural effusion, patient has not been feeling well with increasing shortness of breath started about 3-4 days ago, prior exacerbation occurred back in April she has been doing otherwise fairly well has intermittent cough but stable severity denies any sputum production she also noted increased swelling of the lower extremity patient presented into the emergency department she was seen eval reexamined has been admitted to hospital she has received IV furosemide with good urine output she has lost close to about 7-10 pounds in last 24 hours with diuresis, she is legally blind, she is on anticoagulation and tolerating very well, on specific questioning he denies any seizure-like to a loss of consciousness), denies any night sweats fever or chills denies any chest pain, denies any other bowel or bladder dysfunction, patient does have a chronic lower extremity swelling which has progressed in the last few days but settling down now, Objective - Vital Signs Vital signs: Vital Signs Temp 96.8 F L 06/05/18 12:00 Pulse 100 06/05/18 16:00 Resp 16 06/05/18 16:00 BP 114/73 06/05/18 16:00 Pulse Ox 98 06/05/18 16:00 Intake & Output 06/04/18 06/05/18 06/05/18 18:59 06:59 18:59 Intake Total 960 358 Output Total 1 2 Balance 960 -1 356 Weight 77.4 kg 76.43 kg Intake: Oral 960 358 Output: Stool 1 2 Other: Voiding Method Toilet Toilet Toilet # Voids 2 1 1 # Bowel Movements 1 - Exam Constitutional General appearance: cooperative, disheveled, mild distress - EENT Eyes: EOMI, PERRLA, normal appearance ENT: hard of hearing, normal oropharynx Ears: bilateral: normal - Neck Neck: normal ROM Carotids: bilateral: upstroke normal, bruit absent Thyroid: bilateral: normal size - Respiratory Respiratory: bilateral: diminished, rales, negative: dullness, rhonchi, wheezing , prolonged expiration, prolonged inspiration - Cardiovascular Rhythm: irregularly irregular Heart sounds: normal: S1, S2 - Gastrointestinal General gastrointestinal: decreased bowel sounds, distended, normal bowel sounds , soft mild tenderness intermittent predominantly on the right side - Integumentary Integumentary: normal turgor - Musculoskeletal Musculoskeletal: gait normal, generalized weakness, strength equal bilaterally - Psychiatric Psychiatric: A&O x's 3, appropriate affect, intact judgment & insight - Labs CBC & Chem 7: 06/05/18 06:10 06/05/18 06:10 Labs: Abnormal Lab Results - Last 24 Hours (Table) 06/04/18 06/05/18 06/05/18 Range/Units 20:50 06:10 06:10 RBC 3.39 L (3.80-5.40) m/uL MCV 117.1 H (80.0-100.0) fL MCH 35.3 H (25.0-35.0) pg MCHC 30.1 L (31.0-37.0) g/dL RDW 18.2 H (11.5-15.5) % Chloride 108 H (98-107) mmol/L BUN 52 H (7-17) mg/dL Creatinine 2.43 H (0.52-1.04) mg/dL POC Glucose (mg/dL) 171 H (75-99) mg/dL Total Bilirubin 1.8 H (0.2-1.3) mg/dL Total Protein 6.2 L (6.3-8.2) g/dL Albumin 3.2 L (3.5-5.0) g/dL 06/05/18 06/05/18 Range/Units 11:29 16:31 RBC (3.80-5.40) m/uL MCV (80.0-100.0) fL MCH (25.0-35.0) pg MCHC (31.0-37.0) g/dL RDW (11.5-15.5) % Chloride (98-107) mmol/L BUN (7-17) mg/dL Creatinine (0.52-1.04) mg/dL POC Glucose (mg/dL) 124 H 135 H (75-99) mg/dL Total Bilirubin (0.2-1.3) mg/dL Total Protein (6.3-8.2) g/dL Albumin (3.5-5.0) g/dL Assessment and Plan Assessment: Leta Diana PSAs along with acute on chronic cholecystitis Acute exacerbation of acute on chronic systolic heart failure as well as some component of diastolic heart failure Small bilateral pleural effusion Atrial fibrillation with rapid ventricular response now better under control Chronic asthma mild intermittent, patient is being monitored off of therapy Chronic renal failure stage IV Hypertension hypertensive cardiovascular disease Type 2 diabetes mellitus with complication Chronic gout Legally blind Plan: Observe patient off of bronchodilators Agree with surgical evaluation of acute on chronic cholecystitis with cholelithiasis Continue gentle diuresis monitor renal functions closely Pleural effusion is very small no plans for thoracentesis continue maximal medical therapy with diuresis with close monitoring and observation of renal function Continue anticoagulation Fall precautions Care plan discussed with the patient and daughter present at bedside at length, will follow closely Time with Patient: Greater than 30
[2018-06-05 20:46] LABS: Glucose,Whole Blood 156 mg/dL (75-99)
[2018-06-06 05:52] LABS: Glucose,Whole Blood 135 mg/dL (75-99)
[2018-06-06] MEDS: MIDODRINE 5 MG TAB PO SCH ×3 (06:33→22:30)
[2018-06-06] MEDS: PANTOPRAZOLE 40 MG TABLET PO SCH (06:33)
[2018-06-06] MEDS: Brinzolamide/Brimonidine Tart [Simbrinza 1%-0.2% Eye Drops] BOTH EYES SCH ×2 (06:33→20:22)
[2018-06-06] MEDS: INSULIN ASPART 100 UNIT/ML 1 ML 10 ML VIAL SQ SCH ×4 (06:34→22:05)
[2018-06-06 07:19] LABS: Anisocytosis Slight; Basophils % (A) 0 %; Eosinophils # (A) 0.2 k/uL (0-0.7); Eosinophils % (A) 2 %; HCT 38.1 % (34.0-46.0); HGB 11.7 gm/dL (11.4-16.0); Hypochromasia Marked; Lymphocytes # (A) 1.5 k/uL (1.0-4.8); Lymphocytes % (A) 20 %; MCH 35.7 pg (25.0-35.0); MCHC 30.6 g/dL (31.0-37.0); MCV 116.7 fL (80.0-100.0); Macrocytosis Marked; Mean Platelet Volume 8.4; Monocytes # (A) 0.4 k/uL (0-1.0); Monocytes % (A) 6 %; Neutrophils # (A) 5.3 k/uL (1.3-7.7); Neutrophils % (A) 70 %; Platelet Count 184 k/uL (150-450); RBC 3.26 m/uL (3.80-5.40); RDW 18.2 % (11.5-15.5); WBC 7.6 k/uL (3.8-10.6)
[2018-06-06 07:34] LABS: Albumin 3.2 g/dL (3.5-5.0); Calcium 9.4 mg/dL (8.4-10.2); Potassium 4.4 mmol/L (3.5-5.1); Total Bilirubin 1.4 mg/dL (0.2-1.3); Total Protein 6.2 g/dL (6.3-8.2)
[2018-06-06] MEDS: POTASSIUM CHLORIDE ER 20 MEQ TAB.ER PO SCH (08:22)
[2018-06-06] MEDS: FERROUS SULFATE 325 MG TAB PO SCH (08:22)
[2018-06-06] MEDS: FUROSEMIDE 20 MG TAB PO SCH ×2 (08:22→18:07)
[2018-06-06] MEDS: POTASSIUM CHLORIDE ER 10 MEQ TAB.ER.PRT PO SCH (08:22)
[2018-06-06] MEDS: METOPROLOL TARTRATE 50 MG TAB PO SCH ×2 (08:22→20:22)
[2018-06-06] MEDS: DOCUSATE 100 MG CAP PO SCH ×2 (08:22→20:22)
[2018-06-06] MEDS: ISOSORBIDE MONONITRATE ER 60 MG TAB.ER.24H PO SCH (08:23)
[2018-06-06] MEDS: MAGNESIUM OXIDE 400 MG TAB PO SCH (08:23)
[2018-06-06] MEDS: CHOLECALCIFEROL 1,000 UNIT TAB PO SCH (08:23)
[2018-06-06] MEDS: ALLOPURINOL 100 MG TAB PO SCH (08:23)
[2018-06-06] MEDS: SODIUM BICARBONATE TAB 650 MG TAB PO SCH ×2 (08:24→20:22)
[2018-06-06] MEDS: Wheat Dextrin [Benefiber] PO SCH ×2 (08:24→20:22)
[2018-06-06] MEDS: RIVAROXABAN 10 MG TAB PO SCH (08:24)
[2018-06-06] MEDS: [UNRECOGNIZED DRUG - OTHER] PO SCH ×2 (08:24→20:23)
[2018-06-06] MEDS: traMADol 50 MG TAB PO SCH ×3 (08:24→22:30)
[2018-06-06 08:32] LABS: Poikilocytosis (M) Present
--- NOTE | 2018-06-06 11:05 | P.PN ---
Subjective Progress Note Date: 06/06/18 Trina Carrillo is an 83-year-old female patient of Dr. Nathan who presented to [facility] emergency room with a chief complaint of nausea and worsening shortness of breath. Patient has a known history of congestive heart failure she had an echocardiogram in November 2017 which revealed an ejection fraction of 40-45% she was admitted recently to [facility] with acute congestive heart failure exacerbation and was discharged home on 02/2018 patient has been doing well since then. However in the last few days she started having episodes of nausea and worsening shortness of breath and weight gain with lower extremity edema she decided to come to emergency room. In the ER patient was evaluated her clinical picture, BNP level, and chest x- ray were all compatible with acute congestive heart failure exacerbation, she was started on IV Lasix, oral Demadex was held patient was admitted to telemetry floor, cardiology consultation was requested. Patient has a known history of atrial fibrillation heart rate on presentation was 99 she is maintained on Xarelto for anticoagulation. 06/04/2018 patient is reporting improvement in her shortness of breath since being placed on the IV Lasix. She is tolerating a diet no longer having any nausea or dry heaves. Initially an abdominal ultrasound was ordered this morning it was canceled. We'll look into further why ultrasound was canceled. At this time patient reports regular bowel movements. Denies any chest pain. Denies any difficulty or burning with urination. White count has normalized. Creatinine down from 2.46-2.34. Weight has gone up from 76.9 kg to 77.4 06/05/2018 patient reports improvement in her shortness of breath. She is stomach some lower extremity edema. Nausea has also shown improvement. No vomiting. Reports having a bowel movement. Abdominal ultrasound shows cholelithiasis and correlate for cholecystitis. Surgical consult has been placed. Total bili of has gone up from 1.6-1.8. Creatinine 2.34-2.43. Weight has decreased from 77.4 kg to 76.43 On 06/06/2018 patient is currently alert and oriented 3. Patient is resting comfortably in chair. Lasix has been switched from IV to by mouth per cardiology services. Patient reports nausea vomiting has significantly improved. Patient denies chest pain or shortness breath patient denies any urinary burning or frequency. Total Bilirubin decreasing to 1.4. Objective - Vital Signs Vital signs: Vital Signs Temp 97.8 F 06/06/18 08:00 Pulse 93 06/06/18 08:00 Resp 16 06/06/18 08:00 BP 95/61 06/06/18 08:00 Pulse Ox 93 L 06/06/18 08:00 Intake & Output 06/05/18 06/06/18 06/06/18 18:59 06:59 18:59 Intake Total 718 240 Output Total 2 1 Balance 716 239 Weight 77.2 kg Intake: Oral 718 240 Output: Stool 2 1 Other: Voiding Method Toilet Toilet Toilet # Voids 1 2 3 # Bowel Movements 1 - Exam Head normocephalic Neck supple Lungs clear to auscultation bilaterally no wheezing or crackles Heart regular rate and rhythm S1-S2, no rub or gallop Abdomen is soft nontender nondistended positive bowel sounds no hepatosplenomegaly Extremities +1 edema bilaterally right leg more swollen than left. No calf tenderness Neuro alert and orientated to 3 - Labs CBC & Chem 7: 06/06/18 06:37 06/06/18 06:37 Labs: Abnormal Lab Results - Last 24 Hours (Table) 06/05/18 06/05/18 06/05/18 Range/Units 11:29 16:31 20:45 RBC (3.80-5.40) m/uL MCV (80.0-100.0) fL MCH (25.0-35.0) pg MCHC (31.0-37.0) g/dL RDW (11.5-15.5) % BUN (7-17) mg/dL Creatinine (0.52-1.04) mg/dL Glucose (74-99) mg/dL POC Glucose (mg/dL) 124 H 135 H 156 H (75-99) mg/dL Total Bilirubin (0.2-1.3) mg/dL Total Protein (6.3-8.2) g/dL Albumin (3.5-5.0) g/dL 06/06/18 06/06/18 06/06/18 Range/Units 05:49 06:37 06:37 RBC 3.26 L (3.80-5.40) m/uL MCV 116.7 H (80.0-100.0) fL MCH 35.7 H (25.0-35.0) pg MCHC 30.6 L (31.0-37.0) g/dL RDW 18.2 H (11.5-15.5) % BUN 53 H (7-17) mg/dL Creatinine 2.58 H (0.52-1.04) mg/dL Glucose 119 H (74-99) mg/dL POC Glucose (mg/dL) 135 H (75-99) mg/dL Total Bilirubin 1.4 H (0.2-1.3) mg/dL Total Protein 6.2 L (6.3-8.2) g/dL Albumin 3.2 L (3.5-5.0) g/dL Assessment and Plan Assessment: #1 acute on chronic systolic congestive heart failure exacerbation. Last echo from November 2017 shows an EF of 40-45%. Continue with IV Lasix. Continue monitor I's and O's and daily weights. Cardiology following. Add NING hose for lower extremity edema. Keep legs elevated. Lasix has been switched to by mouth per cardiology #2 chronic atrial fibrillation. heart rate is well-controlled, maintained on Xarelto for anticoagulation #3 nausea, cause is unclear family is relating that to taking potassium. Abdominal ultrasound showing cholelithiasis and correlate for cholecystitis. Per Dr. Vuong option for cholecystectomy discussed with the patient and her family. They would like to avoid possible surgical intervention at this time. #4 history of chronic kidney disease stage IV. Creatinine increasing to 2.58 #5 underlying history of hypertension #6 underlying history of diabetes mellitus type 2 continue home medication and add insulin sliding scale #7 underlying history of gout #8 Underlying history of chronic back pain #9 Chronic history of gallstones patient evaluated by surgery last admission no surgical intervention recommended at that time. #10. Moderate protein calorie malnutrition: Add Glucerna shakes DVT prophylaxis xarelato. GI prophylaxis protonix I performed an examination of the patient and discussed their management with the Nurse Practitioner. I have reviewed the Nurse Practitioner's notes and agree with the documented findings and plan of care
[2018-06-06 12:09] LABS: Glucose,Whole Blood 133 mg/dL (75-99)
[2018-06-06] MEDS: METOPROLOL TARTRATE 25 MG TAB PO SCH (13:08)
--- NOTE | 2018-06-06 13:28 | P.PN ---
Subjective Progress Note Date: 06/06/18 Principal diagnosis: Cholelithiasis Patient doing well today. Tolerating diet. No nausea or vomiting. Denies abdominal pain. Bilirubin today 1.4. Objective - Vital Signs Vital signs: Vital Signs Temp 97.8 F 06/06/18 08:00 Pulse 93 06/06/18 08:00 Resp 16 06/06/18 08:00 BP 95/61 06/06/18 08:00 Pulse Ox 93 L 06/06/18 08:00 Intake & Output 06/05/18 06/06/18 06/06/18 18:59 06:59 18:59 Intake Total 718 240 Output Total 2 1 Balance 716 239 Weight 77.2 kg Intake: Oral 718 240 Output: Stool 2 1 Other: Voiding Method Toilet Toilet Toilet # Voids 1 2 3 # Bowel Movements 1 - Exam Abdomen: Soft, nontender, nondistended - Labs CBC & Chem 7: 06/06/18 06:37 06/06/18 06:37 Labs: Abnormal Lab Results - Last 24 Hours (Table) 06/05/18 06/05/18 06/06/18 Range/Units 16:31 20:45 05:49 RBC (3.80-5.40) m/uL MCV (80.0-100.0) fL MCH (25.0-35.0) pg MCHC (31.0-37.0) g/dL RDW (11.5-15.5) % BUN (7-17) mg/dL Creatinine (0.52-1.04) mg/dL Glucose (74-99) mg/dL POC Glucose (mg/dL) 135 H 156 H 135 H (75-99) mg/dL Total Bilirubin (0.2-1.3) mg/dL Total Protein (6.3-8.2) g/dL Albumin (3.5-5.0) g/dL 06/06/18 06/06/18 06/06/18 Range/Units 06:37 06:37 11:54 RBC 3.26 L (3.80-5.40) m/uL MCV 116.7 H (80.0-100.0) fL MCH 35.7 H (25.0-35.0) pg MCHC 30.6 L (31.0-37.0) g/dL RDW 18.2 H (11.5-15.5) % BUN 53 H (7-17) mg/dL Creatinine 2.58 H (0.52-1.04) mg/dL Glucose 119 H (74-99) mg/dL POC Glucose (mg/dL) 133 H (75-99) mg/dL Total Bilirubin 1.4 H (0.2-1.3) mg/dL Total Protein 6.2 L (6.3-8.2) g/dL Albumin 3.2 L (3.5-5.0) g/dL Assessment and Plan (1) Cholelithiasis Narrative/Plan: Continue diet as tolerated. No surgical intervention planned as the elevated bilirubin, transient right upper quadrant tenderness, and ultrasound findings thought to reflect probable right heart failure. Patient asked to follow-up with me in the outpatient setting if for symptoms recur. Current Visit: No Status: Acute Code(s): K80.20 - CALCULUS OF GALLBLADDER W/ O CHOLECYSTITIS W/O OBSTRUCTION SNOMED Code(s): 548202873
--- NOTE | 2018-06-06 13:45 | P.PN ---
Subjective Progress Note Date: 06/06/18 Principal diagnosis: Acute exacerbation of CHF, acute on chronic systolic heart failure, atrial fibrillation with rapid ventricular response, coronary artery disease, history of prior lower extremity deep venous thrombosis, legally blind 06/06/2018, patient seen eval reexamined during the rounds is still short of breath on activity and exertion however severity has improved lower extremity edema especially on the right side slowly improving labs reviewed medications reviewed patient is being followed by general surgery as well awaiting their final input for possible cholecystitis and cholelithiasis 06/05/2018, patient seen and evaluated examined during the rounds clinically patient remains stable however is still left shortness breath activity and exertion, due to abdominal discomfort and pain patient underwent AN ultrasound of the abdomen which revealed presence of Sade cases with gallbladder thickening CBD is within normal limit oral appearance of possible chronic cholecystitis along with cholelithiasis, abs reviewed medications reviewed 06/04/2018, patient seen eval reexamined during the rounds clinically patient is doing slightly better in terms of breathing cuff congestion shortness of breath remains absent, does get short of breath on activity and exertion she has been diuresing very well labs reviewed medications reviewed, BUN/creatinine today is 54 and 2.34 83-year-old female with the history of chronic atrial fibrillation and chronic systolic and diastolic heart failure with baseline ejection fraction of 40-45% patient does have a history of the pleural effusion requiring thoracentesis in the past however lately her fluid status has been fairly stable does follow in outpatient setting for her chronic intermittent asthma as well as pleural effusion, patient has not been feeling well with increasing shortness of breath started about 3-4 days ago, prior exacerbation occurred back in April she has been doing otherwise fairly well has intermittent cough but stable severity denies any sputum production she also noted increased swelling of the lower extremity patient presented into the emergency department she was seen eval reexamined has been admitted to hospital she has received IV furosemide with good urine output she has lost close to about 7-10 pounds in last 24 hours with diuresis, she is legally blind, she is on anticoagulation and tolerating very well, on specific questioning he denies any seizure-like to a loss of consciousness), denies any night sweats fever or chills denies any chest pain, denies any other bowel or bladder dysfunction, patient does have a chronic lower extremity swelling which has progressed in the last few days but settling down now, Objective - Vital Signs Vital signs: Vital Signs Temp 97.8 F 06/06/18 08:00 Pulse 93 06/06/18 08:00 Resp 16 06/06/18 08:00 BP 95/61 06/06/18 08:00 Pulse Ox 93 L 06/06/18 08:00 Intake & Output 06/05/18 06/06/18 06/06/18 18:59 06:59 18:59 Intake Total 718 240 Output Total 2 1 Balance 716 239 Weight 77.2 kg Intake: Oral 718 240 Output: Stool 2 1 Other: Voiding Method Toilet Toilet Toilet # Voids 1 2 3 # Bowel Movements 1 - Exam Constitutional General appearance: cooperative, disheveled, mild distress - EENT Eyes: EOMI, PERRLA, normal appearance ENT: hard of hearing, normal oropharynx Ears: bilateral: normal - Neck Neck: normal ROM Carotids: bilateral: upstroke normal, bruit absent Thyroid: bilateral: normal size - Respiratory Respiratory: bilateral: diminished, rales, negative: dullness, rhonchi, wheezing , prolonged expiration, prolonged inspiration - Cardiovascular Rhythm: irregularly irregular Heart sounds: normal: S1, S2 - Gastrointestinal General gastrointestinal: decreased bowel sounds, distended, normal bowel sounds , soft mild tenderness intermittent predominantly on the right side - Integumentary Integumentary: normal turgor - Musculoskeletal Musculoskeletal: gait normal, generalized weakness, strength equal bilaterally - Psychiatric Psychiatric: A&O x's 3, appropriate affect, intact judgment & insight - Labs CBC & Chem 7: 06/06/18 06:37 06/06/18 06:37 Labs: Abnormal Lab Results - Last 24 Hours (Table) 06/05/18 06/05/18 06/06/18 Range/Units 16:31 20:45 05:49 RBC (3.80-5.40) m/uL MCV (80.0-100.0) fL MCH (25.0-35.0) pg MCHC (31.0-37.0) g/dL RDW (11.5-15.5) % BUN (7-17) mg/dL Creatinine (0.52-1.04) mg/dL Glucose (74-99) mg/dL POC Glucose (mg/dL) 135 H 156 H 135 H (75-99) mg/dL Total Bilirubin (0.2-1.3) mg/dL Total Protein (6.3-8.2) g/dL Albumin (3.5-5.0) g/dL 06/06/18 06/06/18 06/06/18 Range/Units 06:37 06:37 11:54 RBC 3.26 L (3.80-5.40) m/uL MCV 116.7 H (80.0-100.0) fL MCH 35.7 H (25.0-35.0) pg MCHC 30.6 L (31.0-37.0) g/dL RDW 18.2 H (11.5-15.5) % BUN 53 H (7-17) mg/dL Creatinine 2.58 H (0.52-1.04) mg/dL Glucose 119 H (74-99) mg/dL POC Glucose (mg/dL) 133 H (75-99) mg/dL Total Bilirubin 1.4 H (0.2-1.3) mg/dL Total Protein 6.2 L (6.3-8.2) g/dL Albumin 3.2 L (3.5-5.0) g/dL Assessment and Plan Assessment: Cholelithiasis along with acute on chronic cholecystitis Acute exacerbation of acute on chronic systolic heart failure as well as some component of diastolic heart failure Small bilateral pleural effusion Atrial fibrillation with rapid ventricular response now better under control Chronic asthma mild intermittent, patient is being monitored off of therapy Chronic renal failure stage IV Hypertension hypertensive cardiovascular disease Type 2 diabetes mellitus with complication Chronic gout Legally blind Plan: Observe patient off of bronchodilators Agree with surgical evaluation of acute on chronic cholecystitis with cholelithiasis Continue gentle diuresis monitor renal functions closely Pleural effusion is very small no plans for thoracentesis continue maximal medical therapy with diuresis with close monitoring and observation of renal function Continue anticoagulation Fall precautions Care plan discussed with the patient and daughter present at bedside at length, will follow closely Time with Patient: Greater than 30
--- NOTE | 2018-06-06 14:36 | P.PN ---
Subjective Progress Note Date: 06/06/18 This is a pleasant 83-year-old female who follows regularly with Dr. May in the office. She has known history of chronic kidney disease, chronic persistent atrial fibrillation, congestive heart failure, presented to the hospital with symptoms of progressively worsening shortness of breath with associated peripheral edema. Her ejection fraction was documented to be 45% in the past with moderate to severe mitral regurgitation. Patient was not felt to be a candidate for surgical intervention and was treated medically. She's been anticoagulated all along and has a history of DVT and [place] filter placement. Patient was seen and examined this morning, she sitting up in the chair at bedside. Breathing overall is significantly improved, she still continues to have at least one plus peripheral edema. He is diuresing however her weight reflected that it was up from yesterday. I pressure this morning 120 /70 with a heart rate in the 80s, 98% on room air. Sodium 142, potassium 4.1, BUN 54, creatinine 2.3. White blood cell count 9.2, hemoglobin 11.9, platelet count 180. 06/05/2018 Patient was seen and examined today, overall doing significantly better. Weight is down 1 kg today, creatinine up to 2.4. He did have an ultrasound of the abdomen performed today which revealed cholelithiasis, Dr. ferrer did see the patient in consultation and is just continue observation at this time. 06/06/2018 Patient was seen and examined this morning, sitting up in the chair at bedside. Overall feeling significantly better. Creatinine today is 2.5, BUN 53. Currently on Lasix 20 mg by mouth twice a day. From cardiology's perspective, she may be able to be discharged once cleared by primary. We will make her a follow-up appointment in the office post discharge. Objective - Vital Signs Vital signs: Vital Signs Temp 97.8 F 06/06/18 08:00 Pulse 93 06/06/18 08:00 Resp 16 06/06/18 08:00 BP 95/61 06/06/18 08:00 Pulse Ox 93 L 06/06/18 08:00 Intake & Output 06/05/18 06/06/18 06/06/18 18:59 06:59 18:59 Intake Total 718 480 Output Total 2 1 Balance 716 479 Weight 77.2 kg Intake: Oral 718 480 Output: Stool 2 1 Other: Voiding Method Toilet Toilet Toilet # Voids 1 2 3 # Bowel Movements 1 - Labs CBC & Chem 7: 06/06/18 06:37 06/06/18 06:37 Labs: Abnormal Lab Results - Last 24 Hours (Table) 06/05/18 06/05/18 06/06/18 Range/Units 16:31 20:45 05:49 RBC (3.80-5.40) m/uL MCV (80.0-100.0) fL MCH (25.0-35.0) pg MCHC (31.0-37.0) g/dL RDW (11.5-15.5) % BUN (7-17) mg/dL Creatinine (0.52-1.04) mg/dL Glucose (74-99) mg/dL POC Glucose (mg/dL) 135 H 156 H 135 H (75-99) mg/dL Total Bilirubin (0.2-1.3) mg/dL Total Protein (6.3-8.2) g/dL Albumin (3.5-5.0) g/dL 06/06/18 06/06/18 06/06/18 Range/Units 06:37 06:37 11:54 RBC 3.26 L (3.80-5.40) m/uL MCV 116.7 H (80.0-100.0) fL MCH 35.7 H (25.0-35.0) pg MCHC 30.6 L (31.0-37.0) g/dL RDW 18.2 H (11.5-15.5) % BUN 53 H (7-17) mg/dL Creatinine 2.58 H (0.52-1.04) mg/dL Glucose 119 H (74-99) mg/dL POC Glucose (mg/dL) 133 H (75-99) mg/dL Total Bilirubin 1.4 H (0.2-1.3) mg/dL Total Protein 6.2 L (6.3-8.2) g/dL Albumin 3.2 L (3.5-5.0) g/dL
[2018-06-06 16:55] LABS: Glucose,Whole Blood 162 mg/dL (75-99)
[2018-06-06] MEDS: LINAGLIPTIN 5 MG TABLET PO SCH (18:07)
[2018-06-06 21:47] LABS: Glucose,Whole Blood 158 mg/dL (75-99)
[2018-06-07 06:31] LABS: Glucose,Whole Blood 101 mg/dL (75-99)
[2018-06-07] MEDS: INSULIN ASPART 100 UNIT/ML 1 ML 10 ML VIAL SQ SCH ×2 (06:33→11:56)
[2018-06-07] MEDS: Brinzolamide/Brimonidine Tart [Simbrinza 1%-0.2% Eye Drops] BOTH EYES SCH (06:34)
[2018-06-07] MEDS: PANTOPRAZOLE 40 MG TABLET PO SCH (06:34)
[2018-06-07] MEDS: MIDODRINE 5 MG TAB PO SCH ×2 (06:34→15:10)
[2018-06-07 06:52] LABS: Anisocytosis Slight; Basophils % (A) 0 %; Eosinophils # (A) 0.2 k/uL (0-0.7); Eosinophils % (A) 2 %; HCT 40.7 % (34.0-46.0); HGB 12.6 gm/dL (11.4-16.0); Hypochromasia Marked; Lymphocytes # (A) 1.8 k/uL (1.0-4.8); Lymphocytes % (A) 21 %; MCH 36.5 pg (25.0-35.0); MCHC 30.9 g/dL (31.0-37.0); Macrocytosis Marked; Mean Platelet Volume 8.3; Monocytes # (A) 0.4 k/uL (0-1.0); Monocytes % (A) 5 %; Neutrophils % (A) 69 %; Platelet Count 183 k/uL (150-450); RBC 3.44 m/uL (3.80-5.40); WBC 8.8 k/uL (3.8-10.6)
[2018-06-07 07:11] LABS: Albumin 3.5 g/dL (3.5-5.0); Calcium 9.6 mg/dL (8.4-10.2); Potassium 4.8 mmol/L (3.5-5.1); Total Bilirubin 1.4 mg/dL (0.2-1.3); Total Protein 6.6 g/dL (6.3-8.2)
[2018-06-07] MEDS: MAGNESIUM OXIDE 400 MG TAB PO SCH (09:06)
[2018-06-07] MEDS: POTASSIUM CHLORIDE ER 10 MEQ TAB.ER.PRT PO SCH (09:10)
[2018-06-07] MEDS: POTASSIUM CHLORIDE ER 20 MEQ TAB.ER PO SCH (09:10)
[2018-06-07] MEDS: CHOLECALCIFEROL 1,000 UNIT TAB PO SCH (09:10)
[2018-06-07] MEDS: DOCUSATE 100 MG CAP PO SCH (09:11)
[2018-06-07] MEDS: FUROSEMIDE 20 MG TAB PO SCH ×2 (09:11→15:10)
[2018-06-07] MEDS: METOPROLOL TARTRATE 50 MG TAB PO SCH (09:11)
[2018-06-07] MEDS: RIVAROXABAN 10 MG TAB PO SCH (09:11)
[2018-06-07] MEDS: SODIUM BICARBONATE TAB 650 MG TAB PO SCH (09:11)
[2018-06-07] MEDS: FERROUS SULFATE 325 MG TAB PO SCH (09:11)
[2018-06-07] MEDS: ALLOPURINOL 100 MG TAB PO SCH (09:11)
[2018-06-07] MEDS: CALCITRIOL 0.25 MCG CAP PO SCH (09:12)
[2018-06-07] MEDS: traMADol 50 MG TAB PO SCH ×2 (09:13→15:10)
[2018-06-07] MEDS: ISOSORBIDE MONONITRATE ER 60 MG TAB.ER.24H PO SCH (09:13)
[2018-06-07] MEDS: Wheat Dextrin [Benefiber] PO SCH (09:14)
[2018-06-07] MEDS: [UNRECOGNIZED DRUG - OTHER] PO SCH (11:14)
[2018-06-07] MEDS: METOPROLOL TARTRATE 25 MG TAB PO SCH (11:15)
--- NOTE | 2018-06-07 11:21 | PN ---
PROGRESS NOTE Mrs. Carrillo is an 83-year-old female with a history of atrial fibrillation, history of congestive heart failure, history of renal failure, as well as mitral regurgitation. She is feeling better today. Her breathing is better. She denies any symptoms of chest pain. She denies any dizziness, palpitation. She denies any nausea. She continues to be at this time on furosemide 20 mg twice a day, isosorbide mononitrate 60 mg daily, metoprolol tartrate 50 mg twice a day and 25 at midday, midodrine, Xarelto 10 mg daily. PHYSICAL EXAMINATION: Blood pressure 114/60 with a heart rate in the 90s. LUNGS: Clear. HEART: Irregular, regular. S1, S2. No S3 with a holosystolic murmur. No diastolic murmur, no rub. ABDOMEN: Soft, nontender. EXTREMITIES: Trace edema. LAB DATA: Revealed BUN and creatinine 51 and 2.46, potassium 4.8, hemoglobin of 12.6. IMPRESSION: 1. Congestive heart failure, improving. 2. History of atrial fibrillation, anticoagulated. 3. Chronic kidney disease. 4. Cholelithiasis with no active cholecystitis. RECOMMENDATION: From the cardiac standpoint, she is stable. I would expect she should be able to be discharged home soon and followed as an outpatient. MMODL / IJN: [id number] /
[2018-06-07 11:23] VITALS: RESP 18; TEMP 97.2
[2018-06-07 11:53] LABS: Glucose,Whole Blood 137 mg/dL (75-99)
--- NOTE | 2018-06-07 13:41 | P.PN ---
Subjective Progress Note Date: 06/07/18 Principal diagnosis: Acute exacerbation of CHF, acute on chronic systolic heart failure, atrial fibrillation with rapid ventricular response, coronary artery disease, history of prior lower extremity deep venous thrombosis, legally blind 06/07/2018, patient seen eval reexamined during the rounds clinically patient has been doing well awake and alert breathing comfortably no obvious distress present, still however get short of breath on activity and exertion labs reviewed medications reviewed 06/06/2018, patient seen eval reexamined during the rounds is still short of breath on activity and exertion however severity has improved lower extremity edema especially on the right side slowly improving labs reviewed medications reviewed patient is being followed by general surgery as well awaiting their final input for possible cholecystitis and cholelithiasis 06/05/2018, patient seen and evaluated examined during the rounds clinically patient remains stable however is still left shortness breath activity and exertion, due to abdominal discomfort and pain patient underwent AN ultrasound of the abdomen which revealed presence of Sade cases with gallbladder thickening CBD is within normal limit oral appearance of possible chronic cholecystitis along with cholelithiasis, abs reviewed medications reviewed 06/04/2018, patient seen eval reexamined during the rounds clinically patient is doing slightly better in terms of breathing cuff congestion shortness of breath remains absent, does get short of breath on activity and exertion she has been diuresing very well labs reviewed medications reviewed, BUN/creatinine today is 54 and 2.34 83-year-old female with the history of chronic atrial fibrillation and chronic systolic and diastolic heart failure with baseline ejection fraction of 40-45% patient does have a history of the pleural effusion requiring thoracentesis in the past however lately her fluid status has been fairly stable does follow in outpatient setting for her chronic intermittent asthma as well as pleural effusion, patient has not been feeling well with increasing shortness of breath started about 3-4 days ago, prior exacerbation occurred back in April she has been doing otherwise fairly well has intermittent cough but stable severity denies any sputum production she also noted increased swelling of the lower extremity patient presented into the emergency department she was seen eval reexamined has been admitted to hospital she has received IV furosemide with good urine output she has lost close to about 7-10 pounds in last 24 hours with diuresis, she is legally blind, she is on anticoagulation and tolerating very well, on specific questioning he denies any seizure-like to a loss of consciousness), denies any night sweats fever or chills denies any chest pain, denies any other bowel or bladder dysfunction, patient does have a chronic lower extremity swelling which has progressed in the last few days but settling down now, Objective - Vital Signs Vital signs: Vital Signs Temp 97.2 F L 06/07/18 11:22 Pulse 89 06/07/18 11:22 Resp 18 06/07/18 11:22 BP 110/68 06/07/18 11:22 Pulse Ox 95 06/07/18 11:22 Intake & Output 06/06/18 06/07/18 06/07/18 18:59 06:59 18:59 Intake Total 720 250 558 Output Total 3 Balance 717 250 558 Weight 78.4 kg Intake: IV 10 20 0.9 10 Invasive Line 1 20 Oral 720 240 538 Output: Stool 3 Other: Voiding Method Toilet Toilet Toilet # Voids 3 3 - Exam Constitutional General appearance: cooperative, disheveled, mild distress - EENT Eyes: EOMI, PERRLA, normal appearance ENT: hard of hearing, normal oropharynx Ears: bilateral: normal - Neck Neck: normal ROM Carotids: bilateral: upstroke normal, bruit absent Thyroid: bilateral: normal size - Respiratory Respiratory: bilateral: diminished, rales, negative: dullness, rhonchi, wheezing , prolonged expiration, prolonged inspiration - Cardiovascular Rhythm: irregularly irregular Heart sounds: normal: S1, S2 - Gastrointestinal General gastrointestinal: decreased bowel sounds, distended, normal bowel sounds , soft mild tenderness intermittent predominantly on the right side - Integumentary Integumentary: normal turgor - Musculoskeletal Musculoskeletal: gait normal, generalized weakness, strength equal bilaterally - Psychiatric Psychiatric: A&O x's 3, appropriate affect, intact judgment & insight - Labs CBC & Chem 7: 06/07/18 06:25 06/07/18 06:25 Labs: Abnormal Lab Results - Last 24 Hours (Table) 06/06/18 06/06/18 06/07/18 Range/Units 16:35 21:19 06:02 RBC (3.80-5.40) m/uL MCV (80.0-100.0) fL MCH (25.0-35.0) pg MCHC (31.0-37.0) g/dL RDW (11.5-15.5) % BUN (7-17) mg/dL Creatinine (0.52-1.04) mg/dL Glucose (74-99) mg/dL POC Glucose (mg/dL) 162 H 158 H 101 H (75-99) mg/dL Magnesium (1.6-2.3) mg/dL Total Bilirubin (0.2-1.3) mg/dL 06/07/18 06/07/18 06/07/18 Range/Units 06:25 06:25 06:25 RBC 3.44 L (3.80-5.40) m/uL MCV 118.0 H (80.0-100.0) fL MCH 36.5 H (25.0-35.0) pg MCHC 30.9 L (31.0-37.0) g/dL RDW 18.0 H (11.5-15.5) % BUN 51 H (7-17) mg/dL Creatinine 2.46 H (0.52-1.04) mg/dL Glucose 111 H (74-99) mg/dL POC Glucose (mg/dL) (75-99) mg/dL Magnesium 2.6 H (1.6-2.3) mg/dL Total Bilirubin 1.4 H (0.2-1.3) mg/dL 06/07/18 Range/Units 11:47 RBC (3.80-5.40) m/uL MCV (80.0-100.0) fL MCH (25.0-35.0) pg MCHC (31.0-37.0) g/dL RDW (11.5-15.5) % BUN (7-17) mg/dL Creatinine (0.52-1.04) mg/dL Glucose (74-99) mg/dL POC Glucose (mg/dL) 137 H (75-99) mg/dL Magnesium (1.6-2.3) mg/dL Total Bilirubin (0.2-1.3) mg/dL Assessment and Plan Assessment: Cholelithiasis along with acute on chronic cholecystitis Acute exacerbation of acute on chronic systolic heart failure as well as some component of diastolic heart failure Small bilateral pleural effusion Atrial fibrillation with rapid ventricular response now better under control Chronic asthma mild intermittent, patient is being monitored off of therapy Chronic renal failure stage IV Hypertension hypertensive cardiovascular disease Type 2 diabetes mellitus with complication Chronic gout Legally blind Plan: Observe patient off of bronchodilators Agree with surgical evaluation of acute on chronic cholecystitis with cholelithiasis Continue gentle diuresis monitor renal functions closely Pleural effusion is very small no plans for thoracentesis continue maximal medical therapy with diuresis with close monitoring and observation of renal function Continue anticoagulation Fall precautions Care plan discussed with the patient and daughter present at bedside at length, will follow closely Time with Patient: Greater than 30
--- NOTE | 2018-06-07 14:01 | P.DS ---
Providers Date of admission: 06/02/18 13:14 Expected date of discharge: 06/07/18 Attending physician: Elyse Owen Consults: 06/02/18 13:12 Consult Physician Routine Consulting Provider: Buck Peres Consult Reason/Comments: chf Do you want consulting provider notified?: Yes 06/03/18 00:22 Consult Physician Routine Consulting Provider: Rocky Wellington Consult Reason/Comments: Fluid Overload Do you want consulting provider notified?: Yes 06/05/18 11:49 Consult Physician Routine Consulting Provider: Teodoro Vuong Consult Reason/Comments: abdominal pain, nausea, gallstones Do you want consulting provider notified?: Yes Primary care physician: Jak Nathan [facility] Course: Discharge diagnosis #1 acute on chronic systolic congestive heart failure exacerbation. Last echo from November 2017 shows an EF of 40-45%. Switch from IV to oral Lasix 20 mg twice a day. Which is same as torsemide 10 mg twice a day patient will continue this at home. Cardiology following. Add NING hose for lower extremity edema. Keep legs elevated. #2 chronic atrial fibrillation. heart rate is well-controlled, maintained on Xarelto for anticoagulation #3 nausea, transient right upper quadrant tenderness and elevated bilirubin likely related to patient's heart failure. Patient is to follow-up with surgical service if symptoms recur. Abdominal ultrasound showing cholelithiasis and correlate for cholecystitis. No surgical intervention required at this time. #4 history of chronic kidney disease stage IV #5 underlying history of hypertension #6 underlying history of diabetes mellitus type 2 continue home medication and add insulin sliding scale #7 underlying history of gout #8 Underlying history of chronic back pain #9 Chronic history of gallstones patient evaluated by surgery last admission no surgical intervention recommended at that time. #10. Moderate protein calorie malnutrition: Add Glucerna shakes #11 hyper magnesium: Hold magnesium supplement. Recheck magnesium level in 1 week. Magnesium at discharge 2.6 Hospital course Trina Carrillo is an 83-year-old female patient of Dr. Nathan who presented to [facility] emergency room with a chief complaint of nausea and worsening shortness of breath. Patient has a known history of congestive heart failure she had an echocardiogram in November 2017 which revealed an ejection fraction of 40-45% she was admitted recently to [facility] with acute congestive heart failure exacerbation and was discharged home on 02/2018 patient has been doing well since then. However in the last few days she started having episodes of nausea and worsening shortness of breath and weight gain with lower extremity edema she decided to come to emergency room. In the ER patient was evaluated her clinical picture, BNP level, and chest x- ray were all compatible with acute congestive heart failure exacerbation, she was started on IV Lasix, oral Demadex was held patient was admitted to telemetry floor, cardiology consultation was requested. Patient has a known history of atrial fibrillation heart rate on presentation was 99 she is maintained on Xarelto for anticoagulation. 06/04/2018 patient is reporting improvement in her shortness of breath since being placed on the IV Lasix. She is tolerating a diet no longer having any nausea or dry heaves. Initially an abdominal ultrasound was ordered this morning it was canceled. We'll look into further why ultrasound was canceled. At this time patient reports regular bowel movements. Denies any chest pain. Denies any difficulty or burning with urination. White count has normalized. Creatinine down from 2.46-2.34. Weight has gone up from 76.9 kg to 77.4 06/05/2018 patient reports improvement in her shortness of breath. She is stomach some lower extremity edema. Nausea has also shown improvement. No vomiting. Reports having a bowel movement. Abdominal ultrasound shows cholelithiasis and correlate for cholecystitis. Surgical consult has been placed. Total bili of has gone up from 1.6-1.8. Creatinine 2.34-2.43. Weight has decreased from 77.4 kg to 76.43 On 06/06/2018 patient is currently alert and oriented 3. Patient is resting comfortably in chair. Lasix has been switched from IV to by mouth per cardiology services. Patient reports nausea vomiting has significantly improved. Patient denies chest pain or shortness breath patient denies any urinary burning or frequency. Total Bilirubin decreasing to 1.4. Patient is medical stable for discharge on 06/07/2018. She was treated for congestive heart failure exacerbation and received IV Lasix. She's been switched over to oral Lasix. It is okay for her to continue with the torsemide 10 mg twice a day. Patient will follow-up with cardiology and Dr. Nathan in the office in one week. She was also seen by pulmonary service for small pleural effusions that did not require thoracentesis. Patient is medical stable for discharge. Please refer to chart for any further details. I performed an examination of the patient and discussed their management with the physician White Mixing Operator. I have reviewed the Physician White Mixing Operator's notes and agree with the documented findings and plan of care Patient Condition at Discharge: Stable Plan - Discharge Summary Discharge Rx Participant: No New Discharge Prescriptions: New Metoprolol Tartrate [Lopressor] 25 mg PO 1200 tab Metoprolol Tartrate [Lopressor] 50 mg PO BID tab Continue Linagliptin [Tradjenta] 5 mg PO DAILY@1500 Allopurinol [Zyloprim] 200 mg PO DAILY@0800 Omeprazole [PriLOSEC] 20 mg PO DAILY@0700 Docusate Sodium [Stool Softener] 100 mg PO BID@09,1999 Garlic 1 tab PO BID@899,1999 Calcitriol 0.25 mcg PO SUTUTHSA@0800 traMADol HCL [Ultram] 50 mg PO TID@0800,1500,2300 Brinzolamide/Brimonidine Tart [Simbrinza 1%-0.2% Eye Drops] 1 drop BOTH EYES BID@07,1999 Vit C/E/Zn/Coppr/Lutein/Zeaxan [Preservision Areds 2 Softgel] 1 cap PO BID@ 08,1999 Ferrous Sulfate [Feosol] 325 mg PO DAILY@0800 Ammonium Lactate Cream [Lac-Hydrin 12% Cream] 1 applic TOPICAL BID@699,1999 Cholecalciferol (Vitamin D3) [Vitamin D3] 2,000 unit PO DAILY@0800 Wheat Dextrin [Benefiber] 1 packet PO BID@08,1999 Isosorbide Mononitrate ER [Imdur] 60 mg PO DAILY@0800 Rivaroxaban [Xarelto] 10 mg PO DAILY@0800 Midodrine [ProAmatine] 5 mg PO TID@0700,1500,2300 Potassium Chloride ER [K-Dur 20] 20 meq PO DAILY #30 tab Sodium Bicarbonate Tab 650 mg PO BID #60 tab Torsemide [Demadex] 10 mg PO BID@0900,1500 Potassium Chloride ER [K-Dur 10] 10 meq PO DAILY Discontinued Magnesium Oxide [Mag-Ox] 400 mg PO DAILY@0800 Metoprolol Tartrate [Lopressor] 25 mg PO DIRECTED #90 tab Discharge Medication List Allopurinol [Zyloprim] 200 mg PO DAILY@0801/22/14 [History] Linagliptin [Tradjenta] 5 mg PO DAILY@1500 01/22/14 [History] Omeprazole [PriLOSEC] 20 mg PO DAILY@69901/22/14 [History] Docusate Sodium [Stool Softener] 100 mg PO BID@899,199902/22/14 [History] Garlic 1 tab PO BID@899,199902/22/14 [History] Calcitriol 0.25 mcg PO SUTUTHSA@79908/22/14 [History] traMADol HCL [Ultram] 50 mg PO TID@0800,1500,2300 01/13/16 [History] Brinzolamide/Brimonidine Tart [Simbrinza 1%-0.2% Eye Drops] 1 drop BOTH EYES BID @699,199905/11/17 [History] Vit C/E/Zn/Coppr/Lutein/Zeaxan [Preservision Areds 2 Softgel] 1 cap PO BID@799, 199912/03/17 [History] Ferrous Sulfate [Feosol] 325 mg PO DAILY@79901/11/18 [History] Ammonium Lactate Cream [Lac-Hydrin 12% Cream] 1 applic TOPICAL BID@699,02/21 [History] Cholecalciferol (Vitamin D3) [Vitamin D3] 2,000 unit PO DAILY@79902/10/18 [ History] Isosorbide Mononitrate ER [Imdur] 60 mg PO DAILY@79902/10/18 [History] Wheat Dextrin [Benefiber] 1 packet PO BID@799,199902/10/18 [History] Midodrine [ProAmatine] 5 mg PO TID@0700,1500,2300 04/10/18 [History] Rivaroxaban [Xarelto] 10 mg PO DAILY@79904/10/18 [History] Potassium Chloride ER [K-Dur 20] 20 meq PO DAILY #30 tab 04/13/18 [Rx] Sodium Bicarbonate Tab 650 mg PO BID #60 tab 04/13/18 [Rx] Potassium Chloride ER [K-Dur 10] 10 meq PO DAILY 06/02/18 [History] Torsemide [Demadex] 10 mg PO BID@0900,1500 06/02/18 [History] Metoprolol Tartrate [Lopressor] 25 mg PO 1200 tab 06/07/18 [Rx] Metoprolol Tartrate [Lopressor] 50 mg PO BID tab 06/07/18 [Rx] Follow up Appointment(s)/Referral(s): Tasha May MD [STAFF PHYSICIAN] - 1 Week Jak Nathan MD [Primary Care Provider] - 06/12/18 2:10 pm (MONDAY) Ambulatory/Diagnostic Orders: Comprehensive Metabolic Panel [LAB.AMB] Time Frame: 1 Week, Location: None Selected Magnesium [LAB.AMB] Time Frame: 1 Week, Location: None Selected Patient Instructions/Handouts: Heart Failure (DC), Heart Healthy Diet (DC) Activity/Diet/Wound Care/Special Instructions: Diet: cardiac, renal, diabetic Activity: as tolerated Discharge Disposition: HOME SELF-CARE
[2018-06-07 15:10] VITALS: BP 117/68; PULSE 85
[2018-06-07] MEDS: LINAGLIPTIN 5 MG TABLET PO SCH (15:10)
== END 2018-06-07 15:56 | disposition home or self-care (01) | DRG 291 ==
LOC: EC 10:02 → 3SCARD 13:14
PROVIDERS: ADMIT Internal Medicine; ATTEND Internal Medicine
DX: I13.0 Hypertensive heart and chronic kidney disease with heart failure and stage 1 through stage 4 chronic kidney disease, or unspecified chronic kidney disease (principal); I50.43 Acute on chronic combined systolic (congestive) and diastolic (congestive) heart failure; N18.4 Chronic kidney disease, stage 4 (severe); E44.0 Moderate protein-calorie malnutrition; N17.9 Acute kidney failure, unspecified; K80.10 Calculus of gallbladder with chronic cholecystitis without obstruction; E11.22 Type 2 diabetes mellitus with diabetic chronic kidney disease; K76.1 Chronic passive congestion of liver; I48.2 Chronic atrial fibrillation; I34.0 Nonrheumatic mitral (valve) insufficiency; R09.02 Hypoxemia; M54.9 Dorsalgia, unspecified; G89.29 Other chronic pain; J45.20 Mild intermittent asthma, uncomplicated; H91.90 Unspecified hearing loss, unspecified ear; H54.8 Legal blindness, as defined in USA; M1A.9XX0 Chronic gout, unspecified, without tophus (tophi); K21.9 Gastro-esophageal reflux disease without esophagitis; H35.30 Unspecified macular degeneration; H40.9 Unspecified glaucoma; I25.10 Atherosclerotic heart disease of native coronary artery without angina pectoris; Z79.84 Long term (current) use of oral hypoglycemic drugs; Z79.01 Long term (current) use of anticoagulants; Z79.891 Long term (current) use of opiate analgesic; Z79.899 Other long term (current) drug therapy; Z86.19 Personal history of other infectious and parasitic diseases; Z90.710 Acquired absence of both cervix and uterus; Z90.49 Acquired absence of other specified parts of digestive tract; Z86.718 Personal history of other venous thrombosis and embolism; Z88.5 Allergy status to narcotic agent; Z88.8 Allergy status to other drugs, medicaments and biological substances; Z96.642 Presence of left artificial hip joint; Z95.828 Presence of other vascular implants and grafts; Z87.891 Personal history of nicotine dependence
CPT/HCPCS: 36415; 71046; 76700; 80053; 82550; 82553; 83036; 83735; 83880; 84484; 85025; 85610; 85730; 93005; 96374; 96375; 96376; 99285

== ENCOUNTER 2018-06-14 11:50 | Inpatient (IN) | payer MEDICARE, BC ==
--- NOTE | 2018-06-14 12:44 | ED ---
General Adult HPI - General Chief complaint: Recheck/Abnormal Lab/Rx Stated complaint: AFib/vomiting/dizziness Time Seen by Provider: 06/14/18 12:42 Source: patient, RN notes reviewed Mode of arrival: wheelchair Limitations: no limitations - History of Present Illness Initial comments: This is an 83-year-old female whose been brought to the emergency department by her daughters because she has been having some difficulty breathing lately and much more fatigued. Patient also has increased edema to both legs and now in her abdomen. Patient was recently admitted to the hospital for same about a week or so ago family states she went home and she has gotten worse even though she's been on more Lasix recently. Patient denies any recent fevers or chills. Patient denies any chest pain palpitations. Patient states she is coughing up clear sputum on a regular basis. Patient denies any abdominal pain except if you press in her lower abdomen then it's tender she states. Patient denies any diarrhea or vomiting. Patient denies any injury or trauma. - Related Data Home Medications Medication Instructions Recorded Confirmed Allopurinol [Zyloprim] 200 mg PO DAILY 01/22/14 06/14/18 Linagliptin [Tradjenta] 5 mg PO DAILY 01/22/14 06/14/18 Omeprazole [PriLOSEC] 20 mg PO DAILY@0700 01/22/14 06/14/18 Docusate Sodium [Stool Softener] 100 mg PO BID 02/22/14 06/14/18 Garlic 1 tab PO BID 02/22/14 06/14/18 Calcitriol 0.25 mcg PO SUTUTHSA 08/22/14 06/14/18 traMADol HCL [Ultram] 50 mg PO TID 01/13/16 06/14/18 Brinzolamide/Brimonidine Tart 1 drop BOTH EYES BID 05/11/17 06/14/18 [Simbrinza 1%-0.2% Eye Drops] Vit C/E/Zn/Coppr/Lutein/Zeaxan 1 cap PO BID 12/03/17 06/14/18 [Preservision Areds 2 Softgel] Ferrous Sulfate [Feosol] 325 mg PO DAILY 01/11/18 06/14/18 Ammonium Lactate Cream [Lac-Hydrin 1 applic TOPICAL BID 02/10/18 06/14/18 12% Cream] Cholecalciferol (Vitamin D3) 2,000 unit PO DAILY 02/10/18 06/14/18 [Vitamin D3] Isosorbide Mononitrate ER [Imdur] 60 mg PO DAILY 02/10/18 06/14/18 Wheat Dextrin [Benefiber] 1 packet PO BID 02/10/18 06/14/18 Midodrine [ProAmatine] 5 mg PO TID 04/10/18 06/14/18 Rivaroxaban [Xarelto] 10 mg PO DAILY 04/10/18 06/14/18 Potassium Chloride ER [K-Dur 10] 10 meq PO DAILY 06/02/18 06/14/18 Furosemide [Lasix] 40 mg PO BID 06/14/18 06/14/18 Metoprolol Tartrate [Lopressor] 25 mg PO TID 06/14/18 06/14/18 Previous Rx's Medication Instructions Recorded Potassium Chloride ER [K-Dur 20] 20 meq PO DAILY #30 tab 04/13/18 Sodium Bicarbonate Tab 650 mg PO BID #60 tab 04/13/18 Allergies Allergy/AdvReac Type Severity Reaction Status Date / Time atorvastatin calcium Allergy Unknown Verified 06/14/18 12:59 [From Lipitor] codeine Allergy Unknown Verified 06/14/18 12:59 [From Tylenol-Codeine #3] hydrocodone Allergy Vomiting Verified 06/14/18 12:59 Review of Systems ROS Statement: Those systems with pertinent positive or pertinent negative responses have been documented in the HPI. ROS Other: All systems not noted in ROS Statement are negative. Past Medical History Past Medical History: Atrial Fibrillation, Coronary Artery Disease (CAD), Cancer , Heart Failure, Diabetes Mellitus, Deep Vein Thrombosis (DVT), Eye Disorder, GERD/Reflux, Hypertension, Renal Disease Additional Past Medical History / Comment(s): Macular Degeneration and gluacoma , gallstones, stage 3 kidney failure, hx Uterine & groin CA; WEARS BILAT THIGH HIGH HOSE, uses cane or walker, patient states she has "2 blood clots in right groin since 2003" family states now clot is "through the whole leg" CHF, History of Any Multi-Drug Resistant Organisms: ESBL, VRE Date of last positivie culture/infection: 02/15/18 ESBL E.Coli; 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 left hip replacement, rt breast biopsy, darcy filter rt leg, biopsy of right nostril no results yet Past Anesthesia/Blood Transfusion Reactions: No Reported Reaction Past Psychological History: No Psychological Hx Reported Smoking Status: Former smoker Past Alcohol Use History: None Reported Past Drug Use History: None Reported - Past Family History Mother Family Medical History: No Reported History General Exam - General Exam Comments Initial Comments: GENERAL: Patient is well-developed and well-nourished. Patient is nontoxic and well- hydrated and is in mild distress. ENT: Neck is soft and supple. No significant lymphadenopathy is noted. Oropharynx is clear. Moist mucous membranes. Neck has full range of motion without eliciting any pain. EYES: The sclera were anicteric and conjunctiva were pink and moist. Extraocular movements were intact and pupils were equal round and reactive to light. Eyelids were unremarkable. PULMONARY: Unlabored respirations. Good breath sounds bilaterally. No audible rales rhonchi or wheezing was noted. CARDIOVASCULAR: There is a regular rate and rhythm without any murmurs gallops or rubs. ABDOMEN: Patient has lower abdominal tenderness. No palpable organomegaly was noted. There is no palpable pulsatile mass. SKIN: Skin is clear with no lesions or rashes and otherwise unremarkable. NEUROLOGIC: Patient is alert and oriented x3. Cranial nerves II through XII are grossly intact. Motor and sensory are also intact. Normal speech, volume and content. Symmetrical smile. MUSCULOSKELETAL: Normal extremities with adequate strength and full range of motion. Patient has 2+ edema bilaterally and some edema along the distal aspect of her abdomen. LYMPHATICS: No significant lymphadenopathy is noted PSYCHIATRIC: Normal psychiatric evaluation. Limitations: no limitations Course Vital Signs 06/14/18 12:11 Pulse Rate 98 Respiratory 16 Rate Blood Pressure 117/87 O2 Sat by Pulse 99 Oximetry Medical Decision Making - Medical Decision Making EKG shows atrial fibrillation with rapid ventricular response at 111 bpm QRS is 98 QT interval 362 QTC is 492. Patient has some inverted T waves inferiorly as well as precordial leads V4 through V6 which were also seen her previous EKG. Patient is not exhibiting any chest pain at this time. Patient's potassium was elevated so started the patient some Kayexalate. Patient's chest x-ray showed no significant edema however the BMP was also started the patient some Lasix. I spoke with Dr. Owen he agreed with admitting the patient admitted the patient I consult Dr. Wellington I consulted cardiology and I wrote admitting orders and continue Lasix on the floor. - Lab Data Result diagrams: 06/14/18 15:23 06/14/18 16:38 Lab Results 06/14/18 06/14/18 06/14/18 Range/Units 15:23 15:23 15:23 WBC 9.1 (3.8-10.6) k/uL RBC 4.05 (3.80-5.40) m/uL Hgb 14.1 (11.4-16.0) gm/dL Hct 48.2 H (34.0-46.0) % MCV 118.9 H (80.0-100.0) fL MCH 34.7 (25.0-35.0) pg MCHC 29.2 L (31.0-37.0) g/dL RDW 18.1 H (11.5-15.5) % Plt Count 178 (150-450) k/uL Neutrophils % (Manual) 85 % Lymphocytes % (Manual) 12 % Monocytes % (Manual) 3 % Neutrophils # (Manual) 7.74 H (1.3-7.7) k/uL Lymphocytes # (Manual) 1.09 (1.0-4.8) k/uL Monocytes # (Manual) 0.27 (0-1.0) k/uL Nucleated RBCs 2 H (0-0) /100 WBC Polychromasia Present Hypochromasia Marked Anisocytosis Slight Macrocytosis Marked PT 17.6 H (9.0-12.0) sec INR 1.9 H (<1.2) APTT 40.7 H (22.0-30.0) sec D-Dimer 6.04 H (<0.60) mg/L FEU Sodium (137-145) mmol/L Potassium (3.5-5.1) mmol/L Chloride (98-107) mmol/L Carbon Dioxide (22-30) mmol/L Anion Gap mmol/L BUN (7-17) mg/dL Creatinine (0.52-1.04) mg/dL Est GFR (CKD-EPI)AfAm (>60 ml/min/1.73 sqM) Est GFR (CKD-EPI)NonAf (>60 ml/min/1.73 sqM) Glucose (74-99) mg/dL Calcium (8.4-10.2) mg/dL Magnesium (1.6-2.3) mg/dL Total Bilirubin (0.2-1.3) mg/dL AST (14-36) U/L ALT (9-52) U/L Alkaline Phosphatase (38-126) U/L Total Creatine Kinase 26 L (30-135) U/L CK-MB (CK-2) 1.7 (0.0-2.4) ng/mL CK-MB (CK-2) Rel Index 6.5 Troponin I 0.014 (0.000-0.034) ng/mL NT-Pro-B Natriuret Pep pg/mL Total Protein (6.3-8.2) g/dL Albumin (3.5-5.0) g/dL 06/14/18 06/14/18 Range/Units 15:23 16:38 WBC (3.8-10.6) k/uL RBC (3.80-5.40) m/uL Hgb (11.4-16.0) gm/dL Hct (34.0-46.0) % MCV (80.0-100.0) fL MCH (25.0-35.0) pg MCHC (31.0-37.0) g/dL RDW (11.5-15.5) % Plt Count (150-450) k/uL Neutrophils % (Manual) % Lymphocytes % (Manual) % Monocytes % (Manual) % Neutrophils # (Manual) (1.3-7.7) k/uL Lymphocytes # (Manual) (1.0-4.8) k/uL Monocytes # (Manual) (0-1.0) k/uL Nucleated RBCs (0-0) /100 WBC Polychromasia Hypochromasia Anisocytosis Macrocytosis PT (9.0-12.0) sec INR (<1.2) APTT (22.0-30.0) sec D-Dimer (<0.60) mg/L FEU Sodium 136 L (137-145) mmol/L Potassium 6.3 H* (3.5-5.1) mmol/L Chloride 100 (98-107) mmol/L Carbon Dioxide 21 L (22-30) mmol/L Anion Gap 15 mmol/L BUN 73 H (7-17) mg/dL Creatinine 3.72 H (0.52-1.04) mg/dL Est GFR (CKD-EPI)AfAm 12 (>60 ml/min/1.73 sqM) Est GFR (CKD-EPI)NonAf 11 (>60 ml/min/1.73 sqM) Glucose 103 H (74-99) mg/dL Calcium 9.8 (8.4-10.2) mg/dL Magnesium 2.5 H (1.6-2.3) mg/dL Total Bilirubin 2.3 H (0.2-1.3) mg/dL AST 70 H (14-36) U/L ALT 63 H (9-52) U/L Alkaline Phosphatase 102 (38-126) U/L Total Creatine Kinase (30-135) U/L CK-MB (CK-2) (0.0-2.4) ng/mL CK-MB (CK-2) Rel Index Troponin I (0.000-0.034) ng/mL NT-Pro-B Natriuret Pep 56387 pg/mL Total Protein 6.6 (6.3-8.2) g/dL Albumin 3.6 (3.5-5.0) g/dL Disposition Clinical Impression: Dyspnea, Weakness, Hyperkalemia Disposition: ADMITTED IP TO THIS HOSP Referrals: Jak Nathan MD [Primary Care Provider] - 1-2 days Time of Disposition: 17:58
--- NOTE | 2018-06-14 14:33 | XR ---
EXAMINATION TYPE: XR chest 2V DATE OF EXAM: 06/14/2018 COMPARISON: Chest x-ray June 02, 2018 HISTORY: Difficulty in breathing. Leg swelling. TECHNIQUE: Frontal and lateral views of the chest are obtained. FINDINGS: The cardiac silhouette size is enlarged with ectatic aorta. There is persistent small righ t pleural effusion. There is persistent bilateral midlung linear atelectasis and/or scarring. There i s no new focal airspace opacity or pneumothorax seen bilaterally. The osseous structures are intact. IMPRESSION: Cardiomegaly with small right pleural effusion and bilateral midlung linear scarring and /or atelectasis. No significant change from prior chest x-ray.
[2018-06-14 16:01] LABS: Anisocytosis Slight; HCT 48.2 % (34.0-46.0); HGB 14.1 gm/dL (11.4-16.0); Hypochromasia Marked; MCH 34.7 pg (25.0-35.0); MCHC 29.2 g/dL (31.0-37.0); MCV 118.9 fL (80.0-100.0); Macrocytosis Marked; Mean Platelet Volume 8.7; Platelet Count 178 k/uL (150-450); RBC 4.05 m/uL (3.80-5.40); RDW 18.1 % (11.5-15.5)
[2018-06-14 16:08] LABS: INR 1.9 (<1.2); Partial Thromboplastin Time 40.7 sec (22.0-30.0); Prothrombin Time 17.6 sec (9.0-12.0)
[2018-06-14 16:11] LABS: D-Dimer 6.04 mg/L FEU (<0.60)
[2018-06-14 16:20] LABS: Creatine Kinase MB 1.7 ng/mL (0.0-2.4); Troponin I 0.014 ng/mL (0.000-0.034)
[2018-06-14 16:26] LABS: Neutrophils % (M) 85 %; Nucleated Red Blood Cells 2 /100 WBC (0-0); Total Cells Counted 200
[2018-06-14 16:27] LABS: Lymphocytes # (M) 1.09 k/uL (1.0-4.8); Monocytes # (M) 0.27 k/uL (0-1.0); Neutrophils # (M) 7.74 k/uL (1.3-7.7); Polychromasia Present; WBC 9.1 k/uL (3.8-10.6)
[2018-06-14 17:29] LABS: Albumin 3.6 g/dL (3.5-5.0); Calcium 9.8 mg/dL (8.4-10.2); Magnesium 2.5 mg/dL (1.6-2.3); Total Bilirubin 2.3 mg/dL (0.2-1.3); Total Protein 6.6 g/dL (6.3-8.2)
[2018-06-14 17:32] LABS: Potassium 6.3 mmol/L (3.5-5.1)
[2018-06-14] MEDS ORDERED: SODIUM POLYSTYRENE SULFONATE 15 GM/60 ML BOTTLE PO STA (17:41)
[2018-06-14] MEDS ORDERED: FUROSEMIDE 10 MG/ML 4 ML VIAL IV STA (17:41)
[2018-06-14 21:15] LABS: Glucose,Whole Blood 88 mg/dL (75-99)
[2018-06-14] MEDS: traMADol 50 MG TAB PO SCH (21:51)
[2018-06-14] MEDS: METOPROLOL TARTRATE 25 MG TAB PO SCH (21:51)
[2018-06-14] MEDS: MIDODRINE 5 MG TAB PO SCH (21:53)
[2018-06-14] MEDS: FUROSEMIDE 10 MG/ML 4 ML VIAL IV SCH (23:32)
[2018-06-15] MEDS ORDERED: ONDANSETRON 4 MG/2 ML VIAL IVP PRN (05:13)
[2018-06-15 06:18] LABS: Glucose,Whole Blood 83 mg/dL (75-99)
[2018-06-15] MEDS: PANTOPRAZOLE 40 MG TABLET PO SCH ×2 (06:21→10:30)
[2018-06-15 06:38] LABS: Anisocytosis Slight; Basophils % (A) 0 %; Eosinophils # (A) 0.1 k/uL (0-0.7); Eosinophils % (A) 1 %; HCT 43.5 % (34.0-46.0); HGB 13.7 gm/dL (11.4-16.0); Hypochromasia Marked; Lymphocytes # (A) 1.5 k/uL (1.0-4.8); Lymphocytes % (A) 17 %; MCH 37.1 pg (25.0-35.0); MCHC 31.5 g/dL (31.0-37.0); MCV 117.7 fL (80.0-100.0); Macrocytosis Marked; Mean Platelet Volume 8.6; Monocytes # (A) 0.5 k/uL (0-1.0); Monocytes % (A) 5 %; Neutrophils # (A) 6.3 k/uL (1.3-7.7); Neutrophils % (A) 73 %; Platelet Count 195 k/uL (150-450); RDW 17.6 % (11.5-15.5); WBC 8.6 k/uL (3.8-10.6)
[2018-06-15 06:41] LABS: Potassium 5.9 mmol/L (3.5-5.1)
[2018-06-15] MEDS ORDERED: SODIUM BICARBONATE TAB 650 MG TAB PO SCH ×2 (09:00→21:00)
[2018-06-15] MEDS ORDERED: DEXTROSE 50%-WATER 50 ML SYRINGE IVP STA (09:06)
[2018-06-15] MEDS ORDERED: INSULIN REGULAR 100 UNIT/ML VIAL IV ONE (09:06)
--- NOTE | 2018-06-15 09:07 | P.NPCON ---
History of Present Illness - Reason for Consult acute renal failure, chronic renal failure - History of Present Illness reason for consultation: Acute kidney injury on chronic kidney disease History of present illness: Patient is a 83-year-old female seen in renal consultation for acute kidney injury on chronic kidney disease. 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 Recently her creatinine has been in the range of 2-2.5. Patient states she was taking torsemide 10 mg twice daily. This was changed to Lasix 40 mg orally twice daily last Monday. Patient continues to have progressive edema. She has gained about 5 pounds over the last 1 week. She does admit to good urine output. She feels weak. Potassium level was 6.3 on admission and is 5.9 this morning. She was noted to have elevated postvoid residuals and has a Erickson catheter in place. She has history of systolic CHF with ejection fraction of 40-45% with severe mitral regurgitation. Creatinine was 3.7-1 admission and is 3.83 today. Oral intake is poor. Vital signs are stable. General: The patient appeared well nourished and normally developed. HEENT: Head exam is unremarkable. Neck is without jugular venous distension. LUNGS: Lungs are clear to auscultation and percussion. Breath sounds decreased. HEART: Rate and Rhythm are regular. First and second heart sounds normal. No murmurs, rubs or gallops. ABDOMEN: Abdominal exam reveals normal bowel sounds. Non-tender and non- distended. No evidence of peritonitis. EXTREMITITES: 1+ edema. Past Medical History Past Medical History: Atrial Fibrillation, Coronary Artery Disease (CAD), Cancer , Heart Failure, Diabetes Mellitus, Deep Vein Thrombosis (DVT), Eye Disorder, GERD/Reflux, Hypertension, Renal Disease Additional Past Medical History / Comment(s): Macular Degeneration and gluacoma , gallstones, stage 3 kidney failure, hx Uterine & groin CA; WEARS BILAT THIGH HIGH HOSE, uses cane or walker, patient states she has "2 blood clots in right groin since 2003" family states now clot is "through the whole leg" CHF, History of Any Multi-Drug Resistant Organisms: ESBL, VRE Date of last positivie culture/infection: 02/15/18 ESBL E.Coli; 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 left hip replacement, rt breast biopsy, darcy filter rt leg, biopsy of right nostril Past Anesthesia/Blood Transfusion Reactions: No Reported Reaction Past Psychological History: No Psychological Hx Reported Smoking Status: Former smoker Past Alcohol Use History: None Reported Additional Past Alcohol Use History / Comment(s): smoked 1 pkg from 1961 to 1971 Past Drug Use History: None Reported - Past Family History Mother Family Medical History: No Reported History Additional Family Medical History / Comment(s): Family states pt's mother " of pneumonia". Father Family Medical History: Diabetes Mellitus Medications and Allergies Home Medications Medication Instructions Recorded Confirmed Type Allopurinol [Zyloprim] 200 mg PO DAILY 01/22/14 06/14/18 History Linagliptin [Tradjenta] 5 mg PO DAILY 01/22/14 06/14/18 History Omeprazole [PriLOSEC] 20 mg PO DAILY@0700 01/22/14 06/14/18 History Docusate Sodium [Stool Softener] 100 mg PO BID 02/22/14 06/14/18 History Garlic 1 tab PO BID 02/22/14 06/14/18 History Calcitriol 0.25 mcg PO SUTUTHSA 08/22/14 06/14/18 History traMADol HCL [Ultram] 50 mg PO TID 01/13/16 06/14/18 History Brinzolamide/Brimonidine Tart 1 drop BOTH EYES BID 05/11/17 06/14/18 History [Simbrinza 1%-0.2% Eye Drops] Vit C/E/Zn/Coppr/Lutein/Zeaxan 1 cap PO BID 12/03/17 06/14/18 History [Preservision Areds 2 Softgel] Ferrous Sulfate [Feosol] 325 mg PO DAILY 01/11/18 06/14/18 History Ammonium Lactate Cream [Lac-Hydrin 1 applic TOPICAL BID 02/10/18 06/14/18 History 12% Cream] Cholecalciferol (Vitamin D3) 2,000 unit PO DAILY 02/10/18 06/14/18 History [Vitamin D3] Isosorbide Mononitrate ER [Imdur] 60 mg PO DAILY 02/10/18 06/14/18 History Wheat Dextrin [Benefiber] 1 packet PO BID 02/10/18 06/14/18 History Midodrine [ProAmatine] 5 mg PO TID 04/10/18 06/14/18 History Rivaroxaban [Xarelto] 10 mg PO DAILY 04/10/18 06/14/18 History Potassium Chloride ER [K-Dur 20] 20 meq PO DAILY #30 tab 04/13/18 06/14/18 Rx Sodium Bicarbonate Tab 650 mg PO BID #60 tab 04/13/18 06/14/18 Rx Potassium Chloride ER [K-Dur 10] 10 meq PO DAILY 06/02/18 06/14/18 History Furosemide [Lasix] 40 mg PO BID 06/14/18 06/14/18 History Metoprolol Tartrate [Lopressor] 25 mg PO TID 06/14/18 06/14/18 History Allergies Allergy/AdvReac Type Severity Reaction Status Date / Time atorvastatin calcium Allergy Unknown Verified 06/14/18 12:59 [From Lipitor] codeine Allergy Unknown Verified 06/14/18 12:59 [From Tylenol-Codeine #3] hydrocodone Allergy Vomiting Verified 06/14/18 12:59 Physical Exam Vitals: Vital Signs Temp Pulse Pulse Pulse Resp BP BP 06/15/18 03:47 97.6 F 114 H 114 H 16 110/68 06/15/18 00:00 97.8 F 118 H 118 H 16 132/98 06/14/18 20:00 97.4 F L 106 H 18 113/74 06/14/18 19:00 102 H 17 116/74 06/14/18 18:00 115 H 18 106/88 06/14/18 17:00 106 H 17 106/88 06/14/18 16:01 105 H 18 106/88 06/14/18 15:00 117 H 18 106/88 06/14/18 14:00 98 18 106/88 06/14/18 13:30 105 H 18 113/82 06/14/18 12:11 98 16 117/87 Pulse Ox 06/15/18 03:47 97 06/15/18 00:00 94 L 06/14/18 20:00 98 06/14/18 19:00 06/14/18 18:00 06/14/18 17:00 96 06/14/18 16:01 78 L 06/14/18 15:00 06/14/18 14:00 06/14/18 13:30 20 L 06/14/18 12:11 99 Intake and Output 06/14/18 06/15/18 06/15/18 22:59 06:59 14:59 Intake Total 100 240 Output Total 150 Balance -50 240 Intake: Oral 100 240 Output: Urine 150 Uretheral (Erickson) 100 Other: # Voids 1 Weight 82.1 kg 82.2 kg Results - Lab Results Most recent lab results Calcium 10.0 mg/dL (8.4-10.2) 06/15/18 05:56 Magnesium 2.5 mg/dL (1.6-2.3) H 06/14/18 16:38 06/15/18 05:56 06/15/18 05:56 Assessment and Plan Plan: Assessment: 1. Nonoliguric acute kidney injury secondary to ATN secondary to prerenal syndrome. Creatinine up to 3.83 today. Also component of urinary retention. 2. Urinary retention status post Erickson catheter placement. 3. Hyperkalemia secondary to acute kidney injury and metabolic acidosis. Better. 4. Metabolic acidosis secondary to acute kidney injury. 5. Fluid overload. 6. Systolic CHF with ejection fraction of 40-45% with severe mitral regurgitation. 7. Chronic kidney disease stage IV secondary to cardiorenal syndrome. Recently creatinine has been in the range of 2-2.5. Plan: I will change Lasix to 80 mg IV twice daily. 1500 mL fluid restriction. Maintain Erickson catheter. Increase dose of oral sodium bicarbonate. 10 units of IV insulin with an amp of D50 now. Low potassium diet. Repeat potassium level this evening. Repeat electrolytes in the morning. Thank you for the consultation. I will continue to follow the patient with you during her hospital stay.
--- NOTE | 2018-06-15 09:29 | CONS ---
CONSULTATION Mrs. Carrillo is an 83-year-old female who was just discharged from the hospital, who presented with nausea and vomiting and was noted to be hyperkalemic. She had worsening dyspnea as well as peripheral edema. The patient has a known history of chronic persistent atrial fibrillation, history of chronic kidney disease who presented about a week ago with symptoms of progressive dyspnea. Her ejection fraction has been in the 45% and she had moderate to severe mitral regurgitation in the past. After going home, she started to complain of progressive dyspnea and had the worsening peripheral edema. She was nauseated and because of that came into the emergency room. She has gained weight since her discharge. She has no significant chest pain. She has no dizziness or palpitation. No syncope. Her coronary risk factors are remarkable for hyperlipidemia, hypertension and diabetes. MEDICATIONS: Her medications at the time of admission included tramadol, Xarelto 10 mg daily, potassium, omeprazole, midodrine, metoprolol tartrate 25 mg 3 times a day, Tradjenta, isosorbide mononitrate 60 mg daily, Lasix 40 mg twice a day, allopurinol. REVIEW OF SYSTEMS: RESPIRATORY SYSTEM: She has dyspnea on exertion. She has . GI SYSTEM: No recent GI bleeding. No peptic ulcer disease. SYSTEM: No dysuria or hematuria. NERVOUS SYSTEM: No seizure. PHYSICAL EXAMINATION: She is an 83-year-old female, alert, oriented, in no apparent distress. Blood pressure 110/60 with the heart rate in the low 100s. HEAD: Normocephalic. EYES: Sclerae anicteric. NECK: With increased jugular venous pressure. LUNGS: With minimal crackles at the bases. HEART: Irregular, irregular. S1, S2. No S3 with a holosystolic murmur at the apex. No diastolic murmur. No rub. ABDOMEN: Soft, nontender. EXTREMITIES: +2 to 3 edema. LAB DATA: Lab data revealed on presentation her BUN and creatinine at 73 and 3.72. Her potassium was up to 6.3. Her NT proBNP was 26,300. Her potassium today is down to 5.9. Hemoglobin is 13.7, white blood cell of 8.6. EKG revealed atrial fibrillation with a rapid ventricular response and nonspecific ST-T wave changes. IMPRESSION: 1. Worsening congestive heart failure in a patient with known history of systolic dysfunction with acute on chronic. 2. History of chronic persistent atrial fibrillation. 3. Hyperkalemia. 4. Chronic kidney disease. 5. History of hypertension. 6. History of diabetes mellitus. RECOMMENDATION: Her potassium supplement is on hold. She will receive IV diuretics. We will follow her renal function closely. We will obtain a consultation from the nephrology service. We will follow her blood pressure and adjust her dose of beta vilma accordingly. Unfortunately, the prognosis is guarded. MMODL / IJN: [id number] /
[2018-06-15] MEDS: VIT A,C & E-LUTEIN-MINERALS 1 EACH TAB PO SCH ×2 (10:29→21:15)
[2018-06-15] MEDS: CHOLECALCIFEROL 1,000 UNIT TAB PO SCH (10:29)
[2018-06-15] MEDS: LINAGLIPTIN 5 MG TABLET PO SCH (10:29)
[2018-06-15] MEDS: ISOSORBIDE MONONITRATE ER 60 MG TAB.ER.24H PO SCH (10:30)
[2018-06-15] MEDS: DOCUSATE 100 MG CAP PO SCH ×2 (10:30→21:13)
[2018-06-15] MEDS: RIVAROXABAN 10 MG TAB PO SCH (10:30)
[2018-06-15] MEDS: MIDODRINE 5 MG TAB PO SCH ×3 (10:30→21:16)
[2018-06-15] MEDS: ALLOPURINOL 100 MG TAB PO SCH (10:30)
[2018-06-15] MEDS: FERROUS SULFATE 325 MG TAB PO SCH (10:30)
[2018-06-15] MEDS: traMADol 50 MG TAB PO SCH ×3 (10:31→21:15)
[2018-06-15] MEDS: PSYLLIUM HUSK 100% 6 GM PACKET PO SCH ×2 (10:32→21:14)
[2018-06-15] MEDS: AMMONIUM LACTATE 12% CREAM 140 GM TUBE TOPICAL SCH ×2 (10:35→21:13)
[2018-06-15] MEDS: BRIMONIDINE TARTRATE 0.2% DROPS 5 ML BTL BOTH EYES SCH ×2 (10:36→21:15)
[2018-06-15] MEDS: DORZOLAMIDE HCL 2% DROPS 10 ML BTL BOTH EYES SCH ×2 (10:36→21:15)
[2018-06-15] MEDS: METOPROLOL TARTRATE 25 MG TAB PO SCH ×2 (10:44→16:47)
[2018-06-15] MEDS ORDERED: ALBUTEROL NEBULIZED 2.5 MG/3 ML INHALATION PRN (11:21)
--- NOTE | 2018-06-15 11:26 | P.CNPUL ---
History of Present Illness Consult date: 06/15/18 Requesting physician: Elyse Owen Reason for consult: dyspnea Chief complaint: shortness of breath History of present illness: This is an 83-year-old female patient being seen examined and evaluated on rounds while covering for Dr. Wellington. This patient came into the emergency room with her daughters after having difficulty in breathing, weakness and fatigue had been increasing over the last week or so. She also was noted to have some increased bilateral lower extremity edema examined her abdomen as well. The daughter also stated she has been gaining weight. She did see her family doctor about a weeks ago and was started on Lasix. She does have shortness of breath cough and congestion with clear sputum. She was admitted for further evaluation and treatment. Upon examination the patient is resting up in bed on room air. She appears quite tired and does get some slight exertional and conversational dyspnea. The patient was noted to have a potassium of 6.3 on admission and this morning and is 5.9. She also was having some post void residuals that were high therefore a Erickson catheter was in placed. Nephrology and cardiology were put on consult. She has a history of systolic CHF with an EF of 40-45% and severe mitral regurg. She is known to have acute on chronic kidney disease stage IV. Currently she is afebrile, hemodynamically stable. She does not utilize home oxygen, takes nebulizer treatments only as needed at home, no MDIs. No history of JUANY. Of note patient was hospitalized last month and was noted to have a small right pleural effusion, too small for any thoracentesis and she was diuresed with that. Her current chest x-ray shows no significant change from prior chest x-ray, pleural effusion still too small for thoracentesis. Review of Systems 14 point review of systems was completed and is negative unless noted above in HPI Past Medical History Past Medical History: Atrial Fibrillation, Coronary Artery Disease (CAD), Cancer , Heart Failure, Diabetes Mellitus, Deep Vein Thrombosis (DVT), Eye Disorder, GERD/Reflux, Hypertension, Renal Disease Additional Past Medical History / Comment(s): Macular Degeneration and gluacoma , gallstones, stage 3 kidney failure, hx Uterine & groin CA; WEARS BILAT THIGH HIGH HOSE, uses cane or walker, patient states she has "2 blood clots in right groin since 2003" family states now clot is "through the whole leg" CHF, History of Any Multi-Drug Resistant Organisms: ESBL, VRE Date of last positivie culture/infection: 02/15/18 ESBL E.Coli; 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 left hip replacement, rt breast biopsy, darcy filter rt leg, biopsy of right nostril Past Anesthesia/Blood Transfusion Reactions: No Reported Reaction Past Psychological History: No Psychological Hx Reported Smoking Status: Former smoker Past Alcohol Use History: None Reported Additional Past Alcohol Use History / Comment(s): smoked 1 pkg from 1961 to 1971 Past Drug Use History: None Reported - Past Family History Mother Family Medical History: No Reported History Additional Family Medical History / Comment(s): Family states pt's mother " of pneumonia". Father Family Medical History: Diabetes Mellitus Medications and Allergies Home Medications Medication Instructions Recorded Confirmed Type Allopurinol [Zyloprim] 200 mg PO DAILY 01/22/14 06/14/18 History Linagliptin [Tradjenta] 5 mg PO DAILY 01/22/14 06/14/18 History Omeprazole [PriLOSEC] 20 mg PO DAILY@0700 01/22/14 06/14/18 History Docusate Sodium [Stool Softener] 100 mg PO BID 02/22/14 06/14/18 History Garlic 1 tab PO BID 02/22/14 06/14/18 History Calcitriol 0.25 mcg PO SUTUTHSA 08/22/14 06/14/18 History traMADol HCL [Ultram] 50 mg PO TID 01/13/16 06/14/18 History Brinzolamide/Brimonidine Tart 1 drop BOTH EYES BID 05/11/17 06/14/18 History [Simbrinza 1%-0.2% Eye Drops] Vit C/E/Zn/Coppr/Lutein/Zeaxan 1 cap PO BID 12/03/17 06/14/18 History [Preservision Areds 2 Softgel] Ferrous Sulfate [Feosol] 325 mg PO DAILY 01/11/18 06/14/18 History Ammonium Lactate Cream [Lac-Hydrin 1 applic TOPICAL BID 02/10/18 06/14/18 History 12% Cream] Cholecalciferol (Vitamin D3) 2,000 unit PO DAILY 02/10/18 06/14/18 History [Vitamin D3] Isosorbide Mononitrate ER [Imdur] 60 mg PO DAILY 02/10/18 06/14/18 History Wheat Dextrin [Benefiber] 1 packet PO BID 02/10/18 06/14/18 History Midodrine [ProAmatine] 5 mg PO TID 04/10/18 06/14/18 History Rivaroxaban [Xarelto] 10 mg PO DAILY 04/10/18 06/14/18 History Potassium Chloride ER [K-Dur 20] 20 meq PO DAILY #30 tab 04/13/18 06/14/18 Rx Sodium Bicarbonate Tab 650 mg PO BID #60 tab 04/13/18 06/14/18 Rx Potassium Chloride ER [K-Dur 10] 10 meq PO DAILY 06/02/18 06/14/18 History Furosemide [Lasix] 40 mg PO BID 06/14/18 06/14/18 History Metoprolol Tartrate [Lopressor] 2 tab PO BID 06/14/18 06/15/18 History Metoprolol Tartrate [Lopressor] 1 tab PO PC-LUNCH 06/15/18 06/15/18 History Allergies Allergy/AdvReac Type Severity Reaction Status Date / Time atorvastatin calcium Allergy Unknown Verified 06/14/18 12:59 [From Lipitor] codeine Allergy Unknown Verified 06/14/18 12:59 [From Tylenol-Codeine #3] hydrocodone Allergy Vomiting Verified 06/14/18 12:59 Physical Exam Vitals: Vital Signs Temp Pulse Pulse Pulse Resp BP BP 06/15/18 03:47 97.6 F 114 H 114 H 16 110/68 06/15/18 00:00 97.8 F 118 H 118 H 16 132/98 06/14/18 20:00 97.4 F L 106 H 18 113/74 06/14/18 19:00 102 H 17 116/74 06/14/18 18:00 115 H 18 106/88 06/14/18 17:00 106 H 17 106/88 06/14/18 16:01 105 H 18 106/88 06/14/18 15:00 117 H 18 106/88 06/14/18 14:00 98 18 106/88 06/14/18 13:30 105 H 18 113/82 06/14/18 12:11 98 16 117/87 Pulse Ox 06/15/18 03:47 97 06/15/18 00:00 94 L 06/14/18 20:00 98 06/14/18 19:00 06/14/18 18:00 06/14/18 17:00 96 06/14/18 16:01 78 L 06/14/18 15:00 06/14/18 14:00 06/14/18 13:30 20 L 06/14/18 12:11 99 Intake and Output 06/14/18 06/15/18 06/15/18 22:59 06:59 14:59 Intake Total 100 240 Output Total 150 Balance -50 240 Intake: Oral 100 240 Output: Urine 150 Uretheral (Erickson) 100 Other: # Voids 1 Weight 82.1 kg 82.2 kg GENERAL EXAM: Alert, tired, comfortable in no apparent distress. HEAD: Normocephalic. EYES: Normal reaction of pupils, equal size. NOSE: Clear with pink turbinates. THROAT: No erythema or exudates. NECK: No masses, no JVD. CHEST: No chest wall deformity. LUNGS: Equal air entry with no crackles, wheeze, rhonchi or dullness. CVS: S1 and S2 normal with no audible mumurs, regular rhythm. ABDOMEN: No hepatosplenomegaly, normal bowel sounds, no guarding or rigidity. EXTREMITIES: No edema noted, pedal pulses palpable. CENTRAL NERVOUS SYSTEM: No focal deficits, tone is normal in all 4 extremities. Results - Laboratory Findings CBC and BMP: 06/15/18 05:56 06/15/18 05:56 PT/INR, D-dimer PT 17.6 sec (9.0-12.0) H 06/14/18 15:23 INR 1.9 (<1.2) H 06/14/18 15:23 D-Dimer 6.04 mg/L FEU (<0.60) H 06/14/18 15:23 Abnormal lab findings: Abnormal Labs 06/14/18 06/14/18 06/14/18 15:23 15:23 15:23 RBC Hct 48.2 H MCV 118.9 H MCH MCHC 29.2 L RDW 18.1 H Neutrophils # (Manual) 7.74 H Nucleated RBCs 2 H PT 17.6 H INR 1.9 H APTT 40.7 H D-Dimer 6.04 H Sodium Potassium Carbon Dioxide BUN Creatinine Glucose Magnesium Total Bilirubin AST ALT Total Creatine Kinase 26 L 06/14/18 06/15/18 06/15/18 16:38 05:56 05:56 RBC 3.70 L Hct MCV 117.7 H MCH 37.1 H MCHC RDW 17.6 H Neutrophils # (Manual) Nucleated RBCs PT INR APTT D-Dimer Sodium 136 L Potassium 6.3 H* 5.9 H Carbon Dioxide 21 L 20 L BUN 73 H 75 H Creatinine 3.72 H 3.83 H Glucose 103 H Magnesium 2.5 H Total Bilirubin 2.3 H AST 70 H ALT 63 H Total Creatine Kinase - Diagnostic Findings Chest x-ray: report reviewed, image reviewed Assessment and Plan Assessment: Assessment Acute exacerbation of systolic CHF Small right pleural effusion Severe mitral regurg Urinary retention Hyperkalemia Metabolic acidosis secondary to acute kidney injury Dyspnea related to Fluid overload Acute on chronic kidney disease stage IV History of chronic mild intermittent asthma, monitored off of therapy currently Chronic gout Plan Medications have been reviewed and will be continued as ordered. No plans for thoracentesis at this time, gentle diuresis advised Continue with pulmonary hygiene, coughing and deep breathing exercises, and supportive care. Supplemental oxygen to maintain oxygen saturations of 92% or better. Continue to monitor electrolytes Continue nebulizer treatments as needed. GI and DVT prophylaxis. We will continue to monitor labs/results and adjust treatment as necessary. Further recommendations pending. Thank you for this consultation we will continue to follow this patient with you Of note we are covering for Dr. Wellington. I, the signing physician performed an examination of the patient, discussed and directed their management with the nurse practitioner. I have reviewed the nurse practitioner's note and agree with the documented findings, orders and plan of care.
[2018-06-15 11:55] LABS: Glucose,Whole Blood 110 mg/dL (75-99)
[2018-06-15] MEDS: FUROSEMIDE 10 MG/ML 10 ML VIAL IV SCH ×2 (11:59→21:13)
[2018-06-15] MEDS: SODIUM BICARBONATE TAB 650 MG TAB PO SCH ×2 (11:59→21:14)
--- NOTE | 2018-06-15 13:10 | P.HPIM ---
History of Present Illness H&P Date: 06/15/18 Chief Complaint: Shortness of breath and lower extremity edema This is a 83-year-old female with a known past medical history of congestive heart failure with a known EF of 40-45%, diabetes mellitus, chronic kidney disease, uterine cancer status post hysterectomy, DVT with Darcy filter, chronic atrial fibrillation anticoagulated with Xarelto. Patient presents to the emergency room with complaints of worsening shortness of breath and lower extremity edema. She was just recently discharged from [facility] on June 07 at that time had been treated for an acute CHF exacerbation. She was discharged on torsemide 10 mg twice a day. She went to see her PCP, Dr. Nathan on Monday and the torsemide was changed to Lasix to 40 mg twice a day. However patient's symptoms continued to worsen she's had about a 5 pound weight Gain over the last week. Also had elevated potassium of 6.3 on admission. Creatinine is also elevated at 3.71 and his increased to 3.83. Consulted been placed for cardiology, nephrology and pulmonary service. Nephrology has increased the Lasix to 80 mg IV every 12 hours. Patient is still short of breath evidence of lower extremity edema and fatigued. She denies any fever, chills, sweats. Denies any chest pain. Denies any nausea vomiting bowel movement changes. She also had evidence of urinary retention and Erickson catheter inserted in the ER. Patient being treated for an acute CHF exacerbation. BNP was elevated at 26,300 on admission chest x-ray shows a small right pleural effusion and cardiomyopathy. EKG had shown atrial fibrillation with a heart rate of 111 Review of Systems Please refer to HPI otherwise unremarkable Past Medical History Past Medical History: Atrial Fibrillation, Coronary Artery Disease (CAD), Cancer , Heart Failure, Diabetes Mellitus, Deep Vein Thrombosis (DVT), Eye Disorder, GERD/Reflux, Hypertension, Renal Disease Additional Past Medical History / Comment(s): Macular Degeneration and gluacoma , gallstones, stage 3 kidney failure, hx Uterine & groin CA; WEARS BILAT THIGH HIGH HOSE, uses cane or walker, patient states she has "2 blood clots in right groin since 2003" family states now clot is "through the whole leg" CHF, History of Any Multi-Drug Resistant Organisms: ESBL, VRE Date of last positivie culture/infection: 02/15/18 ESBL E.Coli; 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 left hip replacement, rt breast biopsy, darcy filter rt leg, biopsy of right nostril Past Anesthesia/Blood Transfusion Reactions: No Reported Reaction Past Psychological History: No Psychological Hx Reported Smoking Status: Former smoker Past Alcohol Use History: None Reported Additional Past Alcohol Use History / Comment(s): smoked 1 pkg from 1961 to 1971 Past Drug Use History: None Reported - Past Family History Mother Family Medical History: No Reported History Additional Family Medical History / Comment(s): Family states pt's mother " of pneumonia". Father Family Medical History: Diabetes Mellitus Medications and Allergies Home Medications Medication Instructions Recorded Confirmed Type Allopurinol [Zyloprim] 200 mg PO DAILY 01/22/14 06/14/18 History Linagliptin [Tradjenta] 5 mg PO DAILY 01/22/14 06/14/18 History Omeprazole [PriLOSEC] 20 mg PO DAILY@0700 01/22/14 06/14/18 History Docusate Sodium [Stool Softener] 100 mg PO BID 02/22/14 06/14/18 History Garlic 1 tab PO BID 02/22/14 06/14/18 History Calcitriol 0.25 mcg PO SUTUTHSA 08/22/14 06/14/18 History traMADol HCL [Ultram] 50 mg PO TID 01/13/16 06/14/18 History Brinzolamide/Brimonidine Tart 1 drop BOTH EYES BID 05/11/17 06/14/18 History [Simbrinza 1%-0.2% Eye Drops] Vit C/E/Zn/Coppr/Lutein/Zeaxan 1 cap PO BID 12/03/17 06/14/18 History [Preservision Areds 2 Softgel] Ferrous Sulfate [Feosol] 325 mg PO DAILY 01/11/18 06/14/18 History Ammonium Lactate Cream [Lac-Hydrin 1 applic TOPICAL BID 02/10/18 06/14/18 History 12% Cream] Cholecalciferol (Vitamin D3) 2,000 unit PO DAILY 02/10/18 06/14/18 History [Vitamin D3] Isosorbide Mononitrate ER [Imdur] 60 mg PO DAILY 02/10/18 06/14/18 History Wheat Dextrin [Benefiber] 1 packet PO BID 02/10/18 06/14/18 History Midodrine [ProAmatine] 5 mg PO TID 04/10/18 06/14/18 History Rivaroxaban [Xarelto] 10 mg PO DAILY 04/10/18 06/14/18 History Potassium Chloride ER [K-Dur 20] 20 meq PO DAILY #30 tab 04/13/18 06/14/18 Rx Sodium Bicarbonate Tab 650 mg PO BID #60 tab 04/13/18 06/14/18 Rx Potassium Chloride ER [K-Dur 10] 10 meq PO DAILY 06/02/18 06/14/18 History Furosemide [Lasix] 40 mg PO BID 06/14/18 06/15/18 History Metoprolol Tartrate [Lopressor] 2 tab PO BID 06/14/18 06/15/18 History Metoprolol Tartrate [Lopressor] 1 tab PO PC-LUNCH 06/15/18 06/15/18 History Allergies Allergy/AdvReac Type Severity Reaction Status Date / Time atorvastatin calcium Allergy Unknown Verified 06/14/18 12:59 [From Lipitor] codeine Allergy Unknown Verified 06/14/18 12:59 [From Tylenol-Codeine #3] hydrocodone Allergy Vomiting Verified 06/14/18 12:59 Physical Exam Vitals: Vital Signs Temp Pulse Pulse Pulse Resp BP BP 06/15/18 03:47 97.6 F 114 H 114 H 16 110/68 06/15/18 00:00 97.8 F 118 H 118 H 16 132/98 06/14/18 20:00 97.4 F L 106 H 18 113/74 06/14/18 19:00 102 H 17 116/74 06/14/18 18:00 115 H 18 106/88 06/14/18 17:00 106 H 17 106/88 06/14/18 16:01 105 H 18 106/88 06/14/18 15:00 117 H 18 106/88 06/14/18 14:00 98 18 106/88 06/14/18 13:30 105 H 18 113/82 Pulse Ox 06/15/18 03:47 97 06/15/18 00:00 94 L 06/14/18 20:00 98 06/14/18 19:00 06/14/18 18:00 06/14/18 17:00 96 06/14/18 16:01 78 L 06/14/18 15:00 06/14/18 14:00 06/14/18 13:30 20 L Intake and Output 06/14/18 06/15/18 06/15/18 22:59 06:59 14:59 Intake Total 100 240 Output Total 150 Balance -50 240 Intake: Oral 100 240 Output: Urine 150 Uretheral (Erickson) 100 Other: # Voids 1 Weight 82.1 kg 82.2 kg Head normocephalic Neck supple Lungs crackles at the bases Heart irregular. A. fib on monitor Abdomen is soft nontender nondistended positive bowel sounds no hepatosplenomegaly. Under the abdominal skin fold evidence of disease to severe enough that there is scabbing and tender with palpation Extremities +2 bilateral lower extremity edema Neuro alert and orientated to 3 Results CBC & Chem 7: 06/15/18 05:56 06/15/18 05:56 Labs: Abnormal Lab Results - Last 24 Hours (Table) 06/14/18 06/14/18 06/14/18 Range/Units 15:23 15:23 15:23 RBC (3.80-5.40) m/uL Hct 48.2 H (34.0-46.0) % MCV 118.9 H (80.0-100.0) fL MCH (25.0-35.0) pg MCHC 29.2 L (31.0-37.0) g/dL RDW 18.1 H (11.5-15.5) % Neutrophils # (Manual) 7.74 H (1.3-7.7) k/uL Nucleated RBCs 2 H (0-0) /100 WBC PT 17.6 H (9.0-12.0) sec INR 1.9 H (<1.2) APTT 40.7 H (22.0-30.0) sec D-Dimer 6.04 H (<0.60) mg/L FEU Sodium (137-145) mmol/L Potassium (3.5-5.1) mmol/L Carbon Dioxide (22-30) mmol/L BUN (7-17) mg/dL Creatinine (0.52-1.04) mg/dL Glucose (74-99) mg/dL POC Glucose (mg/dL) (75-99) mg/dL Magnesium (1.6-2.3) mg/dL Total Bilirubin (0.2-1.3) mg/dL AST (14-36) U/L ALT (9-52) U/L Total Creatine Kinase 26 L (30-135) U/L 06/14/18 06/15/18 06/15/18 Range/Units 16:38 05:56 05:56 RBC 3.70 L (3.80-5.40) m/uL Hct (34.0-46.0) % MCV 117.7 H (80.0-100.0) fL MCH 37.1 H (25.0-35.0) pg MCHC (31.0-37.0) g/dL RDW 17.6 H (11.5-15.5) % Neutrophils # (Manual) (1.3-7.7) k/uL Nucleated RBCs (0-0) /100 WBC PT (9.0-12.0) sec INR (<1.2) APTT (22.0-30.0) sec D-Dimer (<0.60) mg/L FEU Sodium 136 L (137-145) mmol/L Potassium 6.3 H* 5.9 H (3.5-5.1) mmol/L Carbon Dioxide 21 L 20 L (22-30) mmol/L BUN 73 H 75 H (7-17) mg/dL Creatinine 3.72 H 3.83 H (0.52-1.04) mg/dL Glucose 103 H (74-99) mg/dL POC Glucose (mg/dL) (75-99) mg/dL Magnesium 2.5 H (1.6-2.3) mg/dL Total Bilirubin 2.3 H (0.2-1.3) mg/dL AST 70 H (14-36) U/L ALT 63 H (9-52) U/L Total Creatine Kinase (30-135) U/L 06/15/18 Range/Units 11:53 RBC (3.80-5.40) m/uL Hct (34.0-46.0) % MCV (80.0-100.0) fL MCH (25.0-35.0) pg MCHC (31.0-37.0) g/dL RDW (11.5-15.5) % Neutrophils # (Manual) (1.3-7.7) k/uL Nucleated RBCs (0-0) /100 WBC PT (9.0-12.0) sec INR (<1.2) APTT (22.0-30.0) sec D-Dimer (<0.60) mg/L FEU Sodium (137-145) mmol/L Potassium (3.5-5.1) mmol/L Carbon Dioxide (22-30) mmol/L BUN (7-17) mg/dL Creatinine (0.52-1.04) mg/dL Glucose (74-99) mg/dL POC Glucose (mg/dL) 110 H (75-99) mg/dL Magnesium (1.6-2.3) mg/dL Total Bilirubin (0.2-1.3) mg/dL AST (14-36) U/L ALT (9-52) U/L Total Creatine Kinase (30-135) U/L Thrombosis Risk Factor Assmnt - Choose All That Apply Any of the Below Risk Factors Present?: Yes Each Factor Represents 1 point: Abnormal pulmonary function (COPD), Heart failure (<1month), Swollen legs (current) Other Risk Factors: Yes Each Risk Factor Represents 3 Points: Age 75 years or older, History of DVT/PE Thrombosis Risk Factor Assessment Total Risk Factor Score: 9 Thrombosis Risk Factor Assessment Level: High Risk Assessment and Plan Assessment: 1. Acute on chronic systolic CHF exacerbation: Patient is currently on IV Lasix 80 mg every 12 hours. Cardiology and nephrology are following. Echo from November showed an EF of 40-45% with moderate to severe mitral regurgitation. Continue to monitor daily weights and I's and O's 2. Acute kidney injury secondary to ATN due to prerenal syndrome and urinary retention. Creatinine up to 3.83 today. Nephrology following 3. Urinary retention status post Erickson catheter placement 4. Hyperkalemia secondary to acute kidney injury and metabolic acidosis. Potassium 5.9. Nephrology is ordered 10 units of insulin and an amp of D50. Continue to monitor potassium level 5. Metabolic acidosis secondary to acute kidney injury. Nephrology has adjusted the sodium bicarbonate dosage 6. History of severe mitral regurgitation 7. Chronic kidney disease stage IV secondary to cardiorenal syndrome. Nephrology following. 8. Chronic persistent atrial fibrillation anticoagulated with Xarelto 9. Diabetes mellitus type 2 continue the tradjenta. Add sliding scale coverage 10. Candidiasis of the abdominal fold. Add nystatin cream 3 times a day 11. Elevated LFTs likely related to fluid congestion. She had been evaluated by surgical service on last admission due to history of gallstone and elevated total bilirubin. No surgical intervention required at that time. Patient denies any right upper quadrant abdominal pain or nausea. We will monitor 12. Hypermagnesemia: Follow-up on repeat magnesium level GI prophylaxis Protonix and DVT prophylaxis Xarelto Time with Patient: Greater than 30 (Greater than 60% of the total time spent in counseling and coordination of care.I performed an examination of the patient and discussed their management with the physician Tool And Die Maker Apprentice. I have reviewed the Physician Tool And Die Maker Apprentice's notes and agree with the documented findings and plan of care)
[2018-06-15] MEDS: NYSTATIN 100,000UNIT/GM CREAM 30 GM TUBE TOPICAL SCH ×3 (16:47→21:16)
[2018-06-15 16:57] LABS: Glucose,Whole Blood 113 mg/dL (75-99)
[2018-06-15] MEDS: INSULIN ASPART 100 UNIT/ML 1 ML 10 ML VIAL SQ SCH ×2 (18:00→21:40)
[2018-06-15 21:00] LABS: Glucose,Whole Blood 130 mg/dL (75-99)
[2018-06-15] MEDS ORDERED: FUROSEMIDE 10 MG/ML 10 ML VIAL IV SCH (21:00)
[2018-06-15] MEDS: METOPROLOL TARTRATE 50 MG TAB PO SCH (21:14)
[2018-06-15 21:40] LABS: Glucose,Whole Blood 132 mg/dL (75-99)
[2018-06-15] MEDS: FUROSEMIDE 10 MG/ML 4 ML VIAL IV SCH (21:52)
[2018-06-16 05:49] LABS: Glucose,Whole Blood 99 mg/dL (75-99)
[2018-06-16] MEDS: INSULIN ASPART 100 UNIT/ML 1 ML 10 ML VIAL SQ SCH ×4 (05:51→20:49)
[2018-06-16 06:54] LABS: Anisocytosis Slight; Basophils % (A) 0 %; Eosinophils # (A) 0.1 k/uL (0-0.7); Eosinophils % (A) 2 %; HCT 38.4 % (34.0-46.0); HGB 11.8 gm/dL (11.4-16.0); Hypochromasia Moderate; Lymphocytes # (A) 1.1 k/uL (1.0-4.8); Lymphocytes % (A) 16 %; MCH 35.7 pg (25.0-35.0); MCHC 30.6 g/dL (31.0-37.0); MCV 116.6 fL (80.0-100.0); Mean Platelet Volume 8.3; Monocytes # (A) 0.4 k/uL (0-1.0); Monocytes % (A) 6 %; Neutrophils # (A) 4.8 k/uL (1.3-7.7); Neutrophils % (A) 73 %; Platelet Count 172 k/uL (150-450); RBC 3.29 m/uL (3.80-5.40); RDW 18.2 % (11.5-15.5); WBC 6.5 k/uL (3.8-10.6)
[2018-06-16 06:55] LABS: Macrocytosis Marked
[2018-06-16 07:01] LABS: Albumin 2.9 g/dL (3.5-5.0); Magnesium 2.4 mg/dL (1.6-2.3); Potassium 3.5 mmol/L (3.5-5.1); Total Bilirubin 1.9 mg/dL (0.2-1.3); Total Protein 5.5 g/dL (6.3-8.2)
[2018-06-16] MEDS: traMADol 50 MG TAB PO SCH ×3 (09:26→21:07)
[2018-06-16] MEDS: CALCITRIOL 0.25 MCG CAP PO SCH (09:26)
[2018-06-16] MEDS: METOPROLOL TARTRATE 50 MG TAB PO SCH ×2 (09:27→21:05)
[2018-06-16] MEDS: ISOSORBIDE MONONITRATE ER 60 MG TAB.ER.24H PO SCH (09:27)
[2018-06-16] MEDS: LINAGLIPTIN 5 MG TABLET PO SCH (09:27)
[2018-06-16] MEDS: MIDODRINE 5 MG TAB PO SCH ×3 (09:27→21:07)
[2018-06-16] MEDS: VIT A,C & E-LUTEIN-MINERALS 1 EACH TAB PO SCH ×2 (09:27→21:07)
[2018-06-16] MEDS: FERROUS SULFATE 325 MG TAB PO SCH (09:27)
[2018-06-16] MEDS: DOCUSATE 100 MG CAP PO SCH ×2 (09:27→21:00)
[2018-06-16] MEDS: CHOLECALCIFEROL 1,000 UNIT TAB PO SCH (09:27)
[2018-06-16] MEDS: RIVAROXABAN 10 MG TAB PO SCH (09:27)
[2018-06-16] MEDS: FUROSEMIDE 10 MG/ML 10 ML VIAL IV SCH ×2 (09:28→21:00)
[2018-06-16] MEDS: ALLOPURINOL 100 MG TAB PO SCH (09:28)
[2018-06-16] MEDS: SODIUM BICARBONATE TAB 650 MG TAB PO SCH ×2 (09:28→21:05)
[2018-06-16] MEDS: PSYLLIUM HUSK 100% 6 GM PACKET PO SCH ×3 (09:28→21:05)
[2018-06-16] MEDS: DORZOLAMIDE HCL 2% DROPS 10 ML BTL BOTH EYES SCH ×2 (09:29→20:59)
[2018-06-16] MEDS: AMMONIUM LACTATE 12% CREAM 140 GM TUBE TOPICAL SCH ×2 (09:29→20:59)
[2018-06-16] MEDS: BRIMONIDINE TARTRATE 0.2% DROPS 5 ML BTL BOTH EYES SCH ×2 (09:29→20:59)
[2018-06-16] MEDS: NYSTATIN 100,000UNIT/GM CREAM 30 GM TUBE TOPICAL SCH ×3 (09:30→21:07)
--- NOTE | 2018-06-16 10:06 | P.PN ---
Subjective Progress Note Date: 06/16/18 Principal diagnosis: This is a 83-year-old female followed up for acute kidney injury and chronic kidney disease. She has significant edema and is short of breath. With diuresis her breathing is improved but the edema remains. She also is weak and tired. She says her appetite is good. She has a Erickson catheter. Her urine output was 14 75 mL over the last 24 hours. This is on intravenous Lasix 80 twice a day She is also known with atrial fibrillation, coronary artery disease, congestive heart failure, DVT, and uses bilateral thigh-high hose is at home. Objective - Vital Signs Vital signs: Vital Signs Temp 98.1 F 06/16/18 03:54 Pulse 100 06/16/18 03:54 Resp 16 06/16/18 03:54 BP 127/66 06/16/18 03:54 Pulse Ox 98 06/16/18 03:54 Intake & Output 06/15/18 06/16/18 06/16/18 18:59 06:59 18:59 Intake Total 480 100 Output Total 600 875 Balance -120 -875 100 Weight 82.5 kg Intake: Oral 480 100 Output: Urine 600 875 Uretheral (Erickson) 100 Other: Voiding Method Indwelling Catheter Indwelling Catheter # Bowel Movements 0 1 On examination she is a anxious or ill-looking female HEENT exam JVP is up at her earlobes. No lymphadenopathy neck is supple no facial asymmetry Lungs are significant for an occasional fine crackle at bases improved with cough. Fairly good air entry no dullness percussion Heart sounds are remarkable for atrial fibrillation no murmur was heard Abdomen is soft slightly tender in both the upper quadrants. I could not feel a liver enlargement but it may be a soft liver enlargement Extremity exam was moderate edema Warm to touch Neurologically awake alert but generalized weakness - Labs CBC & Chem 7: 06/16/18 05:45 06/16/18 05:45 Labs: Abnormal Lab Results - Last 24 Hours (Table) 06/15/18 06/15/18 06/15/18 Range/Units 11:53 16:54 20:48 RBC (3.80-5.40) m/uL MCV (80.0-100.0) fL MCH (25.0-35.0) pg MCHC (31.0-37.0) g/dL RDW (11.5-15.5) % Sodium (137-145) mmol/L Carbon Dioxide (22-30) mmol/L BUN (7-17) mg/dL Creatinine (0.52-1.04) mg/dL POC Glucose (mg/dL) 110 H 113 H 130 H (75-99) mg/dL Magnesium (1.6-2.3) mg/dL Total Bilirubin (0.2-1.3) mg/dL AST (14-36) U/L ALT (9-52) U/L Total Protein (6.3-8.2) g/dL Albumin (3.5-5.0) g/dL 06/15/18 06/16/18 06/16/18 Range/Units 21:38 05:45 05:45 RBC 3.29 L (3.80-5.40) m/uL MCV 116.6 H (80.0-100.0) fL MCH 35.7 H (25.0-35.0) pg MCHC 30.6 L (31.0-37.0) g/dL RDW 18.2 H (11.5-15.5) % Sodium 136 L (137-145) mmol/L Carbon Dioxide 21 L (22-30) mmol/L BUN 74 H (7-17) mg/dL Creatinine 3.59 H (0.52-1.04) mg/dL POC Glucose (mg/dL) 132 H (75-99) mg/dL Magnesium 2.4 H (1.6-2.3) mg/dL Total Bilirubin 1.9 H (0.2-1.3) mg/dL AST 45 H (14-36) U/L ALT 59 H (9-52) U/L Total Protein 5.5 L (6.3-8.2) g/dL Albumin 2.9 L (3.5-5.0) g/dL Assessment and Plan Assessment: Impression 1. Acute kidney injury secondary to cardiorenal syndrome with significant edema slightly better shortness of breath but edema remains per patient. Creatinine is worsened since admission from 3.72-3.83 but this morning is slightly better 3.59. 2. Chronic kidney disease Baseline creatinine approximately 1.98-2.67 or the last 2 months and has been as high as 3.49 as of 12/18/2017. Accurate Baseline not available therefore. Etiology is nephrosclerosis 3. Urinary retention requiring Erickson catheter placement 4. Metabolic acidosis secondary to acute kidney injury 5. Significant edema slowly better. Ejection fraction 40-45% with mitral regurg based on echocardiogram November 2017 Recommendation 1. Maintain Lasix regimen IV 80 mg every 12. 2. Monitor labs and orthostatic changes. 3. Monitor acidosis currently bicarb is 21 adequate.
--- NOTE | 2018-06-16 10:23 | P.PN ---
Subjective Progress Note Date: 06/16/18 This is a 83-year-old female with a known past medical history of congestive heart failure with a known EF of 40-45%, diabetes mellitus, chronic kidney disease, uterine cancer status post hysterectomy, DVT with Toyin filter, chronic atrial fibrillation anticoagulated with Xarelto. Patient presents to the emergency room with complaints of worsening shortness of breath and lower extremity edema. She was just recently discharged from [facility] on June 07 at that time had been treated for an acute CHF exacerbation. She was discharged on torsemide 10 mg twice a day. She went to see her PCP, Dr. Nathan on Monday and the torsemide was changed to Lasix to 40 mg twice a day. However patient's symptoms continued to worsen she's had about a 5 pound weight Gain over the last week. Also had elevated potassium of 6.3 on admission. Creatinine is also elevated at 3.71 and his increased to 3.83. Consulted been placed for cardiology, nephrology and pulmonary service. Nephrology has increased the Lasix to 80 mg IV every 12 hours. Patient is still short of breath evidence of lower extremity edema and fatigued. She denies any fever, chills, sweats. Denies any chest pain. Denies any nausea vomiting bowel movement changes. She also had evidence of urinary retention and Erickson catheter inserted in the ER. Patient being treated for an acute CHF exacerbation. BNP was elevated at 26,300 on admission chest x-ray shows a small right pleural effusion and cardiomyopathy. EKG had shown atrial fibrillation with a heart rate of 111 On 06/16/2018 patient was seen and examined on the third telemetry floor she is alert and oriented 3 she is complaining of abdominal discomfort she is complaining of shortness of breath with some improvement since yesterday she is complaining of bilateral lower extremity edema otherwise she denies any complaints there is no fever or chills no headache or dizziness no chest pain no cough no nausea or vomiting no constipation or diarrhea and no urinary symptoms Erickson catheter is in. Objective - Vital Signs Vital signs: Vital Signs Temp 98.1 F 06/16/18 03:54 Pulse 100 06/16/18 03:54 Resp 16 06/16/18 03:54 BP 127/66 06/16/18 03:54 Pulse Ox 98 06/16/18 03:54 Intake & Output 06/15/18 06/16/18 06/16/18 18:59 06:59 18:59 Intake Total 480 100 Output Total 600 875 Balance -120 -875 100 Weight 82.5 kg Intake: Oral 480 100 Output: Urine 600 875 Uretheral (Erickson) 100 Other: Voiding Method Indwelling Catheter Indwelling Catheter # Bowel Movements 0 1 - Exam Head normocephalic and atraumatic Neck supple no JVD no goiter Lungs crackles at the bases Heart irregular. A. fib on monitor, no gallops no murmurs Abdomen is soft with mild diffuse tenderness no organomegaly no palpable masses no rigidity or rebound with positive bowel sounds Extremities +2 bilateral lower extremity edema Neuro alert and orientated to 3 no gross focal deficit - Labs CBC & Chem 7: 06/16/18 05:45 06/16/18 05:45 Labs: Abnormal Lab Results - Last 24 Hours (Table) 06/15/18 06/15/18 06/15/18 Range/Units 11:53 16:54 20:48 RBC (3.80-5.40) m/uL MCV (80.0-100.0) fL MCH (25.0-35.0) pg MCHC (31.0-37.0) g/dL RDW (11.5-15.5) % Sodium (137-145) mmol/L Carbon Dioxide (22-30) mmol/L BUN (7-17) mg/dL Creatinine (0.52-1.04) mg/dL POC Glucose (mg/dL) 110 H 113 H 130 H (75-99) mg/dL Magnesium (1.6-2.3) mg/dL Total Bilirubin (0.2-1.3) mg/dL AST (14-36) U/L ALT (9-52) U/L Total Protein (6.3-8.2) g/dL Albumin (3.5-5.0) g/dL 06/15/18 06/16/18 06/16/18 Range/Units 21:38 05:45 05:45 RBC 3.29 L (3.80-5.40) m/uL MCV 116.6 H (80.0-100.0) fL MCH 35.7 H (25.0-35.0) pg MCHC 30.6 L (31.0-37.0) g/dL RDW 18.2 H (11.5-15.5) % Sodium 136 L (137-145) mmol/L Carbon Dioxide 21 L (22-30) mmol/L BUN 74 H (7-17) mg/dL Creatinine 3.59 H (0.52-1.04) mg/dL POC Glucose (mg/dL) 132 H (75-99) mg/dL Magnesium 2.4 H (1.6-2.3) mg/dL Total Bilirubin 1.9 H (0.2-1.3) mg/dL AST 45 H (14-36) U/L ALT 59 H (9-52) U/L Total Protein 5.5 L (6.3-8.2) g/dL Albumin 2.9 L (3.5-5.0) g/dL Assessment and Plan Plan: 1. Acute on chronic systolic CHF exacerbation: Patient is currently on IV Lasix 80 mg every 12 hours. Cardiology and nephrology are following. Echo from November showed an EF of 40-45% with moderate to severe mitral regurgitation. Continue to monitor daily weights and I's and O's 2. Acute kidney injury secondary to ATN due to prerenal syndrome and urinary retention. Creatinine up to 3.83 today. Nephrology following 3. Urinary retention status post Erickson catheter placement 4. Hyperkalemia secondary to acute kidney injury and metabolic acidosis. Potassium 5.9. Nephrology is ordered 10 units of insulin and an amp of D50. Continue to monitor potassium level 5. Metabolic acidosis secondary to acute kidney injury. Nephrology has adjusted the sodium bicarbonate dosage 6. History of severe mitral regurgitation 7. Chronic kidney disease stage IV secondary to cardiorenal syndrome. Nephrology following. 8. Chronic persistent atrial fibrillation anticoagulated with Xarelto 9. Diabetes mellitus type 2 continue the tradjenta. Add sliding scale coverage 10. Candidiasis of the abdominal fold. Add nystatin cream 3 times a day 11. Elevated LFTs likely related to fluid congestion. She had been evaluated by surgical service on last admission due to history of gallstone and elevated total bilirubin. No surgical intervention required at that time. Patient denies any right upper quadrant abdominal pain or nausea. We will monitor 12. Hypermagnesemia: Follow-up on repeat magnesium level GI prophylaxis Protonix and DVT prophylaxis Xarelto
[2018-06-16 12:07] LABS: Glucose,Whole Blood 192 mg/dL (75-99)
[2018-06-16] MEDS: METOPROLOL TARTRATE 25 MG TAB PO SCH (12:38)
--- NOTE | 2018-06-16 15:55 | PN ---
PROGRESS NOTE She was seen on 06/16/2018. She has been hemodynamically stable and is less short of breath overall. On physical examination blood pressure is 127/66, respiratory rate of 16, pulse rate of 100, but goes up into the 120s, O2 saturation on 2 L by nasal cannula is 98%. HEENT is unremarkable. Chest reveals decreased breath sounds in the bases. Cardiovascular system reveals an S1, S2. Abdomen is soft. There is 1+ to 2+ pedal edema. IMPRESSION: At this time: 1. Congestive heart failure with acute exacerbation. 2. Acute kidney injury with acute tubular necrosis. 3. Chronic kidney disease. 4. Atrial fibrillation with rapid ventricular response. 5. Diabetes mellitus. 6. Obesity. Continue to optimize the fluid status, keep her negative fluid balance. I agree with current medications which were reviewed. Increase her activity level slowly. MMODL / IJN: [id number] /
[2018-06-16 16:33] LABS: Glucose,Whole Blood 150 mg/dL (75-99)
[2018-06-16 20:49] LABS: Glucose,Whole Blood 126 mg/dL (75-99)
[2018-06-16] MEDS: hydrALAZINE HCL 25 MG TAB PO SCH (21:05)
[2018-06-17] MEDS: INSULIN ASPART 100 UNIT/ML 1 ML 10 ML VIAL SQ SCH ×4 (06:02→21:17)
[2018-06-17 06:04] LABS: Glucose,Whole Blood 124 mg/dL (75-99)
[2018-06-17 06:18] LABS: Anisocytosis Slight; Basophils % (A) 0 %; Eosinophils # (A) 0.2 k/uL (0-0.7); Eosinophils % (A) 3 %; HCT 38.3 % (34.0-46.0); HGB 11.7 gm/dL (11.4-16.0); Hypochromasia Moderate; Lymphocytes # (A) 1.1 k/uL (1.0-4.8); Lymphocytes % (A) 18 %; MCH 35.6 pg (25.0-35.0); MCHC 30.4 g/dL (31.0-37.0); MCV 117.1 fL (80.0-100.0); Mean Platelet Volume 7.8; Monocytes # (A) 0.5 k/uL (0-1.0); Monocytes % (A) 8 %; Neutrophils # (A) 4.1 k/uL (1.3-7.7); Neutrophils % (A) 68 %; Platelet Count 163 k/uL (150-450); RBC 3.27 m/uL (3.80-5.40); WBC 6.1 k/uL (3.8-10.6)
[2018-06-17] MEDS: PANTOPRAZOLE 40 MG TABLET PO SCH (06:18)
[2018-06-17 06:19] LABS: Macrocytosis Marked
[2018-06-17 06:35] LABS: Potassium 3.4 mmol/L (3.5-5.1)
[2018-06-17 06:36] LABS: Albumin 3.1 g/dL (3.5-5.0); Calcium 8.9 mg/dL (8.4-10.2); Total Bilirubin 1.7 mg/dL (0.2-1.3); Total Protein 5.8 g/dL (6.3-8.2)
--- NOTE | 2018-06-17 08:03 | US ---
EXAMINATION TYPE: US abdomen complete DATE OF EXAM: 06/17/2018 COMPARISON: Previous study dated 06/05/2018 CLINICAL HISTORY: abdominal pain. Abdominal pain, history of gallstones EXAM MEASUREMENTS: Liver Length: 16.1 cm Gallbladder Wall: 0.7 cm CBD: 0.4 cm Spleen: 11.2 cm Right Kidney: 9.2 x 4.2 x 4.4 cm Left Kidney: 9.5 x 5.0 x 5.0 cm Technical limitations due to large amount of overlying bowel content Pancreas: limited evaluation due to overlying bowel, visualized portions appear heterogeneous Liver: appears wnl Gallbladder: multiple large stones, thickened edematous wall Evidence for sonographic Crawford's sign: no CBD: limited evaluation Spleen: granulomas noted Right Kidney: thin renal cortex Left Kidney: limited evaluation, thin renal cortex Upper IVC: wnl Abd Aorta: bifurcation obscured Small amount of free fluid RUQ adjacent to liver Right pleural effusion Limited views of the pancreas are unremarkable. The liver is normal in size without biliary dilatation. There are multiple gallstones within the gallbladder. Gallbladder wall is thickened measuring 7 mm. T he distal common hepatic duct measures 4 mm. There is no sonographic Crawford's sign. There is granulomatous change within the spleen. There are some questionable thinning of the renal cortices bilaterally. There is a scant amount of ascites. There is a small right effusion. IMPRESSION: 1. CHOLELITHIASIS AND POSSIBLE CHOLECYSTITIS. PLEASE CORRELATE CLINICALLY. 2. OLD GRANULOMATOUS CHANGES WITHIN THE SPLEEN. 3. SMALL AMOUNT OF ASCITES. 4. SMALL RIGHT-SIDED PLEURAL EFFUSION.
[2018-06-17] MEDS: FUROSEMIDE 10 MG/ML 10 ML VIAL IV SCH ×2 (10:29→20:21)
[2018-06-17] MEDS: DORZOLAMIDE HCL 2% DROPS 10 ML BTL BOTH EYES SCH ×2 (10:30→20:20)
[2018-06-17] MEDS: BRIMONIDINE TARTRATE 0.2% DROPS 5 ML BTL BOTH EYES SCH ×2 (10:30→20:20)
[2018-06-17] MEDS: SODIUM BICARBONATE TAB 650 MG TAB PO SCH ×2 (10:31→20:20)
[2018-06-17] MEDS: ALLOPURINOL 100 MG TAB PO SCH (10:31)
[2018-06-17] MEDS: hydrALAZINE HCL 25 MG TAB PO SCH ×2 (10:31→20:21)
[2018-06-17] MEDS: VIT A,C & E-LUTEIN-MINERALS 1 EACH TAB PO SCH ×2 (10:31→20:30)
[2018-06-17] MEDS: ISOSORBIDE MONONITRATE ER 30 MG TAB.ER.24H PO SCH (10:32)
[2018-06-17] MEDS: MIDODRINE 5 MG TAB PO SCH ×3 (10:32→20:21)
[2018-06-17] MEDS: traMADol 50 MG TAB PO SCH ×3 (10:32→20:21)
[2018-06-17] MEDS: METOPROLOL TARTRATE 50 MG TAB PO SCH ×2 (10:33→20:21)
[2018-06-17] MEDS: FERROUS SULFATE 325 MG TAB PO SCH (10:33)
[2018-06-17] MEDS: RIVAROXABAN 10 MG TAB PO SCH (10:33)
[2018-06-17] MEDS: LINAGLIPTIN 5 MG TABLET PO SCH (10:33)
[2018-06-17] MEDS: DOCUSATE 100 MG CAP PO SCH ×2 (10:33→20:20)
[2018-06-17] MEDS: NYSTATIN 100,000UNIT/GM CREAM 30 GM TUBE TOPICAL SCH ×3 (10:34→20:26)
[2018-06-17] MEDS: CHOLECALCIFEROL 1,000 UNIT TAB PO SCH (10:34)
[2018-06-17] MEDS: AMMONIUM LACTATE 12% CREAM 140 GM TUBE TOPICAL SCH ×2 (10:34→20:26)
[2018-06-17] MEDS: PSYLLIUM HUSK 100% 6 GM PACKET PO SCH ×2 (10:34→20:19)
--- NOTE | 2018-06-17 11:09 | P.PN ---
Subjective Progress Note Date: 06/17/18 Principal diagnosis: This is a 83-year-old female followed up for acute kidney injury and chronic kidney disease. She has significant edema and is short of breath. With diuresis her breathing is improved but the edema remains. She also is weak and tired. She says her appetite is good. She has a Erickson catheter. Her urine output was 2800 mL over the last 24 hours. This is on intravenous Lasix 80 twice a day She is also known with atrial fibrillation, coronary artery disease, congestive heart failure, DVT, and uses bilateral thigh-high hose is at home. Objective - Vital Signs Vital signs: Vital Signs Temp 98.0 F 06/17/18 07:35 Pulse 104 H 06/17/18 07:35 Resp 18 06/17/18 07:35 BP 122/70 06/17/18 07:35 Pulse Ox 97 06/17/18 07:35 Intake & Output 06/16/18 06/17/18 06/17/18 18:59 06:59 18:59 Intake Total 460 300 Output Total 1200 1600 Balance -740 -1600 300 Weight 78.5 kg Intake: Oral 460 300 Output: Urine 1200 1600 Other: Voiding Method Indwelling Catheter Indwelling Catheter Indwelling Catheter # Bowel Movements 1 1 On examination she is awake alert oriented sitting in a chair. HEENT exam JVP is elevated she has atrial fibrillation. Neck is supple no facial asymmetry Lungs are clear to auscultation with an occasional coarse basilar crackle good air entry bilaterally Her sounds are remarkable for atrial fibrillation but no murmur rub gallop Abdomen soft nontender except in the right upper quadrant may be barely so. Extremity exam was 1-2+ edema improving Neurologically awake alert oriented but generalized weakness difficulty walking. - Labs CBC & Chem 7: 06/17/18 05:36 06/17/18 05:36 Labs: Abnormal Lab Results - Last 24 Hours (Table) 06/16/18 06/16/18 06/16/18 Range/Units 12:04 16:32 20:47 RBC (3.80-5.40) m/uL MCV (80.0-100.0) fL MCH (25.0-35.0) pg MCHC (31.0-37.0) g/dL RDW (11.5-15.5) % Potassium (3.5-5.1) mmol/L BUN (7-17) mg/dL Creatinine (0.52-1.04) mg/dL Glucose (74-99) mg/dL POC Glucose (mg/dL) 192 H 150 H 126 H (75-99) mg/dL Total Bilirubin (0.2-1.3) mg/dL Total Protein (6.3-8.2) g/dL Albumin (3.5-5.0) g/dL 06/17/18 06/17/18 06/17/18 Range/Units 05:36 05:36 06:01 RBC 3.27 L (3.80-5.40) m/uL MCV 117.1 H (80.0-100.0) fL MCH 35.6 H (25.0-35.0) pg MCHC 30.4 L (31.0-37.0) g/dL RDW 18.0 H (11.5-15.5) % Potassium 3.4 L (3.5-5.1) mmol/L BUN 69 H (7-17) mg/dL Creatinine 3.13 H (0.52-1.04) mg/dL Glucose 126 H (74-99) mg/dL POC Glucose (mg/dL) 124 H (75-99) mg/dL Total Bilirubin 1.7 H (0.2-1.3) mg/dL Total Protein 5.8 L (6.3-8.2) g/dL Albumin 3.1 L (3.5-5.0) g/dL Assessment and Plan Assessment: Impression 1. Acute kidney injury secondary to cardiorenal syndrome with significant edema slightly better shortness of breath but edema remains per patient. Creatinine is worsened since admission from 3.72-3.83 but slowly improving to 3.59 and 3.13 this morning. 2. Chronic kidney disease Baseline creatinine approximately 1.98-2.67 or the last 2 months and has been as high as 3.49 as of 12/18/2017. Accurate Baseline not available therefore. Etiology is nephrosclerosis 3. Urinary retention requiring Erickson catheter placement 4. Metabolic acidosis secondary to acute kidney injury, improved to bicarb of 23 this morning 5. Significant edema slowly better. Ejection fraction 40-45% with mitral regurg based on echocardiogram November 2017. 6. Mild hypokalemia secondary to diuretics. Magnesium is 2.4 as of yesterday morning 06/16/20 18 Recommendation 1. Maintain Lasix regimen IV 80 mg every 12. 2. Monitor labs and orthostatic changes. 3. Monitor acidosis 4. Replace potassium with 40 mEq of KCl
[2018-06-17] MEDS: POTASSIUM CHLORIDE ER 20 MEQ TAB.ER PO SCH ×2 (11:34→13:40)
[2018-06-17] MEDS: CALCITRIOL 0.25 MCG CAP PO SCH (11:34)
--- NOTE | 2018-06-17 11:44 | PN ---
PROGRESS NOTE HISTORY: Mrs. Carrillo is an 83-year-old female who has been admitted with congestive cardiac failure. The patient has acute on chronic diastolic failure. She has evidence of moderate degree of mitral regurgitation. PHYSICAL EXAMINATION: The patient is doing fairly well. She is comfortable. Pulse is 100, blood pressure is 127/66 mmHg. First and second heart sounds are heard. Lungs are fairly clear to auscultation and percussion. LABS: Patient's BUN is 74 and the creatinine is 3.6. RECOMMENDATIONS: This patient is admitted with acute exacerbation of congestive cardiac failure. Patient is feeling better. Clinically patient is not significantly hypervolemic. We will continue the current medications. Patient also has a evidence of acute on chronic renal failure. We will start the patient on hydralazine 25 mg b.i.d. as well as Isordil once a day. EL / LUCI: [id number] /
[2018-06-17 11:47] LABS: Glucose,Whole Blood 148 mg/dL (75-99)
--- NOTE | 2018-06-17 12:14 | P.PN ---
Subjective Progress Note Date: 06/17/18 This is a 83-year-old female with a known past medical history of congestive heart failure with a known EF of 40-45%, diabetes mellitus, chronic kidney disease, uterine cancer status post hysterectomy, DVT with Toyin filter, chronic atrial fibrillation anticoagulated with Xarelto. Patient presents to the emergency room with complaints of worsening shortness of breath and lower extremity edema. She was just recently discharged from [facility] on June 07 at that time had been treated for an acute CHF exacerbation. She was discharged on torsemide 10 mg twice a day. She went to see her PCP, Dr. Nathan on Monday and the torsemide was changed to Lasix to 40 mg twice a day. However patient's symptoms continued to worsen she's had about a 5 pound weight Gain over the last week. Also had elevated potassium of 6.3 on admission. Creatinine is also elevated at 3.71 and his increased to 3.83. Consulted been placed for cardiology, nephrology and pulmonary service. Nephrology has increased the Lasix to 80 mg IV every 12 hours. Patient is still short of breath evidence of lower extremity edema and fatigued. She denies any fever, chills, sweats. Denies any chest pain. Denies any nausea vomiting bowel movement changes. She also had evidence of urinary retention and Erickson catheter inserted in the ER. Patient being treated for an acute CHF exacerbation. BNP was elevated at 26,300 on admission chest x-ray shows a small right pleural effusion and cardiomyopathy. EKG had shown atrial fibrillation with a heart rate of 111 On 06/16/2018 patient was seen and examined on the third telemetry floor she is alert and oriented 3 she is complaining of abdominal discomfort she is complaining of shortness of breath with some improvement since yesterday she is complaining of bilateral lower extremity edema otherwise she denies any complaints there is no fever or chills no headache or dizziness no chest pain no cough no nausea or vomiting no constipation or diarrhea and no urinary symptoms Erickson catheter is in. On 06/17/2018 patient is currently sitting up in chair alert and oriented 3. Patient states she is feeling improved from yesterday. Patient has tolerated breakfast today. Patient is still making good urine output after Erickson catheter. At this time patient denies chest pain or shortness of breath. Patient down from 82.5 kg to 78.5 kg. Patient remains on IV Lasix 80 mg every 12 hours Objective - Vital Signs Vital signs: Vital Signs Temp 98.0 F 06/17/18 07:35 Pulse 104 H 06/17/18 07:35 Resp 18 06/17/18 07:35 BP 122/70 06/17/18 07:35 Pulse Ox 97 06/17/18 07:35 Intake & Output 06/16/18 06/17/18 06/17/18 18:59 06:59 18:59 Intake Total 460 300 Output Total 1200 1600 Balance -740 -1600 300 Weight 78.5 kg Intake: Oral 460 300 Output: Urine 1200 1600 Other: Voiding Method Indwelling Catheter Indwelling Catheter Indwelling Catheter # Bowel Movements 1 1 - Exam Head normocephalic and atraumatic Neck supple no JVD no goiter Lungs crackles at the bases Heart irregular. A. fib on monitor, no gallops no murmurs Abdomen is soft with mild diffuse tenderness no organomegaly no palpable masses no rigidity or rebound with positive bowel sounds Extremities +2 bilateral lower extremity edema Neuro alert and orientated to 3 no gross focal deficit - Labs CBC & Chem 7: 06/17/18 05:36 06/17/18 05:36 Labs: Abnormal Lab Results - Last 24 Hours (Table) 06/16/18 06/16/18 06/16/18 Range/Units 12:04 16:32 20:47 RBC (3.80-5.40) m/uL MCV (80.0-100.0) fL MCH (25.0-35.0) pg MCHC (31.0-37.0) g/dL RDW (11.5-15.5) % Potassium (3.5-5.1) mmol/L BUN (7-17) mg/dL Creatinine (0.52-1.04) mg/dL Glucose (74-99) mg/dL POC Glucose (mg/dL) 192 H 150 H 126 H (75-99) mg/dL Total Bilirubin (0.2-1.3) mg/dL Total Protein (6.3-8.2) g/dL Albumin (3.5-5.0) g/dL 06/17/18 06/17/18 06/17/18 Range/Units 05:36 05:36 06:01 RBC 3.27 L (3.80-5.40) m/uL MCV 117.1 H (80.0-100.0) fL MCH 35.6 H (25.0-35.0) pg MCHC 30.4 L (31.0-37.0) g/dL RDW 18.0 H (11.5-15.5) % Potassium 3.4 L (3.5-5.1) mmol/L BUN 69 H (7-17) mg/dL Creatinine 3.13 H (0.52-1.04) mg/dL Glucose 126 H (74-99) mg/dL POC Glucose (mg/dL) 124 H (75-99) mg/dL Total Bilirubin 1.7 H (0.2-1.3) mg/dL Total Protein 5.8 L (6.3-8.2) g/dL Albumin 3.1 L (3.5-5.0) g/dL 06/17/18 Range/Units 11:44 RBC (3.80-5.40) m/uL MCV (80.0-100.0) fL MCH (25.0-35.0) pg MCHC (31.0-37.0) g/dL RDW (11.5-15.5) % Potassium (3.5-5.1) mmol/L BUN (7-17) mg/dL Creatinine (0.52-1.04) mg/dL Glucose (74-99) mg/dL POC Glucose (mg/dL) 148 H (75-99) mg/dL Total Bilirubin (0.2-1.3) mg/dL Total Protein (6.3-8.2) g/dL Albumin (3.5-5.0) g/dL Assessment and Plan Assessment: 1. Acute on chronic systolic CHF exacerbation: Patient is currently on IV Lasix 80 mg every 12 hours. Cardiology and nephrology are following. Echo from November showed an EF of 40-45% with moderate to severe mitral regurgitation. Patient's weight is 78.5 kg from 82.5 2. Acute kidney injury secondary to ATN due to prerenal syndrome and urinary retention. Creatinine up to 3.83 today. Nephrology services continue patient on Lasix 80 mg every 12 hours at this time and monitor labs. Creatinine down to 3.13. Potassium replacement per nephrology services. 3. Urinary retention status post Erickson catheter placement 4. Hyperkalemia secondary to acute kidney injury and metabolic acidosis. Potassium 5.9. Nephrology is ordered 10 units of insulin and an amp of D50. Continue to monitor potassium level 5. Metabolic acidosis secondary to acute kidney injury. Nephrology has adjusted the sodium bicarbonate dosage 6. History of severe mitral regurgitation 7. Chronic kidney disease stage IV secondary to cardiorenal syndrome. Nephrology following. 8. Chronic persistent atrial fibrillation anticoagulated with Xarelto 9. Diabetes mellitus type 2 continue the tradjenta. Add sliding scale coverage 10. Candidiasis of the abdominal fold. Add nystatin cream 3 times a day 11. Elevated LFTs likely related to fluid congestion. She had been evaluated by surgical service on last admission due to history of gallstone and elevated total bilirubin. No surgical intervention required at that time. Abdominal ultrasound completed showing cholelithiasis and possible cholesytitis. Old granulomatous changes withing the spleen. Small amount of ascites. Small right -sided pleural effusion. 12. Hypermagnesemia: Follow-up on repeat magnesium level GI prophylaxis Protonix and DVT prophylaxis Xarelto I performed an examination of the patient and discussed their management with the Nurse Practitioner. I have reviewed the Nurse Practitioner's notes and agree with the documented findings and plan of care
[2018-06-17] MEDS: METOPROLOL TARTRATE 25 MG TAB PO SCH (13:40)
[2018-06-17 16:41] LABS: Glucose,Whole Blood 143 mg/dL (75-99)
--- NOTE | 2018-06-17 18:32 | PN ---
PROGRESS NOTE She was seen on 06/17/2018. She is less short of breath. On physical examination her blood pressure is 130/67, respiratory rate of 18, pulse rate 94, temperature 97.6, O2 saturation on 2 L by nasal cannula is 98%. HEENT reveals pupils that are equal. Chest reveals decreased breath sounds in the bases. No wheeze or crackle. Cardiovascular system reveals an S1, S2. Abdomen is soft. There is 1+ pedal edema. Sodium is 138, potassium 3.4, chloride 101, bicarb 23, BUN 69, creatinine of 3.13. White count 6.1, hemoglobin 11.7. IMPRESSION: At this time: 1. Congestive heart failure. 2. Acute on chronic renal failure. 3. Pleural effusion secondary to congestive heart failure and renal failure is likely. Continue to optimize her fluid status. Increase her activity level. Medications were reviewed and from a pulmonary standpoint, would not make any changes at this time. MMODL / IJN: [id number] /
[2018-06-17 21:16] LABS: Glucose,Whole Blood 138 mg/dL (75-99)
--- NOTE | 2018-06-18 05:14 | PN ---
PROGRESS NOTE This patient's medical records, lab tests and medications reviewed. The patient was admitted with symptoms of shortness of breath and significant leg edema. Patient's breathing is improving. She denied any orthopnea or PND. Some swelling in the legs persist. Blood pressure is 122/70 mmHg. Heart rate is 100 per minute. Patient is afebrile. First and second heart sounds are normal. Lungs are clinically clear to auscultation and percussion. Abdomen is soft. There is 1+ pedal edema. The patient's creatinine is 3.13, BUN is 69. ASSESSMENT AND PLAN: This patient has acute on chronic diastolic heart failure with only mildly impaired left ventricular systolic function. Patient has probably moderate degree of mitral regurgitation. We will continue the patient on current medical therapy, which she is improving. Patient is currently getting IV Lasix 80 mg twice a day. We will recheck the chest x-ray tomorrow morning. MMODL / IJN: [id number] /
[2018-06-18 06:25] LABS: Glucose,Whole Blood 133 mg/dL (75-99)
[2018-06-18] MEDS: INSULIN ASPART 100 UNIT/ML 1 ML 10 ML VIAL SQ SCH ×4 (06:40→20:38)
[2018-06-18] MEDS: PANTOPRAZOLE 40 MG TABLET PO SCH (06:43)
[2018-06-18 07:24] LABS: Anisocytosis Slight; Basophils % (A) 0 %; Eosinophils # (A) 0.2 k/uL (0-0.7); Eosinophils % (A) 3 %; HCT 38.7 % (34.0-46.0); HGB 12.1 gm/dL (11.4-16.0); Hypochromasia Moderate; Lymphocytes # (A) 1.2 k/uL (1.0-4.8); Lymphocytes % (A) 16 %; MCH 36.1 pg (25.0-35.0); MCHC 31.2 g/dL (31.0-37.0); MCV 115.7 fL (80.0-100.0); Macrocytosis Marked; Mean Platelet Volume 8.2; Monocytes # (A) 0.4 k/uL (0-1.0); Monocytes % (A) 6 %; Neutrophils # (A) 5.2 k/uL (1.3-7.7); Neutrophils % (A) 72 %; Platelet Count 169 k/uL (150-450); RBC 3.34 m/uL (3.80-5.40); RDW 17.9 % (11.5-15.5); WBC 7.3 k/uL (3.8-10.6)
[2018-06-18 07:39] LABS: Albumin 3.1 g/dL (3.5-5.0); Potassium 3.4 mmol/L (3.5-5.1); Total Bilirubin 1.5 mg/dL (0.2-1.3); Total Protein 5.9 g/dL (6.3-8.2)
[2018-06-18 08:14] LABS: Target Cells Present
[2018-06-18] MEDS ORDERED: POTASSIUM CHLORIDE ER 20 MEQ TAB.ER PO STA (09:24)
[2018-06-18] MEDS: ALLOPURINOL 100 MG TAB PO SCH (10:02)
[2018-06-18] MEDS: BRIMONIDINE TARTRATE 0.2% DROPS 5 ML BTL BOTH EYES SCH ×2 (10:03→20:19)
[2018-06-18] MEDS: FUROSEMIDE 10 MG/ML 10 ML VIAL IV SCH ×2 (10:03→20:19)
[2018-06-18] MEDS: DORZOLAMIDE HCL 2% DROPS 10 ML BTL BOTH EYES SCH ×2 (10:03→20:19)
[2018-06-18] MEDS: LINAGLIPTIN 5 MG TABLET PO SCH (10:04)
[2018-06-18] MEDS: METOPROLOL TARTRATE 50 MG TAB PO SCH ×2 (10:04→20:19)
[2018-06-18] MEDS: ISOSORBIDE MONONITRATE ER 30 MG TAB.ER.24H PO SCH (10:04)
[2018-06-18] MEDS: RIVAROXABAN 10 MG TAB PO SCH (10:05)
[2018-06-18] MEDS: FERROUS SULFATE 325 MG TAB PO SCH (10:05)
[2018-06-18] MEDS: hydrALAZINE HCL 25 MG TAB PO SCH ×2 (10:05→20:19)
[2018-06-18] MEDS: CHOLECALCIFEROL 1,000 UNIT TAB PO SCH (10:05)
[2018-06-18] MEDS: MIDODRINE 5 MG TAB PO SCH ×3 (10:05→20:20)
[2018-06-18] MEDS: DOCUSATE 100 MG CAP PO SCH ×2 (10:06→20:19)
[2018-06-18] MEDS: SODIUM BICARBONATE TAB 650 MG TAB PO SCH ×2 (10:06→20:20)
[2018-06-18] MEDS: traMADol 50 MG TAB PO SCH ×3 (10:06→20:20)
[2018-06-18] MEDS: PSYLLIUM HUSK 100% 6 GM PACKET PO SCH ×2 (10:06→20:14)
[2018-06-18] MEDS: NYSTATIN 100,000UNIT/GM CREAM 30 GM TUBE TOPICAL SCH ×3 (10:07→20:18)
[2018-06-18] MEDS: VIT A,C & E-LUTEIN-MINERALS 1 EACH TAB PO SCH ×2 (10:07→21:06)
--- NOTE | 2018-06-18 11:23 | P.PN ---
Subjective Progress Note Date: 06/18/18 This is a 83-year-old female with a known past medical history of congestive heart failure with a known EF of 40-45%, diabetes mellitus, chronic kidney disease, uterine cancer status post hysterectomy, DVT with Toyin filter, chronic atrial fibrillation anticoagulated with Xarelto. Patient presents to the emergency room with complaints of worsening shortness of breath and lower extremity edema. She was just recently discharged from [facility] on June 07 at that time had been treated for an acute CHF exacerbation. She was discharged on torsemide 10 mg twice a day. She went to see her PCP, Dr. Nathan on Monday and the torsemide was changed to Lasix to 40 mg twice a day. However patient's symptoms continued to worsen she's had about a 5 pound weight Gain over the last week. Also had elevated potassium of 6.3 on admission. Creatinine is also elevated at 3.71 and his increased to 3.83. Consulted been placed for cardiology, nephrology and pulmonary service. Nephrology has increased the Lasix to 80 mg IV every 12 hours. Patient is still short of breath evidence of lower extremity edema and fatigued. She denies any fever, chills, sweats. Denies any chest pain. Denies any nausea vomiting bowel movement changes. She also had evidence of urinary retention and Erickson catheter inserted in the ER. Patient being treated for an acute CHF exacerbation. BNP was elevated at 26,300 on admission chest x-ray shows a small right pleural effusion and cardiomyopathy. EKG had shown atrial fibrillation with a heart rate of 111 On 06/16/2018 patient was seen and examined on the third telemetry floor she is alert and oriented 3 she is complaining of abdominal discomfort she is complaining of shortness of breath with some improvement since yesterday she is complaining of bilateral lower extremity edema otherwise she denies any complaints there is no fever or chills no headache or dizziness no chest pain no cough no nausea or vomiting no constipation or diarrhea and no urinary symptoms Erickson catheter is in. On 06/17/2018 patient is currently sitting up in chair alert and oriented 3. Patient states she is feeling improved from yesterday. Patient has tolerated breakfast today. Patient is still making good urine output after Erickson catheter. At this time patient denies chest pain or shortness of breath. Patient down from 82.5 kg to 78.5 kg. Patient remains on IV Lasix 80 mg every 12 hours 06/18/2018 patient is sitting up at bedside chair. She reports she is feeling better. Shortness of breath has improved. Yesterday she was able to get to the bathroom on her own with support observing only. Lower extremity edema improving. She remains on the IV Lasix 80 every 12. Denies any chest pain. Denies any nausea or vomiting. She is asking when the Erickson catheter will be removed. Objective - Vital Signs Vital signs: Vital Signs Temp 97.1 F L 06/18/18 04:00 Pulse 93 06/18/18 04:00 Resp 18 06/18/18 04:00 BP 112/70 06/18/18 04:00 Pulse Ox 96 06/18/18 04:00 Intake & Output 06/17/18 06/18/18 06/18/18 18:59 06:59 18:59 Intake Total 858 120 Output Total 950 650 500 Balance -92 -650 -380 Intake: Oral 858 120 Output: Urine 950 650 500 Other: Voiding Method Indwelling Catheter Indwelling Catheter - Exam Head normocephalic Neck supple Lungs crackles at bases Heart irregular A. fib on monitor rate controlled Abdomen is soft nontender nondistended positive bowel sounds no hepatosplenomegaly Extremities +1 edema bilateral lower extremities Neuro alert and orientated to 3 - Labs CBC & Chem 7: 06/18/18 06:26 06/18/18 06:26 Labs: Abnormal Lab Results - Last 24 Hours (Table) 06/17/18 06/17/18 06/17/18 Range/Units 11:44 16:38 20:53 RBC (3.80-5.40) m/uL MCV (80.0-100.0) fL MCH (25.0-35.0) pg RDW (11.5-15.5) % Potassium (3.5-5.1) mmol/L BUN (7-17) mg/dL Creatinine (0.52-1.04) mg/dL Glucose (74-99) mg/dL POC Glucose (mg/dL) 148 H 143 H 138 H (75-99) mg/dL Total Bilirubin (0.2-1.3) mg/dL Total Protein (6.3-8.2) g/dL Albumin (3.5-5.0) g/dL 06/18/18 06/18/18 06/18/18 Range/Units 06:22 06:26 06:26 RBC 3.34 L (3.80-5.40) m/uL MCV 115.7 H (80.0-100.0) fL MCH 36.1 H (25.0-35.0) pg RDW 17.9 H (11.5-15.5) % Potassium 3.4 L (3.5-5.1) mmol/L BUN 59 H (7-17) mg/dL Creatinine 2.89 H (0.52-1.04) mg/dL Glucose 118 H (74-99) mg/dL POC Glucose (mg/dL) 133 H (75-99) mg/dL Total Bilirubin 1.5 H (0.2-1.3) mg/dL Total Protein 5.9 L (6.3-8.2) g/dL Albumin 3.1 L (3.5-5.0) g/dL Assessment and Plan Assessment: 1. Acute on chronic systolic CHF exacerbation: Patient is currently on IV Lasix 80 mg every 12 hours. Cardiology and nephrology are following. Echo from November showed an EF of 40-45% with moderate to severe mitral regurgitation. Continue to monitor daily weights and I's and O's 2. Acute kidney injury secondary to ATN due to prerenal syndrome and urinary retention. Nephrology following. Creatinine trending down. Awaiting nephrology recommendations regarding discontinuing the Erickson catheter. 3. Urinary retention status post Erickson catheter placement 4. Hyperkalemia secondary to acute kidney injury and metabolic acidosis. Resolved 5. Metabolic acidosis secondary to acute kidney injury. Nephrology has adjusted the sodium bicarbonate dosage 6. History of severe mitral regurgitation 7. Chronic kidney disease stage IV secondary to cardiorenal syndrome. Nephrology following. 8. Chronic persistent atrial fibrillation anticoagulated with Xarelto 9. Diabetes mellitus type 2 continue the tradjenta. Add sliding scale coverage 10. Candidiasis of the abdominal fold. Add nystatin cream 3 times a day 11. Elevated LFTs likely related to fluid congestion. She had been evaluated by surgical service on last admission due to history of gallstone and elevated total bilirubin. No surgical intervention required at that time. Patient denies any right upper quadrant abdominal pain or nausea. Abdominal ultrasound completed showing cholelithiasis and possible cholecystitis. Surgical service has been consulted. LFTs have normalized. Total bilirubin trending down. 12. Hypermagnesemia: Follow-up on repeat magnesium level 13. Hypokalemia patient receiving potassium supplement GI prophylaxis Protonix and DVT prophylaxis Xarelto Await further recommendations per cardiology and nephrology. I performed an examination of the patient and discussed their management with the physician Meat Service Team Member. I have reviewed the Physician Meat Service Team Member's notes and agree with the documented findings and plan of care
[2018-06-18 11:53] LABS: Glucose,Whole Blood 178 mg/dL (75-99)
[2018-06-18] MEDS: METOPROLOL TARTRATE 25 MG TAB PO SCH (13:15)
--- NOTE | 2018-06-18 14:16 | P.GSCN ---
History of Present Illness Consult date: 06/18/18 Reason for Consult: Abdominal pain History of present illness: 83-year-old female being seen at the request the attending for a surgical eval for abdominal pain. Has a known history of cholelithiasis Patient is known to Dr. bruno service. Was recently discharged from [facility] June 07. At that time the patient was treated for an acute exacerbation of systolic heart failure. stated that since being discharged had noted increased shortness of breath with increase edema involving the lower extremities. Currently patient is being followed by nephrology the Lasix is been increased to 80 IV every 12. Patient states breathing feels slightly improved and there is less edema to the lower extremities. Patient denies any nausea vomiting or frequent stooling. Patients being treated by the attending for acute exacerbation of systolic heart failure. Total bilirubin is mildly elevated at 1.5 this admission. Patient was seen the last admission on June [address] Bruno for mild gallbladder wall thickening with stones seen. At that admission options of cholecystectomy were discussed with the patient and family. At that time they wanted to avoid any possible surgical intervention given patient's underlying cardiac issues. Patient states that since being discharged has had very mild pain involving the right lower quadrant. Patient states it comes and goes it's not constant Patient reports no nausea vomiting at home and since being admitted there is decreased swelling to the lower extremities with improvement in the shortness of breath abdomen is soft with mild tenderness to the right lower quadrant patient again reports not anxious to have any surgery on the gallbladder Ultrasound obtained on June 17 reviewing the report cholelithiasis possible cholecystitis small amount of ascites multiple gallstones within the gallbladder, bile duct measures 4 mm Review of Systems Reviewed essentially unremarkable except as mentioned in the present illness Past Medical History Past Medical History: Atrial Fibrillation, Coronary Artery Disease (CAD), Cancer , Heart Failure, Diabetes Mellitus, Deep Vein Thrombosis (DVT), Eye Disorder, GERD/Reflux, Hypertension, Renal Disease Additional Past Medical History / Comment(s): Macular Degeneration and gluacoma , gallstones, stage 3 kidney failure, hx Uterine & groin CA; WEARS BILAT THIGH HIGH HOSE, uses cane or walker, patient states she has "2 blood clots in right groin since 2003" family states now clot is "through the whole leg" CHF, History of Any Multi-Drug Resistant Organisms: ESBL, VRE Year Discovered:: 02/15/18 ESBL E.Coli; 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 left hip replacement, rt breast biopsy, darcy filter rt leg, biopsy of right nostril Past Anesthesia/Blood Transfusion Reactions: No Reported Reaction Past Psychological History: No Psychological Hx Reported Smoking Status: Former smoker Past Alcohol Use History: None Reported Additional Past Alcohol Use History / Comment(s): smoked 1 pkg from 1961 to 1971 Past Drug Use History: None Reported - Past Family History Mother Family Medical History: No Reported History Additional Family Medical History / Comment(s): Family states pt's mother " of pneumonia". Father Family Medical History: Diabetes Mellitus Medications and Allergies Home Medications Medication Instructions Recorded Confirmed Type Allopurinol [Zyloprim] 200 mg PO DAILY 01/22/14 06/14/18 History Linagliptin [Tradjenta] 5 mg PO DAILY 01/22/14 06/14/18 History Omeprazole [PriLOSEC] 20 mg PO DAILY@0700 01/22/14 06/14/18 History Docusate Sodium [Stool Softener] 100 mg PO BID 02/22/14 06/14/18 History Garlic 1 tab PO BID 02/22/14 06/14/18 History Calcitriol 0.25 mcg PO SUTUTHSA 08/22/14 06/14/18 History traMADol HCL [Ultram] 50 mg PO TID 01/13/16 06/14/18 History Brinzolamide/Brimonidine Tart 1 drop BOTH EYES BID 05/11/17 06/14/18 History [Simbrinza 1%-0.2% Eye Drops] Vit C/E/Zn/Coppr/Lutein/Zeaxan 1 cap PO BID 12/03/17 06/14/18 History [Preservision Areds 2 Softgel] Ferrous Sulfate [Feosol] 325 mg PO DAILY 01/11/18 06/14/18 History Ammonium Lactate Cream [Lac-Hydrin 1 applic TOPICAL BID 02/10/18 06/14/18 History 12% Cream] Cholecalciferol (Vitamin D3) 2,000 unit PO DAILY 02/10/18 06/14/18 History [Vitamin D3] Isosorbide Mononitrate ER [Imdur] 60 mg PO DAILY 02/10/18 06/14/18 History Wheat Dextrin [Benefiber] 1 packet PO BID 02/10/18 06/14/18 History Midodrine [ProAmatine] 5 mg PO TID 04/10/18 06/14/18 History Rivaroxaban [Xarelto] 10 mg PO DAILY 04/10/18 06/14/18 History Potassium Chloride ER [K-Dur 20] 20 meq PO DAILY #30 tab 04/13/18 06/14/18 Rx Sodium Bicarbonate Tab 650 mg PO BID #60 tab 04/13/18 06/14/18 Rx Potassium Chloride ER [K-Dur 10] 10 meq PO DAILY 06/02/18 06/14/18 History Furosemide [Lasix] 40 mg PO BID 06/14/18 06/15/18 History Metoprolol Tartrate [Lopressor] 2 tab PO BID 06/14/18 06/15/18 History Metoprolol Tartrate [Lopressor] 1 tab PO PC-LUNCH 06/15/18 06/15/18 History Allergies Allergy/AdvReac Type Severity Reaction Status Date / Time atorvastatin calcium Allergy Unknown Verified 06/14/18 12:59 [From Lipitor] codeine Allergy Unknown Verified 06/14/18 12:59 [From Tylenol-Codeine #3] hydrocodone Allergy Vomiting Verified 06/14/18 12:59 Surgical - Exam Vital Signs Pulse Resp BP Pulse Ox 98 16 117/87 99 06/14/18 12:11 06/14/18 12:11 06/14/18 12:11 06/14/18 12:11 GENERAL APPEARANCE: Pleasant 83-year-old female sitting up in a chair taking a diet reviewed is alert, oriented, in no acute distress. VITAL SIGNS: Reviewed HEENT: Head is normocephalic and atraumatic. Pupils are equal and reactive. The nares are patent. Oropharynx is clear without lesions. NECK: Supple without lymphadenopathy. Traches midline. HEART: S1, S2. irregular Denying chest pain LUNGS: No crackles at the bases are heard. Good air movement no conversational shortness breath noted ABDOMEN: Soft, nontender, nondistended with good bowel sounds. No peritoneal signs. No palpable organomegaly or masses. EXTREMITIES: decreased pedal edema noted. Radial pedal pulses are 2/4 bilaterally. NEUROLOGICAL: No focal deficits. Strength and sensation are grossly intact. Results - Labs 06/18/18 06:26 06/18/18 06:26 Abnormal Lab Results - Last 24 Hours (Table) 06/17/18 06/17/18 06/18/18 Range/Units 16:38 20:53 06:22 RBC (3.80-5.40) m/uL MCV (80.0-100.0) fL MCH (25.0-35.0) pg RDW (11.5-15.5) % Potassium (3.5-5.1) mmol/L BUN (7-17) mg/dL Creatinine (0.52-1.04) mg/dL Glucose (74-99) mg/dL POC Glucose (mg/dL) 143 H 138 H 133 H (75-99) mg/dL Total Bilirubin (0.2-1.3) mg/dL Total Protein (6.3-8.2) g/dL Albumin (3.5-5.0) g/dL 06/18/18 06/18/18 06/18/18 Range/Units 06:26 06:26 11:37 RBC 3.34 L (3.80-5.40) m/uL MCV 115.7 H (80.0-100.0) fL MCH 36.1 H (25.0-35.0) pg RDW 17.9 H (11.5-15.5) % Potassium 3.4 L (3.5-5.1) mmol/L BUN 59 H (7-17) mg/dL Creatinine 2.89 H (0.52-1.04) mg/dL Glucose 118 H (74-99) mg/dL POC Glucose (mg/dL) 178 H (75-99) mg/dL Total Bilirubin 1.5 H (0.2-1.3) mg/dL Total Protein 5.9 L (6.3-8.2) g/dL Albumin 3.1 L (3.5-5.0) g/dL Diabetes panel 06/18/18 Range/Units 06:26 Sodium 141 (137-145) mmol/L Potassium 3.4 L (3.5-5.1) mmol/L Chloride 102 (98-107) mmol/L Carbon Dioxide 27 (22-30) mmol/L BUN 59 H (7-17) mg/dL Creatinine 2.89 H (0.52-1.04) mg/dL Glucose 118 H (74-99) mg/dL Calcium 9.0 (8.4-10.2) mg/dL AST 23 (14-36) U/L ALT 38 (9-52) U/L Alkaline Phosphatase 88 (38-126) U/L Total Protein 5.9 L (6.3-8.2) g/dL Albumin 3.1 L (3.5-5.0) g/dL Calcium panel 06/18/18 Range/Units 06:26 Calcium 9.0 (8.4-10.2) mg/dL Albumin 3.1 L (3.5-5.0) g/dL Pituitary panel 06/18/18 Range/Units 06:26 Sodium 141 (137-145) mmol/L Potassium 3.4 L (3.5-5.1) mmol/L Chloride 102 (98-107) mmol/L Carbon Dioxide 27 (22-30) mmol/L BUN 59 H (7-17) mg/dL Creatinine 2.89 H (0.52-1.04) mg/dL Glucose 118 H (74-99) mg/dL Calcium 9.0 (8.4-10.2) mg/dL Adrenal panel 06/18/18 Range/Units 06:26 Sodium 141 (137-145) mmol/L Potassium 3.4 L (3.5-5.1) mmol/L Chloride 102 (98-107) mmol/L Carbon Dioxide 27 (22-30) mmol/L BUN 59 H (7-17) mg/dL Creatinine 2.89 H (0.52-1.04) mg/dL Glucose 118 H (74-99) mg/dL Calcium 9.0 (8.4-10.2) mg/dL Total Bilirubin 1.5 H (0.2-1.3) mg/dL AST 23 (14-36) U/L ALT 38 (9-52) U/L Alkaline Phosphatase 88 (38-126) U/L Total Protein 5.9 L (6.3-8.2) g/dL Albumin 3.1 L (3.5-5.0) g/dL Assessment and Plan Assessment: Impression Urinary retention status post Erickson catheter placement Acute kidney injury secondary to ATN due to prerenal syndrome and urinary retention nephrology following Present on admission shortness of breath with increase edema to the lower extremity suspect due to acute on chronic systolic congestive heart failure exacerbation echo from November 2017 EF 40-45% Moderate to severe mitral regurgitation Hyperkalemia Chronic persistent atrial fibrillation on anticoagulation Xarelto Chronic kidney disease stage IV secondary to cardiorenal syndrome Present on admission mildly elevated bilirubin 1.5 Known cholelithiasis As noted on ultrasound of the abdomen Elevated bilirubin, transient right upper quadrant tenderness with an ultrasound findings suspect due to right heart failure Chronic history of gallstones with no plan surgical intervention at this time Plan Continue to monitor patient symptoms patient's requesting conservative management at this time given cardiac history Repeat labs in the morning Will follow with you DVT and GI prophylaxis No evidence of an acute surgical abdomen at this time Surgical consultation dictated for Dr.bhesania valencia on behalf of Dr. bruno The above impression and plan of care have been discussed and directed by signing physician. Jenna Queen nurse practitioner acting as scribe for signing physician.
--- NOTE | 2018-06-18 15:30 | P.PN ---
Subjective Progress Note Date: 06/18/18 This is a pleasant 83-year-old female who follows regularly with Dr. May in the office. She has a known history of chronic kidney disease, chronic persistent atrial fibrillation, congestive heart failure, diastolic in nature, and again presented to the hospital with symptoms of progressively worsening shortness of breath with seated peripheral edema. Her ejection fraction by last echo performed at was 45% with moderate regurgitation. Patient does have history also of prior DVT and [place] filter placement. Patient was seen and examined this morning, she continues to diurese well. Her creatinine today is 2.8 weight is down 1 kg. Patient's edema is overall improving. She does state that she feels better overall, sitting up in the chair at the time of my examination. Objective - Vital Signs Vital signs: Vital Signs Temp 97.4 F L 06/18/18 12:00 Pulse 95 06/18/18 12:00 Resp 18 06/18/18 12:00 BP 109/64 06/18/18 12:00 Pulse Ox 96 06/18/18 12:00 Intake & Output 06/17/18 06/18/18 06/18/18 18:59 06:59 18:59 Intake Total 858 240 Output Total 432 801 9331 Balance -92 -650 -960 Intake: Oral 858 240 Output: Urine 378 507 0391 Other: Voiding Method Indwelling Catheter Indwelling Catheter Indwelling Catheter - Exam PHYSICAL EXAMINATION: GENERAL: 83-year-old female in no acute distress at the time of my examination HEENT: Head is atraumatic, normocephalic. Pupils equal, round. Sclera anicteric. Conjunctiva are clear. Mucous membranes of the mouth are moist. Neck is supple. There is no elevated jugular venous pressure. Carotid bruit is heard. HEART EXAMINATION: S1-S2 irregularly irregular a holosystolic murmur is heard. CHEST EXAMINATION: Lungs are clear to auscultation and precussion. No chest wall tenderness is noted on palpation or with deep breathing. ABDOMEN: Soft, nontender. Bowel sounds are heard. No organomegaly noted. EXTREMITIES: 2+ peripheral pulses with 1+ evidence of peripheral edema and no calf tenderness noted. NEUROLOGIC patient is awake, alert and oriented X3. . - Labs CBC & Chem 7: 06/18/18 06:26 06/18/18 06:26 Labs: Abnormal Lab Results - Last 24 Hours (Table) 06/17/18 06/17/18 06/18/18 Range/Units 16:38 20:53 06:22 RBC (3.80-5.40) m/uL MCV (80.0-100.0) fL MCH (25.0-35.0) pg RDW (11.5-15.5) % Potassium (3.5-5.1) mmol/L BUN (7-17) mg/dL Creatinine (0.52-1.04) mg/dL Glucose (74-99) mg/dL POC Glucose (mg/dL) 143 H 138 H 133 H (75-99) mg/dL Total Bilirubin (0.2-1.3) mg/dL Total Protein (6.3-8.2) g/dL Albumin (3.5-5.0) g/dL 06/18/18 06/18/18 06/18/18 Range/Units 06:26 06:26 11:37 RBC 3.34 L (3.80-5.40) m/uL MCV 115.7 H (80.0-100.0) fL MCH 36.1 H (25.0-35.0) pg RDW 17.9 H (11.5-15.5) % Potassium 3.4 L (3.5-5.1) mmol/L BUN 59 H (7-17) mg/dL Creatinine 2.89 H (0.52-1.04) mg/dL Glucose 118 H (74-99) mg/dL POC Glucose (mg/dL) 178 H (75-99) mg/dL Total Bilirubin 1.5 H (0.2-1.3) mg/dL Total Protein 5.9 L (6.3-8.2) g/dL Albumin 3.1 L (3.5-5.0) g/dL Assessment and Plan Plan: Assessment and plan #1 diastolic congestive heart failure acute on chronic #2 acute on chronic kidney disease #3 chronic persistent atrial fibrillation #4 history of DVT with prior Toyin filter #5 severe MR Plan From cardiology's perspective, we'll continue current dose of Lasix, repeat chest x-ray, check lytes BUN and creatinine along with daily weights and intake and output in the morning. DNP note has been reviewed, I agree with a documented findings and plan of care. Patient was seen and examined.
--- NOTE | 2018-06-18 16:08 | PN ---
PROGRESS NOTE DATE OF SERVICE: 06/18/2018 Patient is an 83-year-old female who is seen sitting up in a chair, is awake and alert, listening to an audio book with a visitor at the bedside. Patient is afebrile. Hemodynamically stable in no acute distress. PHYSICAL EXAM: VITAL SIGNS: Temperature 97.4, heart rate is 95, respiratory rate 18, blood pressure is 109/64, O2 sats 96% on 2 L O2 via nasal cannula. HEENT. Head is normocephalic, atraumatic. Neck is supple. Trachea is midline. Lungs: Diminished to the bilateral bases, otherwise clear. HEART: S1, S2 are heard. Irregular not tachycardic. ABDOMEN: Soft. Bowel sounds are heard. EXTREMITIES: With 1 to 2+ lower and upper extremity edema. Neurologic: Patient is awake and alert. LABS: White count 7.3, hemoglobin is 12.1, hematocrit 38.7 with 169,000 platelets. Sodium is 141, potassium is 3.4, chloride is 102, CO2 is 27, anion gap is 12, BUN is 59, creatinine 2.89, glucose 118, magnesium is 2.1, total bilirubin 1.5, calcium is 9.0, AST is 23, ALT is 38, alkaline phosphatase is 88, total protein is 5.9, albumin is 3.1. Ultrasound of the abdomen done yesterday shows cholelithiasis and possible cholecystitis. Correlate clinically. Old granulomatous changes within the spleen. Small amount of ascites, small right-sided pleural effusion. IMPRESSION: At this time: 1. Congestive heart failure. 2. Acute on chronic renal failure. 3. Possible cholecystitis. 4. Pleural effusion secondary to congestive heart failure and renal failure is likely. PLAN: Continue current medications which have been reviewed. Continue to optimize fluid status. Continue surgical recommendations. Continue GI and DVT prophylaxis and we will follow patient closely with you making further changes as necessary. Please note, we are covering for Dr. Wellington. I performed a History & Physical Examination of the patient and discussed their management with nurse practitioner. I reviewed the nurse practitioner's note and agree with the documented findings and plan of care. MMODL / IJN: [id number] /
[2018-06-18 16:23] LABS: Glucose,Whole Blood 148 mg/dL (75-99)
[2018-06-18] MEDS: AMMONIUM LACTATE 12% CREAM 140 GM TUBE TOPICAL SCH ×2 (17:21→20:18)
--- NOTE | 2018-06-18 18:24 | PN ---
PROGRESS NOTE The patient is seen for followup for acute on top of chronic kidney disease. She was admitted with fluid overload, hyperkalemia, currently patient is maintained on IV Lasix. She has been diuresing well. Her renal function is fairly stable and improved. Creatinine is down to 2.89 from 3.7 on initial admission. Lowest creatinine has been about 2.32 mg/dL. PHYSICAL EXAMINATION: Blood pressure this morning was 114/66, heart rate of 93 per minute. Patient is afebrile. Examination of the heart S1, S2. Examination of the lungs bilateral breath sounds are heard. Abdomen is soft, nontender. Examination of lower extremities shows trace edema. Chronic skin changes. BLOOD [employer]ORAT[employer] PROFESSIONAL exam is grossly intact. LABS: Show sodium 141, potassium 3.4, chloride 102, BUN 59, serum creatinine 2.89, magnesium 2.1, hemoglobin 12.1 g/dL. ASSESSMENT: 1. Acute kidney injury, cardiorenal, currently improving. 2. Congestive heart failure, fluid overload, currently improved since admission. The patient is maintained on IV Lasix 80 mg q.12 hours. 3. Chronic kidney disease stage 4, baseline about 2-2.6 mg/dL. 4. Urine retention with indwelling Erickson catheter. 5. Metabolic acidosis. Maintained on oral sodium bicarb. 6. Hyperkalemia, improved currently potassium is on the lower side and being replaced. PLAN: We can switch to oral diuretics tomorrow. The patient is stable for discharge from Nephrology standpoint. However, she has issues with cholelithiasis, which are currently being addressed from surgical standpoint. MMODL / IJN: [id number] /
[2018-06-18 20:46] LABS: Glucose,Whole Blood 142 mg/dL (75-99)
--- NOTE | 2018-06-18 21:49 | XR ---
EXAMINATION TYPE: XR chest 2V DATE OF EXAM: 06/18/2018 COMPARISON: Prior chest x-ray 06/14/2018 HISTORY: Congestive heart failure TECHNIQUE: Frontal and lateral views of the chest are obtained. FINDINGS: There is no pneumothorax seen. Blunting of the costophrenic angle on the right, posterior ly noted with increased basilar density. The cardiac silhouette size is stable, enlarged. Interstit ium is increased. There are overlying cardiac leads. The osseous structures are intact. IMPRESSION: Correlate for pulmonary venous hypertension and interstitial edema. Follow-up recommende d. There may be right pleural effusion, correlate to exclude pneumonia versus edema or atelectasis.
[2018-06-19 05:53] LABS: Glucose,Whole Blood 113 mg/dL (75-99)
[2018-06-19] MEDS: INSULIN ASPART 100 UNIT/ML 1 ML 10 ML VIAL SQ SCH ×4 (05:54→20:55)
[2018-06-19 06:19] LABS: Anisocytosis Slight; Basophils % (A) 0 %; Eosinophils # (A) 0.3 k/uL (0-0.7); Eosinophils % (A) 4 %; HCT 40.1 % (34.0-46.0); HGB 11.9 gm/dL (11.4-16.0); Hypochromasia Moderate; Lymphocytes # (A) 1.2 k/uL (1.0-4.8); Lymphocytes % (A) 17 %; MCH 34.5 pg (25.0-35.0); MCHC 29.6 g/dL (31.0-37.0); MCV 116.7 fL (80.0-100.0); Mean Platelet Volume 7.9; Monocytes # (A) 0.5 k/uL (0-1.0); Monocytes % (A) 7 %; Neutrophils # (A) 4.9 k/uL (1.3-7.7); Neutrophils % (A) 70 %; Platelet Count 166 k/uL (150-450); RBC 3.44 m/uL (3.80-5.40)
[2018-06-19 06:23] LABS: Macrocytosis Marked
[2018-06-19 06:34] LABS: Albumin 3.1 g/dL (3.5-5.0); Calcium 9.1 mg/dL (8.4-10.2); Potassium 3.4 mmol/L (3.5-5.1); Total Bilirubin 1.6 mg/dL (0.2-1.3)
[2018-06-19] MEDS: PANTOPRAZOLE 40 MG TABLET PO SCH (06:37)
[2018-06-19] MEDS ORDERED: POTASSIUM CHLORIDE ER 20 MEQ TAB.ER PO STA (08:56)
[2018-06-19] MEDS: SODIUM BICARBONATE TAB 650 MG TAB PO SCH ×2 (10:09→20:18)
[2018-06-19] MEDS: MIDODRINE 5 MG TAB PO SCH ×3 (10:09→20:18)
[2018-06-19] MEDS: hydrALAZINE HCL 25 MG TAB PO SCH ×2 (10:10→20:18)
[2018-06-19] MEDS: FERROUS SULFATE 325 MG TAB PO SCH (10:10)
[2018-06-19] MEDS: ALLOPURINOL 100 MG TAB PO SCH (10:10)
[2018-06-19] MEDS: METOPROLOL TARTRATE 50 MG TAB PO SCH ×2 (10:10→20:18)
[2018-06-19] MEDS: ISOSORBIDE MONONITRATE ER 30 MG TAB.ER.24H PO SCH (10:10)
[2018-06-19] MEDS: LINAGLIPTIN 5 MG TABLET PO SCH (10:10)
[2018-06-19] MEDS: DOCUSATE 100 MG CAP PO SCH ×2 (10:11→20:18)
[2018-06-19] MEDS: RIVAROXABAN 10 MG TAB PO SCH (10:11)
[2018-06-19] MEDS: traMADol 50 MG TAB PO SCH ×3 (10:11→20:18)
[2018-06-19] MEDS: CHOLECALCIFEROL 1,000 UNIT TAB PO SCH (10:11)
[2018-06-19] MEDS: FUROSEMIDE 10 MG/ML 10 ML VIAL IV SCH (10:12)
[2018-06-19] MEDS: PSYLLIUM HUSK 100% 6 GM PACKET PO SCH ×2 (10:13→20:19)
[2018-06-19] MEDS: NYSTATIN 100,000UNIT/GM CREAM 30 GM TUBE TOPICAL SCH ×3 (10:14→20:19)
[2018-06-19] MEDS: AMMONIUM LACTATE 12% CREAM 140 GM TUBE TOPICAL SCH ×2 (10:14→20:19)
[2018-06-19] MEDS: DORZOLAMIDE HCL 2% DROPS 10 ML BTL BOTH EYES SCH ×2 (10:15→20:17)
[2018-06-19] MEDS: BRIMONIDINE TARTRATE 0.2% DROPS 5 ML BTL BOTH EYES SCH ×2 (10:16→20:17)
[2018-06-19] MEDS: CALCITRIOL 0.25 MCG CAP PO SCH (10:27)
[2018-06-19] MEDS: VIT A,C & E-LUTEIN-MINERALS 1 EACH TAB PO SCH ×2 (10:27→20:21)
--- NOTE | 2018-06-19 10:33 | P.PN ---
Subjective Progress Note Date: 06/19/18 This is a 83-year-old female with a known past medical history of congestive heart failure with a known EF of 40-45%, diabetes mellitus, chronic kidney disease, uterine cancer status post hysterectomy, DVT with Toyin filter, chronic atrial fibrillation anticoagulated with Xarelto. Patient presents to the emergency room with complaints of worsening shortness of breath and lower extremity edema. She was just recently discharged from [facility] on June 07 at that time had been treated for an acute CHF exacerbation. She was discharged on torsemide 10 mg twice a day. She went to see her PCP, Dr. Nathan on Monday and the torsemide was changed to Lasix to 40 mg twice a day. However patient's symptoms continued to worsen she's had about a 5 pound weight Gain over the last week. Also had elevated potassium of 6.3 on admission. Creatinine is also elevated at 3.71 and his increased to 3.83. Consulted been placed for cardiology, nephrology and pulmonary service. Nephrology has increased the Lasix to 80 mg IV every 12 hours. Patient is still short of breath evidence of lower extremity edema and fatigued. She denies any fever, chills, sweats. Denies any chest pain. Denies any nausea vomiting bowel movement changes. She also had evidence of urinary retention and Erickson catheter inserted in the ER. Patient being treated for an acute CHF exacerbation. BNP was elevated at 26,300 on admission chest x-ray shows a small right pleural effusion and cardiomyopathy. EKG had shown atrial fibrillation with a heart rate of 111 On 06/16/2018 patient was seen and examined on the third telemetry floor she is alert and oriented 3 she is complaining of abdominal discomfort she is complaining of shortness of breath with some improvement since yesterday she is complaining of bilateral lower extremity edema otherwise she denies any complaints there is no fever or chills no headache or dizziness no chest pain no cough no nausea or vomiting no constipation or diarrhea and no urinary symptoms Erickson catheter is in. On 06/17/2018 patient is currently sitting up in chair alert and oriented 3. Patient states she is feeling improved from yesterday. Patient has tolerated breakfast today. Patient is still making good urine output after Erickson catheter. At this time patient denies chest pain or shortness of breath. Patient down from 82.5 kg to 78.5 kg. Patient remains on IV Lasix 80 mg every 12 hours 06/18/2018 patient is sitting up at bedside chair. She reports she is feeling better. Shortness of breath has improved. Yesterday she was able to get to the bathroom on her own with support observing only. Lower extremity edema improving. She remains on the IV Lasix 80 every 12. Denies any chest pain. Denies any nausea or vomiting. She is asking when the Erickson catheter will be removed. 06/19/2018 H date patient is starting to feel better. Less shortness of breath left lower extremity edema. Her weight has increased from 78.5 kg to 80.1 kg. Chest x-ray showing pulmonary venous hypertension and interstitial edema. Discussed with cardiology service and likely they will continue IV Lasix today. Therefore we will keep Erickson catheter in for patient's comfort. Physical therapy has been consulted. Creatinine is down to 2.59. Patient also seen by surgical service regarding her gallstones. No surgical intervention is scheduled for. Likely patient's LFTs and total bilirubin were elevated due to liver congestion. Patient denies chest pain. Denies any nausea vomiting. Reports regular bowel movements. Objective - Vital Signs Vital signs: Vital Signs Temp 98.0 F 06/19/18 04:00 Pulse 98 06/19/18 04:00 Resp 18 06/19/18 04:00 BP 122/61 06/19/18 04:00 Pulse Ox 96 06/19/18 04:00 Intake & Output 06/18/18 06/19/18 06/19/18 18:59 06:59 18:59 Intake Total 360 240 Output Total 1200 900 Balance -840 -900 240 Weight 80.1 kg Intake: Oral 360 240 Output: Urine 1200 900 Other: Voiding Method Indwelling Catheter Indwelling Catheter # Bowel Movements 1 - Exam Head normocephalic Neck supple Lungs crackles at bases Heart irregular A. fib on monitor rate controlled Abdomen is soft nontender nondistended positive bowel sounds no hepatosplenomegaly Extremities +1 edema bilateral lower extremities Neuro alert and orientated to 3 - Labs CBC & Chem 7: 06/19/18 05:33 06/19/18 05:33 Labs: Abnormal Lab Results - Last 24 Hours (Table) 06/18/18 06/18/18 06/18/18 Range/Units 11:37 16:21 20:34 RBC (3.80-5.40) m/uL MCV (80.0-100.0) fL MCHC (31.0-37.0) g/dL RDW (11.5-15.5) % Potassium (3.5-5.1) mmol/L BUN (7-17) mg/dL Creatinine (0.52-1.04) mg/dL Glucose (74-99) mg/dL POC Glucose (mg/dL) 178 H 148 H 142 H (75-99) mg/dL Total Bilirubin (0.2-1.3) mg/dL Total Protein (6.3-8.2) g/dL Albumin (3.5-5.0) g/dL 06/19/18 06/19/18 06/19/18 Range/Units 05:33 05:33 05:52 RBC 3.44 L (3.80-5.40) m/uL MCV 116.7 H (80.0-100.0) fL MCHC 29.6 L (31.0-37.0) g/dL RDW 18.0 H (11.5-15.5) % Potassium 3.4 L (3.5-5.1) mmol/L BUN 59 H (7-17) mg/dL Creatinine 2.59 H (0.52-1.04) mg/dL Glucose 103 H (74-99) mg/dL POC Glucose (mg/dL) 113 H (75-99) mg/dL Total Bilirubin 1.6 H (0.2-1.3) mg/dL Total Protein 6.0 L (6.3-8.2) g/dL Albumin 3.1 L (3.5-5.0) g/dL Assessment and Plan Assessment: 1. Acute on chronic systolic CHF exacerbation: Patient is currently on IV Lasix 80 mg every 12 hours. Cardiology and nephrology are following. Echo from November showed an EF of 40-45% with moderate to severe mitral regurgitation. Continue to monitor daily weights and I's and O's. Discussed with cardiology will continue IV Lasix. Chest x-ray showing evidence of interstitial edema 2. Acute kidney injury secondary to ATN due to cardiorenal syndrome and urinary retention. Nephrology following. Creatinine trending down. 3. Urinary retention status post Erickson catheter placement 4. Hyperkalemia secondary to acute kidney injury and metabolic acidosis. Resolved 5. Metabolic acidosis secondary to acute kidney injury. Nephrology has adjusted the sodium bicarbonate dosage 6. History of severe mitral regurgitation 7. Chronic kidney disease stage IV secondary to cardiorenal syndrome. Nephrology following. 8. Chronic persistent atrial fibrillation anticoagulated with Xarelto 9. Diabetes mellitus type 2 continue the tradjenta. Add sliding scale coverage 10. Candidiasis of the abdominal fold. Add nystatin cream 3 times a day 11. Elevated LFTs likely related to fluid congestion. She had been evaluated by surgical service on last admission due to history of gallstone and elevated total bilirubin. No surgical intervention required at that time. Patient denies any right upper quadrant abdominal pain or nausea. Abdominal ultrasound completed showing cholelithiasis and possible cholecystitis. Surgical service has been consulted. LFTs have normalized. Total bilirubin 1.6. Patient seen by surgical service. Likely elevated LFTs and total bili related to liver congestion. They're recommending no surgical intervention at this time 12. Hypermagnesemia: Repeat magnesium level normal at 2.1 13. Hypokalemia patient receiving potassium supplement GI prophylaxis Protonix and DVT prophylaxis Xarelto Await further recommendations per cardiology and nephrology. Consult physical therapy I performed an examination of the patient and discussed their management with the physician [employer] Supervisor. I have reviewed the Physician [employer] Supervisor's notes and agree with the documented findings and plan of care
[2018-06-19 11:25] LABS: Glucose,Whole Blood 182 mg/dL (75-99)
[2018-06-19] MEDS: METOPROLOL TARTRATE 25 MG TAB PO SCH (13:20)
--- NOTE | 2018-06-19 14:30 | P.PN ---
Subjective Progress Note Date: 06/19/18 This is a pleasant 83-year-old female who follows regularly with Dr. May in the office. She has a known history of chronic kidney disease, chronic persistent atrial fibrillation, congestive heart failure, diastolic in nature, and again presented to the hospital with symptoms of progressively worsening shortness of breath with seated peripheral edema. Her ejection fraction by last echo performed at was 45% with moderate regurgitation. Patient does have history also of prior DVT and Jay[place] filter placement. Patient was seen and examined this morning, she continues to diurese well. Her creatinine today is 2.8 weight is down 1 kg. Patient's edema is overall improving. She does state that she feels better overall, sitting up in the chair at the time of my examination. 06/19/2018 Patient seen and examined this morning, continues to diurese very well. Patient is feeling overall significantly better today. White blood cell count 7.0, hemoglobin 11.9, platelet count 166. Sodium 141, potassium 3.4, BUN 59 and creatinine 2.5. She will receive one more dose of IV Lasix, then we will change her over to Lasix 80 mg 1 tablet by mouth twice a day. Objective - Vital Signs Vital signs: Vital Signs Temp 97.7 F 06/19/18 08:00 Pulse 106 H 06/19/18 08:00 Resp 20 06/19/18 08:00 BP 118/72 06/19/18 08:00 Pulse Ox 97 06/19/18 08:00 Intake & Output 06/18/18 06/19/18 06/19/18 18:59 06:59 18:59 Intake Total 360 480 Output Total 1200 900 900 Balance -840 -900 -420 Weight 80.1 kg Intake: Oral 360 480 Output: Urine 1200 900 900 Other: Voiding Method Indwelling Catheter Indwelling Catheter # Bowel Movements 1 - Exam PHYSICAL EXAMINATION: GENERAL: 83-year-old female in no acute distress at the time of my examination HEENT: Head is atraumatic, normocephalic. Pupils equal, round. Sclera anicteric. Conjunctiva are clear. Mucous membranes of the mouth are moist. Neck is supple. There is no elevated jugular venous pressure. Carotid bruit is heard. HEART EXAMINATION: S1-S2 irregularly irregular a holosystolic murmur is heard. CHEST EXAMINATION: Lungs are clear to auscultation and precussion. No chest wall tenderness is noted on palpation or with deep breathing. ABDOMEN: Soft, nontender. Bowel sounds are heard. No organomegaly noted. EXTREMITIES: 2+ peripheral pulses with 1+ evidence of peripheral edema and no calf tenderness noted. NEUROLOGIC patient is awake, alert and oriented X3. . - Labs CBC & Chem 7: 06/19/18 05:33 06/19/18 05:33 Labs: Abnormal Lab Results - Last 24 Hours (Table) 06/18/18 06/18/18 06/19/18 Range/Units 16:21 20:34 05:33 RBC 3.44 L (3.80-5.40) m/uL MCV 116.7 H (80.0-100.0) fL MCHC 29.6 L (31.0-37.0) g/dL RDW 18.0 H (11.5-15.5) % Potassium (3.5-5.1) mmol/L BUN (7-17) mg/dL Creatinine (0.52-1.04) mg/dL Glucose (74-99) mg/dL POC Glucose (mg/dL) 148 H 142 H (75-99) mg/dL Total Bilirubin (0.2-1.3) mg/dL Total Protein (6.3-8.2) g/dL Albumin (3.5-5.0) g/dL 06/19/18 06/19/18 06/19/18 Range/Units 05:33 05:52 11:20 RBC (3.80-5.40) m/uL MCV (80.0-100.0) fL MCHC (31.0-37.0) g/dL RDW (11.5-15.5) % Potassium 3.4 L (3.5-5.1) mmol/L BUN 59 H (7-17) mg/dL Creatinine 2.59 H (0.52-1.04) mg/dL Glucose 103 H (74-99) mg/dL POC Glucose (mg/dL) 113 H 182 H (75-99) mg/dL Total Bilirubin 1.6 H (0.2-1.3) mg/dL Total Protein 6.0 L (6.3-8.2) g/dL Albumin 3.1 L (3.5-5.0) g/dL Assessment and Plan Plan: Assessment and plan #1 diastolic congestive heart failure acute on chronic #2 acute on chronic kidney disease #3 chronic persistent atrial fibrillation #4 history of DVT with prior Toyin filter #5 severe MR Plan From cardiology's perspective, we'll continue one more dose of IV Lasix, repeat chest x-ray suggested correlation for pulmonary venous hypertension and interstitial edema. Patient then will be on 80 mg of Lasix by mouth twice a day. Check lytes BUN and creatinine in the morning. DNP note has been reviewed, I agree with a documented findings and plan of care. Patient was seen and examined.
--- NOTE | 2018-06-19 14:48 | P.PN ---
Subjective Progress Note Date: 06/19/18 83-year-old female sitting up in a chair family at bedside case reviewer at bedside discussing with patient palliative care at the family's request and patient patient states is less shortness of breath with decrease edema in the left lower extremity. Surgery has no plans for a surgical intervention at this time and patient has declined Objective - Vital Signs Vital signs: Vital Signs Temp 97.7 F 06/19/18 08:00 Pulse 106 H 06/19/18 08:00 Resp 20 06/19/18 08:00 BP 118/72 06/19/18 08:00 Pulse Ox 97 06/19/18 08:00 Intake & Output 06/18/18 06/19/18 06/19/18 18:59 06:59 18:59 Intake Total 360 480 Output Total 1200 900 900 Balance -840 -900 -420 Weight 80.1 kg Intake: Oral 360 480 Output: Urine 1200 900 900 Other: Voiding Method Indwelling Catheter Indwelling Catheter # Bowel Movements 1 - Exam Physical exam 83-year-old sitting up in a chair pleasant cooperative stating that she is interested in no further aggressive treatment anxious to go home Lungs crackles at the bases otherwise clear Heart S1-S2 audible irregular monitor A. fib rate control denying chest pain Abdomen soft nontender nondistended Extremities decrease edema to the bilateral lower extremity - Labs CBC & Chem 7: 06/19/18 05:33 06/19/18 05:33 Labs: Abnormal Lab Results - Last 24 Hours (Table) 06/18/18 06/18/18 06/19/18 Range/Units 16:21 20:34 05:33 RBC 3.44 L (3.80-5.40) m/uL MCV 116.7 H (80.0-100.0) fL MCHC 29.6 L (31.0-37.0) g/dL RDW 18.0 H (11.5-15.5) % Potassium (3.5-5.1) mmol/L BUN (7-17) mg/dL Creatinine (0.52-1.04) mg/dL Glucose (74-99) mg/dL POC Glucose (mg/dL) 148 H 142 H (75-99) mg/dL Total Bilirubin (0.2-1.3) mg/dL Total Protein (6.3-8.2) g/dL Albumin (3.5-5.0) g/dL 06/19/18 06/19/18 06/19/18 Range/Units 05:33 05:52 11:20 RBC (3.80-5.40) m/uL MCV (80.0-100.0) fL MCHC (31.0-37.0) g/dL RDW (11.5-15.5) % Potassium 3.4 L (3.5-5.1) mmol/L BUN 59 H (7-17) mg/dL Creatinine 2.59 H (0.52-1.04) mg/dL Glucose 103 H (74-99) mg/dL POC Glucose (mg/dL) 113 H 182 H (75-99) mg/dL Total Bilirubin 1.6 H (0.2-1.3) mg/dL Total Protein 6.0 L (6.3-8.2) g/dL Albumin 3.1 L (3.5-5.0) g/dL Assessment and Plan Assessment: Impression Urinary retention status post Erickson catheter placement Acute kidney injury secondary to ATN due to prerenal syndrome and urinary retention nephrology following Present on admission shortness of breath with increase edema to the lower extremity suspect due to acute on chronic systolic congestive heart failure exacerbation echo from November 2017 EF 40-45% Moderate to severe mitral regurgitation Hyperkalemia Chronic persistent atrial fibrillation on anticoagulation Xarelto Chronic kidney disease stage IV secondary to cardiorenal syndrome Present on admission mildly elevated bilirubin 1.5 Known cholelithiasis As noted on ultrasound of the abdomen Elevated bilirubin, transient right upper quadrant tenderness with an ultrasound findings suspect due to right heart failure Chronic history of gallstones with no plan surgical intervention at this time Plan Continue to monitor patient symptoms patient's requesting conservative management at this time given cardiac history Will follow with you DVT and GI prophylaxis No evidence of an acute surgical abdomen at this time Patient is interested in palliative care Surgical consultation dictated for Dr.bhesania valencia on behalf of Dr. bruno The above impression and plan of care have been discussed and directed by signing physician. Jenna Queen nurse practitioner acting as scribe for signing physician.
[2018-06-19 16:24] LABS: Glucose,Whole Blood 140 mg/dL (75-99)
--- NOTE | 2018-06-19 17:26 | P.PN ---
Subjective Progress Note Date: 06/19/18 Principal diagnosis: Acute exacerbation of CHF related to acute on chronic systolic heart failure, acute hypoxic respiratory failure related to above, acute on chronic renal failure, hyperkalemia, severe mitral regurgitation, chronic atrial fibrillation on anticoagulation, type 2 diabetes mellitus, coronary daily. , electrolyte imbalance with hypomagnesemia and hypokalemia/hyperkalemia 06/19/2018, patient seen eval examined during the rounds clinically doing much better patient is undergoing aggressive diuresis tolerating IV Lasix fairly well swelling in the lower extremity has improved, denies any chest pain labs reviewed medications reviewed, last chest x-ray performed on June 18 reviewed interstitial edema noted along with a small right pleural effusion Objective - Vital Signs Vital signs: Vital Signs Temp 97.7 F 06/19/18 08:00 Pulse 97 06/19/18 16:00 Resp 18 06/19/18 16:00 BP 109/64 06/19/18 16:00 Pulse Ox 97 06/19/18 16:00 Intake & Output 06/18/18 06/19/18 06/19/18 18:59 06:59 18:59 Intake Total 360 480 Output Total 1200 900 900 Balance -840 -900 -420 Weight 80.1 kg Intake: Oral 360 480 Output: Urine 1200 900 900 Other: Voiding Method Indwelling Catheter Indwelling Catheter # Bowel Movements 1 - Constitutional General appearance: Present: average body habitus, cooperative, disheveled, mild distress - EENT Eyes: Present: PERRLA, normal appearance ENT: Present: normal oropharynx Ears: bilateral: normal - Neck Neck: Present: normal ROM Carotids: bilateral: upstroke normal - Respiratory Respiratory: bilateral: rales - Cardiovascular Rhythm: irregularly irregular Heart sounds: normal: S1, S2 - Gastrointestinal General gastrointestinal: Present: normal bowel sounds, soft - Neurologic Neurologic: Present: CNII-XII intact - Musculoskeletal Musculoskeletal: Present: gait normal, generalized weakness, strength equal bilaterally - Psychiatric Psychiatric: Present: A&O x's 3, appropriate affect, intact judgment & insight - Labs CBC & Chem 7: 06/19/18 05:33 06/19/18 05:33 Labs: Abnormal Lab Results - Last 24 Hours (Table) 06/18/18 06/19/18 06/19/18 Range/Units 20:34 05:33 05:33 RBC 3.44 L (3.80-5.40) m/uL MCV 116.7 H (80.0-100.0) fL MCHC 29.6 L (31.0-37.0) g/dL RDW 18.0 H (11.5-15.5) % Potassium 3.4 L (3.5-5.1) mmol/L BUN 59 H (7-17) mg/dL Creatinine 2.59 H (0.52-1.04) mg/dL Glucose 103 H (74-99) mg/dL POC Glucose (mg/dL) 142 H (75-99) mg/dL Total Bilirubin 1.6 H (0.2-1.3) mg/dL Total Protein 6.0 L (6.3-8.2) g/dL Albumin 3.1 L (3.5-5.0) g/dL 06/19/18 06/19/18 06/19/18 Range/Units 05:52 11:20 16:18 RBC (3.80-5.40) m/uL MCV (80.0-100.0) fL MCHC (31.0-37.0) g/dL RDW (11.5-15.5) % Potassium (3.5-5.1) mmol/L BUN (7-17) mg/dL Creatinine (0.52-1.04) mg/dL Glucose (74-99) mg/dL POC Glucose (mg/dL) 113 H 182 H 140 H (75-99) mg/dL Total Bilirubin (0.2-1.3) mg/dL Total Protein (6.3-8.2) g/dL Albumin (3.5-5.0) g/dL - Imaging and Cardiology Chest x-ray: report reviewed, image reviewed (Finding as noted above) Assessment and Plan Assessment: Acute exacerbation of CHF related to acute on chronic systolic heart failure baseline ejection fraction of 40% Acute pulmonary edema related to above Small right-sided pleural effusion not enough to tap Chronic persistent asthma mild to intermittent Chronic renal failure with acute worsening Electrolyte imbalance with hyper and hypokalemia followed by hypomagnesemia slowly resolving Plan: Continue gentle diuresis Continue deep breathing sense incentive spirometry Taper and DC oxygen as tolerated Continue anticoagulation as planned Monitor renal functions closely No Plan for thoracentesis Further recommendations pending plan of care as per clinical response of the patient Time with Patient: Greater than 30
[2018-06-19] MEDS: FUROSEMIDE 80 MG TAB PO SCH (17:44)
[2018-06-19 21:10] LABS: Glucose,Whole Blood 163 mg/dL (75-99)
--- NOTE | 2018-06-19 21:49 | PN ---
PROGRESS NOTE The patient is seen for followup for acute kidney injury and chronic kidney disease. Currently, she feels well. She remains on IV push Lasix. Patient will soon be discharged home. She denies any significant complaints. EXAMINATION: This morning, blood pressure was 107/61, heart rate 88 per minute. Patient is afebrile. Examination of the heart S1, S2. Examination of lungs bilateral breath sounds are heard. Abdomen is soft, nontender. Examination of lower extremity shows trace edema. GL[employer]CER[employer] OPERATOR exam is grossly intact. LABS SHOW: From today, potassium 3.4, sodium 141, BUN 59, serum creatinine 2.59. ASSESSMENT: 1. Acute kidney injury mainly cardiorenal, currently improved and renal function continues to improve. May continue with the IV Lasix for now until discharge. The patient will be discharged home on the on torsemide. 2. 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 3. Hyperkalemia on admission. Currently, potassium is low and is being replaced. 4. Hypertension, currently controlled. 5. Type 2 diabetes. PLAN: To DC Erickson catheter and do voiding trials. The patient will be switched to higher dose of torsemide upon discharge. If patient is discharged on Lasix, she will need at least 80 mg twice a day. However, I feel that she has responded better to a longer acting loop diuretics in a form of torsemide as opposed to Lasix. MMODL / IJN: [id number] /
[2018-06-20] MEDS: INSULIN ASPART 100 UNIT/ML 1 ML 10 ML VIAL SQ SCH ×4 (05:53→21:30)
[2018-06-20 05:54] LABS: Glucose,Whole Blood 120 mg/dL (75-99)
[2018-06-20] MEDS: PANTOPRAZOLE 40 MG TABLET PO SCH (05:57)
[2018-06-20 06:21] LABS: Anisocytosis Slight; Basophils % (A) 0 %; Eosinophils # (A) 0.2 k/uL (0-0.7); Eosinophils % (A) 3 %; HCT 39.3 % (34.0-46.0); HGB 12.1 gm/dL (11.4-16.0); Hypochromasia Marked; Lymphocytes # (A) 1.4 k/uL (1.0-4.8); Lymphocytes % (A) 18 %; MCH 35.8 pg (25.0-35.0); MCHC 30.7 g/dL (31.0-37.0); MCV 116.6 fL (80.0-100.0); Macrocytosis Marked; Mean Platelet Volume 8.1; Monocytes # (A) 0.4 k/uL (0-1.0); Monocytes % (A) 5 %; Neutrophils # (A) 5.1 k/uL (1.3-7.7); Neutrophils % (A) 70 %; Platelet Count 167 k/uL (150-450); RBC 3.37 m/uL (3.80-5.40); RDW 17.8 % (11.5-15.5); WBC 7.4 k/uL (3.8-10.6)
[2018-06-20 06:30] LABS: Albumin 3.1 g/dL (3.5-5.0); Calcium 9.3 mg/dL (8.4-10.2); Potassium 3.5 mmol/L (3.5-5.1); Total Bilirubin 1.9 mg/dL (0.2-1.3); Total Protein 5.9 g/dL (6.3-8.2)
[2018-06-20] MEDS: DORZOLAMIDE HCL 2% DROPS 10 ML BTL BOTH EYES SCH ×2 (08:33→21:36)
[2018-06-20] MEDS: traMADol 50 MG TAB PO SCH ×3 (08:34→21:24)
[2018-06-20] MEDS: BRIMONIDINE TARTRATE 0.2% DROPS 5 ML BTL BOTH EYES SCH ×2 (08:34→21:37)
[2018-06-20] MEDS: FERROUS SULFATE 325 MG TAB PO SCH (08:36)
[2018-06-20] MEDS: ALLOPURINOL 100 MG TAB PO SCH (08:36)
[2018-06-20] MEDS: FUROSEMIDE 80 MG TAB PO SCH ×2 (08:36→17:00)
[2018-06-20] MEDS: DOCUSATE 100 MG CAP PO SCH ×2 (08:36→21:28)
[2018-06-20] MEDS: hydrALAZINE HCL 25 MG TAB PO SCH ×2 (08:36→21:26)
[2018-06-20] MEDS: ISOSORBIDE MONONITRATE ER 30 MG TAB.ER.24H PO SCH (08:36)
[2018-06-20] MEDS: SODIUM BICARBONATE TAB 650 MG TAB PO SCH ×2 (08:37→21:28)
[2018-06-20] MEDS: CHOLECALCIFEROL 1,000 UNIT TAB PO SCH (08:37)
[2018-06-20] MEDS: RIVAROXABAN 10 MG TAB PO SCH (08:37)
[2018-06-20] MEDS: METOPROLOL TARTRATE 50 MG TAB PO SCH ×2 (08:37→21:23)
[2018-06-20] MEDS: LINAGLIPTIN 5 MG TABLET PO SCH (08:37)
[2018-06-20] MEDS: MIDODRINE 5 MG TAB PO SCH ×3 (08:37→21:27)
[2018-06-20] MEDS: NYSTATIN 100,000UNIT/GM CREAM 30 GM TUBE TOPICAL SCH ×3 (08:38→21:36)
[2018-06-20] MEDS: PSYLLIUM HUSK 100% 6 GM PACKET PO SCH ×2 (08:38→20:22)
[2018-06-20] MEDS: AMMONIUM LACTATE 12% CREAM 140 GM TUBE TOPICAL SCH ×2 (08:38→21:33)
[2018-06-20] MEDS: VIT A,C & E-LUTEIN-MINERALS 1 EACH TAB PO SCH ×2 (11:08→21:22)
[2018-06-20] MEDS: METOPROLOL TARTRATE 25 MG TAB PO SCH (11:08)
--- NOTE | 2018-06-20 11:32 | P.PN ---
Subjective Progress Note Date: 06/20/18 This is a 83-year-old female with a known past medical history of congestive heart failure with a known EF of 40-45%, diabetes mellitus, chronic kidney disease, uterine cancer status post hysterectomy, DVT with Toyin filter, chronic atrial fibrillation anticoagulated with Xarelto. Patient presents to the emergency room with complaints of worsening shortness of breath and lower extremity edema. She was just recently discharged from [facility] on June 07 at that time had been treated for an acute CHF exacerbation. She was discharged on torsemide 10 mg twice a day. She went to see her PCP, Dr. Nathan on Monday and the torsemide was changed to Lasix to 40 mg twice a day. However patient's symptoms continued to worsen she's had about a 5 pound weight Gain over the last week. Also had elevated potassium of 6.3 on admission. Creatinine is also elevated at 3.71 and his increased to 3.83. Consulted been placed for cardiology, nephrology and pulmonary service. Nephrology has increased the Lasix to 80 mg IV every 12 hours. Patient is still short of breath evidence of lower extremity edema and fatigued. She denies any fever, chills, sweats. Denies any chest pain. Denies any nausea vomiting bowel movement changes. She also had evidence of urinary retention and Erickson catheter inserted in the ER. Patient being treated for an acute CHF exacerbation. BNP was elevated at 26,300 on admission chest x-ray shows a small right pleural effusion and cardiomyopathy. EKG had shown atrial fibrillation with a heart rate of 111 On 06/16/2018 patient was seen and examined on the third telemetry floor she is alert and oriented 3 she is complaining of abdominal discomfort she is complaining of shortness of breath with some improvement since yesterday she is complaining of bilateral lower extremity edema otherwise she denies any complaints there is no fever or chills no headache or dizziness no chest pain no cough no nausea or vomiting no constipation or diarrhea and no urinary symptoms Erickson catheter is in. On 06/17/2018 patient is currently sitting up in chair alert and oriented 3. Patient states she is feeling improved from yesterday. Patient has tolerated breakfast today. Patient is still making good urine output after Erickson catheter. At this time patient denies chest pain or shortness of breath. Patient down from 82.5 kg to 78.5 kg. Patient remains on IV Lasix 80 mg every 12 hours 06/18/2018 patient is sitting up at bedside chair. She reports she is feeling better. Shortness of breath has improved. Yesterday she was able to get to the bathroom on her own with support observing only. Lower extremity edema improving. She remains on the IV Lasix 80 every 12. Denies any chest pain. Denies any nausea or vomiting. She is asking when the Erickson catheter will be removed. 06/19/2018 H date patient is starting to feel better. Less shortness of breath left lower extremity edema. Her weight has increased from 78.5 kg to 80.1 kg. Chest x-ray showing pulmonary venous hypertension and interstitial edema. Discussed with cardiology service and likely they will continue IV Lasix today. Therefore we will keep Erickson catheter in for patient's comfort. Physical therapy has been consulted. Creatinine is down to 2.59. Patient also seen by surgical service regarding her gallstones. No surgical intervention is scheduled for. Likely patient's LFTs and total bilirubin were elevated due to liver congestion. Patient denies chest pain. Denies any nausea vomiting. Reports regular bowel movements. 06/20/2018 patient is currently sitting up in chair alert and oriented 3. Patient stating she is feeling much improved. Patient has been switched to by mouth Lasix. Erickson catheter has been removed today. Will monitor for urinary retention. At this time patient denies chest pain or shortness breath. Patient denies any nausea vomiting or diarrhea. Patient denies any urinary burning or frequency Objective - Vital Signs Vital signs: Vital Signs Temp 97.0 F L 06/20/18 08:30 Pulse 88 06/20/18 11:09 Resp 20 06/20/18 11:09 BP 104/70 06/20/18 11:09 Pulse Ox 98 06/20/18 11:09 Intake & Output 06/19/18 06/20/18 06/20/18 18:59 06:59 18:59 Intake Total 720 300 240 Output Total 900 900 Balance -180 -600 240 Weight 79.8 kg Intake: Oral 720 300 240 Output: Urine 900 900 Other: Voiding Method Bedside Commode # Voids 2 - Exam Head normocephalic and atraumatic Neck supple no JVD no goiter Lungs crackles at the bases Heart irregular. A. fib on monitor, no gallops no murmurs Abdomen is soft with mild diffuse tenderness no organomegaly no palpable masses no rigidity or rebound with positive bowel sounds Extremities +2 bilateral lower extremity edema Neuro alert and orientated to 3 no gross focal deficit - Labs CBC & Chem 7: 06/20/18 05:42 06/20/18 05:42 Labs: Abnormal Lab Results - Last 24 Hours (Table) 06/19/18 06/19/18 06/20/18 Range/Units 16:18 20:51 05:42 RBC 3.37 L (3.80-5.40) m/uL MCV 116.6 H (80.0-100.0) fL MCH 35.8 H (25.0-35.0) pg MCHC 30.7 L (31.0-37.0) g/dL RDW 17.8 H (11.5-15.5) % BUN (7-17) mg/dL Creatinine (0.52-1.04) mg/dL Glucose (74-99) mg/dL POC Glucose (mg/dL) 140 H 163 H (75-99) mg/dL Total Bilirubin (0.2-1.3) mg/dL Total Protein (6.3-8.2) g/dL Albumin (3.5-5.0) g/dL 06/20/18 06/20/18 Range/Units 05:42 05:51 RBC (3.80-5.40) m/uL MCV (80.0-100.0) fL MCH (25.0-35.0) pg MCHC (31.0-37.0) g/dL RDW (11.5-15.5) % BUN 58 H (7-17) mg/dL Creatinine 2.54 H (0.52-1.04) mg/dL Glucose 117 H (74-99) mg/dL POC Glucose (mg/dL) 120 H (75-99) mg/dL Total Bilirubin 1.9 H (0.2-1.3) mg/dL Total Protein 5.9 L (6.3-8.2) g/dL Albumin 3.1 L (3.5-5.0) g/dL Assessment and Plan Assessment: 1. Acute on chronic systolic CHF exacerbation: Patient is currently on IV Lasix 80 mg every 12 hours. Cardiology and nephrology are following. Echo from November showed an EF of 40-45% with moderate to severe mitral regurgitation. Continue to monitor daily weights and I's and O's. Discussed with cardiology will continue IV Lasix. Chest x-ray showing evidence of interstitial edema. IV Lasix has been switched to by mouth 80 mg twice a day 2. Acute kidney injury secondary to ATN due to cardiorenal syndrome and urinary retention. Nephrology following. Creatinine trending down. 3. Urinary retention status post Erickson catheter placement. Catheter has been removed and patient will monitor closely for urinary retention 4. Hyperkalemia secondary to acute kidney injury and metabolic acidosis. Resolved 5. Metabolic acidosis secondary to acute kidney injury. Nephrology has adjusted the sodium bicarbonate dosage 6. History of severe mitral regurgitation 7. Chronic kidney disease stage IV secondary to cardiorenal syndrome. Nephrology following. 8. Chronic persistent atrial fibrillation anticoagulated with Xarelto 9. Diabetes mellitus type 2 continue the tradjenta. Add sliding scale coverage 10. Candidiasis of the abdominal fold. Add nystatin cream 3 times a day 11. Elevated LFTs likely related to fluid congestion. She had been evaluated by surgical service on last admission due to history of gallstone and elevated total bilirubin. No surgical intervention required at that time. Patient denies any right upper quadrant abdominal pain or nausea. Abdominal ultrasound completed showing cholelithiasis and possible cholecystitis. Surgical service has been consulted. LFTs have normalized. Total bilirubin 1.6. Patient seen by surgical service. Likely elevated LFTs and total bili related to liver congestion. They're recommending no surgical intervention at this time 12. Hypermagnesemia: Repeat magnesium level normal at 2.1 13. Hypokalemia patient receiving potassium supplement GI prophylaxis Protonix and DVT prophylaxis Xarelto Await further recommendations per cardiology and nephrology. Consult physical therapy I performed an examination of the patient and discussed their management with the Nurse Practitioner. I have reviewed the Nurse Practitioner's notes and agree with the documented findings and plan of care
[2018-06-20 11:47] LABS: Glucose,Whole Blood 215 mg/dL (75-99)
--- NOTE | 2018-06-20 12:45 | P.PN ---
Progress Note - Text Progress Note Date: 06/20/18 Patient seen sitting up in a chair. Patient states feeling much better today denying abdominal pain. No plan for surgical intervention at this time. Patient continues to not be interested in a surgical procedure involving known cholelithiasis in a patient who has a history of gallstones. At this time we' ll sign off and re-eval as needed. Dictating out a progress note for Dr. roberts rounding on behalf of Dr. Vuong The above impression and plan of care have been discussed and directed by signing physician. Jenna Queen nurse practitioner acting as scribe for signing physician.
--- NOTE | 2018-06-20 16:02 | P.PN ---
Subjective Progress Note Date: 06/20/18 This is a pleasant 83-year-old female who follows regularly with Dr. May in the office. She has a known history of chronic kidney disease, chronic persistent atrial fibrillation, congestive heart failure, diastolic in nature, and again presented to the hospital with symptoms of progressively worsening shortness of breath with seated peripheral edema. Her ejection fraction by last echo performed at was 45% with moderate regurgitation. Patient does have history also of prior DVT and Tibbie filter placement. Patient was seen and examined this morning, she continues to diurese well. Her creatinine today is 2.8 weight is down 1 kg. Patient's edema is overall improving. She does state that she feels better overall, sitting up in the chair at the time of my examination. 06/19/2018 Patient seen and examined this morning, continues to diurese very well. Patient is feeling overall significantly better today. White blood cell count 7.0, hemoglobin 11.9, platelet count 166. Sodium 141, potassium 3.4, BUN 59 and creatinine 2.5. She will receive one more dose of IV Lasix, then we will change her over to Lasix 80 mg 1 tablet by mouth twice a day. 06/20/2018 Patient seen and examined this morning, feeling well, slept well last night, hemodynamically stable. Doing well with physical therapy. On oral diuretics. Objective - Vital Signs Vital signs: Vital Signs Temp 97.0 F L 06/20/18 08:30 Pulse 88 06/20/18 11:09 Resp 20 06/20/18 11:09 BP 104/70 06/20/18 11:09 Pulse Ox 98 06/20/18 11:09 Intake & Output 06/19/18 06/20/18 06/20/18 18:59 06:59 18:59 Intake Total 720 300 240 Output Total 900 900 200 Balance -180 -600 40 Weight 79.8 kg Intake: Oral 720 300 240 Output: Urine 900 900 200 Other: Voiding Method Bedside Commode # Voids 2 - Exam PHYSICAL EXAMINATION: GENERAL: 83-year-old female in no acute distress at the time of my examination HEENT: Head is atraumatic, normocephalic. Pupils equal, round. Sclera anicteric. Conjunctiva are clear. Mucous membranes of the mouth are moist. Neck is supple. There is no elevated jugular venous pressure. Carotid bruit is heard. HEART EXAMINATION: S1-S2 irregularly irregular a holosystolic murmur is heard. CHEST EXAMINATION: Lungs are clear to auscultation and precussion. No chest wall tenderness is noted on palpation or with deep breathing. ABDOMEN: Soft, nontender. Bowel sounds are heard. No organomegaly noted. EXTREMITIES: 2+ peripheral pulses with 1+ evidence of peripheral edema and no calf tenderness noted. NEUROLOGIC patient is awake, alert and oriented X3. . - Labs CBC & Chem 7: 06/20/18 05:42 06/20/18 05:42 Labs: Abnormal Lab Results - Last 24 Hours (Table) 06/19/18 06/19/18 06/20/18 Range/Units 16:18 20:51 05:42 RBC 3.37 L (3.80-5.40) m/uL MCV 116.6 H (80.0-100.0) fL MCH 35.8 H (25.0-35.0) pg MCHC 30.7 L (31.0-37.0) g/dL RDW 17.8 H (11.5-15.5) % BUN (7-17) mg/dL Creatinine (0.52-1.04) mg/dL Glucose (74-99) mg/dL POC Glucose (mg/dL) 140 H 163 H (75-99) mg/dL Total Bilirubin (0.2-1.3) mg/dL Total Protein (6.3-8.2) g/dL Albumin (3.5-5.0) g/dL 06/20/18 06/20/18 06/20/18 Range/Units 05:42 05:51 11:33 RBC (3.80-5.40) m/uL MCV (80.0-100.0) fL MCH (25.0-35.0) pg MCHC (31.0-37.0) g/dL RDW (11.5-15.5) % BUN 58 H (7-17) mg/dL Creatinine 2.54 H (0.52-1.04) mg/dL Glucose 117 H (74-99) mg/dL POC Glucose (mg/dL) 120 H 215 H (75-99) mg/dL Total Bilirubin 1.9 H (0.2-1.3) mg/dL Total Protein 5.9 L (6.3-8.2) g/dL Albumin 3.1 L (3.5-5.0) g/dL Assessment and Plan Plan: Assessment and plan #1 diastolic congestive heart failure acute on chronic #2 acute on chronic kidney disease #3 chronic persistent atrial fibrillation #4 history of DVT with prior Toyin filter #5 severe MR Plan From cardiology's perspective, we will continue current medications. Plan for discharge home in 24-48 hours DNP note has been reviewed, I agree with a documented findings and plan of care. Patient was seen and examined.
[2018-06-20 17:07] LABS: Glucose,Whole Blood 99 mg/dL (75-99)
[2018-06-20 20:57] LABS: Glucose,Whole Blood 151 mg/dL (75-99)
--- NOTE | 2018-06-21 00:14 | PN ---
PROGRESS NOTE The patient is seen for followup for chronic kidney disease and acute kidney injury. Currently, she is sitting up in bed. A Erickson catheter was discontinued this morning. The patient denies any significant complaints. She is complaining of weakness, but is able to ambulate with therapy. On examination this morning, blood pressure was 116/71, heart rate of 96 per minute. Patient is afebrile. Examination of the heart S1, S2. Examination lungs bilateral breath sounds are heard. Abdomen is soft, nontender. Examination of the lower extremities shows trace edema bilaterally. [employer] exam is grossly intact. LABS: Show sodium of 139, potassium 3.5, chloride 103, BUN 58, serum creatinine 2.54, hemoglobin 12.1 g/dL. ASSESSMENT: 1. Chronic kidney disease NKF stage IV renal function at baseline. 2. Acute kidney injury, mainly cardiorenal associated fluid overload, currently improved. 3. Congestive heart failure, diastolic dysfunction, improving. Lasix is currently at 80 mg p.o. b.i.d. I will give her 1 dose of Zaroxolyn. 4. Urinary retention. A Erickson catheter was discontinued this morning. We will continue to monitor postvoid residual volumes. 5. Metabolic acidosis. Maintained on oral sodium bicarb. I will decrease the dose and this may also help with decreasing the edema. PLAN: Decrease sodium bicarb, one dose of Zaroxolyn 5 mg p.o. in a.m. MMODL / HARRISONN: [id number] /
[2018-06-21] MEDS: PANTOPRAZOLE 40 MG TABLET PO SCH (05:53)
[2018-06-21] MEDS: INSULIN ASPART 100 UNIT/ML 1 ML 10 ML VIAL SQ SCH ×4 (05:54→21:14)
[2018-06-21 06:03] LABS: Glucose,Whole Blood 107 mg/dL (75-99)
[2018-06-21 06:24] LABS: Anisocytosis Slight; Basophils % (A) 0 %; Eosinophils # (A) 0.2 k/uL (0-0.7); Eosinophils % (A) 4 %; HCT 37.6 % (34.0-46.0); HGB 11.5 gm/dL (11.4-16.0); Hypochromasia Marked; Lymphocytes # (A) 1.3 k/uL (1.0-4.8); Lymphocytes % (A) 20 %; MCH 35.5 pg (25.0-35.0); MCHC 30.5 g/dL (31.0-37.0); MCV 116.3 fL (80.0-100.0); Macrocytosis Marked; Mean Platelet Volume 7.6; Monocytes # (A) 0.3 k/uL (0-1.0); Monocytes % (A) 5 %; Neutrophils # (A) 4.4 k/uL (1.3-7.7); Neutrophils % (A) 68 %; Platelet Count 154 k/uL (150-450); RBC 3.23 m/uL (3.80-5.40); RDW 17.5 % (11.5-15.5); WBC 6.4 k/uL (3.8-10.6)
[2018-06-21 06:41] LABS: Albumin 2.8 g/dL (3.5-5.0); Calcium 9.1 mg/dL (8.4-10.2); Potassium 3.5 mmol/L (3.5-5.1); Total Bilirubin 1.4 mg/dL (0.2-1.3); Total Protein 5.6 g/dL (6.3-8.2)
[2018-06-21 07:27] LABS: Target Cells Present
[2018-06-21] MEDS: BRIMONIDINE TARTRATE 0.2% DROPS 5 ML BTL BOTH EYES SCH ×2 (08:11→19:46)
[2018-06-21] MEDS: RIVAROXABAN 10 MG TAB PO SCH (08:12)
[2018-06-21] MEDS: DORZOLAMIDE HCL 2% DROPS 10 ML BTL BOTH EYES SCH ×2 (08:12→21:14)
[2018-06-21] MEDS: SODIUM BICARBONATE TAB 650 MG TAB PO SCH ×2 (08:12→19:46)
[2018-06-21] MEDS: CHOLECALCIFEROL 1,000 UNIT TAB PO SCH (08:12)
[2018-06-21] MEDS: LINAGLIPTIN 5 MG TABLET PO SCH (08:12)
[2018-06-21] MEDS: ALLOPURINOL 100 MG TAB PO SCH (08:12)
[2018-06-21] MEDS: traMADol 50 MG TAB PO SCH ×3 (08:12→19:47)
[2018-06-21] MEDS: AMMONIUM LACTATE 12% CREAM 140 GM TUBE TOPICAL SCH ×2 (08:12→21:15)
[2018-06-21] MEDS: DOCUSATE 100 MG CAP PO SCH ×2 (08:13→19:47)
[2018-06-21] MEDS: VIT A,C & E-LUTEIN-MINERALS 1 EACH TAB PO SCH ×2 (08:13→19:46)
[2018-06-21] MEDS: METOPROLOL TARTRATE 50 MG TAB PO SCH ×2 (08:13→19:46)
[2018-06-21] MEDS: MIDODRINE 5 MG TAB PO SCH ×3 (08:13→19:47)
[2018-06-21] MEDS: FERROUS SULFATE 325 MG TAB PO SCH (08:13)
[2018-06-21] MEDS: ISOSORBIDE MONONITRATE ER 30 MG TAB.ER.24H PO SCH (08:14)
[2018-06-21] MEDS: METOLAZONE 5 MG TAB PO SCH (08:14)
[2018-06-21] MEDS: PSYLLIUM HUSK 100% 6 GM PACKET PO SCH ×2 (08:15→19:47)
[2018-06-21] MEDS: NYSTATIN 100,000UNIT/GM CREAM 30 GM TUBE TOPICAL SCH ×3 (08:17→21:15)
[2018-06-21] MEDS: CALCITRIOL 0.25 MCG CAP PO SCH (08:17)
[2018-06-21 08:23] VITALS: RESP 18
[2018-06-21] MEDS ORDERED: POTASSIUM CHLORIDE ER 20 MEQ TAB.ER PO STA (09:37)
--- NOTE | 2018-06-21 09:46 | P.PN ---
Subjective Progress Note Date: 06/21/18 Principal diagnosis: Acute exacerbation of CHF related to acute on chronic systolic heart failure, acute hypoxic respiratory failure related to above, acute on chronic renal failure, hyperkalemia, severe mitral regurgitation, chronic atrial fibrillation on anticoagulation, type 2 diabetes mellitus, coronary daily. , electrolyte imbalance with hypomagnesemia and hypokalemia/hyperkalemia 06/21/2018, patient seen eval examined during the rounds clinically patient has been doing slightly better respiratory status is improved breathing more comfortably no obvious distress present labs reviewed medications reviewed care plan discussed with the family present at bedside as well as staff, patient is being arranged for home health 06/20/2018, patient seen eval examined during the rounds respiratory status continued to improve she remains on Lasix tolerating very well swelling in the lower extremities present but has improved radiographic studies and laboratory data reviewed, patient remains short of breath, patient is being evaluated for home health she has declined extended care facility 06/19/2018, patient seen eval examined during the rounds clinically doing much better patient is undergoing aggressive diuresis tolerating IV Lasix fairly well swelling in the lower extremity has improved, denies any chest pain labs reviewed medications reviewed, last chest x-ray performed on June 18 reviewed interstitial edema noted along with a small right pleural effusion Objective - Vital Signs Vital signs: Vital Signs Temp 97.5 F L 06/21/18 08:22 Pulse 101 H 06/21/18 08:22 Resp 18 06/21/18 08:22 BP 100/69 06/21/18 08:22 Pulse Ox 95 06/21/18 08:22 Intake & Output 06/20/18 06/21/18 06/21/18 18:59 06:59 18:59 Intake Total 480 300 Output Total 300 600 Balance 180 -300 Weight 80.2 kg Intake: Oral 480 300 Output: Urine 300 600 Other: Voiding Method Toilet Bedside Commode # Voids 2 2 # Bowel Movements 1 - Exam - Constitutional General appearance: Present: average body habitus, cooperative, disheveled, mild distress - EENT Eyes: Present: PERRLA, normal appearance ENT: Present: normal oropharynx Ears: bilateral: normal - Neck Neck: Present: normal ROM Carotids: bilateral: upstroke normal - Respiratory Respiratory: bilateral: rales - Cardiovascular Rhythm: irregularly irregular Heart sounds: normal: S1, S2 - Gastrointestinal General gastrointestinal: Present: normal bowel sounds, soft - Neurologic Neurologic: Present: CNII-XII intact - Musculoskeletal Musculoskeletal: Present: gait normal, generalized weakness, strength equal bilaterally - Psychiatric Psychiatric: Present: A&O x's 3, appropriate affect, intact judgment & insight - Labs CBC & Chem 7: 06/21/18 05:45 06/21/18 05:45 Labs: Abnormal Lab Results - Last 24 Hours (Table) 06/20/18 06/20/18 06/21/18 Range/Units 11:33 20:55 05:45 RBC 3.23 L (3.80-5.40) m/uL MCV 116.3 H (80.0-100.0) fL MCH 35.5 H (25.0-35.0) pg MCHC 30.5 L (31.0-37.0) g/dL RDW 17.5 H (11.5-15.5) % BUN (7-17) mg/dL Creatinine (0.52-1.04) mg/dL Glucose (74-99) mg/dL POC Glucose (mg/dL) 215 H 151 H (75-99) mg/dL Total Bilirubin (0.2-1.3) mg/dL Total Protein (6.3-8.2) g/dL Albumin (3.5-5.0) g/dL 06/21/18 06/21/18 Range/Units 05:45 05:49 RBC (3.80-5.40) m/uL MCV (80.0-100.0) fL MCH (25.0-35.0) pg MCHC (31.0-37.0) g/dL RDW (11.5-15.5) % BUN 59 H (7-17) mg/dL Creatinine 2.39 H (0.52-1.04) mg/dL Glucose 107 H (74-99) mg/dL POC Glucose (mg/dL) 107 H (75-99) mg/dL Total Bilirubin 1.4 H (0.2-1.3) mg/dL Total Protein 5.6 L (6.3-8.2) g/dL Albumin 2.8 L (3.5-5.0) g/dL Assessment and Plan Assessment: Acute exacerbation of CHF related to acute on chronic systolic heart failure baseline ejection fraction of 40% Acute pulmonary edema related to above Small right-sided pleural effusion not enough to tap Chronic persistent asthma mild to intermittent Chronic renal failure with acute worsening Electrolyte imbalance with hyper and hypokalemia followed by hypomagnesemia slowly resolving Plan: Continue gentle diuresis Continue deep breathing sense incentive spirometry Taper and DC oxygen as tolerated Continue anticoagulation as planned Monitor renal functions closely No Plan for thoracentesis Further recommendations pending plan of care as per clinical response of the patient Time with Patient: Greater than 30
[2018-06-21] MEDS: hydrALAZINE HCL 25 MG TAB PO SCH ×2 (10:47→19:47)
[2018-06-21] MEDS: FUROSEMIDE 80 MG TAB PO SCH ×2 (10:48→16:05)
--- NOTE | 2018-06-21 10:58 | P.PN ---
Subjective Progress Note Date: 06/21/18 This is a 83-year-old female with a known past medical history of congestive heart failure with a known EF of 40-45%, diabetes mellitus, chronic kidney disease, uterine cancer status post hysterectomy, DVT with Toyin filter, chronic atrial fibrillation anticoagulated with Xarelto. Patient presents to the emergency room with complaints of worsening shortness of breath and lower extremity edema. She was just recently discharged from [facility] on June 07 at that time had been treated for an acute CHF exacerbation. She was discharged on torsemide 10 mg twice a day. She went to see her PCP, Dr. Nathan on Monday and the torsemide was changed to Lasix to 40 mg twice a day. However patient's symptoms continued to worsen she's had about a 5 pound weight Gain over the last week. Also had elevated potassium of 6.3 on admission. Creatinine is also elevated at 3.71 and his increased to 3.83. Consulted been placed for cardiology, nephrology and pulmonary service. Nephrology has increased the Lasix to 80 mg IV every 12 hours. Patient is still short of breath evidence of lower extremity edema and fatigued. She denies any fever, chills, sweats. Denies any chest pain. Denies any nausea vomiting bowel movement changes. She also had evidence of urinary retention and Erickson catheter inserted in the ER. Patient being treated for an acute CHF exacerbation. BNP was elevated at 26,300 on admission chest x-ray shows a small right pleural effusion and cardiomyopathy. EKG had shown atrial fibrillation with a heart rate of 111 On 06/16/2018 patient was seen and examined on the third telemetry floor she is alert and oriented 3 she is complaining of abdominal discomfort she is complaining of shortness of breath with some improvement since yesterday she is complaining of bilateral lower extremity edema otherwise she denies any complaints there is no fever or chills no headache or dizziness no chest pain no cough no nausea or vomiting no constipation or diarrhea and no urinary symptoms Erickson catheter is in. On 06/17/2018 patient is currently sitting up in chair alert and oriented 3. Patient states she is feeling improved from yesterday. Patient has tolerated breakfast today. Patient is still making good urine output after Erickson catheter. At this time patient denies chest pain or shortness of breath. Patient down from 82.5 kg to 78.5 kg. Patient remains on IV Lasix 80 mg every 12 hours 06/18/2018 patient is sitting up at bedside chair. She reports she is feeling better. Shortness of breath has improved. Yesterday she was able to get to the bathroom on her own with support observing only. Lower extremity edema improving. She remains on the IV Lasix 80 every 12. Denies any chest pain. Denies any nausea or vomiting. She is asking when the Erickson catheter will be removed. 06/19/2018 H date patient is starting to feel better. Less shortness of breath left lower extremity edema. Her weight has increased from 78.5 kg to 80.1 kg. Chest x-ray showing pulmonary venous hypertension and interstitial edema. Discussed with cardiology service and likely they will continue IV Lasix today. Therefore we will keep Erickson catheter in for patient's comfort. Physical therapy has been consulted. Creatinine is down to 2.59. Patient also seen by surgical service regarding her gallstones. No surgical intervention is scheduled for. Likely patient's LFTs and total bilirubin were elevated due to liver congestion. Patient denies chest pain. Denies any nausea vomiting. Reports regular bowel movements. 06/20/2018 Patient seen and examined this morning, feeling well, slept well last night, hemodynamically stable. Doing well with physical therapy. On oral diuretics. 06/21/2018 patient had a lower blood pressure this morning 94/50. Dr. Escobar was notified she recommended hold the hydralazine this morning. Patient also on Midodrin and this was given this morning. Continue to monitor blood pressures. Nephrology will reevaluate patient in the morning regarding any further adjustment in blood pressure medications. There is also discussion about placing patient back on torsemide when she is discharged. Patient's potassium 3.5 she is receiving potassium supplement. Patient's shortness of breath is improving. Weight did go back up from 79.8 kg to 80.2 kg. Zaroxolyn 5 mg daily was started this morning. Patient's Erickson catheter was removed yesterday she is urinating without evidence of urinary retention. Creatinine is down to 2.39. Cardiology has cleared patient for discharge. Patient denies any shortness of breath. Denies any lightheadedness or dizziness. Objective - Vital Signs Vital signs: Vital Signs Temp 97.5 F L 06/21/18 08:22 Pulse 101 H 06/21/18 09:00 Resp 18 06/21/18 08:22 BP 94/58 06/21/18 09:58 Pulse Ox 95 06/21/18 08:22 Intake & Output 06/20/18 06/21/18 06/21/18 18:59 06:59 18:59 Intake Total 480 300 240 Output Total 300 600 Balance 180 -300 240 Weight 80.2 kg Intake: Oral 480 300 240 Output: Urine 300 600 Other: Voiding Method Toilet Bedside Commode # Voids 2 2 1 # Bowel Movements 1 1 - Exam Head normocephalic Neck supple Lungs crackles at bases Heart irregular A. fib on monitor rate controlled Abdomen is soft nontender nondistended positive bowel sounds no hepatosplenomegaly Extremities +1 edema bilateral lower extremities Neuro alert and orientated to 3 - Labs CBC & Chem 7: 06/21/18 05:45 06/21/18 05:45 Labs: Abnormal Lab Results - Last 24 Hours (Table) 06/20/18 06/20/18 06/21/18 Range/Units 11:33 20:55 05:45 RBC 3.23 L (3.80-5.40) m/uL MCV 116.3 H (80.0-100.0) fL MCH 35.5 H (25.0-35.0) pg MCHC 30.5 L (31.0-37.0) g/dL RDW 17.5 H (11.5-15.5) % BUN (7-17) mg/dL Creatinine (0.52-1.04) mg/dL Glucose (74-99) mg/dL POC Glucose (mg/dL) 215 H 151 H (75-99) mg/dL Total Bilirubin (0.2-1.3) mg/dL Total Protein (6.3-8.2) g/dL Albumin (3.5-5.0) g/dL 06/21/18 06/21/18 Range/Units 05:45 05:49 RBC (3.80-5.40) m/uL MCV (80.0-100.0) fL MCH (25.0-35.0) pg MCHC (31.0-37.0) g/dL RDW (11.5-15.5) % BUN 59 H (7-17) mg/dL Creatinine 2.39 H (0.52-1.04) mg/dL Glucose 107 H (74-99) mg/dL POC Glucose (mg/dL) 107 H (75-99) mg/dL Total Bilirubin 1.4 H (0.2-1.3) mg/dL Total Protein 5.6 L (6.3-8.2) g/dL Albumin 2.8 L (3.5-5.0) g/dL Assessment and Plan Assessment: 1. Acute on chronic systolic CHF exacerbation: Patient currently on Lasix 80 mg by mouth twice a day. Zaroxolyn 5 mg daily started this morning. Cardiology and nephrology are following. Echo from November showed an EF of 40-45% with moderate to severe mitral regurgitation. Continue to monitor daily weights and I's and O's. 2. Acute kidney injury secondary to ATN due to cardiorenal syndrome and urinary retention. Nephrology following. Creatinine trending down. 3. Urinary retention : Erickson catheter removed. Patient urinating without evidence of urinary retention 4. Hyperkalemia secondary to acute kidney injury and metabolic acidosis. Resolved 5. Metabolic acidosis secondary to acute kidney injury. Nephrology has adjusted the sodium bicarbonate dosage. 6. History of severe mitral regurgitation 7. Chronic kidney disease stage IV secondary to cardiorenal syndrome. Nephrology following. 8. Chronic persistent atrial fibrillation anticoagulated with Xarelto 9. Diabetes mellitus type 2 continue the tradjenta. Add sliding scale coverage 10. Candidiasis of the abdominal fold. Add nystatin cream 3 times a day 11. Elevated LFTs likely related to fluid congestion. She had been evaluated by surgical service on last admission due to history of gallstone and elevated total bilirubin. No surgical intervention required at that time. Patient denies any right upper quadrant abdominal pain or nausea. Abdominal ultrasound completed showing cholelithiasis and possible cholecystitis. Surgical service has been consulted. LFTs have normalized. Total bilirubin 1.6. Patient seen by surgical service. Likely elevated LFTs and total bili related to liver congestion. They're recommending no surgical intervention at this time 12. Hypermagnesemia: Repeat magnesium level normal at 2.1 13. Hypokalemia patient receiving potassium supplement. Discussed with nephrology. At this time we'll resume patient's K Dur 30 mEq daily 14. Episode of hypotension: Discussed with nephrology. They're holding the hydralazine this morning. They have place parameters to hold hydralazine for systolic blood pressure less than 100. hold metoprolol for systolic blood pressure less than 97. Patient is also on Midodrin to help with low BP GI prophylaxis Protonix and DVT prophylaxis Xarelto Anticipate discharge possibly tomorrow, if cleared by nephrology Consult physical therapy I performed an examination of the patient and discussed their management with the physician Wire Photo Operator. I have reviewed the Physician Wire Photo Operator's notes and agree with the documented findings and plan of care
[2018-06-21 11:30] LABS: Glucose,Whole Blood 166 mg/dL (75-99)
[2018-06-21] MEDS: METOPROLOL TARTRATE 25 MG TAB PO SCH (12:18)
[2018-06-21 14:58] VITALS: BMI 32.3
[2018-06-21 16:26] LABS: Glucose,Whole Blood 128 mg/dL (75-99)
--- NOTE | 2018-06-21 16:35 | P.PN ---
Subjective Progress Note Date: 06/21/18 This is a pleasant 83-year-old female who follows regularly with Dr. May in the office. She has a known history of chronic kidney disease, chronic persistent atrial fibrillation, congestive heart failure, diastolic in nature, and again presented to the hospital with symptoms of progressively worsening shortness of breath with seated peripheral edema. Her ejection fraction by last echo performed at was 45% with moderate regurgitation. Patient does have history also of prior DVT and [place] filter placement. Patient was seen and examined this morning, she continues to diurese well. Her creatinine today is 2.8 weight is down 1 kg. Patient's edema is overall improving. She does state that she feels better overall, sitting up in the chair at the time of my examination. 06/19/2018 Patient seen and examined this morning, continues to diurese very well. Patient is feeling overall significantly better today. White blood cell count 7.0, hemoglobin 11.9, platelet count 166. Sodium 141, potassium 3.4, BUN 59 and creatinine 2.5. She will receive one more dose of IV Lasix, then we will change her over to Lasix 80 mg 1 tablet by mouth twice a day. 06/20/2018 Patient seen and examined this morning, feeling well, slept well last night, hemodynamically stable. Doing well with physical therapy. On oral diuretics. 06/20/2018 Patient seen and examined today, 9:00 this morning her blood pressure is 94/50, came up to 116/80, BUN 59, creatinine 2.3. Hydralazine held by nephrology today. On discharge patient will be placed back on Demadex. From cardiology's perspective, patient is cleared for discharge once cleared by primary and nephrology. Objective - Vital Signs Vital signs: Vital Signs Temp 98.3 F 06/21/18 16:00 Pulse 96 06/21/18 16:00 Resp 18 06/21/18 16:00 BP 99/66 06/21/18 16:00 Pulse Ox 97 06/21/18 16:00 Intake & Output 06/20/18 06/21/18 06/21/18 18:59 06:59 18:59 Intake Total 480 300 600 Output Total 300 600 380 Balance 180 -300 220 Weight 80.2 kg 80.2 kg Intake: Oral 480 300 600 Output: Urine 300 600 380 Other: Voiding Method Toilet Bedside Commode # Voids 2 2 1 # Bowel Movements 1 1 - Exam PHYSICAL EXAMINATION: GENERAL: 83-year-old female in no acute distress at the time of my examination HEENT: Head is atraumatic, normocephalic. Pupils equal, round. Sclera anicteric. Conjunctiva are clear. Mucous membranes of the mouth are moist. Neck is supple. There is no elevated jugular venous pressure. Carotid bruit is heard. HEART EXAMINATION: S1-S2 irregularly irregular a holosystolic murmur is heard. CHEST EXAMINATION: Lungs are clear to auscultation and precussion. No chest wall tenderness is noted on palpation or with deep breathing. ABDOMEN: Soft, nontender. Bowel sounds are heard. No organomegaly noted. EXTREMITIES: 2+ peripheral pulses with 1+ evidence of peripheral edema and no calf tenderness noted. NEUROLOGIC patient is awake, alert and oriented X3. . - Labs CBC & Chem 7: 06/21/18 05:45 06/21/18 05:45 Labs: Abnormal Lab Results - Last 24 Hours (Table) 06/20/18 06/21/18 06/21/18 Range/Units 20:55 05:45 05:45 RBC 3.23 L (3.80-5.40) m/uL MCV 116.3 H (80.0-100.0) fL MCH 35.5 H (25.0-35.0) pg MCHC 30.5 L (31.0-37.0) g/dL RDW 17.5 H (11.5-15.5) % BUN 59 H (7-17) mg/dL Creatinine 2.39 H (0.52-1.04) mg/dL Glucose 107 H (74-99) mg/dL POC Glucose (mg/dL) 151 H (75-99) mg/dL Total Bilirubin 1.4 H (0.2-1.3) mg/dL Total Protein 5.6 L (6.3-8.2) g/dL Albumin 2.8 L (3.5-5.0) g/dL 06/21/18 06/21/18 06/21/18 Range/Units 05:49 11:27 16:24 RBC (3.80-5.40) m/uL MCV (80.0-100.0) fL MCH (25.0-35.0) pg MCHC (31.0-37.0) g/dL RDW (11.5-15.5) % BUN (7-17) mg/dL Creatinine (0.52-1.04) mg/dL Glucose (74-99) mg/dL POC Glucose (mg/dL) 107 H 166 H 128 H (75-99) mg/dL Total Bilirubin (0.2-1.3) mg/dL Total Protein (6.3-8.2) g/dL Albumin (3.5-5.0) g/dL Assessment and Plan Plan: Assessment and plan #1 diastolic congestive heart failure acute on chronic #2 acute on chronic kidney disease #3 chronic persistent atrial fibrillation #4 history of DVT with prior Toyin filter #5 severe MR Plan From cardiology's perspective, we will continue current medications. Plan for discharge home when cleared by primary nephrology. DNP note has been reviewed, I agree with a documented findings and plan of care. Patient was seen and examined.
[2018-06-21 20:41] LABS: Glucose,Whole Blood 188 mg/dL (75-99)
--- NOTE | 2018-06-21 22:57 | PN ---
PROGRESS NOTE Patient is seen for followup for chronic kidney disease and acute kidney injury. This morning she is comfortable. Her daughter is concerned that weight has gone up. The patient denies any significant complaints. She has been voiding. She received a dose of Zaroxolyn this morning. Her blood pressure is running on the lower side. PHYSICAL EXAMINATION: This morning, blood pressure was 94/58, heart rate 101 per minute. Patient is afebrile. Examination of the heart S1, S2. Examination lungs bilateral breath sounds are heard. Abdomen is soft, nontender. Exam of lower extremities shows trace edema bilaterally. CARRIAGE FEEDER exam is grossly intact. LABS: Sodium 141, potassium 3.5, chloride 103, BUN 59, serum creatinine 2.39, hemoglobin 11.5 g/dL. ASSESSMENT: 1. Chronic kidney disease NKF stage IV secondary to nephrosclerosis and cardiorenal syndrome. Currently, the renal function is at baseline. 2. Acute kidney injury associated with cardiorenal syndrome, CHF exacerbation, currently improved. 3. Hyperkalemia associated with worsening renal function and poor response to diuretics as outpatient. Currently improved. Potassium is actually on the lower side. 4. Hypokalemia secondary to diuretics. Will replace cautiously. 5. Diastolic heart failure. 6. Volume overload. Continue current diuretics. I gave her a dose of Zaroxolyn this morning. The patient can be discharged home on torsemide 20 twice a day or 20 in a.m. and 10 mg at p.m. depending on her response with urine output today. The patient will not need the Zaroxolyn as outpatient. She will need close followup with monitoring of daily weights and overall clinical evaluation for adjustment of diuretics. 7. Chronic kidney disease mineral bone disorder. 8. Atrial fibrillation, currently with controlled ventricular response. However, heart rate is on the high side. I will hold off on the hydralazine as blood pressure is low, but we can continue with the Lopressor. Plan is Zaroxolyn x1 today. Monitor response to diuretics and patient can be discharged tomorrow on her torsemide 20 twice a day or 20 in the a.m. and 10 at p.m. with 30 mEq of potassium chloride daily. She will need close monitoring of her volume status and labs as outpatient. Hold off on the hydralazine and may continue with the Lopressor given the heart rate being on the higher side. MMODL / IJN: [id number] /
[2018-06-22 06:09] LABS: Glucose,Whole Blood 101 mg/dL (75-99)
[2018-06-22] MEDS: INSULIN ASPART 100 UNIT/ML 1 ML 10 ML VIAL SQ SCH (06:22)
[2018-06-22] MEDS: PANTOPRAZOLE 40 MG TABLET PO SCH (06:32)
[2018-06-22 07:43] LABS: Albumin 3.1 g/dL (3.5-5.0); Calcium 9.5 mg/dL (8.4-10.2); Potassium 3.5 mmol/L (3.5-5.1); Total Bilirubin 1.4 mg/dL (0.2-1.3)
[2018-06-22 07:46] LABS: Anisocytosis Slight; Basophils % (A) 0 %; Eosinophils # (A) 0.2 k/uL (0-0.7); Eosinophils % (A) 3 %; HCT 39.1 % (34.0-46.0); HGB 12.2 gm/dL (11.4-16.0); Hypochromasia Marked; Lymphocytes # (A) 1.3 k/uL (1.0-4.8); Lymphocytes % (A) 17 %; MCH 36.2 pg (25.0-35.0); MCHC 31.2 g/dL (31.0-37.0); MCV 115.9 fL (80.0-100.0); Macrocytosis Marked; Mean Platelet Volume 8.7; Monocytes # (A) 0.4 k/uL (0-1.0); Monocytes % (A) 5 %; Neutrophils # (A) 5.1 k/uL (1.3-7.7); Neutrophils % (A) 71 %; Platelet Count 145 k/uL (150-450); RBC 3.37 m/uL (3.80-5.40); RDW 17.3 % (11.5-15.5); WBC 7.2 k/uL (3.8-10.6)
[2018-06-22] MEDS: PSYLLIUM HUSK 100% 6 GM PACKET PO SCH (07:52)
[2018-06-22] MEDS: ALLOPURINOL 100 MG TAB PO SCH (08:10)
[2018-06-22] MEDS: ISOSORBIDE MONONITRATE ER 30 MG TAB.ER.24H PO SCH (08:10)
[2018-06-22] MEDS: hydrALAZINE HCL 25 MG TAB PO SCH (08:10)
[2018-06-22] MEDS: METOPROLOL TARTRATE 50 MG TAB PO SCH (08:11)
[2018-06-22] MEDS: SODIUM BICARBONATE TAB 650 MG TAB PO SCH (08:11)
[2018-06-22] MEDS: RIVAROXABAN 10 MG TAB PO SCH (08:11)
[2018-06-22] MEDS: FERROUS SULFATE 325 MG TAB PO SCH (08:11)
[2018-06-22] MEDS: VIT A,C & E-LUTEIN-MINERALS 1 EACH TAB PO SCH (08:11)
[2018-06-22] MEDS: LINAGLIPTIN 5 MG TABLET PO SCH (08:11)
[2018-06-22] MEDS: METOLAZONE 5 MG TAB PO SCH (08:11)
[2018-06-22] MEDS: traMADol 50 MG TAB PO SCH (08:11)
[2018-06-22] MEDS: DOCUSATE 100 MG CAP PO SCH (08:12)
[2018-06-22] MEDS: FUROSEMIDE 80 MG TAB PO SCH (08:12)
[2018-06-22] MEDS: DORZOLAMIDE HCL 2% DROPS 10 ML BTL BOTH EYES SCH (08:12)
[2018-06-22] MEDS: BRIMONIDINE TARTRATE 0.2% DROPS 5 ML BTL BOTH EYES SCH (08:12)
[2018-06-22] MEDS: CHOLECALCIFEROL 1,000 UNIT TAB PO SCH (08:14)
[2018-06-22] MEDS: MIDODRINE 5 MG TAB PO SCH (08:14)
--- NOTE | 2018-06-22 08:32 | P.PN ---
Subjective Progress Note Date: 06/22/18 Principal diagnosis: Acute exacerbation of CHF related to acute on chronic systolic heart failure, acute hypoxic respiratory failure related to above, acute on chronic renal failure, hyperkalemia, severe mitral regurgitation, chronic atrial fibrillation on anticoagulation, type 2 diabetes mellitus, coronary daily. , electrolyte imbalance with hypomagnesemia and hypokalemia/hyperkalemia, history of DVT status post [place] filter, severe mitral regurgitation 06/22/2018, patient seen eval examined during the rounds clinically patient has been doing better in terms of breathing is still have problems associated with intense interstitial edema as well as the third spacing but severity has improved labs reviewed medications reviewed, renal functions remain stable 06/21/2018, patient seen eval examined during the rounds clinically patient has been doing slightly better respiratory status is improved breathing more comfortably no obvious distress present labs reviewed medications reviewed care plan discussed with the family present at bedside as well as staff, patient is being arranged for home health 06/20/2018, patient seen eval examined during the rounds respiratory status continued to improve she remains on Lasix tolerating very well swelling in the lower extremities present but has improved radiographic studies and laboratory data reviewed, patient remains short of breath, patient is being evaluated for home health she has declined extended care facility 06/19/2018, patient seen eval examined during the rounds clinically doing much better patient is undergoing aggressive diuresis tolerating IV Lasix fairly well swelling in the lower extremity has improved, denies any chest pain labs reviewed medications reviewed, last chest x-ray performed on June 18 reviewed interstitial edema noted along with a small right pleural effusion Objective - Vital Signs Vital signs: Vital Signs Temp 97.2 F L 06/22/18 07:47 Pulse 91 06/22/18 07:47 Resp 18 06/22/18 07:47 BP 110/62 06/22/18 07:47 Pulse Ox 95 06/22/18 04:00 Intake & Output 06/21/18 06/22/18 06/22/18 18:59 06:59 18:59 Intake Total 840 240 Output Total 630 200 200 Balance 210 -200 40 Weight 80.2 kg 80 kg Intake: Oral 840 240 Output: Urine 630 200 200 Other: Voiding Method Toilet Bedside Commode # Voids 1 500 # Bowel Movements 1 - Exam - Constitutional General appearance: Present: average body habitus, cooperative, disheveled, mild distress - EENT Eyes: Present: PERRLA, normal appearance ENT: Present: normal oropharynx Ears: bilateral: normal - Neck Neck: Present: normal ROM Carotids: bilateral: upstroke normal - Respiratory Respiratory: bilateral: rales - Cardiovascular Rhythm: irregularly irregular Heart sounds: normal: S1, S2, 2 / 6 systolic murmur - Gastrointestinal General gastrointestinal: Present: normal bowel sounds, soft - Neurologic Neurologic: Present: CNII-XII intact - Musculoskeletal Musculoskeletal: Present: gait normal, generalized weakness, strength equal bilaterally - Psychiatric Psychiatric: Present: A&O x's 3, appropriate affect, intact judgment & insight - Labs CBC & Chem 7: 06/22/18 06:09 06/22/18 06:09 Labs: Abnormal Lab Results - Last 24 Hours (Table) 06/21/18 06/21/18 06/21/18 Range/Units 11:27 16:24 20:35 RBC (3.80-5.40) m/uL MCV (80.0-100.0) fL MCH (25.0-35.0) pg RDW (11.5-15.5) % Plt Count (150-450) k/uL BUN (7-17) mg/dL Creatinine (0.52-1.04) mg/dL POC Glucose (mg/dL) 166 H 128 H 188 H (75-99) mg/dL Total Bilirubin (0.2-1.3) mg/dL Total Protein (6.3-8.2) g/dL Albumin (3.5-5.0) g/dL 06/22/18 06/22/18 06/22/18 Range/Units 06:07 06:09 06:09 RBC 3.37 L (3.80-5.40) m/uL MCV 115.9 H (80.0-100.0) fL MCH 36.2 H (25.0-35.0) pg RDW 17.3 H (11.5-15.5) % Plt Count 145 L (150-450) k/uL BUN 62 H (7-17) mg/dL Creatinine 2.34 H (0.52-1.04) mg/dL POC Glucose (mg/dL) 101 H (75-99) mg/dL Total Bilirubin 1.4 H (0.2-1.3) mg/dL Total Protein 6.0 L (6.3-8.2) g/dL Albumin 3.1 L (3.5-5.0) g/dL Assessment and Plan Assessment: Acute exacerbation of CHF related to acute on chronic systolic heart failure baseline ejection fraction of 40% with component of diastolic heart failure Severe mitral regurgitation Acute pulmonary edema related to above Small right-sided pleural effusion not enough to tap Chronic persistent asthma mild to intermittent Chronic renal failure with acute worsening Electrolyte imbalance with hyper and hypokalemia followed by hypomagnesemia slowly resolving History of DVT status post IVC filter along with long-term anticoagulation Plan: Continue gentle diuresis Continue deep breathing sense incentive spirometry Taper and DC oxygen as tolerated Continue anticoagulation as planned Monitor renal functions closely No Plan for thoracentesis Further recommendations pending plan of care as per clinical response of the patient Increase activity as tolerated Time with Patient: Greater than 30
[2018-06-22] MEDS ORDERED: POTASSIUM CHLORIDE ER 20 MEQ TAB.ER PO SCH (09:00)
[2018-06-22] MEDS ORDERED: POTASSIUM CHLORIDE ER 10 MEQ TAB.ER.PRT PO SCH (09:00)
[2018-06-22 09:11] LABS: Poikilocytosis (M) Present
[2018-06-22] MEDS: AMMONIUM LACTATE 12% CREAM 140 GM TUBE TOPICAL SCH (10:15)
[2018-06-22] MEDS: NYSTATIN 100,000UNIT/GM CREAM 30 GM TUBE TOPICAL SCH (10:15)
[2018-06-22 11:38] VITALS: BP 108/60; PULSE 99; TEMP 97.6
[2018-06-22] MEDS: METOPROLOL TARTRATE 25 MG TAB PO SCH (11:39)
--- NOTE | 2018-06-22 11:40 | P.DS ---
Providers Date of admission: 06/14/18 18:06 Expected date of discharge: 06/22/18 Attending physician: Elyse Owen Consults: 06/14/18 18:04 Consult Physician Urgent Consulting Provider: Rocky Wellington Consult Reason/Comments: Dyspnea Do you want consulting provider notified?: Yes Consult Physician Urgent Consulting Provider: [facility] Consult Reason/Comments: Anasarca Do you want consulting provider notified?: Yes 06/15/18 02:17 Consult Physician Routine Consulting Provider: Hanna Escobar Consult Reason/Comments: Renal disease Do you want consulting provider notified?: Yes 06/17/18 12:19 Consult Physician Routine Consulting Provider: Teodoro Vuong Consult Reason/Comments: abdominal U/S Do you want consulting provider notified?: Yes Primary care physician: Jak Mata [facility] Course: Discharge diagnosis 1. Acute on chronic systolic CHF exacerbation: Patient currently on Lasix 80 mg by mouth twice a day. Zaroxolyn 5 mg daily started this morning. Cardiology and nephrology are following. Echo from November showed an EF of 40-45% with moderate to severe mitral regurgitation. Continue to monitor daily weights and I's and O's. 2. Acute kidney injury secondary to ATN due to cardiorenal syndrome and urinary retention. Nephrology following. Creatinine trending down. 3. Urinary retention : Erickson catheter removed. Patient urinating without evidence of urinary retention 4. Hyperkalemia secondary to acute kidney injury and metabolic acidosis. Resolved 5. Metabolic acidosis secondary to acute kidney injury. Nephrology has adjusted the sodium bicarbonate dosage. 6. History of severe mitral regurgitation 7. Chronic kidney disease stage IV secondary to cardiorenal syndrome. Nephrology following. 8. Chronic persistent atrial fibrillation anticoagulated with Xarelto 9. Diabetes mellitus type 2 continue the tradjenta. Add sliding scale coverage 10. Candidiasis of the abdominal fold. Add nystatin cream 3 times a day 11. Elevated LFTs likely related to fluid congestion. She had been evaluated by surgical service on last admission due to history of gallstone and elevated total bilirubin. No surgical intervention required at that time. Patient denies any right upper quadrant abdominal pain or nausea. Abdominal ultrasound completed showing cholelithiasis and possible cholecystitis. Surgical service has been consulted. LFTs have normalized. Total bilirubin 1.6. Patient seen by surgical service. Likely elevated LFTs and total bili related to liver congestion. They're recommending no surgical intervention at this time 12. Hypermagnesemia: Repeat magnesium level normal at 2.1 13. Hypokalemia patient receiving potassium supplement. Discussed with nephrology. At this time we'll resume patient's K Dur 30 mEq daily 14. Episode of hypotension: Discussed with nephrology. They're holding the hydralazine this morning. They have place parameters to hold hydralazine for systolic blood pressure less than 100. hold metoprolol for systolic blood pressure less than 97. Patient is also on Midodrin to help with low BP Hospital course This is a 83-year-old female with a known past medical history of congestive heart failure with a known EF of 40-45%, diabetes mellitus, chronic kidney disease, uterine cancer status post hysterectomy, DVT with Toyin filter, chronic atrial fibrillation anticoagulated with Xarelto. Patient presents to the emergency room with complaints of worsening shortness of breath and lower extremity edema. She was just recently discharged from [facility] on June 07 at that time had been treated for an acute CHF exacerbation. She was discharged on torsemide 10 mg twice a day. She went to see her PCP, Dr. Nathan on Monday and the torsemide was changed to Lasix to 40 mg twice a day. However patient's symptoms continued to worsen she's had about a 5 pound weight Gain over the last week. Also had elevated potassium of 6.3 on admission. Creatinine is also elevated at 3.71 and his increased to 3.83. Consulted been placed for cardiology, nephrology and pulmonary service. Nephrology has increased the Lasix to 80 mg IV every 12 hours. Patient is still short of breath evidence of lower extremity edema and fatigued. She denies any fever, chills, sweats. Denies any chest pain. Denies any nausea vomiting bowel movement changes. She also had evidence of urinary retention and Erickson catheter inserted in the ER. Patient being treated for an acute CHF exacerbation. BNP was elevated at 26,300 on admission chest x-ray shows a small right pleural effusion and cardiomyopathy. EKG had shown atrial fibrillation with a heart rate of 111 On 06/16/2018 patient was seen and examined on the third telemetry floor she is alert and oriented 3 she is complaining of abdominal discomfort she is complaining of shortness of breath with some improvement since yesterday she is complaining of bilateral lower extremity edema otherwise she denies any complaints there is no fever or chills no headache or dizziness no chest pain no cough no nausea or vomiting no constipation or diarrhea and no urinary symptoms Erickson catheter is in. On 06/17/2018 patient is currently sitting up in chair alert and oriented 3. Patient states she is feeling improved from yesterday. Patient has tolerated breakfast today. Patient is still making good urine output after Erickson catheter. At this time patient denies chest pain or shortness of breath. Patient down from 82.5 kg to 78.5 kg. Patient remains on IV Lasix 80 mg every 12 hours 06/18/2018 patient is sitting up at bedside chair. She reports she is feeling better. Shortness of breath has improved. Yesterday she was able to get to the bathroom on her own with support observing only. Lower extremity edema improving. She remains on the IV Lasix 80 every 12. Denies any chest pain. Denies any nausea or vomiting. She is asking when the Erickson catheter will be removed. 06/19/2018 H date patient is starting to feel better. Less shortness of breath left lower extremity edema. Her weight has increased from 78.5 kg to 80.1 kg. Chest x-ray showing pulmonary venous hypertension and interstitial edema. Discussed with cardiology service and likely they will continue IV Lasix today. Therefore we will keep Erickson catheter in for patient's comfort. Physical therapy has been consulted. Creatinine is down to 2.59. Patient also seen by surgical service regarding her gallstones. No surgical intervention is scheduled for. Likely patient's LFTs and total bilirubin were elevated due to liver congestion. Patient denies chest pain. Denies any nausea vomiting. Reports regular bowel movements. 06/20/2018 Patient seen and examined this morning, feeling well, slept well last night, hemodynamically stable. Doing well with physical therapy. On oral diuretics. 06/21/2018 patient had a lower blood pressure this morning 94/50. Dr. Escobar was notified she recommended hold the hydralazine this morning. Patient also on Midodrin and this was given this morning. Continue to monitor blood pressures. Nephrology will reevaluate patient in the morning regarding any further adjustment in blood pressure medications. There is also discussion about placing patient back on torsemide when she is discharged. Patient's potassium 3.5 she is receiving potassium supplement. Patient's shortness of breath is improving. Weight did go back up from 79.8 kg to 80.2 kg. Zaroxolyn 5 mg daily was started this morning. Patient's Erickson catheter was removed yesterday she is urinating without evidence of urinary retention. Creatinine is down to 2.39. Cardiology has cleared patient for discharge. Patient denies any shortness of breath. Denies any lightheadedness or dizziness. 06/22/2018 patient is shortness of breath has improved greatly. She still has about a +1 lower extremity edema. But again this has improved since admission. Her weight has decreased from 80.2 kg down to 80. Kidney function is improving as well down to 2.34. Cardiology has cleared patient for discharge. Case discussed with nephrology. They are recommending torsemide 20 mg twice a day. Zaroxolyn 5 mg daily as needed for a 3-4 pound weight gain. They have discontinued hydralazine due to her hypotension during this admission. Blood pressures have shown improvement. Nephrology recommendations to check BMP within 3 days. Patient also be following up with cardiology, nephrology, pulmonary service and PCP after discharge. She'll follow-up with Dr. Nathan next week. Patient also be followed by [facility]. Patient has been cleared by [facility] consultant physicians for discharge. She is medical stable for discharge. Please refer to chart for any further details. I performed an examination of the patient and discussed their management with the physician Automatic Winder Operator. I have reviewed the Physician Automatic Winder Operator's notes and agree with the documented findings and plan of care Patient Condition at Discharge: Stable Plan - Discharge Summary Discharge Rx Participant: No New Discharge Prescriptions: New Metolazone [Zaroxolyn] 5 mg PO DAILY PRN #30 tab PRN Reason: Edema Nystatin 100,000Unit/gm Cream [Mycostatin Cream] 1 applic TOPICAL TID #1 tube Torsemide [Demadex] 20 mg PO BID #60 tablet Continue Linagliptin [Tradjenta] 5 mg PO DAILY Allopurinol [Zyloprim] 200 mg PO DAILY Omeprazole [PriLOSEC] 20 mg PO DAILY@0700 Docusate Sodium [Stool Softener] 100 mg PO BID Garlic 1 tab PO BID Calcitriol 0.25 mcg PO SUTUTHSA traMADol HCL [Ultram] 50 mg PO TID Brinzolamide/Brimonidine Tart [Simbrinza 1%-0.2% Eye Drops] 1 drop BOTH EYES BID Vit C/E/Zn/Coppr/Lutein/Zeaxan [Preservision Areds 2 Softgel] 1 cap PO BID Ferrous Sulfate [Feosol] 325 mg PO DAILY Ammonium Lactate Cream [Lac-Hydrin 12% Cream] 1 applic TOPICAL BID Cholecalciferol (Vitamin D3) [Vitamin D3] 2,000 unit PO DAILY Wheat Dextrin [Benefiber] 1 packet PO BID Isosorbide Mononitrate ER [Imdur] 60 mg PO DAILY Rivaroxaban [Xarelto] 10 mg PO DAILY Midodrine [ProAmatine] 5 mg PO TID Potassium Chloride ER [K-Dur 20] 20 meq PO DAILY #30 tab Sodium Bicarbonate Tab 650 mg PO BID #60 tab Potassium Chloride ER [K-Dur 10] 10 meq PO DAILY Metoprolol Tartrate [Lopressor] 2 tab PO BID Metoprolol Tartrate [Lopressor] 1 tab PO PC-LUNCH Discontinued Furosemide [Lasix] 40 mg PO BID Discharge Medication List Allopurinol [Zyloprim] 200 mg PO DAILY 01/22/14 [History] Linagliptin [Tradjenta] 5 mg PO DAILY 01/22/14 [History] Omeprazole [PriLOSEC] 20 mg PO DAILY@0700 01/22/14 [History] Docusate Sodium [Stool Softener] 100 mg PO BID 02/22/14 [History] Garlic 1 tab PO BID 02/22/14 [History] Calcitriol 0.25 mcg PO SUTUTHSA 08/22/14 [History] traMADol HCL [Ultram] 50 mg PO TID 01/13/16 [History] Brinzolamide/Brimonidine Tart [Simbrinza 1%-0.2% Eye Drops] 1 drop BOTH EYES BID 05/11/17 [History] Vit C/E/Zn/Coppr/Lutein/Zeaxan [Preservision Areds 2 Softgel] 1 cap PO BID 12/03 [History] Ferrous Sulfate [Feosol] 325 mg PO DAILY 01/11/18 [History] Ammonium Lactate Cream [Lac-Hydrin 12% Cream] 1 applic TOPICAL BID 02/10/18 [ History] Cholecalciferol (Vitamin D3) [Vitamin D3] 2,000 unit PO DAILY 02/10/18 [History] Isosorbide Mononitrate ER [Imdur] 60 mg PO DAILY 02/10/18 [History] Wheat Dextrin [Benefiber] 1 packet PO BID 02/10/18 [History] Midodrine [ProAmatine] 5 mg PO TID 04/10/18 [History] Rivaroxaban [Xarelto] 10 mg PO DAILY 04/10/18 [History] Potassium Chloride ER [K-Dur 20] 20 meq PO DAILY #30 tab 04/13/18 [Rx] Sodium Bicarbonate Tab 650 mg PO BID #60 tab 04/13/18 [Rx] Potassium Chloride ER [K-Dur 10] 10 meq PO DAILY 06/02/18 [History] Metoprolol Tartrate [Lopressor] 2 tab PO BID 06/14/18 [History] Metoprolol Tartrate [Lopressor] 1 tab PO PC-LUNCH 06/15/18 [History] Metolazone [Zaroxolyn] 5 mg PO DAILY PRN #30 tab 06/22/18 [Rx] Nystatin 100,000Unit/gm Cream [Mycostatin Cream] 1 applic TOPICAL TID #1 tube [Rx] Torsemide [Demadex] 20 mg PO BID #60 tablet 06/22/18 [Rx] Follow up Appointment(s)/Referral(s): Hanna Escobar MD [STAFF PHYSICIAN] - 1 Week (Office will call with follow up appointment, message left.) [facility], [NON-STAFF] - Tasha May MD [STAFF PHYSICIAN] - 07/06/18 3:30 pm (August 21 appointment is still scheduled. July 06 appointment at [facility] next to [place] in [place].) Jak Nathan MD [Primary Care Provider] - 06/26/18 2:10 pm (Monday -previously scheduled appointment) Rocky Wellington MD [STAFF PHYSICIAN] - 08/24/18 11:30 am Sandip Collado MD [STAFF PHYSICIAN] - 08/08/18 11:30 am Nick Burdick DPM [STAFF PHYSICIAN] - 07/27/18 10:00 am Ambulatory/Diagnostic Orders: Basic Metabolic Panel [LAB.AMB] Time Frame: 3 Days, Location: None Selected Activity/Diet/Wound Care/Special Instructions: Diet: cardiac, renal, diabetic Activity: as tolerated [facility] to follow Discharge Disposition: HOME WITH HOME HEALTH SERVICES
--- NOTE | 2018-06-22 11:52 | P.PN ---
Subjective Patient is seen in follow-up for acute kidney injury on chronic kidney disease. Patient has chronic kidney disease stage IV secondary to cardiorenal syndrome with baseline creatinine in the range of 2-2.5. GFR currently at baseline. Admits to good urine output. No vomiting or diarrhea. Edema is improved. She is eager to go home. Vital signs are stable. General: The patient appeared well nourished and normally developed. HEENT: Head exam is unremarkable. Neck is without jugular venous distension. LUNGS: Lungs are clear to auscultation and percussion. Breath sounds decreased. HEART: Rate and Rhythm are regular. First and second heart sounds normal. No murmurs, rubs or gallops. ABDOMEN: Abdominal exam reveals normal bowel sounds. Non-tender and non- distended. No evidence of peritonitis. EXTREMITITES: 1+ edema. Objective - Vital Signs Vital signs: Vital Signs Temp 97.6 F 06/22/18 11:38 Pulse 99 06/22/18 11:38 Resp 18 06/22/18 11:38 BP 108/60 06/22/18 11:38 Pulse Ox 95 06/22/18 04:00 Intake & Output 06/21/18 06/22/18 06/22/18 18:59 06:59 18:59 Intake Total 840 240 Output Total 630 200 500 Balance 210 -200 -260 Weight 80.2 kg 80 kg Intake: Oral 840 240 Output: Urine 630 200 500 Other: Voiding Method Toilet Bedside Commode # Voids 1 500 # Bowel Movements 1 - Labs CBC & Chem 7: 06/22/18 06:09 06/22/18 06:09 Labs: Abnormal Lab Results - Last 24 Hours (Table) 06/21/18 06/21/18 06/22/18 Range/Units 16:24 20:35 06:07 RBC (3.80-5.40) m/uL MCV (80.0-100.0) fL MCH (25.0-35.0) pg RDW (11.5-15.5) % Plt Count (150-450) k/uL BUN (7-17) mg/dL Creatinine (0.52-1.04) mg/dL POC Glucose (mg/dL) 128 H 188 H 101 H (75-99) mg/dL Total Bilirubin (0.2-1.3) mg/dL Total Protein (6.3-8.2) g/dL Albumin (3.5-5.0) g/dL 06/22/18 06/22/18 Range/Units 06:09 06:09 RBC 3.37 L (3.80-5.40) m/uL MCV 115.9 H (80.0-100.0) fL MCH 36.2 H (25.0-35.0) pg RDW 17.3 H (11.5-15.5) % Plt Count 145 L (150-450) k/uL BUN 62 H (7-17) mg/dL Creatinine 2.34 H (0.52-1.04) mg/dL POC Glucose (mg/dL) (75-99) mg/dL Total Bilirubin 1.4 H (0.2-1.3) mg/dL Total Protein 6.0 L (6.3-8.2) g/dL Albumin 3.1 L (3.5-5.0) g/dL Assessment and Plan Plan: Assessment: 1. Nonoliguric acute kidney injury secondary to ATN secondary to cardiorenal syndrome. Creatinine stable at 2.34 today. 2. Chronic kidney disease stage IV secondary to cardiorenal syndrome. Recently creatinine has been in the range of 2-2.5. 3. Hyperkalemia secondary to acute kidney injury and metabolic acidosis. Resolved. Potassium now on the lower side from diuresis. 4. Metabolic acidosis secondary to acute kidney injury. improved. 5. Fluid overload. improved. 6. Systolic CHF with ejection fraction of 40-45% with severe mitral regurgitation. Plan: Start Demadex 20 mg orally twice daily upon discharge. Advised patient to follow a low-salt and 50-60 oz fluid restricted diet. Maintain potassium supplementation at 30 meq daily. Patient to get basic metabolic panel and magnesium level checked in 2-3 days of discharge and follow up outpatient in the next 1 week. She was also advised to monitor her weight closely at home.
== END 2018-06-22 12:35 | disposition home health service (06) | DRG 291 ==
LOC: EC 11:50 → 3SCARD 18:06
PROVIDERS: ADMIT Internal Medicine; ATTEND Internal Medicine
DX: I13.0 Hypertensive heart and chronic kidney disease with heart failure and stage 1 through stage 4 chronic kidney disease, or unspecified chronic kidney disease (principal); I50.23 Acute on chronic systolic (congestive) heart failure; N17.0 Acute kidney failure with tubular necrosis; J96.01 Acute respiratory failure with hypoxia; N18.4 Chronic kidney disease, stage 4 (severe); E87.2 Acidosis; Z51.5 Encounter for palliative care; Z66 Do not resuscitate; I95.9 Hypotension, unspecified; E11.22 Type 2 diabetes mellitus with diabetic chronic kidney disease; E87.5 Hyperkalemia; E83.41 Hypermagnesemia; E11.39 Type 2 diabetes mellitus with other diabetic ophthalmic complication; K76.1 Chronic passive congestion of liver; I42.9 Cardiomyopathy, unspecified; E83.9 Disorder of mineral metabolism, unspecified; I34.0 Nonrheumatic mitral (valve) insufficiency; I48.2 Chronic atrial fibrillation; E87.6 Hypokalemia; H42 Glaucoma in diseases classified elsewhere; B37.2 Candidiasis of skin and nail; T50.2X5A Adverse effect of carbonic-anhydrase inhibitors, benzothiadiazides and other diuretics, initial encounter; J45.20 Mild intermittent asthma, uncomplicated; M1A.9XX0 Chronic gout, unspecified, without tophus (tophi); K80.20 Calculus of gallbladder without cholecystitis without obstruction; R33.9 Retention of urine, unspecified; K21.9 Gastro-esophageal reflux disease without esophagitis; H35.30 Unspecified macular degeneration; H40.9 Unspecified glaucoma; I25.10 Atherosclerotic heart disease of native coronary artery without angina pectoris; E66.9 Obesity, unspecified; Z68.32 Body mass index [BMI] 32.0-32.9, adult; Z79.01 Long term (current) use of anticoagulants; Z79.891 Long term (current) use of opiate analgesic; Z79.899 Other long term (current) drug therapy; Z86.19 Personal history of other infectious and parasitic diseases; Z86.718 Personal history of other venous thrombosis and embolism; Z96.642 Presence of left artificial hip joint; Z95.828 Presence of other vascular implants and grafts; Z87.891 Personal history of nicotine dependence; Z85.42 Personal history of malignant neoplasm of other parts of uterus; Z90.49 Acquired absence of other specified parts of digestive tract; Z90.710 Acquired absence of both cervix and uterus; Z88.5 Allergy status to narcotic agent; Z88.8 Allergy status to other drugs, medicaments and biological substances; Z83.3 Family history of diabetes mellitus; Z83.6 Family history of other diseases of the respiratory system
CPT/HCPCS: 36415; 71046; 76700; 80048; 80053; 82550; 82553; 83735; 83880; 84132; 84484; 85025; 85379; 85610; 85730; 93005; 96374; 99285

== ENCOUNTER → 2018-09-14 | Outpatient (CLI) | payer MEDICARE, BC ==
--- NOTE | 2018-09-14 11:11 | MM ---
Reason for exam: additional evaluation requested from prior study. Last mammogram was performed 1 year ago. History: Patient is postmenopausal and has history of endometrial cancer at age 66. Benign US biopsy breast VAD LT of the left breast, August 31, 2017. Cancelled Left Mammotome of the left breast, September 22, 2009. Benign cyst aspiration of the left breast, 1996. Physical Findings: Nurse did not find any significant physical abnormalities on exam. MG 3D Diag Mammo W/Cad VIK Bilateral CC and MLO view(s) were taken. Prior study comparison: August 31, 2017, left breast MG diagnostic mammo LT wo CAD. August 16, 2017, bilateral MG 3d diag mammo w/cad VIK. The breast tissue is heterogeneously dense. This may lower the sensitivity of mammography. Benign appearing bilateral calcifications. No suspicious abnormality in the left breast. Post biopsy change on left. Right central outer focal asymmetry 6.5cm from nipple i seen on 3D CC and MLO 16. Ultrasound will be performed first as the patient is weak and may not tolerate additional mammographic images. These results were verbally communicated with the patient and result sheet given to the patient on 09/14/18. ASSESSMENT: Incomplete: need additional imaging evaluation, BI-RAD 0 RECOMMENDATION: Ultrasound of the right breast. (lateral)
--- NOTE | 2018-09-14 11:13 | USB ---
Reason for exam: additional evaluation requested from abnormal screening. History: Patient is postmenopausal and has history of endometrial cancer at age 66. Benign US biopsy breast VAD LT of the left breast, August 31, 2017. Cancelled Left Mammotome of the left breast, September 22, 2009. Benign cyst aspiration of the left breast, 1996. US Breast Limited RT Right limited breast ultrasound including focal area of concern, retroareolar and axilla demonstrates a 0.9 x 0.7 x 1.1.cm irregular, solid lesion at 9 o'clock, corresponds to mammographic findings. Multiple lymph nodes visualized right axilla, morphologically normal. These results were verbally communicated with the patient and result sheet given to the patient on 09/14/18. ASSESSMENT: Suspicious, BI-RAD 4 RECOMMENDATION: Ultrasound core biopsy of the right breast. Called with mammographic findings and has scheduled an appointment for the patient for 10/17/18 at 2:[address] Vuong. Biopsy scheduled for 10/03/18 at 1:00. PRELIMINARY REPORT CALLED AND FAXED TO DR. VUONG ON 09/14/18.
== END | disposition home or self-care (01) ==
LOC: RADMAMWWP 08:41
PROVIDERS: ATTEND Surgery
DX: R92.8 Other abnormal and inconclusive findings on diagnostic imaging of breast (principal)
CPT/HCPCS: 77066; 76642; G0279; 77062

== ENCOUNTER → 2018-10-04 | Day surgery (SDC) | payer MEDICARE, BC ==
[2018-10-04 11:40] VITALS: RESP 16; TEMP 97.4; BMI 29.8
[2018-10-04 12:24] VITALS: BP 123/83; PULSE 76
--- NOTE | 2018-10-04 12:54 | USB ---
EXAMINATION TYPE: US biopsy breast VAD RT, MG diagnostic mammo RT wo CAD DATE OF EXAM: 10/04/2018 CLINICAL HISTORY: R92.8 ABN. [place]. Abnormal ultrasound. TECHNIQUE: Ultrasound guided core biopsy of right breast with clip placement and follow-up diagnostic two-view mammogram. COMPARISON: Mammogram and ultrasound September 2018 and older studies. FINDINGS: The procedure of ultrasound guided core biopsy was explained to the patient. Benefits, alternatives, and risks were discussed. An informed consent was then obtained. The patient was placed in supine positioning for imaging and for the procedure. Preprocedure ultrasound redemonstrates vague irregular hypoechoic 1.1 cm lesion 9:00 position zone C right breast. The overlying skin was prepped and draped in usual sterile fashion. Lidocaine buffered with bicarbonate was used as anesthetic into the skin and subcutaneous tissue up to area of concern in the right breast. Lidocaine with epinephrine is used as anesthetic in the deeper tissue. A erika was made with surgical scalpel. Under ultrasound guidance, a 12-gauge vacuum assisted biopsy gun device was used to obtain 4 core samples. Following this, a biopsy clip was left in lesion. The patient tolerated the procedure well without any immediate complication. The patient was kept in the radiology department for short stay after the procedure and then discharged home in stable condition. Postprocedure mammogram shows successful deployment of clip corresponding to area of concern on recent mammogram. IMPRESSION: Successful, uncomplicated ultrasound guided core biopsy of area of concern in the right breast, full pathology results to follow. Intermediate to high index of suspicion noted at time of procedure. 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 Ancillary studies are pending. See Surgical Pathology Cancer Case Summary. Recommendation Surgical consult of the right breast. (definitive surgical management) JADED
== END ==
LOC: RADUSWWP 11:09
PROVIDERS: ATTEND Surgery
DX: D05.11 Intraductal carcinoma in situ of right breast (principal); Z88.5 Allergy status to narcotic agent; Z88.8 Allergy status to other drugs, medicaments and biological substances
CPT/HCPCS: 88305; 88342; 88341; 77065; 19083; A4648; J2001

== ENCOUNTER → 2018-10-24 | Day surgery (SDC) | payer MEDICARE, BC ==
[2018-10-18 15:20] VITALS: BMI 29.2
[~2018-10-24] MED LIST changes: +BUPIVACAIN-EPI 0.5%-1:200,000 30 ML VIAL SQ ONE; +DEXAMETHASONE SOD PHOS (MDV) 100 MG/10 ML VIAL IVP ONE; +HEPARIN SODIUM,PORCINE 5,000 UNIT/ML 1 ML VIAL SQ ONE; -IV FLUID CONTINUATION 1,000 ML IV ONE; -LIDOCAINE 1% 20 ML VIAL (10MG/ML) FOR IV START INTRADERMA ONE; +LIDOCAINE 1% 20 ML VIAL (10MG/ML) FOR IV START INTRADERMA PRN; +LIDOCAINE 1% INJ 10MG/ML (20 ML MDV) SQ ONE; +NALOXONE 0.4 MG/ML 1 ML VIAL IV PRN; +ONDANSETRON 4 MG/2 ML VIAL IVP ONE; +PROPOFOL 10 MG/ML 20 ML VIAL IV ONE; +Pre Op ABX Message 1 EACH MISC MISCELLANE ONE; +SODIUM BICARB 4% 5 ML VIAL (0.48 MEQ/ML) MISCELLANE ONE; +SODIUM CHLORIDE 0.9% 50 ML with ceFAZolin 2,000 MG IV ONE; +fentaNYL (PF) 50 MCG/ML 2 ML AMP IV PRN; +fentaNYL (PF) 50 MCG/ML 2 ML AMP ONE; +traMADol 50 MG TAB PO PRN
--- NOTE | 2018-10-24 08:38 | P.NAPBC ---
NAPBC Queries - NAPBC Queries Was patient's case review presented at [facility] tumor board? If no, comment.: No Was patient's pathology reviewed at [facility]? If no, comment.: Yes Was breast conservation surgery offered? If no, comment.: Yes Was sentinel node biopsy offered? If no, comment.: Yes Was diagnosis confirmed by percutaneous core biopsy? If no, comment.: Yes If mastectomy patient, was a preop referral to a reconstructive surgeon offered?: Yes
[2018-10-24 09:27] LABS: Glucose,Whole Blood 109 mg/dL (75-99)
[2018-10-24 12:32] VITALS: TEMP 97.2
--- NOTE | 2018-10-24 12:34 | P.OP ---
Date of Procedure: 10/24/18 Procedure(s) Performed: REOPERATIVE DIAGNOSIS: Right breast cancer POSTOPERATIVE DIAGNOSIS: Same PROCEDURE: Right Breast wire localization lumpectomy SURGEON: Yevgeniy EBL: Minimal ANESTHESIA: Sedation COMPLICATIONS: None OPERATIVE PROCEDURE: Patient was placed on the operating room table in the supine position. The wire entrance site was then addressed. This was present at the 9:00 location. A curvilinear incision was made adjacent to the wire entrance site. I followed the wire down into the breast tissue. An adequate lumpectomy specimen then took place around the wire. Margins of 1.5-2 cm worth attempted to be achieved. Palpation of the specimen suggested that the posterior margins were somewhat close. I took an additional margin posteriorly and this was painted the appropriate color on the new margin side. The initial specimen was also painted the appropriate 6 colors. The subcutaneous tissues were closed using 3-0 Vicryl sutures. The skin was closed using a running 4-0 Monocryl stitch. Skin glue and sterile dressings were then applied. DISPOSITION: Stable to recovery room
--- NOTE | 2018-10-24 12:43 | MM ---
EXAMINATION TYPE: MG pre op needle loc RT, MG surgical specimen RT DATE OF EXAM: 10/24/2018 10:20 AM COMPARISON: NONE HISTORY: Right breast malignancy Informed consent was obtained and all the patient's questions were answered. The clip in question wa s localized mammographically. The standard sterile technique was utilized, as well as appropriate l ocal anesthesia with 1% Lidocaine and bicarbonate. Localization needle followed by placement of a gu idewire was performed under mammographic guidance. Verification images demonstrate appropriate deploy ment of the guidewire. The patient tolerated the procedure well and left the department in stable co ndition. Specimen radiograph demonstrates the clip and wire in question to reside within the specimen. IMPRESSION: Successful needle localization and open biopsy right breast with pathology results pendin g
[2018-10-24 13:30] VITALS: PULSE 82
[2018-10-24 14:28] VITALS: BP 119/78; RESP 18
== END ==
LOC: OR 08:26
PROVIDERS: ATTEND Surgery
DX: C50.911 Malignant neoplasm of unspecified site of right female breast (principal); Z17.0 Estrogen receptor positive status [ER+]; I48.91 Unspecified atrial fibrillation; I25.10 Atherosclerotic heart disease of native coronary artery without angina pectoris; E11.22 Type 2 diabetes mellitus with diabetic chronic kidney disease; I13.0 Hypertensive heart and chronic kidney disease with heart failure and stage 1 through stage 4 chronic kidney disease, or unspecified chronic kidney disease; N18.4 Chronic kidney disease, stage 4 (severe); I50.9 Heart failure, unspecified; Z79.84 Long term (current) use of oral hypoglycemic drugs; F17.200 Nicotine dependence, unspecified, uncomplicated; I25.2 Old myocardial infarction; M19.90 Unspecified osteoarthritis, unspecified site; M10.9 Gout, unspecified; Z86.718 Personal history of other venous thrombosis and embolism; Z79.01 Long term (current) use of anticoagulants; K21.9 Gastro-esophageal reflux disease without esophagitis; H35.30 Unspecified macular degeneration; Z79.891 Long term (current) use of opiate analgesic; Z79.899 Other long term (current) drug therapy; Z88.5 Allergy status to narcotic agent; Z88.8 Allergy status to other drugs, medicaments and biological substances
CPT/HCPCS: 76098; 19281; 19301; J1644; J2405; J2001; J3010; J0690; J1100; J2704; 88307

== ENCOUNTER 2019-01-04 12:48 | Inpatient (IN) | payer MEDICARE, BC ==
--- NOTE | 2019-01-04 14:39 | ED ---
General Adult HPI - General Chief complaint: Recheck/Abnormal Lab/Rx Stated complaint: water retention/SOB Time Seen by Provider: 01/04/19 13:50 Source: patient, RN notes reviewed Mode of arrival: wheelchair Limitations: physical limitation - History of Present Illness Initial comments: 83-year-old female With a past medical history of atrial fibrillation, CAD, heart failure, diabetes, DVT, stage IV kidney failure presents to the emergency department for a chief complaint of 6 pound weight gain. Family members state that patient has gained 6 pounds overnight. States her legs are swelling as well as her abdomen. Patient does admit to very mild shortness of breath with movement. States that whenever this happens it is because of her heart failure. States she has been changing her Lasix over the past several weeks. States she also had increase in her midodrine. Denies any other med changes. Denies any chest pain. Denies fevers or chills Patient has no other complaints at this time including chest pain, abdominal pain, nausea or vomiting, headache, or visual changes. - Related Data Home Medications Medication Instructions Recorded Confirmed Allopurinol [Zyloprim] 200 mg PO DAILY 01/22/14 01/04/19 Linagliptin [Tradjenta] 5 mg PO DAILY@1500 01/22/14 01/04/19 Omeprazole [PriLOSEC] 20 mg PO DAILY 01/22/14 01/04/19 Docusate Sodium [Stool Softener] 100 mg PO BID 02/22/14 01/04/19 Garlic 1 tab PO BID 02/22/14 01/04/19 Calcitriol 0.25 mcg PO SUTUTHSA 08/22/14 01/04/19 traMADol HCL [Ultram] 100 mg PO BID@0800,2300 01/13/16 01/04/19 Brinzolamide/Brimonidine Tart 1 drop BOTH EYES BID 05/11/17 01/04/19 [Simbrinza 1%-0.2% Eye Drops] Vit C/E/Zn/Coppr/Lutein/Zeaxan 1 tab PO BID 12/03/17 01/04/19 [Preservision Areds 2 Softgel] Ferrous Sulfate [Feosol] 325 mg PO DAILY 01/11/18 01/04/19 Ammonium Lactate Cream [Lac-Hydrin 1 applic TOPICAL BID PRN 02/10/18 01/04/19 12% Cream] Cholecalciferol (Vitamin D3) 2,000 unit PO DAILY 02/10/18 01/04/19 [Vitamin D3] Isosorbide Mononitrate ER [Imdur] 60 mg PO DAILY 02/10/18 01/04/19 Wheat Dextrin [Benefiber] 1 packet PO BID 02/10/18 01/04/19 Midodrine [ProAmatine] 10 mg PO TID 04/10/18 01/04/19 Rivaroxaban [Xarelto] 10 mg PO DAILY 04/10/18 01/04/19 Potassium Chloride ER [K-Dur 10] 30 meq PO QAM 06/02/18 01/04/19 Metoprolol Tartrate [Lopressor] 50 mg PO AC-BRKFST 06/14/18 01/04/19 Metoprolol Tartrate [Lopressor] 25 mg PO PC-LUNCH 06/15/18 01/04/19 Metoprolol Tartrate [Lopressor] 50 mg PO HS 09/18/18 01/04/19 Ondansetron [Zofran] 4 mg PO Q8HR PRN 09/18/18 01/04/19 Potassium Chloride ER [K-Dur 10] 20 meq PO DAILY@1500 09/18/18 01/04/19 traMADol HCL [Ultram] 50 mg PO DAILY@1600 01/04/19 01/04/19 Previous Rx's Medication Instructions Recorded Sodium Bicarbonate Tab 650 mg PO BID #60 tab 04/13/18 Torsemide [Demadex] 20 mg PO BID #60 tablet 06/22/18 Allergies Allergy/AdvReac Type Severity Reaction Status Date / Time atorvastatin calcium Allergy Unknown Verified 01/04/19 14:34 [From Lipitor] codeine Allergy Unknown Verified 01/04/19 14:34 [From Tylenol-Codeine #3] hydrocodone Allergy Vomiting Verified 01/04/19 14:34 Review of Systems ROS Statement: Those systems with pertinent positive or pertinent negative responses have been documented in the HPI. ROS Other: All systems not noted in ROS Statement are negative. Past Medical History Past Medical History: Atrial Fibrillation, Coronary Artery Disease (CAD), Cancer, Heart Failure, Diabetes Mellitus, Deep Vein Thrombosis (DVT), Eye Di sorder, GERD/Reflux, Hypertension, Renal Disease Additional Past Medical History / Comment(s): Macular Degeneration and glaucoma, gallstones, stage 4 kidney failure, hx Uterine & groin CA; WEARS BILAT THIGH HIGH HOSE, uses cane or walker, patient states she has "2 blood clots in right groin since 2003" family states now clot is "through the whole leg", CHF, rt hip bone and bone History of Any Multi-Drug Resistant Organisms: ESBL, VRE Date of last positivie culture/infection: 08/20/18 ESBL E.Coli; 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 left hip replacement, LEFT breast biopsy, darcy filter rt leg, biopsy of right nostril, biopsy rt breast Past Anesthesia/Blood Transfusion Reactions: No Reported Reaction Past Psychological History: No Psychological Hx Reported Smoking Status: Former smoker Past Alcohol Use History: None Reported Past Drug Use History: None Reported - Past Family History Mother Family Medical History: No Reported History Additional Family Medical History / Comment(s): Family states pt's mother " of pneumonia". Father Family Medical History: Diabetes Mellitus General Exam Limitations: physical limitation General appearance: alert, in no apparent distress Head exam: Present: atraumatic, normocephalic, normal inspection Eye exam: Present: normal appearance, PERRL, EOMI. Absent: scleral icterus, conjunctival injection, periorbital swelling ENT exam: Present: normal exam, mucous membranes moist Neck exam: Present: normal inspection, full ROM. Absent: tenderness, meningismus, lymphadenopathy Respiratory exam: Present: normal lung sounds bilaterally. Absent: respiratory distress, wheezes, rales, rhonchi, stridor Cardiovascular Exam: Present: regular rate, normal rhythm, normal heart sounds. Absent: systolic murmur, diastolic murmur, rubs, gallop, clicks GI/Abdominal exam: Present: soft, normal bowel sounds. Absent: distended, tenderness, guarding, rebound, rigid Extremities exam: Present: pedal edema (2+ pitting edema bilat) Neurological exam: Present: alert, oriented X3, CN II-XII intact Psychiatric exam: Present: normal affect, normal mood Course Vital Signs 01/04/19 01/04/19 13:08 16:44 Temperature 97.1 F L Pulse Rate 62 84 Respiratory 20 18 Rate Blood Pressure 114/82 122/88 O2 Sat by Pulse 100 97 Oximetry EKG Findings - EKG Comments: EKG Findings:: Atrial fibrillation, ventricular rate 90, QRS sikh 88, QTc 467 Medical Decision Making - Medical Decision Making 83 year old female presents for leg swelling and shortness of breath. States that she feels like this is her heart failure. On exam patient does have 2+ pitting edema bilaterally with some decreased breath sounds on the left lower lung devlin. CBC unremarkable. CMP does show a creatinine of 2.70 which is patient's baseline. Chest x-ray does show cardiomegaly of past mild central vascular congestion and a tiny right pleural effusion. Actually improved from prior. BNP is 17,000. Troponin negative. Discussed with family, they're very comfortable taking patient home. Stating that she is not able to get around because of the swelling in her legs. Patient will be admitted for heart failure treatment. - Lab Data Result diagrams: 01/04/19 15:00 01/04/19 15:00 Lab Results 01/04/19 01/04/19 01/04/19 Range/Units 15:00 15:00 15:00 WBC 9.2 (3.8-10.6) k/uL RBC 3.39 L (3.80-5.40) m/uL Hgb 12.4 (11.4-16.0) gm/dL Hct 38.5 (34.0-46.0) % MCV 113.4 H (80.0-100.0) fL MCH 36.5 H (25.0-35.0) pg MCHC 32.1 (31.0-37.0) g/dL RDW 18.6 H (11.5-15.5) % Plt Count 157 (150-450) k/uL Neutrophils % 77 % Lymphocytes % 14 % Monocytes % 6 % Eosinophils % 2 % Basophils % 0 % Neutrophils # 7.1 (1.3-7.7) k/uL Lymphocytes # 1.2 (1.0-4.8) k/uL Monocytes # 0.5 (0-1.0) k/uL Eosinophils # 0.2 (0-0.7) k/uL Basophils # 0.0 (0-0.2) k/uL Manual Slide Review Performed Polychromasia Present Hypochromasia Moderate Poikilocytosis (manual Present Anisocytosis Slight Macrocytosis Marked A PT (9.0-12.0) sec INR (<1.2) APTT (22.0-30.0) sec Sodium 140 (137-145) mmol/L Potassium 4.7 (3.5-5.1) mmol/L Chloride 108 H (98-107) mmol/L Carbon Dioxide 20 L (22-30) mmol/L Anion Gap 12 mmol/L BUN 66 H (7-17) mg/dL Creatinine 2.72 H (0.52-1.04) mg/dL Est GFR (CKD-EPI)AfAm 18 (>60 ml/min/1.73 sqM) Est GFR (CKD-EPI)NonAf 15 (>60 ml/min/1.73 sqM) Glucose 97 (74-99) mg/dL Calcium 9.4 (8.4-10.2) mg/dL Magnesium 2.2 (1.6-2.3) mg/dL Total Bilirubin 1.2 (0.2-1.3) mg/dL AST 20 (14-36) U/L ALT 19 (9-52) U/L Alkaline Phosphatase 110 (38-126) U/L Troponin I (0.000-0.034) ng/mL NT-Pro-B Natriuret Pep 00641 pg/mL Total Protein 6.9 (6.3-8.2) g/dL Albumin 3.9 (3.5-5.0) g/dL 01/04/19 01/04/19 Range/Units 15:00 15:00 WBC (3.8-10.6) k/uL RBC (3.80-5.40) m/uL Hgb (11.4-16.0) gm/dL Hct (34.0-46.0) % MCV (80.0-100.0) fL MCH (25.0-35.0) pg MCHC (31.0-37.0) g/dL RDW (11.5-15.5) % Plt Count (150-450) k/uL Neutrophils % % Lymphocytes % % Monocytes % % Eosinophils % % Basophils % % Neutrophils # (1.3-7.7) k/uL Lymphocytes # (1.0-4.8) k/uL Monocytes # (0-1.0) k/uL Eosinophils # (0-0.7) k/uL Basophils # (0-0.2) k/uL Manual Slide Review Polychromasia Hypochromasia Poikilocytosis (manual Anisocytosis Macrocytosis PT 13.3 H (9.0-12.0) sec INR 1.3 H (<1.2) APTT 34.9 H (22.0-30.0) sec Sodium (137-145) mmol/L Potassium (3.5-5.1) mmol/L Chloride (98-107) mmol/L Carbon Dioxide (22-30) mmol/L Anion Gap mmol/L BUN (7-17) mg/dL Creatinine (0.52-1.04) mg/dL Est GFR (CKD-EPI)AfAm (>60 ml/min/1.73 sqM) Est GFR (CKD-EPI)NonAf (>60 ml/min/1.73 sqM) Glucose (74-99) mg/dL Calcium (8.4-10.2) mg/dL Magnesium (1.6-2.3) mg/dL Total Bilirubin (0.2-1.3) mg/dL AST (14-36) U/L ALT (9-52) U/L Alkaline Phosphatase (38-126) U/L Troponin I <0.012 (0.000-0.034) ng/mL NT-Pro-B Natriuret Pep pg/mL Total Protein (6.3-8.2) g/dL Albumin (3.5-5.0) g/dL Disposition Clinical Impression: Pleural effusion, Heart failure Disposition: ADMITTED IP TO THIS HOSP Condition: Fair Is patient prescribed a controlled substance at d/c from ED?: No Referrals: Jak Nathan MD [Primary Care Provider] - 1-2 days Time of Disposition: 17:01
[2019-01-04 15:15] LABS: Anisocytosis Slight; Basophils % (A) 0 %; Eosinophils # (A) 0.2 k/uL (0-0.7); Eosinophils % (A) 2 %; HCT 38.5 % (34.0-46.0); HGB 12.4 gm/dL (11.4-16.0); Hypochromasia Moderate; Lymphocytes # (A) 1.2 k/uL (1.0-4.8); Lymphocytes % (A) 14 %; MCH 36.5 pg (25.0-35.0); MCHC 32.1 g/dL (31.0-37.0); MCV 113.4 fL (80.0-100.0); Macrocytosis Marked; Mean Platelet Volume 8.9; Monocytes # (A) 0.5 k/uL (0-1.0); Monocytes % (A) 6 %; Neutrophils # (A) 7.1 k/uL (1.3-7.7); Neutrophils % (A) 77 %; Platelet Count 157 k/uL (150-450); RBC 3.39 m/uL (3.80-5.40); RDW 18.6 % (11.5-15.5); WBC 9.2 k/uL (3.8-10.6)
[2019-01-04 15:24] LABS: Albumin 3.9 g/dL (3.5-5.0); Calcium 9.4 mg/dL (8.4-10.2); Magnesium 2.2 mg/dL (1.6-2.3); Potassium 4.7 mmol/L (3.5-5.1); Total Bilirubin 1.2 mg/dL (0.2-1.3); Total Protein 6.9 g/dL (6.3-8.2)
[2019-01-04 15:33] LABS: INR 1.3 (<1.2); Partial Thromboplastin Time 34.9 sec (22.0-30.0); Prothrombin Time 13.3 sec (9.0-12.0)
--- NOTE | 2019-01-04 16:05 | XR ---
EXAMINATION TYPE: XR chest 2V DATE OF EXAM: 01/04/2019 COMPARISON: Chest x-ray June 18, 2018. HISTORY: Chest pain and shortness of breath. TECHNIQUE: Frontal and lateral views of the chest are obtained. FINDINGS: There is persistent perihilar linear opacity favoring scarring. The cardiac silhouette si ze remains enlarged and there is tiny right pleural effusion, less prominent from prior. No signifi cant left-sided effusion. Perhaps mild central vascular congestion. The osseous structures are intact . IMPRESSION: Cardiomegaly of past mild central vascular congestion and tiny right pleural effusion. F indings improved from prior.
[2019-01-04 16:09] LABS: Poikilocytosis (M) Present; Polychromasia Present
[2019-01-04] MEDS ORDERED: FUROSEMIDE 10 MG/ML 2 ML VIAL IV ONE (16:10)
[2019-01-04] MEDS: FUROSEMIDE 10 MG/ML 4 ML VIAL IV STA (17:29)
[2019-01-04] MEDS ORDERED: ONDANSETRON 4 MG TAB PO PRN (17:49)
[2019-01-04] MEDS: traMADol 50 MG TAB PO SCH ×2 (18:33→22:55)
[2019-01-04] MEDS: MIDODRINE 5 MG TAB PO SCH (21:19)
[2019-01-04] MEDS: DOCUSATE 100 MG CAP PO SCH (22:55)
[2019-01-04] MEDS: METOPROLOL TARTRATE 50 MG TAB PO SCH (22:55)
[2019-01-05] MEDS: FUROSEMIDE 10 MG/ML 4 ML VIAL IV SCH ×2 (04:58→17:53)
[2019-01-05] MEDS: ISOSORBIDE MONONITRATE ER 60 MG TAB.ER.24H PO SCH (09:04)
[2019-01-05] MEDS: POTASSIUM CHLORIDE ER 10 MEQ TAB.ER.PRT PO SCH (09:04)
[2019-01-05] MEDS: traMADol 50 MG TAB PO SCH ×2 (09:05→22:42)
[2019-01-05] MEDS: PANTOPRAZOLE 40 MG TABLET PO SCH (09:06)
[2019-01-05] MEDS: MIDODRINE 5 MG TAB PO SCH ×3 (09:06→17:47)
[2019-01-05] MEDS: ALLOPURINOL 100 MG TAB PO SCH (09:07)
[2019-01-05] MEDS: METOPROLOL TARTRATE 50 MG TAB PO SCH ×2 (09:07→20:42)
[2019-01-05] MEDS: DOCUSATE 100 MG CAP PO SCH ×2 (09:07→20:42)
[2019-01-05] MEDS: RIVAROXABAN 10 MG TAB PO SCH (09:23)
[2019-01-05] MEDS: DORZOLAMIDE HCL 2% DROPS 10 ML BTL BOTH EYES SCH ×2 (10:04→20:42)
[2019-01-05] MEDS: BRIMONIDINE TARTRATE 0.2% DROPS 5 ML BTL BOTH EYES SCH ×2 (10:05→20:42)
[2019-01-05] MEDS: METOPROLOL TARTRATE 25 MG TAB PO SCH (13:39)
--- NOTE | 2019-01-05 14:21 | P.HPIM ---
History of Present Illness H&P Date: 01/05/19 Trina Carrillo is an 83-year-old female patient of Dr. Nathan, with known history of congestive heart failure, atrial fibrillation, coronary artery disease, diabetes mellitus, right lower extremity DVT, stage IV chronic kidney disease, who presented to [facility] emergency room with a chief complaint of worsening shortness of breath and bilateral lower extremity edema and 6 pound weight gain overnight she was evaluated in the emergency room she was given IV Lasix and was admitted to medical floor for further evaluation and treatment cardiology consultation was requested. On review of system patient is alert and oriented 3 in no apparent distress she denies any fever or chills no headache or dizziness no chest pain she has shortness of breath but no cough no nausea or vomiting no abdominal pain no diarrhea no burning was urination no frequency or urgency no hematuria. She has bilateral lower extremity edema on the right worse than on the left, she states she had previous lower extremity DVT on the right, she is maintained on Xarelto for anticoagulation in regard to atrial fibrillation and the right lower extremity DVT. Past Medical History Past Medical History: Atrial Fibrillation, Coronary Artery Disease (CAD), Cancer, Heart Failure, Diabetes Mellitus, Deep Vein Thrombosis (DVT), Eye Disorder, GERD/Reflux, Hypertension, Renal Disease Additional Past Medical History / Comment(s): Macular Degeneration and glaucoma, gallstones, stage 4 kidney failure, hx Uterine & groin CA; WEARS BILAT THIGH HIG H HOSE, uses cane or walker, patient states she has "2 blood clots in right groin since 2003" family states now clot is "through the whole leg", CHF, rt hip bone and bone History of Any Multi-Drug Resistant Organisms: ESBL, VRE Date of last positivie culture/infection: 08/20/18 ESBL E.Coli; 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 left hip replacement, LEFT breast biopsy, darcy filter rt leg, biopsy of right nostril, biopsy rt breast Past Anesthesia/Blood Transfusion Reactions: No Reported Reaction Past Psychological History: No Psychological Hx Reported Smoking Status: Former smoker Past Alcohol Use History: None Reported Additional Past Alcohol Use History / Comment(s): smoked 1 pkg from 1961 to 1971 Past Drug Use History: None Reported - Past Family History Mother Family Medical History: No Reported History Additional Family Medical History / Comment(s): Family states pt's mother " of pneumonia". Father Family Medical History: Diabetes Mellitus Medications and Allergies Home Medications Medication Instructions Recorded Confirmed Type Allopurinol [Zyloprim] 200 mg PO DAILY 01/22/14 01/04/19 History Linagliptin [Tradjenta] 5 mg PO DAILY@1500 01/22/14 01/04/19 History Omeprazole [PriLOSEC] 20 mg PO DAILY 01/22/14 01/04/19 History Docusate Sodium [Stool Softener] 100 mg PO BID 02/22/14 01/04/19 History Garlic 1 tab PO BID 02/22/14 01/04/19 History Calcitriol 0.25 mcg PO SUTUTHSA 08/22/14 01/04/19 History traMADol HCL [Ultram] 100 mg PO BID@0800,2300 01/13/16 01/04/19 History Brinzolamide/Brimonidine Tart 1 drop BOTH EYES BID 05/11/17 01/04/19 History [Simbrinza 1%-0.2% Eye Drops] Vit C/E/Zn/Coppr/Lutein/Zeaxan 1 tab PO BID 12/03/17 01/04/19 History [Preservision Areds 2 Softgel] Ferrous Sulfate [Feosol] 325 mg PO DAILY 01/11/18 01/04/19 History Ammonium Lactate Cream [Lac-Hydrin 1 applic TOPICAL BID PRN 02/10/18 01/04/19 History 12% Cream] Cholecalciferol (Vitamin D3) 2,000 unit PO DAILY 02/10/18 01/04/19 History [Vitamin D3] Isosorbide Mononitrate ER [Imdur] 60 mg PO DAILY 02/10/18 01/04/19 History Wheat Dextrin [Benefiber] 1 packet PO BID 02/10/18 01/04/19 History Midodrine [ProAmatine] 10 mg PO TID 04/10/18 01/04/19 History Rivaroxaban [Xarelto] 10 mg PO DAILY 04/10/18 01/04/19 History Sodium Bicarbonate Tab 650 mg PO BID #60 tab 04/13/18 01/04/19 Rx Potassium Chloride ER [K-Dur 10] 30 meq PO QAM 06/02/18 01/04/19 History Metoprolol Tartrate [Lopressor] 50 mg PO AC-BRKFST 06/14/18 01/04/19 History Metoprolol Tartrate [Lopressor] 25 mg PO PC-LUNCH 06/15/18 01/04/19 History Torsemide [Demadex] 20 mg PO BID #60 tablet 06/22/18 01/04/19 Rx Metoprolol Tartrate [Lopressor] 50 mg PO HS 09/18/18 01/04/19 History Ondansetron [Zofran] 4 mg PO Q8HR PRN 09/18/18 01/04/19 History Potassium Chloride ER [K-Dur 10] 20 meq PO DAILY@1500 09/18/18 01/04/19 History traMADol HCL [Ultram] 50 mg PO DAILY@1600 01/04/19 01/04/19 History Allergies Allergy/AdvReac Type Severity Reaction Status Date / Time atorvastatin calcium Allergy Unknown Verified 01/04/19 14:34 [From Lipitor] codeine Allergy Unknown Verified 01/04/19 14:34 [From Tylenol-Codeine #3] hydrocodone Allergy Vomiting Verified 01/04/19 14:34 Physical Exam Vitals: Vital Signs Temp Pulse Pulse Resp BP BP Pulse Ox 01/05/19 07:00 98.7 F 91 12 121/73 98 01/05/19 01:23 97.6 F 85 18 113/62 97 01/04/19 19:49 98.6 F 68 18 129/84 97 01/04/19 19:35 97.1 F L 91 18 124/50 96 01/04/19 19:28 124/50 96 01/04/19 17:35 91 18 124/58 98 01/04/19 16:44 84 18 122/88 97 Intake and Output 01/04/19 01/05/19 01/05/19 22:59 06:59 14:59 Other: Voiding Method Toilet Toilet # Voids 1 4 Weight 82 kg In general patient is alert and oriented 3 in no apparent distress HEENT head normocephalic and atraumatic Neck is supple no JVD no goiter no lymphadenopathy Chest exam reveals a few scattered crackles bilaterally no wheezing Cardiac exam reveals regular heart sounds no gallops no murmurs Abdomen is soft nontender no organomegaly with normal bowel sounds Extremity exam reveals no edema no cyanosis or clubbing Neurological examination reveals no gross focal deficit Results CBC & Chem 7: 01/04/19 15:00 01/04/19 15:00 Labs: Abnormal Lab Results - Last 24 Hours (Table) 01/04/19 01/04/19 01/04/19 Range/Units 15:00 15:00 15:00 RBC 3.39 L (3.80-5.40) m/uL MCV 113.4 H (80.0-100.0) fL MCH 36.5 H (25.0-35.0) pg RDW 18.6 H (11.5-15.5) % Macrocytosis Marked A PT 13.3 H (9.0-12.0) sec INR 1.3 H (<1.2) APTT 34.9 H (22.0-30.0) sec Chloride 108 H (98-107) mmol/L Carbon Dioxide 20 L (22-30) mmol/L BUN 66 H (7-17) mg/dL Creatinine 2.72 H (0.52-1.04) mg/dL Thrombosis Risk Factor Assmnt - Choose All That Apply Each Risk Factor Represents 3 Points: Age 75 years or older, History of DVT/PE Thrombosis Risk Factor Assessment Total Risk Factor Score: 6 Thrombosis Risk Factor Assessment Level: High Risk Assessment and Plan Plan: #1 acute congestive heart failure exacerbation, with 6 pound weight gain over night, bilateral lower extremity edema, worsening shortness of breath, and elevated BNP at 17,000, patient is receiving IV Lasix cautiously due to her stage IV chronic kidney disease Will monitor labs and daily weights very closely. #2 chronic kidney disease stage IV BUN 66 and creatinine 2.72 which is slightly increased from her previous baseline #3 underlying history of congestive heart failure last echo available in the computer is more than 1 year ago Will obtain echocardiogram #4 underlying history of diabetes mellitus, patient not on any medication at this time will check hemoglobin A1c #4 underlying history of atrial fibrillation #5 underlying history of right lower extremity DVT maintained on Xarelto Today patient was seen and examined labs x-ray results and medication were reviewed Cardiology consult was requested Continue was current management recheck labs in a.m. Prognosis is guarded due to advanced age and multiple medical problems
[2019-01-05 15:59] VITALS: BMI 33.0
[2019-01-05] MEDS: POTASSIUM CHLORIDE ER 20 MEQ TAB.ER PO SCH (17:48)
[2019-01-05] MEDS: FUROSEMIDE 10 MG/ML 4 ML VIAL IV STA (17:48)
[2019-01-06] MEDS: FUROSEMIDE 10 MG/ML 4 ML VIAL IV SCH ×2 (05:12→17:49)
[2019-01-06] MEDS: DOCUSATE 100 MG CAP PO SCH ×2 (08:42→20:03)
[2019-01-06] MEDS: METOPROLOL TARTRATE 50 MG TAB PO SCH ×2 (08:42→20:03)
[2019-01-06] MEDS: RIVAROXABAN 10 MG TAB PO SCH (08:43)
[2019-01-06] MEDS: ISOSORBIDE MONONITRATE ER 60 MG TAB.ER.24H PO SCH (08:43)
[2019-01-06] MEDS: MIDODRINE 5 MG TAB PO SCH ×3 (08:43→17:50)
[2019-01-06] MEDS: ALLOPURINOL 100 MG TAB PO SCH (08:43)
[2019-01-06] MEDS: PANTOPRAZOLE 40 MG TABLET PO SCH (08:43)
[2019-01-06] MEDS: traMADol 50 MG TAB PO SCH ×3 (08:43→23:18)
[2019-01-06] MEDS: POTASSIUM CHLORIDE ER 10 MEQ TAB.ER.PRT PO SCH (08:44)
[2019-01-06] MEDS: BRIMONIDINE TARTRATE 0.2% DROPS 5 ML BTL BOTH EYES SCH ×2 (08:44→20:03)
[2019-01-06] MEDS: DORZOLAMIDE HCL 2% DROPS 10 ML BTL BOTH EYES SCH ×2 (08:44→20:03)
[2019-01-06 09:25] LABS: Albumin 3.7 g/dL (3.5-5.0); Calcium 9.4 mg/dL (8.4-10.2); Potassium 3.9 mmol/L (3.5-5.1); Total Bilirubin 1.2 mg/dL (0.2-1.3); Total Protein 6.6 g/dL (6.3-8.2)
[2019-01-06 09:47] LABS: Anisocytosis Slight; Basophils % (A) 0 %; Eosinophils # (A) 0.1 k/uL (0-0.7); Eosinophils % (A) 2 %; HCT 36.5 % (34.0-46.0); HGB 11.2 gm/dL (11.4-16.0); Hypochromasia Moderate; Lymphocytes # (A) 1.1 k/uL (1.0-4.8); Lymphocytes % (A) 15 %; MCH 35.4 pg (25.0-35.0); MCHC 30.7 g/dL (31.0-37.0); MCV 115.2 fL (80.0-100.0); Macrocytosis Marked; Mean Platelet Volume 8.8; Monocytes # (A) 0.4 k/uL (0-1.0); Monocytes % (A) 5 %; Neutrophils # (A) 5.8 k/uL (1.3-7.7); Neutrophils % (A) 76 %; Platelet Count 159 k/uL (150-450); RBC 3.17 m/uL (3.80-5.40); RDW 18.7 % (11.5-15.5); WBC 7.7 k/uL (3.8-10.6)
--- NOTE | 2019-01-06 11:11 | P.PN ---
Subjective Progress Note Date: 01/06/19 Trina Carrillo is an 83-year-old female patient of Dr. Nathan, with known history of congestive heart failure, atrial fibrillation, coronary artery disease, diabetes mellitus, right lower extremity DVT, stage IV chronic kidney disease, who presented to [facility] emergency room with a chief complaint of worsening shortness of breath and bilateral lower extremity edema and 6 pound weight gain overnight she was evaluated in the emergency room she was given IV Lasix and was admitted to medical floor for further evaluation and treatment cardiology consultation was requested. On review of system patient is alert and oriented 3 in no apparent distress she denies any fever or chills no headache or dizziness no chest pain she has shortness of breath but no cough no nausea or vomiting no abdominal pain no diarrhea no burning was urination no frequency or urgency no hematuria. She has bilateral lower extremity edema on the right worse than on the left, she states she had previous lower extremity DVT on the right, she is maintained on Xarelto for anticoagulation in regard to atrial fibrillation and the right lower extremity DVT. On 01/06/2019 patient was seen and examined on the medical floor she is alert and oriented 3 in no apparent distress her shortness of breath and her lower extremity edema has improved since yesterday. Otherwise she denies any complaints there is no fever or chills no headache or dizziness no chest pain no cough no nausea or vomiting no abdominal pain no diarrhea and no urinary symptoms. Objective - Vital Signs Vital signs: Vital Signs Temp 98.7 F 01/06/19 07:00 Pulse 84 01/06/19 07:00 Resp 21 01/06/19 07:00 BP 138/84 01/06/19 07:00 Pulse Ox 97 01/06/19 07:00 Intake & Output 01/05/19 01/06/19 01/06/19 18:59 06:59 18:59 Weight 82 kg 82.4 kg Other: Voiding Method Toilet Toilet # Voids 2 1 # Bowel Movements 1 - Exam In general patient is alert and oriented 3 in no apparent distress HEENT head normocephalic and atraumatic Neck is supple no JVD no goiter no lymphadenopathy Chest exam reveals a few scattered crackles bilaterally no wheezing Cardiac exam reveals regular heart sounds no gallops no murmurs Abdomen is soft nontender no organomegaly with normal bowel sounds Extremity exam reveals no edema no cyanosis or clubbing Neurological examination reveals no gross focal deficit - Labs CBC & Chem 7: 01/06/19 07:55 01/06/19 07:55 Labs: Abnormal Lab Results - Last 24 Hours (Table) 01/06/19 01/06/19 Range/Units 07:55 07:55 RBC 3.17 L (3.80-5.40) m/uL Hgb 11.2 L (11.4-16.0) gm/dL MCV 115.2 H (80.0-100.0) fL MCH 35.4 H (25.0-35.0) pg MCHC 30.7 L (31.0-37.0) g/dL RDW 18.7 H (11.5-15.5) % Macrocytosis Marked A BUN 59 H (7-17) mg/dL Creatinine 2.85 H (0.52-1.04) mg/dL Glucose 134 H (74-99) mg/dL Assessment and Plan Plan: #1 acute congestive heart failure exacerbation, with 6 pound weight gain over night, bilateral lower extremity edema, worsening shortness of breath, and elevated BNP at 17,000, patient is receiving IV Lasix cautiously due to her stage IV chronic kidney disease Will monitor labs and daily weights very closely. #2 chronic kidney disease stage IV BUN 66 and creatinine 2.72 which is slightly increased from her previous baseline #3 underlying history of congestive heart failure last echo available in the computer is more than 1 year ago Will obtain echocardiogram #4 underlying history of diabetes mellitus, patient not on any medication at this time will check hemoglobin A1c #4 underlying history of atrial fibrillation #5 underlying history of right lower extremity DVT maintained on Xarelto Today patient was seen and examined labs x-ray results and medication were reviewed Cardiology consult was requested, echocardiogram ordered Continue was current management recheck labs in a.m. Prognosis is guarded due to advanced age and multiple medical problems
[2019-01-06] MEDS: METOPROLOL TARTRATE 25 MG TAB PO SCH (12:49)
[2019-01-06] MEDS: POTASSIUM CHLORIDE ER 20 MEQ TAB.ER PO SCH (15:36)
--- NOTE | 2019-01-06 21:03 | CONS ---
CONSULTATION Mrs. Carrillo is an 83-year-old female who is seen for the cardiac evaluation. This patient is regularly followed by Dr. Nathan. She has a history of atrial fibrillation, coronary artery disease, diabetes, and right lower extremity DVT as well as stage 4 kidney disease. Patient came to the emergency room because of shortness of breath and bilateral lower extremity edema. Patient had gained about 6 pounds of weight. She did not have any definite orthopnea or PND. She denies any chest discomfort. The patient has a known history of bilateral leg edema, right is worse than the left and with a history of a DVT and she is being maintained on Xarelto 10 mg daily. PAST MEDICAL HISTORY: Includes history of coronary artery disease, history of heart failure, atrial fibrillation. The patient has a macular degeneration and glaucoma. History of gallstone, appendicectomy, bowel resection, hysterectomy and joint replacement, left breast biopsy. The patient's home medications include Zyloprim once a day, Tradjenta 5 mg daily, Prilosec, Ultram, Benefiber, Xarelto 10 mg daily, sodium bicarbonate, Lopressor 50 mg in the morning, 25 mg in the evening, Demadex 20 mg b.i.d., Lopressor 50 mg daily, Ultram. PHYSICAL EXAMINATION: In the emergency room revealed the patient's oxygenation saturation was 97%. Blood pressure was 122/88 mmHg, heart rate was 84. At present, patient is sitting comfortably in the chair. Blood pressure is 110/77 mmHg. Head/ENT examination is negative. Neck is supple. There is no increase in jugular venous pressure. Both the carotid pulses are felt. There is no bruit. Chest is symmetrical. Heart the PMI is not felt. First and second heart sounds are heard. Lungs examination reveals bilateral diminished air entry. ABDOMEN: Soft. Extremities: There is the right 2+ edema on the right leg and minimal edema on the left leg. Chest x-ray shows minimal pleural effusion without any significant overt congestive cardiac failure. LABORATORY DATA: Patient's laboratory tests shows creatinine is 2.85 and a proBNP level is 17,000. The patient always has elevated BNP in the past. INR is 1.3 and hemoglobin is 11.2. The patient had a echocardiogram done in the past, which showed moderate to severe mitral regurgitation. ASSESSMENT AND PLAN: 1. This patient has presented with bilateral swelling in the legs and shortness of breath. 2. The patient has probably acute on chronic diastolic heart failure. Last echocardiogram showed moderate to severe mitral regurgitation. 3. Patient has a chronic atrial fibrillation. 4. Patient also has a history of deep vein thrombosis in the right leg. RECOMMENDATIONS: At present, I will recommend to continue the patient on current medications. Echo and Doppler study obtained. Once the patient's condition is improved, she can be switched to the oral Demadex from tomorrow. MMASTON / HARRISONN: [id number] /
[2019-01-07] MEDS: FUROSEMIDE 10 MG/ML 4 ML VIAL IV SCH (05:15)
[2019-01-07 07:03] LABS: Anisocytosis Slight; Basophils % (A) 0 %; Eosinophils # (A) 0.2 k/uL (0-0.7); Eosinophils % (A) 2 %; HCT 35.5 % (34.0-46.0); HGB 10.9 gm/dL (11.4-16.0); Hypochromasia Marked; Lymphocytes # (A) 1.1 k/uL (1.0-4.8); Lymphocytes % (A) 16 %; MCH 35.9 pg (25.0-35.0); MCHC 30.7 g/dL (31.0-37.0); Macrocytosis Marked; Mean Platelet Volume 8.7; Monocytes # (A) 0.4 k/uL (0-1.0); Monocytes % (A) 5 %; Neutrophils # (A) 5.3 k/uL (1.3-7.7); Neutrophils % (A) 74 %; Platelet Count 146 k/uL (150-450); RBC 3.04 m/uL (3.80-5.40); RDW 18.2 % (11.5-15.5); WBC 7.1 k/uL (3.8-10.6)
[2019-01-07 07:10] LABS: Albumin 3.5 g/dL (3.5-5.0); Calcium 9.2 mg/dL (8.4-10.2); Potassium 4.3 mmol/L (3.5-5.1); Total Bilirubin 1.1 mg/dL (0.2-1.3); Total Protein 6.3 g/dL (6.3-8.2)
[2019-01-07 07:24] LABS: MCV 116.9 fL (80.0-100.0)
[2019-01-07] MEDS: PANTOPRAZOLE 40 MG TABLET PO SCH (07:31)
[2019-01-07] MEDS: MIDODRINE 5 MG TAB PO SCH ×3 (07:31→17:30)
[2019-01-07] MEDS: traMADol 50 MG TAB PO SCH ×2 (07:31→15:18)
[2019-01-07] MEDS: RIVAROXABAN 10 MG TAB PO SCH (07:32)
[2019-01-07] MEDS: DOCUSATE 100 MG CAP PO SCH ×2 (07:32→20:48)
[2019-01-07] MEDS: ALLOPURINOL 100 MG TAB PO SCH (07:32)
[2019-01-07] MEDS: ISOSORBIDE MONONITRATE ER 60 MG TAB.ER.24H PO SCH (07:32)
[2019-01-07] MEDS: POTASSIUM CHLORIDE ER 10 MEQ TAB.ER.PRT PO SCH (07:32)
[2019-01-07] MEDS: BRIMONIDINE TARTRATE 0.2% DROPS 5 ML BTL BOTH EYES SCH ×2 (07:33→20:48)
[2019-01-07] MEDS: METOPROLOL TARTRATE 50 MG TAB PO SCH ×2 (07:33→20:48)
[2019-01-07] MEDS: DORZOLAMIDE HCL 2% DROPS 10 ML BTL BOTH EYES SCH ×2 (07:33→20:47)
--- NOTE | 2019-01-07 11:15 | ECHOF ---
Referral Reason:CHF MEASUREMENTS -------- HEIGHT: 157.5 cm WEIGHT: 83.9 kg BP: 133/83 RVIDd: 2.9 cm (< 3.3) IVSd: 1.2 cm (0.6 - 1.1) LVIDd: 5.1 cm (3.9 - 5.3) LVPWd: 1.2 cm (0.6 - 1.1) IVSs: 1.1 cm LVIDs: 4.7 cm LVPWs: 1.1 cm LAESV Index (A-L): 73.51 ml/m Ao Diam: 1.8 cm (2.0 - 3.7) AV Cusp: 0.9 cm (1.5 - 2.6) LA Diam: 6.0 cm (2.7 - 3.8) EPSS: 1.2 cm AV maxP.00 mmHg AV meanP.54 mmHg AR PHT: 251 ms RAP: 20.00 mmHg RVSP: 63.03 mmHg MV EF SLOPE: 82.24 mm/s (70 - 150) MV EXCURSION: 1.01 cm (> 18.000) FINDINGS -------- Atrial fibrillation. This was a technically good study. The left ventricular size is normal. There is mild concentric left ventricular hypertrophy. There is moderate global hypokinesis of LV . Overall left ventricular systolic function is moderate-shantell rely impaired with, an EF between 30 - 35 %. The right ventricle is normal in size. Left atrium is severely dilated by volume. The right atrial size is normal. Aortic valve is trileaflet and is mildly thickened. There is mild aortic regurgitation. There is mild aortic stenosis present. Peak/mean gradient across the valve is 15.00mmHg / 8.54mmHg. The mitral valve leaflets are mildly thickened. Severe mitral regurgitation is present. Severe tricuspid regurgitation present. There is moderate pulmonary hypertension. The right ventr icular systolic pressure, as measured by Doppler, is 63.03mmHg. The pulmonic valve is normal. The aortic root size is normal. The inferior vena cava is dilated with no significant inspiratory collapse which is consistent estima adeel right atrial pressure of >20 mmHg. There is a small, generalized pericardial effusion present. CONCLUSIONS -------- 1. Atrial fibrillation. 2. This was a technically good study. 3. The left ventricular size is normal. 4. There is mild concentric left ventricular hypertrophy. 5. There is moderate global hypokinesis of LV . 6. Overall left ventricular systolic function is moderate-severely impaired with, an EF between 30 - 35 %. 7. The right ventricle is normal in size. 8. Left atrium is severely dilated by volume. 9. The right atrial size is normal. 10. Aortic valve is trileaflet and is mildly thickened. 11. There is mild aortic regurgitation. 12. There is mild aortic stenosis present. 13. Peak/mean gradient across the valve is 15.00mmHg / 8.54mmHg. 14. The mitral valve leaflets are mildly thickened. 15. Severe mitral regurgitation is present. 16. Severe tricuspid regurgitation present. 17. There is moderate pulmonary hypertension. 18. The right ventricular systolic pressure, as measured by Doppler, is 63.03mmHg. 19. The pulmonic valve is normal. 20. The aortic root size is normal. 21. The inferior vena cava is dilated with no significant inspiratory collapse which is consistent es timated right atrial pressure of >20 mmHg. 22. There is a small, generalized pericardial effusion present. ACADEMIC SERVICES PROFESSIONAL: Lolly Hilton RDCS
[2019-01-07] MEDS ORDERED: AMMONIUM LACTATE 12% CREAM 140 GM TUBE TOPICAL PRN (11:44)
--- NOTE | 2019-01-07 11:49 | P.PN ---
Subjective Progress Note Date: 01/07/19 Trina Carrillo is an 83-year-old female patient of Dr. Nathan, with known history of congestive heart failure, atrial fibrillation, coronary artery disease, diabetes mellitus, right lower extremity DVT, stage IV chronic kidney disease, who presented to [facility] emergency room with a chief complaint of worsening shortness of breath and bilateral lower extremity edema and 6 pound weight gain overnight she was evaluated in the emergency room she was given IV Lasix and was admitted to medical floor for further evaluation and treatment cardiology consultation was requested. On review of system patient is alert and oriented 3 in no apparent distress she denies any fever or chills no headache or dizziness no chest pain she has shortness of breath but no cough no nausea or vomiting no abdominal pain no diarrhea no burning was urination no frequency or urgency no hematuria. She has bilateral lower extremity edema on the right worse than on the left, she states she had previous lower extremity DVT on the right, she is maintained on Xarelto for anticoagulation in regard to atrial fibrillation and the right lower extremity DVT. On 01/06/2019 patient was seen and examined on the medical floor she is alert and oriented 3 in no apparent distress her shortness of breath and her lower extremity edema has improved since yesterday. Otherwise she denies any complaints there is no fever or chills no headache or dizziness no chest pain no cough no nausea or vomiting no abdominal pain no diarrhea and no urinary symptoms. 01/07/2019 patient's shortness of breath and lower extremity edema are improving. Patient had echo completed today. Results are pending. She's currently on IV Lasix 40 mg every 12 hours. Cardiology is following. Patient did have a drop of her hemoglobin from 11.2-10.9. Denies any blood in her stools or black stools. Iron studies have been ordered. Patient denies any chest pain, nausea or vomiting. She is reporting that she is not urinating as much as she usually does with the IV Lasix. We'll check postvoid residual. Weight is currently 84.2 kg which is up from the 82.4 kg. Nephrology will be consulted. Patient sees Dr. Escobar in the outpatient setting Objective - Vital Signs Vital signs: Vital Signs Temp 97.7 F 01/07/19 07:42 Pulse 79 01/07/19 07:42 Resp 16 01/07/19 07:42 BP 118/87 01/07/19 07:42 Pulse Ox 99 01/07/19 07:42 Intake & Output 01/06/19 01/07/19 01/07/19 18:59 06:59 18:59 Intake Total 280 Output Total 200 Balance 80 Weight 84.2 kg Intake: Oral 280 Output: Urine 200 Other: Voiding Method Toilet # Voids 1 1 - Exam Head normocephalic Neck supple Lungs few crackles on the right base Heart regular rate and rhythm S1-S2, no rub or gallop Abdomen is soft nontender nondistended positive bowel sounds no hepatosplenomegaly Extremities +1 edema bilateral lower extremities right greater than left. Showing improvement. Neuro alert and orientated to 3 - Labs CBC & Chem 7: 01/07/19 06:43 01/07/19 06:43 Labs: Abnormal Lab Results - Last 24 Hours (Table) 01/06/19 01/07/19 01/07/19 Range/Units 07:55 06:43 06:43 RBC 3.17 L 3.04 L (3.80-5.40) m/uL Hgb 11.2 L 10.9 L (11.4-16.0) gm/dL MCV 115.2 H (80.0-100.0) fL MCH 35.4 H 35.9 H (25.0-35.0) pg MCHC 30.7 L 30.7 L (31.0-37.0) g/dL RDW 18.7 H 18.2 H (11.5-15.5) % Plt Count 146 L (150-450) k/uL Macrocytosis Marked A Marked A Chloride 109 H (98-107) mmol/L BUN 60 H (7-17) mg/dL Creatinine 2.66 H (0.52-1.04) mg/dL Glucose 104 H (74-99) mg/dL Assessment and Plan Assessment: #1 acute on chronic systolic congestive heart failure exacerbation: with 6 pound weight gain over night, bilateral lower extremity edema, worsening shortness of breath, and elevated BNP at 17,000, patient is receiving IV Lasix cautiously due to her stage IV chronic kidney disease Will monitor labs and daily weights very closely. Echo shows an EF of 30-35%. Mild aortic stenosis, mild aortic regurgitation, severe mitral regurgitation, severe tricuspid regurgitation, moderate pulmonary hypertension #2 chronic kidney disease stage IV BUN 66 and creatinine 2.72 which is slightly increased from her previous baseline #3 acute kidney injury : Consult nephrology. Likely related to cardiorenal syndrome #4 diabetes mellitus type 2: Check hemoglobin A1c. Add sliding scale coverage. Resume her Tradjenta #4 underlying history of atrial fibrillation #5 underlying history of right lower extremity DVT maintained on Xarelto #6 chronic persistent atrial fibrillation anticoagulated with Xarelto #7 iron deficiency anemia: Restart patient's iron. Check iron studies. Hemog lobin has dropped to 10.9. No active signs of bleeding. #8 right breast cancer status post lumpectomy on 10/24/2018 #9 possible urinary retention: Check postvoid residual DVT prophylaxis Xarelto and GI prophylaxis Protonix Consult physical therapy I performed an examination of the patient and discussed their management with the physician Supervisor [employer]. I have reviewed the Physician Supervisor [employer]'s notes and agree with the documented findings and plan of care
--- NOTE | 2019-01-07 11:55 | P.NPCON ---
History of Present Illness - Reason for Consult chronic renal failure - History of Present Illness Reason for consultation: Acute kidney injury on Chronic kidney disease stage IV History of present illness: Patient is a 83-year-old female seen in renal consultation for acute kidney injury on chronic kidney disease. Patient has chronic kidney disease stage IV secondary to cardiorenal syndrome with baseline creatinine the range of 2.4-2.7. Creatinine peaked at 2.85 this admission and is 2.66 today. Patient states she was taking torsemide 20 mg twice daily prior to hospital admission but had gained about 6 pounds overnight. She denies eating excessive amounts of salt. Denies vomiting or diarrhea. She was having dry heaves. Denies use of nonsteroidals. Patient complains of edema in her lower extremities. Echocardiogram this admission revealed ejection fraction of 30-35% with severe mitral and tricuspid regurgitation. She is also noted to have moderate pulmonary hypertension. Denies chest pain or shortness of breath. Hemodynamically stable. She is maintained on midodrine. Vital signs are stable. General: The patient appeared well nourished and normally developed. HEENT: Head exam is unremarkable. Neck is without jugular venous distension. LUNGS: Lungs are clear to auscultation and percussion. Breath sounds decreased. HEART: Rate and Rhythm are regular. First and second heart sounds normal. No murmurs, rubs or gallops. ABDOMEN: Abdominal exam reveals normal bowel sounds. Non-tender and non- distended. No evidence of peritonitis. EXTREMITITES: 1+ edema. Right greater than left. Past Medical History Past Medical History: Atrial Fibrillation, Coronary Artery Disease (CAD), Cancer, Heart Failure, Diabetes Mellitus, Deep Vein Thrombosis (DVT), Eye Disorder, GERD/Reflux, Hypertension, Renal Disease Additional Past Medical History / Comment(s): Macular Degeneration and glaucoma, gallstones, stage 4 kidney failure, hx Uterine & groin CA; WEARS BILAT THIGH HIGH HOSE, uses cane or walker, patient states she has "2 blood clots in right groin since 2003" family states now clot is "through the whole leg", CHF, rt hip bone and bone History of Any Multi-Drug Resistant Organisms: ESBL, VRE Date of last positivie culture/infection: 08/20/18 ESBL E.Coli; 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 left hip replacement, LEFT breast biopsy, darcy filter rt leg, biopsy of right nostril, biopsy rt breast Past Anesthesia/Blood Transfusion Reactions: No Reported Reaction Past Psychological History: No Psychological Hx Reported Smoking Status: Former smoker Past Alcohol Use History: None Reported Additional Past Alcohol Use History / Comment(s): smoked 1 pkg from 1961 to 1971 Past Drug Use History: None Reported - Past Family History Mother Family Medical History: No Reported History Additional Family Medical History / Comment(s): Family states pt's mother " of pneumonia". Father Family Medical History: Diabetes Mellitus Medications and Allergies Home Medications Medication Instructions Recorded Confirmed Type Allopurinol [Zyloprim] 200 mg PO DAILY 01/22/14 01/04/19 History Linagliptin [Tradjenta] 5 mg PO DAILY@1500 01/22/14 01/04/19 History Omeprazole [PriLOSEC] 20 mg PO DAILY 01/22/14 01/04/19 History Docusate Sodium [Stool Softener] 100 mg PO BID 02/22/14 01/04/19 History Garlic 1 tab PO BID 02/22/14 01/04/19 History Calcitriol 0.25 mcg PO SUTUTHSA 08/22/14 01/04/19 History traMADol HCL [Ultram] 100 mg PO BID@0800,2300 01/13/16 01/04/19 History Brinzolamide/Brimonidine Tart 1 drop BOTH EYES BID 05/11/17 01/04/19 History [Simbrinza 1%-0.2% Eye Drops] Vit C/E/Zn/Coppr/Lutein/Zeaxan 1 tab PO BID 12/03/17 01/04/19 History [Preservision Areds 2 Softgel] Ferrous Sulfate [Feosol] 325 mg PO DAILY 01/11/18 01/04/19 History Ammonium Lactate Cream [Lac-Hydrin 1 applic TOPICAL BID PRN 02/10/18 01/04/19 History 12% Cream] Cholecalciferol (Vitamin D3) 2,000 unit PO DAILY 02/10/18 01/04/19 History [Vitamin D3] Isosorbide Mononitrate ER [Imdur] 60 mg PO DAILY 02/10/18 01/04/19 History Wheat Dextrin [Benefiber] 1 packet PO BID 02/10/18 01/04/19 History Midodrine [ProAmatine] 10 mg PO TID 04/10/18 01/04/19 History Rivaroxaban [Xarelto] 10 mg PO DAILY 04/10/18 01/04/19 History Sodium Bicarbonate Tab 650 mg PO BID #60 tab 04/13/18 01/04/19 Rx Potassium Chloride ER [K-Dur 10] 30 meq PO QAM 06/02/18 01/04/19 History Metoprolol Tartrate [Lopressor] 50 mg PO AC-BRKFST 06/14/18 01/04/19 History Metoprolol Tartrate [Lopressor] 25 mg PO PC-LUNCH 06/15/18 01/04/19 History Torsemide [Demadex] 20 mg PO BID #60 tablet 06/22/18 01/04/19 Rx Metoprolol Tartrate [Lopressor] 50 mg PO HS 09/18/18 01/04/19 History Ondansetron [Zofran] 4 mg PO Q8HR PRN 09/18/18 01/04/19 History Potassium Chloride ER [K-Dur 10] 20 meq PO DAILY@1500 09/18/18 01/04/19 History traMADol HCL [Ultram] 50 mg PO DAILY@1600 01/04/19 01/04/19 History Allergies Allergy/AdvReac Type Severity Reaction Status Date / Time atorvastatin calcium Allergy Unknown Verified 01/04/19 14:34 [From Lipitor] codeine Allergy Unknown Verified 01/04/19 14:34 [From Tylenol-Codeine #3] hydrocodone Allergy Vomiting Verified 01/04/19 14:34 Physical Exam Vitals: Vital Signs Temp Pulse Resp BP Pulse Ox 01/07/19 07:42 97.7 F 79 16 118/87 99 01/07/19 01:02 97.5 F L 74 16 133/83 99 01/06/19 20:06 97.7 F 80 17 144/73 99 01/06/19 15:00 98.2 F 90 12 110/77 90 L 01/06/19 12:46 87 113/75 Intake and Output 01/06/19 01/07/19 01/07/19 22:59 06:59 14:59 Intake Total 280 Output Total 200 Balance -200 280 Intake: Oral 280 Output: Urine 200 Other: # Voids 1 Weight 84.2 kg Results - Lab Results Most recent lab results Calcium 9.2 mg/dL (8.4-10.2) 01/07/19 06:43 Magnesium 2.2 mg/dL (1.6-2.3) 01/04/19 15:00 01/07/19 06:43 01/07/19 06:43 Assessment and Plan Plan: assessment: 1. Acute kidney injury mostly prerenal secondary to cardiorenal syndrome. Creatinine peaked at 2.85 this admission and is 2.66 today. 2. Chronic kidney disease stage IV secondary to cardiorenal syndrome with baseline creatinine in the range of 2.4-2.7. 3. Volume overload. 4. Systolic CHF with ejection fraction of 30-35% with severe mitral and tricuspid regurgitation. 5. Moderate pulmonary hypertension. 6. Metabolic acidosis secondary to chronic kidney disease maintained on oral sodium bicarbonate. Better. 7. History of DVT maintained on anticoagulation. 8. Diabetes mellitus. Plan: I will increase Lasix to 80 mg IV twice daily. Add metolazone 5 mg once daily. Check postvoid residual to make sure no underlying urinary retention. Low-salt diet. Repeat electrolytes in the morning. Thank you for the consultation. I will continue to follow the patient with you during her hospital stay.
[2019-01-07] MEDS: FUROSEMIDE 10 MG/ML 10 ML VIAL IV SCH ×2 (12:29→20:48)
[2019-01-07] MEDS: METOPROLOL TARTRATE 25 MG TAB PO SCH (12:30)
[2019-01-07] MEDS: METOLAZONE 5 MG TAB PO SCH (12:30)
--- NOTE | 2019-01-07 14:05 | P.PN ---
Subjective This is a pleasant 83-year-old female past medical history significant for chronic right lower extremity DVT, chronic kidney disease, chronic non- ischemic cardiomyopathy, dyslipidemia, chronic persistent atrial fibrillation on prison anticoagulation, hypertension, severe mitral regurgitation and dyslipidemia. She follows with Dr. May in the office. We are following her due to shortness of breath and lower extremity edema. She is seen and examined sitting up in the chair with family at the bedside. She states her breath has improved since admission however, she continues to have lower extremity edema that is non-pitting. She denies PND/orthopnea. Echocardiogram obtained reveals impaired LV systolic function with EF 30-35%, mild AR, mild As mean gradient 8 mmHg, severe MR, severed TR and moderate pulmonary hypertension with RVSP 63 mmHg. She has been seen by Dr. Tate and lasix has been increased to 80 mg IV BID with metolazone added. Blood pressure 118/87 heart rate 79 afebrile and maintaining oxygen saturation on room air. Laboratory data reviewed, WBC 7.1, hemoglobin 10.9, platelets 146, sodium 142, potassium 4.3, creatinine 2.66 with a GFR 16. Currently maintained on lasix 80 mg IV BID, imdur 60 mg daily, met olazone 5 mg daily, lopressor 50 mg AM, 25 mg at lunch and 50 mg at bedside, xarelto 10 mg daily and midodrine 10 mg TID. GENERAL: Well-appearing, well-nourished and in no acute distress. NECK: Supple without JVD or thyromegaly. LUNGS: Breath sounds clear to auscultation bilaterally. Respiration equal and unlabored. No wheezes, rales or rhonchi. Diminished bilaterally. HEART: irregular rate and rhythm with systolic ejection murmur, no rubs or gallops. S1 and S2 heard. EXTREMITIES: Normal range of motion, bilateral lower extremity non-pitting edema right greater than left. No clubbing or cyanosis. Peripheral pulses intact. ASSESSMENT Acute on chronic systolic heart failure Acute on chronic kidney disease, stage IV History of non-ischemic cardiomyopathy Severe mitral regurgitation Chronic persistent atrial fibrillation on prison anti-coagulation History of chronic DVT right lower extremity PLAN Continue current medical regimen. Nephrology dosing IV lasix. Repeat chest xray in the morning. Nurse Practitioner note has been reviewed, I agree with a documented findings and plan of care. Patient was seen and examined. Objective - Vital Signs Vital signs: Vital Signs Temp 97.7 F 01/07/19 07:42 Pulse 79 01/07/19 07:42 Resp 16 01/07/19 07:42 BP 118/87 01/07/19 07:42 Pulse Ox 99 01/07/19 07:42 Intake & Output 01/06/19 01/07/19 01/07/19 18:59 06:59 18:59 Intake Total 280 Output Total 200 Balance 80 Weight 84.2 kg Intake: Oral 280 Output: Urine 200 Other: Voiding Method Toilet # Voids 1 1 - Labs CBC & Chem 7: 01/07/19 06:43 01/07/19 06:43 Labs: Abnormal Lab Results - Last 24 Hours (Table) 01/07/19 01/07/19 Range/Units 06:43 06:43 RBC 3.04 L (3.80-5.40) m/uL Hgb 10.9 L (11.4-16.0) gm/dL MCV 116.9 H (80.0-100.0) fL MCH 35.9 H (25.0-35.0) pg MCHC 30.7 L (31.0-37.0) g/dL RDW 18.2 H (11.5-15.5) % Plt Count 146 L (150-450) k/uL Macrocytosis Marked A Chloride 109 H (98-107) mmol/L BUN 60 H (7-17) mg/dL Creatinine 2.66 H (0.52-1.04) mg/dL Glucose 104 H (74-99) mg/dL
[2019-01-07] MEDS ORDERED: LINAGLIPTIN 5 MG TABLET PO SCH (15:00)
[2019-01-07] MEDS: POTASSIUM CHLORIDE ER 20 MEQ TAB.ER PO SCH (15:19)
[2019-01-07 18:01] LABS: Iron Saturation 11.61 (12.00-45.00)
[2019-01-07] MEDS: SODIUM BICARBONATE TAB 650 MG TAB PO SCH (20:48)
[2019-01-07] MEDS: PSYLLIUM HUSK 100% 6 GM PACKET PO SCH (20:49)
[2019-01-07] MEDS: VIT A,C & E-LUTEIN-MINERALS 1 EACH TAB PO SCH (20:49)
[2019-01-07 22:13] LABS: Hemoglobin A1C 6.3 % (4.0-6.0)
[2019-01-08] MEDS: traMADol 50 MG TAB PO SCH ×4 (00:08→22:23)
[2019-01-08 07:59] LABS: Anisocytosis Slight; Basophils % (A) 0 %; Eosinophils # (A) 0.1 k/uL (0-0.7); Eosinophils % (A) 2 %; HCT 35.4 % (34.0-46.0); HGB 10.8 gm/dL (11.4-16.0); Hypochromasia Moderate; Lymphocytes % (A) 15 %; MCH 35.5 pg (25.0-35.0); MCHC 30.5 g/dL (31.0-37.0); MCV 116.5 fL (80.0-100.0); Macrocytosis Marked; Mean Platelet Volume 7.9; Monocytes # (A) 0.4 k/uL (0-1.0); Monocytes % (A) 5 %; Neutrophils % (A) 74 %; Platelet Count 148 k/uL (150-450); RBC 3.04 m/uL (3.80-5.40); RDW 18.4 % (11.5-15.5); WBC 6.7 k/uL (3.8-10.6)
[2019-01-08] MEDS: FUROSEMIDE 10 MG/ML 10 ML VIAL IV SCH ×2 (08:29→22:21)
[2019-01-08] MEDS: VIT A,C & E-LUTEIN-MINERALS 1 EACH TAB PO SCH ×2 (08:30→22:24)
[2019-01-08] MEDS: METOLAZONE 5 MG TAB PO SCH (08:30)
[2019-01-08] MEDS: BRIMONIDINE TARTRATE 0.2% DROPS 5 ML BTL BOTH EYES SCH ×2 (08:30→22:21)
[2019-01-08] MEDS: DORZOLAMIDE HCL 2% DROPS 10 ML BTL BOTH EYES SCH ×2 (08:30→22:21)
[2019-01-08] MEDS: POTASSIUM CHLORIDE ER 10 MEQ TAB.ER.PRT PO SCH (08:30)
[2019-01-08] MEDS: METOPROLOL TARTRATE 50 MG TAB PO SCH ×2 (08:31→22:22)
[2019-01-08] MEDS: CHOLECALCIFEROL 1,000 UNIT TAB PO SCH (08:31)
[2019-01-08] MEDS: ISOSORBIDE MONONITRATE ER 60 MG TAB.ER.24H PO SCH (08:31)
[2019-01-08] MEDS: PANTOPRAZOLE 40 MG TABLET PO SCH (08:31)
[2019-01-08] MEDS: RIVAROXABAN 10 MG TAB PO SCH (08:31)
[2019-01-08] MEDS: CALCITRIOL 0.25 MCG CAP PO SCH (08:31)
[2019-01-08] MEDS: MIDODRINE 5 MG TAB PO SCH ×3 (08:31→15:59)
[2019-01-08] MEDS: DOCUSATE 100 MG CAP PO SCH ×2 (08:31→22:21)
[2019-01-08] MEDS: ALLOPURINOL 100 MG TAB PO SCH (08:31)
[2019-01-08] MEDS: PSYLLIUM HUSK 100% 6 GM PACKET PO SCH ×2 (08:32→22:22)
[2019-01-08] MEDS: FERROUS SULFATE 325 MG TAB PO SCH (08:32)
[2019-01-08] MEDS: SODIUM BICARBONATE TAB 650 MG TAB PO SCH (08:33)
[2019-01-08 08:34] LABS: Albumin 3.5 g/dL (3.5-5.0); Calcium 9.5 mg/dL (8.4-10.2); Potassium 3.3 mmol/L (3.5-5.1); Total Bilirubin 1.2 mg/dL (0.2-1.3); Total Protein 6.3 g/dL (6.3-8.2)
--- NOTE | 2019-01-08 08:54 | XR ---
EXAMINATION TYPE: XR chest 2V DATE OF EXAM: 01/08/2019 COMPARISON: 01/04/2019 TECHNIQUE: PA and lateral views submitted. HISTORY: Shortness of breath FINDINGS: Right-sided consolidation and small effusion noted with perihilar subsegmental changes. Heart is enla rged. No pneumothorax. Arthropathy of the shoulders. Coarsened interstitium. IMPRESSION: 1. Right perihilar and lower lobe infiltrate with small effusion are stable. Correlate for pneumonia underlying CHF in the differential diagnosis. Findings are stable.
[2019-01-08] MEDS ORDERED: POTASSIUM CHLORIDE ER 20 MEQ TAB.ER PO STA ×2 (10:38→11:39)
--- NOTE | 2019-01-08 11:22 | P.PN ---
Subjective This is a pleasant 83-year-old female past medical history significant for chronic right lower extremity DVT, chronic kidney disease, chronic non- ischemic cardiomyopathy, dyslipidemia, chronic persistent atrial fibrillation on alf anticoagulation, hypertension, severe mitral regurgitation and dyslipidemia. She follows with Dr. May in the office. We are following her due to shortness of breath and lower extremity edema. She is seen and examined sitting up in the chair with family at the bedside. She states her breath has improved since admission however, she continues to have lower extremity edema that is non-pitting. She denies PND/orthopnea. Echocardiogram obtained reveals impaired LV systolic function with EF 30-35%, mild AR, mild As mean gradient 8 mmHg, severe MR, severed TR and moderate pulmonary hypertension with RVSP 63 mmHg. She has been seen by Dr. Tate and lasix has been increased to 80 mg IV BID with metolazone added. Blood pressure 118/87 heart rate 79 afebrile and maintaining oxygen saturation on room air. Laboratory data reviewed, WBC 7.1, hemoglobin 10.9, platelets 146, sodium 142, potassium 4.3, creatinine 2.66 with a GFR 16. Currently maintained on lasix 80 mg IV BID, imdur 60 mg daily, met olazone 5 mg daily, lopressor 50 mg AM, 25 mg at lunch and 50 mg at bedside, xarelto 10 mg daily and midodrine 10 mg TID. 01/08/2019 Pt is seen and examined sitting up in the chair with family at the bedside. She denies significant shortness of breath. She states she has been up to the bathroom multiple times through the night. Urine output 1800 cc with a negative fluid balance. Weight is down from admission. Laboratory data reviewed, WBC 6.7, hgb 10.8, plt 148, sodium 143, potassium 3.3, magnesium 2.0, creatinine 2.78 with GFR of 15. Blood pressure 125/75 heart rate 87 afebrile maintaining oxygen saturation on room air. GENERAL: Well-appearing, well-nourished and in no acute distress. NECK: Supple without JVD or thyromegaly. LUNGS: Breath sounds clear to auscultation bilaterally. Respiration equal and unlabored. No wheezes, rales or rhonchi. Diminished bilaterally. HEART: irregular rate and rhythm with systolic ejection murmur, no rubs or gallops. S1 and S2 heard. EXTREMITIES: Normal range of motion, bilateral lower extremity non-pitting edema right greater than left. No clubbing or cyanosis. Peripheral pulses intact. ASSESSMENT Acute on chronic systolic heart failure Acute on chronic kidney disease, stage IV History of non-ischemic cardiomyopathy Severe mitral regurgitation Chronic persistent atrial fibrillation on alf anti-coagulation History of chronic DVT right lower extremity PLAN Stable from a cardiac perspective. Transition to PO demadex 20 mg BID if ok with nephrology. Follow up with Dr. May upon discharge. Nurse Practitioner note has been reviewed, I agree with a documented findings and plan of care. Patient was seen and examined. Objective - Vital Signs Vital signs: Vital Signs Temp 97.6 F 01/08/19 07:53 Pulse 87 01/08/19 07:53 Resp 16 01/08/19 07:53 BP 125/75 01/08/19 07:53 Pulse Ox 98 01/08/19 07:53 Intake & Output 01/07/19 01/08/19 01/08/19 18:59 06:59 18:59 Intake Total 300 100 Output Total 1800 Balance -1500 100 Weight 80.1 kg Intake: Oral 300 100 Output: Urine 1800 Other: Voiding Method Toilet Toilet Diaper Diaper Incontinent Incontinent # Voids 3 - Labs CBC & Chem 7: 01/08/19 06:57 01/08/19 06:57 Labs: Abnormal Lab Results - Last 24 Hours (Table) 01/07/19 01/07/19 01/07/19 Range/Units 06:43 06:43 06:43 RBC (3.80-5.40) m/uL Hgb (11.4-16.0) gm/dL MCV 116.9 H (80.0-100.0) fL MCH (25.0-35.0) pg MCHC (31.0-37.0) g/dL RDW (11.5-15.5) % Plt Count (150-450) k/uL Macrocytosis Potassium (3.5-5.1) mmol/L BUN (7-17) mg/dL Creatinine (0.52-1.04) mg/dL Hemoglobin A1c 6.3 H (4.0-6.0) % Iron 36 L (50-170) ug/dL Iron Saturation 11.61 L (12.00-45.00) 06/04/19 06/04/19 Range/Units 06:57 06:57 RBC 3.04 L (3.80-5.40) m/uL Hgb 10.8 L (11.4-16.0) gm/dL MCV 116.5 H (80.0-100.0) fL MCH 35.5 H (25.0-35.0) pg MCHC 30.5 L (31.0-37.0) g/dL RDW 18.4 H (11.5-15.5) % Plt Count 148 L (150-450) k/uL Macrocytosis Marked A Potassium 3.3 L (3.5-5.1) mmol/L BUN 60 H (7-17) mg/dL Creatinine 2.78 H (0.52-1.04) mg/dL Hemoglobin A1c (4.0-6.0) % Iron (50-170) ug/dL Iron Saturation (12.00-45.00)
[2019-01-08] MEDS: INSULIN ASPART (NovoLOG) 100 UNIT/ML VIAL SQ SCH ×3 (11:40→22:22)
--- NOTE | 2019-01-08 11:40 | P.PN ---
Subjective Patient is seen in follow-up for acute kidney injury on chronic kidney disease. Patient has chronic knee disease stage IV secondary to cardiorenal syndrome with baseline creatinine in the range of 2.4-2.7. Patient presented to the hospital with worsening edema. She is currently maintained on Lasix 80 mg IV twice daily. Weight is trending down. Edema is improving. Renal function is a little worse with creatinine at 2.78 today. Vital signs are stable. General: The patient appeared well nourished and normally developed. HEENT: Head exam is unremarkable. Neck is without jugular venous distension. LUNGS: Lungs are clear to auscultation and percussion. Breath sounds decreased. HEART: Rate and Rhythm are regular. First and second heart sounds normal. No murmurs, rubs or gallops. ABDOMEN: Abdominal exam reveals normal bowel sounds. Non-tender and non- distended. No evidence of peritonitis. EXTREMITITES: 1+ edema. Objective - Vital Signs Vital signs: Vital Signs Temp 97.6 F 01/08/19 07:53 Pulse 87 01/08/19 07:53 Resp 16 01/08/19 07:53 BP 125/75 01/08/19 07:53 Pulse Ox 98 01/08/19 07:53 Intake & Output 01/07/19 01/08/19 01/08/19 18:59 06:59 18:59 Intake Total 300 100 Output Total 1800 Balance -1500 100 Weight 80.1 kg Intake: Oral 300 100 Output: Urine 1800 Other: Voiding Method Toilet Toilet Diaper Diaper Incontinent Incontinent # Voids 3 - Labs CBC & Chem 7: 01/08/19 06:57 01/08/19 06:57 Labs: Abnormal Lab Results - Last 24 Hours (Table) 01/07/19 01/07/19 01/07/19 Range/Units 06:43 06:43 06:43 RBC (3.80-5.40) m/uL Hgb (11.4-16.0) gm/dL MCV 116.9 H (80.0-100.0) fL MCH (25.0-35.0) pg MCHC (31.0-37.0) g/dL RDW (11.5-15.5) % Plt Count (150-450) k/uL Macrocytosis Potassium (3.5-5.1) mmol/L BUN (7-17) mg/dL Creatinine (0.52-1.04) mg/dL Hemoglobin A1c 6.3 H (4.0-6.0) % Iron 36 L (50-170) ug/dL Iron Saturation 11.61 L (12.00-45.00) 01/08/19 01/08/19 Range/Units 06:57 06:57 RBC 3.04 L (3.80-5.40) m/uL Hgb 10.8 L (11.4-16.0) gm/dL MCV 116.5 H (80.0-100.0) fL MCH 35.5 H (25.0-35.0) pg MCHC 30.5 L (31.0-37.0) g/dL RDW 18.4 H (11.5-15.5) % Plt Count 148 L (150-450) k/uL Macrocytosis Marked A Potassium 3.3 L (3.5-5.1) mmol/L BUN 60 H (7-17) mg/dL Creatinine 2.78 H (0.52-1.04) mg/dL Hemoglobin A1c (4.0-6.0) % Iron (50-170) ug/dL Iron Saturation (12.00-45.00) Assessment and Plan Plan: assessment: 1. Acute kidney injury mostly prerenal secondary to cardiorenal syndrome. Creatinine peaked at 2.85 this admission; 2.78 today. 2. Chronic kidney disease stage IV secondary to cardiorenal syndrome with baseline creatinine in the range of 2.4-2.7. 3. Volume overload. Improving with diuresis. 4. Systolic CHF with ejection fraction of 30-35% with severe mitral and tricuspid regurgitation. 5. Moderate pulmonary hypertension. 6. Metabolic acidosis secondary to chronic kidney disease maintained on oral sodium bicarbonate. Better. 7. History of DVT maintained on anticoagulation. 8. Diabetes mellitus. 9. Hypokalemia secondary to diuresis. Magnesium normal. 10. Anemia of chronic kidney disease. Iron deficiency noted. Plan: Maintain Lasix 80 mg IV twice daily for another day. Maintain metolazone 5 mg once daily. Discontinue sodium bicarbonate. Low-salt diet. Repeat electrolytes in the morning. Replace potassium. IV iron 3 doses. First dose today.
[2019-01-08 11:41] LABS: Glucose,Whole Blood 105 mg/dL (75-99)
--- NOTE | 2019-01-08 11:45 | P.PN ---
Subjective Progress Note Date: 01/08/19 Trina Carrillo is an 83-year-old female patient of Dr. Nathan, with known history of congestive heart failure, atrial fibrillation, coronary artery disease, diabetes mellitus, right lower extremity DVT, stage IV chronic kidney disease, who presented to [facility] emergency room with a chief complaint of worsening shortness of breath and bilateral lower extremity edema and 6 pound weight gain overnight she was evaluated in the emergency room she was given IV Lasix and was admitted to medical floor for further evaluation and treatment cardiology consultation was requested. On review of system patient is alert and oriented 3 in no apparent distress she denies any fever or chills no headache or dizziness no chest pain she has shortness of breath but no cough no nausea or vomiting no abdominal pain no diarrhea no burning was urination no frequency or urgency no hematuria. She has bilateral lower extremity edema on the right worse than on the left, she states she had previous lower extremity DVT on the right, she is maintained on Xarelto for anticoagulation in regard to atrial fibrillation and the right lower extremity DVT. On 01/06/2019 patient was seen and examined on the medical floor she is alert and oriented 3 in no apparent distress her shortness of breath and her lower extremity edema has improved since yesterday. Otherwise she denies any complaints there is no fever or chills no headache or dizziness no chest pain no cough no nausea or vomiting no abdominal pain no diarrhea and no urinary symptoms. 01/07/2019 patient's shortness of breath and lower extremity edema are improving. Patient had echo completed today. Results are pending. She's currently on IV Lasix 40 mg every 12 hours. Cardiology is following. Patient did have a drop of her hemoglobin from 11.2-10.9. Denies any blood in her stools or black stools. Iron studies have been ordered. Patient denies any chest pain, nausea or vomiting. She is reporting that she is not urinating as much as she usually does with the IV Lasix. We'll check postvoid residual. Weight is currently 84.2 kg which is up from the 82.4 kg. Nephrology will be consulted. Patient sees Dr. Escobar in the outpatient setting 01/08/2019 patient was seen by nephrology yesterday. They had increased the IV Lasix from 40 mg twice a day to 80 mg IV twice a day. Patient has had a decrease in her weight from 84.2 kg to 80.1 kg. She does report improvement in her shortness of breath and her lower extremity edema. Chest x-ray from this morning shows a right perihilar and lower lobe infiltrate correlate for pne umonia or underlying CHF. Patient has had no fever no elevated white count and no snacking cough. Likely symptoms are related to CHF. Patient denies any chest pain, nausea or vomiting, bowel movement changes or urinary symptoms. Hemoglobin is down to 10.8. Patient denies any blood in her stools. Iron is low at 36 and she is on ferrous sulfate 325 mg daily. Patient seen by cardiology and they are clearing her for discharge and recommend Demadex 20 mg twice a day. Objective - Vital Signs Vital signs: Vital Signs Temp 97.6 F 01/08/19 07:53 Pulse 87 01/08/19 07:53 Resp 16 01/08/19 07:53 BP 125/75 01/08/19 07:53 Pulse Ox 98 01/08/19 07:53 Intake & Output 01/07/19 01/08/19 01/08/19 18:59 06:59 18:59 Intake Total 300 100 Output Total 1800 Balance -1500 100 Weight 80.1 kg Intake: Oral 300 100 Output: Urine 1800 Other: Voiding Method Toilet Toilet Diaper Diaper Incontinent Incontinent # Voids 3 - Exam Head normocephalic Neck supple Lungs diminished at the bases but improvement in air Heart regular rate and rhythm S1-S2, no rub or gallop Abdomen is soft nontender nondistended positive bowel sounds no hepatosplenomegaly Extremities +1 edema bilateral lower extremities right greater than left. Showing improvement. Neuro alert and orientated to 3 - Labs CBC & Chem 7: 01/08/19 06:57 01/08/19 06:57 Labs: Abnormal Lab Results - Last 24 Hours (Table) 01/07/19 01/07/19 01/07/19 Range/Units 06:43 06:43 06:43 RBC (3.80-5.40) m/uL Hgb (11.4-16.0) gm/dL MCV 116.9 H (80.0-100.0) fL MCH (25.0-35.0) pg MCHC (31.0-37.0) g/dL RDW (11.5-15.5) % Plt Count (150-450) k/uL Macrocytosis Potassium (3.5-5.1) mmol/L BUN (7-17) mg/dL Creatinine (0.52-1.04) mg/dL Hemoglobin A1c 6.3 H (4.0-6.0) % Iron 36 L (50-170) ug/dL Iron Saturation 11.61 L (12.00-45.00) 01/08/19 01/08/19 Range/Units 06:57 06:57 RBC 3.04 L (3.80-5.40) m/uL Hgb 10.8 L (11.4-16.0) gm/dL MCV 116.5 H (80.0-100.0) fL MCH 35.5 H (25.0-35.0) pg MCHC 30.5 L (31.0-37.0) g/dL RDW 18.4 H (11.5-15.5) % Plt Count 148 L (150-450) k/uL Macrocytosis Marked A Potassium 3.3 L (3.5-5.1) mmol/L BUN 60 H (7-17) mg/dL Creatinine 2.78 H (0.52-1.04) mg/dL Hemoglobin A1c (4.0-6.0) % Iron (50-170) ug/dL Iron Saturation (12.00-45.00) Assessment and Plan Assessment: #1 acute on chronic systolic congestive heart failure exacerbation: with 6 pound weight gain over night, bilateral lower extremity edema, worsening shortness of breath, and elevated BNP at 17,000. Echo shows an EF of 30-35%. Mild aortic stenosis, mild aortic regurgitation, severe mitral regurgitation, severe tricuspid regurgitation, moderate pulmonary hypertension. Continue monitoring daily weights. Nephrology is dosing the IV Lasix. IV Lasix increased yesterday to 80 mg IV every 12 hours. Nephrology did add metolazone 5 mg daily #2 chronic kidney disease stage IV BUN 66 and creatinine 2.72 which is slightly increased from her previous baseline #3 acute kidney injury : Prerenal secondary to cardiorenal syndrome. Patient seen by nephrology. Appreciate their recommendations. #4 diabetes mellitus type 2: A1c is 6.3. Blood sugar 89. Discontinued the Tradjenta and just continue sliding coverage during her hospitalization #5 underlying history of right lower extremity DVT maintained on Xarelto #6 chronic persistent atrial fibrillation anticoagulated with Xarelto #7 anemia of chronic kidney disease and iron deficiency anemia: Continue iron supplement. Iron total is 36. Hemoglobin is down to 10.8. Nephrology has ordered IV iron #8 right breast cancer status post lumpectomy on 10/24/2018 #19 hypokalemia we'll give potassium supplement. Repeat labs in a.m. Agree with checking magnesium level DVT prophylaxis Xarelto and GI prophylaxis Protonix Consult physical therapy I performed an examination of the patient and discussed their management with the physician Production Machine Tender. I have reviewed the Physician Production Machine Tender's notes and agree with the documented findings and plan of care
[2019-01-08] MEDS: METOPROLOL TARTRATE 25 MG TAB PO SCH (11:59)
[2019-01-08] MEDS: SODIUM FERRIC GLUCONAT-SUCROSE 125 MG in SODIUM CHLORIDE 0.9% 100 ML IVPB SCH (14:18)
[2019-01-08] MEDS: POTASSIUM CHLORIDE ER 20 MEQ TAB.ER PO SCH (15:58)
[2019-01-08 17:10] LABS: Glucose,Whole Blood 123 mg/dL (75-99)
[2019-01-08 19:39] LABS: Glucose,Whole Blood 148 mg/dL (75-99)
[2019-01-09 07:26] LABS: Glucose,Whole Blood 116 mg/dL (75-99)
[2019-01-09] MEDS: INSULIN ASPART (NovoLOG) 100 UNIT/ML VIAL SQ SCH ×4 (07:53→20:40)
[2019-01-09 08:16] LABS: Albumin 3.8 g/dL (3.5-5.0); Calcium 9.6 mg/dL (8.4-10.2); Total Bilirubin 1.5 mg/dL (0.2-1.3); Total Protein 6.8 g/dL (6.3-8.2)
[2019-01-09 08:28] LABS: Potassium 4.5 mmol/L (3.5-5.1)
[2019-01-09 08:42] LABS: Anisocytosis Slight; Basophils % (A) 0 %; Eosinophils # (A) 0.1 k/uL (0-0.7); Eosinophils % (A) 2 %; HCT 37.4 % (34.0-46.0); HGB 11.6 gm/dL (11.4-16.0); Hypochromasia Moderate; Lymphocytes # (A) 0.6 k/uL (1.0-4.8); Lymphocytes % (A) 10 %; MCH 35.8 pg (25.0-35.0); MCV 115.4 fL (80.0-100.0); Macrocytosis Marked; Mean Platelet Volume 8.2; Monocytes # (A) 0.3 k/uL (0-1.0); Monocytes % (A) 6 %; Neutrophils # (A) 4.6 k/uL (1.3-7.7); Neutrophils % (A) 79 %; Platelet Count 139 k/uL (150-450); RBC 3.24 m/uL (3.80-5.40); RDW 17.8 % (11.5-15.5); WBC 5.9 k/uL (3.8-10.6)
[2019-01-09] MEDS: MIDODRINE 5 MG TAB PO SCH ×3 (08:43→18:12)
[2019-01-09] MEDS: METOPROLOL TARTRATE 50 MG TAB PO SCH ×2 (08:43→20:51)
[2019-01-09] MEDS: traMADol 50 MG TAB PO SCH ×3 (08:44→23:10)
[2019-01-09] MEDS: PANTOPRAZOLE 40 MG TABLET PO SCH (08:44)
[2019-01-09] MEDS: PSYLLIUM HUSK 100% 6 GM PACKET PO SCH ×2 (09:35→20:34)
[2019-01-09] MEDS: POTASSIUM CHLORIDE ER 10 MEQ TAB.ER.PRT PO SCH (09:36)
[2019-01-09] MEDS: BRIMONIDINE TARTRATE 0.2% DROPS 5 ML BTL BOTH EYES SCH ×2 (09:42→20:50)
[2019-01-09] MEDS: DORZOLAMIDE HCL 2% DROPS 10 ML BTL BOTH EYES SCH ×2 (09:43→20:50)
[2019-01-09] MEDS: FUROSEMIDE 10 MG/ML 10 ML VIAL IV SCH ×2 (09:43→20:49)
[2019-01-09] MEDS: RIVAROXABAN 10 MG TAB PO SCH (09:44)
[2019-01-09] MEDS: VIT A,C & E-LUTEIN-MINERALS 1 EACH TAB PO SCH ×2 (09:44→20:50)
[2019-01-09] MEDS: ALLOPURINOL 100 MG TAB PO SCH (09:44)
[2019-01-09] MEDS: CHOLECALCIFEROL 1,000 UNIT TAB PO SCH (09:44)
[2019-01-09] MEDS: FERROUS SULFATE 325 MG TAB PO SCH (09:44)
[2019-01-09] MEDS: DOCUSATE 100 MG CAP PO SCH ×2 (09:44→20:50)
[2019-01-09 09:49] LABS: Poikilocytosis (M) Present
[2019-01-09] MEDS: ISOSORBIDE MONONITRATE ER 60 MG TAB.ER.24H PO SCH (09:55)
[2019-01-09] MEDS: METOLAZONE 5 MG TAB PO SCH (09:55)
[2019-01-09] MEDS: SODIUM FERRIC GLUCONAT-SUCROSE 125 MG in SODIUM CHLORIDE 0.9% 100 ML IVPB SCH (10:26)
[2019-01-09 11:27] LABS: Glucose,Whole Blood 174 mg/dL (75-99)
[2019-01-09] MEDS: METOPROLOL TARTRATE 25 MG TAB PO SCH (13:54)
--- NOTE | 2019-01-09 14:47 | P.PN ---
Subjective Progress Note Date: 01/09/19 Trina Carrillo is an 83-year-old female patient of Dr. Nathan, with known history of congestive heart failure, atrial fibrillation, coronary artery disease, diabetes mellitus, right lower extremity DVT, stage IV chronic kidney disease, who presented to [facility] emergency room with a chief complaint of worsening shortness of breath and bilateral lower extremity edema and 6 pound weight gain overnight she was evaluated in the emergency room she was given IV Lasix and was admitted to medical floor for further evaluation and treatment cardiology consultation was requested. On review of system patient is alert and oriented 3 in no apparent distress she denies any fever or chills no headache or dizziness no chest pain she has shortness of breath but no cough no nausea or vomiting no abdominal pain no diarrhea no burning was urination no frequency or urgency no hematuria. She has bilateral lower extremity edema on the right worse than on the left, she states she had previous lower extremity DVT on the right, she is maintained on Xarelto for anticoagulation in regard to atrial fibrillation and the right lower extremity DVT. On 01/06/2019 patient was seen and examined on the medical floor she is alert and oriented 3 in no apparent distress her shortness of breath and her lower extremity edema has improved since yesterday. Otherwise she denies any complaints there is no fever or chills no headache or dizziness no chest pain no cough no nausea or vomiting no abdominal pain no diarrhea and no urinary symptoms. 01/07/2019 patient's shortness of breath and lower extremity edema are improving. Patient had echo completed today. Results are pending. She's currently on IV Lasix 40 mg every 12 hours. Cardiology is following. Patient did have a drop of her hemoglobin from 11.2-10.9. Denies any blood in her stools or black stools. Iron studies have been ordered. Patient denies any chest pain, nausea or vomiting. She is reporting that she is not urinating as much as she usually does with the IV Lasix. We'll check postvoid residual. Weight is currently 84.2 kg which is up from the 82.4 kg. Nephrology will be consulted. Patient sees Dr. Escobar in the outpatient setting 01/08/2019 patient was seen by nephrology yesterday. They had increased the IV Lasix from 40 mg twice a day to 80 mg IV twice a day. Patient has had a decrease in her weight from 84.2 kg to 80.1 kg. She does report improvement in her shortness of breath and her lower extremity edema. Chest x-ray from this morning shows a right perihilar and lower lobe infiltrate correlate for pne umonia or underlying CHF. Patient has had no fever no elevated white count and no snacking cough. Likely symptoms are related to CHF. Patient denies any chest pain, nausea or vomiting, bowel movement changes or urinary symptoms. Hemoglobin is down to 10.8. Patient denies any blood in her stools. Iron is low at 36 and she is on ferrous sulfate 325 mg daily. Patient seen by cardiology and they are clearing her for discharge and recommend Demadex 20 mg twice a day. On 01/09/2019 patient's alert and oriented 3. Patient is currently resting in chair. Family at bedside. Patient remains on IV Lasix per nephrology at this time. Patient also receiving IV iron. At this time patient denies chest pain or shortness of breath. Patient denies nausea vomiting or diarrhea. Patient denies any urinary burning or frequency. Patient's weight down 80.1 kg to 78.063 kg. Objective - Vital Signs Vital signs: Vital Signs Temp 98.8 F 01/09/19 06:50 Pulse 72 01/09/19 08:25 Resp 16 01/09/19 08:25 BP 112/74 01/09/19 06:50 Pulse Ox 98 01/09/19 06:50 Intake & Output 01/08/19 01/09/19 01/09/19 18:59 06:59 18:59 Intake Total 200 150 Output Total 650 1200 600 Balance -450 -1050 -600 Weight 78.063 kg Intake: Oral 200 150 Output: Urine 650 1200 600 Other: Voiding Method Toilet Toilet Toilet Diaper Diaper Diaper Incontinent Incontinent Incontinent # Voids 3 # Bowel Movements 1 1 - Exam Head normocephalic Neck supple Lungs diminished at the bases but improvement in air Heart regular rate and rhythm S1-S2, no rub or gallop Abdomen is soft nontender nondistended positive bowel sounds no hepa tosplenomegaly Extremities +1 edema bilateral lower extremities right greater than left. Showing improvement. Neuro alert and orientated to 3 - Labs CBC & Chem 7: 01/09/19 07:24 01/09/19 07:24 Labs: Abnormal Lab Results - Last 24 Hours (Table) 01/08/19 01/08/19 01/09/19 Range/Units 17:08 19:38 06:54 RBC (3.80-5.40) m/uL MCV (80.0-100.0) fL MCH (25.0-35.0) pg RDW (11.5-15.5) % Plt Count (150-450) k/uL Lymphocytes # (1.0-4.8) k/uL Macrocytosis BUN (7-17) mg/dL Creatinine (0.52-1.04) mg/dL Glucose (74-99) mg/dL POC Glucose (mg/dL) 123 H 148 H 116 H (75-99) mg/dL Total Bilirubin (0.2-1.3) mg/dL 01/09/19 01/09/19 01/09/19 Range/Units 07:24 07:24 11:22 RBC 3.24 L (3.80-5.40) m/uL MCV 115.4 H (80.0-100.0) fL MCH 35.8 H (25.0-35.0) pg RDW 17.8 H (11.5-15.5) % Plt Count 139 L (150-450) k/uL Lymphocytes # 0.6 L (1.0-4.8) k/uL Macrocytosis Marked A BUN 66 H (7-17) mg/dL Creatinine 2.73 H (0.52-1.04) mg/dL Glucose 100 H (74-99) mg/dL POC Glucose (mg/dL) 174 H (75-99) mg/dL Total Bilirubin 1.5 H (0.2-1.3) mg/dL Assessment and Plan Assessment: #1 acute on chronic systolic congestive heart failure exacerbation: with 6 pound weight gain over night, bilateral lower extremity edema, worsening shortness of breath, and elevated BNP at 17,000. Echo shows an EF of 30-35%. Mild aortic stenosis, mild aortic regurgitation, severe mitral regurgitation, severe tricuspid regurgitation, moderate pulmonary hypertension. Continue monitoring daily weights. Nephrology is dosing the IV Lasix. IV Lasix increased yesterday to 80 mg IV every 12 hours. Nephrology did add metolazone 5 mg daily #2 chronic kidney disease stage IV BUN 66 and creatinine 2.72 which is slightly increased from her previous baseline #3 acute kidney injury : Prerenal secondary to cardiorenal syndrome. Patient seen by nephrology. Appreciate their recommendations. #4 diabetes mellitus type 2: A1c is 6.3. Blood sugar 89. Discontinued the Tradjenta and just continue sliding coverage during her hospitalization #5 underlying history of right lower extremity DVT maintained on Xarelto #6 chronic persistent atrial fibrillation anticoagulated with Xarelto #7 anemia of chronic kidney disease and iron deficiency anemia: Continue iron supplement. Iron total is 36. Hemoglobin is down to 10.8. Nephrology has ordered IV iron #8 right breast cancer status post lumpectomy on 10/24/2018 #19 hypokalemia we'll give potassium supplement. Repeat labs in a.m. Agree with checking magnesium level DVT prophylaxis Xarelto and GI prophylaxis Protonix Consult physical therapy I performed an examination of the patient and discussed their management with the Nurse Practitioner. I have reviewed the Nurse Practitioner's notes and agree with the documented findings and plan of care
[2019-01-09] MEDS: POTASSIUM CHLORIDE ER 20 MEQ TAB.ER PO SCH (16:15)
[2019-01-09 17:11] LABS: Glucose,Whole Blood 79 mg/dL (75-99)
--- NOTE | 2019-01-09 18:27 | PN ---
PROGRESS NOTE Patient is seen for followup for chronic kidney disease. She was admitted with volume overload. Patient has been diuresed. She is currently maintained on Lasix 80 mg IV q.12 hours. Volume status has improved. Her weight is down by about 2 kg. On examination today, patient is comfortable. Blood pressure this morning was 112/74, heart rate is 72 per minute. She is afebrile. EXAMINATION OF THE HEART: S1 and S2. EXAMINATION OF LUNGS: Bilateral breath sounds are heard. ABDOMEN: Soft, non-tender. Examination of lower extremities shows edema 1+ bilaterally. Chronic skin changes are noted. Labs show hemoglobin 11.6, sodium 141, potassium 4.5, BUN 66, serum creatinine 2.73. ASSESSMENT: 1. Chronic kidney disease, NKF stage IV, secondary to nephrosclerosis. Renal function stable. 2. Congestive heart failure, acute on top of chronic, mainly systolic; ejection fraction 30% to 35%. 3. Moderate pulmonary hypertension. PLAN: Continue with IV Lasix. Patient can likely be discharged tomorrow. MMODL / IJN: [id number] /
[2019-01-09 20:34] LABS: Glucose,Whole Blood 107 mg/dL (75-99)
[2019-01-10 07:00] LABS: Glucose,Whole Blood 96 mg/dL (75-99)
[2019-01-10 07:56] LABS: Albumin 3.5 g/dL (3.5-5.0); Calcium 9.4 mg/dL (8.4-10.2); Total Protein 6.2 g/dL (6.3-8.2)
[2019-01-10 08:22] LABS: Anisocytosis Slight; Basophils % (A) 0 %; Eosinophils # (A) 0.1 k/uL (0-0.7); Eosinophils % (A) 2 %; HCT 35.7 % (34.0-46.0); HGB 10.8 gm/dL (11.4-16.0); Hypochromasia Moderate; Lymphocytes # (A) 1.1 k/uL (1.0-4.8); Lymphocytes % (A) 18 %; MCH 34.6 pg (25.0-35.0); MCHC 30.2 g/dL (31.0-37.0); MCV 114.4 fL (80.0-100.0); Macrocytosis Marked; Mean Platelet Volume 8.9; Monocytes # (A) 0.4 k/uL (0-1.0); Monocytes % (A) 7 %; Neutrophils # (A) 4.3 k/uL (1.3-7.7); Neutrophils % (A) 70 %; Platelet Count 146 k/uL (150-450); RBC 3.12 m/uL (3.80-5.40); RDW 17.7 % (11.5-15.5); WBC 6.2 k/uL (3.8-10.6)
[2019-01-10] MEDS: MIDODRINE 5 MG TAB PO SCH ×3 (08:35→17:04)
[2019-01-10] MEDS: RIVAROXABAN 10 MG TAB PO SCH (08:35)
[2019-01-10] MEDS: DOCUSATE 100 MG CAP PO SCH ×2 (08:35→20:36)
[2019-01-10] MEDS: CHOLECALCIFEROL 1,000 UNIT TAB PO SCH (08:35)
[2019-01-10] MEDS: ALLOPURINOL 100 MG TAB PO SCH (08:36)
[2019-01-10] MEDS: POTASSIUM CHLORIDE ER 10 MEQ TAB.ER.PRT PO SCH (08:36)
[2019-01-10] MEDS: traMADol 50 MG TAB PO SCH ×2 (08:36→15:24)
[2019-01-10] MEDS: PANTOPRAZOLE 40 MG TABLET PO SCH (08:37)
[2019-01-10] MEDS: VIT A,C & E-LUTEIN-MINERALS 1 EACH TAB PO SCH ×2 (08:37→20:36)
[2019-01-10] MEDS: METOLAZONE 5 MG TAB PO SCH (08:37)
[2019-01-10] MEDS: ISOSORBIDE MONONITRATE ER 60 MG TAB.ER.24H PO SCH (08:37)
[2019-01-10] MEDS: CALCITRIOL 0.25 MCG CAP PO SCH (08:37)
[2019-01-10] MEDS: METOPROLOL TARTRATE 50 MG TAB PO SCH ×2 (08:37→20:36)
[2019-01-10] MEDS: PSYLLIUM HUSK 100% 6 GM PACKET PO SCH ×2 (08:38→20:26)
[2019-01-10] MEDS: FERROUS SULFATE 325 MG TAB PO SCH (08:42)
[2019-01-10] MEDS: SODIUM FERRIC GLUCONAT-SUCROSE 125 MG in SODIUM CHLORIDE 0.9% 100 ML IVPB SCH (08:42)
[2019-01-10] MEDS: FUROSEMIDE 10 MG/ML 10 ML VIAL IV SCH (08:43)
[2019-01-10] MEDS: BRIMONIDINE TARTRATE 0.2% DROPS 5 ML BTL BOTH EYES SCH ×2 (08:43→20:36)
[2019-01-10] MEDS: DORZOLAMIDE HCL 2% DROPS 10 ML BTL BOTH EYES SCH ×2 (08:43→20:36)
[2019-01-10] MEDS: INSULIN ASPART (NovoLOG) 100 UNIT/ML VIAL SQ SCH ×4 (08:51→20:20)
[2019-01-10] MEDS ORDERED: POTASSIUM CHLORIDE ER 20 MEQ TAB.ER PO STA (10:41)
[2019-01-10 11:43] LABS: Glucose,Whole Blood 160 mg/dL (75-99)
--- NOTE | 2019-01-10 11:45 | P.PN ---
Subjective Patient is seen in follow-up for acute kidney injury on chronic kidney disease. Patient has chronic knee disease stage IV secondary to cardiorenal syndrome with baseline creatinine in the range of 2.4-2.7. Patient presented to the hospital with worsening edema. She is currently maintained on Lasix 80 mg IV twice daily. Weight is trending down. Edema is improving. Renal function is gradually worsening. Creatinine 2.90 today. Vital signs are stable. General: The patient appeared well nourished and normally developed. HEENT: Head exam is unremarkable. Neck is without jugular venous distension. LUNGS: Lungs are clear to auscultation and percussion. Breath sounds decreased. HEART: Rate and Rhythm are regular. First and second heart sounds normal. No murmurs, rubs or gallops. ABDOMEN: Abdominal exam reveals normal bowel sounds. Non-tender and non- distended. No evidence of peritonitis. EXTREMITITES: 1+ edema. Objective - Vital Signs Vital signs: Vital Signs Temp 97.7 F 01/10/19 06:55 Pulse 84 01/10/19 06:55 Resp 16 01/10/19 06:55 BP 115/71 01/10/19 06:55 Pulse Ox 98 01/10/19 06:55 Intake & Output 01/09/19 01/10/19 01/10/19 18:59 06:59 18:59 Output Total 600 Balance -600 Weight 78.063 kg Output: Urine 600 Other: Voiding Method Toilet Toilet Diaper Diaper Incontinent Incontinent # Voids 1 4 # Bowel Movements 1 - Labs CBC & Chem 7: 01/10/19 06:41 01/10/19 06:41 Labs: Abnormal Lab Results - Last 24 Hours (Table) 01/09/19 01/10/19 01/10/19 Range/Units 20:33 06:41 06:41 RBC 3.12 L (3.80-5.40) m/uL Hgb 10.8 L (11.4-16.0) gm/dL MCV 114.4 H (80.0-100.0) fL MCHC 30.2 L (31.0-37.0) g/dL RDW 17.7 H (11.5-15.5) % Plt Count 146 L (150-450) k/uL Macrocytosis Marked A Potassium 3.0 L (3.5-5.1) mmol/L Chloride 97 L (98-107) mmol/L Carbon Dioxide 33 H (22-30) mmol/L BUN 65 H (7-17) mg/dL Creatinine 2.98 H (0.52-1.04) mg/dL POC Glucose (mg/dL) 107 H (75-99) mg/dL Total Protein 6.2 L (6.3-8.2) g/dL Assessment and Plan Plan: assessment: 1. Acute kidney injury mostly prerenal secondary to cardiorenal syndrome. Creatinine 2.98 today. 2. Chronic kidney disease stage IV secondary to cardiorenal syndrome with baseline creatinine in the range of 2.4-2.7. 3. Volume overload. Improving with diuresis. 4. Systolic CHF with ejection fraction of 30-35% with severe mitral and tricuspid regurgitation. 5. Moderate pulmonary hypertension. 6. Metabolic acidosis secondary to chronic kidney disease maintained on oral sodium bicarbonate. Resolved. 7. History of DVT maintained on anticoagulation. 8. Diabetes mellitus. 9. Hypokalemia secondary to diuresis. Magnesium normal. 10. Anemia of chronic kidney disease. Iron deficiency noted. Plan: Discontinue IV Lasix. Start Demadex 20 mg orally twice daily. Maintain metolazone 5 mg once daily. Discontinued sodium bicarbonate. Low-salt diet. Repeat electrolytes in the morning. Replace potassium. Total 90 mEq today. IV iron 3 doses. Third dose today.
--- NOTE | 2019-01-10 14:47 | P.PN ---
Subjective Progress Note Date: 01/10/19 Trina Carrillo is an 83-year-old female patient of Dr. Nathan, with known history of congestive heart failure, atrial fibrillation, coronary artery disease, diabetes mellitus, right lower extremity DVT, stage IV chronic kidney disease, who presented to [facility] emergency room with a chief complaint of worsening shortness of breath and bilateral lower extremity edema and 6 pound weight gain overnight she was evaluated in the emergency room she was given IV Lasix and was admitted to medical floor for further evaluation and treatment cardiology consultation was requested. On review of system patient is alert and oriented 3 in no apparent distress she denies any fever or chills no headache or dizziness no chest pain she has shortness of breath but no cough no nausea or vomiting no abdominal pain no diarrhea no burning was urination no frequency or urgency no hematuria. She has bilateral lower extremity edema on the right worse than on the left, she states she had previous lower extremity DVT on the right, she is maintained on Xarelto for anticoagulation in regard to atrial fibrillation and the right lower extremity DVT. On 01/06/2019 patient was seen and examined on the medical floor she is alert and oriented 3 in no apparent distress her shortness of breath and her lower extremity edema has improved since yesterday. Otherwise she denies any complaints there is no fever or chills no headache or dizziness no chest pain no cough no nausea or vomiting no abdominal pain no diarrhea and no urinary symptoms. 01/07/2019 patient's shortness of breath and lower extremity edema are improving. Patient had echo completed today. Results are pending. She's currently on IV Lasix 40 mg every 12 hours. Cardiology is following. Patient did have a drop of her hemoglobin from 11.2-10.9. Denies any blood in her stools or black stools. Iron studies have been ordered. Patient denies any chest pain, nausea or vomiting. She is reporting that she is not urinating as much as she usually does with the IV Lasix. We'll check postvoid residual. Weight is currently 84.2 kg which is up from the 82.4 kg. Nephrology will be consulted. Patient sees Dr. Escobar in the outpatient setting 01/08/2019 patient was seen by nephrology yesterday. They had increased the IV Lasix from 40 mg twice a day to 80 mg IV twice a day. Patient has had a decrease in her weight from 84.2 kg to 80.1 kg. She does report improvement in her shortness of breath and her lower extremity edema. Chest x-ray from this morning shows a right perihilar and lower lobe infiltrate correlate for pne umonia or underlying CHF. Patient has had no fever no elevated white count and no snacking cough. Likely symptoms are related to CHF. Patient denies any chest pain, nausea or vomiting, bowel movement changes or urinary symptoms. Hemoglobin is down to 10.8. Patient denies any blood in her stools. Iron is low at 36 and she is on ferrous sulfate 325 mg daily. Patient seen by cardiology and they are clearing her for discharge and recommend Demadex 20 mg twice a day. On 01/09/2019 patient's alert and oriented 3. Patient is currently resting in chair. Family at bedside. Patient remains on IV Lasix per nephrology at this time. Patient also receiving IV iron. At this time patient denies chest pain or shortness of breath. Patient denies nausea vomiting or diarrhea. Patient denies any urinary burning or frequency. Patient's weight down 80.1 kg to 78.063 kg. On 01/10/2019 patient's alert and oriented 3. Patient has been transitioned to oral Demadex 20 mg twice a day. We'll continue to monitor for 24 hours likely will be DC'd home tomorrow. This time patient denies any chest pain shortness breath. Denies nausea vomiting or diarrhea. Patient denies any urinary burning or frequency Objective - Vital Signs Vital signs: Vital Signs Temp 98.0 F 01/10/19 13:35 Pulse 68 01/10/19 13:35 Resp 16 01/10/19 13:35 BP 109/71 01/10/19 13:35 Pulse Ox 99 01/10/19 13:35 Intake & Output 01/09/19 01/10/19 01/10/19 18:59 06:59 18:59 Output Total 600 600 Balance -600 -600 Weight 78.063 kg Output: Urine 600 600 Other: Voiding Method Toilet Toilet Diaper Diaper Incontinent Incontinent # Voids 1 4 # Bowel Movements 1 - Exam Head normocephalic Neck supple Lungs diminished at the bases but improvement in air Heart regular rate and rhythm S1-S2, no rub or gallop Abdomen is soft nontender nondistended positive bowel sounds no hepatosplenomegaly Extremities +1 edema bilateral lower extremities right greater than left. Showing improvement. Neuro alert and orientated to 3 - Labs CBC & Chem 7: 01/10/19 06:41 01/10/19 06:41 Labs: Abnormal Lab Results - Last 24 Hours (Table) 01/09/19 01/10/19 01/10/19 Range/Units 20:33 06:41 06:41 RBC 3.12 L (3.80-5.40) m/uL Hgb 10.8 L (11.4-16.0) gm/dL MCV 114.4 H (80.0-100.0) fL MCHC 30.2 L (31.0-37.0) g/dL RDW 17.7 H (11.5-15.5) % Plt Count 146 L (150-450) k/uL Macrocytosis Marked A Potassium 3.0 L (3.5-5.1) mmol/L Chloride 97 L (98-107) mmol/L Carbon Dioxide 33 H (22-30) mmol/L BUN 65 H (7-17) mg/dL Creatinine 2.98 H (0.52-1.04) mg/dL POC Glucose (mg/dL) 107 H (75-99) mg/dL Total Protein 6.2 L (6.3-8.2) g/dL 01/10/19 Range/Units 11:32 RBC (3.80-5.40) m/uL Hgb (11.4-16.0) gm/dL MCV (80.0-100.0) fL MCHC (31.0-37.0) g/dL RDW (11.5-15.5) % Plt Count (150-450) k/uL Macrocytosis Potassium (3.5-5.1) mmol/L Chloride (98-107) mmol/L Carbon Dioxide (22-30) mmol/L BUN (7-17) mg/dL Creatinine (0.52-1.04) mg/dL POC Glucose (mg/dL) 160 H (75-99) mg/dL Total Protein (6.3-8.2) g/dL Assessment and Plan Assessment: #1 acute on chronic systolic congestive heart failure exacerbation: with 6 pound weight gain over night, bilateral lower extremity edema, worsening shortness of breath, and elevated BNP at 17,000. Echo shows an EF of 30-35%. Mild aortic stenosis, mild aortic regurgitation, severe mitral regurgitation, severe tricusp id regurgitation, moderate pulmonary hypertension. Continue monitoring daily weights. Nephrology is dosing the IV Lasix. IV Lasix increased yesterday to 80 mg IV every 12 hours. Nephrology did add metolazone 5 mg daily. Patient has been switched to Demadex twice daily #2 chronic kidney disease stage IV BUN 66 and creatinine 2.72 which is slightly increased from her previous baseline #3 acute kidney injury : Prerenal secondary to cardiorenal syndrome. Patient seen by nephrology. Appreciate their recommendations. #4 diabetes mellitus type 2: A1c is 6.3. Blood sugar 89. Discontinued the Tradjenta and just continue sliding coverage during her hospitalization #5 underlying history of right lower extremity DVT maintained on Xarelto #6 chronic persistent atrial fibrillation anticoagulated with Xarelto #7 anemia of chronic kidney disease and iron deficiency anemia: Continue iron supplement. Iron total is 36. Hemoglobin is down to 10.8. Nephrology has ordered IV iron #8 right breast cancer status post lumpectomy on 10/24/2018 #19 hypokalemia we'll give potassium supplement. Repeat labs in a.m. DVT prophylaxis Xarelto and GI prophylaxis Protonix Consult physical therapy I performed an examination of the patient and discussed their management with the Nurse Practitioner. I have reviewed the Nurse Practitioner's notes and agree with the documented findings and plan of care
[2019-01-10] MEDS: METOPROLOL TARTRATE 25 MG TAB PO SCH (15:24)
[2019-01-10] MEDS: POTASSIUM CHLORIDE ER 20 MEQ TAB.ER PO SCH (15:24)
[2019-01-10] MEDS: TORSEMIDE 20 MG TAB PO SCH (16:38)
[2019-01-10 16:58] LABS: Glucose,Whole Blood 150 mg/dL (75-99)
[2019-01-10 20:16] LABS: Glucose,Whole Blood 124 mg/dL (75-99)
[2019-01-11] MEDS: traMADol 50 MG TAB PO SCH ×2 (00:25→07:37)
[2019-01-11 06:39] LABS: Glucose,Whole Blood 110 mg/dL (75-99)
[2019-01-11] MEDS: INSULIN ASPART (NovoLOG) 100 UNIT/ML VIAL SQ SCH ×2 (07:12→12:06)
[2019-01-11 07:16] LABS: Anisocytosis Slight; Basophils % (A) 0 %; Eosinophils # (A) 0.1 k/uL (0-0.7); Eosinophils % (A) 2 %; HCT 36.5 % (34.0-46.0); HGB 11.3 gm/dL (11.4-16.0); Hypochromasia Slight; Lymphocytes # (A) 1.4 k/uL (1.0-4.8); Lymphocytes % (A) 17 %; MCH 34.9 pg (25.0-35.0); MCHC 30.9 g/dL (31.0-37.0); MCV 113.1 fL (80.0-100.0); Macrocytosis Marked; Mean Platelet Volume 8.6; Monocytes # (A) 0.4 k/uL (0-1.0); Monocytes % (A) 5 %; Neutrophils # (A) 5.5 k/uL (1.3-7.7); Neutrophils % (A) 71 %; Platelet Count 138 k/uL (150-450); RBC 3.23 m/uL (3.80-5.40); RDW 18.3 % (11.5-15.5); WBC 7.8 k/uL (3.8-10.6)
[2019-01-11 07:18] LABS: Albumin 3.6 g/dL (3.5-5.0); Calcium 9.3 mg/dL (8.4-10.2); Potassium 3.2 mmol/L (3.5-5.1); Total Protein 6.4 g/dL (6.3-8.2)
[2019-01-11] MEDS: PSYLLIUM HUSK 100% 6 GM PACKET PO SCH (07:33)
[2019-01-11] MEDS: MIDODRINE 5 MG TAB PO SCH (07:36)
[2019-01-11] MEDS: VIT A,C & E-LUTEIN-MINERALS 1 EACH TAB PO SCH (07:36)
[2019-01-11] MEDS: METOLAZONE 5 MG TAB PO SCH (07:36)
[2019-01-11] MEDS: POTASSIUM CHLORIDE ER 10 MEQ TAB.ER.PRT PO SCH (07:36)
[2019-01-11] MEDS: TORSEMIDE 20 MG TAB PO SCH (07:36)
[2019-01-11] MEDS: RIVAROXABAN 10 MG TAB PO SCH (07:37)
[2019-01-11] MEDS: CHOLECALCIFEROL 1,000 UNIT TAB PO SCH (07:37)
[2019-01-11] MEDS: PANTOPRAZOLE 40 MG TABLET PO SCH (07:37)
[2019-01-11] MEDS: ALLOPURINOL 100 MG TAB PO SCH (07:37)
[2019-01-11] MEDS: FERROUS SULFATE 325 MG TAB PO SCH (07:38)
[2019-01-11] MEDS: ISOSORBIDE MONONITRATE ER 60 MG TAB.ER.24H PO SCH (07:38)
[2019-01-11] MEDS: DORZOLAMIDE HCL 2% DROPS 10 ML BTL BOTH EYES SCH (07:38)
[2019-01-11] MEDS: METOPROLOL TARTRATE 50 MG TAB PO SCH (07:38)
[2019-01-11] MEDS: DOCUSATE 100 MG CAP PO SCH (07:38)
[2019-01-11] MEDS: BRIMONIDINE TARTRATE 0.2% DROPS 5 ML BTL BOTH EYES SCH (07:39)
[2019-01-11 07:44] VITALS: BP 105/69; PULSE 93; RESP 16; TEMP 98.5
[2019-01-11] MEDS: SODIUM FERRIC GLUCONAT-SUCROSE 125 MG in SODIUM CHLORIDE 0.9% 100 ML IVPB SCH (08:33)
[2019-01-11] MEDS ORDERED: POTASSIUM CHLORIDE ER 20 MEQ TAB.ER PO STA (08:35)
--- NOTE | 2019-01-11 09:44 | P.PN ---
Subjective Patient is seen in follow-up for acute kidney injury on chronic kidney disease. Patient has chronic knee disease stage IV secondary to cardiorenal syndrome with baseline creatinine in the range of 2.4-2.7. Patient presented to the hospital with worsening edema. She is now on oral diuretics. Edema is improving. Renal function is stable. Creatinine 2.99 today. Vital signs are stable. General: The patient appeared well nourished and normally developed. HEENT: Head exam is unremarkable. Neck is without jugular venous distension. LUNGS: Lungs are clear to auscultation and percussion. Breath sounds decreased. HEART: Rate and Rhythm are regular. First and second heart sounds normal. No murmurs, rubs or gallops. ABDOMEN: Abdominal exam reveals normal bowel sounds. Non-tender and non- distended. No evidence of peritonitis. EXTREMITITES: 1+ edema. Objective - Vital Signs Vital signs: Vital Signs Temp 98.5 F 01/11/19 07:00 Pulse 93 01/11/19 07:00 Resp 16 01/11/19 07:00 BP 105/69 01/11/19 07:00 Pulse Ox 95 01/11/19 07:00 Intake & Output 01/10/19 01/11/19 01/11/19 18:59 06:59 18:59 Intake Total 280 Output Total 600 1500 Balance -320 -1500 Intake: IV 100 Sodium Ferric Gluconat- 100 Sucrose 125 mg In Sodium Chloride 0.9% 100 ml @ 100 mls/hr IVPB DAILY [facility] Rx#:[id number] Oral 180 Output: Urine 600 1500 Other: Voiding Method Toilet Diaper Incontinent # Voids 3 # Bowel Movements 1 - Labs CBC & Chem 7: 01/11/19 06:43 01/11/19 06:43 Labs: Abnormal Lab Results - Last 24 Hours (Table) 01/10/19 01/10/19 01/10/19 Range/Units 11:32 16:47 20:14 RBC (3.80-5.40) m/uL Hgb (11.4-16.0) gm/dL MCV (80.0-100.0) fL MCHC (31.0-37.0) g/dL RDW (11.5-15.5) % Plt Count (150-450) k/uL Macrocytosis Potassium (3.5-5.1) mmol/L Carbon Dioxide (22-30) mmol/L BUN (7-17) mg/dL Creatinine (0.52-1.04) mg/dL Glucose (74-99) mg/dL POC Glucose (mg/dL) 160 H 150 H 124 H (75-99) mg/dL 01/11/19 01/11/19 01/11/19 Range/Units 06:38 06:43 06:43 RBC 3.23 L (3.80-5.40) m/uL Hgb 11.3 L (11.4-16.0) gm/dL MCV 113.1 H (80.0-100.0) fL MCHC 30.9 L (31.0-37.0) g/dL RDW 18.3 H (11.5-15.5) % Plt Count 138 L (150-450) k/uL Macrocytosis Marked A Potassium 3.2 L (3.5-5.1) mmol/L Carbon Dioxide 31 H (22-30) mmol/L BUN 71 H (7-17) mg/dL Creatinine 2.99 H (0.52-1.04) mg/dL Glucose 102 H (74-99) mg/dL POC Glucose (mg/dL) 110 H (75-99) mg/dL Assessment and Plan Plan: assessment: 1. Acute kidney injury mostly prerenal secondary to cardiorenal syndrome. Creatinine 2.99 today. 2. Chronic kidney disease stage IV secondary to cardiorenal syndrome with baseline creatinine in the range of 2.4-2.7. 3. Volume overload. Improving with diuresis. 4. Systolic CHF with ejection fraction of 30-35% with severe mitral and tricuspid regurgitation. 5. Moderate pulmonary hypertension. 6. Metabolic acidosis secondary to chronic kidney disease maintained on oral sodium bicarbonate. Resolved. 7. History of DVT maintained on anticoagulation. 8. Diabetes mellitus. 9. Hypokalemia secondary to diuresis. Magnesium normal. 10. Anemia of chronic kidney disease. Iron deficiency noted. Status post 3 doses of IV iron. Plan: Maintain Demadex 20 mg orally twice daily. Maintain metolazone 5 mg once daily - to take every other day upon discharge. Discontinued sodium bicarbonate. Low-salt diet. Repeat electrolytes in the morning. Replace potassium. Total 90 mEq today. Anticipate discharge soon. Patient will need to get a BMP and a magnesium level checked within 2-3 days postdischarge and follow up outpatient in the next 1-2 weeks.
[2019-01-11 11:37] LABS: Glucose,Whole Blood 129 mg/dL (75-99)
--- NOTE | 2019-01-11 12:56 | P.DS ---
Providers Date of admission: 01/06/19 17:14 Expected date of discharge: 01/11/19 Attending physician: Elyse Owen Consults: 01/05/19 13:38 Consult Physician Routine Consulting Provider: Sondra Enamorado Consult Reason/Comments: CHF Do you want consulting provider notified?: Yes 01/07/19 11:35 Consult Physician Routine Consulting Provider: Hanna Escobar Consult Reason/Comments: NIKI Do you want consulting provider notified?: Yes Primary care physician: Jak Nathan Hospital Course: Discharge diagnosis #1 acute on chronic systolic congestive heart failure exacerbation: with 6 pound weight gain over night, bilateral lower extremity edema, worsening shortness of breath, and elevated BNP at 17,000. Echo shows an EF of 30-35%. Mild aortic stenosis, mild aortic regurgitation, severe mitral regurgitation, severe tricuspid regurgitation, moderate pulmonary hypertension. Continue monitoring daily weights. Nephrology is dosing the IV Lasix. IV Lasix increased yesterday to 80 mg IV every 12 hours. Nephrology did add metolazone 5 mg daily. Patient has been switched to Demadex twice daily #2 chronic kidney disease stage IV BUN 66 and creatinine 2.72 which is slightly increased from her previous baseline. Patient's creatinine 2.9. Patient has been cleared for discharge from nephrology services. Repeat BMP and magnesium level ordered for 3 days #3 acute kidney injury : Prerenal secondary to cardiorenal syndrome. Patient seen by nephrology. Appreciate their recommendations. #4 diabetes mellitus type 2: A1c is 6.3. Blood sugar 89. Discontinued the Tradjenta and just continue sliding coverage during her hospitalization #5 underlying history of right lower extremity DVT maintained on Xarelto #6 chronic persistent atrial fibrillation anticoagulated with Xarelto #7 anemia of chronic kidney disease and iron deficiency anemia: Continue iron supplement. Iron total is 36. Hemoglobin is down to 10.8. Nephrology has ordered IV iron. Hemoglobin improving to 11.3 #8 right breast cancer status post lumpectomy on 10/24/2018 #19 hypokalemia we'll give potassium supplement. Repeat labs in a.m. potassium supplement per nephrology Hospital course Trina Carrillo is an 83-year-old female patient of Dr. Nathan, with known history of congestive heart failure, atrial fibrillation, coronary artery disease, diabetes mellitus, right lower extremity DVT, stage IV chronic kidney disease, who presented to [facility] emergency room with a chief complaint of worsening shortness of breath and bilateral lower extremity edema and 6 pound weight gain overnight she was evaluated in the emergency room she was given IV Lasix and was admitted to medical floor for further evaluation and treatment cardiology consultation was requested. On review of system patient is alert and oriented 3 in no apparent distress she denies any fever or chills no headache or dizziness no chest pain she has shortness of breath but no cough no nausea or vomiting no abdominal pain no diarrhea no burning was urination no frequency or urgency no hematuria. She has bilateral lower extremity edema on the right worse than on the left, she states she had previous lower extremity DVT on the right, she is maintained on Xarelto for anticoagulation in regard to atrial fibrillation and the right lower extremity DVT. On 01/06/2019 patient was seen and examined on the medical floor she is alert and oriented 3 in no apparent distress her shortness of breath and her lower extremity edema has improved since yesterday. Otherwise she denies any complaints there is no fever or chills no headache or dizziness no chest pain no cough no nausea or vomiting no abdominal pain no diarrhea and no urinary sy mptoms. 01/07/2019 patient's shortness of breath and lower extremity edema are improving. Patient had echo completed today. Results are pending. She's currently on IV Lasix 40 mg every 12 hours. Cardiology is following. Patient did have a drop of her hemoglobin from 11.2-10.9. Denies any blood in her stools or black stools. Iron studies have been ordered. Patient denies any chest pain, nausea or vomiting. She is reporting that she is not urinating as much as she usually does with the IV Lasix. We'll check postvoid residual. Weight is currently 84.2 kg which is up from the 82.4 kg. Nephrology will be consulted. Patient sees Dr. Escobar in the outpatient setting 01/08/2019 patient was seen by nephrology yesterday. They had increased the IV Lasix from 40 mg twice a day to 80 mg IV twice a day. Patient has had a decrease in her weight from 84.2 kg to 80.1 kg. She does report improvement in her shortness of breath and her lower extremity edema. Chest x-ray from this morning shows a right perihilar and lower lobe infiltrate correlate for pneumonia or underlying CHF. Patient has had no fever no elevated white count and no snacking cough. Likely symptoms are related to CHF. Patient denies any chest pain, nausea or vomiting, bowel movement changes or urinary symptoms. Hemoglobin is down to 10.8. Patient denies any blood in her stools. Iron is low at 36 and she is on ferrous sulfate 325 mg daily. Patient seen by cardiology and they are clearing her for discharge and recommend Demadex 20 mg twice a day. On 01/09/2019 patient's alert and oriented 3. Patient is currently resting in chair. Family at bedside. Patient remains on IV Lasix per nephrology at this time. Patient also receiving IV iron. At this time patient denies chest pain or shortness of breath. Patient denies nausea vomiting or diarrhea. Patient denies any urinary burning or frequency. Patient's weight down 80.1 kg to 78.063 kg. On 01/10/2019 patient's alert and oriented 3. Patient has been transitioned to oral Demadex 20 mg twice a day. We'll continue to monitor for 24 hours likely will be DC'd home tomorrow. This time patient denies any chest pain shortness breath. Denies nausea vomiting or diarrhea. Patient denies any urinary burning or frequency On 01/11/2018 patient is alert and oriented 3. Patient has been cleared for discharge from nephrology standpoint. Patient will be DC'd home on Demadex 20 mg twice a day and Zaroxolyn 5 mg daily. Patient to follow-up with nephrology services for further management. Repeat BMP and magnesium level ordered for 3 days. At this time patient denies any chest pain or shortness of breath. Patient denies nausea vomiting or diarrhea. Patient denies any urinary burning or frequency. I performed an examination of the patient and discussed their management with the Nurse Practitioner. I have reviewed the Nurse Practitioner's notes and agree with the documented findings and plan of care Patient Condition at Discharge: Stable Plan - Discharge Summary Discharge Rx Participant: No New Discharge Prescriptions: New Metolazone [Zaroxolyn] 5 mg PO DAILY 30 Days #30 tab Continue Linagliptin [Tradjenta] 5 mg PO DAILY@1500 Allopurinol [Zyloprim] 200 mg PO DAILY Omeprazole [PriLOSEC] 20 mg PO DAILY Docusate Sodium [Stool Softener] 100 mg PO BID Garlic 1 tab PO BID Calcitriol 0.25 mcg PO SUTUTHSA traMADol HCL [Ultram] 100 mg PO BID@0800,2300 Brinzolamide/Brimonidine Tart [Simbrinza 1%-0.2% Eye Drops] 1 drop BOTH EYES BID Vit C/E/Zn/Coppr/Lutein/Zeaxan [Preservision Areds 2 Softgel] 1 tab PO BID Ferrous Sulfate [Feosol] 325 mg PO DAILY Ammonium Lactate Cream [Lac-Hydrin 12% Cream] 1 applic TOPICAL BID PRN PRN Reason: FEET Cholecalciferol (Vitamin D3) [Vitamin D3] 2,000 unit PO DAILY Wheat Dextrin [Benefiber] 1 packet PO BID Isosorbide Mononitrate ER [Imdur] 60 mg PO DAILY Rivaroxaban [Xarelto] 10 mg PO DAILY Midodrine [ProAmatine] 10 mg PO TID Potassium Chloride ER [K-Dur 10] 30 meq PO QAM Metoprolol Tartrate [Lopressor] 50 mg PO AC-BRKFST Metoprolol Tartrate [Lopressor] 25 mg PO PC-LUNCH Torsemide [Demadex] 20 mg PO BID #60 tablet Ondansetron [Zofran] 4 mg PO Q8HR PRN PRN Reason: Nausea Metoprolol Tartrate [Lopressor] 50 mg PO HS Potassium Chloride ER [K-Dur 10] 20 meq PO DAILY@1500 traMADol HCL [Ultram] 50 mg PO DAILY@1600 Discontinued Sodium Bicarbonate Tab 650 mg PO BID #60 tab Discharge Medication List Allopurinol [Zyloprim] 200 mg PO DAILY 01/22/14 [History] Linagliptin [Tradjenta] 5 mg PO DAILY@1500 01/22/14 [History] Omeprazole [PriLOSEC] 20 mg PO DAILY 01/22/14 [History] Docusate Sodium [Stool Softener] 100 mg PO BID 02/22/14 [History] Garlic 1 tab PO BID 02/22/14 [History] Calcitriol 0.25 mcg PO SUTUTHSA 08/22/14 [History] traMADol HCL [Ultram] 100 mg PO BID@0800,2300 01/13/16 [History] Brinzolamide/Brimonidine Tart [Simbrinza 1%-0.2% Eye Drops] 1 drop BOTH EYES BID 05/11/17 [History] Vit C/E/Zn/Coppr/Lutein/Zeaxan [Preservision Areds 2 Softgel] 1 tab PO BID 12/03/17 [History] Ferrous Sulfate [Feosol] 325 mg PO DAILY 01/11/18 [History] Ammonium Lactate Cream [Lac-Hydrin 12% Cream] 1 applic TOPICAL BID PRN 02/10/18 [History] Cholecalciferol (Vitamin D3) [Vitamin D3] 2,000 unit PO DAILY 02/10/18 [History] Isosorbide Mononitrate ER [Imdur] 60 mg PO DAILY 02/10/18 [History] Wheat Dextrin [Benefiber] 1 packet PO BID 02/10/18 [History] Midodrine [ProAmatine] 10 mg PO TID 04/10/18 [History] Rivaroxaban [Xarelto] 10 mg PO DAILY 04/10/18 [History] Potassium Chloride ER [K-Dur 10] 30 meq PO QAM 06/02/18 [History] Metoprolol Tartrate [Lopressor] 50 mg PO AC-BRKFST 06/14/18 [History] Metoprolol Tartrate [Lopressor] 25 mg PO PC-LUNCH 06/15/18 [History] Torsemide [Demadex] 20 mg PO BID #60 tablet 06/22/18 [Rx] Metoprolol Tartrate [Lopressor] 50 mg PO HS 09/18/18 [History] Ondansetron [Zofran] 4 mg PO Q8HR PRN 09/18/18 [History] Potassium Chloride ER [K-Dur 10] 20 meq PO DAILY@1500 09/18/18 [History] traMADol HCL [Ultram] 50 mg PO DAILY@1600 01/04/19 [History] Metolazone [Zaroxolyn] 5 mg PO DAILY 30 Days #30 tab 01/11/19 [Rx] Follow up Appointment(s)/Referral(s): [facility], [NON-STAFF] - As Needed Tasha May MD [STAFF PHYSICIAN] - 01/31/19 9:15 am Jak Nathan MD [Primary Care Provider] - 01/21/19 2:45 pm Antonio Ang DO [STAFF PHYSICIAN] - 1 Week (1-2 weeks) Ambulatory/Diagnostic Orders: Basic Metabolic Panel [LAB.AMB] Time Frame: 3 Days, Location: None Selected Magnesium [LAB.AMB] Time Frame: 3 Days, Location: None Selected Activity/Diet/Wound Care/Special Instructions: Activity as tolerated Diet renal Discharge Disposition: HOME WITH HOME HEALTH SERVICES
== END 2019-01-11 14:25 | disposition home health service (06) | DRG 291 ==
LOC: EC 12:48 → 4SSUR 17:43 → OBSVTOIN 01-06 17:14
PROVIDERS: ADMIT Internal Medicine; ATTEND Internal Medicine
DX: I13.0 Hypertensive heart and chronic kidney disease with heart failure and stage 1 through stage 4 chronic kidney disease, or unspecified chronic kidney disease (principal); I50.23 Acute on chronic systolic (congestive) heart failure; I82.501 Chronic embolism and thrombosis of unspecified deep veins of right lower extremity; N18.4 Chronic kidney disease, stage 4 (severe); N17.9 Acute kidney failure, unspecified; E87.2 Acidosis; I48.1 Persistent atrial fibrillation; E11.22 Type 2 diabetes mellitus with diabetic chronic kidney disease; I08.3 Combined rheumatic disorders of mitral, aortic and tricuspid valves; I27.20 Pulmonary hypertension, unspecified; I42.9 Cardiomyopathy, unspecified; D63.1 Anemia in chronic kidney disease; D50.9 Iron deficiency anemia, unspecified; E87.6 Hypokalemia; K80.20 Calculus of gallbladder without cholecystitis without obstruction; E78.5 Hyperlipidemia, unspecified; K21.9 Gastro-esophageal reflux disease without esophagitis; H35.30 Unspecified macular degeneration; H40.9 Unspecified glaucoma; T50.2X5A Adverse effect of carbonic-anhydrase inhibitors, benzothiadiazides and other diuretics, initial encounter; R32 Unspecified urinary incontinence; I25.10 Atherosclerotic heart disease of native coronary artery without angina pectoris; Z79.01 Long term (current) use of anticoagulants; Z79.84 Long term (current) use of oral hypoglycemic drugs; Z79.891 Long term (current) use of opiate analgesic; Z79.899 Other long term (current) drug therapy; Z90.710 Acquired absence of both cervix and uterus; Z96.642 Presence of left artificial hip joint; Z95.828 Presence of other vascular implants and grafts; Z87.891 Personal history of nicotine dependence; Z86.19 Personal history of other infectious and parasitic diseases; Z85.3 Personal history of malignant neoplasm of breast; Z98.890 Other specified postprocedural states; Z88.5 Allergy status to narcotic agent; Z88.8 Allergy status to other drugs, medicaments and biological substances; Z83.3 Family history of diabetes mellitus
CPT/HCPCS: 36415; 71046; 80053; 82607; 82728; 82746; 83036; 83540; 83550; 83735; 83880; 84484; 85025; 85610; 85730; 93005; 93306; 96374; 96376; 99285

== ENCOUNTER 2019-03-11 11:22 | Inpatient (IN) | payer MEDICARE, BC ==
[2019-03-11] MEDS ORDERED: FUROSEMIDE 10 MG/ML 4 ML VIAL IV STA (12:16)
--- NOTE | 2019-03-11 12:19 | ED ---
General Adult HPI - General Chief complaint: Shortness of Breath Stated complaint: Sob Time Seen by Provider: 03/11/19 11:55 Source: patient, family, RN notes reviewed Mode of arrival: wheelchair Limitations: no limitations - History of Present Illness Initial comments: Patient is a pleasant 84 old female presenting to the emergency department regarding concerns of fluid buildup. Onset of symptoms was today. Patient has gained 3 pounds. Patient does feel somewhat short of breath and fatigue. Patient does have chronic leg swelling that is somewhat increased. Patient did take an extra dose of her diuretics without improvement of symptoms. Patient has been urinating. Patient has been told she needs dialysis however has refused so far. No chest pain. No isolated area of weakness. Patient does have known history of blood clots and atrial fibrillation and is on Xarelto. - Related Data Home Medications Medication Instructions Recorded Confirmed Allopurinol [Zyloprim] 200 mg PO DAILY 01/22/14 03/11/19 Linagliptin [Tradjenta] 5 mg PO DAILY@1500 01/22/14 03/11/19 Omeprazole [PriLOSEC] 20 mg PO DAILY 01/22/14 03/11/19 Docusate Sodium [Stool Softener] 100 mg PO BID 02/22/14 03/11/19 Garlic 1 tab PO BID 02/22/14 03/11/19 Calcitriol 0.25 mcg PO SUTUTHSA 08/22/14 03/11/19 Brinzolamide/Brimonidine Tart 1 drop BOTH EYES BID 05/11/17 03/11/19 [Simbrinza 1%-0.2% Eye Drops] Vit C/E/Zn/Coppr/Lutein/Zeaxan 1 tab PO BID 12/03/17 03/11/19 [Preservision Areds 2 Softgel] Ferrous Sulfate [Feosol] 325 mg PO DAILY 01/11/18 03/11/19 Ammonium Lactate Cream [Lac-Hydrin 1 applic TOPICAL BID 02/10/18 03/11/19 12% Cream] Cholecalciferol (Vitamin D3) 2,000 unit PO DAILY 02/10/18 03/11/19 [Vitamin D3] Isosorbide Mononitrate ER [Imdur] 60 mg PO DAILY 02/10/18 03/11/19 Wheat Dextrin [Benefiber] 1 packet PO BID 02/10/18 03/11/19 Midodrine [ProAmatine] 10 mg PO TID 04/10/18 03/11/19 Rivaroxaban [Xarelto] 10 mg PO DAILY 04/10/18 03/11/19 Potassium Chloride ER [K-Dur 10] 50 meq PO QAM 06/02/18 03/11/19 Metoprolol Tartrate [Lopressor] 25 mg PO DAILY@1500 06/15/18 03/11/19 Metoprolol Tartrate [Lopressor] 50 mg PO BID@0700,2300 09/18/18 03/11/19 Ondansetron [Zofran] 4 mg PO Q8HR PRN 09/18/18 03/11/19 traMADol HCL [Ultram] 50 mg PO TID@0800,1600,2300 01/04/19 03/11/19 Metolazone [Zaroxolyn] 5 mg PO DAILY PRN 03/11/19 03/11/19 Torsemide [Demadex] 20 mg PO DAILY 03/11/19 03/11/19 Allergies Allergy/AdvReac Type Severity Reaction Status Date / Time atorvastatin calcium Allergy Unknown Verified 03/11/19 12:47 [From Lipitor] codeine Allergy Unknown Verified 03/11/19 12:47 [From Tylenol-Codeine #3] hydrocodone AdvReac Vomiting Verified 03/11/19 12:47 Review of Systems ROS Statement: Those systems with pertinent positive or pertinent negative responses have been documented in the HPI. ROS Other: All systems not noted in ROS Statement are negative. Constitutional: Denies: fever Eyes: Denies: eye pain ENT: Denies: ear pain Respiratory: Reports: as per HPI, dyspnea Cardiovascular: Denies: chest pain Endocrine: Reports: fatigue Gastrointestinal: Denies: abdominal pain Genitourinary: Denies: dysuria Musculoskeletal: Denies: back pain Skin: Denies: rash Neurological: Denies: weakness Past Medical History Past Medical History: Atrial Fibrillation, Coronary Artery Disease (CAD), Cancer, Heart Failure, Diabetes Mellitus, Deep Vein Thrombosis (DVT), Eye Disorder, GERD/Reflux, Hypertension, Renal Disease Additional Past Medical History / Comment(s): Macular Degeneration and glaucoma, gallstones, stage 4 kidney failure, hx Uterine & groin CA; WEARS BILAT THIGH HIGH HOSE, uses cane or walker, patient states she has "2 blood clots in right groin since 2003" family states now clot is "through the whole leg", CHF, rt hip bone and bone History of Any Multi-Drug Resistant Organisms: ESBL, VRE Date of last positivie culture/infection: 02/11/19 ESBL E.Coli; 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 left hip replacement, LEFT breast biopsy, darcy filter rt leg, biopsy of right nostril, biopsy rt breast Past Anesthesia/Blood Transfusion Reactions: No Reported Reaction Past Psychological History: No Psychological Hx Reported Smoking Status: Former smoker Past Alcohol Use History: None Reported Past Drug Use History: None Reported - Past Family History Mother Family Medical History: No Reported History Additional Family Medical History / Comment(s): Family states pt's mother " of pneumonia". Father Family Medical History: Diabetes Mellitus General Exam Limitations: no limitations General appearance: alert, in no apparent distress Head exam: Present: atraumatic Eye exam: Present: normal appearance, PERRL ENT exam: Present: normal oropharynx Neck exam: Present: normal inspection Respiratory exam: Present: normal lung sounds bilaterally Cardiovascular Exam: Present: irregular rhythm Expanded Peripheral pulses: 2+: Dorsalis Pedis (R), Dorsalis Pedis (L) GI/Abdominal exam: Present: soft. Absent: tenderness Extremities exam: Present: normal inspection, pedal edema. Absent: calf tenderness Neurological exam: Present: alert Psychiatric exam: Present: normal affect, normal mood Skin exam: Present: normal color Course Vital Signs 03/11/19 03/11/19 11:24 11:26 Temperature 98.3 F Pulse Rate 90 Respiratory 18 20 Rate Blood Pressure 126/62 O2 Sat by Pulse 100 Oximetry EKG Findings - EKG Comments: EKG Findings:: A. fib with rate of 93. QRS 82. QT 354. QTC 440. Normal axis. Normal QRS. Nonspecific T waves Medical Decision Making - Medical Decision Making Patient reevaluated. Patient and family updated. Patient was very short of breath with exertion and use the restroom. Case discussed with Dr. esquivel, covering for Dr. Owen, who will admit covering for Dr. De Jesus. - Lab Data Result diagrams: 03/11/19 11:35 03/11/19 11:35 Lab Results 03/11/19 03/11/19 03/11/19 Range/Units 11:35 11:35 11:35 WBC 10.0 (3.8-10.6) k/uL RBC 2.81 L (3.80-5.40) m/uL Hgb 10.5 L (11.4-16.0) gm/dL Hct 32.8 L (34.0-46.0) % MCV 117.0 H (80.0-100.0) fL MCH 37.3 H (25.0-35.0) pg MCHC 31.9 (31.0-37.0) g/dL RDW 18.3 H (11.5-15.5) % Plt Count 178 (150-450) k/uL Neutrophils % 81 % Lymphocytes % 12 % Monocytes % 4 % Eosinophils % 1 % Basophils % 0 % Neutrophils # 8.1 H (1.3-7.7) k/uL Lymphocytes # 1.2 (1.0-4.8) k/uL Monocytes # 0.4 (0-1.0) k/uL Eosinophils # 0.1 (0-0.7) k/uL Basophils # 0.0 (0-0.2) k/uL Manual Slide Review Performed Polychromasia Present Hypochromasia Marked Poikilocytosis (manual Present Anisocytosis Slight Macrocytosis Marked A Target Cells Present PT (9.0-12.0) sec INR (<1.2) APTT (22.0-30.0) sec Sodium 140 (137-145) mmol/L Potassium 5.1 (3.5-5.1) mmol/L Chloride 109 H (98-107) mmol/L Carbon Dioxide 16 L (22-30) mmol/L Anion Gap 15 mmol/L BUN 59 H (7-17) mg/dL Creatinine 3.00 H (0.52-1.04) mg/dL Est GFR (CKD-EPI)AfAm 16 (>60 ml/min/1.73 sqM) Est GFR (CKD-EPI)NonAf 14 (>60 ml/min/1.73 sqM) Glucose 135 H (74-99) mg/dL Calcium 9.7 (8.4-10.2) mg/dL Total Bilirubin 0.8 (0.2-1.3) mg/dL AST 20 (14-36) U/L ALT 14 (9-52) U/L Alkaline Phosphatase 96 (38-126) U/L Troponin I (0.000-0.034) ng/mL NT-Pro-B Natriuret Pep 24742 pg/mL Total Protein 6.8 (6.3-8.2) g/dL Albumin 3.8 (3.5-5.0) g/dL 03/11/19 03/11/19 Range/Units 11:35 11:35 WBC (3.8-10.6) k/uL RBC (3.80-5.40) m/uL Hgb (11.4-16.0) gm/dL Hct (34.0-46.0) % MCV (80.0-100.0) fL MCH (25.0-35.0) pg MCHC (31.0-37.0) g/dL RDW (11.5-15.5) % Plt Count (150-450) k/uL Neutrophils % % Lymphocytes % % Monocytes % % Eosinophils % % Basophils % % Neutrophils # (1.3-7.7) k/uL Lymphocytes # (1.0-4.8) k/uL Monocytes # (0-1.0) k/uL Eosinophils # (0-0.7) k/uL Basophils # (0-0.2) k/uL Manual Slide Review Polychromasia Hypochromasia Poikilocytosis (manual Anisocytosis Macrocytosis Target Cells PT 13.6 H (9.0-12.0) sec INR 1.3 H (<1.2) APTT 41.4 H (22.0-30.0) sec Sodium (137-145) mmol/L Potassium (3.5-5.1) mmol/L Chloride (98-107) mmol/L Carbon Dioxide (22-30) mmol/L Anion Gap mmol/L BUN (7-17) mg/dL Creatinine (0.52-1.04) mg/dL Est GFR (CKD-EPI)AfAm (>60 ml/min/1.73 sqM) Est GFR (CKD-EPI)NonAf (>60 ml/min/1.73 sqM) Glucose (74-99) mg/dL Calcium (8.4-10.2) mg/dL Total Bilirubin (0.2-1.3) mg/dL AST (14-36) U/L ALT (9-52) U/L Alkaline Phosphatase (38-126) U/L Troponin I <0.012 (0.000-0.034) ng/mL NT-Pro-B Natriuret Pep pg/mL Total Protein (6.3-8.2) g/dL Albumin (3.5-5.0) g/dL - Radiology Data Radiology results: image reviewed (Chest x-ray shows cardiomegaly. Tiny right pleural effusion. Bilateral midlung scarring or atelectasis.) Disposition Clinical Impression: Congestive heart failure (CHF) Disposition: ADMITTED IP TO THIS HOSP Is patient prescribed a controlled substance at d/c from ED?: No Referrals: Jak Nathan MD [Primary Care Provider] - 1-2 days Decision Time: 13:50
[2019-03-11 12:37] LABS: Anisocytosis Slight; Basophils % (A) 0 %; Eosinophils # (A) 0.1 k/uL (0-0.7); Eosinophils % (A) 1 %; HCT 32.8 % (34.0-46.0); HGB 10.5 gm/dL (11.4-16.0); Hypochromasia Marked; Lymphocytes # (A) 1.2 k/uL (1.0-4.8); Lymphocytes % (A) 12 %; MCH 37.3 pg (25.0-35.0); MCHC 31.9 g/dL (31.0-37.0); Macrocytosis Marked; Mean Platelet Volume 8.3; Monocytes # (A) 0.4 k/uL (0-1.0); Monocytes % (A) 4 %; Neutrophils # (A) 8.1 k/uL (1.3-7.7); Neutrophils % (A) 81 %; Platelet Count 178 k/uL (150-450); RBC 2.81 m/uL (3.80-5.40); RDW 18.3 % (11.5-15.5)
--- NOTE | 2019-03-11 12:42 | XR ---
EXAMINATION TYPE: XR chest 2V DATE OF EXAM: 03/11/2019 COMPARISON: Chest x-ray January 08, 2019 HISTORY: Shortness of breath and swelling TECHNIQUE: Frontal and lateral views of the chest are obtained. FINDINGS: Persistent bilateral hilar linear scarring and/or atelectasis remains present There is no new suspicious focal air space opacity or pneumothorax seen. Tiny right pleural effusion felt improve d from prior. The cardiac silhouette size remains enlarged. The osseous structures are intact. IMPRESSION: Cardiomegaly with tiny right pleural effusion improved from prior. Stable bilateral midl nemesio linear scarring and/or atelectasis. No new focal infiltrate.
[2019-03-11 12:44] LABS: Albumin 3.8 g/dL (3.5-5.0); Calcium 9.7 mg/dL (8.4-10.2); INR 1.3 (<1.2); Partial Thromboplastin Time 41.4 sec (22.0-30.0); Potassium 5.1 mmol/L (3.5-5.1); Prothrombin Time 13.6 sec (9.0-12.0); Total Bilirubin 0.8 mg/dL (0.2-1.3); Total Protein 6.8 g/dL (6.3-8.2)
[2019-03-11 13:17] LABS: Polychromasia Present; Target Cells Present
[2019-03-11 13:18] LABS: Poikilocytosis (M) Present
[2019-03-11] MEDS ORDERED: ASPIRIN 325 MG TAB PO STA (13:51)
[2019-03-11] MEDS ORDERED: FUROSEMIDE 10 MG/ML 4 ML VIAL IV SCH (14:00)
[2019-03-11] MEDS: NITROGLYCERIN OINT 1 INCH/GM PACKET TOPICAL SCH ×3 (14:30→22:44)
[2019-03-11 14:32] LABS: Appearance,Urine Clear (Clear); Bacteria,Urine Moderate /hpf; Bilirubin,Urine Negative (Negative); Blood,Urine Negative (Negative); Color,Urine Light Yellow; Glucose,Urine (UA) Negative (Negative); Ketones,Urine Negative (Negative); Leukocyte Esterase,Urine Small (Negative); Mucus,Urine Rare /hpf; Nitrite,Urine Negative (Negative); Protein,Urine Negative (Negative); RBC,Urine <1 /hpf (0-5); Specific Gravity,Urine 1.007 (1.001-1.035); Squamous Epithelial Cell,Urine <1 /hpf (0-4); Urobilinogen,Urine <2.0 mg/dL (<2.0); WBC,Urine 7 /hpf (0-5)
[2019-03-11 17:19] LABS: Glucose,Whole Blood 123 mg/dL (75-99)
[2019-03-11] MEDS ORDERED: NALOXONE 0.4 MG/ML 1 ML VIAL IV PRN (18:43)
[2019-03-11] MEDS ORDERED: ONDANSETRON 4 MG TAB PO PRN (18:47)
[2019-03-11] MEDS ORDERED: METOLAZONE 5 MG TAB PO PRN (18:47)
--- NOTE | 2019-03-11 19:51 | P.HPIM ---
History of Present Illness H&P Date: 03/11/19 Chief Complaint: Increase leg swelling/SOB, fatigue and weight gain for couple of days. This 84-year-old lady with past medical history significant for heart failure with reduced ejection fraction of 30-35%, coronary artery disease, see daily stage IV, diabetes and metastatic to, hypertension, DVT right lower extremity, atrial fibrillation, GERD, glaucoma/macular degeneration and legally blind status, who presented to the emergency room with the above complaints. Patient reports that couple weeks ago she was at the [place] and where she has to eat outside otherwise she is very good in controlling her fluid intake and salt intake. She thinks that she did fairly well when she was out her home and environment. Patient also reports that this weekend they have their high school reunion where she ate [employer] food. She noted that for couple days she has been getting little fatigued and tired easily with short winded. She also reported that her legs were getting more swollen and she was getting difficulty breathing. Patient reports that she took extra water pill without significant increase in her urine output. Patient has an appointment with her o phthalmologist earlier today so she did not came to the emergency room until she is been seen and evaluated by furniture lumber production worker who also recommended her to go to the emergency room for further management. In the emergency room patient was evaluated and was noted to have axis patient of congestive heart failure with weight gain and she was given 40 mg of IV Lasix and with much improvement in her symptoms. Patient was admitted to the hospital for further management. Patient denies chest pain, palpitation, diaphoresis, dizziness, lightheadedness, headache, cough/sputum, fever or chills, nausea/vomiting/diarrhea and denies rest of the review system. Review of Systems 12 point review of system was essentially negative other than mentioned in HPI. Past Medical History Past Medical History: Atrial Fibrillation, Coronary Artery Disease (CAD), Cancer, Heart Failure, Diabetes Mellitus, Deep Vein Thrombosis (DVT), Eye Disorder, GERD/Reflux, Hypertension, Renal Disease Additional Past Medical History / Comment(s): Macular Degeneration and glaucoma, gallstones, stage 4 kidney failure, hx Uterine & groin CA; WEARS BILAT THIGH HIGH HOSE, uses cane or walker, patient states she has "2 blood clots in right groin since 2003" family states now clot is "through the whole leg", CHF, rt hip bone and bone History of Any Multi-Drug Resistant Organisms: ESBL, VRE Date of last positivie culture/infection: 02/11/19 ESBL E.Coli; 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 left hip replacement, LEFT breast biopsy, darcy filter rt leg, biopsy of right nostril, biopsy rt breast Past Anesthesia/Blood Transfusion Reactions: No Reported Reaction Past Psychological History: No Psychological Hx Reported Smoking Status: Former smoker Past Alcohol Use History: None Reported Additional Past Alcohol Use History / Comment(s): smoked 1 pkg from 1961 to 1971 Past Drug Use History: None Reported - Past Family History Mother Family Medical History: No Reported History Additional Family Medical History / Comment(s): Family states pt's mother " of pneumonia". Father Family Medical History: Diabetes Mellitus Medications and Allergies Home Medications Medication Instructions Recorded Confirmed Type Allopurinol [Zyloprim] 200 mg PO DAILY 01/22/14 03/11/19 History Linagliptin [Tradjenta] 5 mg PO DAILY@1500 01/22/14 03/11/19 History Omeprazole [PriLOSEC] 20 mg PO DAILY 01/22/14 03/11/19 History Docusate Sodium [Stool Softener] 100 mg PO BID 02/22/14 03/11/19 History Garlic 1 tab PO BID 02/22/14 03/11/19 History Calcitriol 0.25 mcg PO SUTUTHSA 08/22/14 03/11/19 History Brinzolamide/Brimonidine Tart 1 drop BOTH EYES BID 05/11/17 03/11/19 History [Simbrinza 1%-0.2% Eye Drops] Vit C/E/Zn/Coppr/Lutein/Zeaxan 1 tab PO BID 12/03/17 03/11/19 History [Preservision Areds 2 Softgel] Ferrous Sulfate [Feosol] 325 mg PO DAILY 01/11/18 03/11/19 History Ammonium Lactate Cream [Lac-Hydrin 1 applic TOPICAL BID 02/10/18 03/11/19 History 12% Cream] Cholecalciferol (Vitamin D3) 2,000 unit PO DAILY 02/10/18 03/11/19 History [Vitamin D3] Isosorbide Mononitrate ER [Imdur] 60 mg PO DAILY 02/10/18 03/11/19 History Wheat Dextrin [Benefiber] 1 packet PO BID 02/10/18 03/11/19 History Midodrine [ProAmatine] 10 mg PO TID 04/10/18 03/11/19 History Rivaroxaban [Xarelto] 10 mg PO DAILY 04/10/18 03/11/19 History Potassium Chloride ER [K-Dur 10] 50 meq PO QAM 06/02/18 03/11/19 History Metoprolol Tartrate [Lopressor] 25 mg PO DAILY@1500 06/15/18 03/11/19 History Metoprolol Tartrate [Lopressor] 50 mg PO BID@0700,2300 09/18/18 03/11/19 History Ondansetron [Zofran] 4 mg PO Q8HR PRN 09/18/18 03/11/19 History traMADol HCL [Ultram] 50 mg PO TID@0800,1600,2300 01/04/19 03/11/19 History Metolazone [Zaroxolyn] 5 mg PO DAILY PRN 03/11/19 03/11/19 History Torsemide [Demadex] 20 mg PO DAILY 03/11/19 03/11/19 History Allergies Allergy/AdvReac Type Severity Reaction Status Date / Time atorvastatin calcium Allergy Unknown Verified 03/11/19 12:47 [From Lipitor] codeine Allergy Unknown Verified 03/11/19 12:47 [From Tylenol-Codeine #3] hydrocodone AdvReac Vomiting Verified 03/11/19 12:47 Physical Exam Vitals: Vital Signs Temp Pulse Pulse Resp BP BP Pulse Ox 03/11/19 16:00 100 20 03/11/19 15:35 97.5 F L 100 20 112/77 03/11/19 14:36 87 18 109/72 98 03/11/19 11:26 20 03/11/19 11:24 98.3 F 90 18 126/62 100 Intake and Output 03/11/19 03/11/19 03/11/19 06:59 14:59 22:59 Output Total 200 500 Balance -200 -500 Output: Urine 200 500 Other: Voiding Method Toilet Diaper Incontinent # Voids 1 # Bowel Movements 0 Weight 79.7 kg - Constitutional General appearance: cooperative, no acute distress - EENT Patient is legally blind and hard of hearing. Eyes: EOMI, normal appearance ENT: hearing grossly normal, NA/AT - Neck Neck: no lymphadenopathy, normal ROM, no rigidity, no stridor, no thyromegaly - Respiratory Respiratory: bilateral: CTA, diminished (At the bases), dullness (At the bases), negative: rales, rhonchi, wheezing - Cardiovascular Rhythm: irregularly irregular Heart sounds: normal: S1 (Variable), S2 (Variable) Abnormal Heart Sounds: no systolic murmur, no diastolic murmur, no S3 Gallop, no S4 Gallop - Gastrointestinal General gastrointestinal: no distended, normal bowel sounds, no rigid, soft, no tenderness Results CBC & Chem 7: 03/11/19 11:35 03/11/19 11:35 Labs: Abnormal Lab Results - Last 24 Hours (Table) 03/11/19 03/11/19 03/11/19 Range/Units 11:35 11:35 11:35 RBC 2.81 L (3.80-5.40) m/uL Hgb 10.5 L (11.4-16.0) gm/dL Hct 32.8 L (34.0-46.0) % MCV 117.0 H (80.0-100.0) fL MCH 37.3 H (25.0-35.0) pg RDW 18.3 H (11.5-15.5) % Neutrophils # 8.1 H (1.3-7.7) k/uL Macrocytosis Marked A PT 13.6 H (9.0-12.0) sec INR 1.3 H (<1.2) APTT 41.4 H (22.0-30.0) sec Chloride 109 H (98-107) mmol/L Carbon Dioxide 16 L (22-30) mmol/L BUN 59 H (7-17) mg/dL Creatinine 3.00 H (0.52-1.04) mg/dL Glucose 135 H (74-99) mg/dL POC Glucose (mg/dL) (75-99) mg/dL Ur Leukocyte Esterase (Negative) Urine WBC (0-5) /hpf Urine Bacteria (None) /hpf Urine Mucus (None) /hpf 03/11/19 03/11/19 Range/Units 13:00 17:09 RBC (3.80-5.40) m/uL Hgb (11.4-16.0) gm/dL Hct (34.0-46.0) % MCV (80.0-100.0) fL MCH (25.0-35.0) pg RDW (11.5-15.5) % Neutrophils # (1.3-7.7) k/uL Macrocytosis PT (9.0-12.0) sec INR (<1.2) APTT (22.0-30.0) sec Chloride (98-107) mmol/L Carbon Dioxide (22-30) mmol/L BUN (7-17) mg/dL Creatinine (0.52-1.04) mg/dL Glucose (74-99) mg/dL POC Glucose (mg/dL) 123 H (75-99) mg/dL Ur Leukocyte Esterase Small H (Negative) Urine WBC 7 H (0-5) /hpf Urine Bacteria Moderate H (None) /hpf Urine Mucus Rare H (None) /hpf Comments: EKG was reviewed which showed atrial fibrillation with controlled heart rate. Chest x-ray: report reviewed Thrombosis Risk Factor Assmnt - DVT/VTE Prophylaxis DVT/VTE Prophylaxis: Contraindicated - See note - Choose All That Apply Any of the Below Risk Factors Present?: Yes Each Factor Represents 1 point: Obesity (BMI >25), Swollen legs (current) Other Risk Factors: Yes Each Risk Factor Represents 3 Points: Age 75 years or older, History of DVT/PE Other congenital or acquired thrombophilia - If yes, enter type in comment: No Thrombosis Risk Factor Assessment Total Risk Factor Score: 8 Thrombosis Risk Factor Assessment Level: High Risk Assessment and Plan (1) Congestive heart failure (CHF) Current Visit: Yes Status: Acute Priority: High Code(s): I50.9 - HEART FAILURE, UNSPECIFIED SNOMED Code(s): 18577754 (2) CKD (chronic kidney disease) stage 4, GFR 15-29 ml/min Current Visit: Yes Status: Acute Priority: High Code(s): N18.4 - CHRONIC KIDNEY DISEASE, STAGE 4 (SEVERE) SNOMED Code(s): 104563989 (3) CAD (coronary artery disease) Current Visit: Yes Status: Chronic Priority: Medium Code(s): I25.10 - ATHSCL HEART DISEASE OF [place] CORONARY ARTERY W/O ANG PCTRS SNOMED Code(s): 75238172 (4) Afib Current Visit: Yes Status: Chronic Priority: High Code(s): I48.91 - UNSPECIFIED ATRIAL FIBRILLATION SNOMED Code(s): 76273589 (5) Diabetes mellitus Current Visit: Yes Status: Chronic Priority: Medium Code(s): E11.9 - TYPE 2 DIABETES MELLITUS WITHOUT COMPLICATIONS SNOMED Code(s): 00235152 (6) Hypertension Current Visit: No Status: Acute Priority: Medium Code(s): I10 - ESSENTIAL (PRIMARY) HYPERTENSION SNOMED Code(s): 57146941 (7) GERD (gastroesophageal reflux disease) Current Visit: Yes Status: Chronic Priority: Medium Code(s): K21.9 - GASTRO-ESOPHAGEAL REFLUX DISEASE WITHOUT ESOPHAGITIS SNOMED Code(s): 943979822 (8) Glaucoma Current Visit: No Status: Chronic Priority: Medium Code(s): H40.9 - UNSPECIFIED GLAUCOMA SNOMED Code(s): 24765249 (9) Macular degeneration (senile) of retina, unspecified Current Visit: No Status: Chronic Priority: Medium Code(s): H35.30 - UNSPECIFIED MACULAR DEGENERATION SNOMED Code(s): 414037692 Plan: Patient was admitted to cardiac stepdown with the IV Lasix and sees her protocol. Patient states I's and O's will be monitored. Patient will be refe rred to cardiology service for further evaluation and management. Diet counseling was done to the patient will continue fluid restriction. For her lower exudate chronic edema from heart failure she will continue tight stockings. Patient will refer to nephrology services for management of CKD stag e IV I did talk to patient regarding hemodialysis(s) in the past it was discussed with her but patient refused to have any hemodialysis as of now. She wishes to be DO NOT RESUSCITATE/DO NOT INTUBATE, stated that if she collapsed her go. Patient will be continued on oral anticoagulation for chronic atrial fibrillation and DVT history. Blood sugar will be checked and cover with sliding scale and her oral hypoglycemics will be held. Blood pressure medication will be continued as it is along with cardiac medications. Patient blood, medication were reviewed and will be continued as it is. Patient will be continued on oral proton pump inhibitor for her GI protection. Plan is to keep the patient in the hospital for 2-3 days fine-tune her and then send her back in the community. Time with Patient: Greater than 30
[2019-03-11 20:28] LABS: Glucose,Whole Blood 136 mg/dL (75-99)
[2019-03-11] MEDS: CALCIUM POLYCARBOPHIL 625 MG TAB PO SCH (20:53)
[2019-03-11] MEDS: METOPROLOL TARTRATE 50 MG TAB PO SCH (20:53)
[2019-03-11] MEDS: FUROSEMIDE 10 MG/ML 4 ML VIAL IV SCH (20:53)
[2019-03-11] MEDS: DOCUSATE 100 MG CAP PO SCH (20:53)
[2019-03-11] MEDS: INSULIN ASPART (NovoLOG) 100 UNIT/ML VIAL SQ SCH (20:54)
[2019-03-11] MEDS: AMMONIUM LACTATE 12% CREAM 140 GM TUBE TOPICAL SCH (20:54)
[2019-03-11] MEDS: NON-FORMULARY DRUG (Brinzolamide/Brimonidine Tart [Simbrinza 1%-0.2% Eye Drops] 1 DROP) BOTH EYES SCH (20:54)
[2019-03-11] MEDS ORDERED: NON-FORMULARY DRUG (Garlic [Garlic] 1 TAB) PO SCH (21:00)
[2019-03-11] MEDS: traMADol 50 MG TAB PO SCH (22:44)
[2019-03-12] MEDS: ACETAMINOPHEN TAB 325 MG TAB PO PRN (03:34)
[2019-03-12] MEDS: MIDODRINE 5 MG TAB PO SCH ×3 (05:49→17:03)
[2019-03-12] MEDS: PANTOPRAZOLE 40 MG TABLET PO SCH (05:49)
[2019-03-12] MEDS: METOPROLOL TARTRATE 50 MG TAB PO SCH ×2 (05:49→21:27)
[2019-03-12] MEDS: FUROSEMIDE 10 MG/ML 4 ML VIAL IV SCH (05:50)
[2019-03-12 05:53] LABS: Glucose,Whole Blood 103 mg/dL (75-99)
[2019-03-12] MEDS: INSULIN ASPART (NovoLOG) 100 UNIT/ML VIAL SQ SCH ×4 (05:53→21:35)
[2019-03-12 07:07] LABS: Calcium 9.7 mg/dL (8.4-10.2); Potassium 3.8 mmol/L (3.5-5.1)
[2019-03-12] MEDS: traMADol 50 MG TAB PO SCH ×3 (07:58→21:26)
[2019-03-12] MEDS: CALCIUM POLYCARBOPHIL 625 MG TAB PO SCH ×2 (07:59→21:34)
[2019-03-12] MEDS: CALCITRIOL 0.25 MCG CAP PO SCH (07:59)
[2019-03-12] MEDS: CHOLECALCIFEROL 1,000 UNIT TAB PO SCH (07:59)
[2019-03-12] MEDS: ALLOPURINOL 100 MG TAB PO SCH (07:59)
[2019-03-12] MEDS: RIVAROXABAN 10 MG TAB PO SCH (07:59)
[2019-03-12] MEDS: ISOSORBIDE MONONITRATE ER 60 MG TAB.ER.24H PO SCH (07:59)
[2019-03-12] MEDS: DOCUSATE 100 MG CAP PO SCH ×2 (07:59→21:27)
[2019-03-12] MEDS: POTASSIUM CHLORIDE ER 10 MEQ TAB.ER.PRT PO SCH (08:00)
[2019-03-12] MEDS: NON-FORMULARY DRUG (Brinzolamide/Brimonidine Tart [Simbrinza 1%-0.2% Eye Drops] 1 DROP) BOTH EYES SCH ×2 (08:04→21:26)
[2019-03-12] MEDS ORDERED: FERROUS SULFATE 325 MG TAB PO SCH (09:00)
[2019-03-12] MEDS ORDERED: ASPIRIN 325 MG TAB PO SCH (09:00)
--- NOTE | 2019-03-12 09:37 | P.CRDCN ---
History of Present Illness Consult date: 03/12/19 Requesting physician: Ahmet Guzman Consult reason: congestive heart failure Chief complaint: Shortness of breath and weight gain History of present illness: This is a pleasant 84-year-old female who follows with Dr. May in the office, she has a past medical history significant for chronic atrial fibrillation, systolic congestive heart failure, valvular heart disease, history of DVT, chronic systolic congestive heart failure, diabetes, hypertension, renal failure, hyperlipidemia, presents to the hospital with symptoms of shortness of breath and weight gain. Overall the patient states she's been doing fairly well, she's been doing a lot of traveling this year and overall has not had many exacerbations of her congestive cardiac failure. She has noticed recently to be little more short of breath and also her weight has gone up. Her daughter spoke with her director volunteer services and they recommended that she come to the hospital for further evaluation and treatment. Her chest x-ray on admission showed cardiomegaly with tiny right pleural effusion improved from prior. EKG shows a trial fibrillation with a controlled ventricular response. Blood pressure 100/60 with a heart rate in the 70s, 100% on room air. White blood cell count 10.0, hemoglobin 10.5, platelet count 178. Sodium 139, potassium 3.8, BUN 64 and creatinine 3.0. Troponin 0.012, BNP level 17,500. At the time of my examination this morning, the patient is sitting up in a chair at bedside, feet elevated, daughter at bedside. Overall she does state that she is feeling better. Her weight is down 2 kg. Past Medical History Past Medical History: Atrial Fibrillation, Coronary Artery Disease (CAD), Cancer, Heart Failure, Diabetes Mellitus, Deep Vein Thrombosis (DVT), Eye Disorder, GERD/Reflux, Hypertension, Renal Disease Additional Past Medical History / Comment(s): Macular Degeneration and glaucoma, gallstones, stage 4 kidney failure, hx Uterine & groin CA; WEARS BILAT THIGH HIGH HOSE, uses cane or walker, patient states she has "2 blood clots in right groin since 2003" family states now clot is "through the whole leg", CHF, rt hip bone and bone History of Any Multi-Drug Resistant Organisms: ESBL, VRE Date of last positivie culture/infection: 02/11/19 ESBL E.Coli; 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 left hip replacement, LEFT breast biopsy, darcy filter rt leg, biopsy of right nostril, biopsy rt breast Past Anesthesia/Blood Transfusion Reactions: No Reported Reaction Past Psychological History: No Psychological Hx Reported Smoking Status: Former smoker Past Alcohol Use History: None Reported Additional Past Alcohol Use History / Comment(s): smoked 1 pkg from 1961 to 1971 Past Drug Use History: None Reported - Past Family History Mother Family Medical History: No Reported History Additional Family Medical History / Comment(s): Family states pt's mother " of pneumonia". Father Family Medical History: Diabetes Mellitus Medications and Allergies Home Medications Medication Instructions Recorded Confirmed Type Allopurinol [Zyloprim] 200 mg PO DAILY 01/22/14 03/11/19 History Linagliptin [Tradjenta] 5 mg PO DAILY@1500 01/22/14 03/11/19 History Omeprazole [PriLOSEC] 20 mg PO DAILY 01/22/14 03/11/19 History Docusate Sodium [Stool Softener] 100 mg PO BID 02/22/14 03/11/19 History Garlic 1 tab PO BID 02/22/14 03/11/19 History Calcitriol 0.25 mcg PO SUTUTHSA 08/22/14 03/11/19 History Brinzolamide/Brimonidine Tart 1 drop BOTH EYES BID 05/11/17 03/11/19 History [Simbrinza 1%-0.2% Eye Drops] Vit C/E/Zn/Coppr/Lutein/Zeaxan 1 tab PO BID 12/03/17 03/11/19 History [Preservision Areds 2 Softgel] Ferrous Sulfate [Feosol] 325 mg PO DAILY 01/11/18 03/11/19 History Ammonium Lactate Cream [Lac-Hydrin 1 applic TOPICAL BID 02/10/18 03/11/19 History 12% Cream] Cholecalciferol (Vitamin D3) 2,000 unit PO DAILY 02/10/18 03/11/19 History [Vitamin D3] Isosorbide Mononitrate ER [Imdur] 60 mg PO DAILY 02/10/18 03/11/19 History Wheat Dextrin [Benefiber] 1 packet PO BID 02/10/18 03/11/19 History Midodrine [ProAmatine] 10 mg PO TID 04/10/18 03/11/19 History Rivaroxaban [Xarelto] 10 mg PO DAILY 04/10/18 03/11/19 History Potassium Chloride ER [K-Dur 10] 50 meq PO QAM 06/02/18 03/11/19 History Metoprolol Tartrate [Lopressor] 25 mg PO DAILY@1500 06/15/18 03/11/19 History Metoprolol Tartrate [Lopressor] 50 mg PO BID@0700,2300 09/18/18 03/11/19 History Ondansetron [Zofran] 4 mg PO Q8HR PRN 09/18/18 03/11/19 History traMADol HCL [Ultram] 50 mg PO TID@0800,1600,2300 01/04/19 03/11/19 History Metolazone [Zaroxolyn] 5 mg PO DAILY PRN 03/11/19 03/11/19 History Torsemide [Demadex] 20 mg PO DAILY 03/11/19 03/11/19 History Allergies Allergy/AdvReac Type Severity Reaction Status Date / Time atorvastatin calcium Allergy Unknown Verified 03/11/19 12:47 [From Lipitor] codeine Allergy Unknown Verified 03/11/19 12:47 [From Tylenol-Codeine #3] hydrocodone AdvReac Vomiting Verified 03/11/19 12:47 Physical Exam Vitals: Vital Signs Temp Pulse Pulse Resp BP BP Pulse Ox 03/12/19 08:19 97.4 F L 78 19 101/67 100 03/12/19 08:00 78 19 03/12/19 04:00 97.9 F 90 18 94/56 98 03/12/19 00:00 98.0 F 91 17 102/68 97 03/11/19 20:00 97.7 F 84 18 110/74 100 03/11/19 16:00 100 20 03/11/19 15:35 97.5 F L 100 20 112/77 03/11/19 14:36 87 18 109/72 98 03/11/19 11:26 20 03/11/19 11:24 98.3 F 90 18 126/62 100 Intake and Output 03/11/19 03/12/19 03/12/19 22:59 06:59 14:59 Output Total 500 950 Balance -500 -950 Output: Urine 500 950 Other: Voiding Method Toilet Toilet Toilet Diaper Diaper Diaper Incontinent Incontinent Incontinent # Voids 1 2 # Bowel Movements 0 Weight 77.6 kg PHYSICAL EXAMINATION: GENERAL: 84 year old female in no acute distress at the time of my e xamination HEENT: Head is atraumatic, normocephalic. Pupils equal, round. Sclera anicteric. Conjunctiva are clear. Mucous membranes of the mouth are moist. Neck is supple. There is no elevated jugular venous pressure. No carotid bruit is heard. HEART EXAMINATION: Heart S1 and S2 irregularly irregular a systolic murmur is heard CHEST EXAMINATION: Lungs are clear with diminished air entry to bilateral bases. ABDOMEN: Soft, nontender. Bowel sounds are heard. No organomegaly noted. EXTREMITIES: 2+ peripheral pulses with 1+ edema to the right lower extremity, trace edema to the left lower extremity ,no calf tenderness noted. NEUROLOGIC patient is awake, alert and oriented 3 . . Results 03/11/19 11:35 03/12/19 06:09 Cardiac Enzymes 03/11/19 03/11/19 Range/Units 11:35 11:35 AST 20 (14-36) U/L Troponin I <0.012 (0.000-0.034) ng/mL Coagulation 03/11/19 Range/Units 11:35 PT 13.6 H (9.0-12.0) sec APTT 41.4 H (22.0-30.0) sec CBC 03/11/19 Range/Units 11:35 WBC 10.0 (3.8-10.6) k/uL RBC 2.81 L (3.80-5.40) m/uL Hgb 10.5 L (11.4-16.0) gm/dL Hct 32.8 L (34.0-46.0) % Plt Count 178 (150-450) k/uL Comprehensive Metabolic Panel 03/11/19 03/12/19 Range/Units 11:35 06:09 Sodium 140 139 (137-145) mmol/L Potassium 5.1 3.8 (3.5-5.1) mmol/L Chloride 109 H 107 (98-107) mmol/L Carbon Dioxide 16 L 19 L (22-30) mmol/L BUN 59 H 64 H (7-17) mg/dL Creatinine 3.00 H 3.08 H (0.52-1.04) mg/dL Glucose 135 H 92 (74-99) mg/dL Calcium 9.7 9.7 (8.4-10.2) mg/dL AST 20 (14-36) U/L ALT 14 (9-52) U/L Alkaline Phosphatase 96 (38-126) U/L Total Protein 6.8 (6.3-8.2) g/dL Albumin 3.8 (3.5-5.0) g/dL Current Medications Generic Name Dose Route Start Last Admin Trade Name Freq PRN Reason Stop Dose Admin Acetaminophen 650 mg 03/12/19 03:16 03/12/19 03:34 Tylenol Tab PO 650 mg Q4HR PRN Administration Fever and/ or Pain Allopurinol 200 mg 03/12/19 09:00 03/12/19 07:59 Zyloprim PO 200 mg DAILY [facility] Administration Aspirin 325 mg 03/12/19 09:00 03/12/19 08:00 Aspirin PO 325 mg DAILY [facility] Administration Calcitriol 0.25 mcg 03/12/19 09:00 03/12/19 07:59 Rocaltrol PO 0.25 mcg SuTuThSa@0900 [facility] Administration Calcium Polycarbophil 625 mg 03/11/19 21:00 03/12/19 07:59 Fibercon PO 625 mg BID [facility] Administration Cholecalciferol 2,000 unit 03/12/19 09:00 03/12/19 07:59 Vitamin D3 (25 Mcg = 1000 Iu) PO 2,000 unit DAILY [facility] Administration Docusate Sodium 100 mg 03/11/19 21:00 03/12/19 07:59 Colace PO 100 mg BID [facility] Administration Ferrous Sulfate 325 mg 03/12/19 09:00 03/12/19 07:59 Feosol PO 325 mg DAILY [facility] Administration Furosemide 40 mg 03/11/19 22:00 03/12/19 05:50 Lasix IV Not Given Q8H [facility] Insulin Aspart 0 unit 03/11/19 21:00 03/12/19 05:53 Novolog SQ Not Given ACHS [facility] Protocol Isosorbide Mononitrate 60 mg 03/12/19 09:00 03/12/19 07:59 Imdur PO 60 mg DAILY [facility] Administration Lactic Acid 1 applic 03/11/19 21:00 03/11/19 20:54 Ammonium Lactate TOPICAL 1 applic BID [facility] Administration Metolazone 5 mg 03/11/19 18:47 Zaroxolyn PO DAILY PRN Edema Metoprolol Tartrate 25 mg 03/12/19 15:00 Lopressor PO DAILY@1500 [facility] Metoprolol Tartrate 50 mg 03/11/19 23:00 03/12/19 05:49 Lopressor PO 50 mg BID@0700,2300 [facility] Administration Midodrine 10 mg 03/12/19 07:30 03/12/19 05:49 Proamatine PO 10 mg AC-TID [facility] Administration Naloxone HCl 0.2 mg 03/11/19 18:43 Narcan IV Q2M PRN Opioid Reversal Non-Formulary Medication 1 drop 03/11/19 21:00 03/12/19 08:04 Brinzolamide/Brimonidine Tart [Simbrinza 1%-0.2% Eye Drops] BOTH EYES 1 drop BID [facility] Administration Ondansetron HCl 4 mg 03/11/19 18:47 Zofran PO Q8HR PRN Nausea Pantoprazole Sodium 40 mg 03/12/19 07:30 03/12/19 05:49 Protonix PO 40 mg [id number]-[id number] [facility] Administration Potassium Chloride 50 meq 03/12/19 09:00 03/12/19 08:00 K-Dur 10 PO 50 meq QAM [facility] Administration Rivaroxaban 10 mg 03/12/19 09:00 03/12/19 07:59 Xarelto PO 10 mg DAILY [facility] Administration Sodium Chloride 10 ml 03/11/19 21:00 03/11/19 20:53 Saline Flush IV 10 ml BID [facility] Administration Tramadol HCl 50 mg 03/11/19 23:00 03/12/19 07:58 Ultram PO 50 mg TID@0800,1600,2300 [facility] Administration Intake and Output 03/11/19 03/12/19 03/12/19 22:59 06:59 14:59 Output Total 500 950 Balance -500 -950 Output: Urine 500 950 Other: Voiding Method Toilet Toilet Toilet Diaper Diaper Diaper Incontinent Incontinent Incontinent # Voids 1 2 # Bowel Movements 0 Weight 77.6 kg 03/11/19 11:35 03/12/19 06:09 EKG Interpretations (text) EKG shows atrial fibrillation with a controlled ventricular response Assessment and Plan Plan: Assessment and plan #1 systolic congestive heart failure acute on chronic #2 acute on chronic renal failure #3 history of DVT with prior [place] filter #4 diabetes #5 hypertension #6 hyperlipidemia #7 chronic persistent atrial fibrillation, on Xarelto for anticoagulation #8 GERD Plan We will decrease the aspirin 81 mg daily, continue current dose of IV Lasix, monitoring intake and output along with daily weights and daily lytes BUN and creatinine. We will repeat an echocardiogram with Doppler study. DNP note has been reviewed, I agree with a documented findings and plan of care. Patient was seen and examined.
--- NOTE | 2019-03-12 10:25 | P.NPCON ---
History of Present Illness - Reason for Consult chronic renal failure - History of Present Illness Reason for consultation: Chronic kidney disease History of present illness: Patient is a 84-year-old female seen in consultation for chronic kidney disease. Patient has chronic kidney disease stage IV with baseline creatinine in the range of 2.7-3 secondary to cardiorenal syndrome. GFR is near baseline. Patient presented to the hospital with dyspnea and weight gain. Patient gained about 3 pounds in the last 2 days. She did take a dose of metolazone which did not help much. Otherwise she is maintained on torsemide 20 mg once daily. Patient has history of systolic CHF with ejection fraction of 30-35% with severe tricuspid regurgitation, mitral regurgitation and moderate pulmonary hypertension. Currently maintained on Lasix 40 mg IV 3 times daily. She admits to good urine output. Denies vomiting or diarrhea. No fever or chills. Denies use of nonsteroidals. Chest x-ray revealed tiny pleural effusions. Vital signs are stable. General: The patient appeared well nourished and normally developed. HEENT: Head exam is unremarkable. Neck is without jugular venous distension. LUNGS: Lungs are clear to auscultation and percussion. Breath sounds decreased. HEART: Rate and Rhythm are regular. First and second heart sounds normal. No murmurs, rubs or gallops. ABDOMEN: Abdominal exam reveals normal bowel sounds. Non-tender and non- distended. No evidence of peritonitis. EXTREMITITES: 1+ edema. Past Medical History Past Medical History: Atrial Fibrillation, Coronary Artery Disease (CAD), Cancer, Heart Failure, Diabetes Mellitus, Deep Vein Thrombosis (DVT), Eye Disorder, GERD/Reflux, Hypertension, Renal Disease Additional Past Medical History / Comment(s): Macular Degeneration and glaucoma, gallstones, stage 4 kidney failure, hx Uterine & groin CA; WEARS BILAT THIGH HIGH HOSE, uses cane or walker, patient states she has "2 blood clots in right groin since 2003" family states now clot is "through the whole leg", CHF, rt hip bone and bone History of Any Multi-Drug Resistant Organisms: ESBL, VRE Date of last positivie culture/infection: 02/11/19 ESBL E.Coli; 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 left hip replacement, LEFT breast biopsy, darcy filter rt leg, biopsy of right nostril, biopsy rt breast Past Anesthesia/Blood Transfusion Reactions: No Reported Reaction Past Psychological History: No Psychological Hx Reported Smoking Status: Former smoker Past Alcohol Use History: None Reported Additional Past Alcohol Use History / Comment(s): smoked 1 pkg from 1961 to 1971 Past Drug Use History: None Reported - Past Family History Mother Family Medical History: No Reported History Additional Family Medical History / Comment(s): Family states pt's mother " of pneumonia". Father Family Medical History: Diabetes Mellitus Medications and Allergies Home Medications Medication Instructions Recorded Confirmed Type Allopurinol [Zyloprim] 200 mg PO DAILY 01/22/14 03/11/19 History Linagliptin [Tradjenta] 5 mg PO DAILY@1500 01/22/14 03/11/19 History Omeprazole [PriLOSEC] 20 mg PO DAILY 01/22/14 03/11/19 History Docusate Sodium [Stool Softener] 100 mg PO BID 02/22/14 03/11/19 History Garlic 1 tab PO BID 02/22/14 03/11/19 History Calcitriol 0.25 mcg PO SUTUTHSA 08/22/14 03/11/19 History Brinzolamide/Brimonidine Tart 1 drop BOTH EYES BID 05/11/17 03/11/19 History [Simbrinza 1%-0.2% Eye Drops] Vit C/E/Zn/Coppr/Lutein/Zeaxan 1 tab PO BID 12/03/17 03/11/19 History [Preservision Areds 2 Softgel] Ferrous Sulfate [Feosol] 325 mg PO DAILY 01/11/18 03/11/19 History Ammonium Lactate Cream [Lac-Hydrin 1 applic TOPICAL BID 02/10/18 03/11/19 History 12% Cream] Cholecalciferol (Vitamin D3) 2,000 unit PO DAILY 02/10/18 03/11/19 History [Vitamin D3] Isosorbide Mononitrate ER [Imdur] 60 mg PO DAILY 02/10/18 03/11/19 History Wheat Dextrin [Benefiber] 1 packet PO BID 02/10/18 03/11/19 History Midodrine [ProAmatine] 10 mg PO TID 04/10/18 03/11/19 History Rivaroxaban [Xarelto] 10 mg PO DAILY 04/10/18 03/11/19 History Potassium Chloride ER [K-Dur 10] 50 meq PO QAM 06/02/18 03/11/19 History Metoprolol Tartrate [Lopressor] 25 mg PO DAILY@1500 06/15/18 03/11/19 History Metoprolol Tartrate [Lopressor] 50 mg PO BID@0700,2300 09/18/18 03/11/19 History Ondansetron [Zofran] 4 mg PO Q8HR PRN 09/18/18 03/11/19 History traMADol HCL [Ultram] 50 mg PO TID@0800,1600,2300 01/04/19 03/11/19 History Metolazone [Zaroxolyn] 5 mg PO DAILY PRN 03/11/19 03/11/19 History Torsemide [Demadex] 20 mg PO DAILY 03/11/19 03/11/19 History Allergies Allergy/AdvReac Type Severity Reaction Status Date / Time atorvastatin calcium Allergy Unknown Verified 03/11/19 12:47 [From Lipitor] codeine Allergy Unknown Verified 03/11/19 12:47 [From Tylenol-Codeine #3] hydrocodone AdvReac Vomiting Verified 03/11/19 12:47 Physical Exam Vitals: Vital Signs Temp Pulse Pulse Resp BP BP Pulse Ox 03/12/19 08:19 97.4 F L 78 19 101/67 100 03/12/19 08:00 78 19 03/12/19 04:00 97.9 F 90 18 94/56 98 03/12/19 00:00 98.0 F 91 17 102/68 97 03/11/19 20:00 97.7 F 84 18 110/74 100 03/11/19 16:00 100 20 03/11/19 15:35 97.5 F L 100 20 112/77 03/11/19 14:36 87 18 109/72 98 03/11/19 11:26 20 03/11/19 11:24 98.3 F 90 18 126/62 100 Intake and Output 03/11/19 03/12/19 03/12/19 22:59 06:59 14:59 Output Total 500 950 Balance -500 -950 Output: Urine 500 950 Other: Voiding Method Toilet Toilet Toilet Diaper Diaper Diaper Incontinent Incontinent Incontinent # Voids 1 2 # Bowel Movements 0 Weight 77.6 kg Results - Lab Results Most recent lab results Calcium 9.7 mg/dL (8.4-10.2) 03/12/19 06:09 03/11/19 11:35 03/12/19 06:09 Assessment and Plan Plan: Assessment: 1. Chronic kidney disease stage IV secondary to cardiorenal syndrome with baseline creatinine in the range of 2.7-3. 2. Dyspnea secondary to volume overload. 3. Systolic CHF ejection fraction of 30-35% with severe mitral and tricuspid regurgitation. 4. Moderate pulmonary hypertension. 5. Chronic hypotension maintained on midodrine. 6. Chronic kidney disease mineral bone disease maintained on calcitriol. 7. Metabolic acidosis secondary to chronic kidney disease. Plan: I did change Lasix to 80 mg IV twice daily. Can likely be transitioned over to oral diuretics tomorrow. Low-salt diet and 1500 mL fluid restriction. Avoid nephrotoxins. Continue to monitor renal function and urine output. No urgent need for renal replacement therapy at this time. Monitor bicarb. Thank you for the consultation. I will continue to follow the patient with you during her hospital stay.
[2019-03-12] MEDS: AMMONIUM LACTATE 12% CREAM 140 GM TUBE TOPICAL SCH ×2 (10:52→21:37)
[2019-03-12 11:11] LABS: Glucose,Whole Blood 111 mg/dL (75-99)
[2019-03-12 14:54] VITALS: BMI 31.3
--- NOTE | 2019-03-12 15:04 | P.PN ---
Subjective Progress Note Date: 03/12/19 This 84-year-old lady who was admitted yesterday with the congestive heart failure exacerbation due to diet noncompliance over the weekend is doing much better today she is been seen by Dr. Ang and who recommended to increase the diuresis over next 24 hours and then changed to oral and reassess the patient prior to discharge in next 24-48 hours. Patient was also referred to cardiology who recommended to continue current cardiac medications along with diuresis and will repeat echocardiogram with Doppler studies in the morning. Clinically patient is improving significantly states that she is back to her baseline but she would like to stay in the hospital for a day or 2 to get rid of extra fluid. Patient was very adamant in refusing hemodialysis that was offered by the supervisor [employer] in the past and I talked to the patient relates yesterday and she refused again. She is DNR/DNI per her request. Patient denies chest pain, palpitation, headache, dizziness, fever, chills, nausea, vomiting, diarrhea and denies rest of the review of system. Objective - Vital Signs Vital signs: Vital Signs Temp 97.6 F 03/12/19 11:39 Pulse 71 03/12/19 11:40 Resp 19 03/12/19 11:40 BP 100/67 03/12/19 11:39 Pulse Ox 96 03/12/19 11:39 Intake & Output 03/11/19 03/12/19 03/12/19 18:59 06:59 18:59 Intake Total 210 Output Total 643 582 2125 Balance -700 -950 -890 Weight 79.7 kg 77.6 kg 77.6 kg Intake: IV 10 Invasive Line 1 10 Oral 200 Output: Urine 549 908 1778 Other: Voiding Method Toilet Toilet Toilet Diaper Diaper Diaper Incontinent Incontinent Incontinent # Voids 1 2 3 # Bowel Movements 0 - Constitutional General appearance: Present: cooperative, no acute distress - Neck Neck: Present: normal ROM. Absent: lymphadenopathy, rigidity, thyromegaly - Respiratory Respiratory: bilateral: diminished, rales (Bilateral basal.), negative: rhonchi, wheezing - Cardiovascular Rhythm: irregularly irregular Heart sounds: normal: S1, S2 Abnormal Heart Sounds: Present: systolic murmur - Gastrointestinal General gastrointestinal: Present: normal bowel sounds, soft. Absent: distended, rigid, tenderness - Psychiatric Psychiatric: Present: A&O x's 3, appropriate affect - Allied health notes Allied health notes reviewed: nursing - Labs CBC & Chem 7: 03/11/19 11:35 03/12/19 06:09 Labs: Abnormal Lab Results - Last 24 Hours (Table) 03/11/19 03/11/19 03/12/19 Range/Units 17:09 20:26 05:52 Carbon Dioxide (22-30) mmol/L BUN (7-17) mg/dL Creatinine (0.52-1.04) mg/dL POC Glucose (mg/dL) 123 H 136 H 103 H (75-99) mg/dL 03/12/19 03/12/19 Range/Units 06:09 11:09 Carbon Dioxide 19 L (22-30) mmol/L BUN 64 H (7-17) mg/dL Creatinine 3.08 H (0.52-1.04) mg/dL POC Glucose (mg/dL) 111 H (75-99) mg/dL Assessment and Plan (1) Congestive heart failure (CHF) Current Visit: Yes Status: Acute Priority: High Code(s): I50.9 - HEART FAILURE, UNSPECIFIED SNOMED Code(s): 23568950 (2) CKD (chronic kidney disease) stage 4, GFR 15-29 ml/min Current Visit: Yes Status: Acute Priority: High Code(s): N18.4 - CHRONIC KIDNEY DISEASE, STAGE 4 (SEVERE) SNOMED Code(s): 625500275 (3) CAD (coronary artery disease) Current Visit: Yes Status: Chronic Priority: Medium Code(s): I25.10 - ATHSCL HEART DISEASE OF [place] CORONARY ARTERY W/O ANG PCTRS SNOMED Code(s): 34469652 (4) Afib Current Visit: Yes Status: Chronic Priority: High Code(s): I48.91 - UNSPECIFIED ATRIAL FIBRILLATION SNOMED Code(s): 57215827 (5) Diabetes mellitus Current Visit: Yes Status: Chronic Priority: Medium Code(s): E11.9 - TYPE 2 DIABETES MELLITUS WITHOUT COMPLICATIONS SNOMED Code(s): 71614639 (6) Hypertension Current Visit: No Status: Acute Priority: Medium Code(s): I10 - ESSENTIAL (PRIMARY) HYPERTENSION SNOMED Code(s): 46520980 (7) GERD (gastroesophageal reflux disease) Current Visit: Yes Status: Chronic Priority: Medium Code(s): K21.9 - GASTRO-ESOPHAGEAL REFLUX DISEASE WITHOUT ESOPHAGITIS SNOMED Code(s): 179331009 (8) Glaucoma Current Visit: No Status: Chronic Priority: Medium Code(s): H40.9 - UNSPECIFIED GLAUCOMA SNOMED Code(s): 86956876 (9) Macular degeneration (senile) of retina, unspecified Current Visit: No Status: Chronic Priority: Medium Code(s): H35.30 - UNSPECIFIED MACULAR DEGENERATION SNOMED Code(s): 803839971 Plan: Patient daughter was present and per patient's verbal consent she was updated and all questions were answered. I will continue current management as patient is slowly improving. Patient was given diet counseling which was not well taken by the patient but she verbalizes understanding of head and stated that she got to misbehave once in a while. Patient was advised that the diuretics if she is taking twice a day at home she has to take 6:00 in the morning and 2 PM in the afternoon to avoid rushing to the bathroom all night long and patient verbalizes understanding. We'll continue to monitor closely while she is in the hospital. If remains stable and continued to improve then patient will be discharged home with continuation of her home healthcare services in next 24-48 hours Time with Patient: Less than 30
[2019-03-12] MEDS: METOPROLOL TARTRATE 25 MG TAB PO SCH (15:11)
--- NOTE | 2019-03-12 15:53 | ECHOF ---
Referral Reason:chf MEASUREMENTS -------- HEIGHT: 157.5 cm WEIGHT: 77.1 kg BP: IVSd: 0.9 cm (0.6 - 1.1) LVIDd: 4.8 cm (3.9 - 5.3) LVPWd: 1.1 cm (0.6 - 1.1) IVSs: 1.1 cm LVIDs: 4.7 cm LVPWs: 0.8 cm LA Diam: 5.6 cm (2.7 - 3.8) RVIDd: 3.3 cm (< 3.3) LAESV Index (A-L): 77.13 ml/m Ao Diam: 1.9 cm (2.0 - 3.7) LA Diam: 4.9 cm (2.7 - 3.8) EPSS: 2.8 cm MV E Cortez: 1.01 m/s MV DecT: 148 ms MV A [place]: 0.46 m/s MV E/A Ratio: 2.19 RAP: 15.00 mmHg RVSP: 59.39 mmHg MV EF SLOPE: 70.71 mm/s (70 - 150) MV EXCURSION: 14.58 mm (> 18.000) FINDINGS -------- Sinus rhythm. This was a technically good study. The left ventricular size is normal. Left ventricular wall thickness is normal. Overall left vent ricular systolic function is moderately impaired with, an EF between 35 - 40 %. The right ventricle is normal in size. The left atrium is markedly dilated. LA is severely dilated >40 ml/m2 The right atrial size is normal. There is doming of the aortic valve leaflets. There is mild aortic valve sclerosis. The mitral valve leaflets are mildly thickened. Mild mitral annular calcification present. Modera ur-hu-[id number] mitral regurgitation is present. Moderate to severe tricuspid regurgitation present. There is moderate pulmonary hypertension. The right ventricular systolic pressure, as measured by Doppler, is 59.39mmHg. Trace/mild (physiologic) pulmonic regurgitation. The aortic root size is normal. There is no pericardial effusion. Small Pleural Effusion. CONCLUSIONS -------- 1. The left ventricular size is normal. 2. Left ventricular wall thickness is normal. 3. The right ventricle is normal in size. 4. The left atrium is markedly dilated. 5. LA is severely dilated >40 ml/m2 6. The right atrial size is normal. 7. There is doming of the aortic valve leaflets. 8. There is mild aortic valve sclerosis. 9. The mitral valve leaflets are mildly thickened. 10. Mild mitral annular calcification present. 11. [id number] mitral regurgitation is present. 12. Moderate to severe tricuspid regurgitation present. 13. There is moderate pulmonary hypertension. 14. The right ventricular systolic pressure, as measured by Doppler, is 59.39mmHg. 15. Trace/mild (physiologic) pulmonic regurgitation. 16. The aortic root size is normal. 17. There is no pericardial effusion. 18. Small Pleural Effusion. FORMS EXAMINER: Tahsa Harley RDCS
[2019-03-12 17:16] LABS: Glucose,Whole Blood 129 mg/dL (75-99)
[2019-03-12 20:58] LABS: Glucose,Whole Blood 114 mg/dL (75-99)
[2019-03-12] MEDS: FUROSEMIDE 10 MG/ML 10 ML VIAL IV SCH (21:27)
[2019-03-13] MEDS: ACETAMINOPHEN TAB 325 MG TAB PO PRN (03:17)
[2019-03-13 06:11] LABS: Glucose,Whole Blood 104 mg/dL (75-99)
[2019-03-13] MEDS: INSULIN ASPART (NovoLOG) 100 UNIT/ML VIAL SQ SCH ×4 (06:23→21:52)
[2019-03-13] MEDS: MIDODRINE 5 MG TAB PO SCH ×3 (06:25→16:26)
[2019-03-13] MEDS: PANTOPRAZOLE 40 MG TABLET PO SCH (06:25)
[2019-03-13] MEDS: METOPROLOL TARTRATE 50 MG TAB PO SCH ×2 (06:25→21:50)
[2019-03-13 07:16] LABS: Calcium 9.8 mg/dL (8.4-10.2); Magnesium 1.8 mg/dL (1.6-2.3); Potassium 3.4 mmol/L (3.5-5.1)
[2019-03-13] MEDS ORDERED: Potassium Replacement Protocol 1 EACH MISC MISCELLANE PRN (07:45)
[2019-03-13] MEDS ORDERED: FERROUS SULFATE 325 MG TAB PO SCH (09:00)
[2019-03-13] MEDS: FUROSEMIDE 10 MG/ML 10 ML VIAL IV SCH (10:20)
[2019-03-13] MEDS: CALCIUM POLYCARBOPHIL 625 MG TAB PO SCH ×2 (10:21→21:51)
[2019-03-13] MEDS: traMADol 50 MG TAB PO SCH ×3 (10:21→23:27)
[2019-03-13] MEDS: CALCITRIOL 0.25 MCG CAP PO SCH (10:22)
[2019-03-13] MEDS: ALLOPURINOL 100 MG TAB PO SCH (10:23)
[2019-03-13] MEDS: CHOLECALCIFEROL 1,000 UNIT TAB PO SCH (10:23)
[2019-03-13] MEDS: DOCUSATE 100 MG CAP PO SCH ×2 (10:23→21:51)
[2019-03-13] MEDS: FERROUS SULFATE 325 MG TAB PO SCH (10:24)
[2019-03-13] MEDS: ISOSORBIDE MONONITRATE ER 60 MG TAB.ER.24H PO SCH (10:24)
[2019-03-13] MEDS: POTASSIUM CHLORIDE ER 10 MEQ TAB.ER.PRT PO SCH (10:25)
[2019-03-13] MEDS: ASPIRIN 81 MG PO SCH (10:25)
[2019-03-13] MEDS: RIVAROXABAN 10 MG TAB PO SCH (10:25)
[2019-03-13] MEDS: NON-FORMULARY DRUG (Brinzolamide/Brimonidine Tart [Simbrinza 1%-0.2% Eye Drops] 1 DROP) BOTH EYES SCH ×2 (10:30→21:54)
[2019-03-13] MEDS: AMMONIUM LACTATE 12% CREAM 140 GM TUBE TOPICAL SCH ×2 (10:32→21:55)
[2019-03-13] MEDS ORDERED: POTASSIUM CHLORIDE ER 20 MEQ TAB.ER PO STA (10:49)
--- NOTE | 2019-03-13 10:51 | P.PN ---
Subjective Patient is seen in follow-up for acute kidney injury on chronic kidney disease. Renal function stable. Edema better. She is nonoliguric. No chest pain or shortness of breath. Vital signs are stable. General: The patient appeared well nourished and normally developed. HEENT: Head exam is unremarkable. Neck is without jugular venous distension. LUNGS: Lungs are clear to auscultation and percussion. Breath sounds decreased. HEART: Rate and Rhythm are regular. First and second heart sounds normal. No murmurs, rubs or gallops. ABDOMEN: Abdominal exam reveals normal bowel sounds. Non-tender and non- distended. No evidence of peritonitis. EXTREMITITES: 1+ edema. Objective - Vital Signs Vital signs: Vital Signs Temp 97.4 F L 03/13/19 08:30 Pulse 75 03/13/19 08:30 Resp 18 03/13/19 08:30 BP 106/65 03/13/19 08:30 Pulse Ox 99 03/13/19 08:30 Intake & Output 03/12/19 03/13/19 03/13/19 18:59 06:59 18:59 Intake Total 340 360 Output Total 1900 500 500 Balance -1560 -500 -140 Weight 77.6 kg 75.4 kg Intake: IV 20 Invasive Line 1 20 Oral 320 360 Output: Urine 1900 500 500 Other: Voiding Method Toilet Toilet Diaper Diaper Incontinent Incontinent # Voids 3 - Labs CBC & Chem 7: 03/11/19 11:35 03/13/19 06:15 Labs: Abnormal Lab Results - Last 24 Hours (Table) 03/12/19 03/12/19 03/12/19 Range/Units 11:09 17:13 20:57 Potassium (3.5-5.1) mmol/L Carbon Dioxide (22-30) mmol/L BUN (7-17) mg/dL Creatinine (0.52-1.04) mg/dL POC Glucose (mg/dL) 111 H 129 H 114 H (75-99) mg/dL 03/13/19 03/13/19 Range/Units 06:09 06:15 Potassium 3.4 L (3.5-5.1) mmol/L Carbon Dioxide 21 L (22-30) mmol/L BUN 69 H (7-17) mg/dL Creatinine 3.07 H (0.52-1.04) mg/dL POC Glucose (mg/dL) 104 H (75-99) mg/dL Assessment and Plan Plan: Assessment: 1. Chronic kidney disease stage IV secondary to cardiorenal syndrome with baseline creatinine in the range of 2.7-3. Renal function stable. 2. Dyspnea secondary to volume overload. Better. 3. Systolic CHF ejection fraction of 30-35% with severe mitral and tricuspid regurgitation. 4. Moderate pulmonary hypertension. 5. Chronic hypotension maintained on midodrine. 6. Chronic kidney disease mineral bone disease maintained on calcitriol. 7. Metabolic acidosis secondary to chronic kidney disease. Better. 8. Hypokalemia secondary to diuresis. Plan: Discontinue IV Lasix. Start torsemide 20 mg orally twice daily. Maintain potassium supplementation. I will give her an additional 20 mg once today. Low-salt diet and 1500 mL fluid restriction. Avoid nephrotoxins. Continue to monitor renal function and urine output. No urgent need for renal replacement therapy at this time. Stable to be discharged home from nephrology standpoint. Follow up outpatient in 1 week. I advised the patient to monitor her weight closely at home and to call office if he notices more than 2 to 3 pound weight gain.
[2019-03-13 11:49] LABS: Glucose,Whole Blood 125 mg/dL (75-99)
--- NOTE | 2019-03-13 15:26 | P.PN ---
Subjective Progress Note Date: 03/13/19 This is a pleasant 84-year-old female who follows with Dr. May in the office, she has a past medical history significant for chronic atrial fibrillation, systolic congestive heart failure, valvular heart disease, history of DVT, chronic systolic congestive heart failure, diabetes, hypertension, renal failure, hyperlipidemia, presents to the hospital with symptoms of shortness of breath and weight gain. Overall the patient states she's been doing fairly well, she's been doing a lot of traveling this year and overall has not had many exacerbations of her congestive cardiac failure. She has noticed recently to be little more short of breath and also her weight has gone up. Her daughter spoke with her optometry teacher and they recommended that she come to the hospital for further evaluation and treatment. Her chest x-ray on admission showed cardiomegaly with tiny right pleural effusion improved from prior. EKG shows atrial fibrillation with a controlled ventricular response. Blood pressure 100/60 with a heart rate in the 70s, 100% on room air. White blood cell count 10.0, hemoglobin 10.5, platelet count 178. Sodium 139, potassium 3.8, BUN 64 and creatinine 3.0. Troponin 0.012, BNP level 17,500. At the time of my examination this morning, the patient is sitting up in a chair at bedside, feet elevated, daughter at bedside. Overall she does state that she is feeling amarjit r. Her weight is down 2 kg. 03/13/2019 Patient was seen and examined this morning, sitting up in the chair at bedside, diuresed well through the night last night.Blood pressure 106/60 with a heart rate in the 70s, 99% on room air.sodium 142, potassium 3.4, BUN 69 and creatinine 3.0. Magnesium 1.8.Continues to be on IV Lasix at this time. Objective - Vital Signs Vital signs: Vital Signs Temp 97.3 F L 03/13/19 12:00 Pulse 75 03/13/19 12:00 Resp 18 03/13/19 12:00 BP 106/61 03/13/19 12:00 Pulse Ox 99 03/13/19 12:00 Intake & Output 03/12/19 03/13/19 03/13/19 18:59 06:59 18:59 Intake Total 340 600 Output Total 1900 500 500 Balance -1560 -500 100 Weight 77.6 kg 75.4 kg Intake: IV 20 Invasive Line 1 20 Oral 320 600 Output: Urine 1900 500 500 Other: Voiding Method Toilet Toilet Toilet Diaper Diaper Diaper Incontinent Incontinent Incontinent # Voids 3 - Exam PHYSICAL EXAMINATION: GENERAL: 84 year old female in no acute distress at the time of my examination HEENT: Head is atraumatic, normocephalic. Pupils equal, round. Sclera anicteric. Conjunctiva are clear. Mucous membranes of the mouth are moist. Neck is supple. There is no elevated jugular venous pressure. No carotid b ruit is heard. HEART EXAMINATION: Heart S1 and S2 irregularly irregular a systolic murmur is heard CHEST EXAMINATION: Lungs are clear with improvement in air entry to bilateral bases. ABDOMEN: Soft, nontender. Bowel sounds are heard. No organomegaly noted. EXTREMITIES: 2+ peripheral pulses with 1+ edema to the right lower extremity, trace edema to the left lower extremity ,no calf tenderness noted. NEUROLOGIC patient is awake, alert and oriented 3 . . - Labs CBC & Chem 7: 03/11/19 11:35 03/13/19 06:15 Labs: Abnormal Lab Results - Last 24 Hours (Table) 03/12/19 03/12/19 03/13/19 Range/Units 17:13 20:57 06:09 Potassium (3.5-5.1) mmol/L Carbon Dioxide (22-30) mmol/L BUN (7-17) mg/dL Creatinine (0.52-1.04) mg/dL POC Glucose (mg/dL) 129 H 114 H 104 H (75-99) mg/dL 03/13/19 03/13/19 Range/Units 06:15 11:45 Potassium 3.4 L (3.5-5.1) mmol/L Carbon Dioxide 21 L (22-30) mmol/L BUN 69 H (7-17) mg/dL Creatinine 3.07 H (0.52-1.04) mg/dL POC Glucose (mg/dL) 125 H (75-99) mg/dL Assessment and Plan Plan: Assessment and plan #1 systolic congestive heart failure acute on chronic #2 acute on chronic renal failure #3 history of DVT with prior [place] filter #4 diabetes #5 hypertension #6 hyperlipidemia #7 chronic persistent atrial fibrillation, on Xarelto for anticoagulation #8 GERD Plan We will continue with current dose of IV Lasix, check lytes BUN and creatinine in the morning, plan for possible discharge home tomorrow if stable. DNP note has been reviewed, I agree with a documented findings and plan of care. Patient was seen and examined.
[2019-03-13] MEDS: METOPROLOL TARTRATE 25 MG TAB PO SCH (16:26)
--- NOTE | 2019-03-13 16:40 | P.PN ---
Subjective Progress Note Date: 03/13/19 Principal diagnosis: CHF exacerbation patient was seen and examined. No acute events overnight. Patient reports considerable improvement in her breathing since admission. States that she is almost back to baseline. She want to go home. She denies any chest pain or palpitations. No nausea or vomiting. No fever or chills. Objective - Vital Signs Vital signs: Vital Signs Temp 97.3 F L 03/13/19 12:00 Pulse 75 03/13/19 12:00 Resp 18 03/13/19 12:00 BP 106/61 03/13/19 12:00 Pulse Ox 99 03/13/19 12:00 Intake & Output 03/12/19 03/13/19 03/13/19 18:59 06:59 18:59 Intake Total 340 600 Output Total 1900 500 500 Balance -1560 -500 100 Weight 77.6 kg 75.4 kg Intake: IV 20 Invasive Line 1 20 Oral 320 600 Output: Urine 1900 500 500 Other: Voiding Method Toilet Toilet Toilet Diaper Diaper Diaper Incontinent Incontinent Incontinent # Voids 3 - Exam General: [non toxic], [no distress], [appears at stated age] Derm: [warm], [dry] Head: [atraumatic], [normocephalic], [symmetric] Eyes: [EOMI], [no lid lag], [anicteric sclera] Mouth: [no lip lesion], [mucus membranes moist] Cardiovascular: [S1S2 reg], [irregularly regular with systolic murmur], [positive DP pulse bilateral], Lungs: [decreased breath sounds bilateral], [no rhonchi, no rales] , [no accessory muscle use] Abdominal: [soft], [ nontender to palpation], [no guarding], [no appreciable organomegaly] Ext: [no gross muscle atrophy], [1+ right lower extremity edema], [no contractures] Neuro: [ CN II-XI grossly intact], [no focal neuro deficits] Psych: [Alert], [oriented], [appropriate affect] - Labs CBC & Chem 7: 03/11/19 11:35 03/13/19 06:15 Labs: Abnormal Lab Results - Last 24 Hours (Table) 03/12/19 03/12/19 03/13/19 Range/Units 17:13 20:57 06:09 Potassium (3.5-5.1) mmol/L Carbon Dioxide (22-30) mmol/L BUN (7-17) mg/dL Creatinine (0.52-1.04) mg/dL POC Glucose (mg/dL) 129 H 114 H 104 H (75-99) mg/dL 03/13/19 03/13/19 Range/Units 06:15 11:45 Potassium 3.4 L (3.5-5.1) mmol/L Carbon Dioxide 21 L (22-30) mmol/L BUN 69 H (7-17) mg/dL Creatinine 3.07 H (0.52-1.04) mg/dL POC Glucose (mg/dL) 125 H (75-99) mg/dL Assessment and Plan Assessment: Assessment and Plan Acute on chronic systolic CHF exacerbation Chronic kidney disease Coronary artery disease Atrial fibrillation Diabetes mellitus Hypertension GERD Plans: Plans to stop IV Lasix from this morning and start the patient on torsemide 20 mg by mouth twice a day. We will monitor her respiratory status overnight with plans on possible DC if improved. Continue beta vilma. Follow cardiology recommendations. Strict intake and output. Daily weights. Creatinine 3.0-3.07. Stable. Plans: Needs outpatient follow-up with n ephrology. Plans: Continue aspirin and beta vilma. Plans: Continue beta vilma. Xarelto for anticoagulation. Plans: Insulin sliding scale. Regular Accu-Cheks. Hypoglycemic precautions. Plans: Continue Imdur, metoprolol. Monitor vitals, adjust medications as necessary. Plans: Continue Protonix. Transitioned from IV to oral diuretic. Monitor overnight. Likely DC tomorrow.
[2019-03-13 16:53] LABS: Glucose,Whole Blood 128 mg/dL (75-99)
[2019-03-13 20:24] LABS: Glucose,Whole Blood 150 mg/dL (75-99)
[2019-03-13] MEDS: TORSEMIDE 20 MG TAB PO SCH (21:51)
[2019-03-14] MEDS: ACETAMINOPHEN TAB 325 MG TAB PO PRN (04:26)
[2019-03-14 06:11] LABS: Glucose,Whole Blood 106 mg/dL (75-99)
[2019-03-14] MEDS: PANTOPRAZOLE 40 MG TABLET PO SCH (06:56)
[2019-03-14] MEDS: METOPROLOL TARTRATE 50 MG TAB PO SCH (06:56)
[2019-03-14] MEDS: MIDODRINE 5 MG TAB PO SCH ×2 (06:57→12:57)
[2019-03-14] MEDS: INSULIN ASPART (NovoLOG) 100 UNIT/ML VIAL SQ SCH ×2 (06:59→12:44)
[2019-03-14 07:19] LABS: Calcium 9.4 mg/dL (8.4-10.2); Magnesium 1.8 mg/dL (1.6-2.3); Potassium 3.2 mmol/L (3.5-5.1)
[2019-03-14] MEDS: ASPIRIN 81 MG PO SCH (08:24)
[2019-03-14] MEDS: POTASSIUM CHLORIDE ER 10 MEQ TAB.ER.PRT PO SCH (08:24)
[2019-03-14] MEDS: FERROUS SULFATE 325 MG TAB PO SCH (08:24)
[2019-03-14] MEDS: RIVAROXABAN 10 MG TAB PO SCH (08:24)
[2019-03-14] MEDS: CHOLECALCIFEROL 1,000 UNIT TAB PO SCH (08:24)
[2019-03-14] MEDS: traMADol 50 MG TAB PO SCH (08:25)
[2019-03-14] MEDS: ALLOPURINOL 100 MG TAB PO SCH (08:25)
[2019-03-14] MEDS: AMMONIUM LACTATE 12% CREAM 140 GM TUBE TOPICAL SCH (08:26)
[2019-03-14] MEDS: CALCIUM POLYCARBOPHIL 625 MG TAB PO SCH (08:27)
[2019-03-14] MEDS: ISOSORBIDE MONONITRATE ER 60 MG TAB.ER.24H PO SCH (08:28)
[2019-03-14] MEDS: DOCUSATE 100 MG CAP PO SCH (08:28)
[2019-03-14] MEDS: NON-FORMULARY DRUG (Brinzolamide/Brimonidine Tart [Simbrinza 1%-0.2% Eye Drops] 1 DROP) BOTH EYES SCH (08:31)
[2019-03-14] MEDS: TORSEMIDE 20 MG TAB PO SCH (09:48)
[2019-03-14] MEDS ORDERED: POTASSIUM CHLORIDE ER 20 MEQ TAB.ER PO STA (10:39)
[2019-03-14 11:12] VITALS: TEMP 96.9
[2019-03-14 11:31] LABS: Glucose,Whole Blood 127 mg/dL (75-99)
--- NOTE | 2019-03-14 11:32 | P.PN ---
Subjective Patient is seen in follow-up for acute kidney injury on chronic kidney disease. Renal function stable. Edema better. She is nonoliguric. No chest pain or shortness of breath. No active complaints at this time. Vital signs are stable. General: The patient appeared well nourished and normally developed. HEENT: Head exam is unremarkable. Neck is without jugular venous distension. LUNGS: Lungs are clear to auscultation and percussion. Breath sounds decreased. HEART: Rate and Rhythm are regular. First and second heart sounds normal. No murmurs, rubs or gallops. ABDOMEN: Abdominal exam reveals normal bowel sounds. Non-tender and non-diste nded. No evidence of peritonitis. EXTREMITITES: 1+ edema. Objective - Vital Signs Vital signs: Vital Signs Temp 96.9 F L 03/14/19 08:00 Pulse 60 03/14/19 08:00 Resp 18 03/14/19 08:00 BP 99/54 03/14/19 08:00 Pulse Ox 98 03/14/19 08:00 Intake & Output 03/13/19 03/14/19 03/14/19 18:59 06:59 18:59 Intake Total 840 120 240 Output Total 1200 250 Balance -360 -130 240 Weight 74 kg Intake: Oral 840 120 240 Output: Urine 1200 250 Other: Voiding Method Toilet Toilet Toilet Diaper Diaper Diaper Incontinent Incontinent Incontinent # Voids 2 1 - Labs CBC & Chem 7: 03/11/19 11:35 03/14/19 06:52 Labs: Abnormal Lab Results - Last 24 Hours (Table) 03/13/19 03/13/19 03/13/19 Range/Units 11:45 16:46 20:23 Potassium (3.5-5.1) mmol/L BUN (7-17) mg/dL Creatinine (0.52-1.04) mg/dL Glucose (74-99) mg/dL POC Glucose (mg/dL) 125 H 128 H 150 H (75-99) mg/dL 03/14/19 03/14/19 Range/Units 06:10 06:52 Potassium 3.2 L (3.5-5.1) mmol/L BUN 76 H (7-17) mg/dL Creatinine 2.96 H (0.52-1.04) mg/dL Glucose 105 H (74-99) mg/dL POC Glucose (mg/dL) 106 H (75-99) mg/dL Assessment and Plan Plan: Assessment: 1. Chronic kidney disease stage IV secondary to cardiorenal syndrome with baseline creatinine in the range of 2.7-3. Renal function stable. 2. Dyspnea secondary to volume overload. Better. 3. Systolic CHF ejection fraction of 30-35% with severe mitral and tricuspid regurgitation. 4. Moderate pulmonary hypertension. 5. Chronic hypotension maintained on midodrine. 6. Chronic kidney disease mineral bone disease maintained on calcitriol. 7. Metabolic acidosis secondary to chronic kidney disease. Better. 8. Hypokalemia secondary to diuresis. Plan: Maintain torsemide 20 mg orally twice daily. Maintain potassium supplementation. I will give her an additional 40 mg once today. Low-salt diet and 1500 mL fluid restriction. Avoid nephrotoxins. Continue to monitor renal function and urine output. No urgent need for renal replacement therapy at this time. Stable to be discharged home from nephrology standpoint. Follow up outpatient in 1 week. I advised the patient to monitor her weight closely at home and to call office if he notices more than 2 to 3 pound weight gain. BMP to be checked 2-3 days postdischarge. I have also advised the patient to i ncrease her home potassium supplementation to 60 mEq daily.
--- NOTE | 2019-03-14 13:31 | P.PN ---
Subjective Progress Note Date: 03/14/19 This is a pleasant 84-year-old female who follows with Dr. May in the office, she has a past medical history significant for chronic atrial fibrillation, systolic congestive heart failure, valvular heart disease, history of DVT, chronic systolic congestive heart failure, diabetes, hypertension, renal failure, hyperlipidemia, presents to the hospital with symptoms of shortness of breath and weight gain. Overall the patient states she's been doing fairly well, she's been doing a lot of traveling this year and overall has not had many exacerbations of her congestive cardiac failure. She has noticed recently to be little more short of breath and also her weight has gone up. Her daughter spoke with her deputy sheriff [id number] handler and they recommended that she come to the hospital for further evaluation and treatment. Her chest x-ray on admission showed cardiomegaly with tiny right pleural effusion improved from prior. EKG shows atrial fibrillation with a controlled ventricular response. Blood pressure 100/60 with a heart rate in the 70s, 100% on room air. White blood cell count 10.0, hemoglobin 10.5, platelet count 178. Sodium 139, potassium 3.8, BUN 64 and creatinine 3.0. Troponin 0.012, BNP level 17,500. At the time of my examination this morning, the patient is sitting up in a chair at bedside, feet elevated, daughter at bedside. Overall she does state that she is feeling amarjit r. Her weight is down 2 kg. 03/13/2019 Patient was seen and examined this morning, sitting up in the chair at bedside, diuresed well through the night last night.Blood pressure 106/60 with a heart rate in the 70s, 99% on room air.sodium 142, potassium 3.4, BUN 69 and creatinine 3.0. Magnesium 1.8.Continues to be on IV Lasix at this time. 03/14/2019 Patient was seen and examined this morning, again diuresed well through the night last night. Hemodynamically stable and feeling well. Awaiting discharge home today. Objective - Vital Signs Vital signs: Vital Signs Temp 96.9 F L 03/14/19 08:00 Pulse 60 03/14/19 08:00 Resp 18 03/14/19 08:00 BP 99/54 03/14/19 08:00 Pulse Ox 98 03/14/19 08:00 Intake & Output 08/0703/14/19 03/14/19 18:59 06:59 18:59 Intake Total 840 120 240 Output Total 1200 250 Balance -360 -130 240 Weight 74 kg Intake: Oral 840 120 240 Output: Urine 1200 250 Other: Voiding Method Toilet Toilet Toilet Diaper Diaper Diaper Incontinent Incontinent Incontinent # Voids 2 1 - Exam PHYSICAL EXAMINATION: GENERAL: 84 year old female in no acute distress at the time of my examination HEENT: Head is atraumatic, normocephalic. Pupils equal, round. Sclera anicteric. Conjunctiva are clear. Mucous membranes of the mouth are moist. Neck is supple. There is no elevated jugular venous pressure. No carotid bruit is heard. HEART EXAMINATION: Heart S1 and S2 irregularly irregular a systolic murmur is heard CHEST EXAMINATION: Lungs are clear with improvement in air entry to bilateral bases. ABDOMEN: Soft, nontender. Bowel sounds are heard. No organomegaly noted. EXTREMITIES: 2+ peripheral pulses with trace edema to the right lower extremity, no edema to the left lower extremity ,no calf tenderness noted. NEUROLOGIC patient is awake, alert and oriented 3 . . - Labs CBC & Chem 7: 03/11/19 11:35 03/14/19 06:52 Labs: Abnormal Lab Results - Last 24 Hours (Table) 03/13/19 03/13/19 03/14/19 Range/Units 16:46 20:23 06:10 Potassium (3.5-5.1) mmol/L BUN (7-17) mg/dL Creatinine (0.52-1.04) mg/dL Glucose (74-99) mg/dL POC Glucose (mg/dL) 128 H 150 H 106 H (75-99) mg/dL 03/14/19 03/14/19 Range/Units 06:52 11:29 Potassium 3.2 L (3.5-5.1) mmol/L BUN 76 H (7-17) mg/dL Creatinine 2.96 H (0.52-1.04) mg/dL Glucose 105 H (74-99) mg/dL POC Glucose (mg/dL) 127 H (75-99) mg/dL Assessment and Plan Plan: Assessment and plan #1 systolic congestive heart failure acute on chronic #2 acute on chronic renal failure #3 history of DVT with prior Jenkins filter #4 diabetes #5 hypertension #6 hyperlipidemia #7 chronic persistent atrial fibrillation, on Xarelto for anticoagulation #8 GERD Plan Patient has been changed over to oral diuretics. From our perspective she may b e able to be discharged home today. We'll make her a follow-up appointment to see Dr. May in the office post discharge. DNP note has been reviewed, I agree with a documented findings and plan of care. Patient was seen and examined.
[2019-03-14 14:28] VITALS: BP 109/66; PULSE 72; RESP 16
== END 2019-03-14 14:40 | disposition home health service (06) | DRG 291 ==
LOC: EC 11:22 → 3SCARD 13:51
PROVIDERS: ADMIT Internal Medicine; ATTEND Internal Medicine
DX: I13.0 Hypertensive heart and chronic kidney disease with heart failure and stage 1 through stage 4 chronic kidney disease, or unspecified chronic kidney disease (principal); I50.23 Acute on chronic systolic (congestive) heart failure; I48.1 Persistent atrial fibrillation; N17.9 Acute kidney failure, unspecified; N18.4 Chronic kidney disease, stage 4 (severe); E87.2 Acidosis; H54.8 Legal blindness, as defined in USA; I25.10 Atherosclerotic heart disease of native coronary artery without angina pectoris; I95.89 Other hypotension; E78.5 Hyperlipidemia, unspecified; E87.6 Hypokalemia; E11.22 Type 2 diabetes mellitus with diabetic chronic kidney disease; I27.20 Pulmonary hypertension, unspecified; Z96.642 Presence of left artificial hip joint; I08.1 Rheumatic disorders of both mitral and tricuspid valves; H40.9 Unspecified glaucoma; M89.8X9 Other specified disorders of bone, unspecified site; Z66 Do not resuscitate; K21.9 Gastro-esophageal reflux disease without esophagitis; T50.2X5A Adverse effect of carbonic-anhydrase inhibitors, benzothiadiazides and other diuretics, initial encounter; Z79.01 Long term (current) use of anticoagulants; Z79.84 Long term (current) use of oral hypoglycemic drugs; Z79.899 Other long term (current) drug therapy; Z83.3 Family history of diabetes mellitus; Z86.718 Personal history of other venous thrombosis and embolism; Z87.891 Personal history of nicotine dependence; Z90.710 Acquired absence of both cervix and uterus; Z91.15 Patient's noncompliance with renal dialysis; Z88.8 Allergy status to other drugs, medicaments and biological substances; Z88.5 Allergy status to narcotic agent; Z90.49 Acquired absence of other specified parts of digestive tract; Z90.89 Acquired absence of other organs; Z86.19 Personal history of other infectious and parasitic diseases; Z98.890 Other specified postprocedural states
CPT/HCPCS: 36415; 71046; 80048; 80053; 81001; 83735; 83880; 84484; 85025; 85610; 85730; 93005; 93306; 96374; 99285

== ENCOUNTER 2019-09-30 12:15 | Inpatient (IN) | payer MEDICARE, BC ==
--- NOTE | 2019-09-30 12:53 | ED ---
General Adult HPI - General Chief complaint: Recheck/Abnormal Lab/Rx Stated complaint: kidney problem Time Seen by Provider: 09/30/19 12:27 Source: patient, RN notes reviewed Mode of arrival: wheelchair Limitations: no limitations - History of Present Illness Initial comments: This is a 84-year-old female presents emergency Department with chief complaint of abnormal labs. Patient states she had blood work drawn by Dr. his ALONOZ and received phone call stating that her kidney function was elevated. Patient does see a pathology manager Dr. Escobar and has been recommended to be on dialysis though she refuses. They have located her to have dialysis an emergent needs. Patient states she has had slight increase shortness of breath denies any chest pain, h eadache, dizziness, chest pain, fever or chills. She does have moderate leg swelling the right which is chronic for her. She does take Xarelto daily. - Related Data Home Medications Medication Instructions Recorded Confirmed Allopurinol [Zyloprim] 200 mg PO DAILY 01/22/14 05/14/19 Linagliptin [Tradjenta] 5 mg PO DAILY@1500 01/22/14 05/14/19 Omeprazole [PriLOSEC] 20 mg PO DAILY 01/22/14 05/14/19 Docusate Sodium [Stool Softener] 100 mg PO BID 02/22/14 05/14/19 Garlic 1 tab PO BID 02/22/14 05/14/19 Calcitriol 0.25 mcg PO SUTUTHSA 08/22/14 05/14/19 Brinzolamide/Brimonidine Tart 1 drop BOTH EYES BID 05/11/17 05/14/19 [Simbrinza 1%-0.2% Eye Drops] Vit C/E/Zn/Coppr/Lutein/Zeaxan 1 tab PO BID 12/03/17 05/14/19 [Preservision Areds 2 Softgel] Ferrous Sulfate [Feosol] 325 mg PO DAILY 01/11/18 05/14/19 Ammonium Lactate Cream [Lac-Hydrin 1 applic TOPICAL BID 02/10/18 05/14/19 12% Cream] Cholecalciferol (Vitamin D3) 2,000 unit PO DAILY 02/10/18 05/14/19 [Vitamin D3] Isosorbide Mononitrate ER [Imdur] 60 mg PO DAILY 02/10/18 05/14/19 Wheat Dextrin [Benefiber] 1 packet PO BID 02/10/18 05/14/19 Midodrine [ProAmatine] 5 mg PO TID 04/10/18 05/14/19 Rivaroxaban [Xarelto] 10 mg PO DAILY 04/10/18 05/14/19 Metoprolol Tartrate [Lopressor] 25 mg PO DAILY@1500 06/15/18 05/14/19 Metoprolol Tartrate [Lopressor] 50 mg PO BID@0700,2300 09/18/18 05/14/19 Ondansetron [Zofran] 4 mg PO Q8HR PRN 09/18/18 05/14/19 traMADol HCL [Ultram] 50 mg PO TID@0800,1600,2300 01/04/19 05/14/19 Metolazone [Zaroxolyn] 5 mg PO DAILY PRN 03/11/19 05/14/19 Potassium Chloride ER [K-Dur 10] 50 meq PO BID 04/02/19 05/14/19 Previous Rx's Medication Instructions Recorded Torsemide [Demadex] 20 mg PO BID #60 tab 03/14/19 Allergies Allergy/AdvReac Type Severity Reaction Status Date / Time atorvastatin calcium Allergy Unknown Verified 09/30/19 12:23 [From Lipitor] codeine Allergy Unknown Verified 09/30/19 12:23 [From Tylenol-Codeine #3] adhesive tape AdvReac Intermediate Unknown Verified 09/30/19 12:23 hydrocodone AdvReac Vomiting Verified 09/30/19 12:23 Review of Systems ROS Statement: Those systems with pertinent positive or pertinent negative responses have been documented in the HPI. ROS Other: All systems not noted in ROS Statement are negative. Past Medical History Past Medical History: Atrial Fibrillation, Coronary Artery Disease (CAD), Cancer, Heart Failure, Diabetes Mellitus, Deep Vein Thrombosis (DVT), Eye Disorder, GERD/Reflux, Hypertension, Renal Disease Additional Past Medical History / Comment(s): Macular Degeneration and glaucoma, gallstones, stage 4 kidney failure, hx Uterine & groin CA; WEARS BILAT THIGH HIGH HOSE, uses cane or walker, patient states she has "2 blood clots in right groin since 2003" family states now clot is "through the whole leg", CHF, rt hip bone and bone History of Any Multi-Drug Resistant Organisms: ESBL, VRE Date of last positivie culture/infection: 02/11/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 left hip replacement, LEFT breast biopsy, darcy filter rt leg, biopsy of right nostril, biopsy rt breast Past Anesthesia/Blood Transfusion Reactions: No Reported Reaction Past Psychological History: No Psychological Hx Reported Smoking Status: Former smoker Past Alcohol Use History: None Reported Past Drug Use History: None Reported - Past Family History Mother Family Medical History: No Reported History Additional Family Medical History / Comment(s): Family states pt's mother " of pneumonia". Father Family Medical History: Diabetes Mellitus General Exam Limitations: no limitations General appearance: alert, in no apparent distress Head exam: Present: atraumatic, normocephalic, normal inspection Neck exam: Present: normal inspection, full ROM. Absent: tenderness, menin gismus, lymphadenopathy Respiratory exam: Present: rales (Mild basis). Absent: normal lung sounds bilaterally, respiratory distress, wheezes, rhonchi, stridor Cardiovascular Exam: Present: regular rate, normal rhythm, normal heart sounds. Absent: systolic murmur, diastolic murmur, rubs, gallop, clicks Extremities exam: Present: other (Right leg swelling noted) Neurological exam: Present: alert, oriented X3 Skin exam: Present: warm, dry, intact, normal color. Absent: rash Course Vital Signs 09/30/19 12:19 Temperature 97.4 F L Pulse Rate 78 Respiratory 20 Rate Blood Pressure 107/75 O2 Sat by Pulse 100 Oximetry Medical Decision Making - Lab Data Result diagrams: 09/30/19 12:55 09/30/19 12:55 Lab Results 09/30/19 09/30/19 Range/Units 12:55 12:55 WBC 11.6 H (3.8-10.6) k/uL RBC 3.08 L (3.80-5.40) m/uL Hgb 11.0 L (11.4-16.0) gm/dL Hct 33.8 L (34.0-46.0) % MCV 110.0 H (80.0-100.0) fL MCH 35.6 H (25.0-35.0) pg MCHC 32.4 (31.0-37.0) g/dL RDW 17.0 H (11.5-15.5) % Plt Count 174 (150-450) k/uL Neutrophils % 81 % Lymphocytes % 11 % Monocytes % 3 % Eosinophils % 1 % Basophils % 0 % Neutrophils # 9.4 H (1.3-7.7) k/uL Lymphocytes # 1.3 (1.0-4.8) k/uL Monocytes # 0.4 (0-1.0) k/uL Eosinophils # 0.1 (0-0.7) k/uL Basophils # 0.0 (0-0.2) k/uL Manual Slide Review Performed Polychromasia Present Anisocytosis Slight Macrocytosis Marked A Sodium 138 (137-145) mmol/L Potassium 3.3 L (3.5-5.1) mmol/L Chloride 104 (98-107) mmol/L Carbon Dioxide 16 L (22-30) mmol/L Anion Gap 18 mmol/L BUN 116 H* (7-17) mg/dL Creatinine 3.34 H (0.52-1.04) mg/dL Est GFR (CKD-EPI)AfAm 14 (>60 ml/min/1.73 sqM) Est GFR (CKD-EPI)NonAf 12 (>60 ml/min/1.73 sqM) Glucose 102 H (74-99) mg/dL Calcium 7.0 L (8.4-10.2) mg/dL Phosphorus 8.8 H (2.5-4.5) mg/dL Magnesium 0.8 L* (1.6-2.3) mg/dL Total Bilirubin 0.7 (0.2-1.3) mg/dL AST 22 (14-36) U/L ALT 16 (4-34) U/L Alkaline Phosphatase 101 (38-126) U/L Total Protein 6.7 (6.3-8.2) g/dL Albumin 3.7 (3.5-5.0) g/dL Critical Care Time Critical Care Time: Yes Total Critical Care Time: 35 Critical Care Time: Total 35 minutes of critical care to use initially evaluated patient, reviewed past medical history prior labs in ordering labs including CBC, CMP, magnesium, fossa, urinalysis. Patient found to have hypomagnesemia, hypokalemia replac ement was ordered and 2 g of magnesium, 20 mEq of Kdur. Patient's found to have elevated BUN/creatinine. Patient started gentle hydration, nephrology consult with [facility] [employer]. Disposition Clinical Impression: Acute on chronic renal failure, Hypomagnesemia, Hypokalemia Disposition: ADMITTED IP TO THIS HOSP Condition: Fair Referrals: Elyse Owen MD [Primary Care Provider] - 1-2 days
[2019-09-30 13:19] LABS: Anisocytosis Slight; Basophils % (A) 0 %; Eosinophils # (A) 0.1 k/uL (0-0.7); Eosinophils % (A) 1 %; HCT 33.8 % (34.0-46.0); Lymphocytes # (A) 1.3 k/uL (1.0-4.8); Lymphocytes % (A) 11 %; MCH 35.6 pg (25.0-35.0); MCHC 32.4 g/dL (31.0-37.0); Macrocytosis Marked; Monocytes # (A) 0.4 k/uL (0-1.0); Monocytes % (A) 3 %; Neutrophils # (A) 9.4 k/uL (1.3-7.7); Neutrophils % (A) 81 %; Platelet Count 174 k/uL (150-450); RBC 3.08 m/uL (3.80-5.40); WBC 11.6 k/uL (3.8-10.6)
[2019-09-30 13:27] LABS: Albumin 3.7 g/dL (3.5-5.0); Phosphorus 8.8 mg/dL (2.5-4.5); Potassium 3.3 mmol/L (3.5-5.1); Total Bilirubin 0.7 mg/dL (0.2-1.3); Total Protein 6.7 g/dL (6.3-8.2)
[2019-09-30 13:36] LABS: Magnesium 0.8 mg/dL (1.6-2.3)
[2019-09-30 14:12] LABS: Polychromasia Present
[2019-09-30] MEDS ORDERED: POTASSIUM CHLORIDE ER 20 MEQ TAB.ER PO STA (14:36)
[2019-09-30] MEDS ORDERED: NALOXONE 0.4 MG/ML 1 ML VIAL IV PRN (14:38)
[2019-09-30] MEDS ORDERED: ONDANSETRON 4 MG/2 ML VIAL IVP PRN (14:38)
[2019-09-30] MEDS ORDERED: ONDANSETRON 4 MG/2 ML VIAL IVP STA (14:39)
[2019-09-30] MEDS ORDERED: HYDROmorphone 0.5 MG/0.5 ML SYRINGE IVP STA (14:39)
--- NOTE | 2019-09-30 14:46 | XR ---
EXAMINATION TYPE: XR chest 2V DATE OF EXAM: 09/30/2019 COMPARISON: 03/11/2019 HISTORY: Shortness of breath TECHNIQUE: Frontal and lateral views of the chest are obtained. FINDINGS: Scattered senescent parenchymal changes noted. Hyperinflation compatible with COPD. No evidence for infiltrate. No evidence for atelectasis. Heart size is stable. Mediastinal structures are stable and grossly unremarkable. No evidence for hilar prominence. Degenerative changes dorsal spine. IMPRESSION: 1. No evidence for acute pulmonary disease.
--- NOTE | 2019-09-30 15:30 | P.HPIM ---
History of Present Illness H&P Date: 09/30/19 Chief Complaint: worsening kidney function noted on lab work outpatient This is a 84-year-old female with a known history of chronic kidney disease stage IV, atrial fibrillation anticoagulated Xarelto, congestive heart failure, diabetes mellitus, right leg DVT with [place] filter and is also on Xarelto, hypertension and uterine cancer. Patient presents to the emergency room with a chief complaint of abnormal labs. Patient reports that her PCP had drawn blood work in the office on Monday and her kidney functions have worsened. Patient reports going into the office because she had been having diarrhea for about 4 days. Patient has been having loose watery stools multiple stools throughout the day. I did stools are starting to become less watery. Potassium is 3.3 magnesium is 0.8 phosphorus 8.8 creatinine is 3.3 for BUN 116 white count 11.6 CO2 16. Patient's potassium and magnesium are being replaced. She's been placed on normal saline 75 mL an hour. Nephrology had been recommending that patient be placed on dialysis. Patient initially had been refusing dialysis. She sees Dr. Escobar in the office. At this time patient is reconsidering being placed on dialysis. She is scheduled for kidney ultrasound. We'll await evaluation by Dr. Bernal. Patient is on torsemide and Zaroxolyn at home. Patient has been having weight gain and lower extremity edema. She has some shortness of breath. Chest x-ray was negative. Patient reports urinating witho ut difficulty. Patient had been on antibiotics for UTI couple weeks ago. Patient also has been around sick family contacts with diarrhea. Review of Systems Please refer to HPI otherwise unremarkable Past Medical History Past Medical History: Atrial Fibrillation, Coronary Artery Disease (CAD), Cancer, Heart Failure, Diabetes Mellitus, Deep Vein Thrombosis (DVT), Eye Disorder, GERD/Reflux, Hypertension, Renal Disease Additional Past Medical History / Comment(s): Macular Degeneration and glaucoma, gallstones, stage 4 kidney failure, hx Uterine & groin CA; WEARS BILAT THIGH HIGH HOSE, uses cane or walker, patient states she has "2 blood clots in right groin since 2003" family states now clot is "through the whole leg", CHF, rt hip bone and bone History of Any Multi-Drug Resistant Organisms: ESBL, VRE Date of last positivie culture/infection: 02/11/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 left hip replacement, LEFT breast biopsy, [place] filter rt leg, biopsy of right nostril, biopsy rt breast Past Anesthesia/Blood Transfusion Reactions: No Reported Reaction Past Psychological History: No Psychological Hx Reported Smoking Status: Former smoker Past Alcohol Use History: None Reported Past Drug Use History: None Reported - Past Family History Mother Family Medical History: No Reported History Additional Family Medical History / Comment(s): Family states pt's mother " of pneumonia". Father Family Medical History: Diabetes Mellitus Medications and Allergies Home Medications Medication Instructions Recorded Confirmed Type Allopurinol [Zyloprim] 200 mg PO DAILY 01/22/14 05/14/19 History Linagliptin [Tradjenta] 5 mg PO DAILY@1500 01/22/14 05/14/19 History Omeprazole [PriLOSEC] 20 mg PO DAILY 01/22/14 05/14/19 History Docusate Sodium [Stool Softener] 100 mg PO BID 02/22/14 05/14/19 History Garlic 1 tab PO BID 02/22/14 05/14/19 History Calcitriol 0.25 mcg PO SUTUTHSA 08/22/14 05/14/19 History Brinzolamide/Brimonidine Tart 1 drop BOTH EYES BID 05/11/17 05/14/19 History [Simbrinza 1%-0.2% Eye Drops] Vit C/E/Zn/Coppr/Lutein/Zeaxan 1 tab PO BID 12/03/17 05/14/19 History [Preservision Areds 2 Softgel] Ferrous Sulfate [Feosol] 325 mg PO DAILY 01/11/18 05/14/19 History Ammonium Lactate Cream [Lac-Hydrin 1 applic TOPICAL BID 02/10/18 05/14/19 History 12% Cream] Cholecalciferol (Vitamin D3) 2,000 unit PO DAILY 02/10/18 05/14/19 History [Vitamin D3] Isosorbide Mononitrate ER [Imdur] 60 mg PO DAILY 02/10/18 05/14/19 History Wheat Dextrin [Benefiber] 1 packet PO BID 02/10/18 05/14/19 History Midodrine [ProAmatine] 5 mg PO TID 04/10/18 05/14/19 History Rivaroxaban [Xarelto] 10 mg PO DAILY 04/10/18 05/14/19 History Metoprolol Tartrate [Lopressor] 25 mg PO DAILY@1500 06/15/18 05/14/19 History Metoprolol Tartrate [Lopressor] 50 mg PO BID@0700,2300 09/18/18 05/14/19 History Ondansetron [Zofran] 4 mg PO Q8HR PRN 09/18/18 05/14/19 History traMADol HCL [Ultram] 50 mg PO TID@0800,1600,2300 01/04/19 05/14/19 History Metolazone [Zaroxolyn] 5 mg PO DAILY PRN 03/11/19 05/14/19 History Torsemide [Demadex] 20 mg PO BID #60 tab 03/14/19 05/14/19 Rx Potassium Chloride ER [K-Dur 10] 50 meq PO BID 04/02/19 05/14/19 History Allergies Allergy/AdvReac Type Severity Reaction Status Date / Time atorvastatin calcium Allergy Unknown Verified 09/30/19 12:23 [From Lipitor] codeine Allergy Unknown Verified 09/30/19 12:23 [From Tylenol-Codeine #3] adhesive tape AdvReac Intermediate Unknown Verified 09/30/19 12:23 hydrocodone AdvReac Vomiting Verified 09/30/19 12:23 Physical Exam Vitals: Vital Signs Temp Pulse Resp BP Pulse Ox 09/30/19 12:19 97.4 F L 78 20 107/75 100 Intake and Output 09/30/19 09/30/19 09/30/19 06:59 14:59 22:59 Other: Weight 78.925 kg Head normocephalic Neck supple Lungs clear to auscultation bilaterally no wheezing or crackles Heart regular rate and rhythm S1-S2, no rub or gallop Abdomen is soft nontender nondistended positive bowel sounds no hepatosplenomegaly Extremities +1 edema bilateral lower extremities. NING hose in place Neuro alert and orientated to 3 Results CBC & Chem 7: 09/30/19 12:55 09/30/19 12:55 Labs: Abnormal Lab Results - Last 24 Hours (Table) 09/30/19 09/30/19 Range/Units 12:55 12:55 WBC 11.6 H (3.8-10.6) k/uL RBC 3.08 L (3.80-5.40) m/uL Hgb 11.0 L (11.4-16.0) gm/dL Hct 33.8 L (34.0-46.0) % MCV 110.0 H (80.0-100.0) fL MCH 35.6 H (25.0-35.0) pg RDW 17.0 H (11.5-15.5) % Neutrophils # 9.4 H (1.3-7.7) k/uL Macrocytosis Marked A Potassium 3.3 L (3.5-5.1) mmol/L Carbon Dioxide 16 L (22-30) mmol/L BUN 116 H* (7-17) mg/dL Creatinine 3.34 H (0.52-1.04) mg/dL Glucose 102 H (74-99) mg/dL Calcium 7.0 L (8.4-10.2) mg/dL Phosphorus 8.8 H (2.5-4.5) mg/dL Magnesium 0.8 L* (1.6-2.3) mg/dL Assessment and Plan Assessment: 1. Acute kidney injury: Worsening kidney function Likely secondary to diarrhea as well as patient being on diuretics. She is on torsemide and Zaroxolyn at home. We'll hold these medications until patient evaluated by nephrology. Creatinine is 3.34 and BUN [address] Escobar on consult. Check renal ultrasound. Patient's are normal saline at 75 mL an hour 2. chronic kidney disease stage IV. Followed by Dr. Escobar. 3. Diarrhea: Patient has had previous antibiotic use. Check stool for C. diff. Also could be due to a viral gastritis. We'll monitor 4. Metabolic acidosis: Secondary to acute renal failure and diarrhea. 5. Hypokalemia secondary to diarrhea. Patient receiving potassium supplement ER. Repeat potassium level in a.m. 6. Hypomagnesemia: Patient receiving 2 g of magnesium sulfate. Repeat magnesium level in a.m. 7. Hyperphosphatemia due to renal failure. Will await nephrology recommendations 8. Leukocytosis possibly due to patient's diarrhea will monitor. Chest x-ray negative. UA pending. Patient denies any urinary symptoms. 9. Diabetes mellitus type 2: We'll resume patient's diabetes medications was reviewed and also will add sliding scale coverage. Check an A1c 10. History of chronic persistent atrial fibrillation anticoagulation with Xarelto 11. History of right lower extremity DVT maintained maintained on Xarelto also has [place] filter in place 12. History of chronic systolic CHF. Has a known EF of 30-35% Time with Patient: Greater than 30 (Greater than 50% of the total time spent in counseling and coordination of care.I performed an examination of the patient and discussed their management with the physician Cleaner Signs. I have reviewed the Physician Cleaner Signs's notes and agree with the documented findings and plan of care)
--- NOTE | 2019-09-30 16:25 | US ---
EXAMINATION TYPE: US renals and bladder DATE OF EXAM: 09/30/2019 COMPARISON: NONE CLINICAL HISTORY: Renal failure. renal failure in elderly female EXAM MEASUREMENTS: Right Kidney: 7.6 x 3.7 x 4.2 cm Left Kidney: unable to assess Right Kidney: cortical thinning, small in size Left Kidney: unable to view due to loop of bowel shadowing area, rolled patient, tried a breath in wi th no luck. Bladder: not distended *incidental GB stones There is no evidence for hydronephrosis at this point in time. No nephrolithiasis is seen. No tri s are identified. IMPRESSION: Renal parenchymal thinning right kidney. Poor visualization left kidney. Incidental gallstones.
[2019-09-30] MEDS: MAGNESIUM SULFATE-D5W PMX 1 GM in DEXTROSE/WATER 1 100ML.BAG IVPB SCH ×2 (16:37→19:03)
[2019-09-30] MEDS: CALCIUM ACETATE 667 MG TAB PO SCH (16:43)
[2019-09-30] MEDS: SODIUM CHLORIDE 0.9% 1,000 ML IV SCH (16:46)
[2019-09-30] MEDS: INSULIN ASPART (NovoLOG) 100 UNIT/ML VIAL SQ SCH ×2 (19:05→21:33)
[2019-09-30] MEDS ORDERED: ONDANSETRON 4 MG TAB PO PRN (20:22)
[2019-09-30 20:28] LABS: Glucose,Whole Blood 187 mg/dL (75-99)
[2019-09-30] MEDS: SIMBRINZA BOTH EYES SCH (21:33)
[2019-09-30] MEDS: EYE BOTH EYES SCH (21:33)
[2019-09-30] MEDS: MIDODRINE 5 MG TAB PO SCH (22:35)
[2019-09-30] MEDS: METOPROLOL TARTRATE 50 MG TAB PO SCH (22:36)
[2019-09-30] MEDS: Acetaminophen-Codeine 300-30mg TAB PO PRN (22:36)
[2019-10-01 01:46] LABS: Appearance,Urine Cloudy (Clear); Bacteria,Urine Many /hpf; Bilirubin,Urine Negative (Negative); Blood,Urine Small (Negative); Color,Urine Yellow; Glucose,Urine (UA) Negative (Negative); Hyaline Casts,Urine 12 /lpf (0-2); Ketones,Urine Negative (Negative); Leukocyte Esterase,Urine Large (Negative); Mucus,Urine Rare /hpf; Nitrite,Urine Negative (Negative); Protein,Urine Trace (Negative); RBC,Urine 8 /hpf (0-5); Specific Gravity,Urine 1.012 (1.001-1.035); Squamous Epithelial Cell,Urine 3 /hpf (0-4); Urobilinogen,Urine <2.0 mg/dL (<2.0); WBC,Urine >182 /hpf (0-5)
[2019-10-01] MEDS: SODIUM CHLORIDE 0.9% 1,000 ML IV SCH ×3 (05:42→17:35)
[2019-10-01 07:14] LABS: Glucose,Whole Blood 106 mg/dL (75-99)
[2019-10-01 07:40] LABS: Anisocytosis Slight; Basophils % (A) 0 %; Eosinophils # (A) 0.1 k/uL (0-0.7); Eosinophils % (A) 1 %; HCT 31.9 % (34.0-46.0); HGB 10.3 gm/dL (11.4-16.0); Lymphocytes % (A) 12 %; MCH 35.9 pg (25.0-35.0); MCHC 32.1 g/dL (31.0-37.0); MCV 111.7 fL (80.0-100.0); Macrocytosis Marked; Mean Platelet Volume 9.2; Monocytes # (A) 0.4 k/uL (0-1.0); Monocytes % (A) 5 %; Neutrophils # (A) 6.6 k/uL (1.3-7.7); Neutrophils % (A) 80 %; Platelet Count 140 k/uL (150-450); RBC 2.86 m/uL (3.80-5.40); RDW 17.1 % (11.5-15.5); WBC 8.3 k/uL (3.8-10.6)
[2019-10-01 08:00] LABS: Albumin 3.2 g/dL (3.5-5.0); Calcium 7.1 mg/dL (8.4-10.2); Magnesium 1.4 mg/dL (1.6-2.3); Total Bilirubin 0.6 mg/dL (0.2-1.3)
[2019-10-01 08:13] LABS: Phosphorus 9.3 mg/dL (2.5-4.5)
[2019-10-01] MEDS: ISOSORBIDE MONONITRATE ER 60 MG TAB.ER.24H PO SCH (08:17)
[2019-10-01] MEDS: Acetaminophen-Codeine 300-30mg TAB PO PRN ×2 (08:17→16:13)
[2019-10-01] MEDS: ALLOPURINOL 100 MG TAB PO SCH (08:18)
[2019-10-01] MEDS: CHOLECALCIFEROL 1,000 UNIT TAB PO SCH (08:18)
[2019-10-01] MEDS: METOPROLOL TARTRATE 50 MG TAB PO SCH ×2 (08:18→22:45)
[2019-10-01] MEDS: PANTOPRAZOLE 40 MG TABLET PO SCH (08:18)
[2019-10-01] MEDS: POTASSIUM CHLORIDE ER 10 MEQ TAB.ER.PRT PO SCH ×2 (08:19→15:54)
[2019-10-01] MEDS: DOCUSATE 100 MG CAP PO SCH ×2 (08:22→20:46)
[2019-10-01] MEDS: FERROUS SULFATE 325 MG TAB PO SCH (08:23)
[2019-10-01] MEDS: SODIUM BICARBONATE TAB 650 MG TAB PO SCH ×2 (08:23→15:54)
[2019-10-01] MEDS: CALCIUM ACETATE 667 MG TAB PO SCH ×3 (08:23→15:58)
[2019-10-01] MEDS: CALCIUM POLYCARBOPHIL 625 MG TAB PO SCH ×2 (08:24→20:45)
[2019-10-01] MEDS: MIDODRINE 5 MG TAB PO SCH ×3 (08:24→22:45)
[2019-10-01] MEDS: CALCITRIOL 0.25 MCG CAP PO SCH (08:25)
[2019-10-01] MEDS: SIMBRINZA BOTH EYES SCH ×2 (08:25→20:45)
[2019-10-01] MEDS: RIVAROXABAN 10 MG TAB PO SCH (08:25)
[2019-10-01] MEDS: INSULIN ASPART (NovoLOG) 100 UNIT/ML VIAL SQ SCH ×4 (08:25→20:46)
[2019-10-01] MEDS: EYE BOTH EYES SCH ×2 (08:25→20:45)
[2019-10-01] MEDS ORDERED: POTASSIUM CHLORIDE ER 20 MEQ TAB.ER PO STA (10:11)
[2019-10-01 10:26] LABS: Poikilocytosis (M) Present
[2019-10-01 11:31] LABS: Glucose,Whole Blood 153 mg/dL (75-99)
[2019-10-01] MEDS: MAGNESIUM SULFATE-D5W PMX 1 GM in DEXTROSE/WATER 1 100ML.BAG IVPB SCH ×2 (12:58→15:16)
[2019-10-01] MEDS ORDERED: HYDROmorphone 0.5 MG/0.5 ML SYRINGE IVP PRN (14:22)
--- NOTE | 2019-10-01 14:33 | P.PN ---
Subjective Progress Note Date: 10/01/19 This is a 84-year-old female with a known history of chronic kidney disease stage IV, atrial fibrillation anticoagulated Xarelto, congestive heart failure, diabetes mellitus, right leg DVT with [place] filter and is also on Xarelto, hypertension and uterine cancer. Patient presents to the emergency room with a chief complaint of abnormal labs. Patient reports that her PCP had drawn blood work in the office on Monday and her kidney functions have worsened. Patient reports going into the office because she had been having diarrhea for about 4 days. Patient has been having loose watery stools multiple stools throughout the day. I did stools are starting to become less watery. Potassium is 3.3 magnesium is 0.8 phosphorus 8.8 creatinine is 3.3 for BUN 116 white count 11.6 CO2 16. Patient's potassium and magnesium are being replaced. She's been placed on normal saline 75 mL an hour. Nephrology had been recommending that patient be placed on dialysis. Patient initially had been refusing dialysis. She sees Dr. Escobar in the office. At this time patient is reconsidering being placed on dialysis. She is scheduled for kidney ultrasound. We'll await evaluation by Dr. Bernal. Patient is on torsemide and Zaroxolyn at home. Patient has been having weight gain and lower extremity edema. She has some shortness of breath. Chest x-ray was negative. Patient reports urinating without difficulty. Patient had been on antibiotics for UTI couple weeks ago. Patient also has been around sick family contacts with diarrhea. 10/01/2019 patient sitting at bedside chair. She is complaining of her right hip pain. She reports having severe osteoarthritis in that right hip and the Tylenol #3 are not lasting long enough. Patient reports still having diarrhea. Stool for C. diff is pending. Urinalysis is showing some evidence of a UTI. We'll hold off on starting any antibiotics until we have the C. diff results back. Creatinine has come down from 3.34-3.12. Phosphorus is 9.3. Potassium and magnesium are both low and being replaced. Patient did have a kidney ultrasound completed showing renal parenchymal thinning of the right kidney. Poor visualization of the left kidney. Incidental gallstones. Patient denies any abdominal pain. Denies any nausea or vomiting. Denies any chest pain or shortness of breath. Denies any difficulty urinating. Objective - Vital Signs Vital signs: Vital Signs Temp 97.3 F L 10/01/19 13:02 Pulse 76 10/01/19 13:02 Resp 17 10/01/19 13:02 BP 117/77 10/01/19 13:02 Pulse Ox 99 10/01/19 13:02 Intake & Output 09/30/19 10/01/19 10/01/19 18:59 06:59 18:59 Intake Total 900 Balance 900 Weight 78.925 kg Intake: Intake, IV Titration 900 Amount Sodium Chloride 0.9% 1, 900 000 ml @ 75 mls/hr IV . [id number] [facility] Rx#:[id number] Other: Voiding Method Toilet # Voids 2 - Exam Head normocephalic Neck supple Lungs clear to auscultation bilaterally no wheezing or crackles Heart regular rate and rhythm S1-S2, no rub or gallop Abdomen is soft nontender nondistended positive bowel sounds no hepatosplenomegaly Extremities edema bilateral lower extremities Neuro alert and orientated to 3 - Labs CBC & Chem 7: 10/01/19 06:52 10/01/19 06:52 Labs: Abnormal Lab Results - Last 24 Hours (Table) 09/30/19 10/01/19 10/01/19 Range/Units 20:27 01:30 06:52 RBC 2.86 L (3.80-5.40) m/uL Hgb 10.3 L (11.4-16.0) gm/dL Hct 31.9 L (34.0-46.0) % MCV 111.7 H (80.0-100.0) fL MCH 35.9 H (25.0-35.0) pg RDW 17.1 H (11.5-15.5) % Plt Count 140 L (150-450) k/uL Macrocytosis Marked A Potassium (3.5-5.1) mmol/L Carbon Dioxide (22-30) mmol/L BUN (7-17) mg/dL Creatinine (0.52-1.04) mg/dL POC Glucose (mg/dL) 187 H (75-99) mg/dL Calcium (8.4-10.2) mg/dL Phosphorus (2.5-4.5) mg/dL Magnesium (1.6-2.3) mg/dL Total Protein (6.3-8.2) g/dL Albumin (3.5-5.0) g/dL Urine Appearance Cloudy H (Clear) Urine Protein Trace H (Negative) Urine Blood Small H (Negative) Ur Leukocyte Esterase Large H (Negative) Urine RBC 8 H (0-5) /hpf Urine WBC >182 H (0-5) /hpf Urine WBC Clumps Many H (None) /hpf Urine Bacteria Many H (None) /hpf Hyaline Casts 12 H (0-2) /lpf Urine Mucus Rare H (None) /hpf 10/01/19 10/01/19 10/01/19 Range/Units 06:52 07:12 11:27 RBC (3.80-5.40) m/uL Hgb (11.4-16.0) gm/dL Hct (34.0-46.0) % MCV (80.0-100.0) fL MCH (25.0-35.0) pg RDW (11.5-15.5) % Plt Count (150-450) k/uL Macrocytosis Potassium 3.0 L (3.5-5.1) mmol/L Carbon Dioxide 13 L (22-30) mmol/L BUN 116 H* (7-17) mg/dL Creatinine 3.12 H (0.52-1.04) mg/dL POC Glucose (mg/dL) 106 H 153 H (75-99) mg/dL Calcium 7.1 L (8.4-10.2) mg/dL Phosphorus 9.3 H* (2.5-4.5) mg/dL Magnesium 1.4 L (1.6-2.3) mg/dL Total Protein 6.0 L (6.3-8.2) g/dL Albumin 3.2 L (3.5-5.0) g/dL Urine Appearance (Clear) Urine Protein (Negative) Urine Blood (Negative) Ur Leukocyte Esterase (Negative) Urine RBC (0-5) /hpf Urine WBC (0-5) /hpf Urine WBC Clumps (None) /hpf Urine Bacteria (None) /hpf Hyaline Casts (0-2) /lpf Urine Mucus (None) /hpf Microbiology - Last 24 Hours (Table) 10/01/19 01:30 Urine Culture - Preliminary Urine,Voided Assessment and Plan Assessment: 1. Acute kidney injury: Worsening kidney function Likely secondary to diarrhea as well as patient being on diuretics. She is on torsemide and Zaroxolyn at home. We'll hold these medications until patient evaluated by nephrology. Creatinine is 3.34 and BUN 116 GFR 12 on admission. Renal ultrasound completed strengthening right kidney and incidental gallstones. Patient's are normal saline at 75 mL an hour. Awaiting nephrology evaluation 2. chronic kidney disease stage IV. Followed by Dr. Escobar. 3. Diarrhea: Patient has had previous antibiotic use. Check stool for C. diff. Also could be due to a viral gastroenteritis. We'll monitor 4. Metabolic acidosis: Secondary to diarrhea. Continue sodium bicarb. Await nephrology evaluation 5. Hypokalemia secondary to diarrhea. Potassium remains low 3.0 after supplement. We'll give another K Dur 40 mEq. Continue with scheduled potassium. Repeat potassium this afternoon. Replace as needed 6. Hypomagnesemia: Magnesium is up to 1.4. We'll another 2 g magnesium sulfate. Repeat magnesium in a.m. 7. Hyperphosphatemia due to renal failure. Will await nephrology recommendations. PhosLo started yesterday. We'll monitor 8. Leukocytosis possibly due to patient's diarrhea will monitor. Now resolved. Chest x-ray negative. UA pending. Patient denies any urinary symptoms. 9. Diabetes mellitus type 2: We'll resume patient's diabetes medications was reviewed and also will add sliding scale coverage. Check an A1c 10. History of chronic persistent atrial fibrillation anticoagulation with Xarelto 11. History of right lower extremity DVT maintained maintained on Xarelto also has [place] filter in place 12. History of chronic systolic CHF. Has a known EF of 30-35% 13. Possible UTI: UA is positive. However, will await starting antibiotics until we have the stool for C. diff results 14. Severe osteoarthritis right hip. Patient reporting that Tylenol #3 is not controlling pain. We'll add Dilaudid 0.5 mg IV every 4 as needed for breakthrough pain DVT prophylaxis Xarelto I performed an examination of the patient and discussed their management with the physician Puzzle Assembler. I have reviewed the Physician Puzzle Assembler's notes and agree with the documented findings and plan of care
[2019-10-01] MEDS: METOPROLOL TARTRATE 25 MG TAB PO SCH (15:59)
[2019-10-01 17:27] LABS: Glucose,Whole Blood 150 mg/dL (75-99)
[2019-10-01] MEDS: LINAGLIPTIN 5 MG TABLET PO SCH (17:35)
[2019-10-01 18:30] LABS: Hemoglobin A1C 6.4 % (4.0-6.0)
[2019-10-01 20:43] LABS: Glucose,Whole Blood 118 mg/dL (75-99)
[2019-10-01] MEDS: DEXTROSE 5% IN WATER 1,000 ML with SODIUM BICARB (1 MEQ/ML) 150 ML IV SCH (22:45)
--- NOTE | 2019-10-01 23:56 | CONS ---
CONSULTATION REASON FOR CONSULT: Renal failure. HISTORY OF PRESENT ILLNESS: Patient is an 84-year-old female who was admitted to the hospital with abnormal labs and worsening renal function as outpatient. Patient was seen by Dr. Owen in the office and was noted to have worsening labs. She had also been complaining of having diarrhea for about 4-5 days prior to admission. Patient has CKD, stage V, and had previously decided not to proceed with renal replacement therapy down the road. However, today she states that she is reconsidering and will likely proceed with dialysis if indicated. She states she will give me her final decision by tomorrow. Patient's baseline creatinine is around 2.9 to 2.7 mg/dL. She was admitted with a creatinine of 3.3. It is down to 3.1 today. Currently patient is not on any IV fluids or diuretics. At home she was maintained on oral Demadex 20 mg daily. Patient did receive some IV fluids initially in the ER. Overall, patient states she does not feel any difference. She has been eating fairly well. There is no nausea or vomiting. She thinks her diarrhea is maybe slightly better. PAST MEDICAL HISTORY: CKD, stage V, macular degeneration, glaucoma, history of uterine cancer, history of DVT, CHF, hypertension, coronary artery disease, atrial fibrillation, past history of ESBL and VRE UTI. PAST SURGICAL HISTORY: Appendectomy, bowel resection, hysterectomy, left breast biopsy, [place] filter placement, biopsy of right breast, left hip arthroplasty. SOCIAL HISTORY: Patient is a former smoker. No history of drug abuse or alcohol abuse. MEDICATIONS: Medications at home prior to admission included zyloprim, Tradjenta, Prilosec, garlic, calcitriol, iron, vitamin D3, Imdur, midodrine, Xarelto, Lopressor, Zofran, Zaroxolyn, Demadex, potassium. ALLERGIES: ALLERGIES INCLUDE LIPITOR, TAPE, CODEINE, TYLENOL WITH CODEINE. PHYSICAL EXAMINATION: On examination, patient is comfortable, awake, not in any acute distress. Alert and oriented x3. On examination, blood pressure was 123/68, heart rate 86 per minute. Patient is afebrile. EXAMINATION OF THE HEART: S1 and S2. EXAMINATION OF LUNGS: Bilateral breath sounds are heard. ABDOMEN: Soft, non-tender, obese. Examination of lower extremities shows chronic skin changes, 1+ edema. ABRASIVE COATING MACHINE OPERATOR exam is grossly intact. LABS: Hemoglobin 10.3, white cell count 8.3, sodium 140, potassium 3.0, BUN 116, serum creatinine 3.12, and CO2 was 13. ASSESSMENT: 1. Acute kidney injury, mostly prerenal, currently improved since yesterday. Currently patient is not on any IV fluids. I will add a small dose of IV bicarb, given her severe metabolic acidosis. 2. Metabolic acidosis secondary to gastrointestinal fluid loss with diarrhea and renal failure, anion gap metabolic acidosis. Patient is also maintained on oral sodium bicarb, which I will continue for now. 3. Atrial fibrillation with controlled ventricular response, maintained on Xarelto. 4. Hypokalemia secondary to gastrointestinal fluid loss, maintained on supplementation. 5. Chronic kidney disease, stage IV to V, secondary to nephrosclerosis and element of diabetic kidney disease as well. Initially refusing renal replacement therapy. However, now patient is considering proceeding with dialysis if indicated. 6. Chronic kidney disease mineral bone disorder, maintained on Rocaltrol and PhosLo for phosphate binder. PLAN: Add IV bicarb. Repeat labs in a.m. Hold off on the Demadex for now. I have advised the patient to inform me by tomorrow if she would like to proceed with renal replacement therapy, as we have to proceed with a consult with Dr. Vuong if she is planning to do PD. In the meantime, she will also need to have a backup access for hemodialysis. Thank you for this consultation. Will continue to follow the patient with you during her hospitalization. MMODL / IJN: [id number] /
[2019-10-02 07:21] LABS: Glucose,Whole Blood 146 mg/dL (75-99)
[2019-10-02 08:58] LABS: Anisocytosis Slight; HCT 34.6 % (34.0-46.0); HGB 10.8 gm/dL (11.4-16.0); Hypochromasia Slight; MCH 35.8 pg (25.0-35.0); MCHC 31.3 g/dL (31.0-37.0); MCV 114.4 fL (80.0-100.0); Macrocytosis Marked; Platelet Count 153 k/uL (150-450); RBC 3.03 m/uL (3.80-5.40); RDW 17.1 % (11.5-15.5)
[2019-10-02] MEDS: POTASSIUM CHLORIDE ER 10 MEQ TAB.ER.PRT PO SCH ×2 (09:03→17:42)
[2019-10-02] MEDS: INSULIN ASPART (NovoLOG) 100 UNIT/ML VIAL SQ SCH ×4 (09:18→20:57)
[2019-10-02] MEDS: SIMBRINZA BOTH EYES SCH ×2 (09:19→20:53)
[2019-10-02] MEDS: EYE BOTH EYES SCH ×2 (09:19→20:53)
[2019-10-02 09:22] LABS: Metamyelocytes % 1 %; Nucleated Red Blood Cells 0 /100 WBC (0-0)
[2019-10-02 09:23] LABS: Albumin 3.4 g/dL (3.5-5.0); Calcium 8.1 mg/dL (8.4-10.2); Magnesium 1.8 mg/dL (1.6-2.3); Neutrophils % (M) 84 %; Phosphorus 8.2 mg/dL (2.5-4.5); Poikilocytosis (M) Present; Potassium 4.4 mmol/L (3.5-5.1); Total Bilirubin 0.7 mg/dL (0.2-1.3); Total Cells Counted 200; Total Protein 6.5 g/dL (6.3-8.2)
[2019-10-02] MEDS: ALLOPURINOL 100 MG TAB PO SCH (09:33)
[2019-10-02] MEDS: SODIUM BICARBONATE TAB 650 MG TAB PO SCH ×3 (09:34→21:57)
[2019-10-02] MEDS: METOPROLOL TARTRATE 50 MG TAB PO SCH ×2 (09:34→21:57)
[2019-10-02] MEDS: PANTOPRAZOLE 40 MG TABLET PO SCH (09:34)
[2019-10-02] MEDS: DOCUSATE 100 MG CAP PO SCH ×2 (09:34→20:52)
[2019-10-02] MEDS: ISOSORBIDE MONONITRATE ER 60 MG TAB.ER.24H PO SCH (09:34)
[2019-10-02] MEDS: FERROUS SULFATE 325 MG TAB PO SCH (09:34)
[2019-10-02] MEDS: CHOLECALCIFEROL 1,000 UNIT TAB PO SCH (09:34)
[2019-10-02] MEDS: CALCIUM ACETATE 667 MG TAB PO SCH ×3 (09:34→17:43)
[2019-10-02] MEDS: RIVAROXABAN 10 MG TAB PO SCH (09:35)
[2019-10-02] MEDS: CALCIUM POLYCARBOPHIL 625 MG TAB PO SCH ×2 (09:35→20:52)
[2019-10-02] MEDS: MIDODRINE 5 MG TAB PO SCH ×3 (09:35→21:57)
[2019-10-02 11:15] LABS: Glucose,Whole Blood 139 mg/dL (75-99)
--- NOTE | 2019-10-02 12:45 | P.PN ---
Subjective Progress Note Date: 10/02/19 This is a 84-year-old female with a known history of chronic kidney disease stage IV, atrial fibrillation anticoagulated Xarelto, congestive heart failure, diabetes mellitus, right leg DVT with [place] filter and is also on Xarelto, hypertension and uterine cancer. Patient presents to the emergency room with a chief complaint of abnormal labs. Patient reports that her PCP had drawn blood work in the office on Monday and her kidney functions have worsened. Patient reports going into the office because she had been having diarrhea for about 4 days. Patient has been having loose watery stools multiple stools throughout the day. I did stools are starting to become less watery. Potassium is 3.3 magnesium is 0.8 phosphorus 8.8 creatinine is 3.3 for BUN 116 white count 11.6 CO2 16. Patient's potassium and magnesium are being replaced. She's been placed on normal saline 75 mL an hour. Nephrology had been recommending that patient be placed on dialysis. Patient initially had been refusing dialysis. She sees Dr. Escobar in the office. At this time patient is reconsidering being placed on dialysis. She is scheduled for kidney ultrasound. We'll await evaluation by Dr. Bernal. Patient is on torsemide and Zaroxolyn at home. Patient has been having weight gain and lower extremity edema. She has some shortness of breath. Chest x-ray was negative. Patient reports urinating without difficulty. Patient had been on antibiotics for UTI couple weeks ago. Patient also has been around sick family contacts with diarrhea. On 10/02/2019 patient is resting comfortably in chair family at bedside. Dr. ferrer per surgical services have been consulted for possible peritoneal dialysis catheter placement. This time patient denies chest pain or shortness of breath. Patient denies nausea vomiting or diarrhea. Patient denies any urinary burning or frequency. Stool for C. diff negative Objective - Vital Signs Vital signs: Vital Signs Temp 97.3 F L 10/02/19 08:31 Pulse 88 10/02/19 08:31 Resp 20 10/02/19 08:31 BP 120/78 10/02/19 08:31 Pulse Ox 99 10/02/19 08:31 Intake & Output 10/01/19 10/02/19 10/02/19 18:59 06:59 18:59 Intake Total 850 700 Balance 850 700 Weight 80 kg Intake: Intake, IV Titration 650 700 Amount Dextrose 5% in Water 1, 400 000 ml @ 50 mls/hr IV . Q23H [facility] with Sodium Bicarb (1 Meq/ml) 150 ml Rx#:[id number] Magnesium Sulfate-D5w Pmx 100 1 gm In Dextrose/Water 1 100ml.bag @ 100 mls/hr IVPB Q1H [facility] Rx#: [id number] Magnesium Sulfate-D5w Pmx 100 1 gm In Dextrose/Water 1 100ml.bag @ 100 mls/hr IVPB Q1H [facility] Rx#: [id number] Sodium Chloride 0.9% 1, 450 300 000 ml @ 75 mls/hr IV . [id number] [facility] Rx#:[id number] Oral 200 Other: Voiding Method Toilet Toilet # Voids 2 - Exam Head normocephalic Neck supple Lungs clear to auscultation bilaterally no wheezing or crackles Heart regular rate and rhythm S1-S2, no rub or gallop Abdomen is soft nontender nondistended positive bowel sounds no hepatosplenomegaly Extremities +1 edema bilateral lower extremities. NING parks in place Neuro alert and orientated to 3 - Labs CBC & Chem 7: 10/02/19 08:20 10/02/19 08:20 Labs: Abnormal Lab Results - Last 24 Hours (Table) 10/01/19 10/01/19 10/01/19 Range/Units 06:52 15:10 17:16 RBC (3.80-5.40) m/uL Hgb (11.4-16.0) gm/dL MCV (80.0-100.0) fL MCH (25.0-35.0) pg RDW (11.5-15.5) % Neutrophils # (Manual) (1.3-7.7) k/uL Lymphocytes # (Manual) (1.0-4.8) k/uL Metamyelocytes # (Man) (0) k/uL Macrocytosis Potassium 3.4 L (3.5-5.1) mmol/L Chloride (98-107) mmol/L Carbon Dioxide (22-30) mmol/L BUN (7-17) mg/dL Creatinine (0.52-1.04) mg/dL Glucose (74-99) mg/dL POC Glucose (mg/dL) 150 H (75-99) mg/dL Hemoglobin A1c 6.4 H (4.0-6.0) % Calcium (8.4-10.2) mg/dL Phosphorus (2.5-4.5) mg/dL Albumin (3.5-5.0) g/dL 10/01/19 10/02/19 10/02/19 Range/Units 20:42 07:19 08:20 RBC 3.03 L (3.80-5.40) m/uL Hgb 10.8 L (11.4-16.0) gm/dL MCV 114.4 H (80.0-100.0) fL MCH 35.8 H (25.0-35.0) pg RDW 17.1 H (11.5-15.5) % Neutrophils # (Manual) 8.40 H (1.3-7.7) k/uL Lymphocytes # (Manual) 0.90 L (1.0-4.8) k/uL Metamyelocytes # (Man) 0.10 H (0) k/uL Macrocytosis Marked A Potassium (3.5-5.1) mmol/L Chloride (98-107) mmol/L Carbon Dioxide (22-30) mmol/L BUN (7-17) mg/dL Creatinine (0.52-1.04) mg/dL Glucose (74-99) mg/dL POC Glucose (mg/dL) 118 H 146 H (75-99) mg/dL Hemoglobin A1c (4.0-6.0) % Calcium (8.4-10.2) mg/dL Phosphorus (2.5-4.5) mg/dL Albumin (3.5-5.0) g/dL 10/02/19 10/02/19 Range/Units 08:20 11:12 RBC (3.80-5.40) m/uL Hgb (11.4-16.0) gm/dL MCV (80.0-100.0) fL MCH (25.0-35.0) pg RDW (11.5-15.5) % Neutrophils # (Manual) (1.3-7.7) k/uL Lymphocytes # (Manual) (1.0-4.8) k/uL Metamyelocytes # (Man) (0) k/uL Macrocytosis Potassium (3.5-5.1) mmol/L Chloride 109 H (98-107) mmol/L Carbon Dioxide 11 L (22-30) mmol/L BUN 112 H* (7-17) mg/dL Creatinine 3.15 H (0.52-1.04) mg/dL Glucose 147 H (74-99) mg/dL POC Glucose (mg/dL) 139 H (75-99) mg/dL Hemoglobin A1c (4.0-6.0) % Calcium 8.1 L (8.4-10.2) mg/dL Phosphorus 8.2 H (2.5-4.5) mg/dL Albumin 3.4 L (3.5-5.0) g/dL Microbiology - Last 24 Hours (Table) 10/01/19 01:30 Urine Culture - Preliminary Urine,Voided Assessment and Plan Assessment: 1. Acute kidney injury: Worsening kidney function Likely secondary to diarrhea as well as patient being on diuretics. She is on torsemide and Zaroxolyn at home. We'll hold these medications until patient evaluated by nephrology. Creatinine is 3.34 and BUN [address] Escobar on consult. Check renal ultrasound. Patient's are normal saline at 75 mL an hour 2. chronic kidney disease stage IV. Followed by Dr. Escobar. Dr. ferrer has been consulted for consideration of possible peritoneal dialysis 3. Diarrhea: Patient has had previous antibiotic use. Check stool for C. diff. Also could be due to a viral gastritis. We'll monitor. Stool for C. diff negative 4. Metabolic acidosis: Secondary to acute renal failure and diarrhea. She started on sodium bicarb per nephrology 5. Hypokalemia secondary to diarrhea. Patient receiving potassium supplement ER. Repeat potassium level in a.m.. Repeat potassium 4.4 6. Hypomagnesemia: Patient receiving 2 g of magnesium sulfate. Repeat magnesium level in a.m. repeat magnesium 1.8 7. Hyperphosphatemia due to renal failure. Will await nephrology recommendations 8. Leukocytosis possibly due to patient's diarrhea will monitor. Chest x-ray negative. UA pending. Patient denies any urinary symptoms. 9. Diabetes mellitus type 2: We'll resume patient's diabetes medications was reviewed and also will add sliding scale coverage. Check an A1c 10. History of chronic persistent atrial fibrillation anticoagulation with Xarelto 11. History of right lower extremity DVT maintained maintained on Xarelto also has [place] filter in place 12. History of chronic systolic CHF. Has a known EF of 30-35% 13. Urinary tract infection. Urine culture ordered. Patient started on Rocephin I performed an examination of the patient and discussed their management with the Nurse Practitioner. I have reviewed the Nurse Practitioner's notes and agree with the documented findings and plan of care
--- NOTE | 2019-10-02 12:46 | PN ---
PROGRESS NOTE Patient is seen for followup for chronic kidney disease and acute kidney injury. The patient was maintained on IV fluids. Her renal function has improved somewhat with creatinine down from 3.3 to 3.1. However, daughter is worried about fluid retention. At this time, patient denies any significant chest pains, shortness of breath, nausea or vomiting. She is maintained on bicarb at 50 mL an hour. Her CO2 has further worsened. Patient is also maintained on oral sodium bicarb. Patient was going to decide regarding renal replacement therapy and at this time she has decided to proceed with dialysis when indicated. PHYSICAL EXAMINATION: On examination, patient is comfortable, awake, not in any acute distress. Blood pressure was 120/78, heart rate 88 per minute. Patient is afebrile. EXAMINATION OF THE HEART: S1 and S2. EXAMINATION OF THE LUNGS: Bilateral breath sounds are heard. ABDOMEN: Soft, nontender. Examination of lower extremities shows edema 1+ bilaterally. Chronic skin changes. SWEDGER exam grossly intact. LABS: Labs show hemoglobin 10.8, sodium 139, potassium 4.4, chloride 109, CO2 is 11, BUN 112, serum creatinine 3.15. Phosphorus is 8.2. ASSESSMENT: 1. Acute kidney injury on top of chronic kidney disease, mainly prerenal. However, patient is maintained on gentle IV hydration. Her creatinine has improved, but she remains acidotic. She has decided to proceed with dialysis. We will obtain a surgical consult with Dr. Vuong to evaluate her abdomen for PD catheter placement. Hopefully that can be done in the next week or so. 2. Metabolic acidosis associated with renal failure. There is no ongoing diarrhea at this point. Increase oral sodium bicarb and continue with the IV bicarb at the current dose for now. 3. Generalized debility. 4. Chronic kidney disease mineral bone disorder, maintained on PhosLo and Rocaltrol. Phosphorus is quite high. I will increase the PhosLo to 2 tablets t.i.d. with meals. PLAN: Increase oral sodium bicarb. Consult Dr. Vuong for evaluation for PD catheter placement. I will also inform the PD Department at the outpatient unit for evaluation of her home for PD down the road. Patient is encouraged to increase oral intake. Continue to hold off on diuretics for now. MMODL / IJN: [id number] /
[2019-10-02] MEDS: Acetaminophen-Codeine 300-30mg TAB PO PRN (13:43)
[2019-10-02 16:42] LABS: Glucose,Whole Blood 139 mg/dL (75-99)
[2019-10-02] MEDS: METOPROLOL TARTRATE 25 MG TAB PO SCH (17:44)
[2019-10-02] MEDS: LINAGLIPTIN 5 MG TABLET PO SCH (17:44)
[2019-10-02 20:09] LABS: Glucose,Whole Blood 125 mg/dL (75-99)
[2019-10-02] MEDS: DEXTROSE 5% IN WATER 1,000 ML with SODIUM BICARB (1 MEQ/ML) 150 ML IV SCH (20:53)
[2019-10-03] MEDS: Acetaminophen-Codeine 300-30mg TAB PO PRN ×3 (01:29→17:33)
[2019-10-03] MEDS: DEXTROSE 5% IN WATER 1,000 ML with SODIUM BICARB (1 MEQ/ML) 150 ML IV SCH (01:29)
[2019-10-03 07:09] LABS: Glucose,Whole Blood 114 mg/dL (75-99)
[2019-10-03 07:38] LABS: Anisocytosis Slight; Basophils % (A) 0 %; Eosinophils # (A) 0.2 k/uL (0-0.7); Eosinophils % (A) 2 %; HCT 32.2 % (34.0-46.0); Hypochromasia Slight; Lymphocytes % (A) 12 %; MCH 35.3 pg (25.0-35.0); MCV 113.6 fL (80.0-100.0); Macrocytosis Marked; Mean Platelet Volume 9.1; Monocytes # (A) 0.4 k/uL (0-1.0); Monocytes % (A) 5 %; Neutrophils # (A) 6.5 k/uL (1.3-7.7); Neutrophils % (A) 77 %; Platelet Count 149 k/uL (150-450); RBC 2.84 m/uL (3.80-5.40); WBC 8.4 k/uL (3.8-10.6)
[2019-10-03] MEDS: INSULIN ASPART (NovoLOG) 100 UNIT/ML VIAL SQ SCH ×4 (07:49→21:15)
[2019-10-03 08:31] LABS: Albumin 3.2 g/dL (3.5-5.0); Calcium 8.5 mg/dL (8.4-10.2); Magnesium 1.8 mg/dL (1.6-2.3); Phosphorus 6.9 mg/dL (2.5-4.5); Potassium 4.6 mmol/L (3.5-5.1); Total Bilirubin 0.5 mg/dL (0.2-1.3); Total Protein 5.9 g/dL (6.3-8.2)
[2019-10-03] MEDS: EYE BOTH EYES SCH ×2 (09:56→20:44)
[2019-10-03] MEDS: SIMBRINZA BOTH EYES SCH ×2 (09:56→20:44)
[2019-10-03] MEDS: CHOLECALCIFEROL 1,000 UNIT TAB PO SCH (09:57)
[2019-10-03] MEDS: FERROUS SULFATE 325 MG TAB PO SCH (09:57)
[2019-10-03] MEDS: PANTOPRAZOLE 40 MG TABLET PO SCH (09:57)
[2019-10-03] MEDS: ALLOPURINOL 100 MG TAB PO SCH (09:58)
[2019-10-03] MEDS: DOCUSATE 100 MG CAP PO SCH ×2 (09:58→20:43)
[2019-10-03] MEDS: SODIUM BICARBONATE TAB 650 MG TAB PO SCH ×3 (10:00→20:43)
[2019-10-03] MEDS: METOPROLOL TARTRATE 50 MG TAB PO SCH ×2 (10:00→21:19)
[2019-10-03] MEDS: CALCIUM ACETATE 667 MG TAB PO SCH ×3 (10:01→17:33)
[2019-10-03] MEDS: CALCIUM POLYCARBOPHIL 625 MG TAB PO SCH ×2 (10:02→20:44)
[2019-10-03] MEDS: MIDODRINE 5 MG TAB PO SCH ×3 (10:02→21:16)
[2019-10-03] MEDS: CALCITRIOL 0.25 MCG CAP PO SCH (10:03)
[2019-10-03] MEDS: RIVAROXABAN 10 MG TAB PO SCH (10:04)
[2019-10-03] MEDS: POTASSIUM CHLORIDE ER 10 MEQ TAB.ER.PRT PO SCH ×2 (10:06→16:35)
[2019-10-03] MEDS: ISOSORBIDE MONONITRATE ER 60 MG TAB.ER.24H PO SCH (10:06)
[2019-10-03 11:37] LABS: Glucose,Whole Blood 154 mg/dL (75-99)
--- NOTE | 2019-10-03 12:37 | P.GSCN ---
<Noemi Feliciano Josseline - Last Filed: 10/03/19 12:32> History of Present Illness Consult date: 10/03/19 Reason for Consult: PD catheter Requesting physician: Hanna Escobar History of present illness: CHIEF COMPLAINT: PD catheter placement HISTORY OF PRESENT ILLNESS: 84 year old female with a history of chronic renal failure. Patient has been contemplating starting dialysis for the past several months. She is now considering peritoneal dialysis. General surgery was consulted for evaluation of possible peritoneal dialysis catheter placement. PAST MEDICAL HISTORY: See list. PAST SURGICAL HISTORY: See list. SOCIAL HISTORY: No illicit drug use. REVIEW OF SYSTEMS: CONSTITUTIONAL: Denies fever or chills. HEENT: Denies blurred vision, vision changes, or eye pain. Denies hemoptysis CARDIOVASCULAR: Denies chest pain or pressure. RESPIRATORY: No shortness of breath. GASTROINTESTINAL: Refer to HPI for pertinent findings HEMATOLOGIC: Denies bleeding disorders. GENITOURINARY: Denies any blood in urine. SKIN: Denies pruitis. Denies rash. PHYSICAL EXAM: VITAL SIGNS: Reviewed. GENERAL: Well-developed in no acute distress. HEENT: No sclera icterus. Extraocular movements grossly intact. Moist buccal mucosa. Head is atraumatic, normocephalic. ABDOMEN: Soft. Nondistended. Nontender. NEUROLOGIC: Alert and oriented. Cranial nerves II through XII grossly intact. LABORATORY DATA: WBC 8.4. Hemoglobin 10.0. PERRLA, 149. BUN 106. Creatinine 3.08. IMAGING: Renal ultrasound: Renal parenchymal thinning right kidney. Poor visualization left kidney. Incidental gallstones ASSESSMENT: 1. Chronic kidney disease PLAN: Patient with CKD who has been refusing dialysis for several months. Patient now agreeable to PD. Patient with history of multiple abdominal surgeries. Dr. Vuong will re-evaluate patient this afternoon to determine if she is a good surgical candidate for PD catheter. If so, Xarelto will need to be held prior to any surgical intervention. Nurse practitioner note has been reviewed by physician. Signing provider agrees with the documented findings, assessment, and plan of care. Past Medical History Past Medical History: Atrial Fibrillation, Coronary Artery Disease (CAD), Cancer, Heart Failure, Diabetes Mellitus, Deep Vein Thrombosis (DVT), Eye Disorder, GERD/Reflux, Hypertension, Renal Disease Additional Past Medical History / Comment(s): Macular Degeneration and glaucoma, gallstones, stage 4 kidney failure, hx Uterine & groin CA; WEARS BILAT THIGH HIGH HOSE, uses cane or walker, patient states she has "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 left hip replacement, LEFT breast biopsy, [place] filter rt leg, biopsy of right nostril, biopsy rt breast Past Anesthesia/Blood Transfusion Reactions: No Reported Reaction Past Psychological History: No Psychological Hx Reported Smoking Status: Former smoker Past Alcohol Use History: None Reported Past Drug Use History: None Reported - Past Family History Mother Family Medical History: No Reported History Additional Family Medical History / Comment(s): Family states pt's mother " of pneumonia". Father Family Medical History: Diabetes Mellitus Medications and Allergies Home Medications Medication Instructions Recorded Confirmed Type Allopurinol [Zyloprim] 200 mg PO DAILY@0800 01/22/14 09/30/19 History Linagliptin [Tradjenta] 5 mg PO DAILY@1500 01/22/14 09/30/19 History Omeprazole [PriLOSEC] 20 mg PO DAILY@0700 01/22/14 09/30/19 History Docusate Sodium [Stool Softener] 100 mg PO BID@02/22/14 09/30/19 History Garlic 1 tab PO BID 02/22/14 09/30/19 History Calcitriol 0.25 mcg PO SUTUTHSA@0800 08/22/14 09/30/19 History Brinzolamide/Brimonidine Tart 1 drop BOTH EYES BID@699,199905/11/17 09/30/19 History [Simbrinza 1%-0.2% Eye Drops] Vit C/E/Zn/Coppr/Lutein/Zeaxan 1 cap PO BID@0900,199912/03/17 09/30/19 History [Preservision Areds 2 Softgel] Ferrous Sulfate [Feosol] 325 mg PO DAILY@0800 01/11/18 09/30/19 History Cholecalciferol (Vitamin D3) 2,000 unit PO DAILY@0800 02/10/18 09/30/19 History [Vitamin D3] Isosorbide Mononitrate ER [Imdur] 60 mg PO DAILY@0800 02/10/18 09/30/19 History Wheat Dextrin [Benefiber] 1 packet PO BID@0800,199902/10/18 09/30/19 History Midodrine [ProAmatine] 10 mg PO TID@0700,1500,2300 04/10/18 09/30/19 History Rivaroxaban [Xarelto] 10 mg PO DAILY@0804/10/18 09/30/19 History Metoprolol Tartrate [Lopressor] 25 mg PO DAILY@1500 06/15/18 09/30/19 History Metoprolol Tartrate [Lopressor] 50 mg PO BID@0700,2300 09/18/18 09/30/19 History Ondansetron [Zofran] 4 mg PO Q12H PRN 09/18/18 09/30/19 History Metolazone [Zaroxolyn] 5 mg PO DAILY PRN 03/11/19 09/30/19 History Potassium Chloride ER [K-Dur 10] 60 meq PO BID@0800,1500 04/02/19 09/30/19 History Acetaminophen-Codeine 300-30mg 1 tab PO Q6H PRN 09/30/19 09/30/19 History [Tylenol w/codeine #3] Sodium Bicarbonate Tab 650 mg PO BID@0800,1500 09/30/19 09/30/19 History Torsemide [Demadex] 20 mg PO DAILY@0800 09/30/19 09/30/19 History Allergies Allergy/AdvReac Type Severity Reaction Status Date / Time atorvastatin calcium Allergy Unknown Verified 09/30/19 12:23 [From Lipitor] codeine Allergy Unknown Verified 09/30/19 12:23 [From Tylenol-Codeine #3] adhesive tape AdvReac Intermediate Unknown Verified 09/30/19 12:23 hydrocodone AdvReac Vomiting Verified 09/30/19 12:23 Surgical - Exam Vital Signs Temp Pulse Resp BP Pulse Ox 97.4 F L 78 20 107/75 100 09/30/19 12:19 09/30/19 12:19 09/30/19 12:19 09/30/19 12:19 09/30/19 12:19 Results - Labs 10/03/19 07:09 10/03/19 07:09 Abnormal Lab Results - Last 24 Hours (Table) 10/02/19 10/02/19 10/03/19 Range/Units 16:34 20:08 07:07 RBC (3.80-5.40) m/uL Hgb (11.4-16.0) gm/dL Hct (34.0-46.0) % MCV (80.0-100.0) fL MCH (25.0-35.0) pg RDW (11.5-15.5) % Plt Count (150-450) k/uL Macrocytosis Chloride (98-107) mmol/L Carbon Dioxide (22-30) mmol/L BUN (7-17) mg/dL Creatinine (0.52-1.04) mg/dL Glucose (74-99) mg/dL POC Glucose (mg/dL) 139 H 125 H 114 H (75-99) mg/dL Phosphorus (2.5-4.5) mg/dL Total Protein (6.3-8.2) g/dL Albumin (3.5-5.0) g/dL 10/03/19 10/03/19 Range/Units 07:09 07:09 RBC 2.84 L (3.80-5.40) m/uL Hgb 10.0 L (11.4-16.0) gm/dL Hct 32.2 L (34.0-46.0) % MCV 113.6 H (80.0-100.0) fL MCH 35.3 H (25.0-35.0) pg RDW 17.0 H (11.5-15.5) % Plt Count 149 L (150-450) k/uL Macrocytosis Marked A Chloride 109 H (98-107) mmol/L Carbon Dioxide 16 L (22-30) mmol/L BUN 106 H* (7-17) mg/dL Creatinine 3.08 H (0.52-1.04) mg/dL Glucose 110 H (74-99) mg/dL POC Glucose (mg/dL) (75-99) mg/dL Phosphorus 6.9 H (2.5-4.5) mg/dL Total Protein 5.9 L (6.3-8.2) g/dL Albumin 3.2 L (3.5-5.0) g/dL Microbiology - Last 24 Hours (Table) 10/01/19 01:30 Urine Culture - Final Urine,Voided Diabetes panel 10/03/19 Range/Units 07:09 Sodium 139 (137-145) mmol/L Potassium 4.6 (3.5-5.1) mmol/L Chloride 109 H (98-107) mmol/L Carbon Dioxide 16 L (22-30) mmol/L BUN 106 H* (7-17) mg/dL Creatinine 3.08 H (0.52-1.04) mg/dL Glucose 110 H (74-99) mg/dL Calcium 8.5 (8.4-10.2) mg/dL AST 24 (14-36) U/L ALT 16 (4-34) U/L Alkaline Phosphatase 99 (38-126) U/L Total Protein 5.9 L (6.3-8.2) g/dL Albumin 3.2 L (3.5-5.0) g/dL Calcium panel 10/03/19 Range/Units 07:09 Calcium 8.5 (8.4-10.2) mg/dL Phosphorus 6.9 H (2.5-4.5) mg/dL Albumin 3.2 L (3.5-5.0) g/dL Pituitary panel 10/03/19 Range/Units 07:09 Sodium 139 (137-145) mmol/L Potassium 4.6 (3.5-5.1) mmol/L Chloride 109 H (98-107) mmol/L Carbon Dioxide 16 L (22-30) mmol/L BUN 106 H* (7-17) mg/dL Creatinine 3.08 H (0.52-1.04) mg/dL Glucose 110 H (74-99) mg/dL Calcium 8.5 (8.4-10.2) mg/dL Adrenal panel 10/03/19 Range/Units 07:09 Sodium 139 (137-145) mmol/L Potassium 4.6 (3.5-5.1) mmol/L Chloride 109 H (98-107) mmol/L Carbon Dioxide 16 L (22-30) mmol/L BUN 106 H* (7-17) mg/dL Creatinine 3.08 H (0.52-1.04) mg/dL Glucose 110 H (74-99) mg/dL Calcium 8.5 (8.4-10.2) mg/dL Total Bilirubin 0.5 (0.2-1.3) mg/dL AST 24 (14-36) U/L ALT 16 (4-34) U/L Alkaline Phosphatase 99 (38-126) U/L Total Protein 5.9 L (6.3-8.2) g/dL Albumin 3.2 L (3.5-5.0) g/dL <Teodoro Vuong - Last Filed: 10/03/19 17:11> History of Present Illness History of present illness: As above. Patient with history of previous bowel obstructions, bowel resections, and pelvic radiation. Overall relatively poor candidate for peritoneal dialysis. If peritoneal dialysis was chosen would require general anesthesia and laparoscopic evaluation prior to placement. Given the high risk after discussing with nephrology and the family we would recommend avoiding peritoneal dialysis at this time. We'll sign off. Please call if needed. Surgical - Exam Vital Signs Temp Pulse Resp BP Pulse Ox 97.4 F L 78 20 107/75 100 09/30/19 12:19 09/30/19 12:19 09/30/19 12:19 09/30/19 12:19 09/30/19 12:19 Results - Labs 10/03/19 07:09 10/03/19 07:09 Abnormal Lab Results - Last 24 Hours (Table) 10/02/19 10/03/19 10/03/19 Range/Units 20:08 07:07 07:09 RBC 2.84 L (3.80-5.40) m/uL Hgb 10.0 L (11.4-16.0) gm/dL Hct 32.2 L (34.0-46.0) % MCV 113.6 H (80.0-100.0) fL MCH 35.3 H (25.0-35.0) pg RDW 17.0 H (11.5-15.5) % Plt Count 149 L (150-450) k/uL Macrocytosis Marked A Chloride (98-107) mmol/L Carbon Dioxide (22-30) mmol/L BUN (7-17) mg/dL Creatinine (0.52-1.04) mg/dL Glucose (74-99) mg/dL POC Glucose (mg/dL) 125 H 114 H (75-99) mg/dL Phosphorus (2.5-4.5) mg/dL Total Protein (6.3-8.2) g/dL Albumin (3.5-5.0) g/dL Urine Appearance (Clear) Urine Protein (Negative) Urine Blood (Negative) Ur Leukocyte Esterase (Negative) Urine WBC (0-5) /hpf Urine WBC Clumps (None) /hpf Amorphous Sediment (None) /hpf Urine Bacteria (None) /hpf 10/03/19 10/03/19 10/03/19 Range/Units 07:09 11:26 15:32 RBC (3.80-5.40) m/uL Hgb (11.4-16.0) gm/dL Hct (34.0-46.0) % MCV (80.0-100.0) fL MCH (25.0-35.0) pg RDW (11.5-15.5) % Plt Count (150-450) k/uL Macrocytosis Chloride 109 H (98-107) mmol/L Carbon Dioxide 16 L (22-30) mmol/L BUN 106 H* (7-17) mg/dL Creatinine 3.08 H (0.52-1.04) mg/dL Glucose 110 H (74-99) mg/dL POC Glucose (mg/dL) 154 H (75-99) mg/dL Phosphorus 6.9 H (2.5-4.5) mg/dL Total Protein 5.9 L (6.3-8.2) g/dL Albumin 3.2 L (3.5-5.0) g/dL Urine Appearance Cloudy H (Clear) Urine Protein Trace H (Negative) Urine Blood Small H (Negative) Ur Leukocyte Esterase Large H (Negative) Urine WBC >182 H (0-5) /hpf Urine WBC Clumps Many H (None) /hpf Amorphous Sediment Rare H (None) /hpf Urine Bacteria Many H (None) /hpf Microbiology - Last 24 Hours (Table) 10/01/19 01:30 Urine Culture - Final Urine,Voided Diabetes panel 10/03/19 Range/Units 07:09 Sodium 139 (137-145) mmol/L Potassium 4.6 (3.5-5.1) mmol/L Chloride 109 H (98-107) mmol/L Carbon Dioxide 16 L (22-30) mmol/L BUN 106 H* (7-17) mg/dL Creatinine 3.08 H (0.52-1.04) mg/dL Glucose 110 H (74-99) mg/dL Calcium 8.5 (8.4-10.2) mg/dL AST 24 (14-36) U/L ALT 16 (4-34) U/L Alkaline Phosphatase 99 (38-126) U/L Total Protein 5.9 L (6.3-8.2) g/dL Albumin 3.2 L (3.5-5.0) g/dL Calcium panel 10/03/19 Range/Units 07:09 Calcium 8.5 (8.4-10.2) mg/dL Phosphorus 6.9 H (2.5-4.5) mg/dL Albumin 3.2 L (3.5-5.0) g/dL Pituitary panel 10/03/19 Range/Units 07:09 Sodium 139 (137-145) mmol/L Potassium 4.6 (3.5-5.1) mmol/L Chloride 109 H (98-107) mmol/L Carbon Dioxide 16 L (22-30) mmol/L BUN 106 H* (7-17) mg/dL Creatinine 3.08 H (0.52-1.04) mg/dL Glucose 110 H (74-99) mg/dL Calcium 8.5 (8.4-10.2) mg/dL Adrenal panel 10/03/19 Range/Units 07:09 Sodium 139 (137-145) mmol/L Potassium 4.6 (3.5-5.1) mmol/L Chloride 109 H (98-107) mmol/L Carbon Dioxide 16 L (22-30) mmol/L BUN 106 H* (7-17) mg/dL Creatinine 3.08 H (0.52-1.04) mg/dL Glucose 110 H (74-99) mg/dL Calcium 8.5 (8.4-10.2) mg/dL Total Bilirubin 0.5 (0.2-1.3) mg/dL AST 24 (14-36) U/L ALT 16 (4-34) U/L Alkaline Phosphatase 99 (38-126) U/L Total Protein 5.9 L (6.3-8.2) g/dL Albumin 3.2 L (3.5-5.0) g/dL
--- NOTE | 2019-10-03 15:04 | P.PN ---
Subjective Progress Note Date: 10/03/19 This is a 84-year-old female with a known history of chronic kidney disease stage IV, atrial fibrillation anticoagulated Xarelto, congestive heart failure, diabetes mellitus, right leg DVT with [place] filter and is also on Xarelto, hypertension and uterine cancer. Patient presents to the emergency room with a chief complaint of abnormal labs. Patient reports that her PCP had drawn blood work in the office on Monday and her kidney functions have worsened. Patient reports going into the office because she had been having diarrhea for about 4 days. Patient has been having loose watery stools multiple stools throughout the day. I did stools are starting to become less watery. Potassium is 3.3 magnesium is 0.8 phosphorus 8.8 creatinine is 3.3 for BUN 116 white count 11.6 CO2 16. Patient's potassium and magnesium are being replaced. She's been placed on normal saline 75 mL an hour. Nephrology had been recommending that patient be placed on dialysis. Patient initially had been refusing dialysis. She sees Dr. Escobar in the office. At this time patient is reconsidering being placed on dialysis. She is scheduled for kidney ultrasound. We'll await evaluation by Dr. Bernal. Patient is on torsemide and Zaroxolyn at home. Patient has been having weight gain and lower extremity edema. She has some shortness of breath. Chest x-ray was negative. Patient reports urinating without difficulty. Patient had been on antibiotics for UTI couple weeks ago. Patient also has been around sick family contacts with diarrhea. 10/01/2019 patient sitting at bedside chair. She is complaining of her right hip pain. She reports having severe osteoarthritis in that right hip and the Tylenol #3 are not lasting long enough. Patient reports still having diarrhea. Stool for C. diff is pending. Urinalysis is showing some evidence of a UTI. We'll hold off on starting any antibiotics until we have the C. diff results back. Creatinine has come down from 3.34-3.12. Phosphorus is 9.3. Potassium and magnesium are both low and being replaced. Patient did have a kidney ultrasound completed showing renal parenchymal thinning of the right kidney. Poor visualization of the left kidney. Incidental gallstones. Patient denies any abdominal pain. Denies any nausea or vomiting. Denies any chest pain or shortness of breath. Denies any difficulty urinating. On 10/02/2019 patient is resting comfortably in chair family at bedside. Dr. ferrer per surgical services have been consulted for possible peritoneal dialysis catheter placement. This time patient denies chest pain or shortness of breath. Patient denies nausea vomiting or diarrhea. Patient denies any urinary burning or frequency. Stool for C. diff negative 10/03/2019 patient sitting comfortably in bedside chair. All questions answered to the possibility for both the family and patient. Patient awaiting to be eval uated by Dr. Cintron for possible peritoneal dialysis catheter placement. Patient reports no further episodes of diarrhea. Her stools are now formed. Stool for C. diff was negative. She was started on Rocephin for UTI. Urine culture says that specimen was unsuitable to please resubmit. A repeat urinalysis and culture will be ordered. Patient denies any chest pain or shortness of breath. She continues to report pain in her right hip. Objective - Vital Signs Vital signs: Vital Signs Temp 97.3 F L 10/03/19 11:21 Pulse 70 10/03/19 11:21 Resp 16 10/03/19 11:21 BP 111/68 10/03/19 11:21 Pulse Ox 100 10/03/19 11:21 Intake & Output 10/02/19 10/03/19 10/03/19 18:59 06:59 18:59 Intake Total 600 940 Balance 600 940 Weight 85.1 kg Intake: Intake, IV Titration 600 450 Amount Dextrose 5% in Water 1, 450 000 ml @ 50 mls/hr IV . Q23H EN[facility] with Sodium Bicarb (1 Meq/ml) 150 ml Rx#:[id number] Sodium Chloride 0.9% 1, 600 000 ml @ 75 mls/hr IV . [id number] ENID Rx#:[id number] Oral 490 Other: Voiding Method Toilet Toilet # Voids 2 1 2 # Bowel Movements 1 1 - Exam Head normocephalic Neck supple Lungs clear to auscultation bilaterally no wheezing or crackles Heart regular rate and rhythm S1-S2, no rub or gallop Abdomen is soft nontender nondistended positive bowel sounds no hepatosplenomegaly Extremities edema bilateral lower extremities Neuro alert and orientated to 3 - Labs CBC & Chem 7: 10/03/19 07:09 10/03/19 07:09 Labs: Abnormal Lab Results - Last 24 Hours (Table) 10/02/19 10/02/19 10/03/19 Range/Units 16:34 20:08 07:07 RBC (3.80-5.40) m/uL Hgb (11.4-16.0) gm/dL Hct (34.0-46.0) % MCV (80.0-100.0) fL MCH (25.0-35.0) pg RDW (11.5-15.5) % Plt Count (150-450) k/uL Macrocytosis Chloride (98-107) mmol/L Carbon Dioxide (22-30) mmol/L BUN (7-17) mg/dL Creatinine (0.52-1.04) mg/dL Glucose (74-99) mg/dL POC Glucose (mg/dL) 139 H 125 H 114 H (75-99) mg/dL Phosphorus (2.5-4.5) mg/dL Total Protein (6.3-8.2) g/dL Albumin (3.5-5.0) g/dL 10/03/19 10/03/19 10/03/19 Range/Units 07:09 07:09 11:26 RBC 2.84 L (3.80-5.40) m/uL Hgb 10.0 L (11.4-16.0) gm/dL Hct 32.2 L (34.0-46.0) % MCV 113.6 H (80.0-100.0) fL MCH 35.3 H (25.0-35.0) pg RDW 17.0 H (11.5-15.5) % Plt Count 149 L (150-450) k/uL Macrocytosis Marked A Chloride 109 H (98-107) mmol/L Carbon Dioxide 16 L (22-30) mmol/L BUN 106 H* (7-17) mg/dL Creatinine 3.08 H (0.52-1.04) mg/dL Glucose 110 H (74-99) mg/dL POC Glucose (mg/dL) 154 H (75-99) mg/dL Phosphorus 6.9 H (2.5-4.5) mg/dL Total Protein 5.9 L (6.3-8.2) g/dL Albumin 3.2 L (3.5-5.0) g/dL Microbiology - Last 24 Hours (Table) 10/01/19 01:30 Urine Culture - Final Urine,Voided Assessment and Plan Assessment: 1. Acute kidney injury: Worsening kidney function Likely secondary to diarrhea as well as patient being on diuretics. She is on torsemide and Zaroxolyn at home. We'll hold these medications until patient evaluated by nephrology. Creatinine is 3.34 and BUN 116 GFR 12 on admission. Renal ultrasound completed strengthening right kidney and incidental gallstones. Patient evaluated by nephrology. Creatinine is 3.08. 2. chronic kidney disease stage IV. Followed by Dr. Escobar. Patient evaluated by Dr. Cintron for possible peritoneal dialysis 3. Diarrhea: Now resolved. Stool for C. diff negative. 4. Metabolic acidosis: Associated with renal failure and diarrhea. Continue oral sodium bicarb and IV sodium bicarb 5. Hypokalemia secondary to diarrhea. Potassium level has normalized after replacement. 6. Hypomagnesemia: Magnesium level has normalized after replacement. 7. Hyperphosphatemia : Due to chronic kidney disease and mineral bone disorder. Nephrology is following. Patient is currently on PhosLo and Rocaltrol. 8. Leukocytosis possibly due to patient's diarrhea will monitor. Now resolved. Chest x-ray negative. UA pending. Patient denies any urinary symptoms. 9. Diabetes mellitus type 2: We'll resume patient's diabetes medications was reviewed and also will add sliding scale coverage. Check an A1c 10. History of chronic persistent atrial fibrillation anticoagulation with Xarelto 11. History of right lower extremity DVT maintained maintained on Xarelto also has [place] filter in place 12. History of chronic systolic CHF. Has a known EF of 30-35% 13. UTI: Patient currently on Rocephin. We'll repeat urinalysis with culture. 14. Severe osteoarthritis right hip. Patient reporting that Tylenol #3 is not controlling pain. We'll add Dilaudid 0.5 mg IV every 4 as needed for breakthrough pain 15. Anemia of chronic kidney disease DVT prophylaxis Xarelto I performed an examination of the patient and discussed their management with the physician Client Program Manager. I have reviewed the Physician Client Program Manager's notes and agree with the documented findings and plan of care
[2019-10-03] MEDS: METOPROLOL TARTRATE 25 MG TAB PO SCH ×2 (15:12→21:17)
[2019-10-03] MEDS: LINAGLIPTIN 5 MG TABLET PO SCH (15:12)
[2019-10-03 15:55] LABS: Amorphous Sediment,Urine Rare /hpf; Appearance,Urine Cloudy (Clear); Bacteria,Urine Many /hpf; Bilirubin,Urine Negative (Negative); Blood,Urine Small (Negative); Color,Urine Yellow; Glucose,Urine (UA) Negative (Negative); Ketones,Urine Negative (Negative); Leukocyte Esterase,Urine Large (Negative); Nitrite,Urine Negative (Negative); PH, Urine 5.5 (5.0-8.0); Protein,Urine Trace (Negative); RBC,Urine 2 /hpf (0-5); Specific Gravity,Urine 1.017 (1.001-1.035); Squamous Epithelial Cell,Urine 2 /hpf (0-4); Urobilinogen,Urine <2.0 mg/dL (<2.0); WBC,Urine >182 /hpf (0-5)
[2019-10-03 17:02] LABS: Hepatitis A Antibody IgM Non-Reactive (Non-Reactive); Hepatitis B Core IgM Non-Reactive (Non-Reactive); Hepatitis B Surface Antigen Non-Reactive (Non-Reactive); Hepatitis C IgG Antibody Non-Reactive (Non-Reactive)
[2019-10-03 17:28] LABS: Glucose,Whole Blood 132 mg/dL (75-99)
[2019-10-03 21:15] LABS: Glucose,Whole Blood 129 mg/dL (75-99)
[2019-10-03 22:35] VITALS: RESP 18
--- NOTE | 2019-10-03 22:59 | PN ---
PROGRESS NOTE Patient is seen for followup for CKD. She was evaluated by Dr. Vuong and it appears that she is not an ideal candidate for PD catheter placement. Therefore we will need to proceed with hemodialysis down the road. Patient does not need to start urgent dialysis this admission and she will see Vascular Surgery as outpatient upon discharge. Overall patient states she is feeling much better. No significant diarrhea, nausea, vomiting. Oral intake is somewhat improved. PHYSICAL EXAMINATION: On examination, blood pressure this morning was 111/68, heart rate 70 per minute. Patient is afebrile. EXAMINATION OF THE HEART: S1 and S2. EXAMINATION OF LUNGS: Decreased breath sounds at bases. ABDOMEN: Soft, non-tender, obese. Examination of lower extremities shows edema 1+ bilaterally. Chronic skin changes noted. NEIGHBORHOOD COORDINATOR exam is grossly intact. LABS: Sodium 139, potassium 4.6, chloride 109. CO2 is 16, BUN 106, serum creatinine 3.08, hemoglobin 10.0 g/dL. ASSESSMENT: 1. Chronic kidney disease, stage V. No indication to start dialysis this admission. Patient will follow up with Dr. Collado as outpatient for placement of an access in her arm. 2. Metabolic acidosis, maintained on oral sodium bicarb as well as IV bicarb. CO2 is improved. No ongoing diarrhea at this point. 3. Volume depletion on admission, now improved. Diuretics remain on hold. 4. Hypokalemia, maintained on supplementation. Hold potassium today and repeat labs in a.m. 5. Chronic kidney disease mineral bone disorder with hyperphosphatemia, maintained on phosphate binders, currently improving. PLAN: Repeat labs in a.m. Continue with the IV bicarb for now. Maintain good oral intake. Continue oral sodium bicarb as well. Patient will see Vascular Surgery as outpatient for AV fistula/AV graft placement, most likely an AV graft. MMODL / IJN: [id number] /
[2019-10-04 05:11] VITALS: BP 102/62; PULSE 78; TEMP 97.6
[2019-10-04 07:08] LABS: Glucose,Whole Blood 105 mg/dL (75-99)
[2019-10-04 08:41] LABS: Albumin 3.3 g/dL (3.5-5.0); Calcium 8.8 mg/dL (8.4-10.2); Phosphorus 6.2 mg/dL (2.5-4.5); Total Bilirubin 0.5 mg/dL (0.2-1.3); Total Protein 6.2 g/dL (6.3-8.2)
[2019-10-04 08:43] LABS: Anisocytosis Slight; HCT 33.6 % (34.0-46.0); HGB 10.7 gm/dL (11.4-16.0); MCH 35.9 pg (25.0-35.0); MCV 112.2 fL (80.0-100.0); Macrocytosis Marked; Mean Platelet Volume 9.9; Platelet Count 174 k/uL (150-450); RDW 17.1 % (11.5-15.5); WBC 9.2 k/uL (3.8-10.6)
[2019-10-04] MEDS: CALCIUM ACETATE 667 MG TAB PO SCH ×2 (08:50→12:56)
[2019-10-04] MEDS: SODIUM BICARBONATE TAB 650 MG TAB PO SCH (08:51)
[2019-10-04] MEDS: METOPROLOL TARTRATE 50 MG TAB PO SCH (08:51)
[2019-10-04] MEDS: FERROUS SULFATE 325 MG TAB PO SCH (08:51)
[2019-10-04] MEDS: CHOLECALCIFEROL 1,000 UNIT TAB PO SCH (08:51)
[2019-10-04] MEDS: CALCIUM POLYCARBOPHIL 625 MG TAB PO SCH (08:51)
[2019-10-04] MEDS: ISOSORBIDE MONONITRATE ER 60 MG TAB.ER.24H PO SCH (08:51)
[2019-10-04] MEDS: ALLOPURINOL 100 MG TAB PO SCH (08:51)
[2019-10-04] MEDS: RIVAROXABAN 10 MG TAB PO SCH (08:51)
[2019-10-04] MEDS: POTASSIUM CHLORIDE ER 10 MEQ TAB.ER.PRT PO SCH (08:51)
[2019-10-04] MEDS: PANTOPRAZOLE 40 MG TABLET PO SCH (08:51)
[2019-10-04] MEDS: MIDODRINE 5 MG TAB PO SCH (08:51)
[2019-10-04] MEDS: DOCUSATE 100 MG CAP PO SCH (08:51)
[2019-10-04] MEDS: SIMBRINZA BOTH EYES SCH (08:53)
[2019-10-04] MEDS: INSULIN ASPART (NovoLOG) 100 UNIT/ML VIAL SQ SCH ×2 (08:53→12:56)
[2019-10-04] MEDS: EYE BOTH EYES SCH (08:53)
[2019-10-04] MEDS: Acetaminophen-Codeine 300-30mg TAB PO PRN (09:10)
[2019-10-04 09:26] LABS: Eosinophils # (M) 0.28 k/uL (0-0.7); Lymphocytes # (M) 1.56 k/uL (1.0-4.8); Monocytes # (M) 0.37 k/uL (0-1.0); Neutrophils # (M) 7.08 k/uL (1.3-7.7); Neutrophils % (M) 77 %; Nucleated Red Blood Cells 0 /100 WBC (0-0); Total Cells Counted 200
[2019-10-04 09:30] LABS: Poikilocytosis (M) Present
[2019-10-04 11:20] LABS: Glucose,Whole Blood 214 mg/dL (75-99)
--- NOTE | 2019-10-04 12:12 | P.DS ---
Providers Date of admission: 09/30/19 14:26 Expected date of discharge: 10/04/19 Attending physician: Elyse Owen Consults: 09/30/19 14:38 Consult Physician Stat Consulting Provider: Hanna Escobar Consult Reason/Comments: Renal failure Do you want consulting provider notified?: Yes 10/02/19 12:14 Consult Physician Routine Consulting Provider: Teodoro Vuong Consult Reason/Comments: PD catheter Do you want consulting provider notified?: Yes Primary care physician: Elyse [facility] Course: Discharge diagnosis 1. Acute kidney injury: Worsening kidney function Likely secondary to diarrhea as well as patient being on diuretics. She is on torsemide and Zaroxolyn at home. We'll hold these medications until patient evaluated by nephrology. Creatinine is 3.34 and BUN 116 GFR 12 on admission. Renal ultrasound completed strengthening right kidney and incidental gallstones. Patient evaluated by nephrology. Creatinine improving to 2.86 and bun 100. Did discuss case with nephrology Dr. Escobar, patient may be discharged home. Plans for patient to follow-up with Dr. Collado outpatient to sustain hemodialysis access. Patient will follow up with nephrology 1 week. Per nephrology services patient will be D/C on increased dose of sodium bicarb and PhosLo. Patient Zaroxolyn will be DC'd at discharge Demadex changed to every 48 hours. 2. chronic kidney disease stage IV. Followed by Dr. Escobar. Patient evaluated by Dr. Cintron for possible peritoneal dialysis 3. Diarrhea: Now resolved. Stool for C. diff negative. 4. Metabolic acidosis: Associated with renal failure and diarrhea. She'll be DC'd on increased dose of sodium bicarb per nephrology 5. Hypokalemia secondary to diarrhea. Potassium level has normalized after replacement. 6. Hypomagnesemia: Magnesium level has normalized after replacement. 7. Hyperphosphatemia : Due to chronic kidney disease and mineral bone disorder. Nephrology is following. Patient is currently on PhosLo and Rocaltrol. 8. Leukocytosis possibly due to patient's diarrhea will monitor. Now resolved. Chest x-ray negative. UA pending. Patient denies any urinary symptoms. 9. Diabetes mellitus type 2: We'll resume patient's diabetes medications was reviewed and also will add sliding scale coverage. Check an A1c 10. History of chronic persistent atrial fibrillation anticoagulation with Xarelto 11. History of right lower extremity DVT maintained maintained on Xarelto also has [place] filter in place 12. History of chronic systolic CHF. Has a known EF of 30-35% 13. UTI: Patient currently on Rocephin. We'll repeat urinalysis with culture. Patient will be DC'd on Ceftin for one week 14. Severe osteoarthritis right hip. Patient reporting that Tylenol #3 is not controlling pain. We'll add Dilaudid 0.5 mg IV every 4 as needed for breakthrough pain 15. Anemia of chronic kidney disease Hospital course This is a 84-year-old female with a known history of chronic kidney disease stage IV, atrial fibrillation anticoagulated Xarelto, congestive heart failure, diabetes mellitus, right leg DVT with [place] filter and is also on Xarelto, hypertension and uterine cancer. Patient presents to the emergency room with a chief complaint of abnormal labs. Patient reports that her PCP had drawn blood work in the office on Monday and her kidney functions have worsened. Patient reports going into the office because she had been having diarrhea for about 4 days. Patient has been having loose watery stools multiple stools throughout the day. I did stools are starting to become less watery. Potassium is 3.3 magnesium is 0.8 phosphorus 8.8 creatinine is 3.3 for BUN 116 white count 11.6 CO2 16. Patient's potassium and magnesium are being replaced. She's been placed on normal saline 75 mL an hour. Nephrology had been recommending that patient be placed on dialysis. Patient initially had been refusing dialysis. She sees Dr. Escobar in the office. At this time patient is reconsidering being placed on dialysis. She is scheduled for kidney ultrasound. We'll await evaluation by Dr. Bernal. Patient is on torsemide and Zaroxolyn at home. Patient has been having weight gain and lower extremity edema. She has some shortness of breath. Chest x-ray was negative. Patient reports urinating without difficulty. Patient had been on antibiotics for UTI couple weeks ago. Patient also has been around sick family contacts with diarrhea. 10/01/2019 patient sitting at bedside chair. She is complaining of her right hip pain. She reports having severe osteoarthritis in that right hip and the Tylenol #3 are not lasting long enough. Patient reports still having diarrhea. Stool for C. diff is pending. Urinalysis is showing some evidence of a UTI. We'll hold off on starting any antibiotics until we have the C. diff results back. Creatinine has come down from 3.34-3.12. Phosphorus is 9.3. Potassium and magnesium are both low and being replaced. Patient did have a kidney ultrasound completed showing renal parenchymal thinning of the right kidney. Poor visualization of the left kidney. Incidental gallstones. Patient denies any abdominal pain. Denies any nausea or vomiting. Denies any chest pain or shortness of breath. Denies any difficulty urinating. On 10/02/2019 patient is resting comfortably in chair family at bedside. Dr. ferrer per surgical services have been consulted for possible peritoneal dialysis catheter placement. This time patient denies chest pain or shortness of breath. Patient denies nausea vomiting or diarrhea. Patient denies any urinary burning or frequency. Stool for C. diff negative 10/03/2019 patient sitting comfortably in bedside chair. All questions answered to the possibility for both the family and patient. Patient awaiting to be evaluated by Dr. Cintron for possible peritoneal dialysis catheter placement. Patient reports no further episodes of diarrhea. Her stools are now formed. Stool for C. diff was negative. She was started on Rocephin for UTI. Urine culture says that specimen was unsuitable to please resubmit. A repeat urinalysis and culture will be ordered. Patient denies any chest pain or shortness of breath. She continues to report pain in her right hip. On 10/04/2019 patient is alert and oriented 3 daughter at bedside. Patient was evaluated by surgical services not a surgical candidate for peritoneal dialysis. Discussed case with religion instructor Dr. Escobar. Patient may be discharged home and follow-up outpatient with Dr. Collado to achieve vascular access for hemodialysis. Per nephrology patient does not require inpatient hemodialysis at this time. Patient has been cleared for discharge from nephrology standpoint. Patient will be DC'd on increased dose of sodium bicarb and PhosLo. Zaroxolyn to be held at discharge and Demadex decreased to every 48 hours per nephrology. Patient will follow-up with nephrology services in 1 week. At this time patient denies chest pain or shortness of breath. Patient denies nausea vomiting or diarrhea. Patient denies any urinary burning or frequency. Patient will be DC'd on Ceftin for one week current urine culture is pending. I performed an examination of the patient and discussed their management with the Nurse Practitioner. I have reviewed the Nurse Practitioner's notes and agree with the documented findings and plan of care Patient Condition at Discharge: Stable Plan - Discharge Summary New Discharge Prescriptions: New Cefuroxime Axetil [Ceftin] 500 mg PO BID 7 Days #14 tab Calcium Acetate [PhosLo] 1,334 mg PO TID-W/MEALS 30 Days #180 tab Sodium Bicarbonate Tab 1,300 mg PO TID 30 Days #180 tab Continue Linagliptin [Tradjenta] 5 mg PO DAILY@1500 Allopurinol [Zyloprim] 200 mg PO DAILY@0800 Omeprazole [PriLOSEC] 20 mg PO DAILY@0700 Docusate Sodium [Stool Softener] 100 mg PO BID@0900,1999 Garlic 1 tab PO BID Calcitriol 0.25 mcg PO SUTUTHSA@0800 Brinzolamide/Brimonidine Tart [Simbrinza 1%-0.2% Eye Drops] 1 drop BOTH EYES BID@0700,1999 Vit C/E/Zn/Coppr/Lutein/Zeaxan [Preservision Areds 2 Softgel] 1 cap PO BID@0900,2000 Ferrous Sulfate [Feosol] 325 mg PO DAILY@0800 Cholecalciferol (Vitamin D3) [Vitamin D3] 2,000 unit PO DAILY@0800 Wheat Dextrin [Benefiber] 1 packet PO BID@0800,2000 Isosorbide Mononitrate ER [Imdur] 60 mg PO DAILY@0800 Rivaroxaban [Xarelto] 10 mg PO DAILY@0800 Midodrine [ProAmatine] 10 mg PO TID@0700,1500,2300 Metoprolol Tartrate [Lopressor] 25 mg PO DAILY@1500 Ondansetron [Zofran] 4 mg PO Q12H PRN PRN Reason: Nausea Metoprolol Tartrate [Lopressor] 50 mg PO BID@0700,2300 Potassium Chloride ER [K-Dur 10] 60 meq PO BID@0800,1500 Acetaminophen-Codeine 300-30mg [Tylenol w/codeine #3] 1 tab PO Q6H PRN PRN Reason: Pain Changed Torsemide [Demadex] 20 mg PO Q48H #0 Discontinued Metolazone [Zaroxolyn] 5 mg PO DAILY PRN PRN Reason: Edema Sodium Bicarbonate Tab 650 mg PO BID@0800,1500 Discharge Medication List Allopurinol [Zyloprim] 200 mg PO DAILY@0801/22/14 [History] Linagliptin [Tradjenta] 5 mg PO DAILY@1500 01/22/14 [History] Omeprazole [PriLOSEC] 20 mg PO DAILY@0701/22/14 [History] Docusate Sodium [Stool Softener] 100 mg PO BID@09,199902/22/14 [History] Garlic 1 tab PO BID 02/22/14 [History] Calcitriol 0.25 mcg PO SUTUTHSA@0800 08/22/14 [History] Brinzolamide/Brimonidine Tart [Simbrinza 1%-0.2% Eye Drops] 1 drop BOTH EYES BID@699,199905/11/17 [History] Vit C/E/Zn/Coppr/Lutein/Zeaxan [Preservision Areds 2 Softgel] 1 cap PO BID@09,199912/03/17 [History] Ferrous Sulfate [Feosol] 325 mg PO DAILY@0801/11/18 [History] Cholecalciferol (Vitamin D3) [Vitamin D3] 2,000 unit PO DAILY@79902/10/18 [History] Isosorbide Mononitrate ER [Imdur] 60 mg PO DAILY@0802/10/18 [History] Wheat Dextrin [Benefiber] 1 packet PO BID@799,199902/10/18 [History] Midodrine [ProAmatine] 10 mg PO TID@0700,1500,2300 04/10/18 [History] Rivaroxaban [Xarelto] 10 mg PO DAILY@0800 04/10/18 [History] Metoprolol Tartrate [Lopressor] 25 mg PO DAILY@1500 06/15/18 [History] Metoprolol Tartrate [Lopressor] 50 mg PO BID@0700,2300 09/18/18 [History] Ondansetron [Zofran] 4 mg PO Q12H PRN 09/18/18 [History] Potassium Chloride ER [K-Dur 10] 60 meq PO BID@0800,1500 04/02/19 [History] Acetaminophen-Codeine 300-30mg [Tylenol w/codeine #3] 1 tab PO Q6H PRN 09/30/19 [History] Calcium Acetate [PhosLo] 1,334 mg PO TID-W/MEALS 30 Days #180 tab 10/04/19 [Rx] Cefuroxime Axetil [Ceftin] 500 mg PO BID 7 Days #14 tab 10/04/19 [Rx] Sodium Bicarbonate Tab 1,300 mg PO TID 30 Days #180 tab 10/04/19 [Rx] Torsemide [Demadex] 20 mg PO Q48H #0 10/04/19 [Rx] Follow up Appointment(s)/Referral(s): Elyse Owen MD [Primary Care Provider] - 1-2 days Sandip Collado MD [STAFF PHYSICIAN] - 1 Week Hanna Escobar MD [STAFF PHYSICIAN] - 1 Week Activity/Diet/Wound Care/Special Instructions: Activity as tolerated Diet heart healthy Discharge Disposition: HOME SELF-CARE
--- NOTE | 2019-10-04 16:51 | PN ---
PROGRESS NOTE Patient is seen for followup for CKD. Overall, patient feels well. She will be discharged today. She will follow up as outpatient with Vascular Surgery for placement of an AV fistula versus AV graft to start renal replacement therapy as outpatient. PHYSICAL EXAMINATION: On examination, blood pressure is 102/62, heart rate 78 per minute. She is afebrile. EXAMINATION OF THE HEART: S1 and S2. EXAMINATION OF LUNGS: Bilateral breath sounds are heard. ABDOMEN: Soft, non-tender. Examination of lower extremities shows edema 1+ bilaterally. SENIOR SALES ADMINISTRATOR exam is grossly intact. LABS: Labs show sodium 138, potassium 4.0. CO2 is 15, BUN 100, serum creatinine 2.86, hemoglobin 10.7 g/dL. ASSESSMENT: 1. Chronic kidney disease, stage V, secondary to nephrosclerosis and diabetic kidney disease. Initially patient had been refusing renal replacement therapy. However, she has decided to proceed with dialysis and she will be seeing Vascular Surgery as outpatient. 2. Hypokalemia, currently improved. 3. Volume depletion, now improved. 4. Metabolic acidosis, maintained on oral sodium bicarb, status post IV bicarb as well. PLAN: Patient can be discharged. Follow up with Vascular Surgery as outpatient. She should continue with oral sodium bicarb, PhosLo and the Demadex should be every other day. We will see her in the office in about one week's time. MMODL / IJN: [id number] /
== END 2019-10-04 14:19 | disposition home or self-care (01) | DRG 683 ==
LOC: EC 12:15 → 5NMEDONC 14:26
PROVIDERS: ADMIT Internal Medicine; ATTEND Internal Medicine
DX: N17.9 Acute kidney failure, unspecified (principal); E87.2 Acidosis; I13.2 Hypertensive heart and chronic kidney disease with heart failure and with stage 5 chronic kidney disease, or end stage renal disease; I50.22 Chronic systolic (congestive) heart failure; I48.19 Other persistent atrial fibrillation; N39.0 Urinary tract infection, site not specified; I25.10 Atherosclerotic heart disease of native coronary artery without angina pectoris; K21.9 Gastro-esophageal reflux disease without esophagitis; Z96.642 Presence of left artificial hip joint; R19.7 Diarrhea, unspecified; E83.42 Hypomagnesemia; E83.39 Other disorders of phosphorus metabolism; E87.6 Hypokalemia; E86.9 Volume depletion, unspecified; E11.22 Type 2 diabetes mellitus with diabetic chronic kidney disease; D63.1 Anemia in chronic kidney disease; N18.5 Chronic kidney disease, stage 5; N25.0 Renal osteodystrophy; K80.20 Calculus of gallbladder without cholecystitis without obstruction; M16.11 Unilateral primary osteoarthritis, right hip; R53.81 Other malaise; Z86.19 Personal history of other infectious and parasitic diseases; Z95.828 Presence of other vascular implants and grafts; Z86.718 Personal history of other venous thrombosis and embolism; Z90.49 Acquired absence of other specified parts of digestive tract; Z90.710 Acquired absence of both cervix and uterus; Z79.01 Long term (current) use of anticoagulants; Z79.84 Long term (current) use of oral hypoglycemic drugs; Z87.891 Personal history of nicotine dependence; Z83.3 Family history of diabetes mellitus; Z83.6 Family history of other diseases of the respiratory system; Z87.440 Personal history of urinary (tract) infections; Z85.42 Personal history of malignant neoplasm of other parts of uterus; Z79.899 Other long term (current) drug therapy; Z88.5 Allergy status to narcotic agent; Z88.8 Allergy status to other drugs, medicaments and biological substances; Z91.048 Other nonmedicinal substance allergy status; Z91.15 Patient's noncompliance with renal dialysis
CPT/HCPCS: 36415; 71046; 76770; 80053; 80074; 81001; 83036; 83735; 84100; 84132; 85025; 87086; 87324; 96365; 96375; 99291

== ENCOUNTER 2019-10-06 05:09 | Inpatient (IN) | payer MEDICARE, BC ==
--- NOTE | 2019-10-06 05:45 | ED ---
Chest Pain HPI - General Chief Complaint: Chest Pain Stated Complaint: Chest pain Time Seen by Provider: 10/06/19 05:11 Source: EMS Mode of arrival: EMS Limitations: no limitations - History of Present Illness Initial Comments: Trina is a pleasant 84-year-old female who was recently admitted to the hospital for congestive heart failure. Patient subsequently discharged home on October 04. Patient reports she's was doing well until she woke this morning with pain in the left side of her chest. Patient describes it as being just below her breast. Pain is sharp in nature and radiates to her left shoulder and left arm. Pain seems to improve with direct pressure over the ribs. Pain is not associated with any diaphoresis lightheadedness or shortness of breath. Patient reports no fevers chills nausea or vomiting. Patient states that when she presented to the hospital last week she was feeling well but after spending a full week in the hospital she feels worse and more tired now than she did before she ever came. - Related Data Home Medications Medication Instructions Recorded Confirmed Allopurinol [Zyloprim] 200 mg PO DAILY@79901/22/14 09/30/19 Linagliptin [Tradjenta] 5 mg PO DAILY@149901/22/14 09/30/19 Omeprazole [PriLOSEC] 20 mg PO DAILY@69901/22/14 09/30/19 Docusate Sodium [Stool Softener] 100 mg PO BID@02/22/14 09/30/19 Garlic 1 tab PO BID 02/22/14 09/30/19 Calcitriol 0.25 mcg PO SUTUTHSA@79908/22/14 09/30/19 Brinzolamide/Brimonidine Tart 1 drop BOTH EYES BID@05/11/17 09/30/19 [Simbrinza 1%-0.2% Eye Drops] Vit C/E/Zn/Coppr/Lutein/Zeaxan 1 cap PO BID@899,199912/03/17 09/30/19 [Preservision Areds 2 Softgel] Ferrous Sulfate [Feosol] 325 mg PO DAILY@79901/11/18 09/30/19 Cholecalciferol (Vitamin D3) 2,000 unit PO DAILY@79902/10/18 09/30/19 [Vitamin D3] Isosorbide Mononitrate ER [Imdur] 60 mg PO DAILY@0800 02/10/18 09/30/19 Wheat Dextrin [Benefiber] 1 packet PO BID@0800,2000 02/10/18 09/30/19 Midodrine [ProAmatine] 10 mg PO TID@0700,1500,2300 04/10/18 09/30/19 Rivaroxaban [Xarelto] 10 mg PO DAILY@0800 04/10/18 09/30/19 Metoprolol Tartrate [Lopressor] 25 mg PO DAILY@1500 06/15/18 09/30/19 Metoprolol Tartrate [Lopressor] 50 mg PO BID@0700,2300 09/18/18 09/30/19 Ondansetron [Zofran] 4 mg PO Q12H PRN 09/18/18 09/30/19 Potassium Chloride ER [K-Dur 10] 60 meq PO BID@0800,1500 04/02/19 09/30/19 Acetaminophen-Codeine 300-30mg 1 tab PO Q6H PRN 09/30/19 09/30/19 [Tylenol w/codeine #3] Previous Rx's Medication Instructions Recorded Calcium Acetate [PhosLo] 1,334 mg PO TID-W/MEALS 30 Days 10/04/19 #180 tab Cefuroxime Axetil [Ceftin] 500 mg PO BID 7 Days #14 tab 10/04/19 Sodium Bicarbonate Tab 1,300 mg PO TID 30 Days #180 tab 10/04/19 Torsemide [Demadex] 20 mg PO Q48H #0 10/04/19 Allergies Allergy/AdvReac Type Severity Reaction Status Date / Time atorvastatin calcium Allergy Unknown Verified 10/06/19 05:16 [From Lipitor] codeine Allergy Unknown Verified 10/06/19 05:16 [From Tylenol-Codeine #3] adhesive tape AdvReac Intermediate Unknown Verified 10/06/19 05:16 hydrocodone AdvReac Vomiting Verified 10/06/19 05:16 Review of Systems ROS Statement: Those systems with pertinent positive or pertinent negative responses have been documented in the HPI. ROS Other: All systems not noted in ROS Statement are negative. EKG Findings - EKG Comments: EKG Findings:: KG was obtained due to shortness of breath, EKG was obtained at 5:18 AM, rate is 93 rhythm is A. fib, rightward axis normal intervals, QRS [address]Tc [address] elevations or depressions or evidence of acute ischemia or infarction. Past Medical History Past Medical History: Atrial Fibrillation, Coronary Artery Disease (CAD), Cancer, Heart Failure, Diabetes Mellitus, Deep Vein Thrombosis (DVT), Eye Disorder, GERD/Reflux, Hypertension, Renal Disease Additional Past Medical History / Comment(s): Macular Degeneration and glaucoma, gallstones, stage 4 kidney failure, hx Uterine & groin CA; WEARS BILAT THIGH HIGH HOSE, uses cane or walker, patient states she has "2 blood clots in right groin since 2003" family states now clot is "through the whole leg", CHF, rt hip bone and bone History of Any Multi-Drug Resistant Organisms: ESBL, VRE Date of last positivie culture/infection: 02/11/19 ESBL E.Coli; 09/29/13 VRE MDRO Source:: UNKNOWN Past Surgical History: Appendectomy, Bowel Resection, Hysterectomy, Joint Replacement Additional Past Surgical History / Comment(s): gastrointestinal surgery for isabella wel obstruction. left hip replacement, LEFT breast biopsy, darcy filter rt leg, biopsy of right nostril, biopsy rt breast Past Anesthesia/Blood Transfusion Reactions: No Reported Reaction Past Psychological History: No Psychological Hx Reported Smoking Status: Former smoker Past Alcohol Use History: None Reported Past Drug Use History: None Reported - Past Family History Mother Family Medical History: No Reported History Additional Family Medical History / Comment(s): Family states pt's mother " of pneumonia". Father Family Medical History: Diabetes Mellitus General Exam - General Exam Comments Initial Comments: Physical Exam GENERAL: Chronically ill appearing, elderly female HENT: Normocephalic, Atraumatic. EYES: PERRL, EOMI Mild conjunctival pallor PULMONARY: Crackles at bases CARDIOVASCULAR: Irregular systolic murmur ABDOMEN: Soft and nontender with normal bowel sounds. SKIN: Pale Dry : Deferred NEUROLOGIC: Patient is alert and oriented x3. Moving all extremities spontaneously MUSCULOSKELETAL: 3+ pitting edema bilateral lower extremities PSYCHIATRIC: Normal psychiatric evaluation. Limitations: no limitations Course Vital Signs 10/06/19 10/06/19 05:14 07:01 Temperature 97.8 F Pulse Rate 80 88 Respiratory 18 16 Rate Blood Pressure 133/69 107/65 O2 Sat by Pulse 97 98 Oximetry Chest Pain MDM - MDM The patient was seen and evaluated upon arrival history is obtained from patient and EMS as well as review of medical record 84-year-old female recently admitted for acute on chronic kidney disease and likely CHF, patient presents back to the ER today for sudden left-sided chest pain. Seems to be pleuritic in nature and not positional. Not reproducible. Labs and imaging were obtained Labs are consistent with chronic kidney disease, congestive heart failure Given the patient's history of DVT in the past with current left-sided pleuritic chest pain there is concern for possible pulmonary embolism therefore patient will be admitted for a VQ scan and pain management as well as for treatment of heart failure with aggressive diuresis. Patient care was discussed with the admitting physician Dr. Owen is very familiar with this patient agrees with plan and accepts admission. Disposition Clinical Impression: Heart failure, Dyspnea, Chest pain, Persistent atrial fibrillation, Type 2 diabetes mellitus, Acute on chronic systolic CHF (congestive heart failure), Congestive heart failure (CHF) Disposition: ADMITTED IP TO THIS HOSP Condition: Serious Referrals: Elyse Owen MD [Primary Care Provider] - 1-2 days
[2019-10-06 05:58] LABS: Anisocytosis Slight; Basophils % (A) 0 %; Eosinophils # (A) 0.2 k/uL (0-0.7); Eosinophils % (A) 2 %; HCT 33.1 % (34.0-46.0); HGB 10.5 gm/dL (11.4-16.0); Hypochromasia Slight; Lymphocytes # (A) 0.8 k/uL (1.0-4.8); Lymphocytes % (A) 9 %; MCH 35.8 pg (25.0-35.0); MCHC 31.8 g/dL (31.0-37.0); MCV 112.4 fL (80.0-100.0); Macrocytosis Marked; Monocytes # (A) 0.5 k/uL (0-1.0); Monocytes % (A) 5 %; Neutrophils # (A) 7.4 k/uL (1.3-7.7); Neutrophils % (A) 81 %; Platelet Count 156 k/uL (150-450); RBC 2.95 m/uL (3.80-5.40); RDW 17.2 % (11.5-15.5); WBC 9.2 k/uL (3.8-10.6)
--- NOTE | 2019-10-06 06:03 | XR ---
EXAM: XR Chest, 2 Views CLINICAL HISTORY: Chest pain. TECHNIQUE: Frontal and lateral views of the chest. COMPARISON: 09/30/2019. FINDINGS: Lungs: Scarring at the left midlung is suggested. Pleural space: Unremarkable. No pneumothorax. Heart: There is cardiomegaly. Mediastinum: Unremarkable. Bones/joints: Osteopenia. Lymph nodes: There is prominence of the right hilum. Etiology such as lymphadenopathy cannot be excluded. Other findings: There is hypoaeration. IMPRESSION: Hypoaeration. Cardiomegaly. Prominence of the right hilum. Etiology such as lymphadenopathy cannot be excluded. CT imaging of the chest with contrast administration is highly advised to follow-up.
[2019-10-06 06:05] LABS: INR 1.3 (<1.2); Prothrombin Time 12.9 sec (9.0-12.0)
[2019-10-06 06:12] LABS: Albumin 3.3 g/dL (3.5-5.0); Calcium 8.9 mg/dL (8.4-10.2); Magnesium 1.6 mg/dL (1.6-2.3); Potassium 4.6 mmol/L (3.5-5.1); Total Bilirubin 0.6 mg/dL (0.2-1.3); Total Protein 6.3 g/dL (6.3-8.2)
[2019-10-06 06:22] LABS: Polychromasia Present; Target Cells Present
[2019-10-06] MEDS ORDERED: HYDROmorphone 1 MG/ML 1 ML SYRINGE IVP STA (07:00)
--- NOTE | 2019-10-06 09:28 | NM ---
EXAMINATION TYPE: NM pul vent and perfuse DATE OF EXAM: 10/06/2019 COMPARISON: Previous study dated 12/03/2017. HISTORY: Chest pain and difficulty breathing. TECHNIQUE: Utilizing inhalation of 36.3 mCi Tc 99m DTPA aerosol and intravenous injection of 4.37 mC i of Tc 99m MAA, ventilation and perfusion images are acquired post injection in multiple projections . FINDINGS: There are matched defects throughout both lungs. No VQ mismatches are seen. [facility]. IMPRESSION: THIS EXAMINATION IS INTERMEDIATE PROBABILITY FOR PULMONARY EMBOLUS.
[2019-10-06 12:24] LABS: Glucose,Whole Blood 111 mg/dL (75-99)
[2019-10-06] MEDS ORDERED: TORSEMIDE 20 MG TAB PO SCH (14:15)
[2019-10-06] MEDS: SODIUM BICARBONATE TAB 650 MG TAB PO SCH ×2 (14:36→21:39)
[2019-10-06] MEDS: POTASSIUM CHLORIDE ER 10 MEQ TAB.ER.PRT PO SCH (14:36)
[2019-10-06] MEDS: Acetaminophen-Codeine 300-30mg TAB PO SCH ×2 (14:36→21:40)
[2019-10-06] MEDS: MIDODRINE 5 MG TAB PO SCH ×2 (14:36→21:39)
[2019-10-06] MEDS: HYDROmorphone 0.5 MG/0.5 ML SYRINGE IVP PRN ×2 (14:37→23:25)
[2019-10-06] MEDS: LINAGLIPTIN 5 MG TABLET PO SCH (14:37)
[2019-10-06] MEDS: METOPROLOL TARTRATE 25 MG TAB PO SCH ×2 (14:37→21:39)
--- NOTE | 2019-10-06 15:23 | P.CNPUL ---
History of Present Illness Reason for consult: dyspnea Chief complaint: Chest pain started since morning left-sided History of present illness: This is a 84-year-old female with chronic atrial fibrillation well-known to me patient has been on chronic long-term lifelong anticoagulation she has chronic atrial fibrillation small pleural effusion, she has a congestive heart failure due to that, patient this morning woke up with chronic stable shortness of breath and some left-sided chest pain improved with applying pressure, came into emergency department, patient has been recently discharged from the hospital yesterday, patient underwent a chest x-ray revealed prominent right hilum and cardiomegaly no pleural effusion seen, VQ scan shows matching defects, labs significant for elevated BUN/creatinine of 96 and 2.87, BNP is over 15,000, Review of Systems All systems: negative Past Medical History Past Medical History: Atrial Fibrillation, Coronary Artery Disease (CAD), Cancer, Heart Failure, Diabetes Mellitus, Deep Vein Thrombosis (DVT), Eye Disorder, GERD/Reflux, Hypertension, Renal Disease Additional Past Medical History / Comment(s): Macular Degeneration and glaucoma, gallstones, stage 4 kidney failure, hx Uterine & groin CA; WEARS BILAT THIGH HIGH HOSE, uses cane or walker, patient states she has "2 blood clots in right groin since 2003" family states now clot is "through the whole leg", CHF, rt hip bone and bone History of Any Multi-Drug Resistant Organisms: ESBL, VRE Date of last positivie culture/infection: 02/11/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 left hip replacement, LEFT breast biopsy, darcy filter rt leg, biopsy of right nostril, biopsy rt breast Past Anesthesia/Blood Transfusion Reactions: No Reported Reaction Past Psychological History: No Psychological Hx Reported Smoking Status: Former smoker Past Alcohol Use History: None Reported Additional Past Alcohol Use History / Comment(s): smoked 1 pkg from 2 to 1971 Past Drug Use History: None Reported - Past Family History Mother Family Medical History: No Reported History Additional Family Medical History / Comment(s): Family states pt's mother " of pneumonia". Father Family Medical History: Diabetes Mellitus Medications and Allergies Home Medications Medication Instructions Recorded Confirmed Type Allopurinol [Zyloprim] 200 mg PO DAILY@0800 01/22/14 10/06/19 History Linagliptin [Tradjenta] 5 mg PO DAILY@1500 01/22/14 10/06/19 History Omeprazole [PriLOSEC] 20 mg PO DAILY@0701/22/14 10/06/19 History Docusate Sodium [Stool Softener] 100 mg PO BID@899,199902/22/14 10/06/19 History Garlic 1 tab PO BID@09,199902/22/14 10/06/19 History Calcitriol 0.25 mcg PO SUTUTHSA@79908/22/14 10/06/19 History Brinzolamide/Brimonidine Tart 1 drop BOTH EYES BID@699,199905/11/17 10/06/19 History [Simbrinza 1%-0.2% Eye Drops] Vit C/E/Zn/Coppr/Lutein/Zeaxan 1 cap PO BID@899,199912/03/17 10/06/19 History [Preservision Areds 2 Softgel] Ferrous Sulfate [Feosol] 325 mg PO DAILY@0801/11/18 10/06/19 History Cholecalciferol (Vitamin D3) 2,000 unit PO DAILY@79902/10/18 10/06/19 History [Vitamin D3] Isosorbide Mononitrate ER [Imdur] 60 mg PO DAILY@0802/10/18 10/06/19 History Wheat Dextrin [Benefiber] 1 packet PO BID@799,199902/10/18 10/06/19 History Midodrine [ProAmatine] 10 mg PO TID@0700,1500,2300 04/10/18 10/06/19 History Rivaroxaban [Xarelto] 10 mg PO DAILY@0800 04/10/18 10/06/19 History Metoprolol Tartrate [Lopressor] 25 mg PO DAILY@1500 06/15/18 10/06/19 History Metoprolol Tartrate [Lopressor] 50 mg PO BID@0700,2300 09/18/18 10/06/19 History Ondansetron [Zofran] 4 mg PO Q12H PRN 09/18/18 10/06/19 History Potassium Chloride ER [K-Dur 10] 30 meq PO BID@0800,1500 04/02/19 10/06/19 H istory Acetaminophen-Codeine 300-30mg 1 tab PO Q6H PRN 09/30/19 10/06/19 History [Tylenol w/codeine #3] Calcium Acetate [PhosLo] 1,334 mg PO TID-W/MEALS 30 Days 10/04/19 10/06/19 Rx #180 tab Torsemide [Demadex] 20 mg PO Q48H #0 10/04/19 10/06/19 Rx Cefuroxime Axetil [Ceftin] 500 mg PO BID@0800,2000 10/06/19 10/06/19 History Sodium Bicarbonate Tab 1,300 mg PO TID@0800,1500,209910/06/19 10/06/19 History Allergies Allergy/AdvReac Type Severity Reaction Status Date / Time atorvastatin calcium Allergy Unknown Verified 10/06/19 12:05 [From Lipitor] codeine Allergy Unknown Verified 10/06/19 12:05 [From Tylenol-Codeine #3] adhesive tape AdvReac Intermediate Unknown Verified 10/06/19 12:05 hydrocodone AdvReac Vomiting Verified 10/06/19 12:05 Physical Exam Vitals: Vital Signs Temp Pulse Pulse Resp BP BP Pulse Ox 10/06/19 10:00 88 20 10/06/19 09:38 97.4 F L 88 20 121/60 98 10/06/19 09:36 97.4 F L 88 20 121/60 98 10/06/19 08:00 97.8 F 82 15 105/66 96 10/06/19 07:01 88 16 107/65 98 10/06/19 07:00 86 16 107/65 98 10/06/19 05:14 97.8 F 80 18 133/69 97 Intake and Output 10/06/19 10/06/19 10/06/19 06:59 14:59 22:59 Other: Voiding Method Incontinent Weight 81.647 kg 81.647 kg - Constitutional General appearance: average body habitus, disheveled, no acute distress - EENT Eyes: EOMI, PERRLA Ears: bilateral: normal - Neck Carotids: bilateral: upstroke normal - Respiratory Respiratory: bilateral: CTA - Cardiovascular Rhythm: regular Heart sounds: normal: S1, S2 - Gastrointestinal General gastrointestinal: decreased bowel sounds - Neurologic Neurologic: CNII-XII intact - Musculoskeletal Musculoskeletal: gait normal, generalized weakness, strength equal bilaterally - Psychiatric Psychiatric: A&O x's 3, appropriate affect, intact judgment & insight Results - Laboratory Findings CBC and BMP: 10/06/19 05:41 10/06/19 05:41 PT/INR, D-dimer PT 12.9 sec (9.0-12.0) H 10/06/19 05:41 INR 1.3 (<1.2) H 10/06/19 05:41 Abnormal lab findings: Abnormal Labs 10/06/19 10/06/19 10/06/19 05:41 05:41 05:41 RBC 2.95 L Hgb 10.5 L Hct 33.1 L MCV 112.4 H MCH 35.8 H RDW 17.2 H Lymphocytes # 0.8 L Macrocytosis Marked A PT 12.9 H INR 1.3 H APTT 38.0 H Chloride 108 H Carbon Dioxide 19 L BUN 96 H Creatinine 2.87 H Glucose 118 H POC Glucose (mg/dL) Albumin 3.3 L 10/06/19 12:15 RBC Hgb Hct MCV MCH RDW Lymphocytes # Macrocytosis PT INR APTT Chloride Carbon Dioxide BUN Creatinine Glucose POC Glucose (mg/dL) 111 H Albumin - Diagnostic Findings Chest x-ray: report reviewed, image reviewed Additional studies: Finding as noted above Assessment and Plan Assessment: Atypical chest pain Abnormal x-ray with hilar fullness Chronic atrial fibrillation on lifelong anticoagulation with his Xarelto Indeterminate VQ scan less likely PE Chronic renal failure Plan: Continue anticoagulation Check duplex ultrasound of both lower extremity Follow clinical course closely We'll monitor renal function closely if they improve we'll do a computed tomography scan of the chest
--- NOTE | 2019-10-06 16:27 | P.HPIM ---
History of Present Illness H&P Date: 10/06/19 Trina Carrillo, he is an 84-year-old female who was recently discharged from [facility], who presented to emergency room was a chief complaint of worsening shortness of breath, sharp pain in the chest, and significant swelling in the bilateral lower extremity, [facility] and was admitted to telemetry floor for further evaluation and treatment BNP was elevated at 15,800 patient has known history of chronic renal failure with elevated BUN and creatinine she was evaluated by nephrology last admission and decision was made to start hemodialysis soon however patient condition deteriorated fast and patient and her family decided to return to emergency room. Due to shortness of breath patient had a VQ scan done in the emergency room, there was no clear evidence of any pulmonary embolism, there was matching ventilation and perfusion defects and the scan was read as intermediate probability for pulmonary embolus. Consultation for cardiology, pulmonary, nephrology were initiated in the emergency room. Patient was seen and examined on the telemetry floor, she is alert and oriented 3 in no apparent distress, at this time her chest pain has resolved and her shortness of breath has improved, she is still having significant bilateral lower extremity edema, otherwise she denies any complaints there is no fever or chills no headache or dizziness no chest pain, no cough no nausea or vomiting no abdominal pain no diarrhea no burning with urination no frequency or urgency no hematuria. Past Medical History Past Medical History: Atrial Fibrillation, Coronary Artery Disease (CAD), Cancer, Heart Failure, Diabetes Mellitus, Deep Vein Thrombosis (DVT), Eye Disorder, GERD/Reflux, Hypertension, Renal Disease Additional Past Medical History / Comment(s): Macular Degeneration and glaucoma, gallstones, stage 4 kidney failure, hx Uterine & groin CA; WEARS BILAT THIGH HIGH HOSE, uses cane or walker, patient states she has "2 blood clots in right groin since 2003" family states now clot is "through the whole leg", CHF, rt hip bone and bone History of Any Multi-Drug Resistant Organisms: ESBL, VRE Date of last positivie culture/infection: 02/11/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 left hip replacement, LEFT breast biopsy, darcy filter rt leg, biopsy of right nostril, biopsy rt breast Past Anesthesia/Blood Transfusion Reactions: No Reported Reaction Past Psychological History: No Psychological Hx Reported Smoking Status: Former smoker Past Alcohol Use History: None Reported Additional Past Alcohol Use History / Comment(s): smoked 1 pkg from 1961 to 1971 Past Drug Use History: None Reported - Past Family History Mother Family Medical History: No Reported History Additional Family Medical History / Comment(s): Family states pt's mother " of pneumonia". Father Family Medical History: Diabetes Mellitus Medications and Allergies Home Medications Medication Instructions Recorded Confirmed Type Allopurinol [Zyloprim] 200 mg PO DAILY@0800 01/22/14 10/06/19 History Linagliptin [Tradjenta] 5 mg PO DAILY@1500 01/22/14 10/06/19 History Omeprazole [PriLOSEC] 20 mg PO DAILY@0701/22/14 10/06/19 History Docusate Sodium [Stool Softener] 100 mg PO BID@899,199902/22/14 10/06/19 History Garlic 1 tab PO BID@09,199902/22/14 10/06/19 History Calcitriol 0.25 mcg PO SUTUTHSA@79908/22/14 10/06/19 History Brinzolamide/Brimonidine Tart 1 drop BOTH EYES BID@699,199905/11/17 10/06/19 History [Simbrinza 1%-0.2% Eye Drops] Vit C/E/Zn/Coppr/Lutein/Zeaxan 1 cap PO BID@899,199912/03/17 10/06/19 History [Preservision Areds 2 Softgel] Ferrous Sulfate [Feosol] 325 mg PO DAILY@79901/11/18 10/06/19 History Cholecalciferol (Vitamin D3) 2,000 unit PO DAILY@79902/10/18 10/06/19 History [Vitamin D3] Isosorbide Mononitrate ER [Imdur] 60 mg PO DAILY@79902/10/18 10/06/19 History Wheat Dextrin [Benefiber] 1 packet PO BID@799,199902/10/18 10/06/19 History Midodrine [ProAmatine] 10 mg PO TID@0700,1500,2300 04/10/18 10/06/19 History Rivaroxaban [Xarelto] 10 mg PO DAILY@0800 04/10/18 10/06/19 History Metoprolol Tartrate [Lopressor] 25 mg PO DAILY@1500 06/15/18 10/06/19 History Metoprolol Tartrate [Lopressor] 50 mg PO BID@0700,2300 09/18/18 10/06/19 History Ondansetron [Zofran] 4 mg PO Q12H PRN 09/18/18 10/06/19 History Potassium Chloride ER [K-Dur 10] 30 meq PO BID@0800,1500 04/02/19 10/06/19 History Acetaminophen-Codeine 300-30mg 1 tab PO Q6H PRN 09/30/19 10/06/19 History [Tylenol w/codeine #3] Calcium Acetate [PhosLo] 1,334 mg PO TID-W/MEALS 30 Days 10/04/19 10/06/19 Rx #180 tab Torsemide [Demadex] 20 mg PO Q48H #0 10/04/19 10/06/19 Rx Cefuroxime Axetil [Ceftin] 500 mg PO BID@0800,2000 10/06/19 10/06/19 History Sodium Bicarbonate Tab 1,300 mg PO TID@0800,1500,2100 10/06/19 10/06/19 History Allergies Allergy/AdvReac Type Severity Reaction Status Date / Time atorvastatin calcium Allergy Unknown Verified 10/06/19 12:05 [From Lipitor] codeine Allergy Unknown Verified 10/06/19 12:05 [From Tylenol-Codeine #3] adhesive tape AdvReac Intermediate Unknown Verified 10/06/19 12:05 hydrocodone AdvReac Vomiting Verified 10/06/19 12:05 Physical Exam Vitals: Vital Signs Temp Pulse Pulse Resp BP BP Pulse Ox 10/06/19 10:00 88 20 10/06/19 09:38 97.4 F L 88 20 121/60 98 10/06/19 09:36 97.4 F L 88 20 121/60 98 10/06/19 08:00 97.8 F 82 15 105/66 96 10/06/19 07:01 88 16 107/65 98 10/06/19 07:00 86 16 107/65 98 10/06/19 05:14 97.8 F 80 18 133/69 97 Intake and Output 10/05/19 10/06/19 10/06/19 22:59 06:59 14:59 Other: Voiding Method Incontinent Weight 81.647 kg 81.647 kg In general patient is alert and oriented 3 in no apparent distress HEENT head normocephalic and atraumatic Neck is supple no JVD no goiter Chest exam reveals a scattered crackles bilaterally no wheezing Cardiac exam reveals regular heart sounds no gallops no murmurs Abdomen is soft nontender no organomegaly Extremity exam reveals 2+ edema no cyanosis or clubbing Neurological examination reveals no gross focal deficits Results CBC & Chem 7: 10/06/19 05:41 10/06/19 05:41 Labs: Abnormal Lab Results - Last 24 Hours (Table) 10/06/19 10/06/19 10/06/19 Range/Units 05:41 05:41 05:41 RBC 2.95 L (3.80-5.40) m/uL Hgb 10.5 L (11.4-16.0) gm/dL Hct 33.1 L (34.0-46.0) % MCV 112.4 H (80.0-100.0) fL MCH 35.8 H (25.0-35.0) pg RDW 17.2 H (11.5-15.5) % Lymphocytes # 0.8 L (1.0-4.8) k/uL Macrocytosis Marked A PT 12.9 H (9.0-12.0) sec INR 1.3 H (<1.2) APTT 38.0 H (22.0-30.0) sec Chloride 108 H (98-107) mmol/L Carbon Dioxide 19 L (22-30) mmol/L BUN 96 H (7-17) mg/dL Creatinine 2.87 H (0.52-1.04) mg/dL Glucose 118 H (74-99) mg/dL POC Glucose (mg/dL) (75-99) mg/dL Albumin 3.3 L (3.5-5.0) g/dL 10/06/19 Range/Units 12:15 RBC (3.80-5.40) m/uL Hgb (11.4-16.0) gm/dL Hct (34.0-46.0) % MCV (80.0-100.0) fL MCH (25.0-35.0) pg RDW (11.5-15.5) % Lymphocytes # (1.0-4.8) k/uL Macrocytosis PT (9.0-12.0) sec INR (<1.2) APTT (22.0-30.0) sec Chloride (98-107) mmol/L Carbon Dioxide (22-30) mmol/L BUN (7-17) mg/dL Creatinine (0.52-1.04) mg/dL Glucose (74-99) mg/dL POC Glucose (mg/dL) 111 H (75-99) mg/dL Albumin (3.5-5.0) g/dL Thrombosis Risk Factor Assmnt - Choose All That Apply Any of the Below Risk Factors Present?: No Other Risk Factors: Yes Each Risk Factor Represents 2 Points: Patient confined to bed Each Risk Factor Represents 3 Points: Age 75 years or older, History of DVT/PE Thrombosis Risk Factor Assessment Total Risk Factor Score: 8 Thrombosis Risk Factor Assessment Level: High Risk Assessment and Plan Plan: #1 severe shortness of breath improved most likely related to fluid overload patient was started on IV Lasix and consultation for nephrology was initiated to assess if patient needs to be started on hemodialysis during this admission #2 abnormal chest x-ray revealing evidence of hilar fullness, will continue to monitor and repeat chest x-ray once fluid overload has resolved #3 indeterminate VQ scan, doubt pulmonary embolism, bilateral lower extremity Doppler was ordered. #4 underlying history of chronic atrial fibrillation #5 underlying history of chronic kidney disease #6 underlying history of diabetes mellitus #7 underlying history of hypertension #8 underlying history of anemia At this time patient was started on IV Lasix She is maintained on supplemental for anticoagulation Pulmonary cardiology and nephrology consultation requested Will recheck labs in a.m. and follow closely
[2019-10-06 17:19] LABS: Glucose,Whole Blood 136 mg/dL (75-99)
[2019-10-06] MEDS: FUROSEMIDE 10 MG/ML 4 ML VIAL IV SCH ×3 (17:20→21:41)
[2019-10-06] MEDS: CALCIUM ACETATE 667 MG TAB PO SCH (17:28)
[2019-10-06] MEDS: INSULIN ASPART (NovoLOG) 100 UNIT/ML VIAL SQ SCH ×2 (17:28→21:01)
--- NOTE | 2019-10-06 18:01 | US ---
EXAMINATION TYPE: US venous doppler duplex LE BI DATE OF EXAM: 10/06/2019 5:20 PM COMPARISON: Right lower extremity venous ultrasound December 06, 2017 CLINICAL HISTORY: dvt. History of right dvt in 2018 SIDE PERFORMED: Bilateral TECHNIQUE: The lower extremity deep venous system is examined utilizing real time linear array sonog momo with graded compression, doppler sonography and color-flow sonography. VESSELS IMAGED: External Iliac Vein (EIV)-not seen due to body habitus Common Femoral Vein Deep Femoral Vein Greater Saphenous Vein * Femoral Vein Popliteal Vein Small Saphenous Vein * Proximal Calf Veins-not seen due to body habitus (* superficial vessels) Patient of very large body habitus, with extensive pitting edema in bilateral legs, worse on the righ t. Study very technically difficult and somewhat limited. Right Leg: Starting at the junction of the femoral vein, deep femoral vein there is thrombus, collate ral vessel anterior to vein and artery patent, no flow and no compressibility of femoral vein or popl iteal vein. Unable to turn in sag on pop fossa due to large size of leg and patient mobility. Left Leg: Appears negative for DVT, study limited by above factors. Grayscale, color doppler, spectral doppler imaging performed of the deep veins of the bilateral lower extremities. IMPRESSION: Suboptimal study as noted above. No acute DVT in the left lower extremity. Persistent lo ng segment thrombus in the right lower extremity has been present on prior and older studies.
--- NOTE | 2019-10-06 18:02 | US ---
EXAMINATION TYPE: US venous doppler duplex UE DATE OF EXAM: 10/06/2019 COMPARISON: NONE CLINICAL HISTORY: dvt. Swelling and pain. SIDE PERFORMED: Bilateral Patient of large body habitus, unable to fully abduct arm, exam limited. Right Arm: Appears negative for DVT. Unable to visualized cephalic vein and ulnar veins. Left Arm: Appears negative for DVT. Unable to visualized ulnar veins. Grayscale, color doppler, spectral doppler imaging performed of the deep veins of the bilateral upper extremities. There is normal flow, compressibility and vascular waveforms. IMPRESSION: Suboptimal study without convincing evidence of new or acute DVT in either upper extremit y.
[2019-10-06 20:47] LABS: Glucose,Whole Blood 90 mg/dL (75-99)
[2019-10-06] MEDS: DOCUSATE 100 MG CAP PO SCH (21:39)
[2019-10-06] MEDS: VIT A,C & E-LUTEIN-MINERALS 1 EACH TAB PO SCH (21:39)
[2019-10-06] MEDS: DORZOLAMIDE HCL 2% DROPS 10 ML BTL BOTH EYES SCH (21:39)
[2019-10-06] MEDS: BRIMONIDINE TARTRATE 0.2% DROPS 5 ML BTL BOTH EYES SCH (21:39)
[2019-10-07] MEDS: Acetaminophen-Codeine 300-30mg TAB PO SCH ×4 (02:13→20:14)
[2019-10-07 02:29] LABS: Appearance,Urine Clear (Clear); Bacteria,Urine Occasional /hpf; Bilirubin,Urine Negative (Negative); Blood,Urine Negative (Negative); Color,Urine Yellow; Glucose,Urine (UA) Negative (Negative); Ketones,Urine Negative (Negative); Leukocyte Esterase,Urine Large (Negative); Mucus,Urine Rare /hpf; Nitrite,Urine Negative (Negative); Protein,Urine Negative (Negative); RBC,Urine 1 /hpf (0-5); Specific Gravity,Urine 1.009 (1.001-1.035); Squamous Epithelial Cell,Urine <1 /hpf (0-4); Urobilinogen,Urine <2.0 mg/dL (<2.0); WBC,Urine 16 /hpf (0-5)
[2019-10-07 06:02] LABS: Glucose,Whole Blood 124 mg/dL (75-99)
[2019-10-07] MEDS: INSULIN ASPART (NovoLOG) 100 UNIT/ML VIAL SQ SCH ×4 (06:03→21:30)
[2019-10-07 06:42] LABS: Anisocytosis Slight; Basophils % (A) 0 %; Eosinophils # (A) 0.2 k/uL (0-0.7); Eosinophils % (A) 2 %; Hypochromasia Slight; Lymphocytes % (A) 12 %; MCH 36.2 pg (25.0-35.0); MCHC 31.3 g/dL (31.0-37.0); MCV 115.7 fL (80.0-100.0); Mean Platelet Volume 9.4; Monocytes # (A) 0.5 k/uL (0-1.0); Monocytes % (A) 6 %; Neutrophils % (A) 77 %; Platelet Count 134 k/uL (150-450); RBC 2.77 m/uL (3.80-5.40); RDW 17.5 % (11.5-15.5); WBC 7.9 k/uL (3.8-10.6)
[2019-10-07] MEDS: PANTOPRAZOLE 40 MG TABLET PO SCH (06:45)
[2019-10-07] MEDS: MIDODRINE 5 MG TAB PO SCH ×3 (06:45→23:06)
[2019-10-07] MEDS: FUROSEMIDE 10 MG/ML 4 ML VIAL IV SCH ×3 (06:46→23:06)
[2019-10-07] MEDS: METOPROLOL TARTRATE 25 MG TAB PO SCH ×3 (06:46→23:06)
[2019-10-07] MEDS: DORZOLAMIDE HCL 2% DROPS 10 ML BTL BOTH EYES SCH ×2 (06:46→20:13)
[2019-10-07] MEDS: CALCIUM ACETATE 667 MG TAB PO SCH ×3 (06:46→17:45)
[2019-10-07] MEDS: BRIMONIDINE TARTRATE 0.2% DROPS 5 ML BTL BOTH EYES SCH ×2 (06:47→20:13)
[2019-10-07 06:50] LABS: Albumin 3.3 g/dL (3.5-5.0); Calcium 8.9 mg/dL (8.4-10.2); Total Bilirubin 0.6 mg/dL (0.2-1.3); Total Protein 6.1 g/dL (6.3-8.2)
[2019-10-07 06:54] LABS: Macrocytosis Marked
[2019-10-07] MEDS ORDERED: RIVAROXABAN 10 MG TAB PO SCH (08:00)
[2019-10-07] MEDS: POTASSIUM CHLORIDE ER 10 MEQ TAB.ER.PRT PO SCH ×2 (08:43→15:26)
[2019-10-07] MEDS: ISOSORBIDE MONONITRATE ER 60 MG TAB.ER.24H PO SCH (08:43)
[2019-10-07] MEDS: CHOLECALCIFEROL 1,000 UNIT TAB PO SCH (08:44)
[2019-10-07] MEDS: ALLOPURINOL 100 MG TAB PO SCH (08:44)
[2019-10-07] MEDS: DOCUSATE 100 MG CAP PO SCH ×2 (08:44→20:13)
[2019-10-07] MEDS: VIT A,C & E-LUTEIN-MINERALS 1 EACH TAB PO SCH ×2 (08:45→20:14)
[2019-10-07] MEDS: FERROUS SULFATE 325 MG TAB PO SCH (08:45)
[2019-10-07] MEDS: SODIUM BICARBONATE TAB 650 MG TAB PO SCH ×3 (08:51→20:13)
--- NOTE | 2019-10-07 09:56 | P.NPCON ---
History of Present Illness - Reason for Consult chronic renal failure - History of Present Illness Reason for consultation: Chronic kidney disease History of present illness: Patient is a 84-year-old female seen in renal consultation for chronic kidney disease. Patient has chronic kidney disease stage V with baseline creatinine in the range of 2.8-3.2. Etiology is nephrosclerosis and diabetic kidney disease. Patient was just discharged from the hospital 3 days ago and presented to the hospital again last night due to chest pain. Patient complains of pain in her left breast with radiation to her back. She has history of A. fib and is maintained on anticoagulation. She did have some diarrhea but is better now. She denies any vomiting. Oral intake is good. Admits to good urine output. No hematuria or dysuria. No syncopal episodes. Patient states when she was discharged on Monday she was discharged home on Demadex 20 mg every other day. Patient took a dose on Monday but states she swelled up on Monday. She is currently maintained on IV Lasix and edema has improved. Hemodynamically stable. Vital signs are stable. General: The patient appeared well nourished and normally developed. HEENT: Head exam is unremarkable. Neck is without jugular venous distension. LUNGS: Breath sounds decreased. HEART: Rate and Rhythm are regular. First and second heart sounds normal. No murmurs, rubs or gallops. ABDOMEN: Abdominal exam reveals normal bowel sounds. Non-tender and non-distend ed. No evidence of peritonitis. EXTREMITITES: Trace edema. Past Medical History Past Medical History: Atrial Fibrillation, Coronary Artery Disease (CAD), Cancer , Heart Failure, Diabetes Mellitus, Deep Vein Thrombosis (DVT), Eye Disorder, GERD/Reflux, Hypertension, Renal Disease Additional Past Medical History / Comment(s): Macular Degeneration and glaucoma, gallstones, stage 4 kidney failure, hx Uterine & groin CA; WEARS BILAT THIGH HIGH HOSE, uses cane or walker, patient states she has "2 blood clots in right groin since 2003" family states now clot is "through the whole leg", CHF, rt hip bone and bone History of Any Multi-Drug Resistant Organisms: ESBL, VRE Date of last positivie culture/infection: 02/11/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 left hip replacement, LEFT breast biopsy, darcy filter rt leg, biopsy of right nostril, biopsy rt breast Past Anesthesia/Blood Transfusion Reactions: No Reported Reaction Past Psychological History: No Psychological Hx Reported Smoking Status: Former smoker Past Alcohol Use History: None Reported Additional Past Alcohol Use History / Comment(s): smoked 1 pkg from 1961 to 1971 Past Drug Use History: None Reported - Past Family History Mother Family Medical History: No Reported History Additional Family Medical History / Comment(s): Family states pt's mother " of pneumonia". Father Family Medical History: Diabetes Mellitus Medications and Allergies Home Medications Medication Instructions Recorded Confirmed Type Allopurinol [Zyloprim] 200 mg PO DAILY@0800 01/22/14 10/06/19 History Linagliptin [Tradjenta] 5 mg PO DAILY@1500 01/22/14 10/06/19 History Omeprazole [PriLOSEC] 20 mg PO DAILY@0701/22/14 10/06/19 History Docusate Sodium [Stool Softener] 100 mg PO BID@09,199902/22/14 10/06/19 History Garlic 1 tab PO BID@09,199902/22/14 10/06/19 History Calcitriol 0.25 mcg PO SUTUTHSA@79908/22/14 10/06/19 History Brinzolamide/Brimonidine Tart 1 drop BOTH EYES BID@07,199905/11/17 10/06/19 History [Simbrinza 1%-0.2% Eye Drops] Vit C/E/Zn/Coppr/Lutein/Zeaxan 1 cap PO BID@0900,199912/03/17 10/06/19 History [Preservision Areds 2 Softgel] Ferrous Sulfate [Feosol] 325 mg PO DAILY@79901/11/18 10/06/19 History Cholecalciferol (Vitamin D3) 2,000 unit PO DAILY@79902/10/18 10/06/19 History [Vitamin D3] Isosorbide Mononitrate ER [Imdur] 60 mg PO DAILY@79902/10/18 10/06/19 History Wheat Dextrin [Benefiber] 1 packet PO BID@08,199902/10/18 10/06/19 History Midodrine [ProAmatine] 10 mg PO TID@0700,1500,2300 04/10/18 10/06/19 History Rivaroxaban [Xarelto] 10 mg PO DAILY@0800 04/10/18 10/06/19 History Metoprolol Tartrate [Lopressor] 25 mg PO DAILY@1500 06/15/18 10/06/19 History Metoprolol Tartrate [Lopressor] 50 mg PO BID@0700,2300 09/18/18 10/06/19 History Ondansetron [Zofran] 4 mg PO Q12H PRN 09/18/18 10/06/19 History Potassium Chloride ER [K-Dur 10] 30 meq PO BID@0800,1500 04/02/19 10/06/19 History Acetaminophen-Codeine 300-30mg 1 tab PO Q6H PRN 09/30/19 10/06/19 History [Tylenol w/codeine #3] Calcium Acetate [PhosLo] 1,334 mg PO TID-W/MEALS 30 Days 10/04/19 10/06/19 Rx #180 tab Torsemide [Demadex] 20 mg PO Q48H #0 10/04/19 10/06/19 Rx Cefuroxime Axetil [Ceftin] 500 mg PO BID@0800,199910/06/19 10/06/19 History Sodium Bicarbonate Tab 1,300 mg PO TID@0800,1500,2100 10/06/19 10/06/19 History Allergies Allergy/AdvReac Type Severity Reaction Status Date / Time atorvastatin calcium Allergy Unknown Verified 10/06/19 12:05 [From Lipitor] codeine Allergy Unknown Verified 10/06/19 12:05 [From Tylenol-Codeine #3] adhesive tape AdvReac Intermediate Unknown Verified 10/06/19 12:05 hydrocodone AdvReac Vomiting Verified 10/06/19 12:05 Physical Exam Vitals: Vital Signs Temp Pulse Resp BP Pulse Ox 10/07/19 08:00 97.6 F 89 20 123/49 96 10/07/19 04:00 98 F 91 18 132/64 99 10/07/19 00:00 97.6 F 82 20 104/65 97 10/06/19 20:00 97.8 F 89 18 120/77 99 10/06/19 16:00 98.6 F 90 20 124/75 92 L 10/06/19 10:00 88 20 Intake and Output 10/06/19 10/07/19 10/07/19 22:59 06:59 14:59 Intake Total 240 240 240 Output Total 150 200 Balance 240 90 40 Intake: Oral 240 240 240 Output: Urine 150 200 Other: Voiding Method Incontinent # Voids 1 2 1 # Bowel Movements 1 Weight 87.2 kg Results - Lab Results Most recent lab results Calcium 8.9 mg/dL (8.4-10.2) 10/07/19 05:59 Magnesium 1.6 mg/dL (1.6-2.3) 10/06/19 05:41 10/07/19 05:59 10/07/19 05:59 Assessment and Plan Plan: Assessment: 1. 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 GFR at baseline. 2. Volume overload. Improving with IV Lasix. 3. Metabolic acidosis secondary to chronic kidney disease maintained on oral bicarbonate. 4. Acute on chronic systolic CHF with ejection fraction of 35-40% with moderate to severe mitral and tricuspid regurgitation. 5. Moderate pulmonary hypertension. 6. Dyspnea mostly due to fluid overload. No evidence of DVT. 7. Diabetes mellitus. 8. Chronic kidney disease mineral bone disease maintained on calcitriol and PhosLo. Plan: Maintain IV Lasix. I discussed with the patient the need to start renal replacement therapy for better control of her volume status. Patient states she will think about it. No urgency to start at this time. Continue to assess on a daily basis. Thank you for the consultation. I will continue to follow the patient with you during her hospital stay.
--- NOTE | 2019-10-07 10:51 | P.PN ---
Subjective Progress Note Date: 10/07/19 Trina Carrillo, he is an 84-year-old female who was recently discharged from [facility], who presented to emergency room was a chief complaint of worsening shortness of breath, sharp pain in the chest, and significant swelling in the bilateral lower extremity, she was evaluated in emergency room and was admitted to telemetry floor for further evaluation and treatment BNP was elevated at 15,800 patient has known history of chronic renal failure with elevated BUN and creatinine she was evaluated by nephrology last admission and decision was made to start hemodialysis soon however patient condition deteriorated fast and patient and her family decided to return to emergency room. Due to shortness of breath patient had a VQ scan done in the emergency room, there was no clear evidence of any pulmonary embolism, there was matching ventilation and perfusion defects and the scan was read as intermediate probability for pulmonary embolus. Consultation for cardiology, pulmonary, nephrology were initiated in the emergency room. Patient was seen and examined on the telemetry floor, she is alert and oriented 3 in no apparent distress, at this time her chest pain has resolved and her shortness of breath has improved, she is still having significant bilateral lower extremity edema, otherwise she denies any complaints there is no fever or chills no headache or dizziness no chest pain, no cough no nausea or vomiting no abdominal pain no diarrhea no burning with urination no frequency or urgency no hematuria. On 10/07/2019 patient is alert and oriented 3. Patient does reports improvement with edema and shortness of breath. Patient remains on Lasix 40 every 8 hours. Patient still having some mild chest discomfort. Cardiology nephrology and pulmonary services are following. Venous Doppler was negative for DVTs. Urine culture has been ordered. Objective - Vital Signs Vital signs: Vital Signs Temp 97.6 F 10/07/19 08:00 Pulse 89 10/07/19 08:00 Resp 20 10/07/19 08:00 BP 123/49 10/07/19 08:00 Pulse Ox 96 10/07/19 08:00 Intake & Output 10/06/19 10/07/19 10/07/19 18:59 06:59 18:59 Intake Total 480 240 240 Output Total 150 350 Balance 480 90 -110 Weight 81.647 kg 87.2 kg Intake: Oral 480 240 240 Output: Urine 150 350 Other: Voiding Method Incontinent # Voids 1 2 1 # Bowel Movements 1 - Exam In general patient is alert and oriented 3 in no apparent distress HEENT head normocephalic and atraumatic Neck is supple no JVD no goiter Chest exam reveals a scattered crackles bilaterally no wheezing Cardiac exam reveals regular heart sounds no gallops no murmurs Abdomen is soft nontender no organomegaly Extremity exam reveals 2+ edema no cyanosis or clubbing Neurological examination reveals no gross focal deficits - Labs CBC & Chem 7: 10/07/19 05:59 10/07/19 05:59 Labs: Abnormal Lab Results - Last 24 Hours (Table) 10/06/19 10/06/19 10/07/19 Range/Units 12:15 17:18 02:06 RBC (3.80-5.40) m/uL Hgb (11.4-16.0) gm/dL Hct (34.0-46.0) % MCV (80.0-100.0) fL MCH (25.0-35.0) pg RDW (11.5-15.5) % Plt Count (150-450) k/uL Macrocytosis Carbon Dioxide (22-30) mmol/L BUN (7-17) mg/dL Creatinine (0.52-1.04) mg/dL Glucose (74-99) mg/dL POC Glucose (mg/dL) 111 H 136 H (75-99) mg/dL Total Protein (6.3-8.2) g/dL Albumin (3.5-5.0) g/dL Ur Leukocyte Esterase Large H (Negative) Urine WBC 16 H (0-5) /hpf Urine Bacteria Occasional H (None) /hpf Urine Mucus Rare H (None) /hpf 10/07/19 10/07/19 10/07/19 Range/Units 05:59 05:59 06:01 RBC 2.77 L (3.80-5.40) m/uL Hgb 10.0 L (11.4-16.0) gm/dL Hct 32.0 L (34.0-46.0) % MCV 115.7 H (80.0-100.0) fL MCH 36.2 H (25.0-35.0) pg RDW 17.5 H (11.5-15.5) % Plt Count 134 L (150-450) k/uL Macrocytosis Marked A Carbon Dioxide 18 L (22-30) mmol/L BUN 94 H (7-17) mg/dL Creatinine 2.90 H (0.52-1.04) mg/dL Glucose 111 H (74-99) mg/dL POC Glucose (mg/dL) 124 H (75-99) mg/dL Total Protein 6.1 L (6.3-8.2) g/dL Albumin 3.3 L (3.5-5.0) g/dL Ur Leukocyte Esterase (Negative) Urine WBC (0-5) /hpf Urine Bacteria (None) /hpf Urine Mucus (None) /hpf Assessment and Plan Assessment: #1 severe shortness of breath improved most likely related to fluid overload patient was started on IV Lasix and consultation for nephrology was initiated to assess if patient needs to be started on hemodialysis during this admission. 2- D echo has been ordered #2 abnormal chest x-ray revealing evidence of hilar fullness, will continue to monitor and repeat chest x-ray once fluid overload has resolved #3 indeterminate VQ scan, doubt pulmonary embolism, bilateral lower extremity Doppler was ordered. Venous Doppler of lower extremities showing no active DVT in the lower extremity. Persistent long segment thrombus in the right lower x- ray has been present on prior studies. Doppler study completed of upper extremities are negative for DVT in either extremity #4 underlying history of chronic atrial fibrillation #5 underlying history of chronic kidney disease #6 underlying history of diabetes mellitus #7 underlying history of hypertension #8 underlying history of anemia #9. Urinary tract infection. Patient started on Rocephin. Urine culture ordered DVT prophylaxis eliquis. GI prophylaxis Protonix Pulmonary cardiology and nephrology consultation requested Will recheck labs in a.m. and follow closely I performed an examination of the patient and discussed their management with the Nurse Practitioner. I have reviewed the Nurse Practitioner's notes and ag ree with the documented findings and plan of care
--- NOTE | 2019-10-07 11:16 | CONS ---
CONSULTATION Mrs. Carrillo is an 84-year-old female with known history of atrial fibrillation, history of chronic kidney disease who presented with progressive dyspnea as well as back and chest discomfort. She was recently discharged from the hospital. She is complaining of predominantly back discomfort at this time and that the back discomfort is worse with position. She was evaluated by the nephrology service for possible dialysis and she is not quite sure if she wants to proceed with that. She has a known history of moderate severe mitral regurgitation with ejection fraction 45%, history of episode of peripheral edema and the atrial fibrillation as noted. She has no significant dizziness. No palpitation. No syncope. Her coronary risk factors are remarkable for hypertension, hyperlipidemia and diabetes mellitus. She had an echocardiogram done in March of 2019 and that revealed ejection fraction 35% to 40% with mild to severe mitral and tricuspid regurgitation and moderate to severe pulmonary hypertension. MEDICATION: Her medications at home included Xarelto 10 mg daily, torsemide 20 mg q.48 hours, sodium bicarb, Prilosec 20 mg daily, Lopressor 50 mg twice a day, Tradjenta, isosorbide mononitrate 60 mg daily, iron, PhosLo, Zyloprim, calcitriol, and iron supplement. REVIEW OF SYSTEMS: RESPIRATORY SYSTEM: She had dyspnea on exertion. She has the cough, but no fever. GI SYSTEM: She has no recent nausea or vomiting. No GI bleeding. SYSTEM: She has history of chronic kidney disease. No recent bleeding. NERVOUS SYSTEM: No history of seizure. PHYSICAL EXAMINATION: She is an 84-year-old female, alert, in no apparent distress. Blood pressure 123/49 with the heart rate in the 80s. HEAD: Normocephalic. EYES: Sclerae anicteric NECK: Good carotid upstroke. No bruit. No jugular venous distention. LUNGS: Clear to auscultation. HEART: Irregular, irregular, S1, S2. No S3 with a holosystolic murmur in the apex radiating to the axilla. No diastolic murmur. No rub. ABDOMEN: Soft, obese, nontender. Positive bowel sounds. No organomegaly. EXTREMITIES: +1 edema. LAB DATA: Lab data revealed a troponin of 0.19. BUN and creatinine 94 and 2.9. Potassium 4.0. Hemoglobin of 10. Her GFR is 14. Her EKG revealed atrial fibrillation with nonspecific ST-T wave changes and right axis deviation. She had a venous duplex study that revealed no evidence of DVT with persistent long segment thrombosis in the right lower extremity that has been noted in the past. She had a ventilation perfusion scan that was intermediate probability for pulmonary embolism. IMPRESSION: 1. Back and chest discomfort, has atypical features for ischemic heart disease. No evidence to suggest acute coronary syndrome. 2. Symptoms of progressive dyspnea with known history of congestive heart failure with combination of systolic dysfunction, history of mitral valve disease and chronic kidney disease. 3. Chronic persistent atrial fibrillation. 4. Worsening renal failure. RECOMMENDATION: From the cardiac standpoint, I will switch her Xarelto to Eliquis in view of her renal function. I had a long discussion with her and her daughter regarding the issue of dialysis. She is not sure she wants to proceed with dialysis. In the meantime, will continue on supportive care. Unfortunately the prognosis remains guarded and she is aware of that. Thank you for this consult. We will follow with you. EL / IJN: [id number] /
[2019-10-07 11:49] LABS: Glucose,Whole Blood 148 mg/dL (75-99)
[2019-10-07 16:28] LABS: Glucose,Whole Blood 125 mg/dL (75-99)
[2019-10-07] MEDS: LINAGLIPTIN 5 MG TABLET PO SCH (17:45)
[2019-10-07 20:39] LABS: Glucose,Whole Blood 144 mg/dL (75-99)
[2019-10-08] MEDS: Acetaminophen-Codeine 300-30mg TAB PO SCH ×4 (02:11→20:42)
[2019-10-08 06:23] LABS: Calcium 8.6 mg/dL (8.4-10.2); Magnesium 1.4 mg/dL (1.6-2.3); Potassium 3.7 mmol/L (3.5-5.1)
[2019-10-08 06:25] LABS: Glucose,Whole Blood 103 mg/dL (75-99)
[2019-10-08] MEDS: INSULIN ASPART (NovoLOG) 100 UNIT/ML VIAL SQ SCH ×4 (06:39→20:41)
[2019-10-08] MEDS: ALLOPURINOL 100 MG TAB PO SCH (07:14)
[2019-10-08] MEDS: FERROUS SULFATE 325 MG TAB PO SCH (07:14)
[2019-10-08] MEDS: CALCITRIOL 0.25 MCG CAP PO SCH (07:14)
[2019-10-08] MEDS: ISOSORBIDE MONONITRATE ER 60 MG TAB.ER.24H PO SCH (07:14)
[2019-10-08] MEDS: MIDODRINE 5 MG TAB PO SCH ×3 (07:14→22:09)
[2019-10-08] MEDS: PANTOPRAZOLE 40 MG TABLET PO SCH (07:15)
[2019-10-08] MEDS: CHOLECALCIFEROL 1,000 UNIT TAB PO SCH (07:15)
[2019-10-08] MEDS: BRIMONIDINE TARTRATE 0.2% DROPS 5 ML BTL BOTH EYES SCH ×2 (07:16→20:43)
[2019-10-08] MEDS: DORZOLAMIDE HCL 2% DROPS 10 ML BTL BOTH EYES SCH ×2 (07:16→20:43)
[2019-10-08] MEDS: SODIUM BICARBONATE TAB 650 MG TAB PO SCH ×3 (08:15→20:42)
[2019-10-08] MEDS: POTASSIUM CHLORIDE ER 10 MEQ TAB.ER.PRT PO SCH ×2 (08:15→15:46)
[2019-10-08] MEDS ORDERED: Magnesium Replacement Protocol 1 EACH MISC MISCELLANE PRN (08:41)
[2019-10-08] MEDS ORDERED: APIXABAN 2.5 MG TABLET PO SCH (09:00)
[2019-10-08] MEDS: FUROSEMIDE 10 MG/ML 4 ML VIAL IV SCH (09:37)
[2019-10-08] MEDS: VIT A,C & E-LUTEIN-MINERALS 1 EACH TAB PO SCH ×2 (09:38→20:42)
[2019-10-08] MEDS: MAGNESIUM SULFATE-D5W PMX 1 GM in DEXTROSE/WATER 1 100ML.BAG IVPB SCH ×3 (09:38→12:31)
[2019-10-08] MEDS: METOPROLOL TARTRATE 25 MG TAB PO SCH ×3 (09:38→22:09)
[2019-10-08] MEDS: CALCIUM ACETATE 667 MG TAB PO SCH ×3 (10:51→17:09)
[2019-10-08] MEDS: DOCUSATE 100 MG CAP PO SCH ×2 (10:59→20:43)
--- NOTE | 2019-10-08 11:17 | P.PN ---
Subjective Patient is seen in follow-up for chronic kidney disease. Renal function is stable. Edema improved. Good urine output. Hemodynamically stable. Vital signs are stable. General: The patient appeared well nourished and normally developed. HEENT: Head exam is unremarkable. Neck is without jugular venous distension. LUNGS: Lungs are clear to auscultation and percussion. Breath sounds decreased. HEART: Rate and Rhythm are regular. First and second heart sounds normal. No murmurs, rubs or gallops. ABDOMEN: Abdominal exam reveals normal bowel sounds. Non-tender and non- distended. No evidence of peritonitis. EXTREMITITES: 1+ edema. Objective - Vital Signs Vital signs: Vital Signs Temp 97.5 F L 10/08/19 08:00 Pulse 87 10/08/19 08:00 Resp 20 10/08/19 08:00 BP 106/55 10/08/19 08:00 Pulse Ox 97 10/08/19 08:00 Intake & Output 10/07/19 10/08/19 10/08/19 18:59 06:59 18:59 Intake Total 720 Output Total 850 700 200 Balance -130 -700 -200 Weight 87.5 kg Intake: Oral 720 Output: Urine 850 700 200 Other: Voiding Method Toilet Toilet Incontinent Incontinent # Voids 1 1 # Bowel Movements 2 - Labs CBC & Chem 7: 10/07/19 05:59 10/08/19 05:55 Labs: Abnormal Lab Results - Last 24 Hours (Table) 10/07/19 10/07/19 10/07/19 Range/Units 11:39 16:24 20:38 Carbon Dioxide (22-30) mmol/L BUN (7-17) mg/dL Creatinine (0.52-1.04) mg/dL POC Glucose (mg/dL) 148 H 125 H 144 H (75-99) mg/dL Magnesium (1.6-2.3) mg/dL 10/08/19 10/08/19 Range/Units 05:55 06:24 Carbon Dioxide 20 L (22-30) mmol/L BUN 93 H (7-17) mg/dL Creatinine 3.02 H (0.52-1.04) mg/dL POC Glucose (mg/dL) 103 H (75-99) mg/dL Magnesium 1.4 L (1.6-2.3) mg/dL Microbiology - Last 24 Hours (Table) 10/07/19 02:06 Urine Culture - Preliminary Urine,Clean Catch Assessment and Plan Plan: Assessment: 1. 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 GFR at baseline. 2. Volume overload. Improving with IV Lasix. 3. Metabolic acidosis secondary to chronic kidney disease maintained on oral bicarbonate. 4. Acute on chronic systolic CHF with ejection fraction of 35-40% with moderate to severe mitral and tricuspid regurgitation. 5. Moderate pulmonary hypertension. 6. Dyspnea mostly due to fluid overload. No evidence of DVT. 7. Diabetes mellitus. 8. Chronic kidney disease mineral bone disease maintained on calcitriol and PhosLo. 9. Hypomagnesemia secondary to diuresis. Plan: Discontinue IV Lasix. Start Demadex 20 mg once daily. Replace magnesium. 3 g IV today. I discussed with the patient the need to start renal replacement therapy for better control of her volume status. She is still undecided and family wants to discussed with director of development and marketing before making that decision. No urgency to start at this time. Continue to assess on a daily basis.
[2019-10-08 12:06] LABS: Glucose,Whole Blood 120 mg/dL (75-99)
--- NOTE | 2019-10-08 12:35 | P.PN ---
Subjective Progress Note Date: 10/08/19 Trina Carrillo, he is an 84-year-old female who was recently discharged from [facility], who presented to emergency room was a chief complaint of worsening shortness of breath, sharp pain in the chest, and significant swelling in the bilateral lower extremity, she was evaluated in emergency room and was admitted to telemetry floor for further evaluation and treatment BNP was elevated at 15,800 patient has known history of chronic renal failure with elevated BUN and creatinine she was evaluated by nephrology last admission and decision was made to start hemodialysis soon however patient condition deteriorated fast and patient and her family decided to return to emergency room. Due to shortness of breath patient had a VQ scan done in the emergency room, there was no clear evidence of any pulmonary embolism, there was matching ventilation and perfusion defects and the scan was read as intermediate probability for pulmonary embolus. Consultation for cardiology, pulmonary, nephrology were initiated in the emergency room. Patient was seen and examined on the telemetry floor, she is alert and oriented 3 in no apparent distress, at this time her chest pain has resolved and her shortness of breath has improved, she is still having significant bilateral lower extremity edema, otherwise she denies any complaints there is no fever or chills no headache or dizziness no chest pain, no cough no nausea or vomiting no abdominal pain no diarrhea no burning with urination no frequency or urgency no hematuria. On 10/07/2019 patient is alert and oriented 3. Patient does reports improvement with edema and shortness of breath. Patient remains on Lasix 40 every 8 hours. Patient still having some mild chest discomfort. Cardiology nephrology and pulmonary services are following. Venous Doppler was negative for DVTs. Urine culture has been ordered. On 10/08/2019 patient is alert and oriented 3. Family at bedside. Patient remains on IV Lasix. Plans for possible inpatient hemodialysis per nephrology recommendation. Family requesting to speak to Dr. Wellington in regards to VQ scan results before proceeding with hemodialysis. IV Lasix will be DC'd per nephrology and Demadex 20 mg daily ordered. Patient reports improvement with shortness of breath and chest pain. Per cardiology services anticoagulation has been switched from xarelto to eliquis. Objective - Vital Signs Vital signs: Vital Signs Temp 97.5 F L 10/08/19 12:00 Pulse 75 10/08/19 12:00 Resp 20 10/08/19 12:00 BP 100/56 10/08/19 12:00 Pulse Ox 95 10/08/19 12:00 Intake & Output 10/07/19 10/08/19 10/08/19 18:59 06:59 18:59 Intake Total 720 Output Total 850 700 200 Balance -130 -700 -200 Weight 87.5 kg Intake: Oral 720 Output: Urine 850 700 200 Other: Voiding Method Toilet Toilet Incontinent Incontinent # Voids 1 1 # Bowel Movements 2 - Exam In general patient is alert and oriented 3 in no apparent distress HEENT head normocephalic and atraumatic Neck is supple no JVD no goiter Chest exam reveals a scattered crackles bilaterally no wheezing Cardiac exam reveals regular heart sounds no gallops no murmurs Abdomen is soft nontender no organomegaly Extremity exam reveals 2+ edema no cyanosis or clubbing Neurological examination reveals no gross focal deficits - Labs CBC & Chem 7: 10/07/19 05:59 10/08/19 05:55 Labs: Abnormal Lab Results - Last 24 Hours (Table) 10/07/19 10/07/19 10/08/19 Range/Units 16:24 20:38 05:55 Carbon Dioxide 20 L (22-30) mmol/L BUN 93 H (7-17) mg/dL Creatinine 3.02 H (0.52-1.04) mg/dL POC Glucose (mg/dL) 125 H 144 H (75-99) mg/dL Magnesium 1.4 L (1.6-2.3) mg/dL 10/08/19 10/08/19 Range/Units 06:24 11:30 Carbon Dioxide (22-30) mmol/L BUN (7-17) mg/dL Creatinine (0.52-1.04) mg/dL POC Glucose (mg/dL) 103 H 120 H (75-99) mg/dL Magnesium (1.6-2.3) mg/dL Microbiology - Last 24 Hours (Table) 10/07/19 02:06 Urine Culture - Final Urine,Clean Catch Assessment and Plan Assessment: #1 severe shortness of breath improved most likely related to fluid overload patient was started on IV Lasix and consultation for nephrology was initiated to assess if patient needs to be started on hemodialysis during this admission. Patient and family are still waiting to make final decision in regards to hemodialysis. Would like to discuss with Dr. Wellington prior to making decision. Per nephrology IV Lasix has been DC'd and patient switched to Demadex #2 abnormal chest x-ray revealing evidence of hilar fullness, will continue to monitor and repeat chest x-ray once fluid overload has resolved #3 indeterminate VQ scan, doubt pulmonary embolism, bilateral lower extremity Doppler was ordered. Venous Doppler of lower extremities showing no active DVT in the lower extremity. Persistent long segment thrombus in the right lower x- ray has been present on prior studies. Doppler study completed of upper extremities are negative for DVT in either extremity #4 underlying history of chronic atrial fibrillation #5 underlying history of chronic kidney disease #6 underlying history of diabetes mellitus #7 underlying history of hypertension #8 underlying history of anemia #9. Urinary tract infection. Patient started on Rocephin. Urine culture ordered DVT prophylaxis eliquis. GI prophylaxis Protonix Pulmonary cardiology and nephrology consultation requested Will recheck labs in a.m. and follow closely I performed an examination of the patient and discussed their management with the Nurse Practitioner. I have reviewed the Nurse Practitioner's notes and agree with the documented findings and plan of care
--- NOTE | 2019-10-08 13:55 | P.PN ---
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 Indeterminate VQ scan less likely PE Chronic renal failure 10/08/2019, patient seen eval reexamined during the rounds sitting upright on the chest on the chair breathing comfortably denies any chest pain, due to chronic renal failure renal services to hemodialysis patient has been taken off of anticoagulation dialysis catheter is being planned for tomorrow, duplex ultrasound of the lower extremity revealed a chronic old thrombosis in the near and right lower extremity left is negative up her extremities are also negative for acute DVT This is a 84-year-old female with chronic atrial fibrillation well-known to me patient has been on chronic long-term lifelong anticoagulation she has chronic atrial fibrillation small pleural effusion, she has a congestive heart failure due to that, patient this morning woke up with chronic stable shortness of breath and some left-sided chest pain improved with applying pressure, came into emergency department, patient has been recently discharged from the hospital yesterday, patient underwent a chest x-ray revealed prominent right hilum and cardiomegaly no pleural effusion seen, VQ scan shows matching defects, labs significant for elevated BUN/creatinine of 96 and 2.87, BNP is over 15,000, Objective - Vital Signs Vital signs: Vital Signs Temp 97.5 F L 10/08/19 12:00 Pulse 75 10/08/19 12:00 Resp 20 10/08/19 12:00 BP 100/56 10/08/19 12:00 Pulse Ox 95 10/08/19 12:00 Intake & Output 10/07/19 10/08/19 10/08/19 18:59 06:59 18:59 Intake Total 720 240 Output Total 850 700 200 Balance -130 -700 40 Weight 87.5 kg Intake: Oral 720 240 Output: Urine 850 700 200 Other: Voiding Method Toilet Toilet Toilet Incontinent Incontinent Incontinent # Voids 1 1 # Bowel Movements 2 - Exam - Constitutional General appearance: average body habitus, disheveled, no acute distress - EENT Eyes: EOMI, PERRLA Ears: bilateral: normal - Neck Carotids: bilateral: upstroke normal - Respiratory Respiratory: bilateral: CTA - Cardiovascular Rhythm: regular Heart sounds: normal: S1, S2 - Gastrointestinal General gastrointestinal: decreased bowel sounds - Neurologic Neurologic: CNII-XII intact - Musculoskeletal Musculoskeletal: gait normal, generalized weakness, strength equal bilaterally - Psychiatric Psychiatric: A&O x's 3, appropriate affect, intact judgment & insight - Labs CBC & Chem 7: 10/07/19 05:59 10/08/19 05:55 Labs: Abnormal Lab Results - Last 24 Hours (Table) 10/07/19 10/07/19 10/08/19 Range/Units 16:24 20:38 05:55 Carbon Dioxide 20 L (22-30) mmol/L BUN 93 H (7-17) mg/dL Creatinine 3.02 H (0.52-1.04) mg/dL POC Glucose (mg/dL) 125 H 144 H (75-99) mg/dL Magnesium 1.4 L (1.6-2.3) mg/dL 10/08/19 10/08/19 Range/Units 06:24 11:30 Carbon Dioxide (22-30) mmol/L BUN (7-17) mg/dL Creatinine (0.52-1.04) mg/dL POC Glucose (mg/dL) 103 H 120 H (75-99) mg/dL Magnesium (1.6-2.3) mg/dL Microbiology - Last 24 Hours (Table) 10/07/19 02:06 Urine Culture - Final Urine,Clean Catch Assessment and Plan Assessment: Atypical chest pain Chronic renal failure Abnormal x-ray with hilar fullness Chronic atrial fibrillation on lifelong anticoagulation with his Xarelto Indeterminate VQ scan less likely PE Plan: For hemodialysis per renal services Continue anticoagulation hold for dialysis catheter placement Reviewed duplex ultrasound of both upper and lower extremity Follow clinical course closely Time with Patient: Greater than 30
[2019-10-08] MEDS: TORSEMIDE 20 MG TAB PO SCH (14:22)
[2019-10-08 16:59] LABS: Glucose,Whole Blood 168 mg/dL (75-99)
[2019-10-08] MEDS: LINAGLIPTIN 5 MG TABLET PO SCH (17:09)
--- NOTE | 2019-10-08 17:39 | PN ---
PROGRESS NOTE Mrs. Carrillo is an 84-year-old female with known history of mitral valve disease, history of hypertension, atrial fibrillation, diabetes and progressive renal failure who presented with symptoms of back discomfort, shoulder discomfort, chest pain and worsening dyspnea. She is feeling better today. She has no symptoms of chest pain. Her breathing has been stable. She denies any dizziness or palpitation. The plan is to proceed with placement of dialysis catheter tomorrow. Her Eliquis has been on hold because of that. She continues to be on PhosLo, Rocephin, Trusopt, iron, insulin, isosorbide mononitrate 60 mg daily, Tradjenta 5 mg daily, metoprolol tartrate 50 mg twice a day and 25 at noontime, midodrine, Zofran, potassium, sodium bicarb and Demadex 20 mg daily. PHYSICAL EXAMINATION: Blood pressure 100/56 with a heart rate in the 70s. LUNGS: Clear. HEART: Irregularly irregular. S1, S2. No S3. Systolic murmur at the apex. Holosystolic murmur radiating to the axilla. No diastolic murmur. ABDOMEN: Soft, nontender. EXTREMITIES: One plus edema. LAB DATA: Lab data revealed BUN and creatinine of 93 and 3.02, potassium 3.7, magnesium 1.4. IMPRESSION: 1. Progressive symptoms of dyspnea with chest discomfort; no evidence for acute coronary syndrome, with worsening renal failure. 2. History of mitral regurgitation. 3. Atrial fibrillation. 4. Chronic heart failure, stable at this time, with prior impaired systolic function and mitral regurgitation. 5. History of pulmonary hypertension. RECOMMENDATIONS: From the cardiac standpoint, will continue therapy, re-initiate treatment with Eliquis after the catheter is placed, and continue the rest of her medical regimen. I discussed those findings and recommendations with the patient as well as her family. MMODL / IJN: [id number] /
--- NOTE | 2019-10-08 18:23 | ECHOF ---
Referral Reason:Heart Failure MEASUREMENTS -------- HEIGHT: 157.5 cm WEIGHT: 87.1 kg BP: 132/64 RVIDd: 5.5 cm (< 3.3) IVSd: 1.2 cm (0.6 - 1.1) LVIDd: 5.1 cm (3.9 - 5.3) LVPWd: 1.2 cm (0.6 - 1.1) IVSs: 1.4 cm LVIDs: 4.0 cm LVPWs: 1.4 cm LAESV Index (A-L): 57.88 ml/m Ao Diam: 2.7 cm (2.0 - 3.7) AV Cusp: 1.0 cm (1.5 - 2.6) MV E Cortez: 1.41 m/s MV DecT: 178 ms MV A Cortez: 0.43 m/s MV E/A Ratio: 3.24 AV maxP.91 mmHg AV meanP.39 mmHg RAP: 20.00 mmHg RVSP: 65.49 mmHg FINDINGS -------- Undetermined rhythm. This was a technically adequate study. The left ventricular size is normal. There is mild concentric left ventricular hypertrophy. There is severe global hypokinesis of LV . Overall left ventricular systolic function is severely impair ed with, an EF between 25 - 30 %. Left ventricular fillimg pressure cannot be estimated due to shantell re mitral regurgitation. The right ventricle is severely enlarged. LA is severely dilated >40 ml/m2 The right atrium is markedly enlarged. Interatrial and interventricular septum intact. There is no evidence of aortic regurgitation. There is mild aortic stenosis present. Peak/mean gr adient across the Aortic Valve is 24.91mmHg / 15.39mmHg. Mild mitral annular calcification present. Severe mitral regurgitation is present. Severe tricuspid regurgitation present. Right ventricular systolic pressure is normal at < 35 mmHg. There is severe pulmonary hypertension. Trace/mild (physiologic) pulmonic regurgitation. The aortic root size is normal. The inferior vena cava is dilated with poor inspiratory collapse which is consistent with estimated r ight atrial pressure of 20 mmHg. There is no pericardial effusion. CONCLUSIONS -------- 1. Undetermined rhythm. 2. This was a technically adequate study. 3. The left ventricular size is normal. 4. There is mild concentric left ventricular hypertrophy. 5. Overall left ventricular systolic function is severely impaired with, an EF between 25 - 30 %. 6. Left ventricular fillimg pressure cannot be estimated due to severe mitral regurgitation. 7. The right ventricle is severely enlarged. 8. LA is severely dilated >40 ml/m2 9. The right atrium is markedly enlarged. 10. Interatrial and interventricular septum intact. 11. There is no evidence of aortic regurgitation. 12. There is mild aortic stenosis present. 13. Peak/mean gradient across the Aortic Valve is 24.91mmHg / 15.39mmHg. 14. Mild mitral annular calcification present. 15. Severe mitral regurgitation is present. 16. Severe tricuspid regurgitation present. 17. Right ventricular systolic pressure is normal at < 35 mmHg. 18. Trace/mild (physiologic) pulmonic regurgitation. 19. The aortic root size is normal. 20. The inferior vena cava is dilated with poor inspiratory collapse which is consistent with estimat ed right atrial pressure of 20 mmHg. 21. There is no pericardial effusion. SWITCHBOX ASSEMBLER: Radha Menjivar RDCS
--- NOTE | 2019-10-08 20:21 | CONS ---
DATE OF CONSULTATION: 10/08/2019 This patient is an 84-year-old female. I was consulted for placement of a dialysis catheter. The patient has history of chronic kidney disease, volume overload, metabolic acidosis, acute on chronic congestive heart failure, diabetes mellitus, chronic kidney disease, atrial fibrillation. PHYSICAL EXAMINATION: Patient was seen in her room. NECK: Supple. CHEST: Clear to auscultation. Breath sounds decreased bilaterally. First and second sounds normal. ABDOMEN: Soft, nontender. The patient has swelling of both lower extremities with pitting edema. PLAN: We will discuss with the family and the patient dialysis catheter placement. We will arrange. EL / HARRISONN: [id number] / MTDD
[2019-10-08 20:32] LABS: Glucose,Whole Blood 134 mg/dL (75-99)
[2019-10-09] MEDS: Acetaminophen-Codeine 300-30mg TAB PO SCH ×4 (02:33→23:29)
[2019-10-09] MEDS: MAGNESIUM SULFATE-D5W PMX 1 GM in DEXTROSE/WATER 1 100ML.BAG IVPB SCH ×3 (02:52→05:01)
[2019-10-09 06:16] LABS: Glucose,Whole Blood 134 mg/dL (75-99)
[2019-10-09] MEDS: MIDODRINE 5 MG TAB PO SCH ×3 (06:43→23:29)
[2019-10-09] MEDS: BRIMONIDINE TARTRATE 0.2% DROPS 5 ML BTL BOTH EYES SCH ×2 (06:43→21:28)
[2019-10-09] MEDS: METOPROLOL TARTRATE 25 MG TAB PO SCH ×3 (06:43→23:30)
[2019-10-09] MEDS: DORZOLAMIDE HCL 2% DROPS 10 ML BTL BOTH EYES SCH ×2 (06:43→21:28)
[2019-10-09] MEDS: INSULIN ASPART (NovoLOG) 100 UNIT/ML VIAL SQ SCH ×4 (06:44→22:32)
[2019-10-09] MEDS: CALCIUM ACETATE 667 MG TAB PO SCH ×3 (06:44→17:10)
[2019-10-09] MEDS: PANTOPRAZOLE 40 MG TABLET PO SCH (06:44)
[2019-10-09] MEDS: POTASSIUM CHLORIDE ER 10 MEQ TAB.ER.PRT PO SCH ×2 (08:22→15:54)
[2019-10-09] MEDS: DOCUSATE 100 MG CAP PO SCH ×2 (08:22→21:28)
[2019-10-09] MEDS: CHOLECALCIFEROL 1,000 UNIT TAB PO SCH (08:22)
[2019-10-09] MEDS: SODIUM BICARBONATE TAB 650 MG TAB PO SCH ×3 (08:22→21:28)
[2019-10-09] MEDS: FERROUS SULFATE 325 MG TAB PO SCH (08:22)
[2019-10-09] MEDS: VIT A,C & E-LUTEIN-MINERALS 1 EACH TAB PO SCH ×2 (08:22→21:28)
[2019-10-09] MEDS: TORSEMIDE 20 MG TAB PO SCH (08:22)
[2019-10-09] MEDS: ALLOPURINOL 100 MG TAB PO SCH (08:23)
[2019-10-09 09:48] LABS: Anisocytosis Slight; Basophils % (A) 0 %; Eosinophils # (A) 0.2 k/uL (0-0.7); Eosinophils % (A) 3 %; HCT 31.4 % (34.0-46.0); Hypochromasia Slight; Lymphocytes # (A) 0.8 k/uL (1.0-4.8); Lymphocytes % (A) 12 %; MCH 35.8 pg (25.0-35.0); MCHC 31.8 g/dL (31.0-37.0); MCV 112.4 fL (80.0-100.0); Macrocytosis Marked; Mean Platelet Volume 9.7; Monocytes # (A) 0.3 k/uL (0-1.0); Monocytes % (A) 4 %; Neutrophils # (A) 5.3 k/uL (1.3-7.7); Neutrophils % (A) 79 %; Platelet Count 164 k/uL (150-450); RDW 17.3 % (11.5-15.5); WBC 6.7 k/uL (3.8-10.6)
[2019-10-09 09:52] LABS: Magnesium 2.8 mg/dL (1.6-2.3); Potassium 3.3 mmol/L (3.5-5.1)
[2019-10-09 10:32] LABS: Target Cells Present
--- NOTE | 2019-10-09 10:47 | P.PN ---
Subjective Patient is seen in follow-up for chronic kidney disease. Renal function is stable. Does have edema in lower extremities. Good urine output. Hemo dynamically stable. Scheduled for permacath placement today. Vital signs are stable. General: The patient appeared well nourished and normally developed. HEENT: Head exam is unremarkable. Neck is without jugular venous distension. LUNGS: Lungs are clear to auscultation and percussion. Breath sounds decreased. HEART: Rate and Rhythm are regular. First and second heart sounds normal. No murmurs, rubs or gallops. ABDOMEN: Abdominal exam reveals normal bowel sounds. Non-tender and non-distended. No evidence of peritonitis. EXTREMITITES: 1+ edema. Objective - Vital Signs Vital signs: Vital Signs Temp 97.4 F L 10/09/19 04:41 Pulse 79 10/09/19 04:41 Resp 18 10/09/19 04:41 BP 119/76 10/09/19 04:41 Pulse Ox 100 10/09/19 04:41 Intake & Output 10/08/19 10/09/19 10/09/19 18:59 06:59 18:59 Intake Total 830 480 500 Output Total 700 300 Balance 130 480 200 Weight 86.1 kg Intake: IV 350 Magnesium Sulfate-D5w Pmx 300 1 gm In Dextrose/Water 1 100ml.bag @ 100 mls/hr IVPB Q1H [facility] Rx#: [id number] cefTRIAXone 1 gm In 50 Sodium Chloride 0.9% 50 ml @ 100 mls/hr IVPB Q24HR [facility] Rx#:[id number] Oral 480 480 500 Output: Urine 700 300 Other: Voiding Method Toilet Toilet Incontinent Incontinent - Labs CBC & Chem 7: 10/09/19 08:37 10/09/19 08:37 Labs: Abnormal Lab Results - Last 24 Hours (Table) 10/08/19 10/08/19 10/08/19 Range/Units 11:30 16:44 20:30 RBC (3.80-5.40) m/uL Hgb (11.4-16.0) gm/dL Hct (34.0-46.0) % MCV (80.0-100.0) fL MCH (25.0-35.0) pg RDW (11.5-15.5) % Lymphocytes # (1.0-4.8) k/uL Macrocytosis Potassium (3.5-5.1) mmol/L Carbon Dioxide (22-30) mmol/L BUN (7-17) mg/dL Creatinine (0.52-1.04) mg/dL Glucose (74-99) mg/dL POC Glucose (mg/dL) 120 H 168 H 134 H (75-99) mg/dL Magnesium (1.6-2.3) mg/dL 10/09/19 10/09/19 10/09/19 Range/Units 06:15 08:37 08:37 RBC 2.80 L (3.80-5.40) m/uL Hgb 10.0 L (11.4-16.0) gm/dL Hct 31.4 L (34.0-46.0) % MCV 112.4 H (80.0-100.0) fL MCH 35.8 H (25.0-35.0) pg RDW 17.3 H (11.5-15.5) % Lymphocytes # 0.8 L (1.0-4.8) k/uL Macrocytosis Marked A Potassium 3.3 L (3.5-5.1) mmol/L Carbon Dioxide 19 L (22-30) mmol/L BUN 85 H (7-17) mg/dL Creatinine 3.07 H (0.52-1.04) mg/dL Glucose 127 H (74-99) mg/dL POC Glucose (mg/dL) 134 H (75-99) mg/dL Magnesium 2.8 H (1.6-2.3) mg/dL Microbiology - Last 24 Hours (Table) 10/07/19 02:06 Urine Culture - Final Urine,Clean Catch Assessment and Plan Plan: Assessment: 1. 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 GFR at baseline. 2. Volume overload. Improved with IV Lasix. Patient's volume status is quite labile and has been difficult to control outpatient. 3. Metabolic acidosis secondary to chronic kidney disease maintained on oral bicarbonate. 4. Acute on chronic systolic CHF with ejection fraction of 35-40% with moderate to severe mitral and tricuspid regurgitation. 5. Moderate pulmonary hypertension. 6. Dyspnea mostly due to fluid overload. No evidence of DVT. 7. Diabetes mellitus. 8. Chronic kidney disease mineral bone disease maintained on calcitriol and PhosLo. 9. Hypomagnesemia secondary to diuresis. Improved post replacement. 10. Hypokalemia secondary to diuresis. Plan: Continue Demadex 20 mg once daily. Permacath replaced today. She is agreeable to start renal replacement therapy. Plan for first treatment of hemodialysis today and another treatment tomorrow. business control manager to help set up outpatient dialysis. Maintain potassium supplementation.
--- NOTE | 2019-10-09 11:13 | P.PN ---
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 Indeterminate VQ scan less likely PE Chronic renal failure 10/09/2019, patient seen eval examined during the rounds labs reviewed medications reviewed respiratory status stable patient is a 4 permacath placement later on today hemodynamic shoes stable patient is a going to undergo hemodialysis as planned by renal services, labs are reviewed BUN/creatinine is elevated 85/3.07, blood pressure in the lower side, oxygen saturation is 99% on room air 10/08/2019, patient seen eval reexamined during the rounds sitting upright on the chest on the chair breathing comfortably denies any chest pain, due to chronic renal failure renal services to hemodialysis patient has been taken off of anticoagulation dialysis catheter is being planned for tomorrow, duplex ultrasound of the lower extremity revealed a chronic old thrombosis in the near and right lower extremity left is negative up her extremities are also negative for acute DVT This is a 84-year-old female with chronic atrial fibrillation well-known to me patient has been on chronic long-term lifelong anticoagulation she has chronic atrial fibrillation small pleural effusion, she has a congestive heart failure due to that, patient this morning woke up with chronic stable shortness of breath and some left-sided chest pain improved with applying pressure, came into emergency department, patient has been recently discharged from the hospital yesterday, patient underwent a chest x-ray revealed prominent right hilum and cardiomegaly no pleural effusion seen, VQ scan shows matching defects, labs significant for elevated BUN/creatinine of 96 and 2.87, BNP is over 15,000, Objective - Vital Signs Vital signs: Vital Signs Temp 97.4 F L 10/09/19 04:41 Pulse 72 10/09/19 08:10 Resp 18 10/09/19 08:10 BP 96/49 10/09/19 08:10 Pulse Ox 99 10/09/19 08:10 Intake & Output 10/08/19 10/09/19 10/09/19 18:59 06:59 18:59 Intake Total 830 480 500 Output Total 700 300 Balance 130 480 200 Weight 86.1 kg Intake: IV 350 Magnesium Sulfate-D5w Pmx 300 1 gm In Dextrose/Water 1 100ml.bag @ 100 mls/hr IVPB Q1H [facility] Rx#: [id number] cefTRIAXone 1 gm In 50 Sodium Chloride 0.9% 50 ml @ 100 mls/hr IVPB Q24HR [facility] Rx#:[id number] Oral 480 480 500 Output: Urine 700 300 Other: Voiding Method Toilet Toilet Toilet Incontinent Incontinent Incontinent - Exam - Constitutional General appearance: average body habitus, disheveled, no acute distress - EENT Eyes: EOMI, PERRLA Ears: bilateral: normal - Neck Carotids: bilateral: upstroke normal - Respiratory Respiratory: bilateral: CTA - Cardiovascular Rhythm: regular Heart sounds: normal: S1, S2 - Gastrointestinal General gastrointestinal: decreased bowel sounds - Neurologic Neurologic: CNII-XII intact - Musculoskeletal Musculoskeletal: gait normal, generalized weakness, strength equal bilaterally - Psychiatric Psychiatric: A&O x's 3, appropriate affect, intact judgment & insight - Labs CBC & Chem 7: 10/09/19 08:37 10/09/19 08:37 Labs: Abnormal Lab Results - Last 24 Hours (Table) 10/08/19 10/08/19 10/08/19 Range/Units 11:30 16:44 20:30 RBC (3.80-5.40) m/uL Hgb (11.4-16.0) gm/dL Hct (34.0-46.0) % MCV (80.0-100.0) fL MCH (25.0-35.0) pg RDW (11.5-15.5) % Lymphocytes # (1.0-4.8) k/uL Macrocytosis Potassium (3.5-5.1) mmol/L Carbon Dioxide (22-30) mmol/L BUN (7-17) mg/dL Creatinine (0.52-1.04) mg/dL Glucose (74-99) mg/dL POC Glucose (mg/dL) 120 H 168 H 134 H (75-99) mg/dL Magnesium (1.6-2.3) mg/dL 10/09/19 10/09/19 10/09/19 Range/Units 06:15 08:37 08:37 RBC 2.80 L (3.80-5.40) m/uL Hgb 10.0 L (11.4-16.0) gm/dL Hct 31.4 L (34.0-46.0) % MCV 112.4 H (80.0-100.0) fL MCH 35.8 H (25.0-35.0) pg RDW 17.3 H (11.5-15.5) % Lymphocytes # 0.8 L (1.0-4.8) k/uL Macrocytosis Marked A Potassium 3.3 L (3.5-5.1) mmol/L Carbon Dioxide 19 L (22-30) mmol/L BUN 85 H (7-17) mg/dL Creatinine 3.07 H (0.52-1.04) mg/dL Glucose 127 H (74-99) mg/dL POC Glucose (mg/dL) 134 H (75-99) mg/dL Magnesium 2.8 H (1.6-2.3) mg/dL Microbiology - Last 24 Hours (Table) 10/07/19 02:06 Urine Culture - Final Urine,Clean Catch Assessment and Plan Assessment: Atypical chest pain Chronic renal failure likely cardiorenal Abnormal x-ray with hilar fullness Chronic atrial fibrillation on lifelong anticoagulation with his Xarelto Indeterminate VQ scan less likely PE Chronic pleural effusion Plan: For hemodialysis per renal services Continue anticoagulation hold for dialysis catheter placement Reviewed duplex ultrasound of both upper and lower extremity Follow clinical course closely Resume anticoagulation post dialysis catheter placement, Computed tomography scan of the chest to be performed once patient is stable without dye t Time with Patient: Greater than 30
[2019-10-09 11:39] LABS: Glucose,Whole Blood 142 mg/dL (75-99)
[2019-10-09] MEDS: ISOSORBIDE MONONITRATE ER 60 MG TAB.ER.24H PO SCH (12:16)
--- NOTE | 2019-10-09 12:43 | P.PN ---
Subjective Progress Note Date: 10/09/19 Trina Carrillo, he is an 84-year-old female who was recently discharged from [facility], who presented to emergency room was a chief complaint of worsening shortness of breath, sharp pain in the chest, and significant swelling in the bilateral lower extremity, she was evaluated in emergency room and was admitted to telemetry floor for further evaluation and treatment BNP was elevated at 15,800 patient has known history of chronic renal failure with elevated BUN and creatinine she was evaluated by nephrology last admission and decision was made to start hemodialysis soon however patient condition deteriorated fast and patient and her family decided to return to emergency room. Due to shortness of breath patient had a VQ scan done in the emergency room, there was no clear evidence of any pulmonary embolism, there was matching ventilation and perfusion defects and the scan was read as intermediate probability for pulmonary embolus. Consultation for cardiology, pulmonary, nephrology were initiated in the emergency room. Patient was seen and examined on the telemetry floor, she is alert and oriented 3 in no apparent distress, at this time her chest pain has resolved and her shortness of breath has improved, she is still having significant bilateral lower extremity edema, otherwise she denies any complaints there is no fever or chills no headache or dizziness no chest pain, no cough no nausea or vomiting no abdominal pain no diarrhea no burning with urination no frequency or urgency no hematuria. On 10/07/2019 patient is alert and oriented 3. Patient does reports improvement with edema and shortness of breath. Patient remains on Lasix 40 every 8 hours. Patient still having some mild chest discomfort. Cardiology nephrology and pulmonary services are following. Venous Doppler was negative for DVTs. Urine culture has been ordered. On 10/08/2019 patient is alert and oriented 3. Family at bedside. Patient remains on IV Lasix. Plans for possible inpatient hemodialysis per nephrology recommendation. Family requesting to speak to Dr. Wellington in regards to VQ scan results before proceeding with hemodialysis. IV Lasix will be DC'd per nephrology and Demadex 20 mg daily ordered. Patient reports improvement with shortness of breath and chest pain. Per cardiology services anticoagulation has been switched from xarelto to eliquis. On 10/09/2019 patient is alert and oriented 3. Daughter at bedside. Patient has been started on Demadex IV Lasix DC'd plans for hemodialysis catheter access today per Dr. Collado anticoagulation currently on hold. Patient denies chest pain or shortness of breath. Patient denies nausea vomiting or diarrhea. Patie nt denies any urinary burning or frequency Objective - Vital Signs Vital signs: Vital Signs Temp 97.3 F L 10/09/19 11:37 Pulse 64 10/09/19 11:37 Resp 18 10/09/19 11:37 BP 107/61 10/09/19 11:37 Pulse Ox 99 10/09/19 11:37 Intake & Output 10/08/19 10/09/19 10/09/19 18:59 06:59 18:59 Intake Total 830 480 500 Output Total 700 600 Balance 130 480 -100 Weight 86.1 kg Intake: IV 350 Magnesium Sulfate-D5w Pmx 300 1 gm In Dextrose/Water 1 100ml.bag @ 100 mls/hr IVPB Q1H [facility] Rx#: [id number] cefTRIAXone 1 gm In 50 Sodium Chloride 0.9% 50 ml @ 100 mls/hr IVPB Q24HR [facility] Rx#:[id number] Oral 480 480 500 Output: Urine 700 600 Other: Voiding Method Toilet Toilet Toilet Incontinent Incontinent Incontinent - Exam In general patient is alert and oriented 3 in no apparent distress HEENT head normocephalic and atraumatic Neck is supple no JVD no goiter Chest exam reveals a scattered crackles bilaterally no wheezing Cardiac exam reveals regular heart sounds no gallops no murmurs Abdomen is soft nontender no organomegaly Extremity exam reveals 2+ edema no cyanosis or clubbing Neurological examination reveals no gross focal deficits - Labs CBC & Chem 7: 10/09/19 08:37 10/09/19 08:37 Labs: Abnormal Lab Results - Last 24 Hours (Table) 10/08/19 10/08/19 10/09/19 Range/Units 16:44 20:30 06:15 RBC (3.80-5.40) m/uL Hgb (11.4-16.0) gm/dL Hct (34.0-46.0) % MCV (80.0-100.0) fL MCH (25.0-35.0) pg RDW (11.5-15.5) % Lymphocytes # (1.0-4.8) k/uL Macrocytosis Potassium (3.5-5.1) mmol/L Carbon Dioxide (22-30) mmol/L BUN (7-17) mg/dL Creatinine (0.52-1.04) mg/dL Glucose (74-99) mg/dL POC Glucose (mg/dL) 168 H 134 H 134 H (75-99) mg/dL Magnesium (1.6-2.3) mg/dL 10/09/19 10/09/19 10/09/19 Range/Units 08:37 08:37 11:27 RBC 2.80 L (3.80-5.40) m/uL Hgb 10.0 L (11.4-16.0) gm/dL Hct 31.4 L (34.0-46.0) % MCV 112.4 H (80.0-100.0) fL MCH 35.8 H (25.0-35.0) pg RDW 17.3 H (11.5-15.5) % Lymphocytes # 0.8 L (1.0-4.8) k/uL Macrocytosis Marked A Potassium 3.3 L (3.5-5.1) mmol/L Carbon Dioxide 19 L (22-30) mmol/L BUN 85 H (7-17) mg/dL Creatinine 3.07 H (0.52-1.04) mg/dL Glucose 127 H (74-99) mg/dL POC Glucose (mg/dL) 142 H (75-99) mg/dL Magnesium 2.8 H (1.6-2.3) mg/dL Microbiology - Last 24 Hours (Table) 10/07/19 02:06 Urine Culture - Final Urine,Clean Catch Assessment and Plan Assessment: #1 severe shortness of breath improved most likely related to fluid overload patient was started on IV Lasix and consultation for nephrology was initiated to assess if patient needs to be started on hemodialysis during this admission. Patient and family are still waiting to make final decision in regards to hemodialysis. Would like to discuss with Dr. Wellington prior to making decision. Per nephrology IV Lasix has been DC'd and patient switched to Demadex. Plans for hemodialysis catheter access today per Dr. Collado #2 abnormal chest x-ray revealing evidence of hilar fullness, will continue to monitor and repeat chest x-ray once fluid overload has resolved #3 indeterminate VQ scan, doubt pulmonary embolism, bilateral lower extremity Doppler was ordered. Venous Doppler of lower extremities showing no active DVT in the lower extremity. Persistent long segment thrombus in the right lower x- ray has been present on prior studies. Doppler study completed of upper extremities are negative for DVT in either extremity #4 underlying history of chronic atrial fibrillation #5 underlying history of chronic kidney disease #6 underlying history of diabetes mellitus #7 underlying history of hypertension #8 underlying history of anemia #9. Urinary tract infection. Patient started on Rocephin. Urine culture ordered DVT prophylaxis eliquis. GI prophylaxis Protonix Pulmonary cardiology and nephrology consultation requested Will recheck labs in a.m. and follow closely I performed an examination of the patient and discussed their management with the Nurse Practitioner. I have reviewed the Nurse Practitioner's notes and agree with the documented findings and plan of care
--- NOTE | 2019-10-09 14:05 | P.PN ---
Subjective Progress Note Date: 10/09/19 This is an 84-year-old female with history of persistent atrial fibrillation, chronic kidney disease, systolic congestive heart failure, presented to the hospital with progressive dyspnea, she is being treated for congestive heart failure here. Patient also has aggressively worsening renal failure and is being seen by nephrology. The plan is for the patient to undergo dialysis catheter placement today and perhaps be initiated on dialysis at either this evening or tomorrow morning. This morning the patient was sitting up in the chair at bedside, overall feels well, continues to have significant bilateral peripheral edema. Blood pressure 106/60 heart rate in the 60s, 99% on room air. Sodium 139, potassium 3.3, BUN 85, creatinine 3.0. Blood cell count 6.7, hemoglobin 10.0, platelet count 164. Magnesium 2.8 Objective - Vital Signs Vital signs: Vital Signs Temp 97.3 F L 10/09/19 11:37 Pulse 64 10/09/19 11:37 Resp 18 10/09/19 11:37 BP 107/61 10/09/19 11:37 Pulse Ox 99 10/09/19 11:37 Intake & Output 10/08/19 10/09/19 10/09/19 18:59 06:59 18:59 Intake Total 830 480 500 Output Total 700 600 Balance 130 480 -100 Weight 86.1 kg Intake: IV 350 Magnesium Sulfate-D5w Pmx 300 1 gm In Dextrose/Water 1 100ml.bag @ 100 mls/hr IVPB Q1H [facility] Rx#: [id number] cefTRIAXone 1 gm In 50 Sodium Chloride 0.9% 50 ml @ 100 mls/hr IVPB Q24HR [facility] Rx#:[id number] Oral 480 480 500 Output: Urine 700 600 Other: Voiding Method Toilet Toilet Toilet Incontinent Incontinent Incontinent - Exam PHYSICAL EXAMINATION: GENERAL: 84-year-old female in no acute distress at the time of my examination HEENT: Head is atraumatic, normocephalic. Pupils equal, round. Sclera anicteric. Conjunctiva are clear. Mucous membranes of the mouth are moist. Nec k is supple. There is no elevated jugular venous pressure. No carotid bruit is heard. HEART EXAMINATION: Heart S1 and S2 irregularly irregular systolic murmur is heard at the apex, holosystolic murmur is heard. CHEST EXAMINATION: Lungs are clear to auscultation and precussion. No chest wall tenderness is noted on palpation or with deep breathing. ABDOMEN: Soft, nontender. Bowel sounds are heard. No organomegaly noted. EXTREMITIES:[ 2+ peripheral pulses with 1+ evidence of lower extremity peripheral edema NEUROLOGIC patient is awake, alert and oriented 3. . - Labs CBC & Chem 7: 10/09/19 08:37 10/09/19 08:37 Labs: Abnormal Lab Results - Last 24 Hours (Table) 10/08/19 10/08/19 10/09/19 Range/Units 16:44 20:30 06:15 RBC (3.80-5.40) m/uL Hgb (11.4-16.0) gm/dL Hct (34.0-46.0) % MCV (80.0-100.0) fL MCH (25.0-35.0) pg RDW (11.5-15.5) % Lymphocytes # (1.0-4.8) k/uL Macrocytosis Potassium (3.5-5.1) mmol/L Carbon Dioxide (22-30) mmol/L BUN (7-17) mg/dL Creatinine (0.52-1.04) mg/dL Glucose (74-99) mg/dL POC Glucose (mg/dL) 168 H 134 H 134 H (75-99) mg/dL Magnesium (1.6-2.3) mg/dL 10/09/19 10/09/19 10/09/19 Range/Units 08:37 08:37 11:27 RBC 2.80 L (3.80-5.40) m/uL Hgb 10.0 L (11.4-16.0) gm/dL Hct 31.4 L (34.0-46.0) % MCV 112.4 H (80.0-100.0) fL MCH 35.8 H (25.0-35.0) pg RDW 17.3 H (11.5-15.5) % Lymphocytes # 0.8 L (1.0-4.8) k/uL Macrocytosis Marked A Potassium 3.3 L (3.5-5.1) mmol/L Carbon Dioxide 19 L (22-30) mmol/L BUN 85 H (7-17) mg/dL Creatinine 3.07 H (0.52-1.04) mg/dL Glucose 127 H (74-99) mg/dL POC Glucose (mg/dL) 142 H (75-99) mg/dL Magnesium 2.8 H (1.6-2.3) mg/dL Microbiology - Last 24 Hours (Table) 10/07/19 02:06 Urine Culture - Final Urine,Clean Catch Assessment and Plan Plan: Assessment and plan #1 systolic congestive heart failure acute on chronic #2 history of mitral regurgitation #3 persistent atrial fibrillation #4 pulmonary hypertension #5 acute on chronic renal failure #6 history of DVT with prior [place] filter #7 diabetes #8 hypertension #9 hyperlipidemia Plan Patient will undergo dialysis catheter placement today. Following that we will need to resume the patient's Eliquis. We will continue to follow. DNP note has been reviewed, I agree with a documented findings and plan of care. Patient was seen and examined.
[2019-10-09] MEDS: LINAGLIPTIN 5 MG TABLET PO SCH (15:58)
[2019-10-09 16:32] LABS: Glucose,Whole Blood 83 mg/dL (75-99)
[2019-10-09 19:03] LABS: Glucose,Whole Blood 82 mg/dL (75-99)
[2019-10-09 19:38] LABS: Hepatitis B Surface AB- Quant 3.5 mIU/mL; Hepatitis B Surface Antibody Non-Reactive (Non-Reactive); Hepatitis B Surface Antigen Non-Reactive (Non-Reactive)
[2019-10-09] MEDS ORDERED: MIDAZOLAM 2 MG/2 ML VIAL IVP ONE (20:26)
[2019-10-09] MEDS ORDERED: fentaNYL (PF) 50 MCG/ML 2 ML AMP IV ONE (20:26)
[2019-10-09] MEDS ORDERED: LIDOCAINE 1% INJ 10MG/ML (20 ML MDV) SQ ONE ×2 (20:26→20:33)
[2019-10-09] MEDS ORDERED: IV FLUID CONTINUATION 300 ML IV ONE (20:30)
[2019-10-09 21:07] LABS: Glucose,Whole Blood 87 mg/dL (75-99)
--- NOTE | 2019-10-09 21:21 | OP ---
OPERATIVE REPORT PREOPERATIVE DIAGNOSIS: Acute on chronic renal failure. PROCEDURE: Ultrasound-guided 19 cm dialysis catheter placement, right jugular approach. PROCEDURE DESCRIPTION: Sedation time is 18 minutes. The patient was brought to the labor training manager. Right side of the chest and neck was prepped. Drapes were applied in a sterile manner. Ultrasound- guided micropuncture was introduced into the right jugular vein. Guidewire was passed. Then the tunnel was created. Through the tunnel we brought a 19 cm dialysis catheter. Dilator was advanced on the top of the guidewire. The guidewire was parked in the inferior vena cava. Then the sheath was advanced on the top of the guidewire. Then we introduced the dialysis catheter through the sheath. Sheath was removed and tip of the catheter was in superior vena cava at the atrial junction. Flushed with heparin saline and hep-locked and secured with 3-0 nylon and Vicryl. Dressing was applied. Patient tolerated the procedure well. MMODL / IJN: [id number] /
--- NOTE | 2019-10-09 21:29 | XR ---
EXAMINATION TYPE: XR chest 1V portable DATE OF EXAM: 10/09/2019 COMPARISON: 10/06/2019 HISTORY: Chest pain TECHNIQUE: Single view FINDINGS: Heart is enlarged. There is coarse linear density in the mid lung devlin. There is no heart failure. There is right central venous catheter with tip in the superior vena cava. There is slight blunting of the costophrenic angles. IMPRESSION: Small pleural effusions. Subsegmental atelectasis. Cardiomegaly without obvious heart dinora lure. There is clearing of the pulmonary vascular congestion to a large extent compared to recent exa m.
[2019-10-10] MEDS: Acetaminophen-Codeine 300-30mg TAB PO SCH ×5 (05:21→23:11)
[2019-10-10 05:39] LABS: Glucose,Whole Blood 91 mg/dL (75-99)
[2019-10-10] MEDS: INSULIN ASPART (NovoLOG) 100 UNIT/ML VIAL SQ SCH ×4 (05:40→20:47)
[2019-10-10] MEDS: BRIMONIDINE TARTRATE 0.2% DROPS 5 ML BTL BOTH EYES SCH ×2 (06:00→20:50)
[2019-10-10] MEDS: DORZOLAMIDE HCL 2% DROPS 10 ML BTL BOTH EYES SCH ×2 (06:01→20:50)
[2019-10-10] MEDS: MIDODRINE 5 MG TAB PO SCH ×3 (06:01→23:11)
[2019-10-10] MEDS: METOPROLOL TARTRATE 25 MG TAB PO SCH ×3 (06:01→23:10)
[2019-10-10] MEDS: PANTOPRAZOLE 40 MG TABLET PO SCH (06:01)
[2019-10-10 06:19] LABS: Anisocytosis Slight; Basophils % (A) 0 %; Eosinophils # (A) 0.2 k/uL (0-0.7); Eosinophils % (A) 4 %; HCT 30.1 % (34.0-46.0); HGB 9.5 gm/dL (11.4-16.0); Hypochromasia Slight; Lymphocytes # (A) 0.7 k/uL (1.0-4.8); Lymphocytes % (A) 12 %; MCH 36.1 pg (25.0-35.0); MCHC 31.6 g/dL (31.0-37.0); Macrocytosis Marked; Mean Platelet Volume 9.1; Monocytes # (A) 0.4 k/uL (0-1.0); Monocytes % (A) 7 %; Neutrophils # (A) 4.5 k/uL (1.3-7.7); Neutrophils % (A) 75 %; Platelet Count 150 k/uL (150-450); RBC 2.64 m/uL (3.80-5.40); RDW 17.6 % (11.5-15.5)
[2019-10-10 06:26] LABS: MCV 114.4 fL (80.0-100.0)
[2019-10-10 06:35] LABS: Calcium 8.7 mg/dL (8.4-10.2)
[2019-10-10 06:45] LABS: Magnesium 2.6 mg/dL (1.6-2.3); Potassium 4.5 mmol/L (3.5-5.1)
[2019-10-10] MEDS: CALCIUM ACETATE 667 MG TAB PO SCH ×3 (06:46→17:31)
--- NOTE | 2019-10-10 09:05 | IR ---
EXAMINATION TYPE: IR cvc insert central tunneled DATE OF EXAM: 10/09/2019 COMPARISON: NONE HISTORY: Fluoroscopy time. Fluoroscopy was provided to the referring clinician.
[2019-10-10] MEDS: ISOSORBIDE MONONITRATE ER 60 MG TAB.ER.24H PO SCH (09:54)
[2019-10-10] MEDS: SODIUM BICARBONATE TAB 650 MG TAB PO SCH ×2 (09:59→17:28)
[2019-10-10] MEDS: CALCITRIOL 0.25 MCG CAP PO SCH (10:00)
[2019-10-10] MEDS: ALLOPURINOL 100 MG TAB PO SCH (10:00)
[2019-10-10] MEDS: FERROUS SULFATE 325 MG TAB PO SCH (10:00)
[2019-10-10] MEDS: POTASSIUM CHLORIDE ER 10 MEQ TAB.ER.PRT PO SCH ×2 (10:00→17:30)
[2019-10-10] MEDS: TORSEMIDE 20 MG TAB PO SCH (10:00)
[2019-10-10] MEDS: DOCUSATE 100 MG CAP PO SCH ×2 (10:00→20:47)
[2019-10-10] MEDS: CHOLECALCIFEROL 1,000 UNIT TAB PO SCH (10:01)
[2019-10-10] MEDS: VIT A,C & E-LUTEIN-MINERALS 1 EACH TAB PO SCH ×2 (10:01→20:50)
--- NOTE | 2019-10-10 10:13 | P.PN ---
Subjective Progress Note Date: 10/10/19 Trina Carrillo, he is an 84-year-old female who was recently discharged from [facility], who presented to emergency room was a chief complaint of worsening shortness of breath, sharp pain in the chest, and significant swelling in the bilateral lower extremity, she was evaluated in emergency room and was admitted to telemetry floor for further evaluation and treatment BNP was elevated at 15,800 patient has known history of chronic renal failure with elevated BUN and creatinine she was evaluated by nephrology last admission and decision was made to start hemodialysis soon however patient condition deteriorated fast and patient and her family decided to return to emergency room. Due to shortness of breath patient had a VQ scan done in the emergency room, there was no clear evidence of any pulmonary embolism, there was matching ventilation and perfusion defects and the scan was read as intermediate probability for pulmonary embolus. Consultation for cardiology, pulmonary, nephrology were initiated in the emergency room. Patient was seen and examined on the telemetry floor, she is alert and oriented 3 in no apparent distress, at this time her chest pain has resolved and her shortness of breath has improved, she is still having significant bilateral lower extremity edema, otherwise she denies any complaints there is no fever or chills no headache or dizziness no chest pain, no cough no nausea or vomiting no abdominal pain no diarrhea no burning with urination no frequency or urgency no hematuria. On 10/07/2019 patient is alert and oriented 3. Patient does reports improvement with edema and shortness of breath. Patient remains on Lasix 40 every 8 hours. Patient still having some mild chest discomfort. Cardiology nephrology and pulmonary services are following. Venous Doppler was negative for DVTs. Urine culture has been ordered. On 10/08/2019 patient is alert and oriented 3. Family at bedside. Patient remains on IV Lasix. Plans for possible inpatient hemodialysis per nephrology recommendation. Family requesting to speak to Dr. Wellington in regards to VQ scan results before proceeding with hemodialysis. IV Lasix will be DC'd per nephrology and Demadex 20 mg daily ordered. Patient reports improvement with shortness of breath and chest pain. Per cardiology services anticoagulation has been switched from xarelto to eliquis. On 10/09/2019 patient is alert and oriented 3. Daughter at bedside. Patient has been started on Demadex IV Lasix DC'd plans for hemodialysis catheter access today per Dr. Collado anticoagulation currently on hold. Patient denies chest pain or shortness of breath. Patient denies nausea vomiting or diarrhea. Patie nt denies any urinary burning or frequency On 10/10/2019 patient is alert and oriented 3. Patient underwent hemodialysis catheter placement on 10/09/[address] Collado. Plans for hemodialysis today and for the next 3 days per nephrology. At this time patient is tired resting in bed. Patient denies any chest pain does report some discomfort around hemodialysis site. Patient denies any urinary burning or frequency Objective - Vital Signs Vital signs: Vital Signs Temp 97.3 F L 10/10/19 04:00 Pulse 77 10/10/19 05:23 Resp 14 10/10/19 04:00 BP 115/67 10/10/19 05:23 Pulse Ox 99 10/10/19 04:00 Intake & Output 10/09/19 10/10/19 10/10/19 18:59 06:59 18:59 Intake Total 500 705 240 Output Total 600 Balance -100 705 240 Weight 86.4 kg Intake: IV 100 Oral 500 605 240 Output: Urine 600 Other: Voiding Method Toilet Toilet Incontinent Incontinent - Exam In general patient is alert and oriented 3 in no apparent distress HEENT head normocephalic and atraumatic. Hemodialysis port right upper chest wall Neck is supple no JVD no goiter Chest exam reveals a scattered crackles bilaterally no wheezing Cardiac exam reveals regular heart sounds no gallops no murmurs Abdomen is soft nontender no organomegaly Extremity exam reveals 2+ edema no cyanosis or clubbing Neurological examination reveals no gross focal deficits - Labs CBC & Chem 7: 10/10/19 05:28 10/10/19 05:28 Labs: Abnormal Lab Results - Last 24 Hours (Table) 10/09/19 10/09/19 10/10/19 Range/Units 08:37 11:27 05:28 RBC 2.80 L 2.64 L (3.80-5.40) m/uL Hgb 10.0 L 9.5 L (11.4-16.0) gm/dL Hct 31.4 L 30.1 L (34.0-46.0) % MCV 112.4 H 114.4 H (80.0-100.0) fL MCH 35.8 H 36.1 H (25.0-35.0) pg RDW 17.3 H 17.6 H (11.5-15.5) % Lymphocytes # 0.8 L 0.7 L (1.0-4.8) k/uL Macrocytosis Marked A Marked A Carbon Dioxide (22-30) mmol/L BUN (7-17) mg/dL Creatinine (0.52-1.04) mg/dL POC Glucose (mg/dL) 142 H (75-99) mg/dL Magnesium (1.6-2.3) mg/dL 10/10/19 Range/Units 05:28 RBC (3.80-5.40) m/uL Hgb (11.4-16.0) gm/dL Hct (34.0-46.0) % MCV (80.0-100.0) fL MCH (25.0-35.0) pg RDW (11.5-15.5) % Lymphocytes # (1.0-4.8) k/uL Macrocytosis Carbon Dioxide 20 L (22-30) mmol/L BUN 91 H (7-17) mg/dL Creatinine 2.71 H (0.52-1.04) mg/dL POC Glucose (mg/dL) (75-99) mg/dL Magnesium 2.6 H (1.6-2.3) mg/dL Assessment and Plan Assessment: #1 severe shortness of breath improved most likely related to fluid overload patient was started on IV Lasix and consultation for nephrology was initiated to assess if patient needs to be started on hemodialysis during this admission. Patient and family are still waiting to make final decision in regards to hemodialysis. Would like to discuss with Dr. Wellington prior to making decision. Per nephrology IV Lasix has been DC'd and patient switched to Demadex. Hemodialysis access achieved on 10/09/2019. Dr. Collado. Plans for hemodialysis for the next 3 days and patient #2 abnormal chest x-ray revealing evidence of hilar fullness, will continue to monitor and repeat chest x-ray once fluid overload has resolved #3 indeterminate VQ scan, doubt pulmonary embolism, bilateral lower extremity Doppler was ordered. Venous Doppler of lower extremities showing no active DVT in the lower extremity. Persistent long segment thrombus in the right lower x- ray has been present on prior studies. Doppler study completed of upper extremities are negative for DVT in either extremity #4 underlying history of chronic atrial fibrillation #5 underlying history of chronic kidney disease #6 underlying history of diabetes mellitus #7 underlying history of hypertension #8 underlying history of anemia #9. Urinary tract infection. Patient started on Rocephin. Urine culture ordered DVT prophylaxis eliquis. GI prophylaxis Protonix Pulmonary cardiology and nephrology consultation requested Will recheck labs in a.m. and follow closely I performed an examination of the patient and discussed their management with the Nurse Practitioner. I have reviewed the Nurse Practitioner's notes and agree with the documented findings and plan of care
[2019-10-10 11:50] LABS: Glucose,Whole Blood 119 mg/dL (75-99)
--- NOTE | 2019-10-10 12:27 | P.PN ---
Subjective Progress Note Date: 10/10/19 This is an 84-year-old female with history of persistent atrial fibrillation, chronic kidney disease, systolic congestive heart failure, presented to the hospital with progressive dyspnea, she is being treated for congestive heart failure here. Patient also has aggressively worsening renal failure and is being seen by nephrology. The plan is for the patient to undergo dialysis catheter placement today and perhaps be initiated on dialysis at either this evening or tomorrow morning. This morning the patient was sitting up in the chair at bedside, overall feels well, continues to have significant bilateral peripheral edema. Blood pressure 106/60 heart rate in the 60s, 99% on room air. Sodium 139, potassium 3.3, BUN 85, creatinine 3.0. Blood cell count 6.7, hemoglobin 10.0, platelet count 164. Magnesium 2.8. 10/10/2019 Patient seen and examined this morning, she had her dialysis catheter placed last night, she has not yet undergone dialysis. She is complaining of some mild discomfort at the site of her catheter but otherwise she's doing well. Scheduled for dialysis today. She will need to be resumed on her Eliquis, discuss this with Dr. Collado. Objective - Vital Signs Vital signs: Vital Signs Temp 96.8 F L 10/10/19 07:45 Pulse 71 10/10/19 07:45 Resp 18 10/10/19 07:45 BP 94/51 10/10/19 07:45 Pulse Ox 94 L 10/10/19 07:45 Intake & Output 10/09/19 10/10/19 10/10/19 18:59 06:59 18:59 Intake Total 500 705 240 Output Total 600 Balance -100 705 240 Weight 86.4 kg Intake: IV 100 Oral 500 605 240 Output: Urine 600 Other: Voiding Method Toilet Toilet Toilet Incontinent Incontinent # Voids 1 # Bowel Movements 1 - Exam PHYSICAL EXAMINATION: GENERAL: 84-year-old female in no acute distress at the time of my examination HEENT: Head is atraumatic, normocephalic. Pupils equal, round. Sclera anicteric. Conjunctiva are clear. Mucous membranes of the mouth are moist. Neck is supple. There is no elevated jugular venous pressure. No carotid bruit is heard. HEART EXAMINATION: Heart S1 and S2 irregularly irregular systolic murmur is heard at the apex, holosystolic murmur is heard. CHEST EXAMINATION: Lungs are clear to auscultation and precussion. No chest wall tenderness is noted on palpation or with deep breathing. ABDOMEN: Soft, nontender. Bowel sounds are heard. No organomegaly noted. EXTREMITIES:[ 2+ peripheral pulses with 2+ evidence of lower extremity peripheral edema NEUROLOGIC patient is awake, alert and oriented 3. . - Labs CBC & Chem 7: 10/10/19 05:28 10/10/19 05:28 Labs: Abnormal Lab Results - Last 24 Hours (Table) 10/10/19 10/10/19 10/10/19 Range/Units 05:28 05:28 11:49 RBC 2.64 L (3.80-5.40) m/uL Hgb 9.5 L (11.4-16.0) gm/dL Hct 30.1 L (34.0-46.0) % MCV 114.4 H (80.0-100.0) fL MCH 36.1 H (25.0-35.0) pg RDW 17.6 H (11.5-15.5) % Lymphocytes # 0.7 L (1.0-4.8) k/uL Macrocytosis Marked A Carbon Dioxide 20 L (22-30) mmol/L BUN 91 H (7-17) mg/dL Creatinine 2.71 H (0.52-1.04) mg/dL POC Glucose (mg/dL) 119 H (75-99) mg/dL Magnesium 2.6 H (1.6-2.3) mg/dL Assessment and Plan Plan: Assessment and plan #1 systolic congestive heart failure acute on chronic #2 history of mitral regurgitation #3 persistent atrial fibrillation #4 pulmonary hypertension #5 acute on chronic renal failure #6 history of DVT with prior [place] filter #7 diabetes #8 hypertension #9 hyperlipidemia Plan Patient underwent dialysis catheter placement last night, scheduled for dialysis today. She will need to be resumed on Eliquis 2.5 mg by mouth twice a day DNP note has been reviewed, I agree with a documented findings and plan of care. Patient was seen and examined.
[2019-10-10] MEDS: APIXABAN 2.5 MG TABLET PO SCH ×2 (14:48→20:50)
[2019-10-10 17:17] LABS: Glucose,Whole Blood 149 mg/dL (75-99)
[2019-10-10] MEDS: LINAGLIPTIN 5 MG TABLET PO SCH (17:30)
--- NOTE | 2019-10-10 18:08 | P.PN ---
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 Indeterminate VQ scan less likely PE Chronic renal failure 10/10/2019, patient seen eval examined during the rounds labs reviewed medications reviewed patient is undergoing hemodialysis doing well denies any chest pain hemodynamic status stable breathing more comfortably 10/09/2019, patient seen eval examined during the rounds labs reviewed medications reviewed respiratory status stable patient is a 4 permacath placement later on today hemodynamic shoes stable patient is a going to undergo hemodialysis as planned by renal services, labs are reviewed BUN/creatinine is elevated 85/3.07, blood pressure in the lower side, oxygen saturation is 99% on room air 10/08/2019, patient seen eval reexamined during the rounds sitting upright on the chest on the chair breathing comfortably denies any chest pain, due to chronic renal failure renal services to hemodialysis patient has been taken off of anticoagulation dialysis catheter is being planned for tomorrow, duplex ultrasound of the lower extremity revealed a chronic old thrombosis in the near and right lower extremity left is negative up her extremities are also negative for acute DVT This is a 84-year-old female with chronic atrial fibrillation well-known to me patient has been on chronic long-term lifelong anticoagulation she has chronic atrial fibrillation small pleural effusion, she has a congestive heart failure due to that, patient this morning woke up with chronic stable shortness of breath and some left-sided chest pain improved with applying pressure, came into emergency department, patient has been recently discharged from the hospital yesterday, patient underwent a chest x-ray revealed prominent right hilum and cardiomegaly no pleural effusion seen, VQ scan shows matching defects, labs significant for elevated BUN/creatinine of 96 and 2.87, BNP is over 15,000, Objective - Vital Signs Vital signs: Vital Signs Temp 97.5 F L 10/10/19 17:35 Pulse 78 10/10/19 17:35 Resp 20 10/10/19 17:35 BP 132/52 10/10/19 17:35 Pulse Ox 99 10/10/19 15:10 Intake & Output 10/09/19 10/10/19 10/10/19 18:59 06:59 18:59 Intake Total 500 705 480 Output Total 600 1000 Balance -100 705 -520 Weight 86.4 kg 86.4 kg Intake: IV 100 Oral 500 605 480 Output: Urine 600 Hemodialysis 1000 Other: Voiding Method Toilet Toilet Toilet Incontinent Incontinent # Voids 1 # Bowel Movements 1 - Exam - Constitutional General appearance: average body habitus, disheveled, no acute distress - EENT Eyes: EOMI, PERRLA Ears: bilateral: normal - Neck Carotids: bilateral: upstroke normal - Respiratory Respiratory: bilateral: CTA - Cardiovascular Rhythm: regular Heart sounds: normal: S1, S2 - Gastrointestinal General gastrointestinal: decreased bowel sounds - Neurologic Neurologic: CNII-XII intact - Musculoskeletal Musculoskeletal: gait normal, generalized weakness, strength equal bilaterally - Psychiatric Psychiatric: A&O x's 3, appropriate affect, intact judgment & insight - Labs CBC & Chem 7: 10/10/19 05:28 10/10/19 05:28 Labs: Abnormal Lab Results - Last 24 Hours (Table) 10/10/19 10/10/19 10/10/19 Range/Units 05:28 05:28 11:49 RBC 2.64 L (3.80-5.40) m/uL Hgb 9.5 L (11.4-16.0) gm/dL Hct 30.1 L (34.0-46.0) % MCV 114.4 H (80.0-100.0) fL MCH 36.1 H (25.0-35.0) pg RDW 17.6 H (11.5-15.5) % Lymphocytes # 0.7 L (1.0-4.8) k/uL Macrocytosis Marked A Carbon Dioxide 20 L (22-30) mmol/L BUN 91 H (7-17) mg/dL Creatinine 2.71 H (0.52-1.04) mg/dL POC Glucose (mg/dL) 119 H (75-99) mg/dL Magnesium 2.6 H (1.6-2.3) mg/dL 10/10/19 Range/Units 17:10 RBC (3.80-5.40) m/uL Hgb (11.4-16.0) gm/dL Hct (34.0-46.0) % MCV (80.0-100.0) fL MCH (25.0-35.0) pg RDW (11.5-15.5) % Lymphocytes # (1.0-4.8) k/uL Macrocytosis Carbon Dioxide (22-30) mmol/L BUN (7-17) mg/dL Creatinine (0.52-1.04) mg/dL POC Glucose (mg/dL) 149 H (75-99) mg/dL Magnesium (1.6-2.3) mg/dL Assessment and Plan Assessment: Atypical chest pain Chronic renal failure likely cardiorenal Abnormal x-ray with hilar fullness Chronic atrial fibrillation on lifelong anticoagulation with his Xarelto Indeterminate VQ scan less likely PE Chronic pleural effusion Plan: For hemodialysis per renal services Continue anticoagulation Reviewed duplex ultrasound of both upper and lower extremity Follow clinical course closely Resume anticoagulation post dialysis catheter placement, Computed tomography scan of the chest to be performed once patient is stable without dye t Time with Patient: Greater than 30
--- NOTE | 2019-10-10 18:50 | PN ---
PROGRESS NOTE The patient is seen for followup for chronic kidney disease, currently end-stage renal disease. The patient is status post IJ PermCath placement. She will be dialyzed today, which will be her first treatment. She was admitted to the hospital with fluid overload after recent hospitalization and discharge. Initially patient had been refusing dialysis, however, she decided to proceed with renal replacement therapy on her last admission and, therefore, this admission she has been started on dialysis. She has had repeated admissions and remains with persistently elevated BUN as outpatient. PHYSICAL EXAMINATION: On examination today, patient is comfortable. She is not in any acute distress. Blood pressure this morning was 94/51, heart rate of 83 per minute, she is afebrile. EXAMINATION OF THE HEART: S1 and S2. EXAMINATION OF THE LUNGS: Bilateral breath sounds are heard. Decreased breath sounds at the bases. ABDOMEN: Soft, nontender. Examination of the lower extremities: Chronic skin changes. Chronic edema noted. CHIEF CRNA exam grossly intact. LABS: Labs show sodium 139, potassium 4.5, chloride 107, BUN 91, serum creatinine 2.7. Hemoglobin 9.5. ASSESSMENT: 1. End-stage renal disease, started on dialysis this admission. The patient is having her first treatment today. We will dialyze her again tomorrow. 2. Volume overload. Expect improvement with ongoing dialysis. Continue the diuretics as well. 3. Metabolic acidosis associated with renal failure. Maintain on oral sodium bicarbonate. 4. Cardiomyopathy. 5. Moderate to severe mitral and tricuspid regurgitation. 6. Congestive heart failure, acute on top of chronic. Ejection fraction 35% to 40%. 7. Chronic kidney disease mineral bone disorder. Maintain on calcitriol and PhosLo as a phosphate binder. PLAN: Continue with oral diuretics. Hemodialysis today and then again in a.m. We will plan for ultrafiltration cautiously given the low blood pressure. Encourage increased oral intake. We can likely discontinue the sodium bicarbonate as patient continues with the renal replacement therapy. MMODL / IJN: [id number] /
[2019-10-10 20:07] LABS: Glucose,Whole Blood 139 mg/dL (75-99)
[2019-10-11 06:26] LABS: Glucose,Whole Blood 130 mg/dL (75-99)
[2019-10-11] MEDS: INSULIN ASPART (NovoLOG) 100 UNIT/ML VIAL SQ SCH ×4 (06:33→21:17)
[2019-10-11] MEDS: CALCIUM ACETATE 667 MG TAB PO SCH ×3 (06:36→17:24)
[2019-10-11] MEDS: MIDODRINE 5 MG TAB PO SCH ×2 (06:37→16:10)
[2019-10-11] MEDS: PANTOPRAZOLE 40 MG TABLET PO SCH (06:37)
[2019-10-11] MEDS: Acetaminophen-Codeine 300-30mg TAB PO SCH ×3 (06:37→17:24)
[2019-10-11] MEDS: BRIMONIDINE TARTRATE 0.2% DROPS 5 ML BTL BOTH EYES SCH ×2 (06:39→21:21)
[2019-10-11] MEDS: DORZOLAMIDE HCL 2% DROPS 10 ML BTL BOTH EYES SCH ×2 (06:39→21:21)
[2019-10-11] MEDS: METOPROLOL TARTRATE 25 MG TAB PO SCH ×2 (06:39→16:10)
[2019-10-11] MEDS ORDERED: HEPARIN SODIUM,PORCINE 5,000 UNIT/ML 1 ML VIAL ONE (08:00)
[2019-10-11 08:06] LABS: Anisocytosis Slight; Basophils % (A) 0 %; Eosinophils # (A) 0.1 k/uL (0-0.7); Eosinophils % (A) 2 %; HGB 9.4 gm/dL (11.4-16.0); Hypochromasia Slight; Lymphocytes # (A) 0.6 k/uL (1.0-4.8); Lymphocytes % (A) 10 %; MCHC 31.3 g/dL (31.0-37.0); MCV 115.2 fL (80.0-100.0); Macrocytosis Marked; Mean Platelet Volume 9.4; Monocytes # (A) 0.4 k/uL (0-1.0); Monocytes % (A) 6 %; Neutrophils # (A) 5.2 k/uL (1.3-7.7); Neutrophils % (A) 80 %; Platelet Count 125 k/uL (150-450); RDW 17.7 % (11.5-15.5); WBC 6.5 k/uL (3.8-10.6)
[2019-10-11 08:18] LABS: Albumin 2.8 g/dL (3.5-5.0); Calcium 8.5 mg/dL (8.4-10.2); Potassium 4.1 mmol/L (3.5-5.1); Total Bilirubin 0.5 mg/dL (0.2-1.3); Total Protein 5.6 g/dL (6.3-8.2)
[2019-10-11 08:58] LABS: Poikilocytosis (M) Present
--- NOTE | 2019-10-11 10:12 | P.PN ---
Subjective Progress Note Date: 10/11/19 Trina Carrillo, he is an 84-year-old female who was recently discharged from [facility], who presented to emergency room was a chief complaint of worsening shortness of breath, sharp pain in the chest, and significant swelling in the bilateral lower extremity, she was evaluated in emergency room and was admitted to telemetry floor for further evaluation and treatment BNP was elevated at 15,800 patient has known history of chronic renal failure with elevated BUN and creatinine she was evaluated by nephrology last admission and decision was made to start hemodialysis soon however patient condition deteriorated fast and patient and her family decided to return to emergency room. Due to shortness of breath patient had a VQ scan done in the emergency room, there was no clear evidence of any pulmonary embolism, there was matching ventilation and perfusion defects and the scan was read as intermediate probability for pulmonary embolus. Consultation for cardiology, pulmonary, nephrology were initiated in the emergency room. Patient was seen and examined on the telemetry floor, she is alert and oriented 3 in no apparent distress, at this time her chest pain has resolved and her shortness of breath has improved, she is still having significant bilateral lower extremity edema, otherwise she denies any complaints there is no fever or chills no headache or dizziness no chest pain, no cough no nausea or vomiting no abdominal pain no diarrhea no burning with urination no frequency or urgency no hematuria. On 10/07/2019 patient is alert and oriented 3. Patient does reports improvement with edema and shortness of breath. Patient remains on Lasix 40 every 8 hours. Patient still having some mild chest discomfort. Cardiology nephrology and pulmonary services are following. Venous Doppler was negative for DVTs. Urine culture has been ordered. On 10/08/2019 patient is alert and oriented 3. Family at bedside. Patient remains on IV Lasix. Plans for possible inpatient hemodialysis per nephrology recommendation. Family requesting to speak to Dr. Wellington in regards to VQ scan results before proceeding with hemodialysis. IV Lasix will be DC'd per nephrology and Demadex 20 mg daily ordered. Patient reports improvement with shortness of breath and chest pain. Per cardiology services anticoagulation has been switched from xarelto to eliquis. On 10/09/2019 patient is alert and oriented 3. Daughter at bedside. Patient has been started on Demadex IV Lasix DC'd plans for hemodialysis catheter access today per Dr. Collado anticoagulation currently on hold. Patient denies chest pain or shortness of breath. Patient denies nausea vomiting or diarrhea. Patie nt denies any urinary burning or frequency On 10/10/2019 patient is alert and oriented 3. Patient underwent hemodialysis catheter placement on 10/09/[address] Collado. Plans for hemodialysis today and for the next 3 days per nephrology. At this time patient is tired resting in bed. Patient denies any chest pain does report some discomfort around hemodialysis site. Patient denies any urinary burning or frequency On 10/11/2019 patient alert and oriented 3. Patient under went first chronic hemodialysis yesterday 1 L off. Plan for patient to get hemodialysis today and tomorrow with close monitoring of blood pressure and patient. Patient is alert and oriented. Patient denies chest pain. Patient denies shortness breath. Patient denies nausea vomiting or diarrhea. Patient denies any urinary burning or frequency Objective - Vital Signs Vital signs: Vital Signs Temp 98.1 F 10/11/19 08:20 Pulse 76 10/11/19 08:20 Resp 16 10/11/19 08:20 BP 100/48 10/11/19 08:20 Pulse Ox 96 10/11/19 08:20 Intake & Output 10/10/19 10/11/19 10/11/19 18:59 06:59 18:59 Intake Total 840 361 Output Total 1000 Balance -160 361 Weight 86.4 kg 85.9 kg Intake: Oral 840 361 Output: Hemodialysis 1000 Other: Voiding Method Toilet Toilet Toilet # Voids 1 1 # Bowel Movements 1 1 - Exam In general patient is alert and oriented 3 in no apparent distress HEENT head normocephalic and atraumatic. Hemodialysis port right upper chest wall Neck is supple no JVD no goiter Chest exam reveals a scattered crackles bilaterally no wheezing Cardiac exam reveals regular heart sounds no gallops no murmurs Abdomen is soft nontender no organomegaly Extremity exam reveals 2+ edema no cyanosis or clubbing Neurological examination reveals no gross focal deficits - Labs CBC & Chem 7: 10/11/19 07:30 10/11/19 07:30 Labs: Abnormal Lab Results - Last 24 Hours (Table) 10/10/19 10/10/19 10/10/19 Range/Units 11:49 17:10 20:05 RBC (3.80-5.40) m/uL Hgb (11.4-16.0) gm/dL Hct (34.0-46.0) % MCV (80.0-100.0) fL MCH (25.0-35.0) pg RDW (11.5-15.5) % Plt Count (150-450) k/uL Lymphocytes # (1.0-4.8) k/uL Macrocytosis BUN (7-17) mg/dL Creatinine (0.52-1.04) mg/dL Glucose (74-99) mg/dL POC Glucose (mg/dL) 119 H 149 H 139 H (75-99) mg/dL Total Protein (6.3-8.2) g/dL Albumin (3.5-5.0) g/dL 10/11/19 10/11/19 10/11/19 Range/Units 06:25 07:30 07:30 RBC 2.60 L (3.80-5.40) m/uL Hgb 9.4 L (11.4-16.0) gm/dL Hct 30.0 L (34.0-46.0) % MCV 115.2 H (80.0-100.0) fL MCH 36.0 H (25.0-35.0) pg RDW 17.7 H (11.5-15.5) % Plt Count 125 L (150-450) k/uL Lymphocytes # 0.6 L (1.0-4.8) k/uL Macrocytosis Marked A BUN 56 H (7-17) mg/dL Creatinine 2.39 H (0.52-1.04) mg/dL Glucose 143 H (74-99) mg/dL POC Glucose (mg/dL) 130 H (75-99) mg/dL Total Protein 5.6 L (6.3-8.2) g/dL Albumin 2.8 L (3.5-5.0) g/dL Assessment and Plan Assessment: #1 severe shortness of breath improved most likely related to fluid overload p atient was started on IV Lasix and consultation for nephrology was initiated to assess if patient needs to be started on hemodialysis during this admission. Patient and family are still waiting to make final decision in regards to hemodialysis. Would like to discuss with Dr. Wellington prior to making decision. Per nephrology IV Lasix has been DC'd and patient switched to Demadex. Hemodialysis access achieved on 10/09/[address] Collado. Plans for hemodialysis for the next 3 days inpatient #2 abnormal chest x-ray revealing evidence of hilar fullness, will continue to monitor and repeat chest x-ray once fluid overload has resolved #3 indeterminate VQ scan, doubt pulmonary embolism, bilateral lower extremity Doppler was ordered. Venous Doppler of lower extremities showing no active DVT in the lower extremity. Persistent long segment thrombus in the right lower x- ray has been present on prior studies. Doppler study completed of upper extremities are negative for DVT in either extremity #4 underlying history of chronic atrial fibrillation #5 underlying history of chronic kidney disease #6 underlying history of diabetes mellitus #7 underlying history of hypertension #8 underlying history of anemia #9. Urinary tract infection. Patient started on Rocephin. Urine culture or dered DVT prophylaxis eliquis. GI prophylaxis Protonix Pulmonary cardiology and nephrology consultation requested Will recheck labs in a.m. and follow closely I performed an examination of the patient and discussed their management with the Nurse Practitioner. I have reviewed the Nurse Practitioner's notes and agree with the documented findings and plan of care
[2019-10-11] MEDS: VIT A,C & E-LUTEIN-MINERALS 1 EACH TAB PO SCH ×2 (11:22→21:20)
[2019-10-11] MEDS: TORSEMIDE 20 MG TAB PO SCH (11:22)
[2019-10-11] MEDS: CHOLECALCIFEROL 1,000 UNIT TAB PO SCH (11:22)
[2019-10-11] MEDS: ISOSORBIDE MONONITRATE ER 60 MG TAB.ER.24H PO SCH (11:22)
[2019-10-11] MEDS: FERROUS SULFATE 325 MG TAB PO SCH (11:23)
[2019-10-11] MEDS: POTASSIUM CHLORIDE ER 10 MEQ TAB.ER.PRT PO SCH ×2 (11:23→16:10)
[2019-10-11] MEDS: ALLOPURINOL 100 MG TAB PO SCH (11:23)
[2019-10-11] MEDS: DOCUSATE 100 MG CAP PO SCH ×2 (11:24→21:20)
[2019-10-11] MEDS: APIXABAN 2.5 MG TABLET PO SCH ×2 (11:24→21:20)
[2019-10-11 11:44] LABS: Glucose,Whole Blood 126 mg/dL (75-99)
--- NOTE | 2019-10-11 12:20 | PN ---
PROGRESS NOTE Ms. Carrillo is an 84-year-old female with a known history of chronic persistent atrial fibrillation, history of mitral regurgitation, history of cardiomyopathy, end-stage renal disease. She was started on hemodialysis, underwent a session yesterday and today she is feeling better overall. Her breathing is better. She is denying any chest pain. She slept well. She denies any dizziness or palpitation. She denies any nausea. She continues to be at this time on Eliquis 2.5 mg twice a day, insulin, isosorbide mononitrate 60 mg daily, metoprolol tartrate 25 mg at noon and 50 mg twice a day, potassium and torsemide 20 mg daily. PHYSICAL EXAMINATION: Blood pressure 117/70 with a heart rate in the 80s. LUNGS: Clear. HEART: Irregular, regular. S1, S2. No S3 with a holosystolic murmur in the apex. No diastolic murmur, no rub. ABDOMEN: Soft, nontender. EXTREMITIES: +2 edema. IMPRESSION: 1. Symptoms of congestive heart failure with impaired systolic function and fluid overload related to her renal chronic kidney disease. The patient started dialysis and feeling better. 2. History of cardiomyopathy with severe mitral regurgitation. 3. Chronic persistent atrial fibrillation, anticoagulated. 4. History of hypertension. 5. Anemia. RECOMMENDATION: From the cardiac standpoint, she is stable. Will continue present therapy. Will see her on an as-needed basis. Please feel free to call us for any question. MMODL / IJN: [id number] /
--- NOTE | 2019-10-11 12:21 | PN ---
PROGRESS NOTE The patient is seen on hemodialysis. She is tolerating her treatment very well. She states she is feeling better and actually feels fish filleter. We had removed about a liter of fluid yesterday. Patient tolerated her treatment very well yesterday. PHYSICAL EXAMINATION: On examination, blood pressure was 122/33, heart rate 80 per minute. She is afebrile. EXAMINATION OF THE HEART: S1, S2. EXAMINATION OF THE LUNGS: Bilateral breath sounds are heard. Abdomen is soft, nontender. Examination of lower extremities shows edema 2+ bilaterally. PROJECT ADMINISTRATOR exam grossly intact. LABS: Labs show sodium 139, potassium 4.1, hemoglobin 9.4, serum creatinine 2.39. ASSESSMENT: 1. End-stage renal disease, currently on hemodialysis with plans to continue at the [facility] upon discharge. Patient is having her second treatment today. We will hold off on dialysis over the weekend and plan again on Monday. 2. Volume overload, currently improved. 3. Chronic kidney disease mineral bone disorder. 4. Hypokalemia, maintained on supplementation. PLAN: Continue potassium supplementation for now. Next dialysis on Monday. Proceed with the paperwork for outpatient dialysis arrangement. MMODL / IJN: [id number] /
[2019-10-11] MEDS: ONDANSETRON 4 MG TAB PO PRN (12:56)
--- NOTE | 2019-10-11 14:47 | P.PN ---
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 Indeterminate VQ scan less likely PE Chronic renal failure 10/11/2019, patient seen eval examined during the rounds labs reviewed medications reviewed care plan discussed sitting upright on the bed undergoing hemodialysis today is the second cycle hemodialysis denies any shortness of breath or chest pain 10/10/2019, patient seen eval examined during the rounds labs reviewed medicat ions reviewed patient is undergoing hemodialysis doing well denies any chest pain hemodynamic status stable breathing more comfortably 10/09/2019, patient seen eval examined during the rounds labs reviewed medications reviewed respiratory status stable patient is a 4 permacath placement later on today hemodynamic shoes stable patient is a going to undergo hemodialysis as planned by renal services, labs are reviewed BUN/creatinine is elevated 85/3.07, blood pressure in the lower side, oxygen saturation is 99% on room air 10/08/2019, patient seen eval reexamined during the rounds sitting upright on the chest on the chair breathing comfortably denies any chest pain, due to chronic renal failure renal services to hemodialysis patient has been taken off of anticoagulation dialysis catheter is being planned for tomorrow, duplex ultrasound of the lower extremity revealed a chronic old thrombosis in the near and right lower extremity left is negative up her extremities are also negative for acute DVT This is a 84-year-old female with chronic atrial fibrillation well-known to me patient has been on chronic long-term lifelong anticoagulation she has chronic atrial fibrillation small pleural effusion, she has a congestive heart failure due to that, patient this morning woke up with chronic stable shortness of breath and some left-sided chest pain improved with applying pressure, came into emergency department, patient has been recently discharged from the hospital yesterday, patient underwent a chest x-ray revealed prominent right hilum and cardiomegaly no pleural effusion seen, VQ scan shows matching defects, labs significant for elevated BUN/creatinine of 96 and 2.87, BNP is over 15,000, Objective - Vital Signs Vital signs: Vital Signs Temp 98.8 F 10/11/19 11:14 Pulse 82 10/11/19 11:19 Resp 16 10/11/19 11:19 BP 117/75 10/11/19 11:19 Pulse Ox 98 10/11/19 11:19 Intake & Output 10/10/19 10/11/19 10/11/19 18:59 06:59 18:59 Intake Total 840 361 Output Total 1000 1999 Balance -160 -1639 Weight 86.4 kg 85.9 kg Intake: Oral 840 361 Output: Hemodialysis 1000 1999 Other: Voiding Method Toilet Toilet Toilet # Voids 1 1 # Bowel Movements 1 1 - Exam - Constitutional General appearance: average body habitus, disheveled, no acute distress - EENT Eyes: EOMI, PERRLA Ears: bilateral: normal - Neck Carotids: bilateral: upstroke normal - Respiratory Respiratory: bilateral: CTA - Cardiovascular Rhythm: regular Heart sounds: normal: S1, S2 - Gastrointestinal General gastrointestinal: decreased bowel sounds - Neurologic Neurologic: CNII-XII intact - Musculoskeletal Musculoskeletal: gait normal, generalized weakness, strength equal bilaterally - Psychiatric Psychiatric: A&O x's 3, appropriate affect, intact judgment & insight - Labs CBC & Chem 7: 10/11/19 07:30 10/11/19 07:30 Labs: Abnormal Lab Results - Last 24 Hours (Table) 10/10/19 10/10/19 10/11/19 Range/Units 17:10 20:05 06:25 RBC (3.80-5.40) m/uL Hgb (11.4-16.0) gm/dL Hct (34.0-46.0) % MCV (80.0-100.0) fL MCH (25.0-35.0) pg RDW (11.5-15.5) % Plt Count (150-450) k/uL Lymphocytes # (1.0-4.8) k/uL Macrocytosis BUN (7-17) mg/dL Creatinine (0.52-1.04) mg/dL Glucose (74-99) mg/dL POC Glucose (mg/dL) 149 H 139 H 130 H (75-99) mg/dL Total Protein (6.3-8.2) g/dL Albumin (3.5-5.0) g/dL 10/11/19 10/11/19 10/11/19 Range/Units 07:30 07:30 11:33 RBC 2.60 L (3.80-5.40) m/uL Hgb 9.4 L (11.4-16.0) gm/dL Hct 30.0 L (34.0-46.0) % MCV 115.2 H (80.0-100.0) fL MCH 36.0 H (25.0-35.0) pg RDW 17.7 H (11.5-15.5) % Plt Count 125 L (150-450) k/uL Lymphocytes # 0.6 L (1.0-4.8) k/uL Macrocytosis Marked A BUN 56 H (7-17) mg/dL Creatinine 2.39 H (0.52-1.04) mg/dL Glucose 143 H (74-99) mg/dL POC Glucose (mg/dL) 126 H (75-99) mg/dL Total Protein 5.6 L (6.3-8.2) g/dL Albumin 2.8 L (3.5-5.0) g/dL Assessment and Plan Assessment: Atypical chest pain Chronic renal failure likely cardiorenal Abnormal x-ray with hilar fullness Chronic atrial fibrillation on lifelong anticoagulation with his Xarelto Indeterminate VQ scan less likely PE Chronic pleural effusion Plan: For hemodialysis per renal services Continue anticoagulation Reviewed duplex ultrasound of both upper and lower extremity Follow clinical course closely Resume anticoagulation post dialysis catheter placement, Computed tomography scan of the chest to be performed once patient is stable without dye t Time with Patient: Greater than 30
[2019-10-11] MEDS: LINAGLIPTIN 5 MG TABLET PO SCH (16:10)
[2019-10-11 17:01] LABS: Glucose,Whole Blood 110 mg/dL (75-99)
[2019-10-11 21:14] LABS: Glucose,Whole Blood 117 mg/dL (75-99)
[2019-10-12] MEDS: METOPROLOL TARTRATE 25 MG TAB PO SCH ×4 (00:02→23:16)
[2019-10-12] MEDS: MIDODRINE 5 MG TAB PO SCH ×4 (00:04→23:16)
[2019-10-12] MEDS: Acetaminophen-Codeine 300-30mg TAB PO SCH ×5 (00:04→23:16)
[2019-10-12 06:03] LABS: Glucose,Whole Blood 99 mg/dL (75-99)
[2019-10-12 06:30] LABS: Anisocytosis Slight; Basophils % (A) 0 %; Eosinophils # (A) 0.1 k/uL (0-0.7); Eosinophils % (A) 2 %; HCT 31.2 % (34.0-46.0); HGB 9.8 gm/dL (11.4-16.0); Hypochromasia Slight; Lymphocytes # (A) 0.9 k/uL (1.0-4.8); Lymphocytes % (A) 15 %; MCHC 31.2 g/dL (31.0-37.0); Macrocytosis Marked; Mean Platelet Volume 9.3; Monocytes # (A) 0.3 k/uL (0-1.0); Monocytes % (A) 5 %; Neutrophils # (A) 4.4 k/uL (1.3-7.7); Neutrophils % (A) 74 %; Platelet Count 132 k/uL (150-450); RBC 2.71 m/uL (3.80-5.40); RDW 17.8 % (11.5-15.5)
[2019-10-12 06:33] LABS: MCV 115.2 fL (80.0-100.0)
[2019-10-12 06:42] LABS: Calcium 8.9 mg/dL (8.4-10.2); Potassium 4.4 mmol/L (3.5-5.1); Total Bilirubin 0.6 mg/dL (0.2-1.3); Total Protein 5.7 g/dL (6.3-8.2)
[2019-10-12] MEDS: PANTOPRAZOLE 40 MG TABLET PO SCH (06:55)
[2019-10-12] MEDS: CALCIUM ACETATE 667 MG TAB PO SCH ×3 (06:56→17:31)
[2019-10-12] MEDS: INSULIN ASPART (NovoLOG) 100 UNIT/ML VIAL SQ SCH ×4 (06:56→20:31)
[2019-10-12] MEDS: DORZOLAMIDE HCL 2% DROPS 10 ML BTL BOTH EYES SCH ×2 (06:57→20:27)
[2019-10-12] MEDS: BRIMONIDINE TARTRATE 0.2% DROPS 5 ML BTL BOTH EYES SCH ×2 (06:57→20:27)
[2019-10-12] MEDS: ONDANSETRON 4 MG TAB PO PRN (07:18)
[2019-10-12] MEDS: VIT A,C & E-LUTEIN-MINERALS 1 EACH TAB PO SCH ×2 (09:09→20:27)
[2019-10-12] MEDS: ALLOPURINOL 100 MG TAB PO SCH (09:09)
[2019-10-12] MEDS: POTASSIUM CHLORIDE ER 10 MEQ TAB.ER.PRT PO SCH (09:09)
[2019-10-12] MEDS: TORSEMIDE 20 MG TAB PO SCH (09:09)
[2019-10-12] MEDS: CHOLECALCIFEROL 1,000 UNIT TAB PO SCH (09:10)
[2019-10-12] MEDS: CALCITRIOL 0.25 MCG CAP PO SCH (09:10)
[2019-10-12] MEDS: DOCUSATE 100 MG CAP PO SCH ×2 (09:10→20:27)
[2019-10-12] MEDS: FERROUS SULFATE 325 MG TAB PO SCH (09:10)
[2019-10-12] MEDS: APIXABAN 2.5 MG TABLET PO SCH ×2 (09:10→20:26)
[2019-10-12] MEDS: ISOSORBIDE MONONITRATE ER 60 MG TAB.ER.24H PO SCH (09:11)
--- NOTE | 2019-10-12 11:08 | P.PN ---
Subjective Progress Note Date: 10/12/19 Follow-up for hemodialysis. Her catheter bleeding around the insertion site. She had 1 episode of nausea vomiting today. Objective - Vital Signs Vital signs: Vital Signs Temp 98.2 F 10/12/19 04:00 Pulse 78 10/12/19 04:00 Resp 16 10/12/19 04:00 BP 104/61 10/12/19 04:00 Pulse Ox 98 10/12/19 04:00 Intake & Output 10/11/19 10/12/19 10/12/19 18:59 06:59 18:59 Intake Total 361 120 Output Total 2351 Balance -1989 120 Intake: Oral 361 120 Output: Urine 350 Urine/Stool Mix 1 Hemodialysis 1999 Other: Voiding Method Toilet Toilet - Exam No acute distress S1-S2 heard Decreased breath sounds Abdomen soft Right jugular permacath 2+ edema - Labs CBC & Chem 7: 10/12/19 05:58 10/12/19 05:58 Labs: Abnormal Lab Results - Last 24 Hours (Table) 10/11/19 10/11/19 10/11/19 Range/Units 11:33 16:46 21:13 RBC (3.80-5.40) m/uL Hgb (11.4-16.0) gm/dL Hct (34.0-46.0) % MCV (80.0-100.0) fL MCH (25.0-35.0) pg RDW (11.5-15.5) % Plt Count (150-450) k/uL Lymphocytes # (1.0-4.8) k/uL Macrocytosis BUN (7-17) mg/dL Creatinine (0.52-1.04) mg/dL POC Glucose (mg/dL) 126 H 110 H 117 H (75-99) mg/dL Total Protein (6.3-8.2) g/dL Albumin (3.5-5.0) g/dL 10/12/19 10/12/19 Range/Units 05:58 05:58 RBC 2.71 L (3.80-5.40) m/uL Hgb 9.8 L (11.4-16.0) gm/dL Hct 31.2 L (34.0-46.0) % MCV 115.2 H (80.0-100.0) fL MCH 36.0 H (25.0-35.0) pg RDW 17.8 H (11.5-15.5) % Plt Count 132 L (150-450) k/uL Lymphocytes # 0.9 L (1.0-4.8) k/uL Macrocytosis Marked A BUN 43 H (7-17) mg/dL Creatinine 2.19 H (0.52-1.04) mg/dL POC Glucose (mg/dL) (75-99) mg/dL Total Protein 5.7 L (6.3-8.2) g/dL Albumin 3.0 L (3.5-5.0) g/dL Assessment and Plan Assessment: #1 end-stage renal disease currently on hemodialysis started on 10/10/2019. #2 volume overload #3 anemia with ESRD #4 low normal blood pressures on midodrine Plan: #1 next dialysis Monday #2 outpatient dialysis placement. #3 supportive care
[2019-10-12 11:51] LABS: Glucose,Whole Blood 113 mg/dL (75-99)
--- NOTE | 2019-10-12 11:55 | PN ---
PROGRESS NOTE Ms. Carrillo is an 84-year-old female with known history of chronic persistent atrial fibrillation, anticoagulated, progressive renal failure, started hemodialysis, symptoms of congestive heart failure, cardiomyopathy, and mitral regurgitation. She had nausea and vomiting this morning and some bleeding from the hemodialysis catheter. Otherwise, her breathing is stable. She continues to have peripheral edema. No dizziness. No palpitations. She continues to be on Eliquis 2.5 mg twice a day, isosorbide mononitrate 60 mg daily, metoprolol tartrate 50 mg twice a day and 25 in mid day, furosemide 20 mg daily. PHYSICAL EXAMINATION: Blood pressure 104/60 with a heart rate in the 90s. LUNGS: Clear. HEART irregularly irregular S1, S2. No S3 with a holosystolic murmur in the apex. No diastolic murmur. Catheter site no active bleeding. ABDOMEN: Soft, nontender. Extremities +2 edema. IMPRESSION: 1. End-stage renal disease, started hemodialysis during this admission. 2. Symptoms of congestive heart failure with a combination of impaired systolic function and fluid overload from the renal failure. 3. Cardiomyopathy. 4. Mitral regurgitation. 5. Chronic persistent atrial fibrillation. 6. Hypertension. RECOMMENDATIONS: From the cardiac standpoint, we will continue present therapy. The patient is not scheduled to undergo dialysis today. She may be able to be discharged home and follow up as an outpatient. MMODL / IJN: [id number] /
--- NOTE | 2019-10-12 13:15 | P.PN ---
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 Indeterminate VQ scan less likely PE Chronic renal failure 10/12/2019, patient seen eval reexamined during the rounds labs reviewed medications reviewed sitting upright in the bed breathing well, patient had episode of the of Center July nauseous and throw up once now she is improved now and during that process she has a small hemorrhage of the catheter site, hemostasis achieved no active bleeding is present, vascular surgery has been notified by staff 10/11/2019, patient seen eval examined during the rounds labs reviewed medications reviewed care plan discussed sitting upright on the bed undergoing hemodialysis today is the second cycle hemodialysis denies any shortness of breath or chest pain 10/10/2019, patient seen eval examined during the rounds labs reviewed medi cations reviewed patient is undergoing hemodialysis doing well denies any chest pain hemodynamic status stable breathing more comfortably 10/09/2019, patient seen eval examined during the rounds labs reviewed medications reviewed respiratory status stable patient is a 4 permacath placement later on today hemodynamic shoes stable patient is a going to undergo hemodialysis as planned by renal services, labs are reviewed BUN/creatinine is elevated 85/3.07, blood pressure in the lower side, oxygen saturation is 99% on room air 10/08/2019, patient seen eval reexamined during the rounds sitting upright on the chest on the chair breathing comfortably denies any chest pain, due to chronic renal failure renal services to hemodialysis patient has been taken off of anticoagulation dialysis catheter is being planned for tomorrow, duplex ultrasound of the lower extremity revealed a chronic old thrombosis in the near and right lower extremity left is negative up her extremities are also negative for acute DVT This is a 84-year-old female with chronic atrial fibrillation well-known to me patient has been on chronic long-term lifelong anticoagulation she has chronic atrial fibrillation small pleural effusion, she has a congestive heart failure due to that, patient this morning woke up with chronic stable shortness of breath and some left-sided chest pain improved with applying pressure, came into emergency department, patient has been recently discharged from the hospital yesterday, patient underwent a chest x-ray revealed prominent right hilum and cardiomegaly no pleural effusion seen, VQ scan shows matching defects, labs significant for elevated BUN/creatinine of 96 and 2.87, BNP is over 15,000, Objective - Vital Signs Vital signs: Vital Signs Temp 98.6 F 10/12/19 08:00 Pulse 94 10/12/19 08:00 Resp 18 10/12/19 08:00 BP 95/61 10/12/19 08:00 Pulse Ox 92 L 10/12/19 08:00 Intake & Output 10/11/19 10/12/19 10/12/19 18:59 06:59 18:59 Intake Total 361 630 Output Total 2351 Balance -1989 630 Intake: IV 50 cefTRIAXone 1 gm In 50 Sodium Chloride 0.9% 50 ml @ 100 mls/hr IVPB Q24HR [facility] Rx#:[id number] Oral 361 580 Output: Urine 350 Urine/Stool Mix 1 Hemodialysis 1999 Other: Voiding Method Toilet Toilet # Voids 1 # Bowel Movements 1 - Exam - Constitutional General appearance: average body habitus, disheveled, no acute distress - EENT Eyes: EOMI, PERRLA Ears: bilateral: normal - Neck Carotids: bilateral: upstroke normal - Respiratory Respiratory: bilateral: CTA - Cardiovascular Rhythm: regular Heart sounds: normal: S1, S2 - Gastrointestinal General gastrointestinal: decreased bowel sounds - Neurologic Neurologic: CNII-XII intact - Musculoskeletal Musculoskeletal: gait normal, generalized weakness, strength equal bilaterally - Psychiatric Psychiatric: A&O x's 3, appropriate affect, intact judgment & insight - Labs CBC & Chem 7: 10/12/19 05:58 10/12/19 05:58 Labs: Abnormal Lab Results - Last 24 Hours (Table) 10/11/19 10/11/19 10/12/19 Range/Units 16:46 21:13 05:58 RBC (3.80-5.40) m/uL Hgb (11.4-16.0) gm/dL Hct (34.0-46.0) % MCV (80.0-100.0) fL MCH (25.0-35.0) pg RDW (11.5-15.5) % Plt Count (150-450) k/uL Lymphocytes # (1.0-4.8) k/uL Macrocytosis BUN 43 H (7-17) mg/dL Creatinine 2.19 H (0.52-1.04) mg/dL POC Glucose (mg/dL) 110 H 117 H (75-99) mg/dL Total Protein 5.7 L (6.3-8.2) g/dL Albumin 3.0 L (3.5-5.0) g/dL 10/12/19 10/12/19 Range/Units 05:58 11:43 RBC 2.71 L (3.80-5.40) m/uL Hgb 9.8 L (11.4-16.0) gm/dL Hct 31.2 L (34.0-46.0) % MCV 115.2 H (80.0-100.0) fL MCH 36.0 H (25.0-35.0) pg RDW 17.8 H (11.5-15.5) % Plt Count 132 L (150-450) k/uL Lymphocytes # 0.9 L (1.0-4.8) k/uL Macrocytosis Marked A BUN (7-17) mg/dL Creatinine (0.52-1.04) mg/dL POC Glucose (mg/dL) 113 H (75-99) mg/dL Total Protein (6.3-8.2) g/dL Albumin (3.5-5.0) g/dL Assessment and Plan Assessment: Atypical chest pain Chronic renal failure likely cardiorenal Abnormal x-ray with hilar fullness Chronic atrial fibrillation on lifelong anticoagulation with his Xarelto Indeterminate VQ scan less likely PE Chronic pleural effusion Plan: For hemodialysis per renal services Continue anticoagulation Reviewed duplex ultrasound of both upper and lower extremity Follow clinical course closely Resume anticoagulation post dialysis catheter placement, Computed tomography scan of the chest to be performed once patient is stable without dye t
[2019-10-12] MEDS: LINAGLIPTIN 5 MG TABLET PO SCH (15:42)
[2019-10-12 16:56] LABS: Glucose,Whole Blood 88 mg/dL (75-99)
[2019-10-12 20:30] LABS: Glucose,Whole Blood 128 mg/dL (75-99)
[2019-10-13] MEDS: ONDANSETRON 4 MG TAB PO PRN (01:21)
[2019-10-13 06:05] LABS: Glucose,Whole Blood 113 mg/dL (75-99)
[2019-10-13] MEDS: INSULIN ASPART (NovoLOG) 100 UNIT/ML VIAL SQ SCH ×4 (06:09→21:07)
[2019-10-13] MEDS ORDERED: ONDANSETRON 4 MG/2 ML VIAL IVP PRN (09:59)
[2019-10-13] MEDS: CALCIUM ACETATE 667 MG TAB PO SCH ×3 (10:00→17:40)
[2019-10-13] MEDS: Acetaminophen-Codeine 300-30mg TAB PO SCH ×4 (10:00→22:11)
[2019-10-13] MEDS: MIDODRINE 5 MG TAB PO SCH ×3 (10:01→22:11)
--- NOTE | 2019-10-13 10:01 | P.PN ---
Subjective Progress Note Date: 10/13/19 Objective - Vital Signs Vital signs: Vital Signs Temp 98.1 F 10/13/19 03:15 Pulse 70 10/13/19 03:15 Resp 18 10/13/19 03:15 BP 113/68 10/13/19 03:15 Pulse Ox 98 10/13/19 03:15 Intake & Output 10/12/19 10/13/19 10/13/19 17:59 06:59 18:59 Intake Total Balance Weight Intake: IV cefTRIAXone 1 gm In Sodium Chloride 0.9% 50 ml @ 100 mls/hr IVPB Q24HR [facility] Rx#:[id number] Oral Other: Voiding Method # Voids 1 # Bowel Movements - Labs CBC & Chem 7: 10/12/19 05:58 10/12/19 05:58 Labs: Abnormal Lab Results - Last 24 Hours (Table) 10/12/19 10/12/19 10/13/19 Range/Units 11:43 20:28 06:04 POC Glucose (mg/dL) 113 H 128 H 113 H (75-99) mg/dL Assessment and Plan Plan: #1 severe shortness of breath improved most likely related to fluid overload patient was started on IV Lasix and consultation for nephrology was initiated to assess if patient needs to be started on hemodialysis during this admission #2 abnormal chest x-ray revealing evidence of hilar fullness, will continue to monitor and repeat chest x-ray once fluid overload has resolved #3 indeterminate VQ scan, doubt pulmonary embolism, bilateral lower extremity Doppler was ordered. #4 underlying history of chronic atrial fibrillation #5 underlying history of chronic kidney disease #6 underlying history of diabetes mellitus #7 underlying history of hypertension #8 underlying history of anemia At this time patient was started on IV Lasix She is maintained on supplemental for anticoagulation Pulmonary cardiology and nephrology consultation requested Will recheck labs in a.m. and follow closely
--- NOTE | 2019-10-13 10:02 | P.PN ---
Subjective Progress Note Date: 10/12/19 Trina Carrillo, he is an 84-year-old female who was recently discharged from [facility], who presented to emergency room was a chief complaint of worsening shortness of breath, sharp pain in the chest, and significant swelling in the bilateral lower extremity, she was evaluated in emergency room and was admitted to telemetry floor for further evaluation and treatment BNP was elevated at 15,800 patient has known history of chronic renal failure with elevated BUN and creatinine she was evaluated by nephrology last admission and decision was made to start hemodialysis soon however patient condition deteriorated fast and patient and her family decided to return to emergency room. Due to shortness of breath patient had a VQ scan done in the emergency room, there was no clear evidence of any pulmonary embolism, there was matching ventilation and perfusion defects and the scan was read as intermediate probability for pulmonary embolus. Consultation for cardiology, pulmonary, nephrology were initiated in the emergency room. Patient was seen and examined on the telemetry floor, she is alert and oriented 3 in no apparent distress, at this time her chest pain has resolved and her shortness of breath has improved, she is still having significant bilateral lower extremity edema, otherwise she denies any complaints there is no fever or chills no headache or dizziness no chest pain, no cough no nausea or vomiting no abdominal pain no diarrhea no burning with urination no frequency or urgency no hematuria. On 10/07/2019 patient is alert and oriented 3. Patient does reports improvement with edema and shortness of breath. Patient remains on Lasix 40 every 8 hours. Patient still having some mild chest discomfort. Cardiology nephrology and pulmonary services are following. Venous Doppler was negative for DVTs. Urine culture has been ordered. On 10/08/2019 patient is alert and oriented 3. Family at bedside. Patient remains on IV Lasix. Plans for possible inpatient hemodialysis per nephrology recommendation. Family requesting to speak to Dr. Wellington in regards to VQ scan results before proceeding with hemodialysis. IV Lasix will be DC'd per nephrology and Demadex 20 mg daily ordered. Patient reports improvement with shortness of breath and chest pain. Per cardiology services anticoagulation has been switched from xarelto to eliquis. On 10/09/2019 patient is alert and oriented 3. Daughter at bedside. Patient has been started on Demadex IV Lasix DC'd plans for hemodialysis catheter access today per Dr. Collado anticoagulation currently on hold. Patient denies chest pain or shortness of breath. Patient denies nausea vomiting or diarrhea. Aishwarya ent denies any urinary burning or frequency On 10/10/2019 patient is alert and oriented 3. Patient underwent hemodialysis catheter placement on 10/09/[address] Collado. Plans for hemodialysis today and for the next 3 days per nephrology. At this time patient is tired resting in bed. Patient denies any chest pain does report some discomfort around hemodialysis site. Patient denies any urinary burning or frequency On 10/11/2019 patient alert and oriented 3. Patient under went first chronic hemodialysis yesterday 1 L off. Plan for patient to get hemodialysis today and tomorrow with close monitoring of blood pressure and patient. Patient is alert and oriented. Patient denies chest pain. Patient denies shortness breath. Patient denies nausea vomiting or diarrhea. Patient denies any urinary burning or frequency On 10/12/2019 patient was seen and examined on the medical floor she is alert and oriented 3 in no apparent distress she accidentally pulled her dialysis catheter partially at night there is some bleeding around the catheter site otherwise she denies any complaints there is no fever or chills no headache or dizziness no chest pain no shortness of breath no cough no nausea or vomiting no abdominal pain no diarrhea and no urinary symptoms Objective - Vital Signs Vital signs: Vital Signs Temp 98.1 F 10/13/19 03:15 Pulse 70 10/13/19 03:15 Resp 18 10/13/19 03:15 BP 113/68 10/13/19 03:15 Pulse Ox 98 10/13/19 03:15 Intake & Output 10/12/19 10/13/19 10/13/19 17:59 06:59 18:59 Intake Total Balance Weight Intake: IV cefTRIAXone 1 gm In Sodium Chloride 0.9% 50 ml @ 100 mls/hr IVPB Q24HR [facility] Rx#:[id number] Oral Other: Voiding Method # Voids 1 # Bowel Movements - Exam In general patient is alert and oriented 3 in no apparent distress HEENT head normocephalic and atraumatic. Hemodialysis port right upper chest wall Neck is supple no JVD no goiter Chest exam reveals a scattered crackles bilaterally no wheezing Cardiac exam reveals regular heart sounds no gallops no murmurs Abdomen is soft nontender no organomegaly Extremity exam reveals 2+ edema no cyanosis or clubbing Neurological examination reveals no gross focal deficits - Labs CBC & Chem 7: 10/12/19 05:58 10/12/19 05:58 Labs: Abnormal Lab Results - Last 24 Hours (Table) 10/12/19 10/12/19 10/13/19 Range/Units 11:43 20:28 06:04 POC Glucose (mg/dL) 113 H 128 H 113 H (75-99) mg/dL Assessment and Plan Plan: #1 severe shortness of breath improved most likely related to fluid overload patient was started on IV Lasix and consultation for nephrology was initiated to assess if patient needs to be started on hemodialysis during this admission #2 abnormal chest x-ray revealing evidence of hilar fullness, will continue to monitor and repeat chest x-ray once fluid overload has resolved #3 indeterminate VQ scan, doubt pulmonary embolism, bilateral lower extremity Doppler was ordered. #4 underlying history of chronic atrial fibrillation #5 underlying history of chronic kidney disease #6 underlying history of diabetes mellitus #7 underlying history of hypertension #8 underlying history of anemia At this time patient was started on IV Lasix She is maintained on supplemental for anticoagulation Pulmonary cardiology and nephrology consultation requested Will recheck labs in a.m. and follow closely
[2019-10-13] MEDS: CALCITRIOL 0.25 MCG CAP PO SCH (10:04)
[2019-10-13] MEDS: ALLOPURINOL 100 MG TAB PO SCH (10:04)
--- NOTE | 2019-10-13 10:04 | P.PN ---
Subjective Progress Note Date: 10/13/19 Trina Carrillo, he is an 84-year-old female who was recently discharged from [facility], who presented to emergency room was a chief complaint of worsening shortness of breath, sharp pain in the chest, and significant swelling in the bilateral lower extremity, she was evaluated in emergency room and was admitted to telemetry floor for further evaluation and treatment BNP was elevated at 15,800 patient has known history of chronic renal failure with elevated BUN and creatinine she was evaluated by nephrology last admission and decision was made to start hemodialysis soon however patient condition deteriorated fast and patient and her family decided to return to emergency room. Due to shortness of breath patient had a VQ scan done in the emergency room, there was no clear evidence of any pulmonary embolism, there was matching ventilation and perfusion defects and the scan was read as intermediate probability for pulmonary embolus. Consultation for cardiology, pulmonary, nephrology were initiated in the emergency room. Patient was seen and examined on the telemetry floor, she is alert and oriented 3 in no apparent distress, at this time her chest pain has resolved and her shortness of breath has improved, she is still having significant bilateral lower extremity edema, otherwise she denies any complaints there is no fever or chills no headache or dizziness no chest pain, no cough no nausea or vomiting no abdominal pain no diarrhea no burning with urination no frequency or urgency no hematuria. On 10/07/2019 patient is alert and oriented 3. Patient does reports improvement with edema and shortness of breath. Patient remains on Lasix 40 every 8 hours. Patient still having some mild chest discomfort. Cardiology nephrology and pulmonary services are following. Venous Doppler was negative for DVTs. Urine culture has been ordered. On 10/08/2019 patient is alert and oriented 3. Family at bedside. Patient remains on IV Lasix. Plans for possible inpatient hemodialysis per nephrology recommendation. Family requesting to speak to Dr. Wellington in regards to VQ scan results before proceeding with hemodialysis. IV Lasix will be DC'd per nephrology and Demadex 20 mg daily ordered. Patient reports improvement with shortness of breath and chest pain. Per cardiology services anticoagulation has been switched from xarelto to eliquis. On 10/09/2019 patient is alert and oriented 3. Daughter at bedside. Patient has been started on Demadex IV Lasix DC'd plans for hemodialysis catheter access today per Dr. Collado anticoagulation currently on hold. Patient denies chest pain or shortness of breath. Patient denies nausea vomiting or diarrhea. Aishwarya ent denies any urinary burning or frequency On 10/10/2019 patient is alert and oriented 3. Patient underwent hemodialysis catheter placement on 10/09/[address] Collado. Plans for hemodialysis today and for the next 3 days per nephrology. At this time patient is tired resting in bed. Patient denies any chest pain does report some discomfort around hemodialysis site. Patient denies any urinary burning or frequency On 10/11/2019 patient alert and oriented 3. Patient under went first chronic hemodialysis yesterday 1 L off. Plan for patient to get hemodialysis today and tomorrow with close monitoring of blood pressure and patient. Patient is alert and oriented. Patient denies chest pain. Patient denies shortness breath. Patient denies nausea vomiting or diarrhea. Patient denies any urinary burning or frequency On 10/12/2019 patient was seen and examined on the medical floor she is alert and oriented 3 in no apparent distress she accidentally pulled her dialysis catheter partially at night there is some bleeding around the catheter site otherwise she denies any complaints there is no fever or chills no headache or dizziness no chest pain no shortness of breath no cough no nausea or vomiting no abdominal pain no diarrhea and no urinary symptoms. On 10/13/2019 patient was seen and examined on the medical floor she is complaining of nausea and vomiting and feeling tired otherwise she denies any complaints, there is no fever or chills no headache or dizziness no chest pain no shortness of breath no cough no abdominal pain no diarrhea no burning with urination no frequency or urgency and no hematuria Objective - Vital Signs Vital signs: Vital Signs Temp 98.1 F 10/13/19 03:15 Pulse 70 10/13/19 03:15 Resp 18 10/13/19 03:15 BP 113/68 10/13/19 03:15 Pulse Ox 98 10/13/19 03:15 Intake & Output 10/12/19 10/13/19 10/13/19 17:59 06:59 18:59 Intake Total 120 Balance 120 Weight Intake: IV cefTRIAXone 1 gm In Sodium Chloride 0.9% 50 ml @ 100 mls/hr IVPB Q24HR [facility] Rx#:[id number] Oral 120 Other: Voiding Method # Voids 1 # Bowel Movements - Exam In general patient is alert and oriented 3 in no apparent distress HEENT head normocephalic and atraumatic. Hemodialysis port right upper chest wall Neck is supple no JVD no goiter Chest exam reveals a scattered crackles bilaterally no wheezing Cardiac exam reveals regular heart sounds no gallops no murmurs Abdomen is soft nontender no organomegaly Extremity exam reveals 2+ edema no cyanosis or clubbing Neurological examination reveals no gross focal deficits - Labs CBC & Chem 7: 10/12/19 05:58 10/12/19 05:58 Labs: Abnormal Lab Results - Last 24 Hours (Table) 10/12/19 10/12/19 10/13/19 Range/Units 11:43 20:28 06:04 POC Glucose (mg/dL) 113 H 128 H 113 H (75-99) mg/dL Assessment and Plan Plan: #1 severe shortness of breath improved most likely related to fluid overload patient was started on IV Lasix and consultation for nephrology was initiated to assess if patient needs to be started on hemodialysis during this admission #2 abnormal chest x-ray revealing evidence of hilar fullness, will continue to monitor and repeat chest x-ray once fluid overload has resolved #3 indeterminate VQ scan, doubt pulmonary embolism, bilateral lower extremity Doppler was ordered. #4 underlying history of chronic atrial fibrillation #5 underlying history of chronic kidney disease #6 underlying history of diabetes mellitus #7 underlying history of hypertension #8 underlying history of anemia #9 nausea and vomiting will give IV Zofran will check abdomen ultrasound At this time patient was started on IV Lasix She is maintained on supplemental for anticoagulation Pulmonary cardiology and nephrology consultation requested Will recheck labs in a.m. and follow closely
[2019-10-13] MEDS: APIXABAN 2.5 MG TABLET PO SCH ×2 (10:05→21:17)
[2019-10-13] MEDS: FERROUS SULFATE 325 MG TAB PO SCH (10:05)
[2019-10-13] MEDS: CHOLECALCIFEROL 1,000 UNIT TAB PO SCH (10:05)
[2019-10-13] MEDS: TORSEMIDE 20 MG TAB PO SCH (10:06)
[2019-10-13] MEDS: VIT A,C & E-LUTEIN-MINERALS 1 EACH TAB PO SCH ×2 (10:06→22:11)
[2019-10-13] MEDS: DOCUSATE 100 MG CAP PO SCH ×2 (10:06→21:17)
[2019-10-13] MEDS: PANTOPRAZOLE 40 MG TABLET PO SCH (10:07)
[2019-10-13] MEDS: METOPROLOL TARTRATE 25 MG TAB PO SCH ×3 (10:07→22:09)
[2019-10-13] MEDS: BRIMONIDINE TARTRATE 0.2% DROPS 5 ML BTL BOTH EYES SCH ×2 (10:09→21:18)
[2019-10-13] MEDS: DORZOLAMIDE HCL 2% DROPS 10 ML BTL BOTH EYES SCH ×2 (10:09→21:18)
--- NOTE | 2019-10-13 10:25 | P.PN ---
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 Indeterminate VQ scan less likely PE Chronic renal failure 10/13/2019, patient seen eval examined during the rounds labs reviewed medications reviewed care plan discussed, denies any chest pain and shortness of breath but however patient is not feeling well she is having hiccups with dyspepsia, patient is on clear liquid diet ultrasound of abdomen planned, the catheter site is intact but however some oozing is noted which is been stabilized vascular surgery following 10/12/2019, patient seen eval reexamined during the rounds labs reviewed medications reviewed sitting upright in the bed breathing well, patient had episode of the of [facility] nauseous and throw up once now she is improved now and during that process she has a small hemorrhage of the catheter site, hemostasis achieved no active bleeding is present, vascular surgery has been notified by staff 10/11/2019, patient seen eval examined during the rounds labs reviewed medications reviewed care plan discussed sitting upright on the bed undergoing hemodialysis today is the second cycle hemodialysis denies any shortness of breath or chest pain 10/10/2019, patient seen eval examined during the rounds labs reviewed medications reviewed patient is undergoing hemodialysis doing well denies any chest pain hemodynamic status stable breathing more comfortably 10/09/2019, patient seen eval examined during the rounds labs reviewed medications reviewed respiratory status stable patient is a 4 permacath plac ement later on today hemodynamic shoes stable patient is a going to undergo hemodialysis as planned by renal services, labs are reviewed BUN/creatinine is elevated 85/3.07, blood pressure in the lower side, oxygen saturation is 99% on room air 10/08/2019, patient seen eval reexamined during the rounds sitting upright on the chest on the chair breathing comfortably denies any chest pain, due to ch ronic renal failure renal services to hemodialysis patient has been taken off of anticoagulation dialysis catheter is being planned for tomorrow, duplex ultrasound of the lower extremity revealed a chronic old thrombosis in the near and right lower extremity left is negative up her extremities are also negative for acute DVT This is a 84-year-old female with chronic atrial fibrillation well-known to me patient has been on chronic long-term lifelong anticoagulation she has chronic atrial fibrillation small pleural effusion, she has a congestive heart failure due to that, patient this morning woke up with chronic stable shortness of breath and some left-sided chest pain improved with applying pressure, came into emergency department, patient has been recently discharged from the hospital ye sterday, patient underwent a chest x-ray revealed prominent right hilum and cardiomegaly no pleural effusion seen, VQ scan shows matching defects, labs significant for elevated BUN/creatinine of 96 and 2.87, BNP is over 15,000, Objective - Vital Signs Vital signs: Vital Signs Temp 98.1 F 10/13/19 03:15 Pulse 70 10/13/19 03:15 Resp 18 10/13/19 03:15 BP 113/68 10/13/19 03:15 Pulse Ox 98 10/13/19 03:15 Intake & Output 10/12/19 10/13/19 10/13/19 17:59 06:59 18:59 Intake Total 120 Balance 120 Weight Intake: IV cefTRIAXone 1 gm In Sodium Chloride 0.9% 50 ml @ 100 mls/hr IVPB Q24HR [facility] Rx#:[id number] Oral 120 Other: Voiding Method # Voids 1 # Bowel Movements - Exam - Constitutional General appearance: average body habitus, disheveled, no acute distress - EENT Eyes: EOMI, PERRLA Ears: bilateral: normal - Neck Carotids: bilateral: upstroke normal - Respiratory Respiratory: bilateral: CTA - Cardiovascular Rhythm: regular Heart sounds: normal: S1, S2 - Gastrointestinal General gastrointestinal: decreased bowel sounds - Neurologic Neurologic: CNII-XII intact - Musculoskeletal Musculoskeletal: gait normal, generalized weakness, strength equal bilaterally - Psychiatric Psychiatric: A&O x's 3, appropriate affect, intact judgment & insight - Labs CBC & Chem 7: 10/12/19 05:58 10/12/19 05:58 Labs: Abnormal Lab Results - Last 24 Hours (Table) 10/12/19 10/12/19 10/13/19 Range/Units 11:43 20:28 06:04 POC Glucose (mg/dL) 113 H 128 H 113 H (75-99) mg/dL Assessment and Plan Assessment: Atypical chest pain Chronic renal failure likely cardiorenal Abnormal x-ray with hilar fullness Chronic atrial fibrillation on lifelong anticoagulation with his Xarelto Indeterminate VQ scan less likely PE Chronic pleural effusion Plan: For hemodialysis per renal services Continue anticoagulation Reviewed duplex ultrasound of both upper and lower extremity Follow clinical course closely Resume anticoagulation post dialysis catheter placement, Computed tomography scan of the chest to be performed once patient is stable without dye t Time with Patient: Greater than 30
[2019-10-13] MEDS: ONDANSETRON 4 MG/2 ML VIAL IVP PRN ×2 (10:37→17:52)
--- NOTE | 2019-10-13 11:27 | US ---
EXAMINATION TYPE: US abdomen complete DATE OF EXAM: 10/13/2019 COMPARISON: 06/17/2018 CLINICAL HISTORY: 84-year-old female abdominal pain, vomiting. EXAM MEASUREMENTS: Liver Length: 13.3 cm Gallbladder Wall: 0.8 cm CBD: 0.7 cm Spleen: 9.9 cm Right Kidney: 7.4 x 3.7 x 4.4 cm Left Kidney: 9.2 x 6.2 x 5.7 cm ANALYTICS INTERN NOTES: Technically difficult study due to extensive midline bowel gas. Pancreas: not visualized due to bowel gas Liver: Heterogeneous appearance may be technical. No focal lesion seen. Gallbladder: full of stones, wall thickening up to 8 mm. Evidence for sonographic Crawford's sign: No CBD: measures 0.7 cm , mildly dilated but acceptable given patient's age. Spleen: wnl Right Kidney: not well visualized, echogenic cortex, no hydronephrosis. Left Kidney: not well visualized, echogenic cortex, no hydronephrosis. Upper IVC: wnl Abd Aorta: not visualized due to bowel gas Incidental note is made of right pleural effusion. IMPRESSION: 1. Gallbladder is packed with calculi. There is moderate wall thickening up to 8 mm. As sonographic M urphy sign is reported absent, correlate for possible chronic cholecystitis. HIDA scan with ejection fraction can be performed if further evaluation is indicated. 2. Heterogeneous liver may be on a technical basis. Correlate with LFTs to exclude nonspecific hepato cellular disease. 3. Mildly dilated bile duct probably normal given the patient's age. Correlate for normal alkaline ph osphatase and bilirubin levels to exclude biliary obstruction. 4. Chronic medical renal disease. No hydronephrosis. 5. Right pleural effusion noted.
[2019-10-13 11:32] LABS: Glucose,Whole Blood 97 mg/dL (75-99)
--- NOTE | 2019-10-13 11:36 | P.PN ---
Subjective Progress Note Date: 10/13/19 Follow-up for hemodialysis. Her catheter bleeding around the insertion site. Nauseated today. With episodes of vomiting Objective - Vital Signs Vital signs: Vital Signs Temp 98.1 F 10/13/19 03:15 Pulse 70 10/13/19 03:15 Resp 18 10/13/19 03:15 BP 113/68 10/13/19 03:15 Pulse Ox 98 10/13/19 03:15 Intake & Output 10/12/19 10/13/19 10/13/19 17:59 06:59 18:59 Intake Total 120 Balance 120 Weight Intake: IV cefTRIAXone 1 gm In Sodium Chloride 0.9% 50 ml @ 100 mls/hr IVPB Q24HR [facility] Rx#:[id number] Oral 120 Other: Voiding Method # Voids 1 # Bowel Movements - Exam No acute distress S1-S2 heard Decreased breath sounds Abdomen soft Right jugular permacath 2+ edema - Labs CBC & Chem 7: 10/12/19 05:58 10/12/19 05:58 Labs: Abnormal Lab Results - Last 24 Hours (Table) 10/12/19 10/12/19 10/13/19 Range/Units 11:43 20:28 06:04 POC Glucose (mg/dL) 113 H 128 H 113 H (75-99) mg/dL Assessment and Plan Assessment: #1 end-stage renal disease currently on hemodialysis started on 10/10/2019. #2 volume overload #3 anemia with ESRD #4 low normal blood pressures on midodrine #5 nausea with vomiting Plan: #1 next dialysis Monday #2 outpatient dialysis placement. #3 supportive care
[2019-10-13] MEDS: PANTOPRAZOLE 40 MG/10 ML VIAL IVP SCH (11:57)
--- NOTE | 2019-10-13 12:38 | P.PN ---
Subjective This is a pleasant 84 showed female with known history of chronic persistent atrial fibrillation on long-term anticoagulation, progressive renal failure on hemodialysis, cardiomyopathy, valvular heart disease and chronic heart failure. She is seen and examined resting comfortably. She ambulated from the bedside chair without difficulty. She has no exertional shortness of breath or chest discomfort. She is complaining of ongoing nausea with some vomiting. Blood pressure 113/68 heart rate 70 afebrile maintaining oxygen saturation on room air. Currently maintained on Eliquis 2.5 mg twice a day, Lopressor 50 mg twice a day with an additional dose of 25 mg in the afternoon and torsemide 20 mg daily. GENERAL: Well-appearing, well-nourished and in no acute distress. NECK: Supple without JVD or thyromegaly. LUNGS: Breath sounds clear to auscultation bilaterally. Respiration equal and unlabored. No wheezes, rales or rhonchi. HEART: Irregular rate and rhythm with murmur at the apex, no rubs or gallops. S1 and S2 heard. EXTREMITIES: Normal range of motion, ongoing bilateral lower extremity 2+ pitting edema. No clubbing or cyanosis. Peripheral pulses intact. ASSESSMENT Acute on chronic systolic and diastolic heart failure, improved Fluid overload from renal failure Nausea vomiting and abdominal discomfort patient scheduled to undergo abdominal ultrasound. Has chronic cholecystitis and gallstones. Been evaluated by Dr. Cintron the past. End-stage renal disease on hemodialysis Chronic persistent atrial fibrillation on long-term anticoagulation Hypertension Valvular heart disease Cardiomyopathy PLAN Continue current medical regimen. She is scheduled to undergo dialysis tomorrow. Likely can be discharged once complete. Nurse Practitioner note has been reviewed, I agree with a documented findings and plan of care. Patient was seen and examined. Objective - Vital Signs Vital signs: Vital Signs Temp 98.1 F 10/13/19 03:15 Pulse 70 10/13/19 03:15 Resp 18 10/13/19 03:15 BP 113/68 10/13/19 03:15 Pulse Ox 98 10/13/19 03:15 Intake & Output 10/12/19 10/13/19 10/13/19 17:59 06:59 18:59 Intake Total 120 Balance 120 Weight Intake: IV cefTRIAXone 1 gm In Sodium Chloride 0.9% 50 ml @ 100 mls/hr IVPB Q24HR [facility] Rx#:[id number] Oral 120 Other: Voiding Method # Voids 1 # Bowel Movements - Labs CBC & Chem 7: 10/12/19 05:58 10/12/19 05:58 Labs: Abnormal Lab Results - Last 24 Hours (Table) 10/12/19 10/12/19 10/13/19 Range/Units 11:43 20:28 06:04 POC Glucose (mg/dL) 113 H 128 H 113 H (75-99) mg/dL
[2019-10-13 16:45] LABS: Glucose,Whole Blood 108 mg/dL (75-99)
[2019-10-13] MEDS: LINAGLIPTIN 5 MG TABLET PO SCH (17:40)
[2019-10-13 20:19] LABS: Glucose,Whole Blood 99 mg/dL (75-99)
[2019-10-14] MEDS: Acetaminophen-Codeine 300-30mg TAB PO SCH ×4 (05:26→22:38)
[2019-10-14 06:07] LABS: Glucose,Whole Blood 96 mg/dL (75-99)
[2019-10-14] MEDS: INSULIN ASPART (NovoLOG) 100 UNIT/ML VIAL SQ SCH ×4 (06:08→20:57)
[2019-10-14] MEDS: METOPROLOL TARTRATE 25 MG TAB PO SCH ×3 (06:15→22:37)
[2019-10-14] MEDS: BRIMONIDINE TARTRATE 0.2% DROPS 5 ML BTL BOTH EYES SCH ×2 (06:16→20:58)
[2019-10-14] MEDS: DORZOLAMIDE HCL 2% DROPS 10 ML BTL BOTH EYES SCH ×2 (06:16→20:58)
[2019-10-14 06:28] LABS: Anisocytosis Slight; Basophils % (A) 0 %; Eosinophils # (A) 0.1 k/uL (0-0.7); Eosinophils % (A) 2 %; HCT 31.2 % (34.0-46.0); HGB 9.6 gm/dL (11.4-16.0); Hypochromasia Moderate; Lymphocytes # (A) 0.7 k/uL (1.0-4.8); Lymphocytes % (A) 12 %; MCH 35.7 pg (25.0-35.0); MCHC 30.8 g/dL (31.0-37.0); Macrocytosis Marked; Mean Platelet Volume 9.1; Monocytes # (A) 0.4 k/uL (0-1.0); Monocytes % (A) 7 %; Neutrophils # (A) 4.5 k/uL (1.3-7.7); Neutrophils % (A) 75 %; Platelet Count 127 k/uL (150-450); RBC 2.68 m/uL (3.80-5.40); RDW 17.7 % (11.5-15.5)
[2019-10-14 06:30] LABS: MCV 116.1 fL (80.0-100.0)
[2019-10-14] MEDS: CALCIUM ACETATE 667 MG TAB PO SCH ×3 (06:33→16:49)
[2019-10-14] MEDS: MIDODRINE 5 MG TAB PO SCH ×3 (06:35→22:37)
[2019-10-14 06:41] LABS: Albumin 2.9 g/dL (3.5-5.0); Calcium 8.8 mg/dL (8.4-10.2); Potassium 4.5 mmol/L (3.5-5.1); Total Bilirubin 0.7 mg/dL (0.2-1.3); Total Protein 5.5 g/dL (6.3-8.2)
[2019-10-14] MEDS: ALLOPURINOL 100 MG TAB PO SCH (08:00)
--- NOTE | 2019-10-14 10:40 | P.PN ---
Subjective Progress Note Date: 10/14/19 Trina Carrillo, he is an 84-year-old female who was recently discharged from [facility], who presented to emergency room was a chief complaint of worsening shortness of breath, sharp pain in the chest, and significant swelling in the bilateral lower extremity, she was evaluated in emergency room and was admitted to telemetry floor for further evaluation and treatment BNP was elevated at 15,800 patient has known history of chronic renal failure with elevated BUN and creatinine she was evaluated by nephrology last admission and decision was made to start hemodialysis soon however patient condition deteriorated fast and patient and her family decided to return to emergency room. Due to shortness of breath patient had a VQ scan done in the emergency room, there was no clear evidence of any pulmonary embolism, there was matching ventilation and perfusion defects and the scan was read as intermediate probability for pulmonary embolus. Consultation for cardiology, pulmonary, nephrology were initiated in the emergency room. Patient was seen and examined on the telemetry floor, she is alert and oriented 3 in no apparent distress, at this time her chest pain has resolved and her shortness of breath has improved, she is still having significant bilateral lower extremity edema, otherwise she denies any complaints there is no fever or chills no headache or dizziness no chest pain, no cough no nausea or vomiting no abdominal pain no diarrhea no burning with urination no frequency or urgency no hematuria. On 10/07/2019 patient is alert and oriented 3. Patient does reports improvement with edema and shortness of breath. Patient remains on Lasix 40 every 8 hours. Patient still having some mild chest discomfort. Cardiology nephrology and pulmonary services are following. Venous Doppler was negative for DVTs. Urine culture has been ordered. On 10/08/2019 patient is alert and oriented 3. Family at bedside. Patient remains on IV Lasix. Plans for possible inpatient hemodialysis per nephrology recommendation. Family requesting to speak to Dr. Wellington in regards to VQ scan results before proceeding with hemodialysis. IV Lasix will be DC'd per nephrology and Demadex 20 mg daily ordered. Patient reports improvement with shortness of breath and chest pain. Per cardiology services anticoagulation has been switched from xarelto to eliquis. On 10/09/2019 patient is alert and oriented 3. Daughter at bedside. Patient has been started on Demadex IV Lasix DC'd plans for hemodialysis catheter access today per Dr. Collado anticoagulation currently on hold. Patient denies chest pain or shortness of breath. Patient denies nausea vomiting or diarrhea. Patie nt denies any urinary burning or frequency On 10/10/2019 patient is alert and oriented 3. Patient underwent hemodialysis catheter placement on 10/09/[address] Collado. Plans for hemodialysis today and for the next 3 days per nephrology. At this time patient is tired resting in bed. Patient denies any chest pain does report some discomfort around hemodialysis site. Patient denies any urinary burning or frequency On 10/11/2019 patient alert and oriented 3. Patient under went first chronic hemodialysis yesterday 1 L off. Plan for patient to get hemodialysis today and tomorrow with close monitoring of blood pressure and patient. Patient is alert and oriented. Patient denies chest pain. Patient denies shortness breath. Patient denies nausea vomiting or diarrhea. Patient denies any urinary burning or frequency On 10/12/2019 patient was seen and examined on the medical floor she is alert and oriented 3 in no apparent distress she accidentally pulled her dialysis catheter partially at night there is some bleeding around the catheter site otherwise she denies any complaints there is no fever or chills no headache or dizziness no chest pain no shortness of breath no cough no nausea or vomiting no abdominal pain no diarrhea and no urinary symptoms. On 10/13/2019 patient was seen and examined on the medical floor she is complaining of nausea and vomiting and feeling tired otherwise she denies any complaints, there is no fever or chills no headache or dizziness no chest pain no shortness of breath no cough no abdominal pain no diarrhea no burning with urination no frequency or urgency and no hematuria On 10/14/2019 patient is alert and oriented 3. Patient is currently getting hemodialysis. Patient still having oozing from hemodialysis site. She is maintained on eliquis, dosage has been decreased per cardiology. Nausea and vomiting have improved. Patient denies chest pain or shortness of breath. Patient denies any urinary burning or frequency Objective - Vital Signs Vital signs: Vital Signs Temp 97.7 F 10/14/19 08:00 Pulse 69 10/14/19 08:00 Resp 20 10/14/19 08:00 BP 114/58 10/14/19 08:00 Pulse Ox 100 10/14/19 08:00 Intake & Output 10/13/19 10/14/19 10/14/19 18:59 06:59 18:59 Intake Total 640 250 480 Balance 640 250 480 Weight 85.8 kg Intake: IV 50 cefTRIAXone 1 gm In 50 Sodium Chloride 0.9% 50 ml @ 100 mls/hr IVPB Q24HR [facility] Rx#:[id number] Oral 590 250 480 Other: Voiding Method Toilet Toilet # Voids 1 1 1 # Bowel Movements 1 - Exam In general patient is alert and oriented 3 in no apparent distress HEENT head normocephalic and atraumatic. Hemodialysis port right upper chest wall Neck is supple no JVD no goiter Chest exam reveals a scattered crackles bilaterally no wheezing Cardiac exam reveals regular heart sounds no gallops no murmurs Abdomen is soft nontender no organomegaly Extremity exam reveals 2+ edema no cyanosis or clubbing Neurological examination reveals no gross focal deficits - Labs CBC & Chem 7: 10/14/19 05:32 10/14/19 05:32 Labs: Abnormal Lab Results - Last 24 Hours (Table) 10/13/19 10/14/19 10/14/19 Range/Units 16:44 05:32 05:32 RBC 2.68 L (3.80-5.40) m/uL Hgb 9.6 L (11.4-16.0) gm/dL Hct 31.2 L (34.0-46.0) % MCV 116.1 H (80.0-100.0) fL MCH 35.7 H (25.0-35.0) pg MCHC 30.8 L (31.0-37.0) g/dL RDW 17.7 H (11.5-15.5) % Plt Count 127 L (150-450) k/uL Lymphocytes # 0.7 L (1.0-4.8) k/uL Macrocytosis Marked A Sodium 135 L (137-145) mmol/L BUN 44 H (7-17) mg/dL Creatinine 2.59 H (0.52-1.04) mg/dL POC Glucose (mg/dL) 108 H (75-99) mg/dL Total Protein 5.5 L (6.3-8.2) g/dL Albumin 2.9 L (3.5-5.0) g/dL Assessment and Plan Assessment: #1 severe shortness of breath improved most likely related to fluid overload patient related to acute on chronic systolic CHF secondary to end-stage renal disease was started on IV Lasix and consultation for nephrology was initiated to assess if patient needs to be started on hemodialysis during this admission. Patient and family are still waiting to make final decision in regards to hemodialysis. Would like to discuss with Dr. Wellington prior to making decision. Per nephrology IV Lasix has been DC'd and patient switched to Demadex. Hemodialysis access achieved on 10/09/[address] Collado. Patient will be on Monday hemodialysis schedule #2 abnormal chest x-ray revealing evidence of hilar fullness, will continue to monitor and repeat chest x-ray once fluid overload has resolved #3 indeterminate VQ scan, doubt pulmonary embolism, bilateral lower extremity Doppler was ordered. Venous Doppler of lower extremities showing no active DVT in the lower extremity. Persistent long segment thrombus in the right lower x- ray has been present on prior studies. Doppler study completed of upper extremities are negative for DVT in either extremity #4 underlying history of chronic atrial fibrillation #5 underlying history of chronic kidney disease stage IV #6 underlying history of diabetes mellitus controlled #7 underlying history of hypertension #8 underlying history of anemia of chronic renal disease #9. Urinary tract infection. Patient started on Rocephin. Urine culture completed and negative. Antibiotics will be DC'd #10 nausea and vomiting. Abdominal ultrasound completed. Patient maintained on clear liquid diet DVT prophylaxis eliquis. GI prophylaxis Protonix Pulmonary cardiology and nephrology following I performed an examination of the patient and discussed their management with the Nurse Practitioner. I have reviewed the Nurse Practitioner's notes and agree with the documented findings and plan of care
--- NOTE | 2019-10-14 11:12 | P.PN ---
Subjective Progress Note Date: 10/14/19 This is an 84-year-old female with history of persistent atrial fibrillation, chronic kidney disease, systolic congestive heart failure, presented to the hospital with progressive dyspnea, she is being treated for congestive heart failure here. Patient also has aggressively worsening renal failure and is being seen by nephrology. The plan is for the patient to undergo dialysis catheter placement today and perhaps be initiated on dialysis at either this evening or tomorrow morning. This morning the patient was sitting up in the chair at bedside, overall feels well, continues to have significant bilateral peripheral edema. Blood pressure 106/60 heart rate in the 60s, 99% on room air. Sodium 139, potassium 3.3, BUN 85, creatinine 3.0. Blood cell count 6.7, hemoglobin 10.0, platelet count 164. Magnesium 2.8. 10/10/2019 Patient seen and examined this morning, she had her dialysis catheter placed last night, she has not yet undergone dialysis. She is complaining of some mild discomfort at the site of her catheter but otherwise she's doing well. Scheduled for dialysis today. She will need to be resumed on her Eliquis, discuss this with Dr. Collado. 10/14/2019 Patient seen and examined this morning, overall doing well. No more nausea or vomiting today. She is having some notable oozing from the site of her dialysis catheter. We will hold her Eliquis for [address] Collado has been requested to come and look at the site today. Blood pressure 114/50 with a hear t rate in the 60s, 100% on room air. White blood cell count 6.0, hemoglobin 9.6, platelet count 127. Sodium 135, potassium 4.5, BUN 44, creatinine 2.5. Objective - Vital Signs Vital signs: Vital Signs Temp 97.7 F 10/14/19 08:00 Pulse 69 10/14/19 08:00 Resp 20 10/14/19 08:00 BP 114/58 10/14/19 08:00 Pulse Ox 100 10/14/19 08:00 Intake & Output 10/13/19 10/14/19 10/14/19 18:59 06:59 18:59 Intake Total 640 250 480 Balance 640 250 480 Weight 85.8 kg Intake: IV 50 cefTRIAXone 1 gm In 50 Sodium Chloride 0.9% 50 ml @ 100 mls/hr IVPB Q24HR [facility] Rx#:[id number] Oral 590 250 480 Other: Voiding Method Toilet Toilet # Voids 1 1 1 # Bowel Movements 1 - Exam PHYSICAL EXAMINATION: GENERAL: 84-year-old female in no acute distress at the time of my examination HEENT: Head is atraumatic, normocephalic. Pupils equal, round. Sclera anicteric. Conjunctiva are clear. Mucous membranes of the mouth are moist. Neck is supple. There is no elevated jugular venous pressure. No carotid br uit is heard. HEART EXAMINATION: Heart S1 and S2 irregularly irregular systolic murmur is heard at the apex, holosystolic murmur is heard. CHEST EXAMINATION: Lungs are clear to auscultation and precussion. No chest wall tenderness is noted on palpation or with deep breathing. Site of dialysis cat heter, oozing noted ABDOMEN: Soft, nontender. Bowel sounds are heard. No organomegaly noted. EXTREMITIES:[ 2+ peripheral pulses with 2+ evidence of lower extremity peripheral edema NEUROLOGIC patient is awake, alert and oriented 3. . - Labs CBC & Chem 7: 10/14/19 05:32 10/14/19 05:32 Labs: Abnormal Lab Results - Last 24 Hours (Table) 10/13/19 10/14/19 10/14/19 Range/Units 16:44 05:32 05:32 RBC 2.68 L (3.80-5.40) m/uL Hgb 9.6 L (11.4-16.0) gm/dL Hct 31.2 L (34.0-46.0) % MCV 116.1 H (80.0-100.0) fL MCH 35.7 H (25.0-35.0) pg MCHC 30.8 L (31.0-37.0) g/dL RDW 17.7 H (11.5-15.5) % Plt Count 127 L (150-450) k/uL Lymphocytes # 0.7 L (1.0-4.8) k/uL Macrocytosis Marked A Sodium 135 L (137-145) mmol/L BUN 44 H (7-17) mg/dL Creatinine 2.59 H (0.52-1.04) mg/dL POC Glucose (mg/dL) 108 H (75-99) mg/dL Total Protein 5.5 L (6.3-8.2) g/dL Albumin 2.9 L (3.5-5.0) g/dL Assessment and Plan Plan: Assessment and plan #1 systolic congestive heart failure acute on chronic #2 history of mitral regurgitation #3 persistent atrial fibrillation #4 pulmonary hypertension #5 acute on chronic renal failure, currently on dialysis #6 history of DVT with prior [place] filter #7 diabetes #8 hypertension #9 hyperlipidemia Plan From cardiology's perspective, we will hold the Eliquis for 48 hours because of the bleeding at the dialysis catheter site. Patient will have a follow-up appointment with Dr. May in the office post discharge. DNP note has been reviewed, I agree with a documented findings and plan of care. Patient was seen and examined.
[2019-10-14 12:06] LABS: Glucose,Whole Blood 83 mg/dL (75-99)
[2019-10-14] MEDS: CHOLECALCIFEROL 1,000 UNIT TAB PO SCH (13:02)
[2019-10-14] MEDS: DOCUSATE 100 MG CAP PO SCH ×2 (13:03→20:58)
[2019-10-14] MEDS: FERROUS SULFATE 325 MG TAB PO SCH (13:03)
[2019-10-14] MEDS: PANTOPRAZOLE 40 MG/10 ML VIAL IVP SCH (13:03)
[2019-10-14] MEDS: VIT A,C & E-LUTEIN-MINERALS 1 EACH TAB PO SCH ×2 (13:04→20:58)
[2019-10-14] MEDS: CALCITRIOL 0.25 MCG CAP PO SCH (13:04)
[2019-10-14] MEDS: TORSEMIDE 20 MG TAB PO SCH (13:05)
[2019-10-14] MEDS ORDERED: DESMOPRESSIN ACETATE 20 MCG in SODIUM CHLORIDE 0.9% 50 ML IVPB ONE (14:57)
--- NOTE | 2019-10-14 15:40 | PN ---
PROGRESS NOTE Patient is seen for followup for end-stage renal disease. She has had oozing from her catheter site and it appears that the patient has a hematoma. I believe there has not been any active bleeding. The patient was dialyzed this morning. She states she is feeling better today. She did have some nausea and upset stomach yesterday. PHYSICAL EXAMINATION: On examination, patient is comfortable, awake, not in any acute distress. Blood pressure was 114/69, heart rate 86 per minute, she is afebrile. Examination of the heart S1, S2. Examination of the lungs, bilateral breath sounds are heard. Abdomen is soft, nontender. Examination lower extremities shows edema 1+ bilaterally. SHEAR SCRAPMAN exam grossly intact. There is a pressure dressing on her right IJ PermCath. LAB: Show sodium 135, potassium 4.5, BUN 44, creatinine 2.59, hemoglobin of 9.6 g/dL. ASSESSMENT: 1. End-stage renal disease, on hemodialysis on a Monday, Monday, Monday schedule, status post dialysis today. 2. Oozing/hematoma at the site of right IJ PermCath. No active bleeding noted. I will give her a dose of DDAVP. 3. Volume overload, currently improving. 4. Chronic kidney disease mineral bone disorder, currently stable. 5. Nausea, possibly related to underlying gallstones. Seems to have improved today. PLAN: DDAVP x1, evaluation by vascular surgery and next dialysis will be Monday. Continue with the oral diuretics for now. MMODL / IJN: [id number] /
[2019-10-14] MEDS: LINAGLIPTIN 5 MG TABLET PO SCH (16:49)
--- NOTE | 2019-10-14 16:51 | P.GSCN ---
History of Present Illness Consult date: 10/14/19 Reason for Consult: Chronic cholecystitis History of present illness: 84-year-old female known to our service. Recently hospitalized discharged and readmitted with renal failure. When leaving the hospital last admission she had decided against hemodialysis however upon readmission with complaints of shortness of breath chest pain and abdominal bloating decided to initiate hemodialysis. Temporary dialysis catheter was placed. She was also having complaints of nausea and vomiting. Denies pain. Those symptoms of nausea and vomiting have resolved. Feels well currently. Known to our service from previous evaluations. Known to have gallstones with intermittent episodes of mild cholecystitis. Patient high risk for surgical intervention and we have decided previously to treat her chronic cholecystitis nonoperatively. Patient is still trying to decide if she wants to continue on hemodialysis. She is hungry. Her liver enzymes are normal. Ultrasound report noted. No Crawford sign. Patient does have gallstones with a thickened wall. These findings were present previously. Review of Systems The patient denies any acute changes in vision or hearing, no dysphagia or odynophagia, no dysuria or hematuria, no headache, no runny nose, no rectal bleeding or melena, no unexplained weight loss Past Medical History Past Medical History: Atrial Fibrillation, Coronary Artery Disease (CAD), Cancer, Heart Failure, Diabetes Mellitus, Deep Vein Thrombosis (DVT), Eye Disorder, GERD/Reflux, Hypertension, Renal Disease Additional Past Medical History / Comment(s): Macular Degeneration and glaucoma, gallstones, stage 4 kidney failure, hx Uterine & groin CA; WEARS BILAT THIGH HIGH HOSE, uses cane or walker, patient states she has "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 left hip replacement, LEFT breast biopsy, darcy filter rt leg, biopsy of right nostril, biopsy rt breast Past Anesthesia/Blood Transfusion Reactions: No Reported Reaction Past Psychological History: No Psychological Hx Reported Smoking Status: Former smoker Past Alcohol Use History: None Reported Additional Past Alcohol Use History / Comment(s): smoked 1 pkg from 2 to 1971 Past Drug Use History: None Reported - Past Family History Mother Family Medical History: No Reported History Additional Family Medical History / Comment(s): Family states pt's mother " of pneumonia". Father Family Medical History: Diabetes Mellitus Medications and Allergies Home Medications Medication Instructions Recorded Confirmed Type Allopurinol [Zyloprim] 200 mg PO DAILY@0800 01/22/14 10/06/19 History Linagliptin [Tradjenta] 5 mg PO DAILY@1500 01/22/14 10/06/19 History Omeprazole [PriLOSEC] 20 mg PO DAILY@0700 01/22/14 10/06/19 History Docusate Sodium [Stool Softener] 100 mg PO BID@899,199902/22/14 10/06/19 History Garlic 1 tab PO BID@0900,199902/22/14 10/06/19 History Calcitriol 0.25 mcg PO SUTUTHSA@00 08/22/14 10/06/19 History Brinzolamide/Brimonidine Tart 1 drop BOTH EYES BID@0700,199905/11/17 10/06/19 History [Simbrinza 1%-0.2% Eye Drops] Vit C/E/Zn/Coppr/Lutein/Zeaxan 1 cap PO BID@0900,199912/03/17 10/06/19 History [Preservision Areds 2 Softgel] Ferrous Sulfate [Feosol] 325 mg PO DAILY@0800 01/11/18 10/06/19 History Cholecalciferol (Vitamin D3) 2,000 unit PO DAILY@79902/10/18 10/06/19 History [Vitamin D3] Isosorbide Mononitrate ER [Imdur] 60 mg PO DAILY@79902/10/18 10/06/19 History Wheat Dextrin [Benefiber] 1 packet PO BID@799,199902/10/18 10/06/19 History Midodrine [ProAmatine] 10 mg PO TID@0700,1500,2300 04/10/18 10/06/19 History Rivaroxaban [Xarelto] 10 mg PO DAILY@0800 04/10/18 10/06/19 History Metoprolol Tartrate [Lopressor] 25 mg PO DAILY@1500 06/15/18 10/06/19 History Metoprolol Tartrate [Lopressor] 50 mg PO BID@0700,2300 09/18/18 10/06/19 History Ondansetron [Zofran] 4 mg PO Q12H PRN 09/18/18 10/06/19 History Potassium Chloride ER [K-Dur 10] 30 meq PO BID@0800,1500 04/02/19 10/06/19 History Acetaminophen-Codeine 300-30mg 1 tab PO Q6H PRN 09/30/19 10/06/19 History [Tylenol w/codeine #3] Calcium Acetate [PhosLo] 1,334 mg PO TID-W/MEALS 30 Days 10/04/19 10/06/19 Rx #180 tab Torsemide [Demadex] 20 mg PO Q48H #0 10/04/19 10/06/19 Rx Cefuroxime Axetil [Ceftin] 500 mg PO BID@0800,2000 10/06/19 10/06/19 History Sodium Bicarbonate Tab 1,300 mg PO TID@0800,1500,2100 10/06/19 10/06/19 History Allergies Allergy/AdvReac Type Severity Reaction Status Date / Time atorvastatin calcium Allergy Unknown Verified 10/06/19 12:05 [From Lipitor] codeine Allergy Unknown Verified 10/06/19 12:05 [From Tylenol-Codeine #3] adhesive tape AdvReac Intermediate Unknown Verified 10/06/19 12:05 hydrocodone AdvReac Vomiting Verified 10/06/19 12:05 Surgical - Exam Vital Signs Temp Pulse Resp BP Pulse Ox 97.8 F 80 18 133/69 97 10/06/19 05:14 10/06/19 05:14 10/06/19 05:14 10/06/19 05:14 10/06/19 05:14 Physical exam: General: Well-developed, well-nourished HEENT: Normocephalic, sclerae nonicteric Abdomen: Nontender, nondistended Extremities: No edema Neuro: Alert and oriented Results - Labs 10/14/19 05:32 10/14/19 05:32 Abnormal Lab Results - Last 24 Hours (Table) 10/14/19 10/14/19 Range/Units 05:32 05:32 RBC 2.68 L (3.80-5.40) m/uL Hgb 9.6 L (11.4-16.0) gm/dL Hct 31.2 L (34.0-46.0) % MCV 116.1 H (80.0-100.0) fL MCH 35.7 H (25.0-35.0) pg MCHC 30.8 L (31.0-37.0) g/dL RDW 17.7 H (11.5-15.5) % Plt Count 127 L (150-450) k/uL Lymphocytes # 0.7 L (1.0-4.8) k/uL Macrocytosis Marked A Sodium 135 L (137-145) mmol/L BUN 44 H (7-17) mg/dL Creatinine 2.59 H (0.52-1.04) mg/dL Total Protein 5.5 L (6.3-8.2) g/dL Albumin 2.9 L (3.5-5.0) g/dL Diabetes panel 10/14/19 Range/Units 05:32 Sodium 135 L (137-145) mmol/L Potassium 4.5 (3.5-5.1) mmol/L Chloride 104 (98-107) mmol/L Carbon Dioxide 23 (22-30) mmol/L BUN 44 H (7-17) mg/dL Creatinine 2.59 H (0.52-1.04) mg/dL Glucose 86 (74-99) mg/dL Calcium 8.8 (8.4-10.2) mg/dL AST 23 (14-36) U/L ALT 14 (4-34) U/L Alkaline Phosphatase 112 (38-126) U/L Total Protein 5.5 L (6.3-8.2) g/dL Albumin 2.9 L (3.5-5.0) g/dL Calcium panel 10/14/19 Range/Units 05:32 Calcium 8.8 (8.4-10.2) mg/dL Albumin 2.9 L (3.5-5.0) g/dL Pituitary panel 10/14/19 Range/Units 05:32 Sodium 135 L (137-145) mmol/L Potassium 4.5 (3.5-5.1) mmol/L Chloride 104 (98-107) mmol/L Carbon Dioxide 23 (22-30) mmol/L BUN 44 H (7-17) mg/dL Creatinine 2.59 H (0.52-1.04) mg/dL Glucose 86 (74-99) mg/dL Calcium 8.8 (8.4-10.2) mg/dL Adrenal panel 10/14/19 Range/Units 05:32 Sodium 135 L (137-145) mmol/L Potassium 4.5 (3.5-5.1) mmol/L Chloride 104 (98-107) mmol/L Carbon Dioxide 23 (22-30) mmol/L BUN 44 H (7-17) mg/dL Creatinine 2.59 H (0.52-1.04) mg/dL Glucose 86 (74-99) mg/dL Calcium 8.8 (8.4-10.2) mg/dL Total Bilirubin 0.7 (0.2-1.3) mg/dL AST 23 (14-36) U/L ALT 14 (4-34) U/L Alkaline Phosphatase 112 (38-126) U/L Total Protein 5.5 L (6.3-8.2) g/dL Albumin 2.9 L (3.5-5.0) g/dL Assessment and Plan (1) Chronic cholecystitis with calculus Narrative/Plan: Recommend resuming low-fat diet. Monitor symptoms. No antibiotics at this time. Will follow with you. Current Visit: Yes Status: Acute Code(s): K80.10 - CALCULUS OF GALLBLADDER W CHRONIC CHOLECYST W/O OBSTRUCTION SNOMED Code(s): 32741152
[2019-10-14 17:25] LABS: Glucose,Whole Blood 124 mg/dL (75-99)
[2019-10-14] MEDS: APIXABAN 2.5 MG TABLET PO SCH (18:38)
[2019-10-14 20:55] LABS: Glucose,Whole Blood 177 mg/dL (75-99)
[2019-10-15] MEDS: Acetaminophen-Codeine 300-30mg TAB PO SCH ×4 (04:45→23:22)
--- NOTE | 2019-10-15 05:55 | PN ---
PROGRESS NOTE The patient was seen on 10/14/2019. She has been hemodynamically stable. She has some bleeding from her right chest wall where she has a port. She is less short of breath overall. On physical examination, respiratory rate is 14, pulse rate 84, temperature 98, blood pressure 98/58, O2 saturation on room air is 100%. HEENT is unremarkable. Chest reveals decreased breath sounds on the bases. Cardiovascular system reveals an S1, S2. Abdomen is soft. There is 1+ to 2+ pedal edema. LABS: Labs reveal a white count of 6, hemoglobin of 9.6, BUN 44, creatinine 2.59. IMPRESSION AT THIS TIME: 1. Dyspnea secondary to fluid overload from congestive heart failure and end-stage renal disease. 2. Atrial fibrillation. 3. Medical debility. Doubt DVT and PE. Continue current medications which were reviewed. MMODL / IJN: [id number] /
[2019-10-15] MEDS: METOPROLOL TARTRATE 25 MG TAB PO SCH ×3 (06:14→22:19)
[2019-10-15] MEDS: MIDODRINE 5 MG TAB PO SCH ×3 (06:14→22:18)
[2019-10-15] MEDS: DORZOLAMIDE HCL 2% DROPS 10 ML BTL BOTH EYES SCH ×2 (06:15→22:20)
[2019-10-15] MEDS: BRIMONIDINE TARTRATE 0.2% DROPS 5 ML BTL BOTH EYES SCH ×2 (06:15→22:19)
[2019-10-15] MEDS: INSULIN ASPART (NovoLOG) 100 UNIT/ML VIAL SQ SCH ×4 (06:22→22:07)
[2019-10-15] MEDS: ONDANSETRON 4 MG/2 ML VIAL IVP PRN ×2 (06:22→17:17)
[2019-10-15 06:24] LABS: Glucose,Whole Blood 98 mg/dL (75-99)
[2019-10-15] MEDS: CALCIUM ACETATE 667 MG TAB PO SCH ×3 (06:55→17:19)
[2019-10-15 07:37] LABS: Albumin 3.2 g/dL (3.5-5.0); Calcium 9.1 mg/dL (8.4-10.2); Total Bilirubin 0.7 mg/dL (0.2-1.3); Total Protein 6.1 g/dL (6.3-8.2)
[2019-10-15 07:39] LABS: Potassium 4.7 mmol/L (3.5-5.1)
[2019-10-15 07:46] LABS: Anisocytosis Slight; Basophils % (A) 0 %; Eosinophils # (A) 0.2 k/uL (0-0.7); Eosinophils % (A) 2 %; HCT 32.5 % (34.0-46.0); HGB 10.2 gm/dL (11.4-16.0); Hypochromasia Slight; Lymphocytes # (A) 1.5 k/uL (1.0-4.8); Lymphocytes % (A) 18 %; MCH 35.8 pg (25.0-35.0); MCHC 31.4 g/dL (31.0-37.0); Macrocytosis Marked; Mean Platelet Volume 10.4; Monocytes # (A) 0.6 k/uL (0-1.0); Monocytes % (A) 7 %; Neutrophils # (A) 5.6 k/uL (1.3-7.7); Neutrophils % (A) 69 %; Platelet Count 159 k/uL (150-450); RBC 2.85 m/uL (3.80-5.40); RDW 17.9 % (11.5-15.5); WBC 8.2 k/uL (3.8-10.6)
[2019-10-15] MEDS: DOCUSATE 100 MG CAP PO SCH ×2 (08:57→22:18)
[2019-10-15] MEDS: ALLOPURINOL 100 MG TAB PO SCH (08:57)
[2019-10-15] MEDS: PANTOPRAZOLE 40 MG/10 ML VIAL IVP SCH (08:57)
[2019-10-15] MEDS: CHOLECALCIFEROL 1,000 UNIT TAB PO SCH (08:57)
[2019-10-15] MEDS: VIT A,C & E-LUTEIN-MINERALS 1 EACH TAB PO SCH ×2 (08:57→23:27)
[2019-10-15] MEDS: FERROUS SULFATE 325 MG TAB PO SCH (08:57)
[2019-10-15] MEDS: TORSEMIDE 20 MG TAB PO SCH (08:57)
[2019-10-15 10:23] LABS: Poikilocytosis (M) Present
--- NOTE | 2019-10-15 11:09 | P.PN ---
Subjective Progress Note Date: 10/15/19 Trina Carrillo, he is an 84-year-old female who was recently discharged from [facility], who presented to emergency room was a chief complaint of worsening shortness of breath, sharp pain in the chest, and significant swelling in the bilateral lower extremity, she was evaluated in emergency room and was admitted to telemetry floor for further evaluation and treatment BNP was elevated at 15,800 patient has known history of chronic renal failure with elevated BUN and creatinine she was evaluated by nephrology last admission and decision was made to start hemodialysis soon however patient condition deteriorated fast and patient and her family decided to return to emergency room. Due to shortness of breath patient had a VQ scan done in the emergency room, there was no clear evidence of any pulmonary embolism, there was matching ventilation and perfusion defects and the scan was read as intermediate probability for pulmonary embolus. Consultation for cardiology, pulmonary, nephrology were initiated in the emergency room. Patient was seen and examined on the telemetry floor, she is alert and oriented 3 in no apparent distress, at this time her chest pain has resolved and her shortness of breath has improved, she is still having significant bilateral lower extremity edema, otherwise she denies any complaints there is no fever or chills no headache or dizziness no chest pain, no cough no nausea or vomiting no abdominal pain no diarrhea no burning with urination no frequency or urgency no hematuria. On 10/07/2019 patient is alert and oriented 3. Patient does reports improvement with edema and shortness of breath. Patient remains on Lasix 40 every 8 hours. Patient still having some mild chest discomfort. Cardiology nephrology and pulmonary services are following. Venous Doppler was negative for DVTs. Urine culture has been ordered. On 10/08/2019 patient is alert and oriented 3. Family at bedside. Patient remains on IV Lasix. Plans for possible inpatient hemodialysis per nephrology recommendation. Family requesting to speak to Dr. Wellington in regards to VQ scan results before proceeding with hemodialysis. IV Lasix will be DC'd per nephrology and Demadex 20 mg daily ordered. Patient reports improvement with shortness of breath and chest pain. Per cardiology services anticoagulation has been switched from xarelto to eliquis. On 10/09/2019 patient is alert and oriented 3. Daughter at bedside. Patient has been started on Demadex IV Lasix DC'd plans for hemodialysis catheter access today per Dr. Collado anticoagulation currently on hold. Patient denies chest pain or shortness of breath. Patient denies nausea vomiting or diarrhea. Patie nt denies any urinary burning or frequency On 10/10/2019 patient is alert and oriented 3. Patient underwent hemodialysis catheter placement on 10/09/[address] Collado. Plans for hemodialysis today and for the next 3 days per nephrology. At this time patient is tired resting in bed. Patient denies any chest pain does report some discomfort around hemodialysis site. Patient denies any urinary burning or frequency On 10/11/2019 patient alert and oriented 3. Patient under went first chronic hemodialysis yesterday 1 L off. Plan for patient to get hemodialysis today and tomorrow with close monitoring of blood pressure and patient. Patient is alert and oriented. Patient denies chest pain. Patient denies shortness breath. Patient denies nausea vomiting or diarrhea. Patient denies any urinary burning or frequency On 10/12/2019 patient was seen and examined on the medical floor she is alert and oriented 3 in no apparent distress she accidentally pulled her dialysis catheter partially at night there is some bleeding around the catheter site otherwise she denies any complaints there is no fever or chills no headache or dizziness no chest pain no shortness of breath no cough no nausea or vomiting no abdominal pain no diarrhea and no urinary symptoms. On 10/13/2019 patient was seen and examined on the medical floor she is complaining of nausea and vomiting and feeling tired otherwise she denies any complaints, there is no fever or chills no headache or dizziness no chest pain no shortness of breath no cough no abdominal pain no diarrhea no burning with urination no frequency or urgency and no hematuria On 10/14/2019 patient is alert and oriented 3. Patient is currently getting hemodialysis. Patient still having oozing from hemodialysis site. She is maintained on eliquis, dosage has been decreased per cardiology. Nausea and vomiting have improved. Patient denies chest pain or shortness of breath. Patient denies any urinary burning or frequency On 10/15/2019 patient is alert and oriented 3. Patient currently sitting up in chair. Patient having some oozing at hemodialysis site. Patient was dilated by Dr. Collado. Patient states coagulation currently on hold did receive DDAVP for the oozing per nephrology. Patient also evaluated by Dr. ferrer due to chronic cholecystitis continue to monitor symptoms at this time plans for surgical intervention. Patient denies chest pain or shortness breath. Patient denies nausea vomiting or diarrhea. Patient denies any urinary burning or frequency Objective - Vital Signs Vital signs: Vital Signs Temp 98.8 F 10/15/19 08:00 Pulse 74 10/15/19 08:00 Resp 18 10/15/19 08:00 BP 103/55 10/15/19 08:00 Pulse Ox 97 10/15/19 08:00 Intake & Output 10/14/19 10/15/19 10/15/19 18:59 06:59 18:59 Intake Total 840 480 240 Output Total 3300 Balance -2460 480 240 Weight 83.4 kg Intake: Oral 840 480 240 Output: Urine 300 Hemodialysis 3000 Other: Voiding Method Toilet Toilet # Voids 300 1 # Bowel Movements 1 # Emeses 1 - Exam In general patient is alert and oriented 3 in no apparent distress HEENT head normocephalic and atraumatic. Hemodialysis port right upper chest wall Neck is supple no JVD no goiter Chest exam reveals a scattered crackles bilaterally no wheezing Cardiac exam reveals regular heart sounds no gallops no murmurs Abdomen is soft nontender no organomegaly Extremity exam reveals 2+ edema no cyanosis or clubbing Neurological examination reveals no gross focal deficits - Labs CBC & Chem 7: 10/15/19 06:08 10/15/19 06:08 Labs: Abnormal Lab Results - Last 24 Hours (Table) 10/14/19 10/14/19 10/15/19 Range/Units 17:00 20:54 06:08 RBC 2.85 L (3.80-5.40) m/uL Hgb 10.2 L (11.4-16.0) gm/dL Hct 32.5 L (34.0-46.0) % MCV 114.0 H (80.0-100.0) fL MCH 35.8 H (25.0-35.0) pg RDW 17.9 H (11.5-15.5) % Macrocytosis Marked A Sodium (137-145) mmol/L Carbon Dioxide (22-30) mmol/L BUN (7-17) mg/dL Creatinine (0.52-1.04) mg/dL POC Glucose (mg/dL) 124 H 177 H (75-99) mg/dL Alkaline Phosphatase (38-126) U/L Total Protein (6.3-8.2) g/dL Albumin (3.5-5.0) g/dL 10/15/19 Range/Units 06:08 RBC (3.80-5.40) m/uL Hgb (11.4-16.0) gm/dL Hct (34.0-46.0) % MCV (80.0-100.0) fL MCH (25.0-35.0) pg RDW (11.5-15.5) % Macrocytosis Sodium 135 L (137-145) mmol/L Carbon Dioxide 20 L (22-30) mmol/L BUN 26 H (7-17) mg/dL Creatinine 1.98 H (0.52-1.04) mg/dL POC Glucose (mg/dL) (75-99) mg/dL Alkaline Phosphatase 128 H (38-126) U/L Total Protein 6.1 L (6.3-8.2) g/dL Albumin 3.2 L (3.5-5.0) g/dL Assessment and Plan Assessment: #1 severe shortness of breath improved most likely related to fluid overload patient related to acute on chronic systolic CHF secondary to end-stage renal disease was started on IV Lasix and consultation for nephrology was initiated to assess if patient needs to be started on hemodialysis during this admission. Patient and family are still waiting to make final decision in regards to hemodialysis. Would like to discuss with Dr. Wellington prior to making decision. Per nephrology IV Lasix has been DC'd and patient switched to Demadex. Hemodialysis access achieved on 10/09/[address] Collado. Patient will be on Monday hemodialysis schedule #2 abnormal chest x-ray revealing evidence of hilar fullness, will continue to monitor and repeat chest x-ray once fluid overload has resolved #3 indeterminate VQ scan, doubt pulmonary embolism, bilateral lower extremity Doppler was ordered. Venous Doppler of lower extremities showing no active DVT in the lower extremity. Persistent long segment thrombus in the right lower x- ray has been present on prior studies. Doppler study completed of upper extremities are negative for DVT in either extremity #4 underlying history of chronic atrial fibrillation #5 underlying history of chronic kidney disease stage IV #6 underlying history of diabetes mellitus controlled #7 underlying history of hypertension #8 underlying history of anemia of chronic renal disease #9. Urinary tract infection. Patient started on Rocephin. Urine culture completed and negative. Antibiotics will be DC'd #10 nausea and vomiting. Diet increased. Symptoms resolved #11. Chronic cholecystitis with calculs. Patient was evaluated by surgical services. Recommending at this time resuming low-fat diet monitor symptoms no antibiotics needed #12. Increased bleeding at hemodialysis site. Eliquis currently on hold per cardiology. DDAVP was given per nephrology. We'll continue to monitor site remained stable DVT prophylaxis SCDs. GI prophylaxis Protonix Pulmonary cardiology and nephrology following I performed an examination of the patient and discussed their management with the Nurse Practitioner. I have reviewed the Nurse Practitioner's notes and agree with the documented findings and plan of care
--- NOTE | 2019-10-15 11:52 | P.PN ---
Subjective Progress Note Date: 10/15/19 This is an 84-year-old female with history of persistent atrial fibrillation, chronic kidney disease, systolic congestive heart failure, presented to the hospital with progressive dyspnea, she is being treated for congestive heart failure here. Patient also has aggressively worsening renal failure and is being seen by nephrology. The plan is for the patient to undergo dialysis catheter placement today and perhaps be initiated on dialysis at either this evening or tomorrow morning. This morning the patient was sitting up in the chair at bedside, overall feels well, continues to have significant bilateral peripheral edema. Blood pressure 106/60 heart rate in the 60s, 99% on room air. Sodium 139, potassium 3.3, BUN 85, creatinine 3.0. Blood cell count 6.7, hemoglobin 10.0, platelet count 164. Magnesium 2.8. 10/10/2019 Patient seen and examined this morning, she had her dialysis catheter placed last night, she has not yet undergone dialysis. She is complaining of some mild discomfort at the site of her catheter but otherwise she's doing well. Scheduled for dialysis today. She will need to be resumed on her Eliquis, discuss this with Dr. Collado. 10/14/2019 Patient seen and examined this morning, overall doing well. No more nausea or vomiting today. She is having some notable oozing from the site of her dialysis catheter. We will hold her Eliquis for [address] Collado has been requested to come and look at the site today. Blood pressure 114/50 with a hear t rate in the 60s, 100% on room air. White blood cell count 6.0, hemoglobin 9.6, platelet count 127. Sodium 135, potassium 4.5, BUN 44, creatinine 2.5. 10/15/2019 Patient seen and examined this morning, sitting up in the chair bedside. Feels significantly better overall today. Dr. Collado came in last evening, put a pressure dressing at her dialysis catheter site. Eliquis continues to be on hold, he will come in today and review the site, we will check with him on the timing of reinitiating anticoagulation. Objective - Vital Signs Vital signs: Vital Signs Temp 98.8 F 10/15/19 08:00 Pulse 84 10/15/19 11:47 Resp 18 10/15/19 11:47 BP 94/53 10/15/19 11:47 Pulse Ox 92 L 10/15/19 11:47 Intake & Output 10/14/19 10/15/19 10/15/19 18:59 06:59 18:59 Intake Total 840 480 240 Output Total 3300 Balance -2460 480 240 Weight 83.4 kg Intake: Oral 840 480 240 Output: Urine 300 Hemodialysis 3000 Other: Voiding Method Toilet Toilet Toilet # Voids 300 1 # Bowel Movements 1 # Emeses 1 - Exam PHYSICAL EXAMINATION: GENERAL: 84-year-old female in no acute distress at the time of my examination HEENT: Head is atraumatic, normocephalic. Pupils equal, round. Sclera anicteric. Conjunctiva are clear. Mucous membranes of the mouth are moist. Neck is supple. There is no elevated jugular venous pressure. No carotid bruit is heard. HEART EXAMINATION: Heart S1 and S2 irregularly irregular systolic murmur is heard at the apex, holosystolic murmur is heard. CHEST EXAMINATION: Lungs are clear to auscultation and precussion. No chest wall tenderness is noted on palpation or with deep breathing. Site of dialysis catheter, oozing noted ABDOMEN: Soft, nontender. Bowel sounds are heard. No organomegaly noted. EXTREMITIES:[ 2+ peripheral pulses with 2+ evidence of lower extremity pe ripheral edema NEUROLOGIC patient is awake, alert and oriented 3. . - Labs CBC & Chem 7: 10/15/19 06:08 10/15/19 06:08 Labs: Abnormal Lab Results - Last 24 Hours (Table) 10/14/19 10/14/19 10/15/19 Range/Units 17:00 20:54 06:08 RBC 2.85 L (3.80-5.40) m/uL Hgb 10.2 L (11.4-16.0) gm/dL Hct 32.5 L (34.0-46.0) % MCV 114.0 H (80.0-100.0) fL MCH 35.8 H (25.0-35.0) pg RDW 17.9 H (11.5-15.5) % Macrocytosis Marked A Sodium (137-145) mmol/L Carbon Dioxide (22-30) mmol/L BUN (7-17) mg/dL Creatinine (0.52-1.04) mg/dL POC Glucose (mg/dL) 124 H 177 H (75-99) mg/dL Alkaline Phosphatase (38-126) U/L Total Protein (6.3-8.2) g/dL Albumin (3.5-5.0) g/dL 10/15/19 Range/Units 06:08 RBC (3.80-5.40) m/uL Hgb (11.4-16.0) gm/dL Hct (34.0-46.0) % MCV (80.0-100.0) fL MCH (25.0-35.0) pg RDW (11.5-15.5) % Macrocytosis Sodium 135 L (137-145) mmol/L Carbon Dioxide 20 L (22-30) mmol/L BUN 26 H (7-17) mg/dL Creatinine 1.98 H (0.52-1.04) mg/dL POC Glucose (mg/dL) (75-99) mg/dL Alkaline Phosphatase 128 H (38-126) U/L Total Protein 6.1 L (6.3-8.2) g/dL Albumin 3.2 L (3.5-5.0) g/dL Assessment and Plan Plan: Assessment and plan #1 systolic congestive heart failure acute on chronic #2 history of mitral regurgitation #3 persistent atrial fibrillation #4 pulmonary hypertension #5 acute on chronic renal failure, currently on dialysis #6 history of DVT with prior [place] filter #7 diabetes #8 hypertension #9 hyperlipidemia Plan From cardiology's perspective, we will continue to hold the Eliquis, check with Dr. Collado regarding timing of reinitiation. Patient will have a follow-up appointment with Dr. May in the office post discharge. DNP note has been reviewed, I agree with a documented findings and plan of care. Patient was seen and examined.
[2019-10-15 11:54] LABS: Glucose,Whole Blood 116 mg/dL (75-99)
--- NOTE | 2019-10-15 12:46 | P.PN ---
<Noemi Feliciano - Last Filed: 10/15/19 12:44> Subjective Progress Note Date: 10/15/19 CHIEF COMPLAINT: Chronic cholecystitis HISTORY OF PRESENT ILLNESS: Patient examined at the bedside. Family present. Patient is currently eating lunch and tolerating well. She denies abdominal pain. Denies nausea or vomiting. PHYSICAL EXAM: VITAL SIGNS: Reviewed. GENERAL: Well-developed in no acute distress. HEENT: No sclera icterus. Extraocular movements grossly intact. Moist buccal mucosa. Head is atraumatic, normocephalic. ABDOMEN: Soft. Nondistended. Nontender. NEUROLOGIC: Alert and oriented. Cranial nerves II through XII grossly intact. ASSESSMENT: 1. Chronic cholecystitis 2. Cholelithiasis PLAN: -Continue diet as tolerated -No surgical intervention recommended Nurse practitioner note has been reviewed by physician. Signing provider agrees with the documented findings, assessment, and plan of care. Objective - Vital Signs Vital signs: Vital Signs Temp 98.8 F 10/15/19 08:00 Pulse 84 10/15/19 11:47 Resp 18 10/15/19 11:47 BP 94/53 10/15/19 11:47 Pulse Ox 92 L 10/15/19 11:47 Intake & Output 10/14/19 10/15/19 10/15/19 18:59 06:59 18:59 Intake Total 840 480 240 Output Total 3300 Balance -2460 480 240 Weight 83.4 kg Intake: Oral 840 480 240 Output: Urine 300 Hemodialysis 3000 Other: Voiding Method Toilet Toilet Toilet # Voids 300 1 # Bowel Movements 1 # Emeses 1 - Labs CBC & Chem 7: 10/15/19 06:08 10/15/19 06:08 Labs: Abnormal Lab Results - Last 24 Hours (Table) 10/14/19 10/14/19 10/15/19 Range/Units 17:00 20:54 06:08 RBC 2.85 L (3.80-5.40) m/uL Hgb 10.2 L (11.4-16.0) gm/dL Hct 32.5 L (34.0-46.0) % MCV 114.0 H (80.0-100.0) fL MCH 35.8 H (25.0-35.0) pg RDW 17.9 H (11.5-15.5) % Macrocytosis Marked A Sodium (137-145) mmol/L Carbon Dioxide (22-30) mmol/L BUN (7-17) mg/dL Creatinine (0.52-1.04) mg/dL POC Glucose (mg/dL) 124 H 177 H (75-99) mg/dL Alkaline Phosphatase (38-126) U/L Total Protein (6.3-8.2) g/dL Albumin (3.5-5.0) g/dL 10/15/19 10/15/19 Range/Units 06:08 11:52 RBC (3.80-5.40) m/uL Hgb (11.4-16.0) gm/dL Hct (34.0-46.0) % MCV (80.0-100.0) fL MCH (25.0-35.0) pg RDW (11.5-15.5) % Macrocytosis Sodium 135 L (137-145) mmol/L Carbon Dioxide 20 L (22-30) mmol/L BUN 26 H (7-17) mg/dL Creatinine 1.98 H (0.52-1.04) mg/dL POC Glucose (mg/dL) 116 H (75-99) mg/dL Alkaline Phosphatase 128 H (38-126) U/L Total Protein 6.1 L (6.3-8.2) g/dL Albumin 3.2 L (3.5-5.0) g/dL <Teodoro Vuong - Last Filed: 10/15/19 16:57> Subjective As above. Patient doing well. No abdominal pain or nausea or vomiting. Continue nonoperative management. We'll follow as needed. Objective - Vital Signs Vital signs: Vital Signs Temp 98.8 F 10/15/19 08:00 Pulse 84 10/15/19 14:25 Resp 18 10/15/19 14:25 BP 94/53 10/15/19 11:47 Pulse Ox 92 L 10/15/19 11:47 Intake & Output 10/14/19 10/15/19 10/15/19 18:59 06:59 18:59 Intake Total 840 480 360 Output Total 3300 Balance -2460 480 360 Weight 83.4 kg Intake: Oral 840 480 360 Output: Urine 300 Hemodialysis 3000 Other: Voiding Method Toilet Toilet Toilet # Voids 300 0 # Bowel Movements 1 # Emeses 1 - Labs CBC & Chem 7: 10/15/19 06:08 10/15/19 06:08 Labs: Abnormal Lab Results - Last 24 Hours (Table) 10/14/19 10/14/19 10/15/19 Range/Units 17:00 20:54 06:08 RBC 2.85 L (3.80-5.40) m/uL Hgb 10.2 L (11.4-16.0) gm/dL Hct 32.5 L (34.0-46.0) % MCV 114.0 H (80.0-100.0) fL MCH 35.8 H (25.0-35.0) pg RDW 17.9 H (11.5-15.5) % Macrocytosis Marked A Sodium (137-145) mmol/L Carbon Dioxide (22-30) mmol/L BUN (7-17) mg/dL Creatinine (0.52-1.04) mg/dL POC Glucose (mg/dL) 124 H 177 H (75-99) mg/dL Alkaline Phosphatase (38-126) U/L Total Protein (6.3-8.2) g/dL Albumin (3.5-5.0) g/dL 10/15/19 10/15/19 Range/Units 06:08 11:52 RBC (3.80-5.40) m/uL Hgb (11.4-16.0) gm/dL Hct (34.0-46.0) % MCV (80.0-100.0) fL MCH (25.0-35.0) pg RDW (11.5-15.5) % Macrocytosis Sodium 135 L (137-145) mmol/L Carbon Dioxide 20 L (22-30) mmol/L BUN 26 H (7-17) mg/dL Creatinine 1.98 H (0.52-1.04) mg/dL POC Glucose (mg/dL) 116 H (75-99) mg/dL Alkaline Phosphatase 128 H (38-126) U/L Total Protein 6.1 L (6.3-8.2) g/dL Albumin 3.2 L (3.5-5.0) g/dL Assessment and Plan (1) Chronic cholecystitis with calculus Current Visit: Yes Status: Acute Code(s): K80.10 - CALCULUS OF GALLBLADDER W CHRONIC CHOLECYST W/O OBSTRUCTION SNOMED Code(s): 65813719
--- NOTE | 2019-10-15 15:35 | PN ---
PROGRESS NOTE Patient is seen for followup for end-stage renal disease. She is sitting up in bed comfortable. The patient denies any significant complaints. She will be dialyzed tomorrow. PHYSICAL EXAMINATION: Blood pressure is running on the low side; this morning, blood pressure was 103/55, heart rate 74 per minute. The patient is afebrile. Examination of the heart S1, S2. Examination of the lungs, bilateral breath sounds are heard. Abdomen is soft, nontender. Examination lower extremities shows edema 2+ bilaterally. FIELD OPERATIONS MANAGER exam grossly intact. LABS: Labs show hemoglobin 10.2, sodium 135, potassium 4.7, chloride 103, BUN 26, creatinine 1.98. ASSESSMENT: 1. End-stage renal disease, currently on hemodialysis. 2. Gallstones with improving symptoms. The patient tolerated her oral intake fairly well today. No plans for surgical intervention. 3. Chronic kidney disease mineral bone disorder. 4. Volume overload, slowly improving. PLAN: The patient can be discharged from the nephrology standpoint with followup as an outpatient on hemodialysis. MMODL / IJN: [id number] /
[2019-10-15 17:08] LABS: Glucose,Whole Blood 113 mg/dL (75-99)
[2019-10-15] MEDS: LINAGLIPTIN 5 MG TABLET PO SCH (17:18)
[2019-10-15 20:51] LABS: Glucose,Whole Blood 123 mg/dL (75-99)
--- NOTE | 2019-10-15 22:07 | PN ---
PROGRESS NOTE DATE OF SERVICE: 10/15/2019 This patient has been hemodynamically stable. She is less short of breath and had undergone dialysis yesterday. She has less edema. On physical examination, her vitals are stable. She is afebrile. Chest is relatively clear. Cardiovascular system reveals an S1, S2. Abdomen is soft. There is 1+ pedal edema. IMPRESSION AT THIS TIME: 1. Congestive heart failure. 2. Acute on chronic renal failure. Continue supportive care, dialysis and her current medications, which I reviewed. Prognosis is fair. MMODL / IJN: [id number] /
[2019-10-16] MEDS: Acetaminophen-Codeine 300-30mg TAB PO SCH ×4 (05:52→22:31)
[2019-10-16] MEDS: METOPROLOL TARTRATE 25 MG TAB PO SCH ×3 (06:29→22:31)
[2019-10-16] MEDS: MIDODRINE 5 MG TAB PO SCH ×3 (06:29→22:32)
[2019-10-16] MEDS: DORZOLAMIDE HCL 2% DROPS 10 ML BTL BOTH EYES SCH ×2 (06:30→21:26)
[2019-10-16] MEDS: BRIMONIDINE TARTRATE 0.2% DROPS 5 ML BTL BOTH EYES SCH ×2 (06:30→21:26)
[2019-10-16 07:48] LABS: Glucose,Whole Blood 107 mg/dL (75-99)
[2019-10-16 07:57] LABS: Anisocytosis Slight; Basophils % (A) 0 %; Eosinophils # (A) 0.2 k/uL (0-0.7); Eosinophils % (A) 2 %; HCT 31.6 % (34.0-46.0); HGB 9.7 gm/dL (11.4-16.0); Hypochromasia Moderate; Lymphocytes # (A) 1.1 k/uL (1.0-4.8); Lymphocytes % (A) 14 %; MCHC 30.8 g/dL (31.0-37.0); MCV 116.7 fL (80.0-100.0); Macrocytosis Marked; Mean Platelet Volume 9.2; Monocytes # (A) 0.4 k/uL (0-1.0); Monocytes % (A) 5 %; Neutrophils # (A) 5.4 k/uL (1.3-7.7); Neutrophils % (A) 74 %; Platelet Count 139 k/uL (150-450); RDW 17.7 % (11.5-15.5); WBC 7.3 k/uL (3.8-10.6)
[2019-10-16 07:59] LABS: Albumin 3.3 g/dL (3.5-5.0); Potassium 4.1 mmol/L (3.5-5.1); Total Bilirubin 0.6 mg/dL (0.2-1.3); Total Protein 6.2 g/dL (6.3-8.2)
[2019-10-16] MEDS: INSULIN ASPART (NovoLOG) 100 UNIT/ML VIAL SQ SCH ×4 (08:03→21:25)
--- NOTE | 2019-10-16 10:39 | P.PN ---
Subjective Progress Note Date: 10/16/19 Trina Carrillo, he is an 84-year-old female who was recently discharged from [facility], who presented to emergency room was a chief complaint of worsening shortness of breath, sharp pain in the chest, and significant swelling in the bilateral lower extremity, she was evaluated in emergency room and was admitted to telemetry floor for further evaluation and treatment BNP was elevated at 15,800 patient has known history of chronic renal failure with elevated BUN and creatinine she was evaluated by nephrology last admission and decision was made to start hemodialysis soon however patient condition deteriorated fast and patient and her family decided to return to emergency room. Due to shortness of breath patient had a VQ scan done in the emergency room, there was no clear evidence of any pulmonary embolism, there was matching ventilation and perfusion defects and the scan was read as intermediate probability for pulmonary embolus. Consultation for cardiology, pulmonary, nephrology were initiated in the emergency room. Patient was seen and examined on the telemetry floor, she is alert and oriented 3 in no apparent distress, at this time her chest pain has resolved and her shortness of breath has improved, she is still having significant bilateral lower extremity edema, otherwise she denies any complaints there is no fever or chills no headache or dizziness no chest pain, no cough no nausea or vomiting no abdominal pain no diarrhea no burning with urination no frequency or urgency no hematuria. On 10/07/2019 patient is alert and oriented 3. Patient does reports improvement with edema and shortness of breath. Patient remains on Lasix 40 every 8 hours. Patient still having some mild chest discomfort. Cardiology nephrology and pulmonary services are following. Venous Doppler was negative for DVTs. Urine culture has been ordered. On 10/08/2019 patient is alert and oriented 3. Family at bedside. Patient remains on IV Lasix. Plans for possible inpatient hemodialysis per nephrology recommendation. Family requesting to speak to Dr. Wellington in regards to VQ scan results before proceeding with hemodialysis. IV Lasix will be DC'd per nephrology and Demadex 20 mg daily ordered. Patient reports improvement with shortness of breath and chest pain. Per cardiology services anticoagulation has been switched from xarelto to eliquis. On 10/09/2019 patient is alert and oriented 3. Daughter at bedside. Patient has been started on Demadex IV Lasix DC'd plans for hemodialysis catheter access today per Dr. Collado anticoagulation currently on hold. Patient denies chest pain or shortness of breath. Patient denies nausea vomiting or diarrhea. Patie nt denies any urinary burning or frequency On 10/10/2019 patient is alert and oriented 3. Patient underwent hemodialysis catheter placement on 10/09/[address] Collado. Plans for hemodialysis today and for the next 3 days per nephrology. At this time patient is tired resting in bed. Patient denies any chest pain does report some discomfort around hemodialysis site. Patient denies any urinary burning or frequency On 10/11/2019 patient alert and oriented 3. Patient under went first chronic hemodialysis yesterday 1 L off. Plan for patient to get hemodialysis today and tomorrow with close monitoring of blood pressure and patient. Patient is alert and oriented. Patient denies chest pain. Patient denies shortness breath. Patient denies nausea vomiting or diarrhea. Patient denies any urinary burning or frequency On 10/12/2019 patient was seen and examined on the medical floor she is alert and oriented 3 in no apparent distress she accidentally pulled her dialysis catheter partially at night there is some bleeding around the catheter site otherwise she denies any complaints there is no fever or chills no headache or dizziness no chest pain no shortness of breath no cough no nausea or vomiting no abdominal pain no diarrhea and no urinary symptoms. On 10/13/2019 patient was seen and examined on the medical floor she is complaining of nausea and vomiting and feeling tired otherwise she denies any complaints, there is no fever or chills no headache or dizziness no chest pain no shortness of breath no cough no abdominal pain no diarrhea no burning with urination no frequency or urgency and no hematuria On 10/14/2019 patient is alert and oriented 3. Patient is currently getting hemodialysis. Patient still having oozing from hemodialysis site. She is maintained on eliquis, dosage has been decreased per cardiology. Nausea and vomiting have improved. Patient denies chest pain or shortness of breath. Patient denies any urinary burning or frequency On 10/15/2019 patient is alert and oriented 3. Patient currently sitting up in chair. Patient having some oozing at hemodialysis site. Patient was dilated by Dr. Collado. Patient states coagulation currently on hold did receive DDAVP for the oozing per nephrology. Patient also evaluated by Dr. ferrer due to chronic cholecystitis continue to monitor symptoms at this time plans for surgical intervention. Patient denies chest pain or shortness breath. Patient denies nausea vomiting or diarrhea. Patient denies any urinary burning or frequency On 10/16/2019 patient's alert and oriented 3. Patient currently getting hemodialysis. Pressure dressing remains on hemodialysis site awaiting for Dr. Collado input. Patient will hopefully be restarted back on anticoagulation in the next 24-48 hours only to monitor site for bleeding. At this time patient denies chest pain or shortness of breath. Patient denies nausea vomiting or diarrhea. Patient denies any urinary burning or frequency Objective - Vital Signs Vital signs: Vital Signs Temp 97.2 F L 10/16/19 08:00 Pulse 78 10/16/19 08:00 Resp 16 10/16/19 08:00 BP 95/66 10/16/19 08:00 Pulse Ox 97 10/16/19 08:00 Intake & Output 10/15/19 10/16/19 10/16/19 18:59 06:59 18:59 Intake Total 600 300 Balance 600 300 Weight 84.7 kg Intake: Oral 600 300 Other: Voiding Method Toilet Toilet Toilet # Voids 0 - Exam In general patient is alert and oriented 3 in no apparent distress HEENT head normocephalic and atraumatic. Hemodialysis port right upper chest wall Neck is supple no JVD no goiter Chest exam reveals a scattered crackles bilaterally no wheezing Cardiac exam reveals regular heart sounds no gallops no murmurs Abdomen is soft nontender no organomegaly Extremity exam reveals 2+ edema no cyanosis or clubbing Neurological examination reveals no gross focal deficits - Labs CBC & Chem 7: 10/16/19 07:00 10/16/19 07:00 Labs: Abnormal Lab Results - Last 24 Hours (Table) 10/15/19 10/15/19 10/15/19 Range/Units 11:52 16:58 20:49 RBC (3.80-5.40) m/uL Hgb (11.4-16.0) gm/dL Hct (34.0-46.0) % MCV (80.0-100.0) fL MCH (25.0-35.0) pg MCHC (31.0-37.0) g/dL RDW (11.5-15.5) % Macrocytosis Sodium (137-145) mmol/L BUN (7-17) mg/dL Creatinine (0.52-1.04) mg/dL Glucose (74-99) mg/dL POC Glucose (mg/dL) 116 H 113 H 123 H (75-99) mg/dL Alkaline Phosphatase (38-126) U/L Total Protein (6.3-8.2) g/dL Albumin (3.5-5.0) g/dL 10/16/19 10/16/19 10/16/19 Range/Units 07:00 07:00 07:46 RBC 2.70 L (3.80-5.40) m/uL Hgb 9.7 L (11.4-16.0) gm/dL Hct 31.6 L (34.0-46.0) % MCV 116.7 H (80.0-100.0) fL MCH 36.0 H (25.0-35.0) pg MCHC 30.8 L (31.0-37.0) g/dL RDW 17.7 H (11.5-15.5) % Macrocytosis Marked A Sodium 135 L (137-145) mmol/L BUN 34 H (7-17) mg/dL Creatinine 2.73 H (0.52-1.04) mg/dL Glucose 100 H (74-99) mg/dL POC Glucose (mg/dL) 107 H (75-99) mg/dL Alkaline Phosphatase 128 H (38-126) U/L Total Protein 6.2 L (6.3-8.2) g/dL Albumin 3.3 L (3.5-5.0) g/dL Assessment and Plan Assessment: #1 severe shortness of breath improved most likely related to fluid overload patient related to acute on chronic systolic CHF secondary to end-stage renal disease was started on IV Lasix and consultation for nephrology was initiated to assess if patient needs to be started on hemodialysis during this admission. Patient and family are still waiting to make final decision in regards to hemodialysis. Would like to discuss with Dr. Wellington prior to making decision. Per nephrology IV Lasix has been DC'd and patient switched to Demadex. Hemodialysis access achieved on 10/09/[address] Collado. Patient will be on Monday hemodialysis schedule #2 abnormal chest x-ray revealing evidence of hilar fullness, will continue to monitor and repeat chest x-ray once fluid overload has resolved #3 indeterminate VQ scan, doubt pulmonary embolism, bilateral lower extremity Doppler was ordered. Venous Doppler of lower extremities showing no active DVT in the lower extremity. Persistent long segment thrombus in the right lower x- ray has been present on prior studies. Doppler study completed of upper extremities are negative for DVT in either extremity #4 underlying history of chronic atrial fibrillation #5 underlying history of chronic kidney disease stage IV #6 underlying history of diabetes mellitus controlled #7 underlying history of hypertension #8 underlying history of anemia of chronic renal disease #9. Urinary tract infection. Patient started on Rocephin. Urine culture completed and negative. Antibiotics will be DC'd #10 nausea and vomiting. Diet increased. Symptoms resolved #11. Chronic cholecystitis with calculs. Patient was evaluated by surgical services. Recommending at this time resuming low-fat diet monitor symptoms no antibiotics needed #12. Increased bleeding at hemodialysis site. Eliquis currently on hold per cardiology. DDAVP was given per nephrology. We'll continue to monitor site. DVT prophylaxis SCDs. GI prophylaxis Protonix Pulmonary cardiology and nephrology following I performed an examination of the patient and discussed their management with the Nurse Practitioner. I have reviewed the Nurse Practitioner's notes and agree with the documented findings and plan of care
[2019-10-16 11:44] LABS: Glucose,Whole Blood 125 mg/dL (75-99)
[2019-10-16 11:45] LABS: Target Cells Present
--- NOTE | 2019-10-16 12:42 | P.PN ---
Subjective This is a pleasant 84 showed female with known history of chronic persistent atrial fibrillation on long-term anticoagulation, progressive renal failure on hemodialysis, cardiomyopathy, valvular heart disease and chronic heart failure. She is seen and examined sitting up in bed undergoing dialysis treatment. She denies symptoms of chest pain, shortness of breath, dizziness or palpitations. Pressure dressing in place to the right anterior wall permacath. Blood pressure 95/66 heart rate 78 afebrile and maintaining oxygen saturation on room air. Laboratory data reviewed, WBC 7.3, hgb 9.7, plt 139, sodium 135, potassium 4.1, creatinine 2.73. Currently maintained on torsemide 20 mg daily, midodrine 5 mg 3 times a day, Lopressor 50 mg twice a day and 25 mg in the afternoon. Eliquis remains on hold. GENERAL: Well-appearing, well-nourished and in no acute distress. NECK: Supple without JVD or thyromegaly. LUNGS: Breath sounds clear to auscultation bilaterally. Respiration equal and unlabored. No wheezes, rales or rhonchi. HEART: Irregular rate and rhythm with murmur at the apex, no rubs or gallops. S1 and S2 heard. EXTREMITIES: Normal range of motion, bilateral lower extremity edema. No clubbing or cyanosis. Peripheral pulses intact. ASSESSMENT Acute on chronic systolic and diastolic heart failure, improved Fluid overload from renal failure Nausea vomiting and abdominal discomfort patient scheduled to undergo abdominal ultrasound. Has chronic cholecystitis and gallstones. Been evaluated by Dr. Cintron the past. End-stage renal disease on hemodialysis Chronic persistent atrial fibrillation on long-term anticoagulation Hypertension Valvular heart disease Cardiomyopathy, nonischemic. PLAN Continue current medical regimen and resume eliquis per Dr. Collado when appropriate. Nurse Practitioner note has been reviewed, I agree with a documented findings and plan of care. Patient was seen and examined. Objective - Vital Signs Vital signs: Vital Signs Temp 97.2 F L 10/16/19 08:00 Pulse 78 10/16/19 08:00 Resp 16 10/16/19 08:00 BP 95/66 10/16/19 08:00 Pulse Ox 97 10/16/19 08:00 Intake & Output 10/15/19 10/16/19 10/16/19 18:59 06:59 18:59 Intake Total 600 300 Balance 600 300 Weight 84.7 kg Intake: Oral 600 300 Other: Voiding Method Toilet Toilet Toilet # Voids 0 - Labs CBC & Chem 7: 10/16/19 07:00 10/16/19 07:00 Labs: Abnormal Lab Results - Last 24 Hours (Table) 10/15/19 10/15/19 10/16/19 Range/Units 16:58 20:49 07:00 RBC 2.70 L (3.80-5.40) m/uL Hgb 9.7 L (11.4-16.0) gm/dL Hct 31.6 L (34.0-46.0) % MCV 116.7 H (80.0-100.0) fL MCH 36.0 H (25.0-35.0) pg MCHC 30.8 L (31.0-37.0) g/dL RDW 17.7 H (11.5-15.5) % Plt Count 139 L (150-450) k/uL Macrocytosis Marked A Sodium (137-145) mmol/L BUN (7-17) mg/dL Creatinine (0.52-1.04) mg/dL Glucose (74-99) mg/dL POC Glucose (mg/dL) 113 H 123 H (75-99) mg/dL Alkaline Phosphatase (38-126) U/L Total Protein (6.3-8.2) g/dL Albumin (3.5-5.0) g/dL 10/16/19 10/16/19 10/16/19 Range/Units 07:00 07:46 11:42 RBC (3.80-5.40) m/uL Hgb (11.4-16.0) gm/dL Hct (34.0-46.0) % MCV (80.0-100.0) fL MCH (25.0-35.0) pg MCHC (31.0-37.0) g/dL RDW (11.5-15.5) % Plt Count (150-450) k/uL Macrocytosis Sodium 135 L (137-145) mmol/L BUN 34 H (7-17) mg/dL Creatinine 2.73 H (0.52-1.04) mg/dL Glucose 100 H (74-99) mg/dL POC Glucose (mg/dL) 107 H 125 H (75-99) mg/dL Alkaline Phosphatase 128 H (38-126) U/L Total Protein 6.2 L (6.3-8.2) g/dL Albumin 3.3 L (3.5-5.0) g/dL
[2019-10-16] MEDS: CHOLECALCIFEROL 1,000 UNIT TAB PO SCH (12:49)
[2019-10-16] MEDS: CALCIUM ACETATE 667 MG TAB PO SCH ×3 (12:49→17:40)
[2019-10-16] MEDS: DOCUSATE 100 MG CAP PO SCH ×2 (12:49→21:25)
[2019-10-16] MEDS: VIT A,C & E-LUTEIN-MINERALS 1 EACH TAB PO SCH ×2 (12:49→21:25)
[2019-10-16] MEDS: PANTOPRAZOLE 40 MG TABLET PO SCH (12:50)
[2019-10-16] MEDS: ALLOPURINOL 100 MG TAB PO SCH (12:50)
[2019-10-16] MEDS: FERROUS SULFATE 325 MG TAB PO SCH (12:50)
[2019-10-16] MEDS: TORSEMIDE 20 MG TAB PO SCH (15:01)
[2019-10-16] MEDS: LINAGLIPTIN 5 MG TABLET PO SCH (15:19)
--- NOTE | 2019-10-16 15:52 | PN ---
PROGRESS NOTE Patient is seen for followup for end-stage renal disease. She is currently seen on hemodialysis, tolerating her treatment well. The pressure dressing has been taken off and there is no bleeding noted. PHYSICAL EXAMINATION: On examination, blood pressure was 95/66, heart rate 78 per minute, patient is afebrile. Examination of the heart S1, S2. Examination of lungs, bilateral breath sounds are heard. Abdomen is soft, nontender. Examination of lower extremities shows edema 2+ bilaterally. [employer] exam grossly intact. LABS: Show sodium 135, potassium 4.1, BUN 34, creatinine 2.7, hemoglobin 9.7 g/dL. ASSESSMENT: 1. End-stage renal disease, on hemodialysis on a Monday, Monday, Monday schedule. 2. Bleeding from PermCath, currently stable. Will be restarted on anticoagulation. 3. Volume overload, currently improved. 4. Gallstones with improvement in symptoms. The patient is tolerating oral intake as well. PLAN: Maintain Monday, Monday, Monday schedule for dialysis. MMODL / IJN: [id number] /
[2019-10-16 17:13] LABS: Glucose,Whole Blood 123 mg/dL (75-99)
--- NOTE | 2019-10-16 17:22 | PN ---
PROGRESS NOTE DATE OF SERVICE: 10/16/2019 This patient is feeling better overall. She is less short of breath. She does not have any bleeding at her dialysis catheter site. She was dialyzed today and tolerated it well. On physical examination her vitals are stable. She is afebrile. Her chest reveals decreased breath sounds on the bases. Cardiovascular system reveals an S1, S2. Abdomen is soft. There is 2+ pedal edema. White count is 7.3, hemoglobin of 9.7, platelet count of 139. IMPRESSION AT THIS TIME: 1. Congestive heart failure. 2. Chronic renal failure. 3. Pleural effusions. Continue to keep her in negative fluid balance with dialysis. Increase her activity level slowly. From a pulmonary perspective, she is doing fair. MMODL / IJN: [id number] /
[2019-10-16] MEDS: RIVAROXABAN 10 MG TAB PO SCH (17:39)
[2019-10-16 20:44] LABS: Glucose,Whole Blood 158 mg/dL (75-99)
[2019-10-17] MEDS: Acetaminophen-Codeine 300-30mg TAB PO SCH ×4 (04:50→22:31)
[2019-10-17 07:17] LABS: Glucose,Whole Blood 127 mg/dL (75-99)
[2019-10-17] MEDS: INSULIN ASPART (NovoLOG) 100 UNIT/ML VIAL SQ SCH ×4 (07:26→20:49)
[2019-10-17] MEDS: ONDANSETRON 4 MG/2 ML VIAL IVP PRN ×2 (08:04→14:16)
[2019-10-17 09:38] LABS: Albumin 3.6 g/dL (3.5-5.0); Total Bilirubin 0.7 mg/dL (0.2-1.3); Total Protein 6.6 g/dL (6.3-8.2)
[2019-10-17] MEDS: DORZOLAMIDE HCL 2% DROPS 10 ML BTL BOTH EYES SCH (09:47)
[2019-10-17] MEDS: BRIMONIDINE TARTRATE 0.2% DROPS 5 ML BTL BOTH EYES SCH ×2 (09:48→20:57)
[2019-10-17] MEDS: ALLOPURINOL 100 MG TAB PO SCH (09:55)
[2019-10-17] MEDS: METOPROLOL TARTRATE 25 MG TAB PO SCH ×3 (09:55→22:31)
[2019-10-17] MEDS: CALCIUM ACETATE 667 MG TAB PO SCH ×3 (09:55→17:37)
[2019-10-17] MEDS: MIDODRINE 5 MG TAB PO SCH ×3 (09:55→22:31)
[2019-10-17] MEDS: DOCUSATE 100 MG CAP PO SCH ×2 (09:56→20:57)
[2019-10-17] MEDS: FERROUS SULFATE 325 MG TAB PO SCH (09:56)
[2019-10-17] MEDS: CALCITRIOL 0.25 MCG CAP PO SCH (09:56)
[2019-10-17] MEDS: PANTOPRAZOLE 40 MG TABLET PO SCH (09:56)
[2019-10-17] MEDS: CHOLECALCIFEROL 1,000 UNIT TAB PO SCH (09:56)
[2019-10-17] MEDS: TORSEMIDE 20 MG TAB PO SCH (09:57)
[2019-10-17] MEDS: VIT A,C & E-LUTEIN-MINERALS 1 EACH TAB PO SCH ×2 (09:57→20:57)
[2019-10-17 10:00] LABS: Anisocytosis Slight; Basophils % (A) 0 %; Eosinophils # (A) 0.1 k/uL (0-0.7); Eosinophils % (A) 1 %; HCT 33.5 % (34.0-46.0); HGB 10.3 gm/dL (11.4-16.0); Hypochromasia Moderate; Lymphocytes # (A) 1.1 k/uL (1.0-4.8); Lymphocytes % (A) 11 %; MCH 35.9 pg (25.0-35.0); MCHC 30.9 g/dL (31.0-37.0); MCV 116.3 fL (80.0-100.0); Macrocytosis Marked; Mean Platelet Volume 9.6; Monocytes # (A) 0.5 k/uL (0-1.0); Monocytes % (A) 6 %; Neutrophils # (A) 7.7 k/uL (1.3-7.7); Neutrophils % (A) 79 %; Platelet Count 178 k/uL (150-450); RBC 2.88 m/uL (3.80-5.40); RDW 17.9 % (11.5-15.5); WBC 9.8 k/uL (3.8-10.6)
--- NOTE | 2019-10-17 10:39 | P.PN ---
Subjective Progress Note Date: 10/17/19 Trina Carrillo, he is an 84-year-old female who was recently discharged from [facility], who presented to emergency room was a chief complaint of worsening shortness of breath, sharp pain in the chest, and significant swelling in the bilateral lower extremity, she was evaluated in emergency room and was admitted to telemetry floor for further evaluation and treatment BNP was elevated at 15,800 patient has known history of chronic renal failure with elevated BUN and creatinine she was evaluated by nephrology last admission and decision was made to start hemodialysis soon however patient condition deteriorated fast and patient and her family decided to return to emergency room. Due to shortness of breath patient had a VQ scan done in the emergency room, there was no clear evidence of any pulmonary embolism, there was matching ventilation and perfusion defects and the scan was read as intermediate probability for pulmonary embolus. Consultation for cardiology, pulmonary, nephrology were initiated in the emergency room. Patient was seen and examined on the telemetry floor, she is alert and oriented 3 in no apparent distress, at this time her chest pain has resolved and her shortness of breath has improved, she is still having significant bilateral lower extremity edema, otherwise she denies any complaints there is no fever or chills no headache or dizziness no chest pain, no cough no nausea or vomiting no abdominal pain no diarrhea no burning with urination no frequency or urgency no hematuria. On 10/07/2019 patient is alert and oriented 3. Patient does reports improvement with edema and shortness of breath. Patient remains on Lasix 40 every 8 hours. Patient still having some mild chest discomfort. Cardiology nephrology and pulmonary services are following. Venous Doppler was negative for DVTs. Urine culture has been ordered. On 10/08/2019 patient is alert and oriented 3. Family at bedside. Patient remains on IV Lasix. Plans for possible inpatient hemodialysis per nephrology recommendation. Family requesting to speak to Dr. Wellington in regards to VQ scan results before proceeding with hemodialysis. IV Lasix will be DC'd per nephrology and Demadex 20 mg daily ordered. Patient reports improvement with shortness of breath and chest pain. Per cardiology services anticoagulation has been switched from xarelto to eliquis. On 10/09/2019 patient is alert and oriented 3. Daughter at bedside. Patient has been started on Demadex IV Lasix DC'd plans for hemodialysis catheter access today per Dr. Collado anticoagulation currently on hold. Patient denies chest pain or shortness of breath. Patient denies nausea vomiting or diarrhea. Patie nt denies any urinary burning or frequency On 10/10/2019 patient is alert and oriented 3. Patient underwent hemodialysis catheter placement on 10/09/[address] Collado. Plans for hemodialysis today and for the next 3 days per nephrology. At this time patient is tired resting in bed. Patient denies any chest pain does report some discomfort around hemodialysis site. Patient denies any urinary burning or frequency On 10/11/2019 patient alert and oriented 3. Patient under went first chronic hemodialysis yesterday 1 L off. Plan for patient to get hemodialysis today and tomorrow with close monitoring of blood pressure and patient. Patient is alert and oriented. Patient denies chest pain. Patient denies shortness breath. Patient denies nausea vomiting or diarrhea. Patient denies any urinary burning or frequency On 10/12/2019 patient was seen and examined on the medical floor she is alert and oriented 3 in no apparent distress she accidentally pulled her dialysis catheter partially at night there is some bleeding around the catheter site otherwise she denies any complaints there is no fever or chills no headache or dizziness no chest pain no shortness of breath no cough no nausea or vomiting no abdominal pain no diarrhea and no urinary symptoms. On 10/13/2019 patient was seen and examined on the medical floor she is complaining of nausea and vomiting and feeling tired otherwise she denies any complaints, there is no fever or chills no headache or dizziness no chest pain no shortness of breath no cough no abdominal pain no diarrhea no burning with urination no frequency or urgency and no hematuria On 10/14/2019 patient is alert and oriented 3. Patient is currently getting hemodialysis. Patient still having oozing from hemodialysis site. She is maintained on eliquis, dosage has been decreased per cardiology. Nausea and vomiting have improved. Patient denies chest pain or shortness of breath. Patient denies any urinary burning or frequency On 10/15/2019 patient is alert and oriented 3. Patient currently sitting up in chair. Patient having some oozing at hemodialysis site. Patient was dilated by Dr. Collado. Patient states coagulation currently on hold did receive DDAVP for the oozing per nephrology. Patient also evaluated by Dr. ferrer due to chronic cholecystitis continue to monitor symptoms at this time plans for surgical intervention. Patient denies chest pain or shortness breath. Patient denies nausea vomiting or diarrhea. Patient denies any urinary burning or frequency On 10/16/2019 patient's alert and oriented 3. Patient currently getting hemodialysis. Pressure dressing remains on hemodialysis site awaiting for Dr. Collado input. Patient will hopefully be restarted back on anticoagulation in the next 24-48 hours only to monitor site for bleeding. At this time patient denies chest pain or shortness of breath. Patient denies nausea vomiting or diarrhea. Patient denies any urinary burning or frequency On 10/17/2019 patient's alert and oriented 3. Patient having episode of nausea post dinner last evening. Patient also having increased abdominal discomfort and distention today. Did discuss case with surgical nurse practitioner. Case was discussed with Dr. Vuong. Plans for HIDA scan and abdominal x-ray. Patient was also started back on Xarelto. Hemodialysis site showing no signs of bleeding. We'll continue to monitor. Objective - Vital Signs Vital signs: Vital Signs Temp 98.0 F 10/17/19 07:00 Pulse 82 10/17/19 07:00 Resp 16 10/17/19 07:20 BP 106/66 10/17/19 07:00 Pulse Ox 98 10/17/19 07:00 Intake & Output 10/16/19 10/17/19 10/17/19 18:59 06:59 18:59 Intake Total 480 Output Total 1600 Balance -1120 Weight 84.3 kg Intake: Oral 480 Output: Hemodialysis 1600 Other: Voiding Method Toilet Toilet Toilet # Voids 1 1 - Exam In general patient is alert and oriented 3 in no apparent distress HEENT head normocephalic and atraumatic. Hemodialysis port right upper chest wall Neck is supple no JVD no goiter Chest exam reveals a scattered crackles bilaterally no wheezing Cardiac exam reveals regular heart sounds no gallops no murmurs Abdomen is soft nontender no organomegaly Extremity exam reveals 2+ edema no cyanosis or clubbing Neurological examination reveals no gross focal deficits - Labs CBC & Chem 7: 10/17/19 08:44 10/17/19 08:44 Labs: Abnormal Lab Results - Last 24 Hours (Table) 10/16/19 10/16/19 10/16/19 Range/Units 07:00 11:42 17:12 RBC 2.70 L (3.80-5.40) m/uL Hgb 9.7 L (11.4-16.0) gm/dL Hct 31.6 L (34.0-46.0) % MCV 116.7 H (80.0-100.0) fL MCH 36.0 H (25.0-35.0) pg MCHC 30.8 L (31.0-37.0) g/dL RDW 17.7 H (11.5-15.5) % Plt Count 139 L (150-450) k/uL Macrocytosis Marked A BUN (7-17) mg/dL Creatinine (0.52-1.04) mg/dL Glucose (74-99) mg/dL POC Glucose (mg/dL) 125 H 123 H (75-99) mg/dL Alkaline Phosphatase (38-126) U/L 10/16/19 10/17/19 10/17/19 Range/Units 20:42 07:15 08:44 RBC 2.88 L (3.80-5.40) m/uL Hgb 10.3 L (11.4-16.0) gm/dL Hct 33.5 L (34.0-46.0) % MCV 116.3 H (80.0-100.0) fL MCH 35.9 H (25.0-35.0) pg MCHC 30.9 L (31.0-37.0) g/dL RDW 17.9 H (11.5-15.5) % Plt Count (150-450) k/uL Macrocytosis Marked A BUN (7-17) mg/dL Creatinine (0.52-1.04) mg/dL Glucose (74-99) mg/dL POC Glucose (mg/dL) 158 H 127 H (75-99) mg/dL Alkaline Phosphatase (38-126) U/L 10/17/19 Range/Units 08:44 RBC (3.80-5.40) m/uL Hgb (11.4-16.0) gm/dL Hct (34.0-46.0) % MCV (80.0-100.0) fL MCH (25.0-35.0) pg MCHC (31.0-37.0) g/dL RDW (11.5-15.5) % Plt Count (150-450) k/uL Macrocytosis BUN 26 H (7-17) mg/dL Creatinine 2.37 H (0.52-1.04) mg/dL Glucose 126 H (74-99) mg/dL POC Glucose (mg/dL) (75-99) mg/dL Alkaline Phosphatase 138 H (38-126) U/L Assessment and Plan Assessment: #1 severe shortness of breath improved most likely related to fluid overload patient related to acute on chronic systolic CHF secondary to end-stage renal disease was started on IV Lasix and consultation for nephrology was initiated to assess if patient needs to be started on hemodialysis during this admission. Patient and family are still waiting to make final decision in regards to hemodialysis. Would like to discuss with Dr. Wellington prior to making decision. Per nephrology IV Lasix has been DC'd and patient switched to Demadex. Hemodialysis access achieved on 10/09/[address] Collado. Patient will be on Monday hemodialysis schedule #2 abnormal chest x-ray revealing evidence of hilar fullness, will continue to monitor and repeat chest x-ray once fluid overload has resolved #3 indeterminate VQ scan, doubt pulmonary embolism, bilateral lower extremity Doppler was ordered. Venous Doppler of lower extremities showing no active DVT in the lower extremity. Persistent long segment thrombus in the right lower x- ray has been present on prior studies. Doppler study completed of upper extremities are negative for DVT in either extremity #4 underlying history of chronic atrial fibrillation #5 underlying history of chronic kidney disease stage IV #6 underlying history of diabetes mellitus controlled #7 underlying history of hypertension #8 underlying history of anemia of chronic renal disease #9. Urinary tract infection. Patient started on Rocephin. Urine culture completed and negative. Antibiotics will be DC'd #10 nausea and vomiting. Diet increased. Symptoms reappearing on 10/17/2019. Discussed case with surgical nurse practitioner plans for HIDA scan and abd ominal ultrasound #11. Chronic cholecystitis with calculs. Patient was evaluated by surgical services. Recommending at this time resuming low-fat diet monitor symptoms no antibiotics needed #12. Increased bleeding at hemodialysis site. Eliquis currently on hold per cardiology. DDAVP was given per nephrology. We'll continue to monitor site. Patient has been started on anticoagulation Xarelto no signs of bleeding at hemodialysis site DVT prophylaxis SCDs. GI prophylaxis Protonix Pulmonary cardiology and nephrology following Increased abdominal discomfort and nausea. Surgical services reconsulted I performed an examination of the patient and discussed their management with the Nurse Practitioner. I have reviewed the Nurse Practitioner's notes and agree with the documented findings and plan of care
[2019-10-17 11:16] LABS: Target Cells Present
[2019-10-17 11:17] LABS: Poikilocytosis (M) Present; Polychromasia Present
--- NOTE | 2019-10-17 11:27 | P.PN ---
Subjective Progress Note Date: 10/17/19 CHIEF COMPLAINT: Chronic cholecystitis HISTORY OF PRESENT ILLNESS: Patient was last seen by surgical services on 10/15/2019. Patient was doing well at that time. We were asked to reevaluate patient this morning by internal medicine secondary to abdominal pain and nausea and vomiting. Patient examined this morning at the bedside. Daughter is present. Patient reports she began having nausea this morning. She reports having a few episodes of emesis. She reports abdominal pain. She denies abdominal pain. She reports having daily bowel movements. Her last bowel movement was yesterday and her daughter describes it as a soft small bowel movement. Patient's daughter also reports that she had a small amount of blood from her rectum this morning when she used the bathroom. PHYSICAL EXAM: VITAL SIGNS: Reviewed. GENERAL: Well-developed in no acute distress. HEENT: No sclera icterus. Extraocular movements grossly intact. Moist buccal mucosa. Head is atraumatic, normocephalic. ABDOMEN: Slightly firm. Distended. Nontender. NEUROLOGIC: Alert and oriented. Cranial nerves II through XII grossly intact. ASSESSMENT: 1. Chronic cholecystitis 2. Cholelithiasis 3. Nausea and vomiting PLAN: Downgrade diet to NPO except ice chips 2V Abdomen xray HIDA scan without EF Further recommendations pending Nurse practitioner note has been reviewed by physician. Signing provider agrees with the documented findings, assessment, and plan of care. Objective - Vital Signs Vital signs: Vital Signs Temp 98.0 F 10/17/19 07:00 Pulse 82 10/17/19 07:00 Resp 16 10/17/19 07:20 BP 106/66 10/17/19 07:00 Pulse Ox 98 10/17/19 07:00 Intake & Output 10/16/19 10/17/19 10/17/19 18:59 06:59 18:59 Intake Total 480 Output Total 1600 Balance -1120 Weight 84.3 kg Intake: Oral 480 Output: Hemodialysis 1600 Other: Voiding Method Toilet Toilet Toilet # Voids 1 1 - Labs CBC & Chem 7: 10/17/19 08:44 10/17/19 08:44 Labs: Abnormal Lab Results - Last 24 Hours (Table) 10/16/19 10/16/19 10/16/19 Range/Units 07:00 11:42 17:12 RBC 2.70 L (3.80-5.40) m/uL Hgb 9.7 L (11.4-16.0) gm/dL Hct 31.6 L (34.0-46.0) % MCV 116.7 H (80.0-100.0) fL MCH 36.0 H (25.0-35.0) pg MCHC 30.8 L (31.0-37.0) g/dL RDW 17.7 H (11.5-15.5) % Plt Count 139 L (150-450) k/uL Macrocytosis Marked A BUN (7-17) mg/dL Creatinine (0.52-1.04) mg/dL Glucose (74-99) mg/dL POC Glucose (mg/dL) 125 H 123 H (75-99) mg/dL Alkaline Phosphatase (38-126) U/L 10/16/19 10/17/19 10/17/19 Range/Units 20:42 07:15 08:44 RBC 2.88 L (3.80-5.40) m/uL Hgb 10.3 L (11.4-16.0) gm/dL Hct 33.5 L (34.0-46.0) % MCV 116.3 H (80.0-100.0) fL MCH 35.9 H (25.0-35.0) pg MCHC 30.9 L (31.0-37.0) g/dL RDW 17.9 H (11.5-15.5) % Plt Count (150-450) k/uL Macrocytosis Marked A BUN (7-17) mg/dL Creatinine (0.52-1.04) mg/dL Glucose (74-99) mg/dL POC Glucose (mg/dL) 158 H 127 H (75-99) mg/dL Alkaline Phosphatase (38-126) U/L 10/17/19 Range/Units 08:44 RBC (3.80-5.40) m/uL Hgb (11.4-16.0) gm/dL Hct (34.0-46.0) % MCV (80.0-100.0) fL MCH (25.0-35.0) pg MCHC (31.0-37.0) g/dL RDW (11.5-15.5) % Plt Count (150-450) k/uL Macrocytosis BUN 26 H (7-17) mg/dL Creatinine 2.37 H (0.52-1.04) mg/dL Glucose 126 H (74-99) mg/dL POC Glucose (mg/dL) (75-99) mg/dL Alkaline Phosphatase 138 H (38-126) U/L
--- NOTE | 2019-10-17 11:39 | XR ---
EXAMINATION TYPE: XR abdomen 2V DATE OF EXAM: 10/17/2019 COMPARISON: NONE HISTORY: Abdominal distention TECHNIQUE: One view abdominal series FINDINGS: The osseous structures are intact. The bowel gas pattern is nonspecific subsegmental consolidation w ith small effusions. Dialysis catheter and cardiomegaly noted. IVC filter seen. Large gallstone suspe cted. Severe arthropathy of the right hip and postsurgical change left hip. Calcifications in the pel vis noted. There are dilated small bowel loops in the left abdomen. Atherosclerotic change of the vas culature. IMPRESSION: 1. Numerous large gallstones. 2. Dilated small bowel loops in left abdomen differential diagnosis would include a partial obstructi on versus ileus 3. Bilateral lower lobe infiltrate and small effusion. 4. complete loss of right hip joint space with deformity of the femoral head. Osteonecrosis in the di fferential diagnosis.
--- NOTE | 2019-10-17 13:10 | NM ---
Nuclear medicine hepatobiliary scan. HISTORY: Pain. DOSAGE: The patient received 4.9 mCi of Technetium 99m Choletec. COMPARISON: Ultrasound 10/13/2019 FINDINGS: There is normal hepatic extraction. The gallbladder is not seen at 60 minutes with certain ty. There is biliary to bowel clearance by 50 minutes. Additional uptake is seen in the mid abdomen outside of the liver which is nonspecific. This could be correlated with CT scan. IMPRESSION: 1. Limited exam without ejection fraction performed demonstrating nonvisualization the gallbladder at 60 minutes. Correlate for cholecystitis. 2. Vague uptake seen in the mid abdomen is nonspecific appears to be outside of bowel. Recommend foll ow-up CT scan.
[2019-10-17] MEDS: LINAGLIPTIN 5 MG TABLET PO SCH (15:13)
[2019-10-17 17:09] LABS: Glucose,Whole Blood 105 mg/dL (75-99)
[2019-10-17] MEDS: RIVAROXABAN 10 MG TAB PO SCH (17:37)
--- NOTE | 2019-10-17 18:49 | PN ---
PROGRESS NOTE The patient is seen for follow up for end-stage renal disease. This morning the patient is complaining of nausea again. She is going down for a HIDA scan. She tolerated her dialysis well. There is no further bleeding from the catheter site. PHYSICAL EXAMINATION: On examination, blood pressure was 106/66, heart rate 82 per minute, she is afebrile. Examination of the heart: S1 and S2. Examination of the lungs: Bilateral breath sounds are heard. Abdomen is soft, nontender. Examination of the lower extremities shows edema 1+ bilaterally. MANAGER PERSONAL examination grossly intact. LABS: Labs show sodium of 137, potassium 4.0, hemoglobin 10.3 grams/dL. ASSESSMENT: 1. End-stage renal disease on hemodialysis on a Monday, Monday, Monday schedule. 2. Volume overload, currently improved. 3. Nausea with history of gallstones, going down for a HIDA scan. 4. Bleeding from the IJ PermCath site, currently improved. 5. Chronic kidney disease, mineral bone disorder, currently stable. PLAN: Follow up on HIDA scan. We will plan on hemodialysis in the a.m. MMODL / HARRISONN: [id number] /
[2019-10-17 20:35] LABS: Glucose,Whole Blood 99 mg/dL (75-99)
[2019-10-18] MEDS: Acetaminophen-Codeine 300-30mg TAB PO SCH ×3 (05:05→13:10)
[2019-10-18 08:02] LABS: Glucose,Whole Blood 83 mg/dL (75-99)
[2019-10-18] MEDS: INSULIN ASPART (NovoLOG) 100 UNIT/ML VIAL SQ SCH ×4 (08:03→21:43)
[2019-10-18] MEDS: METOPROLOL TARTRATE 25 MG TAB PO SCH ×3 (08:04→21:41)
[2019-10-18 09:00] LABS: Anisocytosis Slight; Basophils % (A) 0 %; Eosinophils # (A) 0.2 k/uL (0-0.7); Eosinophils % (A) 2 %; HCT 28.8 % (34.0-46.0); Hypochromasia Moderate; Lymphocytes % (A) 14 %; MCH 36.4 pg (25.0-35.0); MCHC 31.3 g/dL (31.0-37.0); MCV 116.1 fL (80.0-100.0); Macrocytosis Marked; Monocytes # (A) 0.4 k/uL (0-1.0); Monocytes % (A) 6 %; Neutrophils # (A) 5.2 k/uL (1.3-7.7); Neutrophils % (A) 75 %; Platelet Count 154 k/uL (150-450); RBC 2.48 m/uL (3.80-5.40); RDW 17.6 % (11.5-15.5); WBC 6.9 k/uL (3.8-10.6)
[2019-10-18] MEDS: DORZOLAMIDE HCL 2% DROPS 10 ML BTL BOTH EYES SCH ×2 (09:21→21:41)
[2019-10-18] MEDS: BRIMONIDINE TARTRATE 0.2% DROPS 5 ML BTL BOTH EYES SCH ×2 (09:22→21:41)
[2019-10-18] MEDS: MIDODRINE 5 MG TAB PO SCH ×3 (09:23→21:42)
[2019-10-18 09:30] LABS: Calcium 8.4 mg/dL (8.4-10.2); Potassium 3.7 mmol/L (3.5-5.1); Total Bilirubin 0.8 mg/dL (0.2-1.3); Total Protein 5.9 g/dL (6.3-8.2)
--- NOTE | 2019-10-18 11:22 | P.PN ---
Subjective Progress Note Date: 10/18/19 Trina Carrillo, he is an 84-year-old female who was recently discharged from [facility], who presented to emergency room was a chief complaint of worsening shortness of breath, sharp pain in the chest, and significant swelling in the bilateral lower extremity, she was evaluated in emergency room and was admitted to telemetry floor for further evaluation and treatment BNP was elevated at 15,800 patient has known history of chronic renal failure with elevated BUN and creatinine she was evaluated by nephrology last admission and decision was made to start hemodialysis soon however patient condition deteriorated fast and patient and her family decided to return to emergency room. Due to shortness of breath patient had a VQ scan done in the emergency room, there was no clear evidence of any pulmonary embolism, there was matching ventilation and perfusion defects and the scan was read as intermediate probability for pulmonary embolus. Consultation for cardiology, pulmonary, nephrology were initiated in the emergency room. Patient was seen and examined on the telemetry floor, she is alert and oriented 3 in no apparent distress, at this time her chest pain has resolved and her shortness of breath has improved, she is still having significant bilateral lower extremity edema, otherwise she denies any complaints there is no fever or chills no headache or dizziness no chest pain, no cough no nausea or vomiting no abdominal pain no diarrhea no burning with urination no frequency or urgency no hematuria. On 10/07/2019 patient is alert and oriented 3. Patient does reports improvement with edema and shortness of breath. Patient remains on Lasix 40 every 8 hours. Patient still having some mild chest discomfort. Cardiology nephrology and pulmonary services are following. Venous Doppler was negative for DVTs. Urine culture has been ordered. On 10/08/2019 patient is alert and oriented 3. Family at bedside. Patient remains on IV Lasix. Plans for possible inpatient hemodialysis per nephrology recommendation. Family requesting to speak to Dr. Wellington in regards to VQ scan results before proceeding with hemodialysis. IV Lasix will be DC'd per nephrology and Demadex 20 mg daily ordered. Patient reports improvement with shortness of breath and chest pain. Per cardiology services anticoagulation has been switched from xarelto to eliquis. On 10/09/2019 patient is alert and oriented 3. Daughter at bedside. Patient has been started on Demadex IV Lasix DC'd plans for hemodialysis catheter access today per Dr. Collado anticoagulation currently on hold. Patient denies chest pain or shortness of breath. Patient denies nausea vomiting or diarrhea. Patie nt denies any urinary burning or frequency On 10/10/2019 patient is alert and oriented 3. Patient underwent hemodialysis catheter placement on 10/09/[address] Collado. Plans for hemodialysis today and for the next 3 days per nephrology. At this time patient is tired resting in bed. Patient denies any chest pain does report some discomfort around hemodialysis site. Patient denies any urinary burning or frequency On 10/11/2019 patient alert and oriented 3. Patient under went first chronic hemodialysis yesterday 1 L off. Plan for patient to get hemodialysis today and tomorrow with close monitoring of blood pressure and patient. Patient is alert and oriented. Patient denies chest pain. Patient denies shortness breath. Patient denies nausea vomiting or diarrhea. Patient denies any urinary burning or frequency On 10/12/2019 patient was seen and examined on the medical floor she is alert and oriented 3 in no apparent distress she accidentally pulled her dialysis catheter partially at night there is some bleeding around the catheter site otherwise she denies any complaints there is no fever or chills no headache or dizziness no chest pain no shortness of breath no cough no nausea or vomiting no abdominal pain no diarrhea and no urinary symptoms. On 10/13/2019 patient was seen and examined on the medical floor she is complaining of nausea and vomiting and feeling tired otherwise she denies any complaints, there is no fever or chills no headache or dizziness no chest pain no shortness of breath no cough no abdominal pain no diarrhea no burning with urination no frequency or urgency and no hematuria On 10/14/2019 patient is alert and oriented 3. Patient is currently getting hemodialysis. Patient still having oozing from hemodialysis site. She is maintained on eliquis, dosage has been decreased per cardiology. Nausea and vomiting have improved. Patient denies chest pain or shortness of breath. Patient denies any urinary burning or frequency On 10/15/2019 patient is alert and oriented 3. Patient currently sitting up in chair. Patient having some oozing at hemodialysis site. Patient was dilated by Dr. Collado. Patient states coagulation currently on hold did receive DDAVP for the oozing per nephrology. Patient also evaluated by Dr. ferrer due to chronic cholecystitis continue to monitor symptoms at this time plans for surgical intervention. Patient denies chest pain or shortness breath. Patient denies nausea vomiting or diarrhea. Patient denies any urinary burning or frequency On 10/16/2019 patient's alert and oriented 3. Patient currently getting hemodialysis. Pressure dressing remains on hemodialysis site awaiting for Dr. Collado input. Patient will hopefully be restarted back on anticoagulation in the next 24-48 hours only to monitor site for bleeding. At this time patient denies chest pain or shortness of breath. Patient denies nausea vomiting or diarrhea. Patient denies any urinary burning or frequency On 10/17/2019 patient's alert and oriented 3. Patient having episode of nausea post dinner last evening. Patient also having increased abdominal discomfort and distention today. Did discuss case with surgical nurse practitioner. Case was discussed with Dr. Vuong. Plans for HIDA scan and abdominal x-ray. Patient was also started back on Xarelto. Hemodialysis site showing no signs of bleeding. We'll continue to monitor. On 10/18/2019 patient's alert and oriented 3. Patient has been nothing by mouth per surgical services. Abdominal discomfort and nausea have subsided. HIDA scan and x-ray completed surgical services to review. Patient is currently getting hemodialysis. Patient denies chest pain or shortness of breath. Patient denies nausea vomiting or diarrhea. Patient denies any urinary burning or frequency Objective - Vital Signs Vital signs: Vital Signs Temp 98.2 F 10/18/19 07:00 Pulse 86 10/18/19 08:00 Resp 16 10/18/19 08:00 BP 117/78 10/18/19 07:00 Pulse Ox 97 10/18/19 07:00 Intake & Output 10/17/19 10/18/19 10/18/19 18:59 06:59 18:59 Intake Total 200 590 Balance 200 590 Weight 84.3 kg 78.5 kg Intake: Oral 200 590 Other: Voiding Method Toilet Toilet Toilet # Voids 2 3 # Bowel Movements 4 - Exam In general patient is alert and oriented 3 in no apparent distress HEENT head normocephalic and atraumatic. Hemodialysis port right upper chest wall Neck is supple no JVD no goiter Chest exam reveals a scattered crackles bilaterally no wheezing Cardiac exam reveals regular heart sounds no gallops no murmurs Abdomen is soft nontender no organomegaly Extremity exam reveals 2+ edema no cyanosis or clubbing Neurological examination reveals no gross focal deficits - Labs CBC & Chem 7: 10/18/19 07:30 10/18/19 07:30 Labs: Abnormal Lab Results - Last 24 Hours (Table) 10/17/19 10/18/19 10/18/19 Range/Units 17:06 07:30 07:30 RBC 2.48 L (3.80-5.40) m/uL Hgb 9.0 L (11.4-16.0) gm/dL Hct 28.8 L (34.0-46.0) % MCV 116.1 H (80.0-100.0) fL MCH 36.4 H (25.0-35.0) pg RDW 17.6 H (11.5-15.5) % Macrocytosis Marked A Sodium 135 L (137-145) mmol/L BUN 31 H (7-17) mg/dL Creatinine 2.67 H (0.52-1.04) mg/dL POC Glucose (mg/dL) 105 H (75-99) mg/dL Total Protein 5.9 L (6.3-8.2) g/dL Albumin 3.0 L (3.5-5.0) g/dL Assessment and Plan Assessment: #1 severe shortness of breath improved most likely related to fluid overload patient related to acute on chronic systolic CHF secondary to end-stage renal disease was started on IV Lasix and consultation for nephrology was initiated to assess if patient needs to be started on hemodialysis during this admission. Patient and family are still waiting to make final decision in regards to hemodialysis. Would like to discuss with Dr. Wellington prior to making decision. Per nephrology IV Lasix has been DC'd and patient switched to Demadex. Hemodialysis access achieved on 10/09/[address] Collado. Patient will be on Monday hemodialysis schedule #2 abnormal chest x-ray revealing evidence of hilar fullness, will continue to monitor and repeat chest x-ray once fluid overload has resolved #3 indeterminate VQ scan, doubt pulmonary embolism, bilateral lower extremity Doppler was ordered. Venous Doppler of lower extremities showing no active DVT in the lower extremity. Persistent long segment thrombus in the right lower x- ray has been present on prior studies. Doppler study completed of upper extremities are negative for DVT in either extremity #4 underlying history of chronic atrial fibrillation #5 underlying history of chronic kidney disease stage IV #6 underlying history of diabetes mellitus controlled #7 underlying history of hypertension #8 underlying history of anemia of chronic renal disease #9. Urinary tract infection. Patient started on Rocephin. Urine culture completed and negative. Antibiotics will be DC'd #10 nausea and vomiting. Diet increased. Symptoms reappearing on 10/17/2019. Discussed case with surgical nurse practitioner plans for HIDA scan and abdominal ultrasound #11. Chronic cholecystitis with calculs. Patient was evaluated by surgical services. Recommending at this time resuming low-fat diet monitor symptoms no antibiotics needed #12. Increased bleeding at hemodialysis site. Eliquis currently on hold per cardiology. DDAVP was given per nephrology. We'll continue to monitor site. Patient has been started on anticoagulation Xarelto no signs of bleeding at hemodialysis site DVT prophylaxis SCDs. GI prophylaxis Protonix Pulmonary cardiology and nephrology following Increased abdominal discomfort and nausea. Surgical services reconsulted I performed an examination of the patient and discussed their management with the Nurse Practitioner. I have reviewed the Nurse Practitioner's notes and agree with the documented findings and plan of care
[2019-10-18 11:57] LABS: Glucose,Whole Blood 76 mg/dL (75-99)
[2019-10-18] MEDS: CALCIUM ACETATE 667 MG TAB PO SCH ×3 (12:15→18:06)
[2019-10-18] MEDS: traMADol 50 MG TAB PO PRN (12:18)
[2019-10-18] MEDS: VIT A,C & E-LUTEIN-MINERALS 1 EACH TAB PO SCH (12:19)
[2019-10-18] MEDS: DOCUSATE 100 MG CAP PO SCH ×2 (12:19→21:42)
[2019-10-18] MEDS: ALLOPURINOL 100 MG TAB PO SCH (12:19)
[2019-10-18] MEDS: TORSEMIDE 20 MG TAB PO SCH (12:19)
[2019-10-18] MEDS: FERROUS SULFATE 325 MG TAB PO SCH (12:20)
[2019-10-18] MEDS: PANTOPRAZOLE 40 MG TABLET PO SCH (12:20)
[2019-10-18] MEDS: CHOLECALCIFEROL 1,000 UNIT TAB PO SCH (12:20)
--- NOTE | 2019-10-18 14:35 | CT ---
EXAMINATION TYPE: CT brain wo con DATE OF EXAM: 10/18/2019 COMPARISON: None HISTORY: Fall with pain CT DLP: 995.8 mGycm Automated exposure control for dose reduction was used. FINDINGS: There are intracranial atherosclerotic changes. Ventricular system is midline without evidence of dis placement. Mild generalized degenerative change of the greater frontal lobe component. No acute hemorrhage or mass effect. There is faint periventricular low attenuation which is nonspecif ic but most typical remote ischemic change. Calvarium intact. Cerebellar tonsils low-lying in position IMPRESSION: DEGENERATIVE CHANGE WITH NO DIAGNOSTIC EVIDENCE OF ACUTE INTRACRANIAL HEMORRHAGE OR MASS EFFECT.
--- NOTE | 2019-10-18 14:51 | PN ---
PROGRESS NOTE Patient is seen on hemodialysis, she is tolerating the treatment well. Awaiting surgical evaluation as patient has had episodes of nausea and emesis with underlying gallstones. Not an ideal surgical candidate at this time. PHYSICAL EXAMINATION: On examination, blood pressure is 117/78, heart rate 86 per minute, she is afebrile. Examination of the heart S1, S2. Examination of the lungs, bilateral breath sounds are heard. Abdomen is soft, nontender. Examination of the lower extremities shows 1+ edema bilaterally. INTERPRETER DEAF exam grossly intact. LABS: Show sodium 135, potassium 3.7, hemoglobin 9.0 g/dL. ASSESSMENT: 1. End-stage renal disease, on hemodialysis on a Monday, Monday, Monday schedule. 2. Nausea with underlying gallstones, status post HIDA scan yesterday. 3. Bleeding from IJ PermCath, currently stopped. 4. Fluid overload, now improved. PLAN: Hemodialysis today goal UF about 1-1.5 L. Followup regarding surgical recommendations. MMODL / IJN: [id number] /
--- NOTE | 2019-10-18 15:19 | P.CNOR ---
History of Present Illness - [facility] Consult date: 10/18/19 Consult reason: other (Right hip osteoarthritis) History of present illness: The patient is an 84-year-old female who is known to our office and has seen Dr. Bahman Wan in the past for advanced osteoarthritis of the right hip. 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 She has taken Ultram and Tylenol 3 in the past for pain which seemed to ease the pain most this time. The patient has seen pain management in the past has received 2 cortisone injections into the hip joint which were not effective. She continues to be ambulatory at home normally with a cane. During this hospitalization, and abdominal x-ray was obtained and severe osteoarthritis of the right hip with deformity to the femoral head was identified. Orthopedics was consulted for further evaluation. She is post left total hip arthroplasty in the distant past. Today, the patient states that she denies any recent injury or falls. There has not been a change in her hip pain over the last few years. She was last seen in our office in 2016. Review of Systems Constitutional: Denies chills, Denies fever Cardiovascular: Denies chest pain, Denies shortness of breath Respiratory: Denies cough Gastrointestinal: Reports nausea, Reports vomiting, Denies abdominal pain, Denies diarrhea Musculoskeletal: right: hip pain, hip stiffness Past Medical History Past Medical History: Atrial Fibrillation, Coronary Artery Disease (CAD), Cancer, Heart Failure, Diabetes Mellitus, Deep Vein Thrombosis (DVT), Eye Disorder, GERD/Reflux, Hypertension, Renal Disease Additional Past Medical History / Comment(s): Macular Degeneration and glaucoma, gallstones, stage 4 kidney failure, hx Uterine & groin CA; WEARS BILAT THIGH HIGH HOSE, uses cane or walker, patient states she has "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 left hip replacement, LEFT breast biopsy, darcy filter rt leg, biopsy of right nostril, biopsy rt breast Past Anesthesia/Blood Transfusion Reactions: No Reported Reaction Past Psychological History: No Psychological Hx Reported Smoking Status: Former smoker Past Alcohol Use History: None Reported Additional Past Alcohol Use History / Comment(s): smoked 1 pkg from 1961 to 1971 Past Drug Use History: None Reported - Past Family History Mother Family Medical History: No Reported History Additional Family Medical History / Comment(s): Family states pt's mother " of pneumonia". Father Family Medical History: Diabetes Mellitus Medications and Allergies Home Medications Medication Instructions Recorded Confirmed Type Allopurinol [Zyloprim] 200 mg PO DAILY@0800 01/22/14 10/06/19 History Linagliptin [Tradjenta] 5 mg PO DAILY@1500 01/22/14 10/06/19 History Omeprazole [PriLOSEC] 20 mg PO DAILY@0701/22/14 10/06/19 History Docusate Sodium [Stool Softener] 100 mg PO BID@09,199902/22/14 10/06/19 History Garlic 1 tab PO BID@0900,199902/22/14 10/06/19 History Calcitriol 0.25 mcg PO SUTUTHSA@0800 08/22/14 10/06/19 History Brinzolamide/Brimonidine Tart 1 drop BOTH EYES BID@699,199905/11/17 10/06/19 History [Simbrinza 1%-0.2% Eye Drops] Vit C/E/Zn/Coppr/Lutein/Zeaxan 1 cap PO BID@09,199912/03/17 10/06/19 History [Preservision Areds 2 Softgel] Ferrous Sulfate [Feosol] 325 mg PO DAILY@79901/11/18 10/06/19 History Cholecalciferol (Vitamin D3) 2,000 unit PO DAILY@79902/10/18 10/06/19 History [Vitamin D3] Isosorbide Mononitrate ER [Imdur] 60 mg PO DAILY@79902/10/18 10/06/19 History Wheat Dextrin [Benefiber] 1 packet PO BID@799,199902/10/18 10/06/19 History Midodrine [ProAmatine] 10 mg PO TID@0700,1500,2300 04/10/18 10/06/19 History Rivaroxaban [Xarelto] 10 mg PO DAILY@0800 04/10/18 10/06/19 History Metoprolol Tartrate [Lopressor] 25 mg PO DAILY@1500 06/15/18 10/06/19 History Metoprolol Tartrate [Lopressor] 50 mg PO BID@0700,2300 09/18/18 10/06/19 History Ondansetron [Zofran] 4 mg PO Q12H PRN 09/18/18 10/06/19 History Potassium Chloride ER [K-Dur 10] 30 meq PO BID@0800,1500 04/02/19 10/06/19 History Acetaminophen-Codeine 300-30mg 1 tab PO Q6H PRN 09/30/19 10/06/19 History [Tylenol w/codeine #3] Calcium Acetate [PhosLo] 1,334 mg PO TID-W/MEALS 30 Days 10/04/19 10/06/19 Rx #180 tab Torsemide [Demadex] 20 mg PO Q48H #0 10/04/19 10/06/19 Rx Cefuroxime Axetil [Ceftin] 500 mg PO BID@0800,2000 10/06/19 10/06/19 History Sodium Bicarbonate Tab 1,300 mg PO TID@0800,1500,209910/06/19 10/06/19 History Allergies Allergy/AdvReac Type Severity Reaction Status Date / Time atorvastatin calcium Allergy Unknown Verified 10/06/19 12:05 [From Lipitor] codeine Allergy Unknown Verified 10/06/19 12:05 [From Tylenol-Codeine #3] adhesive tape AdvReac Intermediate Unknown Verified 10/06/19 12:05 hydrocodone AdvReac Vomiting Verified 10/06/19 12:05 Physical Examination The patient is an 84 year old female that is no acute distress. She is alert and oriented x3. Exam of the right lower extremity reveals no deformity to the right leg. No pain upon palpation to the lateral hip. There is pain upon logrolling and internal and external rotation of the hip. Bilateral calves are soft and nontender. Patient has good foot and ankle motion bilaterally. Neurological and circulatory status is intact. Results Abdominal x-ray dated 10/17/2019 reveal severe joint narrowing of the right hip joint. There is a deformity to the femoral head. - Labs Labs: Abnormal Lab Results - Last 24 Hours (Table) 10/17/19 10/18/19 10/18/19 Range/Units 17:06 07:30 07:30 RBC 2.48 L (3.80-5.40) m/uL Hgb 9.0 L (11.4-16.0) gm/dL Hct 28.8 L (34.0-46.0) % MCV 116.1 H (80.0-100.0) fL MCH 36.4 H (25.0-35.0) pg RDW 17.6 H (11.5-15.5) % Macrocytosis Marked A Sodium 135 L (137-145) mmol/L BUN 31 H (7-17) mg/dL Creatinine 2.67 H (0.52-1.04) mg/dL POC Glucose (mg/dL) 105 H (75-99) mg/dL Total Protein 5.9 L (6.3-8.2) g/dL Albumin 3.0 L (3.5-5.0) g/dL H & H 10/06/19 10/07/19 10/09/19 Range/Units 05:41 05:59 08:37 Hgb 10.5 L 10.0 L 10.0 L (11.4-16.0) gm/dL Hct 33.1 L 32.0 L 31.4 L (34.0-46.0) % 10/10/19 10/11/19 10/12/19 Range/Units 05:28 07:30 05:58 Hgb 9.5 L 9.4 L 9.8 L (11.4-16.0) gm/dL Hct 30.1 L 30.0 L 31.2 L (34.0-46.0) % 10/14/19 10/15/19 10/16/19 Range/Units 05:32 06:08 07:00 Hgb 9.6 L 10.2 L 9.7 L (11.4-16.0) gm/dL Hct 31.2 L 32.5 L 31.6 L (34.0-46.0) % 10/17/19 10/18/19 Range/Units 08:44 07:30 Hgb 10.3 L 9.0 L (11.4-16.0) gm/dL Hct 33.5 L 28.8 L (34.0-46.0) % Coagulation 10/06/19 Range/Units 05:41 INR 1.3 H (<1.2) Result Diagrams: 10/18/19 07:30 10/18/19 07:30 Assessment and Plan (1) Osteoarthritis of right hip Current Visit: Yes Status: Acute Code(s): M16.11 - UNILATERAL PRIMARY OSTEOARTHRITIS, RIGHT HIP SNOMED Code(s): 227966797555773 (2) CKD (chronic kidney disease) stage 4, GFR 15-29 ml/min Current Visit: No Status: Acute Priority: High Code(s): N18.4 - CHRONIC KIDNEY DISEASE, STAGE 4 (SEVERE) SNOMED Code(s): 745281532 (3) Hypertension Current Visit: No Status: Acute Priority: Medium Code(s): I10 - ESSENTIAL (PRIMARY) HYPERTENSION SNOMED Code(s): 68029849 (4) CAD (coronary artery disease) Current Visit: No Status: Chronic Priority: Medium Code(s): I25.10 - ATHSCL HEART DISEASE OF [place] CORONARY ARTERY W/O ANG PCTRS SNOMED Code(s): 77204557 Plan: The clinical and x-ray findings were discussed with the patient and the patient's daughter at the bedside. The case was also discussed at length with Dr. Bahman Wan. The patient is not a surgical candidate at this time due to her numerous medical conditions and a chronic DVT to the right leg. The risks of surgery outweigh the benefits of pain relief to the right hip. Continue pain medication as needed. Continue ambulation as tolerated. She may follow-up in our office on an outpatient basis if needed. We will sign off at this time.
[2019-10-18 17:11] LABS: Glucose,Whole Blood 120 mg/dL (75-99)
--- NOTE | 2019-10-18 20:27 | P.PN ---
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 Indeterminate VQ scan less likely PE Chronic renal failure 10/18/2019, patient seen eval examined during the rounds labs reviewed medications reviewed care plan discussed with the patient at length patient is has been doing problems with abdominal distention and an uncomfortable feeling, shE has been nothing by mouth, general surgery following, patient continued to get hemodialysis Monday10/13/2019, patient seen eval examined during the rounds labs reviewed med ications reviewed care plan discussed, denies any chest pain and shortness of breath but however patient is not feeling well she is having hiccups with dyspepsia, patient is on clear liquid diet ultrasound of abdomen planned, the catheter site is intact but however some oozing is noted which is been stabilized vascular surgery following 10/12/2019, patient seen eval reexamined during the rounds labs reviewed medications reviewed sitting upright in the bed breathing well, patient had episode of the of [facility] nauseous and throw up once now she is improved now and during that process she has a small hemorrhage of the catheter site, hemostasis achieved no active bleeding is present, vascular surgery has been notified by staff 10/11/2019, patient seen eval examined during the rounds labs reviewed medications reviewed care plan discussed sitting upright on the bed undergoing hemodialysis today is the second cycle hemodialysis denies any shortness of breath or chest pain 10/10/2019, patient seen eval examined during the rounds labs reviewed medications reviewed patient is undergoing hemodialysis doing well denies any chest pain hemodynamic status stable breathing more comfortably 10/09/2019, patient seen eval examined during the rounds labs reviewed medications reviewed respiratory status stable patient is a 4 permacath placement later on today hemodynamic shoes stable patient is a going to undergo hemodialysis as planned by renal services, labs are reviewed BUN/creatinine is elevated 85/3.07, blood pressure in the lower side, oxygen saturation is 99% on room air 10/08/2019, patient seen eval reexamined during the rounds sitting upright on the chest on the chair breathing comfortably denies any chest pain, due to chronic renal failure renal services to hemodialysis patient has been taken off of anticoagulation dialysis catheter is being planned for tomorrow, duplex ultrasound of the lower extremity revealed a chronic old thrombosis in the near and right lower extremity left is negative up her extremities are also negative for acute DVT This is a 84-year-old female with chronic atrial fibrillation well-known to me patient has been on chronic long-term lifelong anticoagulation she has chronic atrial fibrillation small pleural effusion, she has a congestive heart failure due to that, patient this morning woke up with chronic stable shortness of breath and some left-sided chest pain improved with applying pressure, came into emergency department, patient has been recently discharged from the hospital yesterday, patient underwent a chest x-ray revealed prominent right hilum and cardiomegaly no pleural effusion seen, VQ scan shows matching defects, labs significant for elevated BUN/creatinine of 96 and 2.87, BNP is over 15,000, Objective - Vital Signs Vital signs: Vital Signs Temp 97.6 F 10/18/19 15:55 Pulse 80 10/18/19 20:00 Resp 17 10/18/19 20:00 BP 111/77 10/18/19 15:55 Pulse Ox 100 10/18/19 15:55 Intake & Output 10/18/19 10/18/19 10/19/19 06:59 18:59 06:59 Intake Total 590 200 Output Total 1500 Balance 590 -1300 Weight 78.5 kg Intake: Oral 590 200 Output: Hemodialysis 1500 Other: Voiding Method Toilet Toilet Toilet # Voids 3 3 - Exam - Constitutional General appearance: average body habitus, disheveled, no acute distress - EENT Eyes: EOMI, PERRLA Ears: bilateral: normal - Neck Carotids: bilateral: upstroke normal - Respiratory Respiratory: bilateral: CTA - Cardiovascular Rhythm: regular Heart sounds: normal: S1, S2 - Gastrointestinal General gastrointestinal: decreased bowel sounds - Neurologic Neurologic: CNII-XII intact - Musculoskeletal Musculoskeletal: gait normal, generalized weakness, strength equal bilaterally - Psychiatric Psychiatric: A&O x's 3, appropriate affect, intact judgment & insight - Labs CBC & Chem 7: 10/18/19 07:30 10/18/19 07:30 Labs: Abnormal Lab Results - Last 24 Hours (Table) 10/18/19 10/18/19 10/18/19 Range/Units 07:30 07:30 17:06 RBC 2.48 L (3.80-5.40) m/uL Hgb 9.0 L (11.4-16.0) gm/dL Hct 28.8 L (34.0-46.0) % MCV 116.1 H (80.0-100.0) fL MCH 36.4 H (25.0-35.0) pg RDW 17.6 H (11.5-15.5) % Macrocytosis Marked A Sodium 135 L (137-145) mmol/L BUN 31 H (7-17) mg/dL Creatinine 2.67 H (0.52-1.04) mg/dL POC Glucose (mg/dL) 120 H (75-99) mg/dL Total Protein 5.9 L (6.3-8.2) g/dL Albumin 3.0 L (3.5-5.0) g/dL Assessment and Plan Assessment: Intermittent abdominal pain, general surgery of following Chronic renal failure likely cardiorenal Abnormal x-ray with hilar fullness Chronic atrial fibrillation on lifelong anticoagulation with his Xarelto Indeterminate VQ scan less likely PE Chronic pleural effusion Plan: For hemodialysis per renal services Continue anticoagulation Reviewed duplex ultrasound of both upper and lower extremity Follow clinical course closely Resume anticoagulation post dialysis catheter placement, Computed tomography scan of the chest to be performed once patient is stable without dye t Time with Patient: Greater than 30
[2019-10-18 21:11] LABS: Glucose,Whole Blood 110 mg/dL (75-99)
[2019-10-18] MEDS: NYSTATIN 100,000UNIT/GM CREAM 30 GM TUBE TOPICAL SCH (21:55)
[2019-10-19] MEDS: VIT A,C & E-LUTEIN-MINERALS 1 EACH TAB PO SCH ×3 (04:25→20:46)
[2019-10-19] MEDS: Acetaminophen-Codeine 300-30mg TAB PO SCH ×3 (04:25→12:13)
[2019-10-19] MEDS: RIVAROXABAN 10 MG TAB PO SCH ×2 (06:36→17:18)
[2019-10-19] MEDS: LINAGLIPTIN 5 MG TABLET PO SCH ×2 (06:36→15:41)
[2019-10-19 06:59] LABS: Glucose,Whole Blood 81 mg/dL (75-99)
[2019-10-19] MEDS: DORZOLAMIDE HCL 2% DROPS 10 ML BTL BOTH EYES SCH ×2 (07:38→20:46)
[2019-10-19] MEDS: BRIMONIDINE TARTRATE 0.2% DROPS 5 ML BTL BOTH EYES SCH ×2 (07:38→20:46)
[2019-10-19 07:43] LABS: Anisocytosis Slight; Basophils % (A) 0 %; Eosinophils # (A) 0.1 k/uL (0-0.7); Eosinophils % (A) 2 %; HCT 29.4 % (34.0-46.0); HGB 9.1 gm/dL (11.4-16.0); Hypochromasia Moderate; Lymphocytes # (A) 0.8 k/uL (1.0-4.8); Lymphocytes % (A) 11 %; MCH 36.1 pg (25.0-35.0); MCV 116.3 fL (80.0-100.0); Macrocytosis Marked; Mean Platelet Volume 8.7; Monocytes # (A) 0.5 k/uL (0-1.0); Monocytes % (A) 7 %; Neutrophils # (A) 5.7 k/uL (1.3-7.7); Neutrophils % (A) 76 %; Platelet Count 153 k/uL (150-450); RBC 2.53 m/uL (3.80-5.40); RDW 17.4 % (11.5-15.5); WBC 7.5 k/uL (3.8-10.6)
[2019-10-19 08:03] LABS: Albumin 2.7 g/dL (3.5-5.0); Calcium 8.2 mg/dL (8.4-10.2); Potassium 3.9 mmol/L (3.5-5.1); Total Bilirubin 0.9 mg/dL (0.2-1.3); Total Protein 5.3 g/dL (6.3-8.2)
[2019-10-19] MEDS: CALCITRIOL 0.25 MCG CAP PO SCH (08:43)
[2019-10-19] MEDS: CALCIUM ACETATE 667 MG TAB PO SCH ×3 (08:43→17:15)
[2019-10-19] MEDS: METOPROLOL TARTRATE 25 MG TAB PO SCH ×3 (08:43→22:44)
[2019-10-19] MEDS: ALLOPURINOL 100 MG TAB PO SCH (08:44)
[2019-10-19] MEDS: TORSEMIDE 20 MG TAB PO SCH (08:44)
[2019-10-19] MEDS: PANTOPRAZOLE 40 MG TABLET PO SCH (08:44)
[2019-10-19] MEDS: INSULIN ASPART (NovoLOG) 100 UNIT/ML VIAL SQ SCH ×4 (08:44→20:53)
[2019-10-19] MEDS: MIDODRINE 5 MG TAB PO SCH ×3 (08:44→22:44)
[2019-10-19] MEDS: CHOLECALCIFEROL 1,000 UNIT TAB PO SCH (08:44)
[2019-10-19] MEDS: FERROUS SULFATE 325 MG TAB PO SCH (08:44)
[2019-10-19] MEDS: DOCUSATE 100 MG CAP PO SCH ×2 (08:44→20:45)
[2019-10-19] MEDS: NYSTATIN 100,000UNIT/GM CREAM 30 GM TUBE TOPICAL SCH ×2 (08:45→20:51)
[2019-10-19 11:35] LABS: Glucose,Whole Blood 111 mg/dL (75-99)
[2019-10-19 12:18] LABS: Target Cells Present
--- NOTE | 2019-10-19 13:27 | P.PN ---
Subjective Progress Note Date: 10/19/19 Trina Carrillo, he is an 84-year-old female who was recently discharged from [facility], who presented to emergency room was a chief complaint of worsening shortness of breath, sharp pain in the chest, and significant swelling in the bilateral lower extremity, she was evaluated in emergency room and was admitted to telemetry floor for further evaluation and treatment BNP was elevated at 15,800 patient has known history of chronic renal failure with elevated BUN and creatinine she was evaluated by nephrology last admission and decision was made to start hemodialysis soon however patient condition deteriorated fast and patient and her family decided to return to emergency room. Due to shortness of breath patient had a VQ scan done in the emergency room, there was no clear evidence of any pulmonary embolism, there was matching ventilation and perfusion defects and the scan was read as intermediate probability for pulmonary embolus. Consultation for cardiology, pulmonary, nephrology were initiated in the emergency room. Patient was seen and examined on the telemetry floor, she is alert and oriented 3 in no apparent distress, at this time her chest pain has resolved and her shortness of breath has improved, she is still having significant bilateral lower extremity edema, otherwise she denies any complaints there is no fever or chills no headache or dizziness no chest pain, no cough no nausea or vomiting no abdominal pain no diarrhea no burning with urination no frequency or urgency no hematuria. On 10/07/2019 patient is alert and oriented 3. Patient does reports improvement with edema and shortness of breath. Patient remains on Lasix 40 every 8 hours. Patient still having some mild chest discomfort. Cardiology nephrology and pulmonary services are following. Venous Doppler was negative for DVTs. Urine culture has been ordered. On 10/08/2019 patient is alert and oriented 3. Family at bedside. Patient remains on IV Lasix. Plans for possible inpatient hemodialysis per nephrology recommendation. Family requesting to speak to Dr. Wellington in regards to VQ scan results before proceeding with hemodialysis. IV Lasix will be DC'd per nephrology and Demadex 20 mg daily ordered. Patient reports improvement with shortness of breath and chest pain. Per cardiology services anticoagulation has been switched from xarelto to eliquis. On 10/09/2019 patient is alert and oriented 3. Daughter at bedside. Patient has been started on Demadex IV Lasix DC'd plans for hemodialysis catheter access today per Dr. Collado anticoagulation currently on hold. Patient denies chest pain or shortness of breath. Patient denies nausea vomiting or diarrhea. Aishwarya ent denies any urinary burning or frequency On 10/10/2019 patient is alert and oriented 3. Patient underwent hemodialysis catheter placement on 10/09/[address] Collado. Plans for hemodialysis today and for the next 3 days per nephrology. At this time patient is tired resting in bed. Patient denies any chest pain does report some discomfort around hemodialysis site. Patient denies any urinary burning or frequency On 10/11/2019 patient alert and oriented 3. Patient under went first chronic hemodialysis yesterday 1 L off. Plan for patient to get hemodialysis today and tomorrow with close monitoring of blood pressure and patient. Patient is alert and oriented. Patient denies chest pain. Patient denies shortness breath. Patient denies nausea vomiting or diarrhea. Patient denies any urinary burning or frequency On 10/12/2019 patient was seen and examined on the medical floor she is alert and oriented 3 in no apparent distress she accidentally pulled her dialysis catheter partially at night there is some bleeding around the catheter site otherwise she denies any complaints there is no fever or chills no headache or dizziness no chest pain no shortness of breath no cough no nausea or vomiting no abdominal pain no diarrhea and no urinary symptoms. On 10/13/2019 patient was seen and examined on the medical floor she is complaining of nausea and vomiting and feeling tired otherwise she denies any complaints, there is no fever or chills no headache or dizziness no chest pain no shortness of breath no cough no abdominal pain no diarrhea no burning with urination no frequency or urgency and no hematuria. On 10/14/2019 patient is alert and oriented 3. Patient is currently getting hemodialysis. Patient still having oozing from hemodialysis site. She is main tained on eliquis, dosage has been decreased per cardiology. Nausea and vomiting have improved. Patient denies chest pain or shortness of breath. Patient denies any urinary burning or frequency On 10/15/2019 patient is alert and oriented 3. Patient currently sitting up in chair. Patient having some oozing at hemodialysis site. Patient was dilated by Dr. Collado. Patient states coagulation currently on hold did receive DDAVP for the oozing per nephrology. Patient also evaluated by Dr. ferrer due to chronic cholecystitis continue to monitor symptoms at this time plans for surgical inter vention. Patient denies chest pain or shortness breath. Patient denies nausea vomiting or diarrhea. Patient denies any urinary burning or frequency On 10/16/2019 patient's alert and oriented 3. Patient currently getting hemodialysis. Pressure dressing remains on hemodialysis site awaiting for Dr. Collado input. Patient will hopefully be restarted back on anticoagulation in the next 24-48 hours only to monitor site for bleeding. At this time patient denies chest pain or shortness of breath. Patient denies nausea vomiting or diarrhea. Patient denies any urinary burning or frequency On 10/17/2019 patient's alert and oriented 3. Patient having episode of nausea post dinner last evening. Patient also having increased abdominal discomfort and distention today. Did discuss case with surgical nurse practitioner. Case was discussed with Dr. Vuong. Plans for HIDA scan and abdominal x-ray. Patient was also started back on Xarelto. Hemodialysis site showing no signs of bleeding. We'll continue to monitor. On 10/18/2019 patient's alert and oriented 3. Patient has been nothing by mouth per surgical services. Abdominal discomfort and nausea have subsided. HIDA scan and x-ray completed surgical services to review. Patient is currently getting hemodialysis. Patient denies chest pain or shortness of breath. Patient denies nausea vomiting or diarrhea. Patient denies any urinary burning or frequency On 10/19/2019 patient was seen and examined on the medical floor she is alert and oriented 3 in no apparent distress she was just restarted on soft diet which she tolerated well at this time she is scheduled for HIDA scan on Monday otherwise she is receiving hemodialysis and is tolerating well there is no fever or chills no headache or dizziness no chest pain no shortness of breath no cough no nausea or vomiting no abdominal pain no diarrhea no burning was urination no frequency or urgency no hematuria Objective - Vital Signs Vital signs: Vital Signs Temp 98.1 F 10/19/19 07:00 Pulse 81 10/19/19 07:41 Resp 14 10/19/19 07:41 BP 102/55 10/19/19 07:00 Pulse Ox 97 10/19/19 07:00 Intake & Output 10/18/19 10/19/19 10/19/19 18:59 06:59 18:59 Intake Total 200 Output Total 1500 Balance -1300 Weight 82 kg Intake: Oral 200 Output: Hemodialysis 1500 Other: Voiding Method Toilet Toilet Toilet Diaper # Voids 3 1 # Bowel Movements 1 - Exam In general patient is alert and oriented 3 in no apparent distress HEENT head normocephalic and atraumatic. Hemodialysis port right upper chest wall Neck is supple no JVD no goiter Chest exam reveals a scattered crackles bilaterally no wheezing Cardiac exam reveals regular heart sounds no gallops no murmurs Abdomen is soft nontender no organomegaly Extremity exam reveals 2+ edema no cyanosis or clubbing Neurological examination reveals no gross focal deficits - Labs CBC & Chem 7: 10/19/19 07:02 10/19/19 07:02 Labs: Abnormal Lab Results - Last 24 Hours (Table) 10/18/19 10/18/19 10/19/19 Range/Units 17:06 21:09 07:02 RBC 2.53 L (3.80-5.40) m/uL Hgb 9.1 L (11.4-16.0) gm/dL Hct 29.4 L (34.0-46.0) % MCV 116.3 H (80.0-100.0) fL MCH 36.1 H (25.0-35.0) pg RDW 17.4 H (11.5-15.5) % Lymphocytes # 0.8 L (1.0-4.8) k/uL Macrocytosis Marked A Sodium (137-145) mmol/L Chloride (98-107) mmol/L BUN (7-17) mg/dL Creatinine (0.52-1.04) mg/dL POC Glucose (mg/dL) 120 H 110 H (75-99) mg/dL Calcium (8.4-10.2) mg/dL Total Protein (6.3-8.2) g/dL Albumin (3.5-5.0) g/dL 10/19/19 10/19/19 Range/Units 07:02 11:33 RBC (3.80-5.40) m/uL Hgb (11.4-16.0) gm/dL Hct (34.0-46.0) % MCV (80.0-100.0) fL MCH (25.0-35.0) pg RDW (11.5-15.5) % Lymphocytes # (1.0-4.8) k/uL Macrocytosis Sodium 129 L (137-145) mmol/L Chloride 95 L (98-107) mmol/L BUN 19 H (7-17) mg/dL Creatinine 2.11 H (0.52-1.04) mg/dL POC Glucose (mg/dL) 111 H (75-99) mg/dL Calcium 8.2 L (8.4-10.2) mg/dL Total Protein 5.3 L (6.3-8.2) g/dL Albumin 2.7 L (3.5-5.0) g/dL Assessment and Plan Plan: #1 severe shortness of breath improved most likely related to fluid overload patient related to acute on chronic systolic CHF secondary to end-stage renal disease was started on IV Lasix and consultation for nephrology was initiated to assess if patient needs to be started on hemodialysis during this admission. Patient and family are still waiting to make final decision in regards to hemodialysis. Would like to discuss with Dr. Wellington prior to making decision. Per nephrology IV Lasix has been DC'd and patient switched to Demadex. Hemodialysis access achieved on 10/09/[address] Collado. Patient will be on Monday hemodialysis schedule #2 abnormal chest x-ray revealing evidence of hilar fullness, will continue to monitor and repeat chest x-ray once fluid overload has resolved #3 indeterminate VQ scan, doubt pulmonary embolism, bilateral lower extremity Doppler was ordered. Venous Doppler of lower extremities showing no active DVT in the lower extremity. Persistent long segment thrombus in the right lower x- ray has been present on prior studies. Doppler study completed of upper extremities are negative for DVT in either extremity #4 underlying history of chronic atrial fibrillation #5 underlying history of chronic kidney disease stage IV #6 underlying history of diabetes mellitus controlled #7 underlying history of hypertension #8 underlying history of anemia of chronic renal disease #9. Urinary tract infection. Patient started on Rocephin. Urine culture completed and negative. Antibiotics will be DC'd #10 nausea and vomiting. Diet increased. Symptoms reappearing on 10/17/2019. Discussed case with surgical nurse practitioner plans for HIDA scan and abdominal ultrasound #11. Chronic cholecystitis with calculs. Patient was evaluated by surgical services. Recommending at this time resuming low-fat diet monitor symptoms no antibiotics needed #12. Increased bleeding at hemodialysis site. Eliquis currently on hold per cardiology. DDAVP was given per nephrology. We'll continue to monitor site. Patient has been started on anticoagulation Xarelto no signs of bleeding at hemodialysis site DVT prophylaxis SCDs. GI prophylaxis Protonix Pulmonary cardiology and nephrology following Increased abdominal discomfort and nausea. Surgical services reconsulted
--- NOTE | 2019-10-19 13:30 | P.PN ---
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 Indeterminate VQ scan less likely PE Chronic renal failure 10/19/2019, patient seen and evaluated examined during the rounds labs reviewed medications reviewed, respiratory status remains stable, patient has been cleared for solid diet now, being observed closely for chronic cholecystitis, dialysis plan 10/18/2019, patient seen eval examined during the rounds labs reviewed medicati ons reviewed care plan discussed with the patient at length patient is has been doing problems with abdominal distention and an uncomfortable feeling, shE has been nothing by mouth, general surgery following, patient continued to get hemodialysis Monday10/13/2019, patient seen eval examined during the rounds labs reviewed medications reviewed care plan discussed, denies any chest pain and shortness of breath but however patient is not feeling well she is having hiccups with d yspepsia, patient is on clear liquid diet ultrasound of abdomen planned, the catheter site is intact but however some oozing is noted which is been stabilized vascular surgery following 10/12/2019, patient seen eval reexamined during the rounds labs reviewed medications reviewed sitting upright in the bed breathing well, patient had episode of the of [facility] nauseous and throw up once now she is improved now and during that process she has a small hemorrhage of the catheter site, hemostasis achieved no active bleeding is present, vascular surgery has been notified by staff 10/11/2019, patient seen eval examined during the rounds labs reviewed medications reviewed care plan discussed sitting upright on the bed undergoing hemodialysis today is the second cycle hemodialysis denies any shortness of breath or chest pain 10/10/2019, patient seen eval examined during the rounds labs reviewed medications reviewed patient is undergoing hemodialysis doing well denies any chest pain hemodynamic status stable breathing more comfortably 10/09/2019, patient seen eval examined during the rounds labs reviewed medications reviewed respiratory status stable patient is a [address] ment later on today hemodynamic shoes stable patient is a going to undergo hemodialysis as planned by renal services, labs are reviewed BUN/creatinine is elevated 85/3.07, blood pressure in the lower side, oxygen saturation is 99% on room air 10/08/2019, patient seen eval reexamined during the rounds sitting upright on the chest on the chair breathing comfortably denies any chest pain, due to chr onic renal failure renal services to hemodialysis patient has been taken off of anticoagulation dialysis catheter is being planned for tomorrow, duplex ultrasound of the lower extremity revealed a chronic old thrombosis in the near and right lower extremity left is negative up her extremities are also negative for acute DVT This is a 84-year-old female with chronic atrial fibrillation well-known to me patient has been on chronic long-term lifelong anticoagulation she has chronic atrial fibrillation small pleural effusion, she has a congestive heart failure due to that, patient this morning woke up with chronic stable shortness of breath and some left-sided chest pain improved with applying pressure, came into emergency department, patient has been recently discharged from the hospital yes terday, patient underwent a chest x-ray revealed prominent right hilum and cardiomegaly no pleural effusion seen, VQ scan shows matching defects, labs significant for elevated BUN/creatinine of 96 and 2.87, BNP is over 15,000, Objective - Vital Signs Vital signs: Vital Signs Temp 98.1 F 10/19/19 07:00 Pulse 81 10/19/19 07:41 Resp 14 10/19/19 07:41 BP 102/55 10/19/19 07:00 Pulse Ox 97 10/19/19 07:00 Intake & Output 10/18/19 10/19/19 10/19/19 18:59 06:59 18:59 Intake Total 200 Output Total 1500 Balance -1300 Weight 82 kg Intake: Oral 200 Output: Hemodialysis 1500 Other: Voiding Method Toilet Toilet Toilet Diaper # Voids 3 1 # Bowel Movements 1 - Exam - Constitutional General appearance: average body habitus, disheveled, no acute distress - EENT Eyes: EOMI, PERRLA Ears: bilateral: normal - Neck Carotids: bilateral: upstroke normal - Respiratory Respiratory: bilateral: CTA - Cardiovascular Rhythm: regular Heart sounds: normal: S1, S2 - Gastrointestinal General gastrointestinal: decreased bowel sounds - Neurologic Neurologic: CNII-XII intact - Musculoskeletal Musculoskeletal: gait normal, generalized weakness, strength equal bilaterally - Psychiatric Psychiatric: A&O x's 3, appropriate affect, intact judgment & insight - Labs CBC & Chem 7: 10/19/19 07:02 10/19/19 07:02 Labs: Abnormal Lab Results - Last 24 Hours (Table) 10/18/19 10/18/19 10/19/19 Range/Units 17:06 21:09 07:02 RBC 2.53 L (3.80-5.40) m/uL Hgb 9.1 L (11.4-16.0) gm/dL Hct 29.4 L (34.0-46.0) % MCV 116.3 H (80.0-100.0) fL MCH 36.1 H (25.0-35.0) pg RDW 17.4 H (11.5-15.5) % Lymphocytes # 0.8 L (1.0-4.8) k/uL Macrocytosis Marked A Sodium (137-145) mmol/L Chloride (98-107) mmol/L BUN (7-17) mg/dL Creatinine (0.52-1.04) mg/dL POC Glucose (mg/dL) 120 H 110 H (75-99) mg/dL Calcium (8.4-10.2) mg/dL Total Protein (6.3-8.2) g/dL Albumin (3.5-5.0) g/dL 10/19/19 10/19/19 Range/Units 07:02 11:33 RBC (3.80-5.40) m/uL Hgb (11.4-16.0) gm/dL Hct (34.0-46.0) % MCV (80.0-100.0) fL MCH (25.0-35.0) pg RDW (11.5-15.5) % Lymphocytes # (1.0-4.8) k/uL Macrocytosis Sodium 129 L (137-145) mmol/L Chloride 95 L (98-107) mmol/L BUN 19 H (7-17) mg/dL Creatinine 2.11 H (0.52-1.04) mg/dL POC Glucose (mg/dL) 111 H (75-99) mg/dL Calcium 8.2 L (8.4-10.2) mg/dL Total Protein 5.3 L (6.3-8.2) g/dL Albumin 2.7 L (3.5-5.0) g/dL Assessment and Plan Assessment: Intermittent abdominal pain, general surgery of following Chronic renal failure likely cardiorenal Abnormal x-ray with hilar fullness Chronic atrial fibrillation on lifelong anticoagulation with his Xarelto Indeterminate VQ scan less likely PE Chronic pleural effusion Plan: For hemodialysis per renal services Continue anticoagulation Reviewed duplex ultrasound of both upper and lower extremity Follow clinical course closely Resume anticoagulation post dialysis catheter placement, Computed tomography scan of the chest to be performed once patient is stable without dye t Time with Patient: Greater than 30
[2019-10-19 16:56] LABS: Glucose,Whole Blood 126 mg/dL (75-99)
[2019-10-19] MEDS: ONDANSETRON 4 MG/2 ML VIAL IVP PRN (18:03)
[2019-10-19 19:59] LABS: Glucose,Whole Blood 124 mg/dL (75-99)
[2019-10-20 06:46] LABS: Anisocytosis Slight; Basophils % (A) 0 %; Eosinophils # (A) 0.2 k/uL (0-0.7); Eosinophils % (A) 2 %; HCT 29.8 % (34.0-46.0); HGB 9.4 gm/dL (11.4-16.0); Hypochromasia Slight; Lymphocytes % (A) 16 %; MCH 35.8 pg (25.0-35.0); MCHC 31.4 g/dL (31.0-37.0); Mean Platelet Volume 8.6; Monocytes # (A) 0.5 k/uL (0-1.0); Monocytes % (A) 7 %; Neutrophils # (A) 4.7 k/uL (1.3-7.7); Neutrophils % (A) 71 %; Platelet Count 158 k/uL (150-450); RBC 2.62 m/uL (3.80-5.40); RDW 17.3 % (11.5-15.5); WBC 6.6 k/uL (3.8-10.6)
[2019-10-20 06:56] LABS: Glucose,Whole Blood 96 mg/dL (75-99)
[2019-10-20 06:58] LABS: Macrocytosis Marked
[2019-10-20 07:10] LABS: Albumin 2.7 g/dL (3.5-5.0); Calcium 8.5 mg/dL (8.4-10.2); Potassium 4.2 mmol/L (3.5-5.1); Total Bilirubin 0.6 mg/dL (0.2-1.3); Total Protein 5.4 g/dL (6.3-8.2)
[2019-10-20] MEDS: DORZOLAMIDE HCL 2% DROPS 10 ML BTL BOTH EYES SCH ×2 (08:20→22:00)
[2019-10-20] MEDS: BRIMONIDINE TARTRATE 0.2% DROPS 5 ML BTL BOTH EYES SCH ×2 (08:20→22:00)
[2019-10-20] MEDS: FERROUS SULFATE 325 MG TAB PO SCH (08:24)
[2019-10-20] MEDS: DOCUSATE 100 MG CAP PO SCH ×2 (08:24→22:01)
[2019-10-20] MEDS: ONDANSETRON 4 MG/2 ML VIAL IVP PRN (08:24)
[2019-10-20] MEDS: VIT A,C & E-LUTEIN-MINERALS 1 EACH TAB PO SCH ×2 (08:24→22:00)
[2019-10-20] MEDS: CHOLECALCIFEROL 1,000 UNIT TAB PO SCH (08:24)
[2019-10-20] MEDS: MIDODRINE 5 MG TAB PO SCH ×3 (08:24→23:21)
[2019-10-20] MEDS: METOPROLOL TARTRATE 25 MG TAB PO SCH ×3 (08:24→23:21)
[2019-10-20] MEDS: PANTOPRAZOLE 40 MG TABLET PO SCH (08:24)
[2019-10-20] MEDS: TORSEMIDE 20 MG TAB PO SCH (08:24)
[2019-10-20] MEDS: CALCIUM ACETATE 667 MG TAB PO SCH ×3 (08:24→17:09)
[2019-10-20] MEDS: CALCITRIOL 0.25 MCG CAP PO SCH (08:24)
[2019-10-20] MEDS: INSULIN ASPART (NovoLOG) 100 UNIT/ML VIAL SQ SCH ×4 (08:25→21:57)
[2019-10-20] MEDS: ALLOPURINOL 100 MG TAB PO SCH (08:25)
[2019-10-20] MEDS: NYSTATIN 100,000UNIT/GM CREAM 30 GM TUBE TOPICAL SCH ×2 (08:31→21:59)
--- NOTE | 2019-10-20 10:27 | P.PN ---
Subjective Progress Note Date: 10/20/19 Trina Carrillo, he is an 84-year-old female who was recently discharged from [facility], who presented to emergency room was a chief complaint of worsening shortness of breath, sharp pain in the chest, and significant swelling in the bilateral lower extremity, she was evaluated in emergency room and was admitted to telemetry floor for further evaluation and treatment BNP was elevated at 15,800 patient has known history of chronic renal failure with elevated BUN and creatinine she was evaluated by nephrology last admission and decision was made to start hemodialysis soon however patient condition deteriorated fast and patient and her family decided to return to emergency room. Due to shortness of breath patient had a VQ scan done in the emergency room, there was no clear evidence of any pulmonary embolism, there was matching ventilation and perfusion defects and the scan was read as intermediate probability for pulmonary embolus. Consultation for cardiology, pulmonary, nephrology were initiated in the emergency room. Patient was seen and examined on the telemetry floor, she is alert and oriented 3 in no apparent distress, at this time her chest pain has resolved and her shortness of breath has improved, she is still having significant bilateral lower extremity edema, otherwise she denies any complaints there is no fever or chills no headache or dizziness no chest pain, no cough no nausea or vomiting no abdominal pain no diarrhea no burning with urination no frequency or urgency no hematuria. On 10/07/2019 patient is alert and oriented 3. Patient does reports improvement with edema and shortness of breath. Patient remains on Lasix 40 every 8 hours. Patient still having some mild chest discomfort. Cardiology nephrology and pulmonary services are following. Venous Doppler was negative for DVTs. Urine culture has been ordered. On 10/08/2019 patient is alert and oriented 3. Family at bedside. Patient remains on IV Lasix. Plans for possible inpatient hemodialysis per nephrology recommendation. Family requesting to speak to Dr. Wellington in regards to VQ scan results before proceeding with hemodialysis. IV Lasix will be DC'd per nephrology and Demadex 20 mg daily ordered. Patient reports improvement with shortness of breath and chest pain. Per cardiology services anticoagulation has been switched from xarelto to eliquis. On 10/09/2019 patient is alert and oriented 3. Daughter at bedside. Patient has been started on Demadex IV Lasix DC'd plans for hemodialysis catheter access today per Dr. Collado anticoagulation currently on hold. Patient denies chest pain or shortness of breath. Patient denies nausea vomiting or diarrhea. Aishwarya ent denies any urinary burning or frequency On 10/10/2019 patient is alert and oriented 3. Patient underwent hemodialysis catheter placement on 10/09/[address] Collado. Plans for hemodialysis today and for the next 3 days per nephrology. At this time patient is tired resting in bed. Patient denies any chest pain does report some discomfort around hemodialysis site. Patient denies any urinary burning or frequency On 10/11/2019 patient alert and oriented 3. Patient under went first chronic hemodialysis yesterday 1 L off. Plan for patient to get hemodialysis today and tomorrow with close monitoring of blood pressure and patient. Patient is alert and oriented. Patient denies chest pain. Patient denies shortness breath. Patient denies nausea vomiting or diarrhea. Patient denies any urinary burning or frequency On 10/12/2019 patient was seen and examined on the medical floor she is alert and oriented 3 in no apparent distress she accidentally pulled her dialysis catheter partially at night there is some bleeding around the catheter site otherwise she denies any complaints there is no fever or chills no headache or dizziness no chest pain no shortness of breath no cough no nausea or vomiting no abdominal pain no diarrhea and no urinary symptoms. On 10/13/2019 patient was seen and examined on the medical floor she is complaining of nausea and vomiting and feeling tired otherwise she denies any complaints, there is no fever or chills no headache or dizziness no chest pain no shortness of breath no cough no abdominal pain no diarrhea no burning with urination no frequency or urgency and no hematuria. On 10/14/2019 patient is alert and oriented 3. Patient is currently getting hemodialysis. Patient still having oozing from hemodialysis site. She is main tained on eliquis, dosage has been decreased per cardiology. Nausea and vomiting have improved. Patient denies chest pain or shortness of breath. Patient denies any urinary burning or frequency On 10/15/2019 patient is alert and oriented 3. Patient currently sitting up in chair. Patient having some oozing at hemodialysis site. Patient was dilated by Dr. Collado. Patient states coagulation currently on hold did receive DDAVP for the oozing per nephrology. Patient also evaluated by Dr. ferrer due to chronic cholecystitis continue to monitor symptoms at this time plans for surgical inter vention. Patient denies chest pain or shortness breath. Patient denies nausea vomiting or diarrhea. Patient denies any urinary burning or frequency On 10/16/2019 patient's alert and oriented 3. Patient currently getting hemodialysis. Pressure dressing remains on hemodialysis site awaiting for Dr. Collado input. Patient will hopefully be restarted back on anticoagulation in the next 24-48 hours only to monitor site for bleeding. At this time patient denies chest pain or shortness of breath. Patient denies nausea vomiting or diarrhea. Patient denies any urinary burning or frequency On 10/17/2019 patient's alert and oriented 3. Patient having episode of nausea post dinner last evening. Patient also having increased abdominal discomfort and distention today. Did discuss case with surgical nurse practitioner. Case was discussed with Dr. Vuong. Plans for HIDA scan and abdominal x-ray. Patient was also started back on Xarelto. Hemodialysis site showing no signs of bleeding. We'll continue to monitor. On 10/18/2019 patient's alert and oriented 3. Patient has been nothing by mouth per surgical services. Abdominal discomfort and nausea have subsided. HIDA scan and x-ray completed surgical services to review. Patient is currently getting hemodialysis. Patient denies chest pain or shortness of breath. Patient denies nausea vomiting or diarrhea. Patient denies any urinary burning or frequency On 10/19/2019 patient was seen and examined on the medical floor she is alert and oriented 3 in no apparent distress she was just restarted on soft diet which she tolerated well at this time she is scheduled for HIDA scan on Monday otherwise she is receiving hemodialysis and is tolerating well there is no fever or chills no headache or dizziness no chest pain no shortness of breath no cough no nausea or vomiting no abdominal pain no diarrhea no burning was urination no frequency or urgency no hematuria On 10/20/2019 patient was seen and examined on the medical floor her daughter is present in the room, patient is still complaining of abdominal pain and sense of fullness after she eats otherwise there is no complaints at this time there is no fever or chills no headache or dizziness no chest pain no shortness of breath no cough no nausea or vomiting no diarrhea no burning with urination no frequency or urgency no hematuria Objective - Vital Signs Vital signs: Vital Signs Temp 97.9 F 10/20/19 07:00 Pulse 80 10/20/19 07:23 Resp 12 10/20/19 07:23 BP 117/59 10/20/19 07:00 Pulse Ox 97 10/20/19 07:00 Intake & Output 10/19/19 10/20/19 10/20/19 18:59 06:59 18:59 Intake Total 790 Balance 790 Weight 84 kg Intake: Oral 790 Other: Voiding Method Toilet Toilet Diaper Diaper # Voids 2 1 1 # Bowel Movements 2 2 2 # Emeses 1 1 - Exam In general patient is alert and oriented 3 in no apparent distress HEENT head normocephalic and atraumatic. Hemodialysis port right upper chest wall Neck is supple no JVD no goiter Chest exam reveals a scattered crackles bilaterally no wheezing Cardiac exam reveals regular heart sounds no gallops no murmurs Abdomen is soft nontender no organomegaly Extremity exam reveals 2+ edema no cyanosis or clubbing Neurological examination reveals no gross focal deficits - Labs CBC & Chem 7: 10/20/19 06:25 10/20/19 06:25 Labs: Abnormal Lab Results - Last 24 Hours (Table) 10/19/19 10/19/19 10/19/19 Range/Units 07:02 11:33 16:54 RBC 2.53 L (3.80-5.40) m/uL Hgb 9.1 L (11.4-16.0) gm/dL Hct 29.4 L (34.0-46.0) % MCV 116.3 H (80.0-100.0) fL MCH 36.1 H (25.0-35.0) pg RDW 17.4 H (11.5-15.5) % Lymphocytes # 0.8 L (1.0-4.8) k/uL Macrocytosis Marked A Sodium (137-145) mmol/L Chloride (98-107) mmol/L BUN (7-17) mg/dL Creatinine (0.52-1.04) mg/dL POC Glucose (mg/dL) 111 H 126 H (75-99) mg/dL Total Protein (6.3-8.2) g/dL Albumin (3.5-5.0) g/dL 10/19/19 10/20/19 10/20/19 Range/Units 19:57 06:25 06:25 RBC 2.62 L (3.80-5.40) m/uL Hgb 9.4 L (11.4-16.0) gm/dL Hct 29.8 L (34.0-46.0) % MCV 114.0 H (80.0-100.0) fL MCH 35.8 H (25.0-35.0) pg RDW 17.3 H (11.5-15.5) % Lymphocytes # (1.0-4.8) k/uL Macrocytosis Marked A Sodium 127 L (137-145) mmol/L Chloride 93 L (98-107) mmol/L BUN 27 H (7-17) mg/dL Creatinine 2.59 H (0.52-1.04) mg/dL POC Glucose (mg/dL) 124 H (75-99) mg/dL Total Protein 5.4 L (6.3-8.2) g/dL Albumin 2.7 L (3.5-5.0) g/dL Assessment and Plan Plan: #1 severe shortness of breath improved most likely related to fluid overload patient related to acute on chronic systolic CHF secondary to end-stage renal disease was started on IV Lasix and consultation for nephrology was initiated to assess if patient needs to be started on hemodialysis during this admission. Patient and family are still waiting to make final decision in regards to hemodialysis. Would like to discuss with Dr. Wellington prior to making decision. Per nephrology IV Lasix has been DC'd and patient switched to Demadex. Hemodialysis access achieved on 10/09/[address] Collado. Patient will be on Monday hemodialysis schedule #2 abnormal chest x-ray revealing evidence of hilar fullness, will continue to m onitor and repeat chest x-ray once fluid overload has resolved #3 indeterminate VQ scan, doubt pulmonary embolism, bilateral lower extremity Doppler was ordered. Venous Doppler of lower extremities showing no active DVT in the lower extremity. Persistent long segment thrombus in the right lower x- ray has been present on prior studies. Doppler study completed of upper extremities are negative for DVT in either extremity #4 underlying history of chronic atrial fibrillation #5 underlying history of chronic kidney disease stage IV #6 underlying history of diabetes mellitus controlled #7 underlying history of hypertension #8 underlying history of anemia of chronic renal disease #9. Urinary tract infection. Patient started on Rocephin. Urine culture completed and negative. Antibiotics will be DC'd #10 nausea and vomiting. Diet increased. Symptoms reappearing on 10/17/2019. Discussed case with surgical nurse practitioner plans for HIDA scan and abdominal ultrasound #11. Chronic cholecystitis with calculs. Patient was evaluated by surgical services. Recommending at this time resuming low-fat diet monitor symptoms no antibiotics needed #12. Increased bleeding at hemodialysis site. Eliquis currently on hold per cardiology. DDAVP was given per nephrology. We'll continue to monitor site. Patient has been started on anticoagulation Xarelto no signs of bleeding at hemodialysis site DVT prophylaxis SCDs. GI prophylaxis Protonix Pulmonary cardiology and nephrology following Increased abdominal discomfort and nausea. Surgical services reconsulted Patient was evaluated again by Dr. Ferrer today, he held Xarelto in anticipation of any surgical intervention HIDA scan is scheduled for tomorrow
--- NOTE | 2019-10-20 10:32 | P.PN ---
Subjective Progress Note Date: 10/20/19 Principal diagnosis: Nausea and vomiting Patient was seen earlier in her admission. We were reconsulted on 10/16. Patient was seen by my nurse practitioner on 10/16 and 10/17. Somehow her name did not end up back on my personal list and I did not personally see the patient until this morning. Yesterday when I realized that we had missed her during rounds I contacted the patient's daughter who was then present at the bedside throughout her hospital stay and explained the situation. I know this patient quite well. She began experiencing nausea vomiting and bloating again on . After the episodes of vomiting and with bowel rest her symptoms once again improved. She has been having intermittent bowel movements. A HIDA scan had been ordered as well as an x-ray of the abdomen. HIDA scan showed nonvisualization of the gallbladder and x-rays showed ileus pattern. Monday and Monday the patient's symptoms had again resolved. Today she is feeling somewhat nauseated. For the first time she is localizing her abdominal pain to the right upper quadrant but states it is quite mild. No vomiting today. She did eat most of her breakfast. She did have a bowel movement this morning. White blood cell count is normal. Liver enzymes normal. Remains on Xarelto. Dialysis scheduled for tomorrow. Objective - Vital Signs Vital signs: Vital Signs Temp 97.9 F 10/20/19 07:00 Pulse 80 10/20/19 07:23 Resp 12 10/20/19 07:23 BP 117/59 10/20/19 07:00 Pulse Ox 97 10/20/19 07:00 Intake & Output 10/19/19 10/20/19 10/20/19 18:59 06:59 18:59 Intake Total 790 Balance 790 Weight 84 kg Intake: Oral 790 Other: Voiding Method Toilet Toilet Diaper Diaper # Voids 2 1 1 # Bowel Movements 2 2 2 # Emeses 1 1 - Exam Abdomen: Soft, mild distention, mild right upper quadrant tenderness - Labs CBC & Chem 7: 10/20/19 06:25 10/20/19 06:25 Labs: Abnormal Lab Results - Last 24 Hours (Table) 10/19/19 10/19/19 10/19/19 Range/Units 07:02 11:33 16:54 RBC 2.53 L (3.80-5.40) m/uL Hgb 9.1 L (11.4-16.0) gm/dL Hct 29.4 L (34.0-46.0) % MCV 116.3 H (80.0-100.0) fL MCH 36.1 H (25.0-35.0) pg RDW 17.4 H (11.5-15.5) % Lymphocytes # 0.8 L (1.0-4.8) k/uL Macrocytosis Marked A Sodium (137-145) mmol/L Chloride (98-107) mmol/L BUN (7-17) mg/dL Creatinine (0.52-1.04) mg/dL POC Glucose (mg/dL) 111 H 126 H (75-99) mg/dL Total Protein (6.3-8.2) g/dL Albumin (3.5-5.0) g/dL 10/19/19 10/20/19 10/20/19 Range/Units 19:57 06:25 06:25 RBC 2.62 L (3.80-5.40) m/uL Hgb 9.4 L (11.4-16.0) gm/dL Hct 29.8 L (34.0-46.0) % MCV 114.0 H (80.0-100.0) fL MCH 35.8 H (25.0-35.0) pg RDW 17.3 H (11.5-15.5) % Lymphocytes # (1.0-4.8) k/uL Macrocytosis Marked A Sodium 127 L (137-145) mmol/L Chloride 93 L (98-107) mmol/L BUN 27 H (7-17) mg/dL Creatinine 2.59 H (0.52-1.04) mg/dL POC Glucose (mg/dL) 124 H (75-99) mg/dL Total Protein 5.4 L (6.3-8.2) g/dL Albumin 2.7 L (3.5-5.0) g/dL Assessment and Plan (1) Chronic cholecystitis with calculus Narrative/Plan: 84-year-old female with intermittent episodes of nausea and vomiting. Now she is admitting to/complaining of mild right upper quadrant discomfort. Symptoms could be simply related to acute cholecystitis however given the complaints of bloating with significant episodes of vomiting I would like to exclude bowel obstruction given her history of previous intermittent SBO. We'll order small bowel series for tomorrow morning. If that study is normal would recommend cholecystectomy despite the patient being high risk. Attempt would be made at laparoscopic approach however open approach is very likely in her case. We'll hold Xarelto in the event that surgery is required. Patient may require IV heparin drip starting tomorrow morning. Nothing by mouth after midnight. Current Visit: Yes Status: Acute Code(s): K80.10 - CALCULUS OF GALLBLADDER W CHRONIC CHOLECYST W/O OBSTRUCTION SNOMED Code(s): 80458105
--- NOTE | 2019-10-20 11:25 | P.PN ---
Subjective Progress Note Date: 10/20/19 Principal diagnosis: This is a 89-year-old female with ESRD on dialysis Monday admitted with abdominal discomfort. Workup has shown a positive HIDA scan she is under the care of is surgery Department and a workup for small bowel obstruction is being contemplated. She is moving her bowels no nausea vomiting pain is in the epigastric area. No fever chills no cough no shortness of breath She is known with atrial fibrillation, her anticoagulant are being held because of the possibility of needing surgery. She is known with coronary artery disease, diabetes mellitus with DVT in the past macular degeneration and known with gallstones. Objective - Vital Signs Vital signs: Vital Signs Temp 97.9 F 10/20/19 07:00 Pulse 80 10/20/19 07:23 Resp 12 10/20/19 07:23 BP 117/59 10/20/19 07:00 Pulse Ox 97 10/20/19 07:00 Intake & Output 10/19/19 10/20/19 10/20/19 18:59 06:59 18:59 Intake Total 790 Balance 790 Weight 84 kg Intake: Oral 790 Other: Voiding Method Toilet Toilet Diaper Diaper # Voids 2 1 1 # Bowel Movements 2 2 2 # Emeses 1 1 Examination is awake alert oriented comfortable sitting in a chair HEENT exam no JVP neck is supple no facial asymmetry Lungs are clear to auscultation good air entry bilaterally Heart sounds are significant for atrial fibrillation no murmur rub gallop Abdomen soft nontender except in the epigastric area on deep palpation No masses are felt Extremity exam was mild edema Neurologically awake alert oriented Last dialysis was on Monday 2 days ago and she tolerated 1500 mL ultrafiltration - Labs CBC & Chem 7: 10/20/19 06:25 10/20/19 06:25 Labs: Abnormal Lab Results - Last 24 Hours (Table) 10/19/19 10/19/19 10/19/19 Range/Units 07:02 11:33 16:54 RBC 2.53 L (3.80-5.40) m/uL Hgb 9.1 L (11.4-16.0) gm/dL Hct 29.4 L (34.0-46.0) % MCV 116.3 H (80.0-100.0) fL MCH 36.1 H (25.0-35.0) pg RDW 17.4 H (11.5-15.5) % Lymphocytes # 0.8 L (1.0-4.8) k/uL Macrocytosis Marked A Sodium (137-145) mmol/L Chloride (98-107) mmol/L BUN (7-17) mg/dL Creatinine (0.52-1.04) mg/dL POC Glucose (mg/dL) 111 H 126 H (75-99) mg/dL Total Protein (6.3-8.2) g/dL Albumin (3.5-5.0) g/dL 10/19/19 10/20/19 10/20/19 Range/Units 19:57 06:25 06:25 RBC 2.62 L (3.80-5.40) m/uL Hgb 9.4 L (11.4-16.0) gm/dL Hct 29.8 L (34.0-46.0) % MCV 114.0 H (80.0-100.0) fL MCH 35.8 H (25.0-35.0) pg RDW 17.3 H (11.5-15.5) % Lymphocytes # (1.0-4.8) k/uL Macrocytosis Marked A Sodium 127 L (137-145) mmol/L Chloride 93 L (98-107) mmol/L BUN 27 H (7-17) mg/dL Creatinine 2.59 H (0.52-1.04) mg/dL POC Glucose (mg/dL) 124 H (75-99) mg/dL Total Protein 5.4 L (6.3-8.2) g/dL Albumin 2.7 L (3.5-5.0) g/dL Assessment and Plan Assessment: Impression 1. ESRD on dialysis Monday, usually 3 and half Hours through a permacath right 2. Admitted with chest pain, epigastric discomfort and was found to have a positive HIDA scan and a gallstone. Possibility of surgery being contemplated. Waiting for a rule out small bowel obstruction per surgical service 3. Diabetes mellitus 4. Mild edema 5. History of coronary artery disease, atrial fibrillation controlled ventricular response. 6. Mild hyponatremia sodium is 1.7 postdialysis, etiology is ESRD and water intake 7. Anemia hemoglobin is 9.4 slightly below target Recommendation 1. Will dialyze her tomorrow. We will take off 2 L or 20 half hours. 2. Check iron saturation. 3. Start Aranesp 40 mics every 7 days
[2019-10-20 11:30] LABS: Glucose,Whole Blood 122 mg/dL (75-99)
[2019-10-20] MEDS: DARBEPOETIN ALFA 40 MCG/0.4 ML SYRINGE SQ SCH (11:56)
--- NOTE | 2019-10-20 12:15 | P.PN ---
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 Indeterminate VQ scan less likely PE Chronic renal failure 10/20/2019, patient seen eval examined during the rounds, intermittent abdominal pain is concerned however denies any chest pain shortness of breath, general surgery has been following 10/19/2019, patient seen and evaluated examined during the rounds labs reviewed medications reviewed, respiratory status remains stable, patient has been cleared for solid diet now, being observed closely for chronic cholecystitis, dialysis plan 10/18/2019, patient seen eval examined during the rounds labs reviewed medications reviewed care plan discussed with the patient at length patient is has been doing problems with abdominal distention and an uncomfortable feeling, shE has been nothing by mouth, general surgery following, patient continued to get hemodialysis Monday10/13/2019, patient seen eval examined during the rounds labs reviewed medications reviewed care plan discussed, denies any chest pain and shortness of breath but however patient is not feeling well she is having hiccups with dyspepsia, patient is on clear liquid diet ultrasound of abdomen planned, the catheter site is intact but however some oozing is noted which is been stabilized vascular surgery following 10/12/2019, patient seen eval reexamined during the rounds labs reviewed medications reviewed sitting upright in the bed breathing well, patient had episode of the of [facility] nauseous and throw up once now she is improved now and during that process she has a small hemorrhage of the catheter site, hemostasis achieved no active bleeding is present, vascular surgery has been notified by staff 10/11/2019, patient seen eval examined during the rounds labs reviewed medications reviewed care plan discussed sitting upright on the bed undergoing hemodialysis today is the second cycle hemodialysis denies any shortness of breath or chest pain 10/10/2019, patient seen eval examined during the rounds labs reviewed medic ations reviewed patient is undergoing hemodialysis doing well denies any chest pain hemodynamic status stable breathing more comfortably 10/09/2019, patient seen eval examined during the rounds labs reviewed medications reviewed respiratory status stable patient is a 4 permacath placement later on today hemodynamic shoes stable patient is a going to undergo hemodialysis as planned by renal services, labs are reviewed BUN/creatinine is elevated 85/3.07, blood pressure in the lower side, oxygen saturation is 99% on room air 10/08/2019, patient seen eval reexamined during the rounds sitting upright on the chest on the chair breathing comfortably denies any chest pain, due to chronic renal failure renal services to hemodialysis patient has been taken off of anticoagulation dialysis catheter is being planned for tomorrow, duplex ultrasound of the lower extremity revealed a chronic old thrombosis in the near and right lower extremity left is negative up her extremities are also negative for acute DVT This is a 84-year-old female with chronic atrial fibrillation well-known to me patient has been on chronic long-term lifelong anticoagulation she has chronic atrial fibrillation small pleural effusion, she has a congestive heart failure due to that, patient this morning woke up with chronic stable shortness of breath and some left-sided chest pain improved with applying pressure, came into emergency department, patient has been recently discharged from the hospital yesterday, patient underwent a chest x-ray revealed prominent right hilum and cardiomegaly no pleural effusion seen, VQ scan shows matching defects, labs significant for elevated BUN/creatinine of 96 and 2.87, BNP is over 15,000, Objective - Vital Signs Vital signs: Vital Signs Temp 97.9 F 10/20/19 07:00 Pulse 80 10/20/19 07:23 Resp 12 10/20/19 07:23 BP 117/59 10/20/19 07:00 Pulse Ox 97 10/20/19 07:00 Intake & Output 10/19/19 10/20/19 10/20/19 18:59 06:59 18:59 Intake Total 790 Balance 790 Weight 84 kg Intake: Oral 790 Other: Voiding Method Toilet Toilet Diaper Diaper # Voids 2 1 1 # Bowel Movements 2 2 2 # Emeses 1 1 - Exam - Constitutional General appearance: average body habitus, disheveled, no acute distress - EENT Eyes: EOMI, PERRLA Ears: bilateral: normal - Neck Carotids: bilateral: upstroke normal - Respiratory Respiratory: bilateral: CTA - Cardiovascular Rhythm: regular Heart sounds: normal: S1, S2 - Gastrointestinal General gastrointestinal: decreased bowel sounds - Neurologic Neurologic: CNII-XII intact - Musculoskeletal Musculoskeletal: gait normal, generalized weakness, strength equal bilaterally - Psychiatric Psychiatric: A&O x's 3, appropriate affect, intact judgment & insight - Labs CBC & Chem 7: 10/20/19 06:25 10/20/19 06:25 Labs: Abnormal Lab Results - Last 24 Hours (Table) 10/19/19 10/19/19 10/19/19 Range/Units 07:02 16:54 19:57 RBC 2.53 L (3.80-5.40) m/uL Hgb 9.1 L (11.4-16.0) gm/dL Hct 29.4 L (34.0-46.0) % MCV 116.3 H (80.0-100.0) fL MCH 36.1 H (25.0-35.0) pg RDW 17.4 H (11.5-15.5) % Lymphocytes # 0.8 L (1.0-4.8) k/uL Macrocytosis Marked A Sodium (137-145) mmol/L Chloride (98-107) mmol/L BUN (7-17) mg/dL Creatinine (0.52-1.04) mg/dL POC Glucose (mg/dL) 126 H 124 H (75-99) mg/dL Total Protein (6.3-8.2) g/dL Albumin (3.5-5.0) g/dL 10/20/19 10/20/19 10/20/19 Range/Units 06:25 06:25 11:28 RBC 2.62 L (3.80-5.40) m/uL Hgb 9.4 L (11.4-16.0) gm/dL Hct 29.8 L (34.0-46.0) % MCV 114.0 H (80.0-100.0) fL MCH 35.8 H (25.0-35.0) pg RDW 17.3 H (11.5-15.5) % Lymphocytes # (1.0-4.8) k/uL Macrocytosis Marked A Sodium 127 L (137-145) mmol/L Chloride 93 L (98-107) mmol/L BUN 27 H (7-17) mg/dL Creatinine 2.59 H (0.52-1.04) mg/dL POC Glucose (mg/dL) 122 H (75-99) mg/dL Total Protein 5.4 L (6.3-8.2) g/dL Albumin 2.7 L (3.5-5.0) g/dL Assessment and Plan Assessment: Intermittent abdominal pain, general surgery of following Chronic cholecystitis/cholelithiasis Chronic renal failure likely cardiorenal Abnormal x-ray with hilar fullness Chronic atrial fibrillation on lifelong anticoagulation with his Xarelto Indeterminate VQ scan less likely PE Chronic pleural effusion Plan: For hemodialysis per renal services Continue anticoagulation Reviewed duplex ultrasound of both upper and lower extremity Follow clinical course closely Resume anticoagulation post dialysis catheter placement, Computed tomography scan of the chest to be performed once patient is stable without dye t Time with Patient: Greater than 30
[2019-10-20] MEDS: LINAGLIPTIN 5 MG TABLET PO SCH (16:04)
[2019-10-20 16:42] LABS: Glucose,Whole Blood 109 mg/dL (75-99)
[2019-10-20 20:49] LABS: Glucose,Whole Blood 134 mg/dL (75-99)
[2019-10-21 06:59] LABS: Glucose,Whole Blood 95 mg/dL (75-99)
[2019-10-21] MEDS: INSULIN ASPART (NovoLOG) 100 UNIT/ML VIAL SQ SCH ×4 (07:06→20:35)
[2019-10-21 08:19] LABS: Anisocytosis Slight; Basophils % (A) 0 %; Eosinophils # (A) 0.1 k/uL (0-0.7); Eosinophils % (A) 3 %; HCT 29.3 % (34.0-46.0); HGB 9.3 gm/dL (11.4-16.0); Hypochromasia Slight; Lymphocytes % (A) 18 %; MCH 36.3 pg (25.0-35.0); MCHC 31.7 g/dL (31.0-37.0); MCV 114.3 fL (80.0-100.0); Macrocytosis Marked; Mean Platelet Volume 8.6; Monocytes # (A) 0.4 k/uL (0-1.0); Monocytes % (A) 7 %; Neutrophils # (A) 3.8 k/uL (1.3-7.7); Neutrophils % (A) 68 %; Platelet Count 170 k/uL (150-450); RBC 2.56 m/uL (3.80-5.40); RDW 17.1 % (11.5-15.5); WBC 5.6 k/uL (3.8-10.6)
[2019-10-21 08:37] LABS: Albumin 2.7 g/dL (3.5-5.0); Calcium 8.4 mg/dL (8.4-10.2); Potassium 3.9 mmol/L (3.5-5.1); Total Bilirubin 0.5 mg/dL (0.2-1.3); Total Protein 5.4 g/dL (6.3-8.2)
[2019-10-21 10:23] LABS: Poikilocytosis (M) Present
[2019-10-21] MEDS: METOPROLOL TARTRATE 25 MG TAB PO SCH ×3 (12:50→22:40)
[2019-10-21] MEDS: DORZOLAMIDE HCL 2% DROPS 10 ML BTL BOTH EYES SCH ×2 (12:50→20:34)
[2019-10-21] MEDS: MIDODRINE 5 MG TAB PO SCH ×3 (12:50→22:40)
[2019-10-21] MEDS: BRIMONIDINE TARTRATE 0.2% DROPS 5 ML BTL BOTH EYES SCH ×2 (12:50→20:34)
[2019-10-21] MEDS: ALLOPURINOL 100 MG TAB PO SCH (12:51)
[2019-10-21] MEDS: DOCUSATE 100 MG CAP PO SCH ×2 (12:51→20:34)
[2019-10-21] MEDS: FERROUS SULFATE 325 MG TAB PO SCH (12:51)
[2019-10-21] MEDS: PANTOPRAZOLE 40 MG TABLET PO SCH (12:51)
[2019-10-21] MEDS: CHOLECALCIFEROL 1,000 UNIT TAB PO SCH (12:51)
[2019-10-21] MEDS: NYSTATIN 100,000UNIT/GM CREAM 30 GM TUBE TOPICAL SCH ×2 (12:51→20:35)
[2019-10-21] MEDS: CALCIUM ACETATE 667 MG TAB PO SCH ×3 (12:51→17:56)
[2019-10-21] MEDS: TORSEMIDE 20 MG TAB PO SCH (12:52)
[2019-10-21] MEDS: VIT A,C & E-LUTEIN-MINERALS 1 EACH TAB PO SCH ×2 (12:52→20:35)
--- NOTE | 2019-10-21 12:53 | P.PN ---
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 Cintron for cholecystitis, 10/20/2019, patient seen eval examined during the rounds, intermittent abdominal pain is concerned however denies any chest pain shortness of breath, general surgery has been following 10/19/2019, patient seen and evaluated examined during the rounds labs reviewed medications reviewed, respiratory status remains stable, patient has been cleared for solid diet now, being observed closely for chronic cholecystitis, dialysis plan 10/18/2019, patient seen eval examined during the rounds labs reviewed medications reviewed care plan discussed with the patient at length patient is has been doing problems with abdominal distention and an uncomfortable feeling, shE has been nothing by mouth, general surgery following, patient continued to get hemodialysis Monday10/13/2019, patient seen eval examined during the rounds labs reviewed medications reviewed care plan discussed, denies any chest pain and shortness of breath but however patient is not feeling well she is having hiccups with dyspepsia, patient is on clear liquid diet ultrasound of abdomen planned, the catheter site is intact but however some oozing is noted which is been stabilized vascular surgery following 10/12/2019, patient seen eval reexamined during the rounds labs reviewed medications reviewed sitting upright in the bed breathing well, patient had episode of the of [facility] nauseous and throw up once now she is improved now and during that process she has a small hemorrhage of the catheter site, hemostasis achieved no active bleeding is present, vascular surgery has been notified by staff 10/11/2019, patient seen eval examined during the rounds labs reviewed medications reviewed care plan discussed sitting upright on the bed undergoing hemodialysis today is the second cycle hemodialysis denies any shortness of breath or chest pain 10/10/2019, patient seen eval examined during the rounds labs reviewed medications reviewed patient is undergoing hemodialysis doing well denies any chest pain hemodynamic status stable breathing more comfortably 10/09/2019, patient seen eval examined during the rounds labs reviewed medications reviewed respiratory status stable patient is a 4 permacath placement later on today hemodynamic shoes stable patient is a going to undergo hemodialysis as planned by renal services, labs are reviewed BUN/creatinine is elevated 85/3.07, blood pressure in the lower side, oxygen saturation is 99% on room air 10/08/2019, patient seen eval reexamined during the rounds sitting upright on the chest on the chair breathing comfortably denies any chest pain, due to chronic renal failure renal services to hemodialysis patient has been taken off of anticoagulation dialysis catheter is being planned for tomorrow, duplex ultrasound of the lower extremity revealed a chronic old thrombosis in the near and right lower extremity left is negative up her extremities are also negative for acute DVT This is a 84-year-old female with chronic atrial fibrillation well-known to me patient has been on chronic long-term lifelong anticoagulation she has chronic atrial fibrillation small pleural effusion, she has a congestive heart failure due to that, patient this morning woke up with chronic stable shortness of breath and some left-sided chest pain improved with applying pressure, came into emergency department, patient has been recently discharged from the hospital yesterday, patient underwent a chest x-ray revealed prominent right hilum and cardiomegaly no pleural effusion seen, VQ scan shows matching defects, labs significant for elevated BUN/creatinine of 96 and 2.87, BNP is over 15,000, Objective - Vital Signs Vital signs: Vital Signs Temp 98.3 F 10/21/19 07:00 Pulse 61 10/21/19 08:00 Resp 16 10/21/19 08:00 BP 115/59 10/21/19 07:00 Pulse Ox 96 10/21/19 07:00 Intake & Output 10/20/19 10/21/19 10/21/19 18:59 06:59 18:59 Intake Total 200 Balance 200 Weight 84.5 kg Intake: Oral 200 Other: Voiding Method Toilet Toilet Diaper Diaper # Voids 2 1 # Bowel Movements 1 # Emeses 1 - Exam - Constitutional General appearance: average body habitus, disheveled, no acute distress - EENT Eyes: EOMI, PERRLA Ears: bilateral: normal - Neck Carotids: bilateral: upstroke normal - Respiratory Respiratory: bilateral: CTA - Cardiovascular Rhythm: regular Heart sounds: normal: S1, S2 - Gastrointestinal General gastrointestinal: decreased bowel sounds - Neurologic Neurologic: CNII-XII intact - Musculoskeletal Musculoskeletal: gait normal, generalized weakness, strength equal bilaterally - Psychiatric Psychiatric: A&O x's 3, appropriate affect, intact judgment & insight - Labs CBC & Chem 7: 10/21/19 07:41 10/21/19 07:41 Labs: Abnormal Lab Results - Last 24 Hours (Table) 10/20/19 10/20/19 10/21/19 Range/Units 16:41 20:45 07:41 RBC 2.56 L (3.80-5.40) m/uL Hgb 9.3 L (11.4-16.0) gm/dL Hct 29.3 L (34.0-46.0) % MCV 114.3 H (80.0-100.0) fL MCH 36.3 H (25.0-35.0) pg RDW 17.1 H (11.5-15.5) % Macrocytosis Marked A Sodium (137-145) mmol/L Chloride (98-107) mmol/L BUN (7-17) mg/dL Creatinine (0.52-1.04) mg/dL POC Glucose (mg/dL) 109 H 134 H (75-99) mg/dL Total Protein (6.3-8.2) g/dL Albumin (3.5-5.0) g/dL 10/21/19 Range/Units 07:41 RBC (3.80-5.40) m/uL Hgb (11.4-16.0) gm/dL Hct (34.0-46.0) % MCV (80.0-100.0) fL MCH (25.0-35.0) pg RDW (11.5-15.5) % Macrocytosis Sodium 127 L (137-145) mmol/L Chloride 94 L (98-107) mmol/L BUN 33 H (7-17) mg/dL Creatinine 2.79 H (0.52-1.04) mg/dL POC Glucose (mg/dL) (75-99) mg/dL Total Protein 5.4 L (6.3-8.2) g/dL Albumin 2.7 L (3.5-5.0) g/dL Assessment and Plan Assessment: Intermittent abdominal pain, general surgery of following Chronic cholecystitis/cholelithiasis Chronic renal failure likely cardiorenal Abnormal x-ray with hilar fullness Chronic atrial fibrillation on lifelong anticoagulation with his Xarelto Indeterminate VQ scan less likely PE Chronic pleural effusion Plan: For hemodialysis per renal services Continue anticoagulation Reviewed duplex ultrasound of both upper and lower extremity Follow clinical course closely Resume anticoagulation post dialysis catheter placement, Computed tomography scan of the chest to be performed once patient is stable without dye t Time with Patient: Greater than 30
--- NOTE | 2019-10-21 13:35 | FL ---
Small bowel follow-through HISTORY: Distention, abdomen pain, possible small bowel obstruction Small bowel folds are within normal limits. There is distention of jejunal loops of bowel present on multiple images. Contrast does course to the colon however in just under 2 hours. Terminal ileum is n ot visualized. Inferior vena cava filter is noted incidentally. 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 Postop change noted in the left hip, screw from the acetabular component of the left hip art hroplasty does breach the acetabular cortex. Appendix is not seen. Surgical clips present in left hem ipelvis. Calcified gallstones are noted incidentally in the right upper quadrant. 43 seconds fluoroscopy time. 11 images obtained. IMPRESSION: Findings could possibly represent partial small bowel obstruction with bowel distention n oted in the left hemiabdomen. Follow-up as indicated.
--- NOTE | 2019-10-21 14:31 | P.PN ---
Subjective Progress Note Date: 10/21/19 Principal diagnosis: Nausea and vomiting Patient did well yesterday. She had no nausea or vomiting as the day progressed yesterday. She did tolerate her solid foods. Small bowel series was performed this morning. Contrast reached the colon inferiorly with time proximally 2 h ours. Dictation state cannot exclude partial small bowel obstruction however no site of narrowing clearly identified. Still having mild right upper quadrant pain today. Objective - Vital Signs Vital signs: Vital Signs Temp 98.3 F 10/21/19 07:00 Pulse 61 10/21/19 08:00 Resp 16 10/21/19 08:00 BP 115/59 10/21/19 07:00 Pulse Ox 96 10/21/19 07:00 Intake & Output 10/20/19 10/21/19 10/21/19 18:59 06:59 18:59 Intake Total 200 0 Balance 200 0 Weight 84.5 kg Intake: Oral 200 0 Other: Voiding Method Toilet Toilet Diaper Diaper # Voids 2 1 2 # Bowel Movements 1 # Emeses 1 - Exam Abdomen: Soft, nondistended, mild right upper quadrant tenderness - Labs CBC & Chem 7: 10/21/19 07:41 10/21/19 07:41 Labs: Abnormal Lab Results - Last 24 Hours (Table) 10/20/19 10/20/19 10/21/19 Range/Units 16:41 20:45 07:41 RBC 2.56 L (3.80-5.40) m/uL Hgb 9.3 L (11.4-16.0) gm/dL Hct 29.3 L (34.0-46.0) % MCV 114.3 H (80.0-100.0) fL MCH 36.3 H (25.0-35.0) pg RDW 17.1 H (11.5-15.5) % Macrocytosis Marked A Sodium (137-145) mmol/L Chloride (98-107) mmol/L BUN (7-17) mg/dL Creatinine (0.52-1.04) mg/dL POC Glucose (mg/dL) 109 H 134 H (75-99) mg/dL Total Protein (6.3-8.2) g/dL Albumin (3.5-5.0) g/dL 10/21/19 Range/Units 07:41 RBC (3.80-5.40) m/uL Hgb (11.4-16.0) gm/dL Hct (34.0-46.0) % MCV (80.0-100.0) fL MCH (25.0-35.0) pg RDW (11.5-15.5) % Macrocytosis Sodium 127 L (137-145) mmol/L Chloride 94 L (98-107) mmol/L BUN 33 H (7-17) mg/dL Creatinine 2.79 H (0.52-1.04) mg/dL POC Glucose (mg/dL) (75-99) mg/dL Total Protein 5.4 L (6.3-8.2) g/dL Albumin 2.7 L (3.5-5.0) g/dL Assessment and Plan (1) Chronic cholecystitis with calculus Narrative/Plan: Small bowel series results reviewed with the patient. No definitive bowel obs truction identified at this time. Nonvisualization of the gallbladder on recent HIDA scan along with her right upper quadrant pain makes chronic cholecystitis being the etiology for her intermittent vomiting episodes more likely. Options of cholecystectomy reviewed with her and her daughters. They are agreeable. We'll proceed with laparoscopic, possible open cholecystectomy tomorrow. Risks of bleeding, infection, bile leak, bile duct injury, retained common bile duct stone, trocar injury, conversion to an open procedure, postoperative ventilatory care, pulmonary and cardiac complications, hernia, anesthesia related complications were reviewed. The patient understands and wishes to proceed. Current Visit: Yes Status: Acute Code(s): K80.10 - CALCULUS OF GALLBLADDER W CHRONIC CHOLECYST W/O OBSTRUCTION SNOMED Code(s): 21319820
[2019-10-21 16:54] LABS: Glucose,Whole Blood 79 mg/dL (75-99)
[2019-10-21] MEDS: traMADol 50 MG TAB PO PRN (17:56)
[2019-10-21] MEDS: LINAGLIPTIN 5 MG TABLET PO SCH (17:56)
--- NOTE | 2019-10-21 18:25 | P.PN ---
Subjective Progress Note Date: 10/21/19 Trina Carrillo, he is an 84-year-old female who was recently discharged from [facility], who presented to emergency room was a chief complaint of worsening shortness of breath, sharp pain in the chest, and significant swelling in the bilateral lower extremity, she was evaluated in emergency room and was admitted to telemetry floor for further evaluation and treatment BNP was elevated at 15,800 patient has known history of chronic renal failure with elevated BUN and creatinine she was evaluated by nephrology last admission and decision was made to start hemodialysis soon however patient condition deteriorated fast and patient and her family decided to return to emergency room. Due to shortness of breath patient had a VQ scan done in the emergency room, there was no clear evidence of any pulmonary embolism, there was matching ventilation and perfusion defects and the scan was read as intermediate probability for pulmonary embolus. Consultation for cardiology, pulmonary, nephrology were initiated in the emergency room. Patient was seen and examined on the telemetry floor, she is alert and oriented 3 in no apparent distress, at this time her chest pain has resolved and her shortness of breath has improved, she is still having significant bilateral lower extremity edema, otherwise she denies any complaints there is no fever or chills no headache or dizziness no chest pain, no cough no nausea or vomiting no abdominal pain no diarrhea no burning with urination no frequency or urgency no hematuria. On 10/07/2019 patient is alert and oriented 3. Patient does reports improvement with edema and shortness of breath. Patient remains on Lasix 40 every 8 hours. Patient still having some mild chest discomfort. Cardiology nephrology and pulmonary services are following. Venous Doppler was negative for DVTs. Urine culture has been ordered. On 10/08/2019 patient is alert and oriented 3. Family at bedside. Patient remains on IV Lasix. Plans for possible inpatient hemodialysis per nephrology recommendation. Family requesting to speak to Dr. Wellington in regards to VQ scan results before proceeding with hemodialysis. IV Lasix will be DC'd per nephrology and Demadex 20 mg daily ordered. Patient reports improvement with shortness of breath and chest pain. Per cardiology services anticoagulation has been switched from xarelto to eliquis. On 10/09/2019 patient is alert and oriented 3. Daughter at bedside. Patient has been started on Demadex IV Lasix DC'd plans for hemodialysis catheter access today per Dr. Collado anticoagulation currently on hold. Patient denies chest pain or shortness of breath. Patient denies nausea vomiting or diarrhea. Aishwarya ent denies any urinary burning or frequency On 10/10/2019 patient is alert and oriented 3. Patient underwent hemodialysis catheter placement on 10/09/[address] Collado. Plans for hemodialysis today and for the next 3 days per nephrology. At this time patient is tired resting in bed. Patient denies any chest pain does report some discomfort around hemodialysis site. Patient denies any urinary burning or frequency On 10/11/2019 patient alert and oriented 3. Patient under went first chronic hemodialysis yesterday 1 L off. Plan for patient to get hemodialysis today and tomorrow with close monitoring of blood pressure and patient. Patient is alert and oriented. Patient denies chest pain. Patient denies shortness breath. Patient denies nausea vomiting or diarrhea. Patient denies any urinary burning or frequency On 10/12/2019 patient was seen and examined on the medical floor she is alert and oriented 3 in no apparent distress she accidentally pulled her dialysis catheter partially at night there is some bleeding around the catheter site otherwise she denies any complaints there is no fever or chills no headache or dizziness no chest pain no shortness of breath no cough no nausea or vomiting no abdominal pain no diarrhea and no urinary symptoms. On 10/13/2019 patient was seen and examined on the medical floor she is complaining of nausea and vomiting and feeling tired otherwise she denies any complaints, there is no fever or chills no headache or dizziness no chest pain no shortness of breath no cough no abdominal pain no diarrhea no burning with urination no frequency or urgency and no hematuria. On 10/14/2019 patient is alert and oriented 3. Patient is currently getting hemodialysis. Patient still having oozing from hemodialysis site. She is main tained on eliquis, dosage has been decreased per cardiology. Nausea and vomiting have improved. Patient denies chest pain or shortness of breath. Patient denies any urinary burning or frequency On 10/15/2019 patient is alert and oriented 3. Patient currently sitting up in chair. Patient having some oozing at hemodialysis site. Patient was dilated by Dr. Collado. Patient states coagulation currently on hold did receive DDAVP for the oozing per nephrology. Patient also evaluated by Dr. ferrer due to chronic cholecystitis continue to monitor symptoms at this time plans for surgical inter vention. Patient denies chest pain or shortness breath. Patient denies nausea vomiting or diarrhea. Patient denies any urinary burning or frequency On 10/16/2019 patient's alert and oriented 3. Patient currently getting hemodialysis. Pressure dressing remains on hemodialysis site awaiting for Dr. Collado input. Patient will hopefully be restarted back on anticoagulation in the next 24-48 hours only to monitor site for bleeding. At this time patient denies chest pain or shortness of breath. Patient denies nausea vomiting or diarrhea. Patient denies any urinary burning or frequency On 10/17/2019 patient's alert and oriented 3. Patient having episode of nausea post dinner last evening. Patient also having increased abdominal discomfort and distention today. Did discuss case with surgical nurse practitioner. Case was discussed with Dr. Vuong. Plans for HIDA scan and abdominal x-ray. Patient was also started back on Xarelto. Hemodialysis site showing no signs of bleeding. We'll continue to monitor. On 10/18/2019 patient's alert and oriented 3. Patient has been nothing by mouth per surgical services. Abdominal discomfort and nausea have subsided. HIDA scan and x-ray completed surgical services to review. Patient is currently getting hemodialysis. Patient denies chest pain or shortness of breath. Patient denies nausea vomiting or diarrhea. Patient denies any urinary burning or frequency On 10/19/2019 patient was seen and examined on the medical floor she is alert and oriented 3 in no apparent distress she was just restarted on soft diet which she tolerated well at this time she is scheduled for HIDA scan on Monday otherwise she is receiving hemodialysis and is tolerating well there is no fever or chills no headache or dizziness no chest pain no shortness of breath no cough no nausea or vomiting no abdominal pain no diarrhea no burning was urination no frequency or urgency no hematuria On 10/20/2019 patient was seen and examined on the medical floor her daughter is present in the room, patient is still complaining of abdominal pain and sense of fullness after she eats otherwise there is no complaints at this time there is no fever or chills no headache or dizziness no chest pain no shortness of breath no cough no nausea or vomiting no diarrhea no burning with urination no frequency or urgency no hematuria. On 10/21/2019 patient was seen and examined on the medical floor she is alert and oriented 3 in no apparent distress she underwent small bowel series today which did not reveal any clear evidence of obstruction patient was reevaluated again by Dr. ferrer and at this time the plan is to proceed with laparoscopic cholecystectomy tomorrow. Currently patient is doing well there is no fever or chills no headache or dizziness no chest pain no shortness of breath no cough no nausea or vomiting no abdominal pain no diarrhea and no urinary symptoms Objective - Vital Signs Vital signs: Vital Signs Temp 97.6 F 10/21/19 15:00 Pulse 76 10/21/19 15:00 Resp 17 10/21/19 15:00 BP 106/77 10/21/19 15:00 Pulse Ox 94 L 10/21/19 15:00 Intake & Output 10/20/19 10/21/19 10/21/19 18:59 06:59 18:59 Intake Total 200 0 Balance 200 0 Weight 84.5 kg Intake: Oral 200 0 Other: Voiding Method Toilet Toilet Diaper Diaper # Voids 2 1 2 # Bowel Movements 1 # Emeses 1 - Exam In general patient is alert and oriented 3 in no apparent distress HEENT head normocephalic and atraumatic. Hemodialysis port right upper chest wall Neck is supple no JVD no goiter Chest exam reveals a scattered crackles bilaterally no wheezing Cardiac exam reveals regular heart sounds no gallops no murmurs Abdomen is soft nontender no organomegaly Extremity exam reveals 2+ edema no cyanosis or clubbing Neurological examination reveals no gross focal deficits - Labs CBC & Chem 7: 10/21/19 07:41 10/21/19 07:41 Labs: Abnormal Lab Results - Last 24 Hours (Table) 10/20/19 10/21/19 10/21/19 Range/Units 20:45 07:41 07:41 RBC 2.56 L (3.80-5.40) m/uL Hgb 9.3 L (11.4-16.0) gm/dL Hct 29.3 L (34.0-46.0) % MCV 114.3 H (80.0-100.0) fL MCH 36.3 H (25.0-35.0) pg RDW 17.1 H (11.5-15.5) % Macrocytosis Marked A Sodium 127 L (137-145) mmol/L Chloride 94 L (98-107) mmol/L BUN 33 H (7-17) mg/dL Creatinine 2.79 H (0.52-1.04) mg/dL POC Glucose (mg/dL) 134 H (75-99) mg/dL Total Protein 5.4 L (6.3-8.2) g/dL Albumin 2.7 L (3.5-5.0) g/dL Assessment and Plan Plan: #1 severe shortness of breath improved most likely related to fluid overload patient related to acute on chronic systolic CHF secondary to end-stage renal disease was started on IV Lasix and consultation for nephrology was initiated to assess if patient needs to be started on hemodialysis during this admission. Patient and family are still waiting to make final decision in regards to hemodialysis. Would like to discuss with Dr. Wellington prior to making decision. Per nephrology IV Lasix has been DC'd and patient switched to Demadex. Hemodialysis access achieved on 10/09/[address] Collado. Patient will be on Monday hemodialysis schedule #2 abnormal chest x-ray revealing evidence of hilar fullness, will continue to monitor and repeat chest x-ray once fluid overload has resolved #3 indeterminate VQ scan, doubt pulmonary embolism, bilateral lower extremity Doppler was ordered. Venous Doppler of lower extremities showing no active DVT in the lower extremity. Persistent long segment thrombus in the right lower x- ray has been present on prior studies. Doppler study completed of upper extremities are negative for DVT in either extremity #4 underlying history of chronic atrial fibrillation #5 underlying history of chronic kidney disease stage IV #6 underlying history of diabetes mellitus controlled #7 underlying history of hypertension #8 underlying history of anemia of chronic renal disease #9. Urinary tract infection. Patient started on Rocephin. Urine culture completed and negative. Antibiotics will be DC'd #10 nausea and vomiting. Diet increased. Symptoms reappearing on 10/17/2019. Discussed case with surgical nurse practitioner plans for HIDA scan and abdominal ultrasound #11. Chronic cholecystitis with calculs. Patient was evaluated by surgical services. Recommending at this time resuming low-fat diet monitor symptoms no antibiotics needed #12. Increased bleeding at hemodialysis site. Eliquis currently on hold per cardiology. DDAVP was given per nephrology. We'll continue to monitor site. Patient has been started on anticoagulation Xarelto no signs of bleeding at hemodialysis site DVT prophylaxis SCDs. GI prophylaxis Protonix Pulmonary cardiology and nephrology following Increased abdominal discomfort and nausea. Surgical services reconsulted Patient was evaluated again by Dr. Ferrer today, he held Xarelto in anticipation of any surgical intervention small bowel series done today, no clear evidence of obstruction.
[2019-10-21 20:23] LABS: Glucose,Whole Blood 133 mg/dL (75-99)
[2019-10-22 06:57] LABS: Glucose,Whole Blood 90 mg/dL (75-99)
[2019-10-22] MEDS: FERROUS SULFATE 325 MG TAB PO SCH (07:28)
[2019-10-22] MEDS: CALCIUM ACETATE 667 MG TAB PO SCH ×3 (07:28→17:13)
[2019-10-22] MEDS: CALCITRIOL 0.25 MCG CAP PO SCH (07:28)
[2019-10-22] MEDS: ALLOPURINOL 100 MG TAB PO SCH (07:28)
[2019-10-22] MEDS: CHOLECALCIFEROL 1,000 UNIT TAB PO SCH (07:28)
[2019-10-22] MEDS: INSULIN ASPART (NovoLOG) 100 UNIT/ML VIAL SQ SCH ×4 (07:29→20:39)
[2019-10-22] MEDS: DOCUSATE 100 MG CAP PO SCH ×2 (07:29→20:39)
[2019-10-22] MEDS: PANTOPRAZOLE 40 MG TABLET PO SCH (07:29)
[2019-10-22] MEDS: TORSEMIDE 20 MG TAB PO SCH (07:30)
[2019-10-22] MEDS: VIT A,C & E-LUTEIN-MINERALS 1 EACH TAB PO SCH ×2 (07:30→20:39)
[2019-10-22] MEDS: MIDODRINE 5 MG TAB PO SCH ×3 (07:31→22:09)
[2019-10-22] MEDS: METOPROLOL TARTRATE 25 MG TAB PO SCH ×3 (07:37→22:09)
[2019-10-22] MEDS: DORZOLAMIDE HCL 2% DROPS 10 ML BTL BOTH EYES SCH ×2 (07:38→20:39)
[2019-10-22] MEDS: BRIMONIDINE TARTRATE 0.2% DROPS 5 ML BTL BOTH EYES SCH ×2 (07:38→20:39)
[2019-10-22] MEDS: NYSTATIN 100,000UNIT/GM CREAM 30 GM TUBE TOPICAL SCH ×2 (07:39→20:40)
--- NOTE | 2019-10-22 10:53 | P.PN ---
Subjective Patient is seen in follow-up for her incisional disease. Tolerated hemodialysis well yesterday. She scheduled for cholecystectomy today. No active complaints at this time. Vital signs are stable. General: The patient appeared well nourished and normally developed. HEENT: Head exam is unremarkable. Neck is without jugular venous distension. LUNGS: Lungs are clear to auscultation and percussion. Breath sounds decreased. HEART: Rate and Rhythm are regular. First and second heart sounds normal. No murmurs, rubs or gallops. ABDOMEN: Abdominal exam reveals normal bowel sounds. Non-tender and non- distended. No evidence of peritonitis. EXTREMITITES: 1+ edema. Objective - Vital Signs Vital signs: Vital Signs Temp 98.2 F 10/22/19 07:00 Pulse 60 10/22/19 07:00 Resp 17 10/22/19 07:00 BP 129/68 10/22/19 07:00 Pulse Ox 98 10/22/19 07:00 Intake & Output 10/21/19 10/22/19 10/22/19 18:59 06:59 18:59 Intake Total 0 Output Total 2250 Balance 0 -2250 Weight 83.5 kg Intake: Oral 0 Output: Hemodialysis 2250 Other: Voiding Method Toilet Toilet Diaper Diaper # Voids 2 1 # Bowel Movements 1 - Labs CBC & Chem 7: 10/21/19 07:41 10/21/19 07:41 Labs: Abnormal Lab Results - Last 24 Hours (Table) 10/21/19 Range/Units 20:21 POC Glucose (mg/dL) 133 H (75-99) mg/dL Assessment and Plan Plan: Assessment: 1. End-stage renal disease maintained on hemodialysis on Monday and Monday schedule. 2. Hyponatremia secondary to chronic kidney disease. 3. Anemia of chronic kidney disease maintained on Aranesp. 4. Chronic kidney disease mineral bone disease maintained on PhosLo and calcitriol. 5. Chronic systolic CHF with ejection fraction of 25-30% with severe mitral regurgitation and severe tricuspid regurgitation. 6. Chronic cholecystitis scheduled for cholecystectomy today. Plan: Hemodialysis tomorrow. Maintain Demadex.
[2019-10-22] MEDS ORDERED: SODIUM CHLORIDE 0.9% 500 ML 500 ML IV ONE (12:00)
[2019-10-22] MEDS ORDERED: HEPARIN SODIUM,PORCINE 5,000 UNIT/ML 1 ML VIAL SQ ONE (12:36)
--- NOTE | 2019-10-22 12:44 | P.PN ---
Progress Note - Text Progress Note Date: 10/22/19 Patient without new complaints this morning. Still with mild pain right upper quadrant. Mild nausea as well. Was evaluated by anesthesia. CODE STATUS discussed. Patient is agreeable to full code until 8 AM tomorrow. Will proceed with laparoscopic, possible open cholecystectomy.
[2019-10-22] MEDS ORDERED: ONDANSETRON 4 MG/2 ML VIAL ONE (12:47)
[2019-10-22] MEDS ORDERED: LIDOCAINE 1% INJ 10MG/ML (20 ML MDV) ONE (12:47)
[2019-10-22] MEDS ORDERED: ROCURONIUM BROMIDE 10 MG/ML 5 ML VIAL IV ONE (12:47)
[2019-10-22] MEDS ORDERED: PROPOFOL 10 MG/ML 20 ML VIAL IV ONE (12:47)
[2019-10-22] MEDS ORDERED: SUCCINYLCHOLINE CHLORIDE 100 MG/5 ML SYR IV ONE (12:47)
[2019-10-22] MEDS ORDERED: GLYCOPYRROLATE 0.2 MG/ML 2 ML VIAL ONE (12:47)
[2019-10-22] MEDS ORDERED: fentaNYL (PF) 50 MCG/ML 2 ML AMP ONE (12:47)
[2019-10-22] MEDS ORDERED: NEOSTIGMINE 1 MG/ML 10 ML VIAL ONE (12:47)
--- NOTE | 2019-10-22 13:06 | P.PN ---
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 Cintron for cholecystitis, 10/20/2019, patient seen eval examined during the rounds, intermittent abdominal pain is concerned however denies any chest pain shortness of breath, general surgery has been following 10/19/2019, patient seen and evaluated examined during the rounds labs reviewed medications reviewed, respiratory status remains stable, patient has been cleared for solid diet now, being observed closely for chronic cholecystitis, dialysis plan 10/18/2019, patient seen eval examined during the rounds labs reviewed medications reviewed care plan discussed with the patient at length patient is has been doing problems with abdominal distention and an uncomfortable feeling, shE has been nothing by mouth, general surgery following, patient continued to get hemodialysis Monday10/13/2019, patient seen eval examined during the rounds labs reviewed medications reviewed care plan discussed, denies any chest pain and shortness of breath but however patient is not feeling well she is having hiccups with dyspepsia, patient is on clear liquid diet ultrasound of abdomen planned, the catheter site is intact but however some oozing is noted which is been stabilized vascular surgery following 10/12/2019, patient seen eval reexamined during the rounds labs reviewed medications reviewed sitting upright in the bed breathing well, patient had episode of the of [facility] nauseous and throw up once now she is improved now and during that process she has a small hemorrhage of the catheter site, hemostasis achieved no active bleeding is present, vascular surgery has been notified by staff 10/11/2019, patient seen eval examined during the rounds labs reviewed medicati ons reviewed care plan discussed sitting upright on the bed undergoing hemodialysis today is the second cycle hemodialysis denies any shortness of breath or chest pain 10/10/2019, patient seen eval examined during the rounds labs reviewed medications reviewed patient is undergoing hemodialysis doing well denies any chest pain hemodynamic status stable breathing more comfortably 10/09/2019, patient seen eval examined during the rounds labs reviewed medications reviewed respiratory status stable patient is a 4 permacath placement later on today hemodynamic shoes stable patient is a going to undergo hemodialysis as planned by renal services, labs are reviewed BUN/creatinine is elevated 85/3.07, blood pressure in the lower side, oxygen saturation is 99% on room air 10/08/2019, patient seen eval reexamined during the rounds sitting upright on the chest on the chair breathing comfortably denies any chest pain, due to chronic renal failure renal services to hemodialysis patient has been taken off of anticoagulation dialysis catheter is being planned for tomorrow, duplex ultrasound of the lower extremity revealed a chronic old thrombosis in the near and right lower extremity left is negative up her extremities are also negative for acute DVT This is a 84-year-old female with chronic atrial fibrillation well-known to me patient has been on chronic long-term lifelong anticoagulation she has chronic atrial fibrillation small pleural effusion, she has a congestive heart failure due to that, patient this morning woke up with chronic stable shortness of breath and some left-sided chest pain improved with applying pressure, came into emergency department, patient has been recently discharged from the hospital yesterday, patient underwent a chest x-ray revealed prominent right hilum and cardiomegaly no pleural effusion seen, VQ scan shows matching defects, labs significant for elevated BUN/creatinine of 96 and 2.87, BNP is over 15,000, Objective - Vital Signs Vital signs: Vital Signs Temp 96.9 F L 10/22/19 11:55 Pulse 62 10/22/19 11:55 Resp 16 10/22/19 11:55 BP 109/58 10/22/19 11:55 Pulse Ox 100 10/22/19 11:55 Intake & Output 10/21/19 10/22/19 10/22/19 18:59 06:59 18:59 Intake Total 0 50 Output Total 2250 Balance 0 -2250 50 Weight 83.5 kg Intake: IV 50 Oral 0 Output: Hemodialysis 2250 Other: Voiding Method Toilet Toilet Diaper Diaper # Voids 2 1 # Bowel Movements 1 - Exam - Constitutional General appearance: average body habitus, disheveled, no acute distress - EENT Eyes: EOMI, PERRLA Ears: bilateral: normal - Neck Carotids: bilateral: upstroke normal - Respiratory Respiratory: bilateral: CTA - Cardiovascular Rhythm: regular Heart sounds: normal: S1, S2 - Gastrointestinal General gastrointestinal: decreased bowel sounds - Neurologic Neurologic: CNII-XII intact - Musculoskeletal Musculoskeletal: gait normal, generalized weakness, strength equal bilaterally - Psychiatric Psychiatric: A&O x's 3, appropriate affect, intact judgment & insight - Labs CBC & Chem 7: 10/21/19 07:41 10/21/19 07:41 Labs: Abnormal Lab Results - Last 24 Hours (Table) 10/21/19 Range/Units 20:21 POC Glucose (mg/dL) 133 H (75-99) mg/dL Assessment and Plan Assessment: Intermittent abdominal pain, general surgery of following Chronic cholecystitis/cholelithiasis Chronic renal failure likely cardiorenal Abnormal x-ray with hilar fullness Chronic atrial fibrillation on lifelong anticoagulation with his Xarelto Indeterminate VQ scan less likely PE Chronic pleural effusion Plan: Laparoscopic cholecystectomy For hemodialysis per renal services Continue anticoagulation Follow clinical course closely Resume anticoagulation post dialysis catheter placement, Computed tomography scan of the chest to be performed once patient is stable without dye t Time with Patient: Greater than 30
[2019-10-22] MEDS ORDERED: BUPIVACAINE (PF) 0.25% 30 ML VIAL SQ ONE ×2 (13:12)
[2019-10-22] MEDS ORDERED: NALOXONE 0.4 MG/ML 1 ML VIAL IV PRN (14:04)
--- NOTE | 2019-10-22 14:07 | P.OP ---
Date of Procedure: 10/22/19 Procedure(s) Performed: PREOPERATIVE DIAGNOSIS: Chronic cholecystitis POSTOPERATIVE DIAGNOSIS: Same PROCEDURE: Laparoscopic cholecystectomy SURGEON: Yevgeniy EBL: 15 mL ANESTHESIA: Gen. COMPLICATIONS: None OPERATIVE PROCEDURE: The patient was brought and placed on the operating room table in the supine position. The patient was placed under general anesthesia at that time. The abdomen was prepped and draped in the usual sterile fashion. A 5 mm incision was made in the left upper quadrant. Entrance into the perineal cavity occurred using an optical 5 mm trocar. Insufflation took place up to 15 mmHg. the patient had adhesions from about the umbilicus inferiorly between the omentum and the abdominal wall. Given the appearance I do not think the patient is a candidate for peritoneal dialysis. A 5 mm optical trocar was advanced into the abdomen in the supraumbilical location. 2 additional 5 mm trochars were placed in the right upper quadrant under direct visualization. A 12 mm trocar was advanced into the epigastric incision site. The gallbladder was retracted superiorly and laterally. The peritoneum overlying the infundibulum was bluntly dissected. The patient's cystic duct was visualized. The junction between the cystic duct common and hepatic duct was identified. The cystic duct was then divided after placement of 3 12 mm clips on the patient's side and one on the specimen side. The cystic artery was identified and clipped as well. A small vessel was seen along the gallbladder fossa and clipped as well. The gallbladder was then removed from the liver bed using electrocautery. The gallbladder was then removed from the epigastric trocar site with an Endo Catch bag. The gallbladder fossa was irrigated with saline. There was no evidence of any bleeding or biliary drainage seen. The fascia at the 12 millimeter site was closed using a Jareth-Rajani 0 Vicryl stitch. The trochars were then removed. The skin at all 4 sites was closed using a 4-0 Monocryl stitch. Skin glue was utilized on the incision sites. At the end of this procedure the sponge and needle counts were correct. DISPOSITION: Stable to the recovery room
[2019-10-22 14:30] LABS: Glucose,Whole Blood 81 mg/dL (75-99)
[2019-10-22] MEDS ORDERED: HYDROmorphone 0.5 MG/0.5 ML SYRINGE IVP ONE (14:42)
[2019-10-22] MEDS: LINAGLIPTIN 5 MG TABLET PO SCH (15:17)
[2019-10-22 16:43] LABS: Glucose,Whole Blood 83 mg/dL (75-99)
[2019-10-22] MEDS: HEPARIN SODIUM,PORCINE 5,000 UNIT/ML 1 ML VIAL SQ SCH ×2 (17:12→22:09)
[2019-10-22 20:41] LABS: Glucose,Whole Blood 157 mg/dL (75-99)
[2019-10-22] MEDS: traMADol 50 MG TAB PO PRN (22:14)
[2019-10-23 06:56] LABS: Glucose,Whole Blood 119 mg/dL (75-99)
[2019-10-23] MEDS: INSULIN ASPART (NovoLOG) 100 UNIT/ML VIAL SQ SCH ×4 (07:11→21:18)
[2019-10-23 07:25] LABS: Anisocytosis Slight; Basophils % (A) 0 %; Eosinophils % (A) 0 %; HCT 31.1 % (34.0-46.0); HGB 9.8 gm/dL (11.4-16.0); Hypochromasia Marked; Lymphocytes # (A) 0.8 k/uL (1.0-4.8); Lymphocytes % (A) 10 %; MCH 37.1 pg (25.0-35.0); MCHC 31.4 g/dL (31.0-37.0); MCV 118.2 fL (80.0-100.0); Macrocytosis Marked; Monocytes # (A) 0.5 k/uL (0-1.0); Monocytes % (A) 6 %; Neutrophils # (A) 6.8 k/uL (1.3-7.7); Neutrophils % (A) 81 %; RBC 2.63 m/uL (3.80-5.40); RDW 17.1 % (11.5-15.5); WBC 8.4 k/uL (3.8-10.6)
[2019-10-23] MEDS: CALCIUM ACETATE 667 MG TAB PO SCH ×3 (07:55→17:27)
[2019-10-23] MEDS: PANTOPRAZOLE 40 MG TABLET PO SCH (07:55)
[2019-10-23] MEDS: DOCUSATE 100 MG CAP PO SCH ×2 (07:55→21:18)
[2019-10-23] MEDS: MIDODRINE 5 MG TAB PO SCH ×3 (07:55→23:57)
[2019-10-23] MEDS: CHOLECALCIFEROL 1,000 UNIT TAB PO SCH (07:55)
[2019-10-23] MEDS: FERROUS SULFATE 325 MG TAB PO SCH (07:56)
[2019-10-23] MEDS: ALLOPURINOL 100 MG TAB PO SCH (07:56)
[2019-10-23 07:58] LABS: Platelet Count 94 k/uL (150-450); Poikilocytosis (M) Present
[2019-10-23] MEDS: traMADol 50 MG TAB PO PRN (07:59)
[2019-10-23] MEDS ORDERED: HEPARIN SODIUM,PORCINE 5,000 UNIT/ML 1 ML VIAL ONE (08:00)
[2019-10-23] MEDS: BRIMONIDINE TARTRATE 0.2% DROPS 5 ML BTL BOTH EYES SCH ×2 (08:04→21:17)
[2019-10-23] MEDS: HEPARIN SODIUM,PORCINE 5,000 UNIT/ML 1 ML VIAL SQ SCH ×3 (08:04→23:57)
[2019-10-23] MEDS: DORZOLAMIDE HCL 2% DROPS 10 ML BTL BOTH EYES SCH ×2 (08:04→21:17)
[2019-10-23] MEDS: METOPROLOL TARTRATE 25 MG TAB PO SCH ×3 (08:04→23:54)
[2019-10-23 08:16] LABS: Albumin 2.9 g/dL (3.5-5.0); Calcium 8.2 mg/dL (8.4-10.2); Potassium 3.7 mmol/L (3.5-5.1); Total Bilirubin 0.9 mg/dL (0.2-1.3); Total Protein 5.7 g/dL (6.3-8.2)
--- NOTE | 2019-10-23 09:14 | P.PN ---
<Noemi Feliciano A - Last Filed: 10/23/19 09:11> Subjective Progress Note Date: 10/23/19 CHIEF COMPLAINT: Chronic cholecystitis HISTORY OF PRESENT ILLNESS: Patient examined this morning at the bedside. No family present. She is s/p laparoscopic cholecystectomy with Dr. Vuong. Postoperative #1. She is currently undergoing hemodialysis. Patient reports her pain is tolerable. She is tolerating clear liquid diet. Denies nausea or vomiting. Vital signs are stable. She is afebrile. White count 8.4. Hemoglobin 9.8. PHYSICAL EXAM: VITAL SIGNS: Reviewed. GENERAL: Well-developed in no acute distress. HEENT: No sclera icterus. Extraocular movements grossly intact. Moist buccal mucosa. Head is atraumatic, normocephalic. ABDOMEN: Soft. Nondistended. Appropriate surgical tenderness. Surgical site clean dry and intact without drainage or erythema. NEUROLOGIC: Alert and oriented. Cranial nerves II through XII grossly intact. ASSESSMENT: 1. Chronic cholecystitis 2. Cholelithiasis 3. Nausea and vomiting PLAN: Continue to advance diet as tolerated Pain control Incentive spirometry Activity as tolerated Nurse practitioner note has been reviewed by physician. Signing provider agrees with the documented findings, assessment, and plan of care. Objective - Vital Signs Vital signs: Vital Signs Temp 98.1 F 10/23/19 07:00 Pulse 79 10/23/19 07:00 Resp 16 10/23/19 07:00 BP 113/56 10/23/19 07:00 Pulse Ox 98 10/23/19 07:00 Intake & Output 10/22/19 10/23/19 10/23/19 18:59 06:59 18:59 Intake Total 400 100 Output Total 15 Balance 385 100 Weight 83.5 kg 80.6 kg Intake: IV 300 Oral 100 100 Output: Estimated Blood Loss 15 Other: Voiding Method Toilet Diaper # Voids 1 - Labs CBC & Chem 7: 10/23/19 06:43 10/23/19 06:43 Labs: Abnormal Lab Results - Last 24 Hours (Table) 10/22/19 10/23/19 10/23/19 Range/Units 20:35 06:43 06:43 RBC 2.63 L (3.80-5.40) m/uL Hgb 9.8 L (11.4-16.0) gm/dL Hct 31.1 L (34.0-46.0) % MCV 118.2 H (80.0-100.0) fL MCH 37.1 H (25.0-35.0) pg RDW 17.1 H (11.5-15.5) % Plt Count 94 L (150-450) k/uL Lymphocytes # 0.8 L (1.0-4.8) k/uL Macrocytosis Marked A Sodium 132 L (137-145) mmol/L Carbon Dioxide 19 L (22-30) mmol/L BUN 27 H (7-17) mg/dL Creatinine 2.44 H (0.52-1.04) mg/dL Glucose 112 H (74-99) mg/dL POC Glucose (mg/dL) 157 H (75-99) mg/dL Calcium 8.2 L (8.4-10.2) mg/dL Total Protein 5.7 L (6.3-8.2) g/dL Albumin 2.9 L (3.5-5.0) g/dL 10/23/19 Range/Units 06:52 RBC (3.80-5.40) m/uL Hgb (11.4-16.0) gm/dL Hct (34.0-46.0) % MCV (80.0-100.0) fL MCH (25.0-35.0) pg RDW (11.5-15.5) % Plt Count (150-450) k/uL Lymphocytes # (1.0-4.8) k/uL Macrocytosis Sodium (137-145) mmol/L Carbon Dioxide (22-30) mmol/L BUN (7-17) mg/dL Creatinine (0.52-1.04) mg/dL Glucose (74-99) mg/dL POC Glucose (mg/dL) 119 H (75-99) mg/dL Calcium (8.4-10.2) mg/dL Total Protein (6.3-8.2) g/dL Albumin (3.5-5.0) g/dL <Teodoro Vuong - Last Filed: 10/23/19 10:21> Subjective As above. Patient doing well. Continue diet as tolerated. Stable for dischar ge from our standpoint. Objective - Vital Signs Vital signs: Vital Signs Temp 98.1 F 10/23/19 07:00 Pulse 79 10/23/19 07:00 Resp 16 10/23/19 07:00 BP 113/56 10/23/19 07:00 Pulse Ox 98 10/23/19 07:00 Intake & Output 10/22/19 10/23/19 10/23/19 18:59 06:59 18:59 Intake Total 400 100 Output Total 15 Balance 385 100 Weight 83.5 kg 80.6 kg Intake: IV 300 Oral 100 100 Output: Estimated Blood Loss 15 Other: Voiding Method Toilet Diaper # Voids 1 - Labs CBC & Chem 7: 10/23/19 06:43 10/23/19 06:43 Labs: Abnormal Lab Results - Last 24 Hours (Table) 10/22/19 10/23/19 10/23/19 Range/Units 20:35 06:43 06:43 RBC 2.63 L (3.80-5.40) m/uL Hgb 9.8 L (11.4-16.0) gm/dL Hct 31.1 L (34.0-46.0) % MCV 118.2 H (80.0-100.0) fL MCH 37.1 H (25.0-35.0) pg RDW 17.1 H (11.5-15.5) % Plt Count 94 L (150-450) k/uL Lymphocytes # 0.8 L (1.0-4.8) k/uL Macrocytosis Marked A Sodium 132 L (137-145) mmol/L Carbon Dioxide 19 L (22-30) mmol/L BUN 27 H (7-17) mg/dL Creatinine 2.44 H (0.52-1.04) mg/dL Glucose 112 H (74-99) mg/dL POC Glucose (mg/dL) 157 H (75-99) mg/dL Calcium 8.2 L (8.4-10.2) mg/dL Total Protein 5.7 L (6.3-8.2) g/dL Albumin 2.9 L (3.5-5.0) g/dL 10/23/19 Range/Units 06:52 RBC (3.80-5.40) m/uL Hgb (11.4-16.0) gm/dL Hct (34.0-46.0) % MCV (80.0-100.0) fL MCH (25.0-35.0) pg RDW (11.5-15.5) % Plt Count (150-450) k/uL Lymphocytes # (1.0-4.8) k/uL Macrocytosis Sodium (137-145) mmol/L Carbon Dioxide (22-30) mmol/L BUN (7-17) mg/dL Creatinine (0.52-1.04) mg/dL Glucose (74-99) mg/dL POC Glucose (mg/dL) 119 H (75-99) mg/dL Calcium (8.4-10.2) mg/dL Total Protein (6.3-8.2) g/dL Albumin (3.5-5.0) g/dL Assessment and Plan (1) Chronic cholecystitis with calculus Current Visit: Yes Status: Acute Code(s): K80.10 - CALCULUS OF GALLBLADDER W CHRONIC CHOLECYST W/O OBSTRUCTION SNOMED Code(s): 60610409
--- NOTE | 2019-10-23 10:34 | P.PN ---
Subjective Patient is seen in follow-up for end-stage renal disease. Underwent cholecystectomy yesterday. Admits to mild discomfort in the abdomen. Tolerated clear diet this morning. Vital signs are stable. General: The patient appeared well nourished and normally developed. HEENT: Head exam is unremarkable. Neck is without jugular venous distension. LUNGS: Lungs are clear to auscultation and percussion. Breath sounds decreased. HEART: Rate and Rhythm are regular. First and second heart sounds normal. No murmurs, rubs or gallops. ABDOMEN: Abdominal exam reveals normal bowel sounds. Non-tender and non- distended. No evidence of peritonitis. EXTREMITITES: 1+ edema. Objective - Vital Signs Vital signs: Vital Signs Temp 98.1 F 10/23/19 07:00 Pulse 79 10/23/19 07:00 Resp 16 10/23/19 07:00 BP 113/56 10/23/19 07:00 Pulse Ox 98 10/23/19 07:00 Intake & Output 10/22/19 10/23/19 10/23/19 18:59 06:59 18:59 Intake Total 400 100 Output Total 15 Balance 385 100 Weight 83.5 kg 80.6 kg Intake: IV 300 Oral 100 100 Output: Estimated Blood Loss 15 Other: Voiding Method Toilet Diaper # Voids 1 - Labs CBC & Chem 7: 10/23/19 06:43 10/23/19 06:43 Labs: Abnormal Lab Results - Last 24 Hours (Table) 10/22/19 10/23/19 10/23/19 Range/Units 20:35 06:43 06:43 RBC 2.63 L (3.80-5.40) m/uL Hgb 9.8 L (11.4-16.0) gm/dL Hct 31.1 L (34.0-46.0) % MCV 118.2 H (80.0-100.0) fL MCH 37.1 H (25.0-35.0) pg RDW 17.1 H (11.5-15.5) % Plt Count 94 L (150-450) k/uL Lymphocytes # 0.8 L (1.0-4.8) k/uL Macrocytosis Marked A Sodium 132 L (137-145) mmol/L Carbon Dioxide 19 L (22-30) mmol/L BUN 27 H (7-17) mg/dL Creatinine 2.44 H (0.52-1.04) mg/dL Glucose 112 H (74-99) mg/dL POC Glucose (mg/dL) 157 H (75-99) mg/dL Calcium 8.2 L (8.4-10.2) mg/dL Total Protein 5.7 L (6.3-8.2) g/dL Albumin 2.9 L (3.5-5.0) g/dL 10/23/19 Range/Units 06:52 RBC (3.80-5.40) m/uL Hgb (11.4-16.0) gm/dL Hct (34.0-46.0) % MCV (80.0-100.0) fL MCH (25.0-35.0) pg RDW (11.5-15.5) % Plt Count (150-450) k/uL Lymphocytes # (1.0-4.8) k/uL Macrocytosis Sodium (137-145) mmol/L Carbon Dioxide (22-30) mmol/L BUN (7-17) mg/dL Creatinine (0.52-1.04) mg/dL Glucose (74-99) mg/dL POC Glucose (mg/dL) 119 H (75-99) mg/dL Calcium (8.4-10.2) mg/dL Total Protein (6.3-8.2) g/dL Albumin (3.5-5.0) g/dL Assessment and Plan Plan: Assessment: 1. End-stage renal disease maintained on hemodialysis on Monday and Monday schedule. 2. Hyponatremia secondary to chronic kidney disease. 3. Anemia of chronic kidney disease maintained on Aranesp. 4. Chronic kidney disease mineral bone disease maintained on PhosLo and calcitriol. 5. Chronic systolic CHF with ejection fraction of 25-30% with severe mitral regurgitation and severe tricuspid regurgitation. 6. Chronic cholecystitis status post cholecystectomy on October 21. Plan: Currently seen while undergoing hemodialysis. Next treatment on Monday. Maintain Demadex.
[2019-10-23 11:21] LABS: Glucose,Whole Blood 113 mg/dL (75-99)
--- NOTE | 2019-10-23 11:26 | P.PN ---
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 Cintron for cholecystitis, 10/20/2019, patient seen eval examined during the rounds, intermittent abdominal pain is concerned however denies any chest pain shortness of breath, general surgery has been following 10/19/2019, patient seen and evaluated examined during the rounds labs reviewed medications reviewed, respiratory status remains stable, patient has been cleared for solid diet now, being observed closely for chronic cholecystitis, dialysis plan 10/18/2019, patient seen eval examined during the rounds labs reviewed medications reviewed care plan discussed with the patient at length patient is has been doing problems with abdominal distention and an uncomfortable feeling, shE has been nothing by mouth, general surgery following, patient continued to get hemodialysis Monday10/13/2019, patient seen eval examined during the rounds labs reviewed medications reviewed care plan discussed, denies any chest pain and shortness of breath but however patient is not feeling well she is having hiccups with dyspepsia, patient is on clear liquid diet ultrasound of abdomen planned, the catheter site is intact but however some oozing is noted which is been stabilized vascular surgery following 10/12/2019, patient seen eval reexamined during the rounds labs reviewed medications reviewed sitting upright in the bed breathing well, patient had episode of the of [facility] nauseous and throw up once now she is improved now and during that process she has a small hemorrhage of the catheter site, hemostasis achieved no active bleeding is present, vascular surgery has been notified by staff 10/11/2019, patient seen eval examined during the rounds labs reviewed medications reviewed care plan discussed sitting upright on the bed undergoing hemodialysis today is the second cycle hemodialysis denies any shortness of breath or chest pain 10/10/2019, patient seen eval examined during the rounds labs reviewed medications reviewed patient is undergoing hemodialysis doing well denies any chest pain hemodynamic status stable breathing more comfortably 10/09/2019, patient seen eval examined during the rounds labs reviewed medications reviewed respiratory status stable patient is a 4 permacath placement later on today hemodynamic shoes stable patient is a going to undergo hemodialysis as planned by renal services, labs are reviewed BUN/creatinine is elevated 85/3.07, blood pressure in the lower side, oxygen saturation is 99% on room air 10/08/2019, patient seen eval reexamined during the rounds sitting upright on the chest on the chair breathing comfortably denies any chest pain, due to chronic renal failure renal services to hemodialysis patient has been taken off of anticoagulation dialysis catheter is being planned for tomorrow, duplex ultrasound of the lower extremity revealed a chronic old thrombosis in the near and right lower extremity left is negative up her extremities are also negative for acute DVT This is a 84-year-old female with chronic atrial fibrillation well-known to me patient has been on chronic long-term lifelong anticoagulation she has chronic atrial fibrillation small pleural effusion, she has a congestive heart failure due to that, patient this morning woke up with chronic stable shortness of breat h and some left-sided chest pain improved with applying pressure, came into emergency department, patient has been recently discharged from the hospital yesterday, patient underwent a chest x-ray revealed prominent right hilum and cardiomegaly no pleural effusion seen, VQ scan shows matching defects, labs significant for elevated BUN/creatinine of 96 and 2.87, BNP is over 15,000, Objective - Vital Signs Vital signs: Vital Signs Temp 98.1 F 10/23/19 07:00 Pulse 79 10/23/19 07:00 Resp 16 10/23/19 07:00 BP 113/56 10/23/19 07:00 Pulse Ox 98 10/23/19 07:00 Intake & Output 10/22/19 10/23/19 10/23/19 18:59 06:59 18:59 Intake Total 400 100 Output Total 15 Balance 385 100 Weight 83.5 kg 80.6 kg Intake: IV 300 Oral 100 100 Output: Estimated Blood Loss 15 Other: Voiding Method Toilet Diaper # Voids 1 - Exam - Constitutional General appearance: average body habitus, disheveled, no acute distress - EENT Eyes: EOMI, PERRLA Ears: bilateral: normal - Neck Carotids: bilateral: upstroke normal - Respiratory Respiratory: bilateral: CTA - Cardiovascular Rhythm: regular Heart sounds: normal: S1, S2 - Gastrointestinal General gastrointestinal: decreased bowel sounds - Neurologic Neurologic: CNII-XII intact - Musculoskeletal Musculoskeletal: gait normal, generalized weakness, strength equal bilaterally - Psychiatric Psychiatric: A&O x's 3, appropriate affect, intact judgment & insight - Labs CBC & Chem 7: 10/23/19 06:43 10/23/19 06:43 Labs: Abnormal Lab Results - Last 24 Hours (Table) 10/22/19 10/23/19 10/23/19 Range/Units 20:35 06:43 06:43 RBC 2.63 L (3.80-5.40) m/uL Hgb 9.8 L (11.4-16.0) gm/dL Hct 31.1 L (34.0-46.0) % MCV 118.2 H (80.0-100.0) fL MCH 37.1 H (25.0-35.0) pg RDW 17.1 H (11.5-15.5) % Plt Count 94 L (150-450) k/uL Lymphocytes # 0.8 L (1.0-4.8) k/uL Macrocytosis Marked A Sodium 132 L (137-145) mmol/L Carbon Dioxide 19 L (22-30) mmol/L BUN 27 H (7-17) mg/dL Creatinine 2.44 H (0.52-1.04) mg/dL Glucose 112 H (74-99) mg/dL POC Glucose (mg/dL) 157 H (75-99) mg/dL Calcium 8.2 L (8.4-10.2) mg/dL Total Protein 5.7 L (6.3-8.2) g/dL Albumin 2.9 L (3.5-5.0) g/dL 10/23/19 10/23/19 Range/Units 06:52 11:19 RBC (3.80-5.40) m/uL Hgb (11.4-16.0) gm/dL Hct (34.0-46.0) % MCV (80.0-100.0) fL MCH (25.0-35.0) pg RDW (11.5-15.5) % Plt Count (150-450) k/uL Lymphocytes # (1.0-4.8) k/uL Macrocytosis Sodium (137-145) mmol/L Carbon Dioxide (22-30) mmol/L BUN (7-17) mg/dL Creatinine (0.52-1.04) mg/dL Glucose (74-99) mg/dL POC Glucose (mg/dL) 119 H 113 H (75-99) mg/dL Calcium (8.4-10.2) mg/dL Total Protein (6.3-8.2) g/dL Albumin (3.5-5.0) g/dL Assessment and Plan Assessment: Intermittent abdominal pain, general surgery of following Chronic cholecystitis/cholelithiasis status post laparoscopy cholecystectomy Chronic renal failure likely cardiorenal Abnormal x-ray with hilar fullness Chronic atrial fibrillation on lifelong anticoagulation with his Xarelto Indeterminate VQ scan less likely PE Chronic pleural effusion Plan: Status post Laparoscopic cholecystectomy For hemodialysis per renal services Continue anticoagulation Follow clinical course closely Patient can be discharged home from pulmonary standpoint Time with Patient: Greater than 30
[2019-10-23] MEDS: VIT A,C & E-LUTEIN-MINERALS 1 EACH TAB PO SCH ×2 (11:43→21:18)
[2019-10-23] MEDS: TORSEMIDE 20 MG TAB PO SCH (11:43)
--- NOTE | 2019-10-23 13:22 | P.PN ---
Subjective Progress Note Date: 10/23/19 Trina Carrillo, he is an 84-year-old female who was recently discharged from [facility], who presented to emergency room was a chief complaint of worsening shortness of breath, sharp pain in the chest, and significant swelling in the bilateral lower extremity, she was evaluated in emergency room and was admitted to telemetry floor for further evaluation and treatment BNP was elevated at 15,800 patient has known history of chronic renal failure with elevated BUN and creatinine she was evaluated by nephrology last admission and decision was made to start hemodialysis soon however patient condition deteriorated fast and patient and her family decided to return to emergency room. Due to shortness of breath patient had a VQ scan done in the emergency room, there was no clear evidence of any pulmonary embolism, there was matching ventilation and perfusion defects and the scan was read as intermediate probability for pulmonary embolus. Consultation for cardiology, pulmonary, nephrology were initiated in the emergency room. Patient was seen and examined on the telemetry floor, she is alert and oriented 3 in no apparent distress, at this time her chest pain has resolved and her shortness of breath has improved, she is still having significant bilateral lower extremity edema, otherwise she denies any complaints there is no fever or chills no headache or dizziness no chest pain, no cough no nausea or vomiting no abdominal pain no diarrhea no burning with urination no frequency or urgency no hematuria. On 10/07/2019 patient is alert and oriented 3. Patient does reports improvement with edema and shortness of breath. Patient remains on Lasix 40 every 8 hours. Patient still having some mild chest discomfort. Cardiology nephrology and pulmonary services are following. Venous Doppler was negative for DVTs. Urine culture has been ordered. On 10/08/2019 patient is alert and oriented 3. Family at bedside. Patient remains on IV Lasix. Plans for possible inpatient hemodialysis per nephrology recommendation. Family requesting to speak to Dr. Wellington in regards to VQ scan results before proceeding with hemodialysis. IV Lasix will be DC'd per nephrology and Demadex 20 mg daily ordered. Patient reports improvement with shortness of breath and chest pain. Per cardiology services anticoagulation has been switched from xarelto to eliquis. On 10/09/2019 patient is alert and oriented 3. Daughter at bedside. Patient has been started on Demadex IV Lasix DC'd plans for hemodialysis catheter access today per Dr. Collado anticoagulation currently on hold. Patient denies chest pain or shortness of breath. Patient denies nausea vomiting or diarrhea. Aishwarya ent denies any urinary burning or frequency On 10/10/2019 patient is alert and oriented 3. Patient underwent hemodialysis catheter placement on 10/09/[address] Collado. Plans for hemodialysis today and for the next 3 days per nephrology. At this time patient is tired resting in bed. Patient denies any chest pain does report some discomfort around hemodialysis site. Patient denies any urinary burning or frequency On 10/11/2019 patient alert and oriented 3. Patient under went first chronic hemodialysis yesterday 1 L off. Plan for patient to get hemodialysis today and tomorrow with close monitoring of blood pressure and patient. Patient is alert and oriented. Patient denies chest pain. Patient denies shortness breath. Patient denies nausea vomiting or diarrhea. Patient denies any urinary burning or frequency On 10/12/2019 patient was seen and examined on the medical floor she is alert and oriented 3 in no apparent distress she accidentally pulled her dialysis catheter partially at night there is some bleeding around the catheter site otherwise she denies any complaints there is no fever or chills no headache or dizziness no chest pain no shortness of breath no cough no nausea or vomiting no abdominal pain no diarrhea and no urinary symptoms. On 10/13/2019 patient was seen and examined on the medical floor she is complaining of nausea and vomiting and feeling tired otherwise she denies any complaints, there is no fever or chills no headache or dizziness no chest pain no shortness of breath no cough no abdominal pain no diarrhea no burning with urination no frequency or urgency and no hematuria. On 10/14/2019 patient is alert and oriented 3. Patient is currently getting hemodialysis. Patient still having oozing from hemodialysis site. She is main tained on eliquis, dosage has been decreased per cardiology. Nausea and vomiting have improved. Patient denies chest pain or shortness of breath. Patient denies any urinary burning or frequency On 10/15/2019 patient is alert and oriented 3. Patient currently sitting up in chair. Patient having some oozing at hemodialysis site. Patient was dilated by Dr. Collado. Patient states coagulation currently on hold did receive DDAVP for the oozing per nephrology. Patient also evaluated by Dr. ferrer due to chronic cholecystitis continue to monitor symptoms at this time plans for surgical inter vention. Patient denies chest pain or shortness breath. Patient denies nausea vomiting or diarrhea. Patient denies any urinary burning or frequency On 10/16/2019 patient's alert and oriented 3. Patient currently getting hemodialysis. Pressure dressing remains on hemodialysis site awaiting for Dr. Collado input. Patient will hopefully be restarted back on anticoagulation in the next 24-48 hours only to monitor site for bleeding. At this time patient denies chest pain or shortness of breath. Patient denies nausea vomiting or diarrhea. Patient denies any urinary burning or frequency On 10/17/2019 patient's alert and oriented 3. Patient having episode of nausea post dinner last evening. Patient also having increased abdominal discomfort and distention today. Did discuss case with surgical nurse practitioner. Case was discussed with Dr. Vuong. Plans for HIDA scan and abdominal x-ray. Patient was also started back on Xarelto. Hemodialysis site showing no signs of bleeding. We'll continue to monitor. On 10/18/2019 patient's alert and oriented 3. Patient has been nothing by mouth per surgical services. Abdominal discomfort and nausea have subsided. HIDA scan and x-ray completed surgical services to review. Patient is currently getting hemodialysis. Patient denies chest pain or shortness of breath. Patient denies nausea vomiting or diarrhea. Patient denies any urinary burning or frequency On 10/19/2019 patient was seen and examined on the medical floor she is alert and oriented 3 in no apparent distress she was just restarted on soft diet which she tolerated well at this time she is scheduled for HIDA scan on Monday otherwise she is receiving hemodialysis and is tolerating well there is no fever or chills no headache or dizziness no chest pain no shortness of breath no cough no nausea or vomiting no abdominal pain no diarrhea no burning was urination no frequency or urgency no hematuria On 10/20/2019 patient was seen and examined on the medical floor her daughter is present in the room, patient is still complaining of abdominal pain and sense of fullness after she eats otherwise there is no complaints at this time there is no fever or chills no headache or dizziness no chest pain no shortness of breath no cough no nausea or vomiting no diarrhea no burning with urination no frequency or urgency no hematuria. On 10/21/2019 patient was seen and examined on the medical floor she is alert and oriented 3 in no apparent distress she underwent small bowel series today which did not reveal any clear evidence of obstruction patient was reevaluated again by Dr. ferrer and at this time the plan is to proceed with laparoscopic cholecystectomy tomorrow. Currently patient is doing well there is no fever or chills no headache or dizziness no chest pain no shortness of breath no cough no nausea or vomiting no abdominal pain no diarrhea and no urinary symptoms. On 10/22/2019 patient was seen and examined on the medical floor she is sched uled to have laparoscopic cholecystectomy today there is no fever or chills no headache or dizziness no chest pain no shortness of breath no cough no nausea or vomiting no abdominal pain no diarrhea and no urinary symptoms On 10/23/2019 patient was seen and examined on the medical floor her daughter is in the room, she is alert and oriented 3 in no apparent distress, she underwent laparoscopic cholecystectomy yesterday with Dr. Vuong, she is still having some mild pain at the surgical site otherwise she denies any complaints she was unable to tolerate liquid diet well today and her diet is being advanced there is no nausea or vomiting. There is no fever or chills no headache or dizziness no chest pain no shortness of breath no cough no abdominal pain no diarrhea and no urinary symptoms Objective - Vital Signs Vital signs: Vital Signs Temp 98.0 F 10/23/19 11:55 Pulse 78 10/23/19 11:55 Resp 18 10/23/19 11:55 BP 108/46 10/23/19 11:55 Pulse Ox 98 10/23/19 07:00 Intake & Output 10/22/19 10/23/19 10/23/19 18:59 06:59 18:59 Intake Total 400 100 Output Total 15 2500 Balance 385 100 -2500 Weight 83.5 kg 80.6 kg Intake: IV 300 Oral 100 100 Output: Hemodialysis 2500 Estimated Blood Loss 15 Other: Voiding Method Toilet Diaper # Voids 1 - Exam In general patient is alert and oriented 3 in no apparent distress HEENT head normocephalic and atraumatic. Hemodialysis port right upper chest w all Neck is supple no JVD no goiter Chest exam reveals a scattered crackles bilaterally no wheezing Cardiac exam reveals regular heart sounds no gallops no murmurs Abdomen is soft nontender no organomegaly Extremity exam reveals 2+ edema no cyanosis or clubbing Neurological examination reveals no gross focal deficits - Labs CBC & Chem 7: 10/23/19 06:43 10/23/19 06:43 Labs: Abnormal Lab Results - Last 24 Hours (Table) 10/22/19 10/23/19 10/23/19 Range/Units 20:35 06:43 06:43 RBC 2.63 L (3.80-5.40) m/uL Hgb 9.8 L (11.4-16.0) gm/dL Hct 31.1 L (34.0-46.0) % MCV 118.2 H (80.0-100.0) fL MCH 37.1 H (25.0-35.0) pg RDW 17.1 H (11.5-15.5) % Plt Count 94 L (150-450) k/uL Lymphocytes # 0.8 L (1.0-4.8) k/uL Macrocytosis Marked A Sodium 132 L (137-145) mmol/L Carbon Dioxide 19 L (22-30) mmol/L BUN 27 H (7-17) mg/dL Creatinine 2.44 H (0.52-1.04) mg/dL Glucose 112 H (74-99) mg/dL POC Glucose (mg/dL) 157 H (75-99) mg/dL Calcium 8.2 L (8.4-10.2) mg/dL Total Protein 5.7 L (6.3-8.2) g/dL Albumin 2.9 L (3.5-5.0) g/dL 10/23/19 10/23/19 Range/Units 06:52 11:19 RBC (3.80-5.40) m/uL Hgb (11.4-16.0) gm/dL Hct (34.0-46.0) % MCV (80.0-100.0) fL MCH (25.0-35.0) pg RDW (11.5-15.5) % Plt Count (150-450) k/uL Lymphocytes # (1.0-4.8) k/uL Macrocytosis Sodium (137-145) mmol/L Carbon Dioxide (22-30) mmol/L BUN (7-17) mg/dL Creatinine (0.52-1.04) mg/dL Glucose (74-99) mg/dL POC Glucose (mg/dL) 119 H 113 H (75-99) mg/dL Calcium (8.4-10.2) mg/dL Total Protein (6.3-8.2) g/dL Albumin (3.5-5.0) g/dL Assessment and Plan Plan: #1 severe shortness of breath improved most likely related to fluid overload patient related to acute on chronic systolic CHF secondary to end-stage renal disease was started on IV Lasix and consultation for nephrology was initiated to assess if patient needs to be started on hemodialysis during this admission. Patient and family are still waiting to make final decision in regards to hemodialysis. Would like to discuss with Dr. Wellington prior to making decision. Per nephrology IV Lasix has been DC'd and patient switched to Demadex. Hemodialysis access achieved on 10/09/[address] Collado. Patient will be on Monday hemodialysis schedule #2 abnormal chest x-ray revealing evidence of hilar fullness, will continue to monitor and repeat chest x-ray once fluid overload has resolved #3 indeterminate VQ scan, doubt pulmonary embolism, bilateral lower extremity Doppler was ordered. Venous Doppler of lower extremities showing no active DVT in the lower extremity. Persistent long segment thrombus in the right lower x- ray has been present on prior studies. Doppler study completed of upper ext remities are negative for DVT in either extremity #4 underlying history of chronic atrial fibrillation #5 underlying history of chronic kidney disease stage IV #6 underlying history of diabetes mellitus controlled #7 underlying history of hypertension #8 underlying history of anemia of chronic renal disease #9. Urinary tract infection. Patient started on Rocephin. Urine culture completed and negative. Antibiotics will be DC'd #10 nausea and vomiting. Diet increased. Symptoms reappearing on 10/17/2019. Discussed case with surgical nurse practitioner plans for HIDA scan and abdomin al ultrasound. Patient underwent laparoscopic cholecystectomy yesterday, she is doing well today #11. Chronic cholecystitis with calculs. Patient was evaluated by surgical services. #12. Increased bleeding at hemodialysis site. Eliquis currently on hold per cardiology. DDAVP was given per nephrology. We'll continue to monitor site. Patient has been started on anticoagulation Xarelto no signs of bleeding at hemodialysis site DVT prophylaxis SCDs. GI prophylaxis Protonix Pulmonary cardiology and nephrology following Increased abdominal discomfort and nausea. Surgical services reconsulted Patient was evaluated again by Dr. Ferrer today, he held Xarelto in anticipation of any surgical intervention, will resume Xarelto when okay with surgery small bowel series done today, no clear evidence of obstruction.
[2019-10-23 16:31] LABS: Glucose,Whole Blood 184 mg/dL (75-99)
[2019-10-23] MEDS: LINAGLIPTIN 5 MG TABLET PO SCH (17:23)
[2019-10-23] MEDS: NYSTATIN 100,000UNIT/GM CREAM 30 GM TUBE TOPICAL SCH ×2 (20:13→21:19)
[2019-10-23 20:23] LABS: Glucose,Whole Blood 202 mg/dL (75-99)
[2019-10-24] MEDS: ONDANSETRON 4 MG/2 ML VIAL IVP PRN ×3 (05:32→20:27)
[2019-10-24 06:48] LABS: Glucose,Whole Blood 114 mg/dL (75-99)
[2019-10-24] MEDS: INSULIN ASPART (NovoLOG) 100 UNIT/ML VIAL SQ SCH ×4 (06:51→20:56)
[2019-10-24] MEDS: PANTOPRAZOLE 40 MG TABLET PO SCH (07:22)
[2019-10-24] MEDS: DOCUSATE 100 MG CAP PO SCH ×2 (07:22→20:56)
[2019-10-24] MEDS: FERROUS SULFATE 325 MG TAB PO SCH (07:22)
[2019-10-24] MEDS: CHOLECALCIFEROL 1,000 UNIT TAB PO SCH (07:22)
[2019-10-24] MEDS: MIDODRINE 5 MG TAB PO SCH ×3 (07:22→23:02)
[2019-10-24] MEDS: METOPROLOL TARTRATE 25 MG TAB PO SCH ×3 (07:22→23:02)
[2019-10-24] MEDS: ALLOPURINOL 100 MG TAB PO SCH (07:22)
[2019-10-24] MEDS: CALCIUM ACETATE 667 MG TAB PO SCH ×3 (07:22→16:52)
[2019-10-24] MEDS: HEPARIN SODIUM,PORCINE 5,000 UNIT/ML 1 ML VIAL SQ SCH ×3 (07:23→23:03)
[2019-10-24] MEDS: TORSEMIDE 20 MG TAB PO SCH (07:23)
[2019-10-24] MEDS: CALCITRIOL 0.25 MCG CAP PO SCH (07:23)
[2019-10-24] MEDS: VIT A,C & E-LUTEIN-MINERALS 1 EACH TAB PO SCH ×2 (07:23→20:29)
[2019-10-24] MEDS: traMADol 50 MG TAB PO PRN (07:36)
[2019-10-24] MEDS: BRIMONIDINE TARTRATE 0.2% DROPS 5 ML BTL BOTH EYES SCH ×2 (07:39→20:28)
[2019-10-24] MEDS: DORZOLAMIDE HCL 2% DROPS 10 ML BTL BOTH EYES SCH ×2 (07:39→20:29)
--- NOTE | 2019-10-24 09:01 | P.PN ---
Subjective Patient is seen in follow-up for end-stage renal disease. Tolerating oral intake.. Admits to mild discomfort in the abdomen. No problems with hemo dialysis yesterday. Vital signs are stable. General: The patient appeared well nourished and normally developed. HEENT: Head exam is unremarkable. Neck is without jugular venous distension. LUNGS: Lungs are clear to auscultation and percussion. Breath sounds decreased. HEART: Rate and Rhythm are regular. First and second heart sounds normal. No murmurs, rubs or gallops. ABDOMEN: Abdominal exam reveals normal bowel sounds. Non-tender and non- distended. No evidence of peritonitis. EXTREMITITES: 1+ edema. Objective - Vital Signs Vital signs: Vital Signs Temp 98.3 F 10/24/19 07:20 Pulse 104 H 10/24/19 07:20 Resp 16 10/24/19 07:20 BP 102/64 10/24/19 07:20 Pulse Ox 97 10/24/19 07:20 Intake & Output 10/23/19 10/24/19 10/24/19 18:59 06:59 18:59 Intake Total 400 Output Total 2500 Balance -2100 Weight 80.5 kg Intake: Oral 400 Output: Hemodialysis 2500 Other: Voiding Method Toilet Diaper # Voids 2 1 - Labs CBC & Chem 7: 10/23/19 06:43 10/23/19 06:43 Labs: Abnormal Lab Results - Last 24 Hours (Table) 10/23/19 10/23/19 10/23/19 Range/Units 11:19 16:28 20:20 POC Glucose (mg/dL) 113 H 184 H 202 H (75-99) mg/dL 10/24/19 Range/Units 06:46 POC Glucose (mg/dL) 114 H (75-99) mg/dL Assessment and Plan Plan: Assessment: 1. End-stage renal disease maintained on hemodialysis on Monday and Monday schedule. 2. Hyponatremia secondary to chronic kidney disease. 3. Anemia of chronic kidney disease maintained on Aranesp. 4. Chronic kidney disease mineral bone disease maintained on PhosLo and calcitriol. 5. Chronic systolic CHF with ejection fraction of 25-30% with severe mitral regurgitation and severe tricuspid regurgitation. 6. Chronic cholecystitis status post cholecystectomy on October 21. Plan: Hemodialysis tomorrow. Maintain Demadex. Stable for discharge from nephrology standpoint.
--- NOTE | 2019-10-24 09:53 | P.PN ---
<Noemi Feliciano A - Last Filed: 10/24/19 09:50> Subjective Progress Note Date: 10/24/19 CHIEF COMPLAINT: Chronic cholecystitis HISTORY OF PRESENT ILLNESS: Patient examined this morning at the bedside. She is s/p laparoscopic cholecystectomy with Dr. Vuong. Postoperative #2. Patient denies pain or discomfort this morning. She reports mild nausea this morning. She ate breakfast and tolerated it well. No vomiting. Passing flatus. Patient would like to be discharged home today. However, family at the bedside is hesitant about patient going home today. PHYSICAL EXAM: VITAL SIGNS: Reviewed. GENERAL: Well-developed in no acute distress. HEENT: No sclera icterus. Extraocular movements grossly intact. Moist buccal mucosa. Head is atraumatic, normocephalic. ABDOMEN: Soft. Nondistended. Appropriate surgical tenderness. Surgical site clean dry and intact without drainage or erythema. NEUROLOGIC: Alert and oriented. Cranial nerves II through XII grossly intact. ASSESSMENT: 1. Chronic cholecystitis 2. Cholelithiasis 3. Nausea and vomiting PLAN: Continue current diet Pain control Incentive spirometry Activity as tolerated Stable for discharge home today from a surgical standpoint. Patient to follow up with Dr. Vuong outpatient Nurse practitioner note has been reviewed by physician. Signing provider agrees with the documented findings, assessment, and plan of care. Objective - Vital Signs Vital signs: Vital Signs Temp 98.3 F 10/24/19 07:20 Pulse 104 H 10/24/19 07:20 Resp 16 10/24/19 07:20 BP 102/64 10/24/19 07:20 Pulse Ox 97 10/24/19 07:20 Intake & Output 10/23/19 10/24/19 10/24/19 18:59 06:59 18:59 Intake Total 400 Output Total 2500 Balance -2100 Weight 80.5 kg Intake: Oral 400 Output: Hemodialysis 2500 Other: Voiding Method Toilet Diaper # Voids 2 1 - Labs CBC & Chem 7: 10/23/19 06:43 10/23/19 06:43 Labs: Abnormal Lab Results - Last 24 Hours (Table) 10/23/19 10/23/19 10/23/19 Range/Units 11:19 16:28 20:20 POC Glucose (mg/dL) 113 H 184 H 202 H (75-99) mg/dL 10/24/19 Range/Units 06:46 POC Glucose (mg/dL) 114 H (75-99) mg/dL <KathleenAnamika [email or web address] - Last Filed: 10/24/19 17:21> Subjective As above. Patient had episodes of bilious emesis today. Still with mild nausea. Agree with IV Reglan. No imaging at this time. We'll follow closely. Objective - Vital Signs Vital signs: Vital Signs Temp 97.8 F 10/24/19 15:00 Pulse 108 H 10/24/19 15:00 Resp 17 10/24/19 15:00 BP 120/83 10/24/19 15:00 Pulse Ox 97 10/24/19 15:00 Intake & Output 10/23/19 10/24/19 10/24/19 18:59 06:59 18:59 Intake Total 400 Output Total 2500 Balance -2100 Weight 80.5 kg Intake: Oral 400 Output: Hemodialysis 2500 Other: Voiding Method Toilet Diaper # Voids 2 1 1 - Labs CBC & Chem 7: 10/23/19 06:43 10/23/19 06:43 Labs: Abnormal Lab Results - Last 24 Hours (Table) 10/23/19 10/24/19 10/24/19 Range/Units 20:20 06:46 11:45 POC Glucose (mg/dL) 202 H 114 H 149 H (75-99) mg/dL 10/24/19 Range/Units 16:48 POC Glucose (mg/dL) 156 H (75-99) mg/dL Assessment and Plan (1) Chronic cholecystitis with calculus Current Visit: Yes Status: Acute Code(s): K80.10 - CALCULUS OF GALLBLADDER W CHRONIC CHOLECYST W/O OBSTRUCTION SNOMED Code(s): 69547444
--- NOTE | 2019-10-24 11:13 | P.PN ---
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 Indeterminate VQ scan less likely PE Chronic renal failure 10/24/2019, patient seen eval examined during the rounds labs reviewed medications reviewed, denies any chest pain however some nausea is present related to gagging also, patient doing well after surgery otherwise, scheduled for dialysis tomorrow, likely will be discharged home after dialysis, general surgery and renal service following, on specific questioning he denies any chest pain shortness breath 10/23/2019, status post laparoscopic cholecystectomy tolerated well, patient is currently undergoing hemodialysis in good spirits, denies any chest pain or shortness of breath, some mild discomfort operative site is present 10/22/2019, patient is being evaluated for laparoscopy cholecystectomy by general surgery 10/21/2019, patient seen eval examined during the rounds labs reviewed medications reviewed, patient is being evaluated by Dr. Cintron for cholecystitis, 10/20/2019, patient seen eval examined during the rounds, intermittent abdominal pain is concerned however denies any chest pain shortness of breath, general surgery has been following 10/19/2019, patient seen and evaluated examined during the rounds labs reviewed medications reviewed, respiratory status remains stable, patient has been cleared for solid diet now, being observed closely for chronic cholecystitis, dialysis plan 10/18/2019, patient seen eval examined during the rounds labs reviewed medications reviewed care plan discussed with the patient at length patient is has been doing problems with abdominal distention and an uncomfortable feeling, shE has been nothing by mouth, general surgery following, patient continued to get hemodialysis Monday10/13/2019, patient seen eval examined during the rounds labs reviewed medications reviewed care plan discussed, denies any chest pain and shortness of breath but however patient is not feeling well she is having hiccups with dyspepsia, patient is on clear liquid diet ultrasound of abdomen planned, the catheter site is intact but however some oozing is noted which is been stabilized vascular surgery following 10/12/2019, patient seen eval reexamined during the rounds labs reviewed medications reviewed sitting upright in the bed breathing well, patient had episode of the of [facility] nauseous and throw up once now she is improved now and during that process she has a small hemorrhage of the catheter site, hemostasis achieved no active bleeding is present, vascular surgery has been notified by staff 10/11/2019, patient seen eval examined during the rounds labs reviewed medications reviewed care plan discussed sitting upright on the bed undergoing hemodialysis today is the second cycle hemodialysis denies any shortness of breath or chest pain 10/10/2019, patient seen eval examined during the rounds labs reviewed medications reviewed patient is undergoing hemodialysis doing well denies any chest pain hemodynamic status stable breathing more comfortably 10/09/2019, patient seen eval examined during the rounds labs reviewed medications reviewed respiratory status stable patient is a 4 permacath placement later on today hemodynamic shoes stable patient is a going to undergo hemodialysis as planned by renal services, labs are reviewed BUN/creatinine is elevated 85/3.07, blood pressure in the lower side, oxygen saturation is 99% on room air 10/08/2019, patient seen eval reexamined during the rounds sitting upright on the chest on the chair breathing comfortably denies any chest pain, due to chronic renal failure renal services to hemodialysis patient has been taken off of anticoagulation dialysis catheter is being planned for tomorrow, duplex ultrasound of the lower extremity revealed a chronic old thrombosis in the near and right lower extremity left is negative up her extremities are also negative for acute DVT This is a 84-year-old female with chronic atrial fibrillation well-known to me patient has been on chronic long-term lifelong anticoagulation she has chronic atrial fibrillation small pleural effusion, she has a congestive heart failure due to that, patient this morning woke up with chronic stable shortness of breath and some left-sided chest pain improved with applying pressure, came into emergency department, patient has been recently discharged from the hospital yesterday, patient underwent a chest x-ray revealed prominent right hilum and cardiomegaly no pleural effusion seen, VQ scan shows matching defects, labs significant for elevated BUN/creatinine of 96 and 2.87, BNP is over 15,000, Objective - Vital Signs Vital signs: Vital Signs Temp 98.3 F 10/24/19 07:20 Pulse 104 H 10/24/19 07:20 Resp 16 10/24/19 07:20 BP 102/64 10/24/19 07:20 Pulse Ox 97 10/24/19 07:20 Intake & Output 10/23/19 10/24/19 10/24/19 18:59 06:59 18:59 Intake Total 400 Output Total 2500 Balance -2100 Weight 80.5 kg Intake: Oral 400 Output: Hemodialysis 2500 Other: Voiding Method Toilet Diaper # Voids 2 1 - Exam - Constitutional General appearance: average body habitus, disheveled, no acute distress - EENT Eyes: EOMI, PERRLA Ears: bilateral: normal - Neck Carotids: bilateral: upstroke normal - Respiratory Respiratory: bilateral: CTA - Cardiovascular Rhythm: regular Heart sounds: normal: S1, S2 - Gastrointestinal General gastrointestinal: decreased bowel sounds - Neurologic Neurologic: CNII-XII intact - Musculoskeletal Musculoskeletal: gait normal, generalized weakness, strength equal bilaterally - Psychiatric Psychiatric: A&O x's 3, appropriate affect, intact judgment & insight - Labs CBC & Chem 7: 10/23/19 06:43 10/23/19 06:43 Labs: Abnormal Lab Results - Last 24 Hours (Table) 10/23/19 10/23/19 10/23/19 Range/Units 11:19 16:28 20:20 POC Glucose (mg/dL) 113 H 184 H 202 H (75-99) mg/dL 10/24/19 Range/Units 06:46 POC Glucose (mg/dL) 114 H (75-99) mg/dL Assessment and Plan Assessment: Intermittent abdominal pain, general surgery of following Chronic cholecystitis/cholelithiasis status post laparoscopy cholecystectomy Chronic renal failure likely cardiorenal Abnormal x-ray with hilar fullness Chronic atrial fibrillation on lifelong anticoagulation with his Xarelto Indeterminate VQ scan less likely PE Chronic pleural effusion Plan: Status post Laparoscopic cholecystectomy For hemodialysis per renal services Continue anticoagulation Follow clinical course closely Patient can be discharged home from pulmonary standpoint Time with Patient: Greater than 30
[2019-10-24 11:46] LABS: Glucose,Whole Blood 149 mg/dL (75-99)
[2019-10-24 16:50] LABS: Glucose,Whole Blood 156 mg/dL (75-99)
[2019-10-24] MEDS: LINAGLIPTIN 5 MG TABLET PO SCH (16:52)
--- NOTE | 2019-10-24 17:16 | P.PN ---
Subjective Progress Note Date: 10/24/19 Trina Carrillo, he is an 84-year-old female who was recently discharged from [facility], who presented to emergency room was a chief complaint of worsening shortness of breath, sharp pain in the chest, and significant swelling in the bilateral lower extremity, she was evaluated in emergency room and was admitted to telemetry floor for further evaluation and treatment BNP was elevated at 15,800 patient has known history of chronic renal failure with elevated BUN and creatinine she was evaluated by nephrology last admission and decision was made to start hemodialysis soon however patient condition deteriorated fast and patient and her family decided to return to emergency room. Due to shortness of breath patient had a VQ scan done in the emergency room, there was no clear evidence of any pulmonary embolism, there was matching ventilation and perfusion defects and the scan was read as intermediate probability for pulmonary embolus. Consultation for cardiology, pulmonary, nephrology were initiated in the emergency room. Patient was seen and examined on the telemetry floor, she is alert and oriented 3 in no apparent distress, at this time her chest pain has resolved and her shortness of breath has improved, she is still having significant bilateral lower extremity edema, otherwise she denies any complaints there is no fever or chills no headache or dizziness no chest pain, no cough no nausea or vomiting no abdominal pain no diarrhea no burning with urination no frequency or urgency no hematuria. On 10/07/2019 patient is alert and oriented 3. Patient does reports improvement with edema and shortness of breath. Patient remains on Lasix 40 every 8 hours. Patient still having some mild chest discomfort. Cardiology nephrology and pulmonary services are following. Venous Doppler was negative for DVTs. Urine culture has been ordered. On 10/08/2019 patient is alert and oriented 3. Family at bedside. Patient remains on IV Lasix. Plans for possible inpatient hemodialysis per nephrology recommendation. Family requesting to speak to Dr. Wellington in regards to VQ scan results before proceeding with hemodialysis. IV Lasix will be DC'd per nephrology and Demadex 20 mg daily ordered. Patient reports improvement with shortness of breath and chest pain. Per cardiology services anticoagulation has been switched from xarelto to eliquis. On 10/09/2019 patient is alert and oriented 3. Daughter at bedside. Patient has been started on Demadex IV Lasix DC'd plans for hemodialysis catheter access today per Dr. Collado anticoagulation currently on hold. Patient denies chest pain or shortness of breath. Patient denies nausea vomiting or diarrhea. Aishwarya ent denies any urinary burning or frequency On 10/10/2019 patient is alert and oriented 3. Patient underwent hemodialysis catheter placement on 10/09/[address] Collado. Plans for hemodialysis today and for the next 3 days per nephrology. At this time patient is tired resting in bed. Patient denies any chest pain does report some discomfort around hemodialysis site. Patient denies any urinary burning or frequency On 10/11/2019 patient alert and oriented 3. Patient under went first chronic hemodialysis yesterday 1 L off. Plan for patient to get hemodialysis today and tomorrow with close monitoring of blood pressure and patient. Patient is alert and oriented. Patient denies chest pain. Patient denies shortness breath. Patient denies nausea vomiting or diarrhea. Patient denies any urinary burning or frequency On 10/12/2019 patient was seen and examined on the medical floor she is alert and oriented 3 in no apparent distress she accidentally pulled her dialysis catheter partially at night there is some bleeding around the catheter site otherwise she denies any complaints there is no fever or chills no headache or dizziness no chest pain no shortness of breath no cough no nausea or vomiting no abdominal pain no diarrhea and no urinary symptoms. On 10/13/2019 patient was seen and examined on the medical floor she is complaining of nausea and vomiting and feeling tired otherwise she denies any complaints, there is no fever or chills no headache or dizziness no chest pain no shortness of breath no cough no abdominal pain no diarrhea no burning with urination no frequency or urgency and no hematuria. On 10/14/2019 patient is alert and oriented 3. Patient is currently getting hemodialysis. Patient still having oozing from hemodialysis site. She is main tained on eliquis, dosage has been decreased per cardiology. Nausea and vomiting have improved. Patient denies chest pain or shortness of breath. Patient denies any urinary burning or frequency On 10/15/2019 patient is alert and oriented 3. Patient currently sitting up in chair. Patient having some oozing at hemodialysis site. Patient was dilated by Dr. Collado. Patient states coagulation currently on hold did receive DDAVP for the oozing per nephrology. Patient also evaluated by Dr. ferrer due to chronic cholecystitis continue to monitor symptoms at this time plans for surgical inter vention. Patient denies chest pain or shortness breath. Patient denies nausea vomiting or diarrhea. Patient denies any urinary burning or frequency On 10/16/2019 patient's alert and oriented 3. Patient currently getting hemodialysis. Pressure dressing remains on hemodialysis site awaiting for Dr. Collado input. Patient will hopefully be restarted back on anticoagulation in the next 24-48 hours only to monitor site for bleeding. At this time patient denies chest pain or shortness of breath. Patient denies nausea vomiting or diarrhea. Patient denies any urinary burning or frequency On 10/17/2019 patient's alert and oriented 3. Patient having episode of nausea post dinner last evening. Patient also having increased abdominal discomfort and distention today. Did discuss case with surgical nurse practitioner. Case was discussed with Dr. Vuong. Plans for HIDA scan and abdominal x-ray. Patient was also started back on Xarelto. Hemodialysis site showing no signs of bleeding. We'll continue to monitor. On 10/18/2019 patient's alert and oriented 3. Patient has been nothing by mouth per surgical services. Abdominal discomfort and nausea have subsided. HIDA scan and x-ray completed surgical services to review. Patient is currently getting hemodialysis. Patient denies chest pain or shortness of breath. Patient denies nausea vomiting or diarrhea. Patient denies any urinary burning or frequency On 10/19/2019 patient was seen and examined on the medical floor she is alert and oriented 3 in no apparent distress she was just restarted on soft diet which she tolerated well at this time she is scheduled for HIDA scan on Monday otherwise she is receiving hemodialysis and is tolerating well there is no fever or chills no headache or dizziness no chest pain no shortness of breath no cough no nausea or vomiting no abdominal pain no diarrhea no burning was urination no frequency or urgency no hematuria On 10/20/2019 patient was seen and examined on the medical floor her daughter is present in the room, patient is still complaining of abdominal pain and sense of fullness after she eats otherwise there is no complaints at this time there is no fever or chills no headache or dizziness no chest pain no shortness of breath no cough no nausea or vomiting no diarrhea no burning with urination no frequency or urgency no hematuria. On 10/21/2019 patient was seen and examined on the medical floor she is alert and oriented 3 in no apparent distress she underwent small bowel series today which did not reveal any clear evidence of obstruction patient was reevaluated again by Dr. ferrer and at this time the plan is to proceed with laparoscopic cholecystectomy tomorrow. Currently patient is doing well there is no fever or chills no headache or dizziness no chest pain no shortness of breath no cough no nausea or vomiting no abdominal pain no diarrhea and no urinary symptoms. On 10/22/2019 patient was seen and examined on the medical floor she is sched uled to have laparoscopic cholecystectomy today there is no fever or chills no headache or dizziness no chest pain no shortness of breath no cough no nausea or vomiting no abdominal pain no diarrhea and no urinary symptoms On 10/23/2019 patient was seen and examined on the medical floor her daughter is in the room, she is alert and oriented 3 in no apparent distress, she underwent laparoscopic cholecystectomy yesterday with Dr. Vuong, she is still having some mild pain at the surgical site otherwise she denies any complaints she was unable to tolerate liquid diet well today and her diet is being advanced there is no nausea or vomiting. There is no fever or chills no headache or dizziness no chest pain no shortness of breath no cough no abdominal pain no diarrhea and no urinary symptoms On 10/24/2019 patient was seen and examined on the medical floor, her daughter is available in the room she is feeling better she is still having nausea after she eats otherwise she denies any complaints there is no fever or chills no headache or dizziness no chest pain no shortness of breath no cough no abdominal pain no diarrhea and no urinary symptoms Objective - Vital Signs Vital signs: Vital Signs Temp 97.8 F 10/24/19 15:00 Pulse 108 H 10/24/19 15:00 Resp 17 10/24/19 15:00 BP 120/83 10/24/19 15:00 Pulse Ox 97 10/24/19 15:00 Intake & Output 10/23/19 10/24/19 10/24/19 18:59 06:59 18:59 Intake Total 400 Output Total 2500 Balance -2100 Weight 80.5 kg Intake: Oral 400 Output: Hemodialysis 2500 Other: Voiding Method Toilet Diaper # Voids 2 1 - Exam In general patient is alert and oriented 3 in no apparent distress HEENT head normocephalic and atraumatic. Hemodialysis port right upper chest wall Neck is supple no JVD no goiter Chest exam reveals a scattered crackles bilaterally no wheezing Cardiac exam reveals regular heart sounds no gallops no murmurs Abdomen is soft nontender no organomegaly Extremity exam reveals 2+ edema no cyanosis or clubbing Neurological examination reveals no gross focal deficits - Labs CBC & Chem 7: 10/23/19 06:43 10/23/19 06:43 Labs: Abnormal Lab Results - Last 24 Hours (Table) 10/23/19 10/24/19 10/24/19 Range/Units 20:20 06:46 11:45 POC Glucose (mg/dL) 202 H 114 H 149 H (75-99) mg/dL 10/24/19 Range/Units 16:48 POC Glucose (mg/dL) 156 H (75-99) mg/dL Assessment and Plan Plan: #1 severe shortness of breath improved most likely related to fluid overload patient related to acute on chronic systolic CHF secondary to end-stage renal disease was started on IV Lasix and consultation for nephrology was initiated to assess if patient needs to be started on hemodialysis during this admission. Patient and family are still waiting to make final decision in regards to hemodialysis. Would like to discuss with Dr. Wellington prior to making decision. Per nephrology IV Lasix has been DC'd and patient switched to Demadex. Hemodialysis access achieved on 10/09/[address] Collado. Patient will be on Monday hemodialysis schedule #2 abnormal chest x-ray revealing evidence of hilar fullness, will continue to monitor and repeat chest x-ray once fluid overload has resolved #3 indeterminate VQ scan, doubt pulmonary embolism, bilateral lower extremity Doppler was ordered. Venous Doppler of lower extremities showing no active DVT in the lower extremity. Persistent long segment thrombus in the right lower x- ray has been present on prior studies. Doppler study completed of upper extremities are negative for DVT in either extremity #4 underlying history of chronic atrial fibrillation #5 underlying history of chronic kidney disease stage IV #6 underlying history of diabetes mellitus controlled #7 underlying history of hypertension #8 underlying history of anemia of chronic renal disease #9. Urinary tract infection. Patient started on Rocephin. Urine culture completed and negative. Antibiotics will be DC'd #10 nausea and vomiting. Diet increased. Symptoms reappearing on 10/17/2019. Discussed case with surgical nurse practitioner plans for HIDA scan and abdominal ultrasound. Patient underwent laparoscopic cholecystectomy yesterday, she is doing well today #11. Chronic cholecystitis with calculs. Patient was evaluated by surgical services. #12. Increased bleeding at hemodialysis site. Eliquis currently on hold per cardiology. DDAVP was given per nephrology. We'll continue to monitor site. Patient has been started on anticoagulation Xarelto no signs of bleeding at hemodialysis site DVT prophylaxis SCDs. GI prophylaxis Protonix Pulmonary cardiology and nephrology following Increased abdominal discomfort and nausea. Surgical services reconsulted Patient was evaluated again by Dr. Ferrer today, he held Xarelto in anticipation of any surgical intervention, will resume Xarelto when okay with surgery small bowel series done today, no clear evidence of obstruction.
[2019-10-24] MEDS: METOCLOPRAMIDE 5 MG/ML 2 ML VIAL IVP SCH ×2 (18:00→23:03)
[2019-10-24] MEDS: NYSTATIN 100,000UNIT/GM CREAM 30 GM TUBE TOPICAL SCH ×2 (20:05→20:57)
[2019-10-24 20:36] LABS: Glucose,Whole Blood 162 mg/dL (75-99)
[2019-10-25] MEDS: ONDANSETRON 4 MG/2 ML VIAL IVP PRN (03:19)
[2019-10-25] MEDS: METOCLOPRAMIDE 5 MG/ML 2 ML VIAL IVP SCH ×4 (05:23→22:51)
[2019-10-25 06:56] LABS: Glucose,Whole Blood 146 mg/dL (75-99)
[2019-10-25] MEDS: CALCIUM ACETATE 667 MG TAB PO SCH ×3 (06:58→18:36)
[2019-10-25] MEDS: DOCUSATE 100 MG CAP PO SCH ×2 (06:59→21:00)
[2019-10-25] MEDS: CHOLECALCIFEROL 1,000 UNIT TAB PO SCH (06:59)
[2019-10-25] MEDS: ALLOPURINOL 100 MG TAB PO SCH (06:59)
[2019-10-25] MEDS: FERROUS SULFATE 325 MG TAB PO SCH (06:59)
[2019-10-25] MEDS: VIT A,C & E-LUTEIN-MINERALS 1 EACH TAB PO SCH ×2 (07:00→21:00)
[2019-10-25] MEDS: TORSEMIDE 20 MG TAB PO SCH (07:00)
[2019-10-25 07:13] LABS: ALT <6 U/L (4-34); AST 22 U/L (14-36); African American GFR (CKD) 17 (>60 ml/min/1.73 sqM); Albumin 2.9 g/dL (3.5-5.0); Alkaline Phosphatase 118 U/L (38-126); Anion Gap 11 mmol/L; Blood Urea Nitrogen 30 mg/dL (7-17); Calcium 8.6 mg/dL (8.4-10.2); Carbon Dioxide 27 mmol/L (22-30); Chloride 97 mmol/L (98-107); Glucose 131 mg/dL (74-99); Non-African American GFR(CKD) 15 (>60 ml/min/1.73 sqM); Potassium 3.5 mmol/L (3.5-5.1); Sodium 135 mmol/L (137-145); Total Bilirubin 0.7 mg/dL (0.2-1.3); Total Protein 5.7 g/dL (6.3-8.2)
[2019-10-25] MEDS: MIDODRINE 5 MG TAB PO SCH ×3 (07:26→22:49)
[2019-10-25] MEDS: PANTOPRAZOLE 40 MG TABLET PO SCH (07:26)
[2019-10-25 07:27] LABS: Anisocytosis Slight; Basophils % (A) 0 %; Eosinophils % (A) 0 %; HCT 32.4 % (34.0-46.0); HGB 10.2 gm/dL (11.4-16.0); Hypochromasia Slight; Lymphocytes # (A) 0.9 k/uL (1.0-4.8); Lymphocytes % (A) 9 %; MCH 36.1 pg (25.0-35.0); MCHC 31.6 g/dL (31.0-37.0); MCV 114.1 fL (80.0-100.0); Mean Platelet Volume 8.2; Monocytes # (A) 0.5 k/uL (0-1.0); Monocytes % (A) 5 %; Neutrophils # (A) 7.7 k/uL (1.3-7.7); Neutrophils % (A) 82 %; RBC 2.84 m/uL (3.80-5.40); RDW 16.8 % (11.5-15.5); WBC 9.3 k/uL (3.8-10.6)
[2019-10-25] MEDS: DORZOLAMIDE HCL 2% DROPS 10 ML BTL BOTH EYES SCH ×2 (07:27→21:05)
[2019-10-25] MEDS: HEPARIN SODIUM,PORCINE 5,000 UNIT/ML 1 ML VIAL SQ SCH ×3 (07:27→22:49)
[2019-10-25] MEDS: BRIMONIDINE TARTRATE 0.2% DROPS 5 ML BTL BOTH EYES SCH ×2 (07:28→21:05)
[2019-10-25] MEDS: METOPROLOL TARTRATE 25 MG TAB PO SCH ×3 (07:33→22:49)
[2019-10-25] MEDS: INSULIN ASPART (NovoLOG) 100 UNIT/ML VIAL SQ SCH ×4 (07:33→20:26)
[2019-10-25 07:55] LABS: Macrocytosis Marked; Platelet Count 154 k/uL (150-450)
--- NOTE | 2019-10-25 10:25 | P.PN ---
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 Indeterminate VQ scan less likely PE Chronic renal failure 10/25/2019, patient seen eval examined during the rounds labs reviewed medications reviewed, patient remains nothing by mouth nauseous, general surgery has been following, denies any respiratory problems or issues denies any chest pain hemodynamic status stable 10/24/2019, patient seen eval examined during the rounds labs reviewed medications reviewed, denies any chest pain however some nausea is present related to gagging also, patient doing well after surgery otherwise, scheduled for dialysis tomorrow, likely will be discharged home after dialysis, general surgery and renal service following, on specific questioning he denies any chest pain shortness breath 10/23/2019, status post laparoscopic cholecystectomy tolerated well, patient is currently undergoing hemodialysis in good spirits, denies any chest pain or shortness of breath, some mild discomfort operative site is present 10/22/2019, patient is being evaluated for laparoscopy cholecystectomy by general surgery 10/21/2019, patient seen eval examined during the rounds labs reviewed medications reviewed, patient is being evaluated by Dr. Cintron for ch olecystitis, 10/20/2019, patient seen eval examined during the rounds, intermittent abdominal pain is concerned however denies any chest pain shortness of breath, general surgery has been following 10/19/2019, patient seen and evaluated examined during the rounds labs reviewed medications reviewed, respiratory status remains stable, patient has been cleared for solid diet now, being observed closely for chronic cholecystitis, dialysis plan 10/18/2019, patient seen eval examined during the rounds labs reviewed medications reviewed care plan discussed with the patient at length patient is has been doing problems with abdominal distention and an uncomfortable feeling, shE has been nothing by mouth, general surgery following, patient continued to get hemodialysis Monday10/13/2019, patient seen eval examined during the rounds labs reviewed medications reviewed care plan discussed, denies any chest pain and shortness of breath but however patient is not feeling well she is having hiccups with dyspepsia, patient is on clear liquid diet ultrasound of abdomen planned, the catheter site is intact but however some oozing is noted which is been stabilized vascular surgery following 10/12/2019, patient seen eval reexamined during the rounds labs reviewed medications reviewed sitting upright in the bed breathing well, patient had episode of the of [facility] July nauseous and throw up once now she is improved now and during that process she has a small hemorrhage of the catheter site, hemostasis achieved no active bleeding is present, vascular surgery has been not ified by staff 10/11/2019, patient seen eval examined during the rounds labs reviewed medications reviewed care plan discussed sitting upright on the bed undergoing hemodialysis today is the second cycle hemodialysis denies any shortness of breath or chest pain 10/10/2019, patient seen eval examined during the rounds labs reviewed medications reviewed patient is undergoing hemodialysis doing well denies any chest pain hemodynamic status stable breathing more comfortably 10/09/2019, patient seen eval examined during the rounds labs reviewed medications reviewed respiratory status stable patient is a 4 permacath placement later on today hemodynamic shoes stable patient is a going to undergo hemodialysis as planned by renal services, labs are reviewed BUN/creatinine is elevated 85/3.07, blood pressure in the lower side, oxygen saturation is 99% on room air 10/08/2019, patient seen eval reexamined during the rounds sitting upright on the chest on the chair breathing comfortably denies any chest pain, due to chronic renal failure renal services to hemodialysis patient has been taken off of anticoagulation dialysis catheter is being planned for tomorrow, duplex ultrasound of the lower extremity revealed a chronic old thrombosis in the near and right lower extremity left is negative up her extremities are also negative for acute DVT This is a 84-year-old female with chronic atrial fibrillation well-known to me patient has been on chronic long-term lifelong anticoagulation she has chronic atrial fibrillation small pleural effusion, she has a congestive heart failure due to that, patient this morning woke up with chronic stable shortness of breath and some left-sided chest pain improved with applying pressure, came into emergency department, patient has been recently discharged from the hospital yesterday, patient underwent a chest x-ray revealed prominent right hilum and cardiomegaly no pleural effusion seen, VQ scan shows matching defects, labs significant for elevated BUN/creatinine of 96 and 2.87, BNP is over 15,000, Objective - Vital Signs Vital signs: Vital Signs Temp 99.1 F 10/25/19 07:20 Pulse 82 10/25/19 07:20 Resp 16 10/25/19 07:20 BP 118/69 10/25/19 07:20 Pulse Ox 96 10/25/19 07:20 Intake & Output 10/24/19 10/25/19 10/25/19 18:59 06:59 18:59 Intake Total 240 Output Total 200 Balance 40 Intake: Oral 240 Output: Emesis 200 Other: Voiding Method Toilet # Voids 1 1 - Exam - Constitutional General appearance: average body habitus, disheveled, no acute distress - EENT Eyes: EOMI, PERRLA Ears: bilateral: normal - Neck Carotids: bilateral: upstroke normal - Respiratory Respiratory: bilateral: CTA - Cardiovascular Rhythm: regular Heart sounds: normal: S1, S2 - Gastrointestinal General gastrointestinal: decreased bowel sounds - Neurologic Neurologic: CNII-XII intact - Musculoskeletal Musculoskeletal: gait normal, generalized weakness, strength equal bilaterally - Psychiatric Psychiatric: A&O x's 3, appropriate affect, intact judgment & insight - Labs CBC & Chem 7: 10/25/19 06:27 10/25/19 06:27 Labs: Abnormal Lab Results - Last 24 Hours (Table) 10/24/19 10/24/19 10/24/19 Range/Units 11:45 16:48 20:32 RBC (3.80-5.40) m/uL Hgb (11.4-16.0) gm/dL Hct (34.0-46.0) % MCV (80.0-100.0) fL MCH (25.0-35.0) pg RDW (11.5-15.5) % Lymphocytes # (1.0-4.8) k/uL Macrocytosis Sodium (137-145) mmol/L Chloride (98-107) mmol/L BUN (7-17) mg/dL Creatinine (0.52-1.04) mg/dL Glucose (74-99) mg/dL POC Glucose (mg/dL) 149 H 156 H 162 H (75-99) mg/dL Total Protein (6.3-8.2) g/dL Albumin (3.5-5.0) g/dL 10/25/19 10/25/19 10/25/19 Range/Units 06:27 06:27 06:53 RBC 2.84 L (3.80-5.40) m/uL Hgb 10.2 L (11.4-16.0) gm/dL Hct 32.4 L (34.0-46.0) % MCV 114.1 H (80.0-100.0) fL MCH 36.1 H (25.0-35.0) pg RDW 16.8 H (11.5-15.5) % Lymphocytes # 0.9 L (1.0-4.8) k/uL Macrocytosis Marked A Sodium 135 L (137-145) mmol/L Chloride 97 L (98-107) mmol/L BUN 30 H (7-17) mg/dL Creatinine 2.82 H (0.52-1.04) mg/dL Glucose 131 H (74-99) mg/dL POC Glucose (mg/dL) 146 H (75-99) mg/dL Total Protein 5.7 L (6.3-8.2) g/dL Albumin 2.9 L (3.5-5.0) g/dL Assessment and Plan Assessment: Intermittent nausea and vomiting Intermittent abdominal pain, improve now general surgery of following Chronic cholecystitis/cholelithiasis status post laparoscopy cholecystectomy Chronic renal failure likely cardiorenal Abnormal x-ray with hilar fullness Chronic atrial fibrillation on lifelong anticoagulation with his Xarelto Indeterminate VQ scan less likely PE Chronic pleural effusion Plan: Status post Laparoscopic cholecystectomy For hemodialysis per renal services Continue anticoagulation Follow clinical course closely Patient can be discharged home from pulmonary standpoint Time with Patient: Greater than 30
--- NOTE | 2019-10-25 10:52 | P.PN ---
Subjective Patient is seen in follow-up for end-stage renal disease. She vomited multiple times yesterday but not so far today. She had a bowel movement as well. No other complaints. Vital signs are stable. General: The patient appeared well nourished and normally developed. HEENT: Head exam is unremarkable. Neck is without jugular venous distension. LUNGS: Lungs are clear to auscultation and percussion. Breath sounds decreased. HEART: Rate and Rhythm are regular. First and second heart sounds normal. No murmurs, rubs or gallops. ABDOMEN: Abdominal exam reveals normal bowel sounds. Non-tender and non- distended. No evidence of peritonitis. EXTREMITITES: 1+ edema. Objective - Vital Signs Vital signs: Vital Signs Temp 99.1 F 10/25/19 07:20 Pulse 82 10/25/19 07:20 Resp 16 10/25/19 07:20 BP 118/69 10/25/19 07:20 Pulse Ox 96 10/25/19 07:20 Intake & Output 10/24/19 10/25/19 10/25/19 18:59 06:59 18:59 Intake Total 240 Output Total 200 Balance 40 Intake: Oral 240 Output: Emesis 200 Other: Voiding Method Toilet # Voids 1 1 - Labs CBC & Chem 7: 10/25/19 06:27 10/25/19 06:27 Labs: Abnormal Lab Results - Last 24 Hours (Table) 10/24/19 10/24/19 10/24/19 Range/Units 11:45 16:48 20:32 RBC (3.80-5.40) m/uL Hgb (11.4-16.0) gm/dL Hct (34.0-46.0) % MCV (80.0-100.0) fL MCH (25.0-35.0) pg RDW (11.5-15.5) % Lymphocytes # (1.0-4.8) k/uL Macrocytosis Sodium (137-145) mmol/L Chloride (98-107) mmol/L BUN (7-17) mg/dL Creatinine (0.52-1.04) mg/dL Glucose (74-99) mg/dL POC Glucose (mg/dL) 149 H 156 H 162 H (75-99) mg/dL Total Protein (6.3-8.2) g/dL Albumin (3.5-5.0) g/dL 10/25/19 10/25/19 10/25/19 Range/Units 06:27 06:27 06:53 RBC 2.84 L (3.80-5.40) m/uL Hgb 10.2 L (11.4-16.0) gm/dL Hct 32.4 L (34.0-46.0) % MCV 114.1 H (80.0-100.0) fL MCH 36.1 H (25.0-35.0) pg RDW 16.8 H (11.5-15.5) % Lymphocytes # 0.9 L (1.0-4.8) k/uL Macrocytosis Marked A Sodium 135 L (137-145) mmol/L Chloride 97 L (98-107) mmol/L BUN 30 H (7-17) mg/dL Creatinine 2.82 H (0.52-1.04) mg/dL Glucose 131 H (74-99) mg/dL POC Glucose (mg/dL) 146 H (75-99) mg/dL Total Protein 5.7 L (6.3-8.2) g/dL Albumin 2.9 L (3.5-5.0) g/dL Assessment and Plan Plan: Assessment: 1. End-stage renal disease maintained on hemodialysis on Monday and Monday schedule. 2. Hyponatremia secondary to chronic kidney disease. Better. 3. Anemia of chronic kidney disease maintained on Aranesp. 4. Chronic kidney disease mineral bone disease maintained on PhosLo and calcitriol. 5. Chronic systolic CHF with ejection fraction of 25-30% with severe mitral regurgitation and severe tricuspid regurgitation. 6. Chronic cholecystitis status post cholecystectomy on October 21. Plan: Hemodialysis today. Maintain Demadex. Stable for discharge from nephrology standpoint.
[2019-10-25 11:48] LABS: Glucose,Whole Blood 107 mg/dL (75-99)
--- NOTE | 2019-10-25 12:05 | CDI ---
Documentation Clarification Form Date: 10/25/2019 11:55:09 AM From: Marley Kuo RN, CCDS Admit Date: 10/06/2019 06:59:00 AM Patient Name: Trina Carrillo Visit Number: [id number] ATTENTION: The Clinical Documentation Specialists (CDI) and [facility] Coding Staff appreciate your assistance in clarifying documentation. Please respond to the clarification below the line at the bottom and electronically sign. The CDI & [facility] Coding staff will review the response and follow-up if needed. Please note: Queries are made part of the Legal Health Record. If you have any questions, please contact the author of this message via ITS. Dr. Elyse Owen Patient has had declining protein and albumin with multiple episodes of NPO status and surgical procedures this admission. Please review and provide clinical significance. History/Risk Factors: post operative Lap Choley this admission, JJ, DM2, chronic renal failure Clinical Indicators: Labs: Albumin: 3.3/2.8/3/2.9 Total Protein: 6.3/6.1/5.6/5.7/5.5/5.7 Current BMI: 32.5 Insufficient energy intake: 10/16 NPO, 10/21 NPO Fluid accumulation: Per Nursing Assessments: moderate generalized +1 edema Treatment: Dietary Consult: Completed and re-evaluated several times Supplements: 10/23 Ensure Clear BID Lab monitoring: AM Daily In your professional opinion, can you please clarify if these findings signify one of the following conditions? Mild Protein-Calorie Malnutrition Moderate Protein-Calorie Malnutrition Other condition, please specify Unable to determine (Last Revision: February 2019) MTDD
--- NOTE | 2019-10-25 13:25 | P.PN ---
Subjective Progress Note Date: 10/25/19 Principal diagnosis: Nausea and vomiting Patient had an episode of emesis apparently around 4-5 small morning. Complaining of mild heartburn. She did have some loose stools. Denies any significant pain. Objective - Vital Signs Vital signs: Vital Signs Temp 99.1 F 10/25/19 07:20 Pulse 82 10/25/19 07:20 Resp 16 10/25/19 07:20 BP 118/69 10/25/19 07:20 Pulse Ox 96 10/25/19 07:20 Intake & Output 10/24/19 10/25/19 10/25/19 18:59 06:59 18:59 Intake Total 240 Output Total 200 Balance 40 Intake: Oral 240 Output: Emesis 200 Other: Voiding Method Toilet # Voids 1 1 - Exam Abdomen: Soft, nondistended, incisions clean and dry, minimal tenderness - Labs CBC & Chem 7: 10/25/19 06:27 10/25/19 06:27 Labs: Abnormal Lab Results - Last 24 Hours (Table) 10/24/19 10/24/19 10/25/19 Range/Units 16:48 20:32 06:27 RBC 2.84 L (3.80-5.40) m/uL Hgb 10.2 L (11.4-16.0) gm/dL Hct 32.4 L (34.0-46.0) % MCV 114.1 H (80.0-100.0) fL MCH 36.1 H (25.0-35.0) pg RDW 16.8 H (11.5-15.5) % Lymphocytes # 0.9 L (1.0-4.8) k/uL Macrocytosis Marked A Sodium (137-145) mmol/L Chloride (98-107) mmol/L BUN (7-17) mg/dL Creatinine (0.52-1.04) mg/dL Glucose (74-99) mg/dL POC Glucose (mg/dL) 156 H 162 H (75-99) mg/dL Total Protein (6.3-8.2) g/dL Albumin (3.5-5.0) g/dL 10/25/19 10/25/19 10/25/19 Range/Units 06:27 06:53 11:41 RBC (3.80-5.40) m/uL Hgb (11.4-16.0) gm/dL Hct (34.0-46.0) % MCV (80.0-100.0) fL MCH (25.0-35.0) pg RDW (11.5-15.5) % Lymphocytes # (1.0-4.8) k/uL Macrocytosis Sodium 135 L (137-145) mmol/L Chloride 97 L (98-107) mmol/L BUN 30 H (7-17) mg/dL Creatinine 2.82 H (0.52-1.04) mg/dL Glucose 131 H (74-99) mg/dL POC Glucose (mg/dL) 146 H 107 H (75-99) mg/dL Total Protein 5.7 L (6.3-8.2) g/dL Albumin 2.9 L (3.5-5.0) g/dL Assessment and Plan (1) Chronic cholecystitis with calculus Narrative/Plan: Will advance diet to full liquids. Recommend observation today to be sure the patient is able to tolerate. Possible discharge tomorrow if tolerating without nausea or vomiting. Underlying intermittent PSBO remains a possibility to explain her intermittent vomiting. Current Visit: Yes Status: Acute Code(s): K80.10 - CALCULUS OF GALLBLADDER W CHRONIC CHOLECYST W/O OBSTRUCTION SNOMED Code(s): 87349468
[2019-10-25 14:04] VITALS: BMI 32.4
--- NOTE | 2019-10-25 15:32 | P.PN ---
Subjective Progress Note Date: 10/25/19 Trina Carrillo, he is an 84-year-old female who was recently discharged from [facility], who presented to emergency room was a chief complaint of worsening shortness of breath, sharp pain in the chest, and significant swelling in the bilateral lower extremity, she was evaluated in emergency room and was admitted to telemetry floor for further evaluation and treatment BNP was elevated at 15,800 patient has known history of chronic renal failure with elevated BUN and creatinine she was evaluated by nephrology last admission and decision was made to start hemodialysis soon however patient condition deteriorated fast and patient and her family decided to return to emergency room. Due to shortness of breath patient had a VQ scan done in the emergency room, there was no clear evidence of any pulmonary embolism, there was matching ventilation and perfusion defects and the scan was read as intermediate probability for pulmonary embolus. Consultation for cardiology, pulmonary, nephrology were initiated in the emergency room. Patient was seen and examined on the telemetry floor, she is alert and oriented 3 in no apparent distress, at this time her chest pain has resolved and her shortness of breath has improved, she is still having significant bilateral lower extremity edema, otherwise she denies any complaints there is no fever or chills no headache or dizziness no chest pain, no cough no nausea or vomiting no abdominal pain no diarrhea no burning with urination no frequency or urgency no hematuria. On 10/07/2019 patient is alert and oriented 3. Patient does reports improvement with edema and shortness of breath. Patient remains on Lasix 40 every 8 hours. Patient still having some mild chest discomfort. Cardiology nephrology and pulmonary services are following. Venous Doppler was negative for DVTs. Urine culture has been ordered. On 10/08/2019 patient is alert and oriented 3. Family at bedside. Patient remains on IV Lasix. Plans for possible inpatient hemodialysis per nephrology recommendation. Family requesting to speak to Dr. Wellington in regards to VQ scan results before proceeding with hemodialysis. IV Lasix will be DC'd per nephrology and Demadex 20 mg daily ordered. Patient reports improvement with shortness of breath and chest pain. Per cardiology services anticoagulation has been switched from xarelto to eliquis. On 10/09/2019 patient is alert and oriented 3. Daughter at bedside. Patient has been started on Demadex IV Lasix DC'd plans for hemodialysis catheter access today per Dr. Collado anticoagulation currently on hold. Patient denies chest pain or shortness of breath. Patient denies nausea vomiting or diarrhea. Aishwarya ent denies any urinary burning or frequency On 10/10/2019 patient is alert and oriented 3. Patient underwent hemodialysis catheter placement on 10/09/[address] Collado. Plans for hemodialysis today and for the next 3 days per nephrology. At this time patient is tired resting in bed. Patient denies any chest pain does report some discomfort around hemodialysis site. Patient denies any urinary burning or frequency On 10/11/2019 patient alert and oriented 3. Patient under went first chronic hemodialysis yesterday 1 L off. Plan for patient to get hemodialysis today and tomorrow with close monitoring of blood pressure and patient. Patient is alert and oriented. Patient denies chest pain. Patient denies shortness breath. Patient denies nausea vomiting or diarrhea. Patient denies any urinary burning or frequency On 10/12/2019 patient was seen and examined on the medical floor she is alert and oriented 3 in no apparent distress she accidentally pulled her dialysis catheter partially at night there is some bleeding around the catheter site otherwise she denies any complaints there is no fever or chills no headache or dizziness no chest pain no shortness of breath no cough no nausea or vomiting no abdominal pain no diarrhea and no urinary symptoms. On 10/13/2019 patient was seen and examined on the medical floor she is complaining of nausea and vomiting and feeling tired otherwise she denies any complaints, there is no fever or chills no headache or dizziness no chest pain no shortness of breath no cough no abdominal pain no diarrhea no burning with urination no frequency or urgency and no hematuria. On 10/14/2019 patient is alert and oriented 3. Patient is currently getting hemodialysis. Patient still having oozing from hemodialysis site. She is main tained on eliquis, dosage has been decreased per cardiology. Nausea and vomiting have improved. Patient denies chest pain or shortness of breath. Patient denies any urinary burning or frequency On 10/15/2019 patient is alert and oriented 3. Patient currently sitting up in chair. Patient having some oozing at hemodialysis site. Patient was dilated by Dr. Collado. Patient states coagulation currently on hold did receive DDAVP for the oozing per nephrology. Patient also evaluated by Dr. ferrer due to chronic cholecystitis continue to monitor symptoms at this time plans for surgical inter vention. Patient denies chest pain or shortness breath. Patient denies nausea vomiting or diarrhea. Patient denies any urinary burning or frequency On 10/16/2019 patient's alert and oriented 3. Patient currently getting hemodialysis. Pressure dressing remains on hemodialysis site awaiting for Dr. Collado input. Patient will hopefully be restarted back on anticoagulation in the next 24-48 hours only to monitor site for bleeding. At this time patient denies chest pain or shortness of breath. Patient denies nausea vomiting or diarrhea. Patient denies any urinary burning or frequency On 10/17/2019 patient's alert and oriented 3. Patient having episode of nausea post dinner last evening. Patient also having increased abdominal discomfort and distention today. Did discuss case with surgical nurse practitioner. Case was discussed with Dr. Vuong. Plans for HIDA scan and abdominal x-ray. Patient was also started back on Xarelto. Hemodialysis site showing no signs of bleeding. We'll continue to monitor. On 10/18/2019 patient's alert and oriented 3. Patient has been nothing by mouth per surgical services. Abdominal discomfort and nausea have subsided. HIDA scan and x-ray completed surgical services to review. Patient is currently getting hemodialysis. Patient denies chest pain or shortness of breath. Patient denies nausea vomiting or diarrhea. Patient denies any urinary burning or frequency On 10/19/2019 patient was seen and examined on the medical floor she is alert and oriented 3 in no apparent distress she was just restarted on soft diet which she tolerated well at this time she is scheduled for HIDA scan on Monday otherwise she is receiving hemodialysis and is tolerating well there is no fever or chills no headache or dizziness no chest pain no shortness of breath no cough no nausea or vomiting no abdominal pain no diarrhea no burning was urination no frequency or urgency no hematuria On 10/20/2019 patient was seen and examined on the medical floor her daughter is present in the room, patient is still complaining of abdominal pain and sense of fullness after she eats otherwise there is no complaints at this time there is no fever or chills no headache or dizziness no chest pain no shortness of breath no cough no nausea or vomiting no diarrhea no burning with urination no frequency or urgency no hematuria. On 10/21/2019 patient was seen and examined on the medical floor she is alert and oriented 3 in no apparent distress she underwent small bowel series today which did not reveal any clear evidence of obstruction patient was reevaluated again by Dr. ferrer and at this time the plan is to proceed with laparoscopic cholecystectomy tomorrow. Currently patient is doing well there is no fever or chills no headache or dizziness no chest pain no shortness of breath no cough no nausea or vomiting no abdominal pain no diarrhea and no urinary symptoms. On 10/22/2019 patient was seen and examined on the medical floor she is sched uled to have laparoscopic cholecystectomy today there is no fever or chills no headache or dizziness no chest pain no shortness of breath no cough no nausea or vomiting no abdominal pain no diarrhea and no urinary symptoms On 10/23/2019 patient was seen and examined on the medical floor her daughter is in the room, she is alert and oriented 3 in no apparent distress, she underwent laparoscopic cholecystectomy yesterday with Dr. Vuong, she is still having some mild pain at the surgical site otherwise she denies any complaints she was unable to tolerate liquid diet well today and her diet is being advanced there is no nausea or vomiting. There is no fever or chills no headache or dizziness no chest pain no shortness of breath no cough no abdominal pain no diarrhea and no urinary symptoms On 10/24/2019 patient was seen and examined on the medical floor, her daughter is available in the room she is feeling better she is still having nausea after she eats otherwise she denies any complaints there is no fever or chills no headache or dizziness no chest pain no shortness of breath no cough no abdominal pain no diarrhea and no urinary symptoms. On 10/25/2019 patient was seen and examined on the medical floor she had a difficult night due to nausea and vomiting otherwise she denies any complaints there is no fever or chills no headache or dizziness no chest pain no shortness of breath no cough no abdominal pain no diarrhea no burning with urination no frequency or urgency no hematuria Objective - Vital Signs Vital signs: Vital Signs Temp 97.7 F 10/25/19 14:32 Pulse 91 10/25/19 14:32 Resp 16 10/25/19 14:32 BP 91/59 10/25/19 14:32 Pulse Ox 100 10/25/19 14:32 Intake & Output 10/24/19 10/25/19 10/25/19 18:59 06:59 18:59 Intake Total 240 Output Total 200 Balance 40 Weight 80.5 kg Intake: Oral 240 Output: Emesis 200 Other: Voiding Method Toilet # Voids 1 1 1 # Bowel Movements 1 - Exam In general patient is alert and oriented 3 in no apparent distress HEENT head normocephalic and atraumatic. Hemodialysis port right upper chest wall Neck is supple no JVD no goiter Chest exam reveals a scattered crackles bilaterally no wheezing Cardiac exam reveals regular heart sounds no gallops no murmurs Abdomen is soft nontender no organomegaly Extremity exam reveals 2+ edema no cyanosis or clubbing Neurological examination reveals no gross focal deficits - Labs CBC & Chem 7: 10/25/19 06:27 10/25/19 06:27 Labs: Abnormal Lab Results - Last 24 Hours (Table) 10/24/19 10/24/19 10/25/19 Range/Units 16:48 20:32 06:27 RBC 2.84 L (3.80-5.40) m/uL Hgb 10.2 L (11.4-16.0) gm/dL Hct 32.4 L (34.0-46.0) % MCV 114.1 H (80.0-100.0) fL MCH 36.1 H (25.0-35.0) pg RDW 16.8 H (11.5-15.5) % Lymphocytes # 0.9 L (1.0-4.8) k/uL Macrocytosis Marked A Sodium (137-145) mmol/L Chloride (98-107) mmol/L BUN (7-17) mg/dL Creatinine (0.52-1.04) mg/dL Glucose (74-99) mg/dL POC Glucose (mg/dL) 156 H 162 H (75-99) mg/dL Total Protein (6.3-8.2) g/dL Albumin (3.5-5.0) g/dL 10/25/19 10/25/19 10/25/19 Range/Units 06:27 06:53 11:41 RBC (3.80-5.40) m/uL Hgb (11.4-16.0) gm/dL Hct (34.0-46.0) % MCV (80.0-100.0) fL MCH (25.0-35.0) pg RDW (11.5-15.5) % Lymphocytes # (1.0-4.8) k/uL Macrocytosis Sodium 135 L (137-145) mmol/L Chloride 97 L (98-107) mmol/L BUN 30 H (7-17) mg/dL Creatinine 2.82 H (0.52-1.04) mg/dL Glucose 131 H (74-99) mg/dL POC Glucose (mg/dL) 146 H 107 H (75-99) mg/dL Total Protein 5.7 L (6.3-8.2) g/dL Albumin 2.9 L (3.5-5.0) g/dL Assessment and Plan Plan: #1 severe shortness of breath improved most likely related to fluid overload patient related to acute on chronic systolic CHF secondary to end-stage renal disease was started on IV Lasix and consultation for nephrology was initiated to assess if patient needs to be started on hemodialysis during this admission. Patient and family are still waiting to make final decision in regards to hemodialysis. Would like to discuss with Dr. Wellington prior to making decision. Per nephrology IV Lasix has been DC'd and patient switched to Demadex. Hemodialysis access achieved on 10/09/[address] Collado. Patient will be on Monday hemodialysis schedule #2 abnormal chest x-ray revealing evidence of hilar fullness, will continue to monitor and repeat chest x-ray once fluid overload has resolved #3 indeterminate VQ scan, doubt pulmonary embolism, bilateral lower extremity Doppler was ordered. Venous Doppler of lower extremities showing no active DVT in the lower extremity. Persistent long segment thrombus in the right lower x- ray has been present on prior studies. Doppler study completed of upper extremities are negative for DVT in either extremity #4 underlying history of chronic atrial fibrillation #5 underlying history of chronic kidney disease stage IV #6 underlying history of diabetes mellitus controlled #7 underlying history of hypertension #8 underlying history of anemia of chronic renal disease #9. Urinary tract infection. Patient started on Rocephin. Urine culture completed and negative. Antibiotics will be DC'd #10 nausea and vomiting. Diet increased. Symptoms reappearing on 10/17/2019. Discussed case with surgical nurse practitioner plans for HIDA scan and abdominal ultrasound. Patient underwent laparoscopic cholecystectomy yesterday, she is doing well today #11. Chronic cholecystitis with calculs. Patient was evaluated by surgical services. #12. Increased bleeding at hemodialysis site. Eliquis currently on hold per cardiology. DDAVP was given per nephrology. We'll continue to monitor site. Patient has been started on anticoagulation Xarelto no signs of bleeding at hemodialysis site DVT prophylaxis SCDs. GI prophylaxis Protonix Pulmonary cardiology and nephrology following Increased abdominal discomfort and nausea. Surgical services reconsulted Patient was evaluated again by Dr. Ferrer today, he held Xarelto in anticipation of any surgical intervention, will resume Xarelto when okay with surgery small bowel series done today, no clear evidence of obstruction.
[2019-10-25] MEDS: LINAGLIPTIN 5 MG TABLET PO SCH (16:34)
[2019-10-25] MEDS: NYSTATIN 100,000UNIT/GM CREAM 30 GM TUBE TOPICAL SCH ×2 (16:38→21:06)
[2019-10-25 16:57] LABS: Glucose,Whole Blood 136 mg/dL (75-99)
[2019-10-25 20:27] LABS: Glucose,Whole Blood 127 mg/dL (75-99)
[2019-10-26] MEDS: METOCLOPRAMIDE 5 MG/ML 2 ML VIAL IVP SCH ×4 (05:17→23:17)
[2019-10-26 07:07] LABS: Glucose,Whole Blood 101 mg/dL (75-99)
[2019-10-26] MEDS: INSULIN ASPART (NovoLOG) 100 UNIT/ML VIAL SQ SCH ×4 (07:54→20:40)
[2019-10-26] MEDS: CALCITRIOL 0.25 MCG CAP PO SCH (08:11)
[2019-10-26] MEDS: BRIMONIDINE TARTRATE 0.2% DROPS 5 ML BTL BOTH EYES SCH ×2 (08:11→20:32)
[2019-10-26] MEDS: HEPARIN SODIUM,PORCINE 5,000 UNIT/ML 1 ML VIAL SQ SCH ×3 (08:11→23:17)
[2019-10-26] MEDS: DORZOLAMIDE HCL 2% DROPS 10 ML BTL BOTH EYES SCH ×2 (08:11→20:33)
[2019-10-26] MEDS: TORSEMIDE 20 MG TAB PO SCH (08:12)
[2019-10-26] MEDS: MIDODRINE 5 MG TAB PO SCH ×3 (08:12→23:18)
[2019-10-26] MEDS: CALCIUM ACETATE 667 MG TAB PO SCH ×3 (08:12→17:08)
[2019-10-26] MEDS: CHOLECALCIFEROL 1,000 UNIT TAB PO SCH (08:12)
[2019-10-26] MEDS: VIT A,C & E-LUTEIN-MINERALS 1 EACH TAB PO SCH ×2 (08:12→20:32)
[2019-10-26] MEDS: FERROUS SULFATE 325 MG TAB PO SCH (08:12)
[2019-10-26] MEDS: ALLOPURINOL 100 MG TAB PO SCH (08:13)
[2019-10-26] MEDS: PANTOPRAZOLE 40 MG TABLET PO SCH (08:13)
[2019-10-26] MEDS: METOPROLOL TARTRATE 25 MG TAB PO SCH ×3 (08:13→23:45)
[2019-10-26] MEDS: DOCUSATE 100 MG CAP PO SCH ×2 (08:14→20:43)
[2019-10-26] MEDS: NYSTATIN 100,000UNIT/GM CREAM 30 GM TUBE TOPICAL SCH ×2 (08:16→23:19)
--- NOTE | 2019-10-26 09:43 | P.PN ---
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 Indeterminate VQ scan less likely PE Chronic renal failure 10/26/2019, patient seen eval examined care plan discussed with the patient as well as a family member present at the bedside, cough congestion shortness of breath remained stable patient is sitting upright on the chair breathing comfortably no chest pain or shortness of breath is present no palpitation is present, no she has improved significantly patient able to tolerate Breakfast well, likely will be discharged later on today and yesterday finish the dialysis successfully, patient is scheduled for Monday dialysis schedule by renal 10/25/2019, patient seen eval examined during the rounds labs reviewed medications reviewed, patient remains nothing by mouth nauseous, general surgery has been following, denies any respiratory problems or issues denies any chest pain hemodynamic status stable 10/24/2019, patient seen eval examined during the rounds labs reviewed medications reviewed, denies any chest pain however some nausea is present related to gagging also, patient doing well after surgery otherwise, scheduled for dialysis tomorrow, likely will be discharged home after dialysis, general delgado rgery and renal service following, on specific questioning he denies any chest pain shortness breath 10/23/2019, status post laparoscopic cholecystectomy tolerated well, patient is currently undergoing hemodialysis in good spirits, denies any chest pain or shortness of breath, some mild discomfort operative site is present 10/22/2019, patient is being evaluated for laparoscopy cholecystectomy by general surgery 10/21/2019, patient seen eval examined during the rounds labs reviewed medications reviewed, patient is being evaluated by Dr. Cintron for cholecystitis, 10/20/2019, patient seen eval examined during the rounds, intermittent abdominal pain is concerned however denies any chest pain shortness of breath, general surgery has been following 10/19/2019, patient seen and evaluated examined during the rounds labs reviewed medications reviewed, respiratory status remains stable, patient has been cleared for solid diet now, being observed closely for chronic cholecystitis, dialysis plan 10/18/2019, patient seen eval examined during the rounds labs reviewed medications reviewed care plan discussed with the patient at length patient is has been doing problems with abdominal distention and an uncomfortable feeling, shE has been nothing by mouth, general surgery following, patient continued to get hemodialysis Monday10/13/2019, patient seen eval examined during the rounds labs reviewed medications reviewed care plan discussed, denies any chest pain and shortness of breath but however patient is not feeling well she is having hiccups with dyspepsia, patient is on clear liquid diet ultrasound of abdomen planned, the catheter site is intact but however some oozing is noted which is been stabilized vascular surgery following 10/12/2019, patient seen eval reexamined during the rounds labs reviewed medications reviewed sitting upright in the bed breathing well, patient had episode of the of [facility] July nauseous and throw up once now she is improved now and during that process she has a small hemorrhage of the catheter site, hemostasis achieved no active bleeding is present, vascular surgery has been notified by staff 10/11/2019, patient seen eval examined during the rounds labs reviewed medications reviewed care plan discussed sitting upright on the bed undergoing hemodialysis today is the second cycle hemodialysis denies any shortness of breath or chest pain 10/10/2019, patient seen eval examined during the rounds labs reviewed medicat ions reviewed patient is undergoing hemodialysis doing well denies any chest pain hemodynamic status stable breathing more comfortably 10/09/2019, patient seen eval examined during the rounds labs reviewed medications reviewed respiratory status stable patient is a 4 permacath placement later on today hemodynamic shoes stable patient is a going to undergo hemodialysis as planned by renal services, labs are reviewed BUN/creatinine is elevated 85/3.07, blood pressure in the lower side, oxygen saturation is 99% on room air 10/08/2019, patient seen eval reexamined during the rounds sitting upright on the chest on the chair breathing comfortably denies any chest pain, due to chronic renal failure renal services to hemodialysis patient has been taken off of anticoagulation dialysis catheter is being planned for tomorrow, duplex ultrasound of the lower extremity revealed a chronic old thrombosis in the near and right lower extremity left is negative up her extremities are also negative for acute DVT This is a 84-year-old female with chronic atrial fibrillation well-known to me patient has been on chronic long-term lifelong anticoagulation she has chronic atrial fibrillation small pleural effusion, she has a congestive heart failure due to that, patient this morning woke up with chronic stable shortness of breath and some left-sided chest pain improved with applying pressure, came into emergency department, patient has been recently discharged from the hospital yesterday, patient underwent a chest x-ray revealed prominent right hilum and cardiomegaly no pleural effusion seen, VQ scan shows matching defects, labs significant for elevated BUN/creatinine of 96 and 2.87, BNP is over 15,000, Objective - Vital Signs Vital signs: Vital Signs Temp 98.4 F 10/26/19 07:00 Pulse 98 10/26/19 08:12 Resp 18 10/26/19 08:12 BP 111/55 10/26/19 07:00 Pulse Ox 99 10/26/19 07:00 Intake & Output 10/25/19 10/26/19 10/26/19 18:59 06:59 18:59 Intake Total 300 Output Total 3000 Balance -3000 300 Weight 80.5 kg 80.5 kg Intake: Oral 300 Output: Hemodialysis 3000 Other: Voiding Method Toilet # Voids 1 1 1 # Bowel Movements 1 - Exam - Constitutional General appearance: average body habitus, disheveled, no acute distress - EENT Eyes: EOMI, PERRLA Ears: bilateral: normal - Neck Carotids: bilateral: upstroke normal - Respiratory Respiratory: bilateral: CTA - Cardiovascular Rhythm: regular Heart sounds: normal: S1, S2 - Gastrointestinal General gastrointestinal: decreased bowel sounds - Neurologic Neurologic: CNII-XII intact - Musculoskeletal Musculoskeletal: gait normal, generalized weakness, strength equal bilaterally - Psychiatric Psychiatric: A&O x's 3, appropriate affect, intact judgment & insight - Labs CBC & Chem 7: 10/25/19 06:27 10/25/19 06:27 Labs: Abnormal Lab Results - Last 24 Hours (Table) 10/25/19 10/25/19 10/25/19 Range/Units 11:41 16:54 20:26 POC Glucose (mg/dL) 107 H 136 H 127 H (75-99) mg/dL 10/26/19 Range/Units 07:03 POC Glucose (mg/dL) 101 H (75-99) mg/dL Assessment and Plan Assessment: Intermittent nausea and vomiting Intermittent abdominal pain, improve now general surgery of following Chronic cholecystitis/cholelithiasis status post laparoscopy cholecystectomy Chronic renal failure likely cardiorenal Abnormal x-ray with hilar fullness Chronic atrial fibrillation on lifelong anticoagulation with his Xarelto Indeterminate VQ scan less likely PE Chronic pleural effusion Plan: Status post Laparoscopic cholecystectomy For hemodialysis per renal services Continue anticoagulation Follow clinical course closely Patient can be discharged home from pulmonary standpoint Time with Patient: Greater than 30
--- NOTE | 2019-10-26 10:41 | P.PN ---
Subjective Patient is seen in follow-up for end-stage renal disease. Feels better today. No further vomiting. Vital signs are stable. General: The patient appeared well nourished and normally developed. HEENT: Head exam is unremarkable. Neck is without jugular venous distension. LUNGS: Lungs are clear to auscultation and percussion. Breath sounds decreased. HEART: Rate and Rhythm are regular. First and second heart sounds normal. No murmurs, rubs or gallops. ABDOMEN: Abdominal exam reveals normal bowel sounds. Non-tender and non- distended. No evidence of peritonitis. EXTREMITITES: 1+ edema. Objective - Vital Signs Vital signs: Vital Signs Temp 98.4 F 10/26/19 07:00 Pulse 98 10/26/19 08:12 Resp 18 10/26/19 08:12 BP 111/55 10/26/19 07:00 Pulse Ox 99 10/26/19 07:00 Intake & Output 10/25/19 10/26/19 10/26/19 18:59 06:59 18:59 Intake Total 300 Output Total 3000 Balance -3000 300 Weight 80.5 kg 80.5 kg Intake: Oral 300 Output: Hemodialysis 3000 Other: Voiding Method Toilet # Voids 1 1 1 # Bowel Movements 1 - Labs CBC & Chem 7: 10/25/19 06:27 10/25/19 06:27 Labs: Abnormal Lab Results - Last 24 Hours (Table) 10/25/19 10/25/19 10/25/19 Range/Units 11:41 16:54 20:26 POC Glucose (mg/dL) 107 H 136 H 127 H (75-99) mg/dL 10/26/19 Range/Units 07:03 POC Glucose (mg/dL) 101 H (75-99) mg/dL Assessment and Plan Plan: Assessment: 1. End-stage renal disease maintained on hemodialysis on Monday and Monday schedule. 2. Hyponatremia secondary to chronic kidney disease. Better. 3. Anemia of chronic kidney disease maintained on Aranesp. 4. Chronic kidney disease mineral bone disease maintained on PhosLo and calcitriol. 5. Chronic systolic CHF with ejection fraction of 25-30% with severe mitral regurgitation and severe tricuspid regurgitation. 6. Chronic cholecystitis status post cholecystectomy on October 21. Plan: Hemodialysis on Monday. Maintain Demadex. Stable for discharge from nephrology standpoint.
[2019-10-26] MEDS: traMADol 50 MG TAB PO PRN (11:12)
--- NOTE | 2019-10-26 11:24 | P.PN ---
Progress Note - Text Progress Note Date: 10/26/19 Patient is doing fairly well. She's had no further nausea or vomiting. She is tolerating liquid diet. On exam her vital signs are stable. Her abdomen soft. Patient will also be discharged home tomorrow. She'll follow-up Dr. Vuong next week.
[2019-10-26 11:49] LABS: Glucose,Whole Blood 110 mg/dL (75-99)
--- NOTE | 2019-10-26 12:07 | P.PN ---
Subjective Progress Note Date: 10/26/19 Trina Carrillo, he is an 84-year-old female who was recently discharged from [facility], who presented to emergency room was a chief complaint of worsening shortness of breath, sharp pain in the chest, and significant swelling in the bilateral lower extremity, she was evaluated in emergency room and was admitted to telemetry floor for further evaluation and treatment BNP was elevated at 15,800 patient has known history of chronic renal failure with elevated BUN and creatinine she was evaluated by nephrology last admission and decision was made to start hemodialysis soon however patient condition deteriorated fast and patient and her family decided to return to emergency room. Due to shortness of breath patient had a VQ scan done in the emergency room, there was no clear evidence of any pulmonary embolism, there was matching ventilation and perfusion defects and the scan was read as intermediate probability for pulmonary embolus. Consultation for cardiology, pulmonary, nephrology were initiated in the emergency room. Patient was seen and examined on the telemetry floor, she is alert and oriented 3 in no apparent distress, at this time her chest pain has resolved and her shortness of breath has improved, she is still having significant bilateral lower extremity edema, otherwise she denies any complaints there is no fever or chills no headache or dizziness no chest pain, no cough no nausea or vomiting no abdominal pain no diarrhea no burning with urination no frequency or urgency no hematuria. On 10/07/2019 patient is alert and oriented 3. Patient does reports improvement with edema and shortness of breath. Patient remains on Lasix 40 every 8 hours. Patient still having some mild chest discomfort. Cardiology nephrology and pulmonary services are following. Venous Doppler was negative for DVTs. Urine culture has been ordered. On 10/08/2019 patient is alert and oriented 3. Family at bedside. Patient remains on IV Lasix. Plans for possible inpatient hemodialysis per nephrology recommendation. Family requesting to speak to Dr. Wellington in regards to VQ scan results before proceeding with hemodialysis. IV Lasix will be DC'd per nephrology and Demadex 20 mg daily ordered. Patient reports improvement with shortness of breath and chest pain. Per cardiology services anticoagulation has been switched from xarelto to eliquis. On 10/09/2019 patient is alert and oriented 3. Daughter at bedside. Patient has been started on Demadex IV Lasix DC'd plans for hemodialysis catheter access today per Dr. Collado anticoagulation currently on hold. Patient denies chest pain or shortness of breath. Patient denies nausea vomiting or diarrhea. Aishwarya ent denies any urinary burning or frequency On 10/10/2019 patient is alert and oriented 3. Patient underwent hemodialysis catheter placement on 10/09/[address] Collado. Plans for hemodialysis today and for the next 3 days per nephrology. At this time patient is tired resting in bed. Patient denies any chest pain does report some discomfort around hemodialysis site. Patient denies any urinary burning or frequency On 10/11/2019 patient alert and oriented 3. Patient under went first chronic hemodialysis yesterday 1 L off. Plan for patient to get hemodialysis today and tomorrow with close monitoring of blood pressure and patient. Patient is alert and oriented. Patient denies chest pain. Patient denies shortness breath. Patient denies nausea vomiting or diarrhea. Patient denies any urinary burning or frequency On 10/12/2019 patient was seen and examined on the medical floor she is alert and oriented 3 in no apparent distress she accidentally pulled her dialysis catheter partially at night there is some bleeding around the catheter site otherwise she denies any complaints there is no fever or chills no headache or dizziness no chest pain no shortness of breath no cough no nausea or vomiting no abdominal pain no diarrhea and no urinary symptoms. On 10/13/2019 patient was seen and examined on the medical floor she is complaining of nausea and vomiting and feeling tired otherwise she denies any complaints, there is no fever or chills no headache or dizziness no chest pain no shortness of breath no cough no abdominal pain no diarrhea no burning with urination no frequency or urgency and no hematuria. On 10/14/2019 patient is alert and oriented 3. Patient is currently getting hemodialysis. Patient still having oozing from hemodialysis site. She is main tained on eliquis, dosage has been decreased per cardiology. Nausea and vomiting have improved. Patient denies chest pain or shortness of breath. Patient denies any urinary burning or frequency On 10/15/2019 patient is alert and oriented 3. Patient currently sitting up in chair. Patient having some oozing at hemodialysis site. Patient was dilated by Dr. Collado. Patient states coagulation currently on hold did receive DDAVP for the oozing per nephrology. Patient also evaluated by Dr. ferrer due to chronic cholecystitis continue to monitor symptoms at this time plans for surgical inter vention. Patient denies chest pain or shortness breath. Patient denies nausea vomiting or diarrhea. Patient denies any urinary burning or frequency On 10/16/2019 patient's alert and oriented 3. Patient currently getting hemodialysis. Pressure dressing remains on hemodialysis site awaiting for Dr. Collado input. Patient will hopefully be restarted back on anticoagulation in the next 24-48 hours only to monitor site for bleeding. At this time patient denies chest pain or shortness of breath. Patient denies nausea vomiting or diarrhea. Patient denies any urinary burning or frequency On 10/17/2019 patient's alert and oriented 3. Patient having episode of nausea post dinner last evening. Patient also having increased abdominal discomfort and distention today. Did discuss case with surgical nurse practitioner. Case was discussed with Dr. Vuong. Plans for HIDA scan and abdominal x-ray. Patient was also started back on Xarelto. Hemodialysis site showing no signs of bleeding. We'll continue to monitor. On 10/18/2019 patient's alert and oriented 3. Patient has been nothing by mouth per surgical services. Abdominal discomfort and nausea have subsided. HIDA scan and x-ray completed surgical services to review. Patient is currently getting hemodialysis. Patient denies chest pain or shortness of breath. Patient denies nausea vomiting or diarrhea. Patient denies any urinary burning or frequency On 10/19/2019 patient was seen and examined on the medical floor she is alert and oriented 3 in no apparent distress she was just restarted on soft diet which she tolerated well at this time she is scheduled for HIDA scan on Monday otherwise she is receiving hemodialysis and is tolerating well there is no fever or chills no headache or dizziness no chest pain no shortness of breath no cough no nausea or vomiting no abdominal pain no diarrhea no burning was urination no frequency or urgency no hematuria On 10/20/2019 patient was seen and examined on the medical floor her daughter is present in the room, patient is still complaining of abdominal pain and sense of fullness after she eats otherwise there is no complaints at this time there is no fever or chills no headache or dizziness no chest pain no shortness of breath no cough no nausea or vomiting no diarrhea no burning with urination no frequency or urgency no hematuria. On 10/21/2019 patient was seen and examined on the medical floor she is alert and oriented 3 in no apparent distress she underwent small bowel series today which did not reveal any clear evidence of obstruction patient was reevaluated again by Dr. ferrer and at this time the plan is to proceed with laparoscopic cholecystectomy tomorrow. Currently patient is doing well there is no fever or chills no headache or dizziness no chest pain no shortness of breath no cough no nausea or vomiting no abdominal pain no diarrhea and no urinary symptoms. On 10/22/2019 patient was seen and examined on the medical floor she is sched uled to have laparoscopic cholecystectomy today there is no fever or chills no headache or dizziness no chest pain no shortness of breath no cough no nausea or vomiting no abdominal pain no diarrhea and no urinary symptoms On 10/23/2019 patient was seen and examined on the medical floor her daughter is in the room, she is alert and oriented 3 in no apparent distress, she underwent laparoscopic cholecystectomy yesterday with Dr. Vuong, she is still having some mild pain at the surgical site otherwise she denies any complaints she was unable to tolerate liquid diet well today and her diet is being advanced there is no nausea or vomiting. There is no fever or chills no headache or dizziness no chest pain no shortness of breath no cough no abdominal pain no diarrhea and no urinary symptoms On 10/24/2019 patient was seen and examined on the medical floor, her daughter is available in the room she is feeling better she is still having nausea after she eats otherwise she denies any complaints there is no fever or chills no headache or dizziness no chest pain no shortness of breath no cough no abdominal pain no diarrhea and no urinary symptoms. On 10/25/2019 patient was seen and examined on the medical floor she had a difficult night due to nausea and vomiting otherwise she denies any complaints there is no fever or chills no headache or dizziness no chest pain no shortness of breath no cough no abdominal pain no diarrhea no burning with urination no frequency or urgency no hematuria. On 10/26/2019 patient was seen and examined on the medical floor she is still having some nausea after meals she is maintained on clear liquid diet at this time plan for surgery is to advance diet and possible discharge to home tomorrow if not having any nausea or vomiting. Otherwise patient denies any complaints there is no fever or chills no headache or dizziness no chest pain no shortness of breath no cough no abdominal pain no burning with urination no frequency or urgency no hematuria Objective - Vital Signs Vital signs: Vital Signs Temp 98.4 F 10/26/19 07:00 Pulse 98 10/26/19 08:12 Resp 18 10/26/19 08:12 BP 111/55 10/26/19 07:00 Pulse Ox 99 10/26/19 07:00 Intake & Output 10/25/19 10/26/19 10/26/19 18:59 06:59 18:59 Intake Total 300 Output Total 3000 Balance -3000 300 Weight 80.5 kg 80.5 kg Intake: Oral 300 Output: Hemodialysis 3000 Other: Voiding Method Toilet # Voids 1 1 1 # Bowel Movements 1 - Exam In general patient is alert and oriented 3 in no apparent distress HEENT head normocephalic and atraumatic. Hemodialysis port right upper chest wall Neck is supple no JVD no goiter Chest exam reveals a scattered crackles bilaterally no wheezing Cardiac exam reveals regular heart sounds no gallops no murmurs Abdomen is soft nontender no organomegaly Extremity exam reveals 2+ edema no cyanosis or clubbing Neurological examination reveals no gross focal deficits - Labs CBC & Chem 7: 10/25/19 06:27 10/25/19 06:27 Labs: Abnormal Lab Results - Last 24 Hours (Table) 10/25/19 10/25/19 10/26/19 Range/Units 16:54 20:26 07:03 POC Glucose (mg/dL) 136 H 127 H 101 H (75-99) mg/dL 10/26/19 Range/Units 11:47 POC Glucose (mg/dL) 110 H (75-99) mg/dL Assessment and Plan Plan: #1 severe shortness of breath improved most likely related to fluid overload patient related to acute on chronic systolic CHF secondary to end-stage renal disease was started on IV Lasix and consultation for nephrology was initiated to assess if patient needs to be started on hemodialysis during this admission. Patient and family are still waiting to make final decision in regards to hemodialysis. Would like to discuss with Dr. Wellington prior to making decision. Per nephrology IV Lasix has been DC'd and patient switched to Demadex. Hemodialysis access achieved on 10/09/[address] Collado. Patient will be on Monday hemodialysis schedule #2 abnormal chest x-ray revealing evidence of hilar fullness, will continue to monitor and repeat chest x-ray once fluid overload has resolved #3 indeterminate VQ scan, doubt pulmonary embolism, bilateral lower extremity Doppler was ordered. Venous Doppler of lower extremities showing no active DVT in the lower extremity. Persistent long segment thrombus in the right lower x- ray has been present on prior studies. Doppler study completed of upper extremities are negative for DVT in either extremity #4 underlying history of chronic atrial fibrillation #5 underlying history of chronic kidney disease stage IV #6 underlying history of diabetes mellitus controlled #7 underlying history of hypertension #8 underlying history of anemia of chronic renal disease #9. Urinary tract infection. Patient started on Rocephin. Urine culture completed and negative. Antibiotics will be DC'd #10 nausea and vomiting. Diet increased. Symptoms reappearing on 10/17/2019. Discussed case with surgical nurse practitioner plans for HIDA scan and abdominal ultrasound. Patient underwent laparoscopic cholecystectomy yesterday, she is doing well today #11. Chronic cholecystitis with calculs. Patient was evaluated by surgical services. #12. Increased bleeding at hemodialysis site. Eliquis currently on hold per cardiology. DDAVP was given per nephrology. We'll continue to monitor site. Patient has been started on anticoagulation Xarelto no signs of bleeding at hemodialysis site DVT prophylaxis SCDs. GI prophylaxis Protonix Pulmonary cardiology and nephrology following Increased abdominal discomfort and nausea. Surgical services reconsulted Patient was evaluated again by Dr. Ferrer today, he held Xarelto in anticipation of any surgical intervention, will resume Xarelto when okay with surgery small bowel series done today, no clear evidence of obstruction.
[2019-10-26] MEDS: LINAGLIPTIN 5 MG TABLET PO SCH (15:04)
[2019-10-26 17:01] LABS: Glucose,Whole Blood 137 mg/dL (75-99)
[2019-10-26 20:39] LABS: Glucose,Whole Blood 137 mg/dL (75-99)
[2019-10-27] MEDS: METOCLOPRAMIDE 5 MG/ML 2 ML VIAL IVP SCH ×2 (06:05→11:59)
[2019-10-27 07:09] LABS: Glucose,Whole Blood 109 mg/dL (75-99)
[2019-10-27] MEDS: MIDODRINE 5 MG TAB PO SCH ×2 (07:17→15:08)
[2019-10-27] MEDS: CALCIUM ACETATE 667 MG TAB PO SCH ×2 (07:17→11:59)
[2019-10-27] MEDS: TORSEMIDE 20 MG TAB PO SCH (07:17)
[2019-10-27] MEDS: CALCITRIOL 0.25 MCG CAP PO SCH (07:17)
[2019-10-27] MEDS: CHOLECALCIFEROL 1,000 UNIT TAB PO SCH (07:17)
[2019-10-27] MEDS: PANTOPRAZOLE 40 MG TABLET PO SCH (07:18)
[2019-10-27] MEDS: ALLOPURINOL 100 MG TAB PO SCH (07:18)
[2019-10-27] MEDS: VIT A,C & E-LUTEIN-MINERALS 1 EACH TAB PO SCH (07:18)
[2019-10-27] MEDS: METOPROLOL TARTRATE 25 MG TAB PO SCH ×2 (07:18→15:08)
[2019-10-27] MEDS: DORZOLAMIDE HCL 2% DROPS 10 ML BTL BOTH EYES SCH (07:19)
[2019-10-27] MEDS: BRIMONIDINE TARTRATE 0.2% DROPS 5 ML BTL BOTH EYES SCH (07:19)
[2019-10-27] MEDS: FERROUS SULFATE 325 MG TAB PO SCH (07:19)
[2019-10-27] MEDS: HEPARIN SODIUM,PORCINE 5,000 UNIT/ML 1 ML VIAL SQ SCH (07:19)
[2019-10-27] MEDS: NYSTATIN 100,000UNIT/GM CREAM 30 GM TUBE TOPICAL SCH (07:20)
[2019-10-27] MEDS: INSULIN ASPART (NovoLOG) 100 UNIT/ML VIAL SQ SCH ×2 (07:29→11:52)
[2019-10-27] MEDS: DOCUSATE 100 MG CAP PO SCH (07:30)
[2019-10-27 07:35] LABS: Anisocytosis Slight; Basophils % (A) 0 %; Eosinophils # (A) 0.1 k/uL (0-0.7); Eosinophils % (A) 2 %; Hypochromasia Slight; Lymphocytes # (A) 1.2 k/uL (1.0-4.8); Lymphocytes % (A) 18 %; MCH 35.7 pg (25.0-35.0); MCHC 31.2 g/dL (31.0-37.0); MCV 114.5 fL (80.0-100.0); Macrocytosis Marked; Mean Platelet Volume 8.5; Monocytes # (A) 0.3 k/uL (0-1.0); Monocytes % (A) 4 %; Neutrophils # (A) 4.8 k/uL (1.3-7.7); Neutrophils % (A) 72 %; Platelet Count 155 k/uL (150-450); RBC 2.44 m/uL (3.80-5.40); RDW 16.6 % (11.5-15.5); WBC 6.7 k/uL (3.8-10.6)
[2019-10-27 07:44] LABS: ALT <6 U/L (4-34); AST 19 U/L (14-36); African American GFR (CKD) 16 (>60 ml/min/1.73 sqM); Albumin 2.6 g/dL (3.5-5.0); Alkaline Phosphatase 98 U/L (38-126); Anion Gap 7 mmol/L; Blood Urea Nitrogen 27 mg/dL (7-17); Calcium 8.4 mg/dL (8.4-10.2); Carbon Dioxide 23 mmol/L (22-30); Chloride 103 mmol/L (98-107); Glucose 101 mg/dL (74-99); Non-African American GFR(CKD) 14 (>60 ml/min/1.73 sqM); Potassium 3.8 mmol/L (3.5-5.1); Sodium 133 mmol/L (137-145); Total Bilirubin 0.5 mg/dL (0.2-1.3); Total Protein 5.3 g/dL (6.3-8.2)
[2019-10-27 07:49] LABS: HGB 8.7 gm/dL (11.4-16.0)
--- NOTE | 2019-10-27 10:20 | P.PN ---
Progress Note - Text Progress Note Date: 10/27/19 Patient feels well. She is tolerating diet. She's had no further nausea. Patiently discharged home today. She'll follow-up Dr. Vuong next week
--- NOTE | 2019-10-27 10:45 | P.PN ---
Subjective Patient is seen in follow-up for end-stage renal disease. Feels better today. No further vomiting. Scheduled for discharge today. Vital signs are stable. General: The patient appeared well nourished and normally developed. HEENT: Head exam is unremarkable. Neck is without jugular venous distension. LUNGS: Lungs are clear to auscultation and percussion. Breath sounds decreased. HEART: Rate and Rhythm are regular. First and second heart sounds normal. No murmurs, rubs or gallops. ABDOMEN: Abdominal exam reveals normal bowel sounds. Non-tender and non- distended. No evidence of peritonitis. EXTREMITITES: 1+ edema. Objective - Vital Signs Vital signs: Vital Signs Temp 96.5 F L 10/27/19 07:00 Pulse 102 H 10/27/19 08:00 Resp 16 10/27/19 08:00 BP 120/67 10/27/19 07:00 Pulse Ox 98 10/27/19 07:00 Intake & Output 10/26/19 10/27/19 10/27/19 18:59 06:59 18:59 Intake Total 750 Balance 750 Weight 78.7 kg Intake: Oral 750 Other: Voiding Method Toilet # Voids 1 1 # Bowel Movements 1 - Labs CBC & Chem 7: 10/27/19 06:17 10/27/19 06:17 Labs: Abnormal Lab Results - Last 24 Hours (Table) 10/26/19 10/26/19 10/26/19 Range/Units 11:47 16:59 20:36 RBC (3.80-5.40) m/uL Hgb (11.4-16.0) gm/dL Hct (34.0-46.0) % MCV (80.0-100.0) fL MCH (25.0-35.0) pg RDW (11.5-15.5) % Macrocytosis Sodium (137-145) mmol/L BUN (7-17) mg/dL Creatinine (0.52-1.04) mg/dL Glucose (74-99) mg/dL POC Glucose (mg/dL) 110 H 137 H 137 H (75-99) mg/dL Total Protein (6.3-8.2) g/dL Albumin (3.5-5.0) g/dL 10/27/19 10/27/19 10/27/19 Range/Units 06:17 06:17 07:08 RBC 2.44 L (3.80-5.40) m/uL Hgb 8.7 L D (11.4-16.0) gm/dL Hct 28.0 L (34.0-46.0) % MCV 114.5 H (80.0-100.0) fL MCH 35.7 H (25.0-35.0) pg RDW 16.6 H (11.5-15.5) % Macrocytosis Marked A Sodium 133 L (137-145) mmol/L BUN 27 H (7-17) mg/dL Creatinine 2.93 H (0.52-1.04) mg/dL Glucose 101 H (74-99) mg/dL POC Glucose (mg/dL) 109 H (75-99) mg/dL Total Protein 5.3 L (6.3-8.2) g/dL Albumin 2.6 L (3.5-5.0) g/dL Assessment and Plan Plan: Assessment: 1. End-stage renal disease maintained on hemodialysis on Monday and Monday schedule. 2. Hyponatremia secondary to chronic kidney disease. 3. Anemia of chronic kidney disease maintained on Aranesp. 4. Chronic kidney disease mineral bone disease maintained on PhosLo and calcitriol. 5. Chronic systolic CHF with ejection fraction of 25-30% with severe mitral regurgitation and severe tricuspid regurgitation. 6. Chronic cholecystitis status post cholecystectomy on October 21. Plan: Hemodialysis on Monday. Maintain Demadex. Stable for discharge from nephrology standpoint.
--- NOTE | 2019-10-27 10:51 | P.PN ---
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 Indeterminate VQ scan less likely PE Chronic renal failure 10/27/2019, patient seen eval examined during the rounds labs reviewed medications reviewed overall has been doing well no nausea vomiting is present tolerating solid food well has been cleared from a pulmonary standpoint for discharge 10/26/2019, patient seen eval examined care plan discussed with the patient as well as a family member present at the bedside, cough congestion shortness of breath remained stable patient is sitting upright on the chair breathing comfortably no chest pain or shortness of breath is present no palpitation is present, no she has improved significantly patient able to tolerate Breakfast well, likely will be discharged later on today and yesterday finish the dialysis successfully, patient is scheduled for Monday dialysis schedule by renal 10/25/2019, patient seen eval examined during the rounds labs reviewed medications reviewed, patient remains nothing by mouth nauseous, general surgery has been following, denies any respiratory problems or issues denies any chest pain hemodynamic status stable 10/24/2019, patient seen eval examined during the rounds labs reviewed medications reviewed, denies any chest pain however some nausea is present related to gagging also, patient doing well after surgery otherwise, scheduled for dialysis tomorrow, likely will be discharged home after dialysis, general surgery and renal service following, on specific questioning he denies any chest pain shortness breath 10/23/2019, status post laparoscopic cholecystectomy tolerated well, patient is currently undergoing hemodialysis in good spirits, denies any chest pain or shortness of breath, some mild discomfort operative site is present 10/22/2019, patient is being evaluated for laparoscopy cholecystectomy by general surgery 10/21/2019, patient seen eval examined during the rounds labs reviewed medications reviewed, patient is being evaluated by Dr. Cintron for cholecy stitis, 10/20/2019, patient seen eval examined during the rounds, intermittent abdominal pain is concerned however denies any chest pain shortness of breath, general surgery has been following 10/19/2019, patient seen and evaluated examined during the rounds labs reviewed medications reviewed, respiratory status remains stable, patient has been cleared for solid diet now, being observed closely for chronic cholecystitis, dialysis plan 10/18/2019, patient seen eval examined during the rounds labs reviewed medications reviewed care plan discussed with the patient at length patient is has been doing problems with abdominal distention and an uncomfortable feeling, shE has been nothing by mouth, general surgery following, patient continued to get hemodialysis Monday10/13/2019, patient seen eval examined during the rounds labs reviewed medications reviewed care plan discussed, denies any chest pain and shortness of breath but however patient is not feeling well she is having hiccups with dyspepsia, patient is on clear liquid diet ultrasound of abdomen planned, the ca theter site is intact but however some oozing is noted which is been stabilized vascular surgery following 10/12/2019, patient seen eval reexamined during the rounds labs reviewed medications reviewed sitting upright in the bed breathing well, patient had episode of the of [facility] nauseous and throw up once now she is improved now and during that process she has a small hemorrhage of the catheter site, hemostasis achieved no active bleeding is present, vascular surgery has been notified by staff 10/11/2019, patient seen eval examined during the rounds labs reviewed medications reviewed care plan discussed sitting upright on the bed undergoing hemodialysis today is the second cycle hemodialysis denies any shortness of breath or chest pain 10/10/2019, patient seen eval examined during the rounds labs reviewed medications reviewed patient is undergoing hemodialysis doing well denies any chest pain hemodynamic status stable breathing more comfortably 10/09/2019, patient seen eval examined during the rounds labs reviewed medications reviewed respiratory status stable patient is a 4 permacath placement later on today hemodynamic shoes stable patient is a going to undergo hemodialysis as planned by renal services, labs are reviewed BUN/creatinine is elevated 85/3.07, blood pressure in the lower side, oxygen saturation is 99% on room air 10/08/2019, patient seen eval reexamined during the rounds sitting upright on the chest on the chair breathing comfortably denies any chest pain, due to chronic renal failure renal services to hemodialysis patient has been taken off of anticoagulation dialysis catheter is being planned for tomorrow, duplex ultrasound of the lower extremity revealed a chronic old thrombosis in the near and right lower extremity left is negative up her extremities are also negative for acute DVT This is a 84-year-old female with chronic atrial fibrillation well-known to me patient has been on chronic long-term lifelong anticoagulation she has chronic atrial fibrillation small pleural effusion, she has a congestive heart failure due to that, patient this morning woke up with chronic stable shortness of breath and some left-sided chest pain improved with applying pressure, came into emergency department, patient has been recently discharged from the hospital yesterday, patient underwent a chest x-ray revealed prominent right hilum and cardiomegaly no pleural effusion seen, VQ scan shows matching defects, labs significant for elevated BUN/creatinine of 96 and 2.87, BNP is over 15,000, Objective - Vital Signs Vital signs: Vital Signs Temp 96.5 F L 10/27/19 07:00 Pulse 102 H 10/27/19 08:00 Resp 16 10/27/19 08:00 BP 120/67 10/27/19 07:00 Pulse Ox 98 10/27/19 07:00 Intake & Output 10/26/19 10/27/19 10/27/19 18:59 06:59 18:59 Intake Total 750 Balance 750 Weight 78.7 kg Intake: Oral 750 Other: Voiding Method Toilet # Voids 1 1 # Bowel Movements 1 - Exam - Constitutional General appearance: average body habitus, disheveled, no acute distress - EENT Eyes: EOMI, PERRLA Ears: bilateral: normal - Neck Carotids: bilateral: upstroke normal - Respiratory Respiratory: bilateral: CTA - Cardiovascular Rhythm: regular Heart sounds: normal: S1, S2 - Gastrointestinal General gastrointestinal: decreased bowel sounds - Neurologic Neurologic: CNII-XII intact - Musculoskeletal Musculoskeletal: gait normal, generalized weakness, strength equal bilaterally - Psychiatric Psychiatric: A&O x's 3, appropriate affect, intact judgment & insight - Labs CBC & Chem 7: 10/27/19 06:17 10/27/19 06:17 Labs: Abnormal Lab Results - Last 24 Hours (Table) 10/26/19 10/26/19 10/26/19 Range/Units 11:47 16:59 20:36 RBC (3.80-5.40) m/uL Hgb (11.4-16.0) gm/dL Hct (34.0-46.0) % MCV (80.0-100.0) fL MCH (25.0-35.0) pg RDW (11.5-15.5) % Macrocytosis Sodium (137-145) mmol/L BUN (7-17) mg/dL Creatinine (0.52-1.04) mg/dL Glucose (74-99) mg/dL POC Glucose (mg/dL) 110 H 137 H 137 H (75-99) mg/dL Total Protein (6.3-8.2) g/dL Albumin (3.5-5.0) g/dL 10/27/19 10/27/19 10/27/19 Range/Units 06:17 06:17 07:08 RBC 2.44 L (3.80-5.40) m/uL Hgb 8.7 L D (11.4-16.0) gm/dL Hct 28.0 L (34.0-46.0) % MCV 114.5 H (80.0-100.0) fL MCH 35.7 H (25.0-35.0) pg RDW 16.6 H (11.5-15.5) % Macrocytosis Marked A Sodium 133 L (137-145) mmol/L BUN 27 H (7-17) mg/dL Creatinine 2.93 H (0.52-1.04) mg/dL Glucose 101 H (74-99) mg/dL POC Glucose (mg/dL) 109 H (75-99) mg/dL Total Protein 5.3 L (6.3-8.2) g/dL Albumin 2.6 L (3.5-5.0) g/dL Assessment and Plan Assessment: Intermittent nausea and vomiting Intermittent abdominal pain, improve now general surgery of following Chronic cholecystitis/cholelithiasis status post laparoscopy cholecystectomy Chronic renal failure likely cardiorenal Abnormal x-ray with hilar fullness Chronic atrial fibrillation on lifelong anticoagulation with his Xarelto Indeterminate VQ scan less likely PE Chronic pleural effusion Plan: Status post Laparoscopic cholecystectomy For hemodialysis per renal services Continue anticoagulation Follow clinical course closely Patient can be discharged home from pulmonary standpoint Time with Patient: Greater than 30
[2019-10-27 11:44] LABS: Glucose,Whole Blood 113 mg/dL (75-99)
[2019-10-27] MEDS: DARBEPOETIN ALFA 40 MCG/0.4 ML SYRINGE SQ SCH (11:58)
--- NOTE | 2019-10-27 14:56 | P.DS ---
Providers Date of admission: 10/06/19 06:59 Expected date of discharge: 10/27/19 Attending physician: Elyse Avelarjar Consults: 10/06/19 13:57 Consult Physician Routine Consulting Provider: Hanna Escobar Consult Reason/Comments: Renal failure Do you want consulting provider notified?: Yes 10/06/19 14:20 Consult Physician Routine Consulting Provider: Rocky Wellington Consult Reason/Comments: abnormal VQ scan, shortness of breath Do you want consulting provider notified?: Yes 10/06/19 15:03 Consult Physician Routine Consulting Provider: Tasha May Consult Reason/Comments: CHF Do you want consulting provider notified?: Yes 10/08/19 10:36 Consult Physician Routine Consulting Provider: Sandip Collado Consult Reason/Comments: possible hemodialysis catheter insertion tomorrow Do you want consulting provider notified?: Yes 10/14/19 14:26 Consult Physician Routine Consulting Provider: Teodoro Vuong Consult Reason/Comments: Possible cholecystits, calculi Do you want consulting provider notified?: Yes 10/17/19 10:14 Consult Physician Routine Consulting Provider: Teodoro Vuong Consult Reason/Comments: Abdominal pain, established patient Do you want consulting provider notified?: Yes Primary care physician: [facility] Course: Diagnoses on discharge: #1 severe shortness of breath improved most likely related to fluid overload patient related to acute on chronic systolic CHF secondary to end-stage renal disease was started on IV Lasix and consultation for nephrology was initiated to assess if patient needs to be started on hemodialysis during this admission. Patient and family are still waiting to make final decision in regards to hemodialysis. Would like to discuss with Dr. Wellington prior to making decision. Per nephrology IV Lasix has been DC'd and patient switched to Demadex. Hemodialysis access achieved on 10/09/[address] Collado. Patient will be on Monday hemodialysis schedule #2 abnormal chest x-ray revealing evidence of hilar fullness, will continue to monitor and repeat chest x-ray once fluid overload has resolved #3 indeterminate VQ scan, doubt pulmonary embolism, bilateral lower extremity Doppler was ordered. Venous Doppler of lower extremities showing no active DVT in the lower extremity. Persistent long segment thrombus in the right lower x- ray has been present on prior studies. Doppler study completed of upper extremities are negative for DVT in either extremity #4 underlying history of chronic atrial fibrillation #5 underlying history of chronic kidney disease stage IV #6 underlying history of diabetes mellitus controlled #7 underlying history of hypertension #8 underlying history of anemia of chronic renal disease #9. Urinary tract infection. Patient started on Rocephin. Urine culture completed and negative. Antibiotics will be DC'd #10 nausea and vomiting. Diet increased. Symptoms reappearing on 10/17/2019. Discussed case with surgical nurse practitioner plans for HIDA scan and abdominal ultrasound. Patient underwent laparoscopic cholecystectomy yesterday, she is doing well today #11. Chronic cholecystitis with calculs. Patient was evaluated by surgical services. #12. Increased bleeding at hemodialysis site. Eliquis currently on hold per cardiology. DDAVP was given per nephrology. We'll continue to monitor site. Patient has been started on anticoagulation Xarelto no signs of bleeding at hemodialysis site Hospital Course: Trina Carrillo, he is an 84-year-old female who was recently discharged from [facility], who presented to emergency room was a chief complaint of worsening shortness of breath, sharp pain in the chest, and significant swelling in the bilateral lower extremity, she was evaluated in emergency room and was admitted to telemetry floor for further evaluation and treatment BNP was elevated at 15,800 patient has known history of chronic renal failure with elevated BUN and creatinine she was evaluated by nephrology last admission and decision was made to start hemodialysis soon however patient condition deteriorated fast and patient and her family decided to return to emergency room. Due to shortness of breath patient had a VQ scan done in the emergency room, there was no clear evidence of any pulmonary embolism, there was matching ventilation and perfusion defects and the scan was read as intermediate probability for pulmonary embolus. Consultation for cardiology, pulmonary, nephrology were initiated in the emergency room. Patient was seen and examined on the telemetry floor, she is alert and oriented 3 in no apparent distress, at this time her chest pain has resolved and her shortness of breath has improved, she is still having significant bilateral lower extremity edema, otherwise she denies any complaints there is no fever or chills no headache or dizziness no chest pain, no cough no nausea or vomiting no abdominal pain no diarrhea no burning with urination no frequency or urgency no hematuria. On 10/07/2019 patient is alert and oriented 3. Patient does reports improvement with edema and shortness of breath. Patient remains on Lasix 40 every 8 hours. Patient still having some mild chest discomfort. Cardiology nephrology and pulmonary services are following. Venous Doppler was negative for DVTs. Urine culture has been ordered. On 10/08/2019 patient is alert and oriented 3. Family at bedside. Patient remains on IV Lasix. Plans for possible inpatient hemodialysis per nephrology recommendation. Family requesting to speak to Dr. Wellington in regards to VQ scan results before proceeding with hemodialysis. IV Lasix will be DC'd per nephrology and Demadex 20 mg daily ordered. Patient reports improvement with shortness of breath and chest pain. Per cardiology services anticoagulation has been switched from xarelto to eliquis. On 10/09/2019 patient is alert and oriented 3. Daughter at bedside. Patient has been started on Demadex IV Lasix DC'd plans for hemodialysis catheter access today per Dr. Collado anticoagulation currently on hold. Patient denies chest pain or shortness of breath. Patient denies nausea vomiting or diarrhea. Patient denies any urinary burning or frequency On 10/10/2019 patient is alert and oriented 3. Patient underwent hemodialysis catheter placement on 10/09/[address] Collado. Plans for hemodialysis today and for the next 3 days per nephrology. At this time patient is tired resting in bed. Patient denies any chest pain does report some discomfort around hemodialysis site. Patient denies any urinary burning or frequency On 10/11/2019 patient alert and oriented 3. Patient under went first chronic hemodialysis yesterday 1 L off. Plan for patient to get hemodialysis today and tomorrow with close monitoring of blood pressure and patient. Patient is alert and oriented. Patient denies chest pain. Patient denies shortness breath. Patient denies nausea vomiting or diarrhea. Patient denies any urinary burning or frequency On 10/12/2019 patient was seen and examined on the medical floor she is alert and oriented 3 in no apparent distress she accidentally pulled her dialysis catheter partially at night there is some bleeding around the catheter site otherwise she denies any complaints there is no fever or chills no headache or dizziness no chest pain no shortness of breath no cough no nausea or vomiting no abdominal pain no diarrhea and no urinary symptoms. On 10/13/2019 patient was seen and examined on the medical floor she is complaining of nausea and vomiting and feeling tired otherwise she denies any complaints, there is no fever or chills no headache or dizziness no chest pain no shortness of breath no cough no abdominal pain no diarrhea no burning with urination no frequency or urgency and no hematuria. On 10/14/2019 patient is alert and oriented 3. Patient is currently getting hemodialysis. Patient still having oozing from hemodialysis site. She is maintained on eliquis, dosage has been decreased per cardiology. Nausea and vomiting have improved. Patient denies chest pain or shortness of breath. P atient denies any urinary burning or frequency On 10/15/2019 patient is alert and oriented 3. Patient currently sitting up in chair. Patient having some oozing at hemodialysis site. Patient was dilated by Dr. Collado. Patient states coagulation currently on hold did receive DDAVP for the oozing per nephrology. Patient also evaluated by Dr. ferrer due to chronic cholecystitis continue to monitor symptoms at this time plans for surgical intervention. Patient denies chest pain or shortness breath. Patient denies nausea vomiting or diarrhea. Patient denies any urinary burning or frequency On 10/16/2019 patient's alert and oriented 3. Patient currently getting hemodialysis. Pressure dressing remains on hemodialysis site awaiting for Dr. Collado input. Patient will hopefully be restarted back on anticoagulation in the next 24-48 hours only to monitor site for bleeding. At this time patient denies chest pain or shortness of breath. Patient denies nausea vomiting or diarrhea. Patient denies any urinary burning or frequency On 10/17/2019 patient's alert and oriented 3. Patient having episode of nausea post dinner last evening. Patient also having increased abdominal discomfort and distention today. Did discuss case with surgical nurse practitioner. Case was discussed with Dr. Vuong. Plans for HIDA scan and abdominal x-ray. Patient was also started back on Xarelto. Hemodialysis site showing no signs of bleeding. We'll continue to monitor. On 10/18/2019 patient's alert and oriented 3. Patient has been nothing by mouth per surgical services. Abdominal discomfort and nausea have subsided. HIDA scan and x-ray completed surgical services to review. Patient is currently getting hemodialysis. Patient denies chest pain or shortness of breath. Patient denies nausea vomiting or diarrhea. Patient denies any urinary burning or frequency On 10/19/2019 patient was seen and examined on the medical floor she is alert and oriented 3 in no apparent distress she was just restarted on soft diet which she tolerated well at this time she is scheduled for HIDA scan on Monday otherwise she is receiving hemodialysis and is tolerating well there is no fever or chills no headache or dizziness no chest pain no shortness of breath no cough no nausea or vomiting no abdominal pain no diarrhea no burning was urination no frequency or urgency no hematuria On 10/20/2019 patient was seen and examined on the medical floor her daughter is present in the room, patient is still complaining of abdominal pain and sense of fullness after she eats otherwise there is no complaints at this time there is no fever or chills no headache or dizziness no chest pain no shortness of breath no cough no nausea or vomiting no diarrhea no burning with urination no frequency or urgency no hematuria. On 10/21/2019 patient was seen and examined on the medical floor she is alert and oriented 3 in no apparent distress she underwent small bowel series today which did not reveal any clear evidence of obstruction patient was reevaluated again by Dr. ferrer and at this time the plan is to proceed with laparoscopic cholecystectomy tomorrow. Currently patient is doing well there is no fever or chills no headache or dizziness no chest pain no shortness of breath no cough no nausea or vomiting no abdominal pain no diarrhea and no urinary symptoms. On 10/22/2019 patient was seen and examined on the medical floor she is scheduled to have laparoscopic cholecystectomy today there is no fever or chills no headache or dizziness no chest pain no shortness of breath no cough no nausea or vomiting no abdominal pain no diarrhea and no urinary symptoms On 10/23/2019 patient was seen and examined on the medical floor her daughter is in the room, she is alert and oriented 3 in no apparent distress, she underwent laparoscopic cholecystectomy yesterday with Dr. Vuong, she is still having some mild pain at the surgical site otherwise she denies any complaints she was unable to tolerate liquid diet well today and her diet is being advanced there is no nausea or vomiting. There is no fever or chills no headache or dizziness no chest pain no shortness of breath no cough no abdominal pain no diarrhea and no urinary symptoms On 10/24/2019 patient was seen and examined on the medical floor, her daughter is available in the room she is feeling better she is still having nausea after she eats otherwise she denies any complaints there is no fever or chills no headache or dizziness no chest pain no shortness of breath no cough no abdominal pain no diarrhea and no urinary symptoms. On 10/25/2019 patient was seen and examined on the medical floor she had a difficult night due to nausea and vomiting otherwise she denies any complaints there is no fever or chills no headache or dizziness no chest pain no shortness of breath no cough no abdominal pain no diarrhea no burning with urination no frequency or urgency no hematuria. On 10/26/2019 patient was seen and examined on the medical floor she is still having some nausea after meals she is maintained on clear liquid diet at this time plan for surgery is to advance diet and possible discharge to home tomorrow if not having any nausea or vomiting. Otherwise patient denies any complaints there is no fever or chills no headache or dizziness no chest pain no shortness of breath no cough no abdominal pain no burning with urination no frequency or urgency no hematuria On 10/27/2019 patient was seen and examined on the medical floor she is feeling better she was able to tolerate regular diet without any nausea or vomiting there is no fever or chills no headache or dizziness no chest pain no shortness of breath no cough no abdominal pain no diarrhea no burning was urination no frequency or urgency and no hematuria, patient was cleared by surgery to be discharged home today, she will be discharged home follow up in the office within 1 week or as needed. Health Concerns: CHF 1. Weigh yourself every morning after you urinate. If you gain 2-3 pounds overnight or 5 pounds in one week, call your primary physician for guidance on your medications. Keep a log of your weights. 2. Avoid salt, or foods with hidden salt. Extra salt makes your heart work harder and traps the fluid in your body for longer. 3. Take all of your medications as directed, especially your water pills. NEVER skip a dose. 4. Elevate your legs when you are not up moving around to help with circulation and prevent swelling. 5. Call your physician if you notice any extra swelling in your legs, ankles, feet or abdomen, if you have a new dry cough, if your shortness of breath worsens with activity or at rest, or if you feel more fatigued. Your weight will change more than others because we are still taking more fluid off of you with dialysis treatments. Dialysis will weigh you prior to every treatment and help you establish your baseline weights Patient Condition at Discharge: Serious Plan - Discharge Summary Discharge Rx Participant: Yes New Discharge Prescriptions: Continue Linagliptin [Tradjenta] 5 mg PO DAILY@1500 Allopurinol [Zyloprim] 200 mg PO DAILY@0800 Omeprazole [PriLOSEC] 20 mg PO DAILY@0700 Docusate Sodium [Stool Softener] 100 mg PO BID@0900,1999 Garlic 1 tab PO BID@0900,1999 Calcitriol 0.25 mcg PO SUTUTHSA@0800 Brinzolamide/Brimonidine Tart [Simbrinza 1%-0.2% Eye Drops] 1 drop BOTH EYES BID@0700,1999 Vit C/E/Zn/Coppr/Lutein/Zeaxan [Preservision Areds 2 Softgel] 1 cap PO BID@0900,1999 Ferrous Sulfate [Feosol] 325 mg PO DAILY@0800 Cholecalciferol (Vitamin D3) [Vitamin D3] 2,000 unit PO DAILY@0800 Wheat Dextrin [Benefiber] 1 packet PO BID@0800,1999 Isosorbide Mononitrate ER [Imdur] 60 mg PO DAILY@0800 Rivaroxaban [Xarelto] 10 mg PO DAILY@0800 Midodrine [ProAmatine] 10 mg PO TID@0700,1500,2300 Metoprolol Tartrate [Lopressor] 25 mg PO DAILY@1500 Ondansetron [Zofran] 4 mg PO Q12H PRN PRN Reason: Nausea Metoprolol Tartrate [Lopressor] 50 mg PO BID@0700,2300 Potassium Chloride ER [K-Dur 10] 30 meq PO BID@0800,1500 Acetaminophen-Codeine 300-30mg [Tylenol w/codeine #3] 1 tab PO Q6H PRN PRN Reason: Pain Calcium Acetate [PhosLo] 1,334 mg PO TID-W/MEALS 30 Days #180 tab Torsemide [Demadex] 20 mg PO Q48H #0 Sodium Bicarbonate Tab 1,300 mg PO TID@0800,1500,2100 Discontinued Cefuroxime Axetil [Ceftin] 500 mg PO BID@0800,1999 Discharge Medication List Allopurinol [Zyloprim] 200 mg PO DAILY@0800 01/22/14 [History] Linagliptin [Tradjenta] 5 mg PO DAILY@1500 01/22/14 [History] Omeprazole [PriLOSEC] 20 mg PO DAILY@0701/22/14 [History] Docusate Sodium [Stool Softener] 100 mg PO BID@09,199902/22/14 [History] Garlic 1 tab PO BID@899,199902/22/14 [History] Calcitriol 0.25 mcg PO SUTUTHSA@0808/22/14 [History] Brinzolamide/Brimonidine Tart [Simbrinza 1%-0.2% Eye Drops] 1 drop BOTH EYES BID@699,199905/11/17 [History] Vit C/E/Zn/Coppr/Lutein/Zeaxan [Preservision Areds 2 Softgel] 1 cap PO BID@899,199912/03/17 [History] Ferrous Sulfate [Feosol] 325 mg PO DAILY@0801/11/18 [History] Cholecalciferol (Vitamin D3) [Vitamin D3] 2,000 unit PO DAILY@0802/10/18 [History] Isosorbide Mononitrate ER [Imdur] 60 mg PO DAILY@0802/10/18 [History] Wheat Dextrin [Benefiber] 1 packet PO BID@799,199902/10/18 [History] Midodrine [ProAmatine] 10 mg PO TID@0700,1500,2300 04/10/18 [History] Rivaroxaban [Xarelto] 10 mg PO DAILY@0800 04/10/18 [History] Metoprolol Tartrate [Lopressor] 25 mg PO DAILY@1500 06/15/18 [History] Metoprolol Tartrate [Lopressor] 50 mg PO BID@0700,2300 09/18/18 [History] Ondansetron [Zofran] 4 mg PO Q12H PRN 09/18/18 [History] Potassium Chloride ER [K-Dur 10] 30 meq PO BID@0800,1500 04/02/19 [History] Acetaminophen-Codeine 300-30mg [Tylenol w/codeine #3] 1 tab PO Q6H PRN 09/30/19 [History] Calcium Acetate [PhosLo] 1,334 mg PO TID-W/MEALS 30 Days #180 tab 10/04/19 [Rx] Torsemide [Demadex] 20 mg PO Q48H #0 10/04/19 [Rx] Sodium Bicarbonate Tab 1,300 mg PO TID@0800,1500,2100 10/06/19 [History] Follow up Appointment(s)/Referral(s): Teodoro Vuong MD [Medical Doctor] - 1 Week [facility], [NON-STAFF] - Tasha May MD [STAFF PHYSICIAN] - 1 Week (Office will call with follow up appointment. ) Elyse Owen MD [Primary Care Provider] - 1-2 days (Office will call with follow up appointment. ) Rocky Wellington MD [STAFF PHYSICIAN] - 4 Weeks (Pulmonary - please follow up with Dr. Wellington within 1-2 weeks after being discharged. The office is closed today (10/27/19).) Antonio Ang DO [STAFF PHYSICIAN] - As Needed (They will follow up with you at your dialysis treatments. ) Patient Instructions/Handouts: Heart Failure (DC), Dialysis Diet (DC) Activity/Diet/Wound Care/Special Instructions: Hemodialysis Monday, Monday, Monday at [address] [phone] - chair time 5:20 p.m. - arrive at 4:50 p.m. on date of first dialysis - start date October 27
[2019-10-27 15:07] VITALS: BP 121/76; PULSE 104; RESP 18; TEMP 97.9
[2019-10-27] MEDS: LINAGLIPTIN 5 MG TABLET PO SCH (15:08)
== END 2019-10-27 15:55 | disposition home or self-care (01) | DRG 987 ==
LOC: EC 05:09 → 3SCARD 06:59 → UNDODISIN 10-12 15:00 → 4SSUR 10-15 22:50
PROVIDERS: ADMIT Internal Medicine; ATTEND Internal Medicine
PROC: 0JH63XZ Insertion of Tunneled Vascular Access Device into Chest Subcutaneous Tissue and Fascia, Percutaneous Approach (ICD-10-PCS; 2019-10-09 16:00)
PROC: 02HV33Z Insertion of Infusion Device into Superior Vena Cava, Percutaneous Approach (ICD-10-PCS; 2019-10-09 16:00)
PROC: 5A1D70Z Performance of Urinary Filtration, Intermittent, Less than 6 Hours Per Day (ICD-10-PCS; 2019-10-22)
PROC: 0FT44ZZ Resection of Gallbladder, Percutaneous Endoscopic Approach (ICD-10-PCS; principal; 2019-10-22 12:00)
DX: I13.2 Hypertensive heart and chronic kidney disease with heart failure and with stage 5 chronic kidney disease, or end stage renal disease (principal); I50.43 Acute on chronic combined systolic (congestive) and diastolic (congestive) heart failure; N18.6 End stage renal disease; I26.99 Other pulmonary embolism without acute cor pulmonale; E87.2 Acidosis; I48.19 Other persistent atrial fibrillation; N39.0 Urinary tract infection, site not specified; T82.838A Hemorrhage due to vascular prosthetic devices, implants and grafts, initial encounter; K80.10 Calculus of gallbladder with chronic cholecystitis without obstruction; N17.9 Acute kidney failure, unspecified; E87.1 Hypo-osmolality and hyponatremia; Y84.1 Kidney dialysis as the cause of abnormal reaction of the patient, or of later complication, without mention of misadventure at the time of the procedure; I42.8 Other cardiomyopathies; R53.81 Other malaise; N64.4 Mastodynia; Z96.642 Presence of left artificial hip joint; I08.1 Rheumatic disorders of both mitral and tricuspid valves; I27.20 Pulmonary hypertension, unspecified; N25.0 Renal osteodystrophy; E83.42 Hypomagnesemia; T50.2X5A Adverse effect of carbonic-anhydrase inhibitors, benzothiadiazides and other diuretics, initial encounter; E87.6 Hypokalemia; E78.5 Hyperlipidemia, unspecified; D63.1 Anemia in chronic kidney disease; I25.10 Atherosclerotic heart disease of native coronary artery without angina pectoris; E11.22 Type 2 diabetes mellitus with diabetic chronic kidney disease; K21.9 Gastro-esophageal reflux disease without esophagitis; M16.11 Unilateral primary osteoarthritis, right hip; Z79.899 Other long term (current) drug therapy; Z79.01 Long term (current) use of anticoagulants; Z88.5 Allergy status to narcotic agent; Z88.8 Allergy status to other drugs, medicaments and biological substances; Z79.84 Long term (current) use of oral hypoglycemic drugs; Z91.09 Other allergy status, other than to drugs and biological substances; Z86.718 Personal history of other venous thrombosis and embolism; Z86.19 Personal history of other infectious and parasitic diseases; Z90.49 Acquired absence of other specified parts of digestive tract; Z90.89 Acquired absence of other organs; Z90.710 Acquired absence of both cervix and uterus; Z87.891 Personal history of nicotine dependence; Z83.3 Family history of diabetes mellitus; Z83.6 Family history of other diseases of the respiratory system; Z99.2 Dependence on renal dialysis; Z91.15 Patient's noncompliance with renal dialysis
CPT/HCPCS: 36415; 36558; 70450; 71045; 71046; 74019; 74248; 76700; 76937; 77001; 78226; 78582; 80048; 80053; 81001; 83735; 83880; 84484; 85025; 85610; 85730; 86704; 86706; 87086; 87340; 88304; 90935; 93005; 93306; 93970; 96374; 99285

== ENCOUNTER 2020-05-16 18:53 | Inpatient (IN) | payer MEDICARE, BC ==
--- NOTE | 2020-05-16 19:22 | ED ---
General Adult HPI - General Chief complaint: Dizziness Stated complaint: vomiting/abd pain Time Seen by Provider: 05/16/20 19:19 Source: patient, family Mode of arrival: wheelchair Limitations: no limitations - History of Present Illness Initial comments: Patient presents to the ED with her daughter for evaluation. Patient states that she has had nausea, vomiting and dizziness since yesterday evening. Patient's daughter states that the patient is a dialysis patient, and she states that the patient was last dialyzed yesterday. Patient admits to having mild epigastric abdominal pain as well. Patient denies trauma or injury, fever or chills, headache, focal numbness/weakness/neuro deficit, chest pain or pressure, dyspnea, cough or cold symptoms, palpitations, syncope, diarrhea or constipation, bloody or melanotic stool, hematemesis, leg or calf swelling or pain, or any other symptoms or complaints. - Related Data Home Medications Medication Instructions Recorded Confirmed Linagliptin [Tradjenta] 5 mg PO DAILY@1500 01/22/14 10/06/19 Omeprazole [PriLOSEC] 20 mg PO DAILY@69901/22/14 10/06/19 allopurinoL [Zyloprim] 200 mg PO DAILY@79901/22/14 10/06/19 Docusate Sodium [Stool Softener] 100 mg PO BID@899,199902/22/14 10/06/19 Garlic 1 tab PO BID@899,199902/22/14 10/06/19 calcitrioL [Calcitriol] 0.25 mcg PO SUTUTHSA@79908/22/14 10/06/19 Brinzolamide/Brimonidine Tart 1 drop BOTH EYES BID@699,199905/11/17 10/06/19 [Simbrinza 1%-0.2% Eye Drops] Vit C/E/Zn/Coppr/Lutein/Zeaxan 1 cap PO BID@899,199912/03/17 10/06/19 [Preservision Areds 2 Softgel] Ferrous Sulfate [Feosol] 325 mg PO DAILY@79901/11/18 10/06/19 Cholecalciferol (Vitamin D3) 2,000 unit PO DAILY@79902/10/18 10/06/19 [Vitamin D3] Isosorbide Mononitrate ER [Imdur] 60 mg PO DAILY@0800 02/10/18 10/06/19 Wheat Dextrin [Benefiber] 1 packet PO BID@0800,2000 02/10/18 10/06/19 Midodrine [ProAmatine] 10 mg PO TID@0700,1500,2300 04/10/18 10/06/19 Rivaroxaban [Xarelto] 10 mg PO DAILY@0800 04/10/18 10/06/19 Metoprolol Tartrate [Lopressor] 25 mg PO DAILY@1500 06/15/18 10/06/19 Metoprolol Tartrate [Lopressor] 50 mg PO BID@0700,2300 09/18/18 10/06/19 Ondansetron [Zofran] 4 mg PO Q12H PRN 09/18/18 10/06/19 Potassium Chloride ER [K-Dur 10] 30 meq PO BID@0800,1500 04/02/19 10/06/19 Acetaminophen-Codeine 300-30mg 1 tab PO Q6H PRN 09/30/19 10/06/19 [Tylenol w/codeine #3] Sodium Bicarbonate Tab 1,300 mg PO TID@0800,1500,2100 10/06/19 10/06/19 Previous Rx's Medication Instructions Recorded Calcium Acetate [PhosLo] 1,334 mg PO TID-W/MEALS 30 Days 10/04/19 #180 tab Torsemide [Demadex] 20 mg PO Q48H #0 10/04/19 Allergies Allergy/AdvReac Type Severity Reaction Status Date / Time atorvastatin calcium Allergy Unknown Verified 05/16/20 19:01 [From Lipitor] codeine Allergy Unknown Verified 05/16/20 19:01 [From Tylenol-Codeine #3] adhesive tape AdvReac Intermediate Unknown Verified 05/16/20 19:01 hydrocodone AdvReac Vomiting Verified 05/16/20 19:01 Review of Systems ROS Statement: Those systems with pertinent positive or pertinent negative responses have been documented in the HPI. ROS Other: All systems not noted in ROS Statement are negative. Past Medical History Past Medical History: Atrial Fibrillation, Coronary Artery Disease (CAD), Cancer, Heart Failure, Diabetes Mellitus, Deep Vein Thrombosis (DVT), Eye Disorder, GERD/Reflux, Hypertension, Renal Disease Additional Past Medical History / Comment(s): Macular Degeneration and glaucoma, gallstones, stage 4 kidney failure, hx Uterine & groin CA; WEARS BILAT THIGH HIGH HOSE, uses cane or walker, patient states she has "2 blood clots in right groin since 2003" family states now clot is "through the whole leg", CHF, rt hip bone and bone History of Any Multi-Drug Resistant Organisms: ESBL, VRE Date of last positivie culture/infection: 02/11/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 left hip replacement, LEFT breast biopsy, darcy filter rt leg, biopsy of right nostril, biopsy rt breast Past Anesthesia/Blood Transfusion Reactions: No Reported Reaction Past Psychological History: No Psychological Hx Reported Smoking Status: Never smoker Past Alcohol Use History: None Reported Past Drug Use History: None Reported - Past Family History Mother Family Medical History: No Reported History Additional Family Medical History / Comment(s): Family states pt's mother " of pneumonia". Father Family Medical History: Diabetes Mellitus General Exam Limitations: no limitations General appearance: alert, in no apparent distress Head exam: Present: atraumatic, normocephalic Eye exam: Present: normal appearance, PERRL, EOMI. Absent: nystagmus ENT exam: Present: mucous membranes moist Neck exam: Present: other (Trachea is in midline). Absent: tenderness, meningis mus Respiratory exam: Present: normal lung sounds bilaterally, other (Rate sided dialysis catheter is in place). Absent: respiratory distress, wheezes, rales, rhonchi Cardiovascular Exam: Present: regular rate, irregular rhythm, normal heart sounds, other (Normal radial pulses bilaterally) GI/Abdominal exam: Present: soft, normal bowel sounds. Absent: distended, tenderness, guarding Extremities exam: Absent: tenderness, pedal edema, calf tenderness Neurological exam: Present: alert, oriented X3, CN II-XII intact. Absent: motor sensory deficit Psychiatric exam: Present: normal affect, normal mood Skin exam: Present: warm, dry, intact, normal color Course Vital Signs 05/16/20 05/16/20 18:56 22:30 Temperature 98.0 F Pulse Rate 52 L 83 Respiratory 20 20 Rate Blood Pressure 94/63 109/83 O2 Sat by Pulse 98 98 Oximetry - Reevaluation(s) Reevaluation #1: 05/16/20 23:31 Case, H&P, test results and ED management were discussed with Dr. Owen. He accepts hospital admission. He has no further recommendations at this time. 05/16/20 23:44 Patient denies development of any new symptoms while in the ED. Patient's abdomen remains soft and without any surgical signs on examination. Patient and daughter are aware of the patient's test results, and patient agrees with hospital admission at this time. EKG Findings - EKG Comments: EKG Findings:: Atrial fibrillation, ventricular rate of 88 bpm, normal QRS duration, normal QT interval, nonspecific ST and T-wave abnormality Medical Decision Making - Medical Decision Making Patient is afebrile. Patient's abdomen is soft and without any surgical signs on examination. I do not suspect that the patient's symptoms are from a surgical or emergent medical condition. Will admit the patient to the hospital for symptom control, observation and further evaluation. Dr. Owen has accepted hospital admission. - Lab Data Result diagrams: 05/16/20 22:25 05/16/20 22:25 Lab Results 05/16/20 05/16/20 05/16/20 Range/Units 22:25 22:25 22:25 WBC 12.5 H (3.8-10.6) k/uL RBC 2.88 L (3.80-5.40) m/uL Hgb 10.4 L (11.4-16.0) gm/dL Hct 33.1 L (34.0-46.0) % MCV 114.9 H (80.0-100.0) fL MCH 36.1 H (25.0-35.0) pg MCHC 31.5 (31.0-37.0) g/dL RDW 15.5 (11.5-15.5) % Plt Count 191 (150-450) k/uL Neutrophils % (Manual) 87 % Lymphocytes % (Manual) 9 % Monocytes % (Manual) 4 % Neutrophils # (Manual) 10.88 H (1.3-7.7) k/uL Lymphocytes # (Manual) 1.13 (1.0-4.8) k/uL Monocytes # (Manual) 0.50 (0-1.0) k/uL Nucleated RBCs 0 (0-0) /100 WBC Manual Slide Review Performed Large Platelets Present Polychromasia Present Macrocytosis Marked A Sodium 132 L (137-145) mmol/L Potassium 3.5 (3.5-5.1) mmol/L Chloride 92 L (98-107) mmol/L Carbon Dioxide 26 (22-30) mmol/L Anion Gap 14 mmol/L BUN 25 H (7-17) mg/dL Creatinine 3.34 H (0.52-1.04) mg/dL Est GFR (CKD-EPI)AfAm 14 (>60 ml/min/1.73 sqM) Est GFR (CKD-EPI)NonAf 12 (>60 ml/min/1.73 sqM) Glucose 125 H (74-99) mg/dL Calcium 9.8 (8.4-10.2) mg/dL Total Bilirubin 1.1 (0.2-1.3) mg/dL AST 28 (14-36) U/L ALT 15 (4-34) U/L Alkaline Phosphatase 140 H (38-126) U/L Troponin I 0.019 (0.000-0.034) ng/mL Total Protein 6.7 (6.3-8.2) g/dL Albumin 3.8 (3.5-5.0) g/dL Lipase 71 (23-300) U/L Disposition Clinical Impression: Atrial fibrillation, Dizziness, Vomiting Disposition: ADMITTED IP TO THIS [facility] Condition: Stable Is patient prescribed a controlled substance at d/c from ED?: No Referrals: Elyse Owen MD [Primary Care Provider] - 1-2 days Time of Disposition: 23:47
[2020-05-16] MEDS ORDERED: ONDANSETRON 4 MG/2 ML VIAL IVP STA (19:33)
[2020-05-16] MEDS ORDERED: SODIUM CHLORIDE 0.9% 500 ML 250 ML IV STA (19:33)
[2020-05-16] MEDS ORDERED: PANTOPRAZOLE 40 MG/10 ML VIAL IVP STA (19:37)
[2020-05-16] MEDS ORDERED: MORPHINE SULFATE 4 MG/ML SYRINGE IVP STA (21:52)
[2020-05-16 22:38] LABS: HCT 33.1 % (34.0-46.0); HGB 10.4 gm/dL (11.4-16.0); MCH 36.1 pg (25.0-35.0); MCHC 31.5 g/dL (31.0-37.0); MCV 114.9 fL (80.0-100.0); Macrocytosis Marked; Mean Platelet Volume 8.3; Platelet Count 191 k/uL (150-450); RBC 2.88 m/uL (3.80-5.40); RDW 15.5 % (11.5-15.5); WBC 12.5 k/uL (3.8-10.6)
[2020-05-16 22:52] LABS: Albumin 3.8 g/dL (3.5-5.0); Calcium 9.8 mg/dL (8.4-10.2); Potassium 3.5 mmol/L (3.5-5.1); Total Bilirubin 1.1 mg/dL (0.2-1.3); Total Protein 6.7 g/dL (6.3-8.2)
[2020-05-16 23:01] LABS: Large Platelets Present; Lymphocytes # (M) 1.13 k/uL (1.0-4.8); Neutrophils # (M) 10.88 k/uL (1.3-7.7); Neutrophils % (M) 87 %; Nucleated Red Blood Cells 0 /100 WBC (0-0); Polychromasia Present; Total Cells Counted 100
[2020-05-17] MEDS ORDERED: MORPHINE SULFATE 2 MG/ML SYRINGE IVP STA (02:03)
[2020-05-17 06:21] LABS: Glucose,Whole Blood 115 mg/dL (75-99)
[2020-05-17] MEDS: RIVAROXABAN 10 MG TAB PO SCH (08:18)
[2020-05-17] MEDS ORDERED: ONDANSETRON 4 MG TAB PO PRN (08:19)
[2020-05-17] MEDS: ONDANSETRON 4 MG/2 ML VIAL IVP PRN ×2 (08:19→20:56)
[2020-05-17 08:40] LABS: Basophils % (A) 0 %; Eosinophils % (A) 0 %; HCT 33.3 % (34.0-46.0); HGB 10.6 gm/dL (11.4-16.0); Hypochromasia Slight; Lymphocytes # (A) 1.5 k/uL (1.0-4.8); Lymphocytes % (A) 14 %; MCH 36.8 pg (25.0-35.0); MCHC 31.8 g/dL (31.0-37.0); MCV 115.9 fL (80.0-100.0); Macrocytosis Marked; Mean Platelet Volume 8.1; Monocytes # (A) 0.5 k/uL (0-1.0); Monocytes % (A) 5 %; Neutrophils # (A) 8.3 k/uL (1.3-7.7); Neutrophils % (A) 78 %; Platelet Count 229 k/uL (150-450); RBC 2.87 m/uL (3.80-5.40); RDW 15.7 % (11.5-15.5); WBC 10.6 k/uL (3.8-10.6)
[2020-05-17 08:56] LABS: Albumin 3.6 g/dL (3.5-5.0); Calcium 9.6 mg/dL (8.4-10.2); Potassium 3.9 mmol/L (3.5-5.1); Total Bilirubin 1.5 mg/dL (0.2-1.3); Total Protein 6.5 g/dL (6.3-8.2)
[2020-05-17] MEDS ORDERED: allopurinoL 100 MG TAB PO SCH (09:00)
[2020-05-17] MEDS: CALCIUM ACETATE 667 MG TAB PO SCH ×3 (09:10→16:51)
[2020-05-17] MEDS: PANTOPRAZOLE 40 MG TABLET PO SCH (09:10)
[2020-05-17] MEDS: DOCUSATE 100 MG CAP PO SCH ×2 (09:11→20:51)
[2020-05-17] MEDS: TORSEMIDE 20 MG TAB PO SCH (09:12)
[2020-05-17] MEDS: BRIMONIDINE TARTRATE 0.2% DROPS 5 ML BTL BOTH EYES SCH ×2 (09:12→20:52)
[2020-05-17] MEDS: VIT A,C & E-LUTEIN-MINERALS 1 EACH TAB PO SCH ×2 (09:12→20:51)
[2020-05-17 09:13] LABS: Polychromasia Present
[2020-05-17] MEDS: DORZOLAMIDE HCL 2% DROPS 10 ML BTL BOTH EYES SCH ×2 (09:13→20:52)
--- NOTE | 2020-05-17 09:16 | US ---
EXAMINATION TYPE: US carotid duplex BILAT DATE OF EXAM: 05/17/2020 COMPARISON: NONE CLINICAL HISTORY: dizziness. EXAM MEASUREMENTS: RIGHT: Peak Systolic Velocity (PSV) cm/sec ----- Right CCA: 57.0 ----- Right ICA: 47.6 ----- Right ECA: 83.4 ICA/CCA ratio: 0.8 RIGHT: End Diastole cm/sec ----- Right CCA: 8.7 ----- Right ICA: 13.5 ----- Right ECA: 0.0 LEFT: Peak Systolic Velocity (PSV) cm/sec ----- Left CCA: 48.8 ----- Left ICA: 55.7 ----- Left ECA: 70.6 ICA/CCA ratio: 1.1 LEFT: End Diastole cm/sec ----- Left CCA: 8.6 ----- Left ICA: 17.4 ----- Left ECA: 0.0 VERTEBRALS (direction of flow): Right Vertebral: Antegrade Left Vertebral: Antegrade Rhythm: Normal No significant stenosis seen. No elevated velocities. Minimal plaque noted. IMPRESSION: No evidence for hemodynamically significant stenosis. Criteria for Assigning % of Stenosis / Diameter reduction (Estimation based on the indirect measurements of the internal carotid artery velocities (ICA PSV). 1. Normal (no stenosis)=ICA PSV < 125 cm/s: ratio < 2.0: ICA EDV<40 cm/s. 2. Less than 50% stenosis=ICA PSV < 125 cm/s: ratio < 2.0: ICA EDV<40 cm/s. 3. 50 to 69% stenosis=ICA PSV of 125 to 230 cm/s: ration 2.0 ? 4.0: ICA EDV 40-100 cm/s. 4. Greater than 70% stenosis to near occlusion= ICA PSV > 230 cm/s: ratio > 4.0: ICA EDV > 100 cm/s. 5. Near occlusion= ICA PSV velocities may be low or undetectable: variable ratio and ICA EDV. 6. Total occlusion=unable to detect flow.
--- NOTE | 2020-05-17 09:47 | P.HPIM ---
History of Present Illness H&P Date: 05/17/20 History of present illness: This is an 85-year-old female with history of persistent atrial fibrillation, end-stage renal disease on hemodialysis Monday, chronic systolic heart failure. Patient states that she felt well after she finished her dialysis treatment on Monday but then when she got home was feeling weak, dizzy. She states she changed her close and walks into the living room and noticed the dizziness was worsening. By Monday it was very severe. She states she was also having some chest pain or shortness of breath as well as palpitations. Chest pain was in the right upper anterior chest. Patient also relates that she was vomiting all day and was unable to take her medications. She denies having any diarrhea. Patient has epigastric pain. Today, patient complains of her legs and hips hurting from arthritis. She has been up to the bathroom states she was feeling weaker than normal. She denies having any chest pain or shortness of breath at the time. She had a little bit of dizziness and she still has some nausea. No vomiting. Patient is normally very active and independent. The patient was last hospitalized in October of this year at which time she was seen for acute on chronic systolic heart failure with prolonged stay and at that time was initiated on hemodialysis and underwent cholecystectomy. Echocardiogram at that time revealed EF of 25-30% with mild concentric left ventricular hypertrophy, severe mitral regurgitation, mild aortic stenosis, severe tricuspid regurgitation. Patient presented to [facility] emergency center and found to be afebrile, heart rate 52, blood pressure 94/63, pulse ox 90% on room air. EKG atrial fibrillation at rate of 88 bpm, nonspecific ST changes. WBC 12.5, hemoglobin 10.4, platelet count 191. Sodium 132, potassium 3.5, chloride 92, CO2 26, BUN 25 and creatinine 3.34. Blood sugar 125. Alkaline phosphatase 140 otherwise liver function tests normal. Troponin 0.019. Review Of Systems: Constitutional: No fever, no chills. Reports weakness, reports fatigue. EENT: No headache. Reports dizziness. Lungs: Reports shortness of breath, cough, no sputum production. No wheezing. Cardiovascular: Reports chest pain, no worsening lower extremity edema. Reports palpitations. No paroxysmal nocturnal dyspnea. No orthopnea. Reports lightheadedness and dizziness. No syncopal episodes. Abdominal: Reports abdominal pain. Reports nausea, reports vomiting. No diarrhea. No constipation. No bloody or tarry stools reports loss of appetite. Musculoskeletal: No myalgias. Reports muscle weakness, no gait dysfunction, no frequent falls. No back pain. No neck pain. Integumentary: No wounds, no lesions. No rash or pruritus. No unusual bru ising. Neurologic: No aphasia. No facial droop. No change in mentation. Physical examination: Gen: This is a 85-year-old female. She is resting a recliner and a ppears to be in no acute distress. VS: Afebrile, heart rate 73, blood pressure 139/69, pulse ox 99% on 2 L nasal cannula. HEENT: Head is atraumatic, normocephalic. Pupils equal, round. Sclerae is ani cteric. NECK: Supple. No JVD. No lymphadenopathy. No thyromegaly. LUNGS: Clear to auscultation. No wheezes or rhonchi. No intercostal retractions. HEART: Regular rate and rhythm. Systolic murmur. ABDOMEN: Soft. Bowel sounds are present. No masses. No tenderness. EXTREMITIES: Trace to 1+ bilateral pedal edema. No calf tenderness. Dorsalis pedis palpable bilaterally. NEUROLOGICAL: Patient is awake, alert and oriented x3. Cranial nerves 2 through 12 are grossly intact. Assessment: Dizziness complicated by vomiting and inability to take medications Chronic systolic heart failure Persistent atrial fibrillation Severe Pulmonary hypertension Valvular heart disease with severe mitral regurgitation, mild aortic stenosis, severe tricuspid regurgitation End-stage renal disease on hemodialysis History of DVT with prior Darcy filter Diabetes mellitus type 2 Hypertension Hyperlipidemia Plan: Continue Xarelto 10 mg daily, Lopressor 50 mg twice daily and 25 mg at 1500 Obtain 2-D echocardiogram and Doppler study to assess cardiac structure and function Obtain orthostatic vital signs Repeat troponins Further recommendations to follow based upon clinical course Thank you kindly for this consultation. Nurse practitioner note has been reviewed, I agree with documented findings and plan of care. Patient was seen and examined. Past Medical History Past Medical History: Atrial Fibrillation, Coronary Artery Disease (CAD), Cancer, Heart Failure, Diabetes Mellitus, Deep Vein Thrombosis (DVT), Eye Disorder, GERD/Reflux, Hypertension, Renal Disease Additional Past Medical History / Comment(s): Macular Degeneration and glaucoma, gallstones, stage 4 kidney failure, hx Uterine & groin CA; WEARS BILAT THIGH HIGH HOSE, uses cane or walker, patient states she has "2 blood clots in right groin since 2003" family states now clot is "through the whole leg", CHF, rt hip bone and bone, dialysis since october 2019 M,W,F History of Any Multi-Drug Resistant Organisms: ESBL, VRE Date of last positivie culture/infection: 02/11/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 left hip replacement, LEFT breast biopsy, darcy filter rt leg, biopsy of right nostril, biopsy rt breast, right chest dialysis cath Past Anesthesia/Blood Transfusion Reactions: No Reported Reaction Past Psychological History: No Psychological Hx Reported Smoking Status: Former smoker Past Alcohol Use History: None Reported Additional Past Alcohol Use History / Comment(s): smoked 1 pkg from 1961 to 1971 Past Drug Use History: None Reported - Past Family History Mother Family Medical History: No Reported History Additional Family Medical History / Comment(s): Family states pt's mother " of pneumonia". Father Family Medical History: Diabetes Mellitus Medications and Allergies Home Medications Medication Instructions Recorded Confirmed Type Linagliptin [Tradjenta] 5 mg PO DAILY@1500 01/22/14 05/17/20 History Omeprazole [PriLOSEC] 20 mg PO DAILY@0700 01/22/14 05/17/20 History allopurinoL [Zyloprim] 200 mg PO DAILY@0800 01/22/14 05/17/20 History Docusate Sodium [Stool Softener] 100 mg PO BID@09,199902/22/14 05/17/20 History Garlic 1 tab PO BID@899,199902/22/14 05/17/20 History Brinzolamide/Brimonidine Tart 1 drop BOTH EYES BID@07,199905/11/17 05/17/20 History [Simbrinza 1%-0.2% Eye Drops] Vit C/E/Zn/Coppr/Lutein/Zeaxan 1 cap PO BID@0900,199912/03/17 05/17/20 History [Preservision Areds 2 Softgel] Cholecalciferol (Vitamin D3) 2,000 unit PO DAILY@0800 02/10/18 05/17/20 History [Vitamin D3] Wheat Dextrin [Benefiber] 1 packet PO DAILY@0800 02/10/18 05/17/20 History Midodrine [ProAmatine] 10 mg PO TID@0700,1500,2200 04/10/18 05/17/20 History Rivaroxaban [Xarelto] 10 mg PO DAILY@0800 04/10/18 05/17/20 History Metoprolol Tartrate [Lopressor] 25 mg PO DAILY@1500 06/15/18 05/17/20 History Metoprolol Tartrate [Lopressor] 50 mg PO BID@0700,2200 09/18/18 05/17/20 History Ondansetron [Zofran] 4 mg PO Q12H PRN 09/18/18 05/17/20 History Calcium Acetate [PhosLo] 1,334 mg PO TID@0800,1200,1600 05/17/20 05/17/20 History Torsemide [Demadex] 20 mg PO DAILY@0800 05/17/20 05/17/20 History Allergies Allergy/AdvReac Type Severity Reaction Status Date / Time atorvastatin calcium Allergy Unknown Verified 05/16/20 19:01 [From Lipitor] codeine Allergy Unknown Verified 05/16/20 19:01 [From Tylenol-Codeine #3] adhesive tape AdvReac Intermediate Unknown Verified 05/16/20 19:01 hydrocodone AdvReac Vomiting Verified 05/16/20 19:01 Physical Exam Vitals: Vital Signs Temp Pulse Pulse Resp BP BP Pulse Ox 05/17/20 08:14 97.6 F 73 18 139/69 99 05/17/20 02:50 98.9 F 104 H 18 118/67 100 05/17/20 02:00 99 16 120/78 98 05/16/20 23:47 89 18 111/67 98 05/16/20 22:30 83 20 109/83 98 05/16/20 18:56 98.0 F 52 L 20 94/63 98 Intake and Output 05/16/20 05/17/20 05/17/20 22:59 06:59 14:59 Other: Voiding Method Bedpan # Voids 1 1 Weight 73.028 kg 73.1 kg Results CBC & Chem 7: 05/17/20 08:22 05/17/20 08:22 Labs: Abnormal Lab Results - Last 24 Hours (Table) 05/16/20 05/16/20 05/17/20 Range/Units 22:25 22:25 06:20 WBC 12.5 H (3.8-10.6) k/uL RBC 2.88 L (3.80-5.40) m/uL Hgb 10.4 L (11.4-16.0) gm/dL Hct 33.1 L (34.0-46.0) % MCV 114.9 H (80.0-100.0) fL MCH 36.1 H (25.0-35.0) pg RDW (11.5-15.5) % Neutrophils # (Manual) 10.88 H (1.3-7.7) k/uL Macrocytosis Marked A Sodium 132 L (137-145) mmol/L Chloride 92 L (98-107) mmol/L BUN 25 H (7-17) mg/dL Creatinine 3.34 H (0.52-1.04) mg/dL Glucose 125 H (74-99) mg/dL POC Glucose (mg/dL) 115 H (75-99) mg/dL Total Bilirubin (0.2-1.3) mg/dL Alkaline Phosphatase 140 H (38-126) U/L 05/17/20 05/17/20 Range/Units 08:22 08:22 WBC (3.8-10.6) k/uL RBC 2.87 L (3.80-5.40) m/uL Hgb 10.6 L (11.4-16.0) gm/dL Hct 33.3 L (34.0-46.0) % MCV 115.9 H (80.0-100.0) fL MCH 36.8 H (25.0-35.0) pg RDW 15.7 H (11.5-15.5) % Neutrophils # (Manual) (1.3-7.7) k/uL Macrocytosis Marked A Sodium 134 L (137-145) mmol/L Chloride 93 L (98-107) mmol/L BUN 30 H (7-17) mg/dL Creatinine 4.02 H (0.52-1.04) mg/dL Glucose 156 H (74-99) mg/dL POC Glucose (mg/dL) (75-99) mg/dL Total Bilirubin 1.5 H (0.2-1.3) mg/dL Alkaline Phosphatase 133 H (38-126) U/L Thrombosis Risk Factor Assmnt - Choose All That Apply Any of the Below Risk Factors Present?: Yes Each Factor Represents 1 point: Obesity (BMI >25) Other Risk Factors: Yes Each Risk Factor Represents 3 Points: Age 75 years or older Other congenital or acquired thrombophilia - If yes, enter type in comment: No Thrombosis Risk Factor Assessment Total Risk Factor Score: 4 Thrombosis Risk Factor Assessment Level: Moderate Risk
--- NOTE | 2020-05-17 10:48 | P.CRDCN ---
<Kirsten Mena A - Last Filed: 05/17/20 10:47> History of Present Illness Consult date: 05/17/20 Reason for Consult (text): Dizziness History of present illness: History of present illness: This is an 85-year-old female with history of persistent atrial fibrillation, end-stage renal disease on hemodialysis Monday, chronic systolic heart failure. Patient states that she felt well after she finished her dialysis treatment on Monday but then when she got home was feeling weak, dizzy. She states she changed her close and walks into the living room and noticed the dizziness was worsening. By Monday it was very severe. She states she was also having some chest pain or shortness of breath as well as palpitations. Chest pain was in the right upper anterior chest. Patient also relates that she was vomiting all day and was unable to take her medications. She denies having any diarrhea. Patient has epigastric pain. Today, patient complains of her legs and hips hurting from arthritis. She has been up to the bathroom states she was feeling weaker than normal. She denies having any chest pain or shortness of breath at the time. She had a little bit of dizziness and she still has some nausea. No vomiting. Patient is normally very active and independent. The patient was last hospitalized in October of this year at which time she was seen for acute on chronic systolic heart failure with prolonged stay and at that time was initiated on hemodialysis and underwent cholecystectomy. Echocardiogram at that time revealed EF of 25-30% with mild concentric left ventricular hypertrophy, severe mitral regurgitation, mild aortic stenosis, severe tricuspid regurgitation. Patient presented to [facility] emergency center and found to be afebrile, heart rate 52, blood pressure 94/63, pulse ox 90% on room air. EKG atrial fibrillation at rate of 88 bpm, nonspecific ST changes. WBC 12.5, hemoglobin 10.4, platelet count 191. Sodium 132, potassium 3.5, chloride 92, CO2 26, BUN 25 and creatinine 3.34. Blood sugar 125. Alkaline phosphatase 140 otherwise liver function tests normal. Troponin 0.019. Review Of Systems: Constitutional: No fever, no chills. Reports weakness, reports fatigue. EENT: No headache. Reports dizziness. Lungs: Reports shortness of breath, cough, no sputum production. No wheezing. Cardiovascular: Reports chest pain, no worsening lower extremity edema. Reports palpitations. No paroxysmal nocturnal dyspnea. No orthopnea. Reports lightheadedness and dizziness. No syncopal episodes. Abdominal: Reports abdominal pain. Reports nausea, reports vomiting. No diarrhea. No constipation. No bloody or tarry stools reports loss of appetite. Musculoskeletal: No myalgias. Reports muscle weakness, no gait dysfunction, no frequent falls. No back pain. No neck pain. Integumentary: No wounds, no lesions. No rash or pruritus. No unusual bruising. Neurologic: No aphasia. No facial droop. No change in mentation. Physical examination: Gen: This is a 85-year-old female. She is resting a recliner and appears to be in no acute distress. VS: Afebrile, heart rate 73, blood pressure 139/69, pulse ox 99% on 2 L nasal cannula. HEENT: Head is atraumatic, normocephalic. Pupils equal, round. Sclerae is anicteric. NECK: Supple. No JVD. No lymphadenopathy. No thyromegaly. LUNGS: Clear to auscultation. No wheezes or rhonchi. No intercostal retractions. HEART: Regular rate and rhythm. Systolic murmur. ABDOMEN: Soft. Bowel sounds are present. No masses. No tenderness. EXTREMITIES: Trace to 1+ bilateral pedal edema. No calf tenderness. Dorsalis pedis palpable bilaterally. NEUROLOGICAL: Patient is awake, alert and oriented x3. Cranial nerves 2 through 12 are grossly intact. Assessment: Dizziness complicated by vomiting and inability to take medications Chronic systolic heart failure Persistent atrial fibrillation Severe Pulmonary hypertension Valvular heart disease with severe mitral regurgitation, mild aortic stenosis, severe tricuspid regurgitation End-stage renal disease on hemodialysis History of DVT with prior [place] filter Diabetes mellitus type 2 Hypertension Hyperlipidemia Plan: Continue Xarelto 10 mg daily, Lopressor 50 mg twice daily and 25 mg at 1500 Obtain 2-D echocardiogram and Doppler study to assess cardiac structure and function Obtain orthostatic vital signs Repeat troponins Further recommendations to follow based upon clinical course Thank you kindly for this consultation. Nurse practitioner note has been reviewed, I agree with documented findings and plan of care. Patient was seen and examined. Past Medical History Past Medical History: Atrial Fibrillation, Coronary Artery Disease (CAD), Cancer, Heart Failure, Diabetes Mellitus, Deep Vein Thrombosis (DVT), Eye Disorder, GERD/Reflux, Hypertension, Renal Disease Additional Past Medical History / Comment(s): Macular Degeneration and glaucoma, gallstones, stage 4 kidney failure, hx Uterine & groin CA; WEARS BILAT THIGH HIGH HOSE, uses cane or walker, patient states she has "2 blood clots in right groin since 2003" family states now clot is "through the whole leg", CHF, rt hip bone and bone, dialysis since october 2019 M,W,F History of Any Multi-Drug Resistant Organisms: ESBL, VRE Date of last positivie culture/infection: 02/11/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 left hip replacement, LEFT breast biopsy, darcy filter rt leg, biopsy of right nostril, biopsy rt breast, right chest dialysis cath Past Anesthesia/Blood Transfusion Reactions: No Reported Reaction Past Psychological History: No Psychological Hx Reported Smoking Status: Former smoker Past Alcohol Use History: None Reported Additional Past Alcohol Use History / Comment(s): smoked 1 pkg from 1961 to 1971 Past Drug Use History: None Reported - Past Family History Mother Family Medical History: No Reported History Additional Family Medical History / Comment(s): Family states pt's mother " of pneumonia". Father Family Medical History: Diabetes Mellitus Medications and Allergies Home Medications Medication Instructions Recorded Confirmed Type Linagliptin [Tradjenta] 5 mg PO DAILY@1500 01/22/14 05/17/20 History Omeprazole [PriLOSEC] 20 mg PO DAILY@0700 01/22/14 05/17/20 History allopurinoL [Zyloprim] 200 mg PO DAILY@0800 01/22/14 05/17/20 History Docusate Sodium [Stool Softener] 100 mg PO BID@899,199902/22/14 05/17/20 History Garlic 1 tab PO BID@899,199902/22/14 05/17/20 History Brinzolamide/Brimonidine Tart 1 drop BOTH EYES BID@07,199905/11/17 05/17/20 History [Simbrinza 1%-0.2% Eye Drops] Vit C/E/Zn/Coppr/Lutein/Zeaxan 1 cap PO BID@0900,199912/03/17 05/17/20 History [Preservision Areds 2 Softgel] Cholecalciferol (Vitamin D3) 2,000 unit PO DAILY@0800 02/10/18 05/17/20 History [Vitamin D3] Wheat Dextrin [Benefiber] 1 packet PO DAILY@0800 02/10/18 05/17/20 History Midodrine [ProAmatine] 10 mg PO TID@0700,1500,2200 04/10/18 05/17/20 History Rivaroxaban [Xarelto] 10 mg PO DAILY@0800 04/10/18 05/17/20 History Metoprolol Tartrate [Lopressor] 25 mg PO DAILY@1500 06/15/18 05/17/20 History Metoprolol Tartrate [Lopressor] 50 mg PO BID@0700,2200 09/18/18 05/17/20 History Ondansetron [Zofran] 4 mg PO Q12H PRN 09/18/18 05/17/20 History Calcium Acetate [PhosLo] 1,334 mg PO TID@0800,1200,1600 05/17/20 05/17/20 History Torsemide [Demadex] 20 mg PO DAILY@0800 05/17/20 05/17/20 History traMADol HCL 50 mg PO Q6H PRN 05/17/20 05/17/20 History Allergies Allergy/AdvReac Type Severity Reaction Status Date / Time atorvastatin calcium Allergy Unknown Verified 05/17/20 10:14 [From Lipitor] codeine Allergy Unknown Verified 05/17/20 10:14 [From Tylenol-Codeine #3] adhesive tape AdvReac Intermediate Unknown Verified 05/17/20 10:14 hydrocodone AdvReac Vomiting Verified 05/17/20 10:14 Physical Exam Vitals: Vital Signs Temp Pulse Pulse Resp BP BP Pulse Ox 05/17/20 08:14 97.6 F 73 18 139/69 99 05/17/20 02:50 98.9 F 104 H 18 118/67 100 05/17/20 02:00 99 16 120/78 98 05/16/20 23:47 89 18 111/67 98 05/16/20 22:30 83 20 109/83 98 05/16/20 18:56 98.0 F 52 L 20 94/63 98 Intake and Output 05/16/20 05/17/20 05/17/20 22:59 06:59 14:59 Other: Voiding Method Bedpan Bedpan # Voids 1 1 Weight 73.028 kg 73.1 kg Results 05/17/20 08:22 05/17/20 08:22 Cardiac Enzymes 05/16/20 05/16/20 05/17/20 Range/Units 22:25 22:25 08:22 AST 28 30 (14-36) U/L Troponin I 0.019 (0.000-0.034) ng/mL 05/17/20 Range/Units 08:22 AST (14-36) U/L Troponin I 0.033 (0.000-0.034) ng/mL CBC 05/16/20 05/17/20 Range/Units 22:25 08:22 WBC 12.5 H 10.6 (3.8-10.6) k/uL RBC 2.88 L 2.87 L (3.80-5.40) m/uL Hgb 10.4 L 10.6 L (11.4-16.0) gm/dL Hct 33.1 L 33.3 L (34.0-46.0) % Plt Count 191 229 (150-450) k/uL Comprehensive Metabolic Panel 05/16/20 05/17/20 Range/Units 22:25 08:22 Sodium 132 L 134 L (137-145) mmol/L Potassium 3.5 3.9 (3.5-5.1) mmol/L Chloride 92 L 93 L (98-107) mmol/L Carbon Dioxide 26 25 (22-30) mmol/L BUN 25 H 30 H (7-17) mg/dL Creatinine 3.34 H 4.02 H (0.52-1.04) mg/dL Glucose 125 H 156 H (74-99) mg/dL Calcium 9.8 9.6 (8.4-10.2) mg/dL AST 28 30 (14-36) U/L ALT 15 16 (4-34) U/L Alkaline Phosphatase 140 H 133 H (38-126) U/L Total Protein 6.7 6.5 (6.3-8.2) g/dL Albumin 3.8 3.6 (3.5-5.0) g/dL Current Medications Generic Name Dose Route Start Last Admin Trade Name Kuldeep PRN Reason Stop Dose Admin Allopurinol 200 mg 05/17/20 09:00 05/17/20 09:11 Allopurinol 100 Mg Tab PO 200 mg DAILY@0800 [facility] Administration Brimonidine Tartrate 1 drops 05/17/20 09:00 05/17/20 09:12 Brimonidine Tartrate 0.2% Drops 5 Ml Btl BOTH EYES 1 drops BID@ [facility] Administration Calcium Acetate 1,334 mg 05/17/20 09:00 05/17/20 09:10 Calcium Acetate 667 Mg Tab PO 1,334 mg TID@0800,1200,1600 [facility] Administration Calcium Polycarbophil 625 mg 05/17/20 09:00 05/17/20 09:12 Calcium Polycarbophil 625 Mg Tab PO 625 mg DAILY@08 [facility] Administration Cholecalciferol 2,000 unit 05/18/20 08:00 Cholecalciferol 1,000 Unit Tab PO DAILY@08 [facility] Docusate Sodium 100 mg 05/17/20 09:00 05/17/20 09:11 Docusate 100 Mg Cap PO 100 mg BID@ [facility] Administration Dorzolamide HCl 1 drops 05/17/20 09:00 05/17/20 09:13 Dorzolamide Hcl 2% Drops 10 Ml Btl BOTH EYES 1 drops BID@ [facility] Administration Linagliptin 5 mg 05/17/20 15:00 Linagliptin 5 Mg Tablet PO DAILY@1500 [facility] Metoprolol Tartrate 25 mg 05/17/20 15:00 Metoprolol Tartrate 25 Mg Tab PO DAILY@1500 [facility] Metoprolol Tartrate 50 mg 05/17/20 22:00 Metoprolol Tartrate 50 Mg Tab PO BID@0700,2200 [facility] Midodrine 10 mg 05/17/20 15:00 Midodrine 5 Mg Tab PO TID@0700,1500,2200 [facility] Multivitamins/Minerals 1 each 05/17/20 09:00 05/17/20 09:12 Vit A,C & S-[id number]-[id number] 1 Each Tab PO 1 each BID@899,1999 [facility] Administration Ondansetron HCl 4 mg 05/16/20 23:41 05/17/20 08:19 Ondansetron 4 Mg/2 Ml Vial IVP 4 mg Q8HR PRN Administration Nausea And Vomiting Ondansetron HCl 4 mg 05/17/20 08:19 Ondansetron 4 Mg Tab PO Q12H PRN Nausea Pantoprazole Sodium 40 mg 05/17/20 09:00 05/17/20 09:10 Pantoprazole 40 Mg Tablet PO 40 mg DAILY@0700 [facility] Administration Rivaroxaban 10 mg 05/17/20 08:00 05/17/20 08:18 Rivaroxaban 10 Mg Tab PO 10 mg DAILY@0800 [facility] Administration Torsemide 20 mg 05/17/20 09:00 05/17/20 09:12 Torsemide 20 Mg Tab PO 20 mg DAILY@0800 [facility] Administration Intake and Output 05/16/20 05/17/20 05/17/20 22:59 06:59 14:59 Other: Voiding Method Bedpan Bedpan # Voids 1 1 Weight 73.028 kg 73.1 kg 05/17/20 08:22 05/17/20 08:22 <Glenn Mullins - Last Filed: 05/17/20 13:44> Physical Exam Vitals: Vital Signs Temp Pulse Pulse Resp BP BP Pulse Ox 05/17/20 11:45 98.5 F 101 H 18 104/71 98 05/17/20 08:14 97.6 F 73 18 139/69 99 05/17/20 02:50 98.9 F 104 H 18 118/67 100 05/17/20 02:00 99 16 120/78 98 05/16/20 23:47 89 18 111/67 98 05/16/20 22:30 83 20 109/83 98 05/16/20 18:56 98.0 F 52 L 20 94/63 98 Intake and Output 05/16/20 05/17/20 05/17/20 22:59 06:59 14:59 Other: Voiding Method Bedpan Bedpan # Voids 1 0 Weight 73.028 kg 73.1 kg Results 05/17/20 08:22 05/17/20 08:22 Cardiac Enzymes 05/16/20 05/16/20 05/17/20 Range/Units 22:25 22:25 08:22 AST 28 30 (14-36) U/L Troponin I 0.019 (0.000-0.034) ng/mL 05/17/20 05/17/20 Range/Units 08:22 12:22 AST (14-36) U/L Troponin I 0.033 0.031 (0.000-0.034) ng/mL CBC 05/16/20 05/17/20 Range/Units 22:25 08:22 WBC 12.5 H 10.6 (3.8-10.6) k/uL RBC 2.88 L 2.87 L (3.80-5.40) m/uL Hgb 10.4 L 10.6 L (11.4-16.0) gm/dL Hct 33.1 L 33.3 L (34.0-46.0) % Plt Count 191 229 (150-450) k/uL Comprehensive Metabolic Panel 05/16/20 05/17/20 Range/Units 22:25 08:22 Sodium 132 L 134 L (137-145) mmol/L Potassium 3.5 3.9 (3.5-5.1) mmol/L Chloride 92 L 93 L (98-107) mmol/L Carbon Dioxide 26 25 (22-30) mmol/L BUN 25 H 30 H (7-17) mg/dL Creatinine 3.34 H 4.02 H (0.52-1.04) mg/dL Glucose 125 H 156 H (74-99) mg/dL Calcium 9.8 9.6 (8.4-10.2) mg/dL AST 28 30 (14-36) U/L ALT 15 16 (4-34) U/L Alkaline Phosphatase 140 H 133 H (38-126) U/L Total Protein 6.7 6.5 (6.3-8.2) g/dL Albumin 3.8 3.6 (3.5-5.0) g/dL Current Medications Generic Name Dose Route Start Last Admin Trade Name Freq PRN Reason Stop Dose Admin Allopurinol 100 mg 05/18/20 08:00 Allopurinol 100 Mg Tab PO DAILY@0800 [facility] Brimonidine Tartrate 1 drops 05/17/20 09:00 05/17/20 09:12 Brimonidine Tartrate 0.2% Drops 5 Ml Btl BOTH EYES 1 drops BID@0700,1999 [facility] Administration Calcium Acetate 1,334 mg 05/17/20 09:00 05/17/20 13:22 Calcium Acetate 667 Mg Tab PO 1,334 mg TID@0800,1200,1600 [facility] Administration Calcium Polycarbophil 625 mg 05/17/20 09:00 05/17/20 09:12 Calcium Polycarbophil 625 Mg Tab PO 625 mg DAILY@0800 [facility] Administration Cholecalciferol 2,000 unit 05/18/20 08:00 Cholecalciferol 1,000 Unit Tab PO DAILY@0800 [facility] Docusate Sodium 100 mg 05/17/20 09:00 05/17/20 09:11 Docusate 100 Mg Cap PO 100 mg BID@899,1999 [facility] Administration Dorzolamide HCl 1 drops 05/17/20 09:00 05/17/20 09:13 Dorzolamide Hcl 2% Drops 10 Ml Btl BOTH EYES 1 drops BID@699,1999 [facility] Administration Linagliptin 5 mg 05/17/20 15:00 Linagliptin 5 Mg Tablet PO DAILY@1500 [facility] Metoprolol Tartrate 25 mg 05/17/20 15:00 Metoprolol Tartrate 25 Mg Tab PO DAILY@1500 [facility] Metoprolol Tartrate 50 mg 05/17/20 22:00 Metoprolol Tartrate 50 Mg Tab PO BID@0700,2200 [facility] Midodrine 10 mg 05/17/20 15:00 Midodrine 5 Mg Tab PO TID@0700,1500,2200 [facility] Multivitamins/Minerals 1 each 05/17/20 09:00 05/17/20 09:12 Vit A,C & V-Fwcdko-Xyvxxsrz 1 Each Tab PO 1 each BID@899,1999 [facility] Administration Ondansetron HCl 4 mg 05/16/20 23:41 05/17/20 08:19 Ondansetron 4 Mg/2 Ml Vial IVP 4 mg Q8HR PRN Administration Nausea And Vomiting Ondansetron HCl 4 mg 05/17/20 08:19 Ondansetron 4 Mg Tab PO Q12H PRN Nausea Pantoprazole Sodium 40 mg 05/17/20 09:00 05/17/20 09:10 Pantoprazole 40 Mg Tablet PO 40 mg DAILY@0700 [facility] Administration Rivaroxaban 10 mg 05/17/20 08:00 05/17/20 08:18 Rivaroxaban 10 Mg Tab PO 10 mg DAILY@0800 [facility] Administration Torsemide 20 mg 05/17/20 09:00 05/17/20 09:12 Torsemide 20 Mg Tab PO 20 mg DAILY@0800 [facility] Administration Intake and Output 05/16/20 05/17/20 05/17/20 22:59 06:59 14:59 Other: Voiding Method Bedpan Bedpan # Voids 1 0 Weight 73.028 kg 73.1 kg 05/17/20 08:22 05/17/20 08:22
--- NOTE | 2020-05-17 11:26 | P.HPIM ---
History of Present Illness H&P Date: 05/17/20 Trina Carrillo, is an 85-year-old female who presented to [facility] emergency room with a chief complaint of dizziness and lightheadedness and generalized weakness, patient has a known history of end-stage renal disease on hemodialysis Monday and Monday, chronic systolic congestive heart failure, chronic atrial fibrillation, pulmonary hypertension, and valvular heart disease with aortic stenosis and severe tricuspid regurgitation, severe mitral regurgitation. Patient stated that her symptoms started when she returned from hemodialysis on Monday she also started developing some nausea and vomiting. She was also complaining of some episodes of chest pain and she decided to come to emergency room. patient was evaluated in emergency room her vital examination on pres entation reveals a temperature of 98 pulse 52 respiration 20 blood pressure 94/63 pulse ox 98% on room air, laboratory data was significant for slightly elevated white blood count of 12.5 hemoglobin 10.4 and platelet count of 191 sodium was 132 potassium 3.5 chloride 92 BUN 25 creatinine 3.34 glucose 125 normal liver enzymes with slightly elevated alkaline phosphatase and normal lipase, EKG done in the emergency room revealed atrial fibrillation with nonspecific ST and T wave abnormalities, patient was admitted to telemetry floor for further evaluation and treatment echocardiogram and carotid Doppler were ordered, cardiology consultation and nephrology consultation were requested. Patient was seen and examined on the telemetry floor, she is complaining of nausea, and generalized weakness, and dizziness otherwise she denies any complaints at this time there is no fever or chills, no headache no chest pain no shortness of breath no cough no vomiting no diarrhea no blood in the stools no burning with urination no frequency or urgency and no hematuria. Past Medical History Past Medical History: Atrial Fibrillation, Coronary Artery Disease (CAD), Cancer, Heart Failure, Diabetes Mellitus, Deep Vein Thrombosis (DVT), Eye Disorder, GERD/Reflux, Hypertension, Renal Disease Additional Past Medical History / Comment(s): Macular Degeneration and glaucoma, gallstones, stage 4 kidney failure, hx Uterine & groin CA; WEARS BILAT THIGH HIGH HOSE, uses cane or walker, patient states she has "2 blood clots in right groin since 2003" family states now clot is "through the whole leg", CHF, rt hip bone and bone, dialysis since october 2019 M,W,F History of Any Multi-Drug Resistant Organisms: ESBL, VRE Date of last positivie culture/infection: 02/11/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 left hip replacement, LEFT breast biopsy, darcy filter rt leg, biopsy of right nostril, biopsy rt breast, right chest dialysis cath Past Anesthesia/Blood Transfusion Reactions: No Reported Reaction Past Psychological History: No Psychological Hx Reported Smoking Status: Former smoker Past Alcohol Use History: None Reported Additional Past Alcohol Use History / Comment(s): smoked 1 pkg from 1961 to 1971 Past Drug Use History: None Reported - Past Family History Mother Family Medical History: No Reported History Additional Family Medical History / Comment(s): Family states pt's mother " of pneumonia". Father Family Medical History: Diabetes Mellitus Medications and Allergies Home Medications Medication Instructions Recorded Confirmed Type Linagliptin [Tradjenta] 5 mg PO DAILY@1500 01/22/14 05/17/20 History Omeprazole [PriLOSEC] 20 mg PO DAILY@0700 01/22/14 05/17/20 History allopurinoL [Zyloprim] 200 mg PO DAILY@00 01/22/14 05/17/20 History Docusate Sodium [Stool Softener] 100 mg PO BID@09,199902/22/14 05/17/20 History Garlic 1 tab PO BID@09,199902/22/14 05/17/20 History Brinzolamide/Brimonidine Tart 1 drop BOTH EYES BID@699,199905/11/17 05/17/20 History [Simbrinza 1%-0.2% Eye Drops] Vit C/E/Zn/Coppr/Lutein/Zeaxan 1 cap PO BID@0900,199912/03/17 05/17/20 History [Preservision Areds 2 Softgel] Cholecalciferol (Vitamin D3) 2,000 unit PO DAILY@0800 02/10/18 05/17/20 History [Vitamin D3] Wheat Dextrin [Benefiber] 1 packet PO DAILY@0800 02/10/18 05/17/20 History Midodrine [ProAmatine] 10 mg PO TID@0700,1500,2200 04/10/18 05/17/20 History Rivaroxaban [Xarelto] 10 mg PO DAILY@0800 04/10/18 05/17/20 History Metoprolol Tartrate [Lopressor] 25 mg PO DAILY@1500 06/15/18 05/17/20 History Metoprolol Tartrate [Lopressor] 50 mg PO BID@0700,2200 09/18/18 05/17/20 History Ondansetron [Zofran] 4 mg PO Q12H PRN 09/18/18 05/17/20 History Calcium Acetate [PhosLo] 1,334 mg PO TID@0800,1200,1600 05/17/20 05/17/20 History Torsemide [Demadex] 20 mg PO DAILY@0800 05/17/20 05/17/20 History traMADol HCL 50 mg PO Q6H PRN 05/17/20 05/17/20 History Allergies Allergy/AdvReac Type Severity Reaction Status Date / Time atorvastatin calcium Allergy Unknown Verified 05/17/20 10:14 [From Lipitor] codeine Allergy Unknown Verified 05/17/20 10:14 [From Tylenol-Codeine #3] adhesive tape AdvReac Intermediate Unknown Verified 05/17/20 10:14 hydrocodone AdvReac Vomiting Verified 05/17/20 10:14 Physical Exam Vitals: Vital Signs Temp Pulse Pulse Resp BP BP Pulse Ox 05/17/20 08:14 97.6 F 73 18 139/69 99 05/17/20 02:50 98.9 F 104 H 18 118/67 100 05/17/20 02:00 99 16 120/78 98 05/16/20 23:47 89 18 111/67 98 05/16/20 22:30 83 20 109/83 98 05/16/20 18:56 98.0 F 52 L 20 94/63 98 Intake and Output 05/16/20 05/17/20 05/17/20 22:59 06:59 14:59 Other: Voiding Method Bedpan # Voids 1 Weight 73.028 kg 73.1 kg in general patient is alert and oriented 3 in no apparent distress HEENT head normocephalic and atraumatic Neck is supple no JVD no goiter no lymphadenopathy Chest exam reveals a few scattered crackles bilaterally no wheezing Cardiac exam reveals regular heart sounds S1 and S2 no gallops no murmurs Abdomen is soft with tenderness in the epigastric area no organomegaly no palpable masses was normal bowel sounds Extremity exam reveals 1+ edema bilaterally no cyanosis or clubbing Neurological examination reveals no gross focal deficit Results CBC & Chem 7: 05/17/20 08:22 05/17/20 08:22 Labs: Abnormal Lab Results - Last 24 Hours (Table) 05/16/20 05/16/20 05/17/20 Range/Units 22:25 22:25 06:20 WBC 12.5 H (3.8-10.6) k/uL RBC 2.88 L (3.80-5.40) m/uL Hgb 10.4 L (11.4-16.0) gm/dL Hct 33.1 L (34.0-46.0) % MCV 114.9 H (80.0-100.0) fL MCH 36.1 H (25.0-35.0) pg Neutrophils # (Manual) 10.88 H (1.3-7.7) k/uL Macrocytosis Marked A Sodium 132 L (137-145) mmol/L Chloride 92 L (98-107) mmol/L BUN 25 H (7-17) mg/dL Creatinine 3.34 H (0.52-1.04) mg/dL Glucose 125 H (74-99) mg/dL POC Glucose (mg/dL) 115 H (75-99) mg/dL Alkaline Phosphatase 140 H (38-126) U/L Thrombosis Risk Factor Assmnt - Choose All That Apply Any of the Below Risk Factors Present?: Yes Each Factor Represents 1 point: Obesity (BMI >25) Other Risk Factors: Yes Each Risk Factor Represents 3 Points: Age 75 years or older Other congenital or acquired thrombophilia - If yes, enter type in comment: No Thrombosis Risk Factor Assessment Total Risk Factor Score: 4 Thrombosis Risk Factor Assessment Level: Moderate Risk Assessment and Plan Plan: 1. symptoms of nausea vomiting and generalized weakness and dizziness, cause is unclear, will check abdomen ultrasound 2. Underlying history of end-stage renal disease on hemodialysis, nephrology consultation requested 3. Underlying history of chronic systolic congestive heart failure without evidence of exacerbation at this time 4. Underlying history of chronic persistent atrial fibrillation 5. Underlying history of pulmonary hypertension 6. Underlying history of valvular heart disease 7. underlying history of diabetes mellitus At this time will check echocardiogram and carotid Doppler Check chest x-ray, check abdomen ultrasound Consultation for cardiology and nephrology were initiated Will follow closely Prognosis is guarded due to age and multiple underlying morbidities.
--- NOTE | 2020-05-17 13:04 | US ---
EXAMINATION TYPE: US abdomen complete DATE OF EXAM: 05/17/2020 COMPARISON: US's CLINICAL HISTORY: nausea/vomiting. Gallbladder removed in October 2019. EXAM MEASUREMENTS: Liver Length: 13.5 cm Gallbladder Wall: Surgically absent cm CBD: 0.6 cm Spleen: 9.2 cm Right Kidney: 8.2 x 2.8 x 3.8 cm Left Kidney: not measures, dedicated renal exam same day. Extensive midline bowel gas limits exam. Pancreas: not well visualized due to extensive midline bowel gas. Liver: heterogeneous echotexture throughout. Possible hypoechoic lesion noted anterior left lobe. Gallbladder: Surgically absent CBD: wnl Spleen: wnl Right Kidney: Kidneys are difficult to visualize bilaterally as they are echogenic and atrophied, co nsistent with medical renal disease. Left Kidney: not well seen due to bowel gas Upper IVC: wnl Abd Aorta: not seen due to extensive bowel gas. IMPRESSION: Questionable left hepatic lobe lesion. If there is continued clinical concern, contrast enhanced CT o r MRI may be obtained for confirmation. Otherwise 6 month follow-up. Otherwise no acute abnormality.
--- NOTE | 2020-05-17 13:07 | US ---
EXAMINATION TYPE: US kidneys/renal and bladder DATE OF EXAM: 05/17/2020 COMPARISON: US's CLINICAL HISTORY: CKD, increased Cr. EXAM MEASUREMENTS: Right Kidney: 8.5 x 3.3 x 4.1 cm Left Kidney: 8.8 x 4.3 x 4.3 cm Technically difficult study. Kidneys are atrophied and hard to differentiate from surrounding tissue. Right Kidney: Echogenic, hard to see. Left Kidney: echogenic, hard to see, partially obscured by bowel gas. Bladder: not seen There is no evidence for hydronephrosis at this point in time. No nephrolithiasis is seen. No tri s are identified. IMPRESSION: Medical renal disease. No evidence of bilateral hydronephrosis.
--- NOTE | 2020-05-17 14:26 | XR ---
EXAMINATION TYPE: XR abdomen 1V DATE OF EXAM: 05/17/2020 COMPARISON: 10/21/2019 HISTORY: Constipation TECHNIQUE: 2 views supine FINDINGS: There are multiple gas filled loops of dilated small bowel in the mid abdomen. Fecal patter n in the large bowel is fairly normal. There is no evidence of a mass. There is left hip prosthesis. 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 There is no evidence for free air. Lung bases appear clear. IMPRESSION: Dilated small bowel suggestive of a partial mechanical small bowel obstruction small machelle l increased compared to old exam.
[2020-05-17] MEDS: LINAGLIPTIN 5 MG TABLET PO SCH (14:42)
[2020-05-17] MEDS: METOPROLOL TARTRATE 25 MG TAB PO SCH (14:42)
[2020-05-17] MEDS: MIDODRINE 5 MG TAB PO SCH ×2 (14:42→20:52)
--- NOTE | 2020-05-17 15:33 | CONS ---
CONSULTATION REASON FOR CONSULT: End-stage renal disease. HISTORY OF PRESENT ILLNESS: Patient is an 85-year-old female who was admitted to the hospital with complaints of increased weakness and dizziness that happened after dialysis. The patient is not sure how much fluid was taken off. She did not have any fever or chills. No significant abdominal pain, diarrhea or vomiting, however, she has episodes of nausea and has not been able to eat much. The patient did state that her nausea and dizziness did get worse with movement. Her blood pressure was low initially when she came in with systolic in the 90s. Currently it is not significantly low with systolic noted at 139 am, but another reading of 104 mmHg noted. No complaints of cough or chest pains. PAST MEDICAL HISTORY: End-stage renal disease, coronary artery disease, chronic atrial fibrillation, pulmonary hypertension, valvular heart disease, aortic stenosis, severe mitral regurgitation, tricuspid regurg, macular degeneration, glaucoma, history of gallstones, history of DVT, gastroesophageal reflux disease, CHF, type 2 diabetes. PAST SURGICAL HISTORY: Appendectomy, bowel resection, hysterectomy, left hip arthroplasty, left breast biopsy, Toyin filter placement, biopsy of right breast, right chest PermCath placement. SOCIAL HISTORY: Patient is a former smoker. No history of drug abuse or alcohol abuse. MEDICATIONS: Medications prior to admission included Tradjenta, Prilosec Zyloprim, garlic, vitamin D3, Benefiber, midodrine, Xarelto, Lopressor, Zofran, PhosLo, Demadex, tramadol. ALLERGIES: Include LIPITOR, TAPE, HYDROCODONE. REVIEW OF SYSTEMS: As per HPI. Other systems negative. EXAMINATION: Patient is comfortable, awake. She is mildly nauseated, not in acute distress. Blood pressure 104/71, heart rate 101 per minute, she is afebrile. Examination of the heart S1, S2. Examination of lungs, decreased breath sounds at bases. No crackles or wheezing is heard. Abdomen is soft, nontender. There is some tenderness and discomfort noted in the left lower quadrant. Examination of lower extremities shows no evidence of edema. Chronic skin changes noted. [employer] exam grossly intact. LAB: Show hemoglobin 10.6, white cell count is 10.6 also. Sodium 134, potassium 3.9, CO2 25, BUN 30, creatinine 4.02. Lipase is not elevated. Chest x-ray not done on admission. ASSESSMENT: 1. End-stage renal disease, on hemodialysis on a Monday, Monday, Monday schedule. We will arrange for hemodialysis in a.m. Do not plan to remove much fluid, as blood pressure has been low. 2. Dizziness associated with nausea, possibly related to some degree of hypovolemia as blood pressure was low when patient first came in. She has history of gastroesophageal reflux disease and is currently maintained on Protonix. 3. History of congestive heart failure, currently not significantly volume overloaded. 4. Chronic kidney disease mineral bone disorder maintained on PhosLo. 5. History of gout, currently on Zyloprim. 6. Abdominal discomfort, most likely related to constipation. PLAN: Check abdominal x-ray and treat constipation. Arrange for hemodialysis in a.m. with no significant ultrafiltration. Maintain proton pump inhibitors. Thank you for this consultation. Will continue to follow the patient with you during her hospitalization. MMODL / IJN: [id number] /
[2020-05-17] MEDS: traMADol 50 MG TAB PO PRN ×2 (15:49→22:59)
[2020-05-17 20:18] LABS: Glucose,Whole Blood 132 mg/dL (75-99)
[2020-05-17] MEDS: METOPROLOL TARTRATE 50 MG TAB PO SCH (20:52)
[2020-05-18 06:08] LABS: Glucose,Whole Blood 118 mg/dL (75-99)
[2020-05-18] MEDS: METOPROLOL TARTRATE 50 MG TAB PO SCH ×2 (06:52→21:29)
[2020-05-18] MEDS: MIDODRINE 5 MG TAB PO SCH ×3 (06:52→21:29)
[2020-05-18] MEDS: BRIMONIDINE TARTRATE 0.2% DROPS 5 ML BTL BOTH EYES SCH ×2 (06:53→21:26)
[2020-05-18] MEDS: DORZOLAMIDE HCL 2% DROPS 10 ML BTL BOTH EYES SCH ×2 (06:53→21:26)
[2020-05-18] MEDS: PANTOPRAZOLE 40 MG TABLET PO SCH (06:58)
[2020-05-18] MEDS ORDERED: PANTOPRAZOLE 40 MG TABLET PO SCH (07:00)
[2020-05-18 07:30] LABS: Albumin 3.4 g/dL (3.5-5.0); Calcium 9.3 mg/dL (8.4-10.2); Potassium 4.2 mmol/L (3.5-5.1); Total Bilirubin 1.7 mg/dL (0.2-1.3); Total Protein 6.3 g/dL (6.3-8.2)
[2020-05-18 08:00] LABS: HCT 32.6 % (34.0-46.0); HGB 10.3 gm/dL (11.4-16.0); MCH 36.1 pg (25.0-35.0); MCHC 31.5 g/dL (31.0-37.0); MCV 114.5 fL (80.0-100.0); Macrocytosis Marked; Platelet Count 196 k/uL (150-450); RBC 2.84 m/uL (3.80-5.40); RDW 15.7 % (11.5-15.5); WBC 3.6 k/uL (3.8-10.6)
[2020-05-18 08:55] LABS: Monocytes # (M) 0.54 k/uL (0-1.0); Nucleated Red Blood Cells 0 /100 WBC (0-0)
[2020-05-18 08:57] LABS: Band Neutrophils % 23 %; Lymphocytes # (M) 0.97 k/uL (1.0-4.8); Neutrophils % (M) 36 %; Total Cells Counted 200
[2020-05-18 08:58] LABS: Polychromasia Present
[2020-05-18] MEDS: CALCIUM ACETATE 667 MG TAB PO SCH ×3 (09:15→16:48)
[2020-05-18] MEDS: TORSEMIDE 20 MG TAB PO SCH (09:15)
[2020-05-18] MEDS: RIVAROXABAN 10 MG TAB PO SCH (09:21)
[2020-05-18] MEDS: DOCUSATE 100 MG CAP PO SCH ×2 (09:21→21:29)
[2020-05-18] MEDS: allopurinoL 100 MG TAB PO SCH (09:21)
[2020-05-18] MEDS: traMADol 50 MG TAB PO PRN ×2 (09:21→16:57)
[2020-05-18] MEDS: VIT A,C & E-LUTEIN-MINERALS 1 EACH TAB PO SCH ×2 (09:21→21:29)
[2020-05-18] MEDS: CHOLECALCIFEROL 1,000 UNIT TAB PO SCH (09:22)
[2020-05-18] MEDS: ONDANSETRON 4 MG/2 ML VIAL IVP PRN ×2 (11:15→18:52)
--- NOTE | 2020-05-18 11:19 | ECHOF ---
Referral Reason:dizziness MEASUREMENTS -------- HEIGHT: 157.5 cm WEIGHT: 73.5 kg BP: RVIDd: 2.9 cm (< 3.3) IVSd: 1.2 cm (0.6 - 1.1) LVIDd: 4.6 cm (3.9 - 5.3) LVPWd: 1.6 cm (0.6 - 1.1) IVSs: 1.5 cm LVIDs: 3.6 cm LVPWs: 1.6 cm LA Diam: 5.1 cm (2.7 - 3.8) LAESV Index (A-L): 73.25 ml/m Ao Diam: 3.2 cm (2.0 - 3.7) AV Cusp: 1.0 cm (1.5 - 2.6) LA Diam: 4.9 cm (2.7 - 3.8) MV EXCURSION: 16.312 mm (> 18.000) MV EF SLOPE: 44 mm/s (70 - 150) EPSS: 0.7 cm AV maxP.71 mmHg AV meanP.53 mmHg RAP: 10.00 mmHg RVSP: 51.12 mmHg FINDINGS -------- Atrial fibrillation. This was a technically adequate study. The left ventricular size is normal. There is mild concentric left ventricular hypertrophy. Overa ll left ventricular systolic function is low-normal with, an EF between 50 - 55 %. Left ventricular fillimg pressure cannot be estimated due to Atrial fibrillation. The right ventricle is normal in size. LA is severely dilated >40 ml/m2 The right atrial size is normal. There is mild aortic stenosis present. Peak/mean gradient across the Aortic Valve is 30.71mmHg / 14 .53mmHg. Mild mitral annular calcification present. [id number] mitral regurgitation is present. Moderate tricuspid regurgitation present. There is moderate pulmonary hypertension. There is no pulmonic regurgitation present. The aortic root size is normal. There is no pericardial effusion. CONCLUSIONS -------- 1. There is mild concentric left ventricular hypertrophy. 2. Overall left ventricular systolic function is low-normal with, an EF between 50 - 55 %. 3. Left ventricular fillimg pressure cannot be estimated due to Atrial fibrillation. 4. LA is severely dilated >40 ml/m2 5. There is mild aortic stenosis present. 6. Peak/mean gradient across the Aortic Valve is 30.71mmHg / 14.53mmHg. 7. Mild mitral annular calcification present. 8. Slfk-aw-[id number] mitral regurgitation is present. 9. Moderate tricuspid regurgitation present. 10. There is moderate pulmonary hypertension. 11. There is no pericardial effusion. COMPUTER OPERATIONS SPECIALIST: Tasha Harley RDCS
--- NOTE | 2020-05-18 11:34 | PN ---
PROGRESS NOTE Patient is seen for followup for end-stage renal disease. She was admitted to the hospital with dizziness. Blood pressure had been on the lower side. Patient also had complaints of abdominal pain and constipation. Abdominal x-ray done yesterday shows partial mechanical small-bowel obstruction. Patient is able to eat a little bit better today. PHYSICAL EXAMINATION: On examination, blood pressure was 107/73, heart rate 95 per minute, she is afebrile. Examination of the heart S1, S2. Examination of the lungs, bilateral breath sounds are heard. Abdomen is soft, nontender. Examination of the lower extremities shows no evidence of edema. [employer] exam grossly intact. LABS: Show sodium 133, potassium 4.2, BUN 48, creatinine 5.05, hemoglobin 10.3 g/dL. ASSESSMENT: 1. End-stage renal disease, on hemodialysis on a Monday, Monday, Monday schedule. 2. Lightheadedness, dizziness, most likely associated with hypovolemia. 3. Abdominal pain, constipation. Will add lactulose. 4. Generalized debility. 5. CKD mineral bone disorder. PLAN: Hemodialysis today, no significant ultrafiltration and add lactulose for constipation. MMODL / IJN: [id number] /
[2020-05-18 11:48] LABS: Glucose,Whole Blood 126 mg/dL (75-99)
--- NOTE | 2020-05-18 11:51 | P.PN ---
Subjective Progress Note Date: 05/18/20 CHIEF COMPLAINT: dizziness HISTORY OF PRESENT ILLNESS: Patient examined this morning at the bedside. Patient denies dizziness this morning. Her daughter is at the bedside and reports her dizziness has been ongoing for a long time and is usually when the patient is in the bathroom trying to have a bowel movement. Patient denies vomiting this morning. She reports decreased appetite. She is scheduled for hemodialysis today. Echocardiogram reveals ejection fraction between 50 and 55%, [id number] mitral regurgitation, moderate tricuspid regurgitation, an d moderate pulmonary hypertension PHYSICAL EXAM: VITAL SIGNS: Reviewed. GENERAL: Well-developed in no acute distress. NECK: Supple. No JVD or thyromegaly LUNGS: Respirations even and unlabored. Lungs essentially clear to auscultation bilaterally. HEART: Irregular rate and rhythm. S1 and S2 heard. EXTREMITIES: Normal range of motion. No clubbing or cyanosis. Peripheral pu lses intact. No lower extremity edema ASSESSMENT: Nausea and vomiting Chronic dizziness, suspect vasovagal in etiology Chronic systolic heart failure Persistent atrial fibrillation Moderate pulmonary hypertension Valvular heart disease with [id number]-xosffayu mitral regurgitation, mild aortic stenosis, moderate tricuspid regurgitation End-stage renal disease on hemodialysis History of DVT with prior Toyin filter Diabetes mellitus type 2 Hypertension Hyperlipidemia PLAN: Continue current cardiac medications No further intervention recommended from a cardiac perspective. We will sign off. Please re-consult if needed. Nurse practitioner note has been reviewed by physician. Signing provider agrees with the documented findings, assessment, and plan of care. Objective - Vital Signs Vital signs: Vital Signs Temp 97.5 F L 05/18/20 08:00 Pulse 100 05/18/20 08:00 Resp 16 05/18/20 08:00 BP 94/66 05/18/20 08:00 Pulse Ox 95 05/18/20 08:00 Intake & Output 05/17/20 05/18/20 05/18/20 18:59 06:59 18:59 Intake Total 200 100 Output Total 0 Balance 200 100 Weight 73.8 kg Intake: Oral 200 100 Output: Urine 0 Other: Voiding Method Bedpan Bedside Commode Bedside Commode # Voids 1 - Labs CBC & Chem 7: 05/18/20 06:41 05/18/20 06:41 Labs: Abnormal Lab Results - Last 24 Hours (Table) 05/17/20 05/18/20 05/18/20 Range/Units 20:17 06:06 06:41 WBC 3.6 L (3.8-10.6) k/uL RBC 2.84 L (3.80-5.40) m/uL Hgb 10.3 L (11.4-16.0) gm/dL Hct 32.6 L (34.0-46.0) % MCV 114.5 H (80.0-100.0) fL MCH 36.1 H (25.0-35.0) pg RDW 15.7 H (11.5-15.5) % Lymphocytes # (Manual) 0.97 L (1.0-4.8) k/uL Macrocytosis Marked A Sodium (137-145) mmol/L Chloride (98-107) mmol/L BUN (7-17) mg/dL Creatinine (0.52-1.04) mg/dL Glucose (74-99) mg/dL POC Glucose (mg/dL) 132 H 118 H (75-99) mg/dL Total Bilirubin (0.2-1.3) mg/dL Alkaline Phosphatase (38-126) U/L Albumin (3.5-5.0) g/dL 05/18/20 Range/Units 06:41 WBC (3.8-10.6) k/uL RBC (3.80-5.40) m/uL Hgb (11.4-16.0) gm/dL Hct (34.0-46.0) % MCV (80.0-100.0) fL MCH (25.0-35.0) pg RDW (11.5-15.5) % Lymphocytes # (Manual) (1.0-4.8) k/uL Macrocytosis Sodium 133 L (137-145) mmol/L Chloride 94 L (98-107) mmol/L BUN 48 H (7-17) mg/dL Creatinine 5.05 H (0.52-1.04) mg/dL Glucose 127 H (74-99) mg/dL POC Glucose (mg/dL) (75-99) mg/dL Total Bilirubin 1.7 H (0.2-1.3) mg/dL Alkaline Phosphatase 138 H (38-126) U/L Albumin 3.4 L (3.5-5.0) g/dL
[2020-05-18] MEDS ORDERED: HEPARIN SODIUM,PORCINE 5,000 UNIT/ML 1 ML VIAL ONE (12:00)
[2020-05-18 14:03] LABS: Hemoglobin A1C 5.3 % (4.0-6.0)
[2020-05-18] MEDS: METOPROLOL TARTRATE 25 MG TAB PO SCH (16:47)
[2020-05-18] MEDS: LINAGLIPTIN 5 MG TABLET PO SCH (16:55)
[2020-05-18 17:05] LABS: Glucose,Whole Blood 116 mg/dL (75-99)
[2020-05-18] MEDS: LACTULOSE 20 GM/30 ML CUP PO SCH ×2 (18:30→21:29)
--- NOTE | 2020-05-18 18:47 | P.PN ---
Subjective Progress Note Date: 05/18/20 Trina Carrillo, is an 85-year-old female who presented to [facility] emergency room with a chief complaint of dizziness and lightheadedness and generalized weakness, patient has a known history of end-stage renal disease on hemodialysis Monday and Monday, chronic systolic congestive heart failure, chronic atrial fibrillation, pulmonary hypertension, and valvular heart disease with aortic stenosis and severe tricuspid regurgitation, severe mitral regurgitation. Patient stated that her symptoms started when she returned from hemodialysis on Monday she also started developing some nausea and vomiting. She was also complaining of some episodes of chest pain and she decided to come to emergency room. patient was evaluated in emergency room her vital examination on presentat ion reveals a temperature of 98 pulse 52 respiration 20 blood pressure 94/63 pulse ox 98% on room air, laboratory data was significant for slightly elevated white blood count of 12.5 hemoglobin 10.4 and platelet count of 191 sodium was 132 potassium 3.5 chloride 92 BUN 25 creatinine 3.34 glucose 125 normal liver enzymes with slightly elevated alkaline phosphatase and normal lipase, EKG done in the emergency room revealed atrial fibrillation with nonspecific ST and T wave abnormalities, patient was admitted to telemetry floor for further evaluation and treatment echocardiogram and carotid Doppler were ordered, cardiology consultation and nephrology consultation were requested. Patient was seen and examined on the telemetry floor, she is complaining of nausea, and generalized weakness, and dizziness otherwise she denies any complaints at this time there is no fever or chills, no headache no chest pain no shortness of breath no cough no vomiting no diarrhea no blood in the stools no burning with urination no frequency or urgency and no hematuria. On 05/18/2020 patient was seen and examined on the medical floor she is alert and oriented 3 in no apparent distress, she is complaining of nausea and occasional vomiting there is no fever or chills no headache or dizziness, no chest pain no shortness of breath no cough there is mild discomfort in the abdomen no diarrhea no blood in the stools no burning with urination no frequency or urgency and no hematuria. Abdomen x-ray is showing evidence of partial small bowel obstruction at this time patient will be kept nothing by mouth consultation for Dr. Vuong was initiated patient is well known to him he operated on her abdomen in the past Objective - Vital Signs Vital signs: Vital Signs Temp 97.6 F 05/18/20 16:00 Pulse 72 10/12/20 16:00 Resp 14 05/18/20 16:00 BP 105/58 05/18/20 16:00 Pulse Ox 95 05/18/20 16:00 Intake & Output 05/17/20 05/18/20 05/18/20 18:59 06:59 18:59 Intake Total 200 100 Output Total 0 0 Balance 200 100 Weight 73.8 kg Intake: Oral 200 100 Output: Urine 0 Hemodialysis 0 Other: Voiding Method Bedpan Bedside Commode Bedside Commode # Voids 1 2 # Bowel Movements 1 - Exam in general patient is alert and oriented 3 in no apparent distress HEENT head normocephalic and atraumatic Neck is supple no JVD no goiter no lymphadenopathy Chest exam reveals a few scattered crackles bilaterally no wheezing Cardiac exam reveals regular heart sounds S1 and S2 no gallops no murmurs Abdomen is soft with tenderness in the epigastric area no organomegaly no palpable masses was normal bowel sounds Extremity exam reveals 1+ edema bilaterally no cyanosis or clubbing Neurological examination reveals no gross focal deficit - Labs CBC & Chem 7: 05/18/20 06:41 05/18/20 06:41 Labs: Abnormal Lab Results - Last 24 Hours (Table) 05/17/20 05/18/20 05/18/20 Range/Units 20:17 06:06 06:41 WBC 3.6 L (3.8-10.6) k/uL RBC 2.84 L (3.80-5.40) m/uL Hgb 10.3 L (11.4-16.0) gm/dL Hct 32.6 L (34.0-46.0) % MCV 114.5 H (80.0-100.0) fL MCH 36.1 H (25.0-35.0) pg RDW 15.7 H (11.5-15.5) % Lymphocytes # (Manual) 0.97 L (1.0-4.8) k/uL Macrocytosis Marked A Sodium (137-145) mmol/L Chloride (98-107) mmol/L BUN (7-17) mg/dL Creatinine (0.52-1.04) mg/dL Glucose (74-99) mg/dL POC Glucose (mg/dL) 132 H 118 H (75-99) mg/dL Total Bilirubin (0.2-1.3) mg/dL Alkaline Phosphatase (38-126) U/L Albumin (3.5-5.0) g/dL 05/18/20 05/18/20 05/18/20 Range/Units 06:41 11:34 16:46 WBC (3.8-10.6) k/uL RBC (3.80-5.40) m/uL Hgb (11.4-16.0) gm/dL Hct (34.0-46.0) % MCV (80.0-100.0) fL MCH (25.0-35.0) pg RDW (11.5-15.5) % Lymphocytes # (Manual) (1.0-4.8) k/uL Macrocytosis Sodium 133 L (137-145) mmol/L Chloride 94 L (98-107) mmol/L BUN 48 H (7-17) mg/dL Creatinine 5.05 H (0.52-1.04) mg/dL Glucose 127 H (74-99) mg/dL POC Glucose (mg/dL) 126 H 116 H (75-99) mg/dL Total Bilirubin 1.7 H (0.2-1.3) mg/dL Alkaline Phosphatase 138 H (38-126) U/L Albumin 3.4 L (3.5-5.0) g/dL Assessment and Plan Plan: 1. symptoms of nausea vomiting and generalized weakness and dizziness, cause is unclear, will check abdomen ultrasound 2. Underlying history of end-stage renal disease on hemodialysis, nephrology consultation requested 3. Underlying history of chronic systolic congestive heart failure without evidence of exacerbation at this time 4. Underlying history of chronic persistent atrial fibrillation 5. Underlying history of pulmonary hypertension 6. Underlying history of valvular heart disease 7. underlying history of diabetes mellitus 8. Evidence of small bowel obstruction on abdomen x-ray patient will be kept nothing by mouth Will consult Dr. Vuong At this time will check echocardiogram and carotid Doppler Check chest x-ray, check abdomen ultrasound Consultation for cardiology and nephrology were initiated Will follow closely Prognosis is guarded due to age and multiple underlying morbidities.
[2020-05-18 20:43] LABS: Glucose,Whole Blood 130 mg/dL (75-99)
--- NOTE | 2020-05-18 23:37 | XR ---
EXAMINATION TYPE: XR chest 1V portable DATE OF EXAM: 05/18/2020 COMPARISON: 10/09/2019 HISTORY: Check tube placement TECHNIQUE: Nikolay view. There is nasogastric tube looped in the stomach. There is right central venous catheter with tip in t he superior vena cava. There is mild subsegmental atelectasis in the mid lung devlin. There is no hea rt failure. Heart size is normal. IMPRESSION: NG tube in good position in the stomach.
[2020-05-19] MEDS: ONDANSETRON 4 MG/2 ML VIAL IVP PRN (03:43)
[2020-05-19 06:06] LABS: Glucose,Whole Blood 114 mg/dL (75-99)
[2020-05-19] MEDS: MIDODRINE 5 MG TAB PO SCH (06:07)
[2020-05-19] MEDS: PANTOPRAZOLE 40 MG TABLET PO SCH (06:07)
[2020-05-19] MEDS: DORZOLAMIDE HCL 2% DROPS 10 ML BTL BOTH EYES SCH ×2 (06:07→19:59)
[2020-05-19] MEDS: METOPROLOL TARTRATE 50 MG TAB PO SCH (06:07)
[2020-05-19] MEDS: BRIMONIDINE TARTRATE 0.2% DROPS 5 ML BTL BOTH EYES SCH ×2 (06:07→19:59)
[2020-05-19 08:02] LABS: Albumin 3.4 g/dL (3.5-5.0); Calcium 9.1 mg/dL (8.4-10.2); Potassium 4.6 mmol/L (3.5-5.1); Total Bilirubin 1.2 mg/dL (0.2-1.3); Total Protein 6.2 g/dL (6.3-8.2)
[2020-05-19] MEDS: RIVAROXABAN 10 MG TAB PO SCH (08:17)
[2020-05-19] MEDS: VIT A,C & E-LUTEIN-MINERALS 1 EACH TAB PO SCH (08:17)
[2020-05-19] MEDS: allopurinoL 100 MG TAB PO SCH (08:17)
[2020-05-19] MEDS: CALCIUM ACETATE 667 MG TAB PO SCH ×3 (08:17→16:09)
[2020-05-19] MEDS: TORSEMIDE 20 MG TAB PO SCH (08:17)
[2020-05-19] MEDS: CHOLECALCIFEROL 1,000 UNIT TAB PO SCH (08:17)
[2020-05-19] MEDS: LACTULOSE 20 GM/30 ML CUP PO SCH (08:17)
[2020-05-19] MEDS: DOCUSATE 100 MG CAP PO SCH (08:17)
[2020-05-19 08:21] LABS: HCT 35.4 % (34.0-46.0); HGB 10.6 gm/dL (11.4-16.0); Hypochromasia Moderate; MCH 36.9 pg (25.0-35.0); Macrocytosis Marked; Mean Platelet Volume 8.5; Platelet Count 224 k/uL (150-450); RBC 2.88 m/uL (3.80-5.40); WBC 4.1 k/uL (3.8-10.6)
[2020-05-19 08:27] LABS: MCV 123.1 fL (80.0-100.0)
[2020-05-19 10:35] LABS: Band Neutrophils % 7 %; Eosinophils # (M) 0.04 k/uL (0-0.7); Metamyelocytes # (M) 0.04 k/uL (0); Metamyelocytes % 1 %; Myelocytes # (M) 0.04 k/uL (0); Myelocytes % 1 %; Neutrophils % (M) 53 %; Nucleated Red Blood Cells 0 /100 WBC (0-0); Total Cells Counted 200
[2020-05-19 12:04] LABS: Glucose,Whole Blood 135 mg/dL (75-99)
[2020-05-19] MEDS ORDERED: METOPROLOL TARTRATE 5 MG/5 ML VIAL IVP PRN (12:34)
[2020-05-19] MEDS: MORPHINE SULFATE 2 MG/ML SYRINGE IVP PRN ×2 (13:26→19:58)
--- NOTE | 2020-05-19 14:40 | P.GSCN ---
<Hina Craig - Last Filed: 05/19/20 14:26> History of Present Illness Consult date: 05/19/20 History of present illness: CHIEF COMPLAINT: Abdominal pain with nausea and vomiting HISTORY OF PRESENT ILLNESS: This is a 85-year-old female with a known history of persistent atrial fibrillation, end-stage renal disease on hemodialysis Monday and Monday, chronic systolic heart failure, History of valvular heart disease with aortic stenosis, severe tricuspid regurgitation and severe mitral regurgitation, Coronary Artery disease, diabetes mellitus, right lower extremity DVT with Darcy filter. She also has a surgical history of bowel resection secondary to bowel obstruction, appendectomy, cholecystectomy and hysterectomy. Patient initially presented to the emergency room with complaints of chest pain. She was evaluated by cardiology. Patient also has been very dizzy and weak. She has been complaining of diffuse abdominal pain with nausea and vomiting. Patient does report having bowel movements. Her last bowel movement was yesterday. She had NG tube placed yesterday. Abdominal x-ray Showing dilated small bowel suggestive of partial mechanical small bowel obstruction. Patient denies any fever, chills or sweats. PAST MEDICAL HISTORY: See list. PAST SURGICAL HISTORY: See list. MEDICATIONS: See list. ALLERGIES: See list. SOCIAL HISTORY: No illicit drug use. REVIEW OF SYSTEMS: CONSTITUTIONAL: Denies fever or chills. HEENT: Denies blurred vision, vision changes, or eye pain. Denies hemoptysis CARDIOVASCULAR: Denies chest pain or pressure. RESPIRATORY: No shortness of breath. GASTROINTESTINAL: See HPI for pertinent findings HEMATOLOGIC: Denies bleeding disorders. GENITOURINARY: Denies any blood in urine or increased urinary frequency. SKIN: Denies pruitis. Denies rash. PHYSICAL EXAM: VITAL SIGNS: Reviewed GENERAL: Well-developed in no acute distress. HEENT: No sclera icterus. Extraocular movements grossly intact. Moist buccal mucosa. Head is atraumatic, normocephalic. No nasal drainage. ABDOMEN: Mildly distended. Diffuse tenderness With palpation. NG tube in place NEUROLOGIC: Alert and oriented. Cranial nerves II through XII grossly intact. LABORATORY DATA: WBC 4.1 hemoglobin 10.6 LFTs normal, Creatinine 3.63 IMAGING: Abdominal x-ray Showing dilated small bowel suggestive of partial mechanical small bowel obstruction. ASSESSMENT: 1. Partial mechanical small bowel obstruction 2. Prior history of bowel obstruction with bowel resection 3. History of end-stage renal disease on hemodialysis Monday 4. Chronic persistent atrial fibrillation 5. History of valvular heart disease 6. Diabetes mellitus PLAN: -Continue NG tube for decompression -Check computed tomography scan of the abdomen and pelvis without contrast -Check urinalysis with culture Thank you for this consultation Physician Belt Lacer note has been reviewed by physician. Signing provider agrees with the documented findings, assessment, and plan of care. 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 left hip replacement, LEFT breast biopsy, darcy filter rt leg, biopsy of right nostril, biopsy rt breast, right chest dialysis cath Past Anesthesia/Blood Transfusion Reactions: No Reported Reaction Past Psychological History: No Psychological Hx Reported Smoking Status: Former smoker Past Alcohol Use History: None Reported Additional Past Alcohol Use History / Comment(s): smoked 1 pkg from 1961 to 1971 Past Drug Use History: None Reported - Past Family History Mother Family Medical History: No Reported History Additional Family Medical History / Comment(s): Family states pt's mother " of pneumonia". Father Family Medical History: Diabetes Mellitus Medications and Allergies Home Medications Medication Instructions Recorded Confirmed Type Linagliptin [Tradjenta] 5 mg PO DAILY@1500 01/22/14 05/17/20 History Omeprazole [PriLOSEC] 20 mg PO DAILY@0700 01/22/14 05/17/20 History allopurinoL [Zyloprim] 200 mg PO DAILY@0800 01/22/14 05/17/20 History Docusate Sodium [Stool Softener] 100 mg PO BID@899,199902/22/14 05/17/20 History Garlic 1 tab PO BID@09,199902/22/14 05/17/20 History Brinzolamide/Brimonidine Tart 1 drop BOTH EYES BID@0700,199905/11/17 05/17/20 History [Simbrinza 1%-0.2% Eye Drops] Vit C/E/Zn/Coppr/Lutein/Zeaxan 1 cap PO BID@0900,199912/03/17 05/17/20 History [Preservision Areds 2 Softgel] Cholecalciferol (Vitamin D3) 2,000 unit PO DAILY@0800 02/10/18 05/17/20 History [Vitamin D3] Wheat Dextrin [Benefiber] 1 packet PO DAILY@0800 02/10/18 05/17/20 History Midodrine [ProAmatine] 10 mg PO TID@0700,1500,2200 04/10/18 05/17/20 History Rivaroxaban [Xarelto] 10 mg PO DAILY@0800 04/10/18 05/17/20 History Metoprolol Tartrate [Lopressor] 25 mg PO DAILY@1500 06/15/18 05/17/20 History Metoprolol Tartrate [Lopressor] 50 mg PO BID@0700,2200 09/18/18 05/17/20 History Ondansetron [Zofran] 4 mg PO Q12H PRN 09/18/18 05/17/20 History Calcium Acetate [PhosLo] 1,334 mg PO TID@0800,1200,1600 05/17/20 05/17/20 History Torsemide [Demadex] 20 mg PO DAILY@0800 05/17/20 05/17/20 History traMADol HCL 50 mg PO Q6H PRN 05/17/20 05/17/20 History Allergies Allergy/AdvReac Type Severity Reaction Status Date / Time atorvastatin calcium Allergy Unknown Verified 05/17/20 10:14 [From Lipitor] codeine Allergy Unknown Verified 05/17/20 10:14 [From Tylenol-Codeine #3] adhesive tape AdvReac Intermediate Unknown Verified 05/17/20 10:14 hydrocodone AdvReac Vomiting Verified 05/17/20 10:14 Surgical - Exam Vital Signs Temp Pulse Resp BP Pulse Ox 98.0 F 52 L 20 94/63 98 05/16/20 18:56 05/16/20 18:56 05/16/20 18:56 05/16/20 18:56 05/16/20 18:56 Results - Labs 05/19/20 06:40 05/19/20 06:40 Abnormal Lab Results - Last 24 Hours (Table) 05/18/20 05/18/20 05/19/20 Range/Units 16:46 20:41 06:04 RBC (3.80-5.40) m/uL Hgb (11.4-16.0) gm/dL MCV (80.0-100.0) fL MCH (25.0-35.0) pg MCHC (31.0-37.0) g/dL RDW (11.5-15.5) % Lymphocytes # (Manual) (1.0-4.8) k/uL Metamyelocytes # (Man) (0) k/uL Myelocytes # (Manual) (0) k/uL Macrocytosis Chloride (98-107) mmol/L BUN (7-17) mg/dL Creatinine (0.52-1.04) mg/dL Glucose (74-99) mg/dL POC Glucose (mg/dL) 116 H 130 H 114 H (75-99) mg/dL Alkaline Phosphatase (38-126) U/L Total Protein (6.3-8.2) g/dL Albumin (3.5-5.0) g/dL 05/19/20 05/19/20 05/19/20 Range/Units 06:40 06:40 12:03 RBC 2.88 L (3.80-5.40) m/uL Hgb 10.6 L (11.4-16.0) gm/dL MCV 123.1 H D (80.0-100.0) fL MCH 36.9 H (25.0-35.0) pg MCHC 30.0 L (31.0-37.0) g/dL RDW 16.0 H (11.5-15.5) % Lymphocytes # (Manual) 0.90 L (1.0-4.8) k/uL Metamyelocytes # (Man) 0.04 H (0) k/uL Myelocytes # (Manual) 0.04 H (0) k/uL Macrocytosis Marked A Chloride 97 L (98-107) mmol/L BUN 38 H (7-17) mg/dL Creatinine 3.63 H (0.52-1.04) mg/dL Glucose 126 H (74-99) mg/dL POC Glucose (mg/dL) 135 H (75-99) mg/dL Alkaline Phosphatase 137 H (38-126) U/L Total Protein 6.2 L (6.3-8.2) g/dL Albumin 3.4 L (3.5-5.0) g/dL Diabetes panel 05/19/20 Range/Units 06:40 Sodium 137 (137-145) mmol/L Potassium 4.6 (3.5-5.1) mmol/L Chloride 97 L (98-107) mmol/L Carbon Dioxide 26 (22-30) mmol/L BUN 38 H (7-17) mg/dL Creatinine 3.63 H (0.52-1.04) mg/dL Glucose 126 H (74-99) mg/dL Calcium 9.1 (8.4-10.2) mg/dL AST 25 (14-36) U/L ALT 14 (4-34) U/L Alkaline Phosphatase 137 H (38-126) U/L Total Protein 6.2 L (6.3-8.2) g/dL Albumin 3.4 L (3.5-5.0) g/dL Calcium panel 05/19/20 Range/Units 06:40 Calcium 9.1 (8.4-10.2) mg/dL Albumin 3.4 L (3.5-5.0) g/dL Pituitary panel 05/19/20 Range/Units 06:40 Sodium 137 (137-145) mmol/L Potassium 4.6 (3.5-5.1) mmol/L Chloride 97 L (98-107) mmol/L Carbon Dioxide 26 (22-30) mmol/L BUN 38 H (7-17) mg/dL Creatinine 3.63 H (0.52-1.04) mg/dL Glucose 126 H (74-99) mg/dL Calcium 9.1 (8.4-10.2) mg/dL Adrenal panel 05/19/20 Range/Units 06:40 Sodium 137 (137-145) mmol/L Potassium 4.6 (3.5-5.1) mmol/L Chloride 97 L (98-107) mmol/L Carbon Dioxide 26 (22-30) mmol/L BUN 38 H (7-17) mg/dL Creatinine 3.63 H (0.52-1.04) mg/dL Glucose 126 H (74-99) mg/dL Calcium 9.1 (8.4-10.2) mg/dL Total Bilirubin 1.2 (0.2-1.3) mg/dL AST 25 (14-36) U/L ALT 14 (4-34) U/L Alkaline Phosphatase 137 H (38-126) U/L Total Protein 6.2 L (6.3-8.2) g/dL Albumin 3.4 L (3.5-5.0) g/dL <Teodoro Vuong - Last Filed: 05/19/20 16:01> History of Present Illness History of present illness: As above. Patient known to our service. Had ongoing nausea and vomiting. Nasogastric tube was placed with approximately 1 L of output. Feels better currently. She is having bowel movements. We'll check CT abdomen and pelvis. Surgical - Exam Vital Signs Temp Pulse Resp BP Pulse Ox 98.0 F 52 L 20 94/63 98 05/16/20 18:56 05/16/20 18:56 05/16/20 18:56 05/16/20 18:56 05/16/20 18:56 Results - Labs 05/19/20 06:40 05/19/20 06:40 Abnormal Lab Results - Last 24 Hours (Table) 05/18/20 05/18/20 05/19/20 Range/Units 16:46 20:41 06:04 RBC (3.80-5.40) m/uL Hgb (11.4-16.0) gm/dL MCV (80.0-100.0) fL MCH (25.0-35.0) pg MCHC (31.0-37.0) g/dL RDW (11.5-15.5) % Lymphocytes # (Manual) (1.0-4.8) k/uL Metamyelocytes # (Man) (0) k/uL Myelocytes # (Manual) (0) k/uL Macrocytosis Chloride (98-107) mmol/L BUN (7-17) mg/dL Creatinine (0.52-1.04) mg/dL Glucose (74-99) mg/dL POC Glucose (mg/dL) 116 H 130 H 114 H (75-99) mg/dL Alkaline Phosphatase (38-126) U/L Total Protein (6.3-8.2) g/dL Albumin (3.5-5.0) g/dL 05/19/20 05/19/20 05/19/20 Range/Units 06:40 06:40 12:03 RBC 2.88 L (3.80-5.40) m/uL Hgb 10.6 L (11.4-16.0) gm/dL MCV 123.1 H D (80.0-100.0) fL MCH 36.9 H (25.0-35.0) pg MCHC 30.0 L (31.0-37.0) g/dL RDW 16.0 H (11.5-15.5) % Lymphocytes # (Manual) 0.90 L (1.0-4.8) k/uL Metamyelocytes # (Man) 0.04 H (0) k/uL Myelocytes # (Manual) 0.04 H (0) k/uL Macrocytosis Marked A Chloride 97 L (98-107) mmol/L BUN 38 H (7-17) mg/dL Creatinine 3.63 H (0.52-1.04) mg/dL Glucose 126 H (74-99) mg/dL POC Glucose (mg/dL) 135 H (75-99) mg/dL Alkaline Phosphatase 137 H (38-126) U/L Total Protein 6.2 L (6.3-8.2) g/dL Albumin 3.4 L (3.5-5.0) g/dL Diabetes panel 05/19/20 Range/Units 06:40 Sodium 137 (137-145) mmol/L Potassium 4.6 (3.5-5.1) mmol/L Chloride 97 L (98-107) mmol/L Carbon Dioxide 26 (22-30) mmol/L BUN 38 H (7-17) mg/dL Creatinine 3.63 H (0.52-1.04) mg/dL Glucose 126 H (74-99) mg/dL Calcium 9.1 (8.4-10.2) mg/dL AST 25 (14-36) U/L ALT 14 (4-34) U/L Alkaline Phosphatase 137 H (38-126) U/L Total Protein 6.2 L (6.3-8.2) g/dL Albumin 3.4 L (3.5-5.0) g/dL Calcium panel 05/19/20 Range/Units 06:40 Calcium 9.1 (8.4-10.2) mg/dL Albumin 3.4 L (3.5-5.0) g/dL Pituitary panel 05/19/20 Range/Units 06:40 Sodium 137 (137-145) mmol/L Potassium 4.6 (3.5-5.1) mmol/L Chloride 97 L (98-107) mmol/L Carbon Dioxide 26 (22-30) mmol/L BUN 38 H (7-17) mg/dL Creatinine 3.63 H (0.52-1.04) mg/dL Glucose 126 H (74-99) mg/dL Calcium 9.1 (8.4-10.2) mg/dL Adrenal panel 05/19/20 Range/Units 06:40 Sodium 137 (137-145) mmol/L Potassium 4.6 (3.5-5.1) mmol/L Chloride 97 L (98-107) mmol/L Carbon Dioxide 26 (22-30) mmol/L BUN 38 H (7-17) mg/dL Creatinine 3.63 H (0.52-1.04) mg/dL Glucose 126 H (74-99) mg/dL Calcium 9.1 (8.4-10.2) mg/dL Total Bilirubin 1.2 (0.2-1.3) mg/dL AST 25 (14-36) U/L ALT 14 (4-34) U/L Alkaline Phosphatase 137 H (38-126) U/L Total Protein 6.2 L (6.3-8.2) g/dL Albumin 3.4 L (3.5-5.0) g/dL
--- NOTE | 2020-05-19 16:05 | CT ---
EXAMINATION TYPE: CT abdomen pelvis wo con DATE OF EXAM: 05/19/2020 COMPARISON: 02/24/2017, ultrasound 05/17/2020 INDICATION: Evaluate for bowel obstruction DLP: 619.1 mGycm, Automated exposure control for dose reduction was used. CONTRAST: 0 mL of Isovue 300. Study performed without Oral Contrast TECHNIQUE: Axial images were obtained from above the diaphragm to the pubic rami in the axial plane a t 5 mm thick sections. Reconstructed images are reviewed on the computer in the coronal plane. FINDINGS: Limited CT sections are obtained the lung bases. There is a small left pleural effusion.. Coronary artery calcifications present. Prevascular calcification is within the aorta. Nasogastric tube is pre sent transversing the thorax with tip in the gastric cardia of the stomach. This could be withdrawn u p to [address] ABDOMEN: Liver: There are scattered hypodensities within the liver. This is an interval change. Workup for met astatic disease is recommended. Spleen: A few calcified granuloma may be within the spleen. Pancreas: Normal Adrenal glands: The adrenal glands are normal. Gallbladder: Normal Kidneys: Kidneys appear atrophic. No suspicious renal stones are evident. No hydronephrosis or hydrou reter is evident. Aorta: Vascular calcification is within the aorta. Inferior vena cava: Normal. CT PELVIS: There is prior bowel surgery within the left hemipelvis. Most this appears widely patent. Small bowel loops contain fluid and are somewhat prominent. The study is without oral contrast limiting bowel ev aluation. Appendix: Absent Urinary bladder: Decompressed with limited evaluation Genitourinary structures: Uterus and ovaries not identified. Osseous structures: No suspicious lytic or sclerotic lesions. IMPRESSIONS: 1. Multiple fluid-filled small bowel loops. These appear dilated. The colon contains fluid and some fecal debris. Correlate for ileus. Partial small bowel obstruction is not identified. No zone of smith sition is evident. 2. The anastomosis appears chronic on these images. Loops of bowel below the anastomosis are dilated. 3. Multiple ill-defined hypodensities scattered throughout the liver which appears to been interval c hange from 2017. This appears more extensive than the comparison ultrasound. Workup for metastatic di sease is recommended.
[2020-05-19 17:14] LABS: Glucose,Whole Blood 115 mg/dL (75-99)
--- NOTE | 2020-05-19 18:07 | P.PN ---
Subjective Progress Note Date: 05/19/20 Trina Carrillo, is an 85-year-old female who presented to [facility] emergency room with a chief complaint of dizziness and lightheadedness and generalized weakness, patient has a known history of end-stage renal disease on hemodialysis Monday and Monday, chronic systolic congestive heart failure, chronic atrial fibrillation, pulmonary hypertension, and valvular heart disease with aortic stenosis and severe tricuspid regurgitation, severe mitral regurgitation. Patient stated that her symptoms started when she returned from hemodialysis on Monday she also started developing some nausea and vomiting. She was also complaining of some episodes of chest pain and she decided to come to emergency room. patient was evaluated in emergency room her vital examination on presentat ion reveals a temperature of 98 pulse 52 respiration 20 blood pressure 94/63 pulse ox 98% on room air, laboratory data was significant for slightly elevated white blood count of 12.5 hemoglobin 10.4 and platelet count of 191 sodium was 132 potassium 3.5 chloride 92 BUN 25 creatinine 3.34 glucose 125 normal liver enzymes with slightly elevated alkaline phosphatase and normal lipase, EKG done in the emergency room revealed atrial fibrillation with nonspecific ST and T wave abnormalities, patient was admitted to telemetry floor for further evaluation and treatment echocardiogram and carotid Doppler were ordered, cardiology consultation and nephrology consultation were requested. Patient was seen and examined on the telemetry floor, she is complaining of nausea, and generalized weakness, and dizziness otherwise she denies any complaints at this time there is no fever or chills, no headache no chest pain no shortness of breath no cough no vomiting no diarrhea no blood in the stools no burning with urination no frequency or urgency and no hematuria. On 05/18/2020 patient was seen and examined on the medical floor she is alert and oriented 3 in no apparent distress, she is complaining of nausea and occasional vomiting there is no fever or chills no headache or dizziness, no chest pain no shortness of breath no cough there is mild discomfort in the abdomen no diarrhea no blood in the stools no burning with urination no frequency or urgency and no hematuria. Abdomen x-ray is showing evidence of partial small bowel obstruction at this time patient will be kept nothing by mouth consultation for Dr. Vuong was initiated patient is well known to him he operated on her abdomen in the past. n 05/19/2020 patient was seen and examined on the medical floor she is alert and oriented 3 in no distress at this time she has NG tube in to suction she is feeling better with less abdominal pain otherwise she denies any complaints there is no fever or chills no headache or dizziness no chest pain no shortness of breath no cough no nausea or vomiting no burning with urination no frequency or urgency and no hematuria Objective - Vital Signs Vital signs: Vital Signs Temp 97.5 F L 05/19/20 08:00 Pulse 102 H 05/19/20 08:00 Resp 16 05/19/20 08:00 BP 107/68 05/19/20 08:00 Pulse Ox 97 05/19/20 08:00 Intake & Output 05/18/20 05/19/20 05/19/20 18:59 06:59 18:59 Intake Total 100 50 Output Total 0 0 Balance 100 50 Intake: Oral 100 50 Output: Urine 0 Hemodialysis 0 Other: Voiding Method Bedside Commode Bedside Commode # Voids 2 0 # Bowel Movements 1 - Exam in general patient is alert and oriented 3 in no apparent distress HEENT head normocephalic and atraumatic Neck is supple no JVD no goiter no lymphadenopathy Chest exam reveals a few scattered crackles bilaterally no wheezing Cardiac exam reveals regular heart sounds S1 and S2 no gallops no murmurs Abdomen is soft with tenderness in the epigastric area no organomegaly no palpable masses was normal bowel sounds Extremity exam reveals 1+ edema bilaterally no cyanosis or clubbing Neurological examination reveals no gross focal deficit - Labs CBC & Chem 7: 05/19/20 06:40 05/19/20 06:40 Labs: Abnormal Lab Results - Last 24 Hours (Table) 05/18/20 05/18/20 05/18/20 Range/Units 11:34 16:46 20:41 RBC (3.80-5.40) m/uL Hgb (11.4-16.0) gm/dL MCV (80.0-100.0) fL MCH (25.0-35.0) pg MCHC (31.0-37.0) g/dL RDW (11.5-15.5) % Lymphocytes # (Manual) (1.0-4.8) k/uL Metamyelocytes # (Man) (0) k/uL Myelocytes # (Manual) (0) k/uL Macrocytosis Chloride (98-107) mmol/L BUN (7-17) mg/dL Creatinine (0.52-1.04) mg/dL Glucose (74-99) mg/dL POC Glucose (mg/dL) 126 H 116 H 130 H (75-99) mg/dL Alkaline Phosphatase (38-126) U/L Total Protein (6.3-8.2) g/dL Albumin (3.5-5.0) g/dL 05/19/20 05/19/20 05/19/20 Range/Units 06:04 06:40 06:40 RBC 2.88 L (3.80-5.40) m/uL Hgb 10.6 L (11.4-16.0) gm/dL MCV 123.1 H D (80.0-100.0) fL MCH 36.9 H (25.0-35.0) pg MCHC 30.0 L (31.0-37.0) g/dL RDW 16.0 H (11.5-15.5) % Lymphocytes # (Manual) 0.90 L (1.0-4.8) k/uL Metamyelocytes # (Man) 0.04 H (0) k/uL Myelocytes # (Manual) 0.04 H (0) k/uL Macrocytosis Marked A Chloride 97 L (98-107) mmol/L BUN 38 H (7-17) mg/dL Creatinine 3.63 H (0.52-1.04) mg/dL Glucose 126 H (74-99) mg/dL POC Glucose (mg/dL) 114 H (75-99) mg/dL Alkaline Phosphatase 137 H (38-126) U/L Total Protein 6.2 L (6.3-8.2) g/dL Albumin 3.4 L (3.5-5.0) g/dL Assessment and Plan Plan: 1. symptoms of nausea vomiting and generalized weakness and dizziness, cause is unclear, will check abdomen ultrasound 2. Underlying history of end-stage renal disease on hemodialysis, nephrology consultation requested 3. Underlying history of chronic systolic congestive heart failure without evidence of exacerbation at this time 4. Underlying history of chronic persistent atrial fibrillation 5. Underlying history of pulmonary hypertension 6. Underlying history of valvular heart disease 7. underlying history of diabetes mellitus 8. Evidence of small bowel obstruction on abdomen x-ray patient will be kept nothing by mouth Will consult Dr. Vuong, NG tube is in place At this time will check echocardiogram and carotid Doppler Check chest x-ray, check abdomen ultrasound Consultation for cardiology and nephrology were initiated Will follow closely Prognosis is guarded due to age and multiple underlying morbidities.
[2020-05-19 21:08] LABS: Glucose,Whole Blood 101 mg/dL (75-99)
[2020-05-20] MEDS: MORPHINE SULFATE 2 MG/ML SYRINGE IVP PRN ×4 (02:44→20:41)
[2020-05-20 06:08] LABS: Glucose,Whole Blood 100 mg/dL (75-99)
[2020-05-20] MEDS: BRIMONIDINE TARTRATE 0.2% DROPS 5 ML BTL BOTH EYES SCH ×2 (06:08→23:06)
[2020-05-20] MEDS: DORZOLAMIDE HCL 2% DROPS 10 ML BTL BOTH EYES SCH ×2 (06:08→23:06)
[2020-05-20] MEDS: TORSEMIDE 20 MG TAB PO SCH (09:39)
[2020-05-20] MEDS: CALCIUM ACETATE 667 MG TAB PO SCH ×3 (09:39→15:39)
[2020-05-20] MEDS: RIVAROXABAN 10 MG TAB PO SCH (09:39)
[2020-05-20 12:06] LABS: Glucose,Whole Blood 97 mg/dL (75-99)
--- NOTE | 2020-05-20 12:21 | P.PN ---
<KatmariahHina - Last Filed: 05/20/20 12:11> Subjective Progress Note Date: 05/20/20 CHIEF COMPLAINT: Abdominal pain with nausea and vomiting HISTORY OF PRESENT ILLNESS: Patient is being followed for partial mechanical small bowel obstruction. She has NG tube in place. Patient had 75 mL out through NG tube through the night. She reports improvement in her abdominal pain. She denies any nausea. Patient did have a bowel movement yesterday. She is afebrile. lactic 2.1. Patient also had some hypotension this morning Computed tomography scan abdomen and pelvis shows multiple fluid filled small bowel loops. These appear dilated. The colon contains fluid and some fecal debris. Correlate for ileus. Partial small bowel obstruction is not identified. The anastomosis appears chronic on these images. Loops of bowel below the anastomosis are dilated. Multiple ill-defined hypodensities scattered throughout the liver which appear to been interval change from 2017. These appear more extensive than comparison ultrasound. PHYSICAL EXAM: VITAL SIGNS: Reviewed. GENERAL: Well-developed in no acute distress. HEENT: No sclera icterus. Extraocular movements grossly intact. Moist buccal mucosa. Head is atraumatic, normocephalic. ABDOMEN: is softer today. Nondistended. Mild diffuse tenderness to palpation. NG tube in place. NEUROLOGIC: Alert and oriented. Cranial nerves II through XII grossly intact. ASSESSMENT: 1. Partial mechanical small bowel obstruction 2. Multiple ill-defined hypodensities scattered throughout the liver noted on CAT scan 3. Prior history of bowel obstruction with bowel resection PLAN: -Continue NG tube for decompression -We will continue to monitor Physician Line Lead note has been reviewed by physician. Signing provider agrees with the documented findings, assessment, and plan of care. Objective - Vital Signs Vital signs: Vital Signs Temp 97.1 F L 05/20/20 08:21 Pulse 98 05/20/20 08:57 Resp 18 05/20/20 08:57 BP 98/48 05/20/20 09:43 Pulse Ox 98 05/20/20 04:00 Intake & Output 05/19/20 05/20/20 05/20/20 18:59 06:59 18:59 Output Total 200 Balance -200 Weight 74 kg Output: Gastric Drainage 200 Urine 0 Other: Voiding Method Bedside Commode Bedside Commode Toilet Bedpan # Voids 1 1 # Bowel Movements 1 - Labs CBC & Chem 7: 05/19/20 06:40 05/19/20 06:40 Labs: Abnormal Lab Results - Last 24 Hours (Table) 05/19/20 05/19/20 05/20/20 Range/Units 17:12 21:06 06:07 POC Glucose (mg/dL) 115 H 101 H 100 H (75-99) mg/dL Plasma Lactic Acid Kyle (0.7-2.0) mmol/L 05/20/20 Range/Units 10:42 POC Glucose (mg/dL) (75-99) mg/dL Plasma Lactic Acid Kyle 2.1 H* (0.7-2.0) mmol/L <Anamika Vuongony - Last Filed: 05/20/20 21:04> Subjective As above. Patient today was found to have low blood pressure. IV fluids were held because of her kidney failure and history of CHF. Patient has received boluses. She was transferred to the ICU. She was started on pressors. Doing better currently. No change in abdominal exam. Lactic acid was somewhat elevated although normalized now. Urinalysis suggest possible urinary tract infection. Looking at the CAT scan I suspect probably ileus secondary to UTI at this point rather than small bowel obstruction. Patient is a poor surgical candidate and either way in the family is not in favor of surgery or mechanical ventilation at this time. Continue aggressive medical support. Await cultures. Keep nasogastric tube to suction. We'll follow. Objective - Vital Signs Vital signs: Vital Signs Temp 97.1 F L 05/20/20 08:21 Pulse 115 H 05/20/20 19:00 Resp 17 05/20/20 19:00 BP 105/31 05/20/20 15:15 Pulse Ox 95 05/20/20 18:45 Intake & Output 05/20/20 05/20/20 05/21/20 06:59 18:59 06:59 Intake Total 673.539 100 Output Total 20 Balance 653.539 100 Weight 74 kg Intake: IV 500 100 NS 500 100 Intake, IV Titration 173.539 Amount Norepinephrine 4 mg In 73.539 Sodium Chloride 0.9% 250 ml @ 0.05 MCG/KG/MIN 14. 097 mls/hr IV .Q18H2M [facility] Rx#:[id number] Piperacillin-Tazobactam 3 100 .375 gm In Sodium Chloride 0.9% 100 ml @ 25 mls/hr IVPB Q12HR@0000, 1200 [facility] Rx#:[id number] Output: Urine 20 Other: Voiding Method Bedside Commode Toilet Bedpan # Voids 1 ABP, PAP, CO, CI - Last Documented Arterial Blood Pressure 105/55 - Labs CBC & Chem 7: 05/19/20 06:40 05/20/20 13:40 Labs: Abnormal Lab Results - Last 24 Hours (Table) 05/19/20 05/20/20 05/20/20 Range/Units 21:06 06:07 10:42 Carbon Dioxide (22-30) mmol/L BUN (7-17) mg/dL Creatinine (0.52-1.04) mg/dL Glucose (74-99) mg/dL POC Glucose (mg/dL) 101 H 100 H (75-99) mg/dL Plasma Lactic Acid Kyle 2.1 H* (0.7-2.0) mmol/L Urine Appearance (Clear) Urine Protein (Negative) Urine Blood (Negative) Ur Leukocyte Esterase (Negative) Urine RBC (0-5) /hpf Urine WBC (0-5) /hpf Urine WBC Clumps (None) /hpf Urine Bacteria (None) /hpf 05/20/20 05/20/20 Range/Units 13:35 13:40 Carbon Dioxide 16 L (22-30) mmol/L BUN 61 H (7-17) mg/dL Creatinine 4.83 H (0.52-1.04) mg/dL Glucose 105 H (74-99) mg/dL POC Glucose (mg/dL) (75-99) mg/dL Plasma Lactic Acid Kyle (0.7-2.0) mmol/L Urine Appearance Turbid H (Clear) Urine Protein 2+ H (Negative) Urine Blood Small H (Negative) Ur Leukocyte Esterase Large H (Negative) Urine RBC 100 H (0-5) /hpf Urine WBC >182 H (0-5) /hpf Urine WBC Clumps Many H (None) /hpf Urine Bacteria Many H (None) /hpf Microbiology - Last 24 Hours (Table) 05/20/20 13:35 Urine Culture - Preliminary Urine,Clean Catch
[2020-05-20] MEDS: NOREPINEPHRINE 4 MG in SODIUM CHLORIDE 0.9% 250 ML IV SCH ×2 (13:21→21:48)
[2020-05-20 13:23] LABS: Glucose,Whole Blood 89 mg/dL (75-99)
--- NOTE | 2020-05-20 13:43 | P.PN ---
Subjective Progress Note Date: 05/20/20 Trina Carrillo, is an 85-year-old female who presented to [facility] emergency room with a chief complaint of dizziness and lightheadedness and generalized weakness, patient has a known history of end-stage renal disease on hemodialysis Monday and Monday, chronic systolic congestive heart failure, chronic atrial fibrillation, pulmonary hypertension, and valvular heart disease with aortic stenosis and severe tricuspid regurgitation, severe mitral regurgitation. Patient stated that her symptoms started when she returned from hemodialysis on Monday she also started developing some nausea and vomiting. She was also complaining of some episodes of chest pain and she decided to come to emergency room. patient was evaluated in emergency room her vital examination on presentat ion reveals a temperature of 98 pulse 52 respiration 20 blood pressure 94/63 pulse ox 98% on room air, laboratory data was significant for slightly elevated white blood count of 12.5 hemoglobin 10.4 and platelet count of 191 sodium was 132 potassium 3.5 chloride 92 BUN 25 creatinine 3.34 glucose 125 normal liver enzymes with slightly elevated alkaline phosphatase and normal lipase, EKG done in the emergency room revealed atrial fibrillation with nonspecific ST and T wave abnormalities, patient was admitted to telemetry floor for further evaluation and treatment echocardiogram and carotid Doppler were ordered, cardiology consultation and nephrology consultation were requested. Patient was seen and examined on the telemetry floor, she is complaining of nausea, and generalized weakness, and dizziness otherwise she denies any complaints at this time there is no fever or chills, no headache no chest pain no shortness of breath no cough no vomiting no diarrhea no blood in the stools no burning with urination no frequency or urgency and no hematuria. On 05/18/2020 patient was seen and examined on the medical floor she is alert and oriented 3 in no apparent distress, she is complaining of nausea and occasional vomiting there is no fever or chills no headache or dizziness, no chest pain no shortness of breath no cough there is mild discomfort in the abdomen no diarrhea no blood in the stools no burning with urination no frequency or urgency and no hematuria. Abdomen x-ray is showing evidence of partial small bowel obstruction at this time patient will be kept nothing by mouth consultation for Dr. Vuong was initiated patient is well known to him he operated on her abdomen in the past. n 05/19/2020 patient was seen and examined on the medical floor she is alert and oriented 3 in no distress at this time she has NG tube in to suction she is feeling better with less abdominal pain otherwise she denies any complaints there is no fever or chills no headache or dizziness no chest pain no shortness of breath no cough no nausea or vomiting no burning with urination no frequency or urgency and no hematuria On 05/20/2020 patient is alert and oriented 3. Patient having low blood pressure and elevated heart rate. Patient has been ordered to transfer to the ICU. ICU nurse currently at bedside and midline has been placed. Critical care doctor Jen has ordered patient to be started on Levophed for pressure support at this time. Lactic acid did come back slightly elevated at 2.1. Blood cultures have been ordered Dr. Berman has been consulted. Blood pressure has imp roved to 120s. Patient remains with NG tube dissection surgery is following. Per nephrology plans for hemodialysis today due to low blood pressure. Patient will be transferred to the intensive care unit for closer monitoring critical care and infectious disease consult placed at this time patient is alert and oriented. Patient reports that she did feel out of it when her pressure was low but has improved. Patient denies any chest pain or shortness of breath. Patient denies nausea vomiting or diarrhea. Patient denies any urinary burning or frequency. Per urology services also consulted and patient started on Zosyn. Objective - Vital Signs Vital signs: Vital Signs Temp 97.1 F L 05/20/20 08:21 Pulse 98 05/20/20 08:57 Resp 18 05/20/20 08:57 BP 98/48 05/20/20 09:43 Pulse Ox 98 05/20/20 04:00 Intake & Output 05/19/20 05/20/20 05/20/20 18:59 06:59 18:59 Output Total 200 Balance -200 Weight 74 kg Output: Gastric Drainage 200 Urine 0 Other: Voiding Method Bedside Commode Bedside Commode Toilet Bedpan # Voids 1 1 # Bowel Movements 1 - Exam in general patient is alert and oriented 3 in no apparent distress HEENT head normocephalic and atraumatic Neck is supple no JVD no goiter no lymphadenopathy Chest exam reveals a few scattered crackles bilaterally no wheezing Cardiac exam reveals regular heart sounds S1 and S2 no gallops no murmurs Abdomen is soft with tenderness in the epigastric area no organomegaly no palpable masses was normal bowel sounds Extremity exam reveals 1+ edema bilaterally no cyanosis or clubbing Neurological examination reveals no gross focal deficit - Labs CBC & Chem 7: 05/19/20 06:40 05/19/20 06:40 Labs: Abnormal Lab Results - Last 24 Hours (Table) 05/19/20 05/19/20 05/20/20 Range/Units 17:12 21:06 06:07 POC Glucose (mg/dL) 115 H 101 H 100 H (75-99) mg/dL Plasma Lactic Acid Kyle (0.7-2.0) mmol/L 05/20/20 Range/Units 10:42 POC Glucose (mg/dL) (75-99) mg/dL Plasma Lactic Acid Kyle 2.1 H* (0.7-2.0) mmol/L Assessment and Plan Assessment: Plan: 1. Partial mechanical small bowel obstruction with symptoms of nausea vomiting and generalized weakness and dizziness, cause is unclear, will check abdomen ultrasound. Surgical surfaces are following continue NG tube for decompression per surgical services. 2. Underlying history of end-stage renal disease on hemodialysis, nephrology consultation requested 3. Underlying history of chronic systolic congestive heart failure without evidence of exacerbation at this time. 2-D echo completed showing EF of 50-55%. Cardiology services consulted 4. Underlying history of chronic persistent atrial fibrillation 5. Underlying history of pulmonary hypertension 6. Underlying history of valvular heart disease 7. underlying history of diabetes mellitus 8. Hypotension. Blood pressure dropping to the 70s. Patient received 2 IV boluses. Patient has been ordered to transfer to intensive care unit and Levophed has been ordered per critical care. 9. Elevated lactic acid. Lactic acid 2.1. Patient started on Zosyn, blood culture ordered and infectious disease [employer] consultant Patient will be transferred to the intensive care unit Critical care, infectious disease, nephrology, cardiology and surgical services following Patient started on IV Zosyn and blood culture ordered Prognosis is guarded due to age and multiple underlying morbidities. I performed an examination of the patient and discussed their management with the Nurse Practitioner. I have reviewed the Nurse Practitioner's notes and agree with the documented findings and plan of care
[2020-05-20] MEDS ORDERED: NALOXONE 0.4 MG/ML 1 ML VIAL IV PRN (13:44)
[2020-05-20 14:20] LABS: Calcium 8.6 mg/dL (8.4-10.2); Potassium 3.8 mmol/L (3.5-5.1)
[2020-05-20 14:33] LABS: Appearance,Urine Turbid (Clear); Bilirubin,Urine Negative (Negative); Blood,Urine Small (Negative); Color,Urine Red; Glucose,Urine (UA) Negative (Negative); Ketones,Urine Negative (Negative); Leukocyte Esterase,Urine Large (Negative); Nitrite,Urine Negative (Negative); PH, Urine 6.5 (5.0-8.0); Protein,Urine 2+ (Negative); Squamous Epithelial Cell,Urine 2 /hpf (0-4)
[2020-05-20 14:35] LABS: Bacteria,Urine Many /hpf; RBC,Urine 100 /hpf (0-5); WBC,Urine >182 /hpf (0-5)
[2020-05-20] MEDS: PIPERACILLIN-TAZOBACTAM 3.375 GM in SODIUM CHLORIDE 0.9% 100 ML IVPB SCH ×2 (14:53→23:05)
--- NOTE | 2020-05-20 14:53 | P.CNPUL ---
History of Present Illness Consult date: 05/20/20 Requesting physician: Elyse Owen Reason for consult: other (Critical care management) Chief complaint: Nausea, vomiting, abdominal pain History of present illness: This is a very pleasant 85-year-old female patient who follows with Dr. Owen as her primary care provider. She has history of atrial fibrillation anticoagulated with Xarelto, poor vision, hypertension, diabetes mellitus, coronary artery disease, congestive heart failure, DVT, end-stage renal disease and on hemodialysis Monday since October 2019. She is a lifelong nonsmoker. She presented here on 05/16/2020 with complaints of abdominal discomfort and nausea and vomiting, poor appetite. She has been compliant with her dialysis treatments. CAT scan of the abdomen and pelvis revealed multiple fluid-filled small bowel loops. The appeared dilated.: Contains fluid and some fecal debris. Correlate for ileus. Partial small bowel obstruction not identified. Previous surgical changes with anastomosis appear chronic. Multiple ill-defined hypodensities scattered throughout the liver which appeared to have increased compared to 2017. She has been seen and evaluated by surgical services. Nasogastric tube has been placed. See well on the regular medical floor she developed hypotension and an A was called. She been transferred to the intensive care unit where consulted for the same. She has received 1-1/2 L of fluid resuscitation. She is initiated on norepinephrine currently at 0.16 mcg/kg/m. Blood cultures and urine cultures are pending. Right upper extremity midline placed. She remains awake and alert in no acute distress. Maintaining O2 saturations in the 90s on room air. She is in A. fib with RVR. She has been initiated on Zosyn. Review of Systems REVIEW OF SYSTEMS: CONSTITUTIONAL: Denies any recent significant weight loss or weight gain. EYES: Denies change in vision. EARS, NOSE, MOUTH, THROAT: Denies headaches, denies sore throat. CARDIOVASCULAR: Denies chest pain, palpitations or syncopal episodes. RESPIRATORY: Denies shortness of breath, cough, congestion or hemoptysis. GASTROINTESTINAL: Poor appetite, positive abdominal pain GENITOURINARY: Denies hematuria, denies infections. MUSKULOSKELETAL: Denies pain, denies swelling. INTEGUMENTARY: Denies rash, denies eczema. NEUROLOGICAL: Denies recent memory loss, no recent seizure activity. PSYCHIATRIC: Denies anxiety, denies depression. HEMATOLOGIC/LYMPHATIC: Denies anemia, denies enlarged lymph nodes. Past Medical History Past Medical History: Atrial Fibrillation, Coronary Artery Disease (CAD), Cancer, Heart Failure, Diabetes Mellitus, Deep Vein Thrombosis (DVT), Eye Disorder, GERD/Reflux, Hypertension, Renal Disease Additional Past Medical History / Comment(s): Macular Degeneration and glaucoma, gallstones, stage 4 kidney failure, hx Uterine & groin CA; WEARS BILAT THIGH HIGH HOSE, uses cane or walker, patient states she has "2 blood clots in right groin since 2003" family states now clot is "through the whole leg", CHF, rt hip bone and bone, dialysis since october 2019 M,W,F History of Any Multi-Drug Resistant Organisms: ESBL, VRE Date of last positivie culture/infection: 02/11/19 ESBL E.Coli; 09/29/13 VRE MDRO Source:: UNKNOWN Past Surgical History: Appendectomy, Bowel Resection, Hysterectomy, Joint Replac ement Additional Past Surgical History / Comment(s): gastrointestinal surgery for bowel obstruction. left hip replacement, LEFT breast biopsy, darcy filter rt leg, biopsy of right nostril, biopsy rt breast, right chest dialysis cath Past Anesthesia/Blood Transfusion Reactions: No Reported Reaction Past Psychological History: No Psychological Hx Reported Smoking Status: Former smoker Past Alcohol Use History: None Reported Additional Past Alcohol Use History / Comment(s): smoked 1 pkg from 1961 to 1971 Past Drug Use History: None Reported - Past Family History Mother Family Medical History: No Reported History Additional Family Medical History / Comment(s): Family states pt's mother " of pneumonia". Father Family Medical History: Diabetes Mellitus Medications and Allergies Home Medications Medication Instructions Recorded Confirmed Type Linagliptin [Tradjenta] 5 mg PO DAILY@1500 01/22/14 05/17/20 History Omeprazole [PriLOSEC] 20 mg PO DAILY@0700 01/22/14 05/17/20 History allopurinoL [Zyloprim] 200 mg PO DAILY@0800 01/22/14 05/17/20 History Docusate Sodium [Stool Softener] 100 mg PO BID@09,199902/22/14 05/17/20 History Garlic 1 tab PO BID@09,199902/22/14 05/17/20 History Brinzolamide/Brimonidine Tart 1 drop BOTH EYES BID@699,199905/11/17 05/17/20 History [Simbrinza 1%-0.2% Eye Drops] Vit C/E/Zn/Coppr/Lutein/Zeaxan 1 cap PO BID@0900,199912/03/17 05/17/20 History [Preservision Areds 2 Softgel] Cholecalciferol (Vitamin D3) 2,000 unit PO DAILY@0800 02/10/18 05/17/20 History [Vitamin D3] Wheat Dextrin [Benefiber] 1 packet PO DAILY@0800 02/10/18 05/17/20 History Midodrine [ProAmatine] 10 mg PO TID@0700,1500,2200 04/10/18 05/17/20 History Rivaroxaban [Xarelto] 10 mg PO DAILY@0800 04/10/18 05/17/20 History Metoprolol Tartrate [Lopressor] 25 mg PO DAILY@1500 06/15/18 05/17/20 History Metoprolol Tartrate [Lopressor] 50 mg PO BID@0700,2200 09/18/18 05/17/20 History Ondansetron [Zofran] 4 mg PO Q12H PRN 09/18/18 05/17/20 History Calcium Acetate [PhosLo] 1,334 mg PO TID@0800,1200,1600 05/17/20 05/17/20 History Torsemide [Demadex] 20 mg PO DAILY@0800 05/17/20 05/17/20 History traMADol HCL 50 mg PO Q6H PRN 05/17/20 05/17/20 History Allergies Allergy/AdvReac Type Severity Reaction Status Date / Time atorvastatin calcium Allergy Unknown Verified 05/17/20 10:14 [From Lipitor] codeine Allergy Unknown Verified 05/17/20 10:14 [From Tylenol-Codeine #3] adhesive tape AdvReac Intermediate Unknown Verified 05/17/20 10:14 hydrocodone AdvReac Vomiting Verified 05/17/20 10:14 Physical Exam Vitals: Vital Signs Temp Pulse Resp BP BP BP Pulse Ox 05/20/20 09:43 98/48 05/20/20 08:57 98 18 05/20/20 08:21 97.1 F L 98 18 77/48 05/20/20 08:00 98 05/20/20 04:00 97.5 F L 90 18 150/78 98 05/19/20 23:56 98.0 F 86 17 119/84 97 05/19/20 20:00 98.1 F 103 H 17 121/73 96 05/19/20 15:55 97.7 F 100 16 105/61 98 Intake and Output 05/19/20 05/20/20 05/20/20 22:59 06:59 14:59 Intake Total 30.309 Output Total 200 Balance -200 30.309 Intake: Intake, IV Titration 30.309 Amount Norepinephrine 4 mg In 30.309 Sodium Chloride 0.9% 250 ml @ 0.05 MCG/KG/MIN 14. 097 mls/hr IV .Q18H2M [facility] Rx#:[id number] Output: Gastric Drainage 200 Urine 0 Other: Voiding Method Bedside Commode Bedside Commode Toilet Bedpan # Voids 1 1 Weight 74 kg GENERAL EXAM: Alert, pleasant 85-year-old female patient, on room air, comfortable in no apparent distress. HEAD: Normocephalic. EYES: Normal reaction of pupils, equal size. Poor vision. NOSE: Nasogastric tube secured in place. Clear with pink turbinates. THROAT: No erythema or exudates. NECK: No masses, no JVD. CHEST: No chest wall deformity. LUNGS: Equal air entry with no crackles, wheeze, rhonchi or dullness. CVS: S1 and S2 normal with no audible murmur, irregular rhythm, tachycardic. ABDOMEN: No hepatosplenomegaly, normal bowel sounds, no guarding or rigidity. SPINE: No scoliosis or deformity SKIN: No rashes CENTRAL NERVOUS SYSTEM: No focal deficits, tone is normal in all 4 extremities. EXTREMITIES: There is no peripheral edema. No clubbing, no cyanosis. Peripheral pulses are intact. Results - Laboratory Findings CBC and BMP: 05/19/20 06:40 05/20/20 13:40 Abnormal lab findings: Abnormal Labs 05/16/20 05/16/20 05/17/20 22:25 22:25 06:20 WBC 12.5 H RBC 2.88 L Hgb 10.4 L Hct 33.1 L MCV 114.9 H MCH 36.1 H MCHC RDW Neutrophils # Neutrophils # (Manual) 10.88 H Lymphocytes # (Manual) Metamyelocytes # (Man) Myelocytes # (Manual) Macrocytosis Marked A Sodium 132 L Chloride 92 L Carbon Dioxide BUN 25 H Creatinine 3.34 H Glucose 125 H POC Glucose (mg/dL) 115 H Plasma Lactic Acid Kyle Total Bilirubin Alkaline Phosphatase 140 H Total Protein Albumin Urine Appearance Urine Protein Urine Blood Ur Leukocyte Esterase Urine RBC Urine WBC Urine WBC Clumps Urine Bacteria 05/17/20 05/17/20 05/17/20 08:22 08:22 20:17 WBC RBC 2.87 L Hgb 10.6 L Hct 33.3 L MCV 115.9 H MCH 36.8 H MCHC RDW 15.7 H Neutrophils # 8.3 H Neutrophils # (Manual) Lymphocytes # (Manual) Metamyelocytes # (Man) Myelocytes # (Manual) Macrocytosis Marked A Sodium 134 L Chloride 93 L Carbon Dioxide BUN 30 H Creatinine 4.02 H Glucose 156 H POC Glucose (mg/dL) 132 H Plasma Lactic Acid Kyle Total Bilirubin 1.5 H Alkaline Phosphatase 133 H Total Protein Albumin Urine Appearance Urine Protein Urine Blood Ur Leukocyte Esterase Urine RBC Urine WBC Urine WBC Clumps Urine Bacteria 05/18/20 05/18/20 05/18/20 06:06 06:41 06:41 WBC 3.6 L RBC 2.84 L Hgb 10.3 L Hct 32.6 L MCV 114.5 H MCH 36.1 H MCHC RDW 15.7 H Neutrophils # Neutrophils # (Manual) Lymphocytes # (Manual) 0.97 L Metamyelocytes # (Man) Myelocytes # (Manual) Macrocytosis Marked A Sodium 133 L Chloride 94 L Carbon Dioxide BUN 48 H Creatinine 5.05 H Glucose 127 H POC Glucose (mg/dL) 118 H Plasma Lactic Acid Kyle Total Bilirubin 1.7 H Alkaline Phosphatase 138 H Total Protein Albumin 3.4 L Urine Appearance Urine Protein Urine Blood Ur Leukocyte Esterase Urine RBC Urine WBC Urine WBC Clumps Urine Bacteria 05/18/20 05/18/20 05/18/20 11:34 16:46 20:41 WBC RBC Hgb Hct MCV MCH MCHC RDW Neutrophils # Neutrophils # (Manual) Lymphocytes # (Manual) Metamyelocytes # (Man) Myelocytes # (Manual) Macrocytosis Sodium Chloride Carbon Dioxide BUN Creatinine Glucose POC Glucose (mg/dL) 126 H 116 H 130 H Plasma Lactic Acid Kyle Total Bilirubin Alkaline Phosphatase Total Protein Albumin Urine Appearance Urine Protein Urine Blood Ur Leukocyte Esterase Urine RBC Urine WBC Urine WBC Clumps Urine Bacteria 05/19/20 05/19/20 05/19/20 06:04 06:40 06:40 WBC RBC 2.88 L Hgb 10.6 L Hct MCV 123.1 H D MCH 36.9 H MCHC 30.0 L RDW 16.0 H Neutrophils # Neutrophils # (Manual) Lymphocytes # (Manual) 0.90 L Metamyelocytes # (Man) 0.04 H Myelocytes # (Manual) 0.04 H Macrocytosis Marked A Sodium Chloride 97 L Carbon Dioxide BUN 38 H Creatinine 3.63 H Glucose 126 H POC Glucose (mg/dL) 114 H Plasma Lactic Acid Kyle Total Bilirubin Alkaline Phosphatase 137 H Total Protein 6.2 L Albumin 3.4 L Urine Appearance Urine Protein Urine Blood Ur Leukocyte Esterase Urine RBC Urine WBC Urine WBC Clumps Urine Bacteria 05/19/20 05/19/20 05/19/20 12:03 17:12 21:06 WBC RBC Hgb Hct MCV MCH MCHC RDW Neutrophils # Neutrophils # (Manual) Lymphocytes # (Manual) Metamyelocytes # (Man) Myelocytes # (Manual) Macrocytosis Sodium Chloride Carbon Dioxide BUN Creatinine Glucose POC Glucose (mg/dL) 135 H 115 H 101 H Plasma Lactic Acid Kyle Total Bilirubin Alkaline Phosphatase Total Protein Albumin Urine Appearance Urine Protein Urine Blood Ur Leukocyte Esterase Urine RBC Urine WBC Urine WBC Clumps Urine Bacteria 05/20/20 05/20/20 05/20/20 06:07 10:42 13:35 WBC RBC Hgb Hct MCV MCH MCHC RDW Neutrophils # Neutrophils # (Manual) Lymphocytes # (Manual) Metamyelocytes # (Man) Myelocytes # (Manual) Macrocytosis Sodium Chloride Carbon Dioxide BUN Creatinine Glucose POC Glucose (mg/dL) 100 H Plasma Lactic Acid Kyle 2.1 H* Total Bilirubin Alkaline Phosphatase Total Protein Albumin Urine Appearance Turbid H Urine Protein 2+ H Urine Blood Small H Ur Leukocyte Esterase Large H Urine RBC 100 H Urine WBC >182 H Urine WBC Clumps Many H Urine Bacteria Many H 05/20/20 13:40 WBC RBC Hgb Hct MCV MCH MCHC RDW Neutrophils # Neutrophils # (Manual) Lymphocytes # (Manual) Metamyelocytes # (Man) Myelocytes # (Manual) Macrocytosis Sodium Chloride Carbon Dioxide 16 L BUN 61 H Creatinine 4.83 H Glucose 105 H POC Glucose (mg/dL) Plasma Lactic Acid Kyle Total Bilirubin Alkaline Phosphatase Total Protein Albumin Urine Appearance Urine Protein Urine Blood Ur Leukocyte Esterase Urine RBC Urine WBC Urine WBC Clumps Urine Bacteria - Diagnostic Findings Chest x-ray: image reviewed Assessment and Plan Assessment: 1 Abdominal pain with nausea and vomiting secondary to ileus, history of previous bowel resection 2 Hypotension requiring pressor support secondary to dehydration secondary to above 3 End stage renal disease requiring hemodialysis Monday, creatinine 4.83 4 Urinary tract infection 5 Atrial fibrillation with rapid ventricular response, anticoagulated with Xarelto, currently on hold per surgical services 6 Hypertension, history of 7 Hyperlipidemia 8 Diabetes mellitus 9 Valvular heart disease 10 Pulmonary hypertension 11 Poor vision 12 History of congestive heart failure 13 History of DVT, previous [place] filter placement 14 History of gastroesophageal reflux disease Shadia: The patient was seen and evaluated by Dr. Torres Initiate norepinephrine to stabilize blood pressure Initiated additional 500 ML's of 0.9 normal saline Arterial line placement for hemodynamic monitoring Initiate Zosyn Surgical consult noted We will continue to follow and make further recommendations based on her clinical status I, the cosigning physician, performed a history & physical examination of the patient. Lungs sounds are clear. Maintaining good O2 saturations in the 90s on room air. I discussed the assessment and plan of care with my nurse practitioner, Karina Junior. I attest to the above consultation as dictated by her. Time with Patient: Greater than 30
--- NOTE | 2020-05-20 15:23 | PN ---
PROGRESS NOTE Patient is seen for followup for end-stage renal disease. She currently has an NG tube in place for bowel obstruction. Patient is being followed by General Surgery. This morning she states her stomach feels better, although she is weak. Her blood pressure had been low, but it had improved to around 100 mmHg previously. Patient is scheduled for hemodialysis today. PHYSICAL EXAMINATION: This morning blood pressure was 98/48, heart rate 98 per minute, she is afebrile. Examination of the heart S1, S2. Examination of the lungs, bilateral breath sounds are heard. Abdomen is soft, nontender. Examination of the lower extremities shows edema, trace bilaterally. GENERATOR TECHNICIAN exam grossly intact. LABS: Show lactic acid 2.1 from today. Other labs are not available from yesterday, potassium was 4.6. ASSESSMENT: 1. End-stage renal disease, on hemodialysis on a Monday, Monday, Monday schedule. We will hold off on dialysis today and plan for tomorrow as blood pressure was significantly low earlier this morning. 2. Bowel obstruction, currently with NG tube being followed by Surgery. 3. Hypotension possibly related to some degree of hypovolemia as well as patient has significant output from her ostomy. 4. CKD mineral bone disorder. 5. Anemia of chronic disease. PLAN: Hold dialysis today, we will plan for treatment tomorrow. Continue with NG tube and check labs today. MMODL / IJN: [id number] /
[2020-05-20 18:09] LABS: Glucose,Whole Blood 82 mg/dL (75-99)
[2020-05-20 20:21] LABS: Glucose,Whole Blood 98 mg/dL (75-99)
[2020-05-20] MEDS: SODIUM CHLORIDE 0.9% 1,000 ML IV SCH (23:07)
--- NOTE | 2020-05-21 04:12 | PCN ---
PROCEDURE NOTE OPERATIVE REPORT: Placement of a left radial arterial line. PREOPERATIVE DIAGNOSIS: Hypotension, bowel obstruction, end-stage renal disease, and urinary tract infection. POSTOPERATIVE DIAGNOSIS: Hypotension, bowel obstruction, end-stage renal disease, and urinary tract infection. ANESTHESIA USED: None deployed. PROCEDURE: The patient was placed in a supine position, the left wrist was prepared in a sterile fashion and drapes were applied. The left radial artery was palpated, cannulated, and a guidewire was placed. A Cook catheter was inserted over the guidewire, and the guidewire was removed. Good blood flow and good waveform noted. No evidence of any immediate complications. MMODL / IJN: [id number] /
[2020-05-21 04:45] LABS: Basophils % (A) 0 %; Eosinophils % (A) 1 %; HCT 33.4 % (34.0-46.0); HGB 9.9 gm/dL (11.4-16.0); Hypochromasia Moderate; Lymphocytes % (A) 12 %; MCH 36.4 pg (25.0-35.0); MCHC 29.7 g/dL (31.0-37.0); MCV 122.5 fL (80.0-100.0); Mean Platelet Volume 7.9; Monocytes # (A) 0.6 k/uL (0-1.0); Monocytes % (A) 7 %; Neutrophils # (A) 6.4 k/uL (1.3-7.7); Neutrophils % (A) 78 %; Platelet Count 239 k/uL (150-450); RBC 2.73 m/uL (3.80-5.40); RDW 15.9 % (11.5-15.5); WBC 8.3 k/uL (3.8-10.6)
[2020-05-21 04:49] LABS: Macrocytosis Marked
[2020-05-21 04:50] LABS: Albumin 2.7 g/dL (3.5-5.0); Calcium 8.1 mg/dL (8.4-10.2); Potassium 3.7 mmol/L (3.5-5.1); Total Bilirubin 1.7 mg/dL (0.2-1.3); Total Protein 5.3 g/dL (6.3-8.2)
[2020-05-21] MEDS: MORPHINE SULFATE 2 MG/ML SYRINGE IVP PRN ×3 (05:37→23:14)
[2020-05-21] MEDS: NOREPINEPHRINE 4 MG in SODIUM CHLORIDE 0.9% 250 ML IV SCH ×2 (05:52→21:20)
[2020-05-21 05:56] LABS: Glucose,Whole Blood 96 mg/dL (75-99)
[2020-05-21] MEDS: SODIUM CHLORIDE 0.9% 1,000 ML IV SCH ×3 (06:52→20:59)
[2020-05-21] MEDS: DORZOLAMIDE HCL 2% DROPS 10 ML BTL BOTH EYES SCH ×2 (06:53→20:57)
[2020-05-21] MEDS: BRIMONIDINE TARTRATE 0.2% DROPS 5 ML BTL BOTH EYES SCH ×2 (06:53→20:57)
--- NOTE | 2020-05-21 08:26 | P.CONS ---
History of Present Illness - Reason for Consult Consult date: 05/20/20 Elevated lactic acid Requesting physician: Elyse Owen - Chief Complaint weakenss and abd pain x few days - History of Present Illness Patient is 85-year-old female with a past medical history significant for end-stage renal disease on hemodialysis through the right subclavian permacatheter presenting to [facility] a few days ago for evaluation of dizziness and lightheadedness along with generalized weakness patient's symptom has been going on for a day or 2 before presentation to the hospital patient did have some nausea and vomiting and discomfort and some epigastric discomfort more of a dull aching pain denies having any diarrhea or constipation with this and the patient was evaluated by the ER physician, on arrival to the ER the patient was afebrile she did have elevated white count of 12.5 that has subsequently normalized to the patient did have a positive UA, ultrasound of the kidneys was medical renal disease abdominal x-ray did shows possible mechanical small bowel obstruction, patient did have a CT of abdominal pelvis completed yesterday with multiple fluid filled small bowel loops appears to be dilated correlate for previous and multiple ill-defined hypodensities scattered throughout the liver, she subsequently noticed to have hypertension for which a team was called and and the patient was transferred to the ICU p atient has been resuscitated with IV fluids and low-dose pressors she has been empirically treated with Zosyn , patient was noticed to have mildly elevated lactic acid, infectious disease was consulted for further management of antibiotic therapy, Review of Systems Positive point has been mentioned in the HPI rest of the systems are negative Past Medical History Past Medical History: Atrial Fibrillation, Coronary Artery Disease (CAD), Cancer, Heart Failure, Diabetes Mellitus, Deep Vein Thrombosis (DVT), Eye Disorder, GERD/Reflux, Hypertension, Renal Disease Additional Past Medical History / Comment(s): Macular Degeneration and glaucoma, gallstones, stage 4 kidney failure, hx Uterine & groin CA; WEARS BILAT THIGH HIGH HOSE, uses cane or walker, patient states she has "2 blood clots in right groin since 2003" family states now clot is "through the whole leg", CHF, rt hip bone and bone, dialysis since october 2019 M,W,F History of Any Multi-Drug Resistant Organisms: ESBL, 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 left hip replacement, LEFT breast biopsy, darcy filter rt leg, biopsy of right nostril, biopsy rt breast, right chest dialysis cath Past Anesthesia/Blood Transfusion Reactions: No Reported Reaction Past Psychological History: No Psychological Hx Reported Smoking Status: Former smoker Past Alcohol Use History: None Reported Additional Past Alcohol Use History / Comment(s): smoked 1 pkg from 1961 to 1971 Past Drug Use History: None Reported - Past Family History Mother Family Medical History: No Reported History Additional Family Medical History / Comment(s): Family states pt's mother " of pneumonia". Father Family Medical History: Diabetes Mellitus Medications and Allergies Home Medications Medication Instructions Recorded Confirmed Type Linagliptin [Tradjenta] 5 mg PO DAILY@1500 01/22/14 05/17/20 History Omeprazole [PriLOSEC] 20 mg PO DAILY@0700 01/22/14 05/17/20 History allopurinoL [Zyloprim] 200 mg PO DAILY@0800 01/22/14 05/17/20 History Docusate Sodium [Stool Softener] 100 mg PO BID@0900,199902/22/14 05/17/20 History Garlic 1 tab PO BID@0900,199902/22/14 05/17/20 History Brinzolamide/Brimonidine Tart 1 drop BOTH EYES BID@0700,199905/11/17 05/17/20 History [Simbrinza 1%-0.2% Eye Drops] Vit C/E/Zn/Coppr/Lutein/Zeaxan 1 cap PO BID@0900,199912/03/17 05/17/20 History [Preservision Areds 2 Softgel] Cholecalciferol (Vitamin D3) 2,000 unit PO DAILY@00 02/10/18 05/17/20 History [Vitamin D3] Wheat Dextrin [Benefiber] 1 packet PO DAILY@0800 02/10/18 05/17/20 History Midodrine [ProAmatine] 10 mg PO TID@0700,1500,2200 04/10/18 05/17/20 History Rivaroxaban [Xarelto] 10 mg PO DAILY@0800 04/10/18 05/17/20 History Metoprolol Tartrate [Lopressor] 25 mg PO DAILY@1500 06/15/18 05/17/20 History Metoprolol Tartrate [Lopressor] 50 mg PO BID@0700,2200 09/18/18 05/17/20 History Ondansetron [Zofran] 4 mg PO Q12H PRN 09/18/18 05/17/20 History Calcium Acetate [PhosLo] 1,334 mg PO TID@0800,1200,1600 05/17/20 05/17/20 History Torsemide [Demadex] 20 mg PO DAILY@0800 05/17/20 05/17/20 History traMADol HCL 50 mg PO Q6H PRN 05/17/20 05/17/20 History Allergies Allergy/AdvReac Type Severity Reaction Status Date / Time atorvastatin calcium Allergy Unknown Verified 05/17/20 10:14 [From Lipitor] codeine Allergy Unknown Verified 05/17/20 10:14 [From Tylenol-Codeine #3] adhesive tape AdvReac Intermediate Unknown Verified 05/17/20 10:14 hydrocodone AdvReac Vomiting Verified 05/17/20 10:14 Physical Exam Vitals: Vital Signs Temp Pulse Pulse Resp BP BP Pulse Ox 05/21/20 06:00 114 H 15 68/28 93 L 05/21/20 05:30 158 H 9 L 68/28 95 05/21/20 05:00 135 H 15 93/40 05/21/20 04:30 129 H 19 93/40 92 L 05/21/20 04:00 98.1 F 113 H 17 102/53 93 L 05/21/20 03:30 128 H 15 102/53 92 L 05/21/20 03:00 125 H 16 68/40 96 05/21/20 02:30 115 H 13 68/40 94 L 05/21/20 02:00 111 H 14 71/32 94 L 05/21/20 01:30 105 H 14 71/49 94 L 05/21/20 01:00 124 H 14 94 L 05/21/20 00:30 124 H 14 94 L 05/21/20 00:00 98.2 F 125 H 14 94 L 05/20/20 23:30 116 H 22 94 L 05/20/20 23:00 121 H 16 94 L 05/20/20 22:30 123 H 15 96 05/20/20 22:01 120 H 14 95 05/20/20 22:00 131 H 17 71/49 97 05/20/20 21:30 109 H 12 71/49 96 05/20/20 21:00 114 H 14 71/49 95 05/20/20 20:30 109 H 17 87/21 96 05/20/20 20:00 113 H 17 87/21 95 05/20/20 19:30 116 H 16 76/33 95 05/20/20 19:00 115 H 17 05/20/20 18:45 128 H 20 95 05/20/20 18:30 112 H 20 96 05/20/20 18:15 114 H 20 93 L 05/20/20 18:00 118 H 19 05/20/20 17:45 112 H 16 91 L 05/20/20 17:30 124 H 21 93 L 05/20/20 17:15 122 H 17 95 05/20/20 17:00 123 H 14 05/20/20 16:45 138 H 18 93 L 05/20/20 16:30 122 H 13 94 L 05/20/20 16:15 120 H 15 95 05/20/20 16:00 137 H 11 L 05/20/20 15:49 14 05/20/20 15:45 129 H 16 95 05/20/20 15:30 125 H 17 93 L 05/20/20 15:15 112 H 14 105/31 95 05/20/20 15:00 111 H 17 81/60 05/20/20 14:45 134 H 18 101/44 05/20/20 14:30 144 H 13 103/63 05/20/20 14:15 129 H 25 H 74/46 05/20/20 14:00 121 H 20 103/33 05/20/20 13:45 110 H 14 42/30 98 05/20/20 13:30 141 H 15 79/44 98 05/20/20 13:19 60 H 05/20/20 09:43 98/48 05/20/20 08:57 98 18 Intake and Output 05/20/20 05/21/20 05/21/20 22:59 06:59 14:59 Intake Total 8120.706 5595.456 100 Output Total 130 90 0 Balance 993.691 946.456 100 Intake: IV 800 800 100 NS 800 800 100 Intake, IV Titration 323.691 236.456 Amount Norepinephrine 4 mg In 223.691 136.456 Sodium Chloride 0.9% 250 ml @ 0.05 MCG/KG/MIN 14. 097 mls/hr IV .Q18H2M [facility] Rx#:[id number] Piperacillin-Tazobactam 3 100 100 .375 gm In Sodium Chloride 0.9% 100 ml @ 25 mls/hr IVPB Q12HR@0000, 1200 [facility] Rx#:[id number] Output: Gastric Drainage 100 50 Urine 30 40 0 Other: Voiding Method Indwelling Catheter Indwelling Catheter Weight 80.4 kg ABP, PAP, CO, CI - Last 8 Hours Arterial Blood Pressure 112/54 Arterial Blood Pressure 115/62 Arterial Blood Pressure 111/51 Arterial Blood Pressure 111/54 Arterial Blood Pressure 104/55 Arterial Blood Pressure 109/56 Arterial Blood Pressure 104/54 Arterial Blood Pressure 98/51 Arterial Blood Pressure 93/47 Arterial Blood Pressure 84/46 Arterial Blood Pressure 99/46 Arterial Blood Pressure 97/48 GENERAL DESCRIPTION: Elderly female lying in bed, no distress. No tachypnea or accessory muscle of respiration use. HEENT: Shows Pallor , no scleral icterus. Oral mucous membrane is dry. No pharyngeal erythema or thrush NECK: Trachea central, no thyromegaly. LUNGS: Unlabored breathing. Decreased breath sound the bases. No wheeze or crackle. HEART: S1, S2, regular rate and rhythm. No loud murmur ABDOMEN: Soft, mild distention , mild epigastric tenderness , guarding or rigidity, no organomegaly EXTREMITIES: No edema of feet. SKIN: No rash, no masses palpable. NEUROLOGICAL: The patient is awake, alert, oriented x3, mood and affect normal. Results CBC & Chem 7: 05/21/20 04:12 05/21/20 04:12 Labs: Abnormal Lab Results - Last 24 Hours (Table) 05/20/20 05/20/20 05/20/20 Range/Units 10:42 13:35 13:40 RBC (3.80-5.40) m/uL Hgb (11.4-16.0) gm/dL Hct (34.0-46.0) % MCV (80.0-100.0) fL MCH (25.0-35.0) pg MCHC (31.0-37.0) g/dL RDW (11.5-15.5) % Macrocytosis Chloride (98-107) mmol/L Carbon Dioxide 16 L (22-30) mmol/L BUN 61 H (7-17) mg/dL Creatinine 4.83 H (0.52-1.04) mg/dL Glucose 105 H (74-99) mg/dL Plasma Lactic Acid Kyle 2.1 H* (0.7-2.0) mmol/L Calcium (8.4-10.2) mg/dL Total Bilirubin (0.2-1.3) mg/dL Total Protein (6.3-8.2) g/dL Albumin (3.5-5.0) g/dL Urine Appearance Turbid H (Clear) Urine Protein 2+ H (Negative) Urine Blood Small H (Negative) Ur Leukocyte Esterase Large H (Negative) Urine RBC 100 H (0-5) /hpf Urine WBC >182 H (0-5) /hpf Urine WBC Clumps Many H (None) /hpf Urine Bacteria Many H (None) /hpf 05/21/20 05/21/20 Range/Units 04:12 04:12 RBC 2.73 L (3.80-5.40) m/uL Hgb 9.9 L (11.4-16.0) gm/dL Hct 33.4 L (34.0-46.0) % MCV 122.5 H (80.0-100.0) fL MCH 36.4 H (25.0-35.0) pg MCHC 29.7 L (31.0-37.0) g/dL RDW 15.9 H (11.5-15.5) % Macrocytosis Marked A Chloride 109 H (98-107) mmol/L Carbon Dioxide 13 L (22-30) mmol/L BUN 62 H (7-17) mg/dL Creatinine 4.82 H (0.52-1.04) mg/dL Glucose 104 H (74-99) mg/dL Plasma Lactic Acid Kyle (0.7-2.0) mmol/L Calcium 8.1 L (8.4-10.2) mg/dL Total Bilirubin 1.7 H (0.2-1.3) mg/dL Total Protein 5.3 L (6.3-8.2) g/dL Albumin 2.7 L (3.5-5.0) g/dL Urine Appearance (Clear) Urine Protein (Negative) Urine Blood (Negative) Ur Leukocyte Esterase (Negative) Urine RBC (0-5) /hpf Urine WBC (0-5) /hpf Urine WBC Clumps (None) /hpf Urine Bacteria (None) /hpf Microbiology - Last 24 Hours (Table) 05/20/20 13:35 Urine Culture - Preliminary Urine,Clean Catch Assessment and Plan Assessment: 1-patient presented to the hospital with nausea vomiting some abdominal discomfort did have elevated white count and evidence of bowel ileus and did have mildly elevated white count and lactic acid will need to cover for the enteric gram-negative to the likely pathogen 2-positive UA and concern for possible enteric gram-negative enteric infection (1) Urinary tract infection Current Visit: Yes Status: Acute Code(s): N39.0 - URINARY TRACT INFECTION, SITE NOT SPECIFIED SNOMED Code(s): 98160367 (2) Elevated lactic acid level Current Visit: Yes Status: Acute Code(s): R79.89 - OTHER SPECIFIED ABNORMAL FINDINGS OF BLOOD CHEMISTRY SNOMED Code(s): 8221609 Plan: 1- on Zosyn 3.375 g every 12 hours 2-gentle IV fluid We will follow on clinical condition and cultures to further adjust medication if needed Thank you for this consultation will follow this patient with you Time with Patient: Greater than 30
[2020-05-21] MEDS ORDERED: METOPROLOL TARTRATE 12.5 MG TAB PO SCH (09:45)
[2020-05-21] MEDS: TORSEMIDE 20 MG TAB PO SCH (11:18)
[2020-05-21] MEDS: RIVAROXABAN 10 MG TAB PO SCH (11:18)
[2020-05-21] MEDS: CALCIUM ACETATE 667 MG TAB PO SCH ×3 (11:18→17:59)
[2020-05-21 11:55] LABS: Glucose,Whole Blood 79 mg/dL (75-99)
[2020-05-21] MEDS: DILTIAZEM 125 MG in SODIUM CHLORIDE 0.9% 100 ML IV SCH ×2 (12:02→23:20)
--- NOTE | 2020-05-21 12:09 | P.PN ---
Subjective This is a pleasant 85-year-old female past medical history significant for chronic persistent atrial fibrillation on long-term anticoagulation with Xarelto, end-stage renal disease on hemodialysis and chronic systolic heart failure. She follows my office with Dr. May. She is currently being treated for a partial mechanical small bowel obstruction. She was transferred to the intensive care unit yesterday secondary to hypotension. Currently maintained on aminophylline infusion. She is seen and examined resting comfortably laying flat in bed in no acute distress. She states she did not sleep all night and overall does not feel good at all. She denies chest pain, dizziness or palpitations. Telemetry tracings indicate atrial fibrillation with variable ventricular rates up to 150. Currently maintaining around 120. Current blood pressure 112/54 per arterial line. Laboratory data reviewed, WBC 8.3, hgb 9.9, platelets 239, sodium 140, potassium 3.7, creatinine 4.82. GENERAL: Well-appearing, well-nourished and in no acute distress. NECK: Supple without JVD or thyromegaly. LUNGS: Breath sounds clear to auscultation bilaterally. Respiration equal and unlabored. No wheezes, rales or rhonchi. HEART: Irregular rate and rhythm with systolic ejection murmur at the base, no rubs or gallops. S1 and S2 heard. EXTREMITIES: Normal range of motion, trace bilateral lower extremity edema. No clubbing or cyanosis. Peripheral pulses intact. ASSESSMENT Chronic persistent atrial fibrillation with variable ventricular rates Hypotension requiring levophed Partial mechanical small bowel obstruction, NG tube in place End stage renal disease on hemodialysis Aortic stenosis PLAN We recommend using a small dose of beta vilma. Arteral line pressures are greater than 100 systolic with a good waveform. If beta blockers don't help her heart rates consider IV infusion. Further recommendations to follow. Nurse Practitioner note has been reviewed, I agree with a documented findings and plan of care. Patient was seen and examined. Objective - Vital Signs Vital signs: Vital Signs Temp 98.1 F 05/21/20 04:00 Pulse 114 H 05/21/20 06:00 Resp 15 05/21/20 06:00 BP 68/28 05/21/20 06:00 Pulse Ox 93 L 05/21/20 06:00 Intake & Output 05/20/20 05/21/20 05/21/20 18:59 06:59 18:59 Intake Total 219.917 3644.917 100 Output Total 20 200 0 Balance 288.303 9139.917 100 Weight 80.4 kg Intake: IV 500 1200 100 NS 500 1200 100 Intake, IV Titration 173.539 416.917 Amount Norepinephrine 4 mg In 73.539 316.917 Sodium Chloride 0.9% 250 ml @ 0.05 MCG/KG/MIN 14. 097 mls/hr IV .Q18H2M [facility] Rx#:[id number] Piperacillin-Tazobactam 3 100 100 .375 gm In Sodium Chloride 0.9% 100 ml @ 25 mls/hr IVPB Q12HR@0000, 1200 [facility] Rx#:[id number] Output: Gastric Drainage 150 Urine 20 50 0 Other: Voiding Method Toilet Indwelling Catheter Bedpan ABP, PAP, CO, CI - Last Documented Arterial Blood Pressure 112/54 - Labs CBC & Chem 7: 05/21/20 04:12 05/21/20 04:12 Labs: Abnormal Lab Results - Last 24 Hours (Table) 05/20/20 05/20/20 05/21/20 Range/Units 13:35 13:40 04:12 RBC 2.73 L (3.80-5.40) m/uL Hgb 9.9 L (11.4-16.0) gm/dL Hct 33.4 L (34.0-46.0) % MCV 122.5 H (80.0-100.0) fL MCH 36.4 H (25.0-35.0) pg MCHC 29.7 L (31.0-37.0) g/dL RDW 15.9 H (11.5-15.5) % Macrocytosis Marked A Chloride (98-107) mmol/L Carbon Dioxide 16 L (22-30) mmol/L BUN 61 H (7-17) mg/dL Creatinine 4.83 H (0.52-1.04) mg/dL Glucose 105 H (74-99) mg/dL Calcium (8.4-10.2) mg/dL Total Bilirubin (0.2-1.3) mg/dL Total Protein (6.3-8.2) g/dL Albumin (3.5-5.0) g/dL Urine Appearance Turbid H (Clear) Urine Protein 2+ H (Negative) Urine Blood Small H (Negative) Ur Leukocyte Esterase Large H (Negative) Urine RBC 100 H (0-5) /hpf Urine WBC >182 H (0-5) /hpf Urine WBC Clumps Many H (None) /hpf Urine Bacteria Many H (None) /hpf 05/21/20 Range/Units 04:12 RBC (3.80-5.40) m/uL Hgb (11.4-16.0) gm/dL Hct (34.0-46.0) % MCV (80.0-100.0) fL MCH (25.0-35.0) pg MCHC (31.0-37.0) g/dL RDW (11.5-15.5) % Macrocytosis Chloride 109 H (98-107) mmol/L Carbon Dioxide 13 L (22-30) mmol/L BUN 62 H (7-17) mg/dL Creatinine 4.82 H (0.52-1.04) mg/dL Glucose 104 H (74-99) mg/dL Calcium 8.1 L (8.4-10.2) mg/dL Total Bilirubin 1.7 H (0.2-1.3) mg/dL Total Protein 5.3 L (6.3-8.2) g/dL Albumin 2.7 L (3.5-5.0) g/dL Urine Appearance (Clear) Urine Protein (Negative) Urine Blood (Negative) Ur Leukocyte Esterase (Negative) Urine RBC (0-5) /hpf Urine WBC (0-5) /hpf Urine WBC Clumps (None) /hpf Urine Bacteria (None) /hpf Microbiology - Last 24 Hours (Table) 05/20/20 13:35 Urine Culture - Preliminary Urine,Clean Catch
[2020-05-21] MEDS: PIPERACILLIN-TAZOBACTAM 3.375 GM in SODIUM CHLORIDE 0.9% 100 ML IVPB SCH ×2 (12:30→23:23)
--- NOTE | 2020-05-21 13:01 | PN ---
PROGRESS NOTE Patient is seen for followup for end-stage renal disease. She was transferred to the ICU yesterday secondary to ongoing hypotension. Currently, she is maintained on Levophed; however, the dose of Levophed is currently decreasing. The patient is maintained on an NG tube as well. PHYSICAL EXAMINATION: On examination today, blood pressure was 93/40, heart rate 129 per minute. Patient is afebrile. Examination of the heart S1, S2. Examination of the lungs, bilateral breath sounds are heard. Abdomen is soft, nontender. Examination of the lower extremities shows trace edema bilaterally. [employer] exam grossly intact. Patient is moving all 4 extremities. LABS: Show sodium 140, potassium 3.7, chloride 109, CO2 is 13, BUN 62, serum creatinine 4.82. ASSESSMENT: 1. End-stage renal disease, on hemodialysis on a Monday, Monday, Monday schedule. Patient was not dialyzed yesterday secondary to hypotension. 2. Metabolic acidosis secondary to ongoing hypotension, possible lactic acidosis. Patient has GI fluid loss. However, an NG tube from the stomach would result more of metabolic alkalosis unless the tube is further down into the intestine. We will correct the acidosis with dialysis. 3. Hypotension from sepsis. Source likely urinary tract infection. 4. Atrial fibrillation with RVR, maintained on Cardizem. PLAN: Hemodialysis today. No ultrafiltration. Okay to continue with IV fluids. Hold phosphate binders until patient is eating. Repeat labs in a.m. Bowel obstruction currently with NG tube being followed by Surgery. MMODL / IJN: [id number] /
--- NOTE | 2020-05-21 14:15 | P.PN ---
Subjective Progress Note Date: 05/21/20 Principal diagnosis: Ileus Patient remains in the ICU. She is tachycardic. Plans are to start Cardizem. Still on pressors. Had dialysis today. Complaining of bilateral hip pain. Denies abdominal pain. Nasogastric output decreased. Urine from last night again shows possible UTI. She is afebrile. Objective - Vital Signs Vital signs: Vital Signs Temp 98.1 F 05/21/20 04:00 Pulse 114 H 05/21/20 06:00 Resp 15 05/21/20 06:00 BP 68/28 05/21/20 06:00 Pulse Ox 93 L 05/21/20 06:00 Intake & Output 05/20/20 05/21/20 05/21/20 18:59 06:59 18:59 Intake Total 753.824 4155.917 100 Output Total 20 200 0 Balance 713.726 6770.917 100 Weight 80.4 kg Intake: IV 500 1200 100 NS 500 1200 100 Intake, IV Titration 173.539 416.917 Amount Norepinephrine 4 mg In 73.539 316.917 Sodium Chloride 0.9% 250 ml @ 0.05 MCG/KG/MIN 14. 097 mls/hr IV .Q18H2M [facility] Rx#:[id number] Piperacillin-Tazobactam 3 100 100 .375 gm In Sodium Chloride 0.9% 100 ml @ 25 mls/hr IVPB Q12HR@0000, 1200 [facility] Rx#:[id number] Output: Gastric Drainage 150 Urine 20 50 0 Other: Voiding Method Toilet Indwelling Catheter Bedpan ABP, PAP, CO, CI - Last Documented Arterial Blood Pressure 112/54 - Exam Abdomen: Soft, nondistended, minimal diffuse tenderness - Labs CBC & Chem 7: 05/21/20 04:12 05/21/20 04:12 Labs: Abnormal Lab Results - Last 24 Hours (Table) 05/20/20 05/20/20 05/21/20 Range/Units 13:35 13:40 04:12 RBC 2.73 L (3.80-5.40) m/uL Hgb 9.9 L (11.4-16.0) gm/dL Hct 33.4 L (34.0-46.0) % MCV 122.5 H (80.0-100.0) fL MCH 36.4 H (25.0-35.0) pg MCHC 29.7 L (31.0-37.0) g/dL RDW 15.9 H (11.5-15.5) % Macrocytosis Marked A Chloride (98-107) mmol/L Carbon Dioxide 16 L (22-30) mmol/L BUN 61 H (7-17) mg/dL Creatinine 4.83 H (0.52-1.04) mg/dL Glucose 105 H (74-99) mg/dL Calcium (8.4-10.2) mg/dL Total Bilirubin (0.2-1.3) mg/dL Total Protein (6.3-8.2) g/dL Albumin (3.5-5.0) g/dL Urine Appearance Turbid H (Clear) Urine Protein 2+ H (Negative) Urine Blood Small H (Negative) Ur Leukocyte Esterase Large H (Negative) Urine RBC 100 H (0-5) /hpf Urine WBC >182 H (0-5) /hpf Urine WBC Clumps Many H (None) /hpf Urine Bacteria Many H (None) /hpf 10/15/20 Range/Units 04:12 RBC (3.80-5.40) m/uL Hgb (11.4-16.0) gm/dL Hct (34.0-46.0) % MCV (80.0-100.0) fL MCH (25.0-35.0) pg MCHC (31.0-37.0) g/dL RDW (11.5-15.5) % Macrocytosis Chloride 109 H (98-107) mmol/L Carbon Dioxide 13 L (22-30) mmol/L BUN 62 H (7-17) mg/dL Creatinine 4.82 H (0.52-1.04) mg/dL Glucose 104 H (74-99) mg/dL Calcium 8.1 L (8.4-10.2) mg/dL Total Bilirubin 1.7 H (0.2-1.3) mg/dL Total Protein 5.3 L (6.3-8.2) g/dL Albumin 2.7 L (3.5-5.0) g/dL Urine Appearance (Clear) Urine Protein (Negative) Urine Blood (Negative) Ur Leukocyte Esterase (Negative) Urine RBC (0-5) /hpf Urine WBC (0-5) /hpf Urine WBC Clumps (None) /hpf Urine Bacteria (None) /hpf Microbiology - Last 24 Hours (Table) 05/20/20 13:35 Urine Culture - Preliminary Urine,Clean Catch Assessment and Plan (1) Ileus Narrative/Plan: Continue conservative management with bowel rest and gastric decompression. Continue antibiotics for possible UTI. Gentle hydration and wean pressors as able. Will follow. Current Visit: Yes Status: Acute Code(s): K56.7 - ILEUS, UNSPECIFIED SNOMED Code(s): 786168533
--- NOTE | 2020-05-21 14:53 | XR ---
EXAMINATION TYPE: XR chest 1V portable DATE OF EXAM: 05/21/2020 CLINICAL HISTORY: Line placement TECHNIQUE: Portable supine view of the chest COMPARISON: 05/18/2020 chest radiograph FINDINGS: Left-sided subclavian central venous catheter distal tip over the cavoatrial junction. Rig ht-sided internal jugular hemodialysis catheter tip over the cavoatrial junction. Enteric tube distal tip and side-port coiled over the left upper quadrant over the projected area of the gastric fundus. No pneumothorax. The cardiomediastinal silhouette is within normal limits for size. Pulmonary vascul ature is normal. Bilateral subsegmental atelectasis versus scarring. There is no focal air space opac ity or pleural effusion. IMPRESSION: Left subclavian central venous catheter distal tip over the cavoatrial junction. No pneumothorax.
[2020-05-21] MEDS ORDERED: TERBUTALINE FOR EXTRAVASATION 1 MG/ML VIAL SQ STA (16:23)
--- NOTE | 2020-05-21 16:25 | P.PN ---
Subjective Progress Note Date: 05/21/20 Principal diagnosis: Acute ileus, end-stage renal disease, atrial fibrillation with RVR. This is a very pleasant 85-year-old female patient who follows with Dr. Owen as her primary care provider. She has history of atrial fibrillation anticoagulated with Xarelto, poor vision, hypertension, diabetes mellitus, coronary artery disease, congestive heart failure, DVT, end-stage renal disease and on hemodialysis Monday since October 2019. She is a lifelong nonsmoker. She presented here on 05/16/2020 with complaints of abdominal discomfort and nausea and vomiting, poor appetite. She has been compliant with her dialysis treatments. CAT scan of the abdomen and pelvis revealed multiple fluid-filled small bowel loops. The appeared dilated.: Contains fluid and some fecal debris. Correlate for ileus. Partial small bowel obstruction not identified. Previous surgical changes with anastomosis appear chronic. Multiple ill-defined hypodensities scattered throughout the liver which appeared to have increased compared to 2017. She has been seen and evaluated by surgical services. Nasogastric tube has been placed. See well on the regular medical floor she developed hypotension and an A was called. She been transferred to the intensive care unit where consulted for the same. She has received 1-1/2 L of fluid resuscitation. She is initiated on norepinephrine currently at 0.16 mcg/kg/m. Blood cultures and urine cultures are pending. Right upper extremity midline placed. She remains awake and alert in no acute distress. Maintaining O2 saturations in the 90s on room air. She is in A. fib with RVR. She has been initiated on Zosyn. Reevaluated today on 05/21/20, patient remains in the ICU, remains on norepinephrine at 0.13 mcg/kg/m, IV fluid is at 100 mL/h, patient is on room air with O2 saturation of 95%. Cardizem was added today for her atrial fibrillation with RVR, and she is in atrial fibrillation with a rate of 144. Cardiology recommended oral metoprolol, however the patient has a nasogastric tube, and it is on continuous suction, patient lost her midline today, and I had to place a right subclavian central line for norepinephrine drip. Patient denies any shortness of breath, no cough, no wheezing, her abdominal pain and discomfort seems to be improved and better compared to the last 24 hours, nasogastric tube remains on suction. Patient is afebrile, urinalysis is showing evidence of hematuria and bacteriuria as well as pyuria. Will empirically place the patient on antibiotics in the form of Zosyn for now. Urine culture is pending. Objective - Vital Signs Vital signs: Vital Signs Temp 98.1 F 05/21/20 04:00 Pulse 130 H 05/21/20 14:14 Resp 18 05/21/20 14:14 BP 101/46 05/21/20 14:14 Pulse Ox 93 L 05/21/20 06:00 Intake & Output 05/20/20 05/21/20 05/21/20 18:59 06:59 18:59 Intake Total 032.039 0190.917 100 Output Total 20 200 0 Balance 700.059 5224.917 100 Weight 80.4 kg Intake: IV 500 1200 100 NS 500 1200 100 Intake, IV Titration 173.539 416.917 Amount Norepinephrine 4 mg In 73.539 316.917 Sodium Chloride 0.9% 250 ml @ 0.05 MCG/KG/MIN 14. 097 mls/hr IV .Q18H2M [facility] Rx#:[id number] Piperacillin-Tazobactam 3 100 100 .375 gm In Sodium Chloride 0.9% 100 ml @ 25 mls/hr IVPB Q12HR@0000, 1200 [facility] Rx#:[id number] Output: Gastric Drainage 150 Urine 20 50 0 Hemodialysis 0 Other: Voiding Method Toilet Indwelling Catheter Bedpan ABP, PAP, CO, CI - Last Documented Arterial Blood Pressure 112/54 - Exam GENERAL EXAM: Alert, pleasant 85-year-old female patient, on room air, comfortable in no apparent distress. Head: Atraumatic, normocephalic. HEENT: Head is atraumatic, normocephalic, right IJ dialysis catheter is noted, no neck masses, no JVD, no stridor, no thyromegaly. Nasogastric tube in place on suction. CHEST: No chest wall deformity. Symmetrical chest expansion. LUNGS: Clear throughout no crackles or rhonchi or wheezes.. CVS: Irregular irregular rhythm, tachycardic, no S3 gallop. ABDOMEN: Soft nontender no megaly no rebound, nasogastric tube remains in place. SPINE: No scoliosis or deformity SKIN: No rashes CENTRAL NERVOUS SYSTEM: Alert and oriented 3. No focal deficits, tone is normal in all 4 extremities. EXTREMITIES: There is no peripheral edema. No clubbing, no cyanosis. Peripheral pulses are intact. - Labs CBC & Chem 7: 05/21/20 04:12 05/21/20 04:12 Labs: Abnormal Lab Results - Last 24 Hours (Table) 05/21/20 05/21/20 Range/Units 04:12 04:12 RBC 2.73 L (3.80-5.40) m/uL Hgb 9.9 L (11.4-16.0) gm/dL Hct 33.4 L (34.0-46.0) % MCV 122.5 H (80.0-100.0) fL MCH 36.4 H (25.0-35.0) pg MCHC 29.7 L (31.0-37.0) g/dL RDW 15.9 H (11.5-15.5) % Macrocytosis Marked A Chloride 109 H (98-107) mmol/L Carbon Dioxide 13 L (22-30) mmol/L BUN 62 H (7-17) mg/dL Creatinine 4.82 H (0.52-1.04) mg/dL Glucose 104 H (74-99) mg/dL Calcium 8.1 L (8.4-10.2) mg/dL Total Bilirubin 1.7 H (0.2-1.3) mg/dL Total Protein 5.3 L (6.3-8.2) g/dL Albumin 2.7 L (3.5-5.0) g/dL Microbiology - Last 24 Hours (Table) 05/20/20 13:45 Blood Culture - Preliminary Blood No Growth after 24 hours 05/20/20 13:35 Urine Culture - Preliminary Urine,Clean Catch Assessment and Plan Assessment: Impression: Acute abdominal pain secondary to ileus, history of previous bowel resection. Hypovolemic hypotension, possible sepsis Acute urinary tract infection. Atrial fibrillation with RVR. History of hypertension. Chronic renal failure/end-stage renal disease on hemodialysis. History of valvular heart disease. History of pulmonary hypertension. History of deep vein thromboses and previous Toyin filter placement History of GERD Recommendation: Continue to monitor the patient in the ICU. Continue hemodialysis. Continue norepinephrine and Cardizem Continue nasogastric tube to suction. Keep patient nothing by mouth for now. Being followed by surgery regarding her ileus. Continue Zosyn empirically until the final cultures are available. We'll continue to follow. Patient is DO NOT RESUSCITATE. Time with Patient: Less than 30
--- NOTE | 2020-05-21 17:01 | P.PN ---
Subjective Progress Note Date: 05/21/20 Trina Carrillo, is an 85-year-old female who presented to [facility] emergency room with a chief complaint of dizziness and lightheadedness and generalized weakness, patient has a known history of end-stage renal disease on hemodialysis Monday and Monday, chronic systolic congestive heart failure, chronic atrial fibrillation, pulmonary hypertension, and valvular heart disease with aortic stenosis and severe tricuspid regurgitation, severe mitral regurgitation. Patient stated that her symptoms started when she returned from hemodialysis on Monday she also started developing some nausea and vomiting. She was also complaining of some episodes of chest pain and she decided to come to emergency room. patient was evaluated in emergency room her vital examination on presentat ion reveals a temperature of 98 pulse 52 respiration 20 blood pressure 94/63 pulse ox 98% on room air, laboratory data was significant for slightly elevated white blood count of 12.5 hemoglobin 10.4 and platelet count of 191 sodium was 132 potassium 3.5 chloride 92 BUN 25 creatinine 3.34 glucose 125 normal liver enzymes with slightly elevated alkaline phosphatase and normal lipase, EKG done in the emergency room revealed atrial fibrillation with nonspecific ST and T wave abnormalities, patient was admitted to telemetry floor for further evaluation and treatment echocardiogram and carotid Doppler were ordered, cardiology consultation and nephrology consultation were requested. Patient was seen and examined on the telemetry floor, she is complaining of nausea, and generalized weakness, and dizziness otherwise she denies any complaints at this time there is no fever or chills, no headache no chest pain no shortness of breath no cough no vomiting no diarrhea no blood in the stools no burning with urination no frequency or urgency and no hematuria. On 05/18/2020 patient was seen and examined on the medical floor she is alert and oriented 3 in no apparent distress, she is complaining of nausea and occasional vomiting there is no fever or chills no headache or dizziness, no chest pain no shortness of breath no cough there is mild discomfort in the abdomen no diarrhea no blood in the stools no burning with urination no frequency or urgency and no hematuria. Abdomen x-ray is showing evidence of partial small bowel obstruction at this time patient will be kept nothing by mouth consultation for Dr. Vuong was initiated patient is well known to him he operated on her abdomen in the past. n 05/19/2020 patient was seen and examined on the medical floor she is alert and oriented 3 in no distress at this time she has NG tube in to suction she is feeling better with less abdominal pain otherwise she denies any complaints there is no fever or chills no headache or dizziness no chest pain no shortness of breath no cough no nausea or vomiting no burning with urination no frequency or urgency and no hematuria On 05/20/2020 patient is alert and oriented 3. Patient having low blood pressure and elevated heart rate. Patient has been ordered to transfer to the ICU. ICU nurse currently at bedside and midline has been placed. Critical care doctor Jen has ordered patient to be started on Levophed for pressure support at this time. Lactic acid did come back slightly elevated at 2.1. Blood cultures have been ordered Dr. Berman has been consulted. Blood pressure has im proved to 120s. Patient remains with NG tube dissection surgery is following. Per nephrology plans for hemodialysis today due to low blood pressure. Patient will be transferred to the intensive care unit for closer monitoring critical care and infectious disease consult placed at this time patient is alert and oriented. Patient reports that she did feel out of it when her pressure was low but has improved. Patient denies any chest pain or shortness of breath. Patient denies nausea vomiting or diarrhea. Patient denies any urinary burning or frequency. Per urology services also consulted and patient started on Zosyn. On 05/21/2020 patient was seen and examined in the ICU she is alert and oriented 3 in no apparent distress she is receiving hemodialysis at this time, NG tube is in to suction, she is complaining of pain in her hips otherwise she denies any complaints there is no fever or chills no headache or dizziness no chest pain no shortness of breath no cough no nausea or vomiting no abdominal pain no diarrhea no blood in the stools no burning with urination no frequency or urgency and no hematuria Objective - Vital Signs Vital signs: Vital Signs Temp 98.1 F 05/21/20 04:00 Pulse 130 H 05/21/20 14:14 Resp 18 05/21/20 14:14 BP 101/46 05/21/20 14:14 Pulse Ox 93 L 05/21/20 06:00 Intake & Output 05/20/20 05/21/20 05/21/20 18:59 06:59 18:59 Intake Total 923.869 0709.917 100 Output Total 20 200 0 Balance 769.529 0964.917 100 Weight 80.4 kg Intake: IV 500 1200 100 NS 500 1200 100 Intake, IV Titration 173.539 416.917 Amount Norepinephrine 4 mg In 73.539 316.917 Sodium Chloride 0.9% 250 ml @ 0.05 MCG/KG/MIN 14. 097 mls/hr IV .Q18H2M [facility] Rx#:[id number] Piperacillin-Tazobactam 3 100 100 .375 gm In Sodium Chloride 0.9% 100 ml @ 25 mls/hr IVPB Q12HR@0000, 1200 [facility] Rx#:[id number] Output: Gastric Drainage 150 Urine 20 50 0 Hemodialysis 0 Other: Voiding Method Toilet Indwelling Catheter Bedpan ABP, PAP, CO, CI - Last Documented Arterial Blood Pressure 112/54 - Exam in general patient is alert and oriented 3 in no apparent distress HEENT head normocephalic and atraumatic Neck is supple no JVD no goiter no lymphadenopathy Chest exam reveals a few scattered crackles bilaterally no wheezing Cardiac exam reveals regular heart sounds S1 and S2 no gallops no murmurs Abdomen is soft with tenderness in the epigastric area no organomegaly no palpable masses was normal bowel sounds Extremity exam reveals 1+ edema bilaterally no cyanosis or clubbing Neurological examination reveals no gross focal deficit - Labs CBC & Chem 7: 05/21/20 04:12 05/21/20 04:12 Labs: Abnormal Lab Results - Last 24 Hours (Table) 05/21/20 05/21/20 Range/Units 04:12 04:12 RBC 2.73 L (3.80-5.40) m/uL Hgb 9.9 L (11.4-16.0) gm/dL Hct 33.4 L (34.0-46.0) % MCV 122.5 H (80.0-100.0) fL MCH 36.4 H (25.0-35.0) pg MCHC 29.7 L (31.0-37.0) g/dL RDW 15.9 H (11.5-15.5) % Macrocytosis Marked A Chloride 109 H (98-107) mmol/L Carbon Dioxide 13 L (22-30) mmol/L BUN 62 H (7-17) mg/dL Creatinine 4.82 H (0.52-1.04) mg/dL Glucose 104 H (74-99) mg/dL Calcium 8.1 L (8.4-10.2) mg/dL Total Bilirubin 1.7 H (0.2-1.3) mg/dL Total Protein 5.3 L (6.3-8.2) g/dL Albumin 2.7 L (3.5-5.0) g/dL Microbiology - Last 24 Hours (Table) 05/20/20 13:45 Blood Culture - Preliminary Blood No Growth after 24 hours 05/20/20 13:35 Urine Culture - Preliminary Urine,Clean Catch Assessment and Plan Plan: 1. Partial mechanical small bowel obstruction with symptoms of nausea vomiting and generalized weakness and dizziness, cause is unclear, will check abdomen ultrasound. Surgical surfaces are following continue NG tube for decompression per surgical services. 2. Underlying history of end-stage renal disease on hemodialysis, nephrology consultation requested 3. Underlying history of chronic systolic congestive heart failure without evidence of exacerbation at this time. 2-D echo completed showing EF of 50-55%. Cardiology services consulted 4. Underlying history of chronic persistent atrial fibrillation 5. Underlying history of pulmonary hypertension 6. Underlying history of valvular heart disease 7. underlying history of diabetes mellitus 8. Hypotension. Blood pressure dropping to the 70s. Patient received 2 IV boluses. Patient has been ordered to transfer to intensive care unit and Levophed has been ordered per critical care. 9. Elevated lactic acid. Lactic acid 2.1. Patient started on Zosyn, blood culture ordered and infectious disease data integrity consultant Patient was transferred to the intensive care unit yesterday Critical care, infectious disease, nephrology, cardiology and surgical services following Patient started on IV Zosyn and blood culture ordered Prognosis is guarded due to age and multiple underlying morbidities.
[2020-05-21 17:09] LABS: Glucose,Whole Blood 65 mg/dL (75-99)
[2020-05-21] MEDS ORDERED: DEXTROSE 50% SYRINGE 50 ML IVP ONE (18:00)
--- NOTE | 2020-05-21 19:40 | PN ---
PROGRESS NOTE DATE OF SERVICE: 05/21/2020 REASON FOR FOLLOWUP: Possible sepsis, abdominal source, and a UTI. INTERVAL HISTORY: The patient is currently afebrile. Overall not feeling that great this morning. Denies having any chest pain or cough. Complaining of mostly pain to the left upper arm. No nausea, no vomiting. Still has the NG in. No abdominal pain or diarrhea. PHYSICAL EXAMINATION: Blood pressure is 112/54 with a pulse of 140, temperature 98. She is 93% on room air. General description is an elderly female lying in bed in no distress. RESPIRATORY SYSTEM: Unlabored breathing with decreased breath sounds at the base. No wheeze. HEART: S1, S2. Regular rate and rhythm. ABDOMEN: Soft. Mildly distended. No guarding or rigidity. LABS: Hemoglobin 9.9, white count 8.3, BUN of 62, creatinine 4.82. DIAGNOSTIC IMPRESSION AND PLAN: Patient admitted to hospital with vomiting, abdominal pain and diarrhea in this patient with concern for possible small bowel ileus/obstruction. Surgery is following the patient. The patient is currently covered with Zosyn; that should cover the possible UTI. Continue with NG suction and will monitor clinical course closely. MMODL / IJN: [id number] /
[2020-05-21 20:29] LABS: Glucose,Whole Blood 123 mg/dL (75-99)
[2020-05-22] MEDS: NOREPINEPHRINE 4 MG in SODIUM CHLORIDE 0.9% 250 ML IV SCH (02:01)
--- NOTE | 2020-05-22 03:34 | PCN ---
PROCEDURE NOTE OPERATIVE REPORT: Placement of a left subclavian triple-lumen catheter. PREOPERATIVE DIAGNOSIS: Hypotension, patient is requiring pressors. POSTOPERATIVE DIAGNOSIS: Hypotension, patient is requiring pressors. ANESTHESIA USED: 2 mL of 1% lidocaine. DESCRIPTION OF THE PROCEDURE: The patient was placed in a supine/Trendelenburg position, the area of the left subclavian region was prepared in a sterile fashion and drapes were applied and 2 mL of lidocaine were injected in the infraclavicular area on the left side, then using the inferior approach, the left subclavian vein was easily cannulated, and a guidewire was placed. The area around the guidewire was dilated and triple-lumen catheter was inserted over the guidewire, and the guidewire was removed. Good blood flow was noted in the 3 different ports of the triple-lumen catheter, and there was no evidence of any immediate complications. Line was secured using 3.0 silk sutures. Chest x-ray postoperatively showed no evidence of any complications and adequate placement of the triple-lumen catheter. MMODL / IJN: [id number] /
[2020-05-22] MEDS: MORPHINE SULFATE 2 MG/ML SYRINGE IVP PRN ×3 (03:53→22:45)
[2020-05-22 06:39] LABS: Basophils % (A) 0 %; Eosinophils % (A) 0 %; HCT 28.9 % (34.0-46.0); HGB 8.7 gm/dL (11.4-16.0); Hypochromasia Moderate; Lymphocytes # (A) 0.7 k/uL (1.0-4.8); Lymphocytes % (A) 10 %; MCH 36.7 pg (25.0-35.0); MCHC 30.2 g/dL (31.0-37.0); MCV 121.4 fL (80.0-100.0); Mean Platelet Volume 7.7; Monocytes # (A) 0.5 k/uL (0-1.0); Monocytes % (A) 8 %; Neutrophils % (A) 78 %; Platelet Count 198 k/uL (150-450); RBC 2.38 m/uL (3.80-5.40); WBC 6.4 k/uL (3.8-10.6)
[2020-05-22 06:48] LABS: Albumin 2.3 g/dL (3.5-5.0); Calcium 7.6 mg/dL (8.4-10.2); Total Bilirubin 1.8 mg/dL (0.2-1.3); Total Protein 4.7 g/dL (6.3-8.2)
[2020-05-22 06:53] LABS: Potassium 2.7 mmol/L (3.5-5.1)
[2020-05-22 06:59] LABS: Macrocytosis Marked
[2020-05-22] MEDS: CALCIUM ACETATE 667 MG TAB PO SCH ×3 (07:48→15:30)
[2020-05-22] MEDS: RIVAROXABAN 10 MG TAB PO SCH (07:48)
[2020-05-22] MEDS: TORSEMIDE 20 MG TAB PO SCH (07:49)
[2020-05-22] MEDS: SODIUM CHLORIDE 0.9% 1,000 ML IV SCH ×2 (07:49→17:22)
[2020-05-22] MEDS: BRIMONIDINE TARTRATE 0.2% DROPS 5 ML BTL BOTH EYES SCH ×2 (08:48→20:24)
[2020-05-22] MEDS: DORZOLAMIDE HCL 2% DROPS 10 ML BTL BOTH EYES SCH ×2 (08:49→20:24)
[2020-05-22] MEDS: POTASSIUM CHLORIDE 20 MEQ in WATER FOR INJECTION 1 100ML.BAG IVPB SCH ×3 (08:54→15:29)
--- NOTE | 2020-05-22 10:43 | P.PN ---
Subjective Progress Note Date: 05/22/20 Trina Carrillo, is an 85-year-old female who presented to [facility] emergency room with a chief complaint of dizziness and lightheadedness and generalized weakness, patient has a known history of end-stage renal disease on hemodialysis Monday and Monday, chronic systolic congestive heart failure, chronic atrial fibrillation, pulmonary hypertension, and valvular heart disease with aortic stenosis and severe tricuspid regurgitation, severe mitral regurgitation. Patient stated that her symptoms started when she returned from hemodialysis on Monday she also started developing some nausea and vomiting. She was also complaining of some episodes of chest pain and she decided to come to emergency room. patient was evaluated in emergency room her vital examination on presentat ion reveals a temperature of 98 pulse 52 respiration 20 blood pressure 94/63 pulse ox 98% on room air, laboratory data was significant for slightly elevated white blood count of 12.5 hemoglobin 10.4 and platelet count of 191 sodium was 132 potassium 3.5 chloride 92 BUN 25 creatinine 3.34 glucose 125 normal liver enzymes with slightly elevated alkaline phosphatase and normal lipase, EKG done in the emergency room revealed atrial fibrillation with nonspecific ST and T wave abnormalities, patient was admitted to telemetry floor for further evaluation and treatment echocardiogram and carotid Doppler were ordered, cardiology consultation and nephrology consultation were requested. Patient was seen and examined on the telemetry floor, she is complaining of nausea, and generalized weakness, and dizziness otherwise she denies any complaints at this time there is no fever or chills, no headache no chest pain no shortness of breath no cough no vomiting no diarrhea no blood in the stools no burning with urination no frequency or urgency and no hematuria. On 05/18/2020 patient was seen and examined on the medical floor she is alert and oriented 3 in no apparent distress, she is complaining of nausea and occasional vomiting there is no fever or chills no headache or dizziness, no chest pain no shortness of breath no cough there is mild discomfort in the abdomen no diarrhea no blood in the stools no burning with urination no frequency or urgency and no hematuria. Abdomen x-ray is showing evidence of partial small bowel obstruction at this time patient will be kept nothing by mouth consultation for Dr. Vuong was initiated patient is well known to him he operated on her abdomen in the past. n 05/19/2020 patient was seen and examined on the medical floor she is alert and oriented 3 in no distress at this time she has NG tube in to suction she is feeling better with less abdominal pain otherwise she denies any complaints there is no fever or chills no headache or dizziness no chest pain no shortness of breath no cough no nausea or vomiting no burning with urination no frequency or urgency and no hematuria On 05/20/2020 patient is alert and oriented 3. Patient having low blood pressure and elevated heart rate. Patient has been ordered to transfer to the ICU. ICU nurse currently at bedside and midline has been placed. Critical care doctor Jen has ordered patient to be started on Levophed for pressure support at this time. Lactic acid did come back slightly elevated at 2.1. Blood cultures have been ordered Dr. Berman has been consulted. Blood pressure has imp roved to 120s. Patient remains with NG tube dissection surgery is following. Per nephrology plans for hemodialysis today due to low blood pressure. Patient will be transferred to the intensive care unit for closer monitoring critical care and infectious disease consult placed at this time patient is alert and oriented. Patient reports that she did feel out of it when her pressure was low but has improved. Patient denies any chest pain or shortness of breath. Patient denies nausea vomiting or diarrhea. Patient denies any urinary burning or frequency. Per urology services also consulted and patient started on Zosyn. On 05/21/2020 patient was seen and examined in the ICU she is alert and oriented 3 in no apparent distress she is receiving hemodialysis at this time, NG tube is in to suction, she is complaining of pain in her hips otherwise she denies any complaints there is no fever or chills no headache or dizziness no chest pain no shortness of breath no cough no nausea or vomiting no abdominal pain no diarrhea no blood in the stools no burning with urination no frequency or urgency and no hematuria On 05/22/2020 patient remains in the intensive care unit alert and oriented currently getting hemodialysis. Patient remains on Levophed for pressure support. Potassium low at 2.7 placed per protocol per nursing staff. This time patient denies chest pain or shortness breath. Patient denies nausea vomiting or diarrhea. Patient denies any urinary burning or frequency Objective - Vital Signs Vital signs: Vital Signs Temp 98.1 F 05/21/20 16:00 Pulse 102 H 05/22/20 07:00 Resp 20 05/22/20 07:00 BP 101/46 05/21/20 14:14 Pulse Ox 89 L 05/22/20 07:00 Intake & Output 05/21/20 05/22/20 05/22/20 18:59 06:59 18:59 Intake Total 1454 1623.109 200 Output Total 110 360 65 Balance 1344 1263.109 135 Weight 81.4 kg 81.4 kg Intake: IV 1200 1300 200 NS 1200 1200 200 Piperacillin-Tazobactam 3 100 .375 gm In Sodium Chloride 0.9% 100 ml @ 25 mls/hr IVPB Q12HR@0000, 1200 [facility] Rx#:[id number] Intake, IV Titration 254 323.109 Amount Diltiazem 125 mg In 125.0 Sodium Chloride 0.9% 100 ml @ 10 MG/HR 10 mls/hr IV .[id number] [facility] Rx#: [id number] Norepinephrine 4 mg In 254 198.109 Sodium Chloride 0.9% 250 ml @ 0.05 MCG/KG/MIN 14. 097 mls/hr IV .Q18H2M [facility] Rx#:[id number] Output: Urine 110 360 65 Hemodialysis 0 Other: Voiding Method Indwelling Catheter Indwelling Catheter Indwelling Catheter # Voids 1 ABP, PAP, CO, CI - Last Documented Arterial Blood Pressure 101/46 - Exam in general patient is alert and oriented 3 in no apparent distress HEENT head normocephalic and atraumatic Neck is supple no JVD no goiter no lymphadenopathy Chest exam reveals a few scattered crackles bilaterally no wheezing Cardiac exam reveals regular heart sounds S1 and S2 no gallops no murmurs Abdomen is soft with tenderness in the epigastric area no organomegaly no palpable masses was normal bowel sounds Extremity exam reveals 1+ edema bilaterally no cyanosis or clubbing Neurological examination reveals no gross focal deficit - Labs CBC & Chem 7: 05/22/20 06:15 05/22/20 06:15 Labs: Abnormal Lab Results - Last 24 Hours (Table) 05/21/20 05/21/20 05/22/20 Range/Units 17:08 20:28 06:15 RBC 2.38 L (3.80-5.40) m/uL Hgb 8.7 L (11.4-16.0) gm/dL Hct 28.9 L (34.0-46.0) % MCV 121.4 H (80.0-100.0) fL MCH 36.7 H (25.0-35.0) pg MCHC 30.2 L (31.0-37.0) g/dL RDW 16.0 H (11.5-15.5) % Lymphocytes # 0.7 L (1.0-4.8) k/uL Macrocytosis Marked A Potassium (3.5-5.1) mmol/L Carbon Dioxide (22-30) mmol/L BUN (7-17) mg/dL Creatinine (0.52-1.04) mg/dL Glucose (74-99) mg/dL POC Glucose (mg/dL) 65 L 123 H (75-99) mg/dL Calcium (8.4-10.2) mg/dL Total Bilirubin (0.2-1.3) mg/dL Total Protein (6.3-8.2) g/dL Albumin (3.5-5.0) g/dL 05/22/20 Range/Units 06:15 RBC (3.80-5.40) m/uL Hgb (11.4-16.0) gm/dL Hct (34.0-46.0) % MCV (80.0-100.0) fL MCH (25.0-35.0) pg MCHC (31.0-37.0) g/dL RDW (11.5-15.5) % Lymphocytes # (1.0-4.8) k/uL Macrocytosis Potassium 2.7 L* (3.5-5.1) mmol/L Carbon Dioxide 20 L (22-30) mmol/L BUN 29 H (7-17) mg/dL Creatinine 2.59 H (0.52-1.04) mg/dL Glucose 118 H (74-99) mg/dL POC Glucose (mg/dL) (75-99) mg/dL Calcium 7.6 L (8.4-10.2) mg/dL Total Bilirubin 1.8 H (0.2-1.3) mg/dL Total Protein 4.7 L (6.3-8.2) g/dL Albumin 2.3 L (3.5-5.0) g/dL Microbiology - Last 24 Hours (Table) 05/20/20 13:35 Urine Culture - Preliminary Urine,Clean Catch Gram Neg Bacilli 05/20/20 13:45 Blood Culture - Preliminary Blood No Growth after 24 hours Assessment and Plan Assessment: Plan: 1. Partial mechanical small bowel obstruction with symptoms of nausea vomiting and generalized weakness and dizziness, cause is unclear, will check abdomen ultrasound. Surgical surfaces are following continue NG tube for decompression per surgical services. 2. Underlying history of end-stage renal disease on hemodialysis, nephrology consultation requested 3. Underlying history of chronic systolic congestive heart failure without evidence of exacerbation at this time. 2-D echo completed showing EF of 50-55%. Cardiology services consulted 4. Underlying history of chronic persistent atrial fibrillation 5. Underlying history of pulmonary hypertension 6. Underlying history of valvular heart disease 7. underlying history of diabetes mellitus 8. Hypotension. Blood pressure dropping to the 70s. Patient received 2 IV boluses. Patient has been ordered to transfer to intensive care unit and Levophed has been ordered per critical care. 9. Elevated lactic acid. Lactic acid 2.1. Patient started on Zosyn, blood culture ordered and infectious disease cardiology consultant 10. Hypokalemia. potassium 2.7 replacement protocol Patient was transferred to the intensive care unit Critical care, infectious disease, nephrology, cardiology and surgical services following Patient started on IV Zosyn and blood culture ordered Prognosis is guarded due to age and multiple underlying morbidities. I performed an examination of the patient and discussed their management with the Nurse Practitioner. I have reviewed the Nurse Practitioner's notes and agree with the documented findings and plan of care
[2020-05-22] MEDS: PIPERACILLIN-TAZOBACTAM 3.375 GM in SODIUM CHLORIDE 0.9% 100 ML IVPB SCH ×2 (12:01→23:47)
[2020-05-22] MEDS: DILTIAZEM 125 MG in SODIUM CHLORIDE 0.9% 100 ML IV SCH (13:00)
--- NOTE | 2020-05-22 13:29 | P.PN ---
Subjective This is a pleasant 85-year-old female past medical history significant for chronic persistent atrial fibrillation on long-term anticoagulation with Xarelto, end-stage renal disease on hemodialysis and chronic systolic heart failure. She follows my office with Dr. May. She is currently being treated for a partial mechanical small bowel obstruction. She is seen and examined sitting up in bed about to start dialysis. She denies symptoms of chest pain, shortness of breath, dizziness or palpitations. She states she is feeling much better today and did get some sleep last night. Blood pressure per arterial line 101/46 with a heart rate of 102. Laboratory data reviewed, WBC 6.4, hemoglobin 8.7, platelets 198, sodium 140, potassium 2.7, creatinine 2.59. GENERAL: Well-appearing, well-nourished and in no acute distress. NECK: Supple without JVD or thyromegaly. LUNGS: Breath sounds clear to auscultation bilaterally. Respiration equal and unlabored. No wheezes, rales or rhonchi. HEART: Irregular rate and rhythm with systolic ejection murmur at the base, no rubs or gallops. S1 and S2 heard. EXTREMITIES: Normal range of motion, trace bilateral lower extremity edema. No clubbing or cyanosis. Peripheral pulses intact. ASSESSMENT Chronic persistent atrial fibrillation with variable ventricular rates Hypotension requiring levophed Partial mechanical small bowel obstruction, NG tube in place End stage renal disease on hemodialysis Aortic stenosis PLAN Given her strict nothing by mouth status her rate control has been changed to IV Cardizem. Nurse Practitioner note has been reviewed, I agree with a documented findings and plan of care. Patient was seen and examined. Objective - Vital Signs Vital signs: Vital Signs Temp 98.1 F 05/21/20 16:00 Pulse 102 H 05/22/20 07:00 Resp 20 05/22/20 07:00 BP 101/46 05/21/20 14:14 Pulse Ox 89 L 05/22/20 07:00 Intake & Output 05/21/20 05/22/20 05/22/20 18:59 06:59 18:59 Intake Total 1454 1623.109 200 Output Total 110 360 65 Balance 1344 1263.109 135 Weight 81.4 kg 81.4 kg Intake: IV 1200 1300 200 NS 1200 1200 200 Piperacillin-Tazobactam 3 100 .375 gm In Sodium Chloride 0.9% 100 ml @ 25 mls/hr IVPB Q12HR@0000, 1200 [facility] Rx#:[id number] Intake, IV Titration 254 323.109 Amount Diltiazem 125 mg In 125.0 Sodium Chloride 0.9% 100 ml @ 10 MG/HR 10 mls/hr IV .[id number] [facility] Rx#: [id number] Norepinephrine 4 mg In 254 198.109 Sodium Chloride 0.9% 250 ml @ 0.05 MCG/KG/MIN 14. 097 mls/hr IV .Q18H2M [facility] Rx#:[id number] Output: Urine 110 360 65 Hemodialysis 0 Other: Voiding Method Indwelling Catheter Indwelling Catheter Indwelling Catheter # Voids 1 ABP, PAP, CO, CI - Last Documented Arterial Blood Pressure 101/46 - Labs CBC & Chem 7: 05/22/20 06:15 05/22/20 06:15 Labs: Abnormal Lab Results - Last 24 Hours (Table) 05/21/20 05/21/20 05/22/20 Range/Units 17:08 20:28 06:15 RBC 2.38 L (3.80-5.40) m/uL Hgb 8.7 L (11.4-16.0) gm/dL Hct 28.9 L (34.0-46.0) % MCV 121.4 H (80.0-100.0) fL MCH 36.7 H (25.0-35.0) pg MCHC 30.2 L (31.0-37.0) g/dL RDW 16.0 H (11.5-15.5) % Lymphocytes # 0.7 L (1.0-4.8) k/uL Macrocytosis Marked A Potassium (3.5-5.1) mmol/L Carbon Dioxide (22-30) mmol/L BUN (7-17) mg/dL Creatinine (0.52-1.04) mg/dL Glucose (74-99) mg/dL POC Glucose (mg/dL) 65 L 123 H (75-99) mg/dL Calcium (8.4-10.2) mg/dL Total Bilirubin (0.2-1.3) mg/dL Total Protein (6.3-8.2) g/dL Albumin (3.5-5.0) g/dL 05/22/20 Range/Units 06:15 RBC (3.80-5.40) m/uL Hgb (11.4-16.0) gm/dL Hct (34.0-46.0) % MCV (80.0-100.0) fL MCH (25.0-35.0) pg MCHC (31.0-37.0) g/dL RDW (11.5-15.5) % Lymphocytes # (1.0-4.8) k/uL Macrocytosis Potassium 2.7 L* (3.5-5.1) mmol/L Carbon Dioxide 20 L (22-30) mmol/L BUN 29 H (7-17) mg/dL Creatinine 2.59 H (0.52-1.04) mg/dL Glucose 118 H (74-99) mg/dL POC Glucose (mg/dL) (75-99) mg/dL Calcium 7.6 L (8.4-10.2) mg/dL Total Bilirubin 1.8 H (0.2-1.3) mg/dL Total Protein 4.7 L (6.3-8.2) g/dL Albumin 2.3 L (3.5-5.0) g/dL Microbiology - Last 24 Hours (Table) 05/20/20 13:35 Urine Culture - Preliminary Urine,Clean Catch Gram Neg Bacilli 05/20/20 13:45 Blood Culture - Preliminary Blood No Growth after 24 hours
--- NOTE | 2020-05-22 13:34 | P.PN ---
Subjective Progress Note Date: 05/22/20 Principal diagnosis: Acute ileus, end-stage renal disease, atrial fibrillation with RVR This is a very pleasant 85-year-old female patient who follows with Dr. Owen as her primary care provider. She has history of atrial fibrillation anticoagulated with Xarelto, poor vision, hypertension, diabetes mellitus, coronary artery disease, congestive heart failure, DVT, end-stage renal disease and on hemodialysis Monday since October 2019. She is a lifelong nonsmoker. She presented here on 05/16/2020 with complaints of abdominal discomfort and nausea and vomiting, poor appetite. She has been compliant with her dialysis treatments. CAT scan of the abdomen and pelvis revealed multiple fluid-filled small bowel loops. The appeared dilated.: Contains fluid and some fecal debris. Correlate for ileus. Partial small bowel obstruction not identified. Previous surgical changes with anastomosis appear chronic. Multiple ill-defined hypodensities scattered throughout the liver which appeared to have increased compared to 2017. She has been seen and evaluated by surgical services. Nasogastric tube has been placed. See well on the regular medical floor she developed hypotension and an A was called. She been transferred to the intensive care unit where consulted for the same. She has received 1-1/2 L of fluid resuscitation. She is initiated on norepinephrine currently at 0.16 mcg/kg/m. Blood cultures and urine cultures are pending. Right upper extremity midline placed. She remains awake and alert in no acute distress. Maintaining O2 saturations in the 90s on room air. She is in A. fib with RVR. She has been initiated on Zosyn. Reevaluated today on 05/21/20, patient remains in the ICU, remains on norepinephrine at 0.13 mcg/kg/m, IV fluid is at 100 mL/h, patient is on room air with O2 saturation of 95%. Cardizem was added today for her atrial fibrillation with RVR, and she is in atrial fibrillation with a rate of 144. Cardiology recommended oral metoprolol, however the patient has a nasogastric tube, and it is on continuous suction, patient lost her midline today, and I had to place a right subclavian central line for norepinephrine drip. Patient denies any shortness of breath, no cough, no wheezing, her abdominal pain and discomfort seems to be improved and better compared to the last 24 hours, nasogastric tube remains on suction. Patient is afebrile, urinalysis is showing evidence of hematuria and bacteriuria as well as pyuria. Will empirically place the patient on antibiotics in the form of Zosyn for now. Urine culture is pending. On 05/22/2020 patient seen in follow-up in the intensive care unit, she is cu rrently having dialysis with the goal of removal of 2 L of fluid blood pressure permitting. Room air pulse ox is 89-90%. Urine culture is showing gram- negative bacilli, final cultures pending, blood culture has shown no growth thus far. Patient remains on 13 mics per minute of Levophed, 0.9 normal saline at a rate of 100 ML per hour, Cardizem infusion at 15 mg per hour, patient remains in atrial fibrillation with a rate of 123 permanent, room air pulse ox is 94%. She is on Zosyn for antibiotic coverage. She has had no fever or chills. Yesterday chest x-ray showed no pneumothorax following left subclavian central venous catheter placement. No altered mentation, patient is awake and alert, oriented 3, answering questions appropriately. Denies any worsening dyspnea, denies any chest pain, no significant cough or congestion, no abdominal pain, NG tube remains in place with scant amount of gastric drainage overnight. Today's labs have been reviewed, showing white blood cell count 6.4, hemoglobin of 8.7, sodium is 140, potassium is 2.7, chloride is 107, CO2 is 20, B1 is 29, and c reatinine is 2.59. She has had no nausea or vomiting. No diarrhea, no abdominal pain. Patient is producing urine in the order of 30-40 mL per hour. Objective - Vital Signs Vital signs: Vital Signs Temp 97.7 F 05/22/20 12:30 Pulse 140 H 05/22/20 12:30 Resp 16 05/22/20 12:30 BP 80/46 05/22/20 12:30 Pulse Ox 90 L 05/22/20 09:00 Intake & Output 05/21/20 05/22/20 05/22/20 18:59 06:59 18:59 Intake Total 1454 1623.109 240 Output Total 951 996 5868 Balance 1344 1263.109 -1980 Weight 81.4 kg 81.4 kg Intake: IV 1200 1300 240 NS 1200 1200 240 Piperacillin-Tazobactam 3 100 .375 gm In Sodium Chloride 0.9% 100 ml @ 25 mls/hr IVPB Q12HR@0000, 1200 [facility] Rx#:[id number] Intake, IV Titration 254 323.109 Amount Diltiazem 125 mg In 125.0 Sodium Chloride 0.9% 100 ml @ 10 MG/HR 10 mls/hr IV .[id number] [facility] Rx#: [id number] Norepinephrine 4 mg In 254 198.109 Sodium Chloride 0.9% 250 ml @ 0.05 MCG/KG/MIN 14. 097 mls/hr IV .Q18H2M [facility] Rx#:[id number] Output: Urine 110 360 220 Hemodialysis 0 2000 Other: Voiding Method Indwelling Catheter Indwelling Catheter Indwelling Catheter # Voids 1 ABP, PAP, CO, CI - Last Documented Arterial Blood Pressure 77/44 - Exam GENERAL EXAM: Alert, very pleasant, 85-year-old white female, on room air 94%, resting comfortably in bed, she is oriented 3, responding appropriately, she is currently having hemodialysis treatment done comfortable in no apparent distress. HEAD: Normocephalic/atraumatic. EYES: Normal reaction of pupils, equal size. Conjunctiva pink, sclera white. NOSE: Clear with pink turbinates. THROAT: No erythema or exudates. NECK: No masses, no JVD, no thyroid enlargement, no adenopathy. CHEST: No chest wall deformity. Symmetrical expansion. LUNGS: Equal air entry with no crackles, wheeze, rhonchi or dullness. CVS: Irregular rate and rhythm, normal S1 and S2, no gallops, no murmurs, no rubs ABDOMEN: Soft, nontender. No hepatosplenomegaly, normal bowel sounds, no guarding or rigidity. EXTREMITIES: No clubbing, 1+ lower extremity edema, no cyanosis, 2+ pulses and upper and lower extremities. MUSCULOSKELETAL: Muscle strength and tone normal. SPINE: No scoliosis or deformity SKIN: No rashes CENTRAL NERVOUS SYSTEM: Alert and oriented -3. No focal deficits, tone is normal in all 4 extremities. PSYCHIATRIC: Alert and oriented -3. Appropriate affect. Intact judgment and insight. - Labs CBC & Chem 7: 05/22/20 06:15 05/22/20 06:15 Labs: Abnormal Lab Results - Last 24 Hours (Table) 05/21/20 05/21/20 05/22/20 Range/Units 17:08 20:28 06:15 RBC 2.38 L (3.80-5.40) m/uL Hgb 8.7 L (11.4-16.0) gm/dL Hct 28.9 L (34.0-46.0) % MCV 121.4 H (80.0-100.0) fL MCH 36.7 H (25.0-35.0) pg MCHC 30.2 L (31.0-37.0) g/dL RDW 16.0 H (11.5-15.5) % Lymphocytes # 0.7 L (1.0-4.8) k/uL Macrocytosis Marked A Potassium (3.5-5.1) mmol/L Carbon Dioxide (22-30) mmol/L BUN (7-17) mg/dL Creatinine (0.52-1.04) mg/dL Glucose (74-99) mg/dL POC Glucose (mg/dL) 65 L 123 H (75-99) mg/dL Calcium (8.4-10.2) mg/dL Total Bilirubin (0.2-1.3) mg/dL Total Protein (6.3-8.2) g/dL Albumin (3.5-5.0) g/dL 05/22/20 Range/Units 06:15 RBC (3.80-5.40) m/uL Hgb (11.4-16.0) gm/dL Hct (34.0-46.0) % MCV (80.0-100.0) fL MCH (25.0-35.0) pg MCHC (31.0-37.0) g/dL RDW (11.5-15.5) % Lymphocytes # (1.0-4.8) k/uL Macrocytosis Potassium 2.7 L* (3.5-5.1) mmol/L Carbon Dioxide 20 L (22-30) mmol/L BUN 29 H (7-17) mg/dL Creatinine 2.59 H (0.52-1.04) mg/dL Glucose 118 H (74-99) mg/dL POC Glucose (mg/dL) (75-99) mg/dL Calcium 7.6 L (8.4-10.2) mg/dL Total Bilirubin 1.8 H (0.2-1.3) mg/dL Total Protein 4.7 L (6.3-8.2) g/dL Albumin 2.3 L (3.5-5.0) g/dL Microbiology - Last 24 Hours (Table) 05/20/20 13:35 Urine Culture - Preliminary Urine,Clean Catch Gram Neg Bacilli 05/20/20 13:45 Blood Culture - Preliminary Blood No Growth after 24 hours Assessment and Plan Plan: Assessment: #1. Acute abdominal pain secondary to ileus versus partial bowel obstruction, and the patient with a history of previous bowel resection #2. Hypovolemic hypotension in addition to septic shock related to urinary source, with the urine culture showing gram-negative bacilli #3. Acute urinary tract infection, with the urine culture showing gram-negative bacilli, fungal cultures pending, currently on Zosyn #4. A. fib with RVR, currently on Cardizem #5. History of hypertension #6. End-stage renal disease on hemodialysis #7. History of anemia heart disease #8. History of pulmonary hypertension #9. History of DVT with previous [place] filter placement #10. History of GERD Plan: We'll continue same medical treatment, patient is having hemodialysis done today, with the goal of removal of 2 L of fluid. Wean vasopressor support, patient still requiring Cardizem drip for rate control, no altered mentation, no fever, awaiting final culture of the urine, continue current antibiotics, ID s ervice is following, no significant output from the NG tube, no nausea or vomiting, no diarrhea. We'll continue close monitoring in intensive care unit. I performed a history & physical examination of the patient and discussed their management with my nurse practitioner, Ava Gaxiola. I reviewed the nurse practitioner's note and agree with the documented findings and plan of care. Lung sounds are positive for clear breath sounds. The findings and the impression was discussed with the patient. I attest to the documentation by the nurse practitioner. Time with Patient: Less than 30
[2020-05-22] MEDS: NOREPINEPHRINE 32 MG in SODIUM CHLORIDE 0.9% 218 ML IV SCH ×2 (13:50→22:52)
--- NOTE | 2020-05-22 14:37 | P.PN ---
Subjective Progress Note Date: 05/22/20 CHIEF COMPLAINT: Abdominal pain with nausea and vomiting HISTORY OF PRESENT ILLNESS: Patient remains in the ICU. She is still requiring Levophed for her hypotension. She is also On Cardizem for her A. fib RVR. She is receiving hemodialysis again today. She had about 75 yellowish output through her NG tube through the night. Her abdominal pain is showing improvement. Her abdomen is softer. She is passing gas. Denies any nausea. She's afebrile. PHYSICAL EXAM: VITAL SIGNS: Reviewed. GENERAL: Well-developed in no acute distress. HEENT: No sclera icterus. Extraocular movements grossly intact. Moist buccal mucosa. Head is atraumatic, normocephalic. ABDOMEN: is softer today. Nondistended. Mild diffuse tenderness to palpation. NG tube in place. NEUROLOGIC: Alert and oriented. Cranial nerves II through XII grossly intact. ASSESSMENT: 1. Ileus 2. Multiple ill-defined hypodensities scattered throughout the liver noted on CAT scan 3. UTI 4. Prior history of bowel obstruction with bowel resection PLAN: -Continue NG tube for decompression -Continue bowel rest -Continue Gentle hydration -Continue vasopressors -Continue antibiotics Physician Certified Prosthetist/Orthotist note has been reviewed by physician. Signing provider agrees with the documented findings, assessment, and plan of care. Objective - Vital Signs Vital signs: Vital Signs Temp 97.7 F 05/22/20 12:30 Pulse 140 H 05/22/20 12:30 Resp 16 05/22/20 12:30 BP 80/46 05/22/20 12:30 Pulse Ox 90 L 05/22/20 09:00 Intake & Output 05/21/20 05/22/20 05/22/20 18:59 06:59 18:59 Intake Total 1454 1623.109 240 Output Total 056 494 2116 Balance 1344 1263.109 -1980 Weight 81.4 kg 81.4 kg Intake: IV 1200 1300 240 NS 1200 1200 240 Piperacillin-Tazobactam 3 100 .375 gm In Sodium Chloride 0.9% 100 ml @ 25 mls/hr IVPB Q12HR@0000, 1200 [facility] Rx#:[id number] Intake, IV Titration 254 323.109 Amount Diltiazem 125 mg In 125.0 Sodium Chloride 0.9% 100 ml @ 10 MG/HR 10 mls/hr IV .[id number] [facility] Rx#: [id number] Norepinephrine 4 mg In 254 198.109 Sodium Chloride 0.9% 250 ml @ 0.05 MCG/KG/MIN 14. 097 mls/hr IV .Q18H2M [facility] Rx#:[id number] Output: Urine 110 360 220 Hemodialysis 0 2000 Other: Voiding Method Indwelling Catheter Indwelling Catheter Indwelling Catheter # Voids 1 ABP, PAP, CO, CI - Last Documented Arterial Blood Pressure 77/44 - Labs CBC & Chem 7: 05/22/20 06:15 05/22/20 06:15 Labs: Abnormal Lab Results - Last 24 Hours (Table) 05/21/20 05/21/20 05/22/20 Range/Units 17:08 20:28 06:15 RBC 2.38 L (3.80-5.40) m/uL Hgb 8.7 L (11.4-16.0) gm/dL Hct 28.9 L (34.0-46.0) % MCV 121.4 H (80.0-100.0) fL MCH 36.7 H (25.0-35.0) pg MCHC 30.2 L (31.0-37.0) g/dL RDW 16.0 H (11.5-15.5) % Lymphocytes # 0.7 L (1.0-4.8) k/uL Macrocytosis Marked A Potassium (3.5-5.1) mmol/L Carbon Dioxide (22-30) mmol/L BUN (7-17) mg/dL Creatinine (0.52-1.04) mg/dL Glucose (74-99) mg/dL POC Glucose (mg/dL) 65 L 123 H (75-99) mg/dL Calcium (8.4-10.2) mg/dL Total Bilirubin (0.2-1.3) mg/dL Total Protein (6.3-8.2) g/dL Albumin (3.5-5.0) g/dL 05/22/20 Range/Units 06:15 RBC (3.80-5.40) m/uL Hgb (11.4-16.0) gm/dL Hct (34.0-46.0) % MCV (80.0-100.0) fL MCH (25.0-35.0) pg MCHC (31.0-37.0) g/dL RDW (11.5-15.5) % Lymphocytes # (1.0-4.8) k/uL Macrocytosis Potassium 2.7 L* (3.5-5.1) mmol/L Carbon Dioxide 20 L (22-30) mmol/L BUN 29 H (7-17) mg/dL Creatinine 2.59 H (0.52-1.04) mg/dL Glucose 118 H (74-99) mg/dL POC Glucose (mg/dL) (75-99) mg/dL Calcium 7.6 L (8.4-10.2) mg/dL Total Bilirubin 1.8 H (0.2-1.3) mg/dL Total Protein 4.7 L (6.3-8.2) g/dL Albumin 2.3 L (3.5-5.0) g/dL Microbiology - Last 24 Hours (Table) 05/20/20 13:35 Urine Culture - Preliminary Urine,Clean Catch Gram Neg Bacilli 05/20/20 13:45 Blood Culture - Preliminary Blood No Growth after 24 hours
[2020-05-22] MEDS ORDERED: AMIODARONE 360 MG in DEXTROSE 5% IN WATER 200 ML IV ONE ×2 (16:12)
[2020-05-22] MEDS ORDERED: DEXTROSE 5% IN WATER 100 ML with AMIODARONE 150 MG IV ONE ×2 (16:12→23:30)
[2020-05-22 17:06] LABS: Glucose,Whole Blood 91 mg/dL (75-99)
--- NOTE | 2020-05-22 18:08 | PN ---
PROGRESS NOTE Patient is seen for followup for end-stage renal disease. She was admitted to the hospital with dizziness and lightheadedness. Patient was found to have a bowel obstruction. She was transferred to the ICU, as patient became hypotensive. She is maintained on a small dose of Levophed. Overall, there is improvement from surgical standpoint with significant decrease in the NG tube aspirate. Patient is awake, comfortable. She denies any significant complaints today. PHYSICAL EXAMINATION: On examination, blood pressure was 80/46, heart rate 114 per minute. Patient is afebrile. EXAMINATION OF THE HEART: S1 and S2. EXAMINATION OF LUNGS: Decreased breath sounds at bases. ABDOMEN: Soft, non-tender. Examination of lower extremities shows edema 2+ bilaterally. POULTRY HELPER exam is grossly intact. LABS: Labs show sodium 140, potassium 2.7, chloride 107. CO2 is 20, BUN 29, creatinine 2.59, hemoglobin 8.7 g/dL. ASSESSMENT: 1. End-stage renal disease, on hemodialysis on a Monday, Monday, Monday schedule. She tolerated dialysis fairly well today. We got about 2 liters of fluid off. 2. Bowel obstruction, currently with an NG tube, being followed by Dr. Vuong, with some improvement. 3. Atrial fibrillation with rapid ventricular response, maintained on Cardizem drip. 4. Urinary tract infection with septic shock. Urine culture growing Gram-negative bacilli, maintained on antibiotics. 5. Anemia of chronic disease. 6. History of pulmonary embolism. 7. Hypokalemia secondary to gastrointestinal fluid loss. We will replace with dialysis and IV. PLAN: Continue with antibiotics. Replace potassium. Hold off on phosphate binders until patient is eating. Repeat labs in a.m. Monitor potassium. MMODL / IJN: [id number] /
[2020-05-22 20:25] LABS: Glucose,Whole Blood 128 mg/dL (75-99)
[2020-05-22] MEDS: AMIODARONE 300 MG in DEXTROSE 5% IN WATER 250 ML IV SCH ×2 (22:50)
--- NOTE | 2020-05-22 22:58 | PN ---
PROGRESS NOTE DATE OF SERVICE: 05/22/2020 REASON FOR FOLLOW UP: 1. Small bowel ileus/abdominal infection. 2. UTI. INTERVAL HISTORY: Patient is currently afebrile. The patient is breathing comfortably. Denies having any chest pain. No shortness of breath or cough. Abdominal pain is currently controlled. Still has the NG in. No bowel movement. PHYSICAL EXAMINATION: Blood pressure 108/57, pulse of 100, temperature 98. She is 91% on 2 L nasal cannula. General description is an elderly female lying in bed in no distress. Respiratory system: Unlabored breathing, decreased breath sounds in the base, with no wheeze. Heart S1, S2. Regular rate and rhythm. Abdomen: Soft, no distention. No guarding. No rigidity. LABS: Hemoglobin is 8.7, white count 6.4, BUN of 29, creatinine is 2.59. DIAGNOSTIC IMPRESSION AND PLAN: Patient with small-bowel ileus, currently treated medically with hypertension and concern for possible sepsis along with E coli urinary tract infection. The patient is currently covered with Zosyn to continue. Family at the bedside. Questions were answered. MMODL / IJN: [id number] /
[2020-05-23] MEDS: MORPHINE SULFATE 2 MG/ML SYRINGE IVP PRN ×4 (03:15→20:57)
[2020-05-23] MEDS: BRIMONIDINE TARTRATE 0.2% DROPS 5 ML BTL BOTH EYES SCH ×2 (06:07→20:56)
[2020-05-23] MEDS: DORZOLAMIDE HCL 2% DROPS 10 ML BTL BOTH EYES SCH ×2 (06:08→20:56)
[2020-05-23 06:10] LABS: Glucose,Whole Blood 155 mg/dL (75-99)
[2020-05-23 06:33] LABS: Anisocytosis Slight; HCT 31.1 % (34.0-46.0); HGB 9.1 gm/dL (11.4-16.0); Hypochromasia Marked; MCHC 29.3 g/dL (31.0-37.0); MCV 122.6 fL (80.0-100.0); Macrocytosis Marked; Mean Platelet Volume 7.9; Platelet Count 235 k/uL (150-450); RBC 2.54 m/uL (3.80-5.40); RDW 16.3 % (11.5-15.5); WBC 6.3 k/uL (3.8-10.6)
[2020-05-23 06:44] LABS: Albumin 2.5 g/dL (3.5-5.0); Magnesium 1.8 mg/dL (1.6-2.3); Phosphorus 2.6 mg/dL (2.5-4.5); Potassium 4.2 mmol/L (3.5-5.1); Total Bilirubin 1.7 mg/dL (0.2-1.3)
[2020-05-23 06:54] LABS: Band Neutrophils % 7 %; Lymphocytes # (M) 1.39 k/uL (1.0-4.8); Monocytes # (M) 1.26 k/uL (0-1.0); Neutrophils % (M) 51 %; Nucleated Red Blood Cells 0 /100 WBC (0-0); Polychromasia Present; Target Cells Present; Total Cells Counted 100
--- NOTE | 2020-05-23 07:45 | P.PN ---
Progress Note - Text Progress Note Date: 05/23/20 The patient has had minimal output her NG tube. 1 or 50 mL overnight. She's had flatus. On exam her vital signs are stable her abdomen soft. Resolving ileus. Patient underwent a nasogastric tube removed. She'll start on clear liquids.
[2020-05-23] MEDS: CALCIUM ACETATE 667 MG TAB PO SCH ×3 (09:21→11:40)
[2020-05-23] MEDS: RIVAROXABAN 10 MG TAB PO SCH (09:22)
[2020-05-23] MEDS: TORSEMIDE 20 MG TAB PO SCH (09:27)
[2020-05-23] MEDS: NOREPINEPHRINE 32 MG in SODIUM CHLORIDE 0.9% 218 ML IV SCH (09:59)
[2020-05-23] MEDS: AMIODARONE 300 MG in DEXTROSE 5% IN WATER 250 ML IV SCH ×6 (10:00→21:03)
--- NOTE | 2020-05-23 11:20 | P.PN ---
Subjective Progress Note Date: 05/23/20 Trina Carrillo, is an 85-year-old female who presented to [facility] emergency room with a chief complaint of dizziness and lightheadedness and generalized weakness, patient has a known history of end-stage renal disease on hemodialysis Monday and Monday, chronic systolic congestive heart failure, chronic atrial fibrillation, pulmonary hypertension, and valvular heart disease with aortic stenosis and severe tricuspid regurgitation, severe mitral regurgitation. Patient stated that her symptoms started when she returned from hemodialysis on Monday she also started developing some nausea and vomiting. She was also complaining of some episodes of chest pain and she decided to come to emergency room. patient was evaluated in emergency room her vital examination on presentat ion reveals a temperature of 98 pulse 52 respiration 20 blood pressure 94/63 pulse ox 98% on room air, laboratory data was significant for slightly elevated white blood count of 12.5 hemoglobin 10.4 and platelet count of 191 sodium was 132 potassium 3.5 chloride 92 BUN 25 creatinine 3.34 glucose 125 normal liver enzymes with slightly elevated alkaline phosphatase and normal lipase, EKG done in the emergency room revealed atrial fibrillation with nonspecific ST and T wave abnormalities, patient was admitted to telemetry floor for further evaluation and treatment echocardiogram and carotid Doppler were ordered, cardiology consultation and nephrology consultation were requested. Patient was seen and examined on the telemetry floor, she is complaining of nausea, and generalized weakness, and dizziness otherwise she denies any complaints at this time there is no fever or chills, no headache no chest pain no shortness of breath no cough no vomiting no diarrhea no blood in the stools no burning with urination no frequency or urgency and no hematuria. On 05/18/2020 patient was seen and examined on the medical floor she is alert and oriented 3 in no apparent distress, she is complaining of nausea and occasional vomiting there is no fever or chills no headache or dizziness, no chest pain no shortness of breath no cough there is mild discomfort in the abdomen no diarrhea no blood in the stools no burning with urination no frequency or urgency and no hematuria. Abdomen x-ray is showing evidence of partial small bowel obstruction at this time patient will be kept nothing by mouth consultation for Dr. Vuong was initiated patient is well known to him he operated on her abdomen in the past. n 05/19/2020 patient was seen and examined on the medical floor she is alert and oriented 3 in no distress at this time she has NG tube in to suction she is feeling better with less abdominal pain otherwise she denies any complaints there is no fever or chills no headache or dizziness no chest pain no shortness of breath no cough no nausea or vomiting no burning with urination no frequency or urgency and no hematuria On 05/20/2020 patient is alert and oriented 3. Patient having low blood pressure and elevated heart rate. Patient has been ordered to transfer to the ICU. ICU nurse currently at bedside and midline has been placed. Critical care doctor Jen has ordered patient to be started on Levophed for pressure support at this time. Lactic acid did come back slightly elevated at 2.1. Blood cultures have been ordered Dr. Berman has been consulted. Blood pressure has im proved to 120s. Patient remains with NG tube dissection surgery is following. Per nephrology plans for hemodialysis today due to low blood pressure. Patient will be transferred to the intensive care unit for closer monitoring critical care and infectious disease consult placed at this time patient is alert and oriented. Patient reports that she did feel out of it when her pressure was low but has improved. Patient denies any chest pain or shortness of breath. Patient denies nausea vomiting or diarrhea. Patient denies any urinary burning or frequency. Per urology services also consulted and patient started on Zosyn. On 05/21/2020 patient was seen and examined in the ICU she is alert and oriented 3 in no apparent distress she is receiving hemodialysis at this time, NG tube is in to suction, she is complaining of pain in her hips otherwise she denies any complaints there is no fever or chills no headache or dizziness no chest pain no shortness of breath no cough no nausea or vomiting no abdominal pain no diarrhea no blood in the stools no burning with urination no frequency or urgency and no hematuria On 05/22/2020 patient remains in the intensive care unit alert and oriented currently getting hemodialysis. Patient remains on Levophed for pressure support. Potassium low at 2.7 placed per protocol per nursing staff. This time patient denies chest pain or shortness breath. Patient denies nausea vomiting or diarrhea. Patient denies any urinary burning or frequency. On 05/23/2020 patient was seen and examined in the intensive care unit, she is alert and oriented 3 in no apparent distress she is answering questions appropriately, NG tube has been removed, she states that she is passing some gas, no bowel movements, she is still complaining of some abdominal discomfort and pain otherwise she denies any complaints there is no fever or chills no headache or dizziness no chest pain no shortness of breath no cough no nausea or vomiting no diarrhea no blood in the stools no burning with urination no frequency or urgency and no hematuria Objective - Vital Signs Vital signs: Vital Signs Temp 97.9 F 05/23/20 09:00 Pulse 121 H 05/23/20 10:00 Resp 10 L 05/23/20 10:00 BP 80/46 05/22/20 12:30 Pulse Ox 94 L 05/23/20 10:00 Intake & Output 05/22/20 05/23/20 05/23/20 18:59 06:59 18:59 Intake Total 1204 1563.339 903.97 Output Total 2284 65 20 Balance -1080 1498.339 883.97 Weight 81.4 kg 91.7 kg Intake: IV 825 1300 493 Amiodarone 300 mg In 75 Dextrose 5% in Water 250 ml @ 0.5 MG/MIN 25 mls/hr IV .Q10H [facility] Rx#: [id number] Diltiazem 125 mg In 45 Sodium Chloride 0.9% 100 ml @ 10 MG/HR 10 mls/hr IV .[id number] [facility] Rx#: [id number] NS 780 1200 118 Piperacillin-Tazobactam 3 100 .375 gm In Sodium Chloride 0.9% 100 ml @ 25 mls/hr IVPB Q12HR@0000, 1200 [facility] Rx#:[id number] Sodium Chloride 0.9% 1, 300 000 ml @ 100 mls/hr IV . Q10H [facility] Rx#:[id number] Intake, IV Titration 379 263.339 360.97 Amount Amiodarone 300 mg In 250 Dextrose 5% in Water 250 ml @ 0.5 MG/MIN 25 mls/hr IV .Q10H [facility] Rx#: [id number] Diltiazem 125 mg In 125 Sodium Chloride 0.9% 100 ml @ 10 MG/HR 10 mls/hr IV .[id number] [facility] Rx#: [id number] Norepinephrine 32 mg In 263.339 110.97 Sodium Chloride 0.9% 218 ml @ 0.5 MCG/KG/MIN 19. 078 mls/hr IV .Q13H7M [facility] Rx#:[id number] Norepinephrine 4 mg In 254 Sodium Chloride 0.9% 250 ml @ 0.05 MCG/KG/MIN 14. 097 mls/hr IV .Q18H2M [facility] Rx#:[id number] Oral 50 Output: Urine 284 65 20 Hemodialysis 2000 Other: Voiding Method Indwelling Catheter Indwelling Catheter Indwelling Catheter ABP, PAP, CO, CI - Last Documented Arterial Blood Pressure 103/52 - Exam in general patient is alert and oriented 3 in no apparent distress HEENT head normocephalic and atraumatic Neck is supple no JVD no goiter no lymphadenopathy Chest exam reveals a few scattered crackles bilaterally no wheezing Cardiac exam reveals regular heart sounds S1 and S2 no gallops no murmurs Abdomen is soft with tenderness in the epigastric area no organomegaly no palpable masses was normal bowel sounds Extremity exam reveals 1+ edema bilaterally no cyanosis or clubbing Neurological examination reveals no gross focal deficit - Labs CBC & Chem 7: 05/23/20 06:05 05/23/20 06:05 Labs: Abnormal Lab Results - Last 24 Hours (Table) 05/22/20 05/23/20 05/23/20 Range/Units 20:24 06:05 06:05 RBC 2.54 L (3.80-5.40) m/uL Hgb 9.1 L (11.4-16.0) gm/dL Hct 31.1 L (34.0-46.0) % MCV 122.6 H (80.0-100.0) fL MCH 36.0 H (25.0-35.0) pg MCHC 29.3 L (31.0-37.0) g/dL RDW 16.3 H (11.5-15.5) % Monocytes # (Manual) 1.26 H (0-1.0) k/uL Macrocytosis Marked A Carbon Dioxide 18 L (22-30) mmol/L BUN 19 H (7-17) mg/dL Creatinine 2.11 H (0.52-1.04) mg/dL Glucose 149 H (74-99) mg/dL POC Glucose (mg/dL) 128 H (75-99) mg/dL Calcium 8.0 L (8.4-10.2) mg/dL Total Bilirubin 1.7 H (0.2-1.3) mg/dL Total Protein 5.0 L (6.3-8.2) g/dL Albumin 2.5 L (3.5-5.0) g/dL 05/23/20 Range/Units 06:09 RBC (3.80-5.40) m/uL Hgb (11.4-16.0) gm/dL Hct (34.0-46.0) % MCV (80.0-100.0) fL MCH (25.0-35.0) pg MCHC (31.0-37.0) g/dL RDW (11.5-15.5) % Monocytes # (Manual) (0-1.0) k/uL Macrocytosis Carbon Dioxide (22-30) mmol/L BUN (7-17) mg/dL Creatinine (0.52-1.04) mg/dL Glucose (74-99) mg/dL POC Glucose (mg/dL) 155 H (75-99) mg/dL Calcium (8.4-10.2) mg/dL Total Bilirubin (0.2-1.3) mg/dL Total Protein (6.3-8.2) g/dL Albumin (3.5-5.0) g/dL Microbiology - Last 24 Hours (Table) 05/20/20 13:35 Urine Culture - Final Urine,Clean Catch Escherichia coli 05/20/20 13:45 Blood Culture - Preliminary Blood No Growth after 48 hours Assessment and Plan Plan: 1. Partial mechanical small bowel obstruction with symptoms of nausea vomiting and generalized weakness and dizziness, cause is unclear, will check abdomen ultrasound. Surgical surfaces are following continue NG tube for decompression per surgical services. 2. Underlying history of end-stage renal disease on hemodialysis, nephrology consultation requested 3. Underlying history of chronic systolic congestive heart failure without evidence of exacerbation at this time. 2-D echo completed showing EF of 50-55%. Cardiology services consulted 4. Underlying history of chronic persistent atrial fibrillation 5. Underlying history of pulmonary hypertension 6. Underlying history of valvular heart disease 7. underlying history of diabetes mellitus 8. Hypotension. Blood pressure dropping to the 70s. Patient received 2 IV boluses. Patient has been ordered to transfer to intensive care unit and Levophed has been ordered per critical care. 9. Sepsis with Elevated lactic acid. Lactic acid 2.1. Patient started on Zosyn, blood culture ordered and infectious disease systems consultant, urinalysis is positive for urinary tract infection urine culture is positive for E. coli blood culture negative so far. 10. Hypokalemia corrected potassium today is 4.2 it was 2.7 yesterday. Patient was transferred to the intensive care unit yesterday Critical care, infectious disease, nephrology, cardiology and surgical services following Patient started on IV Zosyn and blood culture ordered Prognosis is guarded due to age and multiple underlying morbidities.
[2020-05-23] MEDS: PIPERACILLIN-TAZOBACTAM 3.375 GM in SODIUM CHLORIDE 0.9% 100 ML IVPB SCH (11:29)
[2020-05-23] MEDS: SODIUM CHLORIDE 0.9% 1,000 ML IV SCH ×3 (11:32→21:04)
[2020-05-23 11:36] LABS: Glucose,Whole Blood 151 mg/dL (75-99)
--- NOTE | 2020-05-23 12:25 | P.PN ---
Subjective Progress Note Date: 05/23/20 Principal diagnosis: This is a 85-year-old female with ESRD on dialysis Monday came in with dizziness and weakness. She was found to have small bowel obstruction urine tract infection with E. coli and possibly sepsis. She had a NG tube placed which has been discontinued. She is passing some gas but no bowel movement yet does not feel like eating. Although she is She is currently feeling better. No shortness of breath cough no fever chills no abdominal pain. She has a Erickson catheter with small amount of dark urine Objective - Vital Signs Vital signs: Vital Signs Temp 97.9 F 05/23/20 09:00 Pulse 121 H 05/23/20 10:00 Resp 10 L 05/23/20 10:00 BP 80/46 05/22/20 12:30 Pulse Ox 94 L 05/23/20 10:00 Intake & Output 05/22/20 05/23/20 05/23/20 18:59 06:59 18:59 Intake Total 1204 1563.339 903.97 Output Total 2284 65 20 Balance -1080 1498.339 883.97 Weight 81.4 kg 91.7 kg Intake: IV 825 1300 493 Amiodarone 300 mg In 75 Dextrose 5% in Water 250 ml @ 0.5 MG/MIN 25 mls/hr IV .Q10H [facility] Rx#: [id number] Diltiazem 125 mg In 45 Sodium Chloride 0.9% 100 ml @ 10 MG/HR 10 mls/hr IV .[id number] [facility] Rx#: [id number] NS 780 1200 118 Piperacillin-Tazobactam 3 100 .375 gm In Sodium Chloride 0.9% 100 ml @ 25 mls/hr IVPB Q12HR@0000, 1200 [facility] Rx#:[id number] Sodium Chloride 0.9% 1, 300 000 ml @ 100 mls/hr IV . Q10H [facility] Rx#:[id number] Intake, IV Titration 379 263.339 360.97 Amount Amiodarone 300 mg In 250 Dextrose 5% in Water 250 ml @ 0.5 MG/MIN 25 mls/hr IV .Q10H [facility] Rx#: [id number] Diltiazem 125 mg In 125 Sodium Chloride 0.9% 100 ml @ 10 MG/HR 10 mls/hr IV .[id number] [facility] Rx#: [id number] Norepinephrine 32 mg In 263.339 110.97 Sodium Chloride 0.9% 218 ml @ 0.5 MCG/KG/MIN 19. 078 mls/hr IV .Q13H7M [facility] Rx#:[id number] Norepinephrine 4 mg In 254 Sodium Chloride 0.9% 250 ml @ 0.05 MCG/KG/MIN 14. 097 mls/hr IV .Q18H2M [facility] Rx#:[id number] Oral 50 Output: Urine 284 65 20 Hemodialysis 1999 Other: Voiding Method Indwelling Catheter Indwelling Catheter Indwelling Catheter ABP, PAP, CO, CI - Last Documented Arterial Blood Pressure 103/52 On examination she is awake alert oriented She is currently on levo fed 0.48 A chin exam no JVP neck is supple no facial asymmetry Lungs clear to auscultation fair air entry bilaterally Heart sounds unremarkable no murmur rub gallop she is in atrial fibrillation Abdomen soft nontender bowel sounds are present Extremity exam was 2+ edema Neurologically awake alert oriented but weak - Labs CBC & Chem 7: 05/23/20 06:05 05/23/20 06:05 Labs: Abnormal Lab Results - Last 24 Hours (Table) 05/22/20 05/23/20 05/23/20 Range/Units 20:24 06:05 06:05 RBC 2.54 L (3.80-5.40) m/uL Hgb 9.1 L (11.4-16.0) gm/dL Hct 31.1 L (34.0-46.0) % MCV 122.6 H (80.0-100.0) fL MCH 36.0 H (25.0-35.0) pg MCHC 29.3 L (31.0-37.0) g/dL RDW 16.3 H (11.5-15.5) % Monocytes # (Manual) 1.26 H (0-1.0) k/uL Macrocytosis Marked A Carbon Dioxide 18 L (22-30) mmol/L BUN 19 H (7-17) mg/dL Creatinine 2.11 H (0.52-1.04) mg/dL Glucose 149 H (74-99) mg/dL POC Glucose (mg/dL) 128 H (75-99) mg/dL Calcium 8.0 L (8.4-10.2) mg/dL Total Bilirubin 1.7 H (0.2-1.3) mg/dL Total Protein 5.0 L (6.3-8.2) g/dL Albumin 2.5 L (3.5-5.0) g/dL 05/23/20 05/23/20 Range/Units 06:09 11:35 RBC (3.80-5.40) m/uL Hgb (11.4-16.0) gm/dL Hct (34.0-46.0) % MCV (80.0-100.0) fL MCH (25.0-35.0) pg MCHC (31.0-37.0) g/dL RDW (11.5-15.5) % Monocytes # (Manual) (0-1.0) k/uL Macrocytosis Carbon Dioxide (22-30) mmol/L BUN (7-17) mg/dL Creatinine (0.52-1.04) mg/dL Glucose (74-99) mg/dL POC Glucose (mg/dL) 155 H 151 H (75-99) mg/dL Calcium (8.4-10.2) mg/dL Total Bilirubin (0.2-1.3) mg/dL Total Protein (6.3-8.2) g/dL Albumin (3.5-5.0) g/dL Microbiology - Last 24 Hours (Table) 05/20/20 13:35 Urine Culture - Final Urine,Clean Catch Escherichia coli 05/20/20 13:45 Blood Culture - Preliminary Blood No Growth after 48 hours Assessment and Plan Assessment: Impression 1. ESRD on dialysis Monday, with a permacath 2. Admitted with weakness and dizziness. Urine tract infection with E. coli 3. Edema, secondary to multiple causes including previous history of DVT, poor nutritional state and hypoalbuminemia 4. History of mild aortic stenosis, moderate mitral regurg tricuspid regurg, pulmonary hypertension. 5. Diabetes mellitus 6. Small bowel obstruction improved 7. History of Toyin filter placement 8. Hypotension Recommendation 1. DC Erickson catheter 2. Continue antibiotics 3. Try to taper off levo fed
--- NOTE | 2020-05-23 13:32 | PN ---
PROGRESS NOTE DATE OF SERVICE: 05/23/2020 REASON FOR FOLLOWUP: Urinary tract infection and possible abdominal sepsis. INTERVAL HISTORY: The patient is currently afebrile. The patient is breathing comfortably. The patient denies having any chest pain or shortness of breath or cough. The patient's NG has been discontinued and no vomiting has been reported. PHYSICAL EXAMINATION: Her blood pressure is 104/52 with a pulse of 121, temperature 97.9. She is 94% on 2 L nasal cannula. General description is an elderly female lying in bed in no distress. Respiratory system: Unlabored breathing, decreased breath sounds at the bases, no wheeze. Heart S1, S2. Regular rate and rhythm. Abdomen soft, no tenderness. Extremities: No edema of the feet. LABS: Hemoglobin is 9.1, white count 6.2, BUN of 19, creatinine is 2.11. DIAGNOSTIC IMPRESSION AND PLAN: Patient with hypertension which is multifactorial in this patient with an ileus and concern for possible abdominal infection. The patient is currently covered with Zosyn with overall clinical improvement. Patient covered for UTI as well and will monitor clinical course closely. MMODL / IJN: [id number] /
--- NOTE | 2020-05-23 14:08 | P.PN ---
Subjective Progress Note Date: 05/23/20 Principal diagnosis: Acute ileus, end-stage renal disease, atrial fibrillation with RVR. This is a very pleasant 85-year-old female patient who follows with Dr. Owen as her primary care provider. She has history of atrial fibrillation anticoagulated with Xarelto, poor vision, hypertension, diabetes mellitus, coronary artery disease, congestive heart failure, DVT, end-stage renal disease and on hemodialysis Monday since October 2019. She is a lifelong nonsmoker. She presented here on 05/16/2020 with complaints of abdominal discomfort and nausea and vomiting, poor appetite. She has been compliant with her dialysis treatments. CAT scan of the abdomen and pelvis revealed multiple fluid-filled small bowel loops. The appeared dilated.: Contains fluid and some fecal debris. Correlate for ileus. Partial small bowel obstruction not identified. Previous surgical changes with anastomosis appear chronic. Multiple ill-defined hypodensities scattered throughout the liver which appeared to have increased compared to 2017. She has been seen and evaluated by surgical services. Nasogastric tube has been placed. See well on the regular medical floor she developed hypotension and an A was called. She been transferred to the intensive care unit where consulted for the same. She has received 1-1/2 L of fluid resuscitation. She is initiated on norepinephrine currently at 0.16 mcg/kg/m. Blood cultures and urine cultures are pending. Right upper extremity midline placed. She remains awake and alert in no acute distress. Maintaining O2 saturations in the 90s on room air. She is in A. fib with RVR. She has been initiated on Zosyn. Reevaluated today on 05/21/20, patient remains in the ICU, remains on norepinephrine at 0.13 mcg/kg/m, IV fluid is at 100 mL/h, patient is on room air with O2 saturation of 95%. Cardizem was added today for her atrial fibrillation with RVR, and she is in atrial fibrillation with a rate of 144. Cardiology recommended oral metoprolol, however the patient has a nasogastric tube, and it is on continuous suction, patient lost her midline today, and I had to place a right subclavian central line for norepinephrine drip. Patient denies any shortness of breath, no cough, no wheezing, her abdominal pain and discomfort seems to be improved and better compared to the last 24 hours, nasogastric tube remains on suction. Patient is afebrile, urinalysis is showing evidence of hematuria and bacteriuria as well as pyuria. Will empirically place the patient on antibiotics in the form of Zosyn for now. Urine culture is pending. Patient was reevaluated today on 05/23/20, remains in the ICU, requiring nor epinephrine, she is now on norepinephrine at 0.48 mcg/kg/m, she is on 2 L nasal cannula with O2 saturation of 93%, patient was also placed on amiodarone as per cardiology for atrial fibrillation with RVR, presently on an amiodarone drip. Her nasogastric tube was discontinued by surgery patient remains on dialysis on Monday, and she seems to be comfortable, and in no distress. Labs today showed average Of 6.3 hemoglobin is 9.1. Elective lites are normal. Bicarb is 18 BUN is 19 and creatinine is 2.11. Remains on antibiotics empirically. Urine culture is positive for E. coli. Sensitive to all antibiotics. Hence we will treat the patient with Rocephin and discontinue Zos yn. Objective - Vital Signs Vital signs: Vital Signs Temp 98.7 F 05/23/20 12:00 Pulse 126 H 05/23/20 12:00 Resp 13 05/23/20 12:00 BP 80/46 05/22/20 12:30 Pulse Ox 94 L 05/23/20 12:00 Intake & Output 05/22/20 05/23/20 05/23/20 18:59 06:59 18:59 Intake Total 1204 8970.203 9153.97 Output Total 2284 65 30 Balance -1080 1498.339 979.97 Weight 81.4 kg 91.7 kg Intake: IV 825 1300 599 Amiodarone 300 mg In 125 Dextrose 5% in Water 250 ml @ 0.5 MG/MIN 25 mls/hr IV .Q10H [facility] Rx#: [id number] Diltiazem 125 mg In 45 Sodium Chloride 0.9% 100 ml @ 10 MG/HR 10 mls/hr IV .[id number] [facility] Rx#: [id number] NS 780 1200 124 Piperacillin-Tazobactam 3 100 50 .375 gm In Sodium Chloride 0.9% 100 ml @ 25 mls/hr IVPB Q12HR@0000, 1200 [facility] Rx#:[id number] Sodium Chloride 0.9% 1, 300 000 ml @ 50 mls/hr IV . Q20H [facility] Rx#:[id number] Intake, IV Titration 379 263.339 360.97 Amount Amiodarone 300 mg In 250 Dextrose 5% in Water 250 ml @ 0.5 MG/MIN 25 mls/hr IV .Q10H [facility] Rx#: [id number] Diltiazem 125 mg In 125 Sodium Chloride 0.9% 100 ml @ 10 MG/HR 10 mls/hr IV .[id number] [facility] Rx#: [id number] Norepinephrine 32 mg In 263.339 110.97 Sodium Chloride 0.9% 218 ml @ 0.5 MCG/KG/MIN 19. 078 mls/hr IV .Q13H7M [facility] Rx#:[id number] Norepinephrine 4 mg In 254 Sodium Chloride 0.9% 250 ml @ 0.05 MCG/KG/MIN 14. 097 mls/hr IV .Q18H2M [facility] Rx#:[id number] Oral 50 Output: Urine 284 65 30 Hemodialysis 1999 Other: Voiding Method Indwelling Catheter Indwelling Catheter Indwelling Catheter # Voids 0 ABP, PAP, CO, CI - Last Documented Arterial Blood Pressure 101/50 - Exam GENERAL EXAM: Alert, pleasant 85-year-old female patient, comfortable in no apparent distress. On few liters nasal cannula. Head: Atraumatic, normocephalic. HEENT: Head is atraumatic, normocephalic, right IJ dialysis catheter is noted, no neck masses, no JVD, no stridor, no thyromegaly. Nasogastric tube in place on suction. CHEST: No chest wall deformity. Symmetrical chest expansion. LUNGS: Clear throughout no crackles or rhonchi or wheezes.. CVS: Irregular irregular rhythm, tachycardic, no S3 gallop. ABDOMEN: Soft nontender no megaly no rebound, her nasogastric tube has been discontinued. SPINE: No scoliosis or deformity SKIN: No rashes CENTRAL NERVOUS SYSTEM: Alert and oriented 3. No focal deficits, tone is normal in all 4 extremities. EXTREMITIES: There is 1+ bipedal edema. No clubbing, no cyanosis. Peripheral pulses are intact. - Labs CBC & Chem 7: 05/23/20 06:05 05/23/20 06:05 Labs: Abnormal Lab Results - Last 24 Hours (Table) 05/22/20 05/23/20 05/23/20 Range/Units 20:24 06:05 06:05 RBC 2.54 L (3.80-5.40) m/uL Hgb 9.1 L (11.4-16.0) gm/dL Hct 31.1 L (34.0-46.0) % MCV 122.6 H (80.0-100.0) fL MCH 36.0 H (25.0-35.0) pg MCHC 29.3 L (31.0-37.0) g/dL RDW 16.3 H (11.5-15.5) % Monocytes # (Manual) 1.26 H (0-1.0) k/uL Macrocytosis Marked A Carbon Dioxide 18 L (22-30) mmol/L BUN 19 H (7-17) mg/dL Creatinine 2.11 H (0.52-1.04) mg/dL Glucose 149 H (74-99) mg/dL POC Glucose (mg/dL) 128 H (75-99) mg/dL Calcium 8.0 L (8.4-10.2) mg/dL Total Bilirubin 1.7 H (0.2-1.3) mg/dL Total Protein 5.0 L (6.3-8.2) g/dL Albumin 2.5 L (3.5-5.0) g/dL 05/23/20 05/23/20 Range/Units 06:09 11:35 RBC (3.80-5.40) m/uL Hgb (11.4-16.0) gm/dL Hct (34.0-46.0) % MCV (80.0-100.0) fL MCH (25.0-35.0) pg MCHC (31.0-37.0) g/dL RDW (11.5-15.5) % Monocytes # (Manual) (0-1.0) k/uL Macrocytosis Carbon Dioxide (22-30) mmol/L BUN (7-17) mg/dL Creatinine (0.52-1.04) mg/dL Glucose (74-99) mg/dL POC Glucose (mg/dL) 155 H 151 H (75-99) mg/dL Calcium (8.4-10.2) mg/dL Total Bilirubin (0.2-1.3) mg/dL Total Protein (6.3-8.2) g/dL Albumin (3.5-5.0) g/dL Microbiology - Last 24 Hours (Table) 05/20/20 13:35 Urine Culture - Final Urine,Clean Catch Escherichia coli 05/20/20 13:45 Blood Culture - Preliminary Blood No Growth after 48 hours Assessment and Plan Assessment: Impression: Acute abdominal pain secondary to ileus, history of previous bowel resection. Hypovolemic hypotension, possible sepsis Acute urinary tract infection. Secondary to E. coli Atrial fibrillation with RVR. History of hypertension. Chronic renal failure/end-stage renal disease on hemodialysis. History of valvular heart disease. History of pulmonary hypertension. History of deep vein thromboses and previous [place] filter placement History of GERD Recommendation: Continue to monitor the patient in the ICU. Continue hemodialysis. Continue norepinephrine and titrate accordingly. Continue amiodarone as per cardiology on the case. Keep nothing by mouth since the nasogastric tube has been removed and patient is not having any bowel movements yet. Change Zosyn to Rocephin for E. coli urinary tract infection. We'll continue to follow. Patient is DO NOT RESUSCITATE. Time with Patient: Less than 30
--- NOTE | 2020-05-23 15:30 | P.PN ---
Subjective Progress Note Date: 05/23/20 his 85-year-old female with history of abdominal pain secondary to ileus with previous history of bowel resection, atrial fibrillation with RVR hypertension and chronic renal failure seemed to be relatively stable. Patient is still on norepinephrine Patient was initiated on IV amiodarone therapy for A. fib with RVR. Today's heart rate is fairly controlled in the range of about 80-90. Her creatinine is about 2.1. She doesn't seem to be in acute distress. She is also being treated with antibiotic for UTI We'll continue current medical therapy. We'll switch to by mouth medications. Objective - Vital Signs Vital signs: Vital Signs Temp 98.7 F 05/23/20 12:00 Pulse 126 H 05/23/20 12:00 Resp 13 05/23/20 12:00 BP 80/46 05/22/20 12:30 Pulse Ox 94 L 05/23/20 12:00 Intake & Output 05/22/20 05/23/20 05/23/20 18:59 06:59 18:59 Intake Total 1204 9895.426 9655.97 Output Total 2284 65 30 Balance -1080 1498.339 979.97 Weight 81.4 kg 91.7 kg Intake: IV 825 1300 599 Amiodarone 300 mg In 125 Dextrose 5% in Water 250 ml @ 0.5 MG/MIN 25 mls/hr IV .Q10H [facility] Rx#: [id number] Diltiazem 125 mg In 45 Sodium Chloride 0.9% 100 ml @ 10 MG/HR 10 mls/hr IV .[id number] [facility] Rx#: [id number] NS 780 1200 124 Piperacillin-Tazobactam 3 100 50 .375 gm In Sodium Chloride 0.9% 100 ml @ 25 mls/hr IVPB Q12HR@0000, 1200 [facility] Rx#:[id number] Sodium Chloride 0.9% 1, 300 000 ml @ 50 mls/hr IV . Q20H [facility] Rx#:[id number] Intake, IV Titration 379 263.339 360.97 Amount Amiodarone 300 mg In 250 Dextrose 5% in Water 250 ml @ 0.5 MG/MIN 25 mls/hr IV .Q10H [facility] Rx#: [id number] Diltiazem 125 mg In 125 Sodium Chloride 0.9% 100 ml @ 10 MG/HR 10 mls/hr IV .[id number] [facility] Rx#: [id number] Norepinephrine 32 mg In 263.339 110.97 Sodium Chloride 0.9% 218 ml @ 0.5 MCG/KG/MIN 19. 078 mls/hr IV .Q13H7M [facility] Rx#:[id number] Norepinephrine 4 mg In 254 Sodium Chloride 0.9% 250 ml @ 0.05 MCG/KG/MIN 14. 097 mls/hr IV .Q18H2M [facility] Rx#:[id number] Oral 50 Output: Urine 284 65 30 Hemodialysis 1999 Other: Voiding Method Indwelling Catheter Indwelling Catheter Indwelling Catheter # Voids 0 ABP, PAP, CO, CI - Last Documented Arterial Blood Pressure 101/50 - Exam GENERAL EXAM: Patient is Sleepy but arousable. Doesn't appear to be in acute distress HEENT: Normocephalic. Normal reaction of pupils, equal size, normal range of extraocular motion. No erythema or exudates in the throat. NECK: No masses, no nuchal rigidity. CHEST: No chest wall deformity. LUNGS: [Equal air entry with no crackles or wheeze.] HEART: Irregular heart rhythm ABDOMEN: No hepatosplenomegaly, normal bowel sounds, no guarding or rigidity. SKIN: No rashes CENTRAL NERVOUS SYSTEM: Not obtained EXTREMITIES: No edema - Labs CBC & Chem 7: 05/23/20 06:05 05/23/20 06:05 Labs: Abnormal Lab Results - Last 24 Hours (Table) 05/22/20 05/23/20 05/23/20 Range/Units 20:24 06:05 06:05 RBC 2.54 L (3.80-5.40) m/uL Hgb 9.1 L (11.4-16.0) gm/dL Hct 31.1 L (34.0-46.0) % MCV 122.6 H (80.0-100.0) fL MCH 36.0 H (25.0-35.0) pg MCHC 29.3 L (31.0-37.0) g/dL RDW 16.3 H (11.5-15.5) % Monocytes # (Manual) 1.26 H (0-1.0) k/uL Macrocytosis Marked A Carbon Dioxide 18 L (22-30) mmol/L BUN 19 H (7-17) mg/dL Creatinine 2.11 H (0.52-1.04) mg/dL Glucose 149 H (74-99) mg/dL POC Glucose (mg/dL) 128 H (75-99) mg/dL Calcium 8.0 L (8.4-10.2) mg/dL Total Bilirubin 1.7 H (0.2-1.3) mg/dL Total Protein 5.0 L (6.3-8.2) g/dL Albumin 2.5 L (3.5-5.0) g/dL 05/23/20 05/23/20 Range/Units 06:09 11:35 RBC (3.80-5.40) m/uL Hgb (11.4-16.0) gm/dL Hct (34.0-46.0) % MCV (80.0-100.0) fL MCH (25.0-35.0) pg MCHC (31.0-37.0) g/dL RDW (11.5-15.5) % Monocytes # (Manual) (0-1.0) k/uL Macrocytosis Carbon Dioxide (22-30) mmol/L BUN (7-17) mg/dL Creatinine (0.52-1.04) mg/dL Glucose (74-99) mg/dL POC Glucose (mg/dL) 155 H 151 H (75-99) mg/dL Calcium (8.4-10.2) mg/dL Total Bilirubin (0.2-1.3) mg/dL Total Protein (6.3-8.2) g/dL Albumin (3.5-5.0) g/dL Microbiology - Last 24 Hours (Table) 05/20/20 13:35 Urine Culture - Final Urine,Clean Catch Escherichia coli 05/20/20 13:45 Blood Culture - Preliminary Blood No Growth after 48 hours Assessment and Plan (1) Atrial fibrillation with RVR Current Visit: Yes Status: Acute Code(s): I48.91 - UNSPECIFIED ATRIAL FIBRILLATION SNOMED Code(s): 766552312500989 (2) Hypotension Current Visit: Yes Status: Acute Code(s): I95.9 - HYPOTENSION, UNSPECIFIED SNOMED Code(s): 05909736 (3) Ileus Current Visit: Yes Status: Acute Code(s): K56.7 - ILEUS, UNSPECIFIED SNOMED Code(s): 704223253 (4) Acute on chronic renal failure Current Visit: No Status: Acute Code(s): N17.9 - ACUTE KIDNEY FAILURE, UNSPECIFIED SNOMED Code(s): 346271639 (5) Essential hypertension Current Visit: No Status: Acute Code(s): I10 - ESSENTIAL (PRIMARY) HYPERTENSION SNOMED Code(s): 95607199 Plan: Continue current treatment with amiodarone. Switched to by mouth amiodarone. Continue the rest of the medication
[2020-05-23 18:10] LABS: Glucose,Whole Blood 135 mg/dL (75-99)
[2020-05-24] MEDS: NOREPINEPHRINE 32 MG in SODIUM CHLORIDE 0.9% 218 ML IV SCH ×2 (01:19→15:19)
[2020-05-24] MEDS: MORPHINE SULFATE 2 MG/ML SYRINGE IVP PRN (03:58)
[2020-05-24 04:16] LABS: Basophils % (A) 0 %; Eosinophils # (A) 0.1 k/uL (0-0.7); Eosinophils % (A) 1 %; HCT 30.1 % (34.0-46.0); HGB 9.5 gm/dL (11.4-16.0); Hypochromasia Marked; Lymphocytes # (A) 0.5 k/uL (1.0-4.8); Lymphocytes % (A) 8 %; MCH 38.5 pg (25.0-35.0); MCHC 31.7 g/dL (31.0-37.0); MCV 121.1 fL (80.0-100.0); Mean Platelet Volume 8.2; Monocytes # (A) 0.3 k/uL (0-1.0); Monocytes % (A) 4 %; Neutrophils # (A) 5.5 k/uL (1.3-7.7); Neutrophils % (A) 84 %; Platelet Count 205 k/uL (150-450); RBC 2.48 m/uL (3.80-5.40); RDW 15.6 % (11.5-15.5); WBC 6.5 k/uL (3.8-10.6)
[2020-05-24 04:33] LABS: Albumin 2.4 g/dL (3.5-5.0); Calcium 8.1 mg/dL (8.4-10.2); Potassium 4.4 mmol/L (3.5-5.1); Total Protein 4.8 g/dL (6.3-8.2)
[2020-05-24 04:46] LABS: Macrocytosis Marked
[2020-05-24] MEDS: AMIODARONE 300 MG in DEXTROSE 5% IN WATER 250 ML IV SCH ×4 (07:30→20:35)
[2020-05-24] MEDS: DORZOLAMIDE HCL 2% DROPS 10 ML BTL BOTH EYES SCH ×2 (07:31→20:44)
[2020-05-24] MEDS: BRIMONIDINE TARTRATE 0.2% DROPS 5 ML BTL BOTH EYES SCH ×2 (07:31→20:43)
--- NOTE | 2020-05-24 08:04 | P.PN ---
Progress Note - Text Progress Note Date: 05/24/20 The patient had her nasogastric tube removed yesterday. She had some limited clear liquid intake. She's had no vomiting. On exam vital signs are stable. Abdomen soft. Patient remained on clear liquids. Once she has rated this we will advance her diet.
[2020-05-24] MEDS: RIVAROXABAN 10 MG TAB PO SCH (08:28)
[2020-05-24] MEDS: TORSEMIDE 20 MG TAB PO SCH (08:28)
[2020-05-24] MEDS: CALCIUM ACETATE 667 MG TAB PO SCH ×3 (08:28→16:31)
[2020-05-24] MEDS ORDERED: AMIODARONE 200 MG TAB PO SCH (11:27)
[2020-05-24 11:32] LABS: Glucose,Whole Blood 145 mg/dL (75-99)
[2020-05-24] MEDS: NYSTATIN 100,000 UNIT/ML SUSP 500,000 UNIT/5 ML CUP PO SCH ×3 (12:19→21:46)
--- NOTE | 2020-05-24 12:28 | P.PN ---
Subjective Progress Note Date: 05/24/20 Principal diagnosis: Acute ileus, end-stage renal disease, atrial fibrillation with RVR. This is a very pleasant 85-year-old female patient who follows with Dr. Owen as her primary care provider. She has history of atrial fibrillation anticoagulated with Xarelto, poor vision, hypertension, diabetes mellitus, coronary artery disease, congestive heart failure, DVT, end-stage renal disease and on hemodialysis Monday since October 2019. She is a lifelong nonsmoker. She presented here on 05/16/2020 with complaints of abdominal discomfort and nausea and vomiting, poor appetite. She has been compliant with her dialysis treatments. CAT scan of the abdomen and pelvis revealed multiple fluid-filled small bowel loops. The appeared dilated.: Contains fluid and some fecal debris. Correlate for ileus. Partial small bowel obstruction not identified. Previous surgical changes with anastomosis appear chronic. Multiple ill-defined hypodensities scattered throughout the liver which appeared to have increased compared to 2017. She has been seen and evaluated by surgical services. Nasogastric tube has been placed. See well on the regular medical floor she developed hypotension and an A was called. She been transferred to the intensive care unit where consulted for the same. She has received 1-1/2 L of fluid resuscitation. She is initiated on norepinephrine currently at 0.16 mcg/kg/m. Blood cultures and urine cultures are pending. Right upper extremity midline placed. She remains awake and alert in no acute distress. Maintaining O2 saturations in the 90s on room air. She is in A. fib with RVR. She has been initiated on Zosyn. Reevaluated today on 05/21/20, patient remains in the ICU, remains on norepinephrine at 0.13 mcg/kg/m, IV fluid is at 100 mL/h, patient is on room air with O2 saturation of 95%. Cardizem was added today for her atrial fibrillation with RVR, and she is in atrial fibrillation with a rate of 144. Cardiology recommended oral metoprolol, however the patient has a nasogastric tube, and it is on continuous suction, patient lost her midline today, and I had to place a right subclavian central line for norepinephrine drip. Patient denies any shortness of breath, no cough, no wheezing, her abdominal pain and discomfort seems to be improved and better compared to the last 24 hours, nasogastric tube remains on suction. Patient is afebrile, urinalysis is showing evidence of hematuria and bacteriuria as well as pyuria. Will empirically place the patient on antibiotics in the form of Zosyn for now. Urine culture is pending. Patient was reevaluated today on 05/23/20, remains in the ICU, requiring nor epinephrine, she is now on norepinephrine at 0.48 mcg/kg/m, she is on 2 L nasal cannula with O2 saturation of 93%, patient was also placed on amiodarone as per cardiology for atrial fibrillation with RVR, presently on an amiodarone drip. Her nasogastric tube was discontinued by surgery patient remains on dialysis on Monday, and she seems to be comfortable, and in no distress. Labs today showed average Of 6.3 hemoglobin is 9.1. Elective lites are normal. Bicarb is 18 BUN is 19 and creatinine is 2.11. Remains on antibiotics empirically. Urine culture is positive for E. coli. Sensitive to all antibiotics. Hence we will treat the patient with Rocephin and discontinue Zos yn. Reevaluated today on 05/24/20, patient remains in the ICU, continues to require norepinephrine for low blood pressure. Patient is now on 0.4 mcg/kg/m, she is also on amiodarone drip for atrial fibrillation, rate seems to be poorly controlled, this is being managed by cardiology. Patient is also on Rocephin for urinary tract infection, her hemoglobin today is 9.5, creatinine is up to 2.69. Patient is on hemodialysis. And she is on 2 L nasal cannula not in any form of respiratory distress. Surprisingly the patient seems to do well in spite of her multiple medical problems as listed below. She count is 6.5 hemoglobin is 9.5. Elective lites are normal. Objective - Vital Signs Vital signs: Vital Signs Temp 97.9 F 05/24/20 08:00 Pulse 111 H 05/24/20 11:00 Resp 17 05/24/20 11:00 BP 0/0 05/23/20 17:00 Pulse Ox 97 05/24/20 11:00 Intake & Output 05/23/20 05/24/20 05/24/20 18:59 06:59 18:59 Intake Total 1600.27 1278.867 827.134 Output Total 50 0 0 Balance 1550.27 1278.867 827.134 Weight 93.3 kg Intake: IV 1073 936 158 A-line pressure bag 148 36 3 Amiodarone 300 mg In 275 300 25 Dextrose 5% in Water 250 ml @ 0.5 MG/MIN 25 mls/hr IV .Q10H [facility] Rx#: [id number] Piperacillin-Tazobactam 3 50 .375 gm In Sodium Chloride 0.9% 100 ml @ 25 mls/hr IVPB Q12HR@0000, 1200 [facility] Rx#:[id number] Sodium Chloride 0.9% 1, 600 600 130 000 ml @ 50 mls/hr IV . Q20H [facility] Rx#:[id number] Intake, IV Titration 477.27 242.867 429.134 Amount Amiodarone 300 mg In 250 Dextrose 5% in Water 250 ml @ 0.5 MG/MIN 25 mls/hr IV .Q10H [facility] Rx#: [id number] Amiodarone 300 mg In 109.167 250 Dextrose 5% in Water 250 ml @ 0.5 MG/MIN 25 mls/hr IV .Q10H [facility] Rx#: [id number] Norepinephrine 32 mg In 227.27 133.7 179.134 Sodium Chloride 0.9% 218 ml @ 0.5 MCG/KG/MIN 19. 078 mls/hr IV .Q13H7M [facility] Rx#:[id number] Oral 50 100 240 Output: Urine 50 0 0 Other: Voiding Method Indwelling Catheter Indwelling Catheter # Voids 0 ABP, PAP, CO, CI - Last Documented Arterial Blood Pressure 106/52 - Exam GENERAL EXAM: Alert, pleasant 85-year-old female patient, comfortable in no apparent distress. On 2 liters nasal cannula. Head: Atraumatic, normocephalic. HEENT: Head is atraumatic, normocephalic, right IJ dialysis catheter is noted, no neck masses, no JVD, no stridor, no thyromegaly. Nasogastric tube in place on suction. CHEST: No chest wall deformity. Symmetrical chest expansion. LUNGS: Clear throughout no crackles or rhonchi or wheezes.. CVS: Irregular irregular rhythm, tachycardic, no S3 gallop. ABDOMEN: Soft nontender no megaly no rebound, her nasogastric tube has been discontinued. SPINE: No scoliosis or deformity SKIN: No rashes CENTRAL NERVOUS SYSTEM: Alert and oriented 3. No focal deficits, tone is normal in all 4 extremities. EXTREMITIES: There is 1+ bipedal edema. No clubbing, no cyanosis. Peripheral pulses are intact. - Labs CBC & Chem 7: 05/24/20 04:00 05/24/20 04:00 Labs: Abnormal Lab Results - Last 24 Hours (Table) 05/23/20 05/24/20 05/24/20 Range/Units 18:08 04:00 04:00 RBC 2.48 L (3.80-5.40) m/uL Hgb 9.5 L (11.4-16.0) gm/dL Hct 30.1 L (34.0-46.0) % MCV 121.1 H (80.0-100.0) fL MCH 38.5 H (25.0-35.0) pg RDW 15.6 H (11.5-15.5) % Lymphocytes # 0.5 L (1.0-4.8) k/uL Macrocytosis Marked A Chloride 108 H (98-107) mmol/L Carbon Dioxide 20 L (22-30) mmol/L BUN 29 H (7-17) mg/dL Creatinine 2.69 H (0.52-1.04) mg/dL Glucose 160 H (74-99) mg/dL POC Glucose (mg/dL) 135 H (75-99) mg/dL Calcium 8.1 L (8.4-10.2) mg/dL Total Bilirubin 2.0 H (0.2-1.3) mg/dL Total Protein 4.8 L (6.3-8.2) g/dL Albumin 2.4 L (3.5-5.0) g/dL 05/24/20 Range/Units 11:31 RBC (3.80-5.40) m/uL Hgb (11.4-16.0) gm/dL Hct (34.0-46.0) % MCV (80.0-100.0) fL MCH (25.0-35.0) pg RDW (11.5-15.5) % Lymphocytes # (1.0-4.8) k/uL Macrocytosis Chloride (98-107) mmol/L Carbon Dioxide (22-30) mmol/L BUN (7-17) mg/dL Creatinine (0.52-1.04) mg/dL Glucose (74-99) mg/dL POC Glucose (mg/dL) 145 H (75-99) mg/dL Calcium (8.4-10.2) mg/dL Total Bilirubin (0.2-1.3) mg/dL Total Protein (6.3-8.2) g/dL Albumin (3.5-5.0) g/dL Microbiology - Last 24 Hours (Table) 05/20/20 13:45 Blood Culture - Preliminary Blood No Growth after 72 hours Assessment and Plan Assessment: Impression: Acute abdominal pain secondary to ileus, history of previous bowel resection. Her nasogastric tube was discontinued yesterday. Hypovolemic hypotension, possible sepsis Acute urinary tract infection. Secondary to E. coli Atrial fibrillation with RVR. History of hypertension. Chronic renal failure/end-stage renal disease on hemodialysis. History of valvular heart disease. History of pulmonary hypertension. History of deep vein thromboses and previous [place] filter placement History of GERD Recommendation: Continue to monitor the patient in the ICU. Continue hemodialysis. Continue norepinephrine and titrate accordingly. Patient is requiring pressors mostly because of her hypovolemia, atrial fibrillation with RVR, and possible sepsis and septic shock. Secondary to urinary tract infection. Continue amiodarone as per cardiology on the case. Advance diet as recommended by surgery Continue Rocephin for E. coli urinary tract infection. We'll continue to follow. Prognosis remains fairly guarded at this point. Patient is DO NOT RESUSCITATE. Time with Patient: Less than 30
[2020-05-24] MEDS ORDERED: DEXTROSE 5% IN WATER 100 ML with AMIODARONE 150 MG IV ONE (12:39)
[2020-05-24] MEDS ORDERED: AMIODARONE 360 MG in DEXTROSE 5% IN WATER 200 ML IV ONE ×2 (12:41)
--- NOTE | 2020-05-24 12:54 | P.PN ---
Subjective Progress Note Date: 05/24/20 his 85-year-old female with history of abdominal pain secondary to ileus with previous history of bowel resection, atrial fibrillation with RVR hypertension and chronic renal failure seemed to be relatively stable. Patient is still on norepinephrine Patient was initiated on IV amiodarone therapy for A. fib with RVR. Today's heart rate is fairly controlled in the range of about 80-90. Her creatinine is about 2.1. She doesn't seem to be in acute distress. She is also being treated with antibiotic for UTI We'll continue current medical therapy. We'll switch to by mouth medications. 05/24/2020: This patient is a multiple medical issues including ileus, and UTI has been having A. fib with RVR. Patient has been on IV amiodarone. Heart rate is in the about 120s. Patient is unable to take anything by mouth. We will continue IV amiodarone. We'll give additional bolus of 150 g and continued drip at 1 mg. Patient is on norepinephrine with borderline systolic blood pressure. Cannot use the beta blockers are constant channel blockers. If necessary, we'll may give her one dose of Lanoxin. Prognosis is poor Objective - Vital Signs Vital signs: Vital Signs Temp 97.9 F 05/24/20 08:00 Pulse 111 H 05/24/20 11:00 Resp 17 05/24/20 11:00 BP 0/0 05/23/20 17:00 Pulse Ox 97 05/24/20 11:00 Intake & Output 05/23/20 05/24/20 05/24/20 18:59 06:59 18:59 Intake Total 1600.27 1278.867 827.134 Output Total 50 0 0 Balance 1550.27 1278.867 827.134 Weight 93.3 kg Intake: IV 1073 936 158 A-line pressure bag 148 36 3 Amiodarone 300 mg In 275 300 25 Dextrose 5% in Water 250 ml @ 0.5 MG/MIN 25 mls/hr IV .Q10H [facility] Rx#: [id number] Piperacillin-Tazobactam 3 50 .375 gm In Sodium Chloride 0.9% 100 ml @ 25 mls/hr IVPB Q12HR@0000, 1200 [facility] Rx#:[id number] Sodium Chloride 0.9% 1, 600 600 130 000 ml @ 50 mls/hr IV . Q20H [facility] Rx#:[id number] Intake, IV Titration 477.27 242.867 429.134 Amount Amiodarone 300 mg In 250 Dextrose 5% in Water 250 ml @ 0.5 MG/MIN 25 mls/hr IV .Q10H [facility] Rx#: [id number] Amiodarone 300 mg In 109.167 250 Dextrose 5% in Water 250 ml @ 0.5 MG/MIN 25 mls/hr IV .Q10H [facility] Rx#: [id number] Norepinephrine 32 mg In 227.27 133.7 179.134 Sodium Chloride 0.9% 218 ml @ 0.5 MCG/KG/MIN 19. 078 mls/hr IV .Q13H7M [facility] Rx#:[id number] Oral 50 100 240 Output: Urine 50 0 0 Other: Voiding Method Indwelling Catheter Indwelling Catheter # Voids 0 0 ABP, PAP, CO, CI - Last Documented Arterial Blood Pressure 106/52 - Exam GENERAL EXAM: Patient is Sleepy but arousable. Doesn't appear to be in acute distress HEENT: Normocephalic. Normal reaction of pupils, equal size, normal range of extraocular motion. No erythema or exudates in the throat. NECK: No masses, no nuchal rigidity. CHEST: No chest wall deformity. LUNGS: [Equal air entry with no crackles or wheeze.] HEART: Irregular heart rhythm ABDOMEN: No hepatosplenomegaly, normal bowel sounds, no guarding or rigidity. SKIN: No rashes CENTRAL NERVOUS SYSTEM: Not obtained EXTREMITIES: No edema - Labs CBC & Chem 7: 05/24/20 04:00 05/24/20 04:00 Labs: Abnormal Lab Results - Last 24 Hours (Table) 05/23/20 05/24/20 05/24/20 Range/Units 18:08 04:00 04:00 RBC 2.48 L (3.80-5.40) m/uL Hgb 9.5 L (11.4-16.0) gm/dL Hct 30.1 L (34.0-46.0) % MCV 121.1 H (80.0-100.0) fL MCH 38.5 H (25.0-35.0) pg RDW 15.6 H (11.5-15.5) % Lymphocytes # 0.5 L (1.0-4.8) k/uL Macrocytosis Marked A Chloride 108 H (98-107) mmol/L Carbon Dioxide 20 L (22-30) mmol/L BUN 29 H (7-17) mg/dL Creatinine 2.69 H (0.52-1.04) mg/dL Glucose 160 H (74-99) mg/dL POC Glucose (mg/dL) 135 H (75-99) mg/dL Calcium 8.1 L (8.4-10.2) mg/dL Total Bilirubin 2.0 H (0.2-1.3) mg/dL Total Protein 4.8 L (6.3-8.2) g/dL Albumin 2.4 L (3.5-5.0) g/dL 05/24/20 Range/Units 11:31 RBC (3.80-5.40) m/uL Hgb (11.4-16.0) gm/dL Hct (34.0-46.0) % MCV (80.0-100.0) fL MCH (25.0-35.0) pg RDW (11.5-15.5) % Lymphocytes # (1.0-4.8) k/uL Macrocytosis Chloride (98-107) mmol/L Carbon Dioxide (22-30) mmol/L BUN (7-17) mg/dL Creatinine (0.52-1.04) mg/dL Glucose (74-99) mg/dL POC Glucose (mg/dL) 145 H (75-99) mg/dL Calcium (8.4-10.2) mg/dL Total Bilirubin (0.2-1.3) mg/dL Total Protein (6.3-8.2) g/dL Albumin (3.5-5.0) g/dL Microbiology - Last 24 Hours (Table) 05/20/20 13:45 Blood Culture - Preliminary Blood No Growth after 72 hours Assessment and Plan (1) Atrial fibrillation with RVR Current Visit: Yes Status: Acute Code(s): I48.91 - UNSPECIFIED ATRIAL FIBRILLATION SNOMED Code(s): 968336937465465 (2) Hypotension Current Visit: Yes Status: Acute Code(s): I95.9 - HYPOTENSION, UNSPECIFIED SNOMED Code(s): 58418677 (3) Ileus Current Visit: Yes Status: Acute Code(s): K56.7 - ILEUS, UNSPECIFIED SNOMED Code(s): 589350784 (4) Acute on chronic renal failure Current Visit: No Status: Acute Code(s): N17.9 - ACUTE KIDNEY FAILURE, UNSPECIFIED SNOMED Code(s): 641915352 (5) Essential hypertension Current Visit: No Status: Acute Code(s): I10 - ESSENTIAL (PRIMARY) HYPERTENSION SNOMED Code(s): 33962398 Plan: Patient is unable to take anything by mouth. We'll continue IV amiodarone with additional bolus of 150 mg and continue drip at 1 mg. continue rest of management. Prognosis is poor
--- NOTE | 2020-05-24 13:01 | P.PN ---
Subjective Progress Note Date: 05/25/20 Principal diagnosis: This is a 85-year-old female with ESRD on dialysis Monday came in with dizziness and weakness. She was found to have small bowel obstruction urine tract infection with E. coli and possibly sepsis. She had a NG tube placed which has been discontinued. She is passing some gas but no bowel movement yet does not feel like eating. Although she is She is currently feeling better. She is unable to tolerate any oral intake and continues to have vomiting if she tries. Continues to remain on levo fed and unable to come off of it with pressure going on the 80s immediately. She is also on amiodrone for her atrial fibrillation she is on appropriate antibiotics for her E. coli No shortness of breath cough no fever chills no abdominal pain. Objective - Vital Signs Vital signs: Vital Signs Temp 97.9 F 05/24/20 08:00 Pulse 111 H 05/24/20 11:00 Resp 17 05/24/20 11:00 BP 0/0 05/23/20 17:00 Pulse Ox 97 05/24/20 11:00 Intake & Output 05/23/20 05/24/20 05/24/20 18:59 06:59 18:59 Intake Total 1600.27 1278.867 827.134 Output Total 50 0 0 Balance 1550.27 1278.867 827.134 Weight 93.3 kg Intake: IV 1073 936 158 A-line pressure bag 148 36 3 Amiodarone 300 mg In 275 300 25 Dextrose 5% in Water 250 ml @ 0.5 MG/MIN 25 mls/hr IV .Q10H [facility] Rx#: [id number] Piperacillin-Tazobactam 3 50 .375 gm In Sodium Chloride 0.9% 100 ml @ 25 mls/hr IVPB Q12HR@0000, 1200 [facility] Rx#:[id number] Sodium Chloride 0.9% 1, 600 600 130 000 ml @ 50 mls/hr IV . Q20H [facility] Rx#:[id number] Intake, IV Titration 477.27 242.867 429.134 Amount Amiodarone 300 mg In 250 Dextrose 5% in Water 250 ml @ 0.5 MG/MIN 25 mls/hr IV .Q10H [facility] Rx#: [id number] Amiodarone 300 mg In 109.167 250 Dextrose 5% in Water 250 ml @ 0.5 MG/MIN 25 mls/hr IV .Q10H [facility] Rx#: [id number] Norepinephrine 32 mg In 227.27 133.7 179.134 Sodium Chloride 0.9% 218 ml @ 0.5 MCG/KG/MIN 19. 078 mls/hr IV .Q13H7M [facility] Rx#:[id number] Oral 50 100 240 Output: Urine 50 0 0 Other: Voiding Method Indwelling Catheter Indwelling Catheter # Voids 0 0 ABP, PAP, CO, CI - Last Documented Arterial Blood Pressure 106/52 Examination comfortable awake alert oriented HEENT exam no JVP neck is supple no facial asymmetry Lungs are clear to auscultation good air entry bilaterally Heart sounds are unremarkable She is in atrial fibrillation Abdomen soft and minimally tender Bowel sounds are diminished Extremity exam was mild edema Neurologically awake alert oriented 3 but performed leaving - Labs CBC & Chem 7: 05/24/20 04:00 05/24/20 04:00 Labs: Abnormal Lab Results - Last 24 Hours (Table) 05/23/20 05/24/20 05/24/20 Range/Units 18:08 04:00 04:00 RBC 2.48 L (3.80-5.40) m/uL Hgb 9.5 L (11.4-16.0) gm/dL Hct 30.1 L (34.0-46.0) % MCV 121.1 H (80.0-100.0) fL MCH 38.5 H (25.0-35.0) pg RDW 15.6 H (11.5-15.5) % Lymphocytes # 0.5 L (1.0-4.8) k/uL Macrocytosis Marked A Chloride 108 H (98-107) mmol/L Carbon Dioxide 20 L (22-30) mmol/L BUN 29 H (7-17) mg/dL Creatinine 2.69 H (0.52-1.04) mg/dL Glucose 160 H (74-99) mg/dL POC Glucose (mg/dL) 135 H (75-99) mg/dL Calcium 8.1 L (8.4-10.2) mg/dL Total Bilirubin 2.0 H (0.2-1.3) mg/dL Total Protein 4.8 L (6.3-8.2) g/dL Albumin 2.4 L (3.5-5.0) g/dL 05/24/20 Range/Units 11:31 RBC (3.80-5.40) m/uL Hgb (11.4-16.0) gm/dL Hct (34.0-46.0) % MCV (80.0-100.0) fL MCH (25.0-35.0) pg RDW (11.5-15.5) % Lymphocytes # (1.0-4.8) k/uL Macrocytosis Chloride (98-107) mmol/L Carbon Dioxide (22-30) mmol/L BUN (7-17) mg/dL Creatinine (0.52-1.04) mg/dL Glucose (74-99) mg/dL POC Glucose (mg/dL) 145 H (75-99) mg/dL Calcium (8.4-10.2) mg/dL Total Bilirubin (0.2-1.3) mg/dL Total Protein (6.3-8.2) g/dL Albumin (3.5-5.0) g/dL Microbiology - Last 24 Hours (Table) 05/20/20 13:45 Blood Culture - Preliminary Blood No Growth after 72 hours Assessment and Plan Assessment: Impression 1. ESRD on dialysis Monday, with a permacath 2. Admitted with weakness and dizziness. Urine tract infection with E. coli on appropriate antibiotics 3. Edema, secondary to multiple causes including previous history of DVT, poor nutritional state and hypoalbuminemia 4. History of mild aortic stenosis, moderate mitral regurg tricuspid regurg, pulmonary hypertension. 5. Diabetes mellitus 6. Small bowel obstruction improved, unable to tolerate by mouth 7. History of [place] filter placement 8. Hypotension, requiring levo fed, unable to come off 9. Atrial fibrillation on IV Amiodranone Recommendation 1. Will dialyze her tomorrow for 3-1/2 hours and ultrafiltration of about 1.5 L as tolerated 2. Continue antibiotics 3. Try to taper off levo fed
--- NOTE | 2020-05-24 14:34 | P.PN ---
Subjective Progress Note Date: 05/24/20 Trina Carrillo, is an 85-year-old female who presented to [facility] emergency room with a chief complaint of dizziness and lightheadedness and generalized weakness, patient has a known history of end-stage renal disease on hemodialysis Monday and Monday, chronic systolic congestive heart failure, chronic atrial fibrillation, pulmonary hypertension, and valvular heart disease with aortic stenosis and severe tricuspid regurgitation, severe mitral regurgitation. Patient stated that her symptoms started when she returned from hemodialysis on Monday she also started developing some nausea and vomiting. She was also complaining of some episodes of chest pain and she decided to come to emergency room. patient was evaluated in emergency room her vital examination on presentat ion reveals a temperature of 98 pulse 52 respiration 20 blood pressure 94/63 pulse ox 98% on room air, laboratory data was significant for slightly elevated white blood count of 12.5 hemoglobin 10.4 and platelet count of 191 sodium was 132 potassium 3.5 chloride 92 BUN 25 creatinine 3.34 glucose 125 normal liver enzymes with slightly elevated alkaline phosphatase and normal lipase, EKG done in the emergency room revealed atrial fibrillation with nonspecific ST and T wave abnormalities, patient was admitted to telemetry floor for further evaluation and treatment echocardiogram and carotid Doppler were ordered, cardiology consultation and nephrology consultation were requested. Patient was seen and examined on the telemetry floor, she is complaining of nausea, and generalized weakness, and dizziness otherwise she denies any complaints at this time there is no fever or chills, no headache no chest pain no shortness of breath no cough no vomiting no diarrhea no blood in the stools no burning with urination no frequency or urgency and no hematuria. On 05/18/2020 patient was seen and examined on the medical floor she is alert and oriented 3 in no apparent distress, she is complaining of nausea and occasional vomiting there is no fever or chills no headache or dizziness, no chest pain no shortness of breath no cough there is mild discomfort in the abdomen no diarrhea no blood in the stools no burning with urination no frequency or urgency and no hematuria. Abdomen x-ray is showing evidence of partial small bowel obstruction at this time patient will be kept nothing by mouth consultation for Dr. Vuong was initiated patient is well known to him he operated on her abdomen in the past. n 05/19/2020 patient was seen and examined on the medical floor she is alert and oriented 3 in no distress at this time she has NG tube in to suction she is feeling better with less abdominal pain otherwise she denies any complaints there is no fever or chills no headache or dizziness no chest pain no shortness of breath no cough no nausea or vomiting no burning with urination no frequency or urgency and no hematuria On 05/20/2020 patient is alert and oriented 3. Patient having low blood pressure and elevated heart rate. Patient has been ordered to transfer to the ICU. ICU nurse currently at bedside and midline has been placed. Critical care doctor Jen has ordered patient to be started on Levophed for pressure support at this time. Lactic acid did come back slightly elevated at 2.1. Blood cultures have been ordered Dr. Berman has been consulted. Blood pressure has im proved to 120s. Patient remains with NG tube dissection surgery is following. Per nephrology plans for hemodialysis today due to low blood pressure. Patient will be transferred to the intensive care unit for closer monitoring critical care and infectious disease consult placed at this time patient is alert and oriented. Patient reports that she did feel out of it when her pressure was low but has improved. Patient denies any chest pain or shortness of breath. Patient denies nausea vomiting or diarrhea. Patient denies any urinary burning or frequency. Per urology services also consulted and patient started on Zosyn. On 05/21/2020 patient was seen and examined in the ICU she is alert and oriented 3 in no apparent distress she is receiving hemodialysis at this time, NG tube is in to suction, she is complaining of pain in her hips otherwise she denies any complaints there is no fever or chills no headache or dizziness no chest pain no shortness of breath no cough no nausea or vomiting no abdominal pain no diarrhea no blood in the stools no burning with urination no frequency or urgency and no hematuria On 05/22/2020 patient remains in the intensive care unit alert and oriented currently getting hemodialysis. Patient remains on Levophed for pressure support. Potassium low at 2.7 placed per protocol per nursing staff. This time patient denies chest pain or shortness breath. Patient denies nausea vomiting or diarrhea. Patient denies any urinary burning or frequency. On 05/23/2020 patient was seen and examined in the intensive care unit, she is alert and oriented 3 in no apparent distress she is answering questions appropriately, NG tube has been removed, she states that she is passing some gas, no bowel movements, she is still complaining of some abdominal discomfort and pain otherwise she denies any complaints there is no fever or chills no headache or dizziness no chest pain no shortness of breath no cough no nausea or vomiting no diarrhea no blood in the stools no burning with urination no frequency or urgency and no hematuria On 05/24/2020 patient was seen and examined in the ICU she is alert and oriented 3 in no distress there is no fever or chills no headache or dizziness no chest pain no shortness of breath no cough no nausea or vomiting no abdominal pain no diarrhea no blood in the stools no burning with urination no frequency or urge ncy and no hematuria NG tube has been removed shouldn't is receiving clear liquid diet she has passed some gas but had no bowel movement yet she is feeling better she is maintained on oxygen via nasal cannula and tolerating well. Objective - Vital Signs Vital signs: Vital Signs Temp 97.9 F 05/24/20 08:00 Pulse 111 H 05/24/20 11:00 Resp 17 05/24/20 11:00 BP 0/0 05/23/20 17:00 Pulse Ox 97 05/24/20 11:00 Intake & Output 05/23/20 05/24/20 05/24/20 18:59 06:59 18:59 Intake Total 1600.27 1278.867 903.134 Output Total 50 0 0 Balance 1550.27 1278.867 903.134 Weight 93.3 kg Intake: IV 1073 936 234 A-line pressure bag 148 36 9 Amiodarone 300 mg In 275 300 75 Dextrose 5% in Water 250 ml @ 0.5 MG/MIN 25 mls/hr IV .Q10H [facility] Rx#: [id number] Piperacillin-Tazobactam 3 50 .375 gm In Sodium Chloride 0.9% 100 ml @ 25 mls/hr IVPB Q12HR@0000, 1200 [facility] Rx#:[id number] Sodium Chloride 0.9% 1, 600 600 150 000 ml @ 50 mls/hr IV . Q20H [facility] Rx#:[id number] Intake, IV Titration 477.27 242.867 429.134 Amount Amiodarone 300 mg In 250 Dextrose 5% in Water 250 ml @ 0.5 MG/MIN 25 mls/hr IV .Q10H [facility] Rx#: [id number] Amiodarone 300 mg In 109.167 250 Dextrose 5% in Water 250 ml @ 0.5 MG/MIN 25 mls/hr IV .Q10H [facility] Rx#: [id number] Norepinephrine 32 mg In 227.27 133.7 179.134 Sodium Chloride 0.9% 218 ml @ 0.5 MCG/KG/MIN 19. 078 mls/hr IV .Q13H7M [facility] Rx#:[id number] Oral 50 100 240 Output: Urine 50 0 0 Other: Voiding Method Indwelling Catheter Indwelling Catheter # Voids 0 0 ABP, PAP, CO, CI - Last Documented Arterial Blood Pressure 106/52 - Exam in general patient is alert and oriented 3 in no apparent distress HEENT head normocephalic and atraumatic Neck is supple no JVD no goiter no lymphadenopathy Chest exam reveals a few scattered crackles bilaterally no wheezing Cardiac exam reveals regular heart sounds S1 and S2 no gallops no murmurs Abdomen is soft with tenderness in the epigastric area no organomegaly no palp able masses was normal bowel sounds Extremity exam reveals 1+ edema bilaterally no cyanosis or clubbing Neurological examination reveals no gross focal deficit - Labs CBC & Chem 7: 05/24/20 04:00 05/24/20 04:00 Labs: Abnormal Lab Results - Last 24 Hours (Table) 05/23/20 05/24/20 05/24/20 Range/Units 18:08 04:00 04:00 RBC 2.48 L (3.80-5.40) m/uL Hgb 9.5 L (11.4-16.0) gm/dL Hct 30.1 L (34.0-46.0) % MCV 121.1 H (80.0-100.0) fL MCH 38.5 H (25.0-35.0) pg RDW 15.6 H (11.5-15.5) % Lymphocytes # 0.5 L (1.0-4.8) k/uL Macrocytosis Marked A Chloride 108 H (98-107) mmol/L Carbon Dioxide 20 L (22-30) mmol/L BUN 29 H (7-17) mg/dL Creatinine 2.69 H (0.52-1.04) mg/dL Glucose 160 H (74-99) mg/dL POC Glucose (mg/dL) 135 H (75-99) mg/dL Calcium 8.1 L (8.4-10.2) mg/dL Total Bilirubin 2.0 H (0.2-1.3) mg/dL Total Protein 4.8 L (6.3-8.2) g/dL Albumin 2.4 L (3.5-5.0) g/dL 05/24/20 Range/Units 11:31 RBC (3.80-5.40) m/uL Hgb (11.4-16.0) gm/dL Hct (34.0-46.0) % MCV (80.0-100.0) fL MCH (25.0-35.0) pg RDW (11.5-15.5) % Lymphocytes # (1.0-4.8) k/uL Macrocytosis Chloride (98-107) mmol/L Carbon Dioxide (22-30) mmol/L BUN (7-17) mg/dL Creatinine (0.52-1.04) mg/dL Glucose (74-99) mg/dL POC Glucose (mg/dL) 145 H (75-99) mg/dL Calcium (8.4-10.2) mg/dL Total Bilirubin (0.2-1.3) mg/dL Total Protein (6.3-8.2) g/dL Albumin (3.5-5.0) g/dL Microbiology - Last 24 Hours (Table) 05/20/20 13:45 Blood Culture - Preliminary Blood No Growth after 72 hours Assessment and Plan Plan: 1. Partial mechanical small bowel obstruction with symptoms of nausea vomiting and generalized weakness and dizziness, cause is unclear, will check abdomen ultrasound. Surgical surfaces are following continue NG tube for decompression per surgical services. 2. Underlying history of end-stage renal disease on hemodialysis, nephrology consultation requested 3. Underlying history of chronic systolic congestive heart failure without evidence of exacerbation at this time. 2-D echo completed showing EF of 50-55%. Cardiology services consulted 4. Underlying history of chronic persistent atrial fibrillation 5. Underlying history of pulmonary hypertension 6. Underlying history of valvular heart disease 7. underlying history of diabetes mellitus 8. Hypotension. Blood pressure dropping to the 70s. Patient received 2 IV boluses. Patient has been ordered to transfer to intensive care unit and Levophed has been ordered per critical care. 9. Sepsis with Elevated lactic acid. Lactic acid 2.1. Patient started on Zosyn, blood culture ordered and infectious disease child development consultant, urinalysis is positive for urinary tract infection urine culture is positive for E. coli blood culture negative so far. 10. Hypokalemia corrected potassium today is 4.2 it was 2.7 yesterday. Patient was transferred to the intensive care unit yesterday Critical care, infectious disease, nephrology, cardiology and surgical services following Patient started on IV Zosyn and blood culture ordered Prognosis is guarded due to age and multiple underlying morbidities.
[2020-05-24 17:01] LABS: Glucose,Whole Blood 135 mg/dL (75-99)
[2020-05-24 20:41] LABS: Glucose,Whole Blood 140 mg/dL (75-99)
[2020-05-24] MEDS: ONDANSETRON 4 MG/2 ML VIAL IVP PRN (20:42)
[2020-05-24] MEDS: METOPROLOL TARTRATE 12.5 MG TAB PO SCH (21:44)
--- NOTE | 2020-05-25 01:59 | PN ---
PROGRESS NOTE DATE OF SERVICE: 05/24/2020 REASON FOR FOLLOWUP: UTI and ileus, question of abdominal infection. INTERVAL COURSE: The patient is currently afebrile. Patient is breathing comfortably. The patient denies any further nausea, vomiting. Abdominal pain is currently controlled. No chest pain, shortness of breath or cough. No diarrhea. PHYSICAL EXAMINATION: Blood pressure 108/55 with a pulse of 128, temperature 98.2. She is 97% on 2 L nasal cannula. General description is an elderly female lying in bed in no distress. RESPIRATORY SYSTEM: Unlabored breathing, decreased breath sounds in the bases. No wheeze. HEART: S1, S2. Regular rate and rhythm. ABDOMEN: Soft, no tenderness. LABS: Hemoglobin 9.5, white count 6.5. BUN of 29, creatinine is 2.69. DIAGNOSTIC IMPRESSION AND PLAN: Patient with Escherichia coli urinary tract infection also with concern for possible abdominal source in this patient who did have an ileus, patient respond to medical therapy. Covered with Zosyn to continue finish therapy with oral antibiotic on discharge. Continue with supportive care. MMODL / IJN: [id number] / MTDD
[2020-05-25] MEDS: NOREPINEPHRINE 32 MG in SODIUM CHLORIDE 0.9% 218 ML IV SCH ×2 (03:43→21:22)
[2020-05-25 04:59] LABS: Albumin 2.3 g/dL (3.5-5.0); Calcium 8.3 mg/dL (8.4-10.2); Potassium 4.4 mmol/L (3.5-5.1); Total Bilirubin 1.7 mg/dL (0.2-1.3); Total Protein 4.8 g/dL (6.3-8.2)
[2020-05-25 05:04] LABS: Anisocytosis Slight; Basophils % (A) 0 %; Eosinophils # (A) 0.1 k/uL (0-0.7); Eosinophils % (A) 1 %; HCT 29.8 % (34.0-46.0); HGB 9.1 gm/dL (11.4-16.0); Hypochromasia Moderate; Lymphocytes # (A) 0.7 k/uL (1.0-4.8); Lymphocytes % (A) 12 %; MCH 36.7 pg (25.0-35.0); MCHC 30.6 g/dL (31.0-37.0); Mean Platelet Volume 8.1; Monocytes # (A) 0.2 k/uL (0-1.0); Monocytes % (A) 4 %; Neutrophils # (A) 4.6 k/uL (1.3-7.7); Neutrophils % (A) 80 %; Platelet Count 204 k/uL (150-450); RBC 2.48 m/uL (3.80-5.40); RDW 16.1 % (11.5-15.5); WBC 5.8 k/uL (3.8-10.6)
[2020-05-25 05:06] LABS: Macrocytosis Marked
[2020-05-25] MEDS: AMIODARONE 300 MG in DEXTROSE 5% IN WATER 250 ML IV SCH ×2 (07:23)
[2020-05-25 07:47] LABS: Glucose,Whole Blood 133 mg/dL (75-99)
[2020-05-25] MEDS: SODIUM CHLORIDE 0.9% 1,000 ML IV SCH (07:47)
[2020-05-25] MEDS: BRIMONIDINE TARTRATE 0.2% DROPS 5 ML BTL BOTH EYES SCH ×2 (07:48→19:54)
[2020-05-25] MEDS: DORZOLAMIDE HCL 2% DROPS 10 ML BTL BOTH EYES SCH ×2 (07:48→19:55)
[2020-05-25] MEDS: CALCIUM ACETATE 667 MG TAB PO SCH ×4 (09:04→17:00)
[2020-05-25] MEDS: TORSEMIDE 20 MG TAB PO SCH (09:05)
[2020-05-25] MEDS: RIVAROXABAN 10 MG TAB PO SCH (09:06)
[2020-05-25] MEDS: NYSTATIN 100,000 UNIT/ML SUSP 500,000 UNIT/5 ML CUP PO SCH ×4 (09:06→21:25)
[2020-05-25] MEDS: METOPROLOL TARTRATE 12.5 MG TAB PO SCH ×2 (09:06→21:25)
--- NOTE | 2020-05-25 09:54 | P.PN ---
Subjective Patient is seen in follow-up for end-stage renal disease. She is maintained on hemodialysis on Monday schedule. Currently on clear liquid diet. Remains on Levophed. Also remains on amiodarone drip. No chest pain or shortness of breath. Vital signs are stable. General: The patient appeared well nourished and normally developed. HEENT: Head exam is unremarkable. Neck is without jugular venous distension. LUNGS: Breath sounds decreased. HEART: Irregular rate and rhythm. ABDOMEN: Soft, nontender. EXTREMITITES: 2+ edema. Objective - Vital Signs Vital signs: Vital Signs Temp 98 F 05/25/20 08:00 Pulse 94 05/25/20 09:30 Resp 13 05/25/20 09:30 BP 0/0 05/24/20 16:00 Pulse Ox 97 05/25/20 09:30 Intake & Output 05/24/20 05/25/20 05/25/20 18:59 06:59 18:59 Intake Total 1271.646 941.808 244 Output Total 0 0 Balance 1271.646 941.808 244 Weight 82.6 kg Intake: IV 521.2 592.6 144 A-line pressure bag 30 36 9 Amiodarone 300 mg In 75 Dextrose 5% in Water 250 ml @ 0.5 MG/MIN 25 mls/hr IV .Q10H [facility] Rx#: [id number] Amiodarone 300 mg In 250 75 Dextrose 5% in Water 250 ml @ 0.5 MG/MIN 25 mls/hr IV .Q10H [facility] Rx#: [id number] Amiodarone 360 mg In 166.2 66.6 Dextrose 5% in Water 200 ml @ 1 MG/MIN 33.333 mls/ hr IV .Q6H ONE Rx#: [id number] Sodium Chloride 0.9% 1, 250 240 60 000 ml @ 50 mls/hr IV . Q20H [facility] Rx#:[id number] Intake, IV Titration 510.446 349.208 Amount Amiodarone 300 mg In 250 Dextrose 5% in Water 250 ml @ 0.5 MG/MIN 25 mls/hr IV .Q10H [facility] Rx#: [id number] Amiodarone 300 mg In 250 Dextrose 5% in Water 250 ml @ 0.5 MG/MIN 25 mls/hr IV .Q10H [facility] Rx#: [id number] Norepinephrine 32 mg In 260.446 99.208 Sodium Chloride 0.9% 218 ml @ 0.5 MCG/KG/MIN 19. 078 mls/hr IV .Q13H7M [facility] Rx#:[id number] Oral 240 100 Output: Urine 0 0 Other: # Voids 0 ABP, PAP, CO, CI - Last Documented Arterial Blood Pressure 116/52 - Labs CBC & Chem 7: 05/25/20 04:30 05/25/20 04:30 Labs: Abnormal Lab Results - Last 24 Hours (Table) 05/24/20 05/24/20 05/24/20 Range/Units 11:31 16:59 20:39 RBC (3.80-5.40) m/uL Hgb (11.4-16.0) gm/dL Hct (34.0-46.0) % MCV (80.0-100.0) fL MCH (25.0-35.0) pg MCHC (31.0-37.0) g/dL RDW (11.5-15.5) % Lymphocytes # (1.0-4.8) k/uL Macrocytosis Chloride (98-107) mmol/L BUN (7-17) mg/dL Creatinine (0.52-1.04) mg/dL Glucose (74-99) mg/dL POC Glucose (mg/dL) 145 H 135 H 140 H (75-99) mg/dL Calcium (8.4-10.2) mg/dL Total Bilirubin (0.2-1.3) mg/dL Total Protein (6.3-8.2) g/dL Albumin (3.5-5.0) g/dL 05/25/20 05/25/20 05/25/20 Range/Units 04:30 04:30 07:46 RBC 2.48 L (3.80-5.40) m/uL Hgb 9.1 L (11.4-16.0) gm/dL Hct 29.8 L (34.0-46.0) % MCV 120.0 H (80.0-100.0) fL MCH 36.7 H (25.0-35.0) pg MCHC 30.6 L (31.0-37.0) g/dL RDW 16.1 H (11.5-15.5) % Lymphocytes # 0.7 L (1.0-4.8) k/uL Macrocytosis Marked A Chloride 108 H (98-107) mmol/L BUN 37 H (7-17) mg/dL Creatinine 3.40 H (0.52-1.04) mg/dL Glucose 146 H (74-99) mg/dL POC Glucose (mg/dL) 133 H (75-99) mg/dL Calcium 8.3 L (8.4-10.2) mg/dL Total Bilirubin 1.7 H (0.2-1.3) mg/dL Total Protein 4.8 L (6.3-8.2) g/dL Albumin 2.3 L (3.5-5.0) g/dL Microbiology - Last 24 Hours (Table) 05/20/20 13:45 Blood Culture - Preliminary Blood No Growth after 96 hours Assessment and Plan Plan: Assessment: 1. End-stage renal disease maintained on hemodialysis on Monday schedule. 2. Small bowel obstruction. Currently on clear liquid diet. 3. A. fib with RVR maintained on amiodarone drip. 4. Hypotension maintained on Levophed. Also on midodrine. 5. E. coli UTI maintain on antibiotics. 6. Chronic kidney disease mineral bone disease maintained on PhosLo. 7. Chronic diastolic CHF with mild to moderate mitral and tricuspid regu rgitation. 8. Moderate pulmonary hypertension. 9. Edema secondary to hypoalbuminemia, ckd. 10. Anemia of chronic kidney disease. Plan: Hemodialysis today. Wean Levophed. Add Aranesp. Diet to be advanced surgery.
--- NOTE | 2020-05-25 10:49 | P.PN ---
Subjective Progress Note Date: 05/25/20 CHIEF COMPLAINT: Abdominal pain with nausea and vomiting HISTORY OF PRESENT ILLNESS: Patient seen and examined with Dr. Martinez. Patient remains in the ICU. Patient is currently still requiring Levophed. And has been placed on amiodarone for her A. fib with RVR per cardiology. She is currently getting hemodialysis. NG tube was removed over the weekend. She is tolerating a clear liquid diet. She is afebrile. White count 5.8 hemoglobin 9.1 PHYSICAL EXAM: VITAL SIGNS: Reviewed. GENERAL: Well-developed in no acute distress. HEENT: No sclera icterus. Extraocular movements grossly intact. Moist buccal mucosa. Head is atraumatic, normocephalic. ABDOMEN: Soft nondistended NEUROLOGIC: Alert and oriented. Cranial nerves II through XII grossly intact. ASSESSMENT: 1. Ileus 2. Multiple ill-defined hypodensities scattered throughout the liver noted on CAT scan 3. UTI PLAN: -Advance diet to a full liquids -Continue antibiotic for UTI -Continue ICU management [facility] Worker note has been reviewed by physician. Signing provider agrees with the documented findings, assessment, and plan of care. Objective - Vital Signs Vital signs: Vital Signs Temp 98 F 05/25/20 08:00 Pulse 96 05/25/20 10:00 Resp 16 05/25/20 10:00 BP 0/0 05/24/20 16:00 Pulse Ox 100 05/25/20 10:00 Intake & Output 05/24/20 05/25/20 05/25/20 18:59 06:59 18:59 Intake Total 1271.646 941.808 302.764 Output Total 0 0 Balance 1271.646 941.808 302.764 Weight 82.6 kg 82.6 kg Intake: IV 521.2 592.6 144 A-line pressure bag 30 36 9 Amiodarone 300 mg In 75 Dextrose 5% in Water 250 ml @ 0.5 MG/MIN 25 mls/hr IV .Q10H [facility] Rx#: [id number] Amiodarone 300 mg In 250 75 Dextrose 5% in Water 250 ml @ 0.5 MG/MIN 25 mls/hr IV .Q10H [facility] Rx#: [id number] Amiodarone 360 mg In 166.2 66.6 Dextrose 5% in Water 200 ml @ 1 MG/MIN 33.333 mls/ hr IV .Q6H [facility] Rx#: [id number] Sodium Chloride 0.9% 1, 250 240 60 000 ml @ 50 mls/hr IV . Q20H [facility] Rx#:[id number] Intake, IV Titration 510.446 349.208 58.764 Amount Amiodarone 300 mg In 250 Dextrose 5% in Water 250 ml @ 0.5 MG/MIN 25 mls/hr IV .Q10H [facility] Rx#: [id number] Amiodarone 300 mg In 250 Dextrose 5% in Water 250 ml @ 0.5 MG/MIN 25 mls/hr IV .Q10H [facility] Rx#: [id number] Norepinephrine 32 mg In 260.446 99.208 58.764 Sodium Chloride 0.9% 218 ml @ 0.5 MCG/KG/MIN 19. 078 mls/hr IV .Q13H7M [facility] Rx#:[id number] Oral 240 100 Output: Urine 0 0 Other: # Voids 0 ABP, PAP, CO, CI - Last Documented Arterial Blood Pressure 107/48 - Labs CBC & Chem 7: 05/25/20 04:30 05/25/20 04:30 Labs: Abnormal Lab Results - Last 24 Hours (Table) 05/24/20 05/24/20 05/24/20 Range/Units 11:31 16:59 20:39 RBC (3.80-5.40) m/uL Hgb (11.4-16.0) gm/dL Hct (34.0-46.0) % MCV (80.0-100.0) fL MCH (25.0-35.0) pg MCHC (31.0-37.0) g/dL RDW (11.5-15.5) % Lymphocytes # (1.0-4.8) k/uL Macrocytosis Chloride (98-107) mmol/L BUN (7-17) mg/dL Creatinine (0.52-1.04) mg/dL Glucose (74-99) mg/dL POC Glucose (mg/dL) 145 H 135 H 140 H (75-99) mg/dL Calcium (8.4-10.2) mg/dL Total Bilirubin (0.2-1.3) mg/dL Total Protein (6.3-8.2) g/dL Albumin (3.5-5.0) g/dL 05/25/20 05/25/20 05/25/20 Range/Units 04:30 04:30 07:46 RBC 2.48 L (3.80-5.40) m/uL Hgb 9.1 L (11.4-16.0) gm/dL Hct 29.8 L (34.0-46.0) % MCV 120.0 H (80.0-100.0) fL MCH 36.7 H (25.0-35.0) pg MCHC 30.6 L (31.0-37.0) g/dL RDW 16.1 H (11.5-15.5) % Lymphocytes # 0.7 L (1.0-4.8) k/uL Macrocytosis Marked A Chloride 108 H (98-107) mmol/L BUN 37 H (7-17) mg/dL Creatinine 3.40 H (0.52-1.04) mg/dL Glucose 146 H (74-99) mg/dL POC Glucose (mg/dL) 133 H (75-99) mg/dL Calcium 8.3 L (8.4-10.2) mg/dL Total Bilirubin 1.7 H (0.2-1.3) mg/dL Total Protein 4.8 L (6.3-8.2) g/dL Albumin 2.3 L (3.5-5.0) g/dL Microbiology - Last 24 Hours (Table) 05/20/20 13:45 Blood Culture - Preliminary Blood No Growth after 96 hours
--- NOTE | 2020-05-25 11:21 | P.PN ---
Subjective Progress Note Date: 05/25/20 Principal diagnosis: Acute ileus, end-stage renal disease, atrial fibrillation with RVR This is a very pleasant 85-year-old female patient who follows with Dr. Owen as her primary care provider. She has history of atrial fibrillation anticoagulated with Xarelto, poor vision, hypertension, diabetes mellitus, coronary artery disease, congestive heart failure, DVT, end-stage renal disease and on hemodialysis Monday since October 2019. She is a lifelong nonsmoker. She presented here on 05/16/2020 with complaints of abdominal discomfort and nausea and vomiting, poor appetite. She has been compliant with her dialysis treatments. CAT scan of the abdomen and pelvis revealed multiple fluid-filled small bowel loops. The appeared dilated.: Contains fluid and some fecal debris. Correlate for ileus. Partial small bowel obstruction not identified. Previous surgical changes with anastomosis appear chronic. Multiple ill-defined hypodensities scattered throughout the liver which appeared to have increased compared to 2017. She has been seen and evaluated by surgical services. Nasogastric tube has been placed. See well on the regular medical floor she developed hypotension and an A was called. She been transferred to the intensive care unit where consulted for the same. She has received 1-1/2 L of fluid resuscitation. She is initiated on norepinephrine currently at 0.16 mcg/kg/m. Blood cultures and urine cultures are pending. Right upper extremity midline placed. She remains awake and alert in no acute distress. Maintaining O2 saturations in the 90s on room air. She is in A. fib with RVR. She has been initiated on Zosyn. Reevaluated today on 05/21/20, patient remains in the ICU, remains on norepinephrine at 0.13 mcg/kg/m, IV fluid is at 100 mL/h, patient is on room air with O2 saturation of 95%. Cardizem was added today for her atrial fibrillation with RVR, and she is in atrial fibrillation with a rate of 144. Cardiology recommended oral metoprolol, however the patient has a nasogastric tube, and it is on continuous suction, patient lost her midline today, and I had to place a right subclavian central line for norepinephrine drip. Patient denies any shortness of breath, no cough, no wheezing, her abdominal pain and discomfort seems to be improved and better compared to the last 24 hours, nasogastric tube remains on suction. Patient is afebrile, urinalysis is showing evidence of hematuria and bacteriuria as well as pyuria. Will empirically place the patient on antibiotics in the form of Zosyn for now. Urine culture is pending. On 05/22/2020 patient seen in follow-up in the intensive care unit, she is cu rrently having dialysis with the goal of removal of 2 L of fluid blood pressure permitting. Room air pulse ox is 89-90%. Urine culture is showing gram- negative bacilli, final cultures pending, blood culture has shown no growth thus far. Patient remains on 13 mics per minute of Levophed, 0.9 normal saline at a rate of 100 ML per hour, Cardizem infusion at 15 mg per hour, patient remains in atrial fibrillation with a rate of 123 permanent, room air pulse ox is 94%. She is on Zosyn for antibiotic coverage. She has had no fever or chills. Yesterday chest x-ray showed no pneumothorax following left subclavian central venous catheter placement. No altered mentation, patient is awake and alert, oriented 3, answering questions appropriately. Denies any worsening dyspnea, denies any chest pain, no significant cough or congestion, no abdominal pain, NG tube remains in place with scant amount of gastric drainage overnight. Today's labs have been reviewed, showing white blood cell count 6.4, hemoglobin of 8.7, sodium is 140, potassium is 2.7, chloride is 107, CO2 is 20, B1 is 29, and c reatinine is 2.59. She has had no nausea or vomiting. No diarrhea, no abdominal pain. Patient is producing urine in the order of 30-40 mL per hour. On 05/25/2020 patient seen in follow-up in the intensive care unit, she is resting comfortably in bed, she is awake and alert, oriented 3, answers questions appropriately, she is on 1 L of oxygen pulse ox of 96-100%. She denies any acute respiratory distress, she is on clear liquid diet, apparently she had one episode of vomiting yesterday. She has not had a bowel movement since 05/19/2020, abdomen is soft, nontender, surgical services are following, NG tube has been discontinued. Current drips include 0.9 normal saline at 20 ML per hour, amiodarone drip remains on a 0.5 mg/m, and levo fed is at 20 mics per minute. Remains in atrial fibrillation with a rate of 101 BPM. Today's lab work has been reviewed showing a hemoglobin of 9.1, white blood count is 5.8, sodium is 137, potassium is 4.4, chloride is 108, BUN is 37 creatinine is 3.40 patient is on Zosyn for antibiotic coverage, she is also on oral Xarelto for anticoagulation. Objective - Vital Signs Vital signs: Vital Signs Temp 98 F 05/25/20 08:00 Pulse 96 05/25/20 10:00 Resp 16 05/25/20 10:00 BP 0/0 05/24/20 16:00 Pulse Ox 100 05/25/20 10:00 Intake & Output 05/24/20 05/25/20 05/25/20 18:59 06:59 18:59 Intake Total 1271.646 941.808 302.764 Output Total 0 0 Balance 1271.646 941.808 302.764 Weight 82.6 kg 82.6 kg Intake: IV 521.2 592.6 144 A-line pressure bag 30 36 9 Amiodarone 300 mg In 75 Dextrose 5% in Water 250 ml @ 0.5 MG/MIN 25 mls/hr IV .Q10H [facility] Rx#: [id number] Amiodarone 300 mg In 250 75 Dextrose 5% in Water 250 ml @ 0.5 MG/MIN 25 mls/hr IV .Q10H [facility] Rx#: [id number] Amiodarone 360 mg In 166.2 66.6 Dextrose 5% in Water 200 ml @ 1 MG/MIN 33.333 mls/ hr IV .Q6H [facility] Rx#: [id number] Sodium Chloride 0.9% 1, 250 240 60 000 ml @ 50 mls/hr IV . Q20H [facility] Rx#:[id number] Intake, IV Titration 510.446 349.208 58.764 Amount Amiodarone 300 mg In 250 Dextrose 5% in Water 250 ml @ 0.5 MG/MIN 25 mls/hr IV .Q10H [facility] Rx#: [id number] Amiodarone 300 mg In 250 Dextrose 5% in Water 250 ml @ 0.5 MG/MIN 25 mls/hr IV .Q10H [facility] Rx#: [id number] Norepinephrine 32 mg In 260.446 99.208 58.764 Sodium Chloride 0.9% 218 ml @ 0.5 MCG/KG/MIN 19. 078 mls/hr IV .Q13H7M [facility] Rx#:[id number] Oral 240 100 Output: Urine 0 0 Other: # Voids 0 ABP, PAP, CO, CI - Last Documented Arterial Blood Pressure 107/48 - Exam GENERAL EXAM: Alert, very pleasant, 85-year-old white female, on 2 L of oxygen room air 96%, resting comfortably in bed, she is oriented 3, responding appropriately, she is currently having hemodialysis treatment done comfortable in no apparent distress. HEAD: Normocephalic/atraumatic. EYES: Normal reaction of pupils, equal size. Conjunctiva pink, sclera white. NOSE: Clear with pink turbinates. THROAT: No erythema or exudates. NECK: No masses, no JVD, no thyroid enlargement, no adenopathy. CHEST: No chest wall deformity. Symmetrical expansion. LUNGS: Equal air entry with no crackles, wheeze, rhonchi or dullness. CVS: Irregular rate and rhythm, normal S1 and S2, no gallops, no murmurs, no rubs ABDOMEN: Soft, nontender. No hepatosplenomegaly, normal bowel sounds, no guarding or rigidity. EXTREMITIES: No clubbing, 1+ lower extremity edema, no cyanosis, 2+ pulses and upper and lower extremities. MUSCULOSKELETAL: Muscle strength and tone normal. SPINE: No scoliosis or deformity SKIN: No rashes CENTRAL NERVOUS SYSTEM: Alert and oriented -3. No focal deficits, tone is normal in all 4 extremities. PSYCHIATRIC: Alert and oriented -3. Appropriate affect. Intact judgment and insight. - Labs CBC & Chem 7: 05/25/20 04:30 05/25/20 04:30 Labs: Abnormal Lab Results - Last 24 Hours (Table) 05/24/20 05/24/20 05/24/20 Range/Units 11:31 16:59 20:39 RBC (3.80-5.40) m/uL Hgb (11.4-16.0) gm/dL Hct (34.0-46.0) % MCV (80.0-100.0) fL MCH (25.0-35.0) pg MCHC (31.0-37.0) g/dL RDW (11.5-15.5) % Lymphocytes # (1.0-4.8) k/uL Macrocytosis Chloride (98-107) mmol/L BUN (7-17) mg/dL Creatinine (0.52-1.04) mg/dL Glucose (74-99) mg/dL POC Glucose (mg/dL) 145 H 135 H 140 H (75-99) mg/dL Calcium (8.4-10.2) mg/dL Total Bilirubin (0.2-1.3) mg/dL Total Protein (6.3-8.2) g/dL Albumin (3.5-5.0) g/dL 05/25/20 05/25/20 05/25/20 Range/Units 04:30 04:30 07:46 RBC 2.48 L (3.80-5.40) m/uL Hgb 9.1 L (11.4-16.0) gm/dL Hct 29.8 L (34.0-46.0) % MCV 120.0 H (80.0-100.0) fL MCH 36.7 H (25.0-35.0) pg MCHC 30.6 L (31.0-37.0) g/dL RDW 16.1 H (11.5-15.5) % Lymphocytes # 0.7 L (1.0-4.8) k/uL Macrocytosis Marked A Chloride 108 H (98-107) mmol/L BUN 37 H (7-17) mg/dL Creatinine 3.40 H (0.52-1.04) mg/dL Glucose 146 H (74-99) mg/dL POC Glucose (mg/dL) 133 H (75-99) mg/dL Calcium 8.3 L (8.4-10.2) mg/dL Total Bilirubin 1.7 H (0.2-1.3) mg/dL Total Protein 4.8 L (6.3-8.2) g/dL Albumin 2.3 L (3.5-5.0) g/dL Microbiology - Last 24 Hours (Table) 05/20/20 13:45 Blood Culture - Preliminary Blood No Growth after 96 hours Assessment and Plan Plan: Assessment: #1. Acute abdominal pain secondary to ileus versus partial bowel obstruction, and the patient with a history of previous bowel resection. NG Tube has been discontinued on 9 05/23/2020 #2. Hypovolemic hypotension in addition to septic shock related to urinary source, urine culture showed E. coli #3. Acute urinary tract infection, with the urine culture showing gram-negative bacilli, urine culture showed E. coli #4. A. fib with RVR, currently on amiodarone and Xarelto for anticoagulation #5. History of hypertension #6. End-stage renal disease on hemodialysis #7. History of anemia heart disease #8. History of pulmonary hypertension #9. History of DVT with previous Toyin filter placement #10. History of GERD #11. History of valvular heart disease and pulmonary hypertension Plan: Continue weaning vasopressor support, will obtain serum cortisone level, and TSH level, his labs have been reviewed, continue same antibiotics, she is tolerating clear liquid diet although she did have an episode of vomiting, maintain aspiration precautions, monitor for increased abdominal pain and tenderness, surgical services are following. No worsening dyspnea. We'll continue to closely monitor any ICU. I performed a history & physical examination of the patient and discussed their management with my nurse practitioner, Ava Gaxiola. I reviewed the nurse practitioner's note and agree with the documented findings and plan of care. Lung sounds are positive for clear breath sounds. The findings and the impression was discussed with the patient. I attest to the documentation by the nurse practitioner. Time with Patient: Less than 30
[2020-05-25 12:02] LABS: Glucose,Whole Blood 109 mg/dL (75-99)
[2020-05-25] MEDS: DARBEPOETIN ALFA 40 MCG/0.4 ML SYRINGE SQ SCH (12:19)
[2020-05-25] MEDS: AMIODARONE 200 MG TAB PO SCH ×2 (12:54→21:25)
[2020-05-25] MEDS: MIDODRINE 5 MG TAB PO SCH ×2 (12:54→17:00)
--- NOTE | 2020-05-25 14:47 | P.PN ---
Subjective Progress Note Date: 05/25/20 This is a pleasant 85-year-old female who follows regularly with Dr. May in the office. She has a history of persistent atrial fibrillation, hypertension, diabetes, coronary artery disease, diastolic congestive heart failure, DVT, end- stage renal disease on hemodialysis. Presented to the hospital with symptoms of abdominal discomfort with associated nausea vomiting and poor appetite. was found to have ileus versus partial bowel obstruction. She had an NG tube placed which was discontinued 2 days ago. Patient still having some nausea, no vomiting today. They are attempting to feed the patient, if she is able to keep down food and drink, we will change all of her medications over to oral. She has not yet had a bowel movement. She continues to be on amiodarone drip at 0.5 mg/m as well as some legal. Continues to be in atrial fibrillation with a heart rate of 1-110. Hemoglobin today 9.1, white blood cell count 5.8, sodium 137, potassium 4.4, BUN 37 and creatinine 3.4. Overall she feels well, just feeling a little weak today. Breathing is stable. Objective - Vital Signs Vital signs: Vital Signs Temp 97 F L 05/25/20 12:30 Pulse 89 05/25/20 12:30 Resp 16 05/25/20 12:30 BP 0/0 05/24/20 16:00 Pulse Ox 96 05/25/20 12:30 Intake & Output 05/24/20 05/25/20 05/25/20 18:59 06:59 18:59 Intake Total 1271.646 941.808 596.764 Output Total 0 0 Balance 1271.646 941.808 596.764 Weight 82.6 kg 82.6 kg Intake: IV 521.2 592.6 288 A-line pressure bag 30 36 18 Amiodarone 300 mg In 75 Dextrose 5% in Water 250 ml @ 0.5 MG/MIN 25 mls/hr IV .Q10H [facility] Rx#: [id number] Amiodarone 300 mg In 250 150 Dextrose 5% in Water 250 ml @ 0.5 MG/MIN 25 mls/hr IV .Q10H [facility] Rx#: [id number] Amiodarone 360 mg In 166.2 66.6 Dextrose 5% in Water 200 ml @ 1 MG/MIN 33.333 mls/ hr IV .Q6H [facility] Rx#: [id number] Sodium Chloride 0.9% 1, 250 240 120 000 ml @ 50 mls/hr IV . Q20H [facility] Rx#:[id number] Intake, IV Titration 510.446 349.208 58.764 Amount Amiodarone 300 mg In 250 Dextrose 5% in Water 250 ml @ 0.5 MG/MIN 25 mls/hr IV .Q10H [facility] Rx#: [id number] Amiodarone 300 mg In 250 Dextrose 5% in Water 250 ml @ 0.5 MG/MIN 25 mls/hr IV .Q10H [facility] Rx#: [id number] Norepinephrine 32 mg In 260.446 99.208 58.764 Sodium Chloride 0.9% 218 ml @ 0.5 MCG/KG/MIN 19. 078 mls/hr IV .Q13H7M [facility] Rx#:[id number] Oral 240 250 Output: Urine 0 0 Other: # Voids 0 ABP, PAP, CO, CI - Last Documented Arterial Blood Pressure 107/44 - Exam PHYSICAL EXAMINATION: GENERAL: 85-year-old female, resting comfortably in bed, in no acute distress at the time of my examination this morning HEENT: Head is atraumatic, normocephalic. Pupils equal, round. Sclera anicteric. Conjunctiva are clear. Mucous membranes of the mouth are moist. Neck is supple. There is no elevated jugular venous pressure. No carotid b ruit is heard. HEART EXAMINATION: S1 and S2 irregularly irregular a systolic murmur is heard CHEST EXAMINATION: Lungs are clear to auscultation and precussion. No chest wall tenderness is noted on palpation or with deep breathing. ABDOMEN: Soft, nontender. Bowel sounds are heard. No organomegaly noted. EXTREMITIES: 2+ peripheral pulses with no evidence of peripheral edema and no calf tenderness noted. NEUROLOGIC [patient is awake, alert and oriented 3 . - Labs CBC & Chem 7: 05/25/20 04:30 05/25/20 04:30 Labs: Abnormal Lab Results - Last 24 Hours (Table) 05/24/20 05/24/20 05/25/20 Range/Units 16:59 20:39 04:30 RBC 2.48 L (3.80-5.40) m/uL Hgb 9.1 L (11.4-16.0) gm/dL Hct 29.8 L (34.0-46.0) % MCV 120.0 H (80.0-100.0) fL MCH 36.7 H (25.0-35.0) pg MCHC 30.6 L (31.0-37.0) g/dL RDW 16.1 H (11.5-15.5) % Lymphocytes # 0.7 L (1.0-4.8) k/uL Macrocytosis Marked A Chloride (98-107) mmol/L BUN (7-17) mg/dL Creatinine (0.52-1.04) mg/dL Glucose (74-99) mg/dL POC Glucose (mg/dL) 135 H 140 H (75-99) mg/dL Calcium (8.4-10.2) mg/dL Total Bilirubin (0.2-1.3) mg/dL Total Protein (6.3-8.2) g/dL Albumin (3.5-5.0) g/dL 05/25/20 05/25/20 05/25/20 Range/Units 04:30 07:46 12:01 RBC (3.80-5.40) m/uL Hgb (11.4-16.0) gm/dL Hct (34.0-46.0) % MCV (80.0-100.0) fL MCH (25.0-35.0) pg MCHC (31.0-37.0) g/dL RDW (11.5-15.5) % Lymphocytes # (1.0-4.8) k/uL Macrocytosis Chloride 108 H (98-107) mmol/L BUN 37 H (7-17) mg/dL Creatinine 3.40 H (0.52-1.04) mg/dL Glucose 146 H (74-99) mg/dL POC Glucose (mg/dL) 133 H 109 H (75-99) mg/dL Calcium 8.3 L (8.4-10.2) mg/dL Total Bilirubin 1.7 H (0.2-1.3) mg/dL Total Protein 4.8 L (6.3-8.2) g/dL Albumin 2.3 L (3.5-5.0) g/dL Microbiology - Last 24 Hours (Table) 10/14/20 13:45 Blood Culture - Preliminary Blood No Growth after 96 hours Assessment and Plan Plan: Assessment and plan #1 acute abdominal pain secondary to ileus versus partial bowel obstruction. #2 hypotension in addition to septic shock related to acute UTI , urine culture showed E. coli #3 persistent atrial fibrillation, on Xarelto for anticoagulation #4 hypertension #5 end-stage renal disease on hemodialysis #6 pulmonary hypertension #7 history of DVT with prior [place] filter #8 chronic diastolic congestive heart failure, echo performed May 18 revealed an ejection fraction of 50-55%, LA severely dilated, mild aortic stenosis, moderate mitral regurg, moderate tricuspid regurg. Plan If the patient is able to take oral medications, we will discontinue the IV amiodarone and table cover folder to oral. Continue the rest of her medications including Xarelto 10 mg daily. DNP note has been reviewed, I agree with a documented findings and plan of care. Patient was seen and examined.
[2020-05-25] MEDS: MORPHINE SULFATE 2 MG/ML SYRINGE IVP PRN (14:50)
[2020-05-25 17:07] LABS: Glucose,Whole Blood 143 mg/dL (75-99)
--- NOTE | 2020-05-25 18:57 | P.PN ---
Subjective Progress Note Date: 05/25/20 Trina Carrillo, is an 85-year-old female who presented to [facility] emergency room with a chief complaint of dizziness and lightheadedness and generalized weakness, patient has a known history of end-stage renal disease on hemodialysis Monday and Monday, chronic systolic congestive heart failure, chronic atrial fibrillation, pulmonary hypertension, and valvular heart disease with aortic stenosis and severe tricuspid regurgitation, severe mitral regurgitation. Patient stated that her symptoms started when she returned from hemodialysis on Monday she also started developing some nausea and vomiting. She was also complaining of some episodes of chest pain and she decided to come to emergency room. patient was evaluated in emergency room her vital examination on presentat ion reveals a temperature of 98 pulse 52 respiration 20 blood pressure 94/63 pulse ox 98% on room air, laboratory data was significant for slightly elevated white blood count of 12.5 hemoglobin 10.4 and platelet count of 191 sodium was 132 potassium 3.5 chloride 92 BUN 25 creatinine 3.34 glucose 125 normal liver enzymes with slightly elevated alkaline phosphatase and normal lipase, EKG done in the emergency room revealed atrial fibrillation with nonspecific ST and T wave abnormalities, patient was admitted to telemetry floor for further evaluation and treatment echocardiogram and carotid Doppler were ordered, cardiology consultation and nephrology consultation were requested. Patient was seen and examined on the telemetry floor, she is complaining of nausea, and generalized weakness, and dizziness otherwise she denies any complaints at this time there is no fever or chills, no headache no chest pain no shortness of breath no cough no vomiting no diarrhea no blood in the stools no burning with urination no frequency or urgency and no hematuria. On 05/18/2020 patient was seen and examined on the medical floor she is alert and oriented 3 in no apparent distress, she is complaining of nausea and occasional vomiting there is no fever or chills no headache or dizziness, no chest pain no shortness of breath no cough there is mild discomfort in the abdomen no diarrhea no blood in the stools no burning with urination no frequency or urgency and no hematuria. Abdomen x-ray is showing evidence of partial small bowel obstruction at this time patient will be kept nothing by mouth consultation for Dr. Vuong was initiated patient is well known to him he operated on her abdomen in the past. n 05/19/2020 patient was seen and examined on the medical floor she is alert and oriented 3 in no distress at this time she has NG tube in to suction she is feeling better with less abdominal pain otherwise she denies any complaints there is no fever or chills no headache or dizziness no chest pain no shortness of breath no cough no nausea or vomiting no burning with urination no frequency or urgency and no hematuria On 05/20/2020 patient is alert and oriented 3. Patient having low blood pressure and elevated heart rate. Patient has been ordered to transfer to the ICU. ICU nurse currently at bedside and midline has been placed. Critical care doctor Jen has ordered patient to be started on Levophed for pressure support at this time. Lactic acid did come back slightly elevated at 2.1. Blood cultures have been ordered Dr. Berman has been consulted. Blood pressure has im proved to 120s. Patient remains with NG tube dissection surgery is following. Per nephrology plans for hemodialysis today due to low blood pressure. Patient will be transferred to the intensive care unit for closer monitoring critical care and infectious disease consult placed at this time patient is alert and oriented. Patient reports that she did feel out of it when her pressure was low but has improved. Patient denies any chest pain or shortness of breath. Patient denies nausea vomiting or diarrhea. Patient denies any urinary burning or frequency. Per urology services also consulted and patient started on Zosyn. On 05/21/2020 patient was seen and examined in the ICU she is alert and oriented 3 in no apparent distress she is receiving hemodialysis at this time, NG tube is in to suction, she is complaining of pain in her hips otherwise she denies any complaints there is no fever or chills no headache or dizziness no chest pain no shortness of breath no cough no nausea or vomiting no abdominal pain no diarrhea no blood in the stools no burning with urination no frequency or urgency and no hematuria On 05/22/2020 patient remains in the intensive care unit alert and oriented currently getting hemodialysis. Patient remains on Levophed for pressure support. Potassium low at 2.7 placed per protocol per nursing staff. This time patient denies chest pain or shortness breath. Patient denies nausea vomiting or diarrhea. Patient denies any urinary burning or frequency. On 05/23/2020 patient was seen and examined in the intensive care unit, she is alert and oriented 3 in no apparent distress she is answering questions appropriately, NG tube has been removed, she states that she is passing some gas, no bowel movements, she is still complaining of some abdominal discomfort and pain otherwise she denies any complaints there is no fever or chills no headache or dizziness no chest pain no shortness of breath no cough no nausea or vomiting no diarrhea no blood in the stools no burning with urination no frequency or urgency and no hematuria On 05/24/2020 patient was seen and examined in the ICU she is alert and oriented 3 in no distress there is no fever or chills no headache or dizziness no chest pain no shortness of breath no cough no nausea or vomiting no abdominal pain no diarrhea no blood in the stools no burning with urination no frequency or urge ncy and no hematuria NG tube has been removed shouldn't is receiving clear liquid diet she has passed some gas but had no bowel movement yet she is feeling better she is maintained on oxygen via nasal cannula and tolerating well. On 05/25/2020 patient was seen and examined in the ICU she is alert and oriented 3 in no apparent distress, she is complaining of generalized weakness otherwise she denies any complaints at this time there is no fever or chills no headache or dizziness no chest pain no shortness of breath no cough no nausea or vomiting no abdominal pain no diarrhea and no urinary symptoms Objective - Vital Signs Vital signs: Vital Signs Temp 98 F 05/25/20 08:00 Pulse 108 H 05/25/20 08:00 Resp 14 05/25/20 08:00 BP 0/0 05/24/20 16:00 Pulse Ox 100 05/25/20 08:00 Intake & Output 05/24/20 05/25/20 05/25/20 18:59 06:59 18:59 Intake Total 1271.646 941.808 96 Output Total 0 0 Balance 1271.646 941.808 96 Weight 82.6 kg Intake: IV 521.2 592.6 96 A-line pressure bag 30 36 6 Amiodarone 300 mg In 75 Dextrose 5% in Water 250 ml @ 0.5 MG/MIN 25 mls/hr IV .Q10H [facility] Rx#: [id number] Amiodarone 300 mg In 250 50 Dextrose 5% in Water 250 ml @ 0.5 MG/MIN 25 mls/hr IV .Q10H [facility] Rx#: [id number] Amiodarone 360 mg In 166.2 66.6 Dextrose 5% in Water 200 ml @ 1 MG/MIN 33.333 mls/ hr IV .Q6H ONE Rx#: [id number] Sodium Chloride 0.9% 1, 250 240 40 000 ml @ 50 mls/hr IV . Q20H [facility] Rx#:[id number] Intake, IV Titration 510.446 349.208 Amount Amiodarone 300 mg In 250 Dextrose 5% in Water 250 ml @ 0.5 MG/MIN 25 mls/hr IV .Q10H [facility] Rx#: [id number] Amiodarone 300 mg In 250 Dextrose 5% in Water 250 ml @ 0.5 MG/MIN 25 mls/hr IV .Q10H [facility] Rx#: [id number] Norepinephrine 32 mg In 260.446 99.208 Sodium Chloride 0.9% 218 ml @ 0.5 MCG/KG/MIN 19. 078 mls/hr IV .Q13H7M [facility] Rx#:[id number] Oral 240 Output: Urine 0 0 Other: # Voids 0 ABP, PAP, CO, CI - Last Documented Arterial Blood Pressure 108/49 - Exam in general patient is alert and oriented 3 in no apparent distress HEENT head normocephalic and atraumatic Neck is supple no JVD no goiter no lymphadenopathy Chest exam reveals a few scattered crackles bilaterally no wheezing Cardiac exam reveals regular heart sounds S1 and S2 no gallops no murmurs Abdomen is soft with tenderness in the epigastric area no organomegaly no palpable masses was normal bowel sounds Extremity exam reveals 1+ edema bilaterally no cyanosis or clubbing Neurological examination reveals no gross focal deficit - Labs CBC & Chem 7: 05/25/20 04:30 05/25/20 04:30 Labs: Abnormal Lab Results - Last 24 Hours (Table) 05/24/20 05/24/20 05/24/20 Range/Units 11:31 16:59 20:39 RBC (3.80-5.40) m/uL Hgb (11.4-16.0) gm/dL Hct (34.0-46.0) % MCV (80.0-100.0) fL MCH (25.0-35.0) pg MCHC (31.0-37.0) g/dL RDW (11.5-15.5) % Lymphocytes # (1.0-4.8) k/uL Macrocytosis Chloride (98-107) mmol/L BUN (7-17) mg/dL Creatinine (0.52-1.04) mg/dL Glucose (74-99) mg/dL POC Glucose (mg/dL) 145 H 135 H 140 H (75-99) mg/dL Calcium (8.4-10.2) mg/dL Total Bilirubin (0.2-1.3) mg/dL Total Protein (6.3-8.2) g/dL Albumin (3.5-5.0) g/dL 05/25/20 05/25/20 05/25/20 Range/Units 04:30 04:30 07:46 RBC 2.48 L (3.80-5.40) m/uL Hgb 9.1 L (11.4-16.0) gm/dL Hct 29.8 L (34.0-46.0) % MCV 120.0 H (80.0-100.0) fL MCH 36.7 H (25.0-35.0) pg MCHC 30.6 L (31.0-37.0) g/dL RDW 16.1 H (11.5-15.5) % Lymphocytes # 0.7 L (1.0-4.8) k/uL Macrocytosis Marked A Chloride 108 H (98-107) mmol/L BUN 37 H (7-17) mg/dL Creatinine 3.40 H (0.52-1.04) mg/dL Glucose 146 H (74-99) mg/dL POC Glucose (mg/dL) 133 H (75-99) mg/dL Calcium 8.3 L (8.4-10.2) mg/dL Total Bilirubin 1.7 H (0.2-1.3) mg/dL Total Protein 4.8 L (6.3-8.2) g/dL Albumin 2.3 L (3.5-5.0) g/dL Microbiology - Last 24 Hours (Table) 05/20/20 13:45 Blood Culture - Preliminary Blood No Growth after 96 hours Assessment and Plan Plan: 1. Partial mechanical small bowel obstruction with symptoms of nausea vomiting and generalized weakness and dizziness, cause is unclear, will check abdomen ultrasound. Surgical surfaces are following continue NG tube for decompression per surgical services. 2. Underlying history of end-stage renal disease on hemodialysis, nephrology consultation requested 3. Underlying history of chronic systolic congestive heart failure without evidence of exacerbation at this time. 2-D echo completed showing EF of 50-55%. Cardiology services consulted 4. Underlying history of chronic persistent atrial fibrillation 5. Underlying history of pulmonary hypertension 6. Underlying history of valvular heart disease 7. underlying history of diabetes mellitus 8. Hypotension. Blood pressure dropping to the 70s. Patient received 2 IV boluses. Patient has been ordered to transfer to intensive care unit and Levophed has been ordered per critical care. 9. Sepsis with Elevated lactic acid. Lactic acid 2.1. Patient started on Zosyn, blood culture ordered and infectious disease clinical program consultant, urinalysis is positive for urinary tract infection urine culture is positive for E. coli blood culture negative so far. 10. Hypokalemia correcteded Patient was transferred to the intensive care unit yesterday Critical care, infectious disease, nephrology, cardiology and surgical services following Patient started on IV Zosyn and blood culture ordered Prognosis is guarded due to age and multiple underlying morbidities.
[2020-05-25] MEDS: ONDANSETRON 4 MG/2 ML VIAL IVP PRN (19:57)
[2020-05-25 21:22] LABS: Glucose,Whole Blood 136 mg/dL (75-99)
--- NOTE | 2020-05-26 00:26 | PN ---
PROGRESS NOTE DATE OF SERVICE: 05/25/2020 REASON FOR FOLLOWUP: UTI, ileus and a question abdominal sepsis. INTERVAL HISTORY: The patient is currently afebrile. The patient is more awake and alert. The patient is breathing comfortably. Denies having any chest pain. No shortness of breath or cough. Abdominal pain has improved. No further nausea or vomiting. Started a clear liquid diet. No diarrhea. PHYSICAL EXAMINATION: Her blood pressure is 104/48 with a pulse of 102, temperature is 98. General description is an elderly female lying in bed in no distress. RESPIRATORY SYSTEM: Unlabored breathing, decreased breath sounds at the bases. No wheeze. HEART: S1, S2. Regular rate and rhythm. ABDOMEN: Soft, no tenderness. LABS: Hemoglobin 9.1, white count 5.8, BUN of 37, creatinine 3.40. Urine with E coli. Blood culture has been negative. DIAGNOSTIC IMPRESSION AND PLAN: Patient with Escherichia coli urinary tract infection and ileus seem to have responded to medical therapy. Patient covered with Rocephin 1 gram daily to continue and monitor clinical course closely. MMODL / IJN: [id number] /
[2020-05-26 05:05] LABS: Anisocytosis Slight; Basophils % (A) 0 %; Eosinophils # (A) 0.1 k/uL (0-0.7); Eosinophils % (A) 1 %; HCT 29.4 % (34.0-46.0); HGB 9.1 gm/dL (11.4-16.0); Hypochromasia Marked; Lymphocytes # (A) 0.8 k/uL (1.0-4.8); Lymphocytes % (A) 10 %; MCH 37.4 pg (25.0-35.0); MCHC 30.8 g/dL (31.0-37.0); MCV 121.4 fL (80.0-100.0); Mean Platelet Volume 9.1; Monocytes # (A) 0.4 k/uL (0-1.0); Monocytes % (A) 5 %; Neutrophils # (A) 6.8 k/uL (1.3-7.7); Neutrophils % (A) 82 %; Platelet Count 167 k/uL (150-450); RBC 2.42 m/uL (3.80-5.40); WBC 8.3 k/uL (3.8-10.6)
[2020-05-26 05:24] LABS: Albumin 2.1 g/dL (3.5-5.0); Calcium 8.3 mg/dL (8.4-10.2); Potassium 3.8 mmol/L (3.5-5.1); Total Bilirubin 1.5 mg/dL (0.2-1.3); Total Protein 4.6 g/dL (6.3-8.2)
[2020-05-26 05:29] LABS: Macrocytosis Marked
[2020-05-26] MEDS: SODIUM CHLORIDE 0.9% 1,000 ML IV SCH (05:39)
[2020-05-26] MEDS ORDERED: POTASSIUM CHLORIDE 20 MEQ in WATER FOR INJECTION 1 100ML.BAG IVPB STA (05:51)
[2020-05-26 06:47] LABS: Glucose,Whole Blood 121 mg/dL (75-99)
[2020-05-26] MEDS: BRIMONIDINE TARTRATE 0.2% DROPS 5 ML BTL BOTH EYES SCH ×2 (06:58→20:59)
[2020-05-26] MEDS: MIDODRINE 5 MG TAB PO SCH ×3 (06:58→17:16)
[2020-05-26] MEDS: DORZOLAMIDE HCL 2% DROPS 10 ML BTL BOTH EYES SCH ×2 (06:59→20:59)
[2020-05-26] MEDS: METOPROLOL TARTRATE 12.5 MG TAB PO SCH (07:58)
[2020-05-26] MEDS: AMIODARONE 200 MG TAB PO SCH ×3 (07:58→20:58)
[2020-05-26] MEDS: RIVAROXABAN 10 MG TAB PO SCH (08:29)
[2020-05-26] MEDS: CALCIUM ACETATE 667 MG TAB PO SCH ×3 (08:29→17:16)
[2020-05-26] MEDS: TORSEMIDE 20 MG TAB PO SCH (08:29)
[2020-05-26] MEDS: HYDROCORTISONE SUCCINATE 100 MG/2 ML VIAL IV SCH ×4 (08:48→23:48)
[2020-05-26] MEDS ORDERED: METOPROLOL TARTRATE 12.5 MG TAB PO STA (09:12)
--- NOTE | 2020-05-26 09:51 | P.PN ---
Subjective Patient is seen in follow-up for end-stage renal disease. She is maintained on hemodialysis on Monday schedule. Currently on full liquid diet. Remains on Levophed but on a lower dose compared to yesterday. No chest pain or shortness of breath. Vital signs are stable. General: The patient appeared well nourished and normally developed. HEENT: Head exam is unremarkable. Neck is without jugular venous distension. LUNGS: Breath sounds decreased. HEART: Irregular rate and rhythm. ABDOMEN: Soft, nontender. EXTREMITITES: 2+ edema. Objective - Vital Signs Vital signs: Vital Signs Temp 97.7 F 05/26/20 08:00 Pulse 114 H 05/26/20 09:00 Resp 21 05/26/20 09:00 BP 118/50 05/25/20 14:45 Pulse Ox 98 05/26/20 09:00 Intake & Output 05/25/20 05/26/20 05/26/20 18:59 06:59 18:59 Intake Total 1419.445 338.558 280.719 Output Total 1225 0 Balance 194.445 338.558 280.719 Weight 82.6 kg 91.2 kg Intake: IV 501 276 69 A-line pressure bag 36 36 9 Amiodarone 300 mg In 175 Dextrose 5% in Water 250 ml @ 0.5 MG/MIN 25 mls/hr IV .Q10H [facility] Rx#: [id number] Sodium Chloride 0.9% 1, 240 240 60 000 ml @ 20 mls/hr IV . Q24H [facility] Rx#:[id number] cefTRIAXone 1 gm In 50 Sodium Chloride 0.9% 50 ml @ 100 mls/hr IVPB Q24H [facility] Rx#:[id number] Intake, IV Titration 118.445 62.558 11.719 Amount Norepinephrine 32 mg In 118.445 62.558 11.719 Sodium Chloride 0.9% 218 ml @ 0.5 MCG/KG/MIN 19. 078 mls/hr IV .Q13H7M [facility] Rx#:[id number] Oral 800 200 Output: Urine 150 0 Post Void Residual 75 Hemodialysis 1000 Other: # Voids 0 ABP, PAP, CO, CI - Last Documented Arterial Blood Pressure 93/45 - Labs CBC & Chem 7: 05/26/20 04:50 05/26/20 04:50 Labs: Abnormal Lab Results - Last 24 Hours (Table) 05/25/20 05/25/20 05/25/20 Range/Units 12:01 17:04 21:20 RBC (3.80-5.40) m/uL Hgb (11.4-16.0) gm/dL Hct (34.0-46.0) % MCV (80.0-100.0) fL MCH (25.0-35.0) pg MCHC (31.0-37.0) g/dL RDW (11.5-15.5) % Lymphocytes # (1.0-4.8) k/uL Macrocytosis Chloride (98-107) mmol/L BUN (7-17) mg/dL Creatinine (0.52-1.04) mg/dL Glucose (74-99) mg/dL POC Glucose (mg/dL) 109 H 143 H 136 H (75-99) mg/dL Calcium (8.4-10.2) mg/dL Total Bilirubin (0.2-1.3) mg/dL Total Protein (6.3-8.2) g/dL Albumin (3.5-5.0) g/dL 05/26/20 05/26/20 05/26/20 Range/Units 04:50 04:50 06:46 RBC 2.42 L (3.80-5.40) m/uL Hgb 9.1 L (11.4-16.0) gm/dL Hct 29.4 L (34.0-46.0) % MCV 121.4 H (80.0-100.0) fL MCH 37.4 H (25.0-35.0) pg MCHC 30.8 L (31.0-37.0) g/dL RDW 16.0 H (11.5-15.5) % Lymphocytes # 0.8 L (1.0-4.8) k/uL Macrocytosis Marked A Chloride 112 H (98-107) mmol/L BUN 23 H (7-17) mg/dL Creatinine 2.19 H (0.52-1.04) mg/dL Glucose 131 H (74-99) mg/dL POC Glucose (mg/dL) 121 H (75-99) mg/dL Calcium 8.3 L (8.4-10.2) mg/dL Total Bilirubin 1.5 H (0.2-1.3) mg/dL Total Protein 4.6 L (6.3-8.2) g/dL Albumin 2.1 L (3.5-5.0) g/dL Microbiology - Last 24 Hours (Table) 05/20/20 13:45 Blood Culture - Preliminary Blood No Growth after 120 hours Assessment and Plan Plan: Assessment: 1. End-stage renal disease maintained on hemodialysis on Monday schedule. 2. Small bowel obstruction. Currently on full liquid diet. 3. A. fib with RVR maintained on amiodarone. 4. Hypotension maintained on Levophed. Also on midodrine. 5. E. coli UTI maintain on antibiotics. 6. Chronic kidney disease mineral bone disease maintained on PhosLo. 7. Chronic diastolic CHF with mild to moderate mitral and tricuspid regurgitation. 8. Moderate pulmonary hypertension. 9. Edema secondary to hypoalbuminemia, ckd. 10. Anemia of chronic kidney disease maintained on Aranesp. Plan: Hemodialysis tomorrow with increased UF. Wean Levophed. Diet to be advanced surgery.
--- NOTE | 2020-05-26 09:55 | P.PN ---
Subjective Progress Note Date: 05/26/20 This is a pleasant 85-year-old female who follows regularly with Dr. May in the office. She has a history of persistent atrial fibrillation, hypertension, diabetes, coronary artery disease, diastolic congestive heart failure, DVT, end- stage renal disease on hemodialysis. Presented to the hospital with symptoms of abdominal discomfort with associated nausea vomiting and poor appetite. was found to have ileus versus partial bowel obstruction. She had an NG tube placed which was discontinued 2 days ago. Patient still having some nausea, no vomiting today. They are attempting to feed the patient, if she is able to keep down food and drink, we will change all of her medications over to oral. She has not yet had a bowel movement. She continues to be on amiodarone drip at 0.5 mg/m as well as some legal. Continues to be in atrial fibrillation with a heart rate of 1-110. Hemoglobin today 9.1, white blood cell count 5.8, sodium 137, potassium 4.4, BUN 37 and creatinine 3.4. Overall she feels well, just feeling a little weak today. Breathing is stable. 05/26/2020 Seen and examined this morning, overall feeling significantly better. She is keeping down fluids and light food. Her blood pressure this morning 93/40, heart rate in the 1 teens to 130s. She is currently on levo, which is being attempted to wean. We will increase her dose of beta vilma today for more optimal heart rate control. Laboratory data from today, white blood cell count 8.3, hemoglobin 9.1, platelet count 167. Objective - Vital Signs Vital signs: Vital Signs Temp 97.7 F 05/26/20 08:00 Pulse 114 H 05/26/20 09:00 Resp 21 05/26/20 09:00 BP 118/50 05/25/20 14:45 Pulse Ox 98 05/26/20 09:00 Intake & Output 05/25/20 05/26/20 05/26/20 18:59 06:59 18:59 Intake Total 1419.445 338.558 280.719 Output Total 1225 0 Balance 194.445 338.558 280.719 Weight 82.6 kg 91.2 kg Intake: IV 501 276 69 A-line pressure bag 36 36 9 Amiodarone 300 mg In 175 Dextrose 5% in Water 250 ml @ 0.5 MG/MIN 25 mls/hr IV .Q10H [facility] Rx#: [id number] Sodium Chloride 0.9% 1, 240 240 60 000 ml @ 20 mls/hr IV . Q24H [facility] Rx#:[id number] cefTRIAXone 1 gm In 50 Sodium Chloride 0.9% 50 ml @ 100 mls/hr IVPB Q24H [facility] Rx#:[id number] Intake, IV Titration 118.445 62.558 11.719 Amount Norepinephrine 32 mg In 118.445 62.558 11.719 Sodium Chloride 0.9% 218 ml @ 0.5 MCG/KG/MIN 19. 078 mls/hr IV .Q13H7M [facility] Rx#:[id number] Oral 800 200 Output: Urine 150 0 Post Void Residual 75 Hemodialysis 1000 Other: # Voids 0 ABP, PAP, CO, CI - Last Documented Arterial Blood Pressure 93/45 - Exam PHYSICAL EXAMINATION: GENERAL: 85-year-old female, resting comfortably in bed, in no acute distress at the time of my examination this morning HEENT: Head is atraumatic, normocephalic. Pupils equal, round. Sclera anicteric. Conjunctiva are clear. Mucous membranes of the mouth are moist. Neck is supple. There is no elevated jugular venous pressure. No carotid bruit is heard. HEART EXAMINATION: S1 and S2 irregularly irregular a systolic murmur is heard CHEST EXAMINATION: Lungs are clear to auscultation and precussion. No chest wall tenderness is noted on palpation or with deep breathing. ABDOMEN: Soft, nontender. Bowel sounds are heard. No organomegaly noted. EXTREMITIES: 2+ peripheral pulses with no evidence of peripheral edema and no calf tenderness noted. NEUROLOGIC [patient is awake, alert and oriented 3 . - Labs CBC & Chem 7: 05/26/20 04:50 05/26/20 04:50 Labs: Abnormal Lab Results - Last 24 Hours (Table) 05/25/20 05/25/20 05/25/20 Range/Units 12:01 17:04 21:20 RBC (3.80-5.40) m/uL Hgb (11.4-16.0) gm/dL Hct (34.0-46.0) % MCV (80.0-100.0) fL MCH (25.0-35.0) pg MCHC (31.0-37.0) g/dL RDW (11.5-15.5) % Lymphocytes # (1.0-4.8) k/uL Macrocytosis Chloride (98-107) mmol/L BUN (7-17) mg/dL Creatinine (0.52-1.04) mg/dL Glucose (74-99) mg/dL POC Glucose (mg/dL) 109 H 143 H 136 H (75-99) mg/dL Calcium (8.4-10.2) mg/dL Total Bilirubin (0.2-1.3) mg/dL Total Protein (6.3-8.2) g/dL Albumin (3.5-5.0) g/dL 05/26/20 05/26/20 05/26/20 Range/Units 04:50 04:50 06:46 RBC 2.42 L (3.80-5.40) m/uL Hgb 9.1 L (11.4-16.0) gm/dL Hct 29.4 L (34.0-46.0) % MCV 121.4 H (80.0-100.0) fL MCH 37.4 H (25.0-35.0) pg MCHC 30.8 L (31.0-37.0) g/dL RDW 16.0 H (11.5-15.5) % Lymphocytes # 0.8 L (1.0-4.8) k/uL Macrocytosis Marked A Chloride 112 H (98-107) mmol/L BUN 23 H (7-17) mg/dL Creatinine 2.19 H (0.52-1.04) mg/dL Glucose 131 H (74-99) mg/dL POC Glucose (mg/dL) 121 H (75-99) mg/dL Calcium 8.3 L (8.4-10.2) mg/dL Total Bilirubin 1.5 H (0.2-1.3) mg/dL Total Protein 4.6 L (6.3-8.2) g/dL Albumin 2.1 L (3.5-5.0) g/dL Microbiology - Last 24 Hours (Table) 05/20/20 13:45 Blood Culture - Preliminary Blood No Growth after 120 hours Assessment and Plan Plan: Assessment and plan #1 acute abdominal pain secondary to ileus versus partial bowel obstruction. #2 hypotension in addition to septic shock related to acute UTI , urine culture showed E. coli #3 persistent atrial fibrillation, on Xarelto for anticoagulation #4 hypertension #5 end-stage renal disease on hemodialysis #6 pulmonary hypertension #7 history of DVT with prior Toyin filter #8 chronic diastolic congestive heart failure, echo performed May 18 revealed an ejection fraction of 50-55%, LA severely dilated, mild aortic stenosis, moderate mitral regurg, moderate tricuspid regurg. Plan from cardiology's perspective, we will increase dose of metoprolol to 25 mg one tablet by mouth twice a day continue to attempt to wean off the levo fed. DNP note has been reviewed, I agree with a documented findings and plan of care. Patient was seen and examined.
--- NOTE | 2020-05-26 10:09 | P.PN ---
Subjective Progress Note Date: 05/26/20 Principal diagnosis: Acute ileus, end-stage renal disease, atrial fibrillation with RVR This is a very pleasant 85-year-old female patient who follows with Dr. Owen as her primary care provider. She has history of atrial fibrillation anticoagulated with Xarelto, poor vision, hypertension, diabetes mellitus, coronary artery disease, congestive heart failure, DVT, end-stage renal disease and on hemodialysis Monday since October 2019. She is a lifelong nonsmoker. She presented here on 05/16/2020 with complaints of abdominal discomfort and nausea and vomiting, poor appetite. She has been compliant with her dialysis treatments. CAT scan of the abdomen and pelvis revealed multiple fluid-filled small bowel loops. The appeared dilated.: Contains fluid and some fecal debris. Correlate for ileus. Partial small bowel obstruction not identified. Previous surgical changes with anastomosis appear chronic. Multiple ill-defined hypodensities scattered throughout the liver which appeared to have increased compared to 2017. She has been seen and evaluated by surgical services. Nasogastric tube has been placed. See well on the regular medical floor she developed hypotension and an A was called. She been transferred to the intensive care unit where consulted for the same. She has received 1-1/2 L of fluid resuscitation. She is initiated on norepinephrine currently at 0.16 mcg/kg/m. Blood cultures and urine cultures are pending. Right upper extremity midline placed. She remains awake and alert in no acute distress. Maintaining O2 saturations in the 90s on room air. She is in A. fib with RVR. She has been initiated on Zosyn. Reevaluated today on 05/21/20, patient remains in the ICU, remains on norepinephrine at 0.13 mcg/kg/m, IV fluid is at 100 mL/h, patient is on room air with O2 saturation of 95%. Cardizem was added today for her atrial fibrillation with RVR, and she is in atrial fibrillation with a rate of 144. Cardiology recommended oral metoprolol, however the patient has a nasogastric tube, and it is on continuous suction, patient lost her midline today, and I had to place a right subclavian central line for norepinephrine drip. Patient denies any shortness of breath, no cough, no wheezing, her abdominal pain and discomfort seems to be improved and better compared to the last 24 hours, nasogastric tube remains on suction. Patient is afebrile, urinalysis is showing evidence of hematuria and bacteriuria as well as pyuria. Will empirically place the patient on antibiotics in the form of Zosyn for now. Urine culture is pending. On 05/22/2020 patient seen in follow-up in the intensive care unit, she is cu rrently having dialysis with the goal of removal of 2 L of fluid blood pressure permitting. Room air pulse ox is 89-90%. Urine culture is showing gram- negative bacilli, final cultures pending, blood culture has shown no growth thus far. Patient remains on 13 mics per minute of Levophed, 0.9 normal saline at a rate of 100 ML per hour, Cardizem infusion at 15 mg per hour, patient remains in atrial fibrillation with a rate of 123 permanent, room air pulse ox is 94%. She is on Zosyn for antibiotic coverage. She has had no fever or chills. Yesterday chest x-ray showed no pneumothorax following left subclavian central venous catheter placement. No altered mentation, patient is awake and alert, oriented 3, answering questions appropriately. Denies any worsening dyspnea, denies any chest pain, no significant cough or congestion, no abdominal pain, NG tube remains in place with scant amount of gastric drainage overnight. Today's labs have been reviewed, showing white blood cell count 6.4, hemoglobin of 8.7, sodium is 140, potassium is 2.7, chloride is 107, CO2 is 20, B1 is 29, and c reatinine is 2.59. She has had no nausea or vomiting. No diarrhea, no abdominal pain. Patient is producing urine in the order of 30-40 mL per hour. On 05/25/2020 patient seen in follow-up in the intensive care unit, she is resting comfortably in bed, she is awake and alert, oriented 3, answers questions appropriately, she is on 1 L of oxygen pulse ox of 96-100%. She denies any acute respiratory distress, she is on clear liquid diet, apparently she had one episode of vomiting yesterday. She has not had a bowel movement since 05/19/2020, abdomen is soft, nontender, surgical services are following, NG tube has been discontinued. Current drips include 0.9 normal saline at 20 ML per hour, amiodarone drip remains on a 0.5 mg/m, and levo fed is at 20 mics per minute. Remains in atrial fibrillation with a rate of 101 BPM. Today's lab work has been reviewed showing a hemoglobin of 9.1, white blood count is 5.8, sodium is 137, potassium is 4.4, chloride is 108, BUN is 37 creatinine is 3.40 patient is on Zosyn for antibiotic coverage, she is also on oral Xarelto for anticoagulation. On 05/26/2020 patient seen in follow-up in the intensive care unit, she remains on vasopressor support, currently at 10 mics per minute of norepinephrine, point tenderness sitting is infusing at 20 ML per hour, altered mentation, patient is awake and oriented oriented 3, denies any acute distress, no worsening dyspnea, breathing pre-comfortably, she is on room air with a pulse ox of 96%, she has been upgraded to full liquid diet, and she is tolerating it well so far, no nausea or vomiting, abdomen is soft, she has not had a bowel movement yet but she is passing a lot of gas. Urgent call services are following. Lungs are diminished, no rhonchi, no wheezes, no rales, pulse ox of 97% on room air. Patient had hemodialysis yesterday and had 1 L of fluid removed, still has some additional generalized edema in bilateral lower extremities and upper extremities as well. She is on Rocephin urinary tract infection with a urine culture showing E. coli, blood culture has shown no growth. His labs have been reviewed, showing white blood cell count of 8.3, hemoglobin is 9.1, sodium is 140, potassium is 3.8, chloride is 112, BUN is 23 creatinine is 2.19 Objective - Vital Signs Vital signs: Vital Signs Temp 97.7 F 05/26/20 08:00 Pulse 114 H 05/26/20 09:00 Resp 21 05/26/20 09:00 BP 118/50 05/25/20 14:45 Pulse Ox 98 05/26/20 09:00 Intake & Output 05/25/20 05/26/20 05/26/20 18:59 06:59 18:59 Intake Total 1419.445 338.558 280.719 Output Total 1225 0 Balance 194.445 338.558 280.719 Weight 82.6 kg 91.2 kg Intake: IV 501 276 69 A-line pressure bag 36 36 9 Amiodarone 300 mg In 175 Dextrose 5% in Water 250 ml @ 0.5 MG/MIN 25 mls/hr IV .Q10H [facility] Rx#: [id number] Sodium Chloride 0.9% 1, 240 240 60 000 ml @ 20 mls/hr IV . Q24H [facility] Rx#:[id number] cefTRIAXone 1 gm In 50 Sodium Chloride 0.9% 50 ml @ 100 mls/hr IVPB Q24H [facility] Rx#:[id number] Intake, IV Titration 118.445 62.558 11.719 Amount Norepinephrine 32 mg In 118.445 62.558 11.719 Sodium Chloride 0.9% 218 ml @ 0.5 MCG/KG/MIN 19. 078 mls/hr IV .Q13H7M [facility] Rx#:[id number] Oral 800 200 Output: Urine 150 0 Post Void Residual 75 Hemodialysis 1000 Other: # Voids 0 ABP, PAP, CO, CI - Last Documented Arterial Blood Pressure 93/45 - Exam GENERAL EXAM: Alert, very pleasant, 85-year-old white female, on room air with pulse ox of 96-98% resting comfortably in bed, she is oriented 3, responding appropriately, she is currently having hemodialysis treatment done comfortable in no apparent distress. HEAD: Normocephalic/atraumatic. EYES: Normal reaction of pupils, equal size. Conjunctiva pink, sclera white. NOSE: Clear with pink turbinates. THROAT: No erythema or exudates. NECK: No masses, no JVD, no thyroid enlargement, no adenopathy. CHEST: No chest wall deformity. Symmetrical expansion. LUNGS: Equal air entry with no crackles, wheeze, rhonchi or dullness. CVS: Irregular rate and rhythm, normal S1 and S2, no gallops, no murmurs, no rubs ABDOMEN: Soft, nontender. No hepatosplenomegaly, normal bowel sounds, no gua rding or rigidity. EXTREMITIES: No clubbing, 1+ lower extremity edema, no cyanosis, 2+ pulses and upper and lower extremities. MUSCULOSKELETAL: Muscle strength and tone normal. SPINE: No scoliosis or deformity SKIN: No rashes CENTRAL NERVOUS SYSTEM: Alert and oriented -3. No focal deficits, tone is normal in all 4 extremities. PSYCHIATRIC: Alert and oriented -3. Appropriate affect. Intact judgment and insight. - Labs CBC & Chem 7: 05/26/20 04:50 05/26/20 04:50 Labs: Abnormal Lab Results - Last 24 Hours (Table) 05/25/20 05/25/20 05/25/20 Range/Units 12:01 17:04 21:20 RBC (3.80-5.40) m/uL Hgb (11.4-16.0) gm/dL Hct (34.0-46.0) % MCV (80.0-100.0) fL MCH (25.0-35.0) pg MCHC (31.0-37.0) g/dL RDW (11.5-15.5) % Lymphocytes # (1.0-4.8) k/uL Macrocytosis Chloride (98-107) mmol/L BUN (7-17) mg/dL Creatinine (0.52-1.04) mg/dL Glucose (74-99) mg/dL POC Glucose (mg/dL) 109 H 143 H 136 H (75-99) mg/dL Calcium (8.4-10.2) mg/dL Total Bilirubin (0.2-1.3) mg/dL Total Protein (6.3-8.2) g/dL Albumin (3.5-5.0) g/dL 05/26/20 05/26/20 05/26/20 Range/Units 04:50 04:50 06:46 RBC 2.42 L (3.80-5.40) m/uL Hgb 9.1 L (11.4-16.0) gm/dL Hct 29.4 L (34.0-46.0) % MCV 121.4 H (80.0-100.0) fL MCH 37.4 H (25.0-35.0) pg MCHC 30.8 L (31.0-37.0) g/dL RDW 16.0 H (11.5-15.5) % Lymphocytes # 0.8 L (1.0-4.8) k/uL Macrocytosis Marked A Chloride 112 H (98-107) mmol/L BUN 23 H (7-17) mg/dL Creatinine 2.19 H (0.52-1.04) mg/dL Glucose 131 H (74-99) mg/dL POC Glucose (mg/dL) 121 H (75-99) mg/dL Calcium 8.3 L (8.4-10.2) mg/dL Total Bilirubin 1.5 H (0.2-1.3) mg/dL Total Protein 4.6 L (6.3-8.2) g/dL Albumin 2.1 L (3.5-5.0) g/dL Microbiology - Last 24 Hours (Table) 05/20/20 13:45 Blood Culture - Preliminary Blood No Growth after 120 hours Assessment and Plan Plan: Assessment: #1. Acute abdominal pain secondary to ileus versus partial bowel obstruction, and the patient with a history of previous bowel resection. NG Tube has been discontinued on 05/23/2020, and today on 05/26/2020 patient is tolerating oral intake, no nausea or vomiting, passing gas #2. Hypovolemic hypotension in addition to septic shock related to urinary source, urine culture showed E. coli, and today on 05/26/2020 patient is still on vasopressor support, decreasing in dose #3. Acute urinary tract infection, with the urine culture showing gram-negative bacilli, urine culture showed E. coli #4. A. fib with RVR, currently on amiodarone and Xarelto for anticoagulation #5. History of hypertension #6. End-stage renal disease on hemodialysis #7. History of anemia heart disease #8. History of pulmonary hypertension #9. History of DVT with previous [place] filter placement #10. History of GERD #11. History of valvular heart disease and pulmonary hypertension Plan: Patient remains persistently hypotensive, rate still requiring vasopressor support, we will add hydrocortisone 50 mg every 6 hours IV, serum cortisol level has been noted, TSH has been noted. Clinically doing well, no altered mentation, no difficulty breathing, she is tolerating oral diet, no nausea vomiting, passing gas, no stool yet. Continue on same antibiotics. Continue weaning vasopressor support, continue to monitor in ICU. I performed a history & physical examination of the patient and discussed their management with my nurse practitioner, Ava Gaxiola. I reviewed the nurse practitioner's note and agree with the documented findings and plan of care. Lung sounds are positive for clear breath sounds. The findings and the impression was discussed with the patient. I attest to the documentation by the nurse practitioner. Time with Patient: Less than 30
[2020-05-26] MEDS: NYSTATIN 100,000 UNIT/ML SUSP 500,000 UNIT/5 ML CUP PO SCH ×4 (11:30→21:35)
[2020-05-26 12:02] LABS: Glucose,Whole Blood 126 mg/dL (75-99)
[2020-05-26] MEDS: NOREPINEPHRINE 32 MG in SODIUM CHLORIDE 0.9% 218 ML IV SCH ×2 (12:55→23:52)
--- NOTE | 2020-05-26 12:56 | P.PN ---
Subjective Progress Note Date: 05/26/20 CHIEF COMPLAINT: Abdominal pain with nausea and vomiting HISTORY OF PRESENT ILLNESS: Patient seen and examined with Dr. Martinez. Patient remains in the ICU. Patient is currently still requiring Levophed. Cardiology has switched her amiodarone to oral. Patient did have hemodialysis yesterday. She denies any abdominal pain. She is passing gas. Denies any nausea or vomiting. She is tolerating full liquid diet. She is afebrile WBC 8.3 PHYSICAL EXAM: VITAL SIGNS: Reviewed. GENERAL: Well-developed in no acute distress. HEENT: No sclera icterus. Extraocular movements grossly intact. Moist buccal mucosa. Head is atraumatic, normocephalic. ABDOMEN: Soft nondistended NEUROLOGIC: Alert and oriented. Cranial nerves II through XII grossly intact. ASSESSMENT: 1. Ileus 2. Multiple ill-defined hypodensities scattered throughout the liver noted on CAT scan 3. UTI PLAN: -Advance diet to a Soft -Continue antibiotic for UTI Physician Manager Equipment note has been reviewed by physician. Signing provider agrees with the documented findings, assessment, and plan of care. Objective - Vital Signs Vital signs: Vital Signs Temp 97.7 F 05/26/20 08:00 Pulse 90 05/26/20 11:00 Resp 20 05/26/20 11:00 BP 118/50 05/25/20 14:45 Pulse Ox 96 05/26/20 11:00 Intake & Output 05/25/20 05/26/20 05/26/20 18:59 06:59 18:59 Intake Total 1419.445 338.558 336.005 Output Total 1225 0 Balance 194.445 338.558 336.005 Weight 82.6 kg 91.2 kg Intake: IV 501 276 115 A-line pressure bag 36 36 15 Amiodarone 300 mg In 175 Dextrose 5% in Water 250 ml @ 0.5 MG/MIN 25 mls/hr IV .Q10H [facility] Rx#: [id number] Sodium Chloride 0.9% 1, 240 240 100 000 ml @ 20 mls/hr IV . Q24H [facility] Rx#:[id number] cefTRIAXone 1 gm In 50 Sodium Chloride 0.9% 50 ml @ 100 mls/hr IVPB Q24H [facility] Rx#:[id number] Intake, IV Titration 118.445 62.558 21.005 Amount Norepinephrine 32 mg In 118.445 62.558 21.005 Sodium Chloride 0.9% 218 ml @ 0.5 MCG/KG/MIN 19. 078 mls/hr IV .Q13H7M [facility] Rx#:[id number] Oral 800 200 Output: Urine 150 0 Post Void Residual 75 Hemodialysis 1000 Other: # Voids 0 ABP, PAP, CO, CI - Last Documented Arterial Blood Pressure 114/56 - Labs CBC & Chem 7: 05/26/20 04:50 05/26/20 04:50 Labs: Abnormal Lab Results - Last 24 Hours (Table) 05/25/20 05/25/20 05/26/20 Range/Units 17:04 21:20 04:50 RBC 2.42 L (3.80-5.40) m/uL Hgb 9.1 L (11.4-16.0) gm/dL Hct 29.4 L (34.0-46.0) % MCV 121.4 H (80.0-100.0) fL MCH 37.4 H (25.0-35.0) pg MCHC 30.8 L (31.0-37.0) g/dL RDW 16.0 H (11.5-15.5) % Lymphocytes # 0.8 L (1.0-4.8) k/uL Macrocytosis Marked A Chloride (98-107) mmol/L BUN (7-17) mg/dL Creatinine (0.52-1.04) mg/dL Glucose (74-99) mg/dL POC Glucose (mg/dL) 143 H 136 H (75-99) mg/dL Calcium (8.4-10.2) mg/dL Total Bilirubin (0.2-1.3) mg/dL Total Protein (6.3-8.2) g/dL Albumin (3.5-5.0) g/dL 05/26/20 05/26/20 05/26/20 Range/Units 04:50 06:46 12:00 RBC (3.80-5.40) m/uL Hgb (11.4-16.0) gm/dL Hct (34.0-46.0) % MCV (80.0-100.0) fL MCH (25.0-35.0) pg MCHC (31.0-37.0) g/dL RDW (11.5-15.5) % Lymphocytes # (1.0-4.8) k/uL Macrocytosis Chloride 112 H (98-107) mmol/L BUN 23 H (7-17) mg/dL Creatinine 2.19 H (0.52-1.04) mg/dL Glucose 131 H (74-99) mg/dL POC Glucose (mg/dL) 121 H 126 H (75-99) mg/dL Calcium 8.3 L (8.4-10.2) mg/dL Total Bilirubin 1.5 H (0.2-1.3) mg/dL Total Protein 4.6 L (6.3-8.2) g/dL Albumin 2.1 L (3.5-5.0) g/dL Microbiology - Last 24 Hours (Table) 05/20/20 13:45 Blood Culture - Preliminary Blood No Growth after 120 hours
[2020-05-26 17:19] LABS: Glucose,Whole Blood 158 mg/dL (75-99)
--- NOTE | 2020-05-26 18:27 | P.PN ---
Subjective Progress Note Date: 05/26/20 Trina Carrillo, is an 85-year-old female who presented to [facility] emergency room with a chief complaint of dizziness and lightheadedness and generalized weakness, patient has a known history of end-stage renal disease on hemodialysis Monday and Monday, chronic systolic congestive heart failure, chronic atrial fibrillation, pulmonary hypertension, and valvular heart disease with aortic stenosis and severe tricuspid regurgitation, severe mitral regurgitation. Patient stated that her symptoms started when she returned from hemodialysis on Monday she also started developing some nausea and vomiting. She was also complaining of some episodes of chest pain and she decided to come to emergency room. patient was evaluated in emergency room her vital examination on presentat ion reveals a temperature of 98 pulse 52 respiration 20 blood pressure 94/63 pulse ox 98% on room air, laboratory data was significant for slightly elevated white blood count of 12.5 hemoglobin 10.4 and platelet count of 191 sodium was 132 potassium 3.5 chloride 92 BUN 25 creatinine 3.34 glucose 125 normal liver enzymes with slightly elevated alkaline phosphatase and normal lipase, EKG done in the emergency room revealed atrial fibrillation with nonspecific ST and T wave abnormalities, patient was admitted to telemetry floor for further evaluation and treatment echocardiogram and carotid Doppler were ordered, cardiology consultation and nephrology consultation were requested. Patient was seen and examined on the telemetry floor, she is complaining of nausea, and generalized weakness, and dizziness otherwise she denies any complaints at this time there is no fever or chills, no headache no chest pain no shortness of breath no cough no vomiting no diarrhea no blood in the stools no burning with urination no frequency or urgency and no hematuria. On 05/18/2020 patient was seen and examined on the medical floor she is alert and oriented 3 in no apparent distress, she is complaining of nausea and occasional vomiting there is no fever or chills no headache or dizziness, no chest pain no shortness of breath no cough there is mild discomfort in the abdomen no diarrhea no blood in the stools no burning with urination no frequency or urgency and no hematuria. Abdomen x-ray is showing evidence of partial small bowel obstruction at this time patient will be kept nothing by mouth consultation for Dr. Vuong was initiated patient is well known to him he operated on her abdomen in the past. n 05/19/2020 patient was seen and examined on the medical floor she is alert and oriented 3 in no distress at this time she has NG tube in to suction she is feeling better with less abdominal pain otherwise she denies any complaints there is no fever or chills no headache or dizziness no chest pain no shortness of breath no cough no nausea or vomiting no burning with urination no frequency or urgency and no hematuria On 05/20/2020 patient is alert and oriented 3. Patient having low blood pressure and elevated heart rate. Patient has been ordered to transfer to the ICU. ICU nurse currently at bedside and midline has been placed. Critical care doctor Jen has ordered patient to be started on Levophed for pressure support at this time. Lactic acid did come back slightly elevated at 2.1. Blood cultures have been ordered Dr. Berman has been consulted. Blood pressure has im proved to 120s. Patient remains with NG tube dissection surgery is following. Per nephrology plans for hemodialysis today due to low blood pressure. Patient will be transferred to the intensive care unit for closer monitoring critical care and infectious disease consult placed at this time patient is alert and oriented. Patient reports that she did feel out of it when her pressure was low but has improved. Patient denies any chest pain or shortness of breath. Patient denies nausea vomiting or diarrhea. Patient denies any urinary burning or frequency. Per urology services also consulted and patient started on Zosyn. On 05/21/2020 patient was seen and examined in the ICU she is alert and oriented 3 in no apparent distress she is receiving hemodialysis at this time, NG tube is in to suction, she is complaining of pain in her hips otherwise she denies any complaints there is no fever or chills no headache or dizziness no chest pain no shortness of breath no cough no nausea or vomiting no abdominal pain no diarrhea no blood in the stools no burning with urination no frequency or urgency and no hematuria On 05/22/2020 patient remains in the intensive care unit alert and oriented currently getting hemodialysis. Patient remains on Levophed for pressure support. Potassium low at 2.7 placed per protocol per nursing staff. This time patient denies chest pain or shortness breath. Patient denies nausea vomiting or diarrhea. Patient denies any urinary burning or frequency. On 05/23/2020 patient was seen and examined in the intensive care unit, she is alert and oriented 3 in no apparent distress she is answering questions appropriately, NG tube has been removed, she states that she is passing some gas, no bowel movements, she is still complaining of some abdominal discomfort and pain otherwise she denies any complaints there is no fever or chills no headache or dizziness no chest pain no shortness of breath no cough no nausea or vomiting no diarrhea no blood in the stools no burning with urination no frequency or urgency and no hematuria On 05/24/2020 patient was seen and examined in the ICU she is alert and oriented 3 in no distress there is no fever or chills no headache or dizziness no chest pain no shortness of breath no cough no nausea or vomiting no abdominal pain no diarrhea no blood in the stools no burning with urination no frequency or urge ncy and no hematuria NG tube has been removed shouldn't is receiving clear liquid diet she has passed some gas but had no bowel movement yet she is feeling better she is maintained on oxygen via nasal cannula and tolerating well. On 05/25/2020 patient was seen and examined in the ICU she is alert and oriented 3 in no apparent distress, she is complaining of generalized weakness otherwise she denies any complaints at this time there is no fever or chills no headache or dizziness no chest pain no shortness of breath no cough no nausea or vomiting no abdominal pain no diarrhea and no urinary symptoms. On 05/26/2020 patient was seen and examined in the ICU she is alert and oriented in no distress she is maintained on oxygen via nasal cannula she is still on a small dose of Levophed for pressure support, there is no fever or chills no headache or dizziness no chest pain no shortness of breath no cough no nausea or vomiting no abdominal pain no diarrhea no burning with urination no frequency or urgency and no hematuria Objective - Vital Signs Vital signs: Vital Signs Temp 98.0 F 05/26/20 12:00 Pulse 87 05/26/20 14:00 Resp 16 05/26/20 14:00 BP 118/50 05/25/20 14:45 Pulse Ox 98 05/26/20 14:00 Intake & Output 05/25/20 05/26/20 05/26/20 18:59 06:59 18:59 Intake Total 1419.445 338.558 392.886 Output Total 1225 0 Balance 194.445 338.558 392.886 Weight 82.6 kg 91.2 kg Intake: IV 501 276 161 A-line pressure bag 36 36 21 Amiodarone 300 mg In 175 Dextrose 5% in Water 250 ml @ 0.5 MG/MIN 25 mls/hr IV .Q10H [facility] Rx#: [id number] Sodium Chloride 0.9% 1, 240 240 140 000 ml @ 20 mls/hr IV . Q24H [facility] Rx#:[id number] cefTRIAXone 1 gm In 50 Sodium Chloride 0.9% 50 ml @ 100 mls/hr IVPB Q24H [facility] Rx#:[id number] Intake, IV Titration 118.445 62.558 31.886 Amount Norepinephrine 32 mg In 118.445 62.558 31.886 Sodium Chloride 0.9% 218 ml @ 0.5 MCG/KG/MIN 19. 078 mls/hr IV .Q13H7M [facility] Rx#:[id number] Oral 800 200 Output: Urine 150 0 Post Void Residual 75 Hemodialysis 1000 Other: # Voids 0 ABP, PAP, CO, CI - Last Documented Arterial Blood Pressure 114/57 - Exam in general patient is alert and oriented 3 in no apparent distress HEENT head normocephalic and atraumatic Neck is supple no JVD no goiter no lymphadenopathy Chest exam reveals a few scattered crackles bilaterally no wheezing Cardiac exam reveals regular heart sounds S1 and S2 no gallops no murmurs Abdomen is soft with tenderness in the epigastric area no organomegaly no palpable masses was normal bowel sounds Extremity exam reveals 1+ edema bilaterally no cyanosis or clubbing Neurological examination reveals no gross focal deficit - Labs CBC & Chem 7: 05/26/20 04:50 05/26/20 04:50 Labs: Abnormal Lab Results - Last 24 Hours (Table) 05/25/20 05/25/20 05/26/20 Range/Units 17:04 21:20 04:50 RBC 2.42 L (3.80-5.40) m/uL Hgb 9.1 L (11.4-16.0) gm/dL Hct 29.4 L (34.0-46.0) % MCV 121.4 H (80.0-100.0) fL MCH 37.4 H (25.0-35.0) pg MCHC 30.8 L (31.0-37.0) g/dL RDW 16.0 H (11.5-15.5) % Lymphocytes # 0.8 L (1.0-4.8) k/uL Macrocytosis Marked A Chloride (98-107) mmol/L BUN (7-17) mg/dL Creatinine (0.52-1.04) mg/dL Glucose (74-99) mg/dL POC Glucose (mg/dL) 143 H 136 H (75-99) mg/dL Calcium (8.4-10.2) mg/dL Total Bilirubin (0.2-1.3) mg/dL Total Protein (6.3-8.2) g/dL Albumin (3.5-5.0) g/dL 05/26/20 05/26/20 05/26/20 Range/Units 04:50 06:46 12:00 RBC (3.80-5.40) m/uL Hgb (11.4-16.0) gm/dL Hct (34.0-46.0) % MCV (80.0-100.0) fL MCH (25.0-35.0) pg MCHC (31.0-37.0) g/dL RDW (11.5-15.5) % Lymphocytes # (1.0-4.8) k/uL Macrocytosis Chloride 112 H (98-107) mmol/L BUN 23 H (7-17) mg/dL Creatinine 2.19 H (0.52-1.04) mg/dL Glucose 131 H (74-99) mg/dL POC Glucose (mg/dL) 121 H 126 H (75-99) mg/dL Calcium 8.3 L (8.4-10.2) mg/dL Total Bilirubin 1.5 H (0.2-1.3) mg/dL Total Protein 4.6 L (6.3-8.2) g/dL Albumin 2.1 L (3.5-5.0) g/dL Microbiology - Last 24 Hours (Table) 05/20/20 13:45 Blood Culture - Final Blood No Growth after 144 hours Assessment and Plan Plan: 1. Partial mechanical small bowel obstruction with symptoms of nausea vomiting and generalized weakness and dizziness, cause is unclear, will check abdomen ultrasound. Surgical surfaces are following continue NG tube for decompression per surgical services. 2. Underlying history of end-stage renal disease on hemodialysis, nephrology consultation requested 3. Underlying history of chronic systolic congestive heart failure without evidence of exacerbation at this time. 2-D echo completed showing EF of 50-55%. Cardiology services consulted 4. Underlying history of chronic persistent atrial fibrillation 5. Underlying history of pulmonary hypertension 6. Underlying history of valvular heart disease 7. underlying history of diabetes mellitus 8. Hypotension. Blood pressure dropping to the 70s. Patient received 2 IV boluses. Patient has been ordered to transfer to intensive care unit and Levophed has been ordered per critical care. 9. Sepsis with Elevated lactic acid. Lactic acid 2.1. Patient started on Zosyn, blood culture ordered and infectious disease franchise business consultant, urinalysis is positive for urinary tract infection urine culture is positive for E. coli blood culture negative so far. 10. Hypokalemia correcteded Patient was transferred to the intensive care unit yesterday Critical care, infectious disease, nephrology, cardiology and surgical services following Patient started on IV Zosyn and blood culture ordered Prognosis is guarded due to age and multiple underlying morbidities.
[2020-05-26] MEDS: METOPROLOL TARTRATE 25 MG TAB PO SCH (20:58)
[2020-05-26 21:53] LABS: Glucose,Whole Blood 164 mg/dL (75-99)
[2020-05-27 04:18] LABS: Basophils % (A) 0 %; Eosinophils % (A) 0 %; HCT 29.1 % (34.0-46.0); HGB 8.9 gm/dL (11.4-16.0); Hypochromasia Marked; Lymphocytes # (A) 0.7 k/uL (1.0-4.8); Lymphocytes % (A) 8 %; MCH 37.6 pg (25.0-35.0); MCHC 30.6 g/dL (31.0-37.0); Mean Platelet Volume 8.6; Monocytes # (A) 0.4 k/uL (0-1.0); Monocytes % (A) 4 %; Neutrophils # (A) 7.9 k/uL (1.3-7.7); Neutrophils % (A) 86 %; Platelet Count 156 k/uL (150-450); RBC 2.37 m/uL (3.80-5.40); WBC 9.1 k/uL (3.8-10.6)
[2020-05-27 04:19] LABS: Calcium 8.2 mg/dL (8.4-10.2); Potassium 4.5 mmol/L (3.5-5.1)
[2020-05-27 04:25] LABS: Macrocytosis Marked
[2020-05-27] MEDS: HYDROCORTISONE SUCCINATE 100 MG/2 ML VIAL IV SCH ×3 (06:48→18:55)
[2020-05-27] MEDS: MIDODRINE 5 MG TAB PO SCH ×3 (06:48→16:50)
[2020-05-27] MEDS: SODIUM CHLORIDE 0.9% 1,000 ML IV SCH (06:49)
[2020-05-27] MEDS: BRIMONIDINE TARTRATE 0.2% DROPS 5 ML BTL BOTH EYES SCH ×2 (06:49→20:45)
[2020-05-27] MEDS: DORZOLAMIDE HCL 2% DROPS 10 ML BTL BOTH EYES SCH ×2 (06:49→20:45)
[2020-05-27] MEDS: INSULIN ASPART (NovoLOG) 100 UNIT/ML VIAL SQ SCH ×4 (06:50→20:44)
[2020-05-27 06:55] LABS: Glucose,Whole Blood 143 mg/dL (75-99)
[2020-05-27] MEDS: CALCIUM ACETATE 667 MG TAB PO SCH ×3 (08:10→17:04)
[2020-05-27] MEDS: BENEFIBER PO SCH (08:12)
[2020-05-27] MEDS: METOPROLOL TARTRATE 25 MG TAB PO SCH ×2 (08:32→20:45)
[2020-05-27] MEDS: NYSTATIN 100,000 UNIT/ML SUSP 500,000 UNIT/5 ML CUP PO SCH ×4 (08:42→20:46)
--- NOTE | 2020-05-27 09:05 | P.PN ---
Subjective Progress Note Date: 05/27/20 This is a pleasant 85-year-old female who follows regularly with Dr. May in the office. She has a history of persistent atrial fibrillation, hypertension, diabetes, coronary artery disease, diastolic congestive heart failure, DVT, end- stage renal disease on hemodialysis. Presented to the hospital with symptoms of abdominal discomfort with associated nausea vomiting and poor appetite. was found to have ileus versus partial bowel obstruction. She had an NG tube placed which was discontinued 2 days ago. Patient still having some nausea, no vomiting today. They are attempting to feed the patient, if she is able to keep down food and drink, we will change all of her medications over to oral. She has not yet had a bowel movement. She continues to be on amiodarone drip at 0.5 mg/m as well as some legal. Continues to be in atrial fibrillation with a heart rate of 1-110. Hemoglobin today 9.1, white blood cell count 5.8, sodium 137, potassium 4.4, BUN 37 and creatinine 3.4. Overall she feels well, just feeling a little weak today. Breathing is stable. 05/26/2020 Seen and examined this morning, overall feeling significantly better. She is keeping down fluids and light food. Her blood pressure this morning 93/40, heart rate in the 1 teens to 130s. She is currently on levo, which is being attempted to wean. We will increase her dose of beta vilma today for more optimal heart rate control. Laboratory data from today, white blood cell count 8.3, hemoglobin 9.1, platelet count 167. 05/27/2020 Patient was seen and examined this morning, overall continuing to improve. Tolerating liquids and diet fairly well. She is undergoing dialysis this morning.I pressure 104/60 with a heart rate in the 80s to 90s, 100% on room air.White blood cell count 9.1, hemoglobin 8.9, platelet count 156. Sodium 138, potassium 4.5, BUN 31, creatinine 2.6. Objective - Vital Signs Vital signs: Vital Signs Temp 97.7 F 05/27/20 08:00 Pulse 99 05/27/20 08:00 Resp 13 05/27/20 08:00 BP 103/59 05/27/20 08:00 Pulse Ox 100 05/27/20 08:00 Intake & Output 05/26/20 05/27/20 05/27/20 18:59 06:59 18:59 Intake Total 1037.709 509.060 346 Output Total 0 0 0 Balance 1037.709 509.060 346 Weight 92.3 kg Intake: IV 299 256 46 A-line pressure bag 39 36 6 Sodium Chloride 0.9% 1, 260 220 40 000 ml @ 20 mls/hr IV . Q24H [facility] Rx#:[id number] Intake, IV Titration 38.709 3.060 Amount Norepinephrine 32 mg In 38.709 3.060 Sodium Chloride 0.9% 218 ml @ 0.5 MCG/KG/MIN 19. 078 mls/hr IV .Q13H7M [facility] Rx#:[id number] Oral 700 250 300 Output: Urine 0 0 0 Other: # Voids 1 ABP, PAP, CO, CI - Last Documented Arterial Blood Pressure 110/58 - Exam PHYSICAL EXAMINATION: GENERAL: 85-year-old female, resting comfortably in bed, in no acute distress at the time of my examination this morning HEENT: Head is atraumatic, normocephalic. Pupils equal, round. Sclera anicteric. Conjunctiva are clear. Mucous membranes of the mouth are moist. Neck is supple. There is no elevated jugular venous pressure. No carotid bruit is heard. HEART EXAMINATION: S1 and S2 irregularly irregular a systolic murmur is heard CHEST EXAMINATION: Lungs are clear to auscultation and precussion. No chest wall tenderness is noted on palpation or with deep breathing. ABDOMEN: Soft, nontender. Bowel sounds are heard. No organomegaly noted. EXTREMITIES: 2+ peripheral pulses with no evidence of peripheral edema and no calf tenderness noted. NEUROLOGIC [patient is awake, alert and oriented 3 . - Labs CBC & Chem 7: 05/27/20 04:00 05/27/20 04:00 Labs: Abnormal Lab Results - Last 24 Hours (Table) 05/26/20 05/26/20 05/26/20 Range/Units 12:00 17:18 21:50 RBC (3.80-5.40) m/uL Hgb (11.4-16.0) gm/dL Hct (34.0-46.0) % MCV (80.0-100.0) fL MCH (25.0-35.0) pg MCHC (31.0-37.0) g/dL RDW (11.5-15.5) % Neutrophils # (1.3-7.7) k/uL Lymphocytes # (1.0-4.8) k/uL Macrocytosis Chloride (98-107) mmol/L Carbon Dioxide (22-30) mmol/L BUN (7-17) mg/dL Creatinine (0.52-1.04) mg/dL Glucose (74-99) mg/dL POC Glucose (mg/dL) 126 H 158 H 164 H (75-99) mg/dL Calcium (8.4-10.2) mg/dL 05/27/20 05/27/20 05/27/20 Range/Units 04:00 04:00 06:53 RBC 2.37 L (3.80-5.40) m/uL Hgb 8.9 L (11.4-16.0) gm/dL Hct 29.1 L (34.0-46.0) % MCV 123.0 H (80.0-100.0) fL MCH 37.6 H (25.0-35.0) pg MCHC 30.6 L (31.0-37.0) g/dL RDW 16.0 H (11.5-15.5) % Neutrophils # 7.9 H (1.3-7.7) k/uL Lymphocytes # 0.7 L (1.0-4.8) k/uL Macrocytosis Marked A Chloride 111 H (98-107) mmol/L Carbon Dioxide 21 L (22-30) mmol/L BUN 31 H (7-17) mg/dL Creatinine 2.68 H (0.52-1.04) mg/dL Glucose 156 H (74-99) mg/dL POC Glucose (mg/dL) 143 H (75-99) mg/dL Calcium 8.2 L (8.4-10.2) mg/dL Microbiology - Last 24 Hours (Table) 05/20/20 13:45 Blood Culture - Final Blood No Growth after 144 hours Assessment and Plan Plan: Assessment and plan #1 acute abdominal pain secondary to ileus versus partial bowel obstruction. #2 hypotension in addition to septic shock related to acute UTI , urine culture showed E. coli #3 persistent atrial fibrillation, on Xarelto for anticoagulation #4 hypertension #5 end-stage renal disease on hemodialysis #6 pulmonary hypertension #7 history of DVT with prior Portal filter #8 chronic diastolic congestive heart failure, echo performed May 18 revealed an ejection fraction of 50-55%, LA severely dilated, mild aortic stenosis, moderate mitral regurg, moderate tricuspid regurg. Plan from cardiology's perspective,we will continue this patient on her current medications. She may transfer to the telemetry unit once cleared by critical care. DNP note has been reviewed, I agree with a documented findings and plan of care. Patient was seen and examined.
--- NOTE | 2020-05-27 09:05 | P.PN ---
Subjective Patient is seen in follow-up for end-stage renal disease. She is maintained on hemodialysis on Monday schedule. Tolerating dialysis well. She is now on dysphagia 3 chopped diet. Off vasopressors. No chest pain or shortness of breath. Vital signs are stable. General: The patient appeared well nourished and normally developed. HEENT: Head exam is unremarkable. Neck is without jugular venous distension. LUNGS: Breath sounds decreased. HEART: Irregular rate and rhythm. ABDOMEN: Soft, nontender. EXTREMITITES: 2+ edema. Objective - Vital Signs Vital signs: Vital Signs Temp 97.7 F 05/27/20 08:00 Pulse 99 05/27/20 08:00 Resp 13 05/27/20 08:00 BP 103/59 05/27/20 08:00 Pulse Ox 100 05/27/20 08:00 Intake & Output 05/26/20 05/27/20 05/27/20 18:59 06:59 18:59 Intake Total 1037.709 509.060 346 Output Total 0 0 0 Balance 1037.709 509.060 346 Weight 92.3 kg Intake: IV 299 256 46 A-line pressure bag 39 36 6 Sodium Chloride 0.9% 1, 260 220 40 000 ml @ 20 mls/hr IV . Q24H [facility] Rx#:[id number] Intake, IV Titration 38.709 3.060 Amount Norepinephrine 32 mg In 38.709 3.060 Sodium Chloride 0.9% 218 ml @ 0.5 MCG/KG/MIN 19. 078 mls/hr IV .Q13H7M [facility] Rx#:[id number] Oral 700 250 300 Output: Urine 0 0 0 Other: # Voids 1 ABP, PAP, CO, CI - Last Documented Arterial Blood Pressure 110/58 - Labs CBC & Chem 7: 05/27/20 04:00 05/27/20 04:00 Labs: Abnormal Lab Results - Last 24 Hours (Table) 05/26/20 05/26/20 05/26/20 Range/Units 12:00 17:18 21:50 RBC (3.80-5.40) m/uL Hgb (11.4-16.0) gm/dL Hct (34.0-46.0) % MCV (80.0-100.0) fL MCH (25.0-35.0) pg MCHC (31.0-37.0) g/dL RDW (11.5-15.5) % Neutrophils # (1.3-7.7) k/uL Lymphocytes # (1.0-4.8) k/uL Macrocytosis Chloride (98-107) mmol/L Carbon Dioxide (22-30) mmol/L BUN (7-17) mg/dL Creatinine (0.52-1.04) mg/dL Glucose (74-99) mg/dL POC Glucose (mg/dL) 126 H 158 H 164 H (75-99) mg/dL Calcium (8.4-10.2) mg/dL 05/27/20 05/27/20 05/27/20 Range/Units 04:00 04:00 06:53 RBC 2.37 L (3.80-5.40) m/uL Hgb 8.9 L (11.4-16.0) gm/dL Hct 29.1 L (34.0-46.0) % MCV 123.0 H (80.0-100.0) fL MCH 37.6 H (25.0-35.0) pg MCHC 30.6 L (31.0-37.0) g/dL RDW 16.0 H (11.5-15.5) % Neutrophils # 7.9 H (1.3-7.7) k/uL Lymphocytes # 0.7 L (1.0-4.8) k/uL Macrocytosis Marked A Chloride 111 H (98-107) mmol/L Carbon Dioxide 21 L (22-30) mmol/L BUN 31 H (7-17) mg/dL Creatinine 2.68 H (0.52-1.04) mg/dL Glucose 156 H (74-99) mg/dL POC Glucose (mg/dL) 143 H (75-99) mg/dL Calcium 8.2 L (8.4-10.2) mg/dL Microbiology - Last 24 Hours (Table) 05/20/20 13:45 Blood Culture - Final Blood No Growth after 144 hours Assessment and Plan Plan: Assessment: 1. End-stage renal disease maintained on hemodialysis on Monday schedule. 2. Small bowel obstruction. Currently on dysphagia 3 chopped diet. 3. A. fib with RVR maintained on amiodarone. 4. Hypotension, now off Levophed. On midodrine. 5. E. coli UTI maintain on antibiotics. 6. Chronic kidney disease mineral bone disease maintained on PhosLo. 7. Chronic diastolic CHF with mild to moderate mitral and tricuspid regurgitation. 8. Moderate pulmonary hypertension. 9. Edema secondary to hypoalbuminemia, ckd. 10. Anemia of chronic kidney disease maintained on Aranesp. Plan: Currently seen while undergoing hemodialysis. Will try for 2-1/2-3 L ultrafiltration as able to tolerate. Diet to be advanced surgery.
--- NOTE | 2020-05-27 09:10 | P.PN ---
Subjective Progress Note Date: 05/27/20 Principal diagnosis: Acute ileus, end-stage renal disease, atrial fibrillation with RVR This is a very pleasant 85-year-old female patient who follows with Dr. Owen as her primary care provider. She has history of atrial fibrillation anticoagulated with Xarelto, poor vision, hypertension, diabetes mellitus, coronary artery disease, congestive heart failure, DVT, end-stage renal disease and on hemodialysis Monday since October 2019. She is a lifelong nonsmoker. She presented here on 05/16/2020 with complaints of abdominal discomfort and nausea and vomiting, poor appetite. She has been compliant with her dialysis treatments. CAT scan of the abdomen and pelvis revealed multiple fluid-filled small bowel loops. The appeared dilated.: Contains fluid and some fecal debris. Correlate for ileus. Partial small bowel obstruction not identified. Previous surgical changes with anastomosis appear chronic. Multiple ill-defined hypodensities scattered throughout the liver which appeared to have increased compared to 2017. She has been seen and evaluated by surgical services. Nasogastric tube has been placed. See well on the regular medical floor she developed hypotension and an A was called. She been transferred to the intensive care unit where consulted for the same. She has received 1-1/2 L of fluid resuscitation. She is initiated on norepinephrine currently at 0.16 mcg/kg/m. Blood cultures and urine cultures are pending. Right upper extremity midline placed. She remains awake and alert in no acute distress. Maintaining O2 saturations in the 90s on room air. She is in A. fib with RVR. She has been initiated on Zosyn. Reevaluated today on 05/21/20, patient remains in the ICU, remains on norepinephrine at 0.13 mcg/kg/m, IV fluid is at 100 mL/h, patient is on room air with O2 saturation of 95%. Cardizem was added today for her atrial fibrillation with RVR, and she is in atrial fibrillation with a rate of 144. Cardiology recommended oral metoprolol, however the patient has a nasogastric tube, and it is on continuous suction, patient lost her midline today, and I had to place a right subclavian central line for norepinephrine drip. Patient denies any shortness of breath, no cough, no wheezing, her abdominal pain and discomfort seems to be improved and better compared to the last 24 hours, nasogastric tube remains on suction. Patient is afebrile, urinalysis is showing evidence of hematuria and bacteriuria as well as pyuria. Will empirically place the patient on antibiotics in the form of Zosyn for now. Urine culture is pending. On 05/22/2020 patient seen in follow-up in the intensive care unit, she is cu rrently having dialysis with the goal of removal of 2 L of fluid blood pressure permitting. Room air pulse ox is 89-90%. Urine culture is showing gram- negative bacilli, final cultures pending, blood culture has shown no growth thus far. Patient remains on 13 mics per minute of Levophed, 0.9 normal saline at a rate of 100 ML per hour, Cardizem infusion at 15 mg per hour, patient remains in atrial fibrillation with a rate of 123 permanent, room air pulse ox is 94%. She is on Zosyn for antibiotic coverage. She has had no fever or chills. Yesterday chest x-ray showed no pneumothorax following left subclavian central venous catheter placement. No altered mentation, patient is awake and alert, oriented 3, answering questions appropriately. Denies any worsening dyspnea, denies any chest pain, no significant cough or congestion, no abdominal pain, NG tube remains in place with scant amount of gastric drainage overnight. Today's labs have been reviewed, showing white blood cell count 6.4, hemoglobin of 8.7, sodium is 140, potassium is 2.7, chloride is 107, CO2 is 20, B1 is 29, and c reatinine is 2.59. She has had no nausea or vomiting. No diarrhea, no abdominal pain. Patient is producing urine in the order of 30-40 mL per hour. On 05/25/2020 patient seen in follow-up in the intensive care unit, she is resting comfortably in bed, she is awake and alert, oriented 3, answers questions appropriately, she is on 1 L of oxygen pulse ox of 96-100%. She denies any acute respiratory distress, she is on clear liquid diet, apparently she had one episode of vomiting yesterday. She has not had a bowel movement since 05/19/2020, abdomen is soft, nontender, surgical services are following, NG tube has been discontinued. Current drips include 0.9 normal saline at 20 ML per hour, amiodarone drip remains on a 0.5 mg/m, and levo fed is at 20 mics per minute. Remains in atrial fibrillation with a rate of 101 BPM. Today's lab work has been reviewed showing a hemoglobin of 9.1, white blood count is 5.8, sodium is 137, potassium is 4.4, chloride is 108, BUN is 37 creatinine is 3.40 patient is on Zosyn for antibiotic coverage, she is also on oral Xarelto for anticoagulation. On 05/26/2020 patient seen in follow-up in the intensive care unit, she remains on vasopressor support, currently at 10 mics per minute of norepinephrine, point tenderness sitting is infusing at 20 ML per hour, altered mentation, patient is awake and oriented oriented 3, denies any acute distress, no worsening dyspnea, breathing pre-comfortably, she is on room air with a pulse ox of 96%, she has been upgraded to full liquid diet, and she is tolerating it well so far, no nausea or vomiting, abdomen is soft, she has not had a bowel movement yet but she is passing a lot of gas. Urgent call services are following. Lungs are diminished, no rhonchi, no wheezes, no rales, pulse ox of 97% on room air. Patient had hemodialysis yesterday and had 1 L of fluid removed, still has some additional generalized edema in bilateral lower extremities and upper extremities as well. She is on Rocephin urinary tract infection with a urine culture showing E. coli, blood culture has shown no growth. His labs have been reviewed, showing white blood cell count of 8.3, hemoglobin is 9.1, sodium is 140, potassium is 3.8, chloride is 112, BUN is 23 creatinine is 2.19 On 05/27/2020 patient seen in follow-up in the intensive care unit, she is wake and alert, resting comfortably in bed, breathing comfortably, she is on room air with a pulse ox of 100%, levo fed has been on hold since midnight, blood pre ssure is 110/58, patient is having hemodialysis treatment today. Still has some generalized edema involving upper and lower extremities, but no difficulty breathing. No chest pain, she is in atrial fibrillation slightly tachycardic, at times rate is up in the 110-115 BPM range. IV fluids with 0.9 normal saline infusing at a rate of 20 ML per hour. Continues on stress doses of IV hydrocortisone for relative adrenal insufficiency, at 50 mg every 6 hours. Patient is on Rocephin for antibiotic coverage, urine culture showed E. coli. Today's labs have been reviewed, show a blood cell, 9.1, hemoglobin of 8.9, sodium is 138, potassium is 4.5, chloride is 111, CO2 is 21, BUN is 31 creatinine is 2.68 Objective - Vital Signs Vital signs: Vital Signs Temp 97.7 F 05/27/20 08:00 Pulse 99 05/27/20 08:00 Resp 13 05/27/20 08:00 BP 103/59 05/27/20 08:00 Pulse Ox 100 05/27/20 08:00 Intake & Output 05/26/20 05/27/20 05/27/20 18:59 06:59 18:59 Intake Total 1037.709 509.060 346 Output Total 0 0 0 Balance 1037.709 509.060 346 Weight 92.3 kg Intake: IV 299 256 46 A-line pressure bag 39 36 6 Sodium Chloride 0.9% 1, 260 220 40 000 ml @ 20 mls/hr IV . Q24H [facility] Rx#:[id number] Intake, IV Titration 38.709 3.060 Amount Norepinephrine 32 mg In 38.709 3.060 Sodium Chloride 0.9% 218 ml @ 0.5 MCG/KG/MIN 19. 078 mls/hr IV .Q13H7M [facility] Rx#:[id number] Oral 700 250 300 Output: Urine 0 0 0 Other: # Voids 1 ABP, PAP, CO, CI - Last Documented Arterial Blood Pressure 110/58 - Exam GENERAL EXAM: Alert, very pleasant, 85-year-old white female, on room air with pulse ox of 100% resting comfortably in bed, she is oriented 3, responding appropriately, she is currently having hemodialysis treatment done comfortable in no apparent distress. HEAD: Normocephalic/atraumatic. EYES: Normal reaction of pupils, equal size. Conjunctiva pink, sclera white. NOSE: Clear with pink turbinates. THROAT: No erythema or exudates. NECK: No masses, no JVD, no thyroid enlargement, no adenopathy. CHEST: No chest wall deformity. Symmetrical expansion. LUNGS: Equal air entry with no crackles, wheeze, rhonchi or dullness. CVS: Irregular rate and rhythm, normal S1 and S2, no gallops, no murmurs, no rubs ABDOMEN: Soft, nontender. No hepatosplenomegaly, normal bowel sounds, no guarding or rigidity. EXTREMITIES: No clubbing, 1+ lower extremity edema, no cyanosis, 2+ pulses and upper and lower extremities. MUSCULOSKELETAL: Muscle strength and tone normal. SPINE: No scoliosis or deformity SKIN: No rashes CENTRAL NERVOUS SYSTEM: Alert and oriented -3. No focal deficits, tone is nor mal in all 4 extremities. PSYCHIATRIC: Alert and oriented -3. Appropriate affect. Intact judgment and insight. - Labs CBC & Chem 7: 05/27/20 04:00 05/27/20 04:00 Labs: Abnormal Lab Results - Last 24 Hours (Table) 05/26/20 05/26/20 05/26/20 Range/Units 12:00 17:18 21:50 RBC (3.80-5.40) m/uL Hgb (11.4-16.0) gm/dL Hct (34.0-46.0) % MCV (80.0-100.0) fL MCH (25.0-35.0) pg MCHC (31.0-37.0) g/dL RDW (11.5-15.5) % Neutrophils # (1.3-7.7) k/uL Lymphocytes # (1.0-4.8) k/uL Macrocytosis Chloride (98-107) mmol/L Carbon Dioxide (22-30) mmol/L BUN (7-17) mg/dL Creatinine (0.52-1.04) mg/dL Glucose (74-99) mg/dL POC Glucose (mg/dL) 126 H 158 H 164 H (75-99) mg/dL Calcium (8.4-10.2) mg/dL 05/27/20 05/27/20 05/27/20 Range/Units 04:00 04:00 06:53 RBC 2.37 L (3.80-5.40) m/uL Hgb 8.9 L (11.4-16.0) gm/dL Hct 29.1 L (34.0-46.0) % MCV 123.0 H (80.0-100.0) fL MCH 37.6 H (25.0-35.0) pg MCHC 30.6 L (31.0-37.0) g/dL RDW 16.0 H (11.5-15.5) % Neutrophils # 7.9 H (1.3-7.7) k/uL Lymphocytes # 0.7 L (1.0-4.8) k/uL Macrocytosis Marked A Chloride 111 H (98-107) mmol/L Carbon Dioxide 21 L (22-30) mmol/L BUN 31 H (7-17) mg/dL Creatinine 2.68 H (0.52-1.04) mg/dL Glucose 156 H (74-99) mg/dL POC Glucose (mg/dL) 143 H (75-99) mg/dL Calcium 8.2 L (8.4-10.2) mg/dL Microbiology - Last 24 Hours (Table) 05/20/20 13:45 Blood Culture - Final Blood No Growth after 144 hours Assessment and Plan Plan: Assessment: #1. Acute abdominal pain secondary to ileus versus partial bowel obstruction, and the patient with a history of previous bowel resection. NG Tube has been discontinued on 05/23/2020, and today on 05/26/2020 patient is tolerating oral intake, no nausea or vomiting, passing gas #2. Hypovolemic hypotension in addition to septic shock related to urinary source, urine culture showed E. coli, and today on 05/26/2020 patient is still on vasopressor support, decreasing in dose On 05/27/2020 patient has been off the vasopressor support for 9 hours, remains on stress doses of hydrocortisone #3. Acute urinary tract infection, with the urine culture showing gram-negative bacilli, urine culture showed E. coli #4. A. fib with RVR, currently on amiodarone and Xarelto for anticoagulation #5. History of hypertension #6. End-stage renal disease on hemodialysis #7. History of anemia heart disease #8. History of pulmonary hypertension #9. History of DVT with previous [place] filter placement #10. History of GERD #11. History of valvular heart disease and pulmonary hypertension Plan: Patient has been off norepinephrine since midnight, she is having hemodialysis treatment right now, at times her systolic is in the 80s, especially during dialysis, however clinically patient is completely asymptomatic, she is awake and alert, oriented 3, no difficulty breathing. She's been afebrile, patient continues on Rocephin, she's had no acute events overnight. We'll continue str ess doses of IV hydrocortisone. Continue monitoring in the intensive care unit, if she remains stable may consider transferring the patient out of intensive care unit, will continue to follow I performed a history & physical examination of the patient and discussed their management with my nurse practitioner, Ava Gaxiola. I reviewed the nurse practitioner's note and agree with the documented findings and plan of care. Lung sounds are positive for clear breath sounds. The findings and the impression was discussed with the patient. I attest to the documentation by the nurse practitioner. Time with Patient: Less than 30
--- NOTE | 2020-05-27 10:06 | P.PN ---
Subjective Progress Note Date: 05/27/20 Trina Carrillo, is an 85-year-old female who presented to [facility] emergency room with a chief complaint of dizziness and lightheadedness and generalized weakness, patient has a known history of end-stage renal disease on hemodialysis Monday and Monday, chronic systolic congestive heart failure, chronic atrial fibrillation, pulmonary hypertension, and valvular heart disease with aortic stenosis and severe tricuspid regurgitation, severe mitral regurgitation. Patient stated that her symptoms started when she returned from hemodialysis on Monday she also started developing some nausea and vomiting. She was also complaining of some episodes of chest pain and she decided to come to emergency room. patient was evaluated in emergency room her vital examination on presentation reveals a temperature of 98 pulse 52 respiration 20 blood pressure 94/63 pulse ox 98% on room air, laboratory data was significant for slightly elevated white blood count of 12.5 hemoglobin 10.4 and platelet count of 191 sodium was 132 potassium 3.5 chloride 92 BUN 25 creatinine 3.34 glucose 125 normal liver enzymes with slightly elevated alkaline phosphatase and normal lipase, EKG done in the emergency room revealed atrial fibrillation with nonspecific ST and T wave abnormalities, patient was admitted to telemetry floor for further evaluation and treatment echocardiogram and carotid Doppler were ordered, cardiology consultation and nephrology consultation were requested. Patient was seen and examined on the telemetry floor, she is complaining of nausea, and generalized weakness, and dizziness otherwise she denies any complaints at this time there is no fever or chills, no headache no chest pain no shortness of breath no cough no vomiting no diarrhea no blood in the stools no burning with urination no frequency or urgency and no hematuria. On 05/18/2020 patient was seen and examined on the medical floor she is alert and oriented 3 in no apparent distress, she is complaining of nausea and occasional vomiting there is no fever or chills no headache or dizziness, no chest pain no shortness of breath no cough there is mild discomfort in the abdomen no diarrhea no blood in the stools no burning with urination no frequency or urgency and no hematuria. Abdomen x-ray is showing evidence of partial small bowel obstruction at this time patient will be kept nothing by mouth consultation for Dr. Vuong was initiated patient is well known to him he operated on her abdomen in the past. n 05/19/2020 patient was seen and examined on the medical floor she is alert and oriented 3 in no distress at this time she has NG tube in to suction she is feeling better with less abdominal pain otherwise she denies any complaints there is no fever or chills no headache or dizziness no chest pain no shortness of breath no cough no nausea or vomiting no burning with urination no frequency or urgency and no hematuria On 05/20/2020 patient is alert and oriented 3. Patient having low blood pressure and elevated heart rate. Patient has been ordered to transfer to the ICU. ICU nurse currently at bedside and midline has been placed. Critical care doctor Jen has ordered patient to be started on Levophed for pressure support at this time. Lactic acid did come back slightly elevated at 2.1. Blood cultures have been ordered Dr. Berman has been consulted. Blood pressure has imp roved to 120s. Patient remains with NG tube dissection surgery is following. Per nephrology plans for hemodialysis today due to low blood pressure. Patient will be transferred to the intensive care unit for closer monitoring critical care and infectious disease consult placed at this time patient is alert and oriented. Patient reports that she did feel out of it when her pressure was low but has improved. Patient denies any chest pain or shortness of breath. Patient denies nausea vomiting or diarrhea. Patient denies any urinary burning or frequency. Per urology services also consulted and patient started on Zosyn. On 05/21/2020 patient was seen and examined in the ICU she is alert and oriented 3 in no apparent distress she is receiving hemodialysis at this time, NG tube is in to suction, she is complaining of pain in her hips otherwise she denies any complaints there is no fever or chills no headache or dizziness no chest pain no shortness of breath no cough no nausea or vomiting no abdominal pain no diarrhea no blood in the stools no burning with urination no frequency or urgency and no hematuria On 05/22/2020 patient remains in the intensive care unit alert and oriented currently getting hemodialysis. Patient remains on Levophed for pressure support. Potassium low at 2.7 placed per protocol per nursing staff. This time patient denies chest pain or shortness breath. Patient denies nausea vomiting or diarrhea. Patient denies any urinary burning or frequency. On 05/23/2020 patient was seen and examined in the intensive care unit, she is alert and oriented 3 in no apparent distress she is answering questions appropriately, NG tube has been removed, she states that she is passing some gas, no bowel movements, she is still complaining of some abdominal discomfort and pain otherwise she denies any complaints there is no fever or chills no headache or dizziness no chest pain no shortness of breath no cough no nausea or vomiting no diarrhea no blood in the stools no burning with urination no frequency or urgency and no hematuria On 05/24/2020 patient was seen and examined in the ICU she is alert and oriented 3 in no distress there is no fever or chills no headache or dizziness no chest pain no shortness of breath no cough no nausea or vomiting no abdominal pain no diarrhea no blood in the stools no burning with urination no frequency or urgen cy and no hematuria NG tube has been removed shouldn't is receiving clear liquid diet she has passed some gas but had no bowel movement yet she is feeling better she is maintained on oxygen via nasal cannula and tolerating well. On 05/25/2020 patient was seen and examined in the ICU she is alert and oriented 3 in no apparent distress, she is complaining of generalized weakness otherwise she denies any complaints at this time there is no fever or chills no headache or dizziness no chest pain no shortness of breath no cough no nausea or vomiting no abdominal pain no diarrhea and no urinary symptoms. On 05/26/2020 patient was seen and examined in the ICU she is alert and oriented in no distress she is maintained on oxygen via nasal cannula she is still on a small dose of Levophed for pressure support, there is no fever or chills no headache or dizziness no chest pain no shortness of breath no cough no nausea or vomiting no abdominal pain no diarrhea no burning with urination no frequency or urgency and no hematuria On 05/27/2020 patient is alert and oriented x3. Currently resting comfortably in ICU getting hemodlysis. Per nursing staff patient has been of levophed for the past couple of hours. Patient denies any chest pain or shortness of breath. Denies any urinary burning or frequency. denies any nausea or vomiting. Objective - Vital Signs Vital signs: Vital Signs Temp 97.7 F 05/27/20 08:00 Pulse 99 05/27/20 08:00 Resp 13 05/27/20 08:00 BP 103/59 05/27/20 08:00 Pulse Ox 100 05/27/20 08:00 Intake & Output 05/26/20 05/27/20 05/27/20 18:59 06:59 18:59 Intake Total 1037.709 509.060 346 Output Total 0 0 0 Balance 1037.709 509.060 346 Weight 92.3 kg Intake: IV 299 256 46 A-line pressure bag 39 36 6 Sodium Chloride 0.9% 1, 260 220 40 000 ml @ 20 mls/hr IV . Q24H [facility] Rx#:[id number] Intake, IV Titration 38.709 3.060 Amount Norepinephrine 32 mg In 38.709 3.060 Sodium Chloride 0.9% 218 ml @ 0.5 MCG/KG/MIN 19. 078 mls/hr IV .Q13H7M [facility] Rx#:[id number] Oral 700 250 300 Output: Urine 0 0 0 Other: # Voids 1 ABP, PAP, CO, CI - Last Documented Arterial Blood Pressure 110/58 - Exam in general patient is alert and oriented 3 in no apparent distress HEENT head normocephalic and atraumatic Neck is supple no JVD no goiter no lymphadenopathy Chest exam reveals a few scattered crackles bilaterally no wheezing Cardiac exam reveals regular heart sounds S1 and S2 no gallops no murmurs Abdomen is soft with tenderness in the epigastric area no organomegaly no palpable masses was normal bowel sounds Extremity exam reveals 1+ edema bilaterally no cyanosis or clubbing Neurological examination reveals no gross focal deficit - Labs CBC & Chem 7: 05/27/20 04:00 05/27/20 04:00 Labs: Abnormal Lab Results - Last 24 Hours (Table) 05/26/20 05/26/20 05/26/20 Range/Units 12:00 17:18 21:50 RBC (3.80-5.40) m/uL Hgb (11.4-16.0) gm/dL Hct (34.0-46.0) % MCV (80.0-100.0) fL MCH (25.0-35.0) pg MCHC (31.0-37.0) g/dL RDW (11.5-15.5) % Neutrophils # (1.3-7.7) k/uL Lymphocytes # (1.0-4.8) k/uL Macrocytosis Chloride (98-107) mmol/L Carbon Dioxide (22-30) mmol/L BUN (7-17) mg/dL Creatinine (0.52-1.04) mg/dL Glucose (74-99) mg/dL POC Glucose (mg/dL) 126 H 158 H 164 H (75-99) mg/dL Calcium (8.4-10.2) mg/dL 05/27/20 05/27/20 05/27/20 Range/Units 04:00 04:00 06:53 RBC 2.37 L (3.80-5.40) m/uL Hgb 8.9 L (11.4-16.0) gm/dL Hct 29.1 L (34.0-46.0) % MCV 123.0 H (80.0-100.0) fL MCH 37.6 H (25.0-35.0) pg MCHC 30.6 L (31.0-37.0) g/dL RDW 16.0 H (11.5-15.5) % Neutrophils # 7.9 H (1.3-7.7) k/uL Lymphocytes # 0.7 L (1.0-4.8) k/uL Macrocytosis Marked A Chloride 111 H (98-107) mmol/L Carbon Dioxide 21 L (22-30) mmol/L BUN 31 H (7-17) mg/dL Creatinine 2.68 H (0.52-1.04) mg/dL Glucose 156 H (74-99) mg/dL POC Glucose (mg/dL) 143 H (75-99) mg/dL Calcium 8.2 L (8.4-10.2) mg/dL Microbiology - Last 24 Hours (Table) 05/20/20 13:45 Blood Culture - Final Blood No Growth after 144 hours Assessment and Plan Assessment: Plan: 1. Partial mechanical small bowel obstruction with symptoms of nausea vomiting and generalized weakness and dizziness, cause is unclear, will check abdomen ultrasound. Surgical surfaces are following. patient has been advanced to soft diet 2. Underlying history of end-stage renal disease on hemodialysis, nephrology consultation requested 3. Underlying history of chronic systolic congestive heart failure without evidence of exacerbation at this time. 2-D echo completed showing EF of 50-55%. Cardiology services following 4. Underlying history of chronic persistent atrial fibrillation 5. Underlying history of pulmonary hypertension 6. Underlying history of valvular heart disease 7. underlying history of diabetes mellitus 8. Hypotension. Blood pressure dropping to the 70s. Patient received 2 IV boluses. Patient has been ordered to transfer to intensive care unit and Levophed has been ordered per critical care. Levophed currently on hold 9. Elevated lactic acid. Lactic acid 2.1. Patient started on Zosyn, blood culture ordered and infectious disease wellness consultant 10. Hypokalemia. potassium 2.7 replacement protocol 11. Urinary tract infection. urine culture positive for ecoli. ID following. maintained on rocephin Patient remains in the intensive care unit Critical care, infectious disease, nephrology, cardiology and surgical services following Prognosis is guarded due to age and multiple underlying morbidities. I performed an examination of the patient and discussed their management with the Nurse Practitioner. I have reviewed the Nurse Practitioner's notes and agree with the documented findings and plan of care
--- NOTE | 2020-05-27 10:11 | P.PN ---
<Hina Craig - Last Filed: 05/27/20 10:07> Subjective Progress Note Date: 05/27/20 CHIEF COMPLAINT: Abdominal pain with nausea and vomiting HISTORY OF PRESENT ILLNESS:Patient is in the ICU and is getting hemodialysis. She is off of Levophed since last night. she is tolerating dysphagia chopped diet. Denies any nausea or vomiting. She is passing flatus. Denies bowel movement. She is afebrile. WBC 9.1 hemoglobin 8.9 PHYSICAL EXAM: VITAL SIGNS: Reviewed. GENERAL: Well-developed in no acute distress. HEENT: No sclera icterus. Extraocular movements grossly intact. Moist buccal mucosa. Head is atraumatic, normocephalic. ABDOMEN: Soft nondistended NEUROLOGIC: Alert and oriented. Cranial nerves II through XII grossly intact. ASSESSMENT: 1. Ileus 2. Multiple ill-defined hypodensities scattered throughout the liver noted on CAT scan 3. UTI PLAN: -Continue dysphagia chopped diet -Continue antibiotic for UTI Physician Sap Technical Developer note has been reviewed by physician. Signing provider agrees with the documented findings, assessment, and plan of care. Objective - Vital Signs Vital signs: Vital Signs Temp 97.7 F 05/27/20 08:00 Pulse 99 05/27/20 08:00 Resp 13 05/27/20 08:00 BP 103/59 05/27/20 08:00 Pulse Ox 100 05/27/20 08:00 Intake & Output 05/26/20 05/27/20 05/27/20 18:59 06:59 18:59 Intake Total 1037.709 509.060 346 Output Total 0 0 0 Balance 1037.709 509.060 346 Weight 92.3 kg Intake: IV 299 256 46 A-line pressure bag 39 36 6 Sodium Chloride 0.9% 1, 260 220 40 000 ml @ 20 mls/hr IV . Q24H [facility] Rx#:[id number] Intake, IV Titration 38.709 3.060 Amount Norepinephrine 32 mg In 38.709 3.060 Sodium Chloride 0.9% 218 ml @ 0.5 MCG/KG/MIN 19. 078 mls/hr IV .Q13H7M [facility] Rx#:[id number] Oral 700 250 300 Output: Urine 0 0 0 Other: # Voids 1 ABP, PAP, CO, CI - Last Documented Arterial Blood Pressure 110/58 - Labs CBC & Chem 7: 05/27/20 04:00 05/27/20 04:00 Labs: Abnormal Lab Results - Last 24 Hours (Table) 05/26/20 05/26/20 05/26/20 Range/Units 12:00 17:18 21:50 RBC (3.80-5.40) m/uL Hgb (11.4-16.0) gm/dL Hct (34.0-46.0) % MCV (80.0-100.0) fL MCH (25.0-35.0) pg MCHC (31.0-37.0) g/dL RDW (11.5-15.5) % Neutrophils # (1.3-7.7) k/uL Lymphocytes # (1.0-4.8) k/uL Macrocytosis Chloride (98-107) mmol/L Carbon Dioxide (22-30) mmol/L BUN (7-17) mg/dL Creatinine (0.52-1.04) mg/dL Glucose (74-99) mg/dL POC Glucose (mg/dL) 126 H 158 H 164 H (75-99) mg/dL Calcium (8.4-10.2) mg/dL 05/27/20 05/27/20 05/27/20 Range/Units 04:00 04:00 06:53 RBC 2.37 L (3.80-5.40) m/uL Hgb 8.9 L (11.4-16.0) gm/dL Hct 29.1 L (34.0-46.0) % MCV 123.0 H (80.0-100.0) fL MCH 37.6 H (25.0-35.0) pg MCHC 30.6 L (31.0-37.0) g/dL RDW 16.0 H (11.5-15.5) % Neutrophils # 7.9 H (1.3-7.7) k/uL Lymphocytes # 0.7 L (1.0-4.8) k/uL Macrocytosis Marked A Chloride 111 H (98-107) mmol/L Carbon Dioxide 21 L (22-30) mmol/L BUN 31 H (7-17) mg/dL Creatinine 2.68 H (0.52-1.04) mg/dL Glucose 156 H (74-99) mg/dL POC Glucose (mg/dL) 143 H (75-99) mg/dL Calcium 8.2 L (8.4-10.2) mg/dL Microbiology - Last 24 Hours (Table) 05/20/20 13:45 Blood Culture - Final Blood No Growth after 144 hours <Teodoro Vuong - Last Filed: 05/27/20 19:05> Subjective As above. Patient doing well today. Tolerating diet. No nausea or vomiting. Denies abdominal pain. Continue antibiotics for urinary tract infection with secondary ileus. Objective - Vital Signs Vital signs: Vital Signs Temp 98.1 F 05/27/20 16:00 Pulse 96 05/27/20 18:00 Resp 16 05/27/20 18:00 BP 95/62 05/27/20 18:00 Pulse Ox 99 05/27/20 18:00 Intake & Output 05/27/20 05/27/20 05/28/20 06:59 18:59 06:59 Intake Total 977.704 8958 Output Total 0 2000 Balance 509.060 -904 Weight 92.3 kg 92.3 kg Intake: IV 256 196 A-line pressure bag 36 36 Sodium Chloride 0.9% 1, 220 160 000 ml @ 20 mls/hr IV . Q24H [facility] Rx#:[id number] Intake, IV Titration 3.060 Amount Norepinephrine 32 mg In 3.060 Sodium Chloride 0.9% 218 ml @ 0.5 MCG/KG/MIN 19. 078 mls/hr IV .Q13H7M [facility] Rx#:[id number] Oral 250 900 Output: Urine 0 0 Hemodialysis 2000 Other: # Voids 1 ABP, PAP, CO, CI - Last Documented Arterial Blood Pressure 96/45 - Labs CBC & Chem 7: 05/27/20 04:00 05/27/20 04:00 Labs: Abnormal Lab Results - Last 24 Hours (Table) 05/26/20 05/27/20 05/27/20 Range/Units 21:50 04:00 04:00 RBC 2.37 L (3.80-5.40) m/uL Hgb 8.9 L (11.4-16.0) gm/dL Hct 29.1 L (34.0-46.0) % MCV 123.0 H (80.0-100.0) fL MCH 37.6 H (25.0-35.0) pg MCHC 30.6 L (31.0-37.0) g/dL RDW 16.0 H (11.5-15.5) % Neutrophils # 7.9 H (1.3-7.7) k/uL Lymphocytes # 0.7 L (1.0-4.8) k/uL Macrocytosis Marked A Chloride 111 H (98-107) mmol/L Carbon Dioxide 21 L (22-30) mmol/L BUN 31 H (7-17) mg/dL Creatinine 2.68 H (0.52-1.04) mg/dL Glucose 156 H (74-99) mg/dL POC Glucose (mg/dL) 164 H (75-99) mg/dL Calcium 8.2 L (8.4-10.2) mg/dL 05/27/20 05/27/20 05/27/20 Range/Units 06:53 11:43 16:46 RBC (3.80-5.40) m/uL Hgb (11.4-16.0) gm/dL Hct (34.0-46.0) % MCV (80.0-100.0) fL MCH (25.0-35.0) pg MCHC (31.0-37.0) g/dL RDW (11.5-15.5) % Neutrophils # (1.3-7.7) k/uL Lymphocytes # (1.0-4.8) k/uL Macrocytosis Chloride (98-107) mmol/L Carbon Dioxide (22-30) mmol/L BUN (7-17) mg/dL Creatinine (0.52-1.04) mg/dL Glucose (74-99) mg/dL POC Glucose (mg/dL) 143 H 155 H 172 H (75-99) mg/dL Calcium (8.4-10.2) mg/dL Microbiology - Last 24 Hours (Table) 05/20/20 13:45 Blood Culture - Final Blood No Growth after 144 hours Assessment and Plan (1) Ileus Current Visit: Yes Status: Acute Code(s): K56.7 - ILEUS, UNSPECIFIED SNOMED Code(s): 822209604
[2020-05-27] MEDS: RIVAROXABAN 10 MG TAB PO SCH (10:53)
[2020-05-27] MEDS: AMIODARONE 200 MG TAB PO SCH ×3 (10:54→20:45)
[2020-05-27] MEDS: TORSEMIDE 20 MG TAB PO SCH (10:54)
[2020-05-27 11:45] LABS: Glucose,Whole Blood 155 mg/dL (75-99)
[2020-05-27] MEDS: NOREPINEPHRINE 32 MG in SODIUM CHLORIDE 0.9% 218 ML IV SCH (14:59)
[2020-05-27 16:48] LABS: Glucose,Whole Blood 172 mg/dL (75-99)
[2020-05-27] MEDS: traMADol 50 MG TAB PO PRN (16:50)
[2020-05-27 17:17] LABS: Hepatitis B Surface AB- Quant 3.5 mIU/mL; Hepatitis B Surface Antibody Non-Reactive (Non-Reactive); Hepatitis B Surface Antigen Non-Reactive (Non-Reactive)
[2020-05-27 20:23] LABS: Glucose,Whole Blood 149 mg/dL (75-99)
[2020-05-28] MEDS: HYDROCORTISONE SUCCINATE 100 MG/2 ML VIAL IV SCH ×4 (01:56→17:10)
[2020-05-28] MEDS: NOREPINEPHRINE 32 MG in SODIUM CHLORIDE 0.9% 218 ML IV SCH (02:00)
[2020-05-28] MEDS: SODIUM CHLORIDE 0.9% 1,000 ML IV SCH (02:00)
[2020-05-28 05:21] LABS: Anisocytosis Slight; Basophils % (A) 0 %; Eosinophils % (A) 0 %; HCT 27.9 % (34.0-46.0); HGB 8.5 gm/dL (11.4-16.0); Hypochromasia Moderate; Lymphocytes # (A) 0.8 k/uL (1.0-4.8); Lymphocytes % (A) 7 %; MCHC 30.3 g/dL (31.0-37.0); MCV 121.9 fL (80.0-100.0); Mean Platelet Volume 8.9; Monocytes # (A) 0.3 k/uL (0-1.0); Monocytes % (A) 3 %; Neutrophils # (A) 11.1 k/uL (1.3-7.7); Neutrophils % (A) 89 %; Platelet Count 175 k/uL (150-450); RBC 2.29 m/uL (3.80-5.40); RDW 16.3 % (11.5-15.5); WBC 12.5 k/uL (3.8-10.6)
[2020-05-28 05:22] LABS: Macrocytosis Marked
[2020-05-28 05:36] LABS: Albumin 2.1 g/dL (3.5-5.0); Calcium 8.1 mg/dL (8.4-10.2); Potassium 3.9 mmol/L (3.5-5.1); Total Bilirubin 0.8 mg/dL (0.2-1.3); Total Protein 4.5 g/dL (6.3-8.2)
[2020-05-28] MEDS: DORZOLAMIDE HCL 2% DROPS 10 ML BTL BOTH EYES SCH ×2 (06:52→20:11)
[2020-05-28] MEDS: MIDODRINE 5 MG TAB PO SCH ×3 (06:52→17:08)
[2020-05-28] MEDS: BRIMONIDINE TARTRATE 0.2% DROPS 5 ML BTL BOTH EYES SCH ×2 (06:52→20:11)
[2020-05-28 06:59] LABS: Glucose,Whole Blood 129 mg/dL (75-99)
[2020-05-28] MEDS: INSULIN ASPART (NovoLOG) 100 UNIT/ML VIAL SQ SCH ×4 (06:59→20:49)
--- NOTE | 2020-05-28 09:01 | P.PN ---
Subjective Patient is seen in follow-up for end-stage renal disease. She is maintained on hemodialysis on Monday schedule. He tolerated 2 L ultrafiltration yesterday. Oral intake improving. Off vasopressors. No chest pain or shortness of breath. Vital signs are stable. General: The patient appeared well nourished and normally developed. HEENT: Head exam is unremarkable. Neck is without jugular venous distension. LUNGS: Breath sounds decreased. HEART: Irregular rate and rhythm. ABDOMEN: Soft, nontender. EXTREMITITES: 1+ edema. Objective - Vital Signs Vital signs: Vital Signs Temp 97.5 F L 05/28/20 06:00 Pulse 80 05/28/20 07:00 Resp 18 05/28/20 07:00 BP 95/62 05/28/20 05:00 Pulse Ox 98 05/28/20 07:00 Intake & Output 05/27/20 05/28/20 05/28/20 18:59 06:59 18:59 Intake Total 1096 156 13 Output Total 2000 40 0 Balance -904 116 13 Weight 92.3 kg 90.8 kg Intake: IV 196 156 13 A-line pressure bag 36 36 3 Sodium Chloride 0.9% 1, 160 120 10 000 ml @ 20 mls/hr IV . Q24H [facility] Rx#:[id number] Oral 900 Output: Urine 0 40 0 Hemodialysis 1999 Other: Voiding Method Indwelling Catheter # Voids 1 ABP, PAP, CO, CI - Last Documented Arterial Blood Pressure 129/67 - Labs CBC & Chem 7: 05/28/20 05:10 05/28/20 05:10 Labs: Abnormal Lab Results - Last 24 Hours (Table) 05/27/20 05/27/20 05/27/20 Range/Units 11:43 16:46 20:22 WBC (3.8-10.6) k/uL RBC (3.80-5.40) m/uL Hgb (11.4-16.0) gm/dL Hct (34.0-46.0) % MCV (80.0-100.0) fL MCH (25.0-35.0) pg MCHC (31.0-37.0) g/dL RDW (11.5-15.5) % Neutrophils # (1.3-7.7) k/uL Lymphocytes # (1.0-4.8) k/uL Macrocytosis Sodium (137-145) mmol/L Chloride (98-107) mmol/L BUN (7-17) mg/dL Creatinine (0.52-1.04) mg/dL Glucose (74-99) mg/dL POC Glucose (mg/dL) 155 H 172 H 149 H (75-99) mg/dL Calcium (8.4-10.2) mg/dL Total Protein (6.3-8.2) g/dL Albumin (3.5-5.0) g/dL 05/28/20 05/28/20 05/28/20 Range/Units 05:10 05:10 06:58 WBC 12.5 H (3.8-10.6) k/uL RBC 2.29 L (3.80-5.40) m/uL Hgb 8.5 L (11.4-16.0) gm/dL Hct 27.9 L (34.0-46.0) % MCV 121.9 H (80.0-100.0) fL MCH 37.0 H (25.0-35.0) pg MCHC 30.3 L (31.0-37.0) g/dL RDW 16.3 H (11.5-15.5) % Neutrophils # 11.1 H (1.3-7.7) k/uL Lymphocytes # 0.8 L (1.0-4.8) k/uL Macrocytosis Marked A Sodium 136 L (137-145) mmol/L Chloride 108 H (98-107) mmol/L BUN 26 H (7-17) mg/dL Creatinine 2.12 H (0.52-1.04) mg/dL Glucose 137 H (74-99) mg/dL POC Glucose (mg/dL) 129 H (75-99) mg/dL Calcium 8.1 L (8.4-10.2) mg/dL Total Protein 4.5 L (6.3-8.2) g/dL Albumin 2.1 L (3.5-5.0) g/dL Assessment and Plan Plan: Assessment: 1. End-stage renal disease maintained on hemodialysis on Monday schedule. 2. Small bowel obstruction. Tolerating oral intake. 3. A. fib with RVR maintained on amiodarone. 4. Hypotension, now off Levophed. On midodrine. 5. E. coli UTI maintain on antibiotics. 6. Chronic kidney disease mineral bone disease maintained on PhosLo. 7. Chronic diastolic CHF with mild to moderate mitral and tricuspid regurgitation. 8. Moderate pulmonary hypertension. 9. Edema secondary to hypoalbuminemia, ckd. 10. Anemia of chronic kidney disease maintained on Aranesp. Plan: Hemodialysis tomorrow. Check phosphorus level.
--- NOTE | 2020-05-28 09:24 | P.PN ---
Subjective Progress Note Date: 05/28/20 Principal diagnosis: Acute ileus, end-stage renal disease, atrial fibrillation with RVR This is a very pleasant 85-year-old female patient who follows with Dr. Owen as her primary care provider. She has history of atrial fibrillation anticoagulated with Xarelto, poor vision, hypertension, diabetes mellitus, coronary artery disease, congestive heart failure, DVT, end-stage renal disease and on hemodialysis Monday since October 2019. She is a lifelong nonsmoker. She presented here on 05/16/2020 with complaints of abdominal discomfort and nausea and vomiting, poor appetite. She has been compliant with her dialysis treatments. CAT scan of the abdomen and pelvis revealed multiple fluid-filled small bowel loops. The appeared dilated.: Contains fluid and some fecal debris. Correlate for ileus. Partial small bowel obstruction not identified. Previous surgical changes with anastomosis appear chronic. Multiple ill-defined hypodensities scattered throughout the liver which appeared to have increased compared to 2017. She has been seen and evaluated by surgical services. Nasogastric tube has been placed. See well on the regular medical floor she developed hypotension and an A was called. She been transferred to the intensive care unit where consulted for the same. She has received 1-1/2 L of fluid resuscitation. She is initiated on norepinephrine currently at 0.16 mcg/kg/m. Blood cultures and urine cultures are pending. Right upper extremity midline placed. She remains awake and alert in no acute distress. Maintaining O2 saturations in the 90s on room air. She is in A. fib with RVR. She has been initiated on Zosyn. Reevaluated today on 05/21/20, patient remains in the ICU, remains on norepinephrine at 0.13 mcg/kg/m, IV fluid is at 100 mL/h, patient is on room air with O2 saturation of 95%. Cardizem was added today for her atrial fibrillation with RVR, and she is in atrial fibrillation with a rate of 144. Cardiology recommended oral metoprolol, however the patient has a nasogastric tube, and it is on continuous suction, patient lost her midline today, and I had to place a right subclavian central line for norepinephrine drip. Patient denies any shortness of breath, no cough, no wheezing, her abdominal pain and discomfort seems to be improved and better compared to the last 24 hours, nasogastric tube remains on suction. Patient is afebrile, urinalysis is showing evidence of hematuria and bacteriuria as well as pyuria. Will empirically place the patient on antibiotics in the form of Zosyn for now. Urine culture is pending. On 05/22/2020 patient seen in follow-up in the intensive care unit, she is cu rrently having dialysis with the goal of removal of 2 L of fluid blood pressure permitting. Room air pulse ox is 89-90%. Urine culture is showing gram- negative bacilli, final cultures pending, blood culture has shown no growth thus far. Patient remains on 13 mics per minute of Levophed, 0.9 normal saline at a rate of 100 ML per hour, Cardizem infusion at 15 mg per hour, patient remains in atrial fibrillation with a rate of 123 permanent, room air pulse ox is 94%. She is on Zosyn for antibiotic coverage. She has had no fever or chills. Yesterday chest x-ray showed no pneumothorax following left subclavian central venous catheter placement. No altered mentation, patient is awake and alert, oriented 3, answering questions appropriately. Denies any worsening dyspnea, denies any chest pain, no significant cough or congestion, no abdominal pain, NG tube remains in place with scant amount of gastric drainage overnight. Today's labs have been reviewed, showing white blood cell count 6.4, hemoglobin of 8.7, sodium is 140, potassium is 2.7, chloride is 107, CO2 is 20, B1 is 29, and c reatinine is 2.59. She has had no nausea or vomiting. No diarrhea, no abdominal pain. Patient is producing urine in the order of 30-40 mL per hour. On 05/25/2020 patient seen in follow-up in the intensive care unit, she is resting comfortably in bed, she is awake and alert, oriented 3, answers questions appropriately, she is on 1 L of oxygen pulse ox of 96-100%. She denies any acute respiratory distress, she is on clear liquid diet, apparently she had one episode of vomiting yesterday. She has not had a bowel movement since 05/19/2020, abdomen is soft, nontender, surgical services are following, NG tube has been discontinued. Current drips include 0.9 normal saline at 20 ML per hour, amiodarone drip remains on a 0.5 mg/m, and levo fed is at 20 mics per minute. Remains in atrial fibrillation with a rate of 101 BPM. Today's lab work has been reviewed showing a hemoglobin of 9.1, white blood count is 5.8, sodium is 137, potassium is 4.4, chloride is 108, BUN is 37 creatinine is 3.40 patient is on Zosyn for antibiotic coverage, she is also on oral Xarelto for anticoagulation. On 05/26/2020 patient seen in follow-up in the intensive care unit, she remains on vasopressor support, currently at 10 mics per minute of norepinephrine, point tenderness sitting is infusing at 20 ML per hour, altered mentation, patient is awake and oriented oriented 3, denies any acute distress, no worsening dyspnea, breathing pre-comfortably, she is on room air with a pulse ox of 96%, she has been upgraded to full liquid diet, and she is tolerating it well so far, no nausea or vomiting, abdomen is soft, she has not had a bowel movement yet but she is passing a lot of gas. Urgent call services are following. Lungs are diminished, no rhonchi, no wheezes, no rales, pulse ox of 97% on room air. Patient had hemodialysis yesterday and had 1 L of fluid removed, still has some additional generalized edema in bilateral lower extremities and upper extremities as well. She is on Rocephin urinary tract infection with a urine culture showing E. coli, blood culture has shown no growth. His labs have been reviewed, showing white blood cell count of 8.3, hemoglobin is 9.1, sodium is 140, potassium is 3.8, chloride is 112, BUN is 23 creatinine is 2.19 On 05/27/2020 patient seen in follow-up in the intensive care unit, she is wake and alert, resting comfortably in bed, breathing comfortably, she is on room air with a pulse ox of 100%, levo fed has been on hold since midnight, blood pre ssure is 110/58, patient is having hemodialysis treatment today. Still has some generalized edema involving upper and lower extremities, but no difficulty breathing. No chest pain, she is in atrial fibrillation slightly tachycardic, at times rate is up in the 110-115 BPM range. IV fluids with 0.9 normal saline infusing at a rate of 20 ML per hour. Continues on stress doses of IV hydrocortisone for relative adrenal insufficiency, at 50 mg every 6 hours. Patient is on Rocephin for antibiotic coverage, urine culture showed E. coli. Today's labs have been reviewed, show a blood cell, 9.1, hemoglobin of 8.9, sodium is 138, potassium is 4.5, chloride is 111, CO2 is 21, BUN is 31 creatinine is 2.68 On 05/28/2020 patient seen in follow-up in the intensive care unit, she is awake and alert, in no acute distress, off of vasopressor support, for 36 hours. Patient had hemodialysis yesterday, with 2 L of fluid removal. Breathing comfortably, she is on room air pulse ox of 97%. Lung sounds are clear, no nausea or vomiting, she is tolerating oral intake, abdomen is soft. She is on 0.9 normal saline at a rate of 10 ML per hour, remains on antibiotics form of Rocephin for E. coli urinary tract infection. Blood culture has shown no growth. Objective - Vital Signs Vital signs: Vital Signs Temp 97.5 F L 05/28/20 06:00 Pulse 81 05/28/20 09:00 Resp 20 05/28/20 09:00 BP 95/62 05/28/20 09:00 Pulse Ox 97 05/28/20 09:00 Intake & Output 05/27/20 05/28/20 05/28/20 18:59 06:59 18:59 Intake Total 1096 156 389 Output Total 1999 40 0 Balance -904 116 389 Weight 92.3 kg 90.8 kg Intake: IV 196 156 39 A-line pressure bag 36 36 9 Sodium Chloride 0.9% 1, 160 120 30 000 ml @ 20 mls/hr IV . Q24H [facility] Rx#:[id number] Oral 900 350 Output: Urine 0 40 0 Hemodialysis 1999 Other: Voiding Method Indwelling Catheter Indwelling Catheter # Voids 1 ABP, PAP, CO, CI - Last Documented Arterial Blood Pressure 110/64 - Exam GENERAL EXAM: Alert, very pleasant, 85-year-old white female, on room air with pulse ox of 100% resting comfortably in bed, she is oriented 3, responding appropriately, comfortable in no apparent distress. HEAD: Normocephalic/atraumatic. EYES: Normal reaction of pupils, equal size. Conjunctiva pink, sclera white. NOSE: Clear with pink turbinates. THROAT: No erythema or exudates. NECK: No masses, no JVD, no thyroid enlargement, no adenopathy. CHEST: No chest wall deformity. Symmetrical expansion. LUNGS: Equal air entry with no crackles, wheeze, rhonchi or dullness. CVS: Irregular rate and rhythm, normal S1 and S2, no gallops, no murmurs, no rubs ABDOMEN: Soft, nontender. No hepatosplenomegaly, normal bowel sounds, no guarding or rigidity. EXTREMITIES: No clubbing, 1+ lower extremity edema, no cyanosis, 2+ pulses and upper and lower extremities. MUSCULOSKELETAL: Muscle strength and tone normal. SPINE: No scoliosis or deformity SKIN: No rashes CENTRAL NERVOUS SYSTEM: Alert and oriented -3. No focal deficits, tone is normal in all 4 extremities. PSYCHIATRIC: Alert and oriented -3. Appropriate affect. Intact judgment and insight. - Labs CBC & Chem 7: 05/28/20 05:10 05/28/20 05:10 Labs: Abnormal Lab Results - Last 24 Hours (Table) 05/27/20 05/27/20 05/27/20 Range/Units 11:43 16:46 20:22 WBC (3.8-10.6) k/uL RBC (3.80-5.40) m/uL Hgb (11.4-16.0) gm/dL Hct (34.0-46.0) % MCV (80.0-100.0) fL MCH (25.0-35.0) pg MCHC (31.0-37.0) g/dL RDW (11.5-15.5) % Neutrophils # (1.3-7.7) k/uL Lymphocytes # (1.0-4.8) k/uL Macrocytosis Sodium (137-145) mmol/L Chloride (98-107) mmol/L BUN (7-17) mg/dL Creatinine (0.52-1.04) mg/dL Glucose (74-99) mg/dL POC Glucose (mg/dL) 155 H 172 H 149 H (75-99) mg/dL Calcium (8.4-10.2) mg/dL Total Protein (6.3-8.2) g/dL Albumin (3.5-5.0) g/dL 05/28/20 05/28/20 05/28/20 Range/Units 05:10 05:10 06:58 WBC 12.5 H (3.8-10.6) k/uL RBC 2.29 L (3.80-5.40) m/uL Hgb 8.5 L (11.4-16.0) gm/dL Hct 27.9 L (34.0-46.0) % MCV 121.9 H (80.0-100.0) fL MCH 37.0 H (25.0-35.0) pg MCHC 30.3 L (31.0-37.0) g/dL RDW 16.3 H (11.5-15.5) % Neutrophils # 11.1 H (1.3-7.7) k/uL Lymphocytes # 0.8 L (1.0-4.8) k/uL Macrocytosis Marked A Sodium 136 L (137-145) mmol/L Chloride 108 H (98-107) mmol/L BUN 26 H (7-17) mg/dL Creatinine 2.12 H (0.52-1.04) mg/dL Glucose 137 H (74-99) mg/dL POC Glucose (mg/dL) 129 H (75-99) mg/dL Calcium 8.1 L (8.4-10.2) mg/dL Total Protein 4.5 L (6.3-8.2) g/dL Albumin 2.1 L (3.5-5.0) g/dL Assessment and Plan Plan: Assessment: #1. Acute abdominal pain secondary to ileus versus partial bowel obstruction, and the patient with a history of previous bowel resection. NG Tube has been discontinued on 05/23/2020, and today on 05/26/2020 patient is tolerating oral intake, no nausea or vomiting, passing gas #2. Hypovolemic hypotension in addition to septic shock related to urinary source, urine culture showed E. coli, resolved, and norepinephrine has been on hold for 36 hours today on 05/28/2020 On 05/27/2020 patient has been off the vasopressor support for 9 hours, remains on stress doses of hydrocortisone On 05/28/2020 patient has remained off vasopressor support for 36 hours, remains on stress doses of hydrocortisone #3. Acute urinary tract infection, with the urine culture showing gram-negative bacilli, urine culture showed E. coli #4. A. fib with RVR, currently on amiodarone and Xarelto for anticoagulation #5. History of hypertension #6. End-stage renal disease on hemodialysis #7. History of anemia heart disease #8. History of pulmonary hypertension #9. History of DVT with previous Toyin filter placement #10. History of GERD #11. History of valvular heart disease and pulmonary hypertension Plan: Continue current medical treatment, she has remained over vasopressor support for close to 36 hours, maintaining stable blood pressure, no fever, no difficulty breathing, she is on room air. Is tolerating oral intake, no nausea vomiting or diarrhea, no abdominal pain, patient is stable to transfer out of intensive care unit to general medical surgical floor I performed a history & physical examination of the patient and discussed their management with my nurse practitioner, Ava Gaxiola. I reviewed the nurse practitioner's note and agree with the documented findings and plan of care. Lung sounds are positive for clear breath sounds. The findings and the impress ion was discussed with the patient. I attest to the documentation by the nurse practitioner. Time with Patient: Less than 30
[2020-05-28] MEDS: CALCIUM ACETATE 667 MG TAB PO SCH ×3 (09:38→17:09)
[2020-05-28] MEDS: RIVAROXABAN 10 MG TAB PO SCH (09:38)
[2020-05-28] MEDS: NYSTATIN 100,000 UNIT/ML SUSP 500,000 UNIT/5 ML CUP PO SCH ×4 (09:39→20:49)
[2020-05-28] MEDS: BENEFIBER PO SCH (09:40)
[2020-05-28] MEDS: METOPROLOL TARTRATE 25 MG TAB PO SCH ×2 (09:40→20:49)
[2020-05-28] MEDS: AMIODARONE 200 MG TAB PO SCH ×2 (09:43→20:49)
--- NOTE | 2020-05-28 10:28 | P.PN ---
Subjective Progress Note Date: 05/28/20 This is a pleasant 85-year-old female who follows regularly with Dr. May in the office. She has a history of persistent atrial fibrillation, hypertension, diabetes, coronary artery disease, diastolic congestive heart failure, DVT, end- stage renal disease on hemodialysis. Presented to the hospital with symptoms of abdominal discomfort with associated nausea vomiting and poor appetite. was found to have ileus versus partial bowel obstruction. She had an NG tube placed which was discontinued 2 days ago. Patient still having some nausea, no vomiting today. They are attempting to feed the patient, if she is able to keep down food and drink, we will change all of her medications over to oral. She has not yet had a bowel movement. She continues to be on amiodarone drip at 0.5 mg/m as well as some legal. Continues to be in atrial fibrillation with a heart rate of 1-110. Hemoglobin today 9.1, white blood cell count 5.8, sodium 137, potassium 4.4, BUN 37 and creatinine 3.4. Overall she feels well, just feeling a little weak today. Breathing is stable. 05/26/2020 Seen and examined this morning, overall feeling significantly better. She is keeping down fluids and light food. Her blood pressure this morning 93/40, heart rate in the 1 teens to 130s. She is currently on levo, which is being attempted to wean. We will increase her dose of beta vilma today for more optimal heart rate control. Laboratory data from today, white blood cell count 8.3, hemoglobin 9.1, platelet count 167. 05/27/2020 Patient was seen and examined this morning, overall continuing to improve. Tolerating liquids and diet fairly well. She is undergoing dialysis this morning.I pressure 104/60 with a heart rate in the 80s to 90s, 100% on room air.White blood cell count 9.1, hemoglobin 8.9, platelet count 156. Sodium 138, potassium 4.5, BUN 31, creatinine 2.6. 05/28/2020 Patient seen and examined this morning, in the intensive care unit, awake and alert, feeling overall much better today. She is off of vasopressor support for the past 36 hours. Blood pressure 95/60 with a heart rate in the 80s, respirations 20. White blood cell count 12.5, hemoglobin 8.5, platelet count 175. Sodium 136, potassium 3.9, BUN 26, creatinine 2.1. Objective - Vital Signs Vital signs: Vital Signs Temp 97.5 F L 05/28/20 06:00 Pulse 81 05/28/20 09:00 Resp 20 05/28/20 09:00 BP 95/62 05/28/20 09:00 Pulse Ox 97 05/28/20 09:00 Intake & Output 05/27/20 05/28/20 05/28/20 18:59 06:59 18:59 Intake Total 1096 156 389 Output Total 1999 40 0 Balance -904 116 389 Weight 92.3 kg 90.8 kg Intake: IV 196 156 39 A-line pressure bag 36 36 9 Sodium Chloride 0.9% 1, 160 120 30 000 ml @ 20 mls/hr IV . Q24H [facility] Rx#:[id number] Oral 900 350 Output: Urine 0 40 0 Hemodialysis 1999 Other: Voiding Method Indwelling Catheter Indwelling Catheter # Voids 1 ABP, PAP, CO, CI - Last Documented Arterial Blood Pressure 110/64 - Exam PHYSICAL EXAMINATION: GENERAL: 85-year-old female, resting comfortably in bed, in no acute distress at the time of my examination this morning HEENT: Head is atraumatic, normocephalic. Pupils equal, round. Sclera anicteric. Conjunctiva are clear. Mucous membranes of the mouth are moist. Neck is supple. There is no elevated jugular venous pressure. No carotid bruit is heard. HEART EXAMINATION: S1 and S2 irregularly irregular a systolic murmur is heard CHEST EXAMINATION: Lungs are clear to auscultation and precussion. No chest wall tenderness is noted on palpation or with deep breathing. ABDOMEN: Soft, nontender. Bowel sounds are heard. No organomegaly noted. EXTREMITIES: 2+ peripheral pulses with no evidence of peripheral edema and no calf tenderness noted. NEUROLOGIC [patient is awake, alert and oriented 3 . - Labs CBC & Chem 7: 05/28/20 05:10 05/28/20 05:10 Labs: Abnormal Lab Results - Last 24 Hours (Table) 05/27/20 05/27/20 05/27/20 Range/Units 11:43 16:46 20:22 WBC (3.8-10.6) k/uL RBC (3.80-5.40) m/uL Hgb (11.4-16.0) gm/dL Hct (34.0-46.0) % MCV (80.0-100.0) fL MCH (25.0-35.0) pg MCHC (31.0-37.0) g/dL RDW (11.5-15.5) % Neutrophils # (1.3-7.7) k/uL Lymphocytes # (1.0-4.8) k/uL Macrocytosis Sodium (137-145) mmol/L Chloride (98-107) mmol/L BUN (7-17) mg/dL Creatinine (0.52-1.04) mg/dL Glucose (74-99) mg/dL POC Glucose (mg/dL) 155 H 172 H 149 H (75-99) mg/dL Calcium (8.4-10.2) mg/dL Phosphorus (2.5-4.5) mg/dL Total Protein (6.3-8.2) g/dL Albumin (3.5-5.0) g/dL 05/28/20 05/28/20 05/28/20 Range/Units 05:10 05:10 05:10 WBC 12.5 H (3.8-10.6) k/uL RBC 2.29 L (3.80-5.40) m/uL Hgb 8.5 L (11.4-16.0) gm/dL Hct 27.9 L (34.0-46.0) % MCV 121.9 H (80.0-100.0) fL MCH 37.0 H (25.0-35.0) pg MCHC 30.3 L (31.0-37.0) g/dL RDW 16.3 H (11.5-15.5) % Neutrophils # 11.1 H (1.3-7.7) k/uL Lymphocytes # 0.8 L (1.0-4.8) k/uL Macrocytosis Marked A Sodium 136 L (137-145) mmol/L Chloride 108 H (98-107) mmol/L BUN 26 H (7-17) mg/dL Creatinine 2.12 H (0.52-1.04) mg/dL Glucose 137 H (74-99) mg/dL POC Glucose (mg/dL) (75-99) mg/dL Calcium 8.1 L (8.4-10.2) mg/dL Phosphorus 2.2 L (2.5-4.5) mg/dL Total Protein 4.5 L (6.3-8.2) g/dL Albumin 2.1 L (3.5-5.0) g/dL 05/28/20 Range/Units 06:58 WBC (3.8-10.6) k/uL RBC (3.80-5.40) m/uL Hgb (11.4-16.0) gm/dL Hct (34.0-46.0) % MCV (80.0-100.0) fL MCH (25.0-35.0) pg MCHC (31.0-37.0) g/dL RDW (11.5-15.5) % Neutrophils # (1.3-7.7) k/uL Lymphocytes # (1.0-4.8) k/uL Macrocytosis Sodium (137-145) mmol/L Chloride (98-107) mmol/L BUN (7-17) mg/dL Creatinine (0.52-1.04) mg/dL Glucose (74-99) mg/dL POC Glucose (mg/dL) 129 H (75-99) mg/dL Calcium (8.4-10.2) mg/dL Phosphorus (2.5-4.5) mg/dL Total Protein (6.3-8.2) g/dL Albumin (3.5-5.0) g/dL Assessment and Plan Plan: Assessment and plan #1 acute abdominal pain secondary to ileus versus partial bowel obstruction. #2 hypotension in addition to septic shock related to acute UTI , urine culture showed E. coli #3 persistent atrial fibrillation, on Xarelto for anticoagulation #4 hypertension #5 end-stage renal disease on hemodialysis #6 pulmonary hypertension #7 history of DVT with prior Toyin filter #8 chronic diastolic congestive heart failure, echo performed May 18 revealed an ejection fraction of 50-55%, LA severely dilated, mild aortic stenosis, moderate mitral regurg, moderate tricuspid regurg. Plan from cardiology's perspective,we will continue this patient on her current medications. She may transfer to the medical surgical unit on telemetry. DNP note has been reviewed, I agree with a documented findings and plan of care. Patient was seen and examined.
[2020-05-28 12:00] LABS: Glucose,Whole Blood 159 mg/dL (75-99)
[2020-05-28] MEDS: TORSEMIDE 20 MG TAB PO SCH (12:25)
[2020-05-28] MEDS: traMADol 50 MG TAB PO PRN ×2 (15:10→21:52)
--- NOTE | 2020-05-28 16:13 | P.PN ---
Subjective Progress Note Date: 05/28/20 Principal diagnosis: Ileus Patient feels well today. Tolerating diet. No nausea or vomiting. Denies pain. Objective - Vital Signs Vital signs: Vital Signs Temp 98.2 F 05/28/20 12:00 Pulse 63 05/28/20 14:00 Resp 20 05/28/20 14:00 BP 95/62 05/28/20 11:00 Pulse Ox 95 05/28/20 14:00 Intake & Output 05/27/20 05/28/20 05/28/20 18:59 06:59 18:59 Intake Total 1096 156 428 Output Total 2000 40 0 Balance -904 116 428 Weight 92.3 kg 90.8 kg Intake: IV 196 156 78 A-line pressure bag 36 36 18 Sodium Chloride 0.9% 1, 160 120 60 000 ml @ 20 mls/hr IV . Q24H [facility] Rx#:[id number] Oral 900 350 Output: Urine 0 40 0 Hemodialysis 1999 Other: Voiding Method Indwelling Catheter Indwelling Catheter # Voids 1 ABP, PAP, CO, CI - Last Documented Arterial Blood Pressure 106/50 - Exam Abdomen: Soft, nontender, nondistended - Labs CBC & Chem 7: 05/28/20 05:10 05/28/20 05:10 Labs: Abnormal Lab Results - Last 24 Hours (Table) 05/27/20 05/27/20 05/28/20 Range/Units 16:46 20:22 05:10 WBC 12.5 H (3.8-10.6) k/uL RBC 2.29 L (3.80-5.40) m/uL Hgb 8.5 L (11.4-16.0) gm/dL Hct 27.9 L (34.0-46.0) % MCV 121.9 H (80.0-100.0) fL MCH 37.0 H (25.0-35.0) pg MCHC 30.3 L (31.0-37.0) g/dL RDW 16.3 H (11.5-15.5) % Neutrophils # 11.1 H (1.3-7.7) k/uL Lymphocytes # 0.8 L (1.0-4.8) k/uL Macrocytosis Marked A Sodium (137-145) mmol/L Chloride (98-107) mmol/L BUN (7-17) mg/dL Creatinine (0.52-1.04) mg/dL Glucose (74-99) mg/dL POC Glucose (mg/dL) 172 H 149 H (75-99) mg/dL Calcium (8.4-10.2) mg/dL Phosphorus (2.5-4.5) mg/dL Total Protein (6.3-8.2) g/dL Albumin (3.5-5.0) g/dL 05/28/20 05/28/20 05/28/20 Range/Units 05:10 05:10 06:58 WBC (3.8-10.6) k/uL RBC (3.80-5.40) m/uL Hgb (11.4-16.0) gm/dL Hct (34.0-46.0) % MCV (80.0-100.0) fL MCH (25.0-35.0) pg MCHC (31.0-37.0) g/dL RDW (11.5-15.5) % Neutrophils # (1.3-7.7) k/uL Lymphocytes # (1.0-4.8) k/uL Macrocytosis Sodium 136 L (137-145) mmol/L Chloride 108 H (98-107) mmol/L BUN 26 H (7-17) mg/dL Creatinine 2.12 H (0.52-1.04) mg/dL Glucose 137 H (74-99) mg/dL POC Glucose (mg/dL) 129 H (75-99) mg/dL Calcium 8.1 L (8.4-10.2) mg/dL Phosphorus 2.2 L (2.5-4.5) mg/dL Total Protein 4.5 L (6.3-8.2) g/dL Albumin 2.1 L (3.5-5.0) g/dL 05/28/20 Range/Units 11:58 WBC (3.8-10.6) k/uL RBC (3.80-5.40) m/uL Hgb (11.4-16.0) gm/dL Hct (34.0-46.0) % MCV (80.0-100.0) fL MCH (25.0-35.0) pg MCHC (31.0-37.0) g/dL RDW (11.5-15.5) % Neutrophils # (1.3-7.7) k/uL Lymphocytes # (1.0-4.8) k/uL Macrocytosis Sodium (137-145) mmol/L Chloride (98-107) mmol/L BUN (7-17) mg/dL Creatinine (0.52-1.04) mg/dL Glucose (74-99) mg/dL POC Glucose (mg/dL) 159 H (75-99) mg/dL Calcium (8.4-10.2) mg/dL Phosphorus (2.5-4.5) mg/dL Total Protein (6.3-8.2) g/dL Albumin (3.5-5.0) g/dL Assessment and Plan (1) Ileus Narrative/Plan: Patient doing well. Continue regular diet. Discussed liver findings again with the patient and her family. Will consider outpatient workup if the patient's clinical condition continues to improve. Current Visit: Yes Status: Acute Code(s): K56.7 - ILEUS, UNSPECIFIED SNOMED Code(s): 455103672
[2020-05-28 16:55] LABS: Glucose,Whole Blood 146 mg/dL (75-99)
--- NOTE | 2020-05-28 17:54 | P.PN ---
Subjective Progress Note Date: 05/28/20 Trina Carrillo, is an 85-year-old female who presented to [facility] emergency room with a chief complaint of dizziness and lightheadedness and generalized weakness, patient has a known history of end-stage renal disease on hemodialysis Monday and Monday, chronic systolic congestive heart failure, chronic atrial fibrillation, pulmonary hypertension, and valvular heart disease with aortic stenosis and severe tricuspid regurgitation, severe mitral regurgitation. Patient stated that her symptoms started when she returned from hemodialysis on Monday she also started developing some nausea and vomiting. She was also complaining of some episodes of chest pain and she decided to come to emergency room. patient was evaluated in emergency room her vital examination on presentat ion reveals a temperature of 98 pulse 52 respiration 20 blood pressure 94/63 pulse ox 98% on room air, laboratory data was significant for slightly elevated white blood count of 12.5 hemoglobin 10.4 and platelet count of 191 sodium was 132 potassium 3.5 chloride 92 BUN 25 creatinine 3.34 glucose 125 normal liver enzymes with slightly elevated alkaline phosphatase and normal lipase, EKG done in the emergency room revealed atrial fibrillation with nonspecific ST and T wave abnormalities, patient was admitted to telemetry floor for further evaluation and treatment echocardiogram and carotid Doppler were ordered, cardiology consultation and nephrology consultation were requested. Patient was seen and examined on the telemetry floor, she is complaining of nausea, and generalized weakness, and dizziness otherwise she denies any complaints at this time there is no fever or chills, no headache no chest pain no shortness of breath no cough no vomiting no diarrhea no blood in the stools no burning with urination no frequency or urgency and no hematuria. On 05/18/2020 patient was seen and examined on the medical floor she is alert and oriented 3 in no apparent distress, she is complaining of nausea and occasional vomiting there is no fever or chills no headache or dizziness, no chest pain no shortness of breath no cough there is mild discomfort in the abdomen no diarrhea no blood in the stools no burning with urination no frequency or urgency and no hematuria. Abdomen x-ray is showing evidence of partial small bowel obstruction at this time patient will be kept nothing by mouth consultation for Dr. Vuong was initiated patient is well known to him he operated on her abdomen in the past. n 05/19/2020 patient was seen and examined on the medical floor she is alert and oriented 3 in no distress at this time she has NG tube in to suction she is feeling better with less abdominal pain otherwise she denies any complaints there is no fever or chills no headache or dizziness no chest pain no shortness of breath no cough no nausea or vomiting no burning with urination no frequency or urgency and no hematuria On 05/20/2020 patient is alert and oriented 3. Patient having low blood pressure and elevated heart rate. Patient has been ordered to transfer to the ICU. ICU nurse currently at bedside and midline has been placed. Critical care doctor Jen has ordered patient to be started on Levophed for pressure support at this time. Lactic acid did come back slightly elevated at 2.1. Blood cultures have been ordered Dr. Berman has been consulted. Blood pressure has im proved to 120s. Patient remains with NG tube dissection surgery is following. Per nephrology plans for hemodialysis today due to low blood pressure. Patient will be transferred to the intensive care unit for closer monitoring critical care and infectious disease consult placed at this time patient is alert and oriented. Patient reports that she did feel out of it when her pressure was low but has improved. Patient denies any chest pain or shortness of breath. Patient denies nausea vomiting or diarrhea. Patient denies any urinary burning or frequency. Per urology services also consulted and patient started on Zosyn. On 05/21/2020 patient was seen and examined in the ICU she is alert and oriented 3 in no apparent distress she is receiving hemodialysis at this time, NG tube is in to suction, she is complaining of pain in her hips otherwise she denies any complaints there is no fever or chills no headache or dizziness no chest pain no shortness of breath no cough no nausea or vomiting no abdominal pain no diarrhea no blood in the stools no burning with urination no frequency or urgency and no hematuria On 05/22/2020 patient remains in the intensive care unit alert and oriented currently getting hemodialysis. Patient remains on Levophed for pressure support. Potassium low at 2.7 placed per protocol per nursing staff. This time patient denies chest pain or shortness breath. Patient denies nausea vomiting or diarrhea. Patient denies any urinary burning or frequency. On 05/23/2020 patient was seen and examined in the intensive care unit, she is alert and oriented 3 in no apparent distress she is answering questions appropriately, NG tube has been removed, she states that she is passing some gas, no bowel movements, she is still complaining of some abdominal discomfort and pain otherwise she denies any complaints there is no fever or chills no headache or dizziness no chest pain no shortness of breath no cough no nausea or vomiting no diarrhea no blood in the stools no burning with urination no frequency or urgency and no hematuria On 05/24/2020 patient was seen and examined in the ICU she is alert and oriented 3 in no distress there is no fever or chills no headache or dizziness no chest pain no shortness of breath no cough no nausea or vomiting no abdominal pain no diarrhea no blood in the stools no burning with urination no frequency or urge ncy and no hematuria NG tube has been removed shouldn't is receiving clear liquid diet she has passed some gas but had no bowel movement yet she is feeling better she is maintained on oxygen via nasal cannula and tolerating well. On 05/25/2020 patient was seen and examined in the ICU she is alert and oriented 3 in no apparent distress, she is complaining of generalized weakness otherwise she denies any complaints at this time there is no fever or chills no headache or dizziness no chest pain no shortness of breath no cough no nausea or vomiting no abdominal pain no diarrhea and no urinary symptoms. On 05/26/2020 patient was seen and examined in the ICU she is alert and oriented in no distress she is maintained on oxygen via nasal cannula she is still on a small dose of Levophed for pressure support, there is no fever or chills no headache or dizziness no chest pain no shortness of breath no cough no nausea or vomiting no abdominal pain no diarrhea no burning with urination no frequency or urgency and no hematuria. On 05/27/2020 patient is alert and oriented x3. Currently resting comfortably in ICU getting hemodlysis. Per nursing staff patient has been of levophed for the past couple of hours. Patient denies any chest pain or shortness of breath. Denies any urinary burning or frequency. denies any nausea or vomiting. On 05/28/2020 patient was seen and examined in the ICU she is alert and oriented 3 in no apparent distress there is no fever or chills no headache or dizziness no chest pain no shortness of breath no cough no nausea or vomiting no abdominal pain no diarrhea no blood in the stools no burning with urination no frequency or urgency and no hematuria. Patient is doing better and was cleared to be transferred to a medical floor. Objective - Vital Signs Vital signs: Vital Signs Temp 97.5 F L 05/28/20 06:00 Pulse 87 05/28/20 11:00 Resp 22 05/28/20 11:00 BP 95/62 05/28/20 11:00 Pulse Ox 97 05/28/20 11:00 Intake & Output 05/27/20 05/28/20 05/28/20 18:59 06:59 18:59 Intake Total 1096 156 415 Output Total 2000 40 0 Balance -904 116 415 Weight 92.3 kg 90.8 kg Intake: IV 196 156 65 A-line pressure bag 36 36 15 Sodium Chloride 0.9% 1, 160 120 50 000 ml @ 20 mls/hr IV . Q24H [facility] Rx#:[id number] Oral 900 350 Output: Urine 0 40 0 Hemodialysis 1999 Other: Voiding Method Indwelling Catheter Indwelling Catheter # Voids 1 ABP, PAP, CO, CI - Last Documented Arterial Blood Pressure 124/73 - Exam in general patient is alert and oriented 3 in no apparent distress HEENT head normocephalic and atraumatic Neck is supple no JVD no goiter no lymphadenopathy Chest exam reveals a few scattered crackles bilaterally no wheezing Cardiac exam reveals regular heart sounds S1 and S2 no gallops no murmurs Abdomen is soft with tenderness in the epigastric area no organomegaly no palpable masses was normal bowel sounds Extremity exam reveals 1+ edema bilaterally no cyanosis or clubbing Neurological examination reveals no gross focal deficit - Labs CBC & Chem 7: 05/28/20 05:10 05/28/20 05:10 Labs: Abnormal Lab Results - Last 24 Hours (Table) 05/27/20 05/27/20 05/28/20 Range/Units 16:46 20:22 05:10 WBC 12.5 H (3.8-10.6) k/uL RBC 2.29 L (3.80-5.40) m/uL Hgb 8.5 L (11.4-16.0) gm/dL Hct 27.9 L (34.0-46.0) % MCV 121.9 H (80.0-100.0) fL MCH 37.0 H (25.0-35.0) pg MCHC 30.3 L (31.0-37.0) g/dL RDW 16.3 H (11.5-15.5) % Neutrophils # 11.1 H (1.3-7.7) k/uL Lymphocytes # 0.8 L (1.0-4.8) k/uL Macrocytosis Marked A Sodium (137-145) mmol/L Chloride (98-107) mmol/L BUN (7-17) mg/dL Creatinine (0.52-1.04) mg/dL Glucose (74-99) mg/dL POC Glucose (mg/dL) 172 H 149 H (75-99) mg/dL Calcium (8.4-10.2) mg/dL Phosphorus (2.5-4.5) mg/dL Total Protein (6.3-8.2) g/dL Albumin (3.5-5.0) g/dL 05/28/20 05/28/20 05/28/20 Range/Units 05:10 05:10 06:58 WBC (3.8-10.6) k/uL RBC (3.80-5.40) m/uL Hgb (11.4-16.0) gm/dL Hct (34.0-46.0) % MCV (80.0-100.0) fL MCH (25.0-35.0) pg MCHC (31.0-37.0) g/dL RDW (11.5-15.5) % Neutrophils # (1.3-7.7) k/uL Lymphocytes # (1.0-4.8) k/uL Macrocytosis Sodium 136 L (137-145) mmol/L Chloride 108 H (98-107) mmol/L BUN 26 H (7-17) mg/dL Creatinine 2.12 H (0.52-1.04) mg/dL Glucose 137 H (74-99) mg/dL POC Glucose (mg/dL) 129 H (75-99) mg/dL Calcium 8.1 L (8.4-10.2) mg/dL Phosphorus 2.2 L (2.5-4.5) mg/dL Total Protein 4.5 L (6.3-8.2) g/dL Albumin 2.1 L (3.5-5.0) g/dL 05/28/20 Range/Units 11:58 WBC (3.8-10.6) k/uL RBC (3.80-5.40) m/uL Hgb (11.4-16.0) gm/dL Hct (34.0-46.0) % MCV (80.0-100.0) fL MCH (25.0-35.0) pg MCHC (31.0-37.0) g/dL RDW (11.5-15.5) % Neutrophils # (1.3-7.7) k/uL Lymphocytes # (1.0-4.8) k/uL Macrocytosis Sodium (137-145) mmol/L Chloride (98-107) mmol/L BUN (7-17) mg/dL Creatinine (0.52-1.04) mg/dL Glucose (74-99) mg/dL POC Glucose (mg/dL) 159 H (75-99) mg/dL Calcium (8.4-10.2) mg/dL Phosphorus (2.5-4.5) mg/dL Total Protein (6.3-8.2) g/dL Albumin (3.5-5.0) g/dL Assessment and Plan Plan: 1. Partial mechanical small bowel obstruction with symptoms of nausea vomiting and generalized weakness and dizziness, cause is unclear, will check abdomen ultrasound. Surgical surfaces are following continue NG tube for decompression per surgical services. 2. Underlying history of end-stage renal disease on hemodialysis, nephrology consultation requested 3. Underlying history of chronic systolic congestive heart failure without evidence of exacerbation at this time. 2-D echo completed showing EF of 50-55%. Cardiology services consulted 4. Underlying history of chronic persistent atrial fibrillation 5. Underlying history of pulmonary hypertension 6. Underlying history of valvular heart disease 7. underlying history of diabetes mellitus 8. Hypotension. Blood pressure dropping to the 70s. Patient received 2 IV boluses. Patient has been ordered to transfer to intensive care unit and Levophed has been ordered per critical care. 9. Sepsis with Elevated lactic acid. Lactic acid 2.1. Patient started on Zosyn, blood culture ordered and infectious disease it security consultant, urinalysis is positive for urinary tract infection urine culture is positive for E. coli blood culture negative so far. 10. Hypokalemia correcteded Patient was transferred to the intensive care unit yesterday Critical care, infectious disease, nephrology, cardiology and surgical services following Patient started on IV Zosyn and blood culture ordered Prognosis is guarded due to age and multiple underlying morbidities.
[2020-05-28 20:42] LABS: Glucose,Whole Blood 154 mg/dL (75-99)
[2020-05-29] MEDS: HYDROCORTISONE SUCCINATE 100 MG/2 ML VIAL IV SCH ×2 (01:12→06:13)
[2020-05-29] MEDS: SODIUM CHLORIDE 0.9% 1,000 ML IV SCH ×2 (03:12→23:36)
[2020-05-29 04:20] LABS: Anisocytosis Slight; Basophils % (A) 0 %; Eosinophils % (A) 0 %; HCT 21.7 % (34.0-46.0); Hypochromasia Marked; Lymphocytes # (A) 0.5 k/uL (1.0-4.8); Lymphocytes % (A) 5 %; MCH 37.1 pg (25.0-35.0); MCHC 30.4 g/dL (31.0-37.0); MCV 122.2 fL (80.0-100.0); Monocytes # (A) 0.5 k/uL (0-1.0); Monocytes % (A) 4 %; Neutrophils # (A) 9.3 k/uL (1.3-7.7); Neutrophils % (A) 89 %; Platelet Count 134 k/uL (150-450); RBC 1.78 m/uL (3.80-5.40); RDW 16.3 % (11.5-15.5); WBC 10.4 k/uL (3.8-10.6)
[2020-05-29 04:31] LABS: Macrocytosis Marked
[2020-05-29 04:32] LABS: HGB 6.6 gm/dL (11.4-16.0)
[2020-05-29 05:28] LABS: Anisocytosis Slight; Basophils % (A) 0 %; Eosinophils % (A) 0 %; HCT 28.5 % (34.0-46.0); Hypochromasia Marked; Lymphocytes # (A) 0.7 k/uL (1.0-4.8); Lymphocytes % (A) 6 %; MCH 37.2 pg (25.0-35.0); MCHC 30.9 g/dL (31.0-37.0); MCV 120.3 fL (80.0-100.0); Mean Platelet Volume 9.6; Monocytes # (A) 0.3 k/uL (0-1.0); Monocytes % (A) 3 %; Neutrophils # (A) 11.5 k/uL (1.3-7.7); Neutrophils % (A) 90 %; Platelet Count 181 k/uL (150-450); RBC 2.37 m/uL (3.80-5.40); RDW 16.2 % (11.5-15.5); WBC 12.8 k/uL (3.8-10.6)
[2020-05-29 05:36] LABS: Albumin 2.1 g/dL (3.5-5.0); Total Bilirubin 0.9 mg/dL (0.2-1.3); Total Protein 4.5 g/dL (6.3-8.2)
[2020-05-29 05:41] LABS: HGB 8.8 gm/dL (11.4-16.0)
[2020-05-29 05:42] LABS: Macrocytosis Marked
[2020-05-29] MEDS: BRIMONIDINE TARTRATE 0.2% DROPS 5 ML BTL BOTH EYES SCH ×2 (06:14→20:59)
[2020-05-29] MEDS: DORZOLAMIDE HCL 2% DROPS 10 ML BTL BOTH EYES SCH ×2 (06:14→20:59)
[2020-05-29 07:24] LABS: Glucose,Whole Blood 138 mg/dL (75-99)
[2020-05-29] MEDS: INSULIN ASPART (NovoLOG) 100 UNIT/ML VIAL SQ SCH ×4 (07:26→21:05)
[2020-05-29] MEDS: MIDODRINE 5 MG TAB PO SCH ×3 (07:26→18:00)
[2020-05-29] MEDS: CALCIUM ACETATE 667 MG TAB PO SCH (08:30)
[2020-05-29] MEDS: METOPROLOL TARTRATE 25 MG TAB PO SCH ×2 (08:30→20:58)
[2020-05-29] MEDS: AMIODARONE 200 MG TAB PO SCH ×2 (08:30→20:58)
[2020-05-29] MEDS: BENEFIBER PO SCH (08:31)
[2020-05-29] MEDS: RIVAROXABAN 10 MG TAB PO SCH (08:31)
[2020-05-29] MEDS: TORSEMIDE 20 MG TAB PO SCH (08:31)
[2020-05-29] MEDS: NYSTATIN 100,000 UNIT/ML SUSP 500,000 UNIT/5 ML CUP PO SCH ×4 (08:31→21:41)
--- NOTE | 2020-05-29 09:08 | P.PN ---
Subjective Patient is seen in follow-up for end-stage renal disease. She is maintained on hemodialysis on Monday schedule. Oral intake improving. Off vasopressors. No chest pain or shortness of breath. Vital signs are stable. General: The patient appeared well nourished and normally developed. HEENT: Head exam is unremarkable. Neck is without jugular venous distension. LUNGS: Breath sounds decreased. HEART: Irregular rate and rhythm. ABDOMEN: Soft, nontender. EXTREMITITES: 1+ edema. Objective - Vital Signs Vital signs: Vital Signs Temp 98 F 05/29/20 08:00 Pulse 88 05/29/20 08:00 Resp 14 05/29/20 08:00 BP 107/63 05/29/20 08:00 Pulse Ox 95 05/29/20 08:00 Intake & Output 05/28/20 05/29/20 05/29/20 18:59 06:59 18:59 Intake Total 428 368 Output Total 0 0 Balance 428 368 Weight 92.5 kg Intake: IV 78 368 A-line pressure bag 18 48 Sodium Chloride 0.9% 1, 60 320 000 ml @ 20 mls/hr IV . Q24H [facility] Rx#:[id number] Oral 350 Output: Urine 0 0 Other: Voiding Method Indwelling Catheter Indwelling Catheter # Bowel Movements 1 ABP, PAP, CO, CI - Last Documented Arterial Blood Pressure 121/67 - Labs CBC & Chem 7: 05/29/20 05:15 05/29/20 05:15 Labs: Abnormal Lab Results - Last 24 Hours (Table) 05/28/20 05/28/20 05/28/20 Range/Units 05:10 11:58 16:54 WBC (3.8-10.6) k/uL RBC (3.80-5.40) m/uL Hgb (11.4-16.0) gm/dL Hct (34.0-46.0) % MCV (80.0-100.0) fL MCH (25.0-35.0) pg MCHC (31.0-37.0) g/dL RDW (11.5-15.5) % Plt Count (150-450) k/uL Neutrophils # (1.3-7.7) k/uL Lymphocytes # (1.0-4.8) k/uL Macrocytosis Sodium (137-145) mmol/L BUN (7-17) mg/dL Creatinine (0.52-1.04) mg/dL Glucose (74-99) mg/dL POC Glucose (mg/dL) 159 H 146 H (75-99) mg/dL Calcium (8.4-10.2) mg/dL Phosphorus 2.2 L (2.5-4.5) mg/dL Total Protein (6.3-8.2) g/dL Albumin (3.5-5.0) g/dL 05/28/20 05/29/20 05/29/20 Range/Units 20:41 04:05 05:15 WBC (3.8-10.6) k/uL RBC 1.78 L (3.80-5.40) m/uL Hgb 6.6 L* D (11.4-16.0) gm/dL Hct 21.7 L (34.0-46.0) % MCV 122.2 H (80.0-100.0) fL MCH 37.1 H (25.0-35.0) pg MCHC 30.4 L (31.0-37.0) g/dL RDW 16.3 H (11.5-15.5) % Plt Count 134 L (150-450) k/uL Neutrophils # 9.3 H (1.3-7.7) k/uL Lymphocytes # 0.5 L (1.0-4.8) k/uL Macrocytosis Marked A Sodium 135 L (137-145) mmol/L BUN 37 H (7-17) mg/dL Creatinine 2.52 H (0.52-1.04) mg/dL Glucose 135 H (74-99) mg/dL POC Glucose (mg/dL) 154 H (75-99) mg/dL Calcium 8.0 L (8.4-10.2) mg/dL Phosphorus (2.5-4.5) mg/dL Total Protein 4.5 L (6.3-8.2) g/dL Albumin 2.1 L (3.5-5.0) g/dL 05/29/20 05/29/20 Range/Units 05:15 07:23 WBC 12.8 H (3.8-10.6) k/uL RBC 2.37 L (3.80-5.40) m/uL Hgb 8.8 L D (11.4-16.0) gm/dL Hct 28.5 L (34.0-46.0) % MCV 120.3 H (80.0-100.0) fL MCH 37.2 H (25.0-35.0) pg MCHC 30.9 L (31.0-37.0) g/dL RDW 16.2 H (11.5-15.5) % Plt Count (150-450) k/uL Neutrophils # 11.5 H (1.3-7.7) k/uL Lymphocytes # 0.7 L (1.0-4.8) k/uL Macrocytosis Marked A Sodium (137-145) mmol/L BUN (7-17) mg/dL Creatinine (0.52-1.04) mg/dL Glucose (74-99) mg/dL POC Glucose (mg/dL) 138 H (75-99) mg/dL Calcium (8.4-10.2) mg/dL Phosphorus (2.5-4.5) mg/dL Total Protein (6.3-8.2) g/dL Albumin (3.5-5.0) g/dL Assessment and Plan Plan: Assessment: 1. End-stage renal disease maintained on hemodialysis on Monday schedule. 2. Small bowel obstruction. Tolerating oral intake. 3. A. fib with RVR maintained on amiodarone. 4. Hypotension, now off Levophed. On midodrine. 5. E. coli UTI maintain on antibiotics. 6. Chronic kidney disease mineral bone disease maintained on PhosLo. 7. Chronic diastolic CHF with mild to moderate mitral and tricuspid regurgitation. 8. Moderate pulmonary hypertension. 9. Edema secondary to hypoalbuminemia, ckd. 10. Anemia of chronic kidney disease maintained on Aranesp. Plan: Hemodialysis today. Hold PhosLo for now as phosphorus low.
--- NOTE | 2020-05-29 09:39 | P.PN ---
Subjective Progress Note Date: 05/29/20 Principal diagnosis: Acute ileus, end-stage renal disease, atrial fibrillation with RVR This is a very pleasant 85-year-old female patient who follows with Dr. Owen as her primary care provider. She has history of atrial fibrillation anticoagulated with Xarelto, poor vision, hypertension, diabetes mellitus, coronary artery disease, congestive heart failure, DVT, end-stage renal disease and on hemodialysis Monday since October 2019. She is a lifelong nonsmoker. She presented here on 05/16/2020 with complaints of abdominal discomfort and nausea and vomiting, poor appetite. She has been compliant with her dialysis treatments. CAT scan of the abdomen and pelvis revealed multiple fluid-filled small bowel loops. The appeared dilated.: Contains fluid and some fecal debris. Correlate for ileus. Partial small bowel obstruction not identified. Previous surgical changes with anastomosis appear chronic. Multiple ill-defined hypodensities scattered throughout the liver which appeared to have increased compared to 2017. She has been seen and evaluated by surgical services. Nasogastric tube has been placed. See well on the regular medical floor she developed hypotension and an A was called. She been transferred to the intensive care unit where consulted for the same. She has received 1-1/2 L of fluid resuscitation. She is initiated on norepinephrine currently at 0.16 mcg/kg/m. Blood cultures and urine cultures are pending. Right upper extremity midline placed. She remains awake and alert in no acute distress. Maintaining O2 saturations in the 90s on room air. She is in A. fib with RVR. She has been initiated on Zosyn. Reevaluated today on 05/21/20, patient remains in the ICU, remains on norepinephrine at 0.13 mcg/kg/m, IV fluid is at 100 mL/h, patient is on room air with O2 saturation of 95%. Cardizem was added today for her atrial fibrillation with RVR, and she is in atrial fibrillation with a rate of 144. Cardiology recommended oral metoprolol, however the patient has a nasogastric tube, and it is on continuous suction, patient lost her midline today, and I had to place a right subclavian central line for norepinephrine drip. Patient denies any shortness of breath, no cough, no wheezing, her abdominal pain and discomfort seems to be improved and better compared to the last 24 hours, nasogastric tube remains on suction. Patient is afebrile, urinalysis is showing evidence of hematuria and bacteriuria as well as pyuria. Will empirically place the patient on antibiotics in the form of Zosyn for now. Urine culture is pending. On 05/22/2020 patient seen in follow-up in the intensive care unit, she is cu rrently having dialysis with the goal of removal of 2 L of fluid blood pressure permitting. Room air pulse ox is 89-90%. Urine culture is showing gram- negative bacilli, final cultures pending, blood culture has shown no growth thus far. Patient remains on 13 mics per minute of Levophed, 0.9 normal saline at a rate of 100 ML per hour, Cardizem infusion at 15 mg per hour, patient remains in atrial fibrillation with a rate of 123 permanent, room air pulse ox is 94%. She is on Zosyn for antibiotic coverage. She has had no fever or chills. Yesterday chest x-ray showed no pneumothorax following left subclavian central venous catheter placement. No altered mentation, patient is awake and alert, oriented 3, answering questions appropriately. Denies any worsening dyspnea, denies any chest pain, no significant cough or congestion, no abdominal pain, NG tube remains in place with scant amount of gastric drainage overnight. Today's labs have been reviewed, showing white blood cell count 6.4, hemoglobin of 8.7, sodium is 140, potassium is 2.7, chloride is 107, CO2 is 20, B1 is 29, and c reatinine is 2.59. She has had no nausea or vomiting. No diarrhea, no abdominal pain. Patient is producing urine in the order of 30-40 mL per hour. On 05/25/2020 patient seen in follow-up in the intensive care unit, she is resting comfortably in bed, she is awake and alert, oriented 3, answers questions appropriately, she is on 1 L of oxygen pulse ox of 96-100%. She denies any acute respiratory distress, she is on clear liquid diet, apparently she had one episode of vomiting yesterday. She has not had a bowel movement since 05/19/2020, abdomen is soft, nontender, surgical services are following, NG tube has been discontinued. Current drips include 0.9 normal saline at 20 ML per hour, amiodarone drip remains on a 0.5 mg/m, and levo fed is at 20 mics per minute. Remains in atrial fibrillation with a rate of 101 BPM. Today's lab work has been reviewed showing a hemoglobin of 9.1, white blood count is 5.8, sodium is 137, potassium is 4.4, chloride is 108, BUN is 37 creatinine is 3.40 patient is on Zosyn for antibiotic coverage, she is also on oral Xarelto for anticoagulation. On 05/26/2020 patient seen in follow-up in the intensive care unit, she remains on vasopressor support, currently at 10 mics per minute of norepinephrine, point tenderness sitting is infusing at 20 ML per hour, altered mentation, patient is awake and oriented oriented 3, denies any acute distress, no worsening dyspnea, breathing pre-comfortably, she is on room air with a pulse ox of 96%, she has been upgraded to full liquid diet, and she is tolerating it well so far, no nausea or vomiting, abdomen is soft, she has not had a bowel movement yet but she is passing a lot of gas. Urgent call services are following. Lungs are diminished, no rhonchi, no wheezes, no rales, pulse ox of 97% on room air. Patient had hemodialysis yesterday and had 1 L of fluid removed, still has some additional generalized edema in bilateral lower extremities and upper extremities as well. She is on Rocephin urinary tract infection with a urine culture showing E. coli, blood culture has shown no growth. His labs have been reviewed, showing white blood cell count of 8.3, hemoglobin is 9.1, sodium is 140, potassium is 3.8, chloride is 112, BUN is 23 creatinine is 2.19 On 05/27/2020 patient seen in follow-up in the intensive care unit, she is wake and alert, resting comfortably in bed, breathing comfortably, she is on room air with a pulse ox of 100%, levo fed has been on hold since midnight, blood pre ssure is 110/58, patient is having hemodialysis treatment today. Still has some generalized edema involving upper and lower extremities, but no difficulty breathing. No chest pain, she is in atrial fibrillation slightly tachycardic, at times rate is up in the 110-115 BPM range. IV fluids with 0.9 normal saline infusing at a rate of 20 ML per hour. Continues on stress doses of IV hydrocortisone for relative adrenal insufficiency, at 50 mg every 6 hours. Patient is on Rocephin for antibiotic coverage, urine culture showed E. coli. Today's labs have been reviewed, show a blood cell, 9.1, hemoglobin of 8.9, sodium is 138, potassium is 4.5, chloride is 111, CO2 is 21, BUN is 31 creatinine is 2.68 On 05/28/2020 patient seen in follow-up in the intensive care unit, she is awake and alert, in no acute distress, off of vasopressor support, for 36 hours. Patient had hemodialysis yesterday, with 2 L of fluid removal. Breathing comfortably, she is on room air pulse ox of 97%. Lung sounds are clear, no nausea or vomiting, she is tolerating oral intake, abdomen is soft. She is on 0.9 normal saline at a rate of 10 ML per hour, remains on antibiotics form of Rocephin for E. coli urinary tract infection. Blood culture has shown no growth. On 05/29/2020 patient seen in follow-up in intensive care unit. She is resting comfortably in bed, she is in no acute distress, breathing comfortably, she is on room air with a pulse ox of 95%, lung sounds reveal a few scattered rhonchi, no wheezing, patient denies any chest pain, her vital signs have been stable, she's been afebrile, and is on Rocephin for E. coli in her urine cultures. Patient has been treated with Rocephin for 7 days, we will switch her to oral Omnicef today, blood pressure has been stable, we'll stop the IV hydrocortisone and start patient on prednisone. tolerating Oral intake, no nausea vomiting no diarrhea. Objective - Vital Signs Vital signs: Vital Signs Temp 98 F 05/29/20 08:00 Pulse 88 05/29/20 08:00 Resp 14 05/29/20 08:00 BP 107/63 05/29/20 08:00 Pulse Ox 95 05/29/20 08:00 Intake & Output 05/28/20 05/29/20 05/29/20 18:59 06:59 18:59 Intake Total 428 368 Output Total 0 0 Balance 428 368 Weight 92.5 kg Intake: IV 78 368 A-line pressure bag 18 48 Sodium Chloride 0.9% 1, 60 320 000 ml @ 20 mls/hr IV . Q24H [facility] Rx#:[id number] Oral 350 Output: Urine 0 0 Other: Voiding Method Indwelling Catheter Indwelling Catheter # Bowel Movements 1 ABP, PAP, CO, CI - Last Documented Arterial Blood Pressure 121/67 - Exam GENERAL EXAM: Alert, very pleasant, 85-year-old white female, on room air with pulse ox of 95-100% resting comfortably in bed, she is oriented 3, responding appropriately, comfortable in no apparent distress. HEAD: Normocephalic/atraumatic. EYES: Normal reaction of pupils, equal size. Conjunctiva pink, sclera white. NOSE: Clear with pink turbinates. THROAT: No erythema or exudates. NECK: No masses, no JVD, no thyroid enlargement, no adenopathy. CHEST: No chest wall deformity. Symmetrical expansion. LUNGS: Equal air entry with no crackles, wheeze, rhonchi or dullness. CVS: Irregular rate and rhythm, normal S1 and S2, no gallops, no murmurs, no rubs ABDOMEN: Soft, nontender. No hepatosplenomegaly, normal bowel sounds, no guarding or rigidity. EXTREMITIES: No clubbing, 1+ lower extremity edema, no cyanosis, 2+ pulses and upper and lower extremities. MUSCULOSKELETAL: Muscle strength and tone normal. SPINE: No scoliosis or deformity SKIN: No rashes CENTRAL NERVOUS SYSTEM: Alert and oriented -3. No focal deficits, tone is normal in all 4 extremities. PSYCHIATRIC: Alert and oriented -3. Appropriate affect. Intact judgment and insight. - Labs CBC & Chem 7: 05/29/20 05:15 05/29/20 05:15 Labs: Abnormal Lab Results - Last 24 Hours (Table) 05/28/20 05/28/20 05/28/20 Range/Units 05:10 11:58 16:54 WBC (3.8-10.6) k/uL RBC (3.80-5.40) m/uL Hgb (11.4-16.0) gm/dL Hct (34.0-46.0) % MCV (80.0-100.0) fL MCH (25.0-35.0) pg MCHC (31.0-37.0) g/dL RDW (11.5-15.5) % Plt Count (150-450) k/uL Neutrophils # (1.3-7.7) k/uL Lymphocytes # (1.0-4.8) k/uL Macrocytosis Sodium (137-145) mmol/L BUN (7-17) mg/dL Creatinine (0.52-1.04) mg/dL Glucose (74-99) mg/dL POC Glucose (mg/dL) 159 H 146 H (75-99) mg/dL Calcium (8.4-10.2) mg/dL Phosphorus 2.2 L (2.5-4.5) mg/dL Total Protein (6.3-8.2) g/dL Albumin (3.5-5.0) g/dL 05/28/20 05/29/20 05/29/20 Range/Units 20:41 04:05 05:15 WBC (3.8-10.6) k/uL RBC 1.78 L (3.80-5.40) m/uL Hgb 6.6 L* D (11.4-16.0) gm/dL Hct 21.7 L (34.0-46.0) % MCV 122.2 H (80.0-100.0) fL MCH 37.1 H (25.0-35.0) pg MCHC 30.4 L (31.0-37.0) g/dL RDW 16.3 H (11.5-15.5) % Plt Count 134 L (150-450) k/uL Neutrophils # 9.3 H (1.3-7.7) k/uL Lymphocytes # 0.5 L (1.0-4.8) k/uL Macrocytosis Marked A Sodium 135 L (137-145) mmol/L BUN 37 H (7-17) mg/dL Creatinine 2.52 H (0.52-1.04) mg/dL Glucose 135 H (74-99) mg/dL POC Glucose (mg/dL) 154 H (75-99) mg/dL Calcium 8.0 L (8.4-10.2) mg/dL Phosphorus (2.5-4.5) mg/dL Total Protein 4.5 L (6.3-8.2) g/dL Albumin 2.1 L (3.5-5.0) g/dL 05/29/20 05/29/20 Range/Units 05:15 07:23 WBC 12.8 H (3.8-10.6) k/uL RBC 2.37 L (3.80-5.40) m/uL Hgb 8.8 L D (11.4-16.0) gm/dL Hct 28.5 L (34.0-46.0) % MCV 120.3 H (80.0-100.0) fL MCH 37.2 H (25.0-35.0) pg MCHC 30.9 L (31.0-37.0) g/dL RDW 16.2 H (11.5-15.5) % Plt Count (150-450) k/uL Neutrophils # 11.5 H (1.3-7.7) k/uL Lymphocytes # 0.7 L (1.0-4.8) k/uL Macrocytosis Marked A Sodium (137-145) mmol/L BUN (7-17) mg/dL Creatinine (0.52-1.04) mg/dL Glucose (74-99) mg/dL POC Glucose (mg/dL) 138 H (75-99) mg/dL Calcium (8.4-10.2) mg/dL Phosphorus (2.5-4.5) mg/dL Total Protein (6.3-8.2) g/dL Albumin (3.5-5.0) g/dL Assessment and Plan Plan: Assessment: #1. Acute abdominal pain secondary to ileus versus partial bowel obstruction, and the patient with a history of previous bowel resection. NG Tube has been discontinued on 05/23/2020, and today on 05/26/2020 patient is tolerating oral intake, no nausea or vomiting, passing gas #2. Hypovolemic hypotension in addition to septic shock related to urinary source, urine culture showed E. coli, resolved, and norepinephrine has been on hold for 36 hours today on 05/28/2020 On 05/27/2020 patient has been off the vasopressor support for 9 hours, remains on stress doses of hydrocortisone On 05/28/2020 patient has remained off vasopressor support for 36 hours, remains on stress doses of hydrocortisone #3. Acute urinary tract infection, with the urine culture showing gram-negative bacilli, urine culture showed E. coli #4. A. fib with RVR, currently on amiodarone and Xarelto for anticoagulation, rate is now controlled #5. History of hypertension #6. End-stage renal disease on hemodialysis #7. History of anemia heart disease #8. History of pulmonary hypertension #9. History of DVT with previous [place] filter placement #10. History of GERD #11. History of valvular heart disease and pulmonary hypertension Plan: We will stop the IV Rocephin, switch the patient to oral Omnicef 300 mg twice daily. Blood pressure has been stable, patient has not had any vasopressor support in the last 2 days, we'll stop the IV hydrocortisone and switch the patient to oral prednisone 20 mg daily. No fever or chills. Vital signs have been stable, awaiting hemodialysis today. Patient stable to go out of intensive care unit to general medical surgical floor. Consult physical therapy, from pulmonary perspective patient can be considered for discharge home if cleared by medicine I performed a history & physical examination of the patient and discussed their management with my nurse practitioner, Ava Gaxiola. I reviewed the nurse practitioner's note and agree with the documented findings and plan of care. Lung sounds are positive for clear breath sounds. The findings and the impression was discussed with the patient. I attest to the documentation by the nurse practitioner. Time with Patient: Less than 30
--- NOTE | 2020-05-29 10:09 | PN ---
PROGRESS NOTE Mrs Carrillo is in atrial fibrillation, rate is controlled. She is doing well. She is on dialysis, off all pressors. Resting comfortably. Vitals are stable, no JVD. S1, S2 heard normally. Irregular rhythm noted, short systolic murmur noted. Lungs revealed decent air entry. Abdomen and lower extremity exam unchanged. Plan is to increase activity, move her to the medical floor and continue the current combination of amiodarone and metoprolol. Amiodarone can be discontinued in 6 weeks or so. MMODL / IJN: [id number] /
[2020-05-29] MEDS: predniSONE 20 MG TAB PO SCH (11:33)
[2020-05-29] MEDS: CEFDINIR 300 MG CAP PO SCH (11:33)
[2020-05-29 12:37] LABS: Glucose,Whole Blood 122 mg/dL (75-99)
--- NOTE | 2020-05-29 15:13 | P.PN ---
Subjective Progress Note Date: 05/29/20 Trina Carrillo, is an 85-year-old female who presented to [facility] emergency room with a chief complaint of dizziness and lightheadedness and generalized weakness, patient has a known history of end-stage renal disease on hemodialysis Monday and Monday, chronic systolic congestive heart failure, chronic atrial fibrillation, pulmonary hypertension, and valvular heart disease with aortic stenosis and severe tricuspid regurgitation, severe mitral regurgitation. Patient stated that her symptoms started when she returned from hemodialysis on Monday she also started developing some nausea and vomiting. She was also complaining of some episodes of chest pain and she decided to come to emergency room. patient was evaluated in emergency room her vital examination on presentat ion reveals a temperature of 98 pulse 52 respiration 20 blood pressure 94/63 pulse ox 98% on room air, laboratory data was significant for slightly elevated white blood count of 12.5 hemoglobin 10.4 and platelet count of 191 sodium was 132 potassium 3.5 chloride 92 BUN 25 creatinine 3.34 glucose 125 normal liver enzymes with slightly elevated alkaline phosphatase and normal lipase, EKG done in the emergency room revealed atrial fibrillation with nonspecific ST and T wave abnormalities, patient was admitted to telemetry floor for further evaluation and treatment echocardiogram and carotid Doppler were ordered, cardiology consultation and nephrology consultation were requested. Patient was seen and examined on the telemetry floor, she is complaining of nausea, and generalized weakness, and dizziness otherwise she denies any complaints at this time there is no fever or chills, no headache no chest pain no shortness of breath no cough no vomiting no diarrhea no blood in the stools no burning with urination no frequency or urgency and no hematuria. On 05/18/2020 patient was seen and examined on the medical floor she is alert and oriented 3 in no apparent distress, she is complaining of nausea and occasional vomiting there is no fever or chills no headache or dizziness, no chest pain no shortness of breath no cough there is mild discomfort in the abdomen no diarrhea no blood in the stools no burning with urination no frequency or urgency and no hematuria. Abdomen x-ray is showing evidence of partial small bowel obstruction at this time patient will be kept nothing by mouth consultation for Dr. Vuong was initiated patient is well known to him he operated on her abdomen in the past. n 05/19/2020 patient was seen and examined on the medical floor she is alert and oriented 3 in no distress at this time she has NG tube in to suction she is feeling better with less abdominal pain otherwise she denies any complaints there is no fever or chills no headache or dizziness no chest pain no shortness of breath no cough no nausea or vomiting no burning with urination no frequency or urgency and no hematuria On 05/20/2020 patient is alert and oriented 3. Patient having low blood pressure and elevated heart rate. Patient has been ordered to transfer to the ICU. ICU nurse currently at bedside and midline has been placed. Critical care doctor Jen has ordered patient to be started on Levophed for pressure support at this time. Lactic acid did come back slightly elevated at 2.1. Blood cultures have been ordered Dr. Bermna has been consulted. Blood pressure has im proved to 120s. Patient remains with NG tube dissection surgery is following. Per nephrology plans for hemodialysis today due to low blood pressure. Patient will be transferred to the intensive care unit for closer monitoring critical care and infectious disease consult placed at this time patient is alert and oriented. Patient reports that she did feel out of it when her pressure was low but has improved. Patient denies any chest pain or shortness of breath. Patient denies nausea vomiting or diarrhea. Patient denies any urinary burning or frequency. Per urology services also consulted and patient started on Zosyn. On 05/21/2020 patient was seen and examined in the ICU she is alert and oriented 3 in no apparent distress she is receiving hemodialysis at this time, NG tube is in to suction, she is complaining of pain in her hips otherwise she denies any complaints there is no fever or chills no headache or dizziness no chest pain no shortness of breath no cough no nausea or vomiting no abdominal pain no diarrhea no blood in the stools no burning with urination no frequency or urgency and no hematuria On 05/22/2020 patient remains in the intensive care unit alert and oriented currently getting hemodialysis. Patient remains on Levophed for pressure support. Potassium low at 2.7 placed per protocol per nursing staff. This time patient denies chest pain or shortness breath. Patient denies nausea vomiting or diarrhea. Patient denies any urinary burning or frequency. On 05/23/2020 patient was seen and examined in the intensive care unit, she is alert and oriented 3 in no apparent distress she is answering questions appropriately, NG tube has been removed, she states that she is passing some gas, no bowel movements, she is still complaining of some abdominal discomfort and pain otherwise she denies any complaints there is no fever or chills no headache or dizziness no chest pain no shortness of breath no cough no nausea or vomiting no diarrhea no blood in the stools no burning with urination no frequency or urgency and no hematuria On 05/24/2020 patient was seen and examined in the ICU she is alert and oriented 3 in no distress there is no fever or chills no headache or dizziness no chest pain no shortness of breath no cough no nausea or vomiting no abdominal pain no diarrhea no blood in the stools no burning with urination no frequency or urge ncy and no hematuria NG tube has been removed shouldn't is receiving clear liquid diet she has passed some gas but had no bowel movement yet she is feeling better she is maintained on oxygen via nasal cannula and tolerating well. On 05/25/2020 patient was seen and examined in the ICU she is alert and oriented 3 in no apparent distress, she is complaining of generalized weakness otherwise she denies any complaints at this time there is no fever or chills no headache or dizziness no chest pain no shortness of breath no cough no nausea or vomiting no abdominal pain no diarrhea and no urinary symptoms. On 05/26/2020 patient was seen and examined in the ICU she is alert and oriented in no distress she is maintained on oxygen via nasal cannula she is still on a small dose of Levophed for pressure support, there is no fever or chills no headache or dizziness no chest pain no shortness of breath no cough no nausea or vomiting no abdominal pain no diarrhea no burning with urination no frequency or urgency and no hematuria. On 05/27/2020 patient is alert and oriented x3. Currently resting comfortably in ICU getting hemodlysis. Per nursing staff patient has been of levophed for the past couple of hours. Patient denies any chest pain or shortness of breath. Denies any urinary burning or frequency. denies any nausea or vomiting. On 05/28/2020 patient was seen and examined in the ICU she is alert and oriented 3 in no apparent distress there is no fever or chills no headache or dizziness no chest pain no shortness of breath no cough no nausea or vomiting no abdominal pain no diarrhea no blood in the stools no burning with urination no frequency or urgency and no hematuria. Patient is doing better and was cleared to be transferred to a medical floor. On 05/29/2020 patient was seen and examined in the ICU she is alert and oriented 3 in no distress there is no fever or chills no headache or dizziness no chest pain no shortness of breath no cough no nausea or vomiting no abdominal pain no diarrhea and no urinary symptoms. Plenty of severe weakness with inability to stand or walk, she underwent hemodialysis this morning. Objective - Vital Signs Vital signs: Vital Signs Temp 96.8 F L 05/29/20 12:00 Pulse 89 05/29/20 12:00 Resp 19 05/29/20 12:00 BP 91/61 05/29/20 12:00 Pulse Ox 94 L 05/29/20 12:00 Intake & Output 05/28/20 05/29/20 05/29/20 18:59 06:59 18:59 Intake Total 428 368 Output Total 0 0 Balance 428 368 Weight 92.5 kg Intake: IV 78 368 A-line pressure bag 18 48 Sodium Chloride 0.9% 1, 60 320 000 ml @ 20 mls/hr IV . Q24H [facility] Rx#:[id number] Oral 350 Output: Urine 0 0 Other: Voiding Method Indwelling Catheter Indwelling Catheter # Bowel Movements 1 ABP, PAP, CO, CI - Last Documented Arterial Blood Pressure 108/58 - Exam in general patient is alert and oriented 3 in no apparent distress HEENT head normocephalic and atraumatic Neck is supple no JVD no goiter no lymphadenopathy Chest exam reveals a few scattered crackles bilaterally no wheezing Cardiac exam reveals regular heart sounds S1 and S2 no gallops no murmurs Abdomen is soft with tenderness in the epigastric area no organomegaly no palpable masses was normal bowel sounds Extremity exam reveals 1+ edema bilaterally no cyanosis or clubbing Neurological examination reveals no gross focal deficit - Labs CBC & Chem 7: 05/29/20 05:15 05/29/20 05:15 Labs: Abnormal Lab Results - Last 24 Hours (Table) 05/28/20 05/28/20 05/29/20 Range/Units 16:54 20:41 04:05 WBC (3.8-10.6) k/uL RBC 1.78 L (3.80-5.40) m/uL Hgb 6.6 L* D (11.4-16.0) gm/dL Hct 21.7 L (34.0-46.0) % MCV 122.2 H (80.0-100.0) fL MCH 37.1 H (25.0-35.0) pg MCHC 30.4 L (31.0-37.0) g/dL RDW 16.3 H (11.5-15.5) % Plt Count 134 L (150-450) k/uL Neutrophils # 9.3 H (1.3-7.7) k/uL Lymphocytes # 0.5 L (1.0-4.8) k/uL Macrocytosis Marked A Sodium (137-145) mmol/L BUN (7-17) mg/dL Creatinine (0.52-1.04) mg/dL Glucose (74-99) mg/dL POC Glucose (mg/dL) 146 H 154 H (75-99) mg/dL Calcium (8.4-10.2) mg/dL Total Protein (6.3-8.2) g/dL Albumin (3.5-5.0) g/dL 05/29/20 05/29/20 05/29/20 Range/Units 05:15 05:15 07:23 WBC 12.8 H (3.8-10.6) k/uL RBC 2.37 L (3.80-5.40) m/uL Hgb 8.8 L D (11.4-16.0) gm/dL Hct 28.5 L (34.0-46.0) % MCV 120.3 H (80.0-100.0) fL MCH 37.2 H (25.0-35.0) pg MCHC 30.9 L (31.0-37.0) g/dL RDW 16.2 H (11.5-15.5) % Plt Count (150-450) k/uL Neutrophils # 11.5 H (1.3-7.7) k/uL Lymphocytes # 0.7 L (1.0-4.8) k/uL Macrocytosis Marked A Sodium 135 L (137-145) mmol/L BUN 37 H (7-17) mg/dL Creatinine 2.52 H (0.52-1.04) mg/dL Glucose 135 H (74-99) mg/dL POC Glucose (mg/dL) 138 H (75-99) mg/dL Calcium 8.0 L (8.4-10.2) mg/dL Total Protein 4.5 L (6.3-8.2) g/dL Albumin 2.1 L (3.5-5.0) g/dL 05/29/20 Range/Units 12:35 WBC (3.8-10.6) k/uL RBC (3.80-5.40) m/uL Hgb (11.4-16.0) gm/dL Hct (34.0-46.0) % MCV (80.0-100.0) fL MCH (25.0-35.0) pg MCHC (31.0-37.0) g/dL RDW (11.5-15.5) % Plt Count (150-450) k/uL Neutrophils # (1.3-7.7) k/uL Lymphocytes # (1.0-4.8) k/uL Macrocytosis Sodium (137-145) mmol/L BUN (7-17) mg/dL Creatinine (0.52-1.04) mg/dL Glucose (74-99) mg/dL POC Glucose (mg/dL) 122 H (75-99) mg/dL Calcium (8.4-10.2) mg/dL Total Protein (6.3-8.2) g/dL Albumin (3.5-5.0) g/dL Assessment and Plan Plan: 1. Partial mechanical small bowel obstruction with symptoms of nausea vomiting and generalized weakness and dizziness, cause is unclear, will check abdomen ultrasound. Surgical surfaces are following continue NG tube for decompression per surgical services. 2. Underlying history of end-stage renal disease on hemodialysis, nephrology consultation requested 3. Underlying history of chronic systolic congestive heart failure without evidence of exacerbation at this time. 2-D echo completed showing EF of 50-55%. Cardiology services consulted 4. Underlying history of chronic persistent atrial fibrillation 5. Underlying history of pulmonary hypertension 6. Underlying history of valvular heart disease 7. underlying history of diabetes mellitus 8. Hypotension. Blood pressure dropping to the 70s. Patient received 2 IV boluses. Patient has been ordered to transfer to intensive care unit and Levophed has been ordered per critical care. 9. Sepsis with Elevated lactic acid. Lactic acid 2.1. Patient started on Zosyn, blood culture ordered and infectious disease technical marketing consultant, urinalysis is positive for urinary tract infection urine culture is positive for E. coli blood culture negative so far. 10. Hypokalemia correcteded Patient was transferred to the intensive care unit yesterday Critical care, infectious disease, nephrology, cardiology and surgical services following Patient started on IV Zosyn and blood culture ordered Prognosis is guarded due to age and multiple underlying morbidities.
--- NOTE | 2020-05-29 16:23 | P.PN ---
Subjective Progress Note Date: 05/29/20 Principal diagnosis: Ileus Patient doing well today. No new complaints. Tolerating diet. Denies abdominal pain. Awaiting bed on the floor. Possible rehab. Objective - Vital Signs Vital signs: Vital Signs Temp 97.5 F L 05/29/20 16:00 Pulse 90 05/29/20 16:00 Resp 17 05/29/20 16:00 BP 103/56 05/29/20 16:00 Pulse Ox 93 L 05/29/20 16:00 Intake & Output 05/28/20 05/29/20 05/29/20 18:59 06:59 18:59 Intake Total 428 368 124 Output Total 0 0 1000 Balance 428 368 -876 Weight 92.5 kg Intake: IV 78 368 124 A-line pressure bag 18 48 24 Sodium Chloride 0.9% 1, 60 320 100 000 ml @ 20 mls/hr IV . Q24H [facility] Rx#:[id number] Oral 350 Output: Urine 0 0 0 Hemodialysis 1000 Other: Voiding Method Indwelling Catheter Indwelling Catheter # Bowel Movements 1 ABP, PAP, CO, CI - Last Documented Arterial Blood Pressure 121/57 - Exam Abdomen: Soft, nontender, nondistended - Labs CBC & Chem 7: 05/29/20 05:15 05/29/20 05:15 Labs: Abnormal Lab Results - Last 24 Hours (Table) 05/28/20 05/28/20 05/29/20 Range/Units 16:54 20:41 04:05 WBC (3.8-10.6) k/uL RBC 1.78 L (3.80-5.40) m/uL Hgb 6.6 L* D (11.4-16.0) gm/dL Hct 21.7 L (34.0-46.0) % MCV 122.2 H (80.0-100.0) fL MCH 37.1 H (25.0-35.0) pg MCHC 30.4 L (31.0-37.0) g/dL RDW 16.3 H (11.5-15.5) % Plt Count 134 L (150-450) k/uL Neutrophils # 9.3 H (1.3-7.7) k/uL Lymphocytes # 0.5 L (1.0-4.8) k/uL Macrocytosis Marked A Sodium (137-145) mmol/L BUN (7-17) mg/dL Creatinine (0.52-1.04) mg/dL Glucose (74-99) mg/dL POC Glucose (mg/dL) 146 H 154 H (75-99) mg/dL Calcium (8.4-10.2) mg/dL Total Protein (6.3-8.2) g/dL Albumin (3.5-5.0) g/dL 05/29/20 05/29/20 05/29/20 Range/Units 05:15 05:15 07:23 WBC 12.8 H (3.8-10.6) k/uL RBC 2.37 L (3.80-5.40) m/uL Hgb 8.8 L D (11.4-16.0) gm/dL Hct 28.5 L (34.0-46.0) % MCV 120.3 H (80.0-100.0) fL MCH 37.2 H (25.0-35.0) pg MCHC 30.9 L (31.0-37.0) g/dL RDW 16.2 H (11.5-15.5) % Plt Count (150-450) k/uL Neutrophils # 11.5 H (1.3-7.7) k/uL Lymphocytes # 0.7 L (1.0-4.8) k/uL Macrocytosis Marked A Sodium 135 L (137-145) mmol/L BUN 37 H (7-17) mg/dL Creatinine 2.52 H (0.52-1.04) mg/dL Glucose 135 H (74-99) mg/dL POC Glucose (mg/dL) 138 H (75-99) mg/dL Calcium 8.0 L (8.4-10.2) mg/dL Total Protein 4.5 L (6.3-8.2) g/dL Albumin 2.1 L (3.5-5.0) g/dL 05/29/20 Range/Units 12:35 WBC (3.8-10.6) k/uL RBC (3.80-5.40) m/uL Hgb (11.4-16.0) gm/dL Hct (34.0-46.0) % MCV (80.0-100.0) fL MCH (25.0-35.0) pg MCHC (31.0-37.0) g/dL RDW (11.5-15.5) % Plt Count (150-450) k/uL Neutrophils # (1.3-7.7) k/uL Lymphocytes # (1.0-4.8) k/uL Macrocytosis Sodium (137-145) mmol/L BUN (7-17) mg/dL Creatinine (0.52-1.04) mg/dL Glucose (74-99) mg/dL POC Glucose (mg/dL) 122 H (75-99) mg/dL Calcium (8.4-10.2) mg/dL Total Protein (6.3-8.2) g/dL Albumin (3.5-5.0) g/dL Assessment and Plan (1) Ileus Narrative/Plan: Patient doing better at this time. Continue diet as tolerated. I will be away this weekend. Dr. Sow will be covering in case of emergencies. These contact her if necessary. Otherwise I will resume coverage of this patient on Monday. Current Visit: Yes Status: Acute Code(s): K56.7 - ILEUS, UNSPECIFIED SNOMED Code(s): 299312624
[2020-05-29 17:14] LABS: Glucose,Whole Blood 214 mg/dL (75-99)
[2020-05-29] MEDS: traMADol 50 MG TAB PO PRN (20:58)
[2020-05-29 21:04] LABS: Glucose,Whole Blood 168 mg/dL (75-99)
[2020-05-30 06:42] LABS: Anisocytosis Slight; Basophils % (A) 0 %; Eosinophils % (A) 0 %; HCT 31.8 % (34.0-46.0); HGB 9.7 gm/dL (11.4-16.0); Hypochromasia Moderate; Lymphocytes # (A) 1.1 k/uL (1.0-4.8); Lymphocytes % (A) 7 %; MCH 36.6 pg (25.0-35.0); MCHC 30.4 g/dL (31.0-37.0); MCV 120.2 fL (80.0-100.0); Mean Platelet Volume 9.7; Monocytes # (A) 0.6 k/uL (0-1.0); Monocytes % (A) 3 %; Neutrophils # (A) 15.3 k/uL (1.3-7.7); Neutrophils % (A) 88 %; Platelet Count 193 k/uL (150-450); RBC 2.64 m/uL (3.80-5.40); RDW 17.1 % (11.5-15.5); WBC 17.4 k/uL (3.8-10.6)
[2020-05-30 06:44] LABS: Macrocytosis Marked
[2020-05-30 06:49] LABS: Glucose,Whole Blood 124 mg/dL (75-99)
[2020-05-30 06:51] LABS: Albumin 2.2 g/dL (3.5-5.0); Calcium 8.3 mg/dL (8.4-10.2); Total Protein 5.1 g/dL (6.3-8.2)
[2020-05-30 06:59] LABS: Potassium 4.3 mmol/L (3.5-5.1)
[2020-05-30] MEDS: INSULIN ASPART (NovoLOG) 100 UNIT/ML VIAL SQ SCH ×4 (07:18→20:09)
[2020-05-30] MEDS: NYSTATIN 100,000 UNIT/ML SUSP 500,000 UNIT/5 ML CUP PO SCH ×4 (08:51→20:08)
[2020-05-30] MEDS: MIDODRINE 5 MG TAB PO SCH ×3 (08:51→17:24)
[2020-05-30] MEDS: RIVAROXABAN 10 MG TAB PO SCH (08:52)
[2020-05-30] MEDS: METOPROLOL TARTRATE 25 MG TAB PO SCH ×2 (08:52→20:08)
[2020-05-30] MEDS: TORSEMIDE 20 MG TAB PO SCH (08:52)
[2020-05-30] MEDS: CEFDINIR 300 MG CAP PO SCH (08:52)
[2020-05-30] MEDS: AMIODARONE 200 MG TAB PO SCH ×2 (08:52→20:08)
[2020-05-30] MEDS: predniSONE 20 MG TAB PO SCH (08:52)
[2020-05-30] MEDS: DORZOLAMIDE HCL 2% DROPS 10 ML BTL BOTH EYES SCH ×2 (08:52→20:08)
[2020-05-30] MEDS: BRIMONIDINE TARTRATE 0.2% DROPS 5 ML BTL BOTH EYES SCH ×2 (08:53→20:08)
[2020-05-30 11:27] LABS: Glucose,Whole Blood 168 mg/dL (75-99)
[2020-05-30] MEDS: BENEFIBER PO SCH (11:40)
--- NOTE | 2020-05-30 13:03 | PN ---
PROGRESS NOTE Patient is seen for followup for end-stage renal disease. The patient has been eating. Her intake has slightly improved. No significant diarrhea. PHYSICAL EXAMINATION: Blood pressure was 96/58, heart rate 83 per minute, patient is afebrile. She is noted to have edema, 1+ bilateral lower extremities and some in the upper extremities as well. Abdomen is soft, nontender. MAGAZINE SUPERVISOR exam grossly intact. Patient moving all 4 extremities. LAB: Show sodium 139, potassium 4.3, BUN 29, creatinine 2.0, hemoglobin 9.7 g/dL. ASSESSMENT: 1. End-stage renal disease, on hemodialysis on a Monday, Monday, Monday schedule. Next dialysis 06/01/2020. 2. Small bowel obstruction, currently improved. 3. Atrial fibrillation with RVR maintained on amiodarone. 4. Escherichia coli urinary tract infection, maintained on antibiotics. 5. Chronic kidney disease mineral bone disorder. 6. Moderate pulmonary hypertension. 7. Anemia of chronic disease maintained on Aranesp. PLAN: Continue to encourage increased oral intake. Next dialysis 06/01/2020. MMODL / IJN: [id number] /
--- NOTE | 2020-05-30 13:45 | P.PN ---
Subjective Progress Note Date: 05/30/20 Trina Carrillo, is an 85-year-old female who presented to [facility] emergency room with a chief complaint of dizziness and lightheadedness and generalized weakness, patient has a known history of end-stage renal disease on hemodialysis Monday and Monday, chronic systolic congestive heart failure, chronic atrial fibrillation, pulmonary hypertension, and valvular heart disease with aortic stenosis and severe tricuspid regurgitation, severe mitral regurgitation. Patient stated that her symptoms started when she returned from hemodialysis on Monday she also started developing some nausea and vomiting. She was also complaining of some episodes of chest pain and she decided to come to emergency room. patient was evaluated in emergency room her vital examination on presentat ion reveals a temperature of 98 pulse 52 respiration 20 blood pressure 94/63 pulse ox 98% on room air, laboratory data was significant for slightly elevated white blood count of 12.5 hemoglobin 10.4 and platelet count of 191 sodium was 132 potassium 3.5 chloride 92 BUN 25 creatinine 3.34 glucose 125 normal liver enzymes with slightly elevated alkaline phosphatase and normal lipase, EKG done in the emergency room revealed atrial fibrillation with nonspecific ST and T wave abnormalities, patient was admitted to telemetry floor for further evaluation and treatment echocardiogram and carotid Doppler were ordered, cardiology consultation and nephrology consultation were requested. Patient was seen and examined on the telemetry floor, she is complaining of nausea, and generalized weakness, and dizziness otherwise she denies any complaints at this time there is no fever or chills, no headache no chest pain no shortness of breath no cough no vomiting no diarrhea no blood in the stools no burning with urination no frequency or urgency and no hematuria. On 05/18/2020 patient was seen and examined on the medical floor she is alert and oriented 3 in no apparent distress, she is complaining of nausea and occasional vomiting there is no fever or chills no headache or dizziness, no chest pain no shortness of breath no cough there is mild discomfort in the abdomen no diarrhea no blood in the stools no burning with urination no frequency or urgency and no hematuria. Abdomen x-ray is showing evidence of partial small bowel obstruction at this time patient will be kept nothing by mouth consultation for Dr. Vuong was initiated patient is well known to him he operated on her abdomen in the past. n 05/19/2020 patient was seen and examined on the medical floor she is alert and oriented 3 in no distress at this time she has NG tube in to suction she is feeling better with less abdominal pain otherwise she denies any complaints there is no fever or chills no headache or dizziness no chest pain no shortness of breath no cough no nausea or vomiting no burning with urination no frequency or urgency and no hematuria On 05/20/2020 patient is alert and oriented 3. Patient having low blood pressure and elevated heart rate. Patient has been ordered to transfer to the ICU. ICU nurse currently at bedside and midline has been placed. Critical care doctor Jen has ordered patient to be started on Levophed for pressure support at this time. Lactic acid did come back slightly elevated at 2.1. Blood cultures have been ordered Dr. Berman has been consulted. Blood pressure has im proved to 120s. Patient remains with NG tube dissection surgery is following. Per nephrology plans for hemodialysis today due to low blood pressure. Patient will be transferred to the intensive care unit for closer monitoring critical care and infectious disease consult placed at this time patient is alert and oriented. Patient reports that she did feel out of it when her pressure was low but has improved. Patient denies any chest pain or shortness of breath. Patient denies nausea vomiting or diarrhea. Patient denies any urinary burning or frequency. Per urology services also consulted and patient started on Zosyn. On 05/21/2020 patient was seen and examined in the ICU she is alert and oriented 3 in no apparent distress she is receiving hemodialysis at this time, NG tube is in to suction, she is complaining of pain in her hips otherwise she denies any complaints there is no fever or chills no headache or dizziness no chest pain no shortness of breath no cough no nausea or vomiting no abdominal pain no diarrhea no blood in the stools no burning with urination no frequency or urgency and no hematuria On 05/22/2020 patient remains in the intensive care unit alert and oriented currently getting hemodialysis. Patient remains on Levophed for pressure support. Potassium low at 2.7 placed per protocol per nursing staff. This time patient denies chest pain or shortness breath. Patient denies nausea vomiting or diarrhea. Patient denies any urinary burning or frequency. On 05/23/2020 patient was seen and examined in the intensive care unit, she is alert and oriented 3 in no apparent distress she is answering questions appropriately, NG tube has been removed, she states that she is passing some gas, no bowel movements, she is still complaining of some abdominal discomfort and pain otherwise she denies any complaints there is no fever or chills no headache or dizziness no chest pain no shortness of breath no cough no nausea or vomiting no diarrhea no blood in the stools no burning with urination no frequency or urgency and no hematuria On 05/24/2020 patient was seen and examined in the ICU she is alert and oriented 3 in no distress there is no fever or chills no headache or dizziness no chest pain no shortness of breath no cough no nausea or vomiting no abdominal pain no diarrhea no blood in the stools no burning with urination no frequency or urge ncy and no hematuria NG tube has been removed shouldn't is receiving clear liquid diet she has passed some gas but had no bowel movement yet she is feeling better she is maintained on oxygen via nasal cannula and tolerating well. On 05/25/2020 patient was seen and examined in the ICU she is alert and oriented 3 in no apparent distress, she is complaining of generalized weakness otherwise she denies any complaints at this time there is no fever or chills no headache or dizziness no chest pain no shortness of breath no cough no nausea or vomiting no abdominal pain no diarrhea and no urinary symptoms. On 05/26/2020 patient was seen and examined in the ICU she is alert and oriented in no distress she is maintained on oxygen via nasal cannula she is still on a small dose of Levophed for pressure support, there is no fever or chills no headache or dizziness no chest pain no shortness of breath no cough no nausea or vomiting no abdominal pain no diarrhea no burning with urination no frequency or urgency and no hematuria. On 05/27/2020 patient is alert and oriented x3. Currently resting comfortably in ICU getting hemodlysis. Per nursing staff patient has been of levophed for the past couple of hours. Patient denies any chest pain or shortness of breath. Denies any urinary burning or frequency. denies any nausea or vomiting. On 05/28/2020 patient was seen and examined in the ICU she is alert and oriented 3 in no apparent distress there is no fever or chills no headache or dizziness no chest pain no shortness of breath no cough no nausea or vomiting no abdominal pain no diarrhea no blood in the stools no burning with urination no frequency or urgency and no hematuria. Patient is doing better and was cleared to be transferred to a medical floor. On 05/29/2020 patient was seen and examined in the ICU she is alert and oriented 3 in no distress there is no fever or chills no headache or dizziness no chest pain no shortness of breath no cough no nausea or vomiting no abdominal pain no diarrhea and no urinary symptoms. Plenty of severe weakness with inability to stand or walk, she underwent hemodialysis this morning. On 05/30/2020 patient was seen and examined on the medical floor she is alert and oriented 3 in no apparent distress she is not maintained on any oxygen at this time she is complaining of severe weakness with inability to stand or walk otherwise she denies any complaints there is no fever or chills no headache or dizziness no chest pain no shortness of breath no cough no nausea or vomiting no abdominal pain no diarrhea no blood in the stools no burning with urination no frequency or urgency and no hematuria. Patient is tolerating diet well. Objective - Vital Signs Vital signs: Vital Signs Temp 97.9 F 05/30/20 07:00 Pulse 83 05/30/20 07:35 Resp 16 05/30/20 07:35 BP 96/58 05/30/20 07:00 Pulse Ox 97 05/30/20 07:00 Intake & Output 05/29/20 05/30/20 05/30/20 18:59 06:59 18:59 Intake Total 124 50 50 Output Total 1000 Balance -876 50 50 Intake: IV 124 A-line pressure bag 24 Sodium Chloride 0.9% 1, 100 000 ml @ 20 mls/hr IV . Q24H [facility] Rx#:[id number] Oral 50 50 Output: Urine 0 Hemodialysis 1000 Other: Voiding Method Bedpan Bedpan # Voids 1 ABP, PAP, CO, CI - Last Documented Arterial Blood Pressure 106/50 - Exam in general patient is alert and oriented 3 in no apparent distress HEENT head normocephalic and atraumatic Neck is supple no JVD no goiter no lymphadenopathy Chest exam reveals a few scattered crackles bilaterally no wheezing Cardiac exam reveals regular heart sounds S1 and S2 no gallops no murmurs Abdomen is soft with tenderness in the epigastric area no organomegaly no palpable masses was normal bowel sounds Extremity exam reveals 1+ edema bilaterally no cyanosis or clubbing Neurological examination reveals no gross focal deficit - Labs CBC & Chem 7: 05/30/20 06:00 05/30/20 06:00 Labs: Abnormal Lab Results - Last 24 Hours (Table) 05/29/20 05/29/20 05/30/20 Range/Units 17:13 21:03 06:00 WBC 17.4 H (3.8-10.6) k/uL RBC 2.64 L (3.80-5.40) m/uL Hgb 9.7 L (11.4-16.0) gm/dL Hct 31.8 L (34.0-46.0) % MCV 120.2 H (80.0-100.0) fL MCH 36.6 H (25.0-35.0) pg MCHC 30.4 L (31.0-37.0) g/dL RDW 17.1 H (11.5-15.5) % Neutrophils # 15.3 H (1.3-7.7) k/uL Macrocytosis Marked A Chloride (98-107) mmol/L BUN (7-17) mg/dL Creatinine (0.52-1.04) mg/dL Glucose (74-99) mg/dL POC Glucose (mg/dL) 214 H 168 H (75-99) mg/dL Calcium (8.4-10.2) mg/dL Total Protein (6.3-8.2) g/dL Albumin (3.5-5.0) g/dL 05/30/20 05/30/20 05/30/20 Range/Units 06:00 06:48 11:25 WBC (3.8-10.6) k/uL RBC (3.80-5.40) m/uL Hgb (11.4-16.0) gm/dL Hct (34.0-46.0) % MCV (80.0-100.0) fL MCH (25.0-35.0) pg MCHC (31.0-37.0) g/dL RDW (11.5-15.5) % Neutrophils # (1.3-7.7) k/uL Macrocytosis Chloride 112 H (98-107) mmol/L BUN 29 H (7-17) mg/dL Creatinine 2.04 H (0.52-1.04) mg/dL Glucose 136 H (74-99) mg/dL POC Glucose (mg/dL) 124 H 168 H (75-99) mg/dL Calcium 8.3 L (8.4-10.2) mg/dL Total Protein 5.1 L (6.3-8.2) g/dL Albumin 2.2 L (3.5-5.0) g/dL Assessment and Plan Plan: 1. Partial mechanical small bowel obstruction with symptoms of nausea vomiting and generalized weakness and dizziness, cause is unclear, will check abdomen ultrasound. Surgical surfaces are following continue NG tube for decompression per surgical services. 2. Underlying history of end-stage renal disease on hemodialysis, nephrology consultation requested 3. Underlying history of chronic systolic congestive heart failure without evidence of exacerbation at this time. 2-D echo completed showing EF of 50-55%. Cardiology services consulted 4. Underlying history of chronic persistent atrial fibrillation 5. Underlying history of pulmonary hypertension 6. Underlying history of valvular heart disease 7. underlying history of diabetes mellitus 8. Hypotension. Blood pressure dropping to the 70s. Patient received 2 IV boluses. Patient has been ordered to transfer to intensive care unit and Levophed has been ordered per critical care. 9. Sepsis with Elevated lactic acid. Lactic acid 2.1. Patient started on Zosyn, blood culture ordered and infectious disease process consultant, urinalysis is positive for urinary tract infection urine culture is positive for E. coli blood culture negative so far. 10. Hypokalemia correcteded Patient was transferred to the intensive care unit yesterday Critical care, infectious disease, nephrology, cardiology and surgical services following Patient started on IV Zosyn and blood culture ordered Prognosis is guarded due to age and multiple underlying morbidities.
[2020-05-30] MEDS: traMADol 50 MG TAB PO PRN (15:00)
[2020-05-30 16:43] LABS: Glucose,Whole Blood 184 mg/dL (75-99)
[2020-05-30 19:59] LABS: Glucose,Whole Blood 204 mg/dL (75-99)
[2020-05-31] MEDS: SODIUM CHLORIDE 0.9% 1,000 ML IV SCH (03:16)
[2020-05-31 06:52] LABS: Glucose,Whole Blood 124 mg/dL (75-99)
[2020-05-31] MEDS: INSULIN ASPART (NovoLOG) 100 UNIT/ML VIAL SQ SCH ×4 (07:03→20:16)
[2020-05-31] MEDS: AMIODARONE 200 MG TAB PO SCH ×3 (09:44→20:17)
[2020-05-31] MEDS: NYSTATIN 100,000 UNIT/ML SUSP 500,000 UNIT/5 ML CUP PO SCH ×4 (09:44→23:08)
[2020-05-31] MEDS: TORSEMIDE 20 MG TAB PO SCH (09:44)
[2020-05-31] MEDS: RIVAROXABAN 10 MG TAB PO SCH (09:44)
[2020-05-31] MEDS: predniSONE 20 MG TAB PO SCH (09:44)
[2020-05-31] MEDS: METOPROLOL TARTRATE 25 MG TAB PO SCH ×2 (09:44→20:17)
[2020-05-31] MEDS: MIDODRINE 5 MG TAB PO SCH ×3 (09:44→17:36)
[2020-05-31] MEDS: DORZOLAMIDE HCL 2% DROPS 10 ML BTL BOTH EYES SCH ×2 (09:44→20:17)
[2020-05-31] MEDS: CEFDINIR 300 MG CAP PO SCH (09:44)
[2020-05-31] MEDS: BRIMONIDINE TARTRATE 0.2% DROPS 5 ML BTL BOTH EYES SCH ×2 (09:45→20:17)
[2020-05-31] MEDS: BENEFIBER PO SCH (09:45)
--- NOTE | 2020-05-31 10:27 | P.PN ---
Subjective Progress Note Date: 05/31/20 Trina Carrillo, is an 85-year-old female who presented to [facility] emergency room with a chief complaint of dizziness and lightheadedness and generalized weakness, patient has a known history of end-stage renal disease on hemodialysis Monday and Monday, chronic systolic congestive heart failure, chronic atrial fibrillation, pulmonary hypertension, and valvular heart disease with aortic stenosis and severe tricuspid regurgitation, severe mitral regurgitation. Patient stated that her symptoms started when she returned from hemodialysis on Monday she also started developing some nausea and vomiting. She was also complaining of some episodes of chest pain and she decided to come to emergency room. patient was evaluated in emergency room her vital examination on presentation reveals a temperature of 98 pulse 52 respiration 20 blood pressure 94/63 pulse ox 98% on room air, laboratory data was significant for slightly elevated white blood count of 12.5 hemoglobin 10.4 and platelet count of 191 sodium was 132 potassium 3.5 chloride 92 BUN 25 creatinine 3.34 glucose 125 normal liver enzymes with slightly elevated alkaline phosphatase and normal lipase, EKG done in the emergency room revealed atrial fibrillation with nonspecific ST and T wave abnormalities, patient was admitted to telemetry floor for further evaluation and treatment echocardiogram and carotid Doppler were ordered, cardiology consultation and nephrology consultation were requested. Patient was seen and examined on the telemetry floor, she is complaining of nausea, and generalized weakness, and dizziness otherwise she denies any complaints at this time there is no fever or chills, no headache no chest pain no shortness of breath no cough no vomiting no diarrhea no blood in the stools no burning with urination no frequency or urgency and no hematuria. On 05/18/2020 patient was seen and examined on the medical floor she is alert and oriented 3 in no apparent distress, she is complaining of nausea and occasional vomiting there is no fever or chills no headache or dizziness, no chest pain no shortness of breath no cough there is mild discomfort in the abdomen no diarrhea no blood in the stools no burning with urination no frequency or urgency and no hematuria. Abdomen x-ray is showing evidence of partial small bowel obstruction at this time patient will be kept nothing by mouth consultation for Dr. Vuong was initiated patient is well known to him he operated on her abdomen in the past. n 05/19/2020 patient was seen and examined on the medical floor she is alert and oriented 3 in no distress at this time she has NG tube in to suction she is feeling better with less abdominal pain otherwise she denies any complaints there is no fever or chills no headache or dizziness no chest pain no shortness of breath no cough no nausea or vomiting no burning with urination no frequency or urgency and no hematuria On 05/20/2020 patient is alert and oriented 3. Patient having low blood pressure and elevated heart rate. Patient has been ordered to transfer to the ICU. ICU nurse currently at bedside and midline has been placed. Critical care doctor Jen has ordered patient to be started on Levophed for pressure support at this time. Lactic acid did come back slightly elevated at 2.1. Blood cultures have been ordered Dr. Berman has been consulted. Blood pressure has imp roved to 120s. Patient remains with NG tube dissection surgery is following. Per nephrology plans for hemodialysis today due to low blood pressure. Patient will be transferred to the intensive care unit for closer monitoring critical care and infectious disease consult placed at this time patient is alert and oriented. Patient reports that she did feel out of it when her pressure was low but has improved. Patient denies any chest pain or shortness of breath. Patient denies nausea vomiting or diarrhea. Patient denies any urinary burning or frequency. Per urology services also consulted and patient started on Zosyn. On 05/21/2020 patient was seen and examined in the ICU she is alert and oriented 3 in no apparent distress she is receiving hemodialysis at this time, NG tube is in to suction, she is complaining of pain in her hips otherwise she denies any complaints there is no fever or chills no headache or dizziness no chest pain no shortness of breath no cough no nausea or vomiting no abdominal pain no diarrhea no blood in the stools no burning with urination no frequency or urgency and no hematuria On 05/22/2020 patient remains in the intensive care unit alert and oriented currently getting hemodialysis. Patient remains on Levophed for pressure support. Potassium low at 2.7 placed per protocol per nursing staff. This time patient denies chest pain or shortness breath. Patient denies nausea vomiting or diarrhea. Patient denies any urinary burning or frequency. On 05/23/2020 patient was seen and examined in the intensive care unit, she is alert and oriented 3 in no apparent distress she is answering questions appropriately, NG tube has been removed, she states that she is passing some gas, no bowel movements, she is still complaining of some abdominal discomfort and pain otherwise she denies any complaints there is no fever or chills no headache or dizziness no chest pain no shortness of breath no cough no nausea or vomiting no diarrhea no blood in the stools no burning with urination no frequency or urgency and no hematuria On 05/24/2020 patient was seen and examined in the ICU she is alert and oriented 3 in no distress there is no fever or chills no headache or dizziness no chest pain no shortness of breath no cough no nausea or vomiting no abdominal pain no diarrhea no blood in the stools no burning with urination no frequency or urgen cy and no hematuria NG tube has been removed shouldn't is receiving clear liquid diet she has passed some gas but had no bowel movement yet she is feeling better she is maintained on oxygen via nasal cannula and tolerating well. On 05/25/2020 patient was seen and examined in the ICU she is alert and oriented 3 in no apparent distress, she is complaining of generalized weakness otherwise she denies any complaints at this time there is no fever or chills no headache or dizziness no chest pain no shortness of breath no cough no nausea or vomiting no abdominal pain no diarrhea and no urinary symptoms. On 05/26/2020 patient was seen and examined in the ICU she is alert and oriented in no distress she is maintained on oxygen via nasal cannula she is still on a small dose of Levophed for pressure support, there is no fever or chills no headache or dizziness no chest pain no shortness of breath no cough no nausea or vomiting no abdominal pain no diarrhea no burning with urination no frequency or urgency and no hematuria On 05/27/2020 patient is alert and oriented x3. Currently resting comfortably in ICU getting hemodlysis. Per nursing staff patient has been of levophed for the past couple of hours. Patient denies any chest pain or shortness of breath. Denies any urinary burning or frequency. denies any nausea or vomiting. On 05/28/2020 patient was seen and examined in the ICU she is alert and oriented 3 in no apparent distress there is no fever or chills no headache or dizziness no chest pain no shortness of breath no cough no nausea or vomiting no abdominal pain no diarrhea no blood in the stools no burning with urination no frequency or urgency and no hematuria. Patient is doing better and was cleared to be transferred to a medical floor. On 05/29/2020 patient was seen and examined in the ICU she is alert and oriented 3 in no distress there is no fever or chills no headache or dizziness no chest pain no shortness of breath no cough no nausea or vomiting no abdominal pain no diarrhea and no urinary symptoms. Plenty of severe weakness with inability to stand or walk, she underwent hemodialysis this morning. On 05/30/2020 patient was seen and examined on the medical floor she is alert and oriented 3 in no apparent distress she is not maintained on any oxygen at this time she is complaining of severe weakness with inability to stand or walk otherwise she denies any complaints there is no fever or chills no headache or dizziness no chest pain no shortness of breath no cough no nausea or vomiting no abdominal pain no diarrhea no blood in the stools no burning with urination no frequency or urgency and no hematuria. Patient is tolerating diet well. On 05/31/2020 patient is alert and oriented 3 resting comfortably in bed. Patient received hemodialysis tomorrow. Blood pressures have improved. This time patient denies chest pain or shortness breath. Patient denies nausea vomiting or diarrhea. Patient denies any urinary burning or frequency Objective - Vital Signs Vital signs: Vital Signs Temp 97.6 F 05/31/20 07:00 Pulse 83 05/31/20 07:05 Resp 18 05/31/20 07:05 BP 132/63 05/31/20 07:00 Pulse Ox 99 05/31/20 00:55 Intake & Output 05/30/20 05/31/20 05/31/20 18:59 06:59 18:59 Intake Total 500 100 Output Total 0 Balance 500 100 Intake: Oral 500 100 Output: Urine 0 Other: Voiding Method Bedpan Bedpan Bedpan # Voids 3 0 ABP, PAP, CO, CI - Last Documented Arterial Blood Pressure 106/50 - Exam in general patient is alert and oriented 3 in no apparent distress HEENT head normocephalic and atraumatic Neck is supple no JVD no goiter no lymphadenopathy Chest exam reveals a few scattered crackles bilaterally no wheezing Cardiac exam reveals regular heart sounds S1 and S2 no gallops no murmurs Abdomen is soft with tenderness in the epigastric area no organomegaly no palpable masses was normal bowel sounds Extremity exam reveals 1+ edema bilaterally no cyanosis or clubbing Neurological examination reveals no gross focal deficit - Labs CBC & Chem 7: 05/30/20 06:00 05/30/20 06:00 Labs: Abnormal Lab Results - Last 24 Hours (Table) 05/30/20 05/30/20 05/30/20 Range/Units 11:25 16:41 19:58 POC Glucose (mg/dL) 168 H 184 H 204 H (75-99) mg/dL 05/31/20 Range/Units 06:50 POC Glucose (mg/dL) 124 H (75-99) mg/dL Assessment and Plan Assessment: Plan: 1. Partial mechanical small bowel obstruction with symptoms of nausea vomiting and generalized weakness and dizziness, cause is unclear, will check abdomen ultrasound. Surgical surfaces are following. patient has been advanced to soft diet 2. Underlying history of end-stage renal disease on hemodialysis, nephrology consultation requested 3. Underlying history of chronic systolic congestive heart failure without evidence of exacerbation at this time. 2-D echo completed showing EF of 50-55%. Cardiology services following 4. Underlying history of chronic persistent atrial fibrillation 5. Underlying history of pulmonary hypertension 6. Underlying history of valvular heart disease 7. underlying history of diabetes mellitus 8. Hypotension. Blood pressure dropping to the 70s. Patient received 2 IV boluses. Patient has been ordered to transfer to intensive care unit and Levophed has been ordered per critical care. Levophed currently on hold. Patient was given IV hydrocortisone per critical care has been switched over to oral prednisone. Midodrine also added. 9. Elevated lactic acid. Lactic acid 2.1. Patient started on Zosyn, blood culture ordered and infectious disease quantitative consultant 10. Hypokalemia. potassium 2.7 replacement protocol 11. Urinary tract infection. urine culture positive for ecoli. ID following. maintained on rocephin. Patient has been switched over to oral Omnicef per critical care DVT prophylaxis Xarelto. GI prophylaxis Protonix She has been transferred to medical floor Critical care, infectious disease, nephrology, cardiology and surgical services following Prognosis is guarded due to age and multiple underlying morbidities. PT and OT consulted patient may need possible ECF placement I performed an examination of the patient and discussed their management with the Nurse Practitioner. I have reviewed the Nurse Practitioner's notes and agree with the documented findings and plan of care
[2020-05-31 11:26] LABS: Glucose,Whole Blood 135 mg/dL (75-99)
--- NOTE | 2020-05-31 12:35 | PN ---
PROGRESS NOTE The patient is seen for followup for end-stage renal disease. She is currently awake. She is confused, not in acute distress. The patient believes she is at [facility]. PHYSICAL EXAMINATION: On examination today, blood pressure was 132/63, heart rate 83 per minute. She is afebrile. Examination of the heart S1, S2. Examination of the lungs, bilateral breath sounds are heard. Decreased breath sounds at bases. Abdomen is soft, nontender. Examination lower extremities, edema 2+ bilaterally upper and lower extremities. LABS SHOW: Sodium 139, potassium 4.3, BUN 29, creatinine 2.0 hemoglobin 9.7 g/dL from 05/30/2020. ASSESSMENT: 1. End-stage renal disease, on hemodialysis on a Monday, Monday, Monday schedule. 2. Volume overload, expect improvement post hemodialysis tomorrow. 3. Generalized debility, slowly improving. 4. Small bowel obstruction, status post NG tube, currently improved. Patient is being followed by surgery. 5. Urinary tract infection. Urine culture positive for E coli maintained on antibiotics. 6. History of chronic atrial fibrillation. 7. Diastolic congestive heart failure, ejection fraction 50%-55%. PLAN: Hemodialysis in a.m. with UF about 2-2.5 L as tolerated. MMODL / IJN: [id number] /
[2020-05-31 16:48] LABS: Glucose,Whole Blood 177 mg/dL (75-99)
[2020-05-31 20:09] LABS: Glucose,Whole Blood 183 mg/dL (75-99)
[2020-06-01] MEDS: SODIUM CHLORIDE 0.9% 1,000 ML IV SCH (03:29)
[2020-06-01 06:42] LABS: Glucose,Whole Blood 109 mg/dL (75-99)
[2020-06-01 06:50] LABS: Anisocytosis Slight; Basophils % (A) 0 %; Eosinophils % (A) 0 %; HCT 32.9 % (34.0-46.0); HGB 9.8 gm/dL (11.4-16.0); Hypochromasia Marked; Lymphocytes # (A) 1.4 k/uL (1.0-4.8); Lymphocytes % (A) 9 %; MCH 36.1 pg (25.0-35.0); MCHC 29.9 g/dL (31.0-37.0); MCV 120.7 fL (80.0-100.0); Macrocytosis Marked; Mean Platelet Volume 8.7; Monocytes # (A) 0.4 k/uL (0-1.0); Monocytes % (A) 3 %; Neutrophils # (A) 13.7 k/uL (1.3-7.7); Neutrophils % (A) 86 %; Platelet Count 239 k/uL (150-450); RBC 2.72 m/uL (3.80-5.40); RDW 16.1 % (11.5-15.5); WBC 15.8 k/uL (3.8-10.6)
[2020-06-01] MEDS: MIDODRINE 5 MG TAB PO SCH ×3 (08:06→16:47)
[2020-06-01] MEDS: ONDANSETRON 4 MG/2 ML VIAL IVP PRN (08:10)
[2020-06-01] MEDS: PANTOPRAZOLE 40 MG TABLET PO SCH (08:34)
[2020-06-01] MEDS: METOPROLOL TARTRATE 25 MG TAB PO SCH ×2 (08:34→21:09)
[2020-06-01] MEDS: AMIODARONE 200 MG TAB PO SCH ×2 (08:34→21:09)
[2020-06-01] MEDS: predniSONE 20 MG TAB PO SCH (08:34)
[2020-06-01] MEDS: CEFDINIR 300 MG CAP PO SCH (08:35)
[2020-06-01] MEDS: INSULIN ASPART (NovoLOG) 100 UNIT/ML VIAL SQ SCH ×4 (08:35→21:02)
[2020-06-01] MEDS: RIVAROXABAN 10 MG TAB PO SCH (08:35)
[2020-06-01] MEDS: TORSEMIDE 20 MG TAB PO SCH (08:36)
[2020-06-01] MEDS: BENEFIBER PO SCH (08:36)
[2020-06-01] MEDS: NYSTATIN 100,000 UNIT/ML SUSP 500,000 UNIT/5 ML CUP PO SCH ×4 (08:37→21:09)
[2020-06-01] MEDS: DORZOLAMIDE HCL 2% DROPS 10 ML BTL BOTH EYES SCH ×2 (08:48→21:09)
[2020-06-01] MEDS: BRIMONIDINE TARTRATE 0.2% DROPS 5 ML BTL BOTH EYES SCH ×2 (08:48→21:09)
--- NOTE | 2020-06-01 10:53 | P.PN ---
Subjective Progress Note Date: 06/01/20 Principal diagnosis: Ileus Patient denies pain. She did have 1 episode of vomiting earlier today. She is having bowel movements. She is hungry. Remains slightly confused. White blood cell count 15.8. Objective - Vital Signs Vital signs: Vital Signs Temp 97.8 F 06/01/20 07:00 Pulse 100 06/01/20 07:00 Resp 18 06/01/20 07:45 BP 138/82 06/01/20 07:00 Pulse Ox 97 06/01/20 07:00 Intake & Output 05/31/20 06/01/20 06/01/20 18:59 06:59 18:59 Intake Total 400 100 Output Total 0 250 Balance 400 -150 Intake: Oral 400 100 Output: Urine 0 250 Other: Voiding Method Bedpan Bedpan # Voids 1 1 1 # Bowel Movements 2 1 ABP, PAP, CO, CI - Last Documented Arterial Blood Pressure 106/50 - Exam Abdomen: Soft, nondistended, nontender - Labs CBC & Chem 7: 06/01/20 06:25 05/30/20 06:00 Labs: Abnormal Lab Results - Last 24 Hours (Table) 05/31/20 05/31/20 05/31/20 Range/Units 11:23 16:47 20:08 WBC (3.8-10.6) k/uL RBC (3.80-5.40) m/uL Hgb (11.4-16.0) gm/dL Hct (34.0-46.0) % MCV (80.0-100.0) fL MCH (25.0-35.0) pg MCHC (31.0-37.0) g/dL RDW (11.5-15.5) % Neutrophils # (1.3-7.7) k/uL Macrocytosis POC Glucose (mg/dL) 135 H 177 H 183 H (75-99) mg/dL 06/01/20 06/01/20 Range/Units 06:25 06:39 WBC 15.8 H (3.8-10.6) k/uL RBC 2.72 L (3.80-5.40) m/uL Hgb 9.8 L (11.4-16.0) gm/dL Hct 32.9 L (34.0-46.0) % MCV 120.7 H (80.0-100.0) fL MCH 36.1 H (25.0-35.0) pg MCHC 29.9 L (31.0-37.0) g/dL RDW 16.1 H (11.5-15.5) % Neutrophils # 13.7 H (1.3-7.7) k/uL Macrocytosis Marked A POC Glucose (mg/dL) 109 H (75-99) mg/dL Assessment and Plan (1) Ileus Narrative/Plan: Continue regular diet. Monitor for further vomiting or nausea. Apparently family talking with primary service regarding possible rehab. Current Visit: Yes Status: Acute Code(s): K56.7 - ILEUS, UNSPECIFIED SNOMED Code(s): 909908951
[2020-06-01 11:05] VITALS: BMI 37.3
[2020-06-01 11:31] LABS: Glucose,Whole Blood 139 mg/dL (75-99)
[2020-06-01] MEDS: DARBEPOETIN ALFA 40 MCG/0.4 ML SYRINGE SQ SCH (11:48)
[2020-06-01] MEDS ORDERED: MIDODRINE 5 MG TAB PO PRN (13:02)
--- NOTE | 2020-06-01 14:12 | PN ---
PROGRESS NOTE Patient is seen for followup for end-stage renal disease. She is currently awake, comfortable. She is confused. She is not in any acute distress. Blood pressure was 138/82, heart rate 100 per minute, patient is afebrile. Examination of the heart S1, S2. Examination of the lungs, bilateral breath sounds are heard. Abdomen is soft, nontender. Examination of the lower extremities shows edema 2+ bilaterally, upper and lower extremities. [employer] exam shows patient is moving all 4 extremities, but she is confused. LABS: Show hemoglobin 9.8 g/dL from today. We have electrolytes on 05/30 showed serum potassium 4.3. ASSESSMENT: 1. End-stage renal disease, on hemodialysis on a Monday, Monday, Monday schedule. 2. Volume overload. Will try to increase UF as tolerated today. 3. Small bowel obstruction, status post NG tube. Tolerating oral intake. However, overall intake remains poor. 4. Anemia of chronic disease, maintained on Aranesp, status post packed RBCs transfusion on 05/29/2020. 5. Urinary tract infection, maintained on antibiotics. 6. History of chronic atrial fibrillation. 7. Diastolic CHF, EF 50-55 percent plan hemodialysis today with UF about 2-2.5 L as tolerated. MMODL / IJN: [id number] /
[2020-06-01 15:48] LABS: African American GFR (CKD) 16.2 (60.0-200.0); Albumin 2.9 g/dL (3.80-4.90); Albumin/Globulin Ratio 1.38 (1.60-3.17); Anion Gap 11.6 mmol/L (4.00-12.00); BUN/Creat Ratio 17.24 Ratio (12.00-20.00); Carbon Dioxide 21.4 mmol/L (21.6-31.8); Globulin 2.1 g/dL (1.6-3.3); Potassium 4.2 mmol/L (3.5-5.5); Total Bilirubin 0.9 mg/dL (0.3-1.2)
[2020-06-01] MEDS: traMADol 50 MG TAB PO PRN (16:00)
[2020-06-01 16:41] LABS: Glucose,Whole Blood 108 mg/dL (75-99)
--- NOTE | 2020-06-01 17:44 | P.PN ---
Subjective Progress Note Date: 06/01/20 Trina Carrillo, is an 85-year-old female who presented to [facility] emergency room with a chief complaint of dizziness and lightheadedness and generalized weakness, patient has a known history of end-stage renal disease on hemodialysis Monday and Monday, chronic systolic congestive heart failure, chronic atrial fibrillation, pulmonary hypertension, and valvular heart disease with aortic stenosis and severe tricuspid regurgitation, severe mitral regurgitation. Patient stated that her symptoms started when she returned from hemodialysis on Monday she also started developing some nausea and vomiting. She was also complaining of some episodes of chest pain and she decided to come to emergency room. patient was evaluated in emergency room her vital examination on presentat ion reveals a temperature of 98 pulse 52 respiration 20 blood pressure 94/63 pulse ox 98% on room air, laboratory data was significant for slightly elevated white blood count of 12.5 hemoglobin 10.4 and platelet count of 191 sodium was 132 potassium 3.5 chloride 92 BUN 25 creatinine 3.34 glucose 125 normal liver enzymes with slightly elevated alkaline phosphatase and normal lipase, EKG done in the emergency room revealed atrial fibrillation with nonspecific ST and T wave abnormalities, patient was admitted to telemetry floor for further evaluation and treatment echocardiogram and carotid Doppler were ordered, cardiology consultation and nephrology consultation were requested. Patient was seen and examined on the telemetry floor, she is complaining of nausea, and generalized weakness, and dizziness otherwise she denies any complaints at this time there is no fever or chills, no headache no chest pain no shortness of breath no cough no vomiting no diarrhea no blood in the stools no burning with urination no frequency or urgency and no hematuria. On 05/18/2020 patient was seen and examined on the medical floor she is alert and oriented 3 in no apparent distress, she is complaining of nausea and occasional vomiting there is no fever or chills no headache or dizziness, no chest pain no shortness of breath no cough there is mild discomfort in the abdomen no diarrhea no blood in the stools no burning with urination no frequency or urgency and no hematuria. Abdomen x-ray is showing evidence of partial small bowel obstruction at this time patient will be kept nothing by mouth consultation for Dr. Vuong was initiated patient is well known to him he operated on her abdomen in the past. n 05/19/2020 patient was seen and examined on the medical floor she is alert and oriented 3 in no distress at this time she has NG tube in to suction she is feeling better with less abdominal pain otherwise she denies any complaints there is no fever or chills no headache or dizziness no chest pain no shortness of breath no cough no nausea or vomiting no burning with urination no frequency or urgency and no hematuria On 05/20/2020 patient is alert and oriented 3. Patient having low blood pressure and elevated heart rate. Patient has been ordered to transfer to the ICU. ICU nurse currently at bedside and midline has been placed. Critical care doctor Jen has ordered patient to be started on Levophed for pressure support at this time. Lactic acid did come back slightly elevated at 2.1. Blood cultures have been ordered Dr. Berman has been consulted. Blood pressure has im proved to 120s. Patient remains with NG tube dissection surgery is following. Per nephrology plans for hemodialysis today due to low blood pressure. Patient will be transferred to the intensive care unit for closer monitoring critical care and infectious disease consult placed at this time patient is alert and oriented. Patient reports that she did feel out of it when her pressure was low but has improved. Patient denies any chest pain or shortness of breath. Patient denies nausea vomiting or diarrhea. Patient denies any urinary burning or frequency. Per urology services also consulted and patient started on Zosyn. On 05/21/2020 patient was seen and examined in the ICU she is alert and oriented 3 in no apparent distress she is receiving hemodialysis at this time, NG tube is in to suction, she is complaining of pain in her hips otherwise she denies any complaints there is no fever or chills no headache or dizziness no chest pain no shortness of breath no cough no nausea or vomiting no abdominal pain no diarrhea no blood in the stools no burning with urination no frequency or urgency and no hematuria On 05/22/2020 patient remains in the intensive care unit alert and oriented currently getting hemodialysis. Patient remains on Levophed for pressure support. Potassium low at 2.7 placed per protocol per nursing staff. This time patient denies chest pain or shortness breath. Patient denies nausea vomiting or diarrhea. Patient denies any urinary burning or frequency. On 05/23/2020 patient was seen and examined in the intensive care unit, she is alert and oriented 3 in no apparent distress she is answering questions appropriately, NG tube has been removed, she states that she is passing some gas, no bowel movements, she is still complaining of some abdominal discomfort and pain otherwise she denies any complaints there is no fever or chills no headache or dizziness no chest pain no shortness of breath no cough no nausea or vomiting no diarrhea no blood in the stools no burning with urination no frequency or urgency and no hematuria On 05/24/2020 patient was seen and examined in the ICU she is alert and oriented 3 in no distress there is no fever or chills no headache or dizziness no chest pain no shortness of breath no cough no nausea or vomiting no abdominal pain no diarrhea no blood in the stools no burning with urination no frequency or urge ncy and no hematuria NG tube has been removed shouldn't is receiving clear liquid diet she has passed some gas but had no bowel movement yet she is feeling better she is maintained on oxygen via nasal cannula and tolerating well. On 05/25/2020 patient was seen and examined in the ICU she is alert and oriented 3 in no apparent distress, she is complaining of generalized weakness otherwise she denies any complaints at this time there is no fever or chills no headache or dizziness no chest pain no shortness of breath no cough no nausea or vomiting no abdominal pain no diarrhea and no urinary symptoms. On 05/26/2020 patient was seen and examined in the ICU she is alert and oriented in no distress she is maintained on oxygen via nasal cannula she is still on a small dose of Levophed for pressure support, there is no fever or chills no headache or dizziness no chest pain no shortness of breath no cough no nausea or vomiting no abdominal pain no diarrhea no burning with urination no frequency or urgency and no hematuria. On 05/27/2020 patient is alert and oriented x3. Currently resting comfortably in ICU getting hemodlysis. Per nursing staff patient has been of levophed for the past couple of hours. Patient denies any chest pain or shortness of breath. Denies any urinary burning or frequency. denies any nausea or vomiting. On 05/28/2020 patient was seen and examined in the ICU she is alert and oriented 3 in no apparent distress there is no fever or chills no headache or dizziness no chest pain no shortness of breath no cough no nausea or vomiting no abdominal pain no diarrhea no blood in the stools no burning with urination no frequency or urgency and no hematuria. Patient is doing better and was cleared to be transferred to a medical floor. On 05/29/2020 patient was seen and examined in the ICU she is alert and oriented 3 in no distress there is no fever or chills no headache or dizziness no chest pain no shortness of breath no cough no nausea or vomiting no abdominal pain no diarrhea and no urinary symptoms. Plenty of severe weakness with inability to stand or walk, she underwent hemodialysis this morning. On 05/30/2020 patient was seen and examined on the medical floor she is alert and oriented 3 in no apparent distress she is not maintained on any oxygen at this time she is complaining of severe weakness with inability to stand or walk otherwise she denies any complaints there is no fever or chills no headache or dizziness no chest pain no shortness of breath no cough no nausea or vomiting no abdominal pain no diarrhea no blood in the stools no burning with urination no frequency or urgency and no hematuria. Patient is tolerating diet well. On 05/31/2020 patient is alert and oriented 3 resting comfortably in bed. Patient received hemodialysis tomorrow. Blood pressures have improved. This time patient denies chest pain or shortness breath. Patient denies nausea vomiting or diarrhea. Patient denies any urinary burning or frequency On 06/01/2020 patient was seen and examined on the medical floor she is alert responsive in no apparent distress she is still having significant weakness and inability to stand or walk so far she has been resisting going to any rehab place and wanted to go home she was counseled in length with her family that patient is not able to go home at this point due to high risk of fall now she is agreeable to go to [facility] rehab a consultation for Dr. Reynoso was initiated Objective - Vital Signs Vital signs: Vital Signs Temp 98.6 F 06/01/20 16:18 Pulse 98 06/01/20 16:18 Resp 18 06/01/20 16:18 BP 120/62 06/01/20 16:18 Pulse Ox 94 L 06/01/20 14:42 Intake & Output 05/31/20 06/01/20 06/01/20 18:59 06:59 18:59 Intake Total 400 100 Output Total 0 250 1500 Balance 400 -150 -1500 Weight 92.5 kg Intake: Oral 400 100 Output: Urine 0 250 Hemodialysis 1500 Other: Voiding Method Bedpan Bedpan # Voids 1 1 1 # Bowel Movements 2 1 ABP, PAP, CO, CI - Last Documented Arterial Blood Pressure 106/50 - Exam in general patient is alert and oriented 3 in no apparent distress HEENT head normocephalic and atraumatic Neck is supple no JVD no goiter no lymphadenopathy Chest exam reveals a few scattered crackles bilaterally no wheezing Cardiac exam reveals regular heart sounds S1 and S2 no gallops no murmurs Abdomen is soft with tenderness in the epigastric area no organomegaly no palpable masses was normal bowel sounds Extremity exam reveals 1+ edema bilaterally no cyanosis or clubbing Neurological examination reveals no gross focal deficit - Labs CBC & Chem 7: 06/01/20 06:25 06/01/20 06:25 Labs: Abnormal Lab Results - Last 24 Hours (Table) 05/31/20 06/01/20 06/01/20 Range/Units 20:08 06:25 06:25 WBC 15.8 H (3.8-10.6) k/uL RBC 2.72 L (3.80-5.40) m/uL Hgb 9.8 L (11.4-16.0) gm/dL Hct 32.9 L (34.0-46.0) % MCV 120.7 H (80.0-100.0) fL MCH 36.1 H (25.0-35.0) pg MCHC 29.9 L (31.0-37.0) g/dL RDW 16.1 H (11.5-15.5) % Neutrophils # 13.7 H (1.3-7.7) k/uL Macrocytosis Marked A Carbon Dioxide 21.4 L (21.6-31.8) mmol/L BUN 50.0 H (9.0-27.0) mg/dL Creatinine 2.9 H (0.6-1.5) mg/dL Est GFR (CKD-EPI)AfAm 16.2 L (60.0-200.0) Est GFR (CKD-EPI)NonAf 14.0 L (60.0-200.0) Glucose 130 H (70-110) mg/dL POC Glucose (mg/dL) 183 H (75-99) mg/dL Calcium 8.0 L (8.7-10.3) mg/dL Alkaline Phosphatase 187 H (41-126) U/L Total Protein 5.0 L (6.2-8.2) g/dL Albumin 2.90 L (3.80-4.90) g/dL Albumin/Globulin Ratio 1.38 L (1.60-3.17) g/dL 06/01/20 06/01/20 06/01/20 Range/Units 06:39 11:29 16:39 WBC (3.8-10.6) k/uL RBC (3.80-5.40) m/uL Hgb (11.4-16.0) gm/dL Hct (34.0-46.0) % MCV (80.0-100.0) fL MCH (25.0-35.0) pg MCHC (31.0-37.0) g/dL RDW (11.5-15.5) % Neutrophils # (1.3-7.7) k/uL Macrocytosis Carbon Dioxide (21.6-31.8) mmol/L BUN (9.0-27.0) mg/dL Creatinine (0.6-1.5) mg/dL Est GFR (CKD-EPI)AfAm (60.0-200.0) Est GFR (CKD-EPI)NonAf (60.0-200.0) Glucose (70-110) mg/dL POC Glucose (mg/dL) 109 H 139 H 108 H (75-99) mg/dL Calcium (8.7-10.3) mg/dL Alkaline Phosphatase (41-126) U/L Total Protein (6.2-8.2) g/dL Albumin (3.80-4.90) g/dL Albumin/Globulin Ratio (1.60-3.17) g/dL Assessment and Plan Plan: 1. Partial mechanical small bowel obstruction with symptoms of nausea vomiting and generalized weakness and dizziness, cause is unclear, will check abdomen ultrasound. Surgical surfaces are following continue NG tube for decompression per surgical services. 2. Underlying history of end-stage renal disease on hemodialysis, nephrology consultation requested 3. Underlying history of chronic systolic congestive heart failure without evidence of exacerbation at this time. 2-D echo completed showing EF of 50-55%. Cardiology services consulted 4. Underlying history of chronic persistent atrial fibrillation 5. Underlying history of pulmonary hypertension 6. Underlying history of valvular heart disease 7. underlying history of diabetes mellitus 8. Hypotension. Blood pressure dropping to the 70s. Patient received 2 IV boluses. Patient has been ordered to transfer to intensive care unit and Levophed has been ordered per critical care. 9. Sepsis with Elevated lactic acid. Lactic acid 2.1. Patient started on Zosyn, blood culture ordered and infectious disease product development consultant, urinalysis is positive for urinary tract infection urine culture is positive for E. coli blood culture negative so far. 10. Hypokalemia correcteded Patient was transferred to the intensive care unit yesterday Critical care, infectious disease, nephrology, cardiology and surgical services following Patient started on IV Zosyn and blood culture ordered Prognosis is guarded due to age and multiple underlying morbidities.
[2020-06-01 21:13] LABS: Glucose,Whole Blood 173 mg/dL (75-99)
[2020-06-02] MEDS: SODIUM CHLORIDE 0.9% 1,000 ML IV SCH (03:59)
--- NOTE | 2020-06-02 06:13 | P.CONS ---
History of Present Illness - Chief Complaint Medical debility - History of Present Illness I had the opportunity to see patient for inpatient rehab consultation with regard to medical debility. She was admitted to [facility] May 16 with shortness of breath, dizziness, lightheadedness, weakness, nausea and emesis and known end-stage renal failure requiring dialysis. Seen in consultation by cardiology for atrial fibrillation as well as pulmonary and Dr. Berman for the shortness of breath. Chest x-ray followed. CT of abdomen and pelvis demonstrates fluid-filled loops consistent with partial obstruction. Abdominal x-ray with dilated loops. Abdominal ultrasound with renal disease. Carotid Doppler negative. PT and OT both report two-person total assistance for any mobility or self-care. Previous functional history as elicited from patient: 85-year-old right-handed white female who is lives in one floor home. Kids take turns taking care of her. The kids do the cooking, laundry, driving and assist patient with bath and dressing. Patient ambulates without device. PMD Dr. Nathan. Denies tobacco or alcohol. Review of Systems Review of systems: ENT: Denies sneezes or discharge. Eyes: Denies discharge or photophobia. Cardiac: Denies chest pain or palpitation. Pulmonary: Mild shortness of breath. Breast: Denies discharge or lumps. Gastrointestinal: Denies nausea, emesis, constipation, diarrhea. Genitourinary: Denies discharge or frequency. Musculoskeletal: Denies muscle or bone aches. Neurologic: Generalized weakness. Endocrine: Denies shakes or sweats. Oncology: Denies cancers. Dermatologic: Denies rash, itching, pruritus. ALLERGY/immunology: Denies sneezes, rashes. 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 left hip replacement, LEFT breast biopsy, darcy filter rt leg, biopsy of right nostril, biopsy rt breast, right chest dialysis cath Past Anesthesia/Blood Transfusion Reactions: No Reported Reaction Past Psychological History: No Psychological Hx Reported Smoking Status: Former smoker Past Alcohol Use History: None Reported Additional Past Alcohol Use History / Comment(s): smoked 1 pkg from 1961 to 1971 Past Drug Use History: None Reported - Past Family History Mother Family Medical History: No Reported History Additional Family Medical History / Comment(s): Family states pt's mother " of pneumonia". Father Family Medical History: Diabetes Mellitus Medications and Allergies Home Medications Medication Instructions Recorded Confirmed Type Linagliptin [Tradjenta] 5 mg PO DAILY@1500 01/22/14 05/17/20 History Omeprazole [PriLOSEC] 20 mg PO DAILY@0700 01/22/14 05/17/20 History allopurinoL [Zyloprim] 200 mg PO DAILY@0800 01/22/14 05/17/20 History Docusate Sodium [Stool Softener] 100 mg PO BID@0900,199902/22/14 05/17/20 History Garlic 1 tab PO BID@0900,199902/22/14 05/17/20 History Brinzolamide/Brimonidine Tart 1 drop BOTH EYES BID@07,199905/11/17 05/17/20 History [Simbrinza 1%-0.2% Eye Drops] Vit C/E/Zn/Coppr/Lutein/Zeaxan 1 cap PO BID@0900,199912/03/17 05/17/20 History [Preservision Areds 2 Softgel] Cholecalciferol (Vitamin D3) 2,000 unit PO DAILY@0800 02/10/18 05/17/20 History [Vitamin D3] Wheat Dextrin [Benefiber] 1 packet PO DAILY@0800 02/10/18 05/17/20 History Midodrine [ProAmatine] 10 mg PO TID@0700,1500,2200 04/10/18 05/17/20 History Rivaroxaban [Xarelto] 10 mg PO DAILY@0800 04/10/18 05/17/20 History Metoprolol Tartrate [Lopressor] 25 mg PO DAILY@1500 06/15/18 05/17/20 History Metoprolol Tartrate [Lopressor] 50 mg PO BID@0700,2200 09/18/18 05/17/20 History Ondansetron [Zofran] 4 mg PO Q12H PRN 09/18/18 05/17/20 History Calcium Acetate [PhosLo] 1,334 mg PO TID@0800,1200,1600 05/17/20 05/17/20 History Torsemide [Demadex] 20 mg PO DAILY@0800 05/17/20 05/17/20 History traMADol HCL 50 mg PO Q6H PRN 05/17/20 05/17/20 History Allergies Allergy/AdvReac Type Severity Reaction Status Date / Time atorvastatin calcium Allergy Unknown Verified 05/17/20 10:14 [From Lipitor] codeine Allergy Unknown Verified 05/17/20 10:14 [From Tylenol-Codeine #3] adhesive tape AdvReac Intermediate Unknown Verified 05/17/20 10:14 hydrocodone AdvReac Vomiting Verified 05/17/20 10:14 Physical Exam Vitals: Vital Signs Temp Pulse Resp BP Pulse Ox 06/02/20 02:15 97.3 F L 64 92/75 96 06/01/20 19:45 97.5 F L 99 102/61 99 06/01/20 16:18 98.6 F 98 18 120/62 06/01/20 14:42 97.9 F 88 18 97/59 94 L 06/01/20 07:45 18 06/01/20 07:00 97.8 F 100 18 138/82 97 Intake and Output 06/01/20 06/01/20 06/02/20 14:59 22:59 06:59 Output Total 1500 Balance -1500 Output: Hemodialysis 1500 Other: Voiding Method Bedpan # Voids 1 1 1 # Bowel Movements 1 1 1 Weight 92.5 kg Skin: Atrophic, intact. General: Morbidly obese build and comfortable appearance. Head: Normocephalic, atraumatic. Eyes: Symmetric. Pupils equal round. Ears: Symmetric. Hearing within normal limits. Mouth: Clear. Neck: Supple. Carotid without bruit. Cardiac: Regular rate and rhythm. Lungs: Clear anteriorly and posteriorly. Abdomen: Soft active nontender. Obese. Extremities: Normal tone. Obese. Neurological: Mental status: Alert, cooperative, pleasant. Cranial nerves: Symmetric facial tone and trapezius. Motor: Poor elevation of arms off the bed and unable to move legs in bed. Sensation: Intact throughout. DTRs: Symmetric and equal throughout. Mobility: Requires physical assist for bed mobility. Results CBC & Chem 7: 06/01/20 06:25 06/01/20 06:25 Labs: Abnormal Lab Results - Last 24 Hours (Table) 06/01/20 06/01/20 06/01/20 Range/Units 06:25 06:25 06:39 WBC 15.8 H (3.8-10.6) k/uL RBC 2.72 L (3.80-5.40) m/uL Hgb 9.8 L (11.4-16.0) gm/dL Hct 32.9 L (34.0-46.0) % MCV 120.7 H (80.0-100.0) fL MCH 36.1 H (25.0-35.0) pg MCHC 29.9 L (31.0-37.0) g/dL RDW 16.1 H (11.5-15.5) % Neutrophils # 13.7 H (1.3-7.7) k/uL Macrocytosis Marked A Carbon Dioxide 21.4 L (21.6-31.8) mmol/L BUN 50.0 H (9.0-27.0) mg/dL Creatinine 2.9 H (0.6-1.5) mg/dL Est GFR (CKD-EPI)AfAm 16.2 L (60.0-200.0) Est GFR (CKD-EPI)NonAf 14.0 L (60.0-200.0) Glucose 130 H (70-110) mg/dL POC Glucose (mg/dL) 109 H (75-99) mg/dL Calcium 8.0 L (8.7-10.3) mg/dL Alkaline Phosphatase 187 H (41-126) U/L Total Protein 5.0 L (6.2-8.2) g/dL Albumin 2.90 L (3.80-4.90) g/dL Albumin/Globulin Ratio 1.38 L (1.60-3.17) g/dL 06/01/20 06/01/20 06/01/20 Range/Units 11:29 16:39 21:01 WBC (3.8-10.6) k/uL RBC (3.80-5.40) m/uL Hgb (11.4-16.0) gm/dL Hct (34.0-46.0) % MCV (80.0-100.0) fL MCH (25.0-35.0) pg MCHC (31.0-37.0) g/dL RDW (11.5-15.5) % Neutrophils # (1.3-7.7) k/uL Macrocytosis Carbon Dioxide (21.6-31.8) mmol/L BUN (9.0-27.0) mg/dL Creatinine (0.6-1.5) mg/dL Est GFR (CKD-EPI)AfAm (60.0-200.0) Est GFR (CKD-EPI)NonAf (60.0-200.0) Glucose (70-110) mg/dL POC Glucose (mg/dL) 139 H 108 H 173 H (75-99) mg/dL Calcium (8.7-10.3) mg/dL Alkaline Phosphatase (41-126) U/L Total Protein (6.2-8.2) g/dL Albumin (3.80-4.90) g/dL Albumin/Globulin Ratio (1.60-3.17) g/dL Assessment and Plan (1) Atrial fibrillation with RVR Current Visit: Yes Status: Acute Code(s): I48.91 - UNSPECIFIED ATRIAL FIBRILLATION SNOMED Code(s): 908142471305965 (2) Small bowel obstruction Current Visit: Yes Status: Acute Code(s): K56.69 - OTHER INTESTINAL OBSTRUCTION * DO NOT USE * SNOMED Code(s): 733030874 Plan: Impression: 1. Medical debility. 2. Partial bowel obstruction. 3. Atrial fibrillation with RVR. 4. Nausea and emesis. 5. Morbid obesity. Comments and plan: At this time PT and OT are ongoing. Patient currently two- person total assistance having therapy done to her. Rehab prognosis guarded. Currently would require 24 hour care multiple persons.
[2020-06-02 06:42] LABS: Glucose,Whole Blood 136 mg/dL (75-99)
[2020-06-02 06:53] LABS: Anisocytosis Slight; Basophils % (A) 0 %; Eosinophils % (A) 0 %; HCT 28.2 % (34.0-46.0); HGB 8.6 gm/dL (11.4-16.0); Hypochromasia Marked; Lymphocytes # (A) 0.7 k/uL (1.0-4.8); Lymphocytes % (A) 5 %; MCH 38.1 pg (25.0-35.0); MCHC 30.5 g/dL (31.0-37.0); MCV 124.6 fL (80.0-100.0); Mean Platelet Volume 8.6; Monocytes # (A) 0.4 k/uL (0-1.0); Monocytes % (A) 3 %; Neutrophils # (A) 12.4 k/uL (1.3-7.7); Neutrophils % (A) 90 %; Platelet Count 183 k/uL (150-450); RBC 2.27 m/uL (3.80-5.40); RDW 16.6 % (11.5-15.5); WBC 13.7 k/uL (3.8-10.6)
[2020-06-02 07:07] LABS: Macrocytosis Marked
[2020-06-02 07:12] LABS: Anion Gap 12.2 mmol/L (4.00-12.00); BUN/Creat Ratio 16.84 Ratio (12.00-20.00); Calcium 7.8 mg/dL (8.7-10.3); Carbon Dioxide 20.8 mmol/L (21.6-31.8); Non-African American GFR(CKD) 23.3 (60.0-200.0); Potassium 4.3 mmol/L (3.5-5.5)
[2020-06-02 07:35] VITALS: RESP 16
[2020-06-02] MEDS: predniSONE 20 MG TAB PO SCH (08:06)
[2020-06-02] MEDS: CEFDINIR 300 MG CAP PO SCH (08:06)
[2020-06-02] MEDS: MIDODRINE 5 MG TAB PO SCH ×3 (08:06→17:27)
[2020-06-02] MEDS: AMIODARONE 200 MG TAB PO SCH (08:06)
[2020-06-02] MEDS: METOPROLOL TARTRATE 25 MG TAB PO SCH (08:06)
[2020-06-02] MEDS: PANTOPRAZOLE 40 MG TABLET PO SCH (08:06)
[2020-06-02] MEDS: NYSTATIN 100,000 UNIT/ML SUSP 500,000 UNIT/5 ML CUP PO SCH ×3 (08:07→17:25)
[2020-06-02] MEDS: INSULIN ASPART (NovoLOG) 100 UNIT/ML VIAL SQ SCH ×3 (08:07→17:26)
[2020-06-02] MEDS: BENEFIBER PO SCH (08:07)
[2020-06-02] MEDS: TORSEMIDE 20 MG TAB PO SCH (08:08)
[2020-06-02] MEDS: RIVAROXABAN 10 MG TAB PO SCH (08:10)
[2020-06-02] MEDS: BRIMONIDINE TARTRATE 0.2% DROPS 5 ML BTL BOTH EYES SCH (08:12)
[2020-06-02] MEDS: DORZOLAMIDE HCL 2% DROPS 10 ML BTL BOTH EYES SCH (08:12)
[2020-06-02 09:21] LABS: African American GFR (CKD) 25.4 (60.0-200.0); Albumin 2.5 g/dL (3.80-4.90); Albumin/Globulin Ratio 1.32 (1.60-3.17); Anion Gap 9.7 mmol/L (4.00-12.00); Calcium 7.6 mg/dL (8.7-10.3); Carbon Dioxide 21.3 mmol/L (21.6-31.8); Globulin 1.9 g/dL (1.6-3.3); Non-African American GFR(CKD) 21.9 (60.0-200.0); Potassium 4.7 mmol/L (3.5-5.5); Total Bilirubin 0.7 mg/dL (0.3-1.2); Total Protein 4.4 g/dL (6.2-8.2)
[2020-06-02 11:36] LABS: Glucose,Whole Blood 172 mg/dL (75-99)
--- NOTE | 2020-06-02 14:59 | P.PN ---
<RafaHina - Last Filed: 06/02/20 14:53> Subjective Progress Note Date: 06/02/20 CHIEF COMPLAINT: Abdominal pain with nausea and vomiting HISTORY OF PRESENT ILLNESS: Patient being followed for ileus. She denies any abdominal pain. She had a bowel movement this morning. Denies any nausea or vomiting. She is tolerating diet. Afebrile WBC 13.7 Hgb 8.6 PHYSICAL EXAM: VITAL SIGNS: Reviewed. GENERAL: Well-developed in no acute distress. HEENT: No sclera icterus. Extraocular movements grossly intact. Moist buccal mucosa. Head is atraumatic, normocephalic. ABDOMEN: Soft nondistended Nontender NEUROLOGIC: Alert and oriented3. Cranial nerves II through XII grossly intact. ASSESSMENT: 1. Ileus PLAN: -Continue Regular diet -Possible discharge tomorrow to [facility] Phys[facility] Road Inspector note has been reviewed by physician. Signing provider agrees with the documented findings, assessment, and plan of care. Objective - Vital Signs Vital signs: Vital Signs Temp 97.7 F 06/02/20 07:00 Pulse 100 06/02/20 07:00 Resp 16 06/02/20 07:00 BP 103/69 06/02/20 07:00 Pulse Ox 96 06/02/20 07:00 Intake & Output 06/01/20 06/02/20 06/02/20 18:59 06:59 18:59 Output Total 1500 Balance -1500 Weight 92.5 kg Output: Hemodialysis 1500 Other: Voiding Method Bedpan Bedpan # Voids 1 1 1 # Bowel Movements 1 1 1 ABP, PAP, CO, CI - Last Documented Arterial Blood Pressure 106/50 - Labs CBC & Chem 7: 06/02/20 06:35 06/02/20 06:35 Labs: Abnormal Lab Results - Last 24 Hours (Table) 06/01/20 06/01/20 06/01/20 Range/Units 06:25 16:39 21:01 WBC (3.8-10.6) k/uL RBC (3.80-5.40) m/uL Hgb (11.4-16.0) gm/dL Hct (34.0-46.0) % MCV (80.0-100.0) fL MCH (25.0-35.0) pg MCHC (31.0-37.0) g/dL RDW (11.5-15.5) % Neutrophils # (1.3-7.7) k/uL Lymphocytes # (1.0-4.8) k/uL Macrocytosis Carbon Dioxide 21.4 L (21.6-31.8) mmol/L Anion Gap (4.00-12.00) mmol/L BUN 50.0 H (9.0-27.0) mg/dL Creatinine 2.9 H (0.6-1.5) mg/dL Est GFR (CKD-EPI)AfAm 16.2 L (60.0-200.0) Est GFR (CKD-EPI)NonAf 14.0 L (60.0-200.0) Glucose 130 H (70-110) mg/dL POC Glucose (mg/dL) 108 H 173 H (75-99) mg/dL Calcium 8.0 L (8.7-10.3) mg/dL Alkaline Phosphatase 187 H (41-126) U/L Total Protein 5.0 L (6.2-8.2) g/dL Albumin 2.90 L (3.80-4.90) g/dL Albumin/Globulin Ratio 1.38 L (1.60-3.17) g/dL 06/01/20 06/02/20 06/02/20 Range/Units 21:40 06:35 06:35 WBC 13.7 H (3.8-10.6) k/uL RBC 2.27 L (3.80-5.40) m/uL Hgb 8.6 L (11.4-16.0) gm/dL Hct 28.2 L (34.0-46.0) % MCV 124.6 H (80.0-100.0) fL MCH 38.1 H (25.0-35.0) pg MCHC 30.5 L (31.0-37.0) g/dL RDW 16.6 H (11.5-15.5) % Neutrophils # 12.4 H (1.3-7.7) k/uL Lymphocytes # 0.7 L (1.0-4.8) k/uL Macrocytosis Marked A Carbon Dioxide 20.8 L 21.3 L (21.6-31.8) mmol/L Anion Gap 12.20 H (4.00-12.00) mmol/L BUN 32.0 H 36.0 H (9.0-27.0) mg/dL Creatinine 1.9 H 2.0 H (0.6-1.5) mg/dL Est GFR (CKD-EPI)AfAm 27.0 L 25.4 L (60.0-200.0) Est GFR (CKD-EPI)NonAf 23.3 L 21.9 L (60.0-200.0) Glucose 227 H 144 H (70-110) mg/dL POC Glucose (mg/dL) (75-99) mg/dL Calcium 7.8 L 7.6 L (8.7-10.3) mg/dL Alkaline Phosphatase 162 H (41-126) U/L Total Protein 4.4 L (6.2-8.2) g/dL Albumin 2.50 L (3.80-4.90) g/dL Albumin/Globulin Ratio 1.32 L (1.60-3.17) g/dL 06/02/20 06/02/20 Range/Units 06:40 11:34 WBC (3.8-10.6) k/uL RBC (3.80-5.40) m/uL Hgb (11.4-16.0) gm/dL Hct (34.0-46.0) % MCV (80.0-100.0) fL MCH (25.0-35.0) pg MCHC (31.0-37.0) g/dL RDW (11.5-15.5) % Neutrophils # (1.3-7.7) k/uL Lymphocytes # (1.0-4.8) k/uL Macrocytosis Carbon Dioxide (21.6-31.8) mmol/L Anion Gap (4.00-12.00) mmol/L BUN (9.0-27.0) mg/dL Creatinine (0.6-1.5) mg/dL Est GFR (CKD-EPI)AfAm (60.0-200.0) Est GFR (CKD-EPI)NonAf (60.0-200.0) Glucose (70-110) mg/dL POC Glucose (mg/dL) 136 H 172 H (75-99) mg/dL Calcium (8.7-10.3) mg/dL Alkaline Phosphatase (41-126) U/L Total Protein (6.2-8.2) g/dL Albumin (3.80-4.90) g/dL Albumin/Globulin Ratio (1.60-3.17) g/dL <Teodoro Vuong - Last Filed: 06/02/20 16:30> Subjective As above. Patient doing well today. Tolerating diet. She did have a bowel movement. Plans are underway for discharge today to rehab. Objective - Vital Signs Vital signs: Vital Signs Temp 97.4 F L 06/02/20 15:00 Pulse 89 06/02/20 15:00 Resp 16 06/02/20 15:00 BP 103/70 06/02/20 15:00 Pulse Ox 95 06/02/20 15:00 Intake & Output 06/01/20 06/02/20 06/02/20 18:59 06:59 18:59 Output Total 1500 Balance -1500 Weight 92.5 kg Output: Hemodialysis 1500 Other: Voiding Method Bedpan Bedpan # Voids 1 1 1 # Bowel Movements 1 1 1 ABP, PAP, CO, CI - Last Documented Arterial Blood Pressure 106/50 - Labs CBC & Chem 7: 06/02/20 06:35 06/02/20 06:35 Labs: Abnormal Lab Results - Last 24 Hours (Table) 06/01/20 06/01/20 06/01/20 Range/Units 16:39 21:01 21:40 WBC (3.8-10.6) k/uL RBC (3.80-5.40) m/uL Hgb (11.4-16.0) gm/dL Hct (34.0-46.0) % MCV (80.0-100.0) fL MCH (25.0-35.0) pg MCHC (31.0-37.0) g/dL RDW (11.5-15.5) % Neutrophils # (1.3-7.7) k/uL Lymphocytes # (1.0-4.8) k/uL Macrocytosis Carbon Dioxide 20.8 L (21.6-31.8) mmol/L Anion Gap 12.20 H (4.00-12.00) mmol/L BUN 32.0 H (9.0-27.0) mg/dL Creatinine 1.9 H (0.6-1.5) mg/dL Est GFR (CKD-EPI)AfAm 27.0 L (60.0-200.0) Est GFR (CKD-EPI)NonAf 23.3 L (60.0-200.0) Glucose 227 H (70-110) mg/dL POC Glucose (mg/dL) 108 H 173 H (75-99) mg/dL Calcium 7.8 L (8.7-10.3) mg/dL Alkaline Phosphatase (41-126) U/L Total Protein (6.2-8.2) g/dL Albumin (3.80-4.90) g/dL Albumin/Globulin Ratio (1.60-3.17) g/dL 06/02/20 06/02/20 06/02/20 Range/Units 06:35 06:35 06:40 WBC 13.7 H (3.8-10.6) k/uL RBC 2.27 L (3.80-5.40) m/uL Hgb 8.6 L (11.4-16.0) gm/dL Hct 28.2 L (34.0-46.0) % MCV 124.6 H (80.0-100.0) fL MCH 38.1 H (25.0-35.0) pg MCHC 30.5 L (31.0-37.0) g/dL RDW 16.6 H (11.5-15.5) % Neutrophils # 12.4 H (1.3-7.7) k/uL Lymphocytes # 0.7 L (1.0-4.8) k/uL Macrocytosis Marked A Carbon Dioxide 21.3 L (21.6-31.8) mmol/L Anion Gap (4.00-12.00) mmol/L BUN 36.0 H (9.0-27.0) mg/dL Creatinine 2.0 H (0.6-1.5) mg/dL Est GFR (CKD-EPI)AfAm 25.4 L (60.0-200.0) Est GFR (CKD-EPI)NonAf 21.9 L (60.0-200.0) Glucose 144 H (70-110) mg/dL POC Glucose (mg/dL) 136 H (75-99) mg/dL Calcium 7.6 L (8.7-10.3) mg/dL Alkaline Phosphatase 162 H (41-126) U/L Total Protein 4.4 L (6.2-8.2) g/dL Albumin 2.50 L (3.80-4.90) g/dL Albumin/Globulin Ratio 1.32 L (1.60-3.17) g/dL 06/02/20 Range/Units 11:34 WBC (3.8-10.6) k/uL RBC (3.80-5.40) m/uL Hgb (11.4-16.0) gm/dL Hct (34.0-46.0) % MCV (80.0-100.0) fL MCH (25.0-35.0) pg MCHC (31.0-37.0) g/dL RDW (11.5-15.5) % Neutrophils # (1.3-7.7) k/uL Lymphocytes # (1.0-4.8) k/uL Macrocytosis Carbon Dioxide (21.6-31.8) mmol/L Anion Gap (4.00-12.00) mmol/L BUN (9.0-27.0) mg/dL Creatinine (0.6-1.5) mg/dL Est GFR (CKD-EPI)AfAm (60.0-200.0) Est GFR (CKD-EPI)NonAf (60.0-200.0) Glucose (70-110) mg/dL POC Glucose (mg/dL) 172 H (75-99) mg/dL Calcium (8.7-10.3) mg/dL Alkaline Phosphatase (41-126) U/L Total Protein (6.2-8.2) g/dL Albumin (3.80-4.90) g/dL Albumin/Globulin Ratio (1.60-3.17) g/dL Assessment and Plan (1) Ileus Current Visit: Yes Status: Acute Code(s): K56.7 - ILEUS, UNSPECIFIED SNOMED Code(s): 367739876
--- NOTE | 2020-06-02 15:05 | PN ---
PROGRESS NOTE Patient is seen for followup for end-stage renal disease. She tolerated her treatment okay yesterday. Her blood pressure was low; however, it improved post second dose of midodrine and we had about 1500 mL of fluid removed. PHYSICAL EXAMINATION: Today, patient is comfortable. She has been confused on and off. Blood pressure today was 103/69, heart rate 100 per minute, patient is afebrile. Examination of the heart S1, S2. Examination of lungs, bilateral breath sounds are heard. Abdomen is soft, nontender. Examination of the lower extremities shows edema 2+ bilaterally upper and lower extremities. PENCILLER exam grossly intact. However, patient is confused. LABS: Show sodium of 140, potassium 4.7, serum creatinine at 2.0, hemoglobin 8.6 g/dL. ASSESSMENT: 1. End-stage renal disease, on hemodialysis on a Monday, Monday, Monday schedule. 2. Generalized debility. 3. Small bowel obstruction, currently improved. 4. Volume overload, continue to increase UF with dialysis. 5. Generalized debility. 6. Atrial fibrillation with RVR now with controlled ventricular response. PLAN: Hemodialysis in a.m. Continue to use midodrine. Maintain UF 1.5-2 L as tolerated. MMODL / IJN: [id number] /
[2020-06-02 15:29] VITALS: BP 103/70; PULSE 89; TEMP 97.4
--- NOTE | 2020-06-02 16:11 | P.DS ---
Providers Date of admission: 05/18/20 10:13 Expected date of discharge: 06/02/20 Attending physician: Elyse Owen Consults: 05/16/20 23:42 Consult Physician Urgent Consulting Provider: Hanna Escobar Consult Reason/Comments: Chronic renal failure Do you want consulting provider notified?: Yes 05/17/20 08:20 Consult Physician Routine Consulting Provider: Hanna Escobar Consult Reason/Comments: CKD Do you want consulting provider notified?: Yes 05/18/20 14:01 Consult Physician Routine Consulting Provider: Teodoro Vuong Consult Reason/Comments: possible small bowel obstruction Do you want consulting provider notified?: Yes 05/20/20 12:09 Consult Physician Urgent Consulting Provider: Amish Torres Consult Reason/Comments: ICU management Do you want consulting provider notified?: Yes 05/20/20 12:56 Consult Physician Routine Consulting Provider: Beau Berman Consult Reason/Comments: elevated lactic acid Do you want consulting provider notified?: Yes 06/01/20 17:12 Consult Physician Routine Consulting Provider: Ovidio Lanier Consult Reason/Comments: possible rehab admission Do you want consulting provider notified?: Yes Primary care physician: Elyse Owen [facility] Course: Diagnoses on discharge: 1. Partial mechanical small bowel obstruction with symptoms of nausea vomiting and generalized weakness and dizziness, cause is unclear, will check abdomen ultrasound. Surgical surfaces are following continue NG tube for decompression per surgical services. 2. Underlying history of end-stage renal disease on hemodialysis, nephrology consultation requested 3. Underlying history of chronic systolic congestive heart failure without evidence of exacerbation at this time. 2-D echo completed showing EF of 50-55%. Cardiology services consulted 4. Underlying history of chronic persistent atrial fibrillation 5. Underlying history of pulmonary hypertension 6. Underlying history of valvular heart disease 7. underlying history of diabetes mellitus 8. Hypotension. Blood pressure dropping to the 70s. Patient received 2 IV boluses. Patient has been ordered to transfer to intensive care unit and Levophed has been ordered per critical care. 9. Sepsis with Elevated lactic acid. Lactic acid 2.1. Patient started on Zosyn, blood culture ordered and infectious disease senior recruitment consultant, urinalysis is positive for urinary tract infection urine culture is positive for E. coli blood culture negative so far. 10. Hypokalemia correcteded Hospital Course: Trina Carrillo, is an 85-year-old female who presented to [facility] emergency room with a chief complaint of dizziness and lightheadedness and generalized weakness, patient has a known history of end-stage renal disease on hemodialysis Monday and Monday, chronic systolic congestive heart failure, chronic atrial fibrillation, pulmonary hypertension, and valvular heart disease with aortic stenosis and severe tricuspid regurgitation, severe mitral regurgitation. Patient stated that her symptoms started when she returned from hemodialysis on Monday she also started developing some nausea and vomiting. She was also complaining of some episodes of chest pain and she decided to come to emergency room. patient was evaluated in emergency room her vital examination on presentation reveals a temperature of 98 pulse 52 respiration 20 blood pressure 94/63 pulse ox 98% on room air, laboratory data was significant for slightly elevated white blood count of 12.5 hemoglobin 10.4 and platelet count of 191 sodium was 132 potassium 3.5 chloride 92 BUN 25 creatinine 3.34 glucose 125 normal liver enzymes with slightly elevated alkaline phosphatase and normal lipase, EKG done in the emergency room revealed atrial fibrillation with nonspecific ST and T wave abnormalities, patient was admitted to telemetry floor for further evaluation and treatment echocardiogram and carotid Doppler were ordered, cardiology consultation and nephrology consultation were requested. Patient was seen and examined on the telemetry floor, she is complaining of nausea, and generalized weakness, and dizziness otherwise she denies any complaints at this time there is no fever or chills, no headache no chest pain no shortness of breath no cough no vomiting no diarrhea no blood in the stools no burning with urination no frequency or urgency and no hematuria. On 05/18/2020 patient was seen and examined on the medical floor she is alert and oriented 3 in no apparent distress, she is complaining of nausea and occ asional vomiting there is no fever or chills no headache or dizziness, no chest pain no shortness of breath no cough there is mild discomfort in the abdomen no diarrhea no blood in the stools no burning with urination no frequency or urgency and no hematuria. Abdomen x-ray is showing evidence of partial small bowel obstruction at this time patient will be kept nothing by mouth consultation for Dr. Vuong was initiated patient is well known to him he operated on her abdomen in the past. n 05/19/2020 patient was seen and examined on the medical floor she is alert and oriented 3 in no distress at this time she has NG tube in to suction she is feeling better with less abdominal pain otherwise she denies any complaints there is no fever or chills no headache or dizziness no chest pain no shortness of breath no cough no nausea or vomiting no burning with urination no frequency or urgency and no hematuria On 05/20/2020 patient is alert and oriented 3. Patient having low blood pressure and elevated heart rate. Patient has been ordered to transfer to the ICU. ICU nurse currently at bedside and midline has been placed. Critical care doctor Jen has ordered patient to be started on Levophed for pressure support at this time. Lactic acid did come back slightly elevated at 2.1. Blood cultures have been ordered Dr. Berman has been consulted. Blood pressure has improved to 120s. Patient remains with NG tube dissection surgery is following. Per nephrology plans for hemodialysis today due to low blood pressure. Patient will be transferred to the intensive care unit for closer monitoring critical care and infectious disease consult placed at this time patient is alert and oriented. Patient reports that she did feel out of it when her pressure was low but has improved. Patient denies any chest pain or shortness of breath. Patient denies nausea vomiting or diarrhea. Patient denies any urinary burning or frequency. Per urology services also consulted and patient started on Zosyn. On 05/21/2020 patient was seen and examined in the ICU she is alert and oriented 3 in no apparent distress she is receiving hemodialysis at this time, NG tube is in to suction, she is complaining of pain in her hips otherwise she denies any complaints there is no fever or chills no headache or dizziness no chest pain no shortness of breath no cough no nausea or vomiting no abdominal pain no diarrhea no blood in the stools no burning with urination no frequency or urgency and no hematuria On 05/22/2020 patient remains in the intensive care unit alert and oriented currently getting hemodialysis. Patient remains on Levophed for pressure support. Potassium low at 2.7 placed per protocol per nursing staff. This time patient denies chest pain or shortness breath. Patient denies nausea vomiting or diarrhea. Patient denies any urinary burning or frequency. On 05/23/2020 patient was seen and examined in the intensive care unit, she is alert and oriented 3 in no apparent distress she is answering questions appropriately, NG tube has been removed, she states that she is passing some gas, no bowel movements, she is still complaining of some abdominal discomfort and pain otherwise she denies any complaints there is no fever or chills no headache or dizziness no chest pain no shortness of breath no cough no nausea or vomiting no diarrhea no blood in the stools no burning with urination no frequency or urgency and no hematuria On 05/24/2020 patient was seen and examined in the ICU she is alert and oriented 3 in no distress there is no fever or chills no headache or dizziness no chest pain no shortness of breath no cough no nausea or vomiting no abdominal pain no diarrhea no blood in the stools no burning with urination no frequency or urgency and no hematuria NG tube has been removed shouldn't is receiving clear liquid diet she has passed some gas but had no bowel movement yet she is feeling better she is maintained on oxygen via nasal cannula and tolerating well. On 05/25/2020 patient was seen and examined in the ICU she is alert and oriented 3 in no apparent distress, she is complaining of generalized weakness otherwise she denies any complaints at this time there is no fever or chills no headache or dizziness no chest pain no shortness of breath no cough no nausea or vomiting no abdominal pain no diarrhea and no urinary symptoms. On 05/26/2020 patient was seen and examined in the ICU she is alert and oriented in no distress she is maintained on oxygen via nasal cannula she is still on a small dose of Levophed for pressure support, there is no fever or chills no headache or dizziness no chest pain no shortness of breath no cough no nausea or vomiting no abdominal pain no diarrhea no burning with urination no frequency or urgency and no hematuria. On 05/27/2020 patient is alert and oriented x3. Currently resting comfortably in ICU getting hemodlysis. Per nursing staff patient has been of levophed for the past couple of hours. Patient denies any chest pain or shortness of breath. Denies any urinary burning or frequency. denies any nausea or vomiting. On 05/28/2020 patient was seen and examined in the ICU she is alert and oriented 3 in no apparent distress there is no fever or chills no headache or dizziness no chest pain no shortness of breath no cough no nausea or vomiting no abdominal pain no diarrhea no blood in the stools no burning with urination no frequency or urgency and no hematuria. Patient is doing better and was cleared to be transferred to a medical floor. On 05/29/2020 patient was seen and examined in the ICU she is alert and oriented 3 in no distress there is no fever or chills no headache or dizziness no chest pain no shortness of breath no cough no nausea or vomiting no abdominal pain no diarrhea and no urinary symptoms. Plenty of severe weakness with inability to stand or walk, she underwent hemodialysis this morning. On 05/30/2020 patient was seen and examined on the medical floor she is alert and oriented 3 in no apparent distress she is not maintained on any oxygen at this time she is complaining of severe weakness with inability to stand or walk otherwise she denies any complaints there is no fever or chills no headache or dizziness no chest pain no shortness of breath no cough no nausea or vomiting no abdominal pain no diarrhea no blood in the stools no burning with urination no frequency or urgency and no hematuria. Patient is tolerating diet well. On 05/31/2020 patient is alert and oriented 3 resting comfortably in bed. Patient received hemodialysis tomorrow. Blood pressures have improved. This time patient denies chest pain or shortness breath. Patient denies nausea vomiting or diarrhea. Patient denies any urinary burning or frequency On 06/01/2020 patient was seen and examined on the medical floor she is alert responsive in no apparent distress she is still having significant weakness and inability to stand or walk so far she has been resisting going to any rehab place and wanted to go home she was counseled in length with her family that patient is not able to go home at this point due to high risk of fall now she is agreeable to go to [facility] rehab a consultation for Dr. Reynoso was initiated Patient Condition at Discharge: Stable Plan - Discharge Summary Discharge Rx Participant: No New Discharge Prescriptions: New Darbepoetin Gustavo [Aranesp] 40 mcg SQ Q7D syringe Amiodarone [Cordarone] 200 mg PO BID tab predniSONE [Deltasone] 20 mg PO DAILY tab Metoprolol Tartrate [Lopressor] 25 mg PO BID tab Nystatin 100,000 Unit/ml Susp [Mycostatin Oral Susp] 500,000 unit PO QID ml Cefdinir [Omnicef] 300 mg PO DAILY 5 Days #10 cap Continue Linagliptin [Tradjenta] 5 mg PO DAILY@1500 allopurinoL [Zyloprim] 200 mg PO DAILY@0800 Omeprazole [PriLOSEC] 20 mg PO DAILY@0700 Docusate Sodium [Stool Softener] 100 mg PO BID@899,1999 Brinzolamide/Brimonidine Tart [Simbrinza 1%-0.2% Eye Drops] 1 drop BOTH EYES BID@699,1999 Cholecalciferol (Vitamin D3) [Vitamin D3] 2,000 unit PO DAILY@0800 Wheat Dextrin [Benefiber] 1 packet PO DAILY@0800 Rivaroxaban [Xarelto] 10 mg PO DAILY@0800 Midodrine [ProAmatine] 10 mg PO TID@0700,1500,2200 Ondansetron [Zofran] 4 mg PO Q12H PRN PRN Reason: Nausea Torsemide [Demadex] 20 mg PO DAILY@0800 Calcium Acetate [PhosLo] 1,334 mg PO TID@0800,1200,1600 traMADol HCL 50 mg PO Q6H PRN PRN Reason: Pain Discontinued Garlic 1 tab PO BID@899,1999 Vit C/E/Zn/Coppr/Lutein/Zeaxan [Preservision Areds 2 Softgel] 1 cap PO BID@899,1999 Metoprolol Tartrate [Lopressor] 25 mg PO DAILY@1500 Metoprolol Tartrate [Lopressor] 50 mg PO BID@0700,2200 Discharge Medication List Linagliptin [Tradjenta] 5 mg PO DAILY@1500 01/22/14 [History] Omeprazole [PriLOSEC] 20 mg PO DAILY@0700 01/22/14 [History] allopurinoL [Zyloprim] 200 mg PO DAILY@0801/22/14 [History] Docusate Sodium [Stool Softener] 100 mg PO BID@09,199902/22/14 [History] Brinzolamide/Brimonidine Tart [Simbrinza 1%-0.2% Eye Drops] 1 drop BOTH EYES BID@699,199905/11/17 [History] Cholecalciferol (Vitamin D3) [Vitamin D3] 2,000 unit PO DAILY@0800 02/10/18 [History] Wheat Dextrin [Benefiber] 1 packet PO DAILY@0800 02/10/18 [History] Midodrine [ProAmatine] 10 mg PO TID@0700,1500,2200 04/10/18 [History] Rivaroxaban [Xarelto] 10 mg PO DAILY@0800 04/10/18 [History] Ondansetron [Zofran] 4 mg PO Q12H PRN 09/18/18 [History] Calcium Acetate [PhosLo] 1,334 mg PO TID@0800,1200,1600 05/17/20 [History] Torsemide [Demadex] 20 mg PO DAILY@0800 05/17/20 [History] traMADol HCL 50 mg PO Q6H PRN 05/17/20 [History] Amiodarone [Cordarone] 200 mg PO BID tab 06/02/20 [Rx] Cefdinir [Omnicef] 300 mg PO DAILY 5 Days #10 cap 06/02/20 [Rx] Darbepoetin Gustavo [Aranesp] 40 mcg SQ Q7D syringe 06/02/20 [Rx] Metoprolol Tartrate [Lopressor] 25 mg PO BID tab 06/02/20 [Rx] Nystatin 100,000 Unit/ml Susp [Mycostatin Oral Susp] 500,000 unit PO QID ml 06/02/20 [Rx] predniSONE [Deltasone] 20 mg PO DAILY tab 06/02/20 [Rx] Follow up Appointment(s)/Referral(s): [facility], [NON-STAFF] - Elyse Owen MD [Primary Care Provider] - 1-2 days
[2020-06-02 17:09] LABS: Glucose,Whole Blood 171 mg/dL (75-99)
== END 2020-06-02 19:25 | DRG 388 ==
LOC: EC 18:53 → 4SSUR 23:41 → 3SCARD 05-17 02:16 → OBSVTOIN 05-18 10:13 → 2SICU 05-20 13:13 → 4SSUR 05-29 21:34
PROVIDERS: ADMIT Internal Medicine; ATTEND Internal Medicine
PROC: 4A133J1 Monitoring of Arterial Pulse, Peripheral, Percutaneous Approach (ICD-10-PCS; 2020-05-20 13:40)
PROC: 03HY32Z Insertion of Monitoring Device into Upper Artery, Percutaneous Approach (ICD-10-PCS; 2020-05-20 13:40)
PROC: 4A133B1 Monitoring of Arterial Pressure, Peripheral, Percutaneous Approach (ICD-10-PCS; 2020-05-20 13:40)
PROC: 02HV33Z Insertion of Infusion Device into Superior Vena Cava, Percutaneous Approach (ICD-10-PCS; principal; 2020-05-21)
PROC: 3E033XZ Introduction of Vasopressor into Peripheral Vein, Percutaneous Approach (ICD-10-PCS; principal; 2020-05-21)
PROC: 5A1D70Z Performance of Urinary Filtration, Intermittent, Less than 6 Hours Per Day (ICD-10-PCS; 2020-05-29)
DX: K56.690 Other partial intestinal obstruction (principal); A41.51 Sepsis due to Escherichia coli [E. coli]; N18.6 End stage renal disease; R65.21 Severe sepsis with septic shock; N39.0 Urinary tract infection, site not specified; E27.40 Unspecified adrenocortical insufficiency; E87.4 Mixed disorder of acid-base balance; I13.2 Hypertensive heart and chronic kidney disease with heart failure and with stage 5 chronic kidney disease, or end stage renal disease; I48.19 Other persistent atrial fibrillation; I50.22 Chronic systolic (congestive) heart failure; N17.9 Acute kidney failure, unspecified; D63.1 Anemia in chronic kidney disease; E11.22 Type 2 diabetes mellitus with diabetic chronic kidney disease; E66.01 Morbid (severe) obesity due to excess calories; Z68.37 Body mass index [BMI] 37.0-37.9, adult; E78.5 Hyperlipidemia, unspecified; E86.0 Dehydration; E86.1 Hypovolemia; E87.6 Hypokalemia; E88.09 Other disorders of plasma-protein metabolism, not elsewhere classified; I08.3 Combined rheumatic disorders of mitral, aortic and tricuspid valves; I25.10 Atherosclerotic heart disease of native coronary artery without angina pectoris; I27.20 Pulmonary hypertension, unspecified; Z20.828 Contact with and (suspected) exposure to other viral communicable diseases; E83.9 Disorder of mineral metabolism, unspecified; R13.10 Dysphagia, unspecified; Z79.01 Long term (current) use of anticoagulants; Z79.84 Long term (current) use of oral hypoglycemic drugs; Z79.899 Other long term (current) drug therapy; Z83.3 Family history of diabetes mellitus; Z86.711 Personal history of pulmonary embolism; Z86.718 Personal history of other venous thrombosis and embolism; Z87.891 Personal history of nicotine dependence; Z90.49 Acquired absence of other specified parts of digestive tract; Z90.710 Acquired absence of both cervix and uterus; Z91.81 History of falling; Z96.642 Presence of left artificial hip joint; Z99.2 Dependence on renal dialysis; M16.11 Unilateral primary osteoarthritis, right hip; Z83.6 Family history of other diseases of the respiratory system; R53.81 Other malaise; H35.30 Unspecified macular degeneration; H40.9 Unspecified glaucoma; Z88.5 Allergy status to narcotic agent; Z88.8 Allergy status to other drugs, medicaments and biological substances
CPT/HCPCS: 36410; 36415; 71045; 74018; 74176; 76700; 76770; 76937; 80048; 80053; 81001; 82533; 83036; 83605; 83690; 83735; 84100; 84132; 84443; 84484; 85025; 86706; 87040; 87077; 87086; 87186; 87340; 87635; 90935; 93005; 93306; 93880; 96361; 96374; 96375; 96376; 99284